=== PATIENT | female | born 1955 | race Caucasian/White ===

== ENCOUNTER 2024-01-05 10:19 | Outpatient (AMB) | payer OTHER, SELFPAY ==
--- NOTE | 2024-01-05 10:21 | AM.OFFWIN_ITS ---
Intake Vital Signs 01/05/24 10:23 Height 5 ft 2 in Weight 192 lb BMI 35.1 BP 124/82 Blood Pressure Location Lt brachial Position Sitting Pulse 74 Pulse Source Pulse Oximeter Temp 98.4 F Temp Source Oral Pulse Oximetry (%) 98 Oxygen Delivery Method Room Air Intake Visit Reasons: WOOL [employer] LT ankle injury Intake Note: pt here c/o LT ankle injury. Slipped and fell in [employer] yesterday Patient Tobacco Use Status: Never used Tobacco Allergies No Known Allergies [No Known Allergies*] Allergy (Verified 01/05/24 10:21) Do you need a note to return to daycare/school/sports/work: No HPI HPI Comments History of Present Illness Details Patient is a 68-year-old female presents complaining of left ankle pain. She states she slipped on some water in her kitchen last night and fell but was able to immediately get up and walk on the foot with no problem. She states about an hour later it started becoming painful and more swollen. She does state that at her baseline she has bilateral lymphedema. She states this morning it is increasingly more painful and difficult to walk on and she is worried that it is fractured. She fractured her right ankle last year when she slipped on some ice. [facility] Social History Patient Tobacco Use Status: Never used Tobacco Review of Systems Const All systems reviewed & are unremarkable except as noted in HPI and below Physical Exam Vital Signs: Last Vital Signs Temp 98.4 F 01/05/24 10:23 Pulse 74 01/05/24 10:23 BP 124/82 01/05/24 10:23 Pulse Ox 98 01/05/24 10:23 Oxygen Delivery Method Room Air 01/05/24 10:23 BMI result Body Mass Index 35.1 Const General: cooperative, healthy appearing, comfortable and no acute distress Orientation/consciousness: patient oriented x3 Limitations: ambulation with cane HEENT Head: Yes normal to inspection Resp Effort & Inspection: normal respiratory effort and able to speak in complete sentences Neuro General: patient oriented x3 Extrem Left lower extremity: ankle Details: tenderness Location: of the anterior talo fibular ligament, swelling Details: laterally and anteriorly and abnormal ROM Details: pain with active ROM Details: with plantar flexion and pain with passive ROM Details: with plantar flexion; no warmth, no abrasions, no lacerations and no ecchymosis Assessment & Plan Assessment & Plan (1) Left ankle swelling: Code(s): M25.472 - Effusion, left ankle Plan: see below (2) Left ankle pain: Code(s): M25.572 - Pain in left ankle and joints of left foot Qualifiers: Chronicity: acute Qualified Code(s): M25.572 - Pain in left ankle and joints of left foot Plan: see below (3) Moderate left ankle sprain: Code(s): S93.402A - Sprain of unspecified ligament of left ankle, initial encounter Qualifiers: Encounter type: initial encounter Qualified Code(s): S93.402A - Sprain of unspecified ligament of left ankle, initial encounter Plan: see below Plan X-ray appears negative for fracture, wrapped with VALENTIN wrap, recommended she use ice rest and keep it wrapped as much as possible, she was walking well with her cane and the Valentin wrap. Recommended she follow up with her PCP if no improvement in symptoms in the next week or 2 did tell her it could take 3-4 weeks+ to be back at baseline. Orders: Orders XR ankle LT min 3V Today M25.472 - Effusion, left ankle, M25.572 - Pain in left ankle and joints of left foot, S93.402A - Sprain of unspecified ligament of left ankle, initial encounter Coding Level of Care Code New Pt Level 4 (12731) Diagnoses Left ankle swelling M25.472 Acute left ankle pain M25.572 Chronicity: acute Moderate left ankle sprain, initial encounter S93.402A Encounter type: initial encounter
--- OUTSIDE RECORDS SUMMARY | 2024-01-05 10:21 | XMS_ITS | Continuity of Care Document ---
Author Organization [facility] Address [address] [place] [address]- Care Team Providers Care Cardiovascular Surgeon Name Role Phone Solis Roman MD Primary Care Physician [phone] [facility]counter [facility] Date(s): 12/22/21 - 01/21/22 [facility] [address], [place] [address] Allergies, Adverse Reactions, Alerts No Known Allergies Immunizations Given and Recorded Vaccine Date Status Refusal Reason zoster vaccine, inactivated 11/18/21 Recorded zoster vaccine, inactivated 06/23/20 Recorded influenza virus vaccine, inactivated 04/19/21 Josué rded influenza virus vaccine, inactivated 1 05/03/19 Gi serafin influenza virus vaccine, inactivated 2 03/09/18 Gi serafin influenza virus vaccine, inactivated 03/10/16 Josué rded SARS-CoV-2 (COVID-19) mRNA BNT-162b2 vac 04/19/21 Recorded SARS-CoV-2 (COVID-19) mRNA-1273 vaccine 09/19/20 G iven SARS-CoV-2 (COVID-19) mRNA-1273 vaccine 08/22/20 G iven pneumococcal 23-valent vaccine 3 04/25/20 Given Influenza Virus Vaccine (oldterm) 03/20/20 Recorde d pneumococcal 13-valent vaccine 03/09/18 Given tetanus/diphtheria/pertussis, acel(Tdap) 4 12/23/16 Given 1Result Comment: [id number] 2Result Comment: [03/09/2018] [id number] 3Result Comment: [id number] 4Result Comment: [12/23/2016] given without incident.....vs Medications acetaminophen 325 mg oral tablet 650 mg, By Mouth, Every 6 hours, May take OTC follow directions on bottle not to exceed 4000 mg/day, Refills 0, Maintenance, 05/08/20 7:54:00 EST, Partial fill upon patient request Start Date: 05/08/20 Status: Ordered cevimeline 30 mg oral capsule 1 capsule = 30 mg, By Mouth, 3 times a day, PRN Other, dry mouth, 0 Refills, Maintenance, 08/09/14 15:13:58 EST Start Date: 08/09/14 Status: Ordered Compression Stockings See Instructions, # 2 each, Refills 3, Tot. Refills 3, Maintenance, Medication: _ Support stockings-Thigh High Custom CC2 Compression factor 30-40 Diagnose lymphoedema, 04/17/21 22:13:00 EDT, Supply,160, cm, 05/09/20 16:02:00 EST, Height, 86.5, kg, 1... Start Date: 04/17/21 Status: Ordered Controlled substance agreement Controlled substance agreement, See Instructions, # 1 each, Refills 0, Tot. Refills 0, Maintenance,controlled substance agreement signed 08/30/14; preferred pharm:[facility]. dx: failed back sydrome, 08/30/14 10:48:33, Compound Start Date: 08/30/14 Status: Ordered doxepin 150 mg oral capsule 1 capsule, By Mouth, Daily at bedtime, # 90 capsule, 3 Refills, [id number], 160, cm, 06/22/21 15:54:00 EST, Height, 86.5, kg, 05/07/20 6:28:00 EST, Dry Weight Start Date: 07/21/21 Status: Ordered duloxetine 60 mg oral enteric coated capsule 1 capsule, By Mouth, Daily, # 90 capsule, 3 Refills, [id number], 160, cm, 08/31/21 15:19:00 EDT, Height, 86.5, kg, 05/07/20 6:28:00 EST, Dry Weight Start Date: 10/30/21 Status: Ordered gabapentin 800 mg oral tablet 1 tablet = 800 mg, By Mouth, 3 times a day, # 90 tablet, 11 Refills, Maintenance, 10/05/21 12:46:00EDT, Tablet, [facility]/pharmacy #[id number], Partial fill upon patient request if the prescription is for a schedule II opioid drug., 160, cm, 08/31/21 15:19:00 ED... Start Date: 10/05/21 Status: Ordered hydrALAZINE 25 mg oral tablet 25 mg, 1, tablet, By Mouth, 2 times a day, # 60 tablet, Refills 11, Tot. Refills 11, Maintenance, 08/03/21 14:23:00 EST, Route to Pharmacy Electronically, [facility]/pharmacy #[id number], Partial fill upon patient request if the prescription is for a schedule II o... Start Date: 08/03/21 Status: Ordered hydrochlorothiazide-triamterene 25 mg-37.5 mg oral capsule 1 capsule, By Mouth, Daily, # 30 capsule, 11 Refills, Maintenance, 06/22/21 16:39:00 EST, Capsule, [facility]/pharmacy #[id number], d/c hydrochlorothiazide, 1 capsule By Mouth Daily, 160, cm, 06/22/21 15:54:00 EST, Height, 86.5, kg, 05/07/20 6:28:00 EST, Dry Weight Start Date: 06/22/21 Status: Ordered Lymphedema clinic referral Lymphedema clinic referral, See Instructions, # 1 each, Refills 0, Tot. Refills 0, Maintenance, Please eval and treat for bilateral lower extremity edema, 01/25/14 16:02:15, Compound Start Date: 01/25/14 Status: Ordered Metoprolol Succinate ER 50 mg oral tablet, extended release 1 tablet, By Mouth, Daily, # 90 tablet, 3 Refills, Maintenance, 06/18/21 14:42:00 EST, [facility]/pharmacy#[id number], 160, cm, 06/18/21 14:17:00 EST, Height, 86.5, kg, 05/07/20 6:28:00 EST, Dry Weight Start Date: 06/18/21 Status: Ordered tiZANidine 2 mg oral tablet 4 mg, 2, tablet, By Mouth, Daily at bedtime, # 180 tablet, Refills 3, Tot. Refills 3, Maintenance, 01/19/22 11:02:00 EDT, Route to Pharmacy Electronically, [facility]/pharmacy #[id number], 160, cm, 08/31/21 15:19:00 EDT, Height, 86.5, kg, 05/07/20 6:28:00 EST, Dry... Start Date: 01/19/22 Stop Date: 01/14/23 Status: Ordered traZODone 50 mg oral tablet See Instructions, TAKE 1 TABLET BY MOUTH EVERYDAY AT BEDTIME, # 90 tablet, Refills 3, Tot. Refills 3, Maintenance, 08/03/21 14:24:00 EST, Instructions Replace Required Details, Route to Pharmacy Electronically, [facility]/pharmacy #[id number], 160, cm, 08/03/21 14... Start Date: 08/03/21 Status: Ordered valsartan 320 mg oral tablet 1 tablet = 320 mg, By Mouth, Daily, # 90 tablet, 3 Refills, Maintenance, 06/18/21 14:40:00 EST, Tablet, [facility]/pharmacy #[id number], this is a n inrease in dosage, 160, cm, 06/18/21 14:17:00 EST, Height, 86.5, kg, 05/07/20 6:28:00 EST, Dry Weight Start Date: 06/18/21 Status: Ordered Problem List Condition Effective Dates Status Health Status Inform ant Abdominal pain(Confirmed) Active Acute radial nerve palsy of right upper extremity also has moderate CTS(Confirmed) 01/05/17 Active Age-related macular degeneration(Confirmed) Active Anxiety(Confirmed) Active Knee pain(Confirmed) Active Atrial flutter s/p ablation 09/16/17(Confirmed) 09/17/17 Active Sleep-related hypoventilation(Confirmed) Active Chronic rhinitis allergic rh initis and hyperactive airways(Confirmed) 05/18/20 Active Constipation(Confirmed) Active DVT, lower extremity peerone al marysol provoked(Confirmed) 09/01/18 Active Macular degeneration of both eyes(Confirmed) Active Depression(Confirmed) Active Somnolence(Confirmed) 1 Active Drug therapy(Confirmed) Active Edema(Confirmed) Active Ex-cigarette smoker(Confirmed) Active Myofascial pain, diffuse(Confirmed) Active Limitation due to disability(Confirmed) 2 Active Drug or alcohol risk assessm ent or counseling(Confirmed) 3 Active S/p ablation of atrial flutter(Confirmed) 09/07/17 Active History of total knee replac ement, left(Confirmed) 4 05/31/13 Active History of macular degeneration(Confirmed) Active S/P tonsillectomy and adenoidectomy(Confirmed) Active Headache, chronic daily(Confirmed) Active History of lumbar spine surg filomena s/p lumbar decompression(Confirmed) 09/13/19 Active Status post shoulder surgery(Confirmed) 5 09/24/08 Active Hypertension(Confirmed) Active Hypogammaglobulinemia gets m onthly infusions(Confirmed) Active Lack of adequate sleep(Confirmed) Active Neck pain(Confirmed) Active Obese class I(Confirmed) Active Obesity(Confirmed) Active Obstructive sleep apnea(Confirmed) 6 Active Buttock pain, left(Confirmed) Active Atrial flutter, paroxysmal(Confirmed) Active Pes planus(Confirmed) Active Failed back syndrome(Confirmed) 7 Active Failed back surgical syndrome(Confirmed) 8 Active Urinary retention(Confirmed) Active Moderate somatic symptom dis order with predominant pain(Confirmed) Active Lumbar spinal stenosis L2-3(Confirmed) 10/07/17 Active Status post arthroscopy of shoulder(Confirmed) Active Vaginal pain(Confirmed) Active Venous (Peripheral) Insuffic iency, Unspecified(Confirmed) Active 1initial [place]: 17 on 08/09/14 2initial Oswestry Disability Index: 57% ( severe disability ) on 08/09/14; initial Neck Disability Index: 40% on 08/16/14 3SOAPP-R: 19 ON 08/09/14 4On 05/31/2013 underwent left total knee arthroplasty with computer navigation for osteoarthritis, left knee by Luis Higgins M.D. at [facility]. 5On 09/24/2008 underwent 1. Open decompression right shoulder (acromioplasty, release of coracoacromial ligament). 2. Distal clavicle excision. 3. Repair of massive markedly retracted posterosuperior cuff tear. 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 at [facility]. 6Polysomnogram performed on 08/17/2014 at [facility] revealed 1. Obstructive sleep apnea, moderate 2. Hypoventilation with sleep 7Surgical History Procedure/Surgical Profile 3 level Posterior fusion (84595) in 2013 at 58 Years. Spinal decompression (23459) in 2008 at 53 Years. Laminectomy with exploration and/or decompression of spinal cord and/or cauda equina, without facetectomy, foraminotomy or discectomy (eg, spinal stenosis), 1 or 2 vertebral segments; lumbar, except for spondylolisthesis (18604) in 1996 at 41 Years. SCS trial at [facility] complicated by early lead migration. Never had adequate trial. 8Surgical History Procedure/Surgical Profile 3 level Posterior fusion (21359) in 2013 at 58 Years. Spinal decompression (77876) in 2008 at 53 Years. Laminectomy with exploration and/or decompression of spinal cord and/or cauda equina, without facetectomy, foraminotomy or discectomy (eg, spinal stenosis), 1 or 2 vertebral segments; lumbar, except for spondylolisthesis (73405) in 1996 at 41 Years. SCS trial at [facility] complicated by early lead migration. Never had adequate trial. Social History Social History Type Response Smoking Status Former smoker, quit more than 30 days ago entered on: 12/01/18 Sex
--- OUTSIDE RECORDS SUMMARY | 2024-01-05 10:21 | XMS_ITS | Continuity of Care Document ---
Author Organization [facility] Address [address] [place] [address]- Care Team Providers Care Art Editor Name Role Phone Solis Roman MD Primary Care Physician [facility]): 03/21[facility]23 - 04/20/23 [facility] [address] [place], [place] [address] Allergies, Adverse Reactions, Alerts No Known Allergies Immunizations Given and Recorded Vaccine Date Status Refusal Reason influenza virus vaccine, inactivated 1 03/16/23 Re corded influenza virus vaccine, inactivated 04/08/22 Josué rded influenza virus vaccine, inactivated 04/19/21 Josué rded influenza virus vaccine, inactivated 2 05/03/19 Gi serafin influenza virus vaccine, inactivated 3 03/09/18 Gi serafin influenza virus vaccine, inactivated 03/10/16 Josué rded SARS-CoV-2 mRNA ([id number]) vax 04/08/22 Recorded zoster vaccine, inactivated 11/18/21 Recorded zoster vaccine, inactivated 06/23/20 Recorded SARS-CoV-2 (COVID-19) mRNA BNT-162b2 vac 04/19/21 Recorded SARS-CoV-2 (COVID-19) mRNA-1273 vaccine 09/19/20 G iven SARS-CoV-2 (COVID-19) mRNA-1273 vaccine 08/22/20 G iven pneumococcal 23-valent vaccine 4 04/25/20 Given Influenza Virus Vaccine (oldterm) 03/20/20 Recorde d pneumococcal 13-valent vaccine 03/09/18 Given tetanus/diphtheria/pertussis, acel(Tdap) 5 12/23/16 Given 1Result Comment: [facility] 2Result Comment: [id number] 3Result Comment: [03/09/2018] [id number] 4Result Comment: [id number] 5Result Comment: [12/23/2016] given without incident.....vs Medications acetaminophen [...] Custom CC2 Compression factor 30-40 Diagnose lymphoedema, 03/11/23 15:00:00 EDT, Supply Start Date: 03/11/23 Status: Ordered Controlled substance agreement Controlled substance agreement, See Instructions, # 1 each, Refills 0, Tot. Refills 0, Maintenance,controlled substance agreement signed 08/30/14; preferred pharm:[facility]. dx: failed back sydrome, 08/30/14 10:48:33, Compound Start Date: 08/30/14 Status: Ordered doxepin 150 mg oral capsule 1 capsule, By Mouth, Daily at bedtime, # 90 capsule, 3 Refills, 08/23/22 11:39:00 EST, [facility]/pharmacy#[id number], 160, cm, 08/31/21 15:19:00 EDT, Height Start Date: 08/23/22 Status: Ordered duloxetine 60 mg oral enteric coated capsule 1 capsule, By Mouth, Daily, REFILLS GOOD THRU 07/2023, # 90 capsule, 3 Refills, 07/27/22 15:27:00 EST, [facility]/pharmacy #[id number], 160, cm, 08/31/21 15:19:00 EDT, Height Start Date: 07/27/22 Status: Ordered gabapentin 800 mg oral tablet 1 tablet = 800 mg, By Mouth, 3 times a day, # 90 tablet, 11 Refills, Maintenance, 11/05/22 13:00:00EDT, Tablet, [facility]/pharmacy #[id number], Partial fill upon patient request if the prescription is for a schedule II opioid drug., 160, cm, 08/31/21 15:19:00 ED... Start Date: 11/05/22 Status: Ordered hydrALAZINE 25 mg oral tablet 25 mg, 1, tablet, By Mouth, 2 times a day, # 60 tablet, Refills 11, Tot. Refills 11, Maintenance, 08/13/22 9:21:00 EST, Route to Pharmacy Electronically, [facility]/pharmacy #[id number], Partial fill upon patientrequest if the prescription is for a schedule II op... Start Date: 08/13/22 Status: Ordered hydrochlorothiazide-triamterene 25 mg-37.5 mg oral capsule 1 capsule, By Mouth, Daily, # 90 capsule, 1 Refills, Maintenance, 02/02/23 9:30:00 EDT, [facility]/pharmacy #[id number], 90, 1 capsule By Mouth Daily, 160, cm, 08/31/21 15:19:00 EDT, Height Start Date: 02/02/23 Status: Ordered Lymphedema clinic referral Lymphedema clinic referral, See Instructions, # 1 each, Refills 0, Tot. Refills 0, Maintenance, Please eval and treat for bilateral lower extremity edema, 01/25/14 16:02:15, Compound Start Date: 01/25/14 Status: Ordered Metoprolol Succinate ER 50 mg oral tablet, extended release 1 tablet, By Mouth, Daily, # 90 tablet, 3 Refills, Maintenance, 09/21/22 13:56:00 EDT, [facility]/pharmacy#[id number], 160, cm, 08/31/21 15:19:00 EDT, Height Start Date: 09/21/22 Status: Ordered tiZANidine 2 mg oral tablet 4 mg, 2, tablet, By Mouth, Daily at bedtime, # 180 tablet, Refills 3, Tot. Refills 3, Maintenance, 03/15/23 12:53:00 EDT, Route to Pharmacy Electronically, [facility]/pharmacy #[id number], 160, cm, 08/31/21 15:19:00 EDT, Height Start Date: 03/15/23 Stop Date: 03/09/24 Status: Ordered traZODone 50 mg oral tablet See Instructions, TAKE 1 TABLET BY MOUTH EVERYDAY AT BEDTIME, # 90 tablet, Refills 0, Tot. Refills 0, Maintenance, 02/07/23 10:55:00 EDT, Instructions Replace Required Details, Route to Pharmacy Electronically, [facility]/pharmacy #[id number], 160, cm, 08/31/21 15... Start Date: 02/07/23 Status: Ordered valsartan 320 mg oral tablet 1 tablet, By Mouth, Daily, # 90 tablet, 1 Refills, Maintenance, 01/03/23 11:13:00 EDT, [facility]/pharmacy#[id number], 160, cm, 08/31/21 15:19:00 EDT, Height Start Date: 01/03/23 Status: Ordered Problem List Condition Confirmation Course Effective Dates Status Health Status Informant Abdominal pain Confirmed Active Acute radial nerve palsy of right upper extremity also has moderate CTS Confirmed 01/05/17 Active Age-related macular degeneration Confirmed Active Anxiety Confirmed Active Knee pain Confirmed Active Atrial flutter s/p ablation 09/16/17 Confirmed 09/17/17 Active Sleep-related hypoventilation Confirmed Active Chronic rhinitis allergic rhinitis and hyperactive airways Confirmed 05/18/20 Active Constipation Confirmed Active DVT, lower extremity peeroneal marysol provoked Confirmed 09/01/18 Active Macular degeneration of both eyes Confirmed Active Depression Confirmed Active Somnolence 1 Confirmed Active Drug therapy Confirmed Active Edema Confirmed Active Ex-cigarette smoker Confirmed Active Myofascial pain, diffuse Confirmed Active Limitation due to disability 2 Confirmed Active Drug or alcohol risk assessment or counseling 3 Confirmed Active S/p ablation of atrial flutter Confirmed 09/07/17 Active History of total knee replacement, left 4 Confirmed 05/31/13 Active History of macular degeneration Confirmed Active S/P tonsillectomy and adenoidectomy Confirmed Active Headache, chronic daily Confirmed Active History of lumbar spine surgery s/p lumbar decompression Confirmed 09/13/19 Active Status post shoulder surgery 5 Confirmed 09/24/08 Active Hypertension Confirmed Active Hypogammaglobulinemia gets monthly infusions Confirmed Active Lack of adequate sleep Confirmed Active Neck pain Confirmed Active Obese class I Confirmed Active Obesity Confirmed Active Obstructive sleep apnea 6 Confirmed Active Buttock pain, left Confirmed Active Atrial flutter, paroxysmal Confirmed Active Pes planus Confirmed Active Failed back syndrome 7 Confirmed Active Failed back surgical syndrome 8 Confirmed Active Urinary retention Confirmed Active Moderate somatic symptom disorder with predominant pain Confirmed Active Lumbar spinal stenosis L2-3 Confirmed 10/07/17 Active Status post arthroscopy of shoulder Confirmed Active Vaginal pain Confirmed Active Venous (Peripheral) Insufficiency, Unspecified Confirmed Active 1initial [place]: 17 on 08/09/14 2initial Oswestry Disability Index: 57% ( severe disability ) on 08/09/14; initial Neck Disability Index: 40% on 08/16/14 3SOAPP-R: 19 ON 08/09/14 4On 05/31/2013 underwent left total knee arthroplasty with computer navigation for osteoarthritis, left knee by Luis Higgins M.D. at [facility]. 5On 09/24/2008 underwent 1. Open decompression right shoulder (acromioplasty, release of coracoacromial ligament). 2. Distal clavicle excision. 3. Repair of massive markedly retracted posterosuperior cuff tear. 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 at [facility]. 6Polysomnogram performed on 08/17/2014 at [facility] revealed 1. Obstructive sleep apnea, moderate 2. Hypoventilation with sleep 7Surgical History Procedure/Surgical Profile 3 level Posterior fusion (80736) in 2013 at 58 Years. Spinal decompression (08252) in 2008 at 53 Years. Laminectomy with exploration and/or decompression of spinal cord and/or cauda equina, without facetectomy, foraminotomy or discectomy (eg, spinal stenosis), 1 or 2 vertebral segments; lumbar, except for spondylolisthesis (29124) in 1996 at 41 Years. SCS trial at [facility] complicated by early lead migration. Never had adequate trial. 8Surgical History Procedure/Surgical Profile 3 level Posterior fusion (06448) in 2013 at 58 Years. Spinal decompression (46722) in 2008 at 53 Years. Laminectomy with exploration and/or decompression of spinal cord and/or cauda equina, without facetectomy, foraminotomy or discectomy (eg, spinal stenosis), 1 or 2 vertebral segments; lumbar, except for spondylolisthesis (32353) in 1996 at 41 Years. SCS trial at [facility] complicated by early lead migration. Never had adequate trial. Social History Social History Type Response Smoking Status Former smoker, quit more than 30 days ago entered on: 12/01/18 Sex Patient Care team information Care Team Personnel Name: Luis Combs RN Position: [facility] RN Member Role: Primary Care Nurse Name: Solis Roman MD Position: [facility] Physician - Primary Care Member Role: PCP Address: Address: [address] [place] [address] Adult [place] [address]- Name: Aziza ZNEDEJAS, Loni Martinez Position: [facility] RN Member Role: Primary Care Nurse Name: Tk Mendoza RN Position: [facility] RN Member Role: Primary Care Nurse Care Team Related Persons Name: RANDY CAPUTO Address: [place] [address] Name: ERIN CHATTERJEE Address: [address] [place] [address] Name: CRISTA WEST Address: home [address] [place] [id number]
--- OUTSIDE RECORDS SUMMARY | 2024-01-05 10:21 | XMS_ITS | Continuity of Care Document ---
Author Organization [facility] Address [address] [place] [address]- Care Team Providers Care Human Services Manager Name Role Phone Solis Roman MD Primary Care Physician Encounter [facility] [place] Date(s): 10/06/23 - 10/13/23 [facility] [address] [place], [place] [address] Attending Physician: Solis Roman MD Allergies, Adverse Reactions, Alerts No Known Allergies Immunizations Given and Recorded Vaccine Date Status Refusal Reason SARS-CoV-2(COVID-19)mRNA-LNP vac([id number]) 04/11/23 Recorded influenza virus vaccine, inactivated 1 03/16/23 Re corded influenza virus vaccine, inactivated 04/08/22 Josué rded influenza virus vaccine, inactivated 04/19/21 Josué rded influenza virus vaccine, inactivated 2 05/03/19 Gi serafin influenza virus vaccine, inactivated 3 03/09/18 Gi serafin influenza virus vaccine, inactivated 03/10/16 Josué rded SARS-CoV-2 mRNA ([id number]) vax 04/08/22 Recorded zoster vaccine, inactivated 11/18/21 Recorded zoster vaccine, inactivated 06/23/20 Recorded SARS-CoV-2 (COVID-19) mRNA BNT-162b2 vac 04/19/21 Recorded SARS-CoV-2 (COVID-19) mRNA-1273 vaccine 09/19/20 G iven SARS-CoV-2 (COVID-19) mRNA-1273 vaccine 08/22/20 G iven pneumococcal 23-valent vaccine 4 04/25/20 Given Influenza Virus Vaccine (oldterm) 03/20/20 Recorde d pneumococcal 13-valent vaccine 03/09/18 Given tetanus/diphtheria/pertussis, acel(Tdap) 5 12/23/16 Given 1Result Comment: AMELIA 2Result Comment: [id number] 3Result Comment: [03/09/2018] [id number] 4Result Comment: [id number] 5Result Comment: [12/23/2016] given without incident.....vs Medications acetaminophen 325 mg oral tablet 650 mg, By Mouth, Every 6 hours, May take OTC follow directions on bottle not to exceed 3000 mg/day, Refills 0, Maintenance, 05/08/20 7:54:00 EST, Partial fill upon patient request Start Date: 05/08/20 Status: Ordered cevimeline 30 mg oral capsule 1 capsule = 30 mg, By Mouth, 3 times a day, PRN Other, dry mouth, 0 Refills, Maintenance, 08/09/14 15:13:58 EST Start Date: 08/09/14 Status: Ordered doxepin 100 mg oral capsule 1 capsule = 100 mg, By Mouth, Daily at bedtime, # 30 capsule, 2 Refills, Maintenance, 10/06/23 8:33:00 EDT, [facility]/pharmacy #[id number], Partial fill upon patient request if the prescription is for a scheduleII opioid drug., 157, cm, 10/06/23 8:12:00 EDT, Hei... Start Date: 10/06/23 Status: Ordered duloxetine 60 mg oral enteric coated capsule 1 capsule, By Mouth, Daily, REFILLS GOOD THRU 07/2023, # 90 capsule, 3 Refills, 07/26/23 10:44:00 EST, [facility]/pharmacy #[id number], 157, cm, 07/26/23 10:22:00 EST, Height, 86, kg, 05/10/23 11:11:00 EST, Dry Weight Start Date: 07/26/23 Status: Ordered fluticasone 50 mcg/inh nasal spray 2 sprays = 100 mcg, Nares, Both, Daily in AM, # 16 Gm, 0 Refills, Maintenance, 08/26/23 8:53:00 EST, [place], Partial fill upon patient request if the prescription is for a schedule II opioid drug. Start Date: 08/26/23 Status: Ordered gabapentin 800 mg oral tablet 1 tablet = 800 mg, By Mouth, 3 times a day, # 90 tablet, 0 Refills, Maintenance, 05/05/23 13:19:00 EST, Tablet, Partial fill upon patient request if the prescription is for a schedule II opioid drug. Start Date: 05/05/23 Status: Ordered Gamunex = 300 mg/kg, IV Infusion, every 4 weeks, 0 Refills, Maintenance, 05/05/23 13:20:00 EST, Partial fill upon patient request if the prescription is for a schedule II opioid drug. Start Date: 05/05/23 Status: Ordered hydrALAZINE 50 mg oral tablet 1 tablet = 50 mg, By Mouth, 2 times a day, # 180 tablet, 3 Refills, Maintenance, 07/26/23 10:42:00 EST, Tablet, [facility]/pharmacy #[id number], Partial fill upon patient request if the prescription is for a schedule II opioid drug., 157, cm, 07/26/23 10:22:00 EST... Start Date: 07/26/23 Stop Date: 07/20/24 Status: Ordered hydrochlorothiazide-triamterene 25 mg-37.5 mg oral capsule 1 capsule, By Mouth, Daily, # 90 capsule, 3 Refills, Maintenance, 07/26/23 10:42:00 EST, [id number], 90, 1 capsule By Mouth Daily, 157, cm, 07/26/23 10:22:00 EST, Height, 86, kg, 05/10/23 11:11:00 EST, Dry Weight Start Date: 07/26/23 Status: Ordered Metoprolol Succinate ER 25 mg oral tablet, extended release 1 tablet = 25 mg, By Mouth, Daily, take with the 50 mgs tablet of metoprolol to = 75 mgs, # 90 tablet, 3 Refills, Maintenance, 08/26/23 8:52:00 EST, ER Tablet, [id number], Partial fill upon patient request if the prescription is for a... Start Date: 08/26/23 Status: Ordered Metoprolol Succinate ER 50 mg oral tablet, extended release 1 tablet, By Mouth, Daily, # 90 tablet, 3 Refills, Maintenance, 07/26/23 10:44:00 EST, [id number], 157, cm, 07/26/23 10:22:00 EST, Height, 86, kg, 05/10/23 11:11:00 EST, Dry Weight Start Date: 07/26/23 Status: Ordered tiZANidine 2 mg oral tablet 4 mg, 2, tablet, By Mouth, Daily at bedtime, # 180 tablet, Refills 3, Tot. Refills 3, Maintenance, 10/06/23 8:32:00 EDT, Do Not Route Start Date: 10/06/23 Stop Date: 09/30/24 Status: Ordered traZODone 50 mg oral tablet 1, tablet, By Mouth, Daily at bedtime, # 90 tablet, Refills 3, Maintenance, 05/02/23 21:24:00 EST, Route to Pharmacy Electronically, [id number], 160, cm, 04/22/23 9:05:00 EDT, Height Start Date: 05/02/23 Status: Ordered valsartan 320 mg oral tablet See Instructions, TAKE 1 TABLET BY MOUTH EVERY DAY, # 90 tablet, 3 Refills, Maintenance, 09/26/23 23:22:00 EDT, [facility]/pharmacy #[id number], 157, cm, 08/26/23 8:33:00 EST, Height, 86, kg, 05/10/23 11:11:00 EST, Dry Weight Start Date: 09/26/23 Status: Ordered Problem List Condition Confirmation Course [...] sleep Confirmed Active Neck pain Confirmed Active Obesity Confirmed Active Obstructive sleep apnea 6 Confirmed Active Osteoarthritis of hip, left LEFT THR APRIL 2023 Confirmed 05/12/23 Active Buttock pain, left Confirmed Active Atrial flutter, paroxysmal Confirmed Active Pes planus Confirmed Active Failed back syndrome 7 Confirmed Active Failed back surgical syndrome 8 Confirmed Active Urinary retention Confirmed Active Severe obesity (BMI 35.0-39.9) with comorbidity Confirmed Active Moderate somatic symptom disorder with predominant pain Confirmed Active Lumbar spinal stenosis L2-3 Confirmed 10/07/17 Active Status post arthroscopy of shoulder Confirmed Active Vaginal pain Confirmed Active Venous (Peripheral) Insufficiency, Unspecified Confirmed Active 1initial [place]: 17 on 08/09/14 2initial Oswestry Disability Index: 57% ( severe disability ) on 08/09/14; initial Neck Disability Index: 40% on 08/16/14 3SOAPP-R: 19 ON 08/09/14 4On 05/31/2013 underwent left total knee arthroplasty with computer navigation for osteoarthritis, left knee by Luis Higgins M.D. at [facility]. 5On 09/24/2008 underwent 1. Open decompression right shoulder (acromioplasty, release of coracoacromial ligament). 2. Distal clavicle excision. 3. Repair of massive markedly retracted posterosuperior cuff tear. 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 at [facility]. 6Polysomnogram performed on 08/17/2014 at [facility] revealed 1. Obstructive sleep apnea, moderate 2. Hypoventilation with sleep 7Surgical History Procedure/Surgical Profile 3 level Posterior fusion (91402) in 2013 at 58 Years. Spinal decompression (45294) in 2008 at 53 Years. Laminectomy with exploration and/or decompression of spinal cord and/or cauda equina, without facetectomy, foraminotomy or discectomy (eg, spinal stenosis), 1 or 2 vertebral segments; lumbar, except for spondylolisthesis (26809) in 1996 at 41 Years. SCS trial at [facility] complicated by early lead migration. Never had adequate trial. 8Surgical History Procedure/Surgical Profile 3 level Posterior fusion (61692) in 2014 at 58 Years. Spinal decompression (74346) in 2008 at 53 Years. Laminectomy with exploration and/or decompression of spinal cord and/or cauda equina, without facetectomy, foraminotomy or discectomy (eg, spinal stenosis), 1 or 2 vertebral segments; lumbar, except for spondylolisthesis (84039) in 1996 at 41 Years. SCS trial at [facility] complicated by early lead migration. Never had adequate trial. Vital Signs Most recent to oldest [Reference Range]: 1 Height 157 cm (10/06/23 8:12 AM) Weight 87.5 kg (10/06/23 8:12 AM) Oxygen Saturation [94-100 %] 97 % (10/06/23 8:12 AM) Pulse Rate [55-90 bpm] 70 bpm (10/06/23 8:12 AM) Body Mass Index [18.5-24.99 kg/m2] 35.5 kg/m2 *>HHI* (10/06/23 8:12 AM) Blood Pressure [90-138/55-84 mm Hg] 124/ 70mm Hg (10/06/23 8:12 AM) Mode of Delivery (Oxygen) Room air (10/06/23 8:12 AM) Blood pressure sites Arm, left (10/06/23 8:12 AM) Weight Obtained Via Standing scale (10/06/23 8:12 AM) Social History Social History Type Response Smoking Status Former smoker, quit more than 30 days ago entered on: 12/01/18 Sex Patient Care team information Care Team Personnel Name: Luis Combs RN Position: [facility] RN Member Role: Primary Care Nurse Name: Solis Roman MD Position: [facility] Physician - Primary Care Member Role: PCP Address: Address: [address] [place] [address] Adult [facility] Pediatric Medicine [address] Name: Iris Al RN Position: S RN Member Role: Primary Care Nurse Name: Stacie Guardado RN Position: S RN Member Role: Primary Care Nurse Name: Tk Mendoza RN Position: S RN Member Role: Primary Care Nurse Care Team Related Persons Name: RANDY CAPUTO Address: [place] [address] Name: ERIN CHATTERJEE Address: home [address] [place] [address] Name: CRISTA WEST Address: home [address] [place] [address]
--- OUTSIDE RECORDS SUMMARY | 2024-01-05 10:21 | XMS_ITS | Continuity of Care Document ---
Author Organization [facility] Address [address] [place] [address]- Care Team Providers Care Dye Feeder Name Role Phone Solis Roman MD Primary Care Physician Encounter [facility] Date(s): 03/11/23 - 04/10/23 [facility] [address] [place], [place] [address] Allergies, Adverse Reactions, Alerts No Known Allergies Immunizations Given and Recorded Vaccine Date Status Refusal Reason influenza virus vaccine, inactivated 1 03/16/23 Re corded influenza virus vaccine, inactivated 04/08/22 Josué rded influenza virus vaccine, inactivated 04/19/21 Josué rded influenza virus vaccine, inactivated 2 05/03/19 Gi serafin influenza virus vaccine, inactivated 3 03/09/18 Gi serafin influenza virus vaccine, inactivated 03/10/16 Josué rded SARS-CoV-2 mRNA ([id number]) vax 04/08/22 Recorded zoster vaccine, inactivated 11/18/21 Recorded zoster vaccine, inactivated 06/23/20 Recorded SARS-CoV-2 (COVID-19) mRNA BNT-162b2 vac 04/19/21 Recorded SARS-CoV-2 (COVID-19) mRNA-1273 vaccine 09/19/20 G iven SARS-CoV-2 (COVID-19) mRNA-1273 vaccine 08/22/20 G iven pneumococcal 23-valent vaccine 4 04/25/20 Given Influenza Virus Vaccine (oldterm) 03/20/20 Recorde d pneumococcal 13-valent vaccine 03/09/18 Given tetanus/diphtheria/pertussis, acel(Tdap) 5 12/23/16 Given 1Result Comment: [facility] 2Result Comment: [id number] 3Result Comment: [03/09/2018] [id number] 4Result Comment: [id number] 5Result Comment: [12/23/2016] given without incident.....vs Medications [...] 0, Maintenance,controlled substance agreement signed 08/30/14; preferred pharm:[facility]. dx: failed back sydrome, 08/30/14 10:48:33, Compound Start Date: 08/30/14 Status: Ordered doxepin 150 mg oral capsule 1 capsule, By Mouth, Daily at bedtime, # 90 capsule, 3 Refills, 08/23/22 11:39:00 EST, [facility]/pharmacy#[id number], 160, cm, 08/31/21 15:19:00 EDT, Height Start Date: 08/23/22 Status: Ordered duloxetine 60 mg oral enteric coated capsule 1 capsule, By Mouth, Daily, REFILLS GOOD THRU 07/2023, # 90 capsule, 3 Refills, 07/27/22 15:27:00 EST, [facility]/pharmacy #[id number], 160, cm, 08/31/21 15:19:00 EDT, Height Start Date: 07/27/22 Status: Ordered gabapentin 800 mg oral tablet 1 tablet = 800 mg, By Mouth, 3 times a day, # 90 tablet, 11 Refills, Maintenance, 11/05/22 13:00:00EDT, Tablet, [id number], Partial fill upon patient request if the prescription is for a schedule II opioid drug., 160, cm, 08/31/21 15:19:00 ED... Start Date: 11/05/22 Status: Ordered hydrALAZINE 25 mg oral tablet 25 mg, 1, tablet, By Mouth, 2 times a day, # 60 tablet, Refills 11, Tot. Refills 11, Maintenance, 08/13/22 9:21:00 EST, Route to Pharmacy Electronically, [facility]/pharmacy #[id number], Partial fill upon patientrequest if the prescription is for a schedule II op... Start Date: 08/13/22 Status: Ordered hydrochlorothiazide-triamterene 25 mg-37.5 mg oral capsule 1 capsule, By Mouth, Daily, # 90 capsule, 1 Refills, Maintenance, 02/02/23 9:30:00 EDT, [facility]/pharmacy #[id number], 90, 1 capsule By Mouth Daily, [...] tablet, 3 Refills, Maintenance, 09/21/22 13:56:00 EDT, [facility]/pharmacy#2339, 160, cm, 08/31/21 15:19:00 EDT, Height Start Date: 09/21/22 Status: Ordered tiZANidine 2 mg oral tablet 4 mg, 2, tablet, By Mouth, Daily at bedtime, # 180 tablet, Refills 3, Tot. Refills 3, Maintenance, 03/15/23 12:53:00 EDT, Route to Pharmacy Electronically, [facility]/pharmacy #[id number], 160, cm, 08/31/21 15:19:00 EDT, Height Start Date: 03/15/23 Stop Date: 03/09/24 Status: Ordered traZODone 50 mg oral tablet See Instructions, TAKE 1 TABLET BY MOUTH EVERYDAY AT BEDTIME, # 90 tablet, Refills 0, Tot. Refills 0, Maintenance, 02/07/23 10:55:00 EDT, Instructions Replace Required Details, Route to Pharmacy Electronically, [facility]/pharmacy #[id number], 160, cm, 08/31/21 15... Start Date: 02/07/23 Status: Ordered valsartan 320 mg oral tablet 1 tablet, By Mouth, Daily, # 90 tablet, 1 Refills, Maintenance, 01/03/23 11:13:00 EDT, [facility]/pharmacy#[id number], 160, cm, 08/31/21 15:19:00 EDT, Height Start [...] Venous (Peripheral) Insufficiency, Unspecified Confirmed Active 1initial [place]: 17 on 08/09/14 2initial Oswestry Disability Index: 57% ( severe disability ) on 08/09/14; initial Neck Disability Index: 40% on 08/16/14 3SOAPP-R: 19 ON 08/09/14 4On 05/31/2013 underwent left total knee arthroplasty with computer navigation for osteoarthritis, left knee by Luis Higgins M.D. at [facility]. 5On 09/24/2008 underwent 1. Open decompression right shoulder (acromioplasty, release of coracoacromial ligament). 2. Distal clavicle excision. 3. Repair of massive markedly retracted posterosuperior cuff tear. 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 at [facility]. 6Polysomnogram performed on 08/17/2014 at [facility] revealed 1. Obstructive sleep apnea, moderate 2. Hypoventilation with sleep 7Surgical History Procedure/Surgical Profile 3 level Posterior fusion (29164) in 2013 at 58 Years. Spinal decompression (19880) in 2008 at 53 Years. Laminectomy with exploration and/or decompression of spinal cord and/or cauda equina, without facetectomy, foraminotomy or discectomy (eg, spinal stenosis), 1 or 2 vertebral segments; lumbar, except for spondylolisthesis (31179) in 1996 at 41 Years. SCS trial at [facility] complicated by early lead migration. Never had adequate trial. 8Surgical History Procedure/Surgical Profile 3 level Posterior fusion (70831) in 2013 at 58 Years. Spinal decompression (62678) in 2008 at 53 Years. Laminectomy with exploration and/or decompression of spinal cord and/or cauda equina, without facetectomy, foraminotomy or discectomy (eg, spinal stenosis), 1 or 2 vertebral segments; lumbar, except for spondylolisthesis (49374) in 1996 at 41 Years. SCS trial at [facility] complicated by early lead migration. Never had adequate trial. Social History Social History Type Response Smoking Status Former smoker, quit more than 30 days ago entered on: 6/14/19 Sex Patient Care team information Care Team Personnel Name: Garret ZENDEJAS, Luis Mckee Position: [facility] RN Member Role: Primary Care Nurse Name: Solis Roman MD Position: [facility] Physician - Primary Care Member Role: PCP Address: Address: [address] [place] [address] Adult [place] [address]- Name: Loni Ervin RN Position: [facility] RN Member Role: Primary Care Nurse Name: Tk Mendoza RN Position: [facility] RN Member Role: Primary Care Nurse Care Team Related Persons Name: PATITORANDY LEMA Address: [place] [address] Name: ERIN CHATTERJEE Address: home [address] [place] [address] Name: CRISTA WEST Address: home [address] [place] [id number]
--- OUTSIDE RECORDS SUMMARY | 2024-01-05 10:21 | XMS_ITS | Continuity of Care Document ---
Author Organization [facility] Address [address] [place] [address]- Care Team Providers Care Mobile Marketing Specialist Name Role Phone Abel OTERO, Solis Li Primary Care Physician Encounter [facility] Date(s): 08/24/21 - 09/23/21 [facility] [address] [place] [address]- Referring Physician: Malissa Bustos Allergies, Adverse Reactions, Alerts No Known Allergies Immunizations Given and Recorded Vaccine Date Status Refusal Reason influenza virus vaccine, inactivated 04/19/21 Josué rded influenza virus vaccine, inactivated 1 05/03/19 Gi serafin influenza virus vaccine, inactivated 2 03/09/18 Gi serafin influenza virus vaccine, inactivated 03/10/16 Josué rded SARS-CoV-2 (COVID-19) mRNA BNT-162b2 vac 04/19/21 Recorded SARS-CoV-2 (COVID-19) mRNA-1273 vaccine 09/19/20 G iven SARS-CoV-2 (COVID-19) mRNA-1273 vaccine 08/22/20 G iven zoster vaccine, inactivated 06/23/20 Recorded pneumococcal 23-valent vaccine 3 04/25/20 Given Influenza Virus Vaccine (oldterm) 03/20/20 Recorde d pneumococcal 13-valent vaccine 03/09/18 Given tetanus/diphtheria/pertussis, acel(Tdap) 4 12/23/16 Given 1Result Comment: [id number] 2Result Comment: [03/09/2018] [id number] 3Result Comment: [id number] 4Result Comment: [12/23/2016] given without incident.....vs Medications [...] 0, Maintenance,controlled substance agreement signed 08/30/14; preferred pharm:[facility] [place]. dx: failed back sydrome, 08/30/14 10:48:33, Compound Start Date: 08/30/14 Status: Ordered doxepin 150 mg oral capsule 1 capsule, By Mouth, Daily at bedtime, # 90 capsule, 3 Refills, [id number], 160, cm, 06/22/21 15:54:00 EST, Height, 86.5, kg, 05/07/20 6:28:00 EST, Dry Weight Start Date: 07/21/21 Status: Ordered duloxetine 60 mg oral enteric coated capsule 1 capsule = 60 mg, By Mouth, Daily, # 30 capsule, 11 Refills, Maintenance, 11/10/20 14:38:00 EDT, Capsule, [facility]/pharmacy #[id number], 160, cm, 05/09/20 16:02:00 EST, Height, 86.5, kg, 05/07/20 6:28:00 EST, Dry Weight Start Date: 11/10/20 Status: Ordered gabapentin 800 mg oral tablet 1 tablet = 800 mg, By Mouth, 3 times a day, # 90 tablet, 11 Refills, Maintenance, 06/06/20 10:19:00EST, Tablet, [facility]/pharmacy #[id number], Partial fill upon patient request if the prescription is for a schedule II opioid drug., 160, cm, 05/09/20 16:02:00 ES... Start Date: 06/06/20 Status: Ordered hydrALAZINE 25 mg oral tablet 25 mg, 1, tablet, By Mouth, 2 times a day, # 60 tablet, Refills 11, Tot. Refills 11, Maintenance, 08/03/21 14:23:00 EST, Route to Pharmacy Electronically, [facility]/pharmacy #[id number], Partial fill upon patient request if the prescription is for a schedule II o... Start Date: 08/03/21 Status: Ordered hydrochlorothiazide-triamterene 25 mg-37.5 mg oral capsule 1 capsule, By Mouth, Daily, # 30 capsule, 11 Refills, Maintenance, 06/22/21 16:39:00 EST, Capsule, [facility]/pharmacy #[id number], d/c hydrochlorothiazide, 1 capsule By Mouth [...] tablet, 3 Refills, Maintenance, 06/18/21 14:42:00 EST, [facility]/pharmacy#2339, 160, cm, 06/18/21 14:17:00 EST, Height, 86.5, kg, 05/07/20 6:28:00 EST, Dry Weight Start Date: 06/18/21 Status: Ordered pantoprazole 40 mg oral delayed release tablet 0 Refills, Maintenance, 06/06/20 10:27:00 EST Start Date: 06/06/20 Status: Ordered tiZANidine 2 mg oral tablet 1, tablet, By Mouth, 2 times a day, # 180 tablet, Refills 3, Tot. Refills 0, Maintenance, 09/11/20 10:05:00 EDT, Route to Pharmacy Electronically, [id number], 160, cm, 05/09/20 16:02:00 EST, Height, 86.5, kg, 05/07/20 6:28:00 EST, Dry Weight Start Date: 09/11/20 Status: Ordered traZODone 50 mg oral tablet See Instructions, TAKE 1 TABLET BY MOUTH EVERYDAY AT BEDTIME, # 90 tablet, Refills 3, Tot. Refills 3, Maintenance, 08/03/21 14:24:00 EST, Instructions Replace Required Details, Route to Pharmacy Electronically, [facility]/pharmacy #[id number], 160, cm, 08/03/21 14... Start Date: 08/03/21 Status: Ordered valsartan 320 mg oral tablet 1 tablet = 320 mg, By Mouth, Daily, # 90 tablet, 3 Refills, Maintenance, 06/18/21 14:40:00 EST, Tablet, [facility]/pharmacy #[id number], this is a n inrease in [...] Venous (Peripheral) Insuffic iency, Unspecified(Confirmed) Active 1initial [place]: 17 on 08/09/14 2initial Oswestry Disability Index: 57% ( severe disability ) on 08/09/14; initial Neck Disability Index: 40% on 08/16/14 3SOAPP-R: 19 ON 08/09/14 4On 05/31/2013 underwent left total knee arthroplasty with computer navigation for osteoarthritis, left knee by Luis Higgins M.D. at [facility]. 5On 09/24/2008 underwent 1. Open decompression right shoulder (acromioplasty, release of coracoacromial ligament). 2. Distal clavicle excision. 3. Repair of massive markedly retracted posterosuperior cuff tear. 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 at [facility]. 6Polysomnogram performed on 08/17/2014 at [facility] revealed 1. Obstructive sleep apnea, moderate 2. Hypoventilation with sleep 7Surgical History Procedure/Surgical Profile 3 level Posterior fusion (33394) in 2013 at 58 Years. Spinal decompression (65464) in 2008 at 53 Years. Laminectomy with exploration and/or decompression of spinal cord and/or cauda equina, without facetectomy, foraminotomy or discectomy (eg, spinal stenosis), 1 or 2 vertebral segments; lumbar, except for spondylolisthesis (68503) in 1996 at 41 Years. SCS trial at [facility] complicated by early lead migration. Never had adequate trial. 8Surgical History Procedure/Surgical Profile 3 level Posterior fusion (76709) in 2013 at 58 Years. Spinal decompression (27403) in 2008 at 53 Years. Laminectomy with exploration and/or decompression of spinal cord and/or cauda equina, without facetectomy, foraminotomy or discectomy (eg, spinal stenosis), 1 or 2 vertebral segments; lumbar, except for spondylolisthesis (63774) in 1996 at 41 Years. SCS trial at [facility] complicated by early lead migration. Never had adequate trial. Social History Social History Type Response Smoking Status Former smoker, quit more than 30 days ago entered on: 12/01/18 Sex
--- OUTSIDE RECORDS SUMMARY | 2024-01-05 10:21 | XMS_ITS | Continuity of Care Document ---
Author Organization [facility] Address [address] [place] [address]- Care Team Providers Care Logistics Operations Director Name Role Phone Abel OTREO, Solis Li Primary Care Physician Encounter [facility] Date(s): 06/18/21 - 07/18/21 [facility] [address] [place], [place] [address] Allergies, Adverse Reactions, Alerts No Known Allergies [...] tetanus/diphtheria/pertussis, acel(Tdap) 4 12/23/16 Given 1Result Comment: [id number] 2Result Comment: [03/09/2018] [id number] 3Result Comment: [id number] 4Result Comment: [12/23/2016] given without incident.....vs Medications [...] 0, Maintenance,controlled substance agreement signed 08/30/14; preferred pharm:[facility]. dx: failed back sydrome, 08/30/14 10:48:33, Compound Start Date: 08/30/14 Status: Ordered doxepin 150 mg oral capsule 1 capsule = 150 mg, By Mouth, Daily at bedtime, # 90 capsule, 3 Refills, Maintenance, 06/06/20 10:17:00 EST, Capsule, [facility]/pharmacy #[id number], do not fill until pt calls, 160, cm, 05/09/20 16:02:00 EST, Height, 86.5, kg, 05/07/20 6:28:00 EST, Dry Weight Start Date: 06/06/20 Status: Ordered duloxetine 60 mg oral enteric coated capsule 1 capsule = 60 mg, By Mouth, Daily, # 30 capsule, 11 Refills, Maintenance, 11/10/20 14:38:00 EDT, Capsule, [facility]/pharmacy #[id number], 160, cm, 05/09/20 16:02:00 EST, Height, 86.5, kg, 05/07/20 6:28:00 EST, Dry Weight Start Date: 11/10/20 Status: Ordered gabapentin 800 mg oral tablet 1 tablet = 800 mg, By Mouth, 3 times a day, # 90 tablet, 11 Refills, Maintenance, 06/06/20 10:19:00EST, Tablet, [facility]/pharmacy #[id number], Partial fill upon patient request if the prescription is for a schedule II opioid drug., 160, cm, 05/09/20 16:02:00 ES... Start Date: 06/06/20 Status: Ordered hydrochlorothiazide-triamterene 25 mg-37.5 mg oral capsule 1 capsule, By Mouth, Daily, # 30 capsule, 11 Refills, Maintenance, 06/22/21 16:39:00 EST, Capsule, [facility]/pharmacy #[id number], d/c hydrochlorothiazide, 1 capsule By [...] tablet, 3 Refills, Maintenance, 06/18/21 14:42:00 EST, [facility]/pharmacy#[id number], 160, cm, 06/18/21 14:17:00 EST, Height, [...] 09/11/20 10:05:00 EDT, Route to Pharmacy Electronically, [id number], 160, cm, 05/09/20 16:02:00 EST, Height, 86.5, kg, 05/07/20 6:28:00 EST, Dry Weight Start Date: 09/11/20 Status: Ordered traZODone 50 mg oral tablet See Instructions, TAKE 1 TABLET BY MOUTH EVERYDAY AT BEDTIME, # 90 tablet, Refills 3, Tot. Refills 3, Maintenance, Instructions Replace Required Details, Route to Pharmacy Electronically, [id number], 160, cm, 05/09/20 16:02:00 EST, Height, 86.5,... Start Date: 08/13/20 Status: Ordered valsartan 320 mg oral tablet 1 tablet = 320 mg, By Mouth, Daily, # 90 tablet, 3 Refills, Maintenance, 06/18/21 14:40:00 EST, Tablet, [facility]/pharmacy #[id number], this is a n inrease [...] Venous (Peripheral) Insuffic iency, Unspecified(Confirmed) Active 1initial [place]: 17 on 08/09/14 2initial Oswestry Disability Index: 57% ( severe disability ) on 08/09/14; initial Neck Disability Index: 40% on 08/16/14 3SOAPP-R: 19 ON 08/09/14 4On 05/31/2013 underwent left total knee arthroplasty with computer navigation for osteoarthritis, left knee by Luis Higigns M.D. at [facility]. 5On 09/24/2008 underwent 1. Open decompression right shoulder (acromioplasty, release of coracoacromial ligament). 2. Distal clavicle excision. 3. Repair of massive markedly retracted posterosuperior cuff tear. 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 at [facility]. 6Polysomnogram performed on 08/17/2014 at [facility] revealed 1. Obstructive sleep apnea, moderate 2. Hypoventilation with sleep 7Surgical History Procedure/Surgical Profile 3 level Posterior fusion (88036) in 2013 at 58 Years. Spinal decompression (52309) in 2008 at 53 Years. Laminectomy with exploration and/or decompression of spinal cord and/or cauda equina, without facetectomy, foraminotomy or discectomy (eg, spinal stenosis), 1 or 2 vertebral segments; lumbar, except for spondylolisthesis (85956) in 1996 at 41 Years. SCS trial at [facility] complicated by early lead migration. Never had adequate trial. 8Surgical History Procedure/Surgical Profile 3 level Posterior fusion (95774) in 2013 at 58 Years. Spinal decompression (48404) in 2008 at 53 Years. Laminectomy with exploration and/or decompression of spinal cord and/or cauda equina, without facetectomy, foraminotomy or discectomy (eg, spinal stenosis), 1 or 2 vertebral segments; lumbar, except for spondylolisthesis (33336) in 1996 at 41 Years. SCS trial at [facility] complicated by early lead migration. Never had adequate trial. Social History Social History Type Response Smoking Status Former smoker, quit more than 30 days ago entered on: 12/01/18 Sex
--- OUTSIDE RECORDS SUMMARY | 2024-01-05 10:21 | XMS_ITS | Continuity of Care Document ---
Author Organization [facility] Address [address] [place] [address]- Care Team Providers Care Auto Body Technician Name Role Phone Solis Roman MD Primary Care Physician Encounter [facility] Date(s): 08/26/23 - 09/02/23 [facility] [address] [place], [place] [address] Attending Physician: Solis Roman MD Allergies, Adverse [...] vaccine, inactivated 03/10/16 Josué rded SARS-CoV-2 mRNA ([id number]) vax 04/08/22 Recorded zoster vaccine, inactivated 11/18/21 Recorded zoster vaccine, inactivated 06/23/20 Recorded SARS-CoV-2 (COVID-19) mRNA BNT-162b2 vac 04/19/21 Recorded SARS-CoV-2 (COVID-19) mRNA-1273 vaccine 09/19/20 G iven SARS-CoV-2 (COVID-19) mRNA-1273 vaccine 08/22/20 G iven pneumococcal 23-valent vaccine 4 04/25/20 Given Influenza Virus Vaccine (oldterm) 03/20/20 Recorde d pneumococcal 13-valent vaccine 03/09/18 Given tetanus/diphtheria/pertussis, acel(Tdap) 5 12/23/16 Given 1Result Comment: [facility] 2Result Comment: [id number] 3Result Comment: [03/09/2018] [id number] 4Result Comment: [id number] 5Result Comment: [12/23/2016] given without incident.....vs Medications [...] EST Start Date: 08/09/14 Status: Ordered doxepin 150 mg oral capsule 1 capsule, By Mouth, Daily at bedtime, # 90 capsule, 3 Refills, 07/26/23 10:44:00 EST, [facility]/pharmacy#[id number], 157, cm, 07/26/23 10:22:00 EST, Height, 86, kg, 05/10/23 11:11:00 EST, Dry Weight Start Date: 07/26/23 Status: Ordered duloxetine 60 mg oral enteric coated capsule 1 capsule, By Mouth, Daily, [employer] 07/2023, # 90 capsule, 3 Refills, 07/26/23 10:44:00 EST, [facility]/pharmacy #[id number], 157, cm, 07/26/23 10:22:00 EST, Height, 86, kg, 05/10/23 11:11:00 EST, Dry Weight Start Date: 07/26/23 Status: Ordered fluticasone 50 mcg/inh nasal spray 2 sprays = 100 mcg, Nares, Both, Daily in AM, # 16 Gm, 0 Refills, Maintenance, 08/26/23 8:53:00 EST, [place], Partial fill upon patient request if the [...] 3 Refills, Maintenance, 07/26/23 10:42:00 EST, Tablet, [facility]/pharmacy #[id number], Partial fill upon patient request if [...] Dry Weight Start Date: 07/26/23 Status: Ordered traZODone 50 mg oral tablet 1, tablet, By Mouth, Daily at bedtime, # 90 tablet, Refills 3, Maintenance, 05/02/23 21:24:00 EST, Route to Pharmacy Electronically, [id number], 160, cm, 04/22/23 9:05:00 EDT, Height Start Date: 05/02/23 Status: Ordered valsartan 320 mg oral tablet See Instructions, TAKE 1 TABLET BY MOUTH EVERY DAY, # 90 tablet, 3 Refills, Maintenance, 07/26/23 10:45:00 EST, [id number], 157, cm, 07/26/23 10:22:00 EST, Height, 86, kg, 05/10/23 11:11:00 EST,Dry Weight Start Date: 07/26/23 Status: Ordered Problem List Condition Confirmation Course [...] Venous (Peripheral) Insufficiency, Unspecified Confirmed Active 1initial [place]: 17 on 08/09/14 2initial Oswestry Disability Index: 57% ( severe disability ) on 08/09/14; initial Neck Disability Index: 40% on 08/16/14 3SOAPP-R: 19 ON 08/09/14 4On 05/31/2013 underwent left total knee arthroplasty with computer navigation for osteoarthritis, left knee by Luis Higgins M.D. at [facility]. 5On 09/24/2008 underwent 1. Open decompression right shoulder (acromioplasty, release of coracoacromial ligament). 2. Distal clavicle excision. 3. Repair of massive markedly retracted posterosuperior cuff tear. 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 at [facility]. 6Polysomnogram performed on 08/17/2014 at [facility] revealed 1. Obstructive sleep apnea, moderate 2. Hypoventilation with sleep 7Surgical History Procedure/Surgical Profile 3 level Posterior fusion (02807) in 2013 at 58 Years. Spinal decompression (53404) in 2008 at 53 Years. Laminectomy with exploration and/or decompression of spinal cord and/or cauda equina, without facetectomy, foraminotomy or discectomy (eg, spinal stenosis), 1 or 2 vertebral segments; lumbar, except for spondylolisthesis (67029) in 1996 at 41 Years. SCS trial at [facility] complicated by early lead migration. Never had adequate trial. 8Surgical History Procedure/Surgical Profile 3 level Posterior fusion (80910) in 2013 at 58 Years. Spinal decompression (57252) in 2008 at 53 Years. Laminectomy with exploration and/or decompression of spinal cord and/or cauda equina, without facetectomy, foraminotomy or discectomy (eg, spinal stenosis), 1 or 2 vertebral segments; lumbar, except for spondylolisthesis (42381) in 1996 at 41 Years. SCS trial at [facility] complicated by early lead migration. Never had adequate trial. Vital Signs Most recent to oldest [Reference Range]: 1 Height 157 cm (08/26/23 8:33 AM) Weight 88.5 kg (08/26/23 8:33 AM) Oxygen Saturation [94-100 %] 95 % (08/26/23 8:33 AM) Pulse Rate [55-90 bpm] 64 bpm (08/26/23 8:33 AM) Body Mass Index [18.5-24.99 kg/m2] 35.9 kg/m2 *>HHI* (08/26/23 8:33 AM) Blood Pressure [90-138/55-84 mm Hg] 156/ 84mm Hg *H* (08/26/23 8:33 AM) Mode of Delivery (Oxygen) Room air (08/26/23 8:33 AM) Blood pressure sites Arm, left (08/26/23 8:33 AM) Social History Social History Type Response Smoking Status Former smoker, quit more than 30 days ago entered on: 12/01/18 Sex Patient Care team information Care Team Personnel Name: Luis Combs RN Position: [facility] RN Member Role: Primary Care Nurse Name: Solis Roman MD Position: [facility] Physician - Primary Care Member Role: PCP Address: Address: [address] [place] [address] Adult & Pediatric [place], [place] [address] Name: Iris Al RN Position: S RN Member Role: Primary Care Nurse Name: Stacie Guardado RN Position: [facility] RN Member Role: Primary Care Nurse Name: Tk Mendoza RN Position: S RN Member Role: Primary Care Nurse Care Team Related Persons Name: PATITO RANDY Address: [place] [address] Name: ERIN CHATTERJEE Address: home [address] [place] [address] Name: CRISTA WEST Address: home [address] [place] [address]
--- OUTSIDE RECORDS SUMMARY | 2024-01-05 10:21 | XMS_ITS | Continuity of Care Document ---
Author Organization [facility] Address [address] [place] [address]- Care Team Providers Care Experimental Rocket Sled Mechanic Name Role Phone Solis Roman MD Primary Care Physician Encounter [facility] Date(s): 08/30/19 - 11/25/19 [facility] [address] [place] [address]- [facility] Attending Physician: Slois Roman MD Allergies, Adverse Reactions, Alerts No Known Medication Allergies Substance Reaction Severity Status NKA Active Immunizations Given and Recorded Vaccine Date Status Refusal Reason influenza virus vaccine, inactivated 1 05/03/19 Gi serafin influenza virus vaccine, inactivated 2 03/09/18 Gi serafin influenza virus vaccine, inactivated 03/10/16 Josué rded pneumococcal 13-valent vaccine 03/09/18 Given tetanus/diphtheria/pertussis, acel(Tdap) 3 12/23/16 Given 1Result Comment: [id number] 2Result Comment: [03/09/2018] [id number] 3Result Comment: [12/23/2016] given without incident.....vs Medications aspirin 81 mg oral tablet 1 tablet = 81 mg, By Mouth, Daily, # 30 tablet, 0 Refills, Maintenance, 12/25/18 8:29:15 EDT Start Date: 12/25/18 Status: Ordered cevimeline 30 mg oral capsule 1 capsule = 30 mg, By Mouth, 3 times a day, PRN Other, dry mouth, 0 Refills, Maintenance, 08/09/14 15:13:58 EST Start Date: 08/09/14 Status: Ordered Compression Stockings See Instructions, # 2 pair, Refills 3, Tot. Refills 3, Maintenance, surgical, thigh high length 30-40 mm Hg Dx: bilateral lower extremity edema, 09/26/18 12:45:14 EDT, Compound Start Date: 09/26/18 Status: Ordered Compression Stockings See Instructions, # 3 pair, Refills 2, Tot. Refills 2, Maintenance, surgical, thigh high length 30-40 mm Hg Dx: lymphedema, lipedema, 10/06/18 15:36:35 EDT, Compound Start Date: 10/06/18 Status: Ordered Controlled substance agreement Controlled substance agreement, See Instructions, # 1 each, Refills 0, Tot. Refills 0, Maintenance,controlled substance agreement signed 08/30/14; preferred pharm:[facility]. dx: failed back sydrome, 08/30/14 10:48:33, Compound Start Date: 08/30/14 Status: Ordered doxepin 25 mg oral capsule 3 capsule = 75 mg, By Mouth, Daily at bedtime, for 30 days, # 90 capsule, 11 Refills, Hard Stop 12/07/19 14:23:00 EDT, 12/12/18 14:23:00 EDT, Capsule, this is an increase Start Date: 12/12/18 Stop Date: 12/07/19 Status: Ordered duloxetine 60 mg oral enteric coated capsule 1 capsule = 60 mg, By Mouth, Daily, # 30 capsule, 11 Refills, Maintenance, 10/15/19 9:12:00 EDT, Capsule, [facility]/pharmacy #[id number], 159, cm, 08/20/19 13:42:00 EST, Height, 93.1, kg, 11/21/18 12:27:00 EDT, Dry Weight Start Date: 10/15/19 Status: Ordered hydrochlorothiazide-triamterene 25 mg-37.5 mg oral capsule 1 capsule, By Mouth, Daily, # 90 capsule, 3 Refills, Maintenance, 11/09/18 12:18:51 EDT, Capsule, 1capsule By Mouth Daily,x90 days Start Date: 11/09/18 Stop Date: 11/04/19 Status: Ordered Juxta-Fit compression stockings Juxta-Fit compression stockings, See Instructions, # 1 each, Refills 0, Tot. Refills 0, Maintenance, Wear as instructed daily, 01/13/17 15:48:20, Compound Start Date: 01/13/17 Status: Ordered Juxta-Fit Compression Wraps (thigh-high). 2 piece with Hybrid Socks Juxta-Fit Compression Wraps (thigh-high). 2 piece with Hybrid Socks, See Instructions, # 1 pair, Refills 1, Tot. Refills 1, Maintenance, Use daily, 10/13/17 10:42:49 EDT, Compound Start Date: 10/13/17 Status: Ordered Lymphedema clinic referral Lymphedema clinic referral, See Instructions, # 1 each, Refills 0, Tot. Refills 0, Maintenance, Please eval and treat for bilateral lower extremity edema, 01/25/14 16:02:15, Compound Start Date: 01/25/14 Status: Ordered metoprolol 50 mg oral tablet, extended release 50 mg, 1, tablet, By Mouth, Daily, # 90 tablet, Refills 3, Tot. Refills 3, Maintenance, 06/25/19 13:39:00 EST, Route to Pharmacy Electronically, [facility]/pharmacy #[id number], this is an increase, 159, cm, 06/25/19 13:38:00 EST, Height, 93.1, kg, 11/21/18 12:2... Start Date: 06/25/19 Status: Ordered PreserVision By Mouth, Daily, 0 Refills, Maintenance, 02/18/16 15:11:36 Start Date: 02/18/16 Status: Ordered tiZANidine 2 mg oral tablet 2 mg, 1, tablet, By Mouth, 2 times a day, # 60 tablet, Refills 11, Tot. Refills 11, Maintenance, 10/15/19 9:13:00 EDT, Route to Pharmacy Electronically, [facility]/pharmacy #[id number], 159, cm, 08/20/19 13:42:00EST, Height, 93.1, kg, 11/21/18 12:27:00 EDT, Dry W... 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/05/17 Active Age-related macular degeneration(Confirmed) Active Anxiety(Confirmed) Active Knee pain(Confirmed) Active Atrial flutter s/p ablation 09/16/17(Confirmed) 09/17/17 Active Sleep-related hypoventilation(Confirmed) Active Constipation(Confirmed) Active DVT, lower extremity peerone al marysol provoked(Confirmed) 09/01/18 Active Depression(Confirmed) Active Somnolence(Confirmed) 1 Active Drug [...] of adequate sleep(Confirmed) Active Neck pain(Confirmed) Active Obesity(Confirmed) Active Obstructive sleep apnea(Confirmed) 6 [...] Venous (Peripheral) Insuffic iency, Unspecified(Confirmed) Active 1initial [place]: 17 on 08/09/14 2initial Oswestry Disability Index: 57% ( severe disability ) on 08/09/14; initial Neck Disability Index: 40% on 08/16/14 3SOAPP-R: 19 ON 08/09/14 4On 05/31/2013 underwent left total knee arthroplasty with computer navigation for osteoarthritis, left knee by Luis Higgins M.D. at [facility]. 5On 09/24/2008 underwent 1. Open decompression right shoulder (acromioplasty, release of coracoacromial ligament). 2. Distal clavicle excision. 3. Repair of massive markedly retracted posterosuperior cuff tear. 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 at [facility]. 6Polysomnogram performed on 08/17/2014 at [facility] revealed 1. Obstructive sleep apnea, moderate 2. Hypoventilation with sleep 7Surgical History Procedure/Surgical Profile 3 level Posterior fusion (82964) in 2013 at 58 Years. Spinal decompression (26663) in 2008 at 53 Years. Laminectomy with exploration and/or decompression of spinal cord and/or cauda equina, without facetectomy, foraminotomy or discectomy (eg, spinal stenosis), 1 or 2 vertebral segments; lumbar, except for spondylolisthesis (72409) in 1996 at 41 Years. SCS trial at [facility] complicated by early lead migration. Never had adequate trial. 8Surgical History Procedure/Surgical Profile 3 level Posterior fusion (85451) in 2013 at 58 Years. Spinal decompression (69006) in 2008 at 53 Years. Laminectomy with exploration and/or decompression of spinal cord and/or cauda equina, without facetectomy, foraminotomy or discectomy (eg, spinal stenosis), 1 or 2 vertebral segments; lumbar, except for spondylolisthesis (39172) in 1996 at 41 Years. SCS trial at [facility] complicated by early lead migration. Never had adequate trial. Social History Social History Type Response Smoking Status Former smoker, quit more than 30 days ago entered on: 12/01/18 Sex
--- OUTSIDE RECORDS SUMMARY | 2024-01-05 10:21 | XMS_ITS | Continuity of Care Document ---
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 Name Role Phone Solis Roman MD Primary Care Physician [facility]counter [facility] Date(s): 08/23/22 - 09/22/22 [facility] [address] [place], [place] [address] Allergies, Adverse Reactions, Alerts No Known Allergies Immunizations Given and Recorded Vaccine Date Status Refusal Reason SARS-CoV-2 mRNA (tqomaej-kxmw-bnpvw) vax 04/08/22 Recorded influenza virus vaccine, inactivated 04/08/22 Josué rded influenza virus vaccine, inactivated 04/19/21 Josué rded influenza virus vaccine, inactivated 1 05/03/19 Gi serafin influenza virus vaccine, inactivated 2 03/09/18 Gi serafin influenza virus vaccine, inactivated 03/10/16 Josué rded zoster vaccine, inactivated 11/18/21 Recorded zoster vaccine, inactivated 06/23/20 Recorded SARS-CoV-2 (COVID-19) mRNA BNT-162b2 vac 04/19/21 Recorded SARS-CoV-2 (COVID-19) mRNA-1273 vaccine 09/19/20 G iven SARS-CoV-2 (COVID-19) mRNA-1273 vaccine 08/22/20 G iven pneumococcal 23-valent vaccine 3 04/25/20 Given Influenza Virus Vaccine (oldterm) 03/20/20 Recorde d pneumococcal 13-valent vaccine 03/09/18 Given tetanus/diphtheria/pertussis, acel(Tdap) 4 12/23/16 Given 1Result Comment: [id number] 2Result Comment: [03/09/2018] [id number] 3Result Comment: [id number] 4Result Comment: [12/23/2016] given without incident.....vs Medications [...] 0, Maintenance,controlled substance agreement signed 08/30/14; preferred pharm:[facility]. dx: failed back sydrome, 08/30/14 10:48:33, Compound Start Date: 08/30/14 Status: Ordered doxepin 150 mg oral capsule 1 capsule, By Mouth, Daily at bedtime, # 90 capsule, 3 Refills, 08/23/22 11:39:00 EST, [facility]/pharmacy#[id number], 160, cm, 08/31/21 15:19:00 EDT, Height Start Date: 08/23/22 Status: Ordered duloxetine 60 mg oral enteric coated capsule 1 capsule, By Mouth, Daily, [employer] 07/2023, # 90 capsule, 3 Refills, 07/27/22 15:27:00 EST, [facility]/pharmacy #[id number], 160, cm, 08/31/21 15:19:00 EDT, Height Start Date: 07/27/22 Status: Ordered gabapentin 800 mg oral tablet 1 tablet = 800 mg, By Mouth, 3 times a day, # 90 tablet, 11 Refills, Maintenance, 10/05/21 12:46:00EDT, Tablet, [facility]/pharmacy #[id number], Partial fill upon patient request if the prescription is for a schedule II opioid drug., 160, cm, 08/31/21 15:19:00 ED... Start Date: 10/05/21 Status: Ordered hydrALAZINE 25 mg oral tablet 25 mg, 1, tablet, By Mouth, 2 times a day, # 60 tablet, Refills 11, Tot. Refills 11, Maintenance, 08/13/22 9:21:00 EST, Route to Pharmacy Electronically, [facility]/pharmacy #[id number], Partial fill upon patientrequest if the prescription is for a schedule II op... Start Date: 08/13/22 Status: Ordered hydrochlorothiazide-triamterene 25 mg-37.5 mg oral capsule 1 capsule, By Mouth, Daily, # 90 capsule, 1 Refills, Maintenance, 05/27/22 11:51:00 EST, [facility]ORE [id number], 90, TAKE 1 CAPSULE BY MOUTH EVERY DAY, 160, cm, 08/31/21 15:19:00 EDT, Height Start Date: 05/27/22 Status: Ordered Lymphedema clinic referral Lymphedema clinic referral, See Instructions, # 1 each, Refills 0, Tot. Refills 0, Maintenance, Please eval and treat for bilateral lower extremity edema, 01/25/14 16:02:15, Compound Start Date: 01/25/14 Status: Ordered Metoprolol Succinate ER 50 mg oral tablet, extended release 1 tablet, By Mouth, Daily, # 90 tablet, 3 Refills, Maintenance, 09/21/22 13:56:00 EDT, [facility]/pharmacy#[id number], 160, cm, 08/31/21 15:19:00 EDT, Height Start Date: 09/21/22 Status: Ordered tiZANidine 2 mg oral tablet 4 mg, 2, tablet, By Mouth, Daily at bedtime, # 180 tablet, Refills 3, Tot. Refills 3, Maintenance, 01/19/22 11:02:00 EDT, Route to Pharmacy Electronically, [facility]/pharmacy #[id number], 160, cm, 08/31/21 15:19:00 EDT, Height, 86.5, kg, 05/07/20 6:28:00 EST, Dry... Start Date: 01/19/22 Stop Date: 01/14/23 Status: Ordered traZODone 50 mg oral tablet See Instructions, TAKE 1 TABLET BY MOUTH EVERYDAY AT BEDTIME, # 90 tablet, Refills 1, Tot. Refills 1, Maintenance, 07/27/22 12:16:00 EST, Instructions Replace Required Details, Route to Pharmacy Electronically, [facility]/pharmacy #[id number], 160, cm, 08/31/21 15... Start Date: 07/27/22 Status: Ordered valsartan 320 mg oral tablet 1 tablet, By Mouth, Daily, # 90 tablet, 1 Refills, Maintenance, 05/27/22 11:53:00 EST, [id number], 160, cm, 08/31/21 15:19:00 EDT, Height Start Date: 05/27/22 Status: Ordered Problem List Condition Confirmation Course [...] Venous (Peripheral) Insufficiency, Unspecified Confirmed Active 1initial [place]: 17 on 08/09/14 2initial Oswestry Disability Index: 57% ( severe disability ) on 08/09/14; initial Neck Disability Index: 40% on 08/16/14 3SOAPP-R: 19 ON 08/09/14 4On 05/31/2013 underwent left total knee arthroplasty with computer navigation for osteoarthritis, left knee by Luis Higgins M.D. at [facility]. 5On 09/24/2008 underwent 1. Open decompression right shoulder (acromioplasty, release of coracoacromial ligament). 2. Distal clavicle excision. 3. Repair of massive markedly retracted posterosuperior cuff tear. 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 at [facility]. 6Polysomnogram performed on 08/17/2014 at [facility] revealed 1. Obstructive sleep apnea, moderate 2. Hypoventilation with sleep 7Surgical History Procedure/Surgical Profile 3 level Posterior fusion (53721) in 2013 at 58 Years. Spinal decompression (47197) in 2008 at 53 Years. Laminectomy with exploration and/or decompression of spinal cord and/or cauda equina, without facetectomy, foraminotomy or discectomy (eg, spinal stenosis), 1 or 2 vertebral segments; lumbar, except for spondylolisthesis (06640) in 1996 at 41 Years. SCS trial at [facility] complicated by early lead migration. Never had adequate trial. 8Surgical History Procedure/Surgical Profile 3 level Posterior fusion (03811) in 2013 at 58 Years. Spinal decompression (02817) in 2008 at 53 Years. Laminectomy with exploration and/or decompression of spinal cord and/or cauda equina, without facetectomy, foraminotomy or discectomy (eg, spinal stenosis), 1 or 2 vertebral segments; lumbar, except for spondylolisthesis (13398) in 1996 at 41 Years. SCS trial at [facility] complicated by early lead migration. Never had adequate trial. Social History Social History Type Response Smoking Status Former smoker, quit more than 30 days ago entered on: 12/01/18 Sex Patient Care team information Care Team Personnel Name: Luis Combs RN Position: S RN Member Role: Primary Care Nurse Name: Solis Roman MD Position: [facility] Primary Care Physician Member Role: PCP Address: Address: [address] [place] [address] Adult [place] [address]- Name: Loni Ervin RN Position: [facility] RN Member Role: Primary Care Nurse Name: Tk Mendoza RN Position: [facility] RN Member Role: Primary Care Nurse Care Team Related Persons Name: RANDY CAPUTO Address: [place] [address] Name: ERIN CHATTERJEE Address: home [address] [place] [address] Name: CRISTA WEST Address: [address] [place] [address]
--- OUTSIDE RECORDS SUMMARY | 2024-01-05 10:21 | XMS_ITS | Continuity of Care Document ---
Author Organization [facility] Address [address] [place] [address]- Care Team Providers Care Senior International Tax Manager Name Role Phone Solis Roman MD Primary Care Physician Encounter [facility] Date(s): 08/20/19 - 11/24/19 [facility] [address] [place] [address]- [facility] Attending Physician: Solis Roman MD Allergies, Adverse Reactions, Alerts No Known Medication Allergies Substance Reaction Severity Status NKA Active Immunizations Given and Recorded Vaccine Date Status Refusal Reason influenza virus vaccine, inactivated 1 05/03/19 Gi serafin influenza virus vaccine, inactivated 2 03/09/18 Gi serafin influenza virus vaccine, inactivated 03/10/16 Josué rded pneumococcal 13-valent vaccine 03/09/18 Given tetanus/diphtheria/pertussis, acel(Tdap) 3 12/23/16 Given 1Result Comment: [id number] 2Result Comment: [03/09/2018] [id number] 3Result Comment: [12/23/2016] given without incident.....vs Medications [...] Maintenance,controlled substance agreement signed 08/30/14; preferred pharm:[facility]. dx: failed back sydrome, [...] 11 Refills, Maintenance, 10/15/19 9:12:00 EDT, Capsule, [facility]/pharmacy #[id number], 159, cm, 08/20/19 13:42:00 EST, [...] 06/25/19 13:39:00 EST, Route to Pharmacy Electronically, [facility]/pharmacy #[id number], this is an increase, 159, [...] 10/15/19 9:13:00 EDT, Route to Pharmacy Electronically, [facility]/pharmacy #[id number], 159, cm, 08/20/19 13:42:00EST, Height, [...] Venous (Peripheral) Insuffic iency, Unspecified(Confirmed) Active 1initial [place]: 17 on 08/09/14 2initial Oswestry Disability Index: 57% ( severe disability ) on 08/09/14; initial Neck Disability Index: 40% on 08/16/14 3SOAPP-R: 19 ON 08/09/14 4On 05/31/2013 underwent left total knee arthroplasty with computer navigation for osteoarthritis, left knee by Luis Higgins M.D. at [facility]. 5On 09/24/2008 underwent 1. Open decompression right shoulder (acromioplasty, release of coracoacromial ligament). 2. Distal clavicle excision. 3. Repair of massive markedly retracted posterosuperior cuff tear. 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 at [facility]. 6Polysomnogram performed on 08/17/2014 at [facility] revealed 1. Obstructive sleep apnea, moderate 2. Hypoventilation with sleep 7Surgical History Procedure/Surgical Profile 3 level Posterior fusion (76059) in 2013 at 58 Years. Spinal decompression (13403) in 2008 at 53 Years. Laminectomy with exploration and/or decompression of spinal cord and/or cauda equina, without facetectomy, foraminotomy or discectomy (eg, spinal stenosis), 1 or 2 vertebral segments; lumbar, except for spondylolisthesis (40955) in 1996 at 41 Years. SCS trial at [facility] complicated by early lead migration. Never had adequate trial. 8Surgical History Procedure/Surgical Profile 3 level Posterior fusion (53508) in 2013 at 58 Years. Spinal decompression (33600) in 2008 at 53 Years. Laminectomy with exploration and/or decompression of spinal cord and/or cauda equina, without facetectomy, foraminotomy or discectomy (eg, spinal stenosis), 1 or 2 vertebral segments; lumbar, except for spondylolisthesis (27781) in 1996 at 41 Years. SCS trial at [facility] complicated by early lead migration. Never had adequate trial. Social History Social History Type Response Smoking Status Former smoker, quit more than 30 days ago entered on: 12/01/18 Sex
--- OUTSIDE RECORDS SUMMARY | 2024-01-05 10:21 | XMS_ITS | Continuity of Care Document ---
Author Organization [facility] Address [address] [place] [address]- Care Team Providers Care Brake Repairer Hydraulic Name Role Phone Abel OTERO, Solis Li Primary Care Physician Encounter [facility] Date(s): 06/22/21 - 07/22/21 [facility] [address] [place], [place] [address] Allergies, Adverse Reactions, Alerts No Known [...] tetanus/diphtheria/pertussis, acel(Tdap) 4 12/23/16 Given 1Result Comment: [id number] 2Result Comment: [03/09/2018] [id number] 3Result Comment: [id number] 4Result Comment: [12/23/2016] given without incident.....vs Medications [...] 0, Maintenance,controlled substance agreement signed 08/30/14; preferred pharm:[facility]. dx: failed back sydrome, 08/30/14 10:48:33, Compound Start Date: 08/30/14 Status: Ordered doxepin 150 mg oral capsule 1 capsule, By Mouth, Daily at bedtime, # 90 capsule, 3 Refills, [id number], 160, cm, 06/22/21 15:54:00 EST, Height, 86.5, kg, 05/07/20 6:28:00 EST, Dry Weight Start Date: 07/21/21 Status: Ordered duloxetine 60 mg oral enteric coated capsule 1 capsule = 60 mg, By Mouth, Daily, # 30 capsule, 11 Refills, Maintenance, 11/10/20 14:38:00 EDT, Capsule, [facility]/pharmacy #[id number], 160, cm, 05/09/20 16:02:00 EST, Height, 86.5, kg, 05/07/20 6:28:00 EST, Dry Weight Start Date: 11/10/20 Status: Ordered gabapentin 800 mg oral tablet 1 tablet = 800 mg, By Mouth, 3 times a day, # 90 tablet, 11 Refills, Maintenance, 06/06/20 10:19:00EST, Tablet, [facility]/pharmacy #[id number], Partial fill upon patient request if the prescription is for a schedule II opioid drug., 160, cm, 05/09/20 16:02:00 ES... Start Date: 06/06/20 Status: Ordered hydrochlorothiazide-triamterene 25 mg-37.5 mg oral capsule 1 capsule, By Mouth, Daily, # 30 capsule, 11 Refills, Maintenance, 06/22/21 16:39:00 EST, Capsule, [facility]/pharmacy #[id number], d/c hydrochlorothiazide, 1 capsule By Mouth [...] tablet, 3 Refills, Maintenance, 06/18/21 14:42:00 EST, [facility]/pharmacy#2339, 160, cm, 06/18/21 14:17:00 EST, Height, 86.5, [...] 09/11/20 10:05:00 EDT, Route to Pharmacy Electronically, [facility] ST[facility] [id number], 160, cm, 05/09/20 16:02:00 EST, Height, 86.5, kg, 05/07/20 6:28:00 EST, Dry Weight Start Date: 09/11/20 Status: Ordered traZODone 50 mg oral tablet See Instructions, TAKE 1 TABLET BY MOUTH EVERYDAY AT BEDTIME, # 90 tablet, Refills 3, Tot. Refills 3, Maintenance, Instructions Replace Required Details, Route to Pharmacy Electronically, [facility] [id number], 160, cm, 05/09/20 16:02:00 EST, Height, 86.5,... Start Date: 08/13/20 Status: Ordered valsartan 320 mg oral tablet 1 tablet = 320 mg, By Mouth, Daily, # 90 tablet, 3 Refills, Maintenance, 06/18/21 14:40:00 EST, Tablet, [facility]/pharmacy #[id number], this is a n inrease in [...] Venous (Peripheral) Insuffic iency, Unspecified(Confirmed) Active 1initial [place]: 17 on 08/09/14 2initial Oswestry Disability Index: 57% ( severe disability ) on 08/09/14; initial Neck Disability Index: 40% on 08/16/14 3SOAPP-R: 19 ON 08/09/14 4On 05/31/2013 underwent left total knee arthroplasty with computer navigation for osteoarthritis, left knee by Luis Higgins M.D. at [facility]. 5On 09/24/2008 underwent 1. Open decompression right shoulder (acromioplasty, release of coracoacromial ligament). 2. Distal clavicle excision. 3. Repair of massive markedly retracted posterosuperior cuff tear. 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 at [facility]. 6Polysomnogram performed on 08/17/2014 at [facility] revealed 1. Obstructive sleep apnea, moderate 2. Hypoventilation with sleep 7Surgical History Procedure/Surgical Profile 3 level Posterior fusion (71638) in 2013 at 58 Years. Spinal decompression (41099) in 2008 at 53 Years. Laminectomy with exploration and/or decompression of spinal cord and/or cauda equina, without facetectomy, foraminotomy or discectomy (eg, spinal stenosis), 1 or 2 vertebral segments; lumbar, except for spondylolisthesis (66664) in 1996 at 41 Years. SCS trial at [facility] complicated by early lead migration. Never had adequate trial. 8Surgical History Procedure/Surgical Profile 3 level Posterior fusion (62842) in 2013 at 58 Years. Spinal decompression (07526) in 2008 at 53 Years. Laminectomy with exploration and/or decompression of spinal cord and/or cauda equina, without facetectomy, foraminotomy or discectomy (eg, spinal stenosis), 1 or 2 vertebral segments; lumbar, except for spondylolisthesis (26870) in 1996 at 41 Years. SCS trial at [facility] complicated by early lead migration. Never had adequate trial. Social History Social History Type Response Smoking Status Former smoker, quit more than 30 days ago entered on: 12/01/18 Sex
--- OUTSIDE RECORDS SUMMARY | 2024-01-05 10:21 | XMS_ITS | Continuity of Care Document ---
Author Organization [facility] Address [address] [place] [address]- Care Team Providers Care Turnaround Planner Name Role Phone Abel OTERO, Solis Li Primary Care Physician Encounter [facility] Date(s): 02/18/20 - 03/19/20 [facility] [address] [place] [address] Allergies, Adverse Reactions, Alerts No Known Medication Allergies Substance Reaction Severity Status NKA Active Immunizations Given and Recorded Vaccine Date Status Refusal Reason influenza virus vaccine, inactivated 1 05/03/19 Gi serafin influenza virus vaccine, inactivated 2 03/09/18 Gi serafin influenza virus vaccine, inactivated 03/10/16 Josué rded pneumococcal 13-valent vaccine 03/09/18 Given tetanus/diphtheria/pertussis, acel(Tdap) 3 12/23/16 Given 1Result Comment: [id number] 2Result Comment: [03/09/2018] [id number] 3Result Comment: [12/23/2016] given without incident.....vs Medications [...] Ordered Compression Stockings See Instructions, # 3 each, Refills 3, Tot. Refills 3, Maintenance, custum stockings surgical, thigh high length 30-40 mm Hg Dx: lymphedema, lipedema, 03/04/20 10:37:00 EDT, Compound Start Date: 03/04/20 Status: Ordered Controlled substance agreement Controlled substance agreement, See Instructions, # 1 each, Refills 0, Tot. Refills 0, Maintenance,controlled substance agreement signed 08/30/14; preferred pharm:[facility]. dx: failed back sydrome, 08/30/14 10:48:33, Compound Start Date: 08/30/14 Status: Ordered doxepin 25 mg oral capsule 3 capsule = 75 mg, By Mouth, Daily at bedtime, for 30 days, # 90 capsule, 11 Refills, Hard Stop 02/26/21 13:13:00 EDT, 03/03/20 13:13:00 EDT, Capsule, [facility]/pharmacy #[id number], this is an increase, 159, cm, 08/20/19 13:42:00 EST, Height, 93.1, kg, ... Start Date: 03/03/20 Stop Date: 02/26/21 Status: Ordered duloxetine 60 mg oral enteric coated capsule 1 capsule = 60 mg, By Mouth, Daily, # 30 capsule, 11 Refills, Maintenance, 10/15/19 9:12:00 EDT, Capsule, [facility]/pharmacy #[id number], 159, cm, 08/20/19 13:42:00 EST, Height, 93.1, kg, 11/21/18 12:27:00 EDT, Dry Weight Start Date: 10/15/19 Status: Ordered gabapentin 800 mg oral tablet TAKE 1 TABLET BY MOUTH THREE TIMES A DAY Start Date: 01/14/20 Status: Ordered hydrochlorothiazide-triamterene 25 mg-37.5 mg oral capsule 1 capsule, By Mouth, Daily, # 90 capsule, 1 Refills, Maintenance, 02/27/20 9:26:00 EDT, Capsule, [facility]/pharmacy #[id number], 1 capsule By Mouth Daily,x90 days, 159, cm, 08/20/19 13:42:00 EST, Height, 93.1, kg, 11/21/18 12:27:00 EDT, Dry Weight Start Date: 02/27/20 Stop Date: 08/25/20 Status: Ordered Juxta-Fit compression stockings Juxta-Fit compression [...] 06/25/19 13:39:00 EST, Route to Pharmacy Electronically, [facility]/pharmacy #[id number], this is an increase, 159, [...] 10/15/19 9:13:00 EDT, Route to Pharmacy Electronically, [facility]/pharmacy #2330, 159, cm, 08/20/19 13:42:00EST, Height, 93.1, kg, 11/21/18 12:27:00 EDT, Dry W... Start Date: 10/15/19 Stop Date: 10/09/20 Status: Ordered Tylenol 8 Hour 650 mg oral tablet, extended release 2 tablet = 1,300 mg, By Mouth, Every 8 hours, PRN as needed for fever, # 100 tablet, 1 Refills, Maintenance, 11/09/18 12:22:58 EDT, ER Tablet Start Date: 11/09/18 Status: Ordered valsartan 160 mg oral tablet 160 mg, 1, tablet, By Mouth, Daily, # 30 tablet, Refills 11, Tot. Refills 11, Maintenance, 01/13/2018:58:00 EDT, Route to Pharmacy Electronically, [facility]/pharmacy #[id number], 159, cm, 08/20/19 13:42:00 EST,Height, 93.1, kg, 11/21/18 12:27:00 EDT, Dry Weight Start Date: 01/14/20 Status: Ordered Problem List Condition Effective Dates [...] Venous (Peripheral) Insuffic iency, Unspecified(Confirmed) Active 1initial [place]: 17 on 08/09/14 2initial Oswestry Disability Index: 57% ( severe disability ) on 08/09/14; initial Neck Disability Index: 40% on 08/16/14 3SOAPP-R: 19 ON 08/09/14 4On 05/31/2013 underwent left total knee arthroplasty with computer navigation for osteoarthritis, left knee by Luis Higgins M.D. at [facility]. 5On 09/24/2008 underwent 1. Open decompression right shoulder (acromioplasty, release of coracoacromial ligament). 2. Distal clavicle excision. 3. Repair of massive markedly retracted posterosuperior cuff tear. 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 at [facility]. 6Polysomnogram performed on 08/17/2014 at [facility] revealed 1. Obstructive sleep apnea, moderate 2. Hypoventilation with sleep 7Surgical History Procedure/Surgical Profile 3 level Posterior fusion (99614) in 2013 at 58 Years. Spinal decompression (53640) in 2008 at 53 Years. Laminectomy with exploration and/or decompression of spinal cord and/or cauda equina, without facetectomy, foraminotomy or discectomy (eg, spinal stenosis), 1 or 2 vertebral segments; lumbar, except for spondylolisthesis (85435) in 1996 at 41 Years. SCS trial at [facility] complicated by early lead migration. Never had adequate trial. 8Surgical History Procedure/Surgical Profile 3 level Posterior fusion (15061) in 2013 at 58 Years. Spinal decompression (82858) in 2008 at 53 Years. Laminectomy with exploration and/or decompression of spinal cord and/or cauda equina, without facetectomy, foraminotomy or discectomy (eg, spinal stenosis), 1 or 2 vertebral segments; lumbar, except for spondylolisthesis (95018) in 1996 at 41 Years. SCS trial at [facility] complicated by early lead migration. Never had adequate trial. Social History Social History Type Response Smoking Status Former smoker, quit more than 30 days ago entered on: 12/01/18 Sex
--- OUTSIDE RECORDS SUMMARY | 2024-01-05 10:21 | XMS_ITS | Continuity of Care Document ---
Author Organization [facility] Address [address] [place] [address]- Care Team Providers Care Motor Room Controller Name Role Phone Abel OTERO, Solis Li Primary Care Physician Encounter [facility] Date(s): 10/26/19 - 11/25/19 [facility] [address] [place] [address]- [facility] Attending Physician: Mary Cantu Admitting Physician: Mary Cantu Referring Physician: AdmtrMary Allergies, Adverse Reactions, Alerts No Known Medication Allergies Substance Reaction Severity Status NKA Active Immunizations Given and Recorded Vaccine Date Status Refusal Reason influenza virus vaccine, inactivated 1 05/03/19 Gi serafin influenza virus vaccine, inactivated 2 03/09/18 Gi esrafin influenza virus vaccine, inactivated 03/10/16 Josué rded pneumococcal 13-valent vaccine 03/09/18 Given tetanus/diphtheria/pertussis, acel(Tdap) 3 12/23/16 Given 1Result Comment: [id number] 2Result Comment: [03/09/2018] [id number] 3Result Comment: [12/23/2016] given without incident.....vs Medications [...] 0, Maintenance,controlled substance agreement signed 08/30/14; preferred pharm:[facility] Alanna Wilson. dx: failed back sydrome, 08/30/14 10:48:33, Compound [...] 11 Refills, Maintenance, 10/15/19 9:12:00 EDT, Capsule, [facility]/pharmacy #[id number], 159, cm, 08/20/19 13:42:00 EST, Height, [...] 06/25/19 13:39:00 EST, Route to Pharmacy Electronically, [facility]/pharmacy #[id number], this is an increase, 159, cm, [...] 10/15/19 9:13:00 EDT, Route to Pharmacy Electronically, [facility]/pharmacy #[id number], 159, cm, 08/20/19 13:42:00EST, Height, 93.1, kg, 11/21/18 12:27:00 EDT, Dry W... Start Date: 10/15/19 Stop Date: 10/09/20 Status: Ordered Tylenol 8 Hour 650 mg oral tablet, extended release 2 tablet = 1,300 mg, By Mouth, Every 8 hours, PRN as needed for fever, # 100 tablet, 1 Refills, Maintenance, 05/23/19 12:22:58 EDT, ER Tablet Start Date: 11/09/18 [...] Venous (Peripheral) Insuffic iency, Unspecified(Confirmed) Active 1initial [place]: 17 on 08/09/14 2initial Oswestry Disability Index: 57% ( severe disability ) on 08/09/14; initial Neck Disability Index: 40% on 08/16/14 3SOAPP-R: 19 ON 08/09/14 4On 05/31/2013 underwent left total knee arthroplasty with computer navigation for osteoarthritis, left knee by Luis Higgins M.D. at [facility]. 5On 09/24/2008 underwent 1. Open decompression right shoulder (acromioplasty, release of coracoacromial ligament). 2. Distal clavicle excision. 3. Repair of massive markedly retracted posterosuperior cuff tear. 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 at [facility]. 6Polysomnogram performed on 08/17/2014 at [facility] revealed 1. Obstructive sleep apnea, moderate 2. Hypoventilation with sleep 7Surgical History Procedure/Surgical Profile 3 level Posterior fusion (90100) in 2013 at 58 Years. Spinal decompression (54656) in 2008 at 53 Years. Laminectomy with exploration and/or decompression of spinal cord and/or cauda equina, without facetectomy, foraminotomy or discectomy (eg, spinal stenosis), 1 or 2 vertebral segments; lumbar, except for spondylolisthesis (70472) in 1996 at 41 Years. SCS trial at [facility] complicated by early lead migration. Never had adequate trial. 8Surgical History Procedure/Surgical Profile 3 level Posterior fusion (98653) in 2013 at 58 Years. Spinal decompression (50473) in 2008 at 53 Years. Laminectomy with exploration and/or decompression of spinal cord and/or cauda equina, without facetectomy, foraminotomy or discectomy (eg, spinal stenosis), 1 or 2 vertebral segments; lumbar, except for spondylolisthesis (21686) in 1996 at 41 Years. SCS trial at [facility] complicated by early lead migration. Never had adequate trial. Social History Social History Type Response Smoking Status Former smoker, quit more than 30 days ago entered on: 12/01/18 Sex
--- OUTSIDE RECORDS SUMMARY | 2024-01-05 10:21 | XMS_ITS | Continuity of Care Document ---
Author Organization [facility] Address [address] [place] [address]- Care Team Providers Care Tool Dispatcher Name Role Phone Solis Roman MD Primary Care Physician Encounter [facility] Date(s): 09/26/23 - 10/26/23 [facility] [address] [place], [place] [address] Allergies, Adverse Reactions, Alerts No Known Allergies Immunizations Given and Recorded Vaccine Date Status Refusal Reason SARS-CoV-2(COVID-19)mRNA-LNP vac(fuv320) 04/11/23 Recorded influenza virus vaccine, inactivated 1 03/16/23 Re corded influenza virus vaccine, inactivated 04/08/22 Josué rded influenza virus vaccine, inactivated 04/19/21 Josué rded influenza virus vaccine, inactivated 2 05/03/19 Gi serafin influenza virus vaccine, inactivated 3 03/09/18 Gi serafin influenza virus vaccine, inactivated 03/10/16 Josué rded SARS-CoV-2 mRNA ([id number]-[id number]) vax 04/08/22 Recorded zoster vaccine, inactivated 11/18/21 Recorded zoster vaccine, inactivated 06/23/20 Recorded SARS-CoV-2 (COVID-19) mRNA BNT-162b2 vac 04/19/21 Recorded SARS-CoV-2 (COVID-19) mRNA-1273 vaccine 09/19/20 G iven SARS-CoV-2 (COVID-19) mRNA-1273 vaccine 08/22/20 G iven pneumococcal 23-valent vaccine 4 04/25/20 Given Influenza Virus Vaccine (oldterm) 03/20/20 Recorde d pneumococcal 13-valent vaccine 03/09/18 Given tetanus/diphtheria/pertussis, acel(Tdap) 5 12/23/16 Given 1Result [facility] 2Result Comment: [id number] 3Result Comment: [03/09/2018] [id number] 4Result Comment: [id number] 5Result Comment: [12/23/2016] given without incident.....vs Medications [...] capsule, 2 Refills, Maintenance, 10/06/23 8:33:00 EDT, [facility]/pharmacy #[id number], Partial fill upon patient request if the prescription is for a scheduleII opioid drug., 157, cm, 10/06/23 8:12:00 EDT, Hei... Start Date: 10/06/23 Status: Ordered duloxetine 60 mg oral enteric coated capsule 1 capsule, By Mouth, Daily, REFILL[employer] [facility] [employer]RU 07/2023, # 90 capsule, 3 Refills, 07/26/23 10:44:00 EST, [facility]/pharmacy #[id number], 157, cm, 07/26/23 10:22:00 EST, Height, 86, kg, 05/10/23 11:11:00 EST, Dry Weight Start Date: 07/26/23 Status: Ordered fluticasone 50 mcg/inh nasal spray 2 sprays = 100 mcg, Nares, Both, Daily in AM, # 16 Gm, 0 Refills, Maintenance, 08/26/23 8:53:00 EST, Colon, Partial fill upon patient request if the [...] 3 Refills, Maintenance, 07/26/23 10:42:00 EST, Tablet, [facility]/pharmacy #[id number], Partial fill upon patient request if the prescription is for a schedule II opioid drug., 157, cm, 07/26/23 10:22:00 EST... Start Date: 07/26/23 Stop Date: 07/20/24 Status: Ordered hydrochlorothiazide-triamterene 25 mg-37.5 mg oral capsule 1 capsule, By Mouth, Daily, # 90 capsule, 3 Refills, Maintenance, 07/26/23 10:42:00 EST, [facility]/pharmacy #[id number], 90, 1 capsule By Mouth Daily, [...] 05/02/23 21:24:00 EST, Route to Pharmacy Electronically, [facility] STORE [id number], 160, cm, 04/22/23 9:05:00 EDT, Height Start Date: 05/02/23 Status: Ordered valsartan 320 mg oral tablet See Instructions, TAKE 1 TABLET BY MOUTH EVERY DAY, # 90 tablet, 3 Refills, Maintenance, 09/26/23 23:22:00 EDT, [facility]/pharmacy #[id number], 157, cm, 08/26/23 8:33:00 EST, Height, [...] Venous (Peripheral) Insufficiency, Unspecified Confirmed Active 1initial [place]: 17 on 08/09/14 2initial Oswestry Disability Index: 57% ( severe disability ) on 08/09/14; initial Neck Disability Index: 40% on 08/16/14 3SOAPP-R: 19 ON 08/09/14 4On 05/31/2013 underwent left total knee arthroplasty with computer navigation for osteoarthritis, left knee by Luis Higgins M.D. at [facility]. 5On 09/24/2008 underwent 1. Open decompression right shoulder (acromioplasty, release of coracoacromial ligament). 2. Distal clavicle excision. 3. Repair of massive markedly retracted posterosuperior cuff tear. 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 at [facility]. 6Polysomnogram performed on 08/17/2014 at [facility] revealed 1. Obstructive sleep apnea, moderate 2. Hypoventilation with sleep 7Surgical History Procedure/Surgical Profile 3 level Posterior fusion (92250) in 2013 at 58 Years. Spinal decompression (43635) in 2008 at 53 Years. Laminectomy with exploration and/or decompression of spinal cord and/or cauda equina, without facetectomy, foraminotomy or discectomy (eg, spinal stenosis), 1 or 2 vertebral segments; lumbar, except for spondylolisthesis (41183) in 1996 at 41 Years. SCS trial at [facility] complicated by early lead migration. Never had adequate trial. 8Surgical History Procedure/Surgical Profile 3 level Posterior fusion (91217) in 2014 at 58 Years. Spinal decompression (18719) in 2008 at 53 Years. Laminectomy with exploration and/or decompression of spinal cord and/or cauda equina, without facetectomy, foraminotomy or discectomy (eg, spinal stenosis), 1 or 2 vertebral segments; lumbar, except for spondylolisthesis (27045) in 1996 at 41 Years. SCS trial at [facility] complicated by early lead migration. Never had adequate trial. Social History Social History Type Response Smoking Status Former smoker, quit more than 30 days ago entered on: 12/01/18 Sex Patient Care team information Care Team Personnel Name: Luis Combs RN Position: [facility] RN Member Role: Primary Care Nurse Name: Solis Roman MD Position: [facility] Physician - Primary Care Member Role: PCP Address: Address: [address] [place] [address] Adult & Pediatric Medicine [place], [place] [address] Name: Iris Al RN Position: S RN Member Role: Primary Care Nurse Name: Stacie Guardado RN Position: [facility] SN RN Member Role: Primary Care Nurse Name: Tk Mendoza RN Position: S RN Member Role: Primary Care Nurse Care Team Related Persons Name: RANDY CAPUTO Address: [place] [address] Name: ERIN CHATTERJEE Address: home [address] [place] [address] Name: CRISTA WEST Address: home [address] [place] [address]
--- OUTSIDE RECORDS SUMMARY | 2024-01-05 10:21 | XMS_ITS | Continuity of Care Document ---
Author Organization [facility] Address [address] [place] [address]- Care Team Providers Care Geothermal Electrical Engineer Name Role Phone Solis Roman MD Primary Care Physician Encounter [facility] Date(s[place] 07/21/22 - 08/20/22 [facility] [address] [place], [place] [address] Attending Physician: Mary Cantu Admitting Physician: AdmtrMary Referring Physician: Admtr, ArMeaghan Allergies, Adverse Reactions, Alerts No Known Allergies Immunizations Given and Recorded Vaccine Date Status Refusal Reason SARS-CoV-2 mRNA ([id number]-oxflp) vax 04/08/22 Recorded influenza virus vaccine, inactivated [...] tetanus/diphtheria/pertussis, acel(Tdap) 4 12/23/16 Given 1Result Comment: [id number] 2Result Comment: [03/09/2018] [id number] 3Result Comment: [id number] 4Result Comment: [12/23/2016] given without incident.....vs Medications [...] 0, Maintenance,controlled substance agreement signed 08/30/14; preferred pharm:[facility]. dx: failed back sydrome, 08/30/14 10:48:33, Compound Start Date: 08/30/14 Status: Ordered doxepin 150 mg oral capsule 1 capsule, By Mouth, Daily at bedtime, # 90 capsule, 3 Refills, [facility] STORE [id number], 160, cm, 06/22/21 15:54:00 EST, Height, 86.5, kg, 05/07/20 6:28:00 EST, Dry Weight Start Date: 07/21/21 Status: Ordered duloxetine 60 mg oral enteric coated capsule 1 capsule, By Mouth, Daily, REFILL[employer] [facility] [employer]RU 07/2023, # 90 capsule, 3 Refills, 07/27/22 15:27:00 EST, [facility]/pharmacy #[id number], 160, cm, 08/31/21 15:19:00 EDT, Height Start Date: 07/27/22 Status: Ordered gabapentin 800 mg oral tablet 1 tablet = 800 mg, By Mouth, 3 times a day, # 90 tablet, 11 Refills, Maintenance, 10/05/21 12:46:00EDT, Tablet, [facility]/pharmacy #[id number], Partial fill upon patient request if the prescription is for a schedule II opioid drug., 160, cm, 08/31/21 15:19:00 ED... Start Date: 10/05/21 Status: Ordered hydrALAZINE 25 mg oral tablet 25 mg, 1, tablet, By Mouth, 2 times a day, # 60 tablet, Refills 11, Tot. Refills 11, Maintenance, 08/13/22 9:21:00 EST, Route to Pharmacy Electronically, [facility]/pharmacy #[id number], Partial fill upon patientrequest if the prescription is for a schedule II op... Start Date: 08/13/22 Status: Ordered hydrochlorothiazide-triamterene 25 mg-37.5 mg oral capsule 1 capsule, By Mouth, Daily, # 90 capsule, 1 Refills, Maintenance, 05/27/22 11:51:00 EST, [facility] STORE [id number], 90, TAKE 1 CAPSULE BY MOUTH EVERY [...] tablet, 3 Refills, Maintenance, 06/18/21 14:42:00 EST, [facility]/pharmacy#[id number], 160, cm, 06/18/21 14:17:00 EST, Height, 86.5, kg, 05/07/20 6:28:00 EST, Dry Weight Start Date: 06/18/21 Status: Ordered tiZANidine 2 mg oral tablet 4 mg, 2, tablet, By Mouth, Daily at bedtime, # 180 tablet, Refills 3, Tot. Refills 3, Maintenance, 01/19/22 11:02:00 EDT, [facility] to [facility]ically, [id number], 160, cm, 08/31/21 15:19:00 EDT, Height, 86.5, kg, 05/07/20 6:28:00 EST, Dry... Start Date: 01/19/22 Stop Date: 01/14/23 Status: Ordered traZODone 50 mg oral tablet See Instructions, TAKE 1 TABLET BY MOUTH EVERYDAY AT BEDTIME, # 90 tablet, Refills 1, Tot. Refills 1, Maintenance, 07/27/22 12:16:00 EST, Instructions Replace Required Details, Route to Pharmacy Electronically, [facility]/pharmacy #[id number], 160, cm, 08/31/21 15... Start Date: 07/27/22 Status: Ordered valsartan 320 mg oral tablet 1 tablet, By Mouth, Daily, # 90 tablet, 1 Refills, Maintenance, 05/27/22 11:53:00 EST, [facility] STORE [id number], 160, cm, 08/31/21 15:19:00 EDT, Height Start [...] Venous (Peripheral) Insufficiency, Unspecified Confirmed Active 1initial [place]: 17 on 08/09/14 2initial Oswestry Disability Index: 57% ( severe disability ) on 08/09/14; initial Neck Disability Index: 40% on 08/16/14 3SOAPP-R: 19 ON 08/09/14 4On 05/31/2013 underwent left total knee arthroplasty with computer navigation for osteoarthritis, left knee by Luis Higgins M.D. at [facility]. 5On 09/24/2008 underwent 1. Open decompression right shoulder (acromioplasty, release of coracoacromial ligament). 2. Distal clavicle excision. 3. Repair of massive markedly retracted posterosuperior cuff tear. 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 at [facility]. 6Polysomnogram performed on 08/17/2014 at [facility] revealed 1. Obstructive sleep apnea, moderate 2. Hypoventilation with sleep 7Surgical History Procedure/Surgical Profile 3 level Posterior fusion (61932) in 2013 at 58 Years. Spinal decompression (63236) in 2008 at 53 Years. Laminectomy with exploration and/or decompression of spinal cord and/or cauda equina, without facetectomy, foraminotomy or discectomy (eg, spinal stenosis), 1 or 2 vertebral segments; lumbar, except for spondylolisthesis (44964) in 1996 at 41 Years. SCS trial at [facility] complicated by early lead migration. Never had adequate trial. 8Surgical History Procedure/Surgical Profile 3 level Posterior fusion (99414) in 2013 at 58 Years. Spinal decompression (36488) in 2008 at 53 Years. Laminectomy with exploration and/or decompression of spinal cord and/or cauda equina, without facetectomy, foraminotomy or discectomy (eg, spinal stenosis), 1 or 2 vertebral segments; lumbar, except for spondylolisthesis (44975) in 1996 at 41 Years. SCS trial at [facility] complicated by early lead migration. Never had adequate trial. Social History Social History Type Response Smoking Status Former smoker, quit more than 30 days ago entered on: 12/01/18 Sex Note * Event Display: IR Special Procedures, Non- Authored Date: * Event Display: MRI Spine, Non- BH Authored Date: * Event Display: Non Lab Results Authored Date: Patient Care team information Care Team Personnel Name: Luis Combs RN Position: [facility] RN Member Role: Primary Care Nurse Name: Solis Roman MD Position: [facility] Primary Care Physician Member Role: PCP Address: Address: [address] [place] [address] Adult & [place] [address]- Name: Loni Ervin RN Position: S RN Member Role: Primary Care Nurse Name: Tk Mendoza RN Position: S RN Member Role: Primary Care Nurse Care Team Related Persons Name: RANDY CAPUTO Address: [place] [address] Name: ERIN CHATTERJEE Address: home [address] [place] [address] Name: CRISTA WEST Address: home [address] [place] [address]
--- OUTSIDE RECORDS SUMMARY | 2024-01-05 10:22 | XMS_ITS | Continuity of Care Document ---
Author Organization [facility] Address [address] [place] [address]- Care Team Providers Care Slide Forming Machine Tender Name Role Phone Solis Roman MD Primary Care Physician Encounter [facility] Date(s): 05/29/23 - 06/28/23 [facility] [address] [place], [place] [address] Allergies, Adverse Reactions, Alerts No Known [...] vaccine, inactivated 03/10/16 Josué rded SARS-CoV-2 mRNA (moflvmh-nzrs-cibnt) vax 04/08/22 Recorded zoster vaccine, inactivated 11/18/21 Recorded zoster vaccine, inactivated 06/23/20 Recorded SARS-CoV-2 (COVID-19) mRNA BNT-162b2 vac 04/19/21 Recorded SARS-CoV-2 (COVID-19) mRNA-1273 vaccine 09/19/20 G iven SARS-CoV-2 (COVID-19) mRNA-1273 vaccine 08/22/20 G iven pneumococcal 23-valent vaccine 4 04/25/20 Given Influenza Virus Vaccine (oldterm) 03/20/20 Recorde d pneumococcal 13-valent vaccine 03/09/18 Given tetanus/diphtheria/pertussis, acel(Tdap) 5 12/23/16 Given 1Result [facility] 2Result Comment: [id number] 3Result Comment: [03/09/2018] [id number] 4Result Comment: [id number] 5Result Comment: [12/23/2016] given without incident.....vs Medications [...] 90 capsule, 3 Refills, 08/23/22 11:39:00 EST, [facility]/pharmacy#2339, 160, cm, 08/31/21 15:19:00 EDT, Height Start Date: 08/23/22 Status: Ordered duloxetine 60 mg oral enteric coated capsule 1 capsule, By Mouth, Daily, REFILLS [facility] THRU 07/2023, # 90 capsule, 3 Refills, 07/27/22 15:27:00 EST, [facility]/pharmacy #[id number], 160, cm, 08/31/21 15:19:00 [...] drug. Start Date: 05/05/23 Status: Ordered hydrALAZINE 25 mg oral tablet 25 mg, 1, tablet, By Mouth, 2 times a day, # 60 tablet, Refills 11, Tot. Refills 11, Maintenance, 08/13/22 9:21:00 EST, Route to [facility], [id number], Partial fill upon patientrequest if the prescription is for a schedule II op... Start Date: 08/13/22 Status: Ordered hydrochlorothiazide-triamterene 25 mg-37.5 mg oral capsule 1 capsule, By Mouth, Daily, # 90 capsule, 0 Refills, Maintenance, 05/29/23 22:06:00 EST, [facility]/pharmacy #[id number], 90, 1 capsule By Mouth Daily, 157, cm, 05/12/23 11:57:00 EST, Height, 86, kg, 05/10/23 11:11:00 EST, Dry Weight Start Date: 05/29/23 Status: Ordered Metoprolol Succinate ER 50 mg oral tablet, extended release 1 tablet, By Mouth, Daily, # 90 tablet, 3 Refills, Maintenance, 09/21/22 13:56:00 EDT, [facility]/pharmacy#2339, 160, cm, 08/31/21 15:19:00 EDT, Height Start Date: 09/21/22 Status: Ordered tiZANidine 2 mg oral tablet 4 mg, 2, tablet, By Mouth, Daily at bedtime, # 180 tablet, Refills 3, Tot. Refills 3, Maintenance, 06/01/23 13:04:00 EST, Route to Pharmacy Electronically, [facility]/pharmacy #[id number], 157, cm, 05/12/23 11:57:00 EST, Height, 86, kg, 05/10/23 11:11:00 EST, Dry... Start Date: 06/01/23 Stop Date: 05/26/24 Status: Ordered traZODone 50 mg oral tablet 1, tablet, By Mouth, Daily at bedtime, # 90 tablet, Refills 3, Maintenance, 05/02/23 21:24:00 EST, Route to Pharmacy Electronically, [facility] STORE [id number], 160, cm, 04/22/23 9:05:00 EDT, Height Start Date: 05/02/23 Status: Ordered valsartan 320 mg oral tablet 1 tablet, By Mouth, Daily, # 90 tablet, 1 Refills, Maintenance, 06/28/23 11:30:00 EST, [facility]/pharmacy#2339, 157, cm, 06/21/23 15:00:00 EST, Height, 86, kg, 05/10/23 11:11:00 EST, Dry Weight Start Date: 06/28/23 Status: Ordered Problem List Condition Confirmation Course [...] Venous (Peripheral) Insufficiency, Unspecified Confirmed Active 1initial [place]: 17 on 08/09/14 2initial Oswestry Disability Index: [...] History Procedure/Surgical Profile 3 level Posterior fusion (73006) in 2013 at 58 Years. Spinal decompression (13592) in 2008 at 53 Years. Laminectomy with exploration and/or decompression of spinal cord and/or cauda equina, without facetectomy, foraminotomy or discectomy (eg, spinal stenosis), 1 or 2 vertebral segments; lumbar, except for spondylolisthesis (99782) in 1996 at 41 Years. SCS trial at [facility] complicated by early lead migration. Never had adequate trial. 8Surgical History Procedure/Surgical Profile 3 level Posterior fusion (99122) in 2013 at 58 Years. Spinal decompression (16269) in 2008 at 53 Years. Laminectomy with exploration and/or decompression of spinal cord and/or cauda equina, without facetectomy, foraminotomy or discectomy (eg, spinal stenosis), 1 or 2 vertebral segments; lumbar, except for spondylolisthesis (68038) in 1996 at 41 Years. SCS trial at [facility] complicated by early lead migration. Never had adequate trial. Social History Social History Type Response Smoking Status Former smoker, quit more than 30 days ago entered on: 12/01/18 Sex Patient Care team information Care Team Personnel Name: Luis Combs RN Position: [facility] RN Member Role: Primary Care Nurse Name: Solis Roman MD Position: [facility] Physician - Primary Care Member Role: PCP Address: Address: [address] [place] [address] Adult & Pediatric Medicine [place], [place] [address] Name: Iris Al RN Position: S RN Member Role: Primary Care Nurse Name: Stacie Guardado RN Position: [facility] RN Member Role: Primary Care Nurse Name: Tk Mendoza RN Position: S RN Member Role: Primary Care Nurse Care Team Related Persons Name: RANDY CAPUTO Address: [place] [address] Name: ERIN CHATTERJEE Address: [address] [place] [address] Name: CRISTA WEST Address: home [address] [place] [id number]
--- OUTSIDE RECORDS SUMMARY | 2024-01-05 10:22 | XMS_ITS | Continuity of Care Document ---
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 Phone Abel OTERO, Solis Li Primary [facility] Phys[facility]20 - 02/07/20 [facility] [address] [place] [address]- [facility] Allergies, Adverse Reactions, Alerts No Known Medication Allergies Substance Reaction Severity Status NKA Active Immunizations Given and Recorded Vaccine Date Status Refusal Reason influenza virus vaccine, inactivated 1 05/03/19 Gi serafin influenza virus vaccine, inactivated 2 03/09/18 Gi serafin influenza virus vaccine, inactivated 03/10/16 Josué rded pneumococcal 13-valent vaccine 03/09/18 Given tetanus/diphtheria/pertussis, acel(Tdap) 3 12/23/16 Given 1Result Comment: [id number] 2Result Comment: [03/09/2018] [id number] 3Result Comment: [12/23/2016] given without incident.....vs Medications [...] Stockings See Instructions, # 3 each, Refills 2, Tot. Refills 2, Maintenance, surgical, thigh high length 30-40 mm Hg Dx: lymphedema, lipedema, 01/08/20 17:05:00 EDT, Compound Start Date: 01/08/20 Status: Ordered Controlled substance agreement Controlled substance agreement, See Instructions, # 1 each, Refills 0, Tot. Refills 0, Maintenance,controlled substance agreement signed 08/30/14; preferred pharm:[facility]. dx: failed back sydrome, 08/30/14 10:48:33, Compound Start Date: 08/30/14 Status: Ordered duloxetine 60 mg oral enteric coated capsule 1 capsule = 60 mg, By Mouth, Daily, # 30 capsule, 11 Refills, Maintenance, 10/15/19 9:12:00 EDT, Capsule, [facility]/pharmacy #[id number], 159, cm, 08/20/19 13:42:00 EST, Height, 93.1, kg, 11/21/18 12:27:00 EDT, Dry Weight Start Date: 10/15/19 Status: Ordered gabapentin 800 mg oral tablet TAKE 1 TABLET BY MOUTH THREE TIMES A DAY Start Date: 01/14/20 Status: Ordered hydrochlorothiazide-triamterene 25 mg-37.5 mg oral capsule 1 capsule, By Mouth, Daily, # 90 capsule, 0 Refills, Maintenance, 11/29/19 9:26:00 EDT, Capsule, [facility]/pharmacy #[id number], 1 capsule By Mouth Daily,x90 days, 159, cm, 08/20/19 13:42:00 EST, Height, 93.1, kg, 11/21/18 12:27:00 EDT, Dry Weight Start Date: 11/29/19 Stop Date: 02/27/20 Status: Ordered Juxta-Fit compression stockings Juxta-Fit compression [...] 06/25/19 13:39:00 EST, Route to Pharmacy Electronically, [facility]/pharmacy #[id number], this is an increase, 159, cm, [...] 10/15/19 9:13:00 EDT, Route to Pharmacy Electronically, [facility]/pharmacy #[id number], 159, cm, 08/20/19 13:42:00EST, Height, 93.1, [...] Maintenance, 01/13/2018:58:00 EDT, Route to Pharmacy Electronically, [facility]/pharmacy #[id number], 159, cm, 08/20/19 13:42:00 EST,Height, 93.1, [...] Venous (Peripheral) Insuffic iency, Unspecified(Confirmed) Active 1initial [place]: 17 on 08/09/14 2initial Oswestry Disability Index: 57% ( severe disability ) on 08/09/14; initial Neck Disability Index: 40% on 08/16/14 3SOAPP-R: 19 ON 08/09/14 4On 05/31/2013 underwent left total knee arthroplasty with computer navigation for osteoarthritis, left knee by Luis Higgins M.D. at [facility]. 5On 09/24/2008 underwent 1. Open decompression right shoulder (acromioplasty, release of coracoacromial ligament). 2. Distal clavicle excision. 3. Repair of massive markedly retracted posterosuperior cuff tear. 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 at [facility]. 6Polysomnogram performed on 08/17/2014 at [facility] revealed 1. Obstructive sleep apnea, moderate 2. Hypoventilation with sleep 7Surgical History Procedure/Surgical Profile 3 level Posterior fusion (79715) in 2013 at 58 Years. Spinal decompression (61701) in 2008 at 53 Years. Laminectomy with exploration and/or decompression of spinal cord and/or cauda equina, without facetectomy, foraminotomy or discectomy (eg, spinal stenosis), 1 or 2 vertebral segments; lumbar, except for spondylolisthesis (14320) in 1996 at 41 Years. SCS trial at [facility] complicated by early lead migration. Never had adequate trial. 8Surgical History Procedure/Surgical Profile 3 level Posterior fusion (74386) in 2013 at 58 Years. Spinal decompression (77872) in 2008 at 53 Years. Laminectomy with exploration and/or decompression of spinal cord and/or cauda equina, without facetectomy, foraminotomy or discectomy (eg, spinal stenosis), 1 or 2 vertebral segments; lumbar, except for spondylolisthesis (39260) in 1996 at 41 Years. SCS trial at [facility] complicated by early lead migration. Never had adequate trial. Social History Social History Type Response Smoking Status Former smoker, quit more than 30 days ago entered on: 12/01/18 Sex
--- OUTSIDE RECORDS SUMMARY | 2024-01-05 10:22 | XMS_ITS | Continuity of Care Document ---
Author Organization [facility] Address [address] [place] [address]- Care Team Providers Care Glove Presser Name Role Phone Solis Roman MD Primary Care Physician [facility]): 06[facility]23 - 07/01/23 [facility] [address] [place], [place] [address] [place] Allergies, Adverse Reactions, Alerts No Known Allergies Immunizations Given and Recorded Vaccine Date Status Refusal Reason influenza virus vaccine, inactivated 1 03/16/23 Re corded influenza virus vaccine, inactivated 04/08/22 Josué rded influenza virus vaccine, inactivated 04/19/21 Josué rded influenza virus vaccine, inactivated 2 05/03/19 Gi serafin influenza virus vaccine, inactivated 3 03/09/18 Gi serafin influenza virus vaccine, inactivated 03/10/16 Josué rded SARS-CoV-2 mRNA ([id number]) vax 04/08/22 Recorded zoster vaccine, inactivated 11/18/21 Recorded zoster vaccine, inactivated 06/23/20 Recorded SARS-CoV-2 (COVID-19) mRNA BNT-162b2 vac 04/19/21 Recorded SARS-CoV-2 (COVID-19) mRNA-1273 vaccine 09/19/20 G iven SARS-CoV-2 (COVID-19) mRNA-1273 vaccine 08/22/20 G iven pneumococcal 23-valent vaccine 4 04/25/20 Given Influenza Virus Vaccine (oldterm) 03/20/20 Recorde d pneumococcal 13-valent vaccine 03/09/18 Given tetanus/diphtheria/pertussis, acel(Tdap) 5 12/23/16 Given 1Result Comment: [facility] 2Result Comment: [id number] 3Result Comment: [03/09/2018] [id number] 4Result Comment: [id number] 5Result Comment: [12/23/2016] given without incident.....vs Medications [...] 90 capsule, 3 Refills, 08/23/22 11:39:00 EST, [facility]/pharmacy#[id number], 160, cm, 08/31/21 15:19:00 EDT, Height Start Date: 08/23/22 Status: Ordered duloxetine 60 mg oral enteric coated capsule 1 capsule, By Mouth, Daily, REFILLS [employer]RU 07/2023, # 90 capsule, 3 Refills, 07/27/22 15:27:00 EST, [facility]/pharmacy #[id number], 160, cm, 08/31/21 15:19:00 EDT, Height [...] 08/13/22 9:21:00 EST, Route to Pharmacy Electronically, [facility]/pharmacy #[id number], Partial fill upon patientrequest if the prescription is for a schedule II op... Start Date: 08/13/22 Status: Ordered hydrochlorothiazide-triamterene 25 mg-37.5 mg oral capsule 1 capsule, By Mouth, Daily, # 90 capsule, 0 Refills, Maintenance, 05/29/23 22:06:00 EST, [facility]/pharmacy #[id number], 90, 1 capsule By Mouth Daily, 157, cm, 05/12/23 11:57:00 EST, Height, 86, kg, 05/10/23 11:11:00 EST, Dry Weight Start Date: 05/29/23 Status: Ordered Metoprolol Succinate ER 50 mg oral tablet, extended release 1 tablet, By Mouth, Daily, # 90 tablet, 3 Refills, Maintenance, 09/21/22 13:56:00 EDT, [facility]/pharmacy#[id number], 160, cm, 08/31/21 15:19:00 EDT, Height Start Date: 09/21/22 Status: Ordered tiZANidine 2 mg oral tablet 4 mg, 2, tablet, By Mouth, Daily at bedtime, # 180 tablet, Refills 3, Tot. Refills 3, Maintenance, 06/01/23 13:04:00 EST, Route to Pharmacy Electronically, [facility]/pharmacy #[id number], 157, cm, 05/12/23 11:57:00 EST, Height, 86, kg, 05/10/23 11:11:00 EST, Dry... Start Date: 06/01/23 Stop Date: 05/26/24 Status: Ordered traZODone 50 mg oral tablet 1, tablet, By Mouth, Daily at bedtime, # 90 tablet, Refills 3, Maintenance, 05/02/23 21:24:00 EST, Route to Pharmacy Electronically, [facility] STORE [id number], 160, cm, 04/22/23 9:05:00 EDT, Height Start Date: 05/02/23 Status: Ordered valsartan 320 mg oral tablet 1 tablet, By Mouth, Daily, # 90 tablet, 1 Refills, Maintenance, 06/28/23 11:30:00 EST, [facility]/pharmacy#[id number], 157, cm, 06/21/23 15:00:00 EST, Height, 86, [...] Venous (Peripheral) Insufficiency, Unspecified Confirmed Active 1initial [place]: 17 on 08/09/14 2initial Oswestry Disability Index: 57% ( severe disability ) on 08/09/14; initial Neck Disability Index: 40% on 08/16/14 3SOAPP-R: 19 ON 08/09/14 4On 05/31/2013 underwent left total knee arthroplasty with computer navigation for osteoarthritis, left knee by Luis Higgins M.D. at [facility]. 5On 09/24/2008 underwent 1. Open decompression right shoulder (acromioplasty, release of coracoacromial ligament). 2. Distal clavicle excision. 3. Repair of massive markedly retracted posterosuperior cuff tear. 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 at [facility]. 6Polysomnogram performed on 08/17/2014 at [facility] revealed 1. Obstructive sleep apnea, moderate 2. Hypoventilation with sleep 7Surgical History Procedure/Surgical Profile 3 level Posterior fusion (13850) in 2013 at 58 Years. Spinal decompression (39304) in 2008 at 53 Years. Laminectomy with exploration and/or decompression of spinal cord and/or cauda equina, without facetectomy, foraminotomy or discectomy (eg, spinal stenosis), 1 or 2 vertebral segments; lumbar, except for spondylolisthesis (27336) in 1996 at 41 Years. SCS trial at [facility] complicated by early lead migration. Never had adequate trial. 8Surgical History Procedure/Surgical Profile 3 level Posterior fusion (13496) in 2013 at 58 Years. Spinal decompression (89005) in 2008 at 53 Years. Laminectomy with exploration and/or decompression of spinal cord and/or cauda equina, without facetectomy, foraminotomy or discectomy (eg, spinal stenosis), 1 or 2 vertebral segments; lumbar, except for spondylolisthesis (76882) in 1996 at 41 Years. SCS trial at [facility] complicated by early lead migration. Never had adequate trial. Social History Social History Type Response Smoking Status Former smoker, quit more than 30 days ago entered on: 12/01/18 Sex Patient Care team information Care Team Personnel Name: Luis Combs RN Position: [facility] RN Member Role: Primary Care Nurse Name: Solis Roman MD Position: [facility] Physician - Primary Care Member Role: PCP Address: Address: [address] [place] [address] Adult & Pediatric Medicine [place], [place] [address] [place] Name: Iris Al RN Position: S RN Member Role: Primary Care Nurse Name: Stacie Guardado RN Position: [facility] RN Member Role: Primary Care Nurse Name: Tk Mendoza RN Position: [facility] RN Member Role: Primary Care Nurse Care Team Related Persons Name: RANDY CAPUTO Address: [place] [address] Name: ERIN CHATTERJEE Address: home [address] [place] [id number] Name: CRISTA WEST Address: [address] [address]
--- OUTSIDE RECORDS SUMMARY | 2024-01-05 10:22 | XMS_ITS | Continuity of Care Document ---
Author Organization [facility] Address [address] [place] [address]- Care Team Providers Care Lead Java Programmer Name Role Phone Solis Roman MD Primary Care Physician [facility]): 08/13/22 - 09/12/22 [facility] [address] [place], [place] [address] Allergies, Adverse Reactions, Alerts No Known Allergies Immunizations Given and Recorded Vaccine Date Status Refusal Reason SARS-CoV-2 mRNA (nizprqm-pbbr-bozmr) vax 04/08/22 Recorded influenza virus vaccine, inactivated [...] tetanus/diphtheria/pertussis, acel(Tdap) 4 12/23/16 Given 1Result Comment: [id number] 2Result Comment: [03/09/2018] [id number] 3Result Comment: [id number] 4Result Comment: [12/23/2016] given without incident.....vs Medications [...] 0, Maintenance,controlled substance agreement signed 08/30/14; preferred pharm:[facility]. dx: failed back sydrome, 08/30/14 10:48:33, Compound Start Date: 08/30/14 Status: Ordered doxepin 150 mg oral capsule 1 capsule, By Mouth, Daily at bedtime, # 90 capsule, 3 Refills, 08/23/22 11:39:00 EST, [facility]/pharmacy#[id number], 160, cm, 08/31/21 15:19:00 EDT, Height Start Date: 08/23/22 Status: Ordered duloxetine 60 mg oral enteric coated capsule 1 capsule, By Mouth, Daily, REFILLS GOOD THRU 07/2023, # 90 capsule, 3 Refills, 07/27/22 15:27:00 EST, [facility]/pharmacy #[id number], 160, cm, 08/31/21 15:19:00 EDT, Height Start Date: 07/27/22 Status: Ordered gabapentin 800 mg oral tablet 1 tablet = 800 mg, By Mouth, 3 times a day, # 90 tablet, 11 Refills, Maintenance, 10/05/21 12:46:00EDT, Tablet, [facility]/pharmacy #[id number], Partial fill upon patient request if the prescription is for a schedule II opioid drug., 160, cm, 08/31/21 15:19:00 ED... Start Date: 10/05/21 Status: Ordered hydrALAZINE 25 mg oral tablet 25 mg, 1, tablet, By Mouth, 2 times a day, # 60 tablet, Refills 11, Tot. Refills 11, Maintenance, 08/13/22 9:21:00 EST, Route to Pharmacy Electronically, [facility]/pharmacy #[id number], Partial fill upon patientrequest if the prescription is for a schedule II op... Start Date: 08/13/22 Status: Ordered hydrochlorothiazide-triamterene 25 mg-37.5 mg oral capsule 1 capsule, By Mouth, Daily, # 90 capsule, 1 Refills, Maintenance, 05/27/22 11:51:00 EST, [facility] STORE [id number], 90, TAKE 1 CAPSULE BY MOUTH EVERY [...] tablet, 3 Refills, Maintenance, 06/18/21 14:42:00 EST, [facility]/pharmacy#[id number], 160, cm, 06/18/21 14:17:00 EST, Height, 86.5, kg, 05/07/20 6:28:00 EST, Dry Weight Start Date: 06/18/21 Status: Ordered tiZANidine 2 mg oral tablet 4 mg, 2, tablet, By Mouth, Daily at bedtime, # 180 tablet, Refills 3, Tot. Refills 3, Maintenance, 01/19/22 11:02:00 EDT, Route to Pharmacy Electronically, [facility]/pharmacy #[id number], 160, cm, 08/31/21 15:19:00 EDT, Height, 86.5, kg, 05/07/20 6:28:00 EST, Dry... Start Date: 01/19/22 Stop Date: 01/14/23 Status: Ordered traZODone 50 mg oral tablet See Instructions, TAKE 1 TABLET BY MOUTH EVERYDAY AT BEDTIME, # 90 tablet, Refills 1, Tot. Refills 1, Maintenance, 07/27/22 12:16:00 EST, Instructions Replace Required Details, Route to Pharmacy Electronically, [facility]/pharmacy #[id number], 160, cm, 08/31/21 15... Start Date: 07/27/22 Status: Ordered valsartan 320 mg oral tablet 1 tablet, By Mouth, Daily, # 90 tablet, 1 Refills, Maintenance, 05/27/22 11:53:00 EST, [id number], 160, cm, 08/31/21 15:19:00 EDT, Height Start [...] Venous (Peripheral) Insufficiency, Unspecified Confirmed Active 1initial [place]: 17 on 08/09/14 2initial Oswestry Disability Index: 57% ( severe disability ) on 08/09/14; initial Neck Disability Index: 40% on 08/16/14 3SOAPP-R: 19 ON 08/09/14 4On 05/31/2013 underwent left total knee arthroplasty with computer navigation for osteoarthritis, left knee by Luis Higgins M.D. at [facility]. 5On 09/24/2008 underwent 1. Open decompression right shoulder (acromioplasty, release of coracoacromial ligament). 2. Distal clavicle excision. 3. Repair of massive markedly retracted posterosuperior cuff tear. 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 at [facility]. 6Polysomnogram performed on 08/17/2014 at [facility] revealed 1. Obstructive sleep apnea, moderate 2. Hypoventilation with sleep 7Surgical History Procedure/Surgical Profile 3 level Posterior fusion (69752) in 2013 at 58 Years. Spinal decompression (52705) in 2008 at 53 Years. Laminectomy with exploration and/or decompression of spinal cord and/or cauda equina, without facetectomy, foraminotomy or discectomy (eg, spinal stenosis), 1 or 2 vertebral segments; lumbar, except for spondylolisthesis (62998) in 1996 at 41 Years. SCS trial at [facility] complicated by early lead migration. Never had adequate trial. 8Surgical History Procedure/Surgical Profile 3 level Posterior fusion (09389) in 2013 at 58 Years. Spinal decompression (30658) in 2008 at 53 Years. Laminectomy with exploration and/or decompression of spinal cord and/or cauda equina, without facetectomy, foraminotomy or discectomy (eg, spinal stenosis), 1 or 2 vertebral segments; lumbar, except for spondylolisthesis (29148) in 1996 at 41 Years. SCS trial at [facility] complicated by early lead migration. Never had adequate trial. Social History Social History Type Response Smoking Status Former smoker, quit more than 30 days ago entered on: 12/01/18 Sex Patient Care team information Care Team Personnel Name: Luis Combs RN Position: S RN Member Role: Primary Care Nurse Name: Solis Roman MD Position: [facility] Primary Care Physician Member Role: PCP Address: Address: [address] [place] [address] Adult & Pediatric Medicine [place], [place] [address] Name: Loni Ervin RN Position: S RN Member Role: Primary Care Nurse Name: Tk Mendoza RN Position: S RN Member Role: Primary Care Nurse Care Team Related Persons Name: RANDY CAPUTO Address: [place] [address] Name: ERIN CHATTERJEE Address: home [address] [place] [address] Name: CRISTA WEST Address: home [address] [place] [id number]
--- OUTSIDE RECORDS SUMMARY | 2024-01-05 10:22 | XMS_ITS | Continuity of Care Document ---
Author Organization [facility] Address [address] [place] [address]- Care Team Providers Care Assistant Production Editor Name Role Phone Solis Roman MD Primary Care Physician [phone] [facility]counter [facility] Date(s): 05/04/23 - 06/03/23 [facility] [address] [place] [address]- Allergies, Adverse Reactions, Alerts No Known Allergies Immunizations Given and Recorded Vaccine Date Status Refusal Reason influenza virus vaccine, inactivated 1 03/16/23 Re corded influenza virus vaccine, inactivated 04/08/22 Josué rded influenza virus vaccine, inactivated 04/19/21 Josué rded influenza virus vaccine, inactivated 2 05/03/19 Gi serafin influenza virus vaccine, inactivated 3 03/09/18 Gi serafin influenza virus vaccine, inactivated 03/10/16 Josué rded SARS-CoV-2 mRNA ([id number]) vax 04/08/22 Recorded zoster vaccine, inactivated 11/18/21 Recorded zoster vaccine, inactivated 06/23/20 Recorded SARS-CoV-2 (COVID-19) mRNA BNT-162b2 vac 04/19/21 Recorded SARS-CoV-2 (COVID-19) mRNA-1273 vaccine 09/19/20 G iven SARS-CoV-2 (COVID-19) mRNA-1273 vaccine 08/22/20 G iven pneumococcal 23-valent vaccine 4 04/25/20 Given Influenza Virus Vaccine (oldterm) 03/20/20 Recorde d pneumococcal 13-valent vaccine 03/09/18 Given tetanus/diphtheria/pertussis, acel(Tdap) 5 12/23/16 Given 1Result Comment: [facility] 2Result Comment: [id number] 3Result Comment: [03/09/2018] [id number] 4Result Comment: [id number] 5Result Comment: [12/23/2016] given without incident.....vs Medications acetaminophen 325 mg oral tablet 650 mg, By Mouth, Every 6 hours, May take OTC follow directions on bottle not to exceed 3000 mg/day, Refills 0, Maintenance, 05/08/20 7:54:00 EST, Partial fill upon patient request Start Date: 05/08/20 Status: Ordered apixaban 2.5 mg oral tablet = 2.5 mg, By Mouth, 2 times a day, # 60 tablet, 0 Refills, Maintenance, 05/11/23 8:29:00 EST, Tablet, Partial fill upon patient request if the prescription is for a schedule II opioid drug., 157, cm,05/11/23 7:10:00 EST, Height, 86, kg, 05/10/23 11:1... Start Date: 05/11/23 Stop Date: 06/10/23 Status: Ordered celecoxib 200 mg oral capsule = 200 mg, By Mouth, Daily, 0 Refills, Maintenance, 05/11/23 8:32:00 EST, Capsule, Partial fill uponpatient request if the prescription is for a schedule II opioid drug. Start Date: 05/11/23 Status: Ordered cevimeline 30 mg oral capsule 1 capsule = 30 mg, By Mouth, 3 times a day, PRN Other, dry mouth, 0 Refills, Maintenance, 08/09/14 15:13:58 EST Start Date: 08/09/14 Status: Ordered Colace Capsule 100 mg, 1, capsule, By Mouth, 2 times a day, PRN, Refills 0, Maintenance, as needed for constipation, 05/11/23 8:32:00 EST, Partial fill upon patient request if the prescription is for a schedule II opioid drug. Start Date: 05/11/23 Status: Ordered doxepin 150 mg oral capsule 1 capsule, By Mouth, Daily at bedtime, # 90 capsule, 3 Refills, 08/23/22 11:39:00 EST, [facility]/pharmacy#[id number], 160, cm, 08/31/21 15:19:00 EDT, Height Start Date: 08/23/22 Status: Ordered duloxetine 60 mg oral enteric coated capsule 1 capsule, By Mouth, Daily, [employer] 07/2023, # 90 capsule, 3 Refills, 07/27/22 15:27:00 EST, [facility]/pharmacy #[id number], 160, cm, 08/31/21 15:19:00 EDT, Height Start Date: 07/27/22 Status: Ordered gabapentin 800 mg oral tablet 1 tablet = 800 mg, By Mouth, 2 times a day, # 90 tablet, 0 [...] 08/13/22 9:21:00 EST, Route to Pharmacy Electronically, [facility]/pharmacy #[id number], Partial fill upon patientrequest if the prescription is for a schedule II op... Start Date: 08/13/22 Status: Ordered hydrochlorothiazide-triamterene 25 mg-37.5 mg oral capsule 1 capsule, By Mouth, Daily, # 90 capsule, 0 Refills, Maintenance, 05/29/23 22:06:00 EST, [facility]/pharmacy #[id number], 90, 1 capsule By Mouth Daily, 157, cm, 05/12/23 11:57:00 EST, Height, 86, kg, 05/10/23 11:11:00 EST, Dry Weight Start Date: 05/29/23 Status: Ordered Metoprolol Succinate ER 50 mg oral tablet, extended release 1 tablet, By Mouth, Daily, # 90 tablet, 3 Refills, Maintenance, 09/21/22 13:56:00 EDT, [id number], 160, cm, 08/31/21 15:19:00 EDT, Height Start Date: 09/21/22 Status: Ordered pantoprazole 40 mg oral delayed release tablet = 40 mg, By Mouth, Daily, 0 Refills, Maintenance, 05/11/23 8:32:00 EST, [facility] Tablet Start Date: 05/11/23 Status: Ordered tiZANidine 2 mg oral tablet 4 mg, 2, tablet, By Mouth, Daily at bedtime, # 180 tablet, Refills 3, Tot. Refills 3, Maintenance, 06/01/23 13:04:00 EST, Route to Pharmacy Electronically, [facility]/pharmacy #[id number], 157, cm, 05/12/23 11:57:00 EST, Height, 86, kg, 05/10/23 11:11:00 EST, Dry... Start Date: 06/01/23 Stop Date: 05/26/24 Status: Ordered traZODone 50 mg oral tablet 1, tablet, By Mouth, Daily at bedtime, # 90 tablet, Refills 3, Maintenance, 05/02/23 21:24:00 EST, Route to Pharmacy Electronically, [facility] STORE [id number], 160, cm, 04/22/23 9:05:00 EDT, Height Start Date: 05/02/23 Status: Ordered valsartan 320 mg oral tablet 1 tablet, By Mouth, Daily, # 90 tablet, 1 Refills, Maintenance, 01/03/23 11:13:00 EDT, [facility]/pharmacy#[id number], 160, cm, 08/31/21 15:19:00 EDT, Height [...] Venous (Peripheral) Insufficiency, Unspecified Confirmed Active 1initial [place]: 17 on 08/09/14 2initial Oswestry Disability Index: 57% ( severe disability ) on 08/09/14; initial Neck Disability Index: 40% on 08/16/14 3SOAPP-R: 19 ON 08/09/14 4On 05/31/2013 underwent left total knee arthroplasty with computer navigation for osteoarthritis, left knee by Luis Higgins M.D. at [facility]. 5On 09/24/2008 underwent 1. Open decompression right shoulder (acromioplasty, release of coracoacromial ligament). 2. Distal clavicle excision. 3. Repair of massive markedly retracted posterosuperior cuff tear. 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 at [facility]. 6Polysomnogram performed on 08/17/2014 at [facility] revealed 1. Obstructive sleep apnea, moderate 2. Hypoventilation with sleep 7Surgical History Procedure/Surgical Profile 3 level Posterior fusion (05115) in 2013 at 58 Years. Spinal decompression (68531) in 2008 at 53 Years. Laminectomy with exploration and/or decompression of spinal cord and/or cauda equina, without facetectomy, foraminotomy or discectomy (eg, spinal stenosis), 1 or 2 vertebral segments; lumbar, except for spondylolisthesis (43550) in 1996 at 41 Years. SCS trial at [facility] complicated by early lead migration. Never had adequate trial. 8Surgical History Procedure/Surgical Profile 3 level Posterior fusion (15913) in 2013 at 58 Years. Spinal decompression (97631) in 2008 at 53 Years. Laminectomy with exploration and/or decompression of spinal cord and/or cauda equina, without facetectomy, foraminotomy or discectomy (eg, spinal stenosis), 1 or 2 vertebral segments; lumbar, except for spondylolisthesis (92438) in 1996 at 41 Years. SCS trial at [facility] complicated by early lead migration. Never had adequate trial. Social History Social History Type Response Smoking Status Former smoker, quit more than 30 days ago entered on: 12/01/18 Sex Patient Care team information Care Team Personnel Name: Luis Combs RN Position: S RN Member Role: Primary Care Nurse Name: Solis Roman MD Position: [facility] Physician - Primary Care Member Role: PCP Address: Address: [address] [place] [address] Adult & Pediatric Medicine [place], [place] [address] Name: Iris Al RN Position: S RN Member Role: Primary Care Nurse Name: Stacie Guardado RN Position: [facility] SN RN Member Role: Primary Care Nurse Name: Loni Ervin RN Position: S RN Member Role: Primary Care Nurse Name: Tk Mendoza RN Position: S RN Member Role: Primary Care Nurse Care Team Related Persons Name: RANDY CAPUTO Address: [place] [address] Name: ERIN CHATTERJEE Address: home [address] [place] [address] Name: CRITSA WEST Address: [address] [place] [address]
--- OUTSIDE RECORDS SUMMARY | 2024-01-05 10:22 | XMS_ITS | Continuity of Care Document ---
Author Organization [facility] Address [address] [place] [address]- Care Team Providers Care Electrical Discharge Machine Operator Name Role Phone Abel OTERO, Solis Li Primary Care Physician [facility] Date[facility]): 01[facility]21 - 02/11/21 [facility] [address] [place], [place] [address] Allergies, Adverse Reactions, Alerts No Known Medication Allergies Substance Reaction Severity Status NKA Active Immunizations Given and Recorded Vaccine Date Status Refusal Reason SARS-CoV-2 (COVID-19) mRNA-1273 vaccine 09/19/20 G iven SARS-CoV-2 (COVID-19) mRNA-1273 vaccine 08/22/20 G iven pneumococcal 23-valent vaccine 1 04/25/20 Given Influenza Virus Vaccine (oldterm) 03/20/20 Recorde d influenza virus vaccine, inactivated 2 05/03/19 Gi serafin influenza virus vaccine, inactivated 3 03/09/18 Gi serafin influenza virus vaccine, inactivated 03/10/16 Josué rded pneumococcal 13-valent vaccine 03/09/18 Given tetanus/diphtheria/pertussis, acel(Tdap) 4 12/23/16 Given 1Result Comment: [id number] 2Result Comment: [id number] 3Result Comment: [03/09/2018] [id number] 4Result Comment: [12/23/2016] given without incident.....vs Medications [...] Compression Stockings See Instructions, # 2 each, Maintenance, surgical, thigh high length 20-30 mm Hg dx lymphedema dipense 2 pair, 01/19/21 18:42:00 EDT, Supply, 160, cm, 05/09/20 16:02:00 EST, Height, 86.5, kg, 05/07/20 6:28:00 EST, Dry Weight Start Date: 01/19/21 Status: Ordered Compression Stockings See Instructions, # 2 each, Maintenance, surgical, thigh high length 20-30 mm Hg 2 pair dx lymphedema, 01/19/21 18:44:00 EDT, Supply Start Date: 01/19/21 Status: Ordered Controlled substance agreement Controlled substance agreement, See Instructions, # 1 each, Refills 0, Tot. Refills 0, Maintenance,controlled substance agreement signed 08/30/14; preferred pharm:[facility]. dx: failed back sydrome, 08/30/14 10:48:33, Compound Start Date: 08/30/14 Status: Ordered doxepin 150 mg oral capsule 1 capsule = 150 mg, By Mouth, Daily at bedtime, # 90 capsule, 3 Refills, Maintenance, 06/06/20 10:17:00 EST, Capsule, [facility]/pharmacy #[id number], do not fill until pt calls, 160, cm, 05/09/20 16:02:00 EST, Height, 86.5, kg, 05/07/20 6:28:00 EST, Dry Weight Start Date: 06/06/20 Status: Ordered duloxetine 60 mg oral enteric coated capsule 1 capsule = 60 mg, By Mouth, Daily, # 30 capsule, 11 Refills, Maintenance, 11/10/20 14:38:00 EDT, Capsule, [facility]/pharmacy #[id number], 160, cm, 05/09/20 16:02:00 EST, Height, 86.5, kg, 05/07/20 6:28:00 EST, Dry Weight Start Date: 11/10/20 Status: Ordered gabapentin 800 mg oral tablet 1 tablet = 800 mg, By Mouth, 3 times a day, # 90 tablet, 11 Refills, Maintenance, 06/06/20 10:19:00EST, Tablet, [facility]/pharmacy #[id number], Partial fill upon patient request if the prescription is for a schedule II opioid drug., 160, cm, 05/09/20 16:02:00 ES... Start Date: 06/06/20 Status: Ordered hydrochlorothiazide 12.5 mg oral tablet 1 tablet = 12.5 mg, By Mouth, Daily, D/C HCTZ/ Triamterene, # 30 tablet, 11 Refills, Maintenance, 04/27/20 11:12:00 EST, Tablet, [facility]/pharmacy #[id number], d/c DYAZIDE, 159, cm, 04/25/20 11:27:00 EST, Height, 93.1, kg, 11/21/18 12:27:00 EDT, Dry Weight Start Date: 04/27/20 Status: Ordered Juxta-Fit compression stockings Juxta-Fit compression stockings, See Instructions, # 1 each, Refills 0, Tot. Refills 0, Maintenance, Wear as instructed daily, 01/13/17 15:48:20, Compound Start Date: 01/13/17 Status: Ordered Lymphedema clinic referral Lymphedema clinic referral, See Instructions, # 1 each, Refills 0, Tot. Refills 0, Maintenance, Please eval and treat for bilateral lower extremity edema, 01/25/14 16:02:15, Compound Start Date: 01/25/14 Status: Ordered Metoprolol Succinate ER 50 mg oral tablet, extended release 1 tablet, By Mouth, Daily, # 90 tablet, 1 Refills, Maintenance, 01/13/21 8:57:00 EDT, [id number], 160, cm, 05/09/20 16:02:00 EST, Height, 86.5, kg, 05/07/20 6:28:00 EST, Dry Weight Start Date: 01/13/21 Status: Ordered pantoprazole 40 mg oral delayed release tablet 0 Refills, Maintenance, 06/06/20 10:27:00 EST Start Date: 06/06/20 Status: Ordered tiZANidine 2 mg oral tablet 1, tablet, By Mouth, 2 times a day, # 180 tablet, Refills 3, Tot. Refills 0, Maintenance, 09/11/20 10:05:00 EDT, Route to Pharmacy Electronically, [id number], 160, cm, 05/09/20 16:02:00 EST, Height, 86.5, kg, 05/07/20 6:28:00 EST, Dry Weight Start Date: 09/11/20 Status: Ordered traZODone 50 mg oral tablet See Instructions, TAKE 1 TABLET BY MOUTH EVERYDAY AT BEDTIME, # 90 tablet, Refills 3, Tot. Refills 3, Maintenance, Instructions Replace Required Details, Route to Pharmacy Electronically, [facility] [id number], 160, cm, 05/09/20 16:02:00 EST, Height, 86.5,... Start Date: 08/13/20 Status: Ordered valsartan 160 mg oral tablet 160 mg, 1, tablet, By Mouth, Daily, Duplicate from 06/06/20 remaining refills sent, # 90 tablet, Refills 1, Tot. Refills 1, Maintenance, 01/12/21 8:43:00 EDT, Route to Pharmacy Electronically, [facility]/pharmacy #[id number], Partial fill upon patient request if t... Start Date: 01/12/21 Status: Ordered warfarin 1 mg oral tablet See Instructions, Take 1-10 tablets By Mouth Daily as directed, # 150 tablet, 0 Refills, Maintenance, 06/08/20 9:07:00 EST, Tablet, Partial fill upon patient request Start Date: 06/08/20 Status: Ordered warfarin 1 mg oral tablet See Instructions, Take 1-10 tablets By Mouth Daily as directed by [facility], # 150 tablet, 0 Refills, Maintenance, 05/08/20 7:59:00 EST, Tablet, Partial fill upon patient request Start Date: 05/08/20 Status: Ordered Problem List Condition Effective Dates [...] Venous (Peripheral) Insuffic iency, Unspecified(Confirmed) Active 1initial [place]: 17 on 08/09/14 2initial Oswestry Disability Index: 57% ( severe disability ) on 08/09/14; initial Neck Disability Index: 40% on 08/16/14 3SOAPP-R: 19 ON 08/09/14 4On 05/31/2013 underwent left total knee arthroplasty with computer navigation for osteoarthritis, left knee by Luis Higgins M.D. at [facility]. 5On 09/24/2008 underwent 1. Open decompression right shoulder (acromioplasty, release of coracoacromial ligament). 2. Distal clavicle excision. 3. Repair of massive markedly retracted posterosuperior cuff tear. 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 at [facility]. 6Polysomnogram performed on 08/17/2014 at [facility] revealed 1. Obstructive sleep apnea, moderate 2. Hypoventilation with sleep 7Surgical History Procedure/Surgical Profile 3 level Posterior fusion (32084) in 2013 at 58 Years. Spinal decompression (09266) in 2008 at 53 Years. Laminectomy with exploration and/or decompression of spinal cord and/or cauda equina, without facetectomy, foraminotomy or discectomy (eg, spinal stenosis), 1 or 2 vertebral segments; lumbar, except for spondylolisthesis (72900) in 1996 at 41 Years. SCS trial at [facility] complicated by early lead migration. Never had adequate trial. 8Surgical History Procedure/Surgical Profile 3 level Posterior fusion (66307) in 2013 at 58 Years. Spinal decompression (29368) in 2008 at 53 Years. Laminectomy with exploration and/or decompression of spinal cord and/or cauda equina, without facetectomy, foraminotomy or discectomy (eg, spinal stenosis), 1 or 2 vertebral segments; lumbar, except for spondylolisthesis (31201) in 1996 at 41 Years. SCS trial at [facility] complicated by early lead migration. Never had adequate trial. Social History Social History Type Response Smoking Status Former smoker, quit more than 30 days ago entered on: 12/01/18 Sex
--- OUTSIDE RECORDS SUMMARY | 2024-01-05 10:22 | XMS_ITS | Continuity of Care Document ---
Author Organization [facility] Address [address] [place] [address]- Care Team Providers Care Bridge Carpenter Name Role Phone Solis Roman MD Primary Care Physician [facility] Date[facility]): 03[facility]20 - 04/02/20 [facility] [address] [place] [address]- [facility] Allergies, Adverse Reactions, Alerts No Known Medication Allergies Substance Reaction Severity Status NKA Active Immunizations Given and Recorded Vaccine Date Status Refusal Reason influenza virus vaccine, inactivated 1 05/03/19 Gi serafin influenza virus vaccine, inactivated 2 03/09/18 Gi serafin influenza virus vaccine, inactivated 03/10/16 Josué rded pneumococcal 13-valent vaccine 03/09/18 Given tetanus/diphtheria/pertussis, acel(Tdap) 3 12/23/16 Given 1Result Comment: [id number] 2Result Comment: [03/09/2018] [id number] 3Result Comment: [12/23/2016] given without incident.....vs Medications [...] 0, Maintenance,controlled substance agreement signed 08/30/14; preferred pharm:[facility]. dx: failed back sydrome, 08/30/14 10:48:33, Compound Start Date: 08/30/14 Status: Ordered doxepin 25 mg oral capsule 3 capsule = 75 mg, By Mouth, Daily at bedtime, for 30 days, # 90 capsule, 11 Refills, Hard Stop 02/26/21 13:13:00 EDT, 03/03/20 13:13:00 EDT, Capsule, [facility]/pharmacy #[id number], this is an increase, 159, cm, 08/20/19 13:42:00 EST, Height, 93.1, kg, ... Start Date: 03/03/20 Stop Date: 02/26/21 Status: Ordered duloxetine 60 mg oral enteric coated capsule 1 capsule = 60 mg, By Mouth, Daily, # 30 capsule, 11 Refills, Maintenance, 10/15/19 9:12:00 EDT, Capsule, [facility]/pharmacy #2339, 159, cm, 08/20/19 13:42:00 EST, Height, 93.1, kg, 11/21/18 12:27:00 EDT, Dry Weight Start Date: 10/15/19 Status: Ordered gabapentin 800 mg oral tablet TAKE 1 TABLET BY MOUTH THREE TIMES A DAY Start Date: 01/14/20 Status: Ordered hydrochlorothiazide-triamterene 25 mg-37.5 mg oral capsule 1 capsule, By Mouth, Daily, # 90 capsule, 1 Refills, Maintenance, 02/27/20 9:26:00 EDT, Capsule, [facility]/pharmacy #[id number], 1 capsule By Mouth Daily,x90 [...] 06/25/19 13:39:00 EST, Route to Pharmacy Electronically, [facility]/pharmacy #[id number], this is an increase, 159, [...] 10/15/19 9:13:00 EDT, Route to Pharmacy Electronically, [facility]/pharmacy #[id number], 159, cm, 08/20/19 13:42:00EST, Height, [...] Maintenance, 01/13/2018:58:00 EDT, Route to Pharmacy Electronically, [facility]/pharmacy #[id number], 159, cm, 08/20/19 13:42:00 EST,Height, [...] Venous (Peripheral) Insuffic iency, Unspecified(Confirmed) Active 1initial [place]: 17 on 08/09/14 2initial Oswestry Disability Index: 57% ( severe disability ) on 08/09/14; initial Neck Disability Index: 40% on 08/16/14 3SOAPP-R: 19 ON 08/09/14 4On 05/31/2013 underwent left total knee arthroplasty with computer navigation for osteoarthritis, left knee by Luis Higgins M.D. at [facility]. 5On 09/24/2008 underwent 1. Open decompression right shoulder (acromioplasty, release of coracoacromial ligament). 2. Distal clavicle excision. 3. Repair of massive markedly retracted posterosuperior cuff tear. 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 at [facility]. 6Polysomnogram performed on 08/17/2014 at [facility] revealed 1. Obstructive sleep apnea, moderate 2. Hypoventilation with sleep 7Surgical History Procedure/Surgical Profile 3 level Posterior fusion (36022) in 2013 at 58 Years. Spinal decompression (56562) in 2008 at 53 Years. Laminectomy with exploration and/or decompression of spinal cord and/or cauda equina, without facetectomy, foraminotomy or discectomy (eg, spinal stenosis), 1 or 2 vertebral segments; lumbar, except for spondylolisthesis (22965) in 1996 at 41 Years. SCS trial at [facility] complicated by early lead migration. Never had adequate trial. 8Surgical History Procedure/Surgical Profile 3 level Posterior fusion (28419) in 2013 at 58 Years. Spinal decompression (61017) in 2008 at 53 Years. Laminectomy with exploration and/or decompression of spinal cord and/or cauda equina, without facetectomy, foraminotomy or discectomy (eg, spinal stenosis), 1 or 2 vertebral segments; lumbar, except for spondylolisthesis (86168) in 1996 at 41 Years. SCS trial at [facility] complicated by early lead migration. Never had adequate trial. Social History Social History Type Response Smoking Status Former smoker, quit more than 30 days ago entered on: 12/01/18 Sex
--- OUTSIDE RECORDS SUMMARY | 2024-01-05 10:22 | XMS_ITS | Continuity of Care Document ---
Author Organization [facility] Address [address] [place] [address]- Care Team Providers Care Incident Manager Name Role Phone Solis Roman MD Primary Care Physician Encounter [facility] Date(s): 03/21/20 - 04/20/20 [facility] [address] [place] [address]- [facility] Attending Physician: AdmMike [id number] Admitting Physician: Admtr, Ar8 Referring Physician: Admtr, Ar8 Allergies, Adverse Reactions, Alerts No Known Medication Allergies Substance Reaction Severity Status NKA Active Immunizations Given and Recorded Vaccine Date Status Refusal Reason influenza virus vaccine, inactivated 1 05/03/19 Gi serafin influenza virus vaccine, inactivated 2 03/09/18 Gi serafin influenza virus vaccine, inactivated 03/10/16 Josué rded pneumococcal 13-valent vaccine 03/09/18 Given tetanus/diphtheria/pertussis, acel(Tdap) 3 12/23/16 Given 1Result Comment: [id number] 2Result Comment: [03/09/2018] [id number] 3Result Comment: [12/23/2016] given without incident.....vs Medications [...] substance agreement signed 08/30/14; preferred pharm:[facility]. dx: failed back sydrome, 08/30/14 10:48:33, Compound Start Date: 08/30/14 Status: Ordered doxepin 25 mg oral capsule 3 capsule = 75 mg, By Mouth, Daily at bedtime, for 30 days, # 90 capsule, 11 Refills, Hard Stop 02/26/21 13:13:00 EDT, 03/03/20 13:13:00 EDT, Capsule, [facility]/pharmacy #[id number], this is an increase, 159, cm, 08/20/19 13:42:00 EST, Height, 93.1, kg, ... Start Date: 03/03/20 Stop Date: 02/26/21 Status: Ordered duloxetine 60 mg oral enteric coated capsule 1 capsule = 60 mg, By Mouth, Daily, # 30 capsule, 11 Refills, Maintenance, 10/15/19 9:12:00 EDT, Capsule, [facility]/pharmacy #[id number], 159, cm, 08/20/19 13:42:00 EST, Height, 93.1, kg, 11/21/18 12:27:00 EDT, Dry Weight Start Date: 10/15/19 Status: Ordered gabapentin 800 mg oral tablet 1 tablet = 800 mg, By Mouth, 3 times a day, TAKE 1 TABLET BY MOUTH THREE TIMES A DAY, # 90 tablet, 3 Refills, Maintenance, 04/07/20 17:20:00 EDT, Tablet, [facility]/pharmacy #[id number], 159, cm, 03/21/20 11:08:00 EDT, Height, 93.1, kg, 11/21/18 12:27:00 EDT, Dry... Start Date: 04/07/20 Stop Date: 08/05/20 Status: Ordered hydrochlorothiazide-triamterene 25 mg-37.5 mg oral capsule 1 capsule, By Mouth, Daily, # 90 capsule, 1 Refills, Maintenance, 02/27/20 9:26:00 EDT, Capsule, [facility]/pharmacy #[id number], 1 capsule By Mouth Daily,x90 [...] 06/25/19 13:39:00 EST, Route to Pharmacy Electronically, [facility]/pharmacy #[id number], this is an increase, 159, [...] 10/15/19 9:13:00 EDT, Route to Pharmacy Electronically, [facility]/pharmacy #[id number], 159, cm, 08/20/19 13:42:00EST, Height, [...] Maintenance, 01/13/2018:58:00 EDT, Route to Pharmacy Electronically, [facility]/pharmacy #[id number], 159, cm, 08/20/19 13:42:00 EST,Height, [...] Venous (Peripheral) Insuffic iency, Unspecified(Confirmed) Active 1initial [place]: 17 on 08/09/14 2initial Oswestry Disability Index: 57% ( severe disability ) on 08/09/14; initial Neck Disability Index: 40% on 08/16/14 3SOAPP-R: 19 ON 08/09/14 4On 05/31/2013 underwent left total knee arthroplasty with computer navigation for osteoarthritis, left knee by Luis Higgins M.D. at [facility]. 5On 09/24/2008 underwent 1. Open decompression right shoulder (acromioplasty, release of coracoacromial ligament). 2. Distal clavicle excision. 3. Repair of massive markedly retracted posterosuperior cuff tear. 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 at [facility]. 6Polysomnogram performed on 08/17/2014 at [facility] revealed 1. Obstructive sleep apnea, moderate 2. Hypoventilation with sleep 7Surgical History Procedure/Surgical Profile 3 level Posterior fusion (35125) in 2013 at 58 Years. Spinal decompression (14737) in 2008 at 53 Years. Laminectomy with exploration and/or decompression of spinal cord and/or cauda equina, without facetectomy, foraminotomy or discectomy (eg, spinal stenosis), 1 or 2 vertebral segments; lumbar, except for spondylolisthesis (67416) in 1996 at 41 Years. SCS trial at [facility] complicated by early lead migration. Never had adequate trial. 8Surgical History Procedure/Surgical Profile 3 level Posterior fusion (50048) in 2013 at 58 Years. Spinal decompression (08705) in 2008 at 53 Years. Laminectomy with exploration and/or decompression of spinal cord and/or cauda equina, without facetectomy, foraminotomy or discectomy (eg, spinal stenosis), 1 or 2 vertebral segments; lumbar, except for spondylolisthesis (41396) in 1996 at 41 Years. SCS trial at [facility] complicated by early lead migration. Never had adequate trial. Social History Social History Type Response Smoking Status Former smoker, quit more than 30 days ago entered on: 12/01/18 Sex
--- OUTSIDE RECORDS SUMMARY | 2024-01-05 10:22 | XMS_ITS | Continuity of Care Document ---
Author Organization [facility] Address [address] [place] [address]- Care Team Providers Care Manager Winter Name Role Phone Solis Roman MD Primary Care Physician [phone] Encounter [facility] Date(s): 06/18/21 - 08/16/21 [facility] [address] [place] [address]- Attending Physician: Solis Roman MD Allergies, Adverse [...] tetanus/diphtheria/pertussis, acel(Tdap) 4 12/23/16 Given 1Result Comment: [id number] 2Result Comment: [03/09/2018] [id number] 3Result Comment: [id number] 4Result Comment: [12/23/2016] given without incident.....vs Medications [...] substance agreement signed 08/30/14; preferred pharm:[facility]. dx: failed back sydrome, 08/30/14 10:48:33, Compound Start Date: 08/30/14 Status: Ordered doxepin 150 mg oral capsule 1 capsule, By Mouth, Daily at bedtime, # 90 capsule, 3 Refills, [facility] STORE [id number], 160, cm, 06/22/21 15:54:00 EST, Height, 86.5, kg, 05/07/20 6:28:00 EST, Dry Weight Start Date: 07/21/21 Status: Ordered duloxetine 60 mg oral enteric coated capsule 1 capsule = 60 mg, By Mouth, Daily, # 30 capsule, 11 Refills, Maintenance, 11/10/20 14:38:00 EDT, Capsule, [facility]/pharmacy #[id number], 160, cm, 05/09/20 16:02:00 EST, Height, 86.5, kg, 05/07/20 6:28:00 EST, Dry Weight Start Date: 11/10/20 Status: Ordered gabapentin 800 mg oral tablet 1 tablet = 800 mg, By Mouth, 3 times a day, # 90 tablet, 11 Refills, Maintenance, 06/06/20 10:19:00EST, Tablet, [facility] 08/03/21 14:23:00 EST, Route to Pharmacy Electronically, [facility]/pharmacy #[id number], Partial fill upon patient request if the prescription is for a schedule II o... Start Date: 08/03/21 Status: Ordered hydrochlorothiazide-triamterene 25 mg-37.5 mg oral capsule 1 capsule, By Mouth, Daily, # 30 capsule, 11 Refills, Maintenance, 06/22/21 16:39:00 EST, Capsule, [facility]/pharmacy #[id number], d/c hydrochlorothiazide, 1 capsule [...] 09/11/20 10:05:00 EDT, Route to Pharmacy Electronically, [facility] STORE [id number], 160, cm, 05/09/20 16:02:00 EST, Height, 86.5, [...] [facility]/pharmacy #[id number], 160, cm, 08/03/21 14... Start Date: 08/03/21 Status: Ordered valsartan 320 mg oral tablet 1 tablet = 320 mg, By Mouth, Daily, # 90 tablet, 3 Refills, Maintenance, 06/18/21 14:40:00 EST, Tablet, [facility]/pharmacy #[id number], this is a n [...] Venous (Peripheral) Insuffic iency, Unspecified(Confirmed) Active 1initial [place]: 17 on 08/09/14 2initial Oswestry Disability Index: 57% ( severe disability ) on 08/09/14; initial Neck Disability Index: 40% on 08/16/14 3SOAPP-R: 19 ON 08/09/14 4On 05/31/2013 underwent left total knee arthroplasty with computer navigation for osteoarthritis, left knee by Luis Higgins M.D. at [facility]. 5On 09/24/2008 underwent 1. Open decompression right shoulder (acromioplasty, release of coracoacromial ligament). 2. Distal clavicle excision. 3. Repair of massive markedly retracted posterosuperior cuff tear. 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 at [facility]. 6Polysomnogram performed on 08/17/2014 at [facility] revealed 1. Obstructive sleep apnea, moderate 2. Hypoventilation with sleep 7Surgical History Procedure/Surgical Profile 3 level Posterior fusion (62086) in 2013 at 58 Years. Spinal decompression (78899) in 2008 at 53 Years. Laminectomy with exploration and/or decompression of spinal cord and/or cauda equina, without facetectomy, foraminotomy or discectomy (eg, spinal stenosis), 1 or 2 vertebral segments; lumbar, except for spondylolisthesis (08760) in 1996 at 41 Years. SCS trial at [facility] complicated by early lead migration. Never had adequate trial. 8Surgical History Procedure/Surgical Profile 3 level Posterior fusion (68971) in 2013 at 58 Years. Spinal decompression (82310) in 2008 at 53 Years. Laminectomy with exploration and/or decompression of spinal cord and/or cauda equina, without facetectomy, foraminotomy or discectomy (eg, spinal stenosis), 1 or 2 vertebral segments; lumbar, except for spondylolisthesis (75043) in 1996 at 41 Years. SCS trial at [facility] complicated by early lead migration. Never had adequate trial. Social History Social History Type Response Smoking Status Former smoker, quit more than 30 days ago entered on: 12/01/18 Sex
--- OUTSIDE RECORDS SUMMARY | 2024-01-05 10:22 | XMS_ITS | Continuity of Care Document ---
Author Organization [facility] Address [address] [place] [address]- Care Team Providers Care Door Cutter Name Role Phone Solis Roman MD Primary Care Physician [phone] Encounter [facility] Date(s): 03/14/23 - 04/13/23 [facility] [address] [place], [place] [address] Allergies, Adverse Reactions, Alerts No Known [...] vaccine, inactivated 03/10/16 Josué rded SARS-CoV-2 mRNA (vjaeacc-vlid-gfazy) vax 04/08/22 Recorded zoster vaccine, inactivated 11/18/21 Recorded zoster vaccine, inactivated 06/23/20 Recorded SARS-CoV-2 (COVID-19) mRNA BNT-162b2 vac 04/19/21 Recorded SARS-CoV-2 (COVID-19) mRNA-1273 vaccine 09/19/20 G iven SARS-CoV-2 (COVID-19) mRNA-1273 vaccine 08/22/20 G iven pneumococcal 23-valent vaccine 4 04/25/20 Given Influenza Virus Vaccine (oldterm) 03/20/20 Recorde d pneumococcal 13-valent vaccine 03/09/18 Given tetanus/diphtheria/pertussis, acel(Tdap) 5 12/23/16 Given 1Result Comment: [facility] 2Result Comment: [id number] 3Result Comment: [03/09/2018] [id number] 4Result Comment: [id number] 5Result Comment: [12/23/2016] given without incident.....vs Medications [...] 0, Maintenance,controlled substance agreement signed 08/30/14; preferred pharm:[facility]. dx: failed back sydrome, 08/30/14 10:48:33, Compound Start Date: 08/30/14 Status: Ordered doxepin 150 mg oral capsule 1 capsule, By Mouth, Daily at bedtime, # 90 capsule, 3 Refills, 08/23/22 11:39:00 EST, [facility]/pharmacy#[id number], 160, cm, 08/31/21 15:19:00 EDT, Height Start Date: 08/23/22 Status: Ordered duloxetine 60 mg oral enteric coated capsule 1 capsule, By Mouth, Daily, [facility] [facility] [employer] 07/2023, # 90 capsule, 3 Refills, 07/27/22 15:27:00 EST, [facility]/pharmacy #[id number], 160, cm, 08/31/21 15:19:00 [...] 08/13/22 9:21:00 EST, Route to Pharmacy Electronically, [facility]/pharmacy #[id number], Partial fill upon patientrequest if the prescription is for a schedule II op... Start Date: 08/13/22 Status: Ordered hydrochlorothiazide-triamterene 25 mg-37.5 mg oral capsule 1 capsule, By Mouth, Daily, # 90 capsule, 1 Refills, Maintenance, 02/02/23 9:30:00 EDT, [facility]/pharmacy #[id number], 90, 1 capsule By [...] tablet, 3 Refills, Maintenance, 09/21/22 13:56:00 EDT, [facility]/pharmacy#[id number], 160, cm, 08/31/21 15:19:00 EDT, Height Start Date: 09/21/22 Status: Ordered tiZANidine 2 mg oral tablet 4 mg, 2, tablet, By Mouth, Daily at bedtime, # 180 tablet, Refills 3, Tot. Refills 3, Maintenance, 03/15/23 12:53:00 EDT, Route to Pharmacy Electronically, [facility]/pharmacy #[id number], 160, cm, 08/31/21 15:19:00 EDT, Height Start Date: 03/15/23 Stop Date: 03/09/24 Status: Ordered traZODone 50 mg oral tablet See Instructions, TAKE 1 TABLET BY MOUTH EVERYDAY AT BEDTIME, # 90 tablet, Refills 0, Tot. Refills 0, Maintenance, 02/07/23 10:55:00 EDT, Instructions Replace Required Details, Route to Pharmacy Electronically, [facility]/pharmacy #[id number], 160, cm, 08/31/21 15... Start Date: 02/07/23 Status: Ordered valsartan 320 mg oral tablet 1 tablet, By Mouth, Daily, # 90 tablet, 1 Refills, Maintenance, 01/03/23 11:13:00 EDT, [facility]/pharmacy#[id number], 160, cm, 08/31/21 15:19:00 EDT, [...] Venous (Peripheral) Insufficiency, Unspecified Confirmed Active 1initial [place]: 17 on 08/09/14 2initial Oswestry Disability Index: 57% ( severe disability ) on 08/09/14; initial Neck Disability Index: 40% on 08/16/14 3SOAPP-R: 19 ON 08/09/14 4On 05/31/2013 underwent left total knee arthroplasty with computer navigation for osteoarthritis, left knee by Luis Higgins M.D. at [facility]. 5On 09/24/2008 underwent 1. Open decompression right shoulder (acromioplasty, release of coracoacromial ligament). 2. Distal clavicle excision. 3. Repair of massive markedly retracted posterosuperior cuff tear. 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 at [facility]. 6Polysomnogram performed on 08/17/2014 at [facility] revealed 1. Obstructive sleep apnea, moderate 2. Hypoventilation with sleep 7Surgical History Procedure/Surgical Profile 3 level Posterior fusion (46046) in 2013 at 58 Years. Spinal decompression (22977) in 2008 at 53 Years. Laminectomy with exploration and/or decompression of spinal cord and/or cauda equina, without facetectomy, foraminotomy or discectomy (eg, spinal stenosis), 1 or 2 vertebral segments; lumbar, except for spondylolisthesis (67124) in 1996 at 41 Years. SCS trial at [facility] complicated by early lead migration. Never had adequate trial. 8Surgical History Procedure/Surgical Profile 3 level Posterior fusion (01827) in 2013 at 58 Years. Spinal decompression (78232) in 2008 at 53 Years. Laminectomy with exploration and/or decompression of spinal cord and/or cauda equina, without facetectomy, foraminotomy or discectomy (eg, spinal stenosis), 1 or 2 vertebral segments; lumbar, except for spondylolisthesis (19764) in 1996 at 41 Years. SCS trial at [facility] complicated by early lead migration. Never had adequate trial. Social History Social History Type Response Smoking Status Former smoker, quit more than 30 days ago entered on: 6/14/19 Sex Patient Care team information Care Team Personnel Name: Garret ZENDEJAS, Luis Mckee Position: [facility] RN Member Role: Primary Care Nurse Name: Solis Roman MD Position: [facility] Physician - Primary Care Member Role: PCP Address: Address: [address] [place] [address] Adult & [place] [address]- Name: Loni Ervin RN Position: [facility] RN Member Role: Primary Care Nurse Name: Tk Mendoza RN Position: [facility] RN Member Role: Primary Care Nurse Care Team Related Persons Name: PATITORANDY LEMA Address: [place] [address] Name: ERIN CHATTERJEE Address: [address] [place] [address] Name: CRISTA WEST Address: home [address] [place] [address]
--- OUTSIDE RECORDS SUMMARY | 2024-01-05 10:22 | XMS_ITS | Continuity of Care Document ---
Author Organization [facility] Address [address] [place] [address]- Care Team Providers Care Cosmetician Name Role Phone Solis Roman MD Primary Care Physician Encounter [facility] Date(s): 08/20/19 - 08/27/19 [facility] [address] [place] [address]- [facility] Attending Physician: Solis Roman MD Allergies, [...] tetanus/diphtheria/pertussis, acel(Tdap) 3 12/23/16 Given 1Result Comment: [id number] 2Result Comment: [03/09/2018] [id number] 3Result Comment: [12/23/2016] given without incident.....vs Medications [...] 0, Maintenance,controlled substance agreement signed 08/30/14; preferred pharm:[facility]. dx: failed back sydrome, 08/30/14 10:48:33, Compound [...] capsule = 60 mg, By Mouth, Daily, 0 Refills, Maintenance, 08/20/19 13:57:00 EST Start Date: 08/20/19 Status: Ordered hydrochlorothiazide-triamterene 25 mg-37.5 mg oral [...] 06/25/19 13:39:00 EST, Route to Pharmacy Electronically, [facility]/pharmacy #[id number], this is an increase, 159, cm, 06/25/19 13:38:00 EST, Height, 93.1, kg, 11/21/18 12:2... Start Date: 06/25/19 Status: Ordered PreserVision By Mouth, Daily, 0 Refills, Maintenance, 02/18/16 15:11:36 Start Date: 02/18/16 Status: Ordered tiZANidine 2 mg oral tablet 6 mg, 3, tablet, By Mouth, Daily at bedtime, # 90 tablet, Refills 6, Tot. Refills 6, Maintenance, 11/09/18 12:13:46 EDT, Do Not Route Start Date: 11/09/18 Stop Date: 06/07/19 Status: Ordered Tylenol 8 Hour 650 mg [...] chronic daily(Confirmed) Active History of lumbar spine surgery(Confirmed) Active Status post shoulder surgery(Confirmed) 5 09/24/08 [...] Venous (Peripheral) Insuffic iency, Unspecified(Confirmed) Active 1initial [place]: 17 on 08/09/14 2initial Oswestry Disability Index: 57% ( severe disability ) on 08/09/14; initial Neck Disability Index: 40% on 08/16/14 3SOAPP-R: 19 ON 08/09/14 4On 05/31/2013 underwent left total knee arthroplasty with computer navigation for osteoarthritis, left knee by Luis Higgins M.D. at [facility]. 5On 09/24/2008 underwent 1. Open decompression right shoulder (acromioplasty, release of coracoacromial ligament). 2. Distal clavicle excision. 3. Repair of massive markedly retracted posterosuperior cuff tear. 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 at [facility]. 6Polysomnogram performed on 08/17/2014 at [facility] revealed 1. Obstructive sleep apnea, moderate 2. Hypoventilation with sleep 7Surgical History Procedure/Surgical Profile 3 level Posterior fusion (84400) in 2013 at 58 Years. Spinal decompression (33208) in 2008 at 53 Years. Laminectomy with exploration and/or decompression of spinal cord and/or cauda equina, without facetectomy, foraminotomy or discectomy (eg, spinal stenosis), 1 or 2 vertebral segments; lumbar, except for spondylolisthesis (80685) in 1996 at 41 Years. SCS trial at [facility] complicated by early lead migration. Never had adequate trial. 8Surgical History Procedure/Surgical Profile 3 level Posterior fusion (63534) in 2013 at 58 Years. Spinal decompression (63480) in 2008 at 53 Years. Laminectomy with exploration and/or decompression of spinal cord and/or cauda equina, without facetectomy, foraminotomy or discectomy (eg, spinal stenosis), 1 or 2 vertebral segments; lumbar, except for spondylolisthesis (87590) in 1996 at 41 Years. SCS trial at [facility] complicated by early lead migration. Never had adequate trial. Vital Signs Most recent to oldest [Reference Range]: 1 Height 159 cm (08/20/19 1:42 PM) Weight 93.3 kg (08/20/19 1:42 PM) Oxygen Saturation [94-100 %] 97 % (08/20/19 1:42 PM) Pulse Rate [55-90 bpm] 79 bpm (08/20/19 1:42 PM) Body Mass Index [18.5-24.99] 36.91 *>HHI* (08/20/19 1:42 PM) Blood Pressure [90-138/55-84 mm Hg] 126/ 76mm Hg (08/20/19 1:42 PM) Mode of Delivery (Oxygen) Room air (08/20/19 1:42 PM) Blood pressure sites Arm, left (08/20/19 1:42 PM) Weight Obtained Via Standing scale (08/20/19 1:42 PM) Social History Social History Type Response Smoking Status Former smoker, quit more than 30 days ago entered on: 12/01/18 Sex
--- OUTSIDE RECORDS SUMMARY | 2024-01-05 10:22 | XMS_ITS | Continuity of Care Document ---
Author Organization [facility] Address [address] [place] [address]- Care Team Providers Care Sheriff Sergeant Name Role Phone Abel OTERO, Solis Li Primary Care Physician [facility]counter [facility] Date(s): 01/19/21 - 02/18/21 [facility] [address] [place], [place] [address] Allergies, Adverse Reactions, Alerts No [...] tetanus/diphtheria/pertussis, acel(Tdap) 4 12/23/16 Given 1Result Comment: [id number] 2Result Comment: [id number] 3Result Comment: [03/09/2018] [id number] 4Result Comment: [12/23/2016] given without incident.....vs Medications [...] signed 08/30/14; preferred pharm:[facility]. dx: failed back sydrome, 08/30/14 10:48:33, Compound Start Date: 08/30/14 Status: Ordered doxepin 150 mg oral capsule 1 capsule = 150 mg, By Mouth, Daily at bedtime, # 90 capsule, 3 Refills, Maintenance, 06/06/20 10:17:00 EST, Capsule, [facility]/pharmacy #[id number], do not fill until pt calls, 160, cm, 05/09/20 16:02:00 EST, Height, 86.5, kg, 05/07/20 6:28:00 EST, Dry Weight Start Date: 06/06/20 Status: Ordered duloxetine 60 mg oral enteric coated capsule 1 capsule = 60 mg, By Mouth, Daily, # 30 capsule, 11 Refills, Maintenance, 11/10/20 14:38:00 EDT, Capsule, [facility]/pharmacy #[id number], 160, cm, 05/09/20 16:02:00 EST, Height, 86.5, kg, 05/07/20 6:28:00 EST, Dry Weight Start Date: 11/10/20 Status: Ordered gabapentin 800 mg oral tablet 1 tablet = 800 mg, By Mouth, 3 times a day, # 90 tablet, 11 Refills, Maintenance, 06/06/20 10:19:00EST, Tablet, [facility]/pharmacy #[id number], Partial fill upon patient request if the prescription is for a schedule II opioid drug., 160, cm, 05/09/20 16:02:00 ES... Start Date: 06/06/20 Status: Ordered hydrochlorothiazide 12.5 mg oral tablet 1 tablet = 12.5 mg, By Mouth, Daily, D/C HCTZ/ Triamterene, # 30 tablet, 11 Refills, Maintenance, 04/27/20 11:12:00 EST, Tablet, [facility]/pharmacy #[id number], d/c DYAZIDE, 159, cm, 04/25/20 11:27:00 [...] Refills, Maintenance, 01/13/21 8:57:00 EDT, [id number], 160, cm, 05/09/20 16:02:00 EST, Height, 86.5, [...] EDT, Route to Pharmacy Electronically, [id number], 160, cm, 05/09/20 16:02:00 EST, Height, 86.5, kg, 05/07/20 6:28:00 EST, Dry Weight Start Date: 09/11/20 Status: Ordered traZODone 50 mg oral tablet See Instructions, TAKE 1 TABLET BY MOUTH EVERYDAY AT BEDTIME, # 90 tablet, Refills 3, Tot. Refills 3, Maintenance, Instructions Replace Required Details, Route to Pharmacy Electronically, [id number], 160, cm, 05/09/20 16:02:00 EST, Height, 86.5,... Start Date: 08/13/20 Status: Ordered valsartan 160 mg oral tablet 160 mg, 1, tablet, By Mouth, Daily, Duplicate from 06/06/20 remaining refills sent, # 90 tablet, Refills 1, Tot. Refills 1, Maintenance, 01/12/21 8:43:00 EDT, Route to Pharmacy Electronically, [facility]/pharmacy #[id number], Partial fill upon patient request if t... [...] Venous (Peripheral) Insuffic iency, Unspecified(Confirmed) Active 1initial [place]: 17 on 08/09/14 2initial Oswestry Disability Index: 57% ( severe disability ) on 08/09/14; initial Neck Disability Index: 40% on 08/16/14 3SOAPP-R: 19 ON 08/09/14 4On 05/31/2013 underwent left total knee arthroplasty with computer navigation for osteoarthritis, left knee by Luis Higgins M.D. at [facility]. 5On 09/24/2008 underwent 1. Open decompression right shoulder (acromioplasty, release of coracoacromial ligament). 2. Distal clavicle excision. 3. Repair of massive markedly retracted posterosuperior cuff tear. 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 at [facility]. 6Polysomnogram performed on 08/17/2014 at [facility] revealed 1. Obstructive sleep apnea, moderate 2. Hypoventilation with sleep 7Surgical History Procedure/Surgical Profile 3 level Posterior fusion (50078) in 2013 at 58 Years. Spinal decompression (66338) in 2008 at 53 Years. Laminectomy with exploration and/or decompression of spinal cord and/or cauda equina, without facetectomy, foraminotomy or discectomy (eg, spinal stenosis), 1 or 2 vertebral segments; lumbar, except for spondylolisthesis (57637) in 1996 at 41 Years. SCS trial at [facility] complicated by early lead migration. Never had adequate trial. 8Surgical History Procedure/Surgical Profile 3 level Posterior fusion (72891) in 2013 at 58 Years. Spinal decompression (83614) in 2008 at 53 Years. Laminectomy with exploration and/or decompression of spinal cord and/or cauda equina, without facetectomy, foraminotomy or discectomy (eg, spinal stenosis), 1 or 2 vertebral segments; lumbar, except for spondylolisthesis (74824) in 1996 at 41 Years. SCS trial at [facility] complicated by early lead migration. Never had adequate trial. Social History Social History Type Response Smoking Status Former smoker, quit more than 30 days ago entered on: 12/01/18 Sex
--- OUTSIDE RECORDS SUMMARY | 2024-01-05 10:22 | XMS_ITS | Continuity of Care Document ---
Author Organization [facility] Address [address] [place] [address]- Care Team Providers Care Unindentured Apprentice Name Role Phone Solis Roman MD Primary Care Physician [phone] Encounter [facility] Date(s): 06/06/20 - 07/06/20 [facility] [address] [place], [place] [address] Attending Physician: Mary Cantu Admitting Physician: AdmMary luciano Referring Physician: AdmtrMary Allergies, Adverse Reactions, Alerts No Known Medication Allergies Substance Reaction Severity Status NKA Active Immunizations Given and Recorded Vaccine Date Status Refusal Reason pneumococcal 23-valent vaccine 1 04/25/20 Given Influenza Virus Vaccine (oldterm) 03/20/20 Recorde d influenza virus vaccine, inactivated 2 05/03/19 Gi serafin influenza virus vaccine, inactivated 3 03/09/18 Gi serafin influenza virus vaccine, inactivated 03/10/16 Josué rded pneumococcal 13-valent vaccine 03/09/18 Given tetanus/diphtheria/pertussis, acel(Tdap) 4 12/23/16 Given 1Result Comment: [id number] 2Result Comment: [id number] 3Result Comment: [03/09/2018] [id number] 4Result Comment: [12/23/2016] given without incident.....vs Medications acetaminophen 325 mg oral tablet 650 mg, By Mouth, Every 6 hours, May take OTC follow directions on bottle not to exceed 4000 mg/day, Refills 0, Maintenance, 05/08/20 7:54:00 EST, Partial fill upon patient request Start Date: 05/08/20 Status: Ordered celecoxib 200 mg oral capsule 1 capsule = 200 mg, By Mouth, Daily, 0 Refills, Maintenance, 05/08/20 7:54:00 EST, Capsule, Partialfill upon patient request Start Date: 05/08/20 Status: [...] EDT, Compound Start Date: 09/26/18 Status: Ordered Controlled substance agreement Controlled substance agreement, See Instructions, # 1 each, Refills 0, Tot. Refills 0, Maintenance,controlled substance agreement signed 08/30/14; preferred pharm:[facility]. dx: failed back sydrome, 08/30/14 10:48:33, Compound Start Date: 08/30/14 Status: Ordered doxepin 150 mg oral capsule 1 capsule = 150 mg, By Mouth, Daily at bedtime, # 90 capsule, 3 Refills, Maintenance, 06/06/20 10:17:00 EST, Capsule, [facility]/pharmacy #[id number], do not fill until pt calls, 160, cm, 05/09/20 16:02:00 EST, Height, 86.5, kg, 05/07/20 6:28:00 EST, Dry Weight Start Date: 06/06/20 Status: Ordered duloxetine 60 mg oral enteric coated capsule 1 capsule = 60 mg, By Mouth, Daily, # 30 capsule, 11 Refills, Maintenance, 10/15/19 9:12:00 EDT, Capsule, [facility]/pharmacy #[id number], 159, cm, 08/20/19 13:42:00 EST, Height, 93.1, kg, 11/21/18 12:27:00 EDT, Dry Weight Start Date: 10/15/19 Status: Ordered gabapentin 800 mg oral tablet 1 tablet = 800 mg, By Mouth, 3 times a day, # 90 tablet, 11 Refills, Maintenance, 06/06/20 10:19:00EST, Tablet, [facility]/pharmacy #[id number], Partial fill upon patient request if the prescription is for a schedule II opioid drug., 160, cm, 11/20/20 16:02:00 ES... Start Date: 06/06/20 Status: Ordered hydrochlorothiazide 12.5 mg oral tablet 1 tablet = 12.5 mg, By Mouth, Daily, D/C HCTZ/ Triamterene, # 30 tablet, 11 Refills, Maintenance, 04/27/20 11:12:00 EST, Tablet, [facility]/pharmacy #2339, d/c DYAZIDE, 159, cm, 04/25/20 11:27:00 [...] EST, Route to Pharmacy Electronically, [facility]/pharmacy #2330, this is an increase, 159, cm, 06/25/19 13:38:00 EST, Height, 93.1, kg, 11/21/18 12:2... Start Date: 06/25/19 Status: Ordered MiraLax Powder 1 pack/packet = 17 Gm, By Mouth, Daily, may take OTC, follow directions on the bottle dissolve in water or juice, 0 Refills, Maintenance, 05/08/20 7:58:00 EST, Powder, Partial fill upon patient request Start Date: 05/08/20 Status: Ordered pantoprazole 40 mg oral delayed release tablet 0 Refills, Maintenance, 06/06/20 10:27:00 EST Start Date: 06/06/20 Status: Ordered senna 187 mg oral tablet 1 tablet = 8.6 mg, By Mouth, Daily at bedtime, may take OTC follow directions on the bottle with plenty of water, 0 Refills, Maintenance, 05/08/20 7:59:00 EST, Tablet, Partial fill upon patient request Start Date: 05/08/20 Status: Ordered tiZANidine 2 mg oral tablet 2 mg, 1, tablet, By Mouth, 2 times a day, # 60 tablet, Refills 11, Tot. Refills 11, Maintenance, 10/15/19 9:13:00 EDT, Route to Pharmacy Electronically, [facility]/pharmacy #[id number], 159, cm, 08/20/19 13:42:00EST, Height, 93.1, kg, 11/21/18 12:27:00 EDT, Dry W... Start Date: 10/15/19 Stop Date: 10/09/20 Status: Ordered valsartan 160 mg oral tablet 160 mg, 1, tablet, By Mouth, Daily, # 90 tablet, Refills 3, Tot. Refills 3, Maintenance, 06/06/20 10:24:00 EST, Do Not Route, Partial fill upon patient request if the prescription is for a schedule II opioid drug. Start Date: 06/06/20 Status: Ordered warfarin 1 mg oral tablet [...] Venous (Peripheral) Insuffic iency, Unspecified(Confirmed) Active 1initial [place]: 17 on 08/09/14 2initial Oswestry Disability Index: 57% ( severe disability ) on 08/09/14; initial Neck Disability Index: 40% on 08/16/14 3SOAPP-R: 19 ON 08/09/14 4On 05/31/2013 underwent left total knee arthroplasty with computer navigation for osteoarthritis, left knee by Luis Higgins M.D. at [facility]. 5On 09/24/2008 underwent 1. Open decompression right shoulder (acromioplasty, release of coracoacromial ligament). 2. Distal clavicle excision. 3. Repair of massive markedly retracted posterosuperior cuff tear. 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 at [facility]. 6Polysomnogram performed on 08/17/2014 at [facility] revealed 1. Obstructive sleep apnea, moderate 2. Hypoventilation with sleep 7Surgical History Procedure/Surgical Profile 3 level Posterior fusion (78644) in 2013 at 58 Years. Spinal decompression (74223) in 2008 at 53 Years. Laminectomy with exploration and/or decompression of spinal cord and/or cauda equina, without facetectomy, foraminotomy or discectomy (eg, spinal stenosis), 1 or 2 vertebral segments; lumbar, except for spondylolisthesis (30966) in 1996 at 41 Years. SCS trial at [facility] complicated by early lead migration. Never had adequate trial. 8Surgical History Procedure/Surgical Profile 3 level Posterior fusion (21189) in 2013 at 58 Years. Spinal decompression (81209) in 2008 at 53 Years. Laminectomy with exploration and/or decompression of spinal cord and/or cauda equina, without facetectomy, foraminotomy or discectomy (eg, spinal stenosis), 1 or 2 vertebral segments; lumbar, except for spondylolisthesis (84472) in 1996 at 41 Years. SCS trial at [facility] complicated by early lead migration. Never had adequate trial. Social History Social History Type Response Smoking Status Former smoker, quit more than 30 days ago entered on: 12/01/18 Sex
--- OUTSIDE RECORDS SUMMARY | 2024-01-05 10:22 | XMS_ITS | Continuity of Care Document ---
Author Organization [facility] Address [address] [place] [address]- Care Team Providers Care Personal Computer Network Engineer Name Role Phone Solis Roman MD Primary Care Physician [phone] Encounter [facility] Date(s): 05/23/20 - 06/22/20 [facility] [address] [place], [place] [address] Allergies, Adverse Reactions, Alerts [...] tetanus/diphtheria/pertussis, acel(Tdap) 4 12/23/16 Given 1Result Comment: [id number] 2Result Comment: [id number] 3Result Comment: [03/09/2018] [id number] 4Result Comment: [12/23/2016] given without incident.....vs Medications [...] 0, Maintenance,controlled substance agreement signed 08/30/14; preferred pharm:[facility] Alanna Wilson. dx: failed back sydrome, 08/30/14 10:48:33, Compound Start Date: 08/30/14 Status: Ordered doxepin 150 mg oral capsule 1 capsule = 150 mg, By Mouth, Daily at bedtime, # 90 capsule, 3 Refills, Maintenance, 06/06/20 10:17:00 EST, Capsule, [facility]/pharmacy #[id number], do not fill until pt calls, 160, cm, 05/09/20 16:02:00 EST, Height, 86.5, kg, 05/07/20 6:28:00 EST, Dry Weight Start Date: 06/06/20 Status: Ordered duloxetine 60 mg oral enteric coated capsule 1 capsule = 60 mg, By Mouth, Daily, # 30 capsule, 11 Refills, Maintenance, 10/15/19 9:12:00 EDT, Capsule, [facility]/pharmacy #2339, 159, cm, 08/20/19 13:42:00 EST, Height, 93.1, kg, 11/21/18 12:27:00 EDT, Dry Weight Start Date: 10/15/19 Status: Ordered gabapentin 800 mg oral tablet 1 tablet = 800 mg, By Mouth, 3 times a day, # 90 tablet, 11 Refills, Maintenance, 06/06/20 10:19:00EST, Tablet, [facility]/pharmacy #[id number], Partial fill upon patient request if the prescription is for a schedule II opioid drug., 160, cm, 05/09/20 16:02:00 ES... Start Date: 06/06/20 Status: Ordered hydrochlorothiazide 12.5 mg oral tablet 1 tablet = 12.5 mg, By Mouth, Daily, D/C HCTZ/ Triamterene, # 30 tablet, 11 Refills, Maintenance, 04/27/20 11:12:00 EST, Tablet, [facility]/pharmacy #2330, d/c DYAZIDE, 159, cm, 04/25/20 11:27:00 EST, [...] 06/25/19 13:39:00 EST, Route to Pharmacy Electronically, [facility]/pharmacy #2337, this is an increase, 159, cm, 06/25/19 [...] 10/15/19 9:13:00 EDT, Route to Pharmacy Electronically, [facility]/pharmacy #[id number], 159, cm, 08/20/19 13:42:00EST, Height, 93.1, [...] Venous (Peripheral) Insuffic iency, Unspecified(Confirmed) Active 1initial [place]: 17 on 08/09/14 2initial Oswestry Disability Index: 57% ( severe disability ) on 08/09/14; initial Neck Disability Index: 40% on 08/16/14 3SOAPP-R: 19 ON 08/09/14 4On 05/31/2013 underwent left total knee arthroplasty with computer navigation for osteoarthritis, left knee by Luis Higgins M.D. at [facility]. 5On 09/24/2008 underwent 1. Open decompression right shoulder (acromioplasty, release of coracoacromial ligament). 2. Distal clavicle excision. 3. Repair of massive markedly retracted posterosuperior cuff tear. for massive markedly retracted subacute posterosuperior cuff tear, right shoulder with degenerative acromioclavicular arthropathy by Sduhakar Hay M.D. at [facility]. 6Polysomnogram performed on 08/17/2014 at [facility] revealed 1. Obstructive sleep apnea, moderate 2. Hypoventilation with sleep 7Surgical History Procedure/Surgical Profile 3 level Posterior fusion (61810) in 2013 at 58 Years. Spinal decompression (22363) in 2008 at 53 Years. Laminectomy with exploration and/or decompression of spinal cord and/or cauda equina, without facetectomy, foraminotomy or discectomy (eg, spinal stenosis), 1 or 2 vertebral segments; lumbar, except for spondylolisthesis (71013) in 1996 at 41 Years. SCS trial at [facility] complicated by early lead migration. Never had adequate trial. 8Surgical History Procedure/Surgical Profile 3 level Posterior fusion (02163) in 2013 at 58 Years. Spinal decompression (02607) in 2008 at 53 Years. Laminectomy with exploration and/or decompression of spinal cord and/or cauda equina, without facetectomy, foraminotomy or discectomy (eg, spinal stenosis), 1 or 2 vertebral segments; lumbar, except for spondylolisthesis (74215) in 1996 at 41 Years. SCS trial at [facility] complicated by early lead migration. Never had adequate trial. Social History Social History Type Response Smoking Status Former smoker, quit more than 30 days ago entered on: 12/01/18 Sex
--- OUTSIDE RECORDS SUMMARY | 2024-01-05 10:22 | XMS_ITS | Continuity of Care Document ---
Author Organization [facility] Address [address] [place] [address]- Care Team Providers Care Supersonic Engineer Name Role Phone Solis Roman MD Primary Care Physician Encounter [facility] [id number] Date(s): 02/05/20 - 03/06/20 [facility] [address] [place] [address] [place] [address] [facility] Attending Physician: Mary Cantu Admitting Physician: AdmtrMary Referring Physician: Admtr, Ar8 Allergies, Adverse Reactions, Alerts No Known Medication Allergies Substance Reaction Severity Status NKA Active Immunizations Given and Recorded Vaccine Date Status Refusal Reason influenza virus vaccine, inactivated 1 05/03/19 Gi serafin influenza virus vaccine, inactivated 2 03/09/18 Gi serafin influenza virus vaccine, inactivated 03/10/16 Josué rded pneumococcal 13-valent vaccine 03/09/18 Given tetanus/diphtheria/pertussis, acel(Tdap) 3 12/23/16 Given 1Result Comment: [id number] 2Result Comment: [03/09/2018] [id number] 3Result Comment: [12/23/2016] given without incident.....vs Medications [...] 0, Maintenance,controlled substance agreement signed 08/30/14; preferred pharm:[facility]. dx: failed back sydrome, 08/30/14 10:48:33, Compound Start Date: 08/30/14 Status: Ordered doxepin 25 mg oral capsule 3 capsule = 75 mg, By Mouth, Daily at bedtime, for 30 days, # 90 capsule, 11 Refills, Hard Stop 02/26/21 13:13:00 EDT, 03/03/20 13:13:00 EDT, Capsule, [facility]/pharmacy #[id number], this is an increase, 159, cm, 08/20/19 13:42:00 EST, Height, 93.1, kg, ... Start Date: 03/03/20 Stop Date: 02/26/21 Status: Ordered duloxetine 60 mg oral enteric coated capsule 1 capsule = 60 mg, By Mouth, Daily, # 30 capsule, 11 Refills, Maintenance, 10/15/19 9:12:00 EDT, Capsule, [facility]/pharmacy #2339, 159, cm, 08/20/19 13:42:00 EST, Height, 93.1, kg, 11/21/18 12:27:00 EDT, Dry Weight Start Date: 10/15/19 Status: Ordered gabapentin 800 mg oral tablet TAKE 1 TABLET BY MOUTH THREE TIMES A DAY Start Date: 01/14/20 Status: Ordered hydrochlorothiazide-triamterene 25 mg-37.5 mg oral capsule 1 capsule, By Mouth, Daily, # 90 capsule, 1 Refills, Maintenance, 02/27/20 9:26:00 EDT, Capsule, [facility]/pharmacy #2339, 1 capsule By Mouth Daily,x90 days, [...] 06/25/19 13:39:00 EST, Route to Pharmacy Electronically, [facility]/pharmacy #[id number], this is an increase, 159, cm, [...] 10/15/19 9:13:00 EDT, Route to Pharmacy Electronically, [facility]/pharmacy #2339, 159, cm, 08/20/19 13:42:00EST, Height, 93.1, [...] Maintenance, 01/13/2018:58:00 EDT, Route to Pharmacy Electronically, [facility]/pharmacy #[id number], 159, cm, 08/20/19 13:42:00 EST,Height, 93.1, [...] Venous (Peripheral) Insuffic iency, Unspecified(Confirmed) Active 1initial [place]: 17 on 08/09/14 2initial Oswestry Disability Index: 57% ( severe disability ) on 08/09/14; initial Neck Disability Index: 40% on 08/16/14 3SOAPP-R: 19 ON 08/09/14 4On 05/31/2013 underwent left total knee arthroplasty with computer navigation for osteoarthritis, left knee by Luis Higgins M.D. at [facility]. 5On 09/24/2008 underwent 1. Open decompression right shoulder (acromioplasty, release of coracoacromial ligament). 2. Distal clavicle excision. 3. Repair of massive markedly retracted posterosuperior cuff tear. 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 at [facility]. 6Polysomnogram performed on 08/17/2014 at [facility] revealed 1. Obstructive sleep apnea, moderate 2. Hypoventilation with sleep 7Surgical History Procedure/Surgical Profile 3 level Posterior fusion (92946) in 2013 at 58 Years. Spinal decompression (47336) in 2008 at 53 Years. Laminectomy with exploration and/or decompression of spinal cord and/or cauda equina, without facetectomy, foraminotomy or discectomy (eg, spinal stenosis), 1 or 2 vertebral segments; lumbar, except for spondylolisthesis (48335) in 1996 at 41 Years. SCS trial at [facility] complicated by early lead migration. Never had adequate trial. 8Surgical History Procedure/Surgical Profile 3 level Posterior fusion (14534) in 2013 at 58 Years. Spinal decompression (65169) in 2008 at 53 Years. Laminectomy with exploration and/or decompression of spinal cord and/or cauda equina, without facetectomy, foraminotomy or discectomy (eg, spinal stenosis), 1 or 2 vertebral segments; lumbar, except for spondylolisthesis (62788) in 1996 at 41 Years. SCS trial at [facility] complicated by early lead migration. Never had adequate trial. Social History Social History Type Response Smoking Status Former smoker, quit more than 30 days ago entered on: 12/01/18 Sex
--- OUTSIDE RECORDS SUMMARY | 2024-01-05 10:22 | XMS_ITS | Continuity of Care Document ---
Author Organization [facility] ter Address [address] [place] [id number]- Care Team Providers Care Wood Treating Inspector Name Role Phone Abel OTERO, Solis Li Primary Care Physician [phone] Encounter [facility] Date(s): 08/26/19 - 10/05/[address] [address]- [facility] Attending Physician: Luis Higgins MD Admitting Physician: Luis Higgins MD Referring Physician: Luis Higgins MD Allergies, Adverse Reactions, Alerts No Known Medication Allergies Substance Reaction Severity Status NKA Active Immunizations Given and Recorded Vaccine Date Status Refusal Reason influenza virus vaccine, inactivated 1 05/03/19 Gi serafin influenza virus vaccine, inactivated 2 03/09/18 Gi serafin influenza virus vaccine, inactivated 03/10/16 Josué rded pneumococcal 13-valent vaccine 03/09/18 Given tetanus/diphtheria/pertussis, acel(Tdap) 3 12/23/16 Given 1Result Comment: [id number] 2Result Comment: [03/09/2018] [id number] 3Result Comment: [12/23/2016] given without incident.....vs Medications [...] Maintenance,controlled substance agreement signed 08/30/14; preferred pharm:[facility]. dx: failed back sydrome, [...] to Pharmacy Electronically, [facility]/pharmacy #[id number], this is an increase, 159, cm, 06/25/19 [...] Venous (Peripheral) Insuffic iency, Unspecified(Confirmed) Active 1initial [place]: 17 on 08/09/14 2initial Oswestry Disability Index: 57% ( severe disability ) on 08/09/14; initial Neck Disability Index: 40% on 08/16/14 3SOAPP-R: 19 ON 08/09/14 4On 05/31/2013 underwent left total knee arthroplasty with computer navigation for osteoarthritis, left knee by Luis Higgins M.D. at [facility]. 5On 09/24/2008 underwent 1. Open decompression right shoulder (acromioplasty, release of coracoacromial ligament). 2. Distal clavicle excision. 3. Repair of massive markedly retracted posterosuperior cuff tear. 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 at [facility]. 6Polysomnogram performed on 08/17/2014 at [facility] revealed 1. Obstructive sleep apnea, moderate 2. Hypoventilation with sleep 7Surgical History Procedure/Surgical Profile 3 level Posterior fusion (39435) in 2013 at 58 Years. Spinal decompression (31944) in 2008 at 53 Years. Laminectomy with exploration and/or decompression of spinal cord and/or cauda equina, without facetectomy, foraminotomy or discectomy (eg, spinal stenosis), 1 or 2 vertebral segments; lumbar, except for spondylolisthesis (28782) in 1996 at 41 Years. SCS trial at [facility] complicated by early lead migration. Never had adequate trial. 8Surgical History Procedure/Surgical Profile 3 level Posterior fusion (77321) in 2013 at 58 Years. Spinal decompression (91677) in 2008 at 53 Years. Laminectomy with exploration and/or decompression of spinal cord and/or cauda equina, without facetectomy, foraminotomy or discectomy (eg, spinal stenosis), 1 or 2 vertebral segments; lumbar, except for spondylolisthesis (35934) in 1996 at 41 Years. SCS trial at [facility] complicated by early lead migration. Never had adequate trial. Social History Social History Type Response Smoking Status Former smoker, quit more than 30 days ago entered on: 12/01/18 Sex
--- OUTSIDE RECORDS SUMMARY | 2024-01-05 10:22 | XMS_ITS | Continuity of Care Document ---
Author Organization [facility] Address [address] [place] [address]- Care Team Providers Care Manager Patient Name Role Phone Solis Roman MD Primary Care Physician Encounter [facility] Date(s): 12/06/23 - 12/13/23 [facility] [address] [place], [place] [address] Attending Physician: Solis Roman MD Allergies, Adverse Reactions, Alerts No Known Allergies Immunizations Given and Recorded Vaccine Date Status Refusal Reason SARS-CoV-2(COVID-19)mRNA-LNP vac([id number]) 04/11/23 Recorded influenza virus vaccine, inactivated 1 03/16/23 Re corded influenza virus vaccine, inactivated 04/08/22 Josué rded influenza virus vaccine, inactivated 04/19/21 Josué rded influenza virus vaccine, inactivated 2 05/03/19 Gi serafin influenza virus vaccine, inactivated 3 03/09/18 Gi serafin influenza virus vaccine, inactivated 03/10/16 Josué rded SARS-CoV-2 mRNA ([id number]) vax 04/08/22 Recorded zoster vaccine, inactivated 11/18/21 Recorded zoster vaccine, inactivated 06/23/20 Recorded SARS-CoV-2 (COVID-19) mRNA BNT-162b2 vac 04/19/21 Recorded SARS-CoV-2 (COVID-19) mRNA-1273 vaccine 09/19/20 G iven SARS-CoV-2 (COVID-19) mRNA-1273 vaccine 08/22/20 G iven pneumococcal 23-valent vaccine 4 04/25/20 Given Influenza Virus Vaccine (oldterm) 03/20/20 Recorde d pneumococcal 13-valent vaccine 03/09/18 Given tetanus/diphtheria/pertussis, acel(Tdap) 5 12/23/16 Given 1Result Comment: AMELIA 2Result Comment: [id number] 3Result Comment: [03/09/2018] [id number] 4Result Comment: [id number] 5Result Comment: [12/23/2016] given without incident.....vs Medications [...] capsule, 2 Refills, Maintenance, 10/06/23 8:33:00 EDT, [facility]/pharmacy #[id number], Partial fill upon patient request if the prescription is for a scheduleII opioid drug., 157, cm, 10/06/23 8:12:00 EDT, Hei... Start Date: 10/06/23 Status: Ordered duloxetine 60 mg oral enteric coated capsule 1 capsule, By Mouth, Daily, REFILLS GOOD THRU 07/2023, # 90 capsule, 3 Refills, 07/26/23 10:44:00 EST, [facility]/pharmacy #[id number], 157, cm, 07/26/23 10:22:00 EST, Height, 86, kg, 05/10/23 11:11:00 EST, Dry Weight Start Date: 07/26/23 Status: Ordered fluticasone 50 mcg/inh nasal spray 2 sprays = 100 mcg, Nares, Both, Daily in AM, # 16 Gm, 0 Refills, Maintenance, 08/26/23 8:53:00 EST, [facility], Partial fill upon patient request if the prescription is for a schedule II opioid drug. Start Date: 08/26/23 Status: Ordered gabapentin 800 mg oral tablet 1 tablet = 800 mg, By Mouth, 2 times a day, # 60 tablet, 11 Refills, Maintenance, 12/06/23 12:13:00EDT, Tablet, [facility]/pharmacy #[id number], Partial fill upon patient request if the prescription is for a schedule II opioid drug., 157, cm, 12/06/23 12:09:00 ED... Start Date: 12/06/23 Status: Ordered Gamunex = 300 mg/kg, IV Infusion, every 4 weeks, 0 Refills, Maintenance, 05/05/23 13:20:00 EST, Partial fill upon patient request if the prescription is for a schedule II opioid drug. Start Date: 05/05/23 Status: Ordered hydrALAZINE 50 mg oral tablet 1 tablet = 50 mg, By Mouth, 2 times a day, # 180 tablet, 3 Refills, Maintenance, 07/26/23 10:42:00 EST, Tablet, [facility]/pharmacy #[id number], Partial fill upon patient request [...] Status: Ordered traZODone 50 mg oral tablet 75 mg, 1.5, tablet, By Mouth, Daily at bedtime, # 135 tablet, Refills 3, Tot. Refills 3, Maintenance, 12/06/23 12:12:00 EDT, Route to Pharmacy Electronically, [facility]/pharmacy #[id number], this is an increase.D/C Tizanidine, 157, cm, 12/06/23 12:09:00 EDT,... Start Date: 12/06/23 Stop Date: 11/30/24 Status: Ordered valsartan 320 mg oral tablet See Instructions, TAKE 1 TABLET BY MOUTH EVERY DAY, # 90 tablet, 3 Refills, Maintenance, 09/26/23 23:22:00 EDT, [facility]/pharmacy #[id number], 157, cm, 08/26/23 8:33:00 EST, Height, [...] Venous (Peripheral) Insufficiency, Unspecified Confirmed Active 1initial [place]: 17 on 08/09/14 2initial Oswestry Disability Index: [...] History Procedure/Surgical Profile 3 level Posterior fusion (89169) in 2013 at 58 Years. Spinal decompression (95349) in 2008 at 53 Years. Laminectomy with exploration and/or decompression of spinal cord and/or cauda equina, without facetectomy, foraminotomy or discectomy (eg, spinal stenosis), 1 or 2 vertebral segments; lumbar, except for spondylolisthesis (88706) in 1996 at 41 Years. SCS trial at [facility] complicated by early lead migration. Never had adequate trial. 8Surgical History Procedure/Surgical Profile 3 level Posterior fusion (32653) in 2013 at 58 Years. Spinal decompression (07736) in 2008 at 53 Years. Laminectomy with exploration and/or decompression of spinal cord and/or cauda equina, without facetectomy, foraminotomy or discectomy (eg, spinal stenosis), 1 or 2 vertebral segments; lumbar, except for spondylolisthesis (50795) in 1996 at 41 Years. SCS trial at [facility] complicated by early lead migration. Never had adequate trial. Vital Signs Most recent to oldest [Reference Range]: 1 2 Height 157 cm (12/06/23 12:09 PM) 157 cm (12/06/23 11:54 AM) Weight 86.5 kg (12/06/23 11:54 AM) Oxygen Saturation [94-100 %] 98 % (12/06/23 11:54 AM) Pulse Rate [55-90 bpm] 68 bpm (12/06/23 11:54 AM) Body Mass Index [18.5-24.99 kg/m2] 35.09 kg/m2 *>HHI* (12/06/23 11:54 AM) Blood Pressure [90-138/55-84 mm Hg] 128/ 68mm Hg (12/06/23 12:09 PM) 160/80mm Hg *H* (12/06/23 11:54 AM) Mode of Delivery (Oxygen) Room air (12/06/23 11:54 AM) Blood pressure sites Arm, left (12/06/23 11:54 AM) Dry Weight 86.5 kg (12/06/23 11:54 AM) Weight Obtained Via Standing scale (12/06/23 11:54 AM) Social History Social History Type Response Smoking Status Former smoker, quit more than 30 days ago entered on: 12/01/18 Sex Note * Martha Askew: PERFORM Event Display: Patient Education/Instruction Authored Date: Ambulatory Adult Visit Summary [facility] [address] [place] [address] Name: MICHAEL GUTIERREZ : 1955?? Visit: 12/06/2023 11:36?? Ambulatory Visit Instructions ?? Your Care Team Primary Care Provider Solis Roman MD? This Visit Provider Solis Roman MD Your Diagnosis Hypertension Lack of adequate sleep Vitals Signs Pulse Rate: 68 bpm Height: 157 cm Systolic Blood Pressure: 128 mm Hg Weight: 86.5 kg Diastolic Blood Pressure: 68 mm Hg Body Mass Index:??35.09 kg/m2??Critical Oxygen Saturation: 98 % Body surface area: 1.94 What to do next Scheduled Follow-Up Appointments Tuesday 10:20 AM EDT ?? With: Solis Roman MD Where: [facility] [address] [place] [address]- Status: Pending Follow-Up Appointments Follow Up with??Solis Roman MD When:??02/06/2024 10:20 AM EDT Why: RET Where: [address] [place] [address] Adult [place] [address]- Future Orders BUN - Routine, Once, 12/06/23 12:15:00 EDT, Single or Recurring Future Order, [facility], Blood?? Creatinine - Routine, Once, 12/06/23 12:15:00 EDT, Single or Recurring Future Order, [facility], Blood?? Electrolytes (Lytes) - Routine, Once, 12/06/23 12:15:00 EDT, Single or Recurring Future Order, [facility], Blood?? Medications The list below reflects the information in our records and provided by you today along with any changes made during this visit. Please continue your medications until treatment is completed or stopped by your provider. If this is different from the information you have or there are other questions,please contact the prescribing provider. What How Much When Instructions Changed Gabapentin (gabapentin 800 mg oral tablet) 1 tab(s) Oral Twice a day Pickup at [facility]/pharmacy #2335 Changed Trazodone (traZODone 50 mg oral tablet) 1.5 tab(s) Oral Daily at Bedtime Duration: 90 Days Pickup at [facility]/pharmacy #[id number] Unchanged Acetaminophen (acetaminophen 325 mg oral tablet) 650 Milligram Oral Every 6 hours May take OTC follow directions on bottle not to exceed 3000 mg/ day ?? Unchanged Cevimeline (cevimeline 30 mg oral capsule) 1 capsule Oral 3 times a day as needed for Other dry mouth ?? Unchanged Doxepin (doxepin 100 mg oral capsule) 1 capsule Oral Daily at Bedtime Unchanged Duloxetine (duloxetine 60 mg oral enteric coated capsule) 1 capsule Oral Daily REFILLS GOOD THRU 2023 ?? Unchanged Fluticasone Nasal (fluticasone 50 mcg/ inh nasal spray) 2 spray(s) Nares, Both Daily in the morning Unchanged hydrALAZINE (hydrALAZINE 50 mg oral tablet) 1 tab(s) Oral Twice a day Duration: 90 Days Unchanged Hydrochlorothiazide/ Triamterene (hydrochlorothiazide-triamterene 25 mg-37.5 mg oral capsule) 1 capsule Oral Daily Unchanged Immune Globulin Intravenous (Gamunex) 300 Milligrams/Kilogram Intravenous Infusion every 4 weeks ?? Unchanged Metoprolol (Metoprolol Succinate ER 25 mg oral tablet, extended release) 1 tab(s) Oral Daily take ??with ??the 50 ??mgs ??tablet ??of ??metoprolol ??to = 75 ??mgs ?? Unchanged Metoprolol (Metoprolol Succinate ER 50 mg oral tablet, extended release) 1 tab(s) Oral Daily Unchanged Valsartan (valsartan 320 mg oral tablet) See instructions TAKE 1 TABLET BY MOUTH EVERY DAY ?? Pharmacy Information [facility]/pharmacy #[id number]: [address] [place] [phone] ?? What How Much When Comments Stop Taking Tizanidine (tiZANidine 2 mg oral tablet) 2 tab(s) Oral Daily at Bedtime Duration: 90 Days Test Performed Below is a partial list of the tests performed during your Visit. You may have had other tests and procedures not included in this list. Please discuss all test results with your provider. BUN?-- Results Pending -- Creatinine?-- Results Pending -- Lytes?-- Results Pending -- You will be contacted within 72 hours with your results. Medications and Immunizations Administered Medications Given During Visit No medications given during this visit.?? Allergies (NKA means No Known Allergies) NKA Common Emergency Awareness Tips IS IT A STROKE? Act FAST and Check for these signs: FACE Does the face look uneven? ARM Does one arm drift down? SPEECH Does their speech sound strange? TIME Call at any sign of stroke ?? Heart Attack Signs Chest discomfort: Most heart attacks involve discomfort in the center of the chest and lasts more than a few minutes, or goes away and comes back. It can feel like uncomfortable pressure, squeezing, fullness or pain. Discomfort in upper body: Symptoms can include pain or discomfort in one or both arms, back, neck, jaw or stomach. Shortness of breath: With or without discomfort. Other signs: Breaking out in a cold sweat, nausea, or lightheaded. Remember, MINUTES DO MATTER. If you experience any of these heart attack warning signs, call to get immediate medical attention! ?? Smoking can increase your chances of developing chronic health problems and can cause harmful effects to other family members in your house. If you smoke, you are strongly encouraged to quit. Please call [facility] Link at [phone] or [phone] ([phone]) or log in to [email or web address] for referrals to smoking cessation programs. ?? The National Suicide Prevention Hotline is available 10/01 if you or someone you know needs to find a reason to keep living. By calling 4-068-022-ATOMOO (1207) you'll be connected to a skilled, trained counselor at a crisis center in your area. [facility] Portal You can view and manage your care through the patient portal or by using a health care kirsten of your choosing. [employer] is a website that allows you to securely view your medical information including your hospital discharge summary, office visit summaries, medications and follow-up visits. You can also request appointments, renew medications, and request access to your medical information using a health care kirsten of your choosing, or just ask a question. You can enroll at [email or web address] or register during your next office visit. [facility], in keeping with [facility] guidance, no longer requires face masks for staff, patientsor visitors in most situations. Similiar to time spent indoors at other locations, there is the chance that you were exposed to repiratory viruses during your time with us (such as flu or COVID-19). If you develop symptoms concerning for a viral respiratory infection, please seek testing (and treatment if indicated) from your medical provider or home test kit. ?? Disclaimer: The information provided is of a general nature and is intended to be used in conjunction with the recommendations and advice of your health care practitioner. Every effort has been made to ensure that the information provided is accurate and complete at the time it is provided to you however, as your needs change, or, as new information becomes available, different or additional instructions may be required. ?? If you have questions, please consult with your primary care provider or pharmacist, as appropriate. This information is not intended to serve as substitution for assessment and evaluation by a qualified health care provider. If you do not have a primary care provider, you may find a [facility] provider by calling [facility] at [phone]. * Martha Askew: PERFORM Event Display: Patient Education/Instruction Authored Date: [id number] Ambulatory Adult Visit Summary [facility] [address] [place] [address] Name: MICHAEL GUTIERREZ : 1955?? Visit: 12/06/2023 11:36?? Ambulatory Visit Instructions ?? Your Care Team Primary Care Provider Solis Roman MD? This Visit Provider Solis Roman MD Your Diagnosis Hypertension Lack of adequate sleep Vitals Signs Pulse Rate: 68 bpm Height: 157 cm Systolic Blood Pressure: 128 mm Hg Weight: 86.5 kg Diastolic Blood Pressure: 68 mm Hg Body Mass Index:??35.09 kg/m2??Critical Oxygen Saturation: 98 % Body surface area: 1.94 What to do next Scheduled Follow-Up Appointments Tuesday 10:20 AM EDT ?? With: Solis Roman MD Where: [facility] [address] [place] [address]- Status: Pending Follow-Up Appointments Follow Up with??Solis Roman MD When:??02/06/2024 10:20 AM EDT Why: RET Where: [address] [place] [address] Adult [place] [address]- Future Orders BUN - Routine, Once, 12/06/23 12:15:00 EDT, Single or Recurring Future Order, [facility], Blood?? Creatinine - Routine, Once, 12/06/23 12:15:00 EDT, Single or Recurring Future Order, [facility], Blood?? Electrolytes (Lytes) - Routine, Once, 12/06/23 12:15:00 EDT, Single or Recurring Future Order, [facility], Blood?? Medications The list below reflects the information in our records and provided by you today along with any changes made during this visit. Please continue your medications until treatment is completed or stopped by your provider. If this is different from the information you have or there are other questions,please contact the prescribing provider. What How Much When Instructions Changed Gabapentin (gabapentin 800 mg oral tablet) 1 tab(s) Oral Twice a day Pickup at [facility]/pharmacy #2339 Changed Trazodone (traZODone 50 mg oral tablet) 1.5 tab(s) Oral Daily at Bedtime Duration: 90 Days Pickup at [facility]/pharmacy #2339 Unchanged Acetaminophen (acetaminophen 325 mg oral tablet) 650 Milligram Oral Every 6 hours May take OTC follow directions on bottle not to exceed 3000 mg/ day ?? Unchanged Cevimeline (cevimeline 30 mg oral capsule) 1 capsule Oral 3 times a day as needed for Other dry mouth ?? Unchanged Doxepin (doxepin 100 mg oral capsule) 1 capsule Oral Daily at Bedtime Unchanged Duloxetine (duloxetine 60 mg oral enteric coated capsule) 1 capsule Oral Daily REFILLS GOOD THRU 2023 ?? Unchanged Fluticasone Nasal (fluticasone 50 mcg/ inh nasal spray) 2 spray(s) Nares, Both Daily in the morning Unchanged hydrALAZINE (hydrALAZINE 50 mg oral tablet) 1 tab(s) Oral Twice a day Duration: 90 Days Unchanged Hydrochlorothiazide/ Triamterene (hydrochlorothiazide-triamterene 25 mg-37.5 mg oral capsule) 1 capsule Oral Daily Unchanged Immune Globulin Intravenous (Gamunex) 300 Milligrams/Kilogram Intravenous Infusion every 4 weeks ?? Unchanged Metoprolol (Metoprolol Succinate ER 25 mg oral tablet, extended release) 1 tab(s) Oral Daily take ??with ??the 50 ??mgs ??tablet ??of ??metoprolol ??to = 75 ??mgs ?? Unchanged Metoprolol (Metoprolol Succinate ER 50 mg oral tablet, extended release) 1 tab(s) Oral Daily Unchanged Valsartan (valsartan 320 mg oral tablet) See instructions TAKE 1 TABLET BY MOUTH EVERY DAY ?? Pharmacy Information [facility]/pharmacy #[id number]: [address] [place] [phone] ?? What How Much When Comments Stop Taking Tizanidine (tiZANidine 2 mg oral tablet) 2 tab(s) Oral Daily at Bedtime Duration: 90 Days Test Performed Below is a partial list of the tests performed during your Visit. You may have had other tests and procedures not included in this list. Please discuss all test results with your provider. BUN?-- Results Pending -- Creatinine?-- Results Pending -- Lytes?-- Results Pending -- You will be contacted within 72 hours with your results. Medications and Immunizations Administered Medications Given During Visit No medications given during this visit.?? Allergies (NKA means No Known Allergies) NKA Common Emergency Awareness Tips IS IT A STROKE? Act FAST and Check for these signs: FACE Does the face look uneven? ARM Does one arm drift down? SPEECH Does their speech sound strange? TIME Call at any sign of stroke ?? Heart Attack Signs Chest discomfort: Most heart attacks involve discomfort in the center of the chest and lasts more than a few minutes, or goes away and comes back. It can feel like uncomfortable pressure, squeezing, fullness or pain. Discomfort in upper body: Symptoms can include pain or discomfort in one or both arms, back, neck, jaw or stomach. Shortness of breath: With or without discomfort. Other signs: Breaking out in a cold sweat, nausea, or lightheaded. Remember, MINUTES DO MATTER. If you experience any of these heart attack warning signs, call to get immediate medical attention! ?? Smoking can increase your chances of developing chronic health problems and can cause harmful effects to other family members in your house. If you smoke, you are strongly encouraged to quit. Please call [facility] [facility] at [phone] or [phone]) or log in to [email or web address] for referrals to smoking cessation programs. ?? The National Suicide Prevention Hotline is available 10/01 if you or someone you know needs to find a reason to keep living. By calling 8-437-103-gnfq (9613) you'll be connected to a skilled, trained counselor at a crisis center in your area. [facility] Portal You can view and manage your care through the patient portal or by using a health care kirsten of your choosing. [employer] is a website that allows you to securely view your medical information including your hospital discharge summary, office visit summaries, medications and follow-up visits. You can also request appointments, renew medications, and request access to your medical information using a health care kirsten of your choosing, or just ask a question. You can enroll at [email or web address] or register during your next office visit. [facility], in keeping with [facility] guidance, no longer requires face masks for staff, patientsor visitors in most situations. Similiar to time spent indoors at other locations, there is the chance that you were exposed to repiratory viruses during your time with us (such as flu or COVID-19). If you develop symptoms concerning for a viral respiratory infection, please seek testing (and treatment if indicated) from your medical provider or home test kit. ?? Disclaimer: The information provided is of a general nature and is intended to be used in conjunction with the recommendations and advice of your health care practitioner. Every effort has been made to ensure that the information provided is accurate and complete at the time it is provided to you however, as your needs change, or, as new information becomes available, different or additional instructions may be required. ?? If you have questions, please consult with your primary care provider or pharmacist, as appropriate. This information is not intended to serve as substitution for assessment and evaluation by a qualified health care provider. If you do not have a primary care provider, you may find a [facility] provider by calling [facility] Link at [phone]. Patient Care team information Care Team Personnel Name: Luis Combs RN Position: [facility] RN Member Role: Primary Care Nurse Name: Solis Roman MD Position: S Physician - Primary Care Member Role: PCP Address: Address: [address] [place] [address] Adult & Pediatric Medicine [place], [place] [address] Name: Iris Al RN Position: S RN Member Role: Primary Care Nurse Name: Stacie Guardado RN Position: [facility] RN Member Role: Primary Care Nurse Name: Tk Mendoza RN Position: S RN Member Role: Primary Care Nurse Care Team Related Persons Name: RANDY CAPUTO Address: [place] [address] Name: ERIN CHATTERJEE Address: home [address] [place] [address] Name: CRISTA WEST Address: home [address] [place] [address]
--- OUTSIDE RECORDS SUMMARY | 2024-01-05 10:22 | XMS_ITS | Continuity of Care Document ---
Author Organization [facility] ter Address [address] [place] [address]- Care Team Providers Care Basketball Referee Name Role Phone Solis Roman MD Primary Care Physician [phone] Encounter [facility] [place] Date(s): 05/07/20 - 06/06/[address] [address]- Attending Physician: Not on Staff, Attending MD Admitting Physician: Not on Staff, Admitting MD Referring Physician: Not on Staff, Referring MD Allergies, Adverse Reactions, Alerts No Known [...] tetanus/diphtheria/pertussis, acel(Tdap) 4 12/23/16 Given 1Result Comment: [id number] 2Result Comment: [id number] 3Result Comment: [03/09/2018] [id number] 4Result Comment: [12/23/2016] given without incident.....vs Medications [...] 0, Maintenance,controlled substance agreement signed 08/30/14; preferred pharm:[facility]. dx: failed back sydrome, 08/30/14 10:48:33, Compound Start Date: 08/30/14 Status: Ordered doxepin 150 mg oral capsule 1 capsule = 150 mg, By Mouth, Daily at bedtime, # 90 capsule, 3 Refills, Maintenance, 06/06/20 10:17:00 EST, Capsule, [facility]/pharmacy #[id number], do not fill until pt calls, 160, cm, 05/09/20 16:02:00 EST, Height, 86.5, kg, 05/07/20 6:28:00 EST, Dry Weight Start Date: 06/06/20 Status: Ordered duloxetine 60 mg oral enteric coated capsule 1 capsule = 60 mg, By Mouth, Daily, # 30 capsule, 11 Refills, Maintenance, 10/15/19 9:12:00 EDT, Capsule, [facility]/pharmacy #[id number], 159, cm, 08/20/19 13:42:00 EST, Height, 93.1, kg, 11/21/18 12:27:00 EDT, Dry Weight Start Date: 10/15/19 Status: Ordered gabapentin 800 mg oral tablet 1 tablet = 800 mg, By Mouth, 3 times a day, # 90 tablet, 11 Refills, Maintenance, 06/06/20 10:19:00EST, Tablet, [facility]/pharmacy #[id number], Partial fill upon patient request if the prescription is for a schedule II opioid drug., 160, cm, 05/09/20 16:02:00 ES... Start Date: 06/06/20 Status: Ordered hydrochlorothiazide 12.5 mg oral tablet 1 tablet = 12.5 mg, By Mouth, Daily, D/C HCTZ/ Triamterene, # 30 tablet, 11 Refills, Maintenance, 04/27/20 11:12:00 EST, Tablet, [facility]/pharmacy #2339, d/c DYAZIDE, 159, cm, 04/25/20 [...] 06/25/19 13:39:00 EST, Route to Pharmacy Electronically, [facility]/pharmacy #2339, this is an increase, 159, [...] 10/15/19 9:13:00 EDT, Route to Pharmacy Electronically, [facility]/pharmacy #[id number], 159, cm, 08/20/19 13:42:00EST, Height, [...] Venous (Peripheral) Insuffic iency, Unspecified(Confirmed) Active 1initial [place]: 17 on 08/09/14 2initial Oswestry Disability Index: [...] History Procedure/Surgical Profile 3 level Posterior fusion (80399) in 2013 at 58 Years. Spinal decompression (48270) in 2008 at 53 Years. Laminectomy with exploration and/or decompression of spinal cord and/or cauda equina, without facetectomy, foraminotomy or discectomy (eg, spinal stenosis), 1 or 2 vertebral segments; lumbar, except for spondylolisthesis (57160) in 1996 at 41 Years. SCS trial at [facility] complicated by early lead migration. Never had adequate trial. 8Surgical History Procedure/Surgical Profile 3 level Posterior fusion (82298) in 2013 at 58 Years. Spinal decompression (45743) in 2008 at 53 Years. Laminectomy with exploration and/or decompression of spinal cord and/or cauda equina, without facetectomy, foraminotomy or discectomy (eg, spinal stenosis), 1 or 2 vertebral segments; lumbar, except for spondylolisthesis (74348) in 1996 at 41 Years. SCS trial at [facility] complicated by early lead migration. Never had adequate trial. Social History Social History Type Response Smoking Status Former smoker, quit more than 30 days ago entered on: 12/01/18 Sex
[2024-01-05 10:23] VITALS: BP 124/82; PULSE 74; TEMP 36.9; O2SAT 98; BMI 35.1
--- OUTSIDE RECORDS SUMMARY | 2024-01-05 10:23 | XMS_ITS | Continuity of Care Document ---
Author Organization [facility] Address [address] [place] [address]- Care Team Providers Care Information Systems Auditor Name Role Phone Solis Roman MD Primary Care Physician Encounter [facility] Date(s): 01/19/22 - 01/26/22 [facility] [address] [place], [place] [address] Attending Physician: Solis Roman MD Allergies, Adverse [...] tetanus/diphtheria/pertussis, acel(Tdap) 4 12/23/16 Given 1Result Comment: [id number] 2Result Comment: [03/09/2018] [id number] 3Result Comment: [id number] 4Result Comment: [12/23/2016] given without incident.....vs Medications [...] 0, Maintenance,controlled substance agreement signed 08/30/14; preferred pharm:[facility]. dx: failed back sydrome, 08/30/14 10:48:33, Compound Start Date: 08/30/14 Status: Ordered doxepin 150 mg oral capsule 1 capsule, By Mouth, Daily at bedtime, # 90 capsule, 3 Refills, [id number], 160, cm, 06/22/21 15:54:00 EST, Height, 86.5, kg, 05/07/20 6:28:00 EST, Dry Weight Start Date: 07/21/21 Status: Ordered duloxetine 60 mg oral enteric coated capsule 1 capsule, By Mouth, Daily, # 90 capsule, 3 Refills, [id number], 160, cm, 08/31/21 15:19:00 EDT, Height, 86.5, kg, 05/07/20 6:28:00 EST, Dry Weight Start Date: 10/30/21 Status: Ordered gabapentin 800 mg oral tablet 1 tablet = 800 mg, By Mouth, 3 times a day, # 90 tablet, 11 Refills, Maintenance, 10/05/21 12:46:00EDT, Tablet, [facility]/pharmacy #[id number], Partial fill upon patient request if the prescription is for a schedule II opioid drug., 160, cm, 08/31/21 15:19:00 ED... Start Date: 10/05/21 Status: Ordered hydrALAZINE 25 mg oral tablet 25 mg, 1, tablet, By Mouth, 2 times a day, # 60 tablet, Refills 11, Tot. Refills 11, Maintenance, 08/03/21 14:23:00 EST, Route to Pharmacy Electronically, [facility]/pharmacy #[id number], Partial fill upon patient request if the prescription is for a schedule II o... Start Date: 08/03/21 Status: Ordered hydrochlorothiazide-triamterene 25 mg-37.5 mg oral capsule 1 capsule, By Mouth, Daily, # 30 capsule, 11 Refills, Maintenance, 06/22/21 16:39:00 EST, Capsule, [facility]/pharmacy #[id number], d/c hydrochlorothiazide, 1 capsule By [...] tablet, 3 Refills, Maintenance, 06/18/21 14:42:00 EST, [facility]/pharmacy#2339, 160, cm, 06/18/21 14:17:00 EST, Height, 86.5, kg, 05/07/20 6:28:00 EST, Dry Weight Start Date: 06/18/21 Status: Ordered tiZANidine 2 mg oral tablet 4 mg, 2, tablet, By Mouth, Daily at bedtime, # 180 tablet, Refills 3, Tot. Refills 3, Maintenance, 01/19/22 11:02:00 EDT, Route to Pharmacy Electronically, [facility]/pharmacy #[id number], 160, cm, 08/31/21 15:19:00 EDT, Height, 86.5, kg, 05/07/20 6:28:00 EST, Dry... Start Date: 01/19/22 Stop Date: 01/14/23 Status: Ordered traZODone 50 mg oral tablet See Instructions, TAKE 1 TABLET BY MOUTH EVERYDAY AT BEDTIME, # 90 tablet, Refills 3, Tot. Refills 3, Maintenance, 08/03/21 14:24:00 EST, Instructions Replace Required Details, Route to Pharmacy Electronically, [facility]/pharmacy #[id number], 160, cm, 08/03/21 14... Start Date: 08/03/21 Status: Ordered valsartan 320 mg oral tablet 1 tablet = 320 mg, By Mouth, Daily, # 90 tablet, 3 Refills, Maintenance, 06/18/21 14:40:00 EST, Tablet, [facility]/pharmacy #2339, this is a n inrease [...] Venous (Peripheral) Insuffic iency, Unspecified(Confirmed) Active 1initial [place]: 17 on 08/09/14 2initial Oswestry Disability Index: 57% ( severe disability ) on 08/09/14; initial Neck Disability Index: 40% on 08/16/14 3SOAPP-R: 19 ON 08/09/14 4On 05/31/2013 underwent left total knee arthroplasty with computer navigation for osteoarthritis, left knee by Luis Higgins M.D. at [facility]. 5On 09/24/2008 underwent 1. Open decompression right shoulder (acromioplasty, release of coracoacromial ligament). 2. Distal clavicle excision. 3. Repair of massive markedly retracted posterosuperior cuff tear. 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 at [facility]. 6Polysomnogram performed on 08/17/2014 at [facility] revealed 1. Obstructive sleep apnea, moderate 2. Hypoventilation with sleep 7Surgical History Procedure/Surgical Profile 3 level Posterior fusion (24286) in 2013 at 58 Years. Spinal decompression (73850) in 2008 at 53 Years. Laminectomy with exploration and/or decompression of spinal cord and/or cauda equina, without facetectomy, foraminotomy or discectomy (eg, spinal stenosis), 1 or 2 vertebral segments; lumbar, except for spondylolisthesis (77110) in 1996 at 41 Years. SCS trial at [facility] complicated by early lead migration. Never had adequate trial. 8Surgical History Procedure/Surgical Profile 3 level Posterior fusion (33138) in 2013 at 58 Years. Spinal decompression (26373) in 2008 at 53 Years. Laminectomy with exploration and/or decompression of spinal cord and/or cauda equina, without facetectomy, foraminotomy or discectomy (eg, spinal stenosis), 1 or 2 vertebral segments; lumbar, except for spondylolisthesis (79389) in 1996 at 41 Years. SCS trial at [facility] complicated by early lead migration. Never had adequate trial. Vital Signs Most recent to oldest [Reference Range]: 1 2 Blood Pressure [90-138/55-84 mm Hg] 98/6 8mm Hg (01/19/22 11:08 AM) 140/69mm Hg *H* (01/19/22 10:44 AM) Blood pressure sites Arm, left (01/19/22 10:44 AM) Social History Social History Type Response Smoking Status Former smoker, quit more than 30 days ago entered on: 12/01/18 Sex
--- OUTSIDE RECORDS SUMMARY | 2024-01-05 10:23 | XMS_ITS | Continuity of Care Document ---
Author Organization [facility] Address [address] [place] [address]- Care Team Providers Care Project Director Name Role Phone Solis Roman MD Primary Care Physician [place] [facility] [place]22[place]23 [place] 05/22/23 [facility] [address] [place] [address]- Attending Physician: Admtr, Mary Admitting Physician: Admtr, Ar8 Referring Physician: Admtr, Ar8 Allergies, Adverse Reactions, Alerts No Known Allergies Immunizations Given and Recorded Vaccine Date Status Refusal Reason influenza virus vaccine, inactivated 1 03/16/23 Re corded influenza virus vaccine, inactivated 04/08/22 Josué rded influenza virus vaccine, inactivated 04/19/21 Josué rded influenza virus vaccine, inactivated 2 05/03/19 Gi serafin influenza virus vaccine, inactivated 3 03/09/18 Gi serafin influenza virus vaccine, inactivated 03/10/16 Josué rded SARS-CoV-2 mRNA ([id number]) vax 04/08/22 Recorded zoster vaccine, inactivated 11/18/21 Recorded zoster vaccine, inactivated 06/23/20 Recorded SARS-CoV-2 (COVID-19) mRNA BNT-162b2 vac 04/19/21 Recorded SARS-CoV-2 (COVID-19) mRNA-1273 vaccine 09/19/20 G iven SARS-CoV-2 (COVID-19) mRNA-1273 vaccine 08/22/20 G iven pneumococcal 23-valent vaccine 4 04/25/20 Given Influenza Virus Vaccine (oldterm) 03/20/20 Recorde d pneumococcal 13-valent vaccine 03/09/18 Given tetanus/diphtheria/pertussis, acel(Tdap) 5 7/6/17 Given 1Result Comment: [facility] 2Result Comment: [id number] 3Result Comment: [03/09/2018] [id number] 4Result Comment: [id number] 5Result Comment: [12/23/2016] given without incident.....vs Medications [...] 90 capsule, 3 Refills, 08/23/22 11:39:00 EST, [facility], 160, cm, 08/31/21 15:19:00 EDT, Height Start Date: 08/23/22 Status: Ordered duloxetine 60 mg oral enteric coated capsule 1 capsule, By Mouth, Daily, [facility] 07/2023, # 90 capsule, 3 Refills, 07/27/22 15:27:00 EST, [facility]/pharmacy #[id number], 160, cm, 08/31/21 15:19:00 EDT, Height [...] 08/13/22 9:21:00 EST, Route to Pharmacy Electronically, [facility]/pharmacy #[id number], Partial fill upon patientrequest if the prescription is for a schedule II op... Start Date: 08/13/22 Status: Ordered hydrochlorothiazide-triamterene 25 mg-37.5 mg oral capsule 1 capsule, By Mouth, Daily, # 90 capsule, 1 Refills, Maintenance, 02/02/23 9:30:00 EDT, [facility], 90, 1 capsule By Mouth Daily, 160, cm, 08/31/21 15:19:00 EDT, Height Start Date: 02/02/23 Status: Ordered Metoprolol Succinate ER 50 mg oral tablet, extended release 1 tablet, By Mouth, Daily, # 90 tablet, 3 Refills, Maintenance, 09/21/22 13:56:00 EDT, [facility], 160, cm, 08/31/21 15:19:00 EDT, Height Start Date: 09/21/22 Status: Ordered pantoprazole 40 mg oral delayed release tablet = 40 mg, By Mouth, Daily, 0 Refills, Maintenance, 11/22/23 8:32:00 EST, EC Tablet Start Date: 05/11/23 Status: Ordered tiZANidine 2 mg oral tablet 4 mg, 2, tablet, By Mouth, Daily at bedtime, # 180 tablet, Refills 3, Tot. Refills 3, Maintenance, 03/15/23 12:53:00 EDT, Route to Pharmacy Electronically, [facility]/pharmacy #[id number], 160, cm, 08/31/21 15:19:00 EDT, Height Start Date: 03/15/23 Stop Date: 03/09/24 Status: Ordered traZODone 50 mg oral tablet 1, tablet, By Mouth, Daily at bedtime, # 90 tablet, Refills 3, Maintenance, 05/02/23 21:24:00 EST, Route to Pharmacy Electronically, [id number], 160, cm, 04/22/23 9:05:00 EDT, Height Start Date: 05/02/23 Status: Ordered valsartan 320 mg oral tablet 1 tablet, By Mouth, Daily, # 90 tablet, 1 Refills, Maintenance, 01/03/23 11:13:00 EDT, [facility]/pharmacy#[id number], 160, cm, 08/31/21 15:19:00 EDT, Height Start [...] Venous (Peripheral) Insufficiency, Unspecified Confirmed Active 1initial [place]: 17 on 08/09/14 2initial Oswestry Disability Index: [...] History Procedure/Surgical Profile 3 level Posterior fusion (57363) in 2013 at 58 Years. Spinal decompression (07662) in 2008 at 53 Years. Laminectomy with exploration and/or decompression of spinal cord and/or cauda equina, without facetectomy, foraminotomy or discectomy (eg, spinal stenosis), 1 or 2 vertebral segments; lumbar, except for spondylolisthesis (96159) in 1996 at 41 Years. SCS trial at [facility] complicated by early lead migration. Never had adequate trial. 8Surgical History Procedure/Surgical Profile 3 level Posterior fusion (60355) in 2014 at 58 Years. Spinal decompression (18830) in 2008 at 53 Years. Laminectomy with exploration and/or decompression of spinal cord and/or cauda equina, without facetectomy, foraminotomy or discectomy (eg, spinal stenosis), 1 or 2 vertebral segments; lumbar, except for spondylolisthesis (18295) in 1996 at 41 Years. SCS trial [...] Care Nurse Name: Solis Roman MD Position: [facility] Physician - Primary Care Member Role: PCP Address: Address: [address] [place] [address] Adult [facility] Pediatric [facility] [place], [place] [address] Name: Iris Al RN Position: S RN Member Role: Primary Care Nurse Name: Stacie Guardado RN Position: S RN Member Role: Primary Care Nurse Name: Loni Ervin RN Position: S RN Member Role: Primary Care Nurse Name: Tk Mendoza RN Position: S RN Member Role: Primary Care Nurse Care Team Related Persons Name: PATITORANDY Address: [place] [address] Name: ERIN CHATTERJEE Address: home [address] [place] [address] Name: CRISTA WEST Address: home [address] [place] [id number]
--- OUTSIDE RECORDS SUMMARY | 2024-01-05 10:23 | XMS_ITS | Continuity of Care Document ---
Author Organization [facility] Address [address] [place] [address]- Care Team Providers Care Well Cleaner Name Role Phone Solis Roman MD Primary Care Physician Encounter [facility] Date(s): 09/21/22 - 10/21/22 [facility] [address] [place], [place] [address] Allergies, Adverse Reactions, Alerts No Known Allergies Immunizations Given and Recorded Vaccine Date Status Refusal Reason SARS-CoV-2 mRNA (vllomzi-vaxo-okuep) vax 04/08/22 Recorded influenza virus vaccine, inactivated [...] tetanus/diphtheria/pertussis, acel(Tdap) 4 12/23/16 Given 1Result Comment: [id number] 2Result Comment: [03/09/2018] [id number] 3Result Comment: [id number] 4Result Comment: [12/23/2016] given without incident.....vs Medications [...] Maintenance,controlled substance agreement signed 08/30/14; preferred pharm:[facility]. dx: failed back sydrome, 08/30/14 10:48:33, Compound Start Date: 08/30/14 Status: Ordered doxepin 150 mg oral capsule 1 capsule, By Mouth, Daily at bedtime, # 90 capsule, 3 Refills, 08/23/22 11:39:00 EST, [facility]/pharmacy#2339, 160, cm, 08/31/21 15:19:00 EDT, Height Start Date: 08/23/22 Status: Ordered duloxetine 60 mg oral enteric coated capsule 1 capsule, By Mouth, Daily, [facility] 07/2023, # 90 capsule, 3 Refills, 07/27/22 15:27:00 EST, [facility]/pharmacy #2339, 160, cm, 08/31/21 15:19:00 EDT, Height Start Date: 07/27/22 Status: Ordered gabapentin 800 mg oral tablet 1 tablet = 800 mg, By Mouth, 3 times a day, # 90 tablet, 11 Refills, Maintenance, 10/05/21 12:46:00EDT, Tablet, [facility]/pharmacy #[id number], Partial fill upon patient request if the prescription is for a schedule II opioid drug., 160, cm, 08/31/21 15:19:00 ED... Start Date: 10/05/21 Status: Ordered hydrALAZINE 25 mg oral tablet 25 mg, 1, tablet, By Mouth, 2 times a day, # 60 tablet, Refills 11, Tot. Refills 11, Maintenance, 08/13/22 9:21:00 EST, Route to Pharmacy Electronically, [facility]/pharmacy #[id number], Partial fill upon patientrequest if the prescription is for a schedule II op... Start Date: 08/13/22 Status: Ordered hydrochlorothiazide-triamterene 25 mg-37.5 mg oral capsule 1 capsule, By Mouth, Daily, # 90 capsule, 1 Refills, Maintenance, 05/27/22 11:51:00 EST, [facility], 90, TAKE 1 CAPSULE BY MOUTH EVERY [...] tablet, 3 Refills, Maintenance, 09/21/22 13:56:00 EDT, [facility]/pharmacy#2339, 160, cm, 08/31/21 15:19:00 EDT, Height Start Date: 09/21/22 Status: Ordered tiZANidine 2 mg oral tablet 4 mg, 2, tablet, By Mouth, Daily at bedtime, # 180 tablet, Refills 3, Tot. Refills 3, Maintenance, 01/19/22 11:02:00 EDT, Route to Pharmacy Electronically, [facility]/pharmacy #[id number], 160, cm, 08/31/21 15:19:00 EDT, Height, 86.5, kg, 05/07/20 6:28:00 EST, Dry... Start Date: 01/19/22 Stop Date: 01/14/23 Status: Ordered traZODone 50 mg oral tablet See Instructions, TAKE 1 TABLET BY MOUTH EVERYDAY AT BEDTIME, # 90 tablet, Refills 1, Tot. Refills 1, Maintenance, 07/27/22 12:16:00 EST, Instructions Replace Required Details, Route to Pharmacy Electronically, [facility]/pharmacy #[id number], 160, cm, 08/31/21 15... Start Date: 07/27/22 Status: Ordered valsartan 320 mg oral tablet 1 tablet, By Mouth, Daily, # 90 tablet, 1 Refills, Maintenance, 05/27/22 11:53:00 EST, [facility], 160, cm, 08/31/21 15:19:00 EDT, Height Start [...] Venous (Peripheral) Insufficiency, Unspecified Confirmed Active 1initial [place]: 17 on 08/09/14 2initial Oswestry Disability Index: 57% ( severe disability ) on 08/09/14; initial Neck Disability Index: 40% on 08/16/14 3SOAPP-R: 19 ON 08/09/14 4On 05/31/2013 underwent left total knee arthroplasty with computer navigation for osteoarthritis, left knee by Luis Higgins M.D. at [facility]. 5On 09/24/2008 underwent 1. Open decompression right shoulder (acromioplasty, release of coracoacromial ligament). 2. Distal clavicle excision. 3. Repair of massive markedly retracted posterosuperior cuff tear. 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 at [facility]. 6Polysomnogram performed on 08/17/2014 at [facility] revealed 1. Obstructive sleep apnea, moderate 2. Hypoventilation with sleep 7Surgical History Procedure/Surgical Profile 3 level Posterior fusion (47955) in 2013 at 58 Years. Spinal decompression (76320) in 2008 at 53 Years. Laminectomy with exploration and/or decompression of spinal cord and/or cauda equina, without facetectomy, foraminotomy or discectomy (eg, spinal stenosis), 1 or 2 vertebral segments; lumbar, except for spondylolisthesis (81010) in 1996 at 41 Years. SCS trial at [facility] complicated by early lead migration. Never had adequate trial. 8Surgical History Procedure/Surgical Profile 3 level Posterior fusion (16978) in 2013 at 58 Years. Spinal decompression (42819) in 2008 at 53 Years. Laminectomy with exploration and/or decompression of spinal cord and/or cauda equina, without facetectomy, foraminotomy or discectomy (eg, spinal stenosis), 1 or 2 vertebral segments; lumbar, except for spondylolisthesis (96391) in 1996 at 41 Years. SCS trial at [facility] complicated by early lead migration. Never had adequate trial. Social History Social History Type Response Smoking Status Former smoker, quit more than 30 days ago entered on: 12/01/18 Sex Patient Care team information Care Team Personnel Name: Luis Combs RN Position: S RN Member Role: Primary Care Nurse Name: Solis Roman MD Position: [facility] Primary Care Physician Member Role: PCP Address: Address: [address] [place] [address] [place] [address]- Name: Loni Ervin RN Position: [facility] RN Member Role: Primary Care Nurse Name: Tk Mendoza RN Position: [facility] RN Member Role: Primary Care Nurse Care Team Related Persons Name: RANDY CAPUTO Address: [place] [address] Name: ERIN CHATTERJEE Address: home [address] [place] [address] Name: CRISTA WEST Address: home [address] [place] [address]
--- OUTSIDE RECORDS SUMMARY | 2024-01-05 10:23 | XMS_ITS | Continuity of Care Document ---
Author Organization [facility] Address [address] [place] [address]- Care Team Providers Care Cassandra Developer Name Role Phone Solis Roman MD Primary Care Physician Encounter [facility] Date(s): 01/19/21 - 03/20/21 [facility] [address] [place], [place] [address] Attending Physician: Solis Roman MD Allergies, Adverse [...] tetanus/diphtheria/pertussis, acel(Tdap) 4 12/23/16 Given 1Result Comment: [id number] 2Result Comment: [id number] 3Result Comment: [03/09/2018] [id number] 4Result Comment: [12/23/2016] given without incident.....vs Medications [...] Stockings See Instructions, # 2 each, Maintenance, Medication: _ Support stockings-Thigh High Custom CC2 Compression factor 30-40 Diagnose lymphoedema, 03/10/21 21:33:00 EDT, Supply Start Date: 03/10/21 Status: Ordered Controlled substance agreement Controlled substance agreement, See Instructions, # 1 each, Refills 0, Tot. Refills 0, Maintenance,controlled substance agreement signed 08/30/14; preferred pharm:[facility]. dx: failed back sydrome, 08/30/14 10:48:33, Compound Start Date: 08/30/14 Status: Ordered doxepin 150 mg oral capsule 1 capsule = 150 mg, By Mouth, Daily at bedtime, # 90 capsule, 3 Refills, Maintenance, 06/06/20 10:17:00 EST, Capsule, [facility]/pharmacy #[id number], do not fill until pt calls, 160, cm, 05/09/20 16:02:00 EST, Height, 86.5, kg, 05/07/20 6:28:00 EST, Dry Weight Start Date: 06/06/20 Status: Ordered duloxetine 60 mg oral enteric coated capsule 1 capsule = 60 mg, By Mouth, Daily, # 30 capsule, 11 Refills, Maintenance, 11/10/20 14:38:00 EDT, Capsule, [facility]/pharmacy #2339, 160, cm, 05/09/20 16:02:00 EST, Height, 86.5, kg, 05/07/20 6:28:00 EST, Dry Weight Start Date: 11/10/20 Status: Ordered gabapentin 800 mg oral tablet 1 tablet = 800 mg, By Mouth, 3 times a day, # 90 tablet, 11 Refills, Maintenance, 06/06/20 10:19:00EST, Tablet, [facility]/pharmacy #[id number], Partial fill upon patient request if the prescription is for a schedule II opioid drug., 160, cm, 05/09/20 16:02:00 ES... Start Date: 06/06/20 Status: Ordered hydrochlorothiazide 12.5 mg oral tablet 1 tablet = 12.5 mg, By Mouth, Daily, D/C HCTZ/ Triamterene, # 30 tablet, 11 Refills, Maintenance, 04/27/20 11:12:00 EST, Tablet, [facility]/pharmacy #[id number], d/c DYAZIDE, 159, cm, 04/25/20 11:27:00 EST, Height, 93.1, kg, 11/21/18 12:27:00 EDT, Dry Weight Start Date: 04/27/20 Status: Ordered Lymphedema clinic referral Lymphedema clinic referral, See Instructions, # 1 each, Refills 0, Tot. Refills 0, Maintenance, Please eval and treat for bilateral lower extremity edema, 01/25/14 16:02:15, Compound Start Date: 01/25/14 Status: Ordered Metoprolol Succinate ER 50 mg oral tablet, extended release 1 tablet, By Mouth, Daily, # 90 tablet, 1 Refills, Maintenance, 01/13/21 8:57:00 EDT, [id number], 160, cm, 05/09/20 16:02:00 EST, Height, 86.5, [...] 09/11/20 10:05:00 EDT, Route to Pharmacy Electronically, [id number], 160, cm, 05/09/20 16:02:00 EST, Height, 86.5, kg, 05/07/20 6:28:00 EST, Dry Weight Start Date: 09/11/20 Status: Ordered traZODone 50 mg oral tablet See Instructions, TAKE 1 TABLET BY MOUTH EVERYDAY AT BEDTIME, # 90 tablet, Refills 3, Tot. Refills 3, Maintenance, Instructions Replace Required Details, Route to Pharmacy Electronically, [id number], 160, cm, 05/09/20 16:02:00 EST, Height, 86.5,... Start Date: 08/13/20 Status: Ordered valsartan 160 mg oral tablet 160 mg, 1, tablet, By Mouth, Daily, Duplicate from 06/06/20 remaining refills sent, # 90 tablet, Refills 1, Tot. Refills 1, Maintenance, 01/12/21 8:43:00 EDT, Route to Pharmacy Electronically, [facility]/pharmacy #[id number], Partial fill upon patient request if t... Start Date: 01/12/21 Status: Ordered warfarin 1 mg oral tablet See Instructions, Take 1-10 tablets By Mouth Daily as directed, # 150 tablet, 0 Refills, Maintenance, 06/08/20 9:07:00 EST, Tablet, Partial fill upon patient request Start Date: 06/08/20 Status: Ordered warfarin 1 mg oral tablet See Instructions, Take 1-10 tablets By Mouth Daily as directed by [facility], # 150 tablet, 0 Refills, Maintenance, 05/08/20 [...] of total knee replac ement, left(Confirmed) 4 12/12/13 Active History of macular degeneration(Confirmed) Active S/P [...] Venous (Peripheral) Insuffic iency, Unspecified(Confirmed) Active 1initial [place]: 17 on 08/09/14 2initial Oswestry Disability Index: 57% ( severe disability ) on 08/09/14; initial Neck Disability Index: 40% on 08/16/14 3SOAPP-R: 19 ON 08/09/14 4On 05/31/2013 underwent left total knee arthroplasty with computer navigation for osteoarthritis, left knee by Luis Higgins M.D. at [facility]. 5On 09/24/2008 underwent 1. Open decompression right shoulder (acromioplasty, release of coracoacromial ligament). 2. Distal clavicle excision. 3. Repair of massive markedly retracted posterosuperior cuff tear. 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 at [facility]. 6Polysomnogram performed on 08/17/2014 at [facility] revealed 1. Obstructive sleep apnea, moderate 2. Hypoventilation with sleep 7Surgical History Procedure/Surgical Profile 3 level Posterior fusion (99255) in 2013 at 58 Years. Spinal decompression (42741) in 2008 at 53 Years. Laminectomy with exploration and/or decompression of spinal cord and/or cauda equina, without facetectomy, foraminotomy or discectomy (eg, spinal stenosis), 1 or 2 vertebral segments; lumbar, except for spondylolisthesis (64613) in 1996 at 41 Years. SCS trial at [facility] complicated by early lead migration. Never had adequate trial. 8Surgical History Procedure/Surgical Profile 3 level Posterior fusion (99507) in 2013 at 58 Years. Spinal decompression (17947) in 2008 at 53 Years. Laminectomy with exploration and/or decompression of spinal cord and/or cauda equina, without facetectomy, foraminotomy or discectomy (eg, spinal stenosis), 1 or 2 vertebral segments; lumbar, except for spondylolisthesis (35109) in 1996 at 41 Years. SCS trial at [facility] complicated by early lead migration. Never had adequate trial. Social History Social History Type Response Smoking Status Former smoker, quit more than 30 days ago entered on: 12/01/18 Sex
--- OUTSIDE RECORDS SUMMARY | 2024-01-05 10:23 | XMS_ITS | Continuity of Care Document ---
Author Organization [facility] Address [address] [place] [address]- Care Team Providers Care Behavioral Health Consultant Name Role Phone Solis Roman MD Primary Care Physician Encounter [facility] Date(s): 02/18/20 - 03/19/20 [facility] [address] [place] [address]- [facility] Allergies, Adverse Reactions, Alerts No Known Medication Allergies Substance Reaction Severity Status NKA Active Immunizations Given and Recorded Vaccine Date Status Refusal Reason influenza virus vaccine, inactivated 1 05/03/19 Gi serafin influenza virus vaccine, inactivated 2 03/09/18 Gi serafin influenza virus vaccine, inactivated 03/10/16 Josué rded pneumococcal 13-valent vaccine 03/09/18 Given tetanus/diphtheria/pertussis, acel(Tdap) 3 12/23/16 Given 1Result Comment: [id number] 2Result Comment: [03/09/2018] [id number] 3Result Comment: [12/23/2016] given without incident.....vs Medications [...] [facility]/pharmacy #[id number], 159, cm, 08/20/19 13:42:00EST, Height, [...] Venous (Peripheral) Insuffic iency, Unspecified(Confirmed) Active 1initial [place]: 17 on 08/09/14 2initial Oswestry Disability Index: 57% ( severe disability ) on 08/09/14; initial Neck Disability Index: 40% on 08/16/14 3SOAPP-R: 19 ON 08/09/14 4On 05/31/2013 underwent left total knee arthroplasty with computer navigation for osteoarthritis, left knee by Luis Higgins M.D. at [facility]. 5On 09/24/2008 underwent 1. Open decompression right shoulder (acromioplasty, release of coracoacromial ligament). 2. Distal clavicle excision. 3. Repair of massive markedly retracted posterosuperior cuff tear. 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 at [facility]. 6Polysomnogram performed on 08/17/2014 at [facility] revealed 1. Obstructive sleep apnea, moderate 2. Hypoventilation with sleep 7Surgical History Procedure/Surgical Profile 3 level Posterior fusion (87136) in 2013 at 58 Years. Spinal decompression (77651) in 2008 at 53 Years. Laminectomy with exploration and/or decompression of spinal cord and/or cauda equina, without facetectomy, foraminotomy or discectomy (eg, spinal stenosis), 1 or 2 vertebral segments; lumbar, except for spondylolisthesis (96195) in 1996 at 41 Years. SCS trial at [facility] complicated by early lead migration. Never had adequate trial. 8Surgical History Procedure/Surgical Profile 3 level Posterior fusion (31440) in 2013 at 58 Years. Spinal decompression (19125) in 2008 at 53 Years. Laminectomy with exploration and/or decompression of spinal cord and/or cauda equina, without facetectomy, foraminotomy or discectomy (eg, spinal stenosis), 1 or 2 vertebral segments; lumbar, except for spondylolisthesis (13281) in 1996 at 41 Years. SCS trial at [facility] complicated by early lead migration. Never had adequate trial. Social History Social History Type Response Smoking Status Former smoker, quit more than 30 days ago entered on: 12/01/18 Sex
--- OUTSIDE RECORDS SUMMARY | 2024-01-05 10:23 | XMS_ITS | Continuity of Care Document ---
Author Organization [facility] Address [address] [place] [address]- Care Team Providers Care Perpetual Inventory Clerk Name Role Phone Solis Roman MD Primary Care Physician Encounter [facility] Date(s): 05/26/20 - 06/25/20 [facility] [address] [place], [place] [address] Allergies, Adverse Reactions, Alerts [...] tetanus/diphtheria/pertussis, acel(Tdap) 4 12/23/16 Given 1Result Comment: [id number] 2Result Comment: [id number] 3Result Comment: [03/09/2018] [id number] 4Result Comment: [12/23/2016] given without incident.....vs Medications [...] 0, Maintenance,controlled substance agreement signed 08/30/14; preferred pharm:[facility] Alanna Wilson. dx: failed back sydrome, 08/30/14 10:48:33, Compound Start Date: 08/30/14 Status: Ordered doxepin 150 mg oral capsule 1 capsule = 150 mg, By Mouth, Daily at bedtime, # 90 capsule, 3 Refills, Maintenance, 06/06/20 10:17:00 EST, Capsule, [facility]/pharmacy #[id number], do not fill until pt calls, 160, cm, 05/09/20 16:02:00 EST, Height, 86.5, kg, 05/07/20 6:28:00 EST, Dry Weight Start Date: 06/06/20 Status: Ordered duloxetine 60 mg oral enteric coated capsule 1 capsule = 60 mg, By Mouth, Daily, # 30 capsule, 11 Refills, Maintenance, 10/15/19 9:12:00 EDT, Capsule, [facility]/pharmacy #[id number], 159, cm, 08/20/19 13:42:00 EST, Height, 93.1, kg, 11/21/18 12:27:00 EDT, Dry Weight Start Date: 10/15/19 Status: Ordered gabapentin 800 mg oral tablet 1 tablet = 800 mg, By Mouth, 3 times a day, # 90 tablet, 11 Refills, Maintenance, 06/06/20 10:19:00EST, Tablet, [facility]/pharmacy #2339, Partial fill upon patient request if the prescription is for a schedule II opioid drug., 160, cm, 05/09/20 16:02:00 ES... Start Date: 06/06/20 Status: Ordered hydrochlorothiazide 12.5 mg oral tablet 1 tablet = 12.5 mg, By Mouth, Daily, D/C HCTZ/ Triamterene, # 30 tablet, 11 Refills, Maintenance, 04/27/20 11:12:00 EST, Tablet, [facility]/pharmacy #2330, d/c DYAZIDE, 159, cm, 04/25/20 11:27:00 [...] 06/25/19 13:39:00 EST, Route to Pharmacy Electronically, [facility]/pharmacy #[id number], this is an increase, 159, cm, 06/25/19 [...] 10/15/19 9:13:00 EDT, Route to Pharmacy Electronically, [facility]/pharmacy #[id number], 159, cm, 08/20/19 13:42:00EST, Height, 93.1, [...] Venous (Peripheral) Insuffic iency, Unspecified(Confirmed) Active 1initial [place]: 17 on 08/09/14 2initial Oswestry Disability Index: 57% ( severe disability ) on 08/09/14; initial Neck Disability Index: 40% on 08/16/14 3SOAPP-R: 19 ON 08/09/14 4On 05/31/2013 underwent left total knee arthroplasty with computer navigation for osteoarthritis, left knee by Luis Higgins M.D. at [facility]. 5On 09/24/2008 underwent 1. Open decompression right shoulder (acromioplasty, release of coracoacromial ligament). 2. Distal clavicle excision. 3. Repair of massive markedly retracted posterosuperior cuff tear. 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 at [facility]. 6Polysomnogram performed on 08/17/2014 at [facility] revealed 1. Obstructive sleep apnea, moderate 2. Hypoventilation with sleep 7Surgical History Procedure/Surgical Profile 3 level Posterior fusion (43351) in 2013 at 58 Years. Spinal decompression (17447) in 2008 at 53 Years. Laminectomy with exploration and/or decompression of spinal cord and/or cauda equina, without facetectomy, foraminotomy or discectomy (eg, spinal stenosis), 1 or 2 vertebral segments; lumbar, except for spondylolisthesis (36742) in 1996 at 41 Years. SCS trial at [facility] complicated by early lead migration. Never had adequate trial. 8Surgical History Procedure/Surgical Profile 3 level Posterior fusion (96727) in 2013 at 58 Years. Spinal decompression (62220) in 2008 at 53 Years. Laminectomy with exploration and/or decompression of spinal cord and/or cauda equina, without facetectomy, foraminotomy or discectomy (eg, spinal stenosis), 1 or 2 vertebral segments; lumbar, except for spondylolisthesis (62297) in 1996 at 41 Years. SCS trial at [facility] complicated by early lead migration. Never had adequate trial. Social History Social History Type Response Smoking Status Former smoker, quit more than 30 days ago entered on: 12/01/18 Sex
--- OUTSIDE RECORDS SUMMARY | 2024-01-05 10:23 | XMS_ITS | Continuity of Care Document ---
Author Organization [facility] Address [address] [place] [address]- Care Team Providers Care Barber Or Beauty Shop Manager Name Role Phone Abel OTERO, Solis Li Primary Care Physician [phone] Encounter [facility] Date(s): 04/08/21 - 05/08/21 [facility] [address] [place] [address]- Allergies, Adverse Reactions, Alerts No Known Medication [...] tetanus/diphtheria/pertussis, acel(Tdap) 4 12/23/16 Given 1Result Comment: [id number] 2Result Comment: [id number] 3Result Comment: [03/09/2018] [id number] 4Result Comment: [12/23/2016] given without incident.....vs Medications [...] 0, Maintenance,controlled substance agreement signed 08/30/14; preferred pharm:[facility]. dx: failed back sydrome, 08/30/14 10:48:33, Compound Start Date: 08/30/14 Status: Ordered doxepin 150 mg oral capsule 1 capsule = 150 mg, By Mouth, Daily at bedtime, # 90 capsule, 3 Refills, Maintenance, 06/06/20 10:17:00 EST, Capsule, [facility]/pharmacy #[id number], do not fill until pt calls, 160, cm, 05/09/20 16:02:00 EST, Height, 86.5, kg, 05/07/20 6:28:00 EST, Dry Weight Start Date: 06/06/20 Status: Ordered duloxetine 60 mg oral enteric coated capsule 1 capsule = 60 mg, By Mouth, Daily, # 30 capsule, 11 Refills, Maintenance, 11/10/20 14:38:00 EDT, Capsule, [facility]/pharmacy #2339, 160, cm, 05/09/20 16:02:00 EST, Height, 86.5, kg, 05/07/20 6:28:00 EST, Dry Weight Start Date: 11/10/20 Status: Ordered gabapentin 800 mg oral tablet 1 tablet = 800 mg, By Mouth, 3 times a day, # 90 tablet, 11 Refills, Maintenance, 06/06/20 10:19:00EST, Tablet, [facility]/pharmacy #[id number], Partial fill upon patient request if the prescription is for a schedule II opioid drug., 160, cm, 05/09/20 16:02:00 ES... Start Date: 06/06/20 Status: Ordered hydrochlorothiazide 12.5 mg oral tablet 1 tablet = 12.5 mg, By Mouth, Daily, D/C HCTZ/ Triamterene, # 30 tablet, 5 Refills, Maintenance, 04/13/21 11:29:00 EDT, Tablet, [facility]/pharmacy #2339, d/c DYAZIDE, 160, cm, 05/09/20 16:02:00 EST, Height, 86.5, kg, 05/07/20 6:28:00 EST, Dry Weight Start Date: 04/13/21 Status: Ordered Lymphedema clinic referral Lymphedema clinic referral, See Instructions, # 1 each, Refills 0, Tot. Refills 0, Maintenance, Please eval and treat for bilateral lower extremity edema, 01/25/14 16:02:15, Compound Start Date: 01/25/14 Status: Ordered Metoprolol Succinate ER 50 mg oral tablet, extended release 1 tablet, By Mouth, Daily, # 90 tablet, 1 Refills, Maintenance, 01/13/21 8:57:00 EDT, [facility], 160, cm, 05/09/20 16:02:00 EST, Height, 86.5, [...] 09/11/20 10:05:00 EDT, Route to Pharmacy Electronically, [id number], 160, cm, 05/09/20 16:02:00 EST, Height, 86.5, kg, 05/07/20 6:28:00 EST, Dry Weight Start Date: 09/11/20 Status: Ordered traZODone 50 mg oral tablet See Instructions, TAKE 1 TABLET BY MOUTH EVERYDAY AT BEDTIME, # 90 tablet, Refills 3, Tot. Refills 3, Maintenance, Instructions Replace Required Details, Route to Pharmacy Electronically, [id number], 160, cm, 05/09/20 16:02:00 EST, Height, 86.5,... Start Date: 08/13/20 Status: Ordered valsartan 160 mg oral tablet 160 mg, 1, tablet, By Mouth, Daily, Duplicate from 06/06/20 remaining refills sent, # 90 tablet, Refills 1, Tot. Refills 1, Maintenance, 01/12/21 8:43:00 EDT, Route to Pharmacy Electronically, [facility]/pharmacy #[id number], Partial fill upon patient request if t... [...] Venous (Peripheral) Insuffic iency, Unspecified(Confirmed) Active 1initial [place]: 17 on 08/09/14 2initial Oswestry Disability Index: 57% ( severe disability ) on 08/09/14; initial Neck Disability Index: 40% on 08/16/14 3SOAPP-R: 19 ON 08/09/14 4On 05/31/2013 underwent left total knee arthroplasty with computer navigation for osteoarthritis, left knee by Luis Higgins M.D. at [facility]. 5On 09/24/2008 underwent 1. Open decompression right shoulder (acromioplasty, release of coracoacromial ligament). 2. Distal clavicle excision. 3. Repair of massive markedly retracted posterosuperior cuff tear. 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 at [facility]. 6Polysomnogram performed on 08/17/2014 at [facility] revealed 1. Obstructive sleep apnea, moderate 2. Hypoventilation with sleep 7Surgical History Procedure/Surgical Profile 3 level Posterior fusion (80691) in 2013 at 58 Years. Spinal decompression (85268) in 2008 at 53 Years. Laminectomy with exploration and/or decompression of spinal cord and/or cauda equina, without facetectomy, foraminotomy or discectomy (eg, spinal stenosis), 1 or 2 vertebral segments; lumbar, except for spondylolisthesis (79014) in 1996 at 41 Years. SCS trial at [facility] complicated by early lead migration. Never had adequate trial. 8Surgical History Procedure/Surgical Profile 3 level Posterior fusion (72338) in 2013 at 58 Years. Spinal decompression (76394) in 2008 at 53 Years. Laminectomy with exploration and/or decompression of spinal cord and/or cauda equina, without facetectomy, foraminotomy or discectomy (eg, spinal stenosis), 1 or 2 vertebral segments; lumbar, except for spondylolisthesis (23489) in 1996 at 41 Years. SCS trial at [facility] complicated by early lead migration. Never had adequate trial. Social History Social History Type Response Smoking Status Former smoker, quit more than 30 days ago entered on: 12/01/18 Sex
--- OUTSIDE RECORDS SUMMARY | 2024-01-05 10:23 | XMS_ITS | Continuity of Care Document ---
Author Organization [facility] Address [address] [place] [address]- Care Team Providers Care Certification Engineer Name Role Phone Solis Roman MD Primary Care Physician [phone] [facility]counter [facility] Date(s): 07/27/22 - 08/26/22 [facility] [address] [place], [place] [address] Allergies, Adverse Reactions, Alerts No Known Allergies Immunizations Given and Recorded Vaccine Date Status Refusal Reason SARS-CoV-2 mRNA ([id number]) vax 04/08/22 Recorded influenza virus vaccine, inactivated [...] tetanus/diphtheria/pertussis, acel(Tdap) 4 12/23/16 Given 1Result Comment: [id number] 2Result Comment: [03/09/2018] [id number] 3Result Comment: [id number] 4Result Comment: [12/23/2016] given without incident.....vs Medications [...] Maintenance,controlled substance agreement signed 08/30/14; preferred pharm:[facility]. dx: failed back sydrome, 08/30/14 10:48:33, Compound Start Date: 08/30/14 Status: Ordered doxepin 150 mg oral capsule 1 capsule, By Mouth, Daily at bedtime, # 90 capsule, 3 Refills, 08/23/22 11:39:00 EST, [facility]/pharmacy#[id number], 160, cm, 08/31/21 15:19:00 EDT, Height Start Date: 08/23/22 Status: Ordered duloxetine 60 mg oral enteric coated capsule 1 capsule, By Mouth, Daily, [employer] 07/2023, # 90 capsule, 3 Refills, 07/27/22 15:27:00 EST, [facility]/pharmacy #[id number], 160, cm, 08/31/21 15:19:00 EDT, Height Start Date: 07/27/22 Status: Ordered gabapentin 800 mg oral tablet 1 tablet = 800 mg, By Mouth, 3 times a day, # 90 tablet, 11 Refills, Maintenance, 10/05/21 12:46:00EDT, Tablet, [facility]/pharmacy #[id number], Partial fill upon patient request if the prescription is for a schedule II opioid drug., 160, cm, 08/31/21 15:19:00 ED... Start Date: 10/05/21 Status: Ordered hydrALAZINE 25 mg oral tablet 25 mg, 1, tablet, By Mouth, 2 times a day, # 60 tablet, Refills 11, Tot. Refills 11, Maintenance, 08/13/22 9:21:00 EST, Route to Pharmacy Electronically, [facility]/pharmacy #[id number], Partial fill upon patientrequest if the prescription is for a schedule II op... Start Date: 08/13/22 Status: Ordered hydrochlorothiazide-triamterene 25 mg-37.5 mg oral capsule 1 capsule, By Mouth, Daily, # 90 capsule, 1 Refills, Maintenance, 05/27/22 11:51:00 EST, [facility] STORE [id number], 90, TAKE 1 CAPSULE BY MOUTH EVERY [...] tablet, 3 Refills, Maintenance, 06/18/21 14:42:00 EST, [facility]/pharmacy#[id number], 160, cm, 06/18/21 14:17:00 EST, Height, 86.5, kg, 05/07/20 6:28:00 EST, Dry Weight Start Date: 06/18/21 Status: Ordered tiZANidine 2 mg oral tablet 4 mg, 2, tablet, By Mouth, Daily at bedtime, # 180 tablet, Refills 3, Tot. Refills 3, Maintenance, 01/19/22 11:02:00 EDT, Route to Pharmacy Electronically, [facility]/pharmacy #[id number], 160, cm, 08/31/21 15:19:00 EDT, Height, 86.5, kg, 05/07/20 6:28:00 EST, Dry... Start Date: 01/19/22 Stop Date: 01/14/23 Status: Ordered traZODone 50 mg oral tablet See Instructions, TAKE 1 TABLET BY MOUTH EVERYDAY AT BEDTIME, # 90 tablet, Refills 1, Tot. Refills 1, Maintenance, 07/27/22 12:16:00 EST, Instructions Replace Required Details, Route to Pharmacy Electronically, [facility]/pharmacy #[id number], 160, cm, 08/31/21 15... Start Date: 07/27/22 Status: Ordered valsartan 320 mg oral tablet 1 tablet, By Mouth, Daily, # 90 tablet, 1 Refills, Maintenance, 05/27/22 11:53:00 EST, [id number], 160, cm, 08/31/21 15:19:00 EDT, Height Start [...] Venous (Peripheral) Insufficiency, Unspecified Confirmed Active 1initial [place]: 17 on 08/09/14 2initial Oswestry Disability Index: 57% ( severe disability ) on 08/09/14; initial Neck Disability Index: 40% on 08/16/14 3SOAPP-R: 19 ON 08/09/14 4On 05/31/2013 underwent left total knee arthroplasty with computer navigation for osteoarthritis, left knee by Luis Higgins M.D. at [facility]. 5On 09/24/2008 underwent 1. Open decompression right shoulder (acromioplasty, release of coracoacromial ligament). 2. Distal clavicle excision. 3. Repair of massive markedly retracted posterosuperior cuff tear. 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 at [facility]. 6Polysomnogram performed on 08/17/2014 at [facility] revealed 1. Obstructive sleep apnea, moderate 2. Hypoventilation with sleep 7Surgical History Procedure/Surgical Profile 3 level Posterior fusion (79213) in 2013 at 58 Years. Spinal decompression (18887) in 2008 at 53 Years. Laminectomy with exploration and/or decompression of spinal cord and/or cauda equina, without facetectomy, foraminotomy or discectomy (eg, spinal stenosis), 1 or 2 vertebral segments; lumbar, except for spondylolisthesis (42866) in 1996 at 41 Years. SCS trial at [facility] complicated by early lead migration. Never had adequate trial. 8Surgical History Procedure/Surgical Profile 3 level Posterior fusion (66014) in 2013 at 58 Years. Spinal decompression (21502) in 2008 at 53 Years. Laminectomy with exploration and/or decompression of spinal cord and/or cauda equina, without facetectomy, foraminotomy or discectomy (eg, spinal stenosis), 1 or 2 vertebral segments; lumbar, except for spondylolisthesis (88000) in 1997 at 41 Years. SCS trial at [facility] complicated by early lead migration. Never had adequate trial. Social History Social History Type Response Smoking Status Former smoker, quit more than 30 days ago entered on: 12/01/18 Sex Patient Care team information Care Team Personnel Name: Luis Combs RN Position: S RN Member Role: Primary Care Nurse Name: Solis Roman MD Position: [facility] Primary Care Physician Member Role: PCP Address: Address: [address] [place] [address] Adult & Pediatric [place], [place] [address] Name: Loni Ervin RN Position: [facility] RN Member Role: Primary Care Nurse Name: Tk Mendoza RN Position: [facility] RN Member Role: Primary Care Nurse Care Team Related Persons Name: RANDY CAPUTO Address: [place] [address] Name: ERIN CHATTERJEE Address: home [address] [place] [address] Name: CRISTA WEST Address: home [address] [place] [id number]
--- OUTSIDE RECORDS SUMMARY | 2024-01-05 10:23 | XMS_ITS | Continuity of Care Document ---
Author Organization [facility] ter Address [address] [place] [address]- Care Team Providers Care Purchasing Intern Name Role Phone Abel OTERO, Solis Li Primary Care Physician [place] [facility] [place] - 10/05/[address] [address]- [facility] Attending Physician: Luis Higgins MD Admitting [...] tetanus/diphtheria/pertussis, acel(Tdap) 3 12/23/16 Given 1Result Comment: [id number] 2Result Comment: [03/09/2018] [id number] 3Result Comment: [12/23/2016] given without incident.....vs Medications [...] substance agreement signed 08/30/14; preferred pharm:[facility]. dx: failed back sydrome, [...] 06/25/19 13:39:00 EST, Route to Pharmacy Electronically, [facility]/pharmacy #[id number], this is an increase, 159, cm, 06/25/19 [...] Venous (Peripheral) Insuffic iency, Unspecified(Confirmed) Active 1initial [place]: 17 on 08/09/14 2initial Oswestry Disability Index: 57% ( severe disability ) on 08/09/14; initial Neck Disability Index: 40% on 08/16/14 3SOAPP-R: 19 ON 08/09/14 4On 05/31/2013 underwent left total knee arthroplasty with computer navigation for osteoarthritis, left knee by Luis Higgins M.D. at [facility]. 5On 09/24/2008 underwent 1. Open decompression right shoulder (acromioplasty, release of coracoacromial ligament). 2. Distal clavicle excision. 3. Repair of massive markedly retracted posterosuperior cuff tear. 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 at [facility]. 6Polysomnogram performed on 08/17/2014 at [facility] revealed 1. Obstructive sleep apnea, moderate 2. Hypoventilation with sleep 7Surgical History Procedure/Surgical Profile 3 level Posterior fusion (75027) in 2013 at 58 Years. Spinal decompression (99810) in 2008 at 53 Years. Laminectomy with exploration and/or decompression of spinal cord and/or cauda equina, without facetectomy, foraminotomy or discectomy (eg, spinal stenosis), 1 or 2 vertebral segments; lumbar, except for spondylolisthesis (44543) in 1996 at 41 Years. SCS trial at [facility] complicated by early lead migration. Never had adequate trial. 8Surgical History Procedure/Surgical Profile 3 level Posterior fusion (18528) in 2013 at 58 Years. Spinal decompression (36527) in 2008 at 53 Years. Laminectomy with exploration and/or decompression of spinal cord and/or cauda equina, without facetectomy, foraminotomy or discectomy (eg, spinal stenosis), 1 or 2 vertebral segments; lumbar, except for spondylolisthesis (08300) in 1996 at 41 Years. SCS trial at [facility] complicated by early lead migration. Never had adequate trial. Social History Social History Type Response Smoking Status Former smoker, quit more than 30 days ago entered on: 12/01/18 Sex
--- OUTSIDE RECORDS SUMMARY | 2024-01-05 10:23 | XMS_ITS | Continuity of Care Document ---
Author Organization [facility] ter Address [address] [place] [address]- Care Team Providers Care Sales Agent Name Role Phone Abel OTERO, Solis Li Primary Care Physician Encounter [facility] [place] Date(s): 06/27/19 - 08/20/[address] [address]- [facility] Attending Physician: Maria Victoria Huggins NP Admitting Physician: Maria Victoria Huggins NP Referring Physician: Maria Victoria Huggins NP Allergies, Adverse Reactions, Alerts No Known Medication Allergies Substance Reaction Severity Status NKA Active Immunizations Given and Recorded Vaccine Date Status Refusal Reason influenza virus vaccine, inactivated 1 05/03/19 Gi serafin influenza virus vaccine, inactivated 2 03/09/18 Gi serafin influenza virus vaccine, inactivated 03/10/16 Josué rded pneumococcal 13-valent vaccine 03/09/18 Given tetanus/diphtheria/pertussis, acel(Tdap) 3 12/23/16 Given 1Result Comment: [id number] 2Result Comment: [03/09/2018] [id number] 3Result Comment: [12/23/2016] given without incident.....vs Medications [...] 0, Maintenance,controlled substance agreement signed 08/30/14; preferred pharm:[facility]. dx: failed back sydrome, 08/30/14 10:48:33, Compound [...] 06/25/19 13:39:00 EST, Route to Pharmacy Electronically, [facility]/pharmacy #[id number], this is an increase, 159, cm, 06/25/19 [...] Venous (Peripheral) Insuffic iency, Unspecified(Confirmed) Active 1initial [place]: 17 on 08/09/14 2initial Oswestry Disability Index: 57% ( severe disability ) on 08/09/14; initial Neck Disability Index: 40% on 08/16/14 3SOAPP-R: 19 ON 08/09/14 4On 05/31/2013 underwent left total knee arthroplasty with computer navigation for osteoarthritis, left knee by Luis Higgins M.D. at [facility]. 5On 09/24/2008 underwent 1. Open decompression right shoulder (acromioplasty, release of coracoacromial ligament). 2. Distal clavicle excision. 3. Repair of massive markedly retracted posterosuperior cuff tear. 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 at [facility]. 6Polysomnogram performed on 08/17/2014 at [facility] revealed 1. Obstructive sleep apnea, moderate 2. Hypoventilation with sleep 7Surgical History Procedure/Surgical Profile 3 level Posterior fusion (09013) in 2013 at 58 Years. Spinal decompression (26948) in 2008 at 53 Years. Laminectomy with exploration and/or decompression of spinal cord and/or cauda equina, without facetectomy, foraminotomy or discectomy (eg, spinal stenosis), 1 or 2 vertebral segments; lumbar, except for spondylolisthesis (22633) in 1996 at 41 Years. SCS trial at [facility] complicated by early lead migration. Never had adequate trial. 8Surgical History Procedure/Surgical Profile 3 level Posterior fusion (23726) in 2013 at 58 Years. Spinal decompression (63156) in 2008 at 53 Years. Laminectomy with exploration and/or decompression of spinal cord and/or cauda equina, without facetectomy, foraminotomy or discectomy (eg, spinal stenosis), 1 or 2 vertebral segments; lumbar, except for spondylolisthesis (19117) in 1996 at 41 Years. SCS trial at [facility] complicated by early lead migration. Never had adequate trial. Social History Social History Type Response Smoking Status Former smoker, quit more than 30 days ago entered on: 12/01/18 Sex
--- OUTSIDE RECORDS SUMMARY | 2024-01-05 10:23 | XMS_ITS | Continuity of Care Document ---
Author Organization [facility] Address [address] [place] [address]- Care Team Providers Care Post Tensioning Ironworker Helper Name Role Phone Solis Roman MD Primary Care Physician [facility] Date(s): 03/04/20 - 04/03/20 [facility] [address] [place] [address]- [facility] Allergies, Adverse Reactions, Alerts No Known Medication Allergies Substance Reaction Severity Status NKA Active Immunizations Given and Recorded Vaccine Date Status Refusal Reason influenza virus vaccine, inactivated 1 05/03/19 Gi serafin influenza virus vaccine, inactivated 2 03/09/18 Gi serafin influenza virus vaccine, inactivated 03/10/16 Josué rded pneumococcal 13-valent vaccine 03/09/18 Given tetanus/diphtheria/pertussis, acel(Tdap) 3 12/23/16 Given 1Result Comment: [id number] 2Result Comment: [03/09/2018] [id number] 3Result Comment: [12/23/2016] given without incident.....vs Medications [...] 0, Maintenance,controlled substance agreement signed 08/30/14; preferred pharm:[facility]. dx: failed back sydrome, 08/30/14 10:48:33, Compound Start Date: 08/30/14 Status: Ordered doxepin 25 mg oral capsule 3 capsule = 75 mg, By Mouth, Daily at bedtime, for 30 days, # 90 capsule, 11 Refills, Hard Stop 02/26/21 13:13:00 EDT, 03/03/20 13:13:00 EDT, Capsule, [facility]/pharmacy #[id number], this is an increase, 159, cm, 08/20/19 13:42:00 EST, Height, 93.1, kg, ... Start Date: 03/03/20 Stop Date: 02/26/21 Status: Ordered duloxetine 60 mg oral enteric coated capsule 1 capsule = 60 mg, By Mouth, Daily, # 30 capsule, 11 Refills, Maintenance, 10/15/19 9:12:00 EDT, Capsule, [facility]/pharmacy #[id number], 159, cm, 08/20/19 13:42:00 EST, Height, 93.1, kg, 11/21/18 12:27:00 EDT, Dry Weight Start Date: 10/15/19 Status: Ordered gabapentin 800 mg oral tablet TAKE 1 TABLET BY MOUTH THREE TIMES A DAY Start Date: 01/14/20 Status: Ordered hydrochlorothiazide-triamterene 25 mg-37.5 mg oral capsule 1 capsule, By Mouth, Daily, # 90 capsule, 1 Refills, Maintenance, 02/27/20 9:26:00 EDT, Capsule, [facility]/pharmacy #[id number], 1 capsule By Mouth Daily,x90 days, [...] 06/25/19 13:39:00 EST, Route to Pharmacy Electronically, [facility]/pharmacy #[id number], this is an increase, 159, cm, [...] 10/15/19 9:13:00 EDT, Route to Pharmacy Electronically, [facility]/pharmacy #[id number], 159, cm, 08/20/19 13:42:00EST, Height, 93.1, [...] Maintenance, 01/13/2018:58:00 EDT, Route to Pharmacy Electronically, [facility]/pharmacy #[id number], 159, cm, 08/20/19 13:42:00 EST,Height, 93.1, [...] Venous (Peripheral) Insuffic iency, Unspecified(Confirmed) Active 1initial [place]: 17 on 08/09/14 2initial Oswestry Disability Index: [...] History Procedure/Surgical Profile 3 level Posterior fusion (53028) in 2013 at 58 Years. Spinal decompression (11961) in 2008 at 53 Years. Laminectomy with exploration and/or decompression of spinal cord and/or cauda equina, without facetectomy, foraminotomy or discectomy (eg, spinal stenosis), 1 or 2 vertebral segments; lumbar, except for spondylolisthesis (01975) in 1996 at 41 Years. SCS trial at [facility] complicated by early lead migration. Never had adequate trial. 8Surgical History Procedure/Surgical Profile 3 level Posterior fusion (40795) in 2013 at 58 Years. Spinal decompression (15848) in 2008 at 53 Years. Laminectomy with exploration and/or decompression of spinal cord and/or cauda equina, without facetectomy, foraminotomy or discectomy (eg, spinal stenosis), 1 or 2 vertebral segments; lumbar, except for spondylolisthesis (36609) in 1996 at 41 Years. SCS trial at [facility] complicated by early lead migration. Never had adequate trial. Social History Social History Type Response Smoking Status Former smoker, quit more than 30 days ago entered on: 12/01/18 Sex
--- OUTSIDE RECORDS SUMMARY | 2024-01-05 10:23 | XMS_ITS | Continuity of Care Document ---
Author Organization [facility] Address [address] [place] [address]- Care Team Providers Care Pinking Machine Operator Name Role Phone Solis Roman MD Primary Care Physician [phone] [facility]counter [facility] Date[facility]s): 03/21/23 - 04/20/23 [facility] [address] [place], [place] [address] Allergies, Adverse Reactions, Alerts No [...] vaccine, inactivated 03/10/16 Josué rded SARS-CoV-2 mRNA ([id number]) vax 04/08/22 Recorded zoster vaccine, inactivated 11/18/21 Recorded zoster vaccine, inactivated 06/23/20 Recorded SARS-CoV-2 (COVID-19) mRNA BNT-162b2 vac 04/19/21 Recorded SARS-CoV-2 (COVID-19) mRNA-1273 vaccine 09/19/20 G iven SARS-CoV-2 (COVID-19) mRNA-1273 vaccine 08/22/20 G iven pneumococcal 23-valent vaccine 4 04/25/20 Given Influenza Virus Vaccine (oldterm) 03/20/20 Recorde d pneumococcal 13-valent vaccine 03/09/18 Given tetanus/diphtheria/pertussis, acel(Tdap) 5 12/23/16 Given 1Result Comment[facility] 2Result Comment: [id number] 3Result Comment: [03/09/2018] [id number] 4Result Comment: [id number] 5Result Comment: [12/23/2016] given without incident.....vs Medications [...] 0, Maintenance,controlled substance agreement signed 08/30/14; preferred pharm:[facility]. dx: failed back sydrome, 08/30/14 10:48:33, [...] tablet, 11 Refills, Maintenance, 11/05/22 13:00:00EDT, Tablet, [facility]/pharmacy #[id number], Partial fill upon patient request if the prescription is for a schedule II opioid drug., 160, cm, 08/31/21 15:19:00 ED... Start Date: 11/05/22 Status: Ordered hydrALAZINE 25 mg oral tablet 25 mg, 1, tablet, By Mouth, 2 times a day, # 60 tablet, Refills 11, Tot. Refills 11, Maintenance, 08/13/22 9:21:00 EST, Route to Pharmacy Electronically, [facility]/pharmacy #[id number], Partial fill upon patientrequest if the prescription is for a schedule II op... Start Date: 08/13/22 Status: Ordered hydrochlorothiazide-triamterene 25 mg-37.5 mg oral capsule 1 capsule, By Mouth, Daily, # 90 capsule, 1 Refills, Maintenance, 02/02/23 9:30:00 EDT, [facility]/pharmacy #[id number], 90, 1 capsule [...] 03/15/23 12:53:00 EDT, Route to Pharmacy Electronically, [facility]/pharmacy #[id number], 160, cm, 08/31/21 15:19:00 EDT, Height Start Date: 03/15/23 Stop Date: 03/09/24 Status: Ordered traZODone 50 mg oral tablet See Instructions, TAKE 1 TABLET BY MOUTH EVERYDAY AT BEDTIME, # 90 tablet, Refills 0, Tot. Refills 0, Maintenance, 02/07/23 10:55:00 EDT, Instructions Replace Required Details, Route to Pharmacy Electronically, [facility]/pharmacy #[id number], 160, cm, 08/31/21 15... Start Date: 02/07/23 Status: Ordered valsartan 320 mg oral tablet 1 tablet, By Mouth, Daily, # 90 tablet, 1 Refills, Maintenance, 01/03/23 11:13:00 EDT, [facility]/pharmacy#[id number], 160, cm, 08/31/21 [...] Confirmed Active Lumbar spinal stenosis L2-3 Confirmed 4/20/18 Active Status post arthroscopy of shoulder Confirmed Active Vaginal pain Confirmed Active Venous (Peripheral) Insufficiency, Unspecified Confirmed Active 1initial [place]: 17 on 08/09/14 2initial Oswestry Disability Index: 57% ( severe disability ) on 08/09/14; initial Neck Disability Index: 40% on 08/16/14 3SOAPP-R: 19 ON 08/09/14 4On 05/31/2013 underwent left total knee arthroplasty with computer navigation for osteoarthritis, left knee by Luis Higgins M.D. at [facility]. 5On 09/24/2008 underwent 1. Open decompression right shoulder (acromioplasty, release of coracoacromial ligament). 2. Distal clavicle excision. 3. Repair of massive markedly retracted posterosuperior cuff tear. 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 at [facility]. 6Polysomnogram performed on 08/17/2014 at [facility] revealed 1. Obstructive sleep apnea, moderate 2. Hypoventilation with sleep 7Surgical History Procedure/Surgical Profile 3 level Posterior fusion (26856) in 2013 at 58 Years. Spinal decompression (36492) in 2008 at 53 Years. Laminectomy with exploration and/or decompression of spinal cord and/or cauda equina, without facetectomy, foraminotomy or discectomy (eg, spinal stenosis), 1 or 2 vertebral segments; lumbar, except for spondylolisthesis (89245) in 1996 at 41 Years. SCS trial at [facility] complicated by early lead migration. Never had adequate trial. 8Surgical History Procedure/Surgical Profile 3 level Posterior fusion (69943) in 2013 at 58 Years. Spinal decompression (17889) in 2008 at 53 Years. Laminectomy with exploration and/or decompression of spinal cord and/or cauda equina, without facetectomy, foraminotomy or discectomy (eg, spinal stenosis), 1 or 2 vertebral segments; lumbar, except for spondylolisthesis (42179) in 1996 at 41 Years. SCS trial at [facility] complicated by early lead migration. Never had adequate trial. Social History Social History Type Response Smoking Status Former smoker, quit more than 30 days ago entered on: 12/01/18 Sex Patient Care team information Care Team Personnel Name: Luis Combs RN Position: [facility] RN Member Role: Primary Care Nurse Name: Solis Roman MD Position: [facility] Physician - Primary Care Member Role: PCP Address: Address: [address] [place] [address] Adult [place] [address]- Name: Aziza ZENDEJAS, Loni Martinez Position: [facility] RN Member Role: Primary Care Nurse Name: Tk Mendoza RN Position: [facility] RN Member Role: Primary Care Nurse Care Team Related Persons Name: RANDY CAPUTO Address: [place] [address] Name: ERIN CHATTERJEE Address: home [address] [place] [address] Name: CRISTA WEST Address: home [address] [place] [id number]
--- OUTSIDE RECORDS SUMMARY | 2024-01-05 10:23 | XMS_ITS | Continuity of Care Document ---
Author Organization [facility] Address [address] [place] [address]- Care Team Providers Care Artist Model Name Role Phone Abel OTERO, Solis Li Primary Care Physician Encounter [facility] Date(s): 03/10/21 - 04/09/21 [facility] [address] [place] [address]- Allergies, Adverse Reactions, Alerts No Known Medication [...] tetanus/diphtheria/pertussis, acel(Tdap) 4 12/23/16 Given 1Result Comment: [id number] 2Result Comment: [id number] 3Result Comment: [03/09/2018] [id number] 4Result Comment: [12/23/2016] given without incident.....vs Medications [...] 0, Maintenance,controlled substance agreement signed 08/30/14; preferred pharm:[facility] Alanna Wilson. dx: failed back sydrome, 08/30/14 10:48:33, Compound Start Date: 08/30/14 Status: Ordered doxepin 150 mg oral capsule 1 capsule = 150 mg, By Mouth, Daily at bedtime, # 90 capsule, 3 Refills, Maintenance, 06/06/20 10:17:00 EST, Capsule, [facility]/pharmacy #[id number], do not fill until pt calls, 160, cm, 05/09/20 16:02:00 EST, Height, 86.5, kg, 05/07/20 6:28:00 EST, Dry Weight Start Date: 06/06/20 Status: Ordered duloxetine 60 mg oral enteric coated capsule 1 capsule = 60 mg, By Mouth, Daily, # 30 capsule, 11 Refills, Maintenance, 11/10/20 14:38:00 EDT, Capsule, [facility]/pharmacy #[id number], 160, cm, 05/09/20 16:02:00 EST, Height, 86.5, kg, 05/07/20 6:28:00 EST, Dry Weight Start Date: 11/10/20 Status: Ordered gabapentin 800 mg oral tablet 1 tablet = 800 mg, By Mouth, 3 times a day, # 90 tablet, 11 Refills, Maintenance, 06/06/20 10:19:00EST, Tablet, [facility]/pharmacy #[id number], Partial fill upon patient request if the prescription is for a schedule II opioid drug., 160, cm, 05/09/20 16:02:00 ES... Start Date: 06/06/20 Status: Ordered hydrochlorothiazide 12.5 mg oral tablet 1 tablet = 12.5 mg, By Mouth, Daily, D/C HCTZ/ Triamterene, # 30 tablet, 11 Refills, Maintenance, 04/27/20 11:12:00 EST, Tablet, [facility]/pharmacy #[id number], d/c DYAZIDE, 159, cm, 04/25/20 11:27:00 [...] tablet, 1 Refills, Maintenance, 01/13/21 8:57:00 EDT, [id number], 160, cm, 05/09/20 16:02:00 EST, Height, 86.5, [...] 09/11/20 10:05:00 EDT, Route to Pharmacy Electronically, [id number], 160, cm, 05/09/20 16:02:00 EST, Height, 86.5, kg, 05/07/20 6:28:00 EST, Dry Weight Start Date: 09/11/20 Status: Ordered traZODone 50 mg oral tablet See Instructions, TAKE 1 TABLET BY MOUTH EVERYDAY AT BEDTIME, # 90 tablet, Refills 3, Tot. Refills 3, Maintenance, Instructions Replace Required Details, Route to Pharmacy Electronically, [id number], 160, cm, 05/09/20 16:02:00 EST, Height, 86.5,... Start Date: 08/13/20 Status: Ordered valsartan 160 mg oral tablet 160 mg, 1, tablet, By Mouth, Daily, Duplicate from 06/06/20 remaining refills sent, # 90 tablet, Refills 1, Tot. Refills 1, Maintenance, 01/12/21 8:43:00 EDT, Route to Pharmacy Electronically, [facility]/pharmacy #[id number], Partial fill upon patient request if [...] Venous (Peripheral) Insuffic iency, Unspecified(Confirmed) Active 1initial [place]: 17 on 08/09/14 2initial Oswestry Disability Index: 57% ( severe disability ) on 08/09/14; initial Neck Disability Index: 40% on 08/16/14 3SOAPP-R: 19 ON 08/09/14 4On 05/31/2013 underwent left total knee arthroplasty with computer navigation for osteoarthritis, left knee by Luis Higgins M.D. at [facility]. 5On 09/24/2008 underwent 1. Open decompression right shoulder (acromioplasty, release of coracoacromial ligament). 2. Distal clavicle excision. 3. Repair of massive markedly retracted posterosuperior cuff tear. 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 at [facility]. 6Polysomnogram performed on 08/17/2014 at [facility] revealed 1. Obstructive sleep apnea, moderate 2. Hypoventilation with sleep 7Surgical History Procedure/Surgical Profile 3 level Posterior fusion (77014) in 2013 at 58 Years. Spinal decompression (62496) in 2008 at 53 Years. Laminectomy with exploration and/or decompression of spinal cord and/or cauda equina, without facetectomy, foraminotomy or discectomy (eg, spinal stenosis), 1 or 2 vertebral segments; lumbar, except for spondylolisthesis (38703) in 1996 at 41 Years. SCS trial at [facility] complicated by early lead migration. Never had adequate trial. 8Surgical History Procedure/Surgical Profile 3 level Posterior fusion (83807) in 2013 at 58 Years. Spinal decompression (94262) in 2008 at 53 Years. Laminectomy with exploration and/or decompression of spinal cord and/or cauda equina, without facetectomy, foraminotomy or discectomy (eg, spinal stenosis), 1 or 2 vertebral segments; lumbar, except for spondylolisthesis (35234) in 1996 at 41 Years. SCS trial at [facility] complicated by early lead migration. Never had adequate trial. Social History Social History Type Response Smoking Status Former smoker, quit more than 30 days ago entered on: 12/01/18 Sex
--- OUTSIDE RECORDS SUMMARY | 2024-01-05 10:23 | XMS_ITS | Continuity of Care Document ---
Author Organization [facility] Address [address] [place] [address]- Care Team Providers Care Micro Photographer Name Role Phone Solis Roman MD Primary Care Physician [phone] Encounter [facility] Date(s): 08/26/23 - 10/28/23 [facility] [address] [place], [place] [address] Attending Physician: Solis Roman MD Allergies, Adverse Reactions, Alerts No Known Allergies Immunizations Given and Recorded Vaccine Date Status Refusal Reason SARS-CoV-2(COVID-19)mRNA-LNP vac([id number]) 04/11/23 Recorded influenza virus vaccine, inactivated 1 03/16/23 Re corded influenza virus vaccine, inactivated 04/08/22 Josué rded influenza virus vaccine, inactivated 04/19/21 Josué rded influenza virus vaccine, inactivated 2 05/03/19 Gi serafin influenza virus vaccine, inactivated 3 03/09/18 Gi serafin influenza virus vaccine, inactivated 03/10/16 Josué rded SARS-CoV-2 mRNA ([id number]) vax 04/08/22 Recorded zoster vaccine, inactivated 11/18/21 Recorded zoster vaccine, inactivated 06/23/20 Recorded SARS-CoV-2 (COVID-19) mRNA BNT-162b2 vac 04/19/21 Recorded SARS-CoV-2 (COVID-19) mRNA-1273 vaccine 09/19/20 G iven SARS-CoV-2 (COVID-19) mRNA-1273 vaccine 08/22/20 G iven pneumococcal 23-valent vaccine 4 04/25/20 Given Influenza Virus Vaccine (oldterm) 03/20/20 Recorde d pneumococcal 13-valent vaccine 03/09/18 Given tetanus/diphtheria/pertussis, acel(Tdap) 5 12/23/16 Given 1Result Comment: AMELIA 2Result Comment: [id number] 3Result Comment: [03/09/2018] [id number] 4Result Comment: [id number] 5Result Comment: [12/23/2016] given without incident.....vs Medications [...] capsule, 2 Refills, Maintenance, 10/06/23 8:33:00 EDT, [facility]/pharmacy #[id number], Partial fill upon patient request if the prescription is for a scheduleII opioid drug., 157, cm, 10/06/23 8:12:00 EDT, Hei... Start Date: 10/06/23 Status: Ordered duloxetine 60 mg oral enteric coated capsule 1 capsule, By Mouth, Daily, [employer] 07/2023, # 90 capsule, 3 Refills, 07/26/23 10:44:00 EST, [facility]/pharmacy #2339, 157, cm, 07/26/23 10:22:00 EST, Height, 86, kg, 05/10/23 11:11:00 EST, Dry Weight Start Date: 07/26/23 Status: Ordered fluticasone 50 mcg/inh nasal spray 2 sprays = 100 mcg, Nares, Both, Daily in AM, # 16 Gm, 0 Refills, Maintenance, 08/26/23 8:53:00 EST, Boss, Partial fill upon patient request if the [...] 3 Refills, Maintenance, 07/26/23 10:42:00 EST, Tablet, [facility]/pharmacy #2339, Partial fill upon [...] 05/02/23 21:24:00 EST, Route to Pharmacy Electronically, [facility], 160, cm, 04/22/23 9:05:00 EDT, Height Start Date: 05/02/23 Status: Ordered valsartan 320 mg oral tablet See Instructions, TAKE 1 TABLET BY MOUTH EVERY DAY, # 90 tablet, 3 Refills, Maintenance, 09/26/23 23:22:00 EDT, [facility]/pharmacy #2339, 157, cm, 08/26/23 8:33:00 EST, [...] Venous (Peripheral) Insufficiency, Unspecified Confirmed Active 1initial [place]: 17 on 08/09/14 2initial Oswestry Disability Index: 57% ( severe disability ) on 08/09/14; initial Neck Disability Index: 40% on 08/16/14 3SOAPP-R: 19 ON 08/09/14 4On 05/31/2013 underwent left total knee arthroplasty with computer navigation for osteoarthritis, left knee by Luis Higgins M.D. at [facility]. 5On 09/24/2008 underwent 1. Open decompression right shoulder (acromioplasty, release of coracoacromial ligament). 2. Distal clavicle excision. 3. Repair of massive markedly retracted posterosuperior cuff tear. 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 at [facility]. 6Polysomnogram performed on 08/17/2014 at [facility] revealed 1. Obstructive sleep apnea, moderate 2. Hypoventilation with sleep 7Surgical History Procedure/Surgical Profile 3 level Posterior fusion (54822) in 2013 at 58 Years. Spinal decompression (74962) in 2008 at 53 Years. Laminectomy with exploration and/or decompression of spinal cord and/or cauda equina, without facetectomy, foraminotomy or discectomy (eg, spinal stenosis), 1 or 2 vertebral segments; lumbar, except for spondylolisthesis (60677) in 1996 at 41 Years. SCS trial at [facility] complicated by early lead migration. Never had adequate trial. 8Surgical History Procedure/Surgical Profile 3 level Posterior fusion (60880) in 2014 at 58 Years. Spinal decompression (26848) in 2008 at 53 Years. Laminectomy with exploration and/or decompression of spinal cord and/or cauda equina, without facetectomy, foraminotomy or discectomy (eg, spinal stenosis), 1 or 2 vertebral segments; lumbar, except for spondylolisthesis (74767) in 1996 at 41 Years. SCS trial at [facility] complicated by early lead migration. Never had adequate trial. Social History Social History Type Response Smoking Status Former smoker, quit more than 30 days ago entered on: 12/01/18 Sex Patient Care team information Care Team Personnel Name: Luis Combs RN Position: [facility] RN Member Role: Primary Care Nurse Name: Solis Roman MD Position: [facility] Physician - Primary Care Member Role: PCP Address: Address: [address] [place] [address] Adult & Pediatric [place], [place] [address] Name: Iris Al RN Position: [facility] RN Member Role: Primary Care Nurse Name: Stacie Guardado RN Position: [facility] RN Member Role: Primary Care Nurse Name: Tk Mendoza RN Position: [facility] RN Member Role: Primary Care Nurse Care Team Related Persons Name: RANDY CAPUTO Address: [place] [address] Name: ERIN CHATTERJEE Address: [address] [place] [address] Name: CRISTA WEST Address: home [address] [place] [id number]
--- OUTSIDE RECORDS SUMMARY | 2024-01-05 10:23 | XMS_ITS | Continuity of Care Document ---
Author Organization [facility] Address [address] [place] [address]- Care Team Providers Care Practice Specialist Name Role Phone Abel OTERO, Solis Li Primary Care Physician Encounter [facility] Date(s): 08/30/19 - 10/31/19 [facility] [address] [place] [address]- [facility] Attending Physician: Tawanna CADENA, Laura Lowe Admitting Physician: Tawanna CADENA, Laura Lowe Referring Physician: Gisela OTERO, Luis Goodwin Allergies, Adverse Reactions, Alerts No Known Medication Allergies Substance Reaction Severity Status NKA Active Immunizations Given and Recorded Vaccine Date Status Refusal Reason influenza virus vaccine, inactivated 1 05/03/19 Gi serafin influenza virus vaccine, inactivated 2 03/09/18 Gi serafin influenza virus vaccine, inactivated 03/10/16 Josué rded pneumococcal 13-valent vaccine 03/09/18 Given tetanus/diphtheria/pertussis, acel(Tdap) 3 12/23/16 Given 1Result Comment: [id number] 2Result Comment: [03/09/2018] [id number] 3Result Comment: [12/23/2016] given without incident.....vs Medications [...] 0, Maintenance,controlled substance agreement signed 08/30/14; preferred pharm:[facility] Alanna Wilson. dx: failed back sydrome, [...] 11 Refills, Maintenance, 10/15/19 9:12:00 EDT, Capsule, [facility]/pharmacy #[id number], 159, cm, 08/20/19 13:42:00 EST, [...] 06/25/19 13:39:00 EST, Route to Pharmacy Electronically, [facility]/pharmacy #[id number], this is an increase, 159, [...] 10/15/19 9:13:00 EDT, Route to Pharmacy Electronically, [facility]/pharmacy #[id number], 159, cm, 08/20/19 13:42:00EST, Height, [...] Venous (Peripheral) Insuffic iency, Unspecified(Confirmed) Active 1initial [place]: 17 on 08/09/14 2initial Oswestry Disability Index: 57% ( severe disability ) on 08/09/14; initial Neck Disability Index: 40% on 08/16/14 3SOAPP-R: 19 ON 08/09/14 4On 05/31/2013 underwent left total knee arthroplasty with computer navigation for osteoarthritis, left knee by Luis Higgins M.D. at [facility]. 5On 09/24/2008 underwent 1. Open decompression right shoulder (acromioplasty, release of coracoacromial ligament). 2. Distal clavicle excision. 3. Repair of massive markedly retracted posterosuperior cuff tear. 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 at [facility]. 6Polysomnogram performed on 08/17/2014 at [facility] revealed 1. Obstructive sleep apnea, moderate 2. Hypoventilation with sleep 7Surgical History Procedure/Surgical Profile 3 level Posterior fusion (28458) in 2013 at 58 Years. Spinal decompression (68552) in 2008 at 53 Years. Laminectomy with exploration and/or decompression of spinal cord and/or cauda equina, without facetectomy, foraminotomy or discectomy (eg, spinal stenosis), 1 or 2 vertebral segments; lumbar, except for spondylolisthesis (01765) in 1996 at 41 Years. SCS trial at [facility] complicated by early lead migration. Never had adequate trial. 8Surgical History Procedure/Surgical Profile 3 level Posterior fusion (43588) in 2013 at 58 Years. Spinal decompression (76841) in 2008 at 53 Years. Laminectomy with exploration and/or decompression of spinal cord and/or cauda equina, without facetectomy, foraminotomy or discectomy (eg, spinal stenosis), 1 or 2 vertebral segments; lumbar, except for spondylolisthesis (41651) in 1996 at 41 Years. SCS trial at [facility] complicated by early lead migration. Never had adequate trial. Social History Social History Type Response Smoking Status Former smoker, quit more than 30 days ago entered on: 12/01/18 Sex
--- OUTSIDE RECORDS SUMMARY | 2024-01-05 10:23 | XMS_ITS | Continuity of Care Document ---
Author Organization [facility] ter Address [address] [place] [address]- Care Team Providers Care Cnc Router Operator Name Role Phone Abel OTERO, Solis Li Primary Care Physician [phone] Encounter [facility] Date(s): 10/17/19 - 11/22/[address] [address]- [facility] Attending Physician: Luis Higgins MD [...] tetanus/diphtheria/pertussis, acel(Tdap) 3 12/23/16 Given 1Result Comment: [id number] 2Result Comment: [03/09/2018] [id number] 3Result Comment: [12/23/2016] given without incident.....vs Medications [...] 0, Maintenance,controlled substance agreement signed 08/30/14; preferred pharm:[facility] Alanna Wilson. dx: failed back sydrome, 08/30/14 [...] 11 Refills, Maintenance, 10/15/19 9:12:00 EDT, Capsule, [facility]/pharmacy #[id number], 159, cm, 08/20/19 13:42:00 EST, [...] 06/25/19 13:39:00 EST, Route to Pharmacy Electronically, [facility]/pharmacy #[id number], this is an increase, 159, [...] 10/15/19 9:13:00 EDT, Route to Pharmacy Electronically, [facility]/pharmacy #[id number], 159, cm, 08/20/19 13:42:00EST, Height, [...] Venous (Peripheral) Insuffic iency, Unspecified(Confirmed) Active 1initial [place]: 17 on 08/09/14 2initial Oswestry Disability Index: 57% ( severe disability ) on 08/09/14; initial Neck Disability Index: 40% on 08/16/14 3SOAPP-R: 19 ON 08/09/14 4On 05/31/2013 underwent left total knee arthroplasty with computer navigation for osteoarthritis, left knee by Luis Higgins M.D. at [facility]. 5On 09/24/2008 underwent 1. Open decompression right shoulder (acromioplasty, release of coracoacromial ligament). 2. Distal clavicle excision. 3. Repair of massive markedly retracted posterosuperior cuff tear. 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 at [facility]. 6Polysomnogram performed on 08/17/2014 at [facility] revealed 1. Obstructive sleep apnea, moderate 2. Hypoventilation with sleep 7Surgical History Procedure/Surgical Profile 3 level Posterior fusion (10632) in 2013 at 58 Years. Spinal decompression (78263) in 2008 at 53 Years. Laminectomy with exploration and/or decompression of spinal cord and/or cauda equina, without facetectomy, foraminotomy or discectomy (eg, spinal stenosis), 1 or 2 vertebral segments; lumbar, except for spondylolisthesis (01434) in 1996 at 41 Years. SCS trial at [facility] complicated by early lead migration. Never had adequate trial. 8Surgical History Procedure/Surgical Profile 3 level Posterior fusion (31482) in 2013 at 58 Years. Spinal decompression (65597) in 2008 at 53 Years. Laminectomy with exploration and/or decompression of spinal cord and/or cauda equina, without facetectomy, foraminotomy or discectomy (eg, spinal stenosis), 1 or 2 vertebral segments; lumbar, except for spondylolisthesis (55322) in 1996 at 41 Years. SCS trial at [facility] complicated by early lead migration. Never had adequate trial. Social History Social History Type Response Smoking Status Former smoker, quit more than 30 days ago entered on: 12/01/18 Sex
--- OUTSIDE RECORDS SUMMARY | 2024-01-05 10:23 | XMS_ITS | Continuity of Care Document ---
Author Organization [facility] Address [address] [place] [address]- Care Team Providers Care Senior Net Software Developer Name Role Phone Solis Roman MD Primary Care Physician Encounter [facility] Date(s): 02/02/20 - 03/03/20 [facility] [address] [place] [address]- [facility] Allergies, Adverse Reactions, Alerts No Known Medication Allergies Substance Reaction Severity Status NKA Active Immunizations Given and Recorded Vaccine Date Status Refusal Reason influenza virus vaccine, inactivated 1 05/03/19 Gi serafin influenza virus vaccine, inactivated 2 03/09/18 Gi serafin influenza virus vaccine, inactivated 03/10/16 Josué rded pneumococcal 13-valent vaccine 03/09/18 Given tetanus/diphtheria/pertussis, acel(Tdap) 3 12/23/16 Given 1Result Comment: [id number] 2Result Comment: [03/09/2018] [id number] 3Result Comment: [12/23/2016] given without incident.....vs Medications [...] 02/26/21 13:13:00 EDT, 03/03/20 13:13:00 EDT, Capsule, [facility]/pharmacy #2339, this is an increase, 159, cm, 08/20/19 13:42:00 EST, Height, 93.1, kg, ... Start Date: 03/03/20 Stop Date: 02/26/21 Status: Ordered duloxetine 60 mg oral enteric coated capsule 1 capsule = 60 mg, By Mouth, Daily, # 30 capsule, 11 Refills, Maintenance, 10/15/19 9:12:00 EDT, Capsule, [facility]/pharmacy #[id number], 159, cm, 08/20/19 13:42:00 EST, Height, 93.1, kg, 11/21/18 12:27:00 EDT, Dry Weight Start Date: 10/15/19 Status: Ordered gabapentin 800 mg oral tablet TAKE 1 TABLET BY MOUTH THREE TIMES A DAY Start Date: 01/14/20 Status: Ordered hydrochlorothiazide-triamterene 25 mg-37.5 mg oral capsule 1 capsule, By Mouth, Daily, # 90 capsule, 1 Refills, Maintenance, 02/27/20 9:26:00 EDT, Capsule, [facility]/pharmacy #2339, 1 capsule By Mouth [...] 06/25/19 13:39:00 EST, Route to Pharmacy Electronically, [facility]/pharmacy #[id number], this is an increase, [...] 10/15/19 9:13:00 EDT, Route to Pharmacy Electronically, [facility]/pharmacy #[id number], 159, cm, 08/20/19 13:42:00EST, [...] Maintenance, 01/13/2018:58:00 EDT, Route to Pharmacy Electronically, [facility]/pharmacy #[id number], 159, cm, 08/20/19 13:42:00 [...] Venous (Peripheral) Insuffic iency, Unspecified(Confirmed) Active 1initial [place]: 17 on 08/09/14 2initial Oswestry Disability Index: [...] History Procedure/Surgical Profile 3 level Posterior fusion (48947) in 2013 at 58 Years. Spinal decompression (54071) in 2008 at 53 Years. Laminectomy with exploration and/or decompression of spinal cord and/or cauda equina, without facetectomy, foraminotomy or discectomy (eg, spinal stenosis), 1 or 2 vertebral segments; lumbar, except for spondylolisthesis (06365) in 1996 at 41 Years. SCS trial at [facility] complicated by early lead migration. Never had adequate trial. 8Surgical History Procedure/Surgical Profile 3 level Posterior fusion (25234) in 2013 at 58 Years. Spinal decompression (82967) in 2008 at 53 Years. Laminectomy with exploration and/or decompression of spinal cord and/or cauda equina, without facetectomy, foraminotomy or discectomy (eg, spinal stenosis), 1 or 2 vertebral segments; lumbar, except for spondylolisthesis (12341) in 1996 at 41 Years. SCS trial at [facility] complicated by early lead migration. Never had adequate trial. Social History Social History Type Response Smoking Status Former smoker, quit more than 30 days ago entered on: 12/01/18 Sex
--- OUTSIDE RECORDS SUMMARY | 2024-01-05 10:23 | XMS_ITS | Continuity of Care Document ---
Author Organization [facility] ter Address [address] [place] [address]- Care Team Providers Care Ferryboat Pilot Name Role Phone Solis Roman MD Primary Care Physician [phone] [place] [facility] [place] 06/21/19 - 07/28/[address] [address]- [facility] Attending Physician: Luis Higgins MD Admitting Physician: [...] tetanus/diphtheria/pertussis, acel(Tdap) 3 12/23/16 Given 1Result Comment: [id number] 2Result Comment: [03/09/2018] [id number] 3Result Comment: [12/23/2016] given without incident.....vs Medications [...] 15:13:58 EST Start Date: 08/09/14 Status: Ordered chantix 1mg tablet 1 tablet = 1 mg, By Mouth, 2 times a day, # 56 tablet, 1 Refills, Maintenance, 05/03/19 18:30:05 EST, Tablet Start Date: 05/03/19 Status: Ordered Chantix Starter Pack 0.5 mg-1 mg oral tablet 1 tablet, By Mouth, 2 times a day, as directed on package labeling, # 53 tablet, 0 Refills, Maintenance, 05/03/19 18:30:06 EST, Tablet, 1 tablet By Mouth 2 times a day,Instr:as directed on package labeling Start Date: 05/03/19 Status: Ordered Compression Stockings See Instructions, # [...] 0, Maintenance,controlled substance agreement signed 08/30/14; preferred pharm:[facility]. dx: failed back sydrome, 08/30/14 10:48:33, Compound Start Date: 08/30/14 Status: Ordered doxepin 25 mg oral capsule 3 capsule = 75 mg, By Mouth, Daily at bedtime, for 30 days, # 90 capsule, 11 Refills, Hard Stop 12/07/19 14:23:00 EDT, 12/12/18 14:23:00 EDT, Capsule, this is an increase Start Date: 12/12/18 Stop Date: 12/07/19 Status: Ordered hydrochlorothiazide-triamterene 25 mg-37.5 mg oral [...] 06/25/19 13:39:00 EST, Route to Pharmacy Electronically, [facility]/pharmacy #[id number], this is an increase, 159, cm, 06/25/19 [...] Venous (Peripheral) Insuffic iency, Unspecified(Confirmed) Active 1initial [place]: 17 on 08/09/14 2initial Oswestry Disability Index: [...] History Procedure/Surgical Profile 3 level Posterior fusion (75536) in 2013 at 58 Years. Spinal decompression (29525) in 2008 at 53 Years. Laminectomy with exploration and/or decompression of spinal cord and/or cauda equina, without facetectomy, foraminotomy or discectomy (eg, spinal stenosis), 1 or 2 vertebral segments; lumbar, except for spondylolisthesis (53739) in 1996 at 41 Years. SCS trial at [facility] complicated by early lead migration. Never had adequate trial. 8Surgical History Procedure/Surgical Profile 3 level Posterior fusion (15465) in 2013 at 58 Years. Spinal decompression (74160) in 2008 at 53 Years. Laminectomy with exploration and/or decompression of spinal cord and/or cauda equina, without facetectomy, foraminotomy or discectomy (eg, spinal stenosis), 1 or 2 vertebral segments; lumbar, except for spondylolisthesis (71863) in 1996 at 41 Years. SCS trial at [facility] complicated by early lead migration. Never had adequate trial. Social History Social History Type Response Smoking Status Former smoker, quit more than 30 days ago entered on: 12/01/18 Sex
--- OUTSIDE RECORDS SUMMARY | 2024-01-05 10:24 | XMS_ITS | Continuity of Care Document ---
Author Organization [facility] Address [address] [place] [address]- Care Team Providers Care School Bus Attendant Name Role Phone Abel OTERO, Solis Li Primary Care Physician [place] [facility] [place] 10/01/19 - 10/11/19 [facility] [address] [place] [address]- [facility] Attending Physician: Admtr, Ar8 Admitting Physician: Admtr, Ar8 Referring Physician: Admtr, [...] tetanus/diphtheria/pertussis, acel(Tdap) 3 12/23/16 Given 1Result Comment: [id number] 2Result Comment: [03/09/2018] [id number] 3Result Comment: [12/23/2016] given without incident.....vs Medications [...] 0, Maintenance,controlled substance agreement signed 08/30/14; preferred pharm:[facility]. dx: failed back sydrome, [...] 13:39:00 EST, Route to Pharmacy Electronically, [facility]/pharmacy #[id number], this is an increase, 159, cm, 06/25/19 [...] Venous (Peripheral) Insuffic iency, Unspecified(Confirmed) Active 1initial [place]: 17 on 08/09/14 2initial Oswestry Disability Index: [...] History Procedure/Surgical Profile 3 level Posterior fusion (96545) in 2013 at 58 Years. Spinal decompression (28784) in 2008 at 53 Years. Laminectomy with exploration and/or decompression of spinal cord and/or cauda equina, without facetectomy, foraminotomy or discectomy (eg, spinal stenosis), 1 or 2 vertebral segments; lumbar, except for spondylolisthesis (89574) in 1996 at 41 Years. SCS trial at [facility] complicated by early lead migration. Never had adequate trial. 8Surgical History Procedure/Surgical Profile 3 level Posterior fusion (75745) in 2013 at 58 Years. Spinal decompression (47229) in 2008 at 53 Years. Laminectomy with exploration and/or decompression of spinal cord and/or cauda equina, without facetectomy, foraminotomy or discectomy (eg, spinal stenosis), 1 or 2 vertebral segments; lumbar, except for spondylolisthesis (96086) in 1996 at 41 Years. SCS trial at [facility] complicated by early lead migration. Never had adequate trial. Social History Social History Type Response Smoking Status Former smoker, quit more than 30 days ago entered on: 12/01/18 Sex
--- OUTSIDE RECORDS SUMMARY | 2024-01-05 10:24 | XMS_ITS | Continuity of Care Document ---
Author Organization [facility] ter Address [address] [place] [address]- Care Team Providers Care Analytical Lab Technician Name Role Phone Abel OTERO, Solis Li Primary Care Physician [facility] [place] Date(s): 10/23/19 - 11/22/[address] [address]- [facility] Attending Physician: Mary Cantu Admitting Physician: AdmMary [...] tetanus/diphtheria/pertussis, acel(Tdap) 3 12/23/16 Given 1Result Comment: [id number] 2Result Comment: [03/09/2018] [id number] 3Result Comment: [12/23/2016] given without incident.....vs Medications [...] 0, Maintenance,controlled substance agreement signed 08/30/14; preferred pharm:[facility]. dx: failed back [...] Refills, Maintenance, 10/15/19 9:12:00 EDT, Capsule, [facility]/pharmacy #[id number], 159, cm, 08/20/19 13:42:00 EST, Height, [...] 13:39:00 EST, Route to Pharmacy Electronically, [facility]/pharmacy #[id number], this is an increase, 159, cm, [...] 9:13:00 EDT, Route to Pharmacy Electronically, [facility]/pharmacy #[id number], 159, cm, 08/20/19 13:42:00EST, Height, 93.1, [...] Venous (Peripheral) Insuffic iency, Unspecified(Confirmed) Active 1initial [place]: 17 on 08/09/14 2initial Oswestry Disability Index: 57% ( severe disability ) on 08/09/14; initial Neck Disability Index: 40% on 08/16/14 3SOAPP-R: 19 ON 08/09/14 4On 05/31/2013 underwent left total knee arthroplasty with computer navigation for osteoarthritis, left knee by Luis Higgins M.D. at [facility]. 5On 09/24/2008 underwent 1. Open decompression right shoulder (acromioplasty, release of coracoacromial ligament). 2. Distal clavicle excision. 3. Repair of massive markedly retracted posterosuperior cuff tear. 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 at [facility]. 6Polysomnogram performed on 08/17/2014 at [facility] revealed 1. Obstructive sleep apnea, moderate 2. Hypoventilation with sleep 7Surgical History Procedure/Surgical Profile 3 level Posterior fusion (06791) in 2013 at 58 Years. Spinal decompression (27754) in 2008 at 53 Years. Laminectomy with exploration and/or decompression of spinal cord and/or cauda equina, without facetectomy, foraminotomy or discectomy (eg, spinal stenosis), 1 or 2 vertebral segments; lumbar, except for spondylolisthesis (88625) in 1996 at 41 Years. SCS trial at [facility] complicated by early lead migration. Never had adequate trial. 8Surgical History Procedure/Surgical Profile 3 level Posterior fusion (19325) in 2013 at 58 Years. Spinal decompression (76957) in 2008 at 53 Years. Laminectomy with exploration and/or decompression of spinal cord and/or cauda equina, without facetectomy, foraminotomy or discectomy (eg, spinal stenosis), 1 or 2 vertebral segments; lumbar, except for spondylolisthesis (38372) in 1996 at 41 Years. SCS trial at [facility] complicated by early lead migration. Never had adequate trial. Social History Social History Type Response Smoking Status Former smoker, quit more than 30 days ago entered on: 12/01/18 Sex
--- OUTSIDE RECORDS SUMMARY | 2024-01-05 10:24 | XMS_ITS | Continuity of Care Document ---
Author Organization [facility] Address [address] [place] [address]- Care Team Providers Care Store Associate Name Role Phone Abel OTERO, Solis Li Primary Care Physician [phone] [place] [facility] [place]21 [facility] [address] [place], [place] [address] Attending Physician: Mary Cantu Admitting Physician: AdmMary luciano Referring Physician: AdmMary luciano Allergies, Adverse Reactions, Alerts No Known Medication [...] tetanus/diphtheria/pertussis, acel(Tdap) 4 12/23/16 Given 1Result Comment: [id number] 2Result Comment: [id number] 3Result Comment: [03/09/2018] [id number] 4Result Comment: [12/23/2016] given without incident.....vs Medications [...] substance agreement signed 08/30/14; preferred pharm:[facility]. dx: failed back sydrome, 08/30/14 10:48:33, Compound Start Date: 08/30/14 Status: Ordered doxepin 150 mg oral capsule 1 capsule = 150 mg, By Mouth, Daily at bedtime, # 90 capsule, 3 Refills, Maintenance, 06/06/20 10:17:00 EST, Capsule, [facility]/pharmacy #[id number], do not fill until pt calls, 160, cm, 05/09/20 16:02:00 EST, Height, 86.5, kg, 05/07/20 6:28:00 EST, Dry Weight Start Date: 06/06/20 Status: Ordered duloxetine 60 mg oral enteric coated capsule 1 capsule = 60 mg, By Mouth, Daily, # 30 capsule, 11 Refills, Maintenance, 11/10/20 14:38:00 EDT, Capsule, [facility]/pharmacy #[id number], 160, cm, 05/09/20 16:02:00 EST, Height, 86.5, kg, 05/07/20 6:28:00 EST, Dry Weight Start Date: 11/10/20 Status: Ordered gabapentin 800 mg oral tablet 1 tablet = 800 mg, By Mouth, 3 times a day, # 90 tablet, 11 Refills, Maintenance, 06/06/20 10:19:00EST, Tablet, [facility]/pharmacy #[id number], Partial fill upon patient request if the prescription is for a schedule II opioid drug., 160, cm, 05/09/20 16:02:00 ES... Start Date: 06/06/20 Status: Ordered hydrochlorothiazide 12.5 mg oral tablet 1 tablet = 12.5 mg, By Mouth, Daily, D/C HCTZ/ Triamterene, # 30 tablet, 11 Refills, Maintenance, 04/27/20 11:12:00 EST, Tablet, [facility]/pharmacy #[id number], d/c DYAZIDE, 159, cm, 04/25/20 11:27:00 [...] tablet, 1 Refills, Maintenance, 01/13/21 8:57:00 EDT, [id number], 160, cm, 05/09/20 16:02:00 EST, Height, 86.5, [...] 09/11/20 10:05:00 EDT, Route to Pharmacy Electronically, [id number], 160, cm, 05/09/20 16:02:00 EST, Height, 86.5, kg, 05/07/20 6:28:00 EST, Dry Weight Start Date: 09/11/20 Status: Ordered traZODone 50 mg oral tablet See Instructions, TAKE 1 TABLET BY MOUTH EVERYDAY AT BEDTIME, # 90 tablet, Refills 3, Tot. Refills 3, Maintenance, Instructions Replace Required Details, Route to Pharmacy Electronically, [id number], 160, cm, 05/09/20 16:02:00 EST, Height, 86.5,... Start Date: 08/13/20 Status: Ordered valsartan 160 mg oral tablet 160 mg, 1, tablet, By Mouth, Daily, Duplicate from 06/06/20 remaining refills sent, # 90 tablet, Refills 1, Tot. Refills 1, Maintenance, 01/12/21 8:43:00 EDT, Route to Pharmacy Electronically, [facility]/pharmacy #[id number], Partial fill upon patient request [...] 3 Active S/p ablation of atrial flutter(Confirmed) 3/21/18 Active History of total knee replac ement, [...] Venous (Peripheral) Insuffic iency, Unspecified(Confirmed) Active 1initial [place]: 17 on 08/09/14 2initial Oswestry Disability Index: 57% ( severe disability ) on 08/09/14; initial Neck Disability Index: 40% on 08/16/14 3SOAPP-R: 19 ON 08/09/14 4On 05/31/2013 underwent left total knee arthroplasty with computer navigation for osteoarthritis, left knee by Luis Higgins M.D. at [facility]. 5On 09/24/2008 underwent 1. Open decompression right shoulder (acromioplasty, release of coracoacromial ligament). 2. Distal clavicle excision. 3. Repair of massive markedly retracted posterosuperior cuff tear. 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 at [facility]. 6Polysomnogram performed on 08/17/2014 at [facility] revealed 1. Obstructive sleep apnea, moderate 2. Hypoventilation with sleep 7Surgical History Procedure/Surgical Profile 3 level Posterior fusion (02654) in 2013 at 58 Years. Spinal decompression (58135) in 2008 at 53 Years. Laminectomy with exploration and/or decompression of spinal cord and/or cauda equina, without facetectomy, foraminotomy or discectomy (eg, spinal stenosis), 1 or 2 vertebral segments; lumbar, except for spondylolisthesis (61048) in 1996 at 41 Years. SCS trial at [facility] complicated by early lead migration. Never had adequate trial. 8Surgical History Procedure/Surgical Profile 3 level Posterior fusion (14685) in 2013 at 58 Years. Spinal decompression (74958) in 2008 at 53 Years. Laminectomy with exploration and/or decompression of spinal cord and/or cauda equina, without facetectomy, foraminotomy or discectomy (eg, spinal stenosis), 1 or 2 vertebral segments; lumbar, except for spondylolisthesis (64815) in 1996 at 41 Years. SCS trial at [facility] complicated by early lead migration. Never had adequate trial. Social History Social History Type Response Smoking Status Former smoker, quit more than 30 days ago entered on: 12/01/18 Sex
--- OUTSIDE RECORDS SUMMARY | 2024-01-05 10:24 | XMS_ITS | Continuity of Care Document ---
Author Organization [facility] Address [address] [place] [address]- Care Team Providers Care Digital Photographic Printer Name Role Phone Abel OTERO, Solis Li Primary Care Physician Encounter [facility] Date(s): 01/14/20 - 02/13/20 [facility] [address] [place] [address]- [facility] Allergies, Adverse Reactions, Alerts No Known Medication Allergies Substance Reaction Severity Status NKA Active Immunizations Given and Recorded Vaccine Date Status Refusal Reason influenza virus vaccine, inactivated 1 05/03/19 Gi serafin influenza virus vaccine, inactivated 2 03/09/18 Gi serafin influenza virus vaccine, inactivated 03/10/16 Josué rded pneumococcal 13-valent vaccine 03/09/18 Given tetanus/diphtheria/pertussis, acel(Tdap) 3 12/23/16 Given 1Result Comment: [id number] 2Result Comment: [03/09/2018] [id number] 3Result Comment: [12/23/2016] given without incident.....vs Medications [...] 0, Maintenance,controlled substance agreement signed 08/30/14; preferred pharm:[facility]. dx: failed back sydrome, 08/30/14 10:48:33, Compound Start Date: 08/30/14 Status: Ordered duloxetine 60 mg oral enteric coated capsule 1 capsule = 60 mg, By Mouth, Daily, # 30 capsule, 11 Refills, Maintenance, 10/15/19 9:12:00 EDT, Capsule, [facility]/pharmacy #[id number], 159, cm, 08/20/19 13:42:00 EST, Height, 93.1, kg, 11/21/18 12:27:00 EDT, Dry Weight Start Date: 10/15/19 Status: Ordered gabapentin 800 mg oral tablet TAKE 1 TABLET BY MOUTH THREE TIMES A DAY Start Date: 01/14/20 Status: Ordered hydrochlorothiazide-triamterene 25 mg-37.5 mg oral capsule 1 capsule, By Mouth, Daily, # 90 capsule, 0 Refills, Maintenance, 11/29/19 9:26:00 EDT, Capsule, [facility]/pharmacy #[id number], 1 capsule By Mouth Daily,x90 days, [...] 13:39:00 EST, Route to Pharmacy Electronically, [facility]/pharmacy #[id number], this is an increase, 159, cm, [...] 9:13:00 EDT, Route to Pharmacy Electronically, [facility]/pharmacy #[id number], 159, cm, 08/20/19 13:42:00EST, Height, 93.1, [...] Maintenance, 01/13/2018:58:00 EDT, Route to Pharmacy Electronically, [facility]/pharmacy #[id number], 159, cm, 08/20/19 13:42:00 EST,Height, 93.1, [...] Venous (Peripheral) Insuffic iency, Unspecified(Confirmed) Active 1initial [place]: 17 on 08/09/14 2initial Oswestry Disability Index: 57% ( severe disability ) on 08/09/14; initial Neck Disability Index: 40% on 08/16/14 3SOAPP-R: 19 ON 08/09/14 4On 05/31/2013 underwent left total knee arthroplasty with computer navigation for osteoarthritis, left knee by Luis Higgins M.D. at [facility]. 5On 09/24/2008 underwent 1. Open decompression right shoulder (acromioplasty, release of coracoacromial ligament). 2. Distal clavicle excision. 3. Repair of massive markedly retracted posterosuperior cuff tear. 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 at [facility]. 6Polysomnogram performed on 08/17/2014 at [facility] revealed 1. Obstructive sleep apnea, moderate 2. Hypoventilation with sleep 7Surgical History Procedure/Surgical Profile 3 level Posterior fusion (31045) in 2013 at 58 Years. Spinal decompression (42629) in 2008 at 53 Years. Laminectomy with exploration and/or decompression of spinal cord and/or cauda equina, without facetectomy, foraminotomy or discectomy (eg, spinal stenosis), 1 or 2 vertebral segments; lumbar, except for spondylolisthesis (86681) in 1996 at 41 Years. SCS trial at [facility] complicated by early lead migration. Never had adequate trial. 8Surgical History Procedure/Surgical Profile 3 level Posterior fusion (49093) in 2013 at 58 Years. Spinal decompression (84947) in 2008 at 53 Years. Laminectomy with exploration and/or decompression of spinal cord and/or cauda equina, without facetectomy, foraminotomy or discectomy (eg, spinal stenosis), 1 or 2 vertebral segments; lumbar, except for spondylolisthesis (60546) in 1996 at 41 Years. SCS trial at [facility] complicated by early lead migration. Never had adequate trial. Social History Social History Type Response Smoking Status Former smoker, quit more than 30 days ago entered on: 12/01/18 Sex
--- OUTSIDE RECORDS SUMMARY | 2024-01-05 10:24 | XMS_ITS | Continuity of Care Document ---
Author Organization [facility] Address [address] [place] [address]- Care Team Providers Care American Board Certified Orthotist Name Role Phone Abel OTERO, Solis Li Primary Care Physician Encounter [facility] Date(s): 04/22/23 - 04/29/23 [facility] [address], [place] [address] Attending Physician: Valentina OTERO, Oral Doyle Referring Physician: Luis Higgins MD Allergies, Adverse [...] vaccine, inactivated 03/10/16 Josué rded SARS-CoV-2 mRNA (tneodes-xsej-lkrkr) vax 04/08/22 Recorded zoster vaccine, inactivated 11/18/21 Recorded zoster vaccine, inactivated 06/23/20 Recorded SARS-CoV-2 (COVID-19) mRNA BNT-162b2 vac 04/19/21 Recorded SARS-CoV-2 (COVID-19) mRNA-1273 vaccine 09/19/20 G iven SARS-CoV-2 (COVID-19) mRNA-1273 vaccine 08/22/20 G iven pneumococcal 23-valent vaccine 4 04/25/20 Given Influenza Virus Vaccine (oldterm) 03/20/20 Recorde d pneumococcal 13-valent vaccine 03/09/18 Given tetanus/diphtheria/pertussis, acel(Tdap) 5 12/23/16 Given 1Result Comment: [facility] 2Result Comment: [id number] 3Result Comment: [03/09/2018] [id number] 4Result Comment: [id number] 5Result Comment: [12/23/2016] given without incident.....vs Medications [...] 08/30/14; preferred pharm:[facility]. dx: failed back sydrome, 08/30/14 10:48:33, Compound Start Date: 08/30/14 Status: Ordered doxepin 150 mg oral capsule 1 capsule, By Mouth, Daily at bedtime, # 90 capsule, 3 Refills, 08/23/22 11:39:00 EST, [facility]/pharmacy#2339, 160, cm, 08/31/21 15:19:00 EDT, Height Start Date: 08/23/22 Status: Ordered duloxetine 60 mg oral enteric coated capsule 1 capsule, By Mouth, Daily, [facility] 07/2023, # 90 capsule, 3 Refills, 07/27/22 15:27:00 EST, [facility]/pharmacy #2339, 160, cm, 08/31/21 15:19:00 EDT, Height Start Date: 07/27/22 Status: Ordered gabapentin 800 mg oral tablet 1 tablet = 800 mg, By Mouth, 3 times a day, # 90 tablet, 11 Refills, Maintenance, 11/05/22 13:00:00EDT, Tablet, [facility]/pharmacy #[id number], Partial fill upon patient request if the prescription is for a schedule II opioid drug., 160, cm, 08/31/21 15:19:00 ED... Start Date: 11/05/22 Status: Ordered hydrALAZINE 25 mg oral tablet 25 mg, 1, tablet, By Mouth, 2 times a day, # 60 tablet, Refills 11, Tot. Refills 11, Maintenance, 08/13/22 9:21:00 EST, Route to Pharmacy Electronically, [facility]/pharmacy #[id number], Partial fill upon patientrequest if the prescription is for a schedule II op... Start Date: 08/13/22 Status: Ordered hydrochlorothiazide-triamterene 25 mg-37.5 mg oral capsule 1 capsule, By Mouth, Daily, # 90 capsule, 1 Refills, Maintenance, 02/02/23 9:30:00 EDT, [facility]/pharmacy #2339, 90, 1 capsule By Mouth [...] tablet, 3 Refills, Maintenance, 09/21/22 13:56:00 EDT, [facility]/pharmacy#2339, 160, cm, 08/31/21 15:19:00 EDT, Height Start Date: 09/21/22 Status: Ordered tiZANidine 2 mg oral tablet 4 mg, 2, tablet, By Mouth, Daily at bedtime, # 180 tablet, Refills 3, Tot. Refills 3, Maintenance, 03/15/23 12:53:00 EDT, Route to Pharmacy Electronically, [facility]/pharmacy #[id number], 160, cm, 08/31/21 15:19:00 EDT, Height Start Date: 03/15/23 Stop Date: 9/20/24 Status: Ordered traZODone 50 mg oral tablet See Instructions, TAKE 1 TABLET BY MOUTH EVERYDAY AT BEDTIME, # 90 tablet, Refills 0, Tot. Refills 0, Maintenance, 02/07/23 10:55:00 EDT, Instructions Replace Required Details, Route to Pharmacy Electronically, [facility]/pharmacy #2339, 160, cm, 08/31/21 15... Start Date: 02/07/23 Status: Ordered valsartan 320 mg oral tablet 1 tablet, By Mouth, Daily, # 90 tablet, 1 Refills, Maintenance, 01/03/23 11:13:00 EDT, [facility]/pharmacy#2339, 160, cm, 08/31/21 15:19:00 EDT, Height [...] Venous (Peripheral) Insufficiency, Unspecified Confirmed Active 1initial [place]: 17 on 08/09/14 2initial Oswestry Disability Index: [...] History Procedure/Surgical Profile 3 level Posterior fusion (90933) in 2013 at 58 Years. Spinal decompression (38094) in 2008 at 53 Years. Laminectomy with exploration and/or decompression of spinal cord and/or cauda equina, without facetectomy, foraminotomy or discectomy (eg, spinal stenosis), 1 or 2 vertebral segments; lumbar, except for spondylolisthesis (37191) in 1996 at 41 Years. SCS trial at [facility] complicated by early lead migration. Never had adequate trial. 8Surgical History Procedure/Surgical Profile 3 level Posterior fusion (53007) in 2013 at 58 Years. Spinal decompression (84886) in 2008 at 53 Years. Laminectomy with exploration and/or decompression of spinal cord and/or cauda equina, without facetectomy, foraminotomy or discectomy (eg, spinal stenosis), 1 or 2 vertebral segments; lumbar, except for spondylolisthesis (47705) in 1996 at 41 Years. SCS trial at [facility] complicated by early lead migration. Never had adequate trial. Vital Signs Most recent to oldest [Reference Range]: 1 Height 160 cm (04/22/23 9:05 AM) Weight 86.7 kg (04/22/23 9:05 AM) Oxygen Saturation [94-100 %] 97 % (04/22/23 9:05 AM) Pulse Rate [55-90 bpm] 68 bpm (04/22/23 9:05 AM) Body Mass Index [18.5-24.99 kg/m2] 33.87 kg/m2 *>HHI* (04/22/23 9:05 AM) Blood Pressure [90-138/55-84 mm Hg] 145/ 84mm Hg *H* (04/22/23 9:05 AM) Respiratory Rate [16-30 br/min] 18 br/mi n (04/22/23 9:05 AM) Mode of Delivery (Oxygen) Room air (04/22/23 9:05 AM) Blood pressure sites Arm, left (04/22/23 9:05 AM) Weight Obtained Via Standing scale (04/22/23 9:05 AM) Social History Social History Type Response Smoking Status Former smoker, quit more than 30 days ago entered on: 12/01/18 Sex EKG study * Event Display: ECG 12-Lead Authored Date: Please click on pdf link to open report * Event Display: ECG 12-Lead Authored Date: Ventricular Rate: 57 BPM Atrial Rate: 57 BPM P-R Interval: 164 ms QRS Duration: 92 ms Q-T Interval: 424 ms QTC Calculation(Bazett): 412 ms R Hammond: 15 degrees T Hammond: 34 degrees Sinus bradycardia with sinus arrhythmia Otherwise normal ECG When compared with ECG of 21-MAR-2020 10:55, No significant change was found Confirmed by CLARISSA TRUJILLO ([id number]) on 04/22/2023 9:17:32 PM [place]: CLARISSA TRUJILLO Note * Carolina Navarro DO: PERFORM, SIGN, VERIFY Event Display: Patient Education/Instruction Authored Date: [id number] [facility] *[facility]MA Preop Clinical Summary Name MICHAEL GUTIERREZ Age 67 Years 1955 PCP Abel OTERO, Solis Li PCP [facility] [id number] Visit Date 04/22/2023 09:00:00 Patient Instructions Thank you for??coming to your visit today with the preoperative??medical evaluation clinic.?? We wish you a fast recovery??from your surgery.? Your medication instructions are summarized below.?? If??you??are prescribed any new??medications, develop any any new medical problems, or??are hospitalized for any reason prior to your surgery; please??contact us at [phone] and your surgeon's office immediately.? If you have sleep apnea, please bring in a copy of your machine settings for hospital use if you are being admitted overnight.? Please stop all flbv-jid-wwyembd medications including ibuprofen (Advil, Motrin), naproxen (Aleve),??fish oil, multivitamins, vitamin E, turmeric and all herbal??supplements 10 days prior to your procedure as these could increase your risk of bleeding complications.? If you require something for pain or a headache within 10 days of the surgery, it is safe to use acetaminophen (Tylenol) or any opiates prescribed to you. ??Examples of opiates include oxycodone, hydrocodone, and tramadol.? If you are having a joint replacement surgery and you have been prescribed??celecoxib (Celebrex), you??may continue taking this uninterrupted.? Please ONLY take the following prescription??medications the morning of surgery: Metoprolol succinate Hydralazine HCTZ-triamterene Duloxetine Gabapentin Additional Instructions: Scheduled Appointments?? Future Appointments ?Med??Stay??So??7 ?Phone:??--?Fax:??-- ?Appt. Date:??05/04/2023?9:15 AM ?Scheduled Provider:??[facility]Inpt??OR ?Phone:??--?Fax:??-- ?Appt. Date:??05/10/2023?7:30 AM ?Scheduled Provider:??Gisela OTERO, Luis Goodwin ?*[facility] ?[address]??[place],??[place],??[address] ?Phone:??--?Fax:??-- ?Appt. Date:??06/21/2023?3:00 PM ?Scheduled Provider:??Abel OTERO, Solis Li Follow-Up Instructions ?? Allergy Info:?? No Known Medication Allergies; NKA Medications Given This Visit Vital Signs Height 160 cm Weight 86.7 kg BMI 33.87 kg/m2 Blood Pressure 145 mm Hg/84 mm Hg Temperature Pulse Rate 68 bpm Respiratory Rate 18 br/min 02 Sat Mode of Delivery 97 %/Room air You can now view a summary of your hospital visit from the comfort of your home through a free online portal called [employer]. [employer] is a website that allows you to securely view your medical information including discharge summary, medications and follow-up visits. ??You can alsosend a secure electronic message to your doctor???s office to request appointments, renew medications or just ask a question. You can enroll at [email or web address] or register during your next office visit. Disclaimer:?? The information provided is of a general nature and is intended to be used in conjunction with the recommendations and advice of your health care practitioner. ??Every effort has been made to ensure that the information provided is accurate and complete at the time it is provided to you however, as your needs change, or, as new ??information becomes available, different or additional instructions may be required. If you have questions, please consult with your primary care provider or pharmacist, as appropriate. ??This information is not intended to serve as substitution for assessment and evaluation by a qualified health care provider. If you do not have a primary care provider, you may find a [facility] provider by calling [facility] [employer] Link at [phone]. [facility], in keeping with [facility] guidance, no longer requires face masks for staff, patientsor visitors in most situations. Similar to time spent indoors at other locations, there is the chance that you were exposed to respiratory viruses during your time with us (such as flu or COVID-19).? If you develop symptoms concerning for a viral respiratory infection, please seek testing (and treatment if indicated) from your medical provider or home test kit. For information about the plan of care including goals and instructions for your diagnosis, please see the patient education orders section of this document. Patient Education Materials?? The content of this educational material or handout may have been modified, supplemented, or adapted from its original content and format to support your individualized medical care. * Carolina Navarro DO: PERFORM Event Display: Patient Education/Instruction Authored Date: called pt regarding pt instructions, told NOT to take HCTZ-triameterne morning of surgery. Pt expressed understanding. Patient Care team information Care Team Personnel Name: Luis Combs RN Position: [facility] RN Member Role: Primary Care Nurse Name: Solis Roman MD Position: S Physician - Primary Care Member Role: PCP Address: Address: [address] [place] [address] Adult & Pediatric [place], [place] [address] Name: Loni Ervin RN Position: S RN Member Role: Primary Care Nurse Name: Tk Mendoza RN Position: S RN Member Role: Primary Care Nurse Care Team Related Persons Name: RANDY CAPUTO Address: [place] [address] Name: ERIN CHATTERJEE Address: home [address] [place] [address] Name: CRISTA WEST Address: home [address] [place] [address]
--- OUTSIDE RECORDS SUMMARY | 2024-01-05 10:24 | XMS_ITS | Continuity of Care Document ---
Author Organization [facility] Address [address] [place] [address]- Care Team Providers Care Side Stapler Name Role Phone Abel OTERO, Solis Li Primary Care Physician Encounter [facility] Date(s): 04/17/21 - 05/17/21 [facility] [address] [place] [address]- Allergies, Adverse Reactions, Alerts No Known Medication [...] tetanus/diphtheria/pertussis, acel(Tdap) 4 12/23/16 Given 1Result Comment: [id number] 2Result Comment: [id number] 3Result Comment: [03/09/2018] [id number] 4Result Comment: [12/23/2016] given without incident.....vs Medications [...] 3 Refills, Maintenance, 06/06/20 10:17:00 EST, Capsule, [facility]/pharmacy #[id number], do not fill until pt calls, 160, cm, 05/09/20 16:02:00 EST, Height, 86.5, kg, 05/07/20 6:28:00 EST, Dry Weight Start Date: 06/06/20 Status: Ordered duloxetine 60 mg oral enteric coated capsule 1 capsule = 60 mg, By Mouth, Daily, # 30 capsule, 11 Refills, Maintenance, 11/10/20 14:38:00 EDT, Capsule, [facility]/pharmacy #2339, 160, cm, 05/09/20 16:02:00 EST, Height, 86.5, kg, 05/07/20 6:28:00 EST, Dry Weight Start Date: 11/10/20 Status: Ordered gabapentin 800 mg oral tablet 1 tablet = 800 mg, By Mouth, 3 times a day, # 90 tablet, 11 Refills, Maintenance, 06/06/20 10:19:00EST, Tablet, [facility]/pharmacy #2339, Partial fill upon patient request if the prescription is for a schedule II opioid drug., 160, cm, 05/09/20 16:02:00 ES... Start Date: 06/06/20 Status: Ordered hydrochlorothiazide 12.5 mg oral tablet 1 tablet = 12.5 mg, By Mouth, Daily, D/C HCTZ/ Triamterene, # 30 tablet, 5 Refills, Maintenance, 04/13/21 11:29:00 EDT, Tablet, [facility]/pharmacy #2339, d/c DYAZIDE, 160, cm, 05/09/20 16:02:00 [...] tablet, 1 Refills, Maintenance, 01/13/21 8:57:00 EDT, [facility], 160, cm, 05/09/20 16:02:00 EST, Height, 86.5, [...] 09/11/20 10:05:00 EDT, Route to Pharmacy Electronically, [facility], 160, cm, 05/09/20 16:02:00 EST, Height, 86.5, kg, 05/07/20 6:28:00 EST, Dry Weight Start Date: 09/11/20 Status: Ordered traZODone 50 mg oral tablet See Instructions, TAKE 1 TABLET BY MOUTH EVERYDAY AT BEDTIME, # 90 tablet, Refills 3, Tot. Refills 3, Maintenance, Instructions Replace Required Details, Route to Pharmacy Electronically, [id number], 160, cm, 05/09/20 16:02:00 EST, Height, 86.5,... Start Date: 08/13/20 Status: Ordered valsartan 160 mg oral tablet 160 mg, 1, tablet, By Mouth, Daily, Duplicate from 06/06/20 remaining refills sent, # 90 tablet, Refills 1, Tot. Refills 1, Maintenance, 01/12/21 8:43:00 EDT, Route to Pharmacy Electronically, [facility]/pharmacy #[id number], Partial fill upon patient request if [...] Venous (Peripheral) Insuffic iency, Unspecified(Confirmed) Active 1initial [place]: 17 on 08/09/14 2initial Oswestry Disability Index: 57% ( severe disability ) on 08/09/14; initial Neck Disability Index: 40% on 08/16/14 3SOAPP-R: 19 ON 08/09/14 4On 05/31/2013 underwent left total knee arthroplasty with computer navigation for osteoarthritis, left knee by Luis Higgins M.D. at [facility]. 5On 09/24/2008 underwent 1. Open decompression right shoulder (acromioplasty, release of coracoacromial ligament). 2. Distal clavicle excision. 3. Repair of massive markedly retracted posterosuperior cuff tear. 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 at [facility]. 6Polysomnogram performed on 08/17/2014 at [facility] revealed 1. Obstructive sleep apnea, moderate 2. Hypoventilation with sleep 7Surgical History Procedure/Surgical Profile 3 level Posterior fusion (73623) in 2013 at 58 Years. Spinal decompression (77215) in 2008 at 53 Years. Laminectomy with exploration and/or decompression of spinal cord and/or cauda equina, without facetectomy, foraminotomy or discectomy (eg, spinal stenosis), 1 or 2 vertebral segments; lumbar, except for spondylolisthesis (02118) in 1996 at 41 Years. SCS trial at [facility] complicated by early lead migration. Never had adequate trial. 8Surgical History Procedure/Surgical Profile 3 level Posterior fusion (53143) in 2013 at 58 Years. Spinal decompression (52518) in 2008 at 53 Years. Laminectomy with exploration and/or decompression of spinal cord and/or cauda equina, without facetectomy, foraminotomy or discectomy (eg, spinal stenosis), 1 or 2 vertebral segments; lumbar, except for spondylolisthesis (99551) in 1996 at 41 Years. SCS trial at [facility] complicated by early lead migration. Never had adequate trial. Social History Social History Type Response Smoking Status Former smoker, quit more than 30 days ago entered on: 12/01/18 Sex
--- OUTSIDE RECORDS SUMMARY | 2024-01-05 10:24 | XMS_ITS | Continuity of Care Document ---
Author Organization [facility] Address [address] [address]- Care Team Providers Care Registered Nurse Hh Case Manager Name Role Phone Abel OTERO, Solis Li Primary Care Physician Encounter [facility] Date(s): 01/29/21 - 02/28/21 [facility] [address] [place] [id number] Attending Physician: Mary Cantu Admitting Physician: Mary [...] tetanus/diphtheria/pertussis, acel(Tdap) 4 12/23/16 Given 1Result Comment: [id number] 2Result Comment: [id number] 3Result Comment: [03/09/2018] [id number] 4Result Comment: [12/23/2016] given without incident.....vs Medications [...] substance agreement signed 08/30/14; preferred pharm:[facility]. dx: failed back sydrome, 08/30/14 10:48:33, Compound Start Date: 08/30/14 Status: Ordered doxepin 150 mg oral capsule 1 capsule = 150 mg, By Mouth, Daily at bedtime, # 90 capsule, 3 Refills, Maintenance, 06/06/20 10:17:00 EST, Capsule, [facility]/pharmacy #9044, do not fill until pt calls, 160, cm, 05/09/20 16:02:00 EST, Height, 86.5, kg, 05/07/20 6:28:00 EST, Dry Weight Start Date: 06/06/20 Status: Ordered duloxetine 60 mg oral enteric coated capsule 1 capsule = 60 mg, By Mouth, Daily, # 30 capsule, 11 Refills, Maintenance, 11/10/20 14:38:00 EDT, Capsule, [facility]/pharmacy #2339, 160, cm, 05/09/20 16:02:00 EST, Height, 86.5, kg, 05/07/20 6:28:00 EST, Dry Weight Start Date: 11/10/20 Status: Ordered gabapentin 800 mg oral tablet 1 tablet = 800 mg, By Mouth, 3 times a day, # 90 tablet, 11 Refills, Maintenance, 06/06/20 10:19:00EST, Tablet, [facility]/pharmacy #2339, Partial fill upon patient request if the prescription is for a schedule II opioid drug., 160, cm, 05/09/20 16:02:00 ES... Start Date: 06/06/20 Status: Ordered hydrochlorothiazide 12.5 mg oral tablet 1 tablet = 12.5 mg, By Mouth, Daily, D/C HCTZ/ Triamterene, # 30 tablet, 11 Refills, Maintenance, 04/27/20 11:12:00 EST, Tablet, [facility]/pharmacy #2339, d/c DYAZIDE, 159, cm, 04/25/20 [...] tablet, 1 Refills, Maintenance, 01/13/21 8:57:00 EDT, [facility]1863, 160, cm, 05/09/20 16:02:00 EST, Height, 86.5, [...] 09/11/20 10:05:00 EDT, Route to Pharmacy Electronically, [facility], 160, cm, 05/09/20 16:02:00 EST, Height, 86.5, kg, 05/07/20 6:28:00 EST, Dry Weight Start Date: 09/11/20 Status: Ordered traZODone 50 mg oral tablet See Instructions, TAKE 1 TABLET BY MOUTH EVERYDAY AT BEDTIME, # 90 tablet, Refills 3, Tot. Refills 3, Maintenance, Instructions Replace Required Details, Route to Pharmacy Electronically, [facility], 160, cm, 05/09/20 16:02:00 EST, Height, 86.5,... Start Date: 08/13/20 Status: Ordered valsartan 160 mg oral tablet 160 mg, 1, tablet, By Mouth, Daily, Duplicate from 06/06/20 remaining refills sent, # 90 tablet, Refills 1, Tot. Refills 1, Maintenance, 01/12/21 8:43:00 EDT, Route to Pharmacy Electronically, [facility]/pharmacy #5430, Partial fill upon patient request if t... [...] Venous (Peripheral) Insuffic iency, Unspecified(Confirmed) Active 1initial [place]: 17 on 08/09/14 2initial Oswestry Disability Index: 57% ( severe disability ) on 08/09/14; initial Neck Disability Index: 40% on 08/16/14 3SOAPP-R: 19 ON 08/09/14 4On 05/31/2013 underwent left total knee arthroplasty with computer navigation for osteoarthritis, left knee by Luis Higgins M.D. at [facility]. 5On 09/24/2008 underwent 1. Open decompression right shoulder (acromioplasty, release of coracoacromial ligament). 2. Distal clavicle excision. 3. Repair of massive markedly retracted posterosuperior cuff tear. 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 at [facility]. 6Polysomnogram performed on 08/17/2014 at [facility] revealed 1. Obstructive sleep apnea, moderate 2. Hypoventilation with sleep 7Surgical History Procedure/Surgical Profile 3 level Posterior fusion (27352) in 2013 at 58 Years. Spinal decompression (39727) in 2008 at 53 Years. Laminectomy with exploration and/or decompression of spinal cord and/or cauda equina, without facetectomy, foraminotomy or discectomy (eg, spinal stenosis), 1 or 2 vertebral segments; lumbar, except for spondylolisthesis (68313) in 1996 at 41 Years. SCS trial at [facility] complicated by early lead migration. Never had adequate trial. 8Surgical History Procedure/Surgical Profile 3 level Posterior fusion (50027) in 2013 at 58 Years. Spinal decompression (45971) in 2008 at 53 Years. Laminectomy with exploration and/or decompression of spinal cord and/or cauda equina, without facetectomy, foraminotomy or discectomy (eg, spinal stenosis), 1 or 2 vertebral segments; lumbar, except for spondylolisthesis (28199) in 1996 at 41 Years. SCS trial at [facility] complicated by early lead migration. Never had adequate trial. Social History Social History Type Response Smoking Status Former smoker, quit more than 30 days ago entered on: 12/01/18 Sex
--- OUTSIDE RECORDS SUMMARY | 2024-01-05 10:24 | XMS_ITS | Continuity of Care Document ---
Author Organization [facility] ter Address [address] [place] [address]- Care Team Providers Care Kiln Repairer Name Role Phone Solis Roman MD Primary Care Physician [phone] Encounter [facility] [place] Date(s): 05/04/23 - 06/03/[address] [address]- Attending Physician: Admtr, Ar8 Admitting Physician: Admtr, [...] vaccine, inactivated 03/10/16 Josué rded SARS-CoV-2 mRNA (bnwizhf-bgto-qvibp) vax 04/08/22 Recorded zoster vaccine, inactivated 11/18/21 Recorded zoster vaccine, inactivated 06/23/20 Recorded SARS-CoV-2 (COVID-19) mRNA BNT-162b2 vac 04/19/21 Recorded SARS-CoV-2 (COVID-19) mRNA-1273 vaccine 09/19/20 G iven SARS-CoV-2 (COVID-19) mRNA-1273 vaccine 08/22/20 G iven pneumococcal 23-valent vaccine 4 04/25/20 Given Influenza Virus Vaccine (oldterm) 03/20/20 Recorde d pneumococcal 13-valent vaccine 03/09/18 Given tetanus/diphtheria/pertussis, acel(Tdap) 5 12/23/16 Given 1Result [facility] 2Result Comment: [id number] 3Result Comment: [03/09/2018] [id number] 4Result Comment: [id number] 5Result Comment: [12/23/2016] given without incident.....vs Medications [...] 90 capsule, 3 Refills, 07/27/22 15:27:00 EST, [id number], 160, cm, 08/31/21 15:19:00 EDT, Height [...] 08/13/22 9:21:00 EST, Route to Pharmacy Electronically, [facility]/pharmacy #[id number], Partial fill upon patientrequest if the prescription is for a schedule II op... Start Date: 08/13/22 Status: Ordered hydrochlorothiazide-triamterene 25 mg-37.5 mg oral capsule 1 capsule, By Mouth, Daily, # 90 capsule, 0 Refills, Maintenance, 05/29/23 22:06:00 EST, [id number], 90, 1 capsule By [...] 06/01/23 13:04:00 EST, Route to Pharmacy Electronically, [facility]/pharmacy #[id number], 157, cm, 05/12/23 11:57:00 EST, Height, 86, kg, 05/10/23 11:11:00 EST, Dry... Start Date: 06/01/23 Stop Date: 05/26/24 Status: Ordered traZODone 50 mg oral tablet 1, tablet, By Mouth, Daily at bedtime, # 90 tablet, Refills 3, Maintenance, 05/02/23 21:24:00 EST, Route to Pharmacy Electronically, [facility] STORE [id number], 160, cm, 04/22/23 9:05:00 EDT, Height Start Date: 05/02/23 Status: Ordered valsartan 320 mg oral tablet 1 tablet, By Mouth, Daily, # 90 tablet, 1 Refills, Maintenance, 01/03/23 11:13:00 EDT, [facility]/pharmacy#[id number], 160, cm, 08/31/21 15:19:00 [...] Venous (Peripheral) Insufficiency, Unspecified Confirmed Active 1initial [place]: 17 on 08/09/14 2initial Oswestry Disability Index: 57% ( severe disability ) on 08/09/14; initial Neck Disability Index: 40% on 08/16/14 3SOAPP-R: 19 ON 08/09/14 4On 05/31/2013 underwent left total knee arthroplasty with computer navigation for osteoarthritis, left knee by Luis Higgins M.D. at [facility]. 5On 09/24/2008 underwent 1. Open decompression right shoulder (acromioplasty, release of coracoacromial ligament). 2. Distal clavicle excision. 3. Repair of massive markedly retracted posterosuperior cuff tear. 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 at [facility]. 6Polysomnogram performed on 08/17/2014 at [facility] revealed 1. Obstructive sleep apnea, moderate 2. Hypoventilation with sleep 7Surgical History Procedure/Surgical Profile 3 level Posterior fusion (15270) in 2013 at 58 Years. Spinal decompression (89024) in 2008 at 53 Years. Laminectomy with exploration and/or decompression of spinal cord and/or cauda equina, without facetectomy, foraminotomy or discectomy (eg, spinal stenosis), 1 or 2 vertebral segments; lumbar, except for spondylolisthesis (05896) in 1996 at 41 Years. SCS trial at [facility] complicated by early lead migration. Never had adequate trial. 8Surgical History Procedure/Surgical Profile 3 level Posterior fusion (04703) in 2013 at 58 Years. Spinal decompression (91703) in 2008 at 53 Years. Laminectomy with exploration and/or decompression of spinal cord and/or cauda equina, without facetectomy, foraminotomy or discectomy (eg, spinal stenosis), 1 or 2 vertebral segments; lumbar, except for spondylolisthesis (15038) in 1996 at 41 Years. SCS trial at [facility] complicated by early lead migration. Never had adequate trial. Social History Social History Type Response Smoking Status Former smoker, quit more than 30 days ago entered on: 12/01/18 Sex Patient Care team information Care Team Personnel Name: Luis Combs RN Position: [facility] RN Member Role: Primary Care Nurse Name: Solis Roman MD Position: [facility] Physician - Primary Care Member Role: PCP Address: Address: [address] [place] [address] Adult & Pediatric Medicine [place], [place] [address] Name: Iris Al RN Position: S RN Member Role: Primary Care Nurse Name: Stacie Guardado RN Position: [facility] RN Member Role: Primary Care Nurse Name: Loni Ervin RN Position: S RN Member Role: Primary Care Nurse Name: Tk Mendoza RN Position: S RN Member Role: Primary Care Nurse Care Team Related Persons Name: RANDY CAPUTO Address: [place] [address] Name: ERIN CHATTERJEE Address: home [address] [place] [address] Name: CRISTA WEST Address: home [address] [place] [address]
--- OUTSIDE RECORDS SUMMARY | 2024-01-05 10:24 | XMS_ITS | Continuity of Care Document ---
Author Organization [facility] Address [address] [place] [address]- Care Team Providers Care Matrix Worker Name Role Phone Solis Roman MD Primary Care Physician [place] [facility] [place](s): 04/22/22 - 08/20/22 [facility] [address] [place], [place] [address] Attending Physician: Solis Roman MD Allergies, Adverse Reactions, Alerts No Known Allergies Immunizations Given and Recorded Vaccine Date Status Refusal Reason SARS-CoV-2 mRNA (wnefodl-mlta-zvkke) vax 04/08/22 Recorded influenza virus vaccine, inactivated [...] tetanus/diphtheria/pertussis, acel(Tdap) 4 12/23/16 Given 1Result Comment: [id number] 2Result Comment: [03/09/2018] [id number] 3Result Comment: [id number] 4Result Comment: [12/23/2016] given without incident.....vs Medications [...] 0, Maintenance,controlled substance agreement signed 08/30/14; preferred pharm:[facility] Alanna Wilson. dx: failed back sydrome, 08/30/14 10:48:33, Compound Start Date: 08/30/14 Status: Ordered doxepin 150 mg oral capsule 1 capsule, By Mouth, Daily at bedtime, # 90 capsule, 3 Refills, [facility] STORE [id number], 160, cm, 06/22/21 15:54:00 EST, Height, 86.5, kg, 05/07/20 6:28:00 EST, Dry Weight Start Date: 07/21/21 Status: Ordered duloxetine 60 mg oral enteric coated capsule 1 capsule, By Mouth, Daily, [facility] 07/2023, # 90 capsule, 3 Refills, 07/27/22 15:27:00 EST, [facility]/pharmacy #[id number], 160, cm, 08/31/21 15:19:00 EDT, Height Start Date: 07/27/22 Status: Ordered gabapentin 800 mg oral tablet 1 tablet = 800 mg, By Mouth, 3 times a day, # 90 tablet, 11 Refills, Maintenance, 10/05/21 12:46:00EDT, Tablet, [facility]/pharmacy #[id number], Partial fill upon patient request if the prescription is for a schedule II opioid drug., 160, cm, 08/31/21 15:19:00 ED... Start Date: 10/05/21 Status: Ordered hydrALAZINE 25 mg oral tablet 25 mg, 1, tablet, By Mouth, 2 times a day, # 60 tablet, Refills 11, Tot. Refills 11, Maintenance, 08/13/22 9:21:00 EST, Route to Pharmacy Electronically, [facility]/pharmacy #[id number], Partial fill upon patientrequest if the prescription is for a schedule II op... Start Date: 08/13/22 Status: Ordered hydrochlorothiazide-triamterene 25 mg-37.5 mg oral capsule 1 capsule, By Mouth, Daily, # 90 capsule, 1 Refills, Maintenance, 05/27/22 11:51:00 EST, [facility] STORE [id number], 90, TAKE 1 CAPSULE BY MOUTH EVERY [...] tablet, 3 Refills, Maintenance, 06/18/21 14:42:00 EST, [facility]/pharmacy#[id number], 160, cm, 06/18/21 14:17:00 EST, Height, 86.5, kg, 05/07/20 6:28:00 EST, Dry Weight Start Date: 06/18/21 Status: Ordered tiZANidine 2 mg oral tablet 4 mg, 2, tablet, By Mouth, Daily at bedtime, # 180 tablet, Refills 3, Tot. Refills 3, Maintenance, 01/19/22 11:02:00 EDT, Route to Pharmacy Electronically, [facility]/pharmacy #[id number], 160, cm, 08/31/21 15:19:00 EDT, Height, 86.5, kg, 05/07/20 6:28:00 EST, Dry... Start Date: 01/19/22 Stop Date: 01/14/23 Status: Ordered traZODone 50 mg oral tablet See Instructions, TAKE 1 TABLET BY MOUTH EVERYDAY AT BEDTIME, # 90 tablet, Refills 1, Tot. Refills 1, Maintenance, 07/27/22 12:16:00 EST, Instructions Replace Required Details, Route to Pharmacy Electronically, [facility]/pharmacy #[id number], 160, cm, 08/31/21 15... Start Date: 07/27/22 Status: Ordered valsartan 320 mg oral tablet 1 tablet, By Mouth, Daily, # 90 tablet, 1 Refills, Maintenance, 05/27/22 11:53:00 EST, [id number], 160, cm, 08/31/21 15:19:00 EDT, Height Start [...] Venous (Peripheral) Insufficiency, Unspecified Confirmed Active 1initial [place]: 17 on 08/09/14 2initial Oswestry Disability Index: 57% ( severe disability ) on 08/09/14; initial Neck Disability Index: 40% on 08/16/14 3SOAPP-R: 19 ON 08/09/14 4On 05/31/2013 underwent left total knee arthroplasty with computer navigation for osteoarthritis, left knee by Luis Higgins M.D. at [facility]. 5On 09/24/2008 underwent 1. Open decompression right shoulder (acromioplasty, release of coracoacromial ligament). 2. Distal clavicle excision. 3. Repair of massive markedly retracted posterosuperior cuff tear. 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 at [facility]. 6Polysomnogram performed on 08/17/2014 at [facility] revealed 1. Obstructive sleep apnea, moderate 2. Hypoventilation with sleep 7Surgical History Procedure/Surgical Profile 3 level Posterior fusion (32468) in 2013 at 58 Years. Spinal decompression (29321) in 2008 at 53 Years. Laminectomy with exploration and/or decompression of spinal cord and/or cauda equina, without facetectomy, foraminotomy or discectomy (eg, spinal stenosis), 1 or 2 vertebral segments; lumbar, except for spondylolisthesis (24935) in 1996 at 41 Years. SCS trial at [facility] complicated by early lead migration. Never had adequate trial. 8Surgical History Procedure/Surgical Profile 3 level Posterior fusion (79550) in 2013 at 58 Years. Spinal decompression (91187) in 2008 at 53 Years. Laminectomy with exploration and/or decompression of spinal cord and/or cauda equina, without facetectomy, foraminotomy or discectomy (eg, spinal stenosis), 1 or 2 vertebral segments; lumbar, except for spondylolisthesis (82210) in 1996 at 41 Years. SCS trial at [facility] complicated by early lead migration. Never had adequate trial. Social History Social History Type Response Smoking Status Former smoker, quit more than 30 days ago entered on: 12/01/18 Sex Patient Care team information Care Team Personnel Name: Garret ZENDEJAS, Luis Mckee Position: [facility] RN Member Role: Primary Care Nurse Name: Solis Roman MD Position: [facility] Primary Care Physician Member Role: PCP Address: Address: [address] [place] [address] Adult & Pediatric Medicine [place], [place] [address] Name: Aziza ZENDEJAS, Loni Martinez Position: [facility] RN Member Role: Primary Care Nurse Name: Tk Mendoza RN Position: [facility] RN Member Role: Primary Care Nurse Care Team Related Persons Name: PATITORANDY Address: [place] [address] Name: ERIN CHATTERJEE Address: home [address] [place] [address] Name: CRISTA WEST Address: home [address] [place] [address]
--- OUTSIDE RECORDS SUMMARY | 2024-01-05 10:24 | XMS_ITS | Continuity of Care Document ---
Author Organization [facility] Address [address] [place] [address]- Care Team Providers Care Insurance Commissioner Name Role Phone Solis Roman MD Primary Care Physician [place] [facility] [place] 07[place]19 [facility] [address] [place] [address]- [facility] Attending Physician: Solis Roman MD Allergies, Adverse Reactions, Alerts No Known Medication Allergies Substance Reaction Severity Status NKA Active Immunizations Given and Recorded Vaccine Date Status Refusal Reason influenza virus vaccine, inactivated 1 05/03/19 Gi serafin influenza virus vaccine, inactivated 2 03/09/18 Gi serafin influenza virus vaccine, inactivated 03/10/16 Josué rded pneumococcal 13-valent vaccine 03/09/18 Given tetanus/diphtheria/pertussis, acel(Tdap) 3 12/23/16 Given 1Result Comment: [id number] 2Result Comment: [03/09/2018] [id number] 3Result Comment: [12/23/2016] given without incident.....vs Medications [...] 0, Maintenance,controlled substance agreement signed 08/30/14; preferred pharm:[facility]. dx: failed back sydrome, 08/30/14 10:48:33, [...] 06/25/19 13:39:00 EST, Route to Pharmacy Electronically, [facility]/pharmacy #[id number], this is an increase, 159, cm, 06/25/19 [...] right upper extremity also has moderate CTS(Confirmed) 7/19/17 Active Age-related macular degeneration(Confirmed) Active Anxiety(Confirmed) Active [...] Venous (Peripheral) Insuffic iency, Unspecified(Confirmed) Active 1initial [place]: 17 on 08/09/14 2initial Oswestry Disability Index: 57% ( severe disability ) on 08/09/14; initial Neck Disability Index: 40% on 08/16/14 3SOAPP-R: 19 ON 08/09/14 4On 05/31/2013 underwent left total knee arthroplasty with computer navigation for osteoarthritis, left knee by Luis Higgins M.D. at [facility]. 5On 09/24/2008 underwent 1. Open decompression right shoulder (acromioplasty, release of coracoacromial ligament). 2. Distal clavicle excision. 3. Repair of massive markedly retracted posterosuperior cuff tear. 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 at [facility]. 6Polysomnogram performed on 08/17/2014 at [facility] revealed 1. Obstructive sleep apnea, moderate 2. Hypoventilation with sleep 7Surgical History Procedure/Surgical Profile 3 level Posterior fusion (97989) in 2013 at 58 Years. Spinal decompression (10400) in 2008 at 53 Years. Laminectomy with exploration and/or decompression of spinal cord and/or cauda equina, without facetectomy, foraminotomy or discectomy (eg, spinal stenosis), 1 or 2 vertebral segments; lumbar, except for spondylolisthesis (55902) in 1996 at 41 Years. SCS trial at [facility] complicated by early lead migration. Never had adequate trial. 8Surgical History Procedure/Surgical Profile 3 level Posterior fusion (47718) in 2013 at 58 Years. Spinal decompression (97343) in 2008 at 53 Years. Laminectomy with exploration and/or decompression of spinal cord and/or cauda equina, without facetectomy, foraminotomy or discectomy (eg, spinal stenosis), 1 or 2 vertebral segments; lumbar, except for spondylolisthesis (03305) in 1996 at 41 Years. SCS trial at [facility] complicated by early lead migration. Never had adequate trial. Vital Signs Most recent to oldest [Reference Range]: 1 2 Height 159 cm (06/25/19 1:38 PM) 159 cm (06/25/19 1:04 PM) Weight 93.2 kg (06/25/19 1:04 PM) Oxygen Saturation [94-100 %] 93 % *L* (06/25/19 1:04 PM) Pulse Rate [55-90 bpm] 79 bpm (06/25/19 1:04 PM) Body Mass Index [18.5-24.99] 36.87 *>HHI* (06/25/19 1:04 PM) Blood Pressure [90-138/55-84 mm Hg] 124/ 74mm Hg (06/25/19 1:38 PM) 160/84mm Hg *H* (06/25/19 1:04 PM) Blood pressure sites Arm, left (06/25/19 1:04 PM) Social History Social History Type Response Smoking Status Former smoker, quit more than 30 days ago entered on: 12/01/18 Sex
--- OUTSIDE RECORDS SUMMARY | 2024-01-05 10:24 | XMS_ITS | Continuity of Care Document ---
Author Organization [facility] Address [address] [place] [address]- Care Team Providers Care Wall Attendant Name Role Phone Solis Roman MD Primary Care Physician Encounter [facility] Date(s): 06/28/23 - 07/28/23 [facility] [address] [place], [place] [address] Allergies, Adverse Reactions, Alerts [...] vaccine, inactivated 03/10/16 Josué rded SARS-CoV-2 mRNA (kfceugt-ugyu-lsgfh) vax 04/08/22 Recorded zoster vaccine, inactivated 11/18/21 Recorded zoster vaccine, inactivated 06/23/20 Recorded SARS-CoV-2 (COVID-19) mRNA BNT-162b2 vac 04/19/21 Recorded SARS-CoV-2 (COVID-19) mRNA-1273 vaccine 09/19/20 G iven SARS-CoV-2 (COVID-19) mRNA-1273 vaccine 08/22/20 G iven pneumococcal 23-valent vaccine 4 04/25/20 Given Influenza Virus Vaccine (oldterm) 03/20/20 Recorde d pneumococcal 13-valent vaccine 03/09/18 Given tetanus/diphtheria/pertussis, acel(Tdap) 5 12/23/16 Given [facility] 2Result Comment: [id number] 3Result Comment: [03/09/2018] [id number] 4Result Comment: [id number] 5Result Comment: [12/23/2016] given without incident.....vs Medications [...] 90 capsule, 3 Refills, 07/26/23 10:44:00 EST, [facility]/pharmacy#2339, 157, cm, 07/26/23 10:22:00 EST, Height, 86, kg, 05/10/23 11:11:00 EST, Dry Weight Start Date: 07/26/23 Status: Ordered duloxetine 60 mg oral enteric coated capsule 1 capsule, By Mouth, Daily, [facility] 07/2023, # 90 capsule, 3 Refills, 07/26/23 10:44:00 EST, [facility]/pharmacy #[id number], 157, cm, 07/26/23 10:22:00 EST, Height, 86, kg, 05/10/23 11:11:00 EST, Dry Weight Start Date: 07/26/23 Status: Ordered gabapentin 800 mg oral tablet [...] 3 Refills, Maintenance, 07/26/23 10:42:00 EST, Tablet, [facility]/pharmacy #[id number], Partial fill upon patient request if the prescription is for a schedule II opioid drug., 157, cm, 07/26/23 10:22:00 EST... Start Date: 07/26/23 Stop Date: 07/20/24 Status: Ordered hydrochlorothiazide-triamterene 25 mg-37.5 mg oral capsule 1 capsule, By Mouth, Daily, # 90 capsule, 3 Refills, Maintenance, 07/26/23 10:42:00 EST, [facility]/pharmacy #2339, 90, 1 capsule By Mouth Daily, 157, cm, 07/26/23 10:22:00 EST, Height, 86, kg, 05/10/23 11:11:00 EST, Dry Weight Start Date: 07/26/23 Status: Ordered Metoprolol Succinate ER 50 mg oral tablet, extended release 1 tablet, By Mouth, Daily, # 90 tablet, 3 Refills, Maintenance, 07/26/23 10:44:00 EST, [facility]/pharmacy#2339, 157, cm, 07/26/23 10:22:00 EST, Height, 86, kg, 05/10/23 11:11:00 EST, Dry Weight Start Date: 07/26/23 Status: Ordered tiZANidine 2 mg oral tablet 4 mg, 2, tablet, By Mouth, Daily at bedtime, # 180 tablet, Refills 3, Tot. Refills 3, Maintenance, 06/01/23 13:04:00 EST, Route to Pharmacy Electronically, [facility]/pharmacy #[id number], 157, cm, 05/12/23 11:57:00 EST, Height, 86, kg, 05/10/23 11:11:00 EST, Dry... Start Date: 06/01/23 Stop Date: 05/26/24 Status: Ordered traZODone 50 mg oral tablet 1, tablet, By Mouth, Daily at bedtime, # 90 tablet, Refills 3, Maintenance, 05/02/23 21:24:00 EST, Route to Pharmacy Electronically, [facility] STORE [id number], 160, cm, 04/22/23 9:05:00 EDT, Height Start Date: 05/02/23 Status: Ordered valsartan 320 mg oral tablet See Instructions, TAKE 1 TABLET BY MOUTH EVERY DAY, # 90 tablet, 3 Refills, Maintenance, 07/26/23 10:45:00 EST, [facility], 157, cm, 07/26/23 10:22:00 EST, Height, 86, [...] Venous (Peripheral) Insufficiency, Unspecified Confirmed Active 1initial [place]: 17 on 08/09/14 2initial Oswestry Disability Index: 57% ( severe disability ) on 08/09/14; initial Neck Disability Index: 40% on 08/16/14 3SOAPP-R: 19 ON 08/09/14 4On 05/31/2013 underwent left total knee arthroplasty with computer navigation for osteoarthritis, left knee by Luis Higgins M.D. at [facility]. 5On 09/24/2008 underwent 1. Open decompression right shoulder (acromioplasty, release of coracoacromial ligament). 2. Distal clavicle excision. 3. Repair of massive markedly retracted posterosuperior cuff tear. 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 at [facility]. 6Polysomnogram performed on 08/17/2014 at [facility] revealed 1. Obstructive sleep apnea, moderate 2. Hypoventilation with sleep 7Surgical History Procedure/Surgical Profile 3 level Posterior fusion (92227) in 2013 at 58 Years. Spinal decompression (30694) in 2008 at 53 Years. Laminectomy with exploration and/or decompression of spinal cord and/or cauda equina, without facetectomy, foraminotomy or discectomy (eg, spinal stenosis), 1 or 2 vertebral segments; lumbar, except for spondylolisthesis (74319) in 1996 at 41 Years. SCS trial at [facility] complicated by early lead migration. Never had adequate trial. 8Surgical History Procedure/Surgical Profile 3 level Posterior fusion (85181) in 2013 at 58 Years. Spinal decompression (83122) in 2008 at 53 Years. Laminectomy with exploration and/or decompression of spinal cord and/or cauda equina, without facetectomy, foraminotomy or discectomy (eg, spinal stenosis), 1 or 2 vertebral segments; lumbar, except for spondylolisthesis (13167) in 1996 at 41 Years. SCS trial at [facility] complicated by early lead migration. Never had adequate trial. Social History Social History Type Response Smoking Status Former smoker, quit more than 30 days ago entered on: 12/01/18 Sex Patient Care team information Care Team Personnel Name: Luis Combs RN Position: [facility] RN Member Role: Primary Care Nurse Name: Solis Roman MD Position: [facility] Physician - Primary Care Member Role: PCP Address: Address: [address] [place] [address] Adult [place] [address]- [place] Name: Iris Al RN Position: S RN Member Role: Primary Care Nurse Name: Stacie Guardado RN Position: [facility] RN Member Role: Primary Care Nurse Name: Tk Mendoza RN Position: S RN Member Role: Primary Care Nurse Care Team Related Persons Name: PATITO RANDY Address: [place] [address] Name: ERIN CHATTERJEE Address: home [address] [place] [address] Name: CRISTA WEST Address: home [address] [place] [address]
--- OUTSIDE RECORDS SUMMARY | 2024-01-05 10:24 | XMS_ITS | Continuity of Care Document ---
Author Organization [facility] Address [address] [place] [id number]- Care Team Providers Care Stogie Packer Name Role Phone Solis Roman MD Primary Care Physician [phone] Encounter [facility] Date(s): 06/18/19 - 06/28/19 [facility] [address] [place] [address]- [facility] Attending Physician: Admmustapha, Mary Admitting Physician: Admtr, Ar8 Referring Physician: [...] tetanus/diphtheria/pertussis, acel(Tdap) 3 12/23/16 Given 1Result Comment: [id number] 2Result Comment: [03/09/2018] [id number] 3Result Comment: [12/23/2016] given without incident.....vs Medications [...] 0, Maintenance,controlled substance agreement signed 08/30/14; preferred pharm:[facility] [place]. dx: failed back sydrome, 08/30/14 10:48:33, Compound [...] 06/25/19 13:39:00 EST, Route to Pharmacy Electronically, [facility]/pharmacy #[id number], this is an increase, 159, cm, 06/25/19 [...] Venous (Peripheral) Insuffic iency, Unspecified(Confirmed) Active 1initial [place]: 17 on 08/09/14 2initial Oswestry Disability Index: 57% ( severe disability ) on 08/09/14; initial Neck Disability Index: 40% on 08/16/14 3SOAPP-R: 19 ON 08/09/14 4On 05/31/2013 underwent left total knee arthroplasty with computer navigation for osteoarthritis, left knee by Luis Higgins M.D. at [facility]. 5On 09/24/2008 underwent 1. Open decompression right shoulder (acromioplasty, release of coracoacromial ligament). 2. Distal clavicle excision. 3. Repair of massive markedly retracted posterosuperior cuff tear. 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 at [facility]. 6Polysomnogram performed on 08/17/2014 at [facility] revealed 1. Obstructive sleep apnea, moderate 2. Hypoventilation with sleep 7Surgical History Procedure/Surgical Profile 3 level Posterior fusion (31574) in 2013 at 58 Years. Spinal decompression (94681) in 2008 at 53 Years. Laminectomy with exploration and/or decompression of spinal cord and/or cauda equina, without facetectomy, foraminotomy or discectomy (eg, spinal stenosis), 1 or 2 vertebral segments; lumbar, except for spondylolisthesis (51814) in 1996 at 41 Years. SCS trial at [facility] complicated by early lead migration. Never had adequate trial. 8Surgical History Procedure/Surgical Profile 3 level Posterior fusion (11563) in 2013 at 58 Years. Spinal decompression (40338) in 2008 at 53 Years. Laminectomy with exploration and/or decompression of spinal cord and/or cauda equina, without facetectomy, foraminotomy or discectomy (eg, spinal stenosis), 1 or 2 vertebral segments; lumbar, except for spondylolisthesis (96090) in 1996 at 41 Years. SCS trial at [facility] complicated by early lead migration. Never had adequate trial. Social History Social History Type Response Smoking Status Former smoker, quit more than 30 days ago entered on: 12/01/18 Sex
--- OUTSIDE RECORDS SUMMARY | 2024-01-05 10:24 | XMS_ITS | Continuity of Care Document ---
Author Organization [facility] Address [address] [place] [address]- Care Team Providers Care Wafer Fab Operator Name Role Phone Solis Roman MD Primary Care Physician Encounter [facility] [place] Date(s): 06/21/23 - 06/28/23 [facility] [address] [place], [place] [address] Attending Physician: Solis Roman MD [...] vaccine, inactivated 03/10/16 Josué rded SARS-CoV-2 mRNA ([id number]) vax 04/08/22 Recorded zoster vaccine, inactivated 11/18/21 Recorded zoster vaccine, inactivated 06/23/20 Recorded SARS-CoV-2 (COVID-19) mRNA BNT-162b2 vac 04/19/21 Recorded SARS-CoV-2 (COVID-19) mRNA-1273 vaccine 09/19/20 G iven SARS-CoV-2 (COVID-19) mRNA-1273 vaccine 08/22/20 G iven pneumococcal 23-valent vaccine 4 04/25/20 Given Influenza Virus Vaccine (oldterm) 03/20/20 Recorde d pneumococcal 13-valent vaccine 03/09/18 Given tetanus/diphtheria/pertussis, acel(Tdap) 5 12/23/16 Given 1Result Comment: [facility] 2Result Comment: [id number] 3Result Comment: [03/09/2018] [id number] 4Result Comment: [id number] 5Result Comment: [12/23/2016] given without incident.....vs Medications [...] 90 capsule, 3 Refills, 08/23/22 11:39:00 EST, [facility]/pharmacy#[id number], 160, cm, 08/31/21 15:19:00 EDT, Height Start Date: 08/23/22 Status: Ordered duloxetine 60 mg oral enteric coated capsule 1 capsule, By Mouth, Daily, REFILLS GOOD THRU 07/2023, # 90 capsule, 3 Refills, 07/27/22 15:27:00 EST, [facility]/pharmacy #[id number], 160, cm, 08/31/21 15:19:00 EDT, Height [...] 08/13/22 9:21:00 EST, Route to Pharmacy Electronically, [facility]/pharmacy #[id number], Partial fill upon patientrequest if the prescription is for a schedule II op... Start Date: 08/13/22 Status: Ordered hydrochlorothiazide-triamterene 25 mg-37.5 mg oral capsule 1 capsule, By Mouth, Daily, # 90 capsule, 0 Refills, Maintenance, 05/29/23 22:06:00 EST, [facility]/pharmacy #2339, 90, 1 capsule By Mouth Daily, 157, cm, 05/12/23 11:57:00 EST, Height, 86, kg, 05/10/23 11:11:00 EST, Dry Weight Start Date: 05/29/23 Status: Ordered Metoprolol Succinate ER 50 mg oral tablet, extended release 1 tablet, By Mouth, Daily, # 90 tablet, 3 Refills, Maintenance, 09/21/22 13:56:00 EDT, [facility]/pharmacy#[id number], 160, cm, 08/31/21 15:19:00 EDT, Height Start Date: 09/21/22 Status: Ordered tiZANidine 2 mg oral tablet 4 mg, 2, tablet, By Mouth, Daily at bedtime, # 180 tablet, Refills 3, Tot. Refills 3, Maintenance, 06/01/23 13:04:00 EST, Route to Pharmacy Electronically, [facility]/pharmacy #[id number], 157, cm, 05/12/23 11:57:00 EST, Height, 86, kg, 05/10/23 11:11:00 EST, Dry... Start Date: 06/01/23 Stop Date: 05/26/24 Status: Ordered traZODone 50 mg oral tablet 1, tablet, By Mouth, Daily at bedtime, # 90 tablet, Refills 3, Maintenance, 05/02/23 21:24:00 EST, Route to Pharmacy Electronically, [facility] STORE [id number], 160, cm, 04/22/23 9:05:00 EDT, Height Start Date: 05/02/23 Status: Ordered valsartan 320 mg oral tablet 1 tablet, By Mouth, Daily, # 90 tablet, 1 Refills, Maintenance, 06/28/23 11:30:00 EST, [facility]/pharmacy#[id number], 157, cm, 06/21/23 15:00:00 EST, Height, 86, [...] Venous (Peripheral) Insufficiency, Unspecified Confirmed Active 1initial [place]: 17 on 08/09/14 2initial Oswestry Disability Index: 57% ( severe disability ) on 08/09/14; initial Neck Disability Index: 40% on 08/16/14 3SOAPP-R: 19 ON 08/09/14 4On 05/31/2013 underwent left total knee arthroplasty with computer navigation for osteoarthritis, left knee by Luis Higgins M.D. at [facility]. 5On 09/24/2008 underwent 1. Open decompression right shoulder (acromioplasty, release of coracoacromial ligament). 2. Distal clavicle excision. 3. Repair of massive markedly retracted posterosuperior cuff tear. 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 at [facility]. 6Polysomnogram performed on 08/17/2014 at [facility] revealed 1. Obstructive sleep apnea, moderate 2. Hypoventilation with sleep 7Surgical History Procedure/Surgical Profile 3 level Posterior fusion (83782) in 2013 at 58 Years. Spinal decompression (59098) in 2008 at 53 Years. Laminectomy with exploration and/or decompression of spinal cord and/or cauda equina, without facetectomy, foraminotomy or discectomy (eg, spinal stenosis), 1 or 2 vertebral segments; lumbar, except for spondylolisthesis (22036) in 1996 at 41 Years. SCS trial at [facility] complicated by early lead migration. Never had adequate trial. 8Surgical History Procedure/Surgical Profile 3 level Posterior fusion (89272) in 2013 at 58 Years. Spinal decompression (47663) in 2008 at 53 Years. Laminectomy with exploration and/or decompression of spinal cord and/or cauda equina, without facetectomy, foraminotomy or discectomy (eg, spinal stenosis), 1 or 2 vertebral segments; lumbar, except for spondylolisthesis (63373) in 1996 at 41 Years. SCS trial at [facility] complicated by early lead migration. Never had adequate trial. Vital Signs Most recent to oldest [Reference Range]: 1 Height 157 cm (06/21/23 3:00 PM) Weight 89.5 kg (06/21/23 3:00 PM) Oxygen Saturation [94-100 %] 98 % (06/21/23 3:00 PM) Pulse Rate [55-90 bpm] 73 bpm (06/21/23 3:00 PM) Body Mass Index [18.5-24.99 kg/m2] 36.31 kg/m2 *>HHI* (06/21/23 3:00 PM) Blood Pressure [90-138/55-84 mm Hg] 130/ 70mm Hg (06/21/23 3:00 PM) Mode of Delivery (Oxygen) Room air (06/21/23 3:00 PM) Blood pressure sites Arm, left (06/21/23 3:00 PM) Weight Obtained Via Standing scale (06/21/23 3:00 PM) Social History Social History Type Response Smoking Status Former smoker, quit more than 30 days ago entered on: 12/01/18 Sex Note * Ynes Xiao: VERIFY, PERFORM, SIGN Event Display: Patient Education/Instruction Authored Date: [id number] [facility] *[facility] Clinical Summary Name MICHAEL GUTIERREZ Age 67 Years 1955 PCP Solis Roman MD PCP Visit Date 06/21/2023 14:40:00 Additional Instructions: Scheduled Appointments?? Future Appointments ?*No[facility] ?[address]??[place],??[place],??[address] ?Phone:??--?Fax:??-- ?Appt. Date:??07/26/2023?10:20 AM ?Scheduled Provider:??Solis Roman MD Follow-Up Instructions ?? Diagnosis Postlaminectomy syndrome, not elsewhere classified Medications: Please continue your medications until treatment is completed or stopped by your provider. Discuss any questions related to medications with your provider. Medications to Continue Taking That Have Changed These medications were not printed or sent to your pharmacy - Gabapentin (gabapentin 800 mg oral tablet) 1 tab(s) Oral 3 times a day. Next Dose: Medications to Continue with No Changes These medications were not printed or sent to your pharmacy Acetaminophen (acetaminophen 325 mg oral tablet) 650 Milligram Oral every 6 hours. May take OTC follow directions on bottle not to exceed 3000 mg/day. Next Dose: Cevimeline (cevimeline 30 mg oral capsule) 1 capsule Oral 3 times a day as needed Other. dry mouth. Next Dose: Doxepin (doxepin 150 mg oral capsule) 1 capsule Oral Daily at Bedtime. Refills: 3. Next Dose: Duloxetine (duloxetine 60 mg oral enteric coated capsule) 1 capsule Oral Daily. REFILLS GOOD THRU 07/2023. Refills: 3. Next Dose: hydrALAZINE (hydrALAZINE 25 mg oral tablet) 1 tab(s) Oral twice a day. Refills: 11. Next Dose: Hydrochlorothiazide/Triamterene (hydrochlorothiazide-triamterene 25 mg-37.5 mg oral capsule) 1 capsule Oral Daily. Refills: 0. Next Dose: Immune Globulin Intravenous (Gamunex) 300 Milligrams/Kilogram Intravenous Infusion. every 4 weeks. Next Dose: Metoprolol (Metoprolol Succinate ER 50 mg oral tablet, extended release) 1 tab(s) Oral Daily. Refills: 3. Next Dose: Tizanidine (tiZANidine 2 mg oral tablet) 2 tab(s) Oral Daily at Bedtime for 90 Days. Refills: 3. Next Dose: Trazodone (traZODone 50 mg oral tablet) 1 tab(s) Oral Daily at Bedtime. Refills: 3. Next Dose: Valsartan (valsartan 320 mg oral tablet) 1 tab(s) Oral Daily. Refills: 1. Next Dose: No Longer Take the Following Medications apixaban (apixaban 2.5 mg oral tablet) 2.5 Milligram Oral twice a day for 30 Days. Refills: 0. Celecoxib (celecoxib 200 mg oral capsule) 200 Milligram Oral Daily. Docusate (Colace Capsule) 100 Milligram Oral twice a day as needed as needed for constipation. Pantoprazole (pantoprazole 40 mg oral delayed release tablet) 40 Milligram Oral Daily. Allergy Info:?? No Known Medication Allergies; NKA Medications Given This Visit Future Orders ?No future orders Vital Signs Height 157 cm Weight 89.5 kg BMI 36.31 kg/m2 Blood Pressure 130 mm Hg/70 mm Hg Temperature Pulse Rate 73 bpm Respiratory Rate 02 Sat Mode of Delivery 98 %/Room air You can now view a summary of your hospital visit from the comfort of your home through a free online portal called [employer]. [employer] [facility] is a website that allows you to securely view your medical information including discharge summary, medications and follow-up visits. ??You can alsosend a secure electronic message to your doctor???s office to request appointments, renew medications or just ask a question. You can enroll at [email or web address] or register during your next office visit. [...] primary care provider, you may find a [facility] provider by calling [facility] Link at [phone]. [facility], in keeping with [facility] guidance, no longer requires face masks [...] format to support your individualized medical care. Additional Provider Instructions: Arthritis Acetaminophen 2 every 8 hours ALEVE 1 every 8 hours ( with some food ) Gabapentin 800 mgs every 8 hours Patient Care team information Care Team Personnel Name: Luis Combs RN Position: [facility] RN Member Role: Primary Care Nurse Name: Solis Roman MD Position: [facility] Physician - Primary Care Member Role: PCP Address: Address: [address] [place] [address] Adult & Pediatric [place], [place] [address] Name: Iris Al RN Position: [facility] RN Member Role: Primary Care Nurse Name: Stacie Guardado RN Position: [facility] RN Member Role: Primary Care Nurse Name: Tk Mendoza RN Position: [facility] RN Member Role: Primary Care Nurse Care Team Related Persons Name: RANDY CAPUTO Address: [place] [address] Name: ERIN CHATTERJEE Address: home [address] [place] [address] Name: CRISTA WEST Address: home [address] [place] [address]
--- OUTSIDE RECORDS SUMMARY | 2024-01-05 10:24 | XMS_ITS | Continuity of Care Document ---
Author Organization [facility] Address [address] [place] [address]- Care Team Providers Care Set Up Technician Name Role Phone Solis Roman MD Primary Care Physician Encounter [facility] Date(s): 06/22/21 - 06/29/21 [facility] [address] [place] [address]- Attending Physician: Solis Roman MD Allergies, Adverse [...] tetanus/diphtheria/pertussis, acel(Tdap) 4 12/23/16 Given 1Result Comment: [id number] 2Result Comment: [03/09/2018] [id number] 3Result Comment: [id number] 4Result Comment: [12/23/2016] given without incident.....vs Medications [...] 0, Maintenance,controlled substance agreement signed 08/30/14; preferred pharm:[facility]. dx: failed back sydrome, 08/30/14 10:48:33, Compound Start Date: 08/30/14 Status: Ordered doxepin 150 mg oral capsule 1 capsule = 150 mg, By Mouth, Daily at bedtime, # 90 capsule, 3 Refills, Maintenance, 06/06/20 10:17:00 EST, Capsule, [facility]/pharmacy #[id number], do not fill until pt calls, 160, cm, 05/09/20 16:02:00 EST, Height, 86.5, kg, 05/07/20 6:28:00 EST, Dry Weight Start Date: 06/06/20 Status: Ordered duloxetine 60 mg oral enteric coated capsule 1 capsule = 60 mg, By Mouth, Daily, # 30 capsule, 11 Refills, Maintenance, 11/10/20 14:38:00 EDT, Capsule, [facility]/pharmacy #2339, 160, cm, 05/09/20 16:02:00 EST, Height, 86.5, kg, 05/07/20 6:28:00 EST, Dry Weight Start Date: 11/10/20 Status: Ordered gabapentin 800 mg oral tablet 1 tablet = 800 mg, By Mouth, 3 times a day, # 90 tablet, 11 Refills, Maintenance, 06/06/20 10:19:00EST, Tablet, [facility]/pharmacy #[id number], Partial fill upon patient request if the prescription is for a schedule II opioid drug., 160, cm, 05/09/20 16:02:00 ES... Start Date: 06/06/20 Status: Ordered hydrochlorothiazide-triamterene 25 mg-37.5 mg oral capsule 1 capsule, By Mouth, Daily, # 30 capsule, 11 Refills, Maintenance, 06/22/21 16:39:00 EST, Capsule, [facility]/pharmacy #[id number], d/c hydrochlorothiazide, 1 capsule By [...] tablet, 3 Refills, Maintenance, 06/18/21 14:42:00 EST, [facility]/pharmacy#2339, 160, cm, 06/18/21 14:17:00 EST, Height, [...] 09/11/20 10:05:00 EDT, Route to Pharmacy Electronically, [facility] STORE [id number], 160, cm, 05/09/20 16:02:00 EST, Height, 86.5, kg, 05/07/20 6:28:00 EST, Dry Weight Start Date: 09/11/20 Status: Ordered traZODone 50 mg oral tablet See Instructions, TAKE 1 TABLET BY MOUTH EVERYDAY AT BEDTIME, # 90 tablet, Refills 3, Tot. Refills 3, Maintenance, Instructions Replace Required Details, Route to Pharmacy Electronically, [facility] STORE 75058, 160, cm, 05/09/20 16:02:00 EST, Height, 86.5,... Start Date: 08/13/20 Status: Ordered valsartan 320 mg oral tablet 1 tablet = 320 mg, By Mouth, Daily, # 90 tablet, 3 Refills, Maintenance, 06/18/21 14:40:00 EST, Tablet, [id number], this is a n inrease in [...] Venous (Peripheral) Insuffic iency, Unspecified(Confirmed) Active 1initial [place]: 17 on 08/09/14 2initial Oswestry Disability Index: 57% ( severe disability ) on 08/09/14; initial Neck Disability Index: 40% on 08/16/14 3SOAPP-R: 19 ON 08/09/14 4On 05/31/2013 underwent left total knee arthroplasty with computer navigation for osteoarthritis, left knee by Luis Higgins M.D. at [facility]. 5On 09/24/2008 underwent 1. Open decompression right shoulder (acromioplasty, release of coracoacromial ligament). 2. Distal clavicle excision. 3. Repair of massive markedly retracted posterosuperior cuff tear. 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 at [facility]. 6Polysomnogram performed on 08/17/2014 at [facility] revealed 1. Obstructive sleep apnea, moderate 2. Hypoventilation with sleep 7Surgical History Procedure/Surgical Profile 3 level Posterior fusion (42998) in 2013 at 58 Years. Spinal decompression (47831) in 2008 at 53 Years. Laminectomy with exploration and/or decompression of spinal cord and/or cauda equina, without facetectomy, foraminotomy or discectomy (eg, spinal stenosis), 1 or 2 vertebral segments; lumbar, except for spondylolisthesis (45636) in 1996 at 41 Years. SCS trial at [facility] complicated by early lead migration. Never had adequate trial. 8Surgical History Procedure/Surgical Profile 3 level Posterior fusion (50983) in 2013 at 58 Years. Spinal decompression (81482) in 2008 at 53 Years. Laminectomy with exploration and/or decompression of spinal cord and/or cauda equina, without facetectomy, foraminotomy or discectomy (eg, spinal stenosis), 1 or 2 vertebral segments; lumbar, except for spondylolisthesis (56606) in 1996 at 41 Years. SCS trial at [facility] complicated by early lead migration. Never had adequate trial. Vital Signs Most recent to oldest [Reference Range]: 1 Height 160 cm (06/22/21 3:54 PM) Weight 85.7 kg (06/22/21 3:54 PM) Oxygen Saturation [94-100 %] 95 % (06/22/21 3:54 PM) Pulse Rate [55-90 bpm] 66 bpm (06/22/21 3:54 PM) Body Mass Index [18.5-24.99] 33.48 *>HHI* (06/22/21 3:54 PM) Blood Pressure [90-138/55-84 mm Hg] 144/ 90mm Hg *H* (06/22/21 3:54 PM) Temperature [96.8-100.4 DegF] 96.7 DegF *L* (06/22/21 3:54 PM) Blood pressure sites Arm, left (06/22/21 3:54 PM) Social History Social History Type Response Smoking Status Former smoker, quit more than 30 days ago entered on: 12/01/18 Sex
--- OUTSIDE RECORDS SUMMARY | 2024-01-05 10:24 | XMS_ITS | Continuity of Care Document ---
Author Organization [facility] Address [address] [place] [address]- Care Team Providers Care Kinesiotherapist Name Role Phone Solis Roman MD Primary Care Physician [facility] 08[facility]21 - 09/07/21 [facility] [address] [place] [address]- Attending Physician: Solis Roman MD Allergies, Adverse [...] tetanus/diphtheria/pertussis, acel(Tdap) 4 12/23/16 Given 1Result Comment: [id number] 2Result Comment: [03/09/2018] [id number] 3Result Comment: [id number] 4Result Comment: [12/23/2016] given without incident.....vs Medications [...] 0, Maintenance,controlled substance agreement signed 08/30/14; preferred pharm:[facility]. dx: failed back sydrome, 08/30/14 10:48:33, Compound Start Date: 08/30/14 Status: Ordered doxepin 150 mg oral capsule 1 capsule, By Mouth, Daily at bedtime, # 90 capsule, 3 Refills, [id number], 160, cm, 06/22/21 15:54:00 EST, Height, 86.5, kg, 05/07/20 6:28:00 EST, Dry Weight Start Date: 07/21/21 Status: Ordered duloxetine 60 mg oral enteric coated capsule 1 capsule = 60 mg, By Mouth, Daily, # 30 capsule, 11 Refills, Maintenance, 11/10/20 14:38:00 EDT, Capsule, [facility]/pharmacy #[id number], 160, cm, 05/09/20 16:02:00 EST, Height, 86.5, kg, 05/07/20 6:28:00 EST, Dry Weight Start Date: 11/10/20 Status: Ordered gabapentin 800 mg oral tablet 1 tablet = 800 mg, By Mouth, 3 times a day, # 90 tablet, 11 Refills, Maintenance, 06/06/20 10:19:00EST, Tablet, [facility]/pharmacy #[id number], Partial fill upon patient request if the prescription is for a schedule II opioid drug., 160, cm, 05/09/20 16:02:00 ES... Start Date: 06/06/20 Status: Ordered hydrALAZINE 25 mg oral tablet 25 mg, 1, tablet, By Mouth, 2 times a day, # 60 tablet, Refills 11, Tot. Refills 11, Maintenance, 08/03/21 14:23:00 EST, Route to Pharmacy Electronically, [facility]/pharmacy #[id number], Partial fill upon patient request if the prescription is for a schedule II o... Start Date: 08/03/21 Status: Ordered hydrochlorothiazide-triamterene 25 mg-37.5 mg oral capsule 1 capsule, By Mouth, Daily, # 30 capsule, 11 Refills, Maintenance, 06/22/21 16:39:00 EST, Capsule, [facility]/pharmacy #[id number], d/c hydrochlorothiazide, 1 capsule By Mouth [...] Maintenance, 06/18/21 14:42:00 EST, [facility]/pharmacy#[id number], 160, cm, 06/18/21 14:17:00 EST, Height, 86.5, [...] 09/11/20 10:05:00 EDT, Route to Pharmacy Electronically, [id number], 160, cm, 05/09/20 16:02:00 EST, Height, 86.5, kg, 05/07/20 6:28:00 EST, Dry Weight Start Date: 09/11/20 Status: Ordered traZODone 50 mg oral tablet See Instructions, TAKE 1 TABLET BY MOUTH EVERYDAY AT BEDTIME, # 90 tablet, Refills 3, Tot. Refills 3, Maintenance, 08/03/21 14:24:00 EST, Instructions Replace Required Details, Route to Pharmacy Electronically, [facility]/pharmacy #[id number], 160, cm, 08/03/21 14... Start Date: 08/03/21 Status: Ordered valsartan 320 mg oral tablet 1 tablet = 320 mg, By Mouth, Daily, # 90 tablet, 3 Refills, Maintenance, 06/18/21 14:40:00 EST, Tablet, [facility]/pharmacy #[id number], this is a n inrease in [...] Venous (Peripheral) Insuffic iency, Unspecified(Confirmed) Active 1initial [place]: 17 on 08/09/14 2initial Oswestry Disability Index: 57% ( severe disability ) on 08/09/14; initial Neck Disability Index: 40% on 08/16/14 3SOAPP-R: 19 ON 08/09/14 4On 05/31/2013 underwent left total knee arthroplasty with computer navigation for osteoarthritis, left knee by Luis Higgins M.D. at [facility]. 5On 09/24/2008 underwent 1. Open decompression right shoulder (acromioplasty, release of coracoacromial ligament). 2. Distal clavicle excision. 3. Repair of massive markedly retracted posterosuperior cuff tear. 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 at [facility]. 6Polysomnogram performed on 08/17/2014 at [facility] revealed 1. Obstructive sleep apnea, moderate 2. Hypoventilation with sleep 7Surgical History Procedure/Surgical Profile 3 level Posterior fusion (31152) in 2013 at 58 Years. Spinal decompression (10450) in 2008 at 53 Years. Laminectomy with exploration and/or decompression of spinal cord and/or cauda equina, without facetectomy, foraminotomy or discectomy (eg, spinal stenosis), 1 or 2 vertebral segments; lumbar, except for spondylolisthesis (98646) in 1996 at 41 Years. SCS trial at [facility] complicated by early lead migration. Never had adequate trial. 8Surgical History Procedure/Surgical Profile 3 level Posterior fusion (86299) in 2013 at 58 Years. Spinal decompression (34765) in 2008 at 53 Years. Laminectomy with exploration and/or decompression of spinal cord and/or cauda equina, without facetectomy, foraminotomy or discectomy (eg, spinal stenosis), 1 or 2 vertebral segments; lumbar, except for spondylolisthesis (85993) in 1996 at 41 Years. SCS trial at [facility] complicated by early lead migration. Never had adequate trial. Vital Signs Most recent to oldest [Reference Range]: 1 2 Height 160 cm (08/31/21 3:19 PM) 160 cm (08/31/21 2:50 PM) Weight 86.8 kg (08/31/21 2:50 PM) Oxygen Saturation [94-100 %] 97 % (08/31/21 2:50 PM) Pulse Rate [55-90 bpm] 78 bpm (08/31/21 2:50 PM) Body Mass Index [18.5-24.99] 33.91 *>HHI* (08/31/21 2:50 PM) Blood Pressure [90-138/55-84 mm Hg] 118/ 66mm Hg (08/31/21 3:19 PM) 130/66mm Hg (08/31/21 2:50 PM) Blood pressure sites Arm, left (08/31/21 2:50 PM) Social History Social History Type Response Smoking Status Former smoker, quit more than 30 days ago entered on: 12/01/18 Sex
--- OUTSIDE RECORDS SUMMARY | 2024-01-05 10:24 | XMS_ITS | Continuity of Care Document ---
Author Organization [facility] Address [address] [place] [address]- Care Team Providers Care Rn Cardiac Rehab Name Role Phone Solis Roman MD Primary Care Physician [facility]): 01/19/22 - 02/18/22 [facility] [address] [place], [place] [address] Allergies, Adverse Reactions, Alerts No Known Allergies [...] tetanus/diphtheria/pertussis, acel(Tdap) 4 12/23/16 Given 1Result Comment: [id number] 2Result Comment: [03/09/2018] [id number] 3Result Comment: [id number] 4Result Comment: [12/23/2016] given without incident.....vs Medications [...] signed 08/30/14; preferred pharm:[facility] [place]. dx: failed back sydrome, 08/30/14 10:48:33, Compound Start Date: 08/30/14 Status: Ordered doxepin 150 mg oral capsule 1 capsule, By Mouth, Daily at bedtime, # 90 capsule, 3 Refills, [id number], 160, cm, 06/22/21 15:54:00 EST, Height, 86.5, kg, 05/07/20 6:28:00 EST, Dry Weight Start Date: 07/21/21 Status: Ordered duloxetine 60 mg oral enteric coated capsule 1 capsule, By Mouth, Daily, # 90 capsule, 3 Refills, [id number], 160, cm, 08/31/21 15:19:00 EDT, Height, 86.5, kg, 05/07/20 6:28:00 EST, Dry Weight Start Date: 10/30/21 Status: Ordered gabapentin 800 mg oral tablet 1 tablet = 800 mg, By Mouth, 3 times a day, # 90 tablet, 11 Refills, Maintenance, 10/05/21 12:46:00EDT, Tablet, [facility]/pharmacy #[id number], Partial fill upon patient request if the prescription is for a schedule II opioid drug., 160, cm, 08/31/21 15:19:00 ED... Start Date: 10/05/21 Status: Ordered hydrALAZINE 25 mg oral tablet 25 mg, 1, tablet, By Mouth, 2 times a day, # 60 tablet, Refills 11, Tot. Refills 11, Maintenance, 08/03/21 14:23:00 EST, Route to Pharmacy Electronically, [facility]/pharmacy #[id number], Partial fill upon patient request if the prescription is for a schedule II o... Start Date: 08/03/21 Status: Ordered hydrochlorothiazide-triamterene 25 mg-37.5 mg oral capsule 1 capsule, By Mouth, Daily, # 30 capsule, 11 Refills, Maintenance, 06/22/21 16:39:00 EST, Capsule, [facility]/pharmacy #[id number], d/c hydrochlorothiazide, 1 capsule By [...] tablet, 3 Refills, Maintenance, 06/18/21 14:42:00 EST, [facility]/pharmacy#2339, 160, cm, 06/18/21 14:17:00 EST, Height, 86.5, kg, 05/07/20 6:28:00 EST, Dry Weight Start Date: 06/18/21 Status: Ordered tiZANidine 2 mg oral tablet 4 mg, 2, tablet, By Mouth, Daily at bedtime, # 180 tablet, Refills 3, Tot. Refills 3, Maintenance, 01/19/22 11:02:00 EDT, Route to Pharmacy Electronically, [facility]/pharmacy #[id number], 160, cm, 08/31/21 15:19:00 EDT, Height, 86.5, kg, 05/07/20 6:28:00 EST, Dry... Start Date: 01/19/22 Stop Date: 01/14/23 Status: Ordered traZODone 50 mg oral tablet See Instructions, TAKE 1 TABLET BY MOUTH EVERYDAY AT BEDTIME, # 90 tablet, Refills 3, Tot. Refills 3, Maintenance, 08/03/21 14:24:00 EST, Instructions Replace Required Details, Route to Pharmacy Electronically, [facility]/pharmacy #[id number], 160, cm, 08/03/21 14... Start Date: 08/03/21 Status: Ordered valsartan 320 mg oral tablet 1 tablet = 320 mg, By Mouth, Daily, # 90 tablet, 3 Refills, Maintenance, 06/18/21 14:40:00 EST, Tablet, [facility]/pharmacy #[id number], this is a n inrease [...] Venous (Peripheral) Insuffic iency, Unspecified(Confirmed) Active 1initial [place]: 17 on 08/09/14 2initial Oswestry Disability Index: 57% ( severe disability ) on 08/09/14; initial Neck Disability Index: 40% on 08/16/14 3SOAPP-R: 19 ON 08/09/14 4On 05/31/2013 underwent left total knee arthroplasty with computer navigation for osteoarthritis, left knee by Luis Higgins M.D. at [facility]. 5On 09/24/2008 underwent 1. Open decompression right shoulder (acromioplasty, release of coracoacromial ligament). 2. Distal clavicle excision. 3. Repair of massive markedly retracted posterosuperior cuff tear. 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 at [facility]. 6Polysomnogram performed on 08/17/2014 at [facility] revealed 1. Obstructive sleep apnea, moderate 2. Hypoventilation with sleep 7Surgical History Procedure/Surgical Profile 3 level Posterior fusion (33792) in 2013 at 58 Years. Spinal decompression (32912) in 2008 at 53 Years. Laminectomy with exploration and/or decompression of spinal cord and/or cauda equina, without facetectomy, foraminotomy or discectomy (eg, spinal stenosis), 1 or 2 vertebral segments; lumbar, except for spondylolisthesis (97265) in 1996 at 41 Years. SCS trial at [facility] complicated by early lead migration. Never had adequate trial. 8Surgical History Procedure/Surgical Profile 3 level Posterior fusion (09703) in 2013 at 58 Years. Spinal decompression (51692) in 2008 at 53 Years. Laminectomy with exploration and/or decompression of spinal cord and/or cauda equina, without facetectomy, foraminotomy or discectomy (eg, spinal stenosis), 1 or 2 vertebral segments; lumbar, except for spondylolisthesis (19212) in 1996 at 41 Years. SCS trial at [facility] complicated by early lead migration. Never had adequate trial. Social History Social History Type Response Smoking Status Former smoker, quit more than 30 days ago entered on: 12/01/18 Sex Care Team Personnel Name: Solis Roman MD Address: [address] [place] [address] Adult [facility] Pediatric Medicine [address]
--- OUTSIDE RECORDS SUMMARY | 2024-01-05 10:24 | XMS_ITS | Continuity of Care Document ---
Author Organization [facility] Address [address] [place] [address]- Care Team Providers Care Single Stayer Operator Name Role Phone Solis Roman MD Primary Care Physician [facility](s): 05/01/23 - 05/31/23 [facility] [address] [place] [address]- Allergies, Adverse Reactions, Alerts No Known Allergies Immunizations Given and Recorded Vaccine Date Status Refusal Reason influenza virus vaccine, inactivated 1 03/16/23 Re corded influenza virus vaccine, inactivated 04/08/22 Josué rded influenza virus vaccine, inactivated 04/19/21 Josué rded influenza virus vaccine, inactivated 2 05/03/19 Gi serafin influenza virus vaccine, inactivated 3 03/09/18 Gi serafin influenza virus vaccine, inactivated 03/10/16 Josué rded SARS-CoV-2 mRNA ([id number]) vax 04/08/22 Recorded zoster vaccine, inactivated 11/18/21 Recorded zoster vaccine, inactivated 06/23/20 Recorded SARS-CoV-2 (COVID-19) mRNA BNT-162b2 vac 04/19/21 Recorded SARS-CoV-2 (COVID-19) mRNA-1273 vaccine 09/19/20 G iven SARS-CoV-2 (COVID-19) mRNA-1273 vaccine 08/22/20 G iven pneumococcal 23-valent vaccine 4 04/25/20 Given Influenza Virus Vaccine (oldterm) 03/20/20 Recorde d pneumococcal 13-valent vaccine 03/09/18 Given tetanus/diphtheria/pertussis, acel(Tdap) 5 12/23/16 Given 1Result Comment: [facility] 2Result Comment: [id number] 3Result Comment: [03/09/2018] [id number] 4Result Comment: [id number] 5Result Comment: [12/23/2016] given without incident.....vs Medications [...] 90 capsule, 3 Refills, 08/23/22 11:39:00 EST, [facility]/pharmacy#[id number], 160, cm, 08/31/21 15:19:00 EDT, Height Start Date: 08/23/22 Status: Ordered duloxetine 60 mg oral enteric coated capsule 1 capsule, By Mouth, Daily, [facility] 07/2023, # 90 capsule, 3 Refills, 07/27/22 15:27:00 EST, [facility]/pharmacy #[id number], 160, cm, 08/31/21 15:19:00 EDT, [...] 08/13/22 9:21:00 EST, Route to Pharmacy Electronically, [facility]/pharmacy #[id number], Partial fill upon patientrequest if the prescription is for a schedule II op... Start Date: 08/13/22 Status: Ordered hydrochlorothiazide-triamterene 25 mg-37.5 mg oral capsule 1 capsule, By Mouth, Daily, # 90 capsule, 0 Refills, Maintenance, 05/29/23 22:06:00 EST, [facility]/pharmacy #2339, 90, 1 capsule By Mouth [...] 03/15/23 12:53:00 EDT, Route to Pharmacy Electronically, [facility]/pharmacy #[id number], 160, cm, 08/31/21 15:19:00 EDT, Height Start Date: 03/15/23 Stop Date: 03/09/24 Status: Ordered traZODone 50 mg oral tablet 1, tablet, By Mouth, Daily at bedtime, # 90 tablet, Refills 3, Maintenance, 05/02/23 21:24:00 EST, Route to Pharmacy Electronically, [id number], 160, cm, 04/22/23 9:05:00 EDT, Height Start Date: 05/02/23 Status: Ordered valsartan 320 mg oral tablet 1 tablet, By Mouth, Daily, # 90 tablet, 1 Refills, Maintenance, 01/03/23 11:13:00 EDT, [facility]/pharmacy#[id number], 160, cm, 08/31/21 15:19:00 EDT, Height [...] Venous (Peripheral) Insufficiency, Unspecified Confirmed Active 1initial [place]: 17 on 08/09/14 2initial Oswestry Disability Index: 57% ( severe disability ) on 08/09/14; initial Neck Disability Index: 40% on 08/16/14 3SOAPP-R: 19 ON 08/09/14 4On 05/31/2013 underwent left total knee arthroplasty with computer navigation for osteoarthritis, left knee by Luis Higgins M.D. at [facility]. 5On 09/24/2008 underwent 1. Open decompression right shoulder (acromioplasty, release of coracoacromial ligament). 2. Distal clavicle excision. 3. Repair of massive markedly retracted posterosuperior cuff tear. 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 at [facility]. 6Polysomnogram performed on 08/17/2014 at [facility] revealed 1. Obstructive sleep apnea, moderate 2. Hypoventilation with sleep 7Surgical History Procedure/Surgical Profile 3 level Posterior fusion (47194) in 2013 at 58 Years. Spinal decompression (47160) in 2008 at 53 Years. Laminectomy with exploration and/or decompression of spinal cord and/or cauda equina, without facetectomy, foraminotomy or discectomy (eg, spinal stenosis), 1 or 2 vertebral segments; lumbar, except for spondylolisthesis (78375) in 1996 at 41 Years. SCS trial at [facility] complicated by early lead migration. Never had adequate trial. 8Surgical History Procedure/Surgical Profile 3 level Posterior fusion (92329) in 2014 at 58 Years. Spinal decompression (81557) in 2008 at 53 Years. Laminectomy with exploration and/or decompression of spinal cord and/or cauda equina, without facetectomy, foraminotomy or discectomy (eg, spinal stenosis), 1 or 2 vertebral segments; lumbar, except for spondylolisthesis (64349) in 1996 at 41 Years. SCS trial at [facility] complicated by early lead migration. Never had adequate trial. Social History Social History Type Response Smoking Status Former smoker, quit more than 30 days ago entered on: 12/01/18 Sex Patient Care team information Care Team Personnel Name: Luis Combs RN Position: [facility] RN Member Role: Primary Care Nurse Name: Solis Roman MD Position: [facility] Physician - Primary Care Member Role: PCP Address: Address: [address] [place] [address] Adult & Pediatric Medicine [place], [place] [address] Name: Iris Al RN Position: [facility] RN Member Role: Primary Care Nurse Name: Stacie Guardado RN Position: [facility] SN RN Member Role: Primary Care Nurse Name: Loni Ervin RN Position: S RN Member Role: Primary Care Nurse Name: Tk Mendoza RN Position: [facility] RN Member Role: Primary Care Nurse Care Team Related Persons Name: RANDY CAPUTO Address: [place] [address] Name: ERIN CHATTERJEE Address: [address] [place] [address] Name: CRISTA WEST Address: home [address] [place] [id number]
--- OUTSIDE RECORDS SUMMARY | 2024-01-05 10:24 | XMS_ITS | Continuity of Care Document ---
Author Organization [facility] Address [address] [place] [address]- Care Team Providers Care Newspaper Distributor Supervisor Name Role Phone Solis Roman MD Primary Care Physician [phone] [facility]counter [facility] 06[facility]11[facility]19 - 06/18/19 [facility] [address] [place] [address]- [facility] Attending Physician: Solis Roman MD Allergies, Adverse Reactions, Alerts No Known Medication Allergies Substance Reaction Severity Status NKA Active Immunizations Given and Recorded Vaccine Date Status Refusal Reason influenza virus vaccine, inactivated 1 05/03/19 Gi serafin influenza virus vaccine, inactivated 2 03/09/18 Gi serafin influenza virus vaccine, inactivated 03/10/16 Josué rded pneumococcal 13-valent vaccine 03/09/18 Given tetanus/diphtheria/pertussis, acel(Tdap) 3 12/23/16 Given 1Result Comment: [id number] 2Result Comment: [03/09/2018] [id number] 3Result Comment: [12/23/2016] given without incident.....vs Medications [...] 0, Maintenance,controlled substance agreement signed 08/30/14; preferred pharm:[facility] [place]. dx: failed back sydrome, 08/30/14 10:48:33, Compound [...] Compound Start Date: 01/25/14 Status: Ordered metoprolol 25 mg oral tablet, extended release 50 mg, 2, tablet, By Mouth, Daily, # 60 tablet, Refills 3, Tot. Refills 3, Maintenance, 11/09/18 12:21:08 EDT, Route to Pharmacy Electronically, [facility]/pharmacy #[id number] Start Date: 11/09/18 Stop Date: 09/09/19 Status: Ordered PreserVision By Mouth, Daily, 0 [...] Venous (Peripheral) Insuffic iency, Unspecified(Confirmed) Active 1initial [place]: 17 on 08/09/14 2initial Oswestry Disability Index: 57% ( severe disability ) on 08/09/14; initial Neck Disability Index: 40% on 08/16/14 3SOAPP-R: 19 ON 08/09/14 4On 05/31/2013 underwent left total knee arthroplasty with computer navigation for osteoarthritis, left knee by Luis Higgins M.D. at [facility]. 5On 09/24/2008 underwent 1. Open decompression right shoulder (acromioplasty, release of coracoacromial ligament). 2. Distal clavicle excision. 3. Repair of massive markedly retracted posterosuperior cuff tear. 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 at [facility]. 6Polysomnogram performed on 08/17/2014 at [facility] revealed 1. Obstructive sleep apnea, moderate 2. Hypoventilation with sleep 7Surgical History Procedure/Surgical Profile 3 level Posterior fusion (01473) in 2013 at 58 Years. Spinal decompression (82209) in 2008 at 53 Years. Laminectomy with exploration and/or decompression of spinal cord and/or cauda equina, without facetectomy, foraminotomy or discectomy (eg, spinal stenosis), 1 or 2 vertebral segments; lumbar, except for spondylolisthesis (00992) in 1996 at 41 Years. SCS trial at [facility] complicated by early lead migration. Never had adequate trial. 8Surgical History Procedure/Surgical Profile 3 level Posterior fusion (50634) in 2013 at 58 Years. Spinal decompression (19537) in 2008 at 53 Years. Laminectomy with exploration and/or decompression of spinal cord and/or cauda equina, without facetectomy, foraminotomy or discectomy (eg, spinal stenosis), 1 or 2 vertebral segments; lumbar, except for spondylolisthesis (11007) in 1996 at 41 Years. SCS trial at [facility] complicated by early lead migration. Never had adequate trial. Vital Signs Most recent to oldest [Reference Range]: 1 Height 159 cm (06/11/19 12:53 PM) Weight 91.35 kg (06/11/19 12:53 PM) Oxygen Saturation [94-100 %] 95 % (06/11/19 12:53 PM) Pulse Rate [55-90 bpm] 77 bpm (06/11/19 12:53 PM) Body Mass Index [18.5-24.99] 36.13 *>HHI* (06/11/19 12:53 PM) Blood Pressure [90-138/55-84 mm Hg] 142/ 88mm Hg *H* (06/11/19 12:53 PM) Mode of Delivery (Oxygen) Room air (06/11/19 12:53 PM) Blood pressure sites Arm, left (06/11/19 12:53 PM) Weight Obtained Via Standing scale (06/11/19 12:53 PM) Social History Social History Type Response Smoking Status Former smoker, quit more than 30 days ago entered on: 12/01/18 Sex
--- OUTSIDE RECORDS SUMMARY | 2024-01-05 10:25 | XMS_ITS | Continuity of Care Document ---
Author Organization [facility] ter Address [address] [place] [id number]- Care Team Providers Care Loft Worker Pile Driving Name Role Phone Solis Roman MD Primary Care Physician [phone] Encounter [facility] Date(s): 04/09/20 - 05/29/[address] [address]- Attending Physician: Luis Higgins MD Admitting Physician: [...] tetanus/diphtheria/pertussis, acel(Tdap) 4 12/23/16 Given 1Result Comment: [id number] 2Result Comment: [id number] 3Result Comment: [03/09/2018] [id number] 4Result Comment: [12/23/2016] given without incident.....vs Medications [...] capsule, By Mouth, 2 times a day, hold for loose stool, Refills 0, Maintenance, 207:54:00 EST, Partial fill upon patient request Start Date: 05/08/20 Status: Ordered Compression Stockings See Instructions, # 2 pair, Refills 3, Tot. Refills 3, Maintenance, surgical, thigh high length 30-40 mm Hg Dx: bilateral lower extremity edema, 09/26/18 12:45:14 EDT, Compound Start Date: 09/26/18 Status: Ordered Controlled substance agreement Controlled substance agreement, See Instructions, # 1 each, Refills 0, Tot. Refills 0, Maintenance,controlled substance agreement signed 08/30/14; preferred pharm:[facility]. dx: failed back sydrome, 08/30/14 10:48:33, Compound Start Date: 08/30/14 Status: Ordered doxepin 25 mg oral capsule 3 capsule = 75 mg, By Mouth, Daily at bedtime, for 30 days, # 90 capsule, 11 Refills, Hard Stop 02/26/21 13:13:00 EDT, 03/03/20 13:13:00 EDT, Capsule, [facility]/pharmacy #[id number], this is an increase, 159, cm, 08/20/19 13:42:00 EST, Height, 93.1, kg, ... Start Date: 03/03/20 Stop Date: 02/26/21 Status: Ordered duloxetine 60 mg oral enteric coated capsule 1 capsule = 60 mg, By Mouth, Daily, # 30 capsule, 11 Refills, Maintenance, 10/15/19 9:12:00 EDT, Capsule, [facility]/pharmacy #[id number], 159, cm, 08/20/19 13:42:00 EST, Height, 93.1, kg, 11/21/18 12:27:00 EDT, Dry Weight Start Date: 10/15/19 Status: Ordered gabapentin 400 mg oral capsule 800 mg, 2, capsule, By Mouth, 3 times a day, Refills 0, Maintenance, 05/08/20 7:57:00 EST, Partial fill upon patient request Start Date: 05/08/20 Status: Ordered hydrochlorothiazide 12.5 mg oral tablet 1 tablet = 12.5 mg, By Mouth, Daily, D/C HCTZ/ Triamterene, # 30 tablet, 11 Refills, Maintenance, 04/27/20 11:12:00 EST, Tablet, [facility]/pharmacy #[id number], d/c DYAZIDE, 159, cm, 04/25/20 [...] 16:02:15, Compound Start Date: 01/25/14 Status: Ordered Maalox Plus Liquid 30 mL, By Mouth, Every 4 hours, PRN Other, Heartburn, 0 Refills, Maintenance, 05/08/20 7:54:00 EST,Suspension, Partial fill upon patient request Start Date: 05/08/20 Status: Ordered metoprolol 50 mg oral tablet, extended release 50 mg, 1, tablet, By Mouth, Daily, # 90 tablet, Refills 3, Tot. Refills 3, Maintenance, 06/25/19 13:39:00 EST, Route to Pharmacy Electronically, [facility]/pharmacy #[id number], this is an increase, 159, cm, 06/25/19 13:38:00 EST, Height, 93.1, kg, 11/21/18 12:2... Start Date: 06/25/19 Status: Ordered Milk of Magnesia Liquid 30 mL, By Mouth, Daily, PRN Constipation, 0 Refills, Maintenance, 05/08/20 7:58:00 EST, Suspension,Partial fill upon patient request Start Date: 05/08/20 Status: Ordered MiraLax Powder 1 pack/packet = 17 Gm, By Mouth, Daily, may take OTC, follow directions on the bottle dissolve in water or juice, 0 Refills, Maintenance, 05/08/20 7:58:00 EST, Powder, Partial fill upon patient request Start Date: 05/08/20 Status: Ordered senna 187 mg oral tablet [...] 10/15/19 9:13:00 EDT, Route to Pharmacy Electronically, [facility]/pharmacy #[id number], 159, cm, 08/20/19 13:42:00EST, Height, 93.1, kg, 11/21/18 12:27:00 EDT, Dry W... Start Date: 10/15/19 Stop Date: 10/09/20 Status: Ordered valsartan 320 mg oral tablet 1 tablet = 320 mg, By Mouth, Daily, # 30 tablet, 11 Refills, Maintenance, 04/25/20 12:20:00 EST, Tablet, [facility]/pharmacy #[id number], this is an increase, 159, cm, 04/25/20 11:27:00 EST, Height, 93.1, kg, 11/21/18 12:27:00 EDT, Dry Weight Start Date: 04/25/20 Status: Ordered warfarin 1 mg oral tablet [...] Venous (Peripheral) Insuffic iency, Unspecified(Confirmed) Active 1initial [place]: 17 on 08/09/14 2initial Oswestry Disability Index: 57% ( severe disability ) on 08/09/14; initial Neck Disability Index: 40% on 08/16/14 3SOAPP-R: 19 ON 08/09/14 4On 05/31/2013 underwent left total knee arthroplasty with computer navigation for osteoarthritis, left knee by Luis Higgins M.D. at [facility]. 5On 09/24/2008 underwent 1. Open decompression right shoulder (acromioplasty, release of coracoacromial ligament). 2. Distal clavicle excision. 3. Repair of massive markedly retracted posterosuperior cuff tear. 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 at [facility]. 6Polysomnogram performed on 08/17/2014 at [facility] revealed 1. Obstructive sleep apnea, moderate 2. Hypoventilation with sleep 7Surgical History Procedure/Surgical Profile 3 level Posterior fusion (64000) in 2013 at 58 Years. Spinal decompression (26456) in 2008 at 53 Years. Laminectomy with exploration and/or decompression of spinal cord and/or cauda equina, without facetectomy, foraminotomy or discectomy (eg, spinal stenosis), 1 or 2 vertebral segments; lumbar, except for spondylolisthesis (14780) in 1996 at 41 Years. SCS trial at [facility] complicated by early lead migration. Never had adequate trial. 8Surgical History Procedure/Surgical Profile 3 level Posterior fusion (29100) in 2013 at 58 Years. Spinal decompression (44071) in 2008 at 53 Years. Laminectomy with exploration and/or decompression of spinal cord and/or cauda equina, without facetectomy, foraminotomy or discectomy (eg, spinal stenosis), 1 or 2 vertebral segments; lumbar, except for spondylolisthesis (85496) in 1996 at 41 Years. SCS trial at [facility] complicated by early lead migration. Never had adequate trial. Social History Social History Type Response Smoking Status Former smoker, quit more than 30 days ago entered on: 12/01/18 Sex
--- OUTSIDE RECORDS SUMMARY | 2024-01-05 10:25 | XMS_ITS | Continuity of Care Document ---
Author Organization [facility] Address [address] [place] [address]- Care Team Providers Care Product Safety Engineer Name Role Phone Solis Roman MD Primary Care Physician [facility]counter [facility] Date(s): 01/20/22 - 02/19/22 [facility] [address] [place], [place] [address] Allergies, Adverse Reactions, Alerts No [...] tetanus/diphtheria/pertussis, acel(Tdap) 4 12/23/16 Given 1Result Comment: [id number] 2Result Comment: [03/09/2018] [id number] 3Result Comment: [id number] 4Result Comment: [12/23/2016] given without incident.....vs Medications [...] 0, Maintenance,controlled substance agreement signed 08/30/14; preferred pharm:[facility]. dx: failed back sydrome, 08/30/14 10:48:33, Compound Start Date: 08/30/14 Status: Ordered doxepin 150 mg oral capsule 1 capsule, By Mouth, Daily at bedtime, # 90 capsule, 3 Refills, [id number], 160, cm, 06/22/21 15:54:00 EST, Height, 86.5, kg, 05/07/20 6:28:00 EST, Dry Weight Start Date: 07/21/21 Status: Ordered duloxetine 60 mg oral enteric coated capsule 1 capsule, By Mouth, Daily, # 90 capsule, 3 Refills, [id number], 160, cm, 08/31/21 15:19:00 EDT, Height, 86.5, kg, 05/07/20 6:28:00 EST, Dry Weight Start Date: 10/30/21 Status: Ordered gabapentin 800 mg oral tablet 1 tablet = 800 mg, By Mouth, 3 times a day, # 90 tablet, 11 Refills, Maintenance, 10/05/21 12:46:00EDT, Tablet, [facility]/pharmacy #[id number], Partial fill upon patient request if the prescription is for a schedule II opioid drug., 160, cm, 08/31/21 15:19:00 ED... Start Date: 10/05/21 Status: Ordered hydrALAZINE 25 mg oral tablet 25 mg, 1, tablet, By Mouth, 2 times a day, # 60 tablet, Refills 11, Tot. Refills 11, Maintenance, 08/03/21 14:23:00 EST, Route to Pharmacy Electronically, [facility]/pharmacy #[id number], Partial fill upon patient request if the prescription is for a schedule II o... Start Date: 08/03/21 Status: Ordered hydrochlorothiazide-triamterene 25 mg-37.5 mg oral capsule 1 capsule, By Mouth, Daily, # 30 capsule, 11 Refills, Maintenance, 06/22/21 16:39:00 EST, Capsule, [facility]/pharmacy #[id number], d/c hydrochlorothiazide, 1 capsule By Mouth [...] 3 Refills, Maintenance, 06/18/21 14:42:00 EST, [facility]/pharmacy#2339, 160, cm, 06/18/21 14:17:00 EST, Height, 86.5, kg, 05/07/20 6:28:00 EST, Dry Weight Start Date: 06/18/21 Status: Ordered tiZANidine 2 mg oral tablet 4 mg, 2, tablet, By Mouth, Daily at bedtime, # 180 tablet, Refills 3, Tot. Refills 3, Maintenance, 01/19/22 11:02:00 EDT, Route to Pharmacy Electronically, [facility]/pharmacy #[id number], 160, cm, 08/31/21 15:19:00 EDT, Height, 86.5, kg, 05/07/20 6:28:00 EST, Dry... Start Date: 01/19/22 Stop Date: 01/14/23 Status: Ordered traZODone 50 mg oral tablet See Instructions, TAKE 1 TABLET BY MOUTH EVERYDAY AT BEDTIME, # 90 tablet, Refills 3, Tot. Refills 3, Maintenance, 08/03/21 14:24:00 EST, Instructions Replace Required Details, Route to Pharmacy Electronically, [facility]/pharmacy #[id number], 160, cm, 08/03/21 14... Start Date: 08/03/21 Status: Ordered valsartan 320 mg oral tablet 1 tablet = 320 mg, By Mouth, Daily, # 90 tablet, 3 Refills, Maintenance, 06/18/21 14:40:00 EST, Tablet, [facility]/pharmacy #[id number], this is a n inrease in [...] Venous (Peripheral) Insuffic iency, Unspecified(Confirmed) Active 1initial [place]: 17 on 08/09/14 2initial Oswestry Disability Index: [...] History Procedure/Surgical Profile 3 level Posterior fusion (80557) in 2013 at 58 Years. Spinal decompression (06941) in 2008 at 53 Years. Laminectomy with exploration and/or decompression of spinal cord and/or cauda equina, without facetectomy, foraminotomy or discectomy (eg, spinal stenosis), 1 or 2 vertebral segments; lumbar, except for spondylolisthesis (28419) in 1996 at 41 Years. SCS trial at [facility] complicated by early lead migration. Never had adequate trial. 8Surgical History Procedure/Surgical Profile 3 level Posterior fusion (00446) in 2013 at 58 Years. Spinal decompression (44052) in 2008 at 53 Years. Laminectomy with exploration and/or decompression of spinal cord and/or cauda equina, without facetectomy, foraminotomy or discectomy (eg, spinal stenosis), 1 or 2 vertebral segments; lumbar, except for spondylolisthesis (48300) in 1996 at 41 Years. SCS trial at [facility] complicated by early lead migration. Never had adequate trial. Social History Social History Type Response Smoking Status Former smoker, quit more than 30 days ago entered on: 12/01/18 Sex Care Team Personnel Name: Solis Roman MD Address: [address] [place] [address] [facility] [address]
--- OUTSIDE RECORDS SUMMARY | 2024-01-05 10:25 | XMS_ITS | Continuity of Care Document ---
Author Organization [facility] Address [address] [place] [address]- Care Team Providers Care Electroplating Technician Name Role Phone Solis Roman MD Primary Care Physician [phone] [facility]counter [facility] Date(s): 06/18/21 - 06/25/21 [facility] [address] [place] [address]- Attending Physician: Solis Roman MD Allergies, Adverse [...] tetanus/diphtheria/pertussis, acel(Tdap) 4 12/23/16 Given 1Result Comment: [id number] 2Result Comment: [03/09/2018] [id number] 3Result Comment: [id number] 4Result Comment: [12/23/2016] given without incident.....vs Medications [...] 0, Maintenance,controlled substance agreement signed 08/30/14; preferred pharm:[facility]. dx: failed back sydrome, 08/30/14 10:48:33, Compound Start Date: 08/30/14 Status: Ordered doxepin 150 mg oral capsule 1 capsule = 150 mg, By Mouth, Daily at bedtime, # 90 capsule, 3 Refills, Maintenance, 06/06/20 10:17:00 EST, Capsule, [facility]/pharmacy #[id number], do not fill until pt calls, 160, cm, 05/09/20 16:02:00 EST, Height, 86.5, kg, 05/07/20 6:28:00 EST, Dry Weight Start Date: 06/06/20 Status: Ordered duloxetine 60 mg oral enteric coated capsule 1 capsule = 60 mg, By Mouth, Daily, # 30 capsule, 11 Refills, Maintenance, 11/10/20 14:38:00 EDT, Capsule, [facility]/pharmacy #[id number], 160, cm, 05/09/20 16:02:00 EST, Height, 86.5, kg, 05/07/20 6:28:00 EST, Dry Weight Start Date: 11/10/20 Status: Ordered gabapentin 800 mg oral tablet 1 tablet = 800 mg, By Mouth, 3 times a day, # 90 tablet, 11 Refills, Maintenance, 06/06/20 10:19:00EST, Tablet, [facility]/pharmacy #[id number], Partial fill upon patient request if the prescription is for a schedule II opioid drug., 160, cm, 05/09/20 16:02:00 ES... Start Date: 06/06/20 Status: Ordered hydrochlorothiazide-triamterene 25 mg-37.5 mg oral capsule 1 capsule, By Mouth, Daily, # 30 capsule, 11 Refills, Maintenance, 06/22/21 16:39:00 EST, Capsule, [facility]/pharmacy #[id number], d/c hydrochlorothiazide, 1 capsule By [...] 3 Refills, Maintenance, 06/18/21 14:42:00 EST, [facility]/pharmacy#2339, 160, cm, 06/18/21 14:17:00 EST, Height, [...] 10:05:00 EDT, Route to Pharmacy Electronically, [id number], 160, cm, 05/09/20 16:02:00 EST, Height, 86.5, kg, 05/07/20 6:28:00 EST, Dry Weight Start Date: 09/11/20 Status: Ordered traZODone 50 mg oral tablet See Instructions, TAKE 1 TABLET BY MOUTH EVERYDAY AT BEDTIME, # 90 tablet, Refills 3, Tot. Refills 3, Maintenance, Instructions Replace Required Details, Route to Pharmacy Electronically, [id number], 160, cm, 05/09/20 16:02:00 EST, Height, 86.5,... [...] Venous (Peripheral) Insuffic iency, Unspecified(Confirmed) Active 1initial [place]: 17 on 08/09/14 2initial Oswestry Disability Index: 57% ( severe disability ) on 08/09/14; initial Neck Disability Index: 40% on 08/16/14 3SOAPP-R: 19 ON 08/09/14 4On 05/31/2013 underwent left total knee arthroplasty with computer navigation for osteoarthritis, left knee by Luis Higgins M.D. at [facility]. 5On 09/24/2008 underwent 1. Open decompression right shoulder (acromioplasty, release of coracoacromial ligament). 2. Distal clavicle excision. 3. Repair of massive markedly retracted posterosuperior cuff tear. 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 at [facility]. 6Polysomnogram performed on 08/17/2014 at [facility] revealed 1. Obstructive sleep apnea, moderate 2. Hypoventilation with sleep 7Surgical History Procedure/Surgical Profile 3 level Posterior fusion (88580) in 2013 at 58 Years. Spinal decompression (38478) in 2008 at 53 Years. Laminectomy with exploration and/or decompression of spinal cord and/or cauda equina, without facetectomy, foraminotomy or discectomy (eg, spinal stenosis), 1 or 2 vertebral segments; lumbar, except for spondylolisthesis (41392) in 1996 at 41 Years. SCS trial at [facility] complicated by early lead migration. Never had adequate trial. 8Surgical History Procedure/Surgical Profile 3 level Posterior fusion (67221) in 2013 at 58 Years. Spinal decompression (84153) in 2008 at 53 Years. Laminectomy with exploration and/or decompression of spinal cord and/or cauda equina, without facetectomy, foraminotomy or discectomy (eg, spinal stenosis), 1 or 2 vertebral segments; lumbar, except for spondylolisthesis (18756) in 1996 at 41 Years. SCS trial at [facility] complicated by early lead migration. Never had adequate trial. Vital Signs Most recent to oldest [Reference Range]: 1 Height 160 cm (06/18/21 2:17 PM) Weight 87.4 kg (06/18/21 2:17 PM) Oxygen Saturation [94-100 %] 99 % (06/18/21 2:17 PM) Pulse Rate [55-90 bpm] 75 bpm (06/18/21 2:17 PM) Body Mass Index [18.5-24.99] 34.14 *>HHI* (06/18/21 2:17 PM) Blood Pressure [90-138/55-84 mm Hg] 180/ 110mm Hg *H* (06/18/21 2:17 PM) Temperature [96.8-100.4 DegF] 97.4 DegF (06/18/21 2:17 PM) Blood pressure sites Arm, left (06/18/21 2:17 PM) Social History Social History Type Response Smoking Status Former smoker, quit more than 30 days ago entered on: 12/01/18 Sex
--- OUTSIDE RECORDS SUMMARY | 2024-01-05 10:25 | XMS_ITS | Continuity of Care Document ---
Author Organization [facility] ter Address [address] [place] [address]- Care Team Providers Care Bar Waiter/Waitress Name Role Phone Solis Roman MD Primary Care Physician [phone] Encounter [facility] Date(s): 05/10/23 - 05/12/[address] [address]- Discharge Disposition: A-Transfer VNA/Home Health Attending Physician: Luis Higgins MD Admitting Physician: [...] vaccine, inactivated 03/10/16 Josué rded SARS-CoV-2 mRNA ([id number]) vax 04/08/22 Recorded zoster vaccine, inactivated 11/18/21 Recorded zoster vaccine, inactivated 06/23/20 Recorded SARS-CoV-2 (COVID-19) mRNA BNT-162b2 vac 04/19/21 Recorded SARS-CoV-2 (COVID-19) mRNA-1273 vaccine 09/19/20 G iven SARS-CoV-2 (COVID-19) mRNA-1273 vaccine 08/22/20 G iven pneumococcal 23-valent vaccine 4 04/25/20 Given Influenza Virus Vaccine (oldterm) 03/20/20 Recorde d pneumococcal 13-valent vaccine 03/09/18 Given tetanus/diphtheria/pertussis, acel(Tdap) 5 12/23/16 Given 1Result Comment[facility] 2Result Comment: [id number] 3Result Comment: [03/09/2018] [id number] 4Result Comment: [id number] 5Result Comment: [12/23/2016] given without incident.....vs Medications acetaminophen 325 mg oral tablet 650 mg, By Mouth, Every 6 hours, May take OTC follow directions on bottle not to exceed 3000 mg/day, Refills 0, Maintenance, 05/08/20 7:54:00 EST, Partial fill upon patient request Start Date: 05/08/20 Status: Ordered Acetaminophen Tablet 650 mg, Tablet, By Mouth, 05/12/23 8:00:00 EST Start Date: 05/12/23 Stop Date: 05/12/23 Status: Completed apixaban 2.5 mg oral tablet = 2.5 [...] 90 capsule, 3 Refills, 08/23/22 11:39:00 EST, [facility]/pharmacy#[id number], 160, cm, 08/31/21 15:19:00 EDT, [...] hydrALAZINE 25 mg oral tablet 25 mg, Tablet, By Mouth, 05/12/23 9:00:00 EST Start Date: 05/12/23 Stop Date: 05/12/23 Status: Completed hydrALAZINE 25 mg oral tablet 25 mg, 1, tablet, By Mouth, 2 times a day, # 60 tablet, Refills 11, Tot. Refills 11, Maintenance, 08/13/22 9:21:00 EST, Route to Pharmacy Electronically, [facility]/pharmacy #[id number], Partial fill upon patientrequest if the prescription is for a schedule II op... Start Date: 08/13/22 Status: Ordered hydrochlorothiazide-triamterene 25 mg-37.5 mg oral capsule 1 capsule, By Mouth, Daily, # 90 capsule, 1 Refills, Maintenance, 02/02/23 9:30:00 EDT, [id number], 90, 1 capsule By Mouth Daily, 160, cm, 08/31/21 15:19:00 EDT, Height Start Date: 02/02/23 Status: Ordered metoprolol 50 mg oral tablet, extended release 50 mg, XL Tablet, By Mouth, 05/12/23 9:00:00 EST Start Date: 05/12/23 Stop Date: 05/12/23 Status: Completed Metoprolol Succinate ER 50 mg oral tablet, extended release 1 tablet, By Mouth, Daily, # 90 tablet, 3 Refills, Maintenance, 09/21/22 13:56:00 EDT, [facility]/pharmacy#[id number], 160, cm, 08/31/21 15:19:00 EDT, Height Start Date: 09/21/22 Status: Ordered oxyCODONE 5 mg oral tablet See Instructions, PRN, 1-2 tablets By Mouth Every 4 hours, # 84 tablet, Refills 0, Tot. Refills 0, Acute 05/18/23 8:00:00 EST, Pain , Severe, 05/11/23 8:30:00 EST, Instructions Replace Required Details, Print Requisition, Partial fill upon patient req... Start Date: 05/11/23 Stop Date: 05/18/23 Status: Ordered oxyCODONE 5 mg oral tablet 10 mg, Tablet, By Mouth, Every 4 hours for 7 days, PRN for Pain , Severe, Routine, 05/10/23 8:01:00EST, Stop date 05/17/23 8:00:00 EST Start Date: 05/10/23 Stop Date: 05/13/23 Status: Discontinued pantoprazole 40 mg oral delayed release tablet = 40 mg, By Mouth, Daily, 0 Refills, Maintenance, 05/11/23 8:32:00 EST, EC Tablet Start Date: 05/11/23 Status: Ordered tiZANidine 2 mg oral tablet 4 mg, 2, tablet, By Mouth, Daily at bedtime, # 180 tablet, Refills 3, Tot. Refills 3, Maintenance, 03/15/23 12:53:00 EDT, Route to Pharmacy Electronically, [facility]/pharmacy #[id number], 160, cm, 08/31/21 15:19:00 EDT, Height Start Date: 03/15/23 Stop Date: 03/09/24 Status: Ordered traMADol 50 mg oral tablet See Instructions, PRN Pain , Mild, 1-2 tablets By Mouth Every 6 hours not to exceed 400 mg/day, # 56 tablet, 0 Refills, Acute 05/18/23 8:00:00 EST, 05/11/23 8:30:00 EST, Tablet, [facility], Partial fill upon patient request if the presc... Start Date: 05/11/23 Stop Date: 05/18/23 Status: Ordered traZODone 50 mg oral tablet 1, tablet, By Mouth, Daily at bedtime, # 90 tablet, Refills 3, Maintenance, 05/02/23 21:24:00 EST, Route to [id number], 160, cm, 04/22/23 9:05:00 EDT, Height Start Date: 05/02/23 Status: Ordered valsartan 160 mg oral tablet 320 mg, Tablet, By Mouth, Hold for: SBP less than 130, 05/12/23 9:00:00 EST Start Date: 05/12/23 Stop Date: 05/12/23 Status: Completed valsartan 320 mg oral tablet 1 tablet, By Mouth, Daily, # 90 tablet, 1 Refills, Maintenance, 01/03/23 11:13:00 EDT, [facility]/pharmacy#[id number], 160, cm, 08/31/21 15:19:00 EDT, [...] Venous (Peripheral) Insufficiency, Unspecified Confirmed Active 1initial [place]: 17 on 08/09/14 2initial Oswestry Disability Index: 57% ( severe disability ) on 08/09/14; initial Neck Disability Index: 40% on 08/16/14 3SOAPP-R: 19 ON 08/09/14 4On 05/31/2013 underwent left total knee arthroplasty with computer navigation for osteoarthritis, left knee by Luis Higgins M.D. at [facility]. 5On 09/24/2008 underwent 1. Open decompression right shoulder (acromioplasty, release of coracoacromial ligament). 2. Distal clavicle excision. 3. Repair of massive markedly retracted posterosuperior cuff tear. 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 at [facility]. 6Polysomnogram performed on 08/17/2014 at [facility] revealed 1. Obstructive sleep apnea, moderate 2. Hypoventilation with sleep 7Surgical History Procedure/Surgical Profile 3 level Posterior fusion (92104) in 2013 at 58 Years. Spinal decompression (01045) in 2008 at 53 Years. Laminectomy with exploration and/or decompression of spinal cord and/or cauda equina, without facetectomy, foraminotomy or discectomy (eg, spinal stenosis), 1 or 2 vertebral segments; lumbar, except for spondylolisthesis (51802) in 1996 at 41 Years. SCS trial at [facility] complicated by early lead migration. Never had adequate trial. 8Surgical History Procedure/Surgical Profile 3 level Posterior fusion (63597) in 2013 at 58 Years. Spinal decompression (27589) in 2008 at 53 Years. Laminectomy with exploration and/or decompression of spinal cord and/or cauda equina, without facetectomy, foraminotomy or discectomy (eg, spinal stenosis), 1 or 2 vertebral segments; lumbar, except for spondylolisthesis (11042) in 1996 at 41 Years. SCS trial at [facility] complicated by early lead migration. Never had adequate trial. Results Radiology Reports * Exam Date Time Procedure Performing Provider Status 05/10/23 10:15 AM Pelvis 1 or 2 Views Alfredo Wilkins; [place] (Verified) Notes: (Pelvis 1 or 2 Views) Reason For Exam: Postop Prosthesis RESULT: Pelvis 1 or 2 Views Pelvis 1 or 2 Views INDICATION: Reason: Postop Prosthesis; Clinical Question(s): Status of Hip Prosthesis; Special Instructions: LEFT Hip - To be done in PACU TECHNIQUE: Single AP image. COMPARISON: 05/11/2017. FINDINGS: Satisfactory positioning of the components of the left hip replacement. There is no fracture. IMPRESSION: 1. Satisfactory initial postoperative appearance left hip replacement. 2. No fracture seen. WSN: [id number] Ordering Physician: Ambrose Theodore V Dictated By: Jaskaran Jhaveri MD Dictated Date/Time: 05/10/23 11:36 a Reviewed By: Jaskaran Jhaveir MD Signed By: Jaskaran Jhaveri MD Signed Date/Time: 05/10/23 11:36 am Transcribed By: GRANT Transcribed Date/Time: 05/10/23 11:36 am Vital Signs Most recent to oldest [Reference Range]: 1 2 3 4 Height 157 cm (05/12/23 11:57 AM) 157 cm (05/12/23 6:21 AM) 157 cm (05/12/23 3:52 AM) Weight 86 kg (05/10/23 11:11 AM) 86.0 kg (05/10/23 5:31 AM) Oxygen Saturation [94-100 %] 94 % (05/12/23 11:57 AM) 93 % *L* (05/12/23 6:21 AM) 94 % (05/12/23 3:52 AM) Pulse Rate [55-90 bpm] 88 bpm (05/12/23 11:57 AM) 70 bpm (05/12/23 7:08 AM) 70 bpm (05/12/23 6:21 AM) Body Mass Index [18.5-24.99 kg/m2] 34.89 kg/m2 *>HHI* (05/10/23 11:11 AM) Blood Pressure [90-138/55-84 mm Hg] 107/51mm Hg (05/12/23 11:57 AM) 134/69mm Hg (05/12/23 7:08 AM) 134/69mm Hg (05/12/23 7:08 AM) 134/69mm Hg (05/12/23 7:08 AM) Respiratory Rate [16-30 br/min] 18 br/min (05/12/23 12:30 PM) 18 br/min (05/12/23 12:30 PM) 15 br/min *L* (05/12/23 11:57 AM) Temperature [96.8-100.4 DegF] 98.4 DegF (05/12/23 11:57 AM) 98.1 DegF (05/12/23 6:21 AM) 98.4 DegF (05/12/23 3:52 AM) Liters per Minute 2 L/min (05/10/23 10:15 AM) 2 L/min (05/10/23 10:00 AM) 6 L/min (05/10/23 9:30 AM) Mode of Delivery (Oxygen) Room air (05/12/23 11:57 AM) Room air (05/12/23 6:21 AM) Room air (05/12/23 3:52 AM) Blood pressure sites Arm, left (05/12/23 11:57 AM) Arm, left (05/12/23 6:21 AM) Arm, left (05/12/23 3:52 AM) Temperature Route Oral (05/12/23 11:57 AM) Oral (05/12/23 6:21 AM) Oral (05/12/23 3:52 AM) Dry Weight 86 kg (05/10/23 11:11 AM) 86.0 kg (05/10/23 5:31 AM) Weight Obtained Via Standing scale (05/10/23 11:11 AM) Standing scale (05/10/23 5:31 AM) Dry Weight Obtained Via Standing scale (05/10/23 11:11 AM) Standing scale (05/10/23 5:31 AM) Social History Social History Type Response Smoking Status Former smoker, quit more than 30 days ago entered on: 12/01/18 Sex History and physical note * Event Display: History and Physical Hospital Authored Date: [id number] * Yasmeen CADENA, Judith: MODIFY Event Display: History and Physical Hospital Authored Date: [id number] SURGICAL HISTORY AND PHYSICAL DATE: 05/10/2023 PRIMARY DIAGNOSIS: Osteoarthritis of the left hip. REASON FOR ADMISSION: The patient is being admitted for left total hip arthroplasty with Dr. Villagomez 05/10/2023. HISTORY OF PRESENT ILLNESS: The patient is a 67-year-old female presenting today with left sided hip pain. Her pain has been going on for over a year and has been getting progressively worse. She hastried Tylenol and ibuprofen in order to manage her symptoms unfortunately with minimal effect. She reports significant activity limitations, which include difficulty walking any prolonged distances, pivoting and stairs. She has difficulty getting in and out of the car and chair and transitioning from sit to stand. 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 She had a previous right total knee arthroplasty done with Dr. Higgins in 2019 and a left total knee arthroplasty done with Dr. Higgins in 2012 bothof which are doing well. Patient states that she is now ready for left total hip arthroplasty with Dr. Higgins on 05/10/2023. PAST MEDICAL HISTORY: 1. Osteoarthritis of the left hip. 2. Obesity with BMI of 36.2. 3. Carpal tunnel. 4. History of provoked DVT after right ankle fracture. 5. History of atrial flutter. 6. Venous insufficiency. 7. Anxiety. 8. Depression. 9. Macular degeneration. 10. Tobacco abuse, where the patient smokes 5 cigarettes daily. 11. Obstructive sleep apnea, not on CPAP. 12. Chronic constipation. 13. Failed back syndrome. 14. Hypertension. 15. Chronic lower extremity lymphedema. 16. Hypogammaglobulinemia, status post infusions, which she receives every 4 weeks. 17. History of cellulitis. 18. Chronic allergic rhinitis and hyperactive airways. 19. Myofacial pain. 20. Urinary retention. 21. Peripheral insufficiency. 22. Dry mouth. 23. Chronic daily headaches. PAST SURGICAL HISTORY: 1. Left total knee arthroplasty with Dr. Higgins in 05/2013. 2. Right total knee arthroplasty with Dr. Higgins in 04/2020. 3. Back surgeries x4 in 1995, 2011 and 2013. 4. Shoulder arthroscopy in 2010. 5. Knee arthroscopy in 2012. 6. Atrial flutter ablation in 2018. 7. Tonsillectomy and adenoidectomy. CURRENT MEDICATION LIST: 1. Valsartan 320 mg daily in the morning. 2. Metoprolol extended release 50 mg daily in the morning. 3. Duloxetine 60 mg daily in the morning. 4. Triamterene/hydrochlorothiazide 37.5/25 mg daily in the morning. 5. Aspirin 81 mg daily in the morning. 6. Hydralazine 25 mg b.i.d. 7. Gabapentin 800 mg b.i.d. 8. Doxepin 150 mg daily at bedtime. 9. Trazodone 50 mg daily at bedtime. 10. Tizanidine 2 mg at bedtime. 11. Cevimeline 30 mg as needed for dry mouth, which the patient usually takes twice a day and was instructed to bring it with her to the hospital. 12. Gamunex infusion every 4 weeks. ALLERGIES: The patient has no known drug allergies. SOCIAL HISTORY: The patient is single. She lives at home alone. 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 She will have support of her neighbor postoperatively. She smokes 5 cigarettes daily. She denies any use of tobacco products or illicit drug use. PHYSICIANS: Her primary care provider is Dr. Roman. REVIEW OF SYSTEMS: Negative with exception of HPI. PHYSICAL EXAMINATION: VITAL SIGNS: Height 61.25 inches tall, weight 190 pounds, temperature 96.3, blood pressure 147/86, pulse 62. GENERAL: The patient is alert and oriented. Normal insight, affect, and grooming. HEENT: Normocephalic. Conjunctivae pink. Sclerae are anicteric. SKIN: Intact without rash or lesions. Nails without clubbing or cyanosis. Chronic bilateral lower extremity edema noted for which the patient utilizes Teodoro stockings. NECK: Supple. Trachea midline. No lymphadenopathy. CHEST: Lungs are clear to auscultation bilaterally. Breathing is unlabored. CARDIOVASCULAR: Heart has a regular rate and rhythm with normal S1, S2. No murmurs, rubs or gallopsappreciated. No JVD. Carotid pulses without bruits. ABDOMEN: Soft, nontender with normal bowel sounds. No hepatosplenomegaly or masses noted. No bruitsappreciated. EXTREMITIES: The patient has negative straight leg raise test bilaterally. Bilateral knees with full range of motion, well-healed incision, no pain. Right hip has full range of motion without pain. No trochanteric tenderness. Left hip has limited and painful range of motion with pain referred to the groin and buttock. No trochanteric tenderness. Motor sensation screening is intact. Calves supple and nontender. Ankle motion is satisfactory. Pedal pulse palpable bilaterally. Skin on her feet is intact. PREOPERATIVE DIAGNOSTIC DATA: EKG reads sinus bradycardia with sinus arrhythmia at 57 beats per minute. Orthopedic x-rays demonstrate end-stage osteoarthritis of the left hip. There is [id number] articulation, subchondral sclerosis and osteophyte formation. LABORATORY DATA: CBC and coagulation studies within normal limits. Chemistry panel demonstrates bicarbonate level of 31. A1c 5.7. ASSESSMENT AND PLAN: The patient has advanced osteoarthritis of the left hip and is now scheduled for left total hip arthroplasty with Dr. Higgins on 05/10/2023. The patient was seen by the medical consultative preoperative clinic, who stated that the patient is at low risk for perioperative cardiovascular and pulmonary complications. The patient will receive intraarticular tranexamic acid. She will be on Eliquis 2.5 mg p.o. b.i.d. x30 days for DVT prophylaxis due to the previous history of DVT.The patient will be monitored on telemetry throughout the hospital stay. We will monitor end-tidal CO2 and O2 levels and utilize CPAP postoperatively if needed. The patient wishes to receive nicotinepatch postoperatively. Discharge plans will be to home versus rehabilitation. The patient has been counseled regarding the risks and benefits of proposed surgery. All questions have been answered andshe acknowledges understanding. The patient wished to proceed with surgery and signed consents. Prescriptions for Celebrex, pantoprazole and Colace were given to her at this office visit. The patient will require prescriptions for Eliquis and pain medications upon discharge. She will receive 1 week of in-home physical therapy postoperatively. CONTACTS: Her friend, Arlette with a cell phone number [phone]. Dictated by: Judith Arana N.P. Signing Clinician: Luis Higgins M.D. Dictated: 04/25/2023 01:27:14 Transcribed: 08:17:10 AM Transcribed by: VALERIA DocID: [id number] PRELIMINARY REPORT UNLESS MANUALLY/ELECTRONICALLY SIGNED Note * Colt Mullen RN: PERFORM Event Display: Discharge/Transfer Note Hospital Authored Date: [id number] Nursing Discharge Note Entered On: 05/12/2023 15:27 EST Performed On: 05/12/2023 15:27 EST by Colt Mullen RN Nursing Discharge Note 2 Discharge Time : 05/12/2023 15:25 EST Discharge Level of Care at Discharge : Homehealth/VNA Discharge VNA/Hospice/Home Care(v001) : [facility] [phone] Patient Left Unit Via : Wheelchair Patient Accompanied Off Unit with : Other: transporter DC Instructions Provided & Signed by Pt : Yes Patient Understands D/C Instructions : Yes Patient Instructions Discharge Signed : Yes Did Pt have Specialty Bed or Wound Vac : No Colt Mullen RN - 05/12/2023 15:27 EST * Iris Al RN: PERFORM Event Display: Patient Education/Instruction Authored Date: [id number] Inpatient Adult Discharge Instructions [address] [address] Name: MICHAEL GUTIERREZ : 1955 Visit: 05/10/2023 06:00:00 Current Date: 05/12/2023 10:39 Account: [id number] Inpatient Adult Discharge Instructions We would like to thank you for allowing us to assist you with your healthcare needs. The following includes patient education materials and information regarding your injury/illness. Our entire staffstrives to provide an excellent experience for our patients and their families. PLEASE ENSURE YOU FOLLOW-UP PER THE INSTRUCTIONS BELOW! ?? YOUR OPINION IS IMPORTANT TO US! Please complete the survey you may receive by mail or email. Your feedback will be used to make improvements to the healthcare experiences of our patients and their families. Surveys are administered by [employer] ?? If further treatment with your primary care physician or another doctor is recommended, it is important for you to keep the appointment. Call your primary care physician or return to the Emergency Department immediately if your condition worsens, fails to improve, or new symptoms develop. If you need to find a doctor, you can call [facility] Link for a referral at [phone] or toll free at [phone]) or log in to [email or web address].. ?? [facility], in keeping with [facility] guidance, no longer requires face [...] medical provider or home test kit. ?? You can view and manage your care through the patient portal or by using a health care kirsten of your choosing. [employer] is a website that allows you to securely view your medical information including your hospital discharge summary, office visit summaries, medications and follow-up visits. You can also request appointments, renew medications, and request access to your medical information using a health care kirsten of your choosing, or just ask a question. You can enroll at [email or web address] or register during your next office visit. You have been discharged from [facility], Patient Care Unit: SW7. If you have any questions regarding these instructions after you leave, please call us and we will be happy to assist you. [facility] Your Care Team Attending Physician Luis Higgins MD Consulting Providers You CADENA, Ashlie Brock; Luis Higgins MD Discharging Providers Sharon Crump MD Reason for Admission OA LEFT HIP 23 HR Your Diagnosis Osteoarthritis of hip, left Tests Performed Below is a partial list of the tests performed during your hospitalization. You may have had other tests and procedures not included in this list. Please discuss all test results with your provider. [id number] BUN CBC Creatinine Electrolytes Na Level XR Pelvis 1 or 2 Views Primary Care Provider Solis Roman MD Advance Directive Health Care Proxy on File Yes - Health Care Proxy Discharge Vitals Temperature: 98.1 DegF Height: 157 cm Pulse Rate: 70 bpm Weight: 86 kg Respiratory Rate: 16 br/min Body Mass Index:??34.89 kg/m2??Critical Systolic Blood Pressure: 134 mm Hg Body surface area: 1.94 Systolic Blood Pressure: 134 mm Hg ?? Systolic Blood Pressure: 134 mm Hg ?? Diastolic Blood Pressure: 69 mm Hg ?? Diastolic Blood Pressure: 69 mm Hg ?? Diastolic Blood Pressure: 69 mm Hg ?? Oxygen Saturation:??93 %??Low ?? Studies Pending All tests and labs ordered during this hospital stay have been completed unless listed below. Please discuss all pending results with your provider listed above in these instructions. ?? BUN CBC Creatinine Electrolytes Sodium Level (Na Level) What to do next Instructions From Your Doctor Discharge Orders Scheduled Follow-Up Appointments Tuesday 3:00 PM EST ?? With: Abel OTERO, Solis Li Where: [facility] [address] [place] [address]- Status: Pending You Need to Schedule the Following Appointments Follow Up with??[facility] When:??Within 1 to 2 weeks Discharge Medications MICHAEL GUTIERREZ :1955 Visit Date:05/10/2023 Medications: Please continue your medications until treatment is completed or stopped by your provider. Medications not listed below should be discontinued. Discuss any questions related to medications with your provider. What How Much When Instructions Next Dose New apixaban (apixaban 2.5 mg oral tablet) 2.5 Milligram Oral Twice a day Duration: 30 Days Printed Prescription Tonight before bed 05/12 New Celecoxib (celecoxib 200 mg oral capsule) 200 Milligram Oral Daily Tomorrow morning 05/13 New Docusate (Colace Capsule) 100 Milligram Oral Twice a day as needed for as needed for constipation as needed New Oxycodone (oxyCODONE 5 mg oral tablet) See instructions 1-2 tablets By Mouth Every 4 hours, As needed for Pain , Severe ?? Printed Prescription 10mg -??2 pills - 3pm New Pantoprazole (pantoprazole 40 mg oral delayed release tablet) 40 Milligram Oral Daily Tomorrow morning 05/13 New Tramadol (traMADol 50 mg oral tablet) See instructions 1-2 tablets By Mouth Every 6 hours not to exceed 400 mg/ day, As needed for Pain , Mild ?? Pickup at [facility] As needed - DO NOT TAKE AT SAME TIME OXYCODONE Changed Acetaminophen (acetaminophen 325 mg oral tablet) 650 Milligram Oral Every 6 hours May take OTC follow directions on bottle not to exceed 3000 mg/ day ?? 05/12 5pm Unchanged Cevimeline (cevimeline 30 mg oral capsule) 1 capsule Oral 3 times a day as needed for Other dry mouth ?? NEEDED Unchanged Doxepin (doxepin 150 mg oral capsule) 1 capsule Oral Daily at Bedtime Tonight before bed 05/12 Unchanged Duloxetine (duloxetine 60 mg oral enteric coated capsule) 1 capsule Oral Daily REFILLS GOOD THRU 2023 ?? Tomorrow morning 05/13 Unchanged Gabapentin (gabapentin 800 mg oral tablet) 1 tab(s) Oral Twice a day Tonight before bed 05/12 Unchanged hydrALAZINE (hydrALAZINE 25 mg oral tablet) 1 tab(s) Oral Twice a day Tonight before bed 05/12 Unchanged Hydrochlorothiazide/ Triamterene (hydrochlorothiazide-triamterene 25 mg-37.5 mg oral capsule) 1 capsule Oral Daily Tomorrow morning 05/13 Unchanged Immune Globulin Intravenous (Gamunex) 300 Milligrams/Kilogram Intravenous Infusion every 4 weeks ?? Unchanged Metoprolol (Metoprolol Succinate ER 50 mg oral tablet, extended release) 1 tab(s) Oral Daily Tomorrow morning 05/13 Unchanged Tizanidine (tiZANidine 2 mg oral tablet) 2 tab(s) Oral Daily at Bedtime Duration: 90 Days Tonight before bed 05/12 Unchanged Trazodone (traZODone 50 mg oral tablet) 1 tab(s) Oral Daily at Bedtime Tonight before bed 05/12 Unchanged Valsartan (valsartan 320 mg oral tablet) 1 tab(s) Oral Daily Tomorrow morning 05/13 Pharmacy Information [facility]: [address], [place] [id number] [phone] ?? What How Much When Comments Stop Taking Aspirin (aspirin 81 mg oral capsule) 1 capsule Oral Daily Stop Taking Durable Medical Equipment (Compression Stockings) See instructions Medication: _ Support stockings-Thigh High Custom CC2 Compression factor 30-40 Diagnose lymphoedema?? Stop Taking Miscellaneous Rx (Controlled substance agreement) See instructions controlled substance agreement signed ; preferred pharm:[facility]. dx: failedback sydrome ?? Stop Taking Miscellaneous Rx (Lymphedema clinic referral) See instructions Please eval and treat for bilateral lower extremity edema ?? Test Results Below is a partial list of the most recent Laboratory test results done prior to this discharge. You may have had other tests and procedures not included in this list. Please discuss all test resultswith your provider. Est Creatinine Clearance - 61.98 mL/min (05/12/2023) [id number] (05/10/2023) ? ?Surgical Pathology - Patient Name: MICHAEL GUTIERREZ
Lab
Patient : 1955 (Age: 67)
Collection Date: 05/10/2023
Accession Date: 05/10/2023
Sign Out Date: 05/11/2023

<b r/>Tissue Source:
1:LEFT FEMORAL HEAD

Final Diagnosis:& lt;br/>Femoral head, left, excision:
- Femoral head with degenerative changes of articular cartilaginous surface and eburnation consistent with severe osteoarthritis (gross examination).

Primary Pathologist:Fidel De La Cruz M.D.
electronically signed out by: Fidel De La Cruz M.D. / RUDDY

Gross Description:
Specimen labeled Left femoral head. Received in formalin and consists of a 4.4 x 4.3 x 3.5 cm femoral head with an attached portion of femoral neck that is 1.8 cm in length by 3.2 cm in diameter. The articular surface displays severe pitting, eburnation, and osteophyte formation. Sectioning reveals roberts-white to red, predominantly firm, focally cystic and gelatinous cut surfaces. The articular cartilage ranges from <0.1-0.3 cm thick. No obvious areas of gross necrosis are identified. Additionally received within the specimen container is a 6.3 x 6.3 x 4.7 cm aggregate of roberts-white to yellow, shaggy bone, cartilage, and soft tissue fragments. The specimen is for gross examination only. No microscopic sections are submitted. (LG)*

Phone #: [phone], On-Call Pathologist: &rhiannonp;[id number] BUN (05/12/2023) ???BUN - 11 mg/dL CBC (05/12/2023) ???WBC - 9.9 k/mm3???RBC - 3.80 m/mm3???Hgb - 11.0 Gm/dL???Hct - 33.0 %???MCV - 86.8 femtoliters???MCH - 28.9 pg???MCHC - 33.3 g/dL???Platelet Count - 214 k/mm3???RDW-SD - 43.4 femtoliters???MPV - 10.3 femtoliters???Nucleated RBC (Automated) - 0.0 #/100 WBC'S???Abs. NRBC - 0.0 k/mm3 Creatinine (05/12/2023) ???Creatinine-Blood - 0.7 mg/dL???Estimated GFR Creatinine - 96 ML/MIN/1.73 M2 Electrolytes (05/12/2023) ???Sodium - 132 mmol/L???Potassium - 3.9 mmol/L???Chloride - 95 mmol/L???Bicarbonate Level - 28 mmol/L???Anion Gap - 9 Na Level (05/11/2023) ???Sodium - 129 mmol/L Allergies (NKA means No Known Allergies) NKA Problems Active Problems??(46) Abdominal pain?? Acute radial nerve palsy of right upper extremity ??also ??has moderate ??CTS?? Age-related macular degeneration?? Anxiety?? Atrial flutter ??s/p ablation 09/16/17?? Atrial flutter, paroxysmal?? Buttock pain, left?? Chronic rhinitis allergic rhinitis and ??hyperactive ??airways?? Constipation?? Depression?? Drug or alcohol risk assessment or counseling?? Drug therapy?? DVT, lower extremity peeroneal marysol ?provoked?? Edema?? Ex-cigarette smoker?? Failed back surgical syndrome?? Failed back syndrome?? Headache, chronic daily?? History of lumbar spine surgery s/p lumbar decompression?? History of macular degeneration?? History of total knee replacement, left?? Hypertension?? Hypogammaglobulinemia ??gets monthly infusions?? Knee pain?? Lack of adequate sleep?? Limitation due to disability?? Lumbar spinal stenosis ??L2-3?? Lymphedema?? Macular degeneration of both eyes?? Moderate somatic symptom disorder with predominant pain?? Myofascial pain, diffuse?? Neck pain?? Obese class I?? Obesity?? Obstructive sleep apnea?? Pes planus?? Radicular pain of left lower extremity?? S/p ablation of atrial flutter?? S/P tonsillectomy and adenoidectomy?? Sleep-related hypoventilation?? Somnolence?? Status post arthroscopy of shoulder?? Status post shoulder surgery?? Urinary retention?? Vaginal pain?? Venous (Peripheral) Insufficiency, Unspecified?? Education Materials Below is the list of Educational Leaflet Providered with your Discharge Instructions. Valuables and Belongings I fully understand and agree that [facility] accepts no responsibility for all my personal property including clothing, toilet articles, radios, jewelry, dentures, hearing aids, rings, money, or any other property that is in my possession or is brought to me after admission. I understand certain valuables may be placed in a hospital safe for a short period of time. I understand that the hospital is not liable for loss or damage due to accident, fire, or other natural occurrence while said property is in the safe. I accept full responsibility for any personal property that I keep with me, and will not hold the hospital responsible in case of loss or disappearance. I acknowledge that i have been encouraged to send valuables and belongings home. ?? Review of Valuable and Belonging List: With patient Disposition of Belongings: Other: pacu closet Date for Pt to Sign Valuables/Belongings: 05/10/23 11:19:00 ?? Other Discharge Information ? Case Management Discharge Plan?? Discharge Plan?? Discharge Agency Information?? Discharge Level of Care at Discharge: Homehealth/VNA Service Categories #1: Occupational Therapy, Physical Therapy Discharge VNA/Hospice/Home Care: [facility] [phone] Service Comments #1: [facility] will contact you to set up a visit time after discharge. Please call [phone] if you don't hear from them. ?? Pulmonary Rehab Status?? Pulmonary Rehab Discharge Status?? Respiratory Rate: 16 br/min ? Common Emergency Awareness Tips IS IT A [...] are strongly encouraged to quit. Please call [facility] [employer] [facility] at [phone] or [phone] ([phone]) or log in to [email or web address] for referrals to smoking cessation programs. ?? 907 Suicide & Crisis Lifeline is available 10/01 if you or someone you know needs to find a reason to keep living. By calling 432 you'll be connected to a skilled, trained counselor at a crisis center in your area. INPATIENT DISCHARGE INSTRUCTIONS SIGNATURE PAGE MICHAEL GUTIERREZ Location:[facility] Registration Date and Time:05/10/2023 06:00 EST Primary Care Physician: Abel OTERO, Solis Li, Attending Physician: Gisela OTERO, Luis Goodwin, I MICHAEL GUTIERREZ, have received the above patient education materials/instructions and have verbalized understanding. If ambulance or transport services are being used I further acknowledge being given a choice of service. ?? If you need to contact me, please call me at this number: . Patient/Hand Scudder Name: Patient/Hand Scudder Signature: Relationship to Patient: Witness Name/Signature: Date: * Event Display: Lab Data & Pts Medical History Authored Date: * Event Display: Adult Preadmission Health Questionnaire Authored Date: * Sharon Crump MD: SIGN Theron OTERO, Sharon: SIGN, MODIFY Sharon Crump MD: MODIFY, SIGN, VERIFY Event Display: Discharge/Transfer Note Hospital Authored Date: Patient: MICHAEL GUTIERREZ Age: 67 years Sex: Female : 1955 Associated Diagnoses: None Author: You CADENA, Ashlie Brock Discharge Summary Admission Date: 05/10/2023 Discharge Date: 05/11/2023 Admitting Diagnosis: Left hip osteoarthritis Discharge Diagnosis: Left hip osteoarthritis Final Diagnosis : Left hip osteoarthritis Procedure: Left total hip arthroplasty Surgeon: Dr. Luis Higgins Past Medical History: 1. Osteoarthritis of the left hip. 2. Obesity with BMI of 36.2. 3. Carpal tunnel. 4. History of provoked DVT after right ankle fracture. 5. History of atrial flutter. 6. Venous insufficiency. 7. Anxiety. 8. Depression. 9. Macular degeneration. 10. Tobacco abuse, where the patient smokes 5 cigarettes daily. 11. Obstructive sleep apnea, not on CPAP. 12. Chronic constipation. 13. Failed back syndrome. 14. Hypertension. 15. Chronic lower extremity lymphedema. 16. Hypogammaglobulinemia, status post infusions, which she receives every 4 weeks. 17. History of cellulitis. 18. Chronic allergic rhinitis and hyperactive airways. 19. Myofacial pain. 20. Urinary retention. 21. Peripheral insufficiency. 22. Dry mouth. 23. Chronic daily headaches. Orthopedics: The patient is status post left total hip arthroplasty. It is anticipated that they will be discharged home today pending PT, OT clearance. The patient is doing well from a surgical standpoint. The incision is healing well. Neurovascular status is intact. Calves are supple and nontender. Making good progress with Physical Therapy and Occupational therapy. Supervision with ambulation walking 25 feet , ambulating with a walker. Pain is well controlled on their current regimen, Acetaminophen 650 mg every 6 hours, Celebrex 200mg PO QD, tramadol 50-100mg PO q 6 hrs as needed and Oxycodone 5-10 mg every 4 hours as needed. Patient is tolerating this well. They will be sent home with a prescription for this medication. Prescription: Tramadol 50 mg tablet. Take 1-2 tablets every 6 hours as needed for pain x 7 days. # 56 tablet. Oxycodone IR 5mg tablet. Take 1-2 tablets every 4 hours as needed for pain x 7 days. # 84 tablet. Hospital course: Relatively uneventful medically. The patient denies any nausea/vomiting. AM NA level 127. Patient had been started on IVF overnight for concern of low urine output. Patient now voiding spontaneously with purewick. IVF fluids stopped and patient had been taking in large amounts PO fluids due to dry mouth. Patient instructed to limit PO fluid intake this AM and will recheck NA level. Pain is controlled now. Patient is voiding spontaneously. + bowel sounds. No other issues. No calf tenderness. Current Medication List: Acetaminophen (acetaminophen 325 mg oral tablet) 650 Milligram By Mouth Every 6 hours May take OTC follow directions on bottle not to exceed 3000 mg/day apixaban (apixaban 2.5 mg oral tablet) 2.5 Milligram By Mouth 2 times a day for 30 Days Celecoxib (celecoxib 200 mg oral capsule) 200 Milligram By Mouth Daily Cevimeline (cevimeline 30 mg oral capsule) 1 capsule 30 Milligram By Mouth 3 times a day as needed Other dry mouth Docusate (Colace Capsule) 100 Milligram 1 capsule By Mouth 2 times a day as needed as needed for constipation Doxepin (doxepin 150 mg oral capsule) 1 capsule By Mouth Daily at bedtime Duloxetine (duloxetine 60 mg oral enteric coated capsule) 1 capsule By Mouth Daily REFILLS GOOD THRU 07/2023 Gabapentin (gabapentin 800 mg oral tablet) 1 tab(s) 800 Milligram By Mouth 2 times a day hydrALAZINE (hydrALAZINE 25 mg oral tablet) 25 Milligram 1 tablet By Mouth 2 times a day Hydrochlorothiazide/Triamterene (hydrochlorothiazide-triamterene 25 mg-37.5 mg oral capsule) 1 capsule By Mouth Daily Immune Globulin Intravenous (Gamunex) 300 Milligrams/Kilogram IV Infusion every 4 weeks Metoprolol (Metoprolol Succinate ER 50 mg oral tablet, extended release) 1 tab(s) By Mouth Daily Oxycodone (oxyCODONE 5 mg oral tablet) See Instructions as needed 1-2 tablets By Mouth Every 4 hours Pain , Severe Pantoprazole (pantoprazole 40 mg oral delayed release tablet) 40 Milligram By Mouth Daily Tizanidine (tiZANidine 2 mg oral tablet) 4 Milligram 2 tablet By Mouth Daily at bedtime for 90 Days Tramadol (traMADol 50 mg oral tablet) See Instructions as needed Pain , Mild 1-2 tablets By Mouth Every 6 hours not to exceed 400 mg/day Trazodone (traZODone 50 mg oral tablet) 1 tablet By Mouth Daily at bedtime Valsartan (valsartan 320 mg oral tablet) 1 tab(s) By Mouth Daily Allergies: Allergies (Active and Proposed Allergies Only) NKA (Severity: Unknown severity, Onset: Unknown) Current Labs: Last 24 Hours Basic Metabolic Panel: Hematology: Sodium: 127 mmol/L (05/11/23) Hgb: 11.3 Gm/dL (05/11/23) Potassium (POC): 4.0 mmol/L (05/11/23) Hemoglobin A1C (Monitoring): ------ Phosphorus: ------ WBC: 13.3 k/mm3 (05/11/23) Magnesium: ------ Platelets: 213 k/mm3 (05/11/23) BUN (POC) POC Cartridge: 16 mg/dL (05/11/23) INR Level: ------ Creatinine-Blood: 0.8 mg/dL (05/11/23) Creatinine Clearance: ------ Additional - Last 24 Hours Abs. NRBC: 0.0 k/mm3 (05/11/23) Anion Gap: 7 (05/11/23) Bicarbonate Level: 29 mmol/L (05/11/23) BUN: BUN (05/11/23) Chloride: 91 mmol/L (05/11/23) Creatinine, Blood: Creatinine, Blood (05/11/23) Est Creatinine Clearance: 54.24 (05/11/23) Estimated GFR Creatinine: 77 ML/MIN/1.73 M2 (05/11/23) Hct: 34.3 % (05/11/23) MCH: 28.8 pg (05/11/23) MCHC: 32.9 g/dL (05/11/23) MCV: 87.5 femtoliters (05/11/23) MPV: 10.2 femtoliters (05/11/23) Nucleated RBC (Automated): 0.0 #/100 WBC'S (05/11/23) RBC: 3.92 m/mm3 (05/11/23) RDW-SD: 43.8 femtoliters (05/11/23) DVT prophylaxis Eliquis 2.5 mg p o bid x 30 days Disposition: Anticipates being discharged today to home with [facility]. Follow up at [facility] in 2 weeks , patient is aware of this. The patient has an aquacel dressing in place. They may shower with it and the dressing can be discontinued on POD 14. Discharge Information Admission Date: 05/10/2023 Principal Discharge Diagnosis Discharge Plan Discharge Disposition Discharge: home with VNA. Home Health Face to Face I certify that this patient is under my care and that I or an allowed non- physician practitioner working with me, had a [id number] encounter with the patient on this date: 05/11/2023. The encounter with the patient was in whole, or in part, for the following medical condition, whichis the primary reason for home health care: Osteoarthritis of hip, left. Physical Therapy: Functional mobility training, Home exercise program to strengthen, increase ROM, Falls prevention training. Occupational Therapy: ADL Management, Fall prevention training, Energy conservation. Homebound due to: Inability to leave home without assistance/supervision, Inability to ambulate without assistance, Pain, decreased strength, and endurance. Physician Signature: Gisela OTERO, Luis Cortes * Sharon Crump MD: PERFORM Event Display: Discharge/Transfer Note Hospital Authored Date: Patient will be discharged to home on 05/12/23 if cleared by PT/OT. Cardiology * Event Display: Cardiac Rhythm Strips Authored Date: * Event Display: Cardiac Rhythm Strips Authored Date: * Event Display: Cardiac Rhythm Strips Authored Date: Hospital Progress note * Iris Al RN: VERIFY, PERFORM, SIGN Event Display: Progress Note Hospital Authored Date: Patient: MICHAEL GUTIERREZ Age: 67 years Sex: Female : 1955 Associated Diagnoses: None Author: Mikaela ZENDEJAS, Iris Findings Problem Related to Alteration in Comfort 05/12/2023 8:00 EST Alteration in Comfort Related to Surgery, Other: Left total hip Dr. Higgins POD#2 05/10 Goals & Outcomes: Comfort Pt will report acceptable level of comfort & pain control, Pt will state importance of adhering to pain strategy regime, Pt will demonstrate necessary skills to manage pain, Non-verbal indicators will indicate comfort/pain control Interventions Implemented: Comfort Assess pain using appropriate pain scale/tools, Assess aggravating factors & prevent them accordingly, Assess alleviating factors & promote them accordingly Goals/Interventions, Comfort Yes Comfort, Problem Start 05/11/2023 21:00 Reviewed plan with, Comfort Patient Patient Progression, Comfort Pt progressing according to plan Comfort, Problem Ongoing Yes . Alteration in Musculoskeletal : Alteration in Musculoskeletal Func/new 05/12/2023 8:00 EST Alteration in Musculoskeletal Related to Mobility, Orthopedic Procedure, Total joint replacement, Other: L THR by Dr. Higgins on 05/10/23 Goals & Outcomes, Musculoskeletal Affected extremity will maintain color/motion/sensation, Pt able to perform ADL's to best of ability, Pt demonstrates precautions/exercise/ transfers per protocol, Pt will ambulate safely with assistive device, Pt will be free from complications of immobility, Pt will demonstrate ability to participate in ADL's, Pt will report acceptable level of comfort/painrelief Interventions, Musculoskeletal Monitor patients ambulation status, monitor Color/Motion/Sensation, Assist with repositioning, Obtain assistive devices as needed, Teach & Encourage use of Incentive spirometer, Teach Pt/caregiver on ADL's & adaptive equipment, Teach Pt/caregiver on exercises,Teach pt/caregiver on use of pain scale, Teach Pt/caregiver complications of immobility, Teach Pt/caregiver techniques to increase mobility Goals/Interventions, Musculoskeletal Yes Musculoskeletal, Problem Start 05/10/2023 11:00 Reviewed Plan with, Musculoskeletal Patient Patient Progression, Musculoskeletal Pt progressing according to plan . Nursing Data Vital Signs : VITAL SIGNS SECTION 05/12/2023 6:21 EST Temperature 98.1 DegF Temperature Route Oral Pulse Rate 70 bpm Respiratory Rate 16 br/min Systolic Blood Pressure 134 mm Hg Diastolic Blood Pressure 69 mm Hg Blood pressure sites Arm, left Mean Arterial Pressure 91 mm Hg Pulse Pressure 65 mm Hg Oxygen Saturation 93 % L Mode of Delivery (Oxygen) Room air . Narrative/Incidental A+Ox4. Pleasant and cooperative with care. POD #[address] Higgins. Aqaucel C/D/I. A block in place when sitting. Instructed on the importance of hip precautions. pt is 1a OOB with walker. pt is stating 5/10 pain. Oxy 10mg and gabapentin given for pain management. monitoring coordinator - NSR 60's-70's. eliquis for DVT prophylaxsis. NA this morning 132. Fluid restriction in place 1,500mL/day. pt is on reg diet, +BS, passing flatus, BM 05/09, miralax and docusate given. LS clear. Pt denies SOB, chest pain, N/V. Pt passed PT/OT this morning. Plan is to D/C today. pt is resting in chair with call [place] and tray table within reach. No further issues at this time. . Discharge Information Case Management Discharge Plan : Case Management Discharge Plan Data 05/10/2023 15:17 EST Discharge Level of Care at Discharge Homehealth/VNA Discharge VNA/Hospice/Home Care [facility] [phone] Service Categories #1 Occupational Therapy, Physical Therapy Service Comments #1 [facility] will contact you to set up a visit time after discharge. Please call [phone] if you don't hear from them. Rehabilitation Discharge : Rehab Discharge Index 05/11/2023 14:09 EST Walker: distance >50 05/11/2023 12:21 EST Transfer tub/shower OT Plan Supervision 05/11/2023 8:22 EST Walker: distance >50 05/11/2023 8:03 EST Transfer tub/shower OT Plan Supervision 05/10/2023 16:05 EST Comments on treatment indicated OT to address ADL's, transfers, safety, AE edu, precautions Full chart review completed Yes Hospital course PROCEDURE: Pt s/p left total hip arthroplasty with Dr. Higgins on 05/10/2023. Transfer tub/shower OT Plan Supervision 05/10/2023 14:15 EST Comments on treatment indicated 67 yo F s/p L CHARU with Dr. Tolbert on 05/10/23. LLE WBAT with posterior THPs. Skilled PT for transfers, gait with RW, stairs, therex. Rec home with services. Walker: distance 20-50 Distance pt will ambulate 100 ft with RW Full chart review completed Yes Hospital course Hospital course Other findings see comment Plan of care PT Gait training, Transfer training, Therapeutic exercise, Functional Activities, Balance training, Neuromuscular education * Sharon Crump MD: PERFORM Event Display: Progress Note Hospital Authored Date: [id number] POD # 2 s/p left CHARU S- pt seen at bedside, no c/o n/v/cp/sob, patient reports no pain but is having some difficulty with physical therapy. Also reports some minor right calf pain which she believes might be positional. O- afeb 98.1, pulse 70, respiratory rate 16, BP 134/69 gen-NAD Left LE- dsg c/d/i, +EHL, FHL, TA. toes wwp, nl sens plant/dors/1dws, no calf tenderness, labs- wbc 9.9, Hb/Hct 11/33, Na 132 K 3.9 A/ POD # 2 s/p left CHARU doing well P/ pain control WBAT, posterior hip precautions PT/OT dvt ppx-Eliquis d/c plan-Home today if clears PT Mild right calf pain concerns discussed with nursing. Will reassess and may require ultrasound to rule out blood clot if calf pain persists or other signs of clot present. * Angie Romero RN: SIGN, VERIFY, PERFORM Event Display: Progress Note Hospital Authored Date: [id number] Patient: MICHAEL GUTIERREZ Age: 67 years Sex: Female : 1955 Associated Diagnoses: None Author: Angie Romero RN Findings Problem Related to Alteration in Comfort 05/11/2023 21:00 EST Alteration in Comfort Related to Surgery, Other: Left total hip Dr. Higgins POD#0 05/10 Goals & Outcomes: Comfort Pt will report acceptable level of comfort & pain control, Pt will state importance of adhering to pain strategy regime, Pt will demonstrate necessary skills to manage pain, Non-verbal indicators will indicate comfort/pain control Interventions Implemented: Comfort Assess pain using appropriate pain scale/tools, Assess aggravating factors & prevent them accordingly, Assess alleviating factors & promote them accordingly BH Goals/Interventions, Comfort Yes Comfort, Problem Start 05/11/2023 21:00 Reviewed plan with, Comfort Patient Patient Progression, Comfort Pt progressing according to plan Comfort, Problem Ongoing Yes . Alteration in Musculoskeletal : Alteration in Musculoskeletal Func/new 05/11/2023 21:00 EST Alteration in Musculoskeletal Related to Mobility, Orthopedic Procedure, Totaljoint replacement, Other: L THR by Dr. Higgins on 05/10/23 Goals & Outcomes, Musculoskeletal Affected extremity will maintain color/motion/sensation, Pt able to perform ADL's to best of ability, Pt demonstrates precautions/exercise/ transfers per protocol, Pt will ambulate safely with assistive device, Pt will be free from complications of immobility, Pt will demonstrate ability to participate in ADL's, Pt will report acceptable level of comfort/painrelief Interventions, Musculoskeletal Monitor patients ambulation status, monitor Color/Motion/Sensation, Assist with repositioning, Encourage deep breathing & coughing exercises, Teach & Encourage use of Incentive spirometer, Teach Pt/caregiver on exercises, Teach pt/caregiver on use of pain scale, Teach Pt/caregiver complications of immobility, Teach Pt/caregiver techniques to increase mobility, Teach Pt/caregiver on safety precautions, Incision care as ordered BH Goals/Interventions, Musculoskeletal Yes Musculoskeletal, Problem Start 05/10/2023 11:00 Reviewed Plan with, Musculoskeletal Patient Patient Progression, Musculoskeletal Pt progressing according to plan . Nursing Data Cardiac Data. : Cardiac Data. 05/11/2023 20:29 EST Cardiac Rhythm Normal sinus rhythm monitoring analyst Yes Cardiovascular WNL except . Gastrointestinal Data. : Gastrointestinal Data. 05/11/2023 20:29 EST Last Bowel Movement 05/09/2023 GI WNL . Genitourinary Data. : Genitourinary Data. 05/11/2023 20:29 EST WNL . HEENT Data. : HEENT Assessment 05/11/2023 20:29 EST HEENT, Adult WNL . Integumentary Data. : Integumentary Data. 05/11/2023 21:00 EST Hip Left Lateral Skin Abnormality Type: Surgical incision Wound Assessment Activity: Reassessment Surgical Incision Detailed Assessment: Yes Incision Surgical Detail: Unable to visualize Wound Dressing: Hydrocolloid dressing Wound Dressing Assessment: Clean, Dry, Intact Wound Dressing Activity: Intact . Musculoskeletal Data. : Musculoskeletal Data. 05/11/2023 20:29 EST Musculoskeletal Symptoms Joint stiffness Special Orthopedic Devices Other: A block Musculoskeletal WNL except . Neurological Data. : Neurological Data. 05/11/2023 20:29 EST Stimulation None needed Stimulation None needed Pain Location Hip, left Pain Intensity 4 Pain Intensity 4 Pain Intensity 4 1 - 10 Pain Scale Score 4 Quality Aching Pain Interventions Pharmacological, PRN medication, Ice pack Pain relief acceptable Yes Pain relief acceptable Yes Pain relief acceptable Yes Neuro WNL . Patient Care Data. : Patient Care Data. 05/11/2023 20:29 EST Patient's Stated Goal none stated, maintain comfort and safety Turn and Reposition With partial assist Sequential Compression Device Sequentials on bilaterally TEDS Not indicated/Not ordered ID band on Yes Allergy band in place/verified N/A Blood Pressure/Venipuncture Do not use left leg Call [place] in Reach-Ensure Ability to Use Yes Patient Instructed on Use of Call [place] Yes Standard Safety Bed in low position, Night light, Non-slip footwear, Upper/Half- length side-rails up, Wheels locked Pain system assessment Detailed pain assessment Pain Effects on Appetite Moderate Pain Effects on Concentration Moderate Pain Effects on Daily Life Moderate Pain Effects on Emotions Moderate Pain Effects on Sleep Moderate Pain Aggravating Factors Movement Pain Alleviating Factors Cold therapy, Medication Quality Aching Behavioral indicators Facial expression Fall Elimination No impairment Fall Agitation/Anxiety/Depression No impairment Fall Related Sign/Symptom/Condition None Fall Cognitive Limitations No impairment Fall Sensory and Physical Function Requires Staff Assistance with Transfer, Requires the Use of an Assistive Device Plan: Fall Sensory and Physical Function Encourage safe activities to maintain strength & mobility, Perform strengthening exercises with the patient, Monitor patient's progress with physical activities, Educate patient how to use mobility aids safely Fall High Risk for Injury None of the above Total Falls Risk Score 6 Fall Risk Level High Risk Falls Prevention Plan for High Risk Fall risk decal outside of patient's room, Activate yellow iDome light, Apply yellow high fall risk wrist band to wrist, Ensure patient has yellow non-skid slippers, Supervise patient in the bathroom & shower, Evaluate footwear & ensure patient has non-skid slippers, Bed in lowest locked position, Provide patient/family falls prevention education, Place personal care items & call [place] within reach, Instruct patient/family to request assistance with ambulatio, Instruct patient/family not to get up without assistance, Supervise the patient when ambulating or making transfers, Check that needs are met to minimize attempts to get up, Hourly rounds, Ensure safe & uncluttered environment, Communicate falls risk to all providers . Respiratory/Pulmonary Data. 05/11/2023 20:29 EST Respiratory Treatment(s) Cough and deep breathe, Incentive spirometry Respiratory WNL . Vital Signs : VITAL SIGNS SECTION 05/11/2023 18:35 EST Temperature 98.1 DegF Temperature Route Oral Pulse Rate 66 bpm Respiratory Rate 18 br/min Systolic Blood Pressure 129 mm Hg Diastolic Blood Pressure 66 mm Hg Blood pressure sites Arm, left Mean Arterial Pressure 87 mm Hg Pulse Pressure 63 mm Hg Oxygen Saturation 95 % Mode of Delivery (Oxygen) Room air . Pain Data : PAIN SECTION 05/11/2023 20:29 EST Pain Location Hip, left Pain Intensity 4 Pain Intensity 4 Pain Intensity 4 1 - 10 Pain Scale Score 4 Pain relief acceptable Yes Pain relief acceptable Yes Pain relief acceptable Yes . Evaluation Left THR 05/[address]gins,patient is alert and oriented x4,on tele-NSR,HR 60's,LS clear,no SOB,encouraged use of IS,patient refused CPAP,doesn't use at home,abdomen SNT,(+) BS,denies nausea,onfluid restrictions 1500cc/day,voiding yellow urine,last BM 05/09,left hip aquacel dressing clean,dry and intact,pain 4/10,on scheduled tylenol and PRN oxy IR with (+) effect,ice pack in place,both legs (+) CMS,(+) D/P flexion,C boots and A block on,OOB with assist,turn and reposition,call [place] within reach,plan is to discharge home once medically cleared.. Patient Care team information Care Team Personnel Name: Luis Combs RN Position: [facility] RN Member Role: Primary Care Nurse Name: Solis Roman MD Position: [facility] Physician - Primary Care Member Role: PCP Address: Address: [address] [place] [address] Adult [place] [address]- Name: Iris Al RN Position: S RN Member Role: Primary Care Nurse Name: Stacie Guardado RN Position: S RN Member Role: Primary Care Nurse Name: Loni Ervin RN Position: S RN Member Role: Primary Care Nurse Name: Tk Mendoza RN Position: S RN Member Role: Primary Care Nurse Care Team Related Persons Name: PATITORANDY Address: [place] [address] Name: ERIN CHATTERJEE Address: home [address] [place] [address] Name: CRISTA WEST Address: home [address] [place] [address]
--- OUTSIDE RECORDS SUMMARY | 2024-01-05 10:25 | XMS_ITS | Continuity of Care Document ---
Author Organization [facility] Address [address] [place] [address]- Care Team Providers Care Pro Shop Attendant Name Role Phone Solis Roman MD Primary Care Physician [facility]21 - 08/10/21 [facility] [address] [place] [address]- Attending Physician: Solis Roman MD Allergies, Adverse [...] tetanus/diphtheria/pertussis, acel(Tdap) 4 12/23/16 Given 1Result Comment: [id number] 2Result Comment: [03/09/2018] [id number] 3Result Comment: [id number] 4Result Comment: [12/23/2016] given without incident.....vs Medications [...] 08/30/14; preferred pharm:[facility]. dx: failed back sydrome, 08/30/14 10:48:33, Compound Start Date: 08/30/14 Status: Ordered doxepin 150 mg oral capsule 1 capsule, By Mouth, Daily at bedtime, # 90 capsule, 3 Refills, [id number], 160, cm, 06/22/21 15:54:00 EST, Height, 86.5, kg, 05/07/20 6:28:00 EST, Dry Weight Start Date: 07/21/21 Status: Ordered duloxetine 60 mg oral enteric coated capsule 1 capsule = 60 mg, By Mouth, Daily, # 30 capsule, 11 Refills, Maintenance, 11/10/20 14:38:00 EDT, Capsule, [facility]/pharmacy #[id number], 160, cm, 05/09/20 16:02:00 EST, Height, 86.5, kg, 05/07/20 6:28:00 EST, Dry Weight Start Date: 11/10/20 Status: Ordered gabapentin 800 mg oral tablet 1 tablet = 800 mg, By Mouth, 3 times a day, # 90 tablet, 11 Refills, Maintenance, 06/06/20 10:19:00EST, Tablet, [facility]/pharmacy #[id number], Partial fill upon patient request if the prescription is for a schedule II opioid drug., 160, cm, 05/09/20 16:02:00 ES... Start Date: 06/06/20 Status: Ordered hydrALAZINE 25 mg oral tablet 25 mg, 1, tablet, By Mouth, 2 times a day, # 60 tablet, Refills 11, Tot. Refills 11, Maintenance, 08/03/21 14:23:00 EST, Route to Pharmacy Electronically, [facility]/pharmacy #[id number], Partial fill upon patient request if the prescription is for a schedule II o... Start Date: 08/03/21 Status: Ordered hydrochlorothiazide-triamterene 25 mg-37.5 mg oral capsule 1 capsule, By Mouth, Daily, # 30 capsule, 11 Refills, Maintenance, 06/22/21 16:39:00 EST, Capsule, [facility]/pharmacy #[id number], d/c hydrochlorothiazide, 1 capsule By [...] tablet, 3 Refills, Maintenance, 06/18/21 14:42:00 EST, [facility]/pharmacy#[id number], 160, cm, 06/18/21 14:17:00 EST, [...] 09/11/20 10:05:00 EDT, Route to Pharmacy Electronically, [id number], 160, cm, 05/09/20 16:02:00 EST, Height, 86.5, kg, 05/07/20 6:28:00 EST, Dry Weight Start Date: 09/11/20 Status: Ordered traZODone 50 mg oral tablet See Instructions, TAKE 1 TABLET BY MOUTH EVERYDAY AT BEDTIME, # 90 tablet, Refills 3, Tot. Refills 3, Maintenance, 08/03/21 14:24:00 EST, Instructions Replace Required Details, Route to Pharmacy Electronically, [facility]/pharmacy #[id number], 160, cm, 08/03/21 14... Start Date: 08/03/21 Status: Ordered valsartan 320 mg oral tablet 1 tablet = 320 mg, By Mouth, Daily, # 90 tablet, 3 Refills, Maintenance, 06/18/21 14:40:00 EST, Tablet, [facility]/pharmacy #[id number], this is a n inrease [...] Venous (Peripheral) Insuffic iency, Unspecified(Confirmed) Active 1initial [place]: 17 on 08/09/14 2initial Oswestry Disability Index: 57% ( severe disability ) on 08/09/14; initial Neck Disability Index: 40% on 08/16/14 3SOAPP-R: 19 ON 08/09/14 4On 05/31/2013 underwent left total knee arthroplasty with computer navigation for osteoarthritis, left knee by Luis Higgins M.D. at [facility]. 5On 09/24/2008 underwent 1. Open decompression right shoulder (acromioplasty, release of coracoacromial ligament). 2. Distal clavicle excision. 3. Repair of massive markedly retracted posterosuperior cuff tear. 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 at [facility]. 6Polysomnogram performed on 08/17/2014 at [facility] revealed 1. Obstructive sleep apnea, moderate 2. Hypoventilation with sleep 7Surgical History Procedure/Surgical Profile 3 level Posterior fusion (53480) in 2013 at 58 Years. Spinal decompression (89396) in 2008 at 53 Years. Laminectomy with exploration and/or decompression of spinal cord and/or cauda equina, without facetectomy, foraminotomy or discectomy (eg, spinal stenosis), 1 or 2 vertebral segments; lumbar, except for spondylolisthesis (45182) in 1996 at 41 Years. SCS trial at [facility] complicated by early lead migration. Never had adequate trial. 8Surgical History Procedure/Surgical Profile 3 level Posterior fusion (90141) in 2013 at 58 Years. Spinal decompression (22805) in 2008 at 53 Years. Laminectomy with exploration and/or decompression of spinal cord and/or cauda equina, without facetectomy, foraminotomy or discectomy (eg, spinal stenosis), 1 or 2 vertebral segments; lumbar, except for spondylolisthesis (44889) in 1996 at 41 Years. SCS trial at [facility] complicated by early lead migration. Never had adequate trial. Vital Signs Most recent to oldest [Reference Range]: 1 2 3 Height 160 cm (08/03/21 2:20 PM) 160 cm (08/03/21 1:56 PM) 160 cm (08/03/21 1:48 PM) Weight 86.4 kg (08/03/21 1:48 PM) Oxygen Saturation [94-100 %] 95 % (08/03/21 1:48 PM) Pulse Rate [55-90 bpm] 65 bpm (08/03/21 1:48 PM) Body Mass Index [18.5-24.99] 33.75 *>HHI* (08/03/21 1:48 PM) Blood Pressure [90-138/55-84 mm Hg] 168/82mm Hg *H* (08/03/21 2:20 PM) 183/97mm Hg *H* (08/03/21 1:56 PM) 190/96mm Hg *H* (08/03/21 1:48 PM) Temperature [96.8-100.4 DegF] 97.2 DegF (08/03/21 1:48 PM) Mode of Delivery (Oxygen) Room air (08/03/21 1:48 PM) Blood pressure sites Arm, left (08/03/21 1:56 PM) Arm, left (08/03/21 1:48 PM) Temperature Route Core (08/03/21 1:48 PM) Weight Obtained Via Standing scale (08/03/21 1:48 PM) Social History Social History Type Response Smoking Status Former smoker, quit more than 30 days ago entered on: 12/01/18 Sex
--- OUTSIDE RECORDS SUMMARY | 2024-01-05 10:25 | XMS_ITS | Continuity of Care Document ---
Author Organization [facility] Address [address] [place] [address]- Care Team Providers Care Reed Press Feeder Name Role Phone Solis Roman MD Primary Care Physician [facility]): 02[facility]23 - 03/03/23 [facility] [address] [place], [place] [address] Allergies, Adverse Reactions, Alerts No Known Allergies Immunizations Given and Recorded Vaccine Date Status Refusal Reason SARS-CoV-2 mRNA ([id number]) vax 04/08/22 Recorded influenza virus vaccine, inactivated [...] tetanus/diphtheria/pertussis, acel(Tdap) 4 12/23/16 Given 1Result Comment: [id number] 2Result Comment: [03/09/2018] [id number] 3Result Comment: [id number] 4Result Comment: [12/23/2016] given without incident.....vs Medications [...] substance agreement signed 08/30/14; preferred pharm:[facility]. dx: failed back sydrome, 08/30/14 10:48:33, Compound Start Date: 08/30/14 Status: Ordered doxepin 150 mg oral capsule 1 capsule, By Mouth, Daily at bedtime, # 90 capsule, 3 Refills, 08/23/22 11:39:00 EST, [facility]/pharmacy#[id number], 160, cm, 08/31/21 15:19:00 EDT, Height Start Date: 08/23/22 Status: Ordered duloxetine 60 mg oral enteric coated capsule 1 capsule, By Mouth, Daily, [facility] 07/2023, # 90 capsule, 3 Refills, 07/27/22 15:27:00 EST, [facility]/pharmacy #[id number], 160, cm, 08/31/21 15:19:00 EDT, Height Start Date: 07/27/22 Status: Ordered gabapentin 800 mg oral tablet 1 tablet = 800 mg, By Mouth, 3 times a day, # 90 tablet, 11 Refills, Maintenance, 11/05/22 13:00:00EDT, Tablet, [facility]/pharmacy #[id number], Partial fill upon patient request if the prescription is for a schedule II opioid drug., 160, cm, 08/31/21 15:19:00 ED... Start Date: 11/05/22 Status: Ordered hydrALAZINE 25 mg oral tablet 25 mg, 1, tablet, By Mouth, 2 times a day, # 60 tablet, Refills 11, Tot. Refills 11, Maintenance, 08/13/22 9:21:00 EST, Route to Pharmacy Electronically, [facility]/pharmacy #[id number], Partial fill upon patientrequest if the prescription is for a schedule II op... Start Date: 08/13/22 Status: Ordered hydrochlorothiazide-triamterene 25 mg-37.5 mg oral capsule 1 capsule, By Mouth, Daily, # 90 capsule, 1 Refills, Maintenance, 02/02/23 9:30:00 EDT, [facility]/pharmacy #[id number], 90, 1 capsule By Mouth [...] tablet, 3 Refills, Maintenance, 09/21/22 13:56:00 EDT, [facility]/pharmacy#2339, 160, cm, 08/31/21 15:19:00 EDT, Height Start Date: 09/21/22 Status: Ordered tiZANidine 2 mg oral tablet 4 mg, 2, tablet, By Mouth, Daily at bedtime, # 180 tablet, Refills 3, Tot. Refills 3, Maintenance, 01/19/22 11:02:00 EDT, Route to Pharmacy Electronically, [facility]/pharmacy #[id number], 160, cm, 08/31/21 15:19:00 EDT, Height, 86.5, kg, 05/07/20 6:28:00 EST, Dry... Start Date: 01/19/22 Stop Date: 01/14/23 Status: Ordered traZODone 50 mg oral tablet See Instructions, TAKE 1 TABLET BY MOUTH EVERYDAY AT BEDTIME, # 90 tablet, Refills 0, Tot. Refills 0, Maintenance, 02/07/23 10:55:00 EDT, Instructions Replace Required Details, Route to Pharmacy Electronically, [facility]/pharmacy #[id number], 160, cm, 08/31/21 15... Start Date: 02/07/23 Status: Ordered valsartan 320 mg oral tablet 1 tablet, By Mouth, Daily, # 90 tablet, 1 Refills, Maintenance, 01/03/23 11:13:00 EDT, [facility]/pharmacy#[id number], 160, cm, 08/31/21 15:19:00 EDT, Height [...] Venous (Peripheral) Insufficiency, Unspecified Confirmed Active 1initial [place]: 17 on 08/09/14 2initial Oswestry Disability Index: [...] History Procedure/Surgical Profile 3 level Posterior fusion (74271) in 2013 at 58 Years. Spinal decompression (98758) in 2008 at 53 Years. Laminectomy with exploration and/or decompression of spinal cord and/or cauda equina, without facetectomy, foraminotomy or discectomy (eg, spinal stenosis), 1 or 2 vertebral segments; lumbar, except for spondylolisthesis (71013) in 1996 at 41 Years. SCS trial at [facility] complicated by early lead migration. Never had adequate trial. 8Surgical History Procedure/Surgical Profile 3 level Posterior fusion (15716) in 2013 at 58 Years. Spinal decompression (91280) in 2008 at 53 Years. Laminectomy with exploration and/or decompression of spinal cord and/or cauda equina, without facetectomy, foraminotomy or discectomy (eg, spinal stenosis), 1 or 2 vertebral segments; lumbar, except for spondylolisthesis (55369) in 1996 at 41 Years. SCS trial at [facility] complicated by early lead migration. Never had adequate trial. Social History Social History Type Response Smoking Status Former smoker, quit more than 30 days ago entered on: 12/01/18 Sex Patient Care team information Care Team Personnel Name: Luis Combs RN Position: S RN Member Role: Primary Care Nurse Name: Solis Roman MD Position: [facility] Physician - Primary Care Member Role: PCP Address: Address: [address] [place] [address] Adult & Pediatric Medicine [place], [place] [address] Name: Loni Ervin RN Position: [facility] RN Member Role: Primary Care Nurse Name: Tk Mendoza RN Position: [facility] RN Member Role: Primary Care Nurse Care Team Related Persons Name: RANDY CAPUTO Address: [place] [address] Name: ERIN CHATTERJEE Address: home [address] [place] [address] Name: CRISTA WEST Address: home [address] [place] [address]
--- OUTSIDE RECORDS SUMMARY | 2024-01-05 10:25 | XMS_ITS | Continuity of Care Document ---
Author Organization [facility] Address [address] [facility] [address] [place] [address]- Care Team Providers Care Employment Law Specialist Name Role Phone Solis Roman MD Primary Care Physician [phone] [facility]counter [facility]s): 03/22[facility]23 - 04/21/23 [facility] [address] [place] [address] [address] [place], [place] [address] Allergies, Adverse Reactions, Alerts No [...] vaccine, inactivated 03/10/16 Josué rded SARS-CoV-2 mRNA ([id number]) vax 04/08/22 Recorded zoster vaccine, inactivated 11/18/21 Recorded zoster vaccine, inactivated 06/23/20 Recorded SARS-CoV-2 (COVID-19) mRNA BNT-162b2 vac 04/19/21 Recorded SARS-CoV-2 (COVID-19) mRNA-1273 vaccine 09/19/20 G iven SARS-CoV-2 (COVID-19) mRNA-1273 vaccine 08/22/20 G iven pneumococcal 23-valent vaccine 4 04/25/20 Given Influenza Virus Vaccine (oldterm) 03/20/20 Recorde d pneumococcal 13-valent vaccine 03/09/18 Given tetanus/diphtheria/pertussis, acel(Tdap) 5 12/23/16 Given 1Result Comment: [facility] 2Result Comment: [id number] 3Result Comment: [03/09/2018] [id number] 4Result Comment: [id number] 5Result Comment: [12/23/2016] given without incident.....vs Medications [...] 0, Maintenance,controlled substance agreement signed 08/30/14; preferred pharm:[facility]. dx: failed back sydrome, 08/30/14 10:48:33, [...] 03/15/23 12:53:00 EDT, [facility] Venous (Peripheral) Insufficiency, Unspecified Confirmed Active 1initial [place]: 17 on 08/09/14 2initial Oswestry Disability Index: 57% ( severe disability ) on 08/09/14; initial Neck Disability Index: 40% on 08/16/14 3SOAPP-R: 19 ON 08/09/14 4On 05/31/2013 underwent left total knee arthroplasty with computer navigation for osteoarthritis, left knee by Luis Higgins M.D. at [facility]. 5On 09/24/2008 underwent 1. Open decompression right shoulder (acromioplasty, release of coracoacromial ligament). 2. Distal clavicle excision. 3. Repair of massive markedly retracted posterosuperior cuff tear. 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 at [facility]. 6Polysomnogram performed on 08/17/2014 at [facility] revealed 1. Obstructive sleep apnea, moderate 2. Hypoventilation with sleep 7Surgical History Procedure/Surgical Profile 3 level Posterior fusion (43034) in 2013 at 58 Years. Spinal decompression (13289) in 2008 at 53 Years. Laminectomy with exploration and/or decompression of spinal cord and/or cauda equina, without facetectomy, foraminotomy or discectomy (eg, spinal stenosis), 1 or 2 vertebral segments; lumbar, except for spondylolisthesis (06792) in 1996 at 41 Years. SCS trial at [facility] complicated by early lead migration. Never had adequate trial. 8Surgical History Procedure/Surgical Profile 3 level Posterior fusion (06540) in 2013 at 58 Years. Spinal decompression (49533) in 2008 at 53 Years. Laminectomy with exploration and/or decompression of spinal cord and/or cauda equina, without facetectomy, foraminotomy or discectomy (eg, spinal stenosis), 1 or 2 vertebral segments; lumbar, except for spondylolisthesis (36165) in 1996 at 41 Years. SCS trial at [facility] complicated by early lead migration. Never had adequate trial. Social History Social History Type Response Smoking Status Former smoker, quit more than 30 days ago entered on: 12/01/18 Sex Patient Care team information Care Team Personnel Name: Luis Combs RN Position: [facility] RN Member Role: Primary Care Nurse Name: Solis Roman MD Position: [facility] Physician - Primary Care Member Role: PCP Address: Address: [address] [place] [address] Adult [place] [address]- Name: Aziza ZENDEJAS, Loni Martinez Position: [facility] RN Member Role: Primary Care Nurse Name: Tk Mendoza RN Position: [facility] RN Member Role: Primary Care Nurse Care Team Related Persons Name: RANDY CAPUTO Address: [place] [address] Name: ERIN CHATTERJEE Address: home [address] [place] [address] Name: CRISTA WEST Address: home [address] [place] [id number]
--- OUTSIDE RECORDS SUMMARY | 2024-01-05 10:25 | XMS_ITS | Continuity of Care Document ---
Author Organization [facility] Address [address] [place] [address]- Care Team Providers Care Industrial Gas Fitter Helper Name Role Phone Solis Roman MD Primary Care Physician Encounter [facility] Date(s): 05/02/23 - 06/01/23 [facility] [address] [place] [address]- Allergies, Adverse Reactions, Alerts No Known Allergies Immunizations Given and Recorded Vaccine Date Status Refusal Reason influenza virus vaccine, inactivated 1 03/16/23 Re corded influenza virus vaccine, inactivated 04/08/22 Josué rded influenza virus vaccine, inactivated 04/19/21 Josué rded influenza virus vaccine, inactivated 2 05/03/19 Gi serafin influenza virus vaccine, inactivated 3 03/09/18 Gi serafin influenza virus vaccine, inactivated 03/10/16 Josué rded SARS-CoV-2 mRNA ([id number]) vax 04/08/22 Recorded zoster vaccine, inactivated 11/18/21 Recorded zoster vaccine, inactivated 06/23/20 Recorded SARS-CoV-2 (COVID-19) mRNA BNT-162b2 vac 04/19/21 Recorded SARS-CoV-2 (COVID-19) mRNA-1273 vaccine 09/19/20 G iven SARS-CoV-2 (COVID-19) mRNA-1273 vaccine 08/22/20 G iven pneumococcal 23-valent vaccine 4 04/25/20 Given Influenza Virus Vaccine (oldterm) 03/20/20 Recorde d pneumococcal 13-valent vaccine 03/09/18 Given tetanus/diphtheria/pertussis, acel(Tdap) 5 12/23/16 Given [facility]Result [facility] 2Result Comment: [id number] 3Result Comment: [03/09/2018] [id number] 4Result Comment: [id number] 5Result Comment: [12/23/2016] given without incident.....vs Medications [...] 90 capsule, 3 Refills, 08/23/22 11:39:00 EST, [facility]/pharmacy#[id number], 160, cm, 08/31/21 15:19:00 EDT, Height Start Date: 08/23/22 Status: Ordered duloxetine 60 mg oral enteric coated capsule 1 capsule, By Mouth, Daily, [facility] 07/2023, # 90 capsule, 3 Refills, 07/27/22 15:27:00 EST, [facility]/pharmacy #[id number], 160, cm, 08/31/21 15:19:00 EDT, Height [...] 08/13/22 9:21:00 EST, Route to Pharmacy Electronically, [facility]/pharmacy #[id number], Partial fill upon patientrequest if the prescription is for a schedule II op... Start Date: 08/13/22 Status: Ordered hydrochlorothiazide-triamterene 25 mg-37.5 mg oral capsule 1 capsule, By Mouth, Daily, # 90 capsule, 0 Refills, Maintenance, 05/29/23 22:06:00 EST, [facility]/pharmacy #[id number], 90, 1 capsule By Mouth Daily, [...] 06/01/23 13:04:00 EST, Route to Pharmacy Electronically, [facility]/pharmacy #[id number], 157, cm, 05/12/23 11:57:00 EST, Height, 86, kg, 05/10/23 11:11:00 EST, Dry... Start Date: 06/01/23 Stop Date: 05/26/24 Status: Ordered traZODone 50 mg oral tablet 1, tablet, By Mouth, Daily at bedtime, # 90 tablet, Refills 3, Maintenance, 05/02/23 21:24:00 EST, Route to Pharmacy Electronically, [facility]ORE [id number], 160, cm, 04/22/23 9:05:00 EDT, Height Start Date: 05/02/23 Status: Ordered valsartan 320 mg oral tablet 1 tablet, By Mouth, Daily, # 90 tablet, 1 Refills, Maintenance, 01/03/23 11:13:00 EDT, [facility]/pharmacy#[id number], 160, cm, 08/31/21 15:19:00 EDT, Height Start [...] Venous (Peripheral) Insufficiency, Unspecified Confirmed Active 1initial [place]: 17 on 08/09/14 2initial Oswestry Disability Index: 57% ( severe disability ) on 08/09/14; initial Neck Disability Index: 40% on 08/16/14 3SOAPP-R: 19 ON 08/09/14 4On 05/31/2013 underwent left total knee arthroplasty with computer navigation for osteoarthritis, left knee by Luis Higgins M.D. at [facility]. 5On 09/24/2008 underwent 1. Open decompression right shoulder (acromioplasty, release of coracoacromial ligament). 2. Distal clavicle excision. 3. Repair of massive markedly retracted posterosuperior cuff tear. 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 at [facility]. 6Polysomnogram performed on 08/17/2014 at [facility] revealed 1. Obstructive sleep apnea, moderate 2. Hypoventilation with sleep 7Surgical History Procedure/Surgical Profile 3 level Posterior fusion (87479) in 2013 at 58 Years. Spinal decompression (78207) in 2008 at 53 Years. Laminectomy with exploration and/or decompression of spinal cord and/or cauda equina, without facetectomy, foraminotomy or discectomy (eg, spinal stenosis), 1 or 2 vertebral segments; lumbar, except for spondylolisthesis (62122) in 1996 at 41 Years. SCS trial at [facility] complicated by early lead migration. Never had adequate trial. 8Surgical History Procedure/Surgical Profile 3 level Posterior fusion (82557) in 2013 at 58 Years. Spinal decompression (77609) in 2008 at 53 Years. Laminectomy with exploration and/or decompression of spinal cord and/or cauda equina, without facetectomy, foraminotomy or discectomy (eg, spinal stenosis), 1 or 2 vertebral segments; lumbar, except for spondylolisthesis (80264) in 1996 at 41 Years. SCS trial at [facility] complicated by early lead migration. [...] Primary Care Member Role: PCP Address: Address: [address] [place] [address] Adult & Pediatric Medicine [place], [place] [address] Name: Iris Al RN Position: S RN Member Role: Primary Care Nurse Name: Stacie Guardado RN Position: [facility] SN RN Member Role: Primary Care Nurse Name: Loni Ervin RN Position: S RN Member Role: Primary Care Nurse Name: Tk Mendoza RN Position: S RN Member Role: Primary Care Nurse Care Team Related Persons Name: RANDY CAPUTO Address: [place] [address] Name: ERIN CHATTERJEE Address: home [address] [place] [address] Name: CRISTA WEST Address: home [address] [place] [address]
--- OUTSIDE RECORDS SUMMARY | 2024-01-05 10:25 | XMS_ITS | Continuity of Care Document ---
Author Organization [facility] Address [address] [place] [address]- Care Team Providers Care Grocery Store Courtesy Clerk Name Role Phone Solis Roman MD Primary Care Physician Encounter [facility] Date(s): 06/21/19 - 08/12/[address] [address]- [facility] Attending Physician: Luis Higgins MD Admitting [...] tetanus/diphtheria/pertussis, acel(Tdap) 3 12/23/16 Given 1Result Comment: [id number] 2Result Comment: [03/09/2018] [id number] 3Result Comment: [12/23/2016] given without incident.....vs Medications [...] 0, Maintenance,controlled substance agreement signed 08/30/14; preferred pharm:[facility]. dx: failed back [...] Route to Pharmacy Electronically, [facility]/pharmacy #[id number], this is an increase, 159, cm, 06/25/19 [...] Venous (Peripheral) Insuffic iency, Unspecified(Confirmed) Active 1initial [place]: 17 on 08/09/14 2initial Oswestry Disability Index: [...] History Procedure/Surgical Profile 3 level Posterior fusion (90663) in 2013 at 58 Years. Spinal decompression (57871) in 2008 at 53 Years. Laminectomy with exploration and/or decompression of spinal cord and/or cauda equina, without facetectomy, foraminotomy or discectomy (eg, spinal stenosis), 1 or 2 vertebral segments; lumbar, except for spondylolisthesis (37045) in 1996 at 41 Years. SCS trial at [facility] complicated by early lead migration. Never had adequate trial. 8Surgical History Procedure/Surgical Profile 3 level Posterior fusion (97045) in 2013 at 58 Years. Spinal decompression (61870) in 2008 at 53 Years. Laminectomy with exploration and/or decompression of spinal cord and/or cauda equina, without facetectomy, foraminotomy or discectomy (eg, spinal stenosis), 1 or 2 vertebral segments; lumbar, except for spondylolisthesis (16029) in 1996 at 41 Years. SCS trial at [facility] complicated by early lead migration. Never had adequate trial. Social History Social History Type Response Smoking Status Former smoker, quit more than 30 days ago entered on: 12/01/18 Sex
--- OUTSIDE RECORDS SUMMARY | 2024-01-05 10:25 | XMS_ITS | Continuity of Care Document ---
Author Organization [facility] Address [address] [place] [address]- Care Team Providers Care Dehydrogenation Converter Operator Name Role Phone Abel OTERO, Solis Li Primary Care Physician Encounter [facility] Date(s): 11/15/19 - 12/15/19 [facility] [address] [place] [address]- [facility] Attending Physician: Admtr, Ar8 Admitting Physician: Admtr, [...] tetanus/diphtheria/pertussis, acel(Tdap) 3 12/23/16 Given 1Result Comment: [id number] 2Result Comment: [03/09/2018] [id number] 3Result Comment: [12/23/2016] given without incident.....vs Medications [...] substance agreement signed 08/30/14; preferred pharm:[facility]. dx: failed back sydrome, 08/30/14 10:48:33, Compound Start Date: 08/30/14 Status: Ordered duloxetine 60 mg oral enteric coated capsule 1 capsule = 60 mg, By Mouth, Daily, # 30 capsule, 11 Refills, Maintenance, 10/15/19 9:12:00 EDT, Capsule, [facility]/pharmacy #[id number], 159, cm, 08/20/19 13:42:00 EST, Height, 93.1, kg, 11/21/18 12:27:00 EDT, Dry Weight Start Date: 10/15/19 Status: Ordered hydrochlorothiazide-triamterene 25 mg-37.5 mg oral capsule 1 capsule, By Mouth, Daily, # 90 capsule, 0 Refills, Maintenance, 11/29/19 9:26:00 EDT, Capsule, [facility]/pharmacy #2339, 1 capsule By Mouth Daily,x90 [...] 06/25/19 13:39:00 EST, Route to Pharmacy Electronically, [facility]/pharmacy #[id number], this is an increase, 159, [...] 10/15/19 9:13:00 EDT, Route to Pharmacy Electronically, [facility]/pharmacy #[id number], 159, cm, 08/20/19 13:42:00EST, Height, [...] Venous (Peripheral) Insuffic iency, Unspecified(Confirmed) Active 1initial [place]: 17 on 08/09/14 2initial Oswestry Disability Index: 57% ( severe disability ) on 08/09/14; initial Neck Disability Index: 40% on 08/16/14 3SOAPP-R: 19 ON 08/09/14 4On 05/31/2013 underwent left total knee arthroplasty with computer navigation for osteoarthritis, left knee by Luis Higgins M.D. at [facility]. 5On 09/24/2008 underwent 1. Open decompression right shoulder (acromioplasty, release of coracoacromial ligament). 2. Distal clavicle excision. 3. Repair of massive markedly retracted posterosuperior cuff tear. 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 at [facility]. 6Polysomnogram performed on 08/17/2014 at [facility] revealed 1. Obstructive sleep apnea, moderate 2. Hypoventilation with sleep 7Surgical History Procedure/Surgical Profile 3 level Posterior fusion (82142) in 2013 at 58 Years. Spinal decompression (46619) in 2008 at 53 Years. Laminectomy with exploration and/or decompression of spinal cord and/or cauda equina, without facetectomy, foraminotomy or discectomy (eg, spinal stenosis), 1 or 2 vertebral segments; lumbar, except for spondylolisthesis (16558) in 1996 at 41 Years. SCS trial at [facility] complicated by early lead migration. Never had adequate trial. 8Surgical History Procedure/Surgical Profile 3 level Posterior fusion (26438) in 2013 at 58 Years. Spinal decompression (80320) in 2008 at 53 Years. Laminectomy with exploration and/or decompression of spinal cord and/or cauda equina, without facetectomy, foraminotomy or discectomy (eg, spinal stenosis), 1 or 2 vertebral segments; lumbar, except for spondylolisthesis (30236) in 1996 at 41 Years. SCS trial at [facility] complicated by early lead migration. Never had adequate trial. Social History Social History Type Response Smoking Status Former smoker, quit more than 30 days ago entered on: 12/01/18 Sex
--- OUTSIDE RECORDS SUMMARY | 2024-01-05 10:25 | XMS_ITS | Continuity of Care Document ---
Author Organization [facility] Address [address] [place] [address]- Care Team Providers Care Chairperson Anesthesiology Name Role Phone Solis Roman MD Primary Care Physician Encounter 05/13/23 - 05/20/23 [facility] [address] [place] [address]- Discharge Disposition: [facility] Allergies, Adverse Reactions, Alerts No Known Allergies Immunizations Given and Recorded Vaccine Date Status Refusal Reason influenza virus vaccine, inactivated 1 03/16/23 Re corded influenza virus vaccine, inactivated 04/08/22 Josué rded influenza virus vaccine, inactivated 04/19/21 Josué rded influenza virus vaccine, inactivated 2 05/03/19 Gi serafin influenza virus vaccine, inactivated 3 03/09/18 Gi serafin influenza virus vaccine, inactivated 03/10/16 Josué rded SARS-CoV-2 mRNA ([id number]) vax 04/08/22 Recorded zoster vaccine, inactivated 11/18/21 Recorded zoster vaccine, inactivated 06/23/20 Recorded SARS-CoV-2 (COVID-19) mRNA BNT-162b2 vac 04/19/21 Recorded SARS-CoV-2 (COVID-19) mRNA-1273 vaccine 09/19/20 G iven SARS-CoV-2 (COVID-19) mRNA-1273 vaccine 08/22/20 G iven pneumococcal 23-valent vaccine 4 04/25/20 Given Influenza Virus Vaccine (oldterm) 03/20/20 Recorde d pneumococcal 13-valent vaccine 03/09/18 Given tetanus/diphtheria/pertussis, acel(Tdap) 5 12/23/16 Given 1[facility] 2Result Comment: [id number] 3Result Comment: [03/09/2018] [id number] 4Result Comment: [id number] 5Result Comment: [12/23/2016] given without incident.....vs Medications [...] 90 capsule, 3 Refills, 08/23/22 11:39:00 EST, [facility]/pharmacy#[id number], 160, cm, 08/31/21 15:19:00 EDT, Height Start Date: 08/23/22 Status: Ordered duloxetine 60 mg oral enteric coated capsule 1 capsule, By Mouth, Daily, [facility] 07/2023, # 90 capsule, 3 Refills, 07/27/22 15:27:00 EST, [facility]/pharmacy #[id number], 160, cm, 08/31/21 15:19:00 [...] 08/13/22 9:21:00 EST, Route to Pharmacy Electronically, [facility]/pharmacy #[id number], Partial fill upon patientrequest if the prescription is for a schedule II op... Start Date: 08/13/22 Status: Ordered hydrochlorothiazide-triamterene 25 mg-37.5 mg oral capsule 1 capsule, By Mouth, Daily, # 90 capsule, 1 Refills, Maintenance, 02/02/23 9:30:00 EDT, [facility]/pharmacy #2339, 90, 1 capsule By Mouth Daily, 160, cm, 08/31/21 15:19:00 EDT, Height Start Date: 02/02/23 Status: Ordered Metoprolol Succinate ER 50 mg oral tablet, extended release 1 tablet, By Mouth, Daily, # 90 tablet, 3 Refills, Maintenance, 09/21/22 13:56:00 EDT, [facility]/pharmacy#2339, 160, cm, 08/31/21 15:19:00 EDT, [...] 03/15/23 12:53:00 EDT, Route to Pharmacy Electronically, [facility]/pharmacy #[id number], 160, cm, 08/31/21 15:19:00 EDT, Height Start Date: 03/15/23 Stop Date: 03/09/24 Status: Ordered traZODone 50 mg oral tablet 1, tablet, By Mouth, Daily at bedtime, # 90 tablet, Refills 3, Maintenance, 05/02/23 21:24:00 EST, Route to Pharmacy Electronically, [facility] STORE [id number], 160, cm, 04/22/23 9:05:00 EDT, Height Start Date: 05/02/23 Status: Ordered valsartan 320 mg oral tablet 1 tablet, By Mouth, Daily, # 90 tablet, 1 Refills, Maintenance, 01/03/23 11:13:00 EDT, [facility]/pharmacy#2339, 160, cm, 08/31/21 15:19:00 EDT, [...] Venous (Peripheral) Insufficiency, Unspecified Confirmed Active 1initial [place]: 17 on 08/09/14 2initial Oswestry Disability Index: [...] History Procedure/Surgical Profile 3 level Posterior fusion (40798) in 2013 at 58 Years. Spinal decompression (82373) in 2008 at 53 Years. Laminectomy with exploration and/or decompression of spinal cord and/or cauda equina, without facetectomy, foraminotomy or discectomy (eg, spinal stenosis), 1 or 2 vertebral segments; lumbar, except for spondylolisthesis (09561) in 1996 at 41 Years. SCS trial at [facility] complicated by early lead migration. Never had adequate trial. 8Surgical History Procedure/Surgical Profile 3 level Posterior fusion (69831) in 2014 at 58 Years. Spinal decompression (32737) in 2008 at 53 Years. Laminectomy with exploration and/or decompression of spinal cord and/or cauda equina, without facetectomy, foraminotomy or discectomy (eg, spinal stenosis), 1 or 2 vertebral segments; lumbar, except for spondylolisthesis (73177) in 1996 at 41 Years. SCS trial at [facility] complicated by early lead migration. Never had adequate trial. Social History Social History Type Response Smoking Status Former smoker, quit more than 30 days ago entered on: 12/01/18 Sex Patient Care team information Care Team Personnel Name: Luis Combs RN Position: [facility] RN Member Role: Primary Care Nurse Name: Solis Roman MD Position: [facility] Physician - Primary Care Member Role: PCP Address: Address: [address] [place] [address] Adult [place] [address]- Name: Irsi Al RN Position: S RN Member Role: Primary Care Nurse Name: Stacie Guardado RN Position: S RN Member Role: Primary Care Nurse Name: Loni Ervin RN Position: S RN Member Role: Primary Care Nurse Name: Tk Mendoza RN Position: S RN Member Role: Primary Care Nurse Care Team Related Persons Name: PATITO RANDY Address: [place] [address] Name: ERIN CHATTERJEE Address: home [address] [place] [id number] Name: CRISTA WEST Address: home [address] [place] [address]
--- OUTSIDE RECORDS SUMMARY | 2024-01-05 10:25 | XMS_ITS | Continuity of Care Document ---
Author Organization [facility] Address [address] [address]- Care Team Providers Care Typing Section Chief Name Role Phone Solis Roman MD Primary Care Physician Encounter [facility] Date(s): 03/11/22 - 04/10/22 [facility] [address] [facility] [address] [place] [address] Attending Physician: AdmMary luciano Admitting Physician: AdmtrMary Referring Physician: Admtr, Ar8 [...] tetanus/diphtheria/pertussis, acel(Tdap) 4 12/23/16 Given 1Result Comment: [id number] 2Result Comment: [03/09/2018] [id number] 3Result Comment: [id number] 4Result Comment: [12/23/2016] given without incident.....vs Medications [...] 0, Maintenance,controlled substance agreement signed 08/30/14; preferred pharm:[facility]. dx: failed back sydrome, 08/30/14 10:48:33, Compound Start Date: 08/30/14 Status: Ordered doxepin 150 mg oral capsule 1 capsule, By Mouth, Daily at bedtime, # 90 capsule, 3 Refills, [facility] 587[facility], 160, cm, 06/22/21 15:54:00 EST, Height, 86.5, kg, 05/07/20 6:28:00 EST, Dry Weight Start Date: 07/21/21 Status: Ordered duloxetine 60 mg oral enteric coated capsule 1 capsule, By Mouth, Daily, # 90 capsule, 3 Refills, [facility], 160, cm, 08/31/21 15:19:00 EDT, Height, 86.5, kg, 05/07/20 6:28:00 EST, Dry Weight Start Date: 10/30/21 Status: Ordered gabapentin 800 mg oral tablet 1 tablet = 800 mg, By Mouth, 3 times a day, # 90 tablet, 11 Refills, Maintenance, 10/05/21 12:46:00EDT, Tablet, [facility]/pharmacy #2339, Partial fill upon patient request if the prescription is for a schedule II opioid drug., 160, cm, 08/31/21 15:19:00 ED... Start Date: 10/05/21 Status: Ordered hydrALAZINE 25 mg oral tablet 25 mg, 1, tablet, By Mouth, 2 times a day, # 60 tablet, Refills 11, Tot. Refills 11, Maintenance, 08/03/21 14:23:00 EST, Route to Pharmacy Electronically, [facility]/pharmacy #2339, Partial fill upon patient request if the prescription is for a schedule II o... Start Date: 08/03/21 Status: Ordered hydrochlorothiazide-triamterene 25 mg-37.5 mg oral capsule 1 capsule, By Mouth, Daily, # 30 capsule, 11 Refills, Maintenance, 06/22/21 16:39:00 EST, Capsule, [facility]/pharmacy #2339, d/c hydrochlorothiazide, 1 capsule By Mouth [...] tablet, 3 Refills, Maintenance, 06/18/21 14:42:00 EST, [facility]/pharmacy#2339, 160, cm, 06/18/21 14:17:00 EST, Height, 86.5, kg, 05/07/20 6:28:00 EST, Dry Weight Start Date: 06/18/21 Status: Ordered tiZANidine 2 mg oral tablet 4 mg, 2, tablet, By Mouth, Daily at bedtime, # 180 tablet, Refills 3, Tot. Refills 3, Maintenance, 01/19/22 11:02:00 EDT, Route to Pharmacy Electronically, [facility]/pharmacy #2339, 160, cm, 08/31/21 15:19:00 EDT, Height, 86.5, kg, 05/07/20 6:28:00 EST, Dry... Start Date: 01/19/22 Stop Date: 01/14/23 Status: Ordered traZODone 50 mg oral tablet See Instructions, TAKE 1 TABLET BY MOUTH EVERYDAY AT BEDTIME, # 90 tablet, Refills 3, Tot. Refills 3, Maintenance, 08/03/21 14:24:00 EST, Instructions Replace Required Details, Route to Pharmacy Electronically, [facility]/pharmacy #2339, 160, cm, 08/03/21 14... Start Date: 08/03/21 Status: Ordered valsartan 320 mg oral tablet 1 tablet = 320 mg, By Mouth, Daily, # 90 tablet, 3 Refills, Maintenance, 06/18/21 14:40:00 EST, Tablet, [facility]/pharmacy #2339, this is a n inrease in dosage, 160, cm, 06/18/21 14:17:00 EST, Height, 86.5, kg, 05/07/20 6:28:00 EST, Dry Weight Start Date: 06/18/21 Status: Ordered Problem List Condition Confirmation Course [...] Venous (Peripheral) Insufficiency, Unspecified Confirmed Active 1initial [place]: 17 on 08/09/14 2initial Oswestry Disability Index: 57% ( severe disability ) on 08/09/14; initial Neck Disability Index: 40% on 08/16/14 3SOAPP-R: 19 ON 08/09/14 4On 05/31/2013 underwent left total knee arthroplasty with computer navigation for osteoarthritis, left knee by Luis Higgins M.D. at [facility]. 5On 09/24/2008 underwent 1. Open decompression right shoulder (acromioplasty, release of coracoacromial ligament). 2. Distal clavicle excision. 3. Repair of massive markedly retracted posterosuperior cuff tear. 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 at [facility]. 6Polysomnogram performed on 08/17/2014 at [facility] revealed 1. Obstructive sleep apnea, moderate 2. Hypoventilation with sleep 7Surgical History Procedure/Surgical Profile 3 level Posterior fusion (91288) in 2013 at 58 Years. Spinal decompression (70509) in 2008 at 53 Years. Laminectomy with exploration and/or decompression of spinal cord and/or cauda equina, without facetectomy, foraminotomy or discectomy (eg, spinal stenosis), 1 or 2 vertebral segments; lumbar, except for spondylolisthesis (21024) in 1996 at 41 Years. SCS trial at [facility] complicated by early lead migration. Never had adequate trial. 8Surgical History Procedure/Surgical Profile 3 level Posterior fusion (57275) in 2013 at 58 Years. Spinal decompression (49285) in 2008 at 53 Years. Laminectomy with exploration and/or decompression of spinal cord and/or cauda equina, without facetectomy, foraminotomy or discectomy (eg, spinal stenosis), 1 or 2 vertebral segments; lumbar, except for spondylolisthesis (33726) in 1996 at 41 Years. SCS trial at [facility] complicated by early lead migration. Never had adequate trial. Social History Social History Type Response Smoking Status Former smoker, quit more than 30 days ago entered on: 12/01/18 Sex Patient Care team information Personnel Name: Abel OTERO, Solis Li Address: Address: [address] [place] [address] Adult & Pediatric Medicine [address]
--- OUTSIDE RECORDS SUMMARY | 2024-01-05 10:25 | XMS_ITS | Continuity of Care Document ---
Author Organization [facility] ter Address [address] [place] [address]- Care Team Providers Care Personnel Placement Specialist Name Role Phone Abel OTERO, Solis Li Primary Care Physician [phone] Encounter [facility] Date(s): 07/11/19 - 08/16/[address] [address]- [facility] Attending Physician: Luis Higgins MD Admitting [...] tetanus/diphtheria/pertussis, acel(Tdap) 3 12/23/16 Given 1Result Comment: [id number] 2Result Comment: [03/09/2018] [id number] 3Result Comment: [12/23/2016] given without incident.....vs Medications [...] agreement signed 08/30/14; preferred pharm:[facility]. dx: failed back [...] 06/25/19 13:39:00 EST, Route to Pharmacy Electronically, [facility]/pharmacy #[id number], this is an increase, 159, cm, 06/25/19 [...] Venous (Peripheral) Insuffic iency, Unspecified(Confirmed) Active 1initial [place]: 17 on 08/09/14 2initial Oswestry Disability Index: 57% ( severe disability ) on 08/09/14; initial Neck Disability Index: 40% on 08/16/14 3SOAPP-R: 19 ON 08/09/14 4On 05/31/2013 underwent left total knee arthroplasty with computer navigation for osteoarthritis, left knee by Luis Higgins M.D. at [facility]. 5On 09/24/2008 underwent 1. Open decompression right shoulder (acromioplasty, release of coracoacromial ligament). 2. Distal clavicle excision. 3. Repair of massive markedly retracted posterosuperior cuff tear. 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 at [facility]. 6Polysomnogram performed on 08/17/2014 at [facility] revealed 1. Obstructive sleep apnea, moderate 2. Hypoventilation with sleep 7Surgical History Procedure/Surgical Profile 3 level Posterior fusion (45600) in 2013 at 58 Years. Spinal decompression (43717) in 2008 at 53 Years. Laminectomy with exploration and/or decompression of spinal cord and/or cauda equina, without facetectomy, foraminotomy or discectomy (eg, spinal stenosis), 1 or 2 vertebral segments; lumbar, except for spondylolisthesis (98770) in 1996 at 41 Years. SCS trial at [facility] complicated by early lead migration. Never had adequate trial. 8Surgical History Procedure/Surgical Profile 3 level Posterior fusion (24002) in 2013 at 58 Years. Spinal decompression (34654) in 2008 at 53 Years. Laminectomy with exploration and/or decompression of spinal cord and/or cauda equina, without facetectomy, foraminotomy or discectomy (eg, spinal stenosis), 1 or 2 vertebral segments; lumbar, except for spondylolisthesis (15612) in 1996 at 41 Years. SCS trial at [facility] complicated by early lead migration. Never had adequate trial. Social History Social History Type Response Smoking Status Former smoker, quit more than 30 days ago entered on: 12/01/18 Sex
--- OUTSIDE RECORDS SUMMARY | 2024-01-05 10:25 | XMS_ITS | Continuity of Care Document ---
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 Name Role Phone Solis Roman MD Primary Care Physician Encounter [facility] Date(s): 04/06/23 - 05/06/23 [facility] [address] [place], [place] [address] Allergies, Adverse Reactions, Alerts No [...] vaccine, inactivated 03/10/16 Josué rded SARS-CoV-2 mRNA ([id number]) vax 04/08/22 Recorded zoster vaccine, inactivated 11/18/21 Recorded zoster vaccine, inactivated 06/23/20 Recorded SARS-CoV-2 (COVID-19) mRNA BNT-162b2 vac 04/19/21 Recorded SARS-CoV-2 (COVID-19) mRNA-1273 vaccine 09/19/20 G iven SARS-CoV-2 (COVID-19) mRNA-1273 vaccine 08/22/20 G iven pneumococcal 23-valent vaccine 4 04/25/20 Given Influenza Virus Vaccine (oldterm) 03/20/20 Recorde d pneumococcal 13-valent vaccine 03/09/18 Given tetanus/diphtheria/pertussis, acel(Tdap) 5 12/23/16 Given [facility]Result [facility] 2Result Comment: [id number] 3Result Comment: [03/09/2018] [id number] 4Result Comment: [id number] 5Result Comment: [12/23/2016] given without incident.....vs Medications acetaminophen 325 mg oral tablet 650 mg, By Mouth, Every 6 hours, May take OTC follow directions on bottle not to exceed 4000 mg/day, Refills 0, Maintenance, 05/08/20 7:54:00 EST, Partial fill upon patient request Start Date: 05/08/20 Status: Ordered aspirin 81 mg oral capsule 1 capsule = 81 mg, By Mouth, Daily, 0 Refills, Maintenance, 05/05/23 13:17:00 EST, Partial fill upon patient request if the prescription is for a schedule II opioid drug. Start Date: 05/05/23 Status: Ordered cevimeline 30 mg oral capsule [...] substance agreement signed 08/30/14; preferred pharm:[facility]. dx: failed back sydrome, 08/30/14 10:48:33, Compound Start Date: 08/30/14 Status: Ordered doxepin 150 mg oral capsule 1 capsule, By Mouth, Daily at bedtime, # 90 capsule, 3 Refills, 08/23/22 11:39:00 EST, [facility]/pharmacy#[id number], 160, cm, 08/31/21 15:19:00 EDT, Height Start Date: 08/23/22 Status: Ordered duloxetine 60 mg oral enteric coated capsule 1 capsule, By Mouth, Daily, [facility] 07/2023, # 90 capsule, 3 Refills, 07/27/22 15:27:00 EST, [facility]/pharmacy #[id number], 160, cm, 08/31/21 15:19:00 EDT, Height [...] 08/13/22 9:21:00 EST, Route to Pharmacy Electronically, [facility]/pharmacy #[id number], Partial fill upon patientrequest if the prescription is for a schedule II op... Start Date: 08/13/22 Status: Ordered hydrochlorothiazide-triamterene 25 mg-37.5 mg oral capsule 1 capsule, By Mouth, Daily, # 90 capsule, 1 Refills, Maintenance, 02/02/23 9:30:00 EDT, [facility]/pharmacy #[id number], 90, 1 capsule By Mouth Daily, [...] tablet, 3 Refills, Maintenance, 09/21/22 13:56:00 EDT, [facility]/pharmacy#[id number], 160, cm, 08/31/21 15:19:00 EDT, Height Start Date: 09/21/22 Status: Ordered tiZANidine 2 mg oral tablet 4 mg, 2, tablet, By Mouth, Daily at bedtime, # 180 tablet, Refills 3, Tot. Refills 3, Maintenance, 03/15/23 12:53:00 EDT, Route to Pharmacy Electronically, [facility]/pharmacy #[id number], 160, cm, 08/31/21 15:19:00 EDT, Height Start Date: 03/15/23 Stop Date: 03/09/24 Status: Ordered traZODone 50 mg oral tablet 1, tablet, By Mouth, Daily at bedtime, # 90 tablet, Refills 3, Maintenance, 05/02/23 21:24:00 EST, Route to Pharmacy Electronically, [facility] STORE [id number], 160, cm, 04/22/23 9:05:00 EDT, Height Start Date: 05/02/23 Status: Ordered valsartan 320 mg oral tablet 1 tablet, By Mouth, Daily, # 90 tablet, 1 Refills, Maintenance, 01/03/23 11:13:00 EDT, [facility]/pharmacy#[id number], 160, cm, 08/31/21 15:19:00 EDT, Height Start [...] Venous (Peripheral) Insufficiency, Unspecified Confirmed Active 1initial [place]: 17 on 08/09/14 2initial Oswestry Disability Index: 57% ( severe disability ) on 08/09/14; initial Neck Disability Index: 40% on 08/16/14 3SOAPP-R: 19 ON 08/09/14 4On 05/31/2013 underwent left total knee arthroplasty with computer navigation for osteoarthritis, left knee by Lius Higgins M.D. at [facility]. 5On 09/24/2008 underwent 1. Open decompression right shoulder (acromioplasty, release of coracoacromial ligament). 2. Distal clavicle excision. 3. Repair of massive markedly retracted posterosuperior cuff tear. 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 at [facility]. 6Polysomnogram performed on 08/17/2014 at [facility] revealed 1. Obstructive sleep apnea, moderate 2. Hypoventilation with sleep 7Surgical History Procedure/Surgical Profile 3 level Posterior fusion (17106) in 2013 at 58 Years. Spinal decompression (47338) in 2008 at 53 Years. Laminectomy with exploration and/or decompression of spinal cord and/or cauda equina, without facetectomy, foraminotomy or discectomy (eg, spinal stenosis), 1 or 2 vertebral segments; lumbar, except for spondylolisthesis (86032) in 1996 at 41 Years. SCS trial at [facility] complicated by early lead migration. Never had adequate trial. 8Surgical History Procedure/Surgical Profile 3 level Posterior fusion (84040) in 2013 at 58 Years. Spinal decompression (26235) in 2008 at 53 Years. Laminectomy with exploration and/or decompression of spinal cord and/or cauda equina, without facetectomy, foraminotomy or discectomy (eg, spinal stenosis), 1 or 2 vertebral segments; lumbar, except for spondylolisthesis (20989) in 1996 at 41 Years. SCS trial at [facility] complicated by early lead migration. Never had adequate trial. Social History Social History Type Response Smoking Status Former smoker, quit more than 30 days ago entered on: 12/01/18 Sex Patient Care team information Care Team Personnel Name: Garret ZENDEJAS, Luis Mckee Position: [facility] RN Member Role: Primary Care Nurse Name: Solis Roman MD Position: [facility] Physician - Primary Care Member Role: PCP Address: Address: [address] [place] [address] Adult [facility] [place] [address]- Name: Loni Ervin RN Position: [facility] RN Member Role: Primary Care Nurse Name: Tk Mendoza RN Position: [facility] RN Member Role: Primary Care Nurse Care Team Related Persons Name: RANDY CAPUTO Address: [place] [address] Name: ERIN CHATTERJEE Address: home [address] [place] [address] Name: CRISTA WEST Address: home [address] [place] [address]
--- OUTSIDE RECORDS SUMMARY | 2024-01-05 10:25 | XMS_ITS | Continuity of Care Document ---
Author Organization [facility] Address [address] [place] [address]- Care Team Providers Care [employer] Principal Name Role Phone Solis Roman MD Primary Care Physician Encounter [facility] Date(s): 07/26/23 - 08/02/23 [facility] [address] [place], [place] [address] Attending Physician: Solis Roman MD Allergies, Adverse [...] vaccine, inactivated 03/10/16 Josué rded SARS-CoV-2 mRNA ([id number]) vax 04/08/22 Recorded zoster vaccine, inactivated 11/18/21 Recorded zoster vaccine, inactivated 06/23/20 Recorded SARS-CoV-2 (COVID-19) mRNA BNT-162b2 vac 04/19/21 Recorded SARS-CoV-2 (COVID-19) mRNA-1273 vaccine 09/19/20 G iven SARS-CoV-2 (COVID-19) mRNA-1273 vaccine 08/22/20 G iven pneumococcal 23-valent vaccine 4 04/25/20 Given Influenza Virus Vaccine (oldterm) 03/20/20 Recorde d pneumococcal 13-valent vaccine 03/09/18 Given tetanus/diphtheria/pertussis, acel(Tdap) 5 12/23/16 Given [facility]: [id number] 3Result Comment: [03/09/2018] [id number] 4Result Comment: [id number] 5Result Comment: [12/23/2016] given without incident.....vs Medications [...] 90 capsule, 3 Refills, 07/26/23 10:44:00 EST, [facility]/pharmacy#[id number], 157, cm, 07/26/23 10:22:00 EST, Height, 86, kg, 05/10/23 11:11:00 EST, Dry Weight Start Date: 07/26/23 Status: Ordered duloxetine 60 mg oral enteric coated capsule 1 capsule, By Mouth, Daily, [facility] 07/2023, # 90 capsule, 3 Refills, 07/26/23 10:44:00 EST, [facility]/pharmacy #[id number], 157, cm, 07/26/23 10:22:00 EST, Height, [...] 3 Refills, Maintenance, 07/26/23 10:42:00 EST, Tablet, [facility]/pharmacy #[id number], Partial fill upon patient request if the prescription is for a schedule II opioid drug., 157, cm, 07/26/23 10:22:00 EST... Start Date: 07/26/23 Stop Date: 07/20/24 Status: Ordered hydrochlorothiazide-triamterene 25 mg-37.5 mg oral capsule 1 capsule, By Mouth, Daily, # 90 capsule, 3 Refills, Maintenance, 07/26/23 10:42:00 EST, [facility]/pharmacy #[id number], 90, 1 capsule By Mouth Daily, 157, cm, 07/26/23 10:22:00 EST, Height, 86, kg, 05/10/23 11:11:00 EST, Dry Weight Start Date: 07/26/23 Status: Ordered Metoprolol Succinate ER 50 mg oral tablet, extended release 1 tablet, By Mouth, Daily, # 90 tablet, 3 Refills, Maintenance, 07/26/23 10:44:00 EST, [facility]/pharmacy#2339, 157, cm, 07/26/23 10:22:00 EST, Height, 86, kg, 05/10/23 11:11:00 EST, Dry Weight Start Date: 07/26/23 Status: Ordered tiZANidine 2 mg oral tablet 4 mg, 2, tablet, By Mouth, Daily at bedtime, # 180 tablet, Refills 3, Tot. Refills 3, Maintenance, 06/01/23 13:04:00 EST, Route to Pharmacy Electronically, [facility]/pharmacy #[id number], 157, cm, 05/12/23 11:57:00 EST, Height, 86, kg, 05/10/23 11:11:00 EST, Dry... Start Date: 06/01/23 Stop Date: 05/26/24 Status: Ordered traZODone 50 mg oral tablet 1, tablet, By Mouth, Daily at bedtime, # 90 tablet, Refills 3, Maintenance, 05/02/23 21:24:00 EST, Route to Pharmacy Electronically, [id number], 160, cm, 04/22/23 9:05:00 EDT, Height Start Date: 05/02/23 Status: Ordered valsartan 320 mg oral tablet See Instructions, TAKE 1 TABLET BY MOUTH EVERY DAY, # 90 tablet, 3 Refills, Maintenance, 07/26/23 10:45:00 EST, [id number], 157, cm, 07/26/23 10:22:00 EST, Height, 86, [...] Venous (Peripheral) Insufficiency, Unspecified Confirmed Active 1initial [place]: 17 on 08/09/14 2initial Oswestry Disability Index: [...] History Procedure/Surgical Profile 3 level Posterior fusion (42952) in 2013 at 58 Years. Spinal decompression (78026) in 2008 at 53 Years. Laminectomy with exploration and/or decompression of spinal cord and/or cauda equina, without facetectomy, foraminotomy or discectomy (eg, spinal stenosis), 1 or 2 vertebral segments; lumbar, except for spondylolisthesis (22790) in 1996 at 41 Years. SCS trial at [facility] complicated by early lead migration. Never had adequate trial. 8Surgical History Procedure/Surgical Profile 3 level Posterior fusion (14915) in 2013 at 58 Years. Spinal decompression (47487) in 2008 at 53 Years. Laminectomy with exploration and/or decompression of spinal cord and/or cauda equina, without facetectomy, foraminotomy or discectomy (eg, spinal stenosis), 1 or 2 vertebral segments; lumbar, except for spondylolisthesis (97501) in 1996 at 41 Years. SCS trial at [facility] complicated by early lead migration. Never had adequate trial. Vital Signs Most recent to oldest [Reference Range]: 1 2 Height 157 cm (07/26/23 10:22 AM) 157 cm (07/26/23 10:09 AM) Weight 86.2 kg (07/26/23 10:09 AM) Oxygen Saturation [94-100 %] 97 % (07/26/23 10:09 AM) Pulse Rate [55-90 bpm] 60 bpm (07/26/23 10:09 AM) Body Mass Index [18.5-24.99 kg/m2] 34.97 kg/m2 *>HHI* (07/26/23 10:09 AM) Blood Pressure [90-138/55-84 mm Hg] 155/ 95mm Hg *H* (07/26/23 10:22 AM) 156/100mm Hg *H* (07/26/23 10:09 AM) Mode of Delivery (Oxygen) Room air (07/26/23 10:09 AM) Blood pressure sites Arm, left (07/26/23 10:22 AM) Social History Social History Type Response Smoking Status Former smoker, quit more than 30 days ago entered on: 12/01/18 Sex Note * Cardinal , Johanna: PERFORM, SIGN, VERIFY Event Display: Patient Education/Instruction Authored Date: [id number] [facility] *No [facility] Clinical Summary Name MICHAEL GUTIERREZ Age 67 Years 1955 PCP Solis Roman MD PCP Visit Date 07/26/2023 09:49:00 Additional Instructions: Scheduled Appointments?? Future Appointments ?*No??[facility] ?[address]??[place],??[place],??[address] ?Phone:??--?Fax:??-- ?Appt. Date:??08/24/2023?10:40 AM ?Scheduled Provider:??Solis Roman MD Follow-Up Instructions ?? Diagnosis Postprocedural hypertension Medications: Please continue your medications until treatment is completed or stopped by your provider. Discuss any questions related to medications with your provider. Medications to Continue Taking That Have Changed [id number], [address] [place] [id number], [phone] - hydrALAZINE (hydrALAZINE 50 mg oral tablet) 1 tab(s) Oral twice a day for 90 Days. Refills: 3. Next Dose: Medications to Continue with No Changes [id number], [address] [place] [id number], [phone] Doxepin (doxepin 150 mg oral capsule) 1 capsule Oral Daily at Bedtime. Refills: 3. Next Dose: Duloxetine (duloxetine 60 mg oral enteric coated capsule) 1 capsule Oral Daily. [facility] 07/2023. Refills: 3. Next Dose: Hydrochlorothiazide/Triamterene (hydrochlorothiazide-triamterene 25 mg-37.5 mg oral capsule) 1 capsule Oral Daily. Refills: 3. Next Dose: Metoprolol (Metoprolol Succinate ER 50 mg oral tablet, extended release) 1 tab(s) Oral Daily. Refills: 3. Next Dose: These medications were not printed or sent to your pharmacy Acetaminophen (acetaminophen 325 mg oral tablet) 650 Milligram Oral every 6 hours. May take OTC follow directions on bottle not to exceed 3000 mg/day. Next Dose: Cevimeline (cevimeline 30 mg oral capsule) 1 capsule Oral 3 times a day as needed Other. dry mouth. Next Dose: Gabapentin (gabapentin 800 mg oral tablet) 1 tab(s) Oral 3 times a day. Next Dose: Immune Globulin Intravenous (Gamunex) 300 Milligrams/Kilogram Intravenous Infusion. every 4 weeks. Next Dose: Tizanidine (tiZANidine 2 mg oral tablet) 2 tab(s) Oral Daily at Bedtime for 90 Days. Refills: 3. Next Dose: Trazodone (traZODone 50 mg oral tablet) 1 tab(s) Oral Daily at Bedtime. Refills: 3. Next Dose: Valsartan (valsartan 320 mg oral tablet) TAKE 1 TABLET BY MOUTH EVERY DAY. Refills: 3. Next Dose: Allergy Info:?? No Known Medication Allergies; NKA Medications Given This Visit Future Orders ?No future orders Vital Signs Height 157 cm Weight 86.2 kg BMI 34.97 kg/m2 Blood Pressure 155 mm Hg/95 mm Hg Temperature Pulse Rate 60 bpm Respiratory Rate 02 Sat Mode of Delivery 97 %/Room air You can now view a summary of your hospital visit from the comfort of your home through a free online portal called [employer]. [employer] is a website that allows you to securely view your medical information including discharge summary, medications and follow-up visits. ??You can alsosend a secure electronic message to your doctor???s office to request appointments, renew medications or just ask a question. You can enroll at [email or web address] or register during your next [...] primary care provider, you may find a [facility] provider by calling [facility] at [phone]. [facility], in keeping with [facility] guidance, no longer requires face masks for [...] your individualized medical care. Additional Provider Instructions: stop the ALEVE increase HYDRALAZINE to 50 mgs twice daily continue the triamterene- hydrochlorothiazide one per day try stopping the tizanidine to see if the dry mouth will improve Patient Care team information Care Team Personnel Name: Luis Combs RN Position: [facility] RN Member Role: Primary Care Nurse Name: Solis Roman MD Position: [facility] Physician - Primary Care Member Role: PCP Address: Address: [address] [place] [address] Adult [place] [address]- Name: Iris Al RN Position: S RN Member Role: Primary Care Nurse Name: Stacie Guardado RN Position: [facility] RN Member Role: Primary Care Nurse Name: Tk Mendoza RN Position: S RN Member Role: Primary Care Nurse Care Team Related Persons Name: PATITO, RANDY Address: [place] [address] Name: ERIN CHATTERJEE Address: home [address] [place] [address] Name: CRISTA WEST Address: home [address] [place] [address]
--- OUTSIDE RECORDS SUMMARY | 2024-01-05 10:25 | XMS_ITS | Continuity of Care Document ---
Author Organization [facility] Address [address] [place] [address]- Care Team Providers Care Forepart Rounder Name Role Phone Solis Roman MD Primary Care Physician [phone] Encounter [facility] Date(s): 07/22/21 - 07/29/21 [facility] [address] [place] [address]- Attending Physician: Solis Roman MD Allergies, Adverse [...] tetanus/diphtheria/pertussis, acel(Tdap) 4 12/23/16 Given 1Result Comment: [id number] 2Result Comment: [03/09/2018] [id number] 3Result Comment: [id number] 4Result Comment: [12/23/2016] given without incident.....vs Medications [...] agreement signed 08/30/14; preferred pharm:[facility]. dx: failed back sydrome, 08/30/14 10:48:33, Compound Start Date: 08/30/14 Status: Ordered doxepin 150 mg oral capsule 1 capsule, By Mouth, Daily at bedtime, # 90 capsule, 3 Refills, [facility] [id number], 160, cm, 06/22/21 15:54:00 EST, Height, 86.5, kg, 05/07/20 6:28:00 EST, Dry Weight Start Date: 07/21/21 Status: Ordered duloxetine 60 mg oral enteric coated capsule 1 capsule = 60 mg, By Mouth, Daily, # 30 capsule, 11 Refills, Maintenance, 11/10/20 14:38:00 EDT, Capsule, [facility]/pharmacy #[id number], 160, cm, 05/09/20 16:02:00 EST, Height, 86.5, kg, 05/07/20 6:28:00 EST, Dry Weight Start Date: 11/10/20 Status: Ordered gabapentin 800 mg oral tablet 1 tablet = 800 mg, By Mouth, 3 times a day, # 90 tablet, 11 Refills, Maintenance, 06/06/20 10:19:00EST, Tablet, [facility]/pharmacy #[id number], Partial fill upon patient request if the prescription is for a schedule II opioid drug., 160, cm, 05/09/20 16:02:00 ES... Start Date: 06/06/20 Status: Ordered hydrochlorothiazide-triamterene 25 mg-37.5 mg oral capsule 1 capsule, By Mouth, Daily, # 30 capsule, 11 Refills, Maintenance, 06/22/21 16:39:00 EST, Capsule, [facility]/pharmacy #[id number], d/c hydrochlorothiazide, 1 capsule [...] tablet, 3 Refills, Maintenance, 06/18/21 14:42:00 EST, [facility]/pharmacy#2339, 160, cm, 06/18/21 14:17:00 [...] 09/11/20 10:05:00 EDT, Route to Pharmacy Electronically, [facility] STORE [id number], 160, cm, 05/09/20 16:02:00 EST, Height, 86.5, kg, 05/07/20 6:28:00 EST, Dry Weight Start Date: 09/11/20 Status: Ordered traZODone 50 mg oral tablet See Instructions, TAKE 1 TABLET BY MOUTH EVERYDAY AT BEDTIME, # 90 tablet, Refills 3, Tot. Refills 3, Maintenance, Instructions Replace Required Details, Route to Pharmacy Electronically, [id number], 160, cm, 05/09/20 16:02:00 EST, Height, 86.5,... Start Date: 08/13/20 Status: Ordered valsartan 320 mg oral tablet 1 tablet = 320 mg, By Mouth, Daily, # 90 tablet, 3 Refills, Maintenance, 06/18/21 14:40:00 EST, Tablet, [facility]/pharmacy #2339, this is a n [...] 09/13/19 Active Status post shoulder surgery(Confirmed) 5 4/7/09 Active Hypertension(Confirmed) Active Hypogammaglobulinemia gets m onthly [...] Venous (Peripheral) Insuffic iency, Unspecified(Confirmed) Active 1initial [place]: 17 on 08/09/14 2initial Oswestry Disability Index: 57% ( severe disability ) on 08/09/14; initial Neck Disability Index: 40% on 08/16/14 3SOAPP-R: 19 ON 08/09/14 4On 05/31/2013 underwent left total knee arthroplasty with computer navigation for osteoarthritis, left knee by Luis Higgins M.D. at [facility]. 5On 09/24/2008 underwent 1. Open decompression right shoulder (acromioplasty, release of coracoacromial ligament). 2. Distal clavicle excision. 3. Repair of massive markedly retracted posterosuperior cuff tear. 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 at [facility]. 6Polysomnogram performed on 08/17/2014 at [facility] revealed 1. Obstructive sleep apnea, moderate 2. Hypoventilation with sleep 7Surgical History Procedure/Surgical Profile 3 level Posterior fusion (53241) in 2013 at 58 Years. Spinal decompression (61887) in 2008 at 53 Years. Laminectomy with exploration and/or decompression of spinal cord and/or cauda equina, without facetectomy, foraminotomy or discectomy (eg, spinal stenosis), 1 or 2 vertebral segments; lumbar, except for spondylolisthesis (40021) in 1996 at 41 Years. SCS trial at [facility] complicated by early lead migration. Never had adequate trial. 8Surgical History Procedure/Surgical Profile 3 level Posterior fusion (78408) in 2013 at 58 Years. Spinal decompression (79622) in 2008 at 53 Years. Laminectomy with exploration and/or decompression of spinal cord and/or cauda equina, without facetectomy, foraminotomy or discectomy (eg, spinal stenosis), 1 or 2 vertebral segments; lumbar, except for spondylolisthesis (12199) in 1996 at 41 Years. SCS trial at [facility] complicated by early lead migration. Never had adequate trial. Vital Signs Most recent to oldest [Reference Range]: 1 Height 160 cm (07/22/21 11:15 AM) Weight 86.3 kg (07/22/21 11:15 AM) Oxygen Saturation [94-100 %] 98 % (07/22/21 11:15 AM) Pulse Rate [55-90 bpm] 61 bpm (07/22/21 11:15 AM) Body Mass Index [18.5-24.99] 33.71 *>HHI* (07/22/21 11:15 AM) Blood Pressure [90-138/55-84 mm Hg] 128/ 80mm Hg (07/22/21 11:15 AM) Temperature [96.8-100.4 DegF] 97.6 DegF (07/22/21 11:15 AM) Mode of Delivery (Oxygen) Room air (07/22/21 11:15 AM) Blood pressure sites Arm, left (07/22/21 11:15 AM) Temperature Route Core (07/22/21 11:15 AM) Social History Social History Type Response Smoking Status Former smoker, quit more than 30 days ago entered on: 12/01/18 Sex
--- OUTSIDE RECORDS SUMMARY | 2024-01-05 10:25 | XMS_ITS | Continuity of Care Document ---
Author Organization [facility] Address [address] [place] [address]- Care Team Providers Care Manufacturing Coordinator Name Role Phone Solis Roman MD Primary Care Physician [phone] Encounter [facility] Date(s): 03/18/23 - 04/17/23 [facility] [address] [place], [place] [address] Allergies, Adverse Reactions, Alerts No [...] vaccine, inactivated 03/10/16 Josué rded SARS-CoV-2 mRNA ([id number]) vax 04/08/22 Recorded zoster vaccine, inactivated 11/18/21 Recorded zoster vaccine, inactivated 06/23/20 Recorded SARS-CoV-2 (COVID-19) mRNA BNT-162b2 vac 04/19/21 Recorded SARS-CoV-2 (COVID-19) mRNA-1273 vaccine 09/19/20 G iven SARS-CoV-2 (COVID-19) mRNA-1273 vaccine 08/22/20 G iven pneumococcal 23-valent vaccine 4 04/25/20 Given Influenza Virus Vaccine (oldterm) 03/20/20 Recorde d pneumococcal 13-valent vaccine 03/09/18 Given tetanus/diphtheria/pertussis, acel(Tdap) 5 12/23/16 Given 1Result Comment: [facility] 2Result Comment: [id number] 3Result Comment: [03/09/2018] [id number] 4Result Comment: [id number] 5Result Comment: [12/23/2016] given without incident.....vs Medications [...] 0, Maintenance,controlled substance agreement signed 08/30/14; preferred pharm:[facility]. dx: failed back sydrome, 08/30/14 10:48:33, Compound Start Date: 08/30/14 Status: Ordered doxepin 150 mg oral capsule 1 capsule, By Mouth, Daily at bedtime, # 90 capsule, 3 Refills, 08/23/22 11:39:00 EST, [facility]/pharmacy#[id number], 160, cm, 08/31/21 15:19:00 EDT, Height Start Date: 08/23/22 Status: Ordered duloxetine 60 mg oral enteric coated capsule 1 capsule, By Mouth, Daily, [employer] 07/2023, # 90 capsule, 3 Refills, 07/27/22 15:27:00 EST, [facility]/pharmacy #2339, 160, cm, 08/31/21 15:19:00 EDT, Height Start Date: 07/27/22 Status: Ordered gabapentin 800 mg oral tablet 1 tablet = 800 mg, By Mouth, 3 times a day, # 90 tablet, 11 Refills, Maintenance, 11/05/22 13:00:00EDT, Tablet, [facility]/pharmacy #[id number], Partial fill upon patient request if the prescription is for a schedule II opioid drug., 160, cm, 08/31/21 15:19:00 ED... Start Date: 11/05/22 Status: Ordered hydrALAZINE 25 mg oral tablet 25 mg, 1, tablet, By Mouth, 2 times a day, # 60 tablet, Refills 11, Tot. Refills 11, Maintenance, 08/13/22 9:21:00 EST, Route to Pharmacy Electronically, [facility]/pharmacy #[id number], Partial fill upon patientrequest if the prescription is for a schedule II op... Start Date: 08/13/22 Status: Ordered hydrochlorothiazide-triamterene 25 mg-37.5 mg oral capsule 1 capsule, By Mouth, Daily, # 90 capsule, 1 Refills, Maintenance, 02/02/23 9:30:00 EDT, [facility]/pharmacy #2339, 90, 1 [...] tablet, 3 Refills, Maintenance, 09/21/22 13:56:00 EDT, [facility]/pharmacy#2339, 160, cm, 08/31/21 15:19:00 EDT, Height Start Date: 09/21/22 Status: Ordered tiZANidine 2 mg oral tablet 4 mg, 2, tablet, By Mouth, Daily at bedtime, # 180 tablet, Refills 3, Tot. Refills 3, Maintenance, 03/15/23 12:53:00 EDT, Route to Pharmacy Electronically, [facility]/pharmacy #[id number], 160, cm, 08/31/21 15:19:00 EDT, Height Start Date: 03/15/23 Stop Date: 03/09/24 Status: Ordered traZODone 50 mg oral tablet See Instructions, TAKE 1 TABLET BY MOUTH EVERYDAY AT BEDTIME, # 90 tablet, Refills 0, Tot. Refills 0, Maintenance, 02/07/23 10:55:00 EDT, Instructions Replace Required Details, Route to Pharmacy Electronically, [facility]/pharmacy #[id number], 160, cm, 08/31/21 15... Start Date: 02/07/23 Status: Ordered valsartan 320 mg oral tablet 1 tablet, By Mouth, Daily, # 90 tablet, 1 Refills, Maintenance, 01/03/23 11:13:00 EDT, [facility]/pharmacy#2339, 160, cm, 08/31/21 15:19:00 EDT, Height [...] Venous (Peripheral) Insufficiency, Unspecified Confirmed Active 1initial [place]: 17 on 08/09/14 2initial Oswestry Disability Index: 57% ( severe disability ) on 08/09/14; initial Neck Disability Index: 40% on 08/16/14 3SOAPP-R: 19 ON 08/09/14 4On 05/31/2013 underwent left total knee arthroplasty with computer navigation for osteoarthritis, left knee by Luis Higgins M.D. at [facility]. 5On 09/24/2008 underwent 1. Open decompression right shoulder (acromioplasty, release of coracoacromial ligament). 2. Distal clavicle excision. 3. Repair of massive markedly retracted posterosuperior cuff tear. 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 at [facility]. 6Polysomnogram performed on 08/17/2014 at [facility] revealed 1. Obstructive sleep apnea, moderate 2. Hypoventilation with sleep 7Surgical History Procedure/Surgical Profile 3 level Posterior fusion (02471) in 2013 at 58 Years. Spinal decompression (14884) in 2008 at 53 Years. Laminectomy with exploration and/or decompression of spinal cord and/or cauda equina, without facetectomy, foraminotomy or discectomy (eg, spinal stenosis), 1 or 2 vertebral segments; lumbar, except for spondylolisthesis (78520) in 1996 at 41 Years. SCS trial at [facility] complicated by early lead migration. Never had adequate trial. 8Surgical History Procedure/Surgical Profile 3 level Posterior fusion (30979) in 2013 at 58 Years. Spinal decompression (84568) in 2008 at 53 Years. Laminectomy with exploration and/or decompression of spinal cord and/or cauda equina, without facetectomy, foraminotomy or discectomy (eg, spinal stenosis), 1 or 2 vertebral segments; lumbar, except for spondylolisthesis (03185) in 1996 at 41 Years. SCS trial at [facility] complicated by early lead migration. Never had adequate trial. Social History Social History Type Response Smoking Status Former smoker, quit more than 30 days ago entered on: 12/01/18 Sex Patient Care team information Care Team Personnel Name: Luis Combs RN Position: [facility] RN Member Role: Primary Care Nurse Name: Solis Roman MD Position: [facility] Physician - Primary Care Member Role: PCP Address: Address: [address] [place] [address] Adult & [place] [address]- Name: Aziza ZENDEJAS, Loni Martinez Position: [facility] RN Member Role: Primary Care Nurse Name: Tk Mendoza RN Position: [facility] RN Member Role: Primary Care Nurse Care Team Related Persons Name: RANDY CAPUTO Address: [place] [address] Name: ERIN CHATTERJEE Address: [address] [place] [address] Name: CRISTA WEST Address: home [address] [place] [id number]
--- OUTSIDE RECORDS SUMMARY | 2024-01-05 10:26 | XMS_ITS | Continuity of Care Document ---
Author Organization [facility] Address [address] [place] [address]- Care Team Providers Care Property Specialist Name Role Phone Solis Roman MD Primary Care Physician Encounter [facility] Date(s): 06/06/20 - 06/13/20 [facility] [address] [place], [place] [address] Attending Physician: Solis Roman MD Allergies, Adverse Reactions, Alerts No Known Medication Allergies Substance Reaction Severity Status NKA Active Immunizations Given and Recorded Vaccine Date Status Refusal Reason pneumococcal 23-valent vaccine 1 04/25/20 Given Influenza Virus Vaccine (oldterm) 03/20/20 Recorde d influenza virus vaccine, inactivated 2 05/03/19 Gi serafin influenza virus vaccine, inactivated 3 03/09/18 Gi serafin influenza virus vaccine, inactivated 03/10/16 Ojsué rded pneumococcal 13-valent vaccine 03/09/18 Given tetanus/diphtheria/pertussis, acel(Tdap) 4 12/23/16 Given 1Result Comment: [id number] 2Result Comment: [id number] 3Result Comment: [03/09/2018] [id number] 4Result Comment: [12/23/2016] given without incident.....vs Medications [...] 3 Refills, Maintenance, 06/06/20 10:17:00 EST, Capsule, [facility]/pharmacy #[id number], do not fill until pt calls, 160, cm, 05/09/20 16:02:00 EST, Height, 86.5, kg, 05/07/20 6:28:00 EST, Dry Weight Start Date: 06/06/20 Status: Ordered duloxetine 60 mg oral enteric coated capsule 1 capsule = 60 mg, By Mouth, Daily, # 30 capsule, 11 Refills, Maintenance, 10/15/19 9:12:00 EDT, Capsule, [facility]/pharmacy #2339, 159, cm, 08/20/19 13:42:00 EST, Height, 93.1, kg, 11/21/18 12:27:00 EDT, Dry Weight Start Date: 10/15/19 Status: Ordered gabapentin 800 mg oral tablet 1 tablet = 800 mg, By Mouth, 3 times a day, # 90 tablet, 11 Refills, Maintenance, 06/06/20 10:19:00EST, Tablet, [facility]/pharmacy #[id number], Partial fill upon patient request if the prescription is for a schedule II opioid drug., 160, cm, 05/09/20 16:02:00 ES... Start Date: 06/06/20 Status: Ordered hydrochlorothiazide 12.5 mg oral tablet 1 tablet = 12.5 mg, By Mouth, Daily, D/C HCTZ/ Triamterene, # 30 tablet, 11 Refills, Maintenance, 04/27/20 11:12:00 EST, Tablet, [facility]/pharmacy #2339, d/c DYAZIDE, 159, cm, 04/25/20 [...] 06/25/19 13:39:00 EST, Route to Pharmacy Electronically, [facility]/pharmacy #[id number], this is an increase, 159, cm, 06/25/19 [...] 10/15/19 9:13:00 EDT, Route to Pharmacy Electronically, [facility]/pharmacy #[id number], 159, cm, 08/20/19 13:42:00EST, Height, [...] Venous (Peripheral) Insuffic iency, Unspecified(Confirmed) Active 1initial [place]: 17 on 08/09/14 2initial Oswestry Disability Index: 57% ( severe disability ) on 08/09/14; initial Neck Disability Index: 40% on 08/16/14 3SOAPP-R: 19 ON 08/09/14 4On 05/31/2013 underwent left total knee arthroplasty with computer navigation for osteoarthritis, left knee by Luis Higgins M.D. at [facility]. 5On 09/24/2008 underwent 1. Open decompression right shoulder (acromioplasty, release of coracoacromial ligament). 2. Distal clavicle excision. 3. Repair of massive markedly retracted posterosuperior cuff tear. 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 at [facility]. 6Polysomnogram performed on 08/17/2014 at [facility] revealed 1. Obstructive sleep apnea, moderate 2. Hypoventilation with sleep 7Surgical History Procedure/Surgical Profile 3 level Posterior fusion (25556) in 2013 at 58 Years. Spinal decompression (17941) in 2008 at 53 Years. Laminectomy with exploration and/or decompression of spinal cord and/or cauda equina, without facetectomy, foraminotomy or discectomy (eg, spinal stenosis), 1 or 2 vertebral segments; lumbar, except for spondylolisthesis (11409) in 1996 at 41 Years. SCS trial at [facility] complicated by early lead migration. Never had adequate trial. 8Surgical History Procedure/Surgical Profile 3 level Posterior fusion (85041) in 2013 at 58 Years. Spinal decompression (02909) in 2008 at 53 Years. Laminectomy with exploration and/or decompression of spinal cord and/or cauda equina, without facetectomy, foraminotomy or discectomy (eg, spinal stenosis), 1 or 2 vertebral segments; lumbar, except for spondylolisthesis (69436) in 1996 at 41 Years. SCS trial at [facility] complicated by early lead migration. Never had adequate trial. Social History Social History Type Response Smoking Status Former smoker, quit more than 30 days ago entered on: 12/01/18 Sex
--- OUTSIDE RECORDS SUMMARY | 2024-01-05 10:26 | XMS_ITS | Continuity of Care Document ---
Author Organization [facility] Address [address] [place] [address]- Care Team Providers Care Parts Sales Associate Name Role Phone Abel OTERO, Solis Li Primary Care Physician [phone] Encounter [facility] Date(s): 08/31/21 - 09/30/21 [facility] [address] [place] [address]- Attending Physician: Mary Cantu Admitting Physician: Mary Cantu Referring Physician: AdmtrMary Allergies, Adverse Reactions, Alerts No Known Allergies [...] tetanus/diphtheria/pertussis, acel(Tdap) 4 12/23/16 Given 1Result Comment: [id number] 2Result Comment: [03/09/2018] [id number] 3Result Comment: [id number] 4Result Comment: [12/23/2016] given without incident.....vs Medications [...] bedtime, # 90 capsule, 3 Refills, [facility], 160, cm, 06/22/21 15:54:00 EST, Height, 86.5, kg, 05/07/20 6:28:00 EST, Dry Weight Start Date: 07/21/21 Status: Ordered duloxetine 60 mg oral enteric coated capsule 1 capsule = 60 mg, By Mouth, Daily, # 30 capsule, 11 Refills, Maintenance, 11/10/20 14:38:00 EDT, Capsule, [facility]/pharmacy #2339, 160, cm, 05/09/20 16:02:00 EST, Height, 86.5, kg, 05/07/20 6:28:00 EST, Dry Weight Start Date: 11/10/20 Status: Ordered gabapentin 800 mg oral tablet 1 tablet = 800 mg, By Mouth, 3 times a day, # 90 tablet, 11 Refills, Maintenance, 06/06/20 10:19:00EST, Tablet, [facility]/pharmacy #2339, Partial fill upon patient request if the prescription is for a schedule II opioid drug., 160, cm, 05/09/20 16:02:00 ES... Start Date: 06/06/20 Status: Ordered hydrALAZINE 25 mg oral tablet 25 mg, 1, tablet, By Mouth, 2 times a day, # 60 tablet, Refills 11, Tot. Refills 11, Maintenance, 08/03/21 14:23:00 EST, Route to Pharmacy Electronically, [facility]/pharmacy #2339, Partial fill upon patient request if the prescription is for a schedule II o... Start Date: 08/03/21 Status: Ordered hydrochlorothiazide-triamterene 25 mg-37.5 mg oral capsule 1 capsule, By Mouth, Daily, # 30 capsule, 11 Refills, Maintenance, 06/22/21 16:39:00 EST, Capsule, [facility]/pharmacy #2339, d/c hydrochlorothiazide, 1 capsule [...] 3 Refills, Maintenance, 06/18/21 14:42:00 EST, [facility]/pharmacy#2339, 160, cm, 06/18/21 14:17:00 EST, [...] 09/11/20 10:05:00 EDT, Route to Pharmacy Electronically, [facility] [id number], 160, cm, 05/09/20 16:02:00 EST, Height, 86.5, kg, 05/07/20 6:28:00 EST, Dry Weight Start Date: 09/11/20 Status: Ordered traZODone 50 mg oral tablet See Instructions, TAKE 1 TABLET BY MOUTH EVERYDAY AT BEDTIME, # 90 tablet, Refills 3, Tot. Refills 3, Maintenance, 08/03/21 14:24:00 EST, Instructions Replace Required Details, Route to Pharmacy Electronically, [facility]/pharmacy #2339, 160, cm, 08/03/21 14... Start Date: 08/03/21 Status: Ordered valsartan 320 mg oral tablet 1 tablet = 320 mg, By Mouth, Daily, # 90 tablet, 3 Refills, Maintenance, 06/18/21 14:40:00 EST, Tablet, [facility]/pharmacy #2339, this is a n [...] Venous (Peripheral) Insuffic iency, Unspecified(Confirmed) Active 1initial [place]: 17 on 08/09/14 2initial Oswestry Disability Index: 57% ( severe disability ) on 08/09/14; initial Neck Disability Index: 40% on 08/16/14 3SOAPP-R: 19 ON 08/09/14 4On 05/31/2013 underwent left total knee arthroplasty with computer navigation for osteoarthritis, left knee by Luis Higgins M.D. at [facility]. 5On 09/24/2008 underwent 1. Open decompression right shoulder (acromioplasty, release of coracoacromial ligament). 2. Distal clavicle excision. 3. Repair of massive markedly retracted posterosuperior cuff tear. 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 at [facility]. 6Polysomnogram performed on 08/17/2014 at [facility] revealed 1. Obstructive sleep apnea, moderate 2. Hypoventilation with sleep 7Surgical History Procedure/Surgical Profile 3 level Posterior fusion (10913) in 2013 at 58 Years. Spinal decompression (64337) in 2008 at 53 Years. Laminectomy with exploration and/or decompression of spinal cord and/or cauda equina, without facetectomy, foraminotomy or discectomy (eg, spinal stenosis), 1 or 2 vertebral segments; lumbar, except for spondylolisthesis (39533) in 1996 at 41 Years. SCS trial at [facility] complicated by early lead migration. Never had adequate trial. 8Surgical History Procedure/Surgical Profile 3 level Posterior fusion (53005) in 2013 at 58 Years. Spinal decompression (18534) in 2008 at 53 Years. Laminectomy with exploration and/or decompression of spinal cord and/or cauda equina, without facetectomy, foraminotomy or discectomy (eg, spinal stenosis), 1 or 2 vertebral segments; lumbar, except for spondylolisthesis (85739) in 1996 at 41 Years. SCS trial at [facility] complicated by early lead migration. Never had adequate trial. Social History Social History Type Response Smoking Status Former smoker, quit more than 30 days ago entered on: 12/01/18 Sex
== END 2024-01-05 12:02 | disposition home or self-care (01) ==
PROVIDERS: PCP Internal Medicine; Visit Provider Physician Assistant
DX: M25.472 Effusion, left ankle (principal); M25.572 Pain in left ankle and joints of left foot; S93.402A Sprain of unspecified ligament of left ankle, initial encounter
CPT/HCPCS: 99204

== ENCOUNTER 2024-01-05 10:45 | Outpatient (REF) | payer OTHER, SELFPAY ==
--- NOTE | ~2024-01-05 | XR_ITS ---
EXAMINATION: XR ANKLE, LEFT CLINICAL INFORMATION: Left ankle effusion COMPARISON: None available. TECHNIQUE: AP, lateral, and mortise views of the left ankle. FINDINGS: There is significant soft tissue swelling seen laterally, less prominent medially. Ankle mortise is preserved and there is no fracture seen. There is plantar calcaneal spurring. XR/XR ankle LT min 3V IMPRESSION: Soft tissue swelling and plantar calcaneal spurring
== END 2024-01-05 10:46 | disposition home or self-care (01) ==
LOC: HO.HMGCX 10:45
PROVIDERS: PCP Internal Medicine; Visit Provider Physician Assistant
DX: M25.472 Effusion, left ankle (principal); S93.402D Sprain of unspecified ligament of left ankle, subsequent encounter
CPT/HCPCS: 73610

== ENCOUNTER 2024-07-24 06:08 | Emergency (ER) | payer OTHER, SELFPAY ==
[2024-07-24] VITALS (10 sets, daily range): BP systolic 60–88; BP diastolic 30–57; PULSE 82–97; RESP 18; TEMP 36.4–37.4; O2SAT 96–98; BMI 35.7
--- NOTE | ~2024-07-24 | XR_ITS ---
EXAMINATION: XR CHEST 1 VIEW HISTORY: cough, hypotension COMPARISON: There are no prior studies for comparison. FINDINGS: A single AP portable view of the chest performed at 8:04 AM is submitted. There is linear subsegmental atelectasis versus scarring at both lung bases. There is no pleural effusion, pneumothorax, or pulmonary vascular congestion. The heart is normal in size. There is degenerative disc disease of the spine. The patient is status post spinal fusion with pedicle screws and stabilization rods. XR/XR chest 1V IMPRESSION: Bibasilar subsegmental atelectasis versus scarring. Electronically signed by: Biju Michael MD 07/24/2024 08:22 AM [facility]
--- NOTE | 2024-07-24 06:20 | ECG_ITS ---
Test Reason : hypotension Blood Pressure : */* mmHG Vent. Rate : 86 BPM Atrial Rate : 86 BPM P-R Int : 194 ms QRS Dur : 88 ms QT Int : 368 ms P-R-T Axes : 95 91 34 degrees QTcB Int : 440 ms Suspect limb lead reversal, interpretation assumes no reversal Normal sinus rhythm with sinus arrhythmia Rightward axis Pulmonary disease pattern Abnormal ECG No previous ECGs available Referred By: Luara Zhong Electronically Signed By: Emigdio Roman
--- NOTE | 2024-07-24 06:24 | ED.GENADULT ---
HPI - General Adult General Chief complaint: Weakness Stated complaint: weakness Time Seen by Provider: 07/24/24 06:14 Source: patient and EMS Mode of arrival: EMS Limitations: other History of Present Illness ED Provider: Carlos Holguin HPI narrative: Patient comes to the emergency room complaining weakness. Patient coming by ambulance from a alf facility. Patient reports that she has been having significant weakness since yesterday. Patient denies any pain anywhere. He also seemed to develop an oxygen requirement this morning at the longterm. The patient says that she was recently at [facility] rehab for some time but was transferred to [facility] for the last few days. The patient says that she feels somewhat confused. She denied headache, chest pain, abdominal pain, nausea, vomiting. Related Data Home Medications ?Medication ?Instructions ?Recorded ?Confirmed doxepin 100 mg capsule 100 mg PO BEDTIME 01/05/24 07/24/24 duloxetine 60 mg capsule,delayed 60 mg PO DAILY 01/05/24 07/24/24 release trazodone 50 mg tablet 75 mg PO BEDTIME 01/05/24 07/24/24 alprazolam 0.5 mg tablet 0.5 mg PO BEDTIME PRN Anxiety 07/24/24 07/24/24 baclofen 5 mg tablet 2.5 mg PO TID 07/24/24 07/24/24 bisacodyl 10 mg rectal suppository 10 mg [place] DAILY@1800 07/24/24 07/24/24 cholecalciferol (vitamin D3) 50 50 mcg PO DAILY 07/24/24 07/24/24 mcg (2,000 unit) tablet enoxaparin 40 mg/0.4 mL 40 mg subcut DAILY 07/24/24 07/24/24 subcutaneous syringe ferrous sulfate 325 mg (65 mg 325 mg PO BID 07/24/24 07/24/24 iron) tablet gabapentin 100 mg capsule 200 mg PO BID 07/24/24 07/24/24 nicotine 7 mg/24 hr daily 1 patch transdermal Q24H 07/24/24 07/24/24 transdermal patch oxycodone 5 mg tablet 5 mg PO BID PRN Pain (Scale Score 07/24/24 07/24/24 7-10) pantoprazole 40 mg tablet,delayed 40 mg PO DAILY 07/24/24 07/24/24 release valsartan 40 mg tablet 40 mg PO DAILY 07/24/24 07/24/24 Allergies Allergy/AdvReac Type Severity Reaction Status Date / Time No Known Allergies Allergy Verified 07/24/24 06:18 [No Known Allergies*] Review of Systems Review of Systems: Yes all other systems are reviewed and are negative [facility] Social History Social History Patient Tobacco Use Status: Never used Tobacco Advance Directives: No Physical Exam ED Vital Signs: Vital Signs - 24 hr 07/24/24 06:17 07/24/24 06:20 07/24/24 07:24 Temperature 97.6 F 99.3 F Pulse Rate 91 91 83 Respiratory Rate 18 Blood Pressure 76/50 L 76/50 L 85/53 L Pulse Oximetry 96 96 98 Oxygen Delivery Method Nasal Cannula Nasal Cannula Nasal Cannula Oxygen Flow Rate 4 4 07/24/24 07:28 07/24/24 07:41 07/24/24 07:56 Temperature Pulse Rate 84 97 Respiratory Rate Blood Pressure 74/44 L 73/35 L 78/57 L Pulse Oximetry Oxygen Delivery Method Oxygen Flow Rate 07/24/24 08:16 07/24/24 08:19 07/24/24 08:22 Temperature Pulse Rate 82 92 92 Respiratory Rate Blood Pressure 70/42 L 77/37 L 88/50 L Pulse Oximetry Oxygen Delivery Method Oxygen Flow Rate BMI result Body Mass Index 35.7 Const Other: The patient was awake. She is a chronically ill-appearing 68-year-old. She does not seem in respiratory distress. She looked quite weak and frail. She tried to answer all of my questions but said that she was feeling confused and she found my questions difficult. HENMT Other: No obvious facial asymmetry. No obvious mucous membrane dryness. Eyes General: appearance normal, both eyes and all related structures Conjunctivae: conjunctivae normal Sclerae: sclerae normal Pupils: Equal, round and reactive pupils present EOM: EOMs intact bilaterally Neck Neck: Yes full ROM, Yes no lymphadenopathy and Yes no JVD Resp Other: No obvious increased work of breathing. Lungs seemed fairly clear. No definite adventitious sounds GI Other: The abdomen was soft and nontender Skin Other: Skin was pale and dry. Neuro Other: The patient was awake and alert but kept complaining of feeling confused. There was no obvious facial asymmetry. Eye movements were intact. Speech was coherent and without aphasia or dysarthria. She moves her arms symmetrically. Her legs seem chronically weak Cranial nerves: Yes Equal, round and reactive pupils present Extrem Other: The patient has chronic edema to both lower extremities. Both lower extremities were padded with balloon type pressure reduction boots. Medications Administered Generic Name Dose Route Start Last Admin Trade Name Freq PRN Reason Stop Dose Admin Norepinephrine Bitartrate 8 mg in 250 mls @ 0 mls/hr 07/24/24 07:45 07/24/24 08:22 Levophed IVCONT 0.13 mcg/kg/min .Q0M EDEN 22.25 mls/hr Titration Protocol Per Protocol Discontinued Medications Generic Name Dose Route Start Last Admin Trade Name Freq PRN Reason Stop Dose Admin Sodium Chloride 2,000 mls @ 999 mls/hr 07/24/24 06:22 07/24/24 06:40 Ns IVCONT 07/24/24 08:22 999 mls/hr .Q2H1M ONE Administration Piperacillin Sod/Tazobactam 50 mls @ 100 mls/hr 07/24/24 06:22 07/24/24 07:31 Sod 3.375 gm/ Sodium Chloride IV 07/24/24 06:51 Infused ONCE ONE Infusion Sodium Chloride 1,000 mls @ 999 mls/hr 07/24/24 07:30 07/24/24 07:50 Ns IV 07/24/24 08:30 Not Given .Q1H1M EDEN Lactated Ringer's 1,000 mls @ 999 mls/hr 07/24/24 07:45 07/24/24 09:29 Lr IV 07/24/24 08:45 Not Given .Q1H1M EDEN Vancomycin HCl 2,000 mg in 500 mls @ 250 mls/hr 07/24/24 07:42 07/24/24 09:29 Vancomycin/Ns IV 07/24/24 09:41 Not Given ONCE ONE Medical Decision Making Medical Decision Making MDM Narrative: -patient being given fluids based on ideal weight of 50 kg, patient is obese. Patient receiving IV fluids, Zosyn The patient arrived hypotensive. At 1st it seemed as if she might be septic. Her white count was 15. She has a high CRP. She was given empiric antibiotics and empiric IV fluids. She remained hypotensive and was started on a norepinephrine drip. Obvious source of fever was apparent however. Her chest x-ray was clear. Her urinalysis did not suggest a UTI. Her abdomen was benign. I did not see any significant skin manifestation of infection. The patient is troponin came back elevated as did her BNP. Her chest x-ray did not show failure however. The patient's MOLST form indicated that she was to be a DNR/DNI. In order to resuscitate the patient we planned on placing a femoral line. As the femoral line procedure was being completed by my colleague the patient became increasingly unresponsive, more hypotensive, and bradycardic. She was given 1 dose of IV epinephrine without response. We honored the patient's MOLST form and did not start CPR. The patient became increasingly bradycardic down to pulselessness and asystole and the patient was declared at 08:30. I contacted the patient's sister Isabel Thornton and she and her came to view the body. Lab Data 07/24/24 07:04 07/24/24 07:04 Labs: Lab Results 07/24/24 07/24/24 07/24/24 Range/Units 07:04 07:14 07:36 WBC 16.4 H (4.8-10.8) X10*3/uL RBC 4.03 L (4.20-5.50) X10*6/uL Hgb 12.0 (12.0-16.0) g/dl Hct 35.8 L (37.0-47.0) % MCV 88.8 (80.0-98.0) fL MCH 29.8 (27.0-33.0) pg MCHC 33.5 (31.0-35.0) g/dl RDW 15.9 (11.0-16.0) % Plt Count 327 (160-400) X10*3/uL MPV 10.8 (9.4-12.3) fL Immature Gran % (Auto) 4.6 H (0.0-0.4) % Neut % (Auto) 80.7 H (45-73) % Lymph % (Auto) 6.5 L (20-40) % [place] % (Auto) 7.6 (2-11) % Eos % (Auto) 0.1 (0-4) % Baso % (Auto) 0.5 (0-2) % Lymph # (Auto) 1.1 L (1.2-4.9) X10*3/uL [place] # (Auto) 1.2 (0.1-1.2) X10*3/uL Eos # (Auto) 0.0 (0.0-0.4) X10*3/uL Baso # (Auto) 0.1 (0.0-0.2) X10*3/uL Abs Immat Gran (auto) 0.76 H (0.00-0.03) X10*3/uL Absolute Neuts (auto) 13.2 H (2.0-8.3) x10*3/uL Absolute Nucleated RBC 0.060 H (0.0-0.012) X10*3/uL Nucleated RBC % (auto) 0.4 H (0.0-0.2) /100WBC PT 17.2 H (10.9-12.4) SEC INR 1.5 H (0.9-1.1) VBG pH 7.34 (7.32-7.43) VBG pCO2 50 mmHg VBG pO2 35 mmHg VBG HCO3 27 H (22-26) mmol/L VBG O2 Saturation 42.0 % VBG Base Excess 1.2 mmol/L Sodium 132 L (135-145) mmol/L Potassium 5.0 (3.3-5.1) mmol/L Chloride 96 (96-108) mmol/L Carbon Dioxide 23 (22-29) mmol/L Anion Gap 18 (12-20) BUN 57 H (9-16) mg/dL Creatinine 1.70 H (0.5-1.4) mg/dL Estim Creat Clear Calc 34.4 Estimated GFR 30 POC Glucose (60-115) mg/dL Random Glucose 106 (60-115) mg/dL Lactic Acid 2.3 H* (0.5-2.0) mmol/L Calcium 9.4 (8.4-10.2) mg/dL Magnesium 2.2 (1.6-2.6) mg/dL Total Bilirubin 0.7 (0.0-1.0) mg/dL Direct Bilirubin 0.4 (0.0-0.5) mg/dL AST 1423 H (5-31) U/L ALT 1051 H (0-31) U/L Alkaline Phosphatase 188 H (39-117) U/L Troponin I High Sens 102.4 H* (<3.5-17.0) ng/L C-Reactive Protein 19.43 H (< or = 0.50) mg/dL B-Natriuretic Peptide 802 H (<100) pg/mL Total Protein 5.5 L (6.5-8.0) g/dL Albumin 2.8 L (3.5-5.0) g/dL TSH 1.75 (0.32-4.0) uIU/mL Urine Color Dark Yellow Urine Appearance Cloudy Urine pH 5.0 (5.0-9.0) Ur Specific [place] 1.020 (1.005-1.025) Urine Protein 300 (3+) H (Neg-Trace) mg/dL Urine Glucose (UA) Negative (Negative) mg/dL Urine Ketones Negative (Negative) mg/dL Urine Blood Negative (Negative) Urine Nitrite Negative (Negative) Ur Leukocyte Esterase Trace H (Negative) Urine RBC 3-5 H (0-2) /HPF Urine WBC 0-5 (0-5) /HPF Ur Squamous Epith Cells 0-2 (0-2) /HPF Urine Bacteria 2+ (None Seen) Hyaline Casts 11-20 (0-2) /LPF Urine Opiates Screen POSITIVE H (Not Detect) Ur Buprenorphine Scrn Not Detected (Not Detect) ng/mL Ur Oxycodone Screen Positive H (Not Detect) ng/mL Urine Methadone Screen Not Detected (Not Detect) ng/mL Urine Fentanyl Screen Not Detected (Not Detect) Ur Barbiturates Screen Not Detected (Not Detect) Ur Phencyclidine Scrn Not Detected (Not Detect) Ur Amphetamines Screen Not Detected (Not Detect) U Benzodiazepines Scrn POSITIVE H (Not Detect) Urine Cocaine Screen Not Detected (Not Detect) U Marijuana (THC) Screen Not Detected (Not Detect) Influenza Type A (PCR) NEGATIVE (Negative) Influenza Type B (PCR) NEGATIVE (Negative) RSV RNA Qual (PCR) NEGATIVE (Negative) SARS-CoV-2 RNA (RT-PCR) NEGATIVE (Negative) 07/24/24 Range/Units 08:13 WBC (4.8-10.8) X10*3/uL RBC (4.20-5.50) X10*6/uL Hgb (12.0-16.0) g/dl Hct (37.0-47.0) % MCV (80.0-98.0) fL MCH (27.0-33.0) pg MCHC (31.0-35.0) g/dl RDW (11.0-16.0) % Plt Count (160-400) X10*3/uL MPV (9.4-12.3) fL Immature Gran % (Auto) (0.0-0.4) % Neut % (Auto) (45-73) % Lymph % (Auto) (20-40) % [place] % (Auto) (2-11) % Eos % (Auto) (0-4) % Baso % (Auto) (0-2) % Lymph # (Auto) (1.2-4.9) X10*3/uL [place] # (Auto) (0.1-1.2) X10*3/uL Eos # (Auto) (0.0-0.4) X10*3/uL Baso # (Auto) (0.0-0.2) X10*3/uL Abs Immat Gran (auto) (0.00-0.03) X10*3/uL Absolute Neuts (auto) (2.0-8.3) x10*3/uL Absolute Nucleated RBC (0.0-0.012) X10*3/uL Nucleated RBC % (auto) (0.0-0.2) /100WBC PT (10.9-12.4) SEC INR (0.9-1.1) VBG pH (7.32-7.43) VBG pCO2 mmHg VBG pO2 mmHg VBG HCO3 (22-26) mmol/L VBG O2 Saturation % VBG Base Excess mmol/L Sodium (135-145) mmol/L Potassium (3.3-5.1) mmol/L Chloride (96-108) mmol/L Carbon Dioxide (22-29) mmol/L Anion Gap (12-20) BUN (9-16) mg/dL Creatinine (0.5-1.4) mg/dL Estim Creat Clear Calc Estimated GFR POC Glucose 97 (60-115) mg/dL Random Glucose (60-115) mg/dL Lactic Acid (0.5-2.0) mmol/L Calcium (8.4-10.2) mg/dL Magnesium (1.6-2.6) mg/dL Total Bilirubin (0.0-1.0) mg/dL Direct Bilirubin (0.0-0.5) mg/dL AST (5-31) U/L ALT (0-31) U/L Alkaline Phosphatase (39-117) U/L Troponin I High Sens (<3.5-17.0) ng/L C-Reactive Protein (< or = 0.50) mg/dL B-Natriuretic Peptide (<100) pg/mL Total Protein (6.5-8.0) g/dL Albumin (3.5-5.0) g/dL TSH (0.32-4.0) uIU/mL Urine Color Urine Appearance Urine pH (5.0-9.0) Ur Specific [place] (1.005-1.025) Urine Protein (Neg-Trace) mg/dL Urine Glucose (UA) (Negative) mg/dL Urine Ketones (Negative) mg/dL Urine Blood (Negative) Urine Nitrite (Negative) Ur Leukocyte Esterase (Negative) Urine RBC (0-2) /HPF Urine WBC (0-5) /HPF Ur Squamous Epith Cells (0-2) /HPF Urine Bacteria (None Seen) Hyaline Casts (0-2) /LPF Urine Opiates Screen (Not Detect) Ur Buprenorphine Scrn (Not Detect) ng/mL Ur Oxycodone Screen (Not Detect) ng/mL Urine Methadone Screen (Not Detect) ng/mL Urine Fentanyl Screen (Not Detect) Ur Barbiturates Screen (Not Detect) Ur Phencyclidine Scrn (Not Detect) Ur Amphetamines Screen (Not Detect) U Benzodiazepines Scrn (Not Detect) Urine Cocaine Screen (Not Detect) U Marijuana (THC) Screen (Not Detect) Influenza Type A (PCR) (Negative) Influenza Type B (PCR) (Negative) RSV RNA Qual (PCR) (Negative) SARS-CoV-2 RNA (RT-PCR) (Negative) Discharge Plan Discharge Clinical Impression: Cardiac arrest Patient Disposition: Prescriptions: No Action alprazolam 0.5 mg Tablet 0.5 mg PO BEDTIME PRN (Reason: Anxiety) bisacodyl 10 mg Suppository 10 mg [place] DAILY@1800 pantoprazole 40 mg Tablet,Delayed Release (Dr/Ec) 40 mg PO DAILY ferrous sulfate 325 mg (65 mg iron) Tablet 325 mg PO BID gabapentin 100 mg Capsule 200 mg PO BID nicotine 7 mg/24 hr Patch 24 Hour 1 patch TRANSDERMAL Q24H oxycodone 5 mg Tablet 5 mg PO BID PRN (Reason: Pain (Scale Score 7-10)) enoxaparin 40 mg/0.4 mL syringe 40 mg subcut DAILY valsartan 40 mg Tablet 40 mg PO DAILY cholecalciferol (vitamin D3) 50 mcg (2,000 unit) Tablet 50 mcg PO DAILY baclofen 5 mg Tablet 2.5 mg PO TID duloxetine 60 mg capsule,delayed release(DR/EC) 60 mg PO DAILY trazodone 50 mg tablet 75 mg PO BEDTIME doxepin 100 mg capsule 100 mg PO BEDTIME Print Language: Greek
[2024-07-24] MEDS: 0.9 % Sodium Chloride 2,000 ML 999 ML IVCONT (06:40)
[2024-07-24] MEDS: Piperacillin Sodium/Tazobactam 3.375 GM in 0.9 % Sodium Chloride 50 ML IV (07:05)
[2024-07-24 07:20] LABS: MANUAL DIFF FLAG NO
[2024-07-24 07:21] LABS: VBG Base Excess 1.2 mmol/L; VBG HCO3 27 mmol/L (22-26); VBG pCO2 50 mmHg; VBG pH 7.34 (7.32-7.43); VBG pO2 35 mmHg
[2024-07-24 07:21] LABS: Venous Blood Gas Refer to POC result
[2024-07-24 07:22] LABS: Basophils Absolute Auto 0.1 X10*3/uL (0.0-0.2); Basophils Percent Auto 0.5 % (0-2); Eosinophils Percent Auto 0.1 % (0-4); Hematocrit 35.8 % (37.0-47.0); Imm Gran Abs Auto 0.76 X10*3/uL (0.00-0.03); Imm Gran Pct Auto 4.6 % (0.0-0.4); Lymphocytes Absolute Auto 1.1 X10*3/uL (1.2-4.9); Lymphocytes Percent Auto 6.5 % (20-40); Mean Corpuscular HGB Conc 33.5 g/dl (31.0-35.0); Mean Corpuscular Hemoglobin 29.8 pg (27.0-33.0); Mean Corpuscular Volume 88.8 fL (80.0-98.0); Mean Platelet Volume 10.8 fL (9.4-12.3); Monocytes Absolute Auto 1.2 X10*3/uL (0.1-1.2); Monocytes Percent Auto 7.6 % (2-11); NRBC Pct Auto 0.4 /100WBC (0.0-0.2); Neutrophils Absolute Auto 13.2 x10*3/uL (2.0-8.3); Neutrophils Percent Auto 80.7 % (45-73); Platelet Count 327 X10*3/uL (160-400); Red Blood Count 4.03 X10*6/uL (4.20-5.50); Red Cell Distribution Width 15.9 % (11.0-16.0); White Blood Count 16.4 X10*3/uL (4.8-10.8)
[2024-07-24 07:33] LABS: Anion Gap 18 (12-20)
[2024-07-24 07:34] LABS: INTERNATIONAL NORM RATIO 1.5 (0.9-1.1); Prothrombin Time 17.2 SEC (10.9-12.4)
[2024-07-24 07:38] LABS: Alanine Aminotransferase 1051 U/L (0-31); Albumin Level 2.8 g/dL (3.5-5.0); Aspartate Amino Transferase 1423 U/L (5-31); Bilirubin Direct 0.4 mg/dL (0.0-0.5); Bilirubin Total 0.7 mg/dL (0.0-1.0); Blood Urea Nitrogen 57 mg/dL (9-16); C Reactive Protein 19.43 mg/dL (< or = 0.50); Calcium 9.4 mg/dL (8.4-10.2); Carbon Dioxide 23 mmol/L (22-29); Chloride 96 mmol/L (96-108); Creatinine Clr Calc Pharmacy 34.4; Estimated Glomerular Filt Rate 30; Glucose Random 106 mg/dL (60-115); Magnesium 2.2 mg/dL (1.6-2.6); Sodium 132 mmol/L (135-145); Total Protein 5.5 g/dL (6.5-8.0)
[2024-07-24 07:40] LABS: Lactic Acid 2.3 mmol/L (0.5-2.0)
--- OUTSIDE RECORDS SUMMARY | 2024-07-24 07:40 | XMS_ITS ---
Author Name [facility] Organization Unknown Results Test Name/Text Value Interpretation Date Range Source Glucose Bld-mCnc 108mg/dL Normal [id number] 70 - 199 [facility] MCV RBC Auto 89.4FL Normal [id number] 78 - 100 [facility] Lymphocytes # Bld Auto 0.5K/mcL Below low normal [id number] 1 - 3.2 [facility] WBC # Bld Auto 14.9K/mcL Above high normal [id number] 4 - 10.5 [facility] Monocytes/leuk NFr Bld Auto 10.2% Normal [id number] 2 - 12 [facility] Platelet # Bld Auto 255K/mcL Normal [id number] 150 - 450 [facility] PMV Bld Auto 7.3FL Below low normal [id number] 7.4 - [address] [facility] RBC Qn Auto 30.8pcg Normal [id number] 25 - 33 [facility] Eosinophil # Bld Auto 0K/mcL Normal [id number] 0 - 0.5 [facility] Neutrophils/leuk NFr Bld Auto 85.9% Above high normal [id number] 44 - 74 [facility] RBC # Bld Auto 4.04M/mcL Below low normal [id number] 4.2 - 5.4 [facility] Monocytes # Bld Auto 1.5K/mcL Above high normal [id number] 0 - 0.8 [facility] RDW RBC Auto-Rto 15.2% Normal [id number] 12.1 - 16.2 [facility] Lymphocytes/leuk NFr Bld Auto 3.4% Below low normal [id number] 20 - 48 [facility] Eosinophil/leuk NFr Bld Auto 0.2% Normal [id number] 0 - 6 [facility] Basophils # Bld Auto 0K/mcL Normal [id number] 0 - 0.2 [facility] Neutrophils # Bld Auto 12.8K/mcL Above high normal [id number] 1.8 - 7.8 [facility] Hct VFr Bld Auto 36.1% Below low normal [id number] 37 - 47 [facility] Hgb Bld-mCnc 12.4g/dL Below low normal [id number] 12.5 - 16 [facility] MCHC RBC Auto-mCnc 34.4g/dL Normal [id number] 32 - 36 [facility] Basophils/leuk NFr Bld Auto 0.3% Normal [id number] 0 - 2 [facility] Glucose Bld-mCnc 159mg/dL Normal [id number] 70 - 199 [facility] Glucose Bld-mCnc 111mg/dL Normal [id number] 70 - 199 [facility] Glucose Bld-mCnc 102mg/dL Normal [id number] 70 - 199 [facility] Glucose Bld-mCnc 116mg/dL Normal [id number] 70 - 199 [facility] MCV RBC Auto 88.6FL Normal [id number] 78 - 100 [facility] RBC # Bld Auto 3.95M/mcL Below low normal [id number] 4.2 - 5.4 [facility] WBC # Bld Auto 15.7K/mcL Above high normal [id number] 4 - 10.5 [facility] RDW RBC Auto-Rto 15.7% Normal [id number] 12.1 - 16.2 [facility] Hct VFr Bld Auto 35% Below low normal [id number] 37 - 47 [facility] Platelet # Bld Auto 251K/mcL Normal [id number] 150 - 450 [facility] PMV Bld Auto 7.2FL Below low normal [id number] 7.4 - 1 1.4 [facility] Hgb Bld-mCnc 12.1g/dL Below low normal [id number] 12.5 - 16 [facility] RBC Qn Auto 30.6pcg Normal [id number] 25 - 33 [facility] MCHC RBC Auto-mCnc 34.6g/dL Normal [id number] 32 - 36 [facility] Glucose Bld-mCnc 122mg/dL Normal [id number] 70 - 199 [facility] Glucose Bld-mCnc 117mg/dL Normal [id number] 70 - 199 [facility] MCV RBC Auto 89.3FL Normal [id number] 78 - 100 [facility] Lymphocytes # Bld Auto 0.4K/mcL Below low normal [id number] 1 - 3.2 [facility] WBC # Bld Auto 16.3K/mcL Above high normal [id number] 4 - 10.5 [facility] Monocytes/leuk NFr Bld Auto 5.5% Normal [id number] 2 - 12 [facility] Platelet # Bld Auto 294K/mcL Normal [id number] 150 - 450 [facility] PMV Bld Auto 7.3FL Below low normal [id number] 7.4 - 1 1.4 [facility] RBC Qn Auto 30.2pcg Normal [id number] 25 - 33 [facility] Eosinophil # Bld Auto 0K/mcL Normal [id number] 0 - 0.5 [facility] Neutrophils/leuk NFr Bld Auto 92.2% Above high normal [id number] 44 - 74 [facility] RBC # Bld Auto 4.07M/mcL Below low normal [id number] 4.2 - 5.4 [facility] Monocytes # Bld Auto 0.9K/mcL Above high normal [id number] 0 - 0.8 [facility] RDW RBC Auto-Rto 15.1% Normal [id number] 12.1 - 16.2 [facility] Lymphocytes/leuk NFr Bld Auto 2.2% Below low normal [id number] 20 - 48 [facility] Eosinophil/leuk NFr Bld Auto 0% Normal [id number] 0 - 6 [facility] Basophils # Bld Auto 0K/mcL Normal 0 - 0.2 [facility] Neutrophils # Bld Auto 15K/mcL Above high normal [id number] 1.8 - 7.8 [facility] Hct VFr Bld Auto 36.3% Below low normal [id number] 37 - 47 [facility] Hgb Bld-mCnc 12.3g/dL Below low normal [id number] 12.5 - 16 [facility] MCHC RBC Auto-mCnc 33.8g/dL Normal [id number] 32 - 36 [facility] Basophils/leuk NFr Bld Auto 0.1% Normal [id number] 0 - 2 [facility] Glucose Bld-mCnc 124mg/dL Normal [id number] 70 - 199 [facility] Glucose Bld-mCnc 121mg/dL Normal [id number] 70 - 199 [facility] Glucose Bld-mCnc 137mg/dL Normal [id number] 70 - 199 [facility] Glucose Bld-mCnc 119mg/dL Normal [id number] 70 - 199 [facility] Glucose Bld-mCnc 148mg/dL Normal [id number] 70 - 199 [facility] Glucose Bld-mCnc 126mg/dL Normal [id number] 70 - 199 [facility] Glucose Bld-mCnc 121mg/dL Normal [id number] 70 - 199 [facility] Glucose Bld-mCnc 115mg/dL Normal [id number] 70 - 199 [facility] Citation Ref Lab Test The technical components [place] [address] CLIA # [id number] Normal [id number] [facility] Glucose Bld-mCnc 99mg/dL Normal [id number] 70 - 199 [facility] MCV RBC Auto 89.6FL Normal [id number] 78 - 100 [facility] RBC # Bld Auto 4.12M/mcL Below low normal [id number] 4.2 - 5.4 [facility] WBC # Bld Auto 13.9K/mcL Above high normal [id number] 4 - 10.5 [facility] RDW RBC Auto-Rto 15.3% Normal [id number] 12.1 - 16.2 [facility] Hct VFr Bld Auto 36.9% Below low normal [id number] 37 - 47 [facility] Platelet # Bld Auto 359K/mcL Normal [id number] 150 - 450 [facility] PMV Bld Auto 7.5FL Normal [id number] 7.4 - 11.4 [facility] Hgb Bld-mCnc 12.4g/dL Below low normal [id number] 12.5 - 16 [facility]CH RBC Qn Auto 30.2pcg Normal [id number] 25 - 33 [facility] MCHC RBC Auto-mCnc 33.7g/dL Normal [id number] 32 - 36 [facility] Glucose Bld-mCnc 93mg/dL Normal [id number] 70 - 199 [facility] Glucose Bld-mCnc 120mg/dL Normal [id number] 70 - 199 [facility] Glucose Bld-mCnc 123mg/dL Normal [id number] 70 - 199 [facility] Glucose Bld-mCnc 159mg/dL Normal [id number] 70 - 199 [facility] Glucose Bld-mCnc 101mg/dL Normal [id number] 70 - 199 [facility] Glucose Bld-mCnc 135mg/dL Normal [id number] 70 - 199 [facility] Glucose Bld-mCnc 140mg/dL Normal [id number] 70 - 199 [facility] Glucose Bld-mCnc 119mg/dL Normal [id number] 70 - 199 [facility] Glucose Bld-mCnc 110mg/dL Normal [id number] 70 - 199 [facility] Glucose Bld-mCnc 134mg/dL Normal [id number] 70 - 199 [facility] Glucose Bld-mCnc 122mg/dL Normal [id number] 70 - 199 [facility] Glucose Bld-mCnc 116mg/dL Normal [id number] 70 - 199 [facility] MCV RBC Auto 88.6FL Normal [id number] 78 - 100 [facility] RBC # Bld Auto 4.01M/mcL Below low normal [id number] 4.2 - 5.4 [facility] WBC # Bld Auto 12.5K/mcL Above high normal [id number] 4 - 10.5 [facility] RDW RBC Auto-Rto 15% Normal [id number] 12.1 - 16.2 [facility] Hct VFr Bld Auto 35.5% Below low normal [id number] 37 - 47 [facility] Platelet # Bld Auto 341K/mcL Normal [id number] 150 - 450 [facility] PMV Bld Auto 7.5FL Normal [id number] 7.4 - 11.4 [facility] Hgb Bld-mCnc 12.1g/dL Below low normal [id number] 12.5 - 16 [facility] MCH RBC Qn Auto 30.3pcg Normal [id number] 25 - 33 [facility] MCHC RBC Auto-mCnc 34.2g/dL Normal [id number] 32 - 36 [facility] Glucose Bld-mCnc 140mg/dL Normal [id number] 70 - 199 [facility] Glucose Bld-mCnc 137mg/dL Normal [id number] 70 - 199 [facility] Glucose Bld-mCnc 132mg/dL Normal [id number] 70 - 199 [facility] Glucose Bld-mCnc 92mg/dL Normal [id number] 70 - 199 [facility] Glucose Bld-mCnc 96mg/dL Normal [id number] 70 - 199 [facility] Glucose Bld-mCnc 128mg/dL Normal [id number] 70 - 199 [facility] Glucose Bld-mCnc 119mg/dL Normal [id number] 70 - 199 [facility] Glucose Bld-mCnc 93mg/dL Normal [id number] 70 - 199 [facility] Glucose Bld-mCnc 91mg/dL Normal [id number] 70 - 199 [facility] Glucose Bld-mCnc 125mg/dL Normal [id number] - 199 [facility] Glucose Bld-mCnc 123mg/dL Normal [id number] - 199 [facility] Glucose Bld-mCnc 127mg/dL Normal [id number] - 199 [facility] Glucose Bld-mCnc 93mg/dL Normal [id number] - 199 [facility] Magnesium SerPl-mCnc 1.7mg/dL Normal 1.7 - 2.8 [facility] Phosphate SerPl-mCnc 2.7mg/dL Normal 2.5 - 4.5 [facility] Glucose SerPl-mCnc 103mg/dL Normal - [facility] eGFRcr SerPlBld CKD-EPI 2020 99mL/min/1.73m2 Normal - [facility] Creat SerPl-mCnc 0.6mg/dL Normal 0.5 - 1 [facility] Calcium SerPl-mCnc 8.3mg/dL Below low normal 8.4 - 10.2 [facility] CO2 SerPl-sCnc 30mmol/L Normal 24 - 32 [facility] Sodium SerPl-sCnc 134mmol/L Below low normal [id number] 13 5 - 145 [facility] BUN SerPl-mCnc 16mg/dL Normal 7 - 17 [facility] BUN/Creat SerPl 26.7 Above high normal [id number] 12 - 20 [facility] Anion Gap SerPl-sCnc 5 Normal [id number] 5 - 14 [facility] Chloride SerPl-sCnc 99mmol/L Normal 98 - 107 [facility] Potassium SerPl-sCnc 4.2mmol/L Normal 3.5 - 5.1 [facility] MCV RBC Auto 88.3FL Normal [id number] 78 - 100 [facility] RBC # Bld Auto 3.56M/mcL Below low normal [id number] 4.2 - 5.4 [facility] WBC # Bld Auto 10K/mcL Normal 4 - 10.5 [facility] RDW RBC Auto-Rto 15% Normal [id number] 12.1 - 16.2 [facility] Hct VFr Bld Auto 31.4% Below low normal 37 - 47 [facility] Platelet # Bld Auto 224K/mcL Normal 150 - 450 [facility] PMV Bld Auto 8.2FL Normal [id number] 7.4 - 11.4 [facility] Hgb Bld-mCnc 10.7g/dL Below low normal [id number] 12.5 - 16 [facility] MCH RBC Qn Auto 30.1pcg Normal 25 - 33 [facility] MCHC RBC Auto-mCnc 34.1g/dL Normal 32 - 36 [facility] Glucose Bld-mCnc 133mg/dL Normal [id number] 70 - 199 [facility] Magnesium SerPl-mCnc 1.9mg/dL Normal 1.7 - 2.8 [facility] Phosphate SerPl-mCnc 2.5mg/dL Normal 2.5 - 4.5 [facility] Glucose SerPl-mCnc 124mg/dL Above high normal [id number] 70 - 99 [facility] eGFRcr SerPlBld CKD-EPI 2020 103mL/min/1.73m2 Normal - [facility] Creat SerPl-mCnc 0.5mg/dL Normal 0.5 - 1 [facility] Calcium SerPl-mCnc 8.1mg/dL Below low normal [id number] 8.4 - 10.2 [facility] CO2 SerPl-sCnc 31mmol/L Normal 24 - 32 [facility] Sodium SerPl-sCnc 133mmol/L Below low normal [id number] 13 5 - 145 [facility] BUN SerPl-mCnc 18mg/dL Above high normal [id number] 7 - 17 [facility] BUN/Creat SerPl 36 Above high normal [id number] 12 - 20 [facility] Anion Gap SerPl-sCnc 2 Below low normal [id number] 5 - 14 [facility] Chloride SerPl-sCnc 100mmol/L Normal [id number] 98 - 107 [facility] Potassium SerPl-sCnc 4.4mmol/L Normal [id number] 3.5 - 5.1 [facility] MCV RBC Auto 88.3FL Normal [id number] 78 - 100 [facility] RBC # Bld Auto 3.24M/mcL Below low normal [id number] 4.2 - 5.4 [facility] WBC # Bld Auto 9.4K/mcL Normal [id number] 4 - 10.5 [facility] RDW RBC Auto-Rto 14.8% Normal [id number] 12.1 - 16.2 [facility] Hct VFr Bld Auto 28.6% Below low normal [id number] 37 - 47 [facility] Platelet # Bld Auto 197K/mcL Normal [id number] 150 - 450 [facility] PMV Bld Auto 8.2FL Normal [id number] 7.4 - 11.4 [facility] Hgb Bld-mCnc 9.7g/dL Below low normal [id number] 12.5 - 16 [facility] MCH RBC Qn Auto 30pcg Normal [id number] 25 - 33 [facility] MCHC RBC Auto-mCnc 34g/dL Normal [id number] 32 - 36 [facility] Glucose Bld-mCnc 167mg/dL Normal [id number] 70 - 199 [facility] Glucose Bld-mCnc 142mg/dL Normal [id number] 70 - 199 [facility] Glucose Bld-mCnc 102mg/dL Normal [id number] 70 - 199 [facility] Glucose Bld-mCnc 102mg/dL Normal [id number] 70 - 199 [facility] Glucose SerPl-mCnc 136mg/dL Normal [id number] 70 - 199 [facility] eGFRcr SerPlBld CKD-EPI 2020 103mL/min/1.73m2 Normal [id number] - [facility] Creat SerPl-mCnc 0.5mg/dL Normal [id number] 0.5 - 1 [facility] Calcium SerPl-mCnc 8.2mg/dL Below low normal [id number] 8.4 - 10.2 [facility] CO2 SerPl-sCnc 25mmol/L Normal [id number] 24 - 32 [facility] Sodium SerPl-sCnc 133mmol/L Below low normal [id number] 13 5 - 145 [facility] BUN SerPl-mCnc 15mg/dL Normal [id number] 7 - 17 [facility] BUN/Creat SerPl 30 Above high normal [id number] 12 - 20 [facility] Anion Gap SerPl-sCnc 5 Normal [id number] 5 - 14 [facility] Chloride SerPl-sCnc 103mmol/L Normal [id number] 98 - 107 [facility] Potassium SerPl-sCnc 4.2mmol/L Normal [id number] 3.5 - 5.1 [facility] Magnesium SerPl-mCnc 1.7mg/dL Normal [id number] 1.7 - 2.8 [facility] Phosphate SerPl-mCnc 2mg/dL Below low normal [id number] 2.5 - 4.5 [facility] MCV RBC Auto 88.2FL Normal [id number] 78 - 100 [facility] Lymphocytes # Bld Auto 0.6K/mcL Below low normal [id number] 1 - 3.2 [facility] WBC # Bld Auto 12.9K/mcL Above high normal [id number] 4 - 10.5 [facility] Monocytes/leuk NFr Bld Auto 7% Normal 2 - 12 [facility] Platelet # Bld Auto 181K/mcL Normal 150 - 450 [facility] PMV Bld Auto 8.1FL Normal 7.4 - 11.4 [facility] RBC Qn Auto 30.2pcg Normal 25 - 33 [facility] Eosinophil # Bld Auto 0K/mcL Normal 0 - 0.5 [facility] Neutrophils/leuk NFr Bld Auto 88.1% Above high normal 44 - 74 [facility] RBC # Bld Auto 3.22M/mcL Below low normal 4.2 - 5.4 [facility] Monocytes # Bld Auto 0.9K/mcL Above high normal 0 - 0.8 [facility] RDW RBC Auto-Rto 14.8% Normal 12.1 - 16.2 [facility] Lymphocytes/leuk NFr Bld Auto 4.7% Below low normal 20 - 48 [facility] Eosinophil/leuk NFr Bld Auto 0% Normal 0 - 6 [facility] Basophils # Bld Auto 0K/mcL Normal 0 - 0.2 [facility] Neutrophils # Bld Auto 11.6K/mcL Above high normal 1.8 - 7.8 [facility] Hct VFr Bld Auto 28.4% Below low normal 37 - 47 [facility] Hgb Bld-mCnc 9.7g/dL Below low normal 12.5 - 16 [facility] MCHC RBC Auto-mCnc 34.3g/dL Normal 32 - 36 [facility] Basophils/leuk NFr Bld Auto 0.2% Normal 0 - 2 [facility] Glucose Bld-mCnc 119mg/dL Normal [id number] 70 - 199 [facility] Glucose Bld-mCnc 142mg/dL Normal [id number] 70 - 199 [facility] Glucose Bld-mCnc 113mg/dL Normal [id number] 70 - 199 [facility] Glucose Bld-mCnc 117mg/dL Normal [id number] 70 - 199 [facility] Glucose SerPl-mCnc 138mg/dL Above high normal [id number] - 99 [facility] eGFRcr SerPlBld CKD-EPI 2020 99mL/min/1.73m2 Normal [id number] - [facility] Creat SerPl-mCnc 0.6mg/dL Normal [id number] 0.5 - 1 [facility] Calcium SerPl-mCnc 8.5mg/dL Normal [id number] 8.4 - 10.2 [facility] CO2 SerPl-sCnc 23mmol/L Below low normal [id number] 24 - 32 [facility] Sodium SerPl-sCnc 131mmol/L Below low normal [id number] 13 5 - 145 [facility] BUN SerPl-mCnc 13mg/dL Normal [id number] 7 - 17 [facility] BUN/Creat SerPl 21.7 Above high normal [id number] 12 - 20 [facility] Anion Gap SerPl-sCnc 5 Normal [id number] 5 - 14 [facility] Chloride SerPl-sCnc 103mmol/L Normal [id number] 98 - 107 [facility] Potassium SerPl-sCnc 3.9mmol/L Normal [id number] 3.5 - 5.1 [facility] Phosphate SerPl-mCnc 3.1mg/dL Normal [id number] 2.5 - 4.5 [facility] Magnesium SerPl-mCnc 1.5mg/dL Below low normal [id number] 1.7 - 2.8 [facility] MCV RBC Auto 90.4FL Normal [id number] 78 - 100 [facility] Lymphocytes # Bld Auto 0.5K/mcL Below low normal [id number] 1 - 3.2 [facility] WBC # Bld Auto 16.3K/mcL Above high normal [id number] 4 - 10.5 [facility] Monocytes/leuk NFr Bld Auto 2.8% Normal [id number] 2 - 12 [facility] Platelet # Bld Auto 266K/mcL Normal [id number] 150 - 450 [facility] PMV Bld Auto 8.3FL Normal [id number] 7.4 - 11.4 [facility] MCH RBC Qn Auto 29.9pcg Normal [id number] 25 - 33 [facility] Eosinophil # Bld Auto 0K/mcL Normal [id number] 0 - 0.5 [facility] Neutrophils/leuk NFr Bld Auto 93.9% Above high normal [id number] 44 - 74 [facility] RBC # Bld Auto 4.26M/mcL Normal [id number] 4.2 - 5.4 [facility] Monocytes # Bld Auto 0.5K/mcL Normal [id number] 0 - 0.8 [facility] RDW RBC Auto-Rto 15.5% Normal [id number] 12.1 - 16.2 [facility] Lymphocytes/leuk NFr Bld Auto 3.2% Below low normal [id number] 20 - 48 [facility] Eosinophil/leuk NFr Bld Auto 0% Normal [id number] 0 - 6 [facility] Basophils # Bld Auto 0K/mcL Normal [id number] 0 - 0.2 [facility] Neutrophils # Bld Auto 15.3K/mcL Above high normal [id number] 1.8 - 7.8 [facility] Hct VFr Bld Auto 38.6% Normal [id number] 37 - 47 [facility] Hgb Bld-mCnc 12.7g/dL Normal [id number] 12.5 - 16 [facility] MCHC RBC Auto-mCnc 33.1g/dL Normal [id number] 32 - 36 [facility] Basophils/leuk NFr Bld Auto 0.1% Normal 0 - 2 [facility] Ca-I Bld-mCnc 1.1mg/dL Below low normal [id number] 1.1 9 - 1.35 [facility] Magnesium SerPl-mCnc 1.4mg/dL Below low normal [id number] 1.7 - 2.8 [facility] Glucose SerPl-mCnc 166mg/dL Normal 70 - 199 [facility] eGFRcr SerPlBld CKD-EPI 2020 99mL/min/1.73m2 Normal - [facility] Creat SerPl-mCnc 0.6mg/dL Normal 0.5 - 1 [facility] Calcium SerPl-mCnc 8.5mg/dL Normal 8.4 - 10.2 [facility] CO2 SerPl-sCnc 27mmol/L Normal [id number] 24 - 32 [facility] Sodium SerPl-sCnc 135mmol/L Normal [id number] 135 - 145 [facility] BUN SerPl-mCnc 14mg/dL Normal 7 - 17 [facility] BUN/Creat SerPl 23.3 Above high normal [id number] 12 - 20 [facility] Anion Gap SerPl-sCnc 7 Normal [id number] 5 - 14 [facility] Chloride SerPl-sCnc 101mmol/L Normal [id number] 98 - 107 [facility] Potassium SerPl-sCnc 4.6mmol/L Normal [id number] 3.5 - 5.1 [facility] Phosphate SerPl-mCnc 2.4mg/dL Below low normal [id number] 2.5 - 4.5 [facility] MCV RBC Auto 89.7FL Normal [id number] 78 - 100 [facility] RBC # Bld Auto 3.81M/mcL Below low normal [id number] 4.2 - 5.4 [facility] WBC # Bld Auto 13.6K/mcL Above high normal [id number] 4 - 10.5 [facility] RDW RBC Auto-Rto 14.7% Normal [id number] 12.1 - 16.2 [facility] Hct VFr Bld Auto 34.2% Below low normal 37 - 47 [facility] Platelet # Bld Auto 234K/mcL Normal 150 - 450 [facility] PMV Bld Auto 7.6FL Normal 7.4 - 11.4 [facility] Hgb Bld-mCnc 11.5g/dL Below low normal [id number] 12.5 - 16 [facility] MCH RBC Qn Auto 30.2pcg Normal 25 - 33 [facility] MCHC RBC Auto-mCnc 33.7g/dL Normal 32 - 36 [facility] Ca-I Bld-mCnc 1.21mg/dL Normal 1.19 - 1.35 [facility] LACTIC ACID 3.2mmol/L Above high normal 0.5 - 2 .2 [facility] Glucose Bld-mCnc 139mg/dL Normal [id number] 70 - 199 [facility] Hgb BldV-mCnc 12.6g/dL Normal 12.5 - 16 [facility] Potassium BldV-sCnc 4mmol/L Normal 3.5 - 5.1 [facility] Sodium BldV-sCnc 131mmol/L Below low normal 135 - 145 [facility] Hct VFr BldV 37% Normal 37 - 47 [facility] Clarity Ur Clear Normal - [facility] Prot Ur Strip-mCnc Negative Normal - [facility] Glucose Ur Ql Negative Normal - [facility] Bacteria #/area UrnS HPF Present Abnormal - [facility] Color Ur Yellow Normal - [facility] Hgb Ur Ql Trace Normal - [facility] Mucous Threads #/area UrnS HPF Present Abnormal - [facility] pH Ur 8pH Abnormal 5 - 8 [facility] Leukocyte esterase Ur Ql Strip Moderate Abnormal - [facility] Nitrite Ur Ql Positive Abnormal - [facility] Ketones Ur-mCnc Negative Normal - C [facility] WBC #/area UrnS HPF 170/HPF Above high normal 0 - 5 [facility] RBC #/area UrnS HPF 8/HPF Above high normal 0 - 3 [facility] Squamous Epithelial, Urine 0/HPF Normal 0 - 5 [facility] Sp Gr Ur 1.015 Normal 1.005 - 1.03 [facility]
[2024-07-24] MEDS: Norepinephrine Bitartrate/D5W 8 MG/250 ML PLAST..BAG 8.56 MG IVCONT (07:41)
--- OUTSIDE RECORDS SUMMARY | 2024-07-24 07:41 | XMS_ITS | Encounter Summary ---
Author Organization [facility] Address [address] [place] [address] Care Team Providers Care Optical Element Coater Name Role Phone Solis Rmoan MD Primary Care Provider [phone] Reason for Visit * Auth/Cert (Routine) Specialty Diagnoses / Procedures Referred By Contkimberlee t Referred To Contact Diagnoses Lower extremity weakness thoracic spinal stenosis Procedures INPATIENT REHAB FACILITY PROSPECTIVE PAYMENT SYSTEM ([facility]) Darline Laar DO [address] [place] [address] [facility] Inpatient Rehab [address] [place] [address] Referral ID Status Reason Start Date Expiration Date Visits Re quested Visits Authorized [id number] 1 1 Encounter Details Date Type Department Care Team (Latest Contact Info) Description 06/25/2024 4:55 PM EST - 07/17/2024 3:52 PM [facility] Hospital Encounter [facility] Inpatient Rehab [address] [place] [address] Darline Lara DO [address] [place] [address] Lower extremity weakness (Primary Dx); Thoracic myelopathy Discharge Disposition: Shelter Facility Social History Tobacco Use Types Packs/Day Years Used Date Smoking Tobacco: Former Cigarettes Q uit: 05/2024 Passive Smoke Exposure: Never Smokeless Tobacco: Never Tobacco Cessation:Counseling Given: No Alcohol Use Standard Drinks/Week Comments Not Currently 0 (1 standard drink = 0.6 oz pur e alcohol) occasionally Health Literacy Answer Date Recorded How often do you need to hav e someone help you when you read instructions, pamphlets, or other written material from your doctor or pharmacy? Always 07/16/2024 Caregiver: How often do you need to have someone help you when you read instructions, pamphlets, or other written material from your doctor or pharmacy? Not on file 07/16/2024 Transportation Answer Date Recorded Has the lack of transportati on kept you from meetings, work, or from getting things needed for daily living? No Has the lack of transportati on kept you from medical appointments or from getting medications? No 06/26/2024 Social Isolation Answer Date Recorded How often do you feel lonely or isolated from th ose around you? Rarely 07/17/2024 Interpersonal Safety Answer Date Record ed Physical Abuse 06/25/2024 Verbal Abuse 06/25/2024 Sex and Gender Information Value Date Recorded Sex Assigned at Female 05/24/2024 10:26 AM EST Gender Identity Female 05/24/2024 10:26 AM EST Sexual Orientation Straight 05/24/2024 10 :26 AM EST Job Start Date Occupation Industry Not on file Not on file Not on file documented as of this encounter Last Filed Vital Signs Vital Sign Reading Time Taken Comments Blood Pressure 138/99 07/17/2024 3:28 PM EST Pulse 99 07/17/2024 3:28 PM EST Temperature 37 ??C (98.6 ??F) 07/17/2024 3:28 PM EST Respiratory Rate 16 07/17/2024 3:28 PM EST Oxygen Saturation 94% 07/17/2024 3:28 PM EST Inhaled Oxygen Concentration - - Weight 84.9 kg (187 lb 3.2 oz) 07/15/2024 11:00 AM EST Height - - Body Mass Index 33.59 06/25/2024 10:31 AM EST documented in this encounter Discharge Summaries * Darline Lara, DO - 07/17/2024 7:45 AM EST Images from the original note were not included. 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 Surgery done by Dr. Ramirez Hall 06/12/[address] 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 She had a short stay in the ICU there and was then transferred to the floor and then to us for PT/OT and nursing care. This morning she feels ok, tells me she is tired She felt light headed this morning but that subsided after fluid hydration. She is eating and drinking well. Denies CP, SOB, N/V/D, abd pain, headache, vision changes, dizziness. HOSPITAL COURSE: Patient continued to progress with physical therapy and Occupational Therapy during admission. She failed a voiding trial and therefore Varma catheter was continued. She was continued on suppository daily for neurogenic bowel without incontinence episodes between her bowel program daily. The remainder of patient's medical conditions were managed during admission as outlined below. Patient will bedischarged to SNF on 07/17/2024 for continued rehabilitation needs. 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 Questionable focal areas of hyperintense STIR signals are seen within the cord suggesting cord edema. 1 x 1.4 x 1.6 cm lobulated extra-axial mass with heterogeneously hypointense signals in the right anterior lateral aspect of the spinal canal at the level of T6 jacinto ggesting a calcified mass. -s/p T6-7 decompression on 05/[address] Markham (pathology showed no evidence of neoplasia) -admitted to IRF on 05/30 for rehabilitation needs -MRI thoracic spine 05/31 showed Extra-axial lesion seen in the anterior spinal canal at the level of T6-7 measuring a 1.2 x 1.2 x 2.0 cm and dorsal fluid collection within laminectomy defect -s/p re-exploration and decompression T6-7 on 06/[address] Markham -due to progressive lower extremity weakness post-op Dr Markham discussed case with Dr Hall and patient was transferred from [facility] to [facility] on 06/10 for further surgical intervention -s/p T5-T8 fusion and T5-7 decompression T6-7 facetectomy and removal of mass (non malignant) by [facility] -readmitted to IRF on 06/25/24 from [facility] -Leave surgical incision open to air and monitor daily -5 day course of Methylprednisolone 4 mg daily completed on 06/30/24 -continue therapies -f/u NSG after discharge #Pain management -Tylenol 975mg Q8H -Gabapentin 800 mg BID --> changed to 400mg Q8H on 06/27 due to hypotension --> decreased to 200mg BID on 07/04 due to fatigue -Oxycodone 5mg Q6H PRN #Spasticity management -Tizanidine 2 mg daily 06/26 held due to hypotension --> discontinued on 06/27 due to hypotension -Baclofen 5 mg TID started 07/10 --> decreased to 2.5mg TID on 07/11 due to worsening trunk stability #COVID-19 -patient with significant fatigue, asymptomatic and afebrile otherwise -tested positive on 07/04 -isolation precautions x10 days completed #Hypotension, Resolved -s/p IVF on 06/27 -medications adjusted as outlined below -likely will continue to have soft BP secondary to spinal cord injury -monitor #History of Hypertension -Hydralazine 75 mg BID discontinued 06/27 due to hypotension -Dyazide 37.5-25 mg daily discontinued 06/26 due to hypotension -Valsartan 320 mg daily discontinued 06/26 due to hypotension -Metoprolol succinate 25 mg daily discontinued on 07/04 due to soft BP and fatigue #Anxiety -Doxepin 100 mg nightly -Duloxetine 60 mg daily -Trazodone 75 mg nightly -Xanax 0.5mg QHS PRN #GERD -Famotidine 20 mg daily #Hyponatremia, Resolved issue -sodium 124 on 06/26 --> 129 on 06/27 --> 131 on 06/28 --> 136 on 07/02 --> 138 on 07/04 -->134 on 07/06 --> 136 on 07/16 -resolved #Anemia -Ferrous sulfate 325mg BID #UTI -UA 07/03 positive for UTI -Urine culture 07/03 showed >100K E Coli -Cefuroxime 250mg BID x10 days completed on 07/16 #Neurogenic bladder -Varma catheter removed on 07/02 as per Medicine team recs --> continued to retain --> Varma replaced on 07/04 #Neurogenic bowel -suppository daily at 1800 and transfer to [facility] DVT ppx: Heparin 5000 units SQ TID changed to Lovenox 40mg daily starting on 07/17 to prevent multiple injections per day PHYSICAL EXAMINATION: Vitals: 07/16/24 0536 07/16/24 0932 07/16/24 1526 07/17/24 0540 BP: 130/86 (!) 141/93 (!) 141/87 (!) 139/94 BP Location: Right arm Right arm Left arm Left arm Patient Position: Lying Lying Lying Lying Pulse: 87 81 93 82 Resp: 18 18 16 16 Temp: 36.5 ??C (97.7 ??F) 36.6 ??C (97.9 ??F) 36.8 ??C (98.2 ??F) 36.4 ??C (97.5 ??F) TempSrc: Oral Oral Oral Oral SpO2: 97% 93% 94% 94% Weight: General: Alert, in no acute cardiopulmonary distress. Mental Status: Oriented to person, place and time. Normal affect. Head: Normocephalic. Eyes: Extraocular muscles grossly intact. Ear, Nose and Throat: Oropharynx clear, mucous membranes moist. Ears and nose without masses, lesions or deformities. Neck: Supple, Trachea midline. Respiratory: Clear to auscultation and percussion. No wheezing, rales or rhonchi. Cardiovascular: Heart sounds normal. No thrills. Regular rate and rhythm, no murmurs, rubs or gallops. Gastrointestinal: Abdomen soft, non-tender, non-distended. Normal bowel sounds. Genitourinary: +Varma catheter in place with clear yellow urine in bag Neurologic: +paraparesis +numbness of entire right lower extremity and decreased sensation throughout left lower extremity Skin: No rashes or lesions. No petechiae or purpura. No edema. Musculoskeletal: Strength 5/5 bilateral upper extremities. Strength 0/5 throughout right lower extremity. Strength 0/5 left hip flexion and knee extension. Strength 1/5 left dorsiflexion and plantarflexion. LABS: Lab Results Component Value Date WBC 8.0 07/16/2024 RBC 3.60 (L) 07/16/2024 HGB 10.5 (L) 07/16/2024 HCT 33.3 (L) 07/16/2024 MCV 93.8 07/16/2024 MCHC 31.5 (L) 07/16/2024 RDW 15.7 (H) 07/16/2024 PLT 400 07/16/2024 MPV 9.9 07/16/2024 NRBC 0.0 07/16/2024 DIFF Lab Results Component Value Date LYMPHOPCT 13.4 07/04/2024 NEUTROABS 6.38 07/04/2024 LYMPHSABS 1.13 07/04/2024 MONOABS 0.60 07/04/2024 EOSABS 0.24 07/04/2024 BASOSABS 0.02 07/04/2024 IMMGRANABS 0.07 (H) 07/04/2024 RETIC No results found for: RETIC , RETICCTPCT Lab Results Component Value Date NA 136 07/16/2024 K 4.9 07/16/2024 CL 101 07/16/2024 CO2 32 07/16/2024 GLUCOSE 105 (H) 07/16/2024 BUN 11 07/16/2024 CREATININE 0.55 07/16/2024 CALCIUM 10.2 07/16/2024 PROT 4.9 (L) 07/16/2024 ALBUMIN 2.5 (L) 07/16/2024 BILITOT 0.4 07/16/2024 AST 13 07/16/2024 ALT 26 07/16/2024 PHOS 2.7 06/15/2024 MG 1.5 (L) 07/16/2024 ALKPHOS 112 07/16/2024 EGFR 101 07/16/2024 IMAGING: None DISCHARGE MEDICATIONS: Your medication list START taking these medications Instructions Last Dose Given Next Dose Due baclofen 5 mg tablet Commonly known as: LIORESAL Take 0.5 tablets (2.5 mg total) by mouth 3 (three) times a day. bisacodyL 10 mg suppository Commonly known as: DULCOLAX Insert 1 suppository (10 mg total) into the rectum 1 (one) time each day at the same time. DAILY [id number] cholecalciferol 50 mcg (2,000 unit) tablet Commonly known as: VITAMIN D-3 Take 1 tablet (2,000 Units total) by mouth 1 (one) time each day. enoxaparin 40 mg/0.4 mL syringe Commonly known as: LOVENOX Inject 0.4 mL (40 mg total) under the skin 1 (one) time each day. ferrous sulfate 325 mg (65 mg elemental iron) tablet Take 1 tablet (325 mg total) by mouth 2 (two) times a day. gabapentin 100 mg capsule Commonly known as: NEURONTIN Replaces: gabapentin 800 mg tablet Take 2 capsules (200 mg total) by mouth every 12 (twelve) hours. nicotine 7 mg/24 hr Commonly known as: NICODERM CQ Place 1 patch on the skin 1 (one) time each day. pantoprazole 40 mg EC tablet Commonly known as: PROTONIX Take 1 tablet (40 mg total) by mouth 1 (one) time each day before dinner. Do not crush, chew, or split. polyvinyl alcohol-povidone (PF) 1.4-0.6 % ophthalmic solution Commonly known as: ARTIFICIAL TEARS Administer 2 drops into both eyes if needed for dry eyes. CHANGE how you take these medications Instructions Last Dose Given Next Dose Due acetaminophen 325 mg tablet Commonly known as: TYLENOL What changed: how much to take when to take this reasons to take this Take 3 tablets (975 mg total) by mouth every 8 (eight) hours. oxyCODONE 5 mg immediate release tablet Commonly known as: ROXICODONE What changed: when to take this reasons to take this Take 1 tablet (5 mg total) by mouth 2 (two) times a day if needed for moderate pain or severe pain for up to 6 days. Max Daily Amount: 10 mg valsartan 40 mg tablet Commonly known as: DIOVAN What changed: medication strength how much to take Take 1 tablet (40 mg total) by mouth 1 (one) time each day. CONTINUE taking these medications Instructions Last Dose Given Next Dose Due ALPRAZolam 0.5 mg tablet Commonly known as: XANAX Take 1 tablet (0.5 mg total) by mouth at bedtime as needed for anxiety. Max Daily Amount: 0.5 mg doxepin 100 mg capsule Commonly known as: SINEquan Take 1 capsule (100 mg total) by mouth at bedtime. at bedtime DULoxetine [address] capsule Commonly known as: CYMBALTA Take 1 capsule (60 mg total) by mouth 1 (one) time each day. traZODone 50 mg tablet Commonly known as: DESYREL Take 1.5 tablets (75 mg total) by mouth at bedtime. STOP taking these medications famotidine 20 mg tablet Commonly known as: PEPCID gabapentin 800 mg tablet Commonly known as: NEURONTIN Replaced by: gabapentin 100 mg capsule heparin (UFH) 5,000 unit/mL injection hydrALAZINE 50 mg tablet Commonly known as: APRESOLINE methylPREDNISolone 4 mg tablet Commonly known as: MEDROL DOSPAK metoprolol tartrate 25 mg tablet Commonly known as: LOPRESSOR senna-docusate 8.6-50 mg per tablet Commonly known as: PERICOLACE tiZANidine 2 mg tablet Commonly known as: ZANAFLEX triamterene-hydroCHLOROthiazide 37.5-25 mg per capsule Commonly known as: DYAZIDE Where to Get Your Medications These medications were sent to [facility]/pharmacy #[facility] [address] AT [place] [address] bisacodyL 10 mg suppository enoxaparin 40 mg/0.4 mL syringe You can get these medications from any pharmacy Bring a paper prescription for each of these medications oxyCODONE 5 mg immediate release tablet Information about where to get these medications is not yet available Ask your nurse or doctor about these medications acetaminophen 325 mg tablet baclofen 5 mg tablet cholecalciferol 50 mcg (2,000 unit) tablet ferrous sulfate 325 mg (65 mg elemental iron) tablet gabapentin 100 mg capsule nicotine 7 mg/24 hr pantoprazole 40 mg EC tablet polyvinyl alcohol-povidone (PF) 1.4-0.6 % ophthalmic solution valsartan 40 mg tablet DISCHARGE RECOMMENDATIONS: Code Status: No CPR/Do Not Intubate Diet: Regular diet with thin liquids Weight Bearing Precautions: spinal precautions Wound Care Instructions: leave thoracic surgical incision open to air and monitor daily Patient/PCP Follow Up Instructions: Patient will need to follow up with Neurosurgery. Continue Varma catheter for neurogenic bladder and follow up with PCP for referral to Urology after discharge. Continue suppository daily at 1800 with transfer to [facility] for routine bowel regimen and management of neurogenic bowel. DISCHARGE FOLLOW UP APPOINTMENTS: AUG 06 Post-op with Loan Hall MD Tuesday 1:00 PM (Arrive by 12:45 PM) Please bring your insurance card and/or Information, photo ID, a copy of your current medication list and a copayment if required by your insurance company [facility] - [address] [facility] [id number] documented in this encounter Discharge Instructions * Discharge Instructions* Darline Lara DO - 07/17/2024 7:53 AM EST Code Status: No CPR/Do Not Intubate Diet: Regular diet with thin liquids Weight Bearing Precautions: spinal precautions Wound Care Instructions: leave thoracic surgical incision open to air and monitor daily Patient/PCP Follow Up Instructions: Patient will need to follow up with Neurosurgery. Continue Varma catheter for neurogenic bladder and follow up with PCP for referral to Urology after discharge. Continue suppository daily at 1800 with transfer to [facility] for routine bowel regimen and management of neurogenic bowel. * Attachments The following attachments cannot be sent through Care Everywhere. * Docusate Oral Capsule (DOCUSATE - ORAL) (Tristanian) * Constipation (Tristanian) documented in this encounter Medications at Time of Discharge Medication Sig Dispensed Refills Start Date End Date acetaminophen (TYLENOL) 325 mg tablet Take 3 tablets (975 mg total) by mouth every 8 (eight) hours. 07/17/2024 08/16/2024 baclofen (LIORESAL) 5 mg tablet Take 0.5 tablets (2.5 mg total) by mouth 3 (three) times a day. 07/17/2024 08/16/2024 bisacodyL (DULCOLAX) 10 mg suppository Insert 1 suppository (10 mg total) into the rectum 1 (one) time each day at the same time. DAILY AT 1800 30 each 07/17/2024 08/16/2024 cholecalciferol (VITAMIN D-3) 50 mcg (2,000 unit) tablet Take 1 tablet (2,000 Units total) by mouth 1 (one) time each day. 07/17/2024 08/16/2024 doxepin (SINEquan) 100 mg capsule Take 1 capsule (100 mg total) by mouth at bedtime. at bedtime 05/03/2024 DULoxetine (CYMBALTA) [address] capsule Take 1 capsule (60 mg total) by mouth 1 (one) time each day. 02/11/2024 enoxaparin (LOVENOX) 40 mg/0.4 mL syringeIndications:DVT ppx Inject 0.4 mL (40 mg total) under the skin 1 (one) time each day. 30 each 07/17/2024 08/16/2024 ferrous sulfate 325 mg (65 mg elemental iron) tablet Take 1 tablet (325 mg total) by mouth 2 (two) times a day. 07/17/2024 08/16/2024 gabapentin (NEURONTIN) 100 mg capsule Take 2 capsules (200 mg total) by mouth every 12 (twelve) hours. 07/17/2024 08/16/2024 nicotine (NICODERM CQ) 7 mg/[address] 1 patch on the skin 1 (one) time each day. 07/17/2024 08/16/2024 pantoprazole (PROTONIX) 40 mg EC tablet Take 1 tablet (40 mg total) by mouth 1 (one) time each day before dinner. Do not crush, chew, or split. 07/17/2024 08/16/2024 polyvinyl alcohol-povidone, PF, (ARTIFICIAL TEARS) 1.4-0.6 % ophthalmic solution Administer 2 drops into both eyes if needed for dry eyes. 07/17/2024 08/16/2024 traZODone (DESYREL) 50 mg tablet Take 1.5 tablets (75 mg total) by mouth at bedtime. 04/26/2024 valsartan (DIOVAN) 40 mg tablet Take 1 tablet (40 mg total) by mouth 1 (one) time each day. 07/17/2024 08/16/2024 ALPRAZolam (XANAX) 0.5 mg tablet Take 1 tablet (0.5 mg total) by mouth at bedtime as needed for anxiety. Max Daily Amount: 0.5 mg 06/21/2024 07/21/2024 oxyCODONE (ROXICODONE) 5 mg immediate release tabletIndications:Thor acic myelopathy Take 1 tablet (5 mg total) by mouth 2 (two) times a day if needed for moderate pain or severe pain for up to 6 days. Max Daily Amount: 10 mg 15 tablet 07/17/2024 07/23/2024 documented as of this encounter Ordered Prescriptions Prescription Sig Dispensed Refills Start Date End Da te polyvinyl alcohol-povidone, PF, (ARTIFICIAL TEARS) 1.4-0.6 % ophthalmic solution Administer 2 drops into both eyes if needed for dry eyes. 07/17/2024 08/16/2024 pantoprazole (PROTONIX) 40 mg EC tablet Take 1 tablet (40 mg total) by mouth 1 (one) time each day before dinner. Do not crush, chew, or split. 07/17/2024 08/16/2024 nicotine (NICODERM CQ) 7 mg/[address] 1 patch on the skin 1 (one) time each day. 07/17/2024 08/16/2024 ferrous sulfate 325 mg (65 mg elemental iron) tablet Take 1 tablet (325 mg total) by mouth 2 (two) times a day. 07/17/2024 08/16/2024 enoxaparin (LOVENOX) 40 mg/0.4 mL syringeIndications:DVT ppx Inject 0.4 mL (40 mg total) under the skin 1 (one) time each day. 30 each 07/17/2024 08/16/2024 cholecalciferol (VITAMIN D-3) 50 mcg (2,000 unit) tablet Take 1 tablet (2,000 Units total) by mouth 1 (one) time each day. 07/17/2024 08/16/2024 bisacodyL (DULCOLAX) 10 mg suppository Insert 1 suppository (10 mg total) into the rectum 1 (one) time each day at the same time. DAILY AT 1800 30 each 07/17/2024 08/16/2024 baclofen (LIORESAL) 5 mg tablet Take 0.5 tablets (2.5 mg total) by mouth 3 (three) times a day. 07/17/2024 08/16/2024 valsartan (DIOVAN) 40 mg tablet Take 1 tablet (40 mg total) by mouth 1 (one) time each day. 07/17/2024 08/16/2024 gabapentin (NEURONTIN) 100 mg capsule Take 2 capsules (200 mg total) by mouth every 12 (twelve) hours. 07/17/2024 08/16/2024 acetaminophen (TYLENOL) 325 mg tablet Take 3 tablets (975 mg total) by mouth every 8 (eight) hours. 07/17/2024 08/16/2024 oxyCODONE (ROXICODONE) 5 mg immediate release tabletIndications:Thor acic myelopathy Take 1 tablet (5 mg total) by mouth 2 (two) times a day if needed for moderate pain or severe pain for up to 6 days. Max Daily Amount: 10 mg 15 tablet 07/17/2024 07/23/2024 documented in this encounter Discharge Disposition Disposition Code Departure Means Destination Comment s Shelter Facility documented in this encounter Progress Notes * Shari Rivas RN - 07/17/2024 2:16 PM EST Discharge note: CM Met with patient with patient at bedside to discuss discharge plan.Patient to be discharged today 07/17/24 to [facility] ambulance arranged for 3:30pm med nec completed.Patient aware and in agreement with transition plan had no further questions or concerns. * Joleen Hollingsworth - 07/17/2024 9:00 AM EST Social Work Note Integrated Hematology Nurse Educator: DX: HX of anxiety and some depressive symptoms: Met with the patient this morning at bedside to wish her well as she is discharging today. She was in a good space and expressed hopefulness that someday she will walk again. She expressed her gratitude for all the help and support she received. She is looking forward to the next steps in her journey. She is all set on my end. Joleen Hollingsworth MS Clinician * Ben Miller OT - 07/16/2024 12:30 PM EST [facility] Occupational Therapy Discharge Note 07/16/24 Patient: Yuly Montoya : 1955 Age: 68 y.o. Gender: female Diagnosis: Lower extremity weakness Primary Rehab (Etiologic) Diagnosis: Patient Active Problem List Diagnosis Lumbar spondylosis Onychomycosis Pain in toe Sacroiliitis (CMS/HCC) Spondylolisthesis Cervical spondylosis Spinal stenosis of thoracic region Thoracic spinal stenosis Age-related macular degeneration Anxiety Atrial flutter (CMS/HCC) Obstructive sleep apnea syndrome Deep vein thrombosis (DVT) of lower extremity (CMS/HCC) History of artificial joint Hypertension Osteoarthritis of hip Peripheral venous insufficiency S/P tonsillectomy and adenoidectomy Bradycardia Thoracic myelopathy Lower extremity weakness PMH: Past Medical History: Diagnosis Date Adverse effect of anesthesia several hrs after sx pt had Panic attack Anxiety Arthritis Hypertension Irregular heart beat Joint pain Lymphedema Macular degeneration PSH: Past Surgical History: Procedure Laterality Date ABLATION OF DYSRHYTHMIC FOCUS BACK SURGERY N/A s/p L2-3 decompression 09/13/[address] Markham, s/p lumbar discectomy Dr. Bales, L3-4, L4-[address] Yarbrough February 2012, subsequent L4-S1 fusion in [place] with Dr. Cagle. CARPAL TUNNEL RELEASE Right TONSILLECTOMY ADENOIDECTOMY, BILATERAL MYRINGOTOMY AND TUBES TOTAL HIP ARTHROPLASTY Left 2022 TOTAL KNEE ARTHROPLASTY Bilateral Allergies: has No Known Allergies. Precautions: Precautions Medical Precautions: Fall Risk Safety Interventions: Call doss within reach, Bed alarm RUE Weight Bearing Status: Full LUE Weight Bearing Status: Full RLE Weight Bearing Status: Full LLE Weight Bearing Status: Full Orthopedic Precautions: Back Precautions Pain: Pain Assessment: No/denies pain Patient Subjective: I would love to shower Session Summary from 07/16/24 D/c completed, please refer to containers below CAMS Discharge Is there evidence of an acute change in mental status from the patient's baseline?: No (07/16/24 1230 : Ben Miller, LYSSA) Inattention: Behavior not present (07/16/24 1230 : Ben Miller, LYSSA) Disorganized thinking: Behavior not present (07/16/24 1230 : Ben Miller, OT) Altered level of consciousness: Behavior not present (07/16/24 1230 : Ben Miller, OT) BIMS Discharge 15 (07/16/24 1230 : Ben Miller, OT) Hearing, Speech, and Vision- Discharge Hearing, Speech, and Vision Ability to Hear: Adequate Ability to See in Adequate Light: Impaired Expression of Ideas and Wants: Without difficulty Understanding Verbal and Non-Verbal Content: Understands FUNCTIONAL STATUS ADL ASSIST Eating Assistance Needed: Independent Oral Hygiene Oral Hygiene Assistance Needed: Independent CARE Score - Oral Hygiene: 6 Toileting Toileting Hygiene Assistance Needed: Physical assistance Physical Assistance Level: 76% or more Comment: commode CARE Score - Toileting Hygiene: 2 Bathing Shower/Bathe Self Assistance Needed: Physical assistance Physical Assistance Level: 26%-50% Comment: LH sponge CARE Score - Shower/Bathe Self: 3 UE Dressing Upper Body Dressing Assistance Needed: Set-up / clean-up Physical Assistance Level: No physical assistance Comment: Seated in w/c with back support. CARE Score - Upper Body Dressin LE Dressing Lower Body Dressing Assistance Needed: Physical assistance Physical Assistance Level: 51%-75% Comment: bed level CARE Score - Lower Body Dressin Footwear Putting On/Taking Off Footwear Assistance Needed: Physical assistance Physical Assistance Level: Total assistance Comment: bed level CARE Score - Putting On/Taking Off Footwear: 1 Toilet Transfer Assistance Needed: Physical assistance Tub/Shower Transfer Dep rolling commode in walk in shower stall. Equipment Provided: TBD at next level of care Vision: Vision - Complex Assessment Ocular Range of Motion: Within Functional Limits Head Position: Upright, centered, looking straight ahead, not leaning any direction Vision Comments: pt has macular degeneration Perception: Perception Inattention/Neglect: Appears intact Initiation: Appears intact Motor Planning: Appears intact Proprioception: Proprioception Proprioception: Severe deficits in the RLE, Severe deficits in the LLE (per PT) Proprioception Comments: (no UE deficits) Skin: Sensation: Sensation Light Touch: (no deficits in B UEs) Sensation Comments: no bladder or bowel sensation Hand Function: Hand Function Gross Grasp: Functional Coordination: Coordination Coordination: Functional Balance: Static sitting balance Static Sitting Balance Static Sitting-Level of Assistance: Supervision or touching assistance Dynamic sitting balance Dynamic Sitting Balance Dynamic Sitting-Level of Assistance: Partial/moderate assistance Static standing balance Static Standing Balance Static Standing-Level of Assistance: Not attempted, medical/safety concerns Dynamic standing balance Dynamic Standing Balance Dynamic Standing-Level of Assistance: Not attempted, medical/safety concerns UPPER EXTREMITY ASSESSMENTS RUE Assessment RUE Assessment: Within Functional Limits RUE Assessment Comments: No Formal MMT due to spinal precautions LUE Assessment LUE Assessment: Within Functional Limits LUE Assessment Comments: No Formal MMT due to spinal precautions. Procedures/Interventions: ADLs/IADLs Self Care/Home Management (ADLs) Time Entry: 85 Pt seated in w/c upon arrival, finishing brushing teeth from w/c level mod I. Pt requesting shower.Pt positioned self at bed in prep for SB txfer with S. Assist to swing back arm rest and to place SB. Pt able to self direct and verbalize steps of txfer. SB from w/c>bed with overall partial A with B Les blocked. Sit>Jacinto[ine partial A for B Les. Pt rolling R><L partial A for Les, while pt hiked LB clothing below hips. Verbal cues for hand placement in order to maximize Ind with clothing management. Assist to remove from remainder of B Les. Dep to doff socks and isiah wraps. Pt assumedlong sit from elevated supine, with B Ues on bed rail, assist to hike shirt up posteriorly, pt doffed remainder of way. Pt hoyered from bed>commode. Seated on rolling commode pt dep transported toshower. Pt bathed entirely seated with use of hand held shower and lH sponge, with overall partial A for bathing B feet and buttocks. Pt noted to have unstable sitting balance with RUE release from commode this date, able to stabilize balance while maintaining unilateral UE support. Post shower pt w heeled back to room. Pt combed hair at sink with LUE after JACINTO. Pt hoyered from bed>commode. Oncein bed pt assumed long siting with BUE on bed rail for removal of clarisa pad. RN present to change/apply dressings. Pt donned shirt in elevated supine with assist to hike down posteriorly, due to pt requiring B UE support to maintain long sit. Pt donned pants/brief with overall max A due to fit of pa nts, rolling with use of bed rails. Dep to apply isiah wraps, second person present to support LE while this therapist isiah wrapped. End of session bed alarm on, call doss in reach, B PUPP boots donned,and all needs mets. Re-eval: 15 D/c evaluation please refer to containers above. OT Plan OT Discharge Recommendations: snf facility placement Equipment Recommended: (TBD at next level of care) OT - OK to Discharge: Yes OT Discharge Recommendations: snf facility placement Equipment Recommended: (TBD at next level of care) Barriers to Discharge: environemntal concerns, functional status, pt lives alone. OT - OK to Discharge: Yes Goals: Encounter Problems Encounter Problems (Active) Template: Occupational Therapy Problem: OT Assisted Goals Dates: Start: 06/26/24 Goal: pt will improve dynamic sitting balance to S, for up to 15 minutes, while performing UB ADL. Dates: Start: 06/26/24 Expected End: 07/17/24 Outcomes Date/Time User Outcome 07/16/24 1348 Ben Miller OT Progressing Goal: pt will be able to independently direct care, in order to perform toileting safely, while allowing greatest level of INDEPENDENCE (including DME use, txfer techniques, and strategies) Dates: Start: 06/26/24 Expected End: 07/17/24 Outcomes Date/Time User Outcome 07/16/24 1348 Ben Miller OT Progressing Goal: Pt will tolerate 3/3 meals OOB Dates: Start: 06/26/24 Expected End: 07/17/24 Outcomes Date/Time User Outcome 07/16/24 1348 Ben Miller OT Progressing Goal: Pt will perform LB dressing with partial A, use of LH ADAPTIVE EQUIPTMENT prn Dates: Start: 06/26/24 Expected End: 07/17/24 Outcomes Date/Time User Outcome 07/16/24 1348 Ben Miller OT Progressing Goal: pt will perform toileting with overall max A. Dates: Start: 06/26/24 Expected End: 07/17/24 Outcomes Date/Time User Outcome 07/16/24 1348 Ben Miller OT Progressing Goal: pt will don shirt with S, sitting unsupported. Dates: Start: 06/26/24 Expected End: 07/17/24 Description: Outcomes Date/Time User Outcome 07/16/24 1348 Ben Miller OT Progressing Problem: OT Short Term Goals Dates: Start: 06/26/24 Goal: Pt will perform rolling R><L with use of log roll technique, partial A, for pressure relief. Dates: Start: 06/26/24 Expected End: 07/03/24 Outcomes Date/Time User Outcome 07/16/24 134Meaghan Miller OT Progressing Goal: Pt will tolerate sitting OOB for 1/3 meals Dates: Start: 06/26/24 Expected End: 07/03/24 Outcomes Date/Time User Outcome 07/16/24 134Meaghan Miller OT Progressing Goal: Pt will sit at EOB for 10 minutes, with no more than partial A for balance to increase Potter with EOB ADL Dates: Start: 06/26/24 Expected End: 07/03/24 Outcomes Date/Time User Outcome 07/16/24 134Meaghan Miller OT Progressing Goal: Pt will verbalize 3 pressure relief techniques in order to reduce sophia of pressure injury Dates: Start: 06/26/24 Expected End: 07/03/24 Outcomes Date/Time User Outcome 07/16/24 Ebony Miller OT Progressing Goal: Pt will perform oral hygiene w/c level, with JACINTO. Dates: Start: 06/26/24 Expected End: 07/03/24 Outcomes Date/Time User Outcome 07/16/24 134Meaghan Miller OT Progressing Encounter Problems (Resolved) There are no resolved problems. OT Assessment OT Assessment OT Assessment Results: Decreased ADL status, Decreased endurance, Decreased sensation, Decreased functional mobility, Decreased trunk control for functional activities, Impaired tone Prognosis: Good Evaluation/Treatment Tolerance: Patient tolerated treatment well Comments: Pt demoing decreased sitting balance in shower with R UE release from commode frame, S for sitting balance, question if due to postioning on commode? pt would benefit from skilled OT at next level of care in order to maximize IND with self care and mobility, and reduce health care assistant burden. Medical Staff Made Aware: Yes Comments: Need to change dressing post shower. Education Documentation Self Advocacy/Consumer Competency, taught by Ben Miller OT at 07/16/2024 2:38 PM. Learner: Patient Readiness: Acceptance Method: Explanation, Demonstration Response: Demonstrated Understanding, Verbalizes Understanding Skin Care/Pressure Ulcer Prevention, taught by Ben Miller OT at 07/16/2024 2:38 PM. Learner: Patient Readiness: Acceptance Method: Explanation, Demonstration Response: Demonstrated Understanding, Verbalizes Understanding ADL Training, taught by Ben Miller OT at 07/16/2024 2:38 PM. Learner: Patient Readiness: Acceptance Method: Explanation, Demonstration Response: Demonstrated Understanding, Verbalizes Understanding Precautions, taught by Ben Miller OT at 07/16/2024 2:38 PM. Learner: Patient Readiness: Acceptance Method: Explanation, Demonstration Response: Demonstrated Understanding, Verbalizes Understanding Body Mechanics, taught by Ben Miller OT at 07/16/2024 2:38 PM. Learner: Patient Readiness: Acceptance Method: Explanation, Demonstration Response: Demonstrated Understanding, Verbalizes Understanding Teach positioning to prevent injury, taught by Ben Miller OT at 07/16/2024 2:38 PM. Learner: Patient Readiness: Acceptance Method: Explanation, Demonstration Response: Demonstrated Understanding, Verbalizes Understanding Education Comments No comments found. Start/Stop Time OT Time Calculation OT Start Time: 1230 OT Stop Time: 1410 OT Time Calculation (min): 100 min Therapy Minutes: Occupational Therapy OT Individual: 100 * Umm Wood NP - 07/16/2024 10:28 AM EST Images from the original note were not included. [facility] PROGRESS NOTE Date: 07/16/2024 Author: Umm Wood NP Patient ID: Yuly Montoya is a 68 y.o. female : 1955 MR#: [id number] SUBJECTIVE Subjective Pt states she feels tired today heart burn improved last pm no reflux sxs She is eating and drinking well States spasms in her legs are much improved No improved ROM of the lower extremities Denies any increased weakness Denies neck pain ROS Constitutional :no fever chills , appetite fair, sleeping well, see above HEENT: denies headaches Respiratory: denies shortness of breath, coughing or wheezing Cardiac: denies chest pain, palpitations, : No abd pain, no , c/o reflux sxs at night Genitourinary: denies any dysuria frequency urgency Musculoskeletal: No joint pain ,back pain Allergies Patient has no known allergies. Current Medications: acetaminophen, 975 mg, oral, q8h EDEN baclofen, 2.5 mg, oral, TID bisacodyL, 10 mg, rectal, q24h cholecalciferol, 2,000 Units, oral, Daily doxepin, 100 mg, oral, Nightly DULoxetine, 60 mg, oral, Daily ferrous sulfate, 325 mg, oral, BID gabapentin, 200 mg, oral, q12h EDEN heparin (UFH), 5,000 Units, subcutaneous, q8h EDEN Lactobacillus acidoph-L.bulgar, 2 tablet, oral, TID with meals nicotine, 1 patch, transdermal, Daily pantoprazole, 40 mg, oral, Daily before dinner artificial tears, 2 drop, Both Eyes, TID traZODone, 75 mg, oral, Nightly valsartan, 40 mg, oral, Daily PRN medications: ALPRAZolam, aluminum-magnesium hydroxide-simethicone, bisacodyL, docusate sodium, magnesium hydroxide, oxyCODONE OBJECTIVE Vitals: 07/15/24 1325 07/15/24 2032 07/16/24 0536 07/16/24 0932 BP: 121/76 (!) 128/100 130/86 (!) 141/93 BP Location: Right arm Right arm Patient Position: Lying Lying Pulse: 96 92 87 81 Resp: 17 18 18 Temp: 36.6 ??C (97.9 ??F) 36.5 ??C (97.7 ??F) 36.6 ??C (97.9 ??F) TempSrc: Oral Oral SpO2: 96% 95% 97% 93% Weight: PHYSICAL EXAM General-NAD, cognitively- intact , AAO- ??3 , appears stated age, appears comfortable Short thick neck girth has a tendency to sit with hunched kyphotic posture Heart-RRR, normal S1, S2, no murmurs rubs Lungs-CTA B no adventitious breath sounds. Abdomen-S NT BS ??4, obese no distention Extremities- no CCE, cap refill brisk, DPP Neuromuscular-focally unchanged lower extremity weakness paraparesis noted mild increased right digital range of motion of the foot integumentary- turgor good, skin warm dry intact, no rashes. LABS HEMATOLOGY Lab Results Component Value Date WBC 5.3 07/11/2024 HGB 9.9 (L) 07/11/2024 HCT 30.4 (L) 07/11/2024 MCV 91.8 07/11/2024 PLT 403 (H) 07/11/2024 CHEMISTRY Lab Results Component Value Date GLUCOSE 105 (H) 07/16/2024 NA 136 07/16/2024 K 4.9 07/16/2024 CO2 32 07/16/2024 CL 101 07/16/2024 BUN 11 07/16/2024 CREATININE 0.55 07/16/2024 EGFR 101 07/16/2024 CALCIUM 10.2 07/16/2024 MG 1.5 (L) 07/16/2024 PHOS 2.7 06/15/2024 ANIONGAP 3 07/16/2024 Imaging: ASSESSMENT & PLAN Thoracic spinal stenosis, Hx spinal mass, s/p 2 thoracic decompression surgeries - 06/11 she was transferred to [facility] - S/p T5-T8 fusion and T5-7 decompression T6-7 facetectomy and removal of mass. By Dr. Hall at [facility] in [place] Biopsy- Fragments of benign bone and cartilage with focus of necrotic bone. No malignancy identified. Status post Medrol Dosepak Pt w/ left foot plantarflexion and dorsiflexion as well as improved sensation on the left lower extremity No Sensation on the right lower extremity -minimal toe movement neurogenic BB gabapentin 200 mg twice daily 07/10- reports spasms to lower extremity since being off baclofen started baclofen 5 mg 3 times daily 07/11 baclofen dose reduced to 2.5 due to truncal weakness Now improved Treatment per PMR neurogenic bowel and bladder Varma cath recently DC'd due to sediment in the urine Urine 07/02 + E. coli pansensitive Currently on cefuroxime twice daily recommend treatment for 10 days due to complexity-hospitalization/Varma On bowel regimen/program UTI see above Cefuroxime total 10 days General malaise/fatigue +COVID on 07/[address] 10 days -now patient off isolation asymptomatic Treated with conservative treatment -vitamin C D and zinc Continue incentive spirometry. Mucinex may be DC'd History of cervical spondylolisthesis with central canal stenosis Soft cervical collar when up therapy Atrial flutter s/p ablation Recent bradycardia now on lower dose of BB Toprol XL 25 mg discontinue as blood pressure has been low Rate controlled in the 50-60s monitor Hypertension Recent soft BP's /Hypotension S/p -Toprol Triamterene hydrochlorothiazide hydralazine and Diovan DC'd 07/12- > BP has been running on the higher side. Resume Diovan 40mg BP currently stable 120s Lymphedema acute on chronic Isiah wraps bilaterally. No pain to the extremities. Recent steroids IVF resolved Anxiety Mood stable Maintain on doxepin 100 mg nightly Duloxetine 60 mg Trazodone 75 mg nightly Anemia 10 and 31 on 06/27 Brief downward trend to 8.8 and 27 down 9.9 and 30 Presumed to have an element of hemoconcentration followed by dilution No signs of bleeding currently on PPI continue Feosol check guaiacs-negative thus far GERD NO CP SOB- worse at night Patient states has been having reflux symptoms at night with some burning in her throat Patient is getting PPI at 6:30 in the morning Better on 430 ppi ReCommend DC any not necessary meds Patient is also on ferrous sulfate which can contribute DC vitamin C and vitamin D DC ferrous sulfate once hemoglobin greater than 10 DC guaifenesin DC zinc DVT prophylaxis with heparin DAILY CARE CHECKLIST * Darline Lara, - 07/16/2024 10:24 AM EST Images from the original note were not included. [facility] Daily Progress Note Patient name: Yuly Montoya : 1955 SUBJECTIVE: Patient seen and examined at bedside today. No acute events overnight. Denies headaches, dizziness,shortness of breath, chest pain, nausea, constipation. Reports BM last evening after suppository. Denies incontinent episodes of stool. Varma catheter remains in place. She reports that pain is controlled. No new concerns today. Participating in therapies: Pt tolerating tilt table x32 min total, progressing to tilt table at 45degrees, BP stable throughout. OBJECTIVE: Vitals: 07/15/24 1325 07/15/24 2032 07/16/24 0536 07/16/24 0932 BP: 121/76 (!) 128/100 130/86 (!) 141/93 BP Location: Right arm Right arm Patient Position: Lying Lying Pulse: 96 92 87 81 Resp: 17 18 18 Temp: 36.6 ??C (97.9 ??F) 36.5 ??C (97.7 ??F) 36.6 ??C (97.9 ??F) TempSrc: Oral Oral SpO2: 96% 95% 97% 93% Weight: Physical Examination: General: Alert, in no acute cardiopulmonary distress. Mental Status: Oriented to person, place and time. Normal affect. Head: Normocephalic. Eyes: Pupils are equal, round and reactive to light. Extraocular muscles intact. Ear, Nose and Throat: Oropharynx clear, mucous membranes moist. Ears and nose without masses, lesions or deformities. Neck: Supple, Trachea midline. Respiratory: Clear to auscultation and percussion. No wheezing, rales or rhonchi. Cardiovascular: Heart sounds normal. No thrills. Regular rate and rhythm, no murmurs, rubs or gallops. Gastrointestinal: Abdomen soft, non-tender, non-distended. Normal bowel sounds. Genitourinary: +Varma catheter in place with clear yellow urine in bag Neurologic: b/l LE weakness. Decreased ssensation to b/l LE R>l and decreased sensation to abd Skin: No rashes or lesions. No petechiae or purpura. No edema. Musculoskeletal: RLE 0/5 strength. LLE 0/5 hip flexion and knee extension. LLE 1/5 left dorsiflexion and plantarflexion. CURRENT INPATIENT MEDICATIONS: Current Facility-Administered Medications: acetaminophen (TYLENOL) tablet 975 mg, 975 mg, oral, q8h Darline HARMON DO, 975 mg at 07/16/24 0553 ALPRAZolam (XANAX) tablet 0.5 mg, 0.5 mg, oral, Nightly PRN, THEODORA Lawson, 0.5 mg at 07/15/24 2205 aluminum-magnesium hydroxide-simethicone (MAALOX) 200-200-20 mg/5 mL suspension 30 mL, 30 mL, oral,q4h PRN, THEODORA Lawson, 30 mL at 07/14/24 1114 baclofen (LIORESAL) tablet 2.5 mg, 2.5 mg, oral, TID, Darline Lara, DO, 2.5 mg at 07/16/24 0935 bisacodyL (DULCOLAX) suppository 10 mg, 10 mg, rectal, Daily PRN, THEODORA Lawson bisacodyL (DULCOLAX) suppository 10 mg, 10 mg, rectal, q24h, Darline Lara, DO, 10 mg at 07/15/24 191 cholecalciferol (VITAMIN D-3) tablet 2,000 Units, 2,000 Units, oral, Daily, THEODORA Pope, 2,000 Units at 07/16/24 0935 docusate sodium (COLACE) capsule 100 mg, 100 mg, oral, BID PRN, Darline Lara DO, 100 mg at 07/11/24 1157 doxepin (SINEquan) capsule 100 mg, 100 mg, oral, Nightly, THEODORA Lawson, 100 mg at 07/15/24 2204 DULoxetine (CYMBALTA) DR capsule 60 mg, 60 mg, oral, Daily, THEODORA Lawson, 60 mg at 07/16/24 0935 ferrous sulfate tablet 325 mg, 325 mg, oral, BID, Umm Wood NP, 325 mg at 07/16/24 0934 gabapentin (NEURONTIN) capsule 200 mg, 200 mg, oral, q12h EDEN, Darline A Jane, DO, 200 mg at 07/16/24 0935 heparin (UFH) injection 5,000 Units, 5,000 Units, subcutaneous, q8h EDEN, Darline A Jane, DO, 5,000 Units at 07/16/24 0554 Lactobacillus acidoph-L.bulgar (FLORANEX) tablet 2 tablet, 2 tablet, oral, TID with meals, Umm Wood NP, 2 tablet at 07/16/24 0935 magnesium hydroxide (MILK OF MAGNESIA) 400 mg/5 mL suspension 30 mL, 30 mL, oral, Daily PRN, THEODORA Lawson nicotine (NICODERM CQ) 7 mg/24 hr 1 patch, 1 patch, transdermal, Daily, THEODORA Pope, 1 patch at 07/15/24 0948 oxyCODONE (ROXICODONE) immediate release tablet 5 mg, 5 mg, oral, q6h PRN, Darline Lara DO,5 mg at 07/15/242204 pantoprazole (PROTONIX) EC tablet 40 mg, 40 mg, oral, Daily before dinner, Umm Wood, TAMMI, 40 mg at 07/15/24 1639 polyvinyl alcohol-povidone (PF) (ARTIFICIAL TEARS) 1.4-0.6 % ophthalmic solution 2 drop, 2 drop, Both Eyes, TID, Darline Lara DO, 2 drop at 07/15/242205 traZODone (DESYREL) tablet 75 mg, 75 mg, oral, Nightly, THEODORA Lawson, 75 mg at 07/15/24 220 valsartan (DIOVAN) tablet 40 mg, 40 mg, oral, Daily, THEODORA Pope, 40 mg at 07/16/24 0934 LABS: Lab Results Component Value Date WBC 5.3 07/11/2024 RBC 3.30 (L) 07/11/2024 HGB 9.9 (L) 07/11/2024 HCT 30.4 (L) 07/11/2024 MCV 91.8 07/11/2024 MCHC 32.6 07/11/2024 RDW 15.9 (H) 07/11/2024 PLT 403 (H) 07/11/2024 MPV 9.3 07/11/2024 NRBC 0.0 07/11/2024 DIFF Lab Results Component Value Date LYMPHOPCT 13.4 07/04/2024 NEUTROABS 6.38 07/04/2024 LYMPHSABS 1.13 07/04/2024 MONOABS 0.60 07/04/2024 EOSABS 0.24 07/04/2024 BASOSABS 0.02 07/04/2024 IMMGRANABS 0.07 (H) 07/04/2024 RETIC No results found for: RETIC , RETICCTPCT Lab Results Component Value Date NA 136 07/16/2024 K 4.9 07/16/2024 CL 101 07/16/2024 CO2 32 07/16/2024 GLUCOSE 105 (H) 07/16/2024 BUN 11 07/16/2024 CREATININE 0.55 07/16/2024 CALCIUM 10.2 07/16/2024 PROT 4.9 (L) 07/16/2024 ALBUMIN 2.5 (L) 07/16/2024 BILITOT 0.4 07/16/2024 AST 13 07/16/2024 ALT 26 07/16/2024 PHOS 2.7 06/15/2024 MG 1.5 (L) 07/16/2024 ALKPHOS 112 07/16/2024 EGFR 101 07/16/2024 IMPRESSION & PLAN: #Impaired mobility and self care -Secondary to thoracic myelopathy -Continue with PT, OT, and nursing care #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 -s/p T5-T8 fusion and T5-7 decompression T6-7 facetectomy and removal of mass (non malignant) by [facility] at [place] -Leave surgical incision open to air and monitor daily -5 day course of Methylprednisolone 4 mg daily completed on 06/30/24 -continue therapies -f/u NSG after discharge #Pain management -Tylenol 975mg Q8H -Gabapentin 800 mg BID --> changed to 400mg Q8H on 06/27 due to hypotension --> decreased to 200mg BID on 07/04 due to fatigue -Oxycodone 5mg Q6H PRN #Spasticity management -Tizanidine 2 mg daily 06/26 held due to hypotension --> discontinued on 06/27 due to hypotension -Baclofen 5 mg TID started 07/10 --> decreased to 2.5mg TID on 07/11 due to worsening trunk stability #COVID-19 -patient with significant fatigue, asymptomatic and afebrile otherwise -tested positive on 07/04 -isolation precautions x10 days completed #Hypotension, Resolved -s/p IVF on 06/27 -medications adjusted as outlined below -likely will continue to have soft BP secondary to spinal cord injury -monitor #History of Hypertension -Hydralazine 75 mg BID discontinued 06/27 due to hypotension -Dyazide 37.5-25 mg daily discontinued 06/26 due to hypotension -Valsartan 320 mg daily discontinued 06/26 due to hypotension -Metoprolol succinate 25 mg daily discontinued on 07/04 due to soft BP and fatigue #Anxiety -Doxepin 100 mg nightly -Duloxetine 60 mg daily -Trazodone 75 mg nightly -Xanax 0.5mg QHS PRN #GERD -Famotidine 20 mg daily #Hyponatremia, Resolved issue -sodium 124 on 06/26 --> 129 on 06/27 --> 131 on 06/28 --> 136 on 07/02 --> 138 on 07/04 -->134 on 07/06 --> 136 on 07/16 -resolved #Anemia -Ferrous sulfate 325mg BID #UTI -UA 07/03 positive for UTI -Urine culture 07/03 showed >100K E Coli -Cefuroxime 250mg BID x10 days completed on 07/16 #Neurogenic bladder -Varma catheter removed on 07/02 as per Medicine team recs --> continued to retain --> Varma replaced on 07/04 #Neurogenic bowel -suppository daily at 1800 and transfer to [facility] DVT ppx: Heparin 5000 units SQ TID changed to Lovenox 40mg daily starting on 07/17 to prevent multiple injections per day * Shari Rivas RN - 07/16/2024 10:02 AM EST Patient accepting bed offer at [facility] spoke with Katarzyna [phone] will initiate authorization process. * Jocelyn Carballo PT - 07/16/2024 9:30 AM EST [facility] Physical Therapy Discharge Evaluation Note 07/16/24 Patient: Yuly Montoya : 1955 Age: 68 y.o. Gender: female Primary Language: Tristanian Diagnosis: Lower extremity weakness HPI: see EMR Past Medical History: Diagnosis Date Adverse effect of anesthesia several hrs after sx pt had Panic attack Anxiety Arthritis Hypertension Irregular heart beat Joint pain Lymphedema Macular degeneration Past Surgical History: Procedure Laterality Date ABLATION OF DYSRHYTHMIC FOCUS BACK SURGERY N/A s/p L2-3 decompression 09/13/[address] Markham, s/p lumbar discectomy Dr. Bales, L3-4, L4-[address] Yarbrough February 2012, subsequent L4-S1 fusion in [place] with Dr. Cagle. CARPAL TUNNEL RELEASE Right TONSILLECTOMY ADENOIDECTOMY, BILATERAL MYRINGOTOMY AND TUBES TOTAL HIP ARTHROPLASTY Left 2022 TOTAL KNEE ARTHROPLASTY Bilateral Allergies: has No Known Allergies. Precautions: Medical Precautions: Fall Risk Safety Interventions: Call doss within reach, Bed alarm RUE Weight Bearing Status: Full LUE Weight Bearing Status: Full RLE Weight Bearing Status: Full LLE Weight Bearing Status: Full Orthopedic Precautions: Back Precautions SUBJECTIVE I hope I can continue my therapy at the next place to be able to walk again one day Pain: Pain Assessment: No/denies pain OBJECTIVE General Observation: Pt supine in bed, eager to participate in therapy Cognition/Communication: Orientation Level: Oriented X4 Vitals: BP: 121/76 Heart Rate: 96 SpO2: 96 % Skin: Defer to nursing documentation for skin assessment, skin intact on heels Sensation: Light Touch: Severe deficits in the RLE, Partial deficits in the LLE (Absent sensation RLE up to grossly T5 dermatome. Grossly intact light touch LLE, diminished sensation in foot compared to proximal) Proprioception: Proprioception: Severe deficits in the RLE, Severe deficits in the LLE (absent on RLE due to no sensation. LLE pt inaccurate at 1st MTP, talocrural, and knee joints) Perception: Inattention/Neglect: Appears intact Initiation: Appears intact Motor Planning: Appears intact Coordination: Coordination: Fine and gross motor impaired Postural Control: Trunk Control: (impaired trunk control due to weakness, reliant on UEs to maintain balance) Balance: Static Sitting Balance Static Sitting-Level of Assistance: Supervision or touching assistance Dynamic Sitting Balance Dynamic Sitting-Level of Assistance: Partial/moderate assistance Static Standing Balance Static Standing-Level of Assistance: Not attempted, medical/safety concerns Dynamic Standing Balance Dynamic Standing-Level of Assistance: Not attempted, medical/safety concerns Strength: Strength RLE RLE Overall Strength: (0/5) R Hip Flexion: 0/5 R Hip Extension: 0/5 R Knee Flexion: 0/5 R Knee Extension: 0/5 R Ankle Dorsiflexion: 0/5 R Ankle Plantar Flexion: 0/5 Strength LLE L Hip Flexion: 0/5 L Hip Extension: 0/5 L Knee Flexion: 2-/5 L Knee Extension: 1/5 L Ankle Dorsiflexion: 2+/5 L Ankle Plantar Flexion: 2+/5 Range of Motion: PROM WFL Edema: Moderate edema lower extremities (pt with lymphedema), managing with isiah wraps as pt is unable to fit into custom compression sleeves at home Tone: WFL, intermittent ms spasms in lower extremities to stimulation on feet QUALITY INDICATORS SCORING: Bed Mobility Roll Left and Right Assistance Needed: Supervision Physical Assistance Level: No physical assistance Comment: bedrails CARE Score - Roll Left and Right: 4 Sit to Lying Assistance Needed: Physical assistance Physical Assistance Level: 26%-50% CARE Score - Sit to Lyin Lying to Sitting on Side of Bed Assistance Needed: Physical assistance Physical Assistance Level: 26%-50% CARE Score - Lying to Sitting on Side of Bed: 3 Transfers Sit to Stand Reason if not Attempted: Medical concerns CARE Score - Sit to Stand: 88 Chair/Uyf-nq-Wdyph Transfer Assistance Needed: Physical assistance Physical Assistance Level: 76% or more Comment: suzanne CARE Score - Chair/Dho-wc-Apkor Transfer: 2 Toilet Transfer Assistance Needed: Physical assistance Physical Assistance Level: Total assistance Comment: clarisa CARE Score - Toilet Transfer: 1 Car Transfer Reason if not Attempted: Safety concerns CARE Score - Car Transfer: 88 Ambulation Walk 10 Feet Reason if not Attempted: Medical concerns CARE Score - Walk 10 Feet: 88 Walk 50 Feet with Two Turns Reason if not Attempted: Medical concerns CARE Score - Walk 50 Feet with Two Turns: 88 Walk 150 Feet Reason if not Attempted: Medical concerns CARE Score - Walk 150 Feet: 88 Walking 10 Feet on Uneven Surfaces Reason if not Attempted: Medical concerns CARE Score - Walking 10 Feet on Uneven Surfaces: 88 Stairs 1 Step (Curb) Reason if not Attempted: Medical concerns CARE Score - 1 Step (Curb): 88 4 Steps Reason if not Attempted: Medical concerns CARE Score - 4 Steps: 88 12 Steps Reason if not Attempted: Medical concerns CARE Score - 12 Steps: 88 Senior Embedded Software Engineer Object Picking Up Object Reason if not Attempted: Medical concerns CARE Score - Picking Up Object: 88 Wheelchair Uses a Wheelchair/Scooter? Uses a Wheelchair/Scooter?: Yes Wheel 50 Feet with Two Turns Assistance Needed: Independent Physical Assistance Level: No physical assistance CARE Score - Wheel 50 Feet with Two Turns: 6 Type of Wheelchair/Scooter: Manual Wheel 150 Feet Assistance Needed: Independent Physical Assistance Level: No physical assistance CARE Score - Wheel 150 Feet: 6 Type of Wheelchair/Scooter: Manual PT TREATMENT PROVIDED TODAY: Neuromuscular Reeducation Balance/Neuromuscular Re-Education Neuromuscular Re-Education Time Entry: 75 Pt received in bed. This writer editor placing isiah wraps on BLEs in figure 8 pattern for edema management.Supine > sit partial A, pt directing care, assist provided for lower extremities and pt able to manage trunk. Max Ax1 slideboard transfer bed > wheelchair, airbed on autofirm for stability, pt able to direct steps of transfer. Assist for placing/removing board, assist for uplift for scooting, assist for positioning lower extremities throughout and blocking knees. Pt with good awareness of maintaining forward trunk lean while sitting on slideboard Partial A to scoot posteriorly in wheelchair once positioned on chair. Mod I wheelchair mobility to the gym. Pt needing assist to lift legs off leg rest, then pt able to remove leg rest. Reviewed spinal precautions, pt able to correctly identify all 3. Assist to lift lower extremities off leg rest, then pt able to remove leg rests with verbal cues. Pt able to position wheelchair appropriately for transfer to mat. Completed transfer wheelchair <> mat max Ax1, cues to maintain forward lean, difficulty transitioning R hand. Mod I whee lchair mobility back to room. At end of session, pt left in wheelchair with alarm set, call doss within reach and all needs met. PT ASSESSMENT: Pt has progressed to partial A for bed mobility sit <> supine, needing assist for lower extremities with pt able to support trunk. Pt completing slideboard transfers max Ax1, working on independence directing care for transfers. Pt is independent for wheelchair propulsion, needing assist for managing leg rests. Recommending continued intensive PT to improve pt independence. PT PLAN: Patient discharged from this level of care, therapist recommending subacute rehab once discharged from this level of care. Goals: Encounter Problems Encounter Problems (Active) There are no active problems. Encounter Problems (Resolved) Template: Physical Therapy Problem: PT Mh Teacher Goals Dates: Start: 06/26/24 Resolved: 07/16/24 Goal: Mod I rolling (Resolved) Dates: Start: 06/26/24 Expected End: 07/17/24 Resolved: 07/16/24 Outcomes Date/Time User Outcome 07/16/24 1225 Jocelyn Carballo, PT Adequate for Discharge Goal: Partial A transfers LRAD with pt directing care (Resolved) Dates: Start: 06/26/24 Expected End: 07/17/24 Resolved: 07/16/24 Outcomes Date/Time User Outcome 07/16/24 1225 Jocelyn Carballo, PT Adequate for Discharge Goal: Sit <> supine partial A, pt directing care adhering to spinal precautions (Resolved) Dates: Start: 06/26/24 Expected End: 07/17/24 Resolved: 07/16/24 Outcomes Date/Time User Outcome 07/16/24 1225 Jocelyn Carballo, PT Completed Goal: Mod I wheelchair mobility x150' (Resolved) Dates: Start: 06/26/24 Expected End: 07/17/24 Resolved: 07/16/24 Outcomes Date/Time User Outcome 07/16/24 1225 Jocelyn Carballo, PT Completed Goal: Pt will sit independently x15 min (Resolved) Dates: Start: 06/26/24 Expected End: 07/17/24 Resolved: 07/16/24 Outcomes Date/Time User Outcome 07/16/24 1225 Jocelyn Carballo, PT Adequate for Discharge Problem: PT Short Term Goals Dates: Start: 06/26/24 Resolved: 07/16/24 Goal: Supervision rolling (Resolved) Dates: Start: 06/26/24 Expected End: 07/03/24 Resolved: 07/16/24 Outcomes Date/Time User Outcome 07/16/24 1225 Jocelyn Carballo, PT Completed Goal: Sit <> supine max Ax1 (Resolved) Dates: Start: 06/26/24 Expected End: 07/03/24 Resolved: 07/16/24 Outcomes Date/Time User Outcome 07/16/24 1225 Jocelyn Carballo, PT Completed Goal: Max A + partial A slideboard transfers (Resolved) Dates: Start: 06/26/24 Expected End: 07/03/24 Resolved: 07/16/24 Outcomes Date/Time User Outcome 07/16/24 1225 Jocelyn Carballo PT Completed Goal: Supervision wheelchair mobility x100' (Resolved) Dates: Start: 06/26/24 Expected End: 07/03/24 Resolved: 07/10/24 Outcomes Date/Time User Outcome 07/10/24 1544 Jocelyn Carballo PT Completed Goal: Pt will sit with UE support x5 min supervision/steadying A (Resolved) Dates: Start: 06/26/24 Expected End: 07/03/24 Resolved: 07/16/24 Outcomes Date/Time User Outcome 07/16/24 1225 Jocelyn Carballo PT Completed Education Documentation Precautions, taught by Jocelyn Carballo PT at 07/16/2024 12:26 PM. Learner: Patient Readiness: Eager Method: Explanation, Demonstration Response: Verbalizes Understanding, Demonstrated Understanding Comment: spinal precautions, bed mobility, slideboard transfers, sitting balance, wc mobility Mobility Training, taught by Jocelyn Carballo PT at 07/16/2024 12:26 PM. Learner: Patient Readiness: Eager Method: Explanation, Demonstration Response: Verbalizes Understanding, Demonstrated Understanding Comment: spinal precautions, bed mobility, slideboard transfers, sitting balance, wc mobility Education Comments No comments found. Session Start/Stop Time: 929 1100 Therapy Minutes Physical Therapy PT Individual: 90 * Joleen Hollingsworth - 07/16/2024 9:00 AM EST Social Work Note Integrated Hematology Nurse Educator: DX: HX of anxiety and some depressive symptoms: Met with the patient this morning at bedside to see how she has been doing. The patient shared thatshe is doing well, she was able to come out of her room yesterday since precautions was done on Tuesday. She will be discharging hopefully by tomorrow. She is more accepting to the changes that are happening. She appeared more hopeful today. Will keep monitoring and following. Joleen Hollingsworth MS Clinician * She Vigil RN - 07/16/2024 3:37 AM EST Problem: Cognitive: Boyer Devin Fall Risk Goal: Last Known Fall Outcome: Progressing Goal: Mobility requiring assistance of person or device Outcome: Progressing Goal: Dizziness Outcome: Progressing Goal: Medications Outcome: Progressing Goal: Mental Status/LOC/Awareness Outcome: Progressing Goal: Toileting Needs Outcome: Progressing Goal: Volume and Electrolyte Status Outcome: Progressing Goal: Communication/Sensory Outcome: Progressing Goal: Behavior Outcome: Progressing Problem: Skin Integrity: Pressure Injury Actual or Risk of Goal: Will not develop new pressure injury Outcome: Progressing Goal: Skin integrity will improve Outcome: Progressing Goal: Risk for impaired skin integrity will decrease Outcome: Progressing Problem: Activity:Pressure Injury Actual or Risk of Goal: Mobility will improve Outcome: Progressing Problem: Nutritional:Pressure Injury Actual or Risk of Goal: Nutritional status will improve Outcome: Progressing Problem: Patient Specific Problem: Pressure Injury Actual or Risk of Goal: Patient Specific Outcome Outcome: Progressing Goals: Identify possible barriers to meeting goals/advancing plan of care: Pt continues to work on rehab goals Stability of the patient: Moderately Unstable - Medium risk of patient condition declining or worsening End of Shift Summary: Varma cath patent, draining clear yellow urine. Cath secure in place. SCD boots on. Bed alarm on. Call doss within reach. * Jocelyn Cruzne, PT - 07/15/2024 12:30 PM EST [facility] Physical Therapy Treatment Note 07/15/2024 Patient: Yuly Montoya : 1955 Age: 68 y.o. Gender: female Primary Language: Tristanian Diagnosis: Lower extremity weakness Past Medical History: Diagnosis Date Adverse effect of anesthesia several hrs after sx pt had Panic attack Anxiety Arthritis Hypertension Irregular heart beat Joint pain Lymphedema Macular degeneration Past Surgical History: Procedure Laterality Date ABLATION OF DYSRHYTHMIC FOCUS BACK SURGERY N/A s/p L2-3 decompression 09/13/[address] Markham, s/p lumbar discectomy Dr. Bales, L3-4, L4-[address] Yarbrough February 2012, subsequent L4-S1 fusion in [place] with Dr. aCgle. CARPAL TUNNEL RELEASE Right TONSILLECTOMY ADENOIDECTOMY, BILATERAL MYRINGOTOMY AND TUBES TOTAL HIP ARTHROPLASTY Left 2022 TOTAL KNEE ARTHROPLASTY Bilateral Allergies: has No Known Allergies. Precautions: Medical Precautions: Fall Risk Safety Interventions: Call doss within reach, Bed alarm RUE Weight Bearing Status: Full LUE Weight Bearing Status: Full RLE Weight Bearing Status: Full LLE Weight Bearing Status: Full Orthopedic Precautions: Back Precautions NURSING RECOMMENDATIONS Bed Mobility: min A rolling, bed rails up, spinal precautions Transfers: clarisa Ambulation: none SUBJECTIVE Pt report: Thank you so much for making time to work with me Pain: Pain Assessment: 0-10 Pain Score: 6 Pain Location: Neck OBJECTIVE General Observation: Pt sitting in wheelchair, eager for PT. Vitals: Tilt table flat: 118/79 Tilt table 30 degrees: 112/85 Tilt table 40 degrees: 121/76 Procedure/Treatment: Neuromuscular Reeducation: Balance/Neuromuscular Re-Education Neuromuscular Re-Education Time Entry: 90 Pt received in wheelchair. Completed wheelchair mobility to the gym mod I, UE propulsion. Clarisa to tilt table. Pt tolerating tilt table x32 min total, progressing to tilt table at 45 degrees, BP stable throughout. In supine, pt demonstrating L quad contraction, inconsistent ability to complete on commands. In WB position on tilt table, attempted to engage pt in L quad sets with verbal/visual/tactile cues, pt unsuccessful in this position. Completed game of cornhole on tilt table to engage pt inUE task while WB. Patient educated on impaired sensation, impaired strength, autonomic dysreflexia , skin checks, pressure relief in wheelchair, and turning and positioning. Clarisa back to wheelchair.Mod I wheelchair mobility back to room. Clarisa to bed. Assist to come to long sitting to remove clarisa pad. Pt rolling supervision, RN assessing incision on back. This writer editor assisting RN with fixing isiah wraps on lower extremities, education provided to pt on starting isiah wraps at toes instead of ankles to assist with edema and completing in figure 8 pattern. Bed placed in Trendelenburg, pt able toreach arms overhead to assist with boosting up in bed. At end of session, pt left in bed with alarmset, call doss within reach and all needs met. Education: Education Documentation Mobility Training, taught by Jocelyn Carballo, PT at 07/15/2024 4:06 PM. Learner: Patient Readiness: Eager Method: Explanation, Demonstration Response: Verbalizes Understanding, Demonstrated Understanding Comment: wc mobility, tilt table, WB through LEs Education Comments No comments found. ASSESSMENT PT Assessment PT Assessment Results: Decreased strength, Decreased endurance, Impaired balance, Impaired gait, Decreased mobility, Decreased coordination, Impaired sensation, Decreased skin integrity, Orthopedic restrictions, Pain Prognosis: Fair Evaluation/Treatment Tolerance: Patient tolerated treatment well Comments: Pt tolerating tilt table x32 min, BP stable throughout. Equipment: Wheelchair Plan of Care Plan Treatment/Interventions: Functional transfer training, LE strengthening/ROM, Patient/family training, Bed mobility, Balance training, Gait training PT Plan: Skilled PT PT Frequency: 5 days per week PT Duration of Sessions: 90 min per day PT Treatments per day: 1 time per day PT Discharge Recommendations: (TBD) Equipment Recommended: TBD Problems/Goals Goals: Encounter Problems Encounter Problems (Active) Template: Physical Therapy Problem: PT Assisted Goals Dates: Start: 06/26/24 Goal: Mod I rolling Dates: Start: 06/26/24 Expected End: 07/17/24 Outcomes Date/Time User Outcome 07/10/24 Vaishali Carballo PT Progressing Goal: Partial A transfers LRAD with pt directing care Dates: Start: 06/26/24 Expected End: 07/17/24 Outcomes Date/Time User Outcome 07/10/24 Vaishali Carballo PT Progressing Goal: Sit <> supine partial A, pt directing care adhering to spinal precautions Dates: Start: 06/26/24 Expected End: 07/17/24 Outcomes Date/Time User Outcome 07/10/24 Vaishali Carballo, PT Progressing Goal: Mod I wheelchair mobility x150' Dates: Start: 06/26/24 Expected End: 07/17/24 Outcomes Date/Time User Outcome 07/10/24 Vaishali Carballo PT Progressing Goal: Pt will sit independently x15 min Dates: Start: 06/26/24 Expected End: 07/17/24 Outcomes Date/Time User Outcome 07/10/24 Vaishali Carballo, PT Progressing Problem: PT Short Term Goals Dates: Start: 06/26/24 Goal: Supervision rolling Dates: Start: 06/26/24 Expected End: 07/03/24 Outcomes Date/Time User Outcome 07/10/24 1544 Jocelyn Carballo PT Progressing Goal: Sit <> supine max Ax1 Dates: Start: 06/26/24 Expected End: 07/03/24 Outcomes Date/Time User Outcome 07/10/24 1544 Jocelyn Carballo PT Progressing Goal: Max A + partial A slideboard transfers Dates: Start: 06/26/24 Expected End: 07/03/24 Outcomes Date/Time User Outcome 07/10/24 1544 Jocelyn Carballo PT Progressing Goal: Supervision wheelchair mobility x100' (Resolved) Dates: Start: 06/26/24 Expected End: 07/03/24 Resolved: 07/10/24 Outcomes Date/Time User Outcome 07/10/24 1544 Jocelyn Carballo PT Completed Goal: Pt will sit with UE support x5 min supervision/steadying A Dates: Start: 06/26/24 Expected End: 07/03/24 Outcomes Date/Time User Outcome 07/10/24 1544 Jocelyn Carballo PT Progressing Encounter Problems (Resolved) There are no resolved problems. Session Start/Stop Time: 1230 1400 Therapy Minutes Physical Therapy PT Individual: 90 * Umm Wood NP - 07/15/2024 9:38 AM EST Images from the original note were not included. [facility] PROGRESS NOTE Date: 07/15/2024 Author: Umm Wood NP Patient ID: Yuly Montoya is a 68 y.o. female : 1955 MR#: [id number] SUBJECTIVE Subjective Pt states she feels great today other than heart burn, reflux sxs She is eating and drinking well She states her spasms in her legs are much improved No improved ROM of the lower extremities Denies any increased weakness Denies neck pain ROS Constitutional :no fever chills , appetite fair, sleeping well, see above HEENT: denies headaches Respiratory: denies shortness of breath, coughing or wheezing Cardiac: denies chest pain, palpitations, : No abd pain, no , c/o reflux sxs at night Genitourinary: denies any dysuria frequency urgency Musculoskeletal: No joint pain ,back pain Allergies Patient has no known allergies. Current Medications: acetaminophen, 975 mg, oral, q8h EDEN ascorbic acid, 1,000 mg, oral, Daily baclofen, 2.5 mg, oral, TID bisacodyL, 10 mg, rectal, q24h cefuroxime, 250 mg, oral, BID cholecalciferol, 2,000 Units, oral, Daily clotrimazole, , Topical, BID doxepin, 100 mg, oral, Nightly DULoxetine, 60 mg, oral, Daily ferrous sulfate, 325 mg, oral, BID gabapentin, 200 mg, oral, q12h EDEN guaiFENesin, 600 mg, oral, q12h EDEN heparin (UFH), 5,000 Units, subcutaneous, q8h EDEN Lactobacillus acidoph-L.bulgar, 2 tablet, oral, TID with meals nicotine, 1 patch, transdermal, Daily pantoprazole, 40 mg, oral, q AM AC artificial tears, 2 drop, Both Eyes, TID traZODone, 75 mg, oral, Nightly valsartan, 40 mg, oral, Daily zinc sulfate, 220 mg, oral, Daily PRN medications: ALPRAZolam, aluminum-magnesium hydroxide-simethicone, bisacodyL, docusate sodium, magnesium hydroxide, oxyCODONE OBJECTIVE Vitals: 07/14/24 1050 07/14/24 1100 07/14/24 1929 07/15/24 0245 BP: 123/82 123/82 131/83 94/69 BP Location: Left arm;Upper Left arm Patient Position: Sitting Lying Pulse: 80 91 83 Resp: 16 18 18 Temp: 36.2 ??C (97.1 ??F) 36.5 ??C (97.7 ??F) 36.7 ??C (98.1 ??F) TempSrc: Temporal Oral SpO2: 100% 95% 93% Weight: PHYSICAL EXAM General-NAD, cognitively- intact , AAO- ??3 , appears stated age, appears comfortable Short thick neck girth has a tendency to sit with hunched kyphotic posture Heart-RRR, normal S1, S2, no murmurs rubs Lungs-CTA B no adventitious breath sounds. Abdomen-S NT BS ??4, obese no distention Extremities- no CCE, cap refill brisk, DPP Neuromuscular-focally unchanged lower extremity weakness noted mild increased right digital range of motion of the foot integumentary- turgor good, skin warm dry intact, no rashes. LABS HEMATOLOGY Lab Results Component Value Date WBC 5.3 07/11/2024 HGB 9.9 (L) 07/11/2024 HCT 30.4 (L) 07/11/2024 MCV 91.8 07/11/2024 PLT 403 (H) 07/11/2024 CHEMISTRY Lab Results Component Value Date GLUCOSE 91 07/11/2024 NA 136 07/11/2024 K 4.6 07/11/2024 CO2 33 (H) 07/11/2024 CL 99 07/11/2024 BUN 9 07/11/2024 CREATININE 0.51 07/11/2024 EGFR 102 07/11/2024 CALCIUM 9.5 07/11/2024 MG 1.9 06/27/2024 PHOS 2.7 06/15/2024 ANIONGAP 4 07/11/2024 Imaging: ASSESSMENT & PLAN Thoracic spinal stenosis, Hx spinal mass, s/p 2 thoracic decompression surgeries - 06/11 she was transferred to [facility] - S/p T5-T8 fusion and T5-7 decompression T6-7 facetectomy and removal of mass. By Dr. Hall at [facility] in [place] Biopsy- Fragments of benign bone and cartilage with focus of necrotic bone. No malignancy identified. Status post Medrol Dosepak Pt w/ left foot plantarflexion and dorsiflexion as well as improved sensation on the left lower extremity No Sensation on the right lower extremity -minimal toe movement neurogenic BB gabapentin 400 3 times daily-reduced to 200 mg twice daily Treatment per PMR 07/10- reports spasms to lower extremity since being off baclofen started baclofen 5 mg 3 times daily 07/11 baclofen dose reduced to 2.5 due to truncal weakness Now improved neurogenic bowel and bladder Varma cath recently DC'd due to sediment in the urine Urine 07/02 + E. coli pansensitive Currently on cefuroxime twice daily recommend treatment for 10 days due to complexity-hospitalization/Varma On bowel regimen/program UTI see above Cefuroxime total 10 days General malaise/fatigue +COVID on 07/[address] 10 days -now patient off isolation asymptomatic Treated with conservative treatment -vitamin C D and zinc Continue incentive spirometry. Mucinex may be DC'd History of cervical spondylolisthesis with central canal stenosis Soft cervical collar when up therapy Atrial flutter s/p ablation Recent bradycardia now on lower dose of BB Toprol XL 25 mg discontinue as blood pressure has been low Rate controlled in the 50-60s monitor Hypertension Recent soft BP's /Hypotension S/p -Toprol Triamterene hydrochlorothiazide hydralazine and Diovan DC'd 07/12- > BP has been running on the higher side. Resume Diovan 40mg BP currently stable 120s hyponatremia context of diarrhea Resolved 136-134 Lymphedema acute on chronic Isiah wraps bilaterally. No pain to the extremities. Recent steroids IVF resolved Anxiety Mood stable Maintain on doxepin 100 mg nightly Duloxetine 60 mg Trazodone 75 mg nightly Anemia 10 and 31 on 06/27 Brief downward trend to 8.8 and 27 down 9.9 and 30 Presumed to have an element of hemoconcentration followed by dilution No signs of bleeding currently on PPI continue Feosol check guaiacs-negative thus far GERD NO CP SOB- worse at night Patient states has been having reflux symptoms at night with some burning in her throat Patient is getting PPI at 6:30 in the morning consider changing to 4:30 PM Commend DC any not necessary meds Patient is also on ferrous sulfate which can contribute DC vitamin C and vitamin D DC ferrous sulfate once hemoglobin greater than 10 DC guaifenesin DC zinc DVT prophylaxis with heparin DAILY CARE CHECKLIST * She Vigil RN - 07/15/2024 3:05 AM EST Varma cath patent, draining clear, yellow urine. Cath secure in place. 4 side rails per pt request.SCD and PUPP boots on. Call doss within reach, bed alarm on. * Umm Wood NP - 07/14/2024 11:32 AM EST Images from the original note were not included. [facility] PROGRESS NOTE Date: 07/14/2024 Author: Umm Wood NP Patient ID: Yuly Montoya is a 68 y.o. female : 1955 MR#: [id number] SUBJECTIVE Subjective Patient denies any URI symptoms signs of COVID She is eating and drinking well She states her spasms in her legs are much improved Denies any increased weakness Denies neck pain ROS Constitutional :no fever chills , appetite fair, sleeping well, see above HEENT: denies headaches Respiratory: denies shortness of breath, coughing or wheezing Cardiac: denies chest pain, palpitations, : No abd pain, no N/V. Genitourinary: denies any dysuria frequency urgency Musculoskeletal: No joint pain ,back pain Allergies Patient has no known allergies. Current Medications: acetaminophen, 975 mg, oral, q8h EDEN ascorbic acid, 1,000 mg, oral, Daily baclofen, 2.5 mg, oral, TID bisacodyL, 10 mg, rectal, q24h cefuroxime, 250 mg, oral, BID cholecalciferol, 2,000 Units, oral, Daily clotrimazole, , Topical, BID doxepin, 100 mg, oral, Nightly DULoxetine, 60 mg, oral, Daily ferrous sulfate, 325 mg, oral, BID gabapentin, 200 mg, oral, q12h EDEN guaiFENesin, 600 mg, oral, q12h EDEN heparin (UFH), 5,000 Units, subcutaneous, q8h EDEN Lactobacillus acidoph-L.bulgar, 2 tablet, oral, TID with meals nicotine, 1 patch, transdermal, Daily pantoprazole, 40 mg, oral, q AM AC artificial tears, 2 drop, Both Eyes, TID traZODone, 75 mg, oral, Nightly valsartan, 40 mg, oral, Daily zinc sulfate, 220 mg, oral, Daily PRN medications: ALPRAZolam, aluminum-magnesium hydroxide-simethicone, bisacodyL, docusate sodium, magnesium hydroxide, oxyCODONE OBJECTIVE Vitals: 07/14/24 0531 07/14/24 1030 07/14/24 1050 07/14/24 1100 BP: (!) 128/93 123/82 123/82 BP Location: Left arm Left arm;Upper Patient Position: Lying Sitting Pulse: 78 80 Resp: 18 16 Temp: 35.9 ??C (96.7 ??F) 36.2 ??C (97.1 ??F) TempSrc: Oral Temporal SpO2: 94% 100% Weight: 84.9 kg (187 lb 3.2 oz) PHYSICAL EXAM General-NAD, cognitively- intact , AAO- ??3 , appears stated age, appears comfortable Short thick neck girth has a tendency to sit with hunched kyphotic posture Heart-RRR, normal S1, S2, no murmurs rubs Lungs-CTA B no adventitious breath sounds. Abdomen-S NT BS ??4, obese no distention Extremities- no CCE, cap refill brisk, DPP Neuromuscular-focally unchanged lower extremity weakness noted mild increased right digital range of motion of the foot inconsistent integumentary- turgor good, skin warm dry intact, no rashes. LABS HEMATOLOGY Lab Results Component Value Date WBC 5.3 07/11/2024 HGB 9.9 (L) 07/11/2024 HCT 30.4 (L) 07/11/2024 MCV 91.8 07/11/2024 PLT 403 (H) 07/11/2024 CHEMISTRY Lab Results Component Value Date GLUCOSE 91 07/11/2024 NA 136 07/11/2024 K 4.6 07/11/2024 CO2 33 (H) 07/11/2024 CL 99 07/11/2024 BUN 9 07/11/2024 CREATININE 0.51 07/11/2024 EGFR 102 07/11/2024 CALCIUM 9.5 07/11/2024 MG 1.9 06/27/2024 PHOS 2.7 06/15/2024 ANIONGAP 4 07/11/2024 Imaging: ASSESSMENT & PLAN Thoracic spinal stenosis, Hx spinal mass, s/p 2 thoracic decompression surgeries - 06/11 she was transferred to [facility] - S/p T5-T8 fusion and T5-7 decompression T6-7 facetectomy and removal of mass. By Dr. Hall at [facility] in [place] Biopsy- Fragments of benign bone and cartilage with focus of necrotic bone. No malignancy identified. Status post Medrol Dosepak patient has left foot plantarflexion and dorsiflexion as well as improved sensation on the left lower extremity No Sensation on the right lower extremity -minimal toe movement neurogenic BB gabapentin 400 3 times daily Treatment per PMR 07/10- reports spasms to lower extremity since being off baclofen started baclofen 5 mg 3 times daily 07/11 baclofen dose reduced to 2.5 due to truncal weakness Now improved neurogenic bowel and bladder Varma cath recently DC'd due to sediment in the urine Urine 07/02 + E. coli pansensitive Currently on cefuroxime twice daily recommend treatment for 10 days due to complexity-hospitalization/Varma On bowel regimen/program UTI see above Cefuroxime total 10 dayss General malaise/fatigue +COVID on 07/[address] 10 days due to today Dems resolved patient treated conservatively with vitamin C D and zinc Continue incentive spirometry. Mucinex may be DC'd afebrile. No evidence hypoxia. resolved History of cervical spondylolisthesis with central canal stenosis Soft cervical collar when up therapy Atrial flutter s/p ablation Recent bradycardia now on lower dose of BB Toprol XL 25 mg discontinue as blood pressure has been low Rate controlled in the 50-60s monitor Hypertension Recent soft BP's /Hypotension S/p -Toprol Triamterene hydrochlorothiazide hydralazine and Diovan DC'd 07/12- > BP has been running on the higher side. Resume Diovan 40mg BP currently stable 120s hyponatremia context of diarrhea Resolved 136-134 Lymphedema acute on chronic Isiah wraps bilaterally. No pain to the extremities. Recent steroids IVF resolved Anxiety Mood stable Maintain on doxepin 100 mg nightly Duloxetine 60 mg Trazodone 75 mg nightly Anemia 10 and 31 on 06/27 Brief downward trend to 8.8 and 27 down 9.9 and 30 Presumed to have an element of hemoconcentration followed by dilution No signs of bleeding currently on PPI continue Feosol check guaiacs-negative thus far DVT prophylaxis with heparin DAILY CARE CHECKLIST * Ben Miller OT - 07/13/2024 12:30 PM EST [facility] Occupational Therapy Treatment Note 07/13/24 Patient: Yuly Montoya : 1955 Age: 68 y.o. Gender: female Diagnosis: Lower extremity weakness Primary Rehab (Etiologic) Diagnosis: Patient Active Problem List Diagnosis Lumbar spondylosis Onychomycosis Pain in toe Sacroiliitis ([facility]/HCC) Spondylolisthesis Cervical spondylosis Spinal stenosis of thoracic region Thoracic spinal stenosis Age-related macular degeneration Anxiety Atrial flutter (CMS/HCC) Obstructive sleep apnea syndrome Deep vein thrombosis (DVT) of lower extremity (CMS/HCC) History of artificial joint Hypertension Osteoarthritis of hip Peripheral venous insufficiency S/P tonsillectomy and adenoidectomy Bradycardia Thoracic myelopathy Lower extremity weakness PMH: Past Medical History: Diagnosis Date Adverse effect of anesthesia several hrs after sx pt had Panic attack Anxiety Arthritis Hypertension Irregular heart beat Joint pain Lymphedema Macular degeneration PSH: Past Surgical History: Procedure Laterality Date ABLATION OF DYSRHYTHMIC FOCUS BACK SURGERY N/A s/p L2-3 decompression 09/13/[address] Markham, s/p lumbar discectomy Dr. Bales, L3-4, L4-[address] Yarbrough February 2012, subsequent L4-S1 fusion in [place] with Dr. Cagle. CARPAL TUNNEL RELEASE Right TONSILLECTOMY ADENOIDECTOMY, BILATERAL MYRINGOTOMY AND TUBES TOTAL HIP ARTHROPLASTY Left 2022 TOTAL KNEE ARTHROPLASTY Bilateral Allergies: has No Known Allergies. Precautions: Precautions Medical Precautions: Fall Risk Safety Interventions: Call doss within reach, Bed alarm RUE Weight Bearing Status: Full LUE Weight Bearing Status: Full RLE Weight Bearing Status: Full LLE Weight Bearing Status: Full Orthopedic Precautions: Back Precautions Pain: pt reporting back pain, with alleviation when in supine. Subjective: I don't feel like doing a SB right now would be the safest.. Procedures/Interventions: ADLs/IADLs Self Care/Home Management (ADLs) Time Entry: 90 Pt seated in w/c upon arrival, agreeable to participation in planned shower. Dicussed with pt trialing SB back to bed to doff pants prior to shower, pt requesting to use clarisa, reporting fatigue and pain are barriers to completing safe SB at this time. Pt doffed shirt while sitting in w/c with S, without Ue support. Pt hoyered from w/c>bed. In bed pt rolled R><L touching A with bed rails, to hike pants down from around hips. Assist to remove from remainder of LEs. Pt hoyered from bed>rolling commode. Pt dep wheeled into shower. Small BM noted. Pt bathed entirely seated with use ofhand held shower and LH sponge. Overall partial A for bathing buttocks and distal LEs including bottoms of feet. Pt able to smoothly transition UE support from commode arm rest>grab bars with short periods of B UE release. No overt LOBs, spasms of sliding on commode. Once back in room pt performed oral hygiene at sink, from commode with JACINTO for positioning commode at sink. Pt hoyered from commode>bed. Once in bed HOB raised, and pt able to assume long sit with UE on B bed rails. Pt able toremove unilateral UE to hike shirt down posteriorly, replacing on bed rail to correct LOBs. Shirt donned with overall S. RN present to apply mepilex to back incision, barrier cream applied to bottom,Allevyn replaced, and brief donned. Pt demo'ing ability to volitionally flex L knee, with very minimal movement noted. Assist to thread B Les and varma, Pt attempting to hike over B hips, while rolling R><L with cues for UE placement to maximize independence. Assist required posteriorly to hike due to fit of pants. B socks donned, PUPP boots donned, bed alarm on, call doss in reach, and allneeds met. OT Assessment OT Assessment OT Assessment Results: Decreased ADL status, Decreased endurance, Decreased sensation, Visual deficit, Decreased trunk control for functional activities, Impaired tone Prognosis: Good Evaluation/Treatment Tolerance: Patient tolerated treatment well Comments: Pt demoing consistency with donning shirt S level, with increased smooth transitions withalternating UE release from external support. Fatigue and pain barrier to perform SB txfer this session. OT Plan Plan Treatment Interventions: ADL retraining, Functional transfer training, UE strengthening/ROM, Endurance training, Equipment evaluation/education, Compensatory technique education, Continued evaluation OT Plan: Skilled OT OT Frequency : 5-7 days per week OT Duration of Sessions: 90 min per day OT Treatments per day: 1 time per day OT - Evaluation Status: Complete Equipment Recommended: (TBD) Barriers to Discharge: environemntal concerns, functional status, pt lives alone. 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 Dates: Start: 06/26/24 Expected End: 07/17/24 Outcomes Date/Time User Outcome 07/09/24 Precious Wilson, OT Progressing Goal: pt will be able to independently direct care, in order to perform toileting safely, while allowing greatest level of INDEPENDENCE (including DME use, txfer techniques, and strategies) Dates: Start: 06/26/24 Expected End: 07/17/24 Outcomes Date/Time User Outcome 07/09/24 115Mayte Wilson, OT Progressing Goal: Pt will tolerate 3/3 meals OOB Dates: Start: 06/26/24 Expected End: 07/17/24 Outcomes Date/Time User Outcome 07/09/24 Precious Wilson, OT Progressing Goal: Pt will perform LB dressing with partial A, use of LH ADAPTIVE EQUIPTMENT prn Dates: Start: 06/26/24 Expected End: 07/17/24 Outcomes Date/Time User Outcome 07/09/24 115Mayte Wilson, OT Progressing Goal: pt will perform toileting with overall max A. Dates: Start: 06/26/24 Expected End: 07/17/24 Outcomes Date/Time User Outcome 07/09/24 Precious Wilson, OT Progressing Goal: pt will don shirt with S, sitting unsupported. Dates: Start: 06/26/24 Expected End: 07/17/24 Description: Outcomes Date/Time User Outcome 07/09/24 Precious Wilson OT Progressing Problem: OT Short Term Goals Dates: Start: 06/26/24 Goal: Pt will perform rolling R><L with use of log roll technique, partial A, for pressure relief. Dates: Start: 06/26/24 Expected End: 07/03/24 Outcomes Date/Time User Outcome 07/12/24 1420 Ben Miller OT Progressing Goal: Pt will tolerate sitting OOB for 1/3 meals Dates: Start: 06/26/24 Expected End: 07/03/24 Outcomes Date/Time User Outcome 07/12/24 1420 Ben Miller OT Progressing Goal: Pt will sit at EOB for 10 minutes, with no more than partial A for balance to increase Potter with EOB ADL Dates: Start: 06/26/24 Expected End: 07/03/24 Outcomes Date/Time User Outcome 07/09/24 115Mayte Wilson, OT Progressing Goal: Pt will verbalize 3 pressure relief techniques in order to reduce sophia of pressure injury Dates: Start: 06/26/24 Expected End: 07/03/24 Outcomes Date/Time User Outcome 07/09/24 115Mayte Wilson, OT Progressing Goal: Pt will perform oral hygiene w/c level, with JACINTO. Dates: Start: 06/26/24 Expected End: 07/03/24 Outcomes Date/Time User Outcome 07/09/24 1159 Vero Wilosn, OT Adequate for Discharge Encounter Problems (Resolved) There are no resolved problems. Education Documentation Skin Care/Pressure Ulcer Prevention, taught by Ben Miller OT at 07/13/2024 2:15 PM. Learner: Patient Readiness: Acceptance Method: Explanation, Demonstration Response: Verbalizes Understanding, Demonstrated Understanding, Needs Reinforcement ADL Training, taught by Ben Miller OT at 07/13/2024 2:15 PM. Learner: Patient Readiness: Acceptance Method: Explanation, Demonstration Response: Verbalizes Understanding, Demonstrated Understanding, Needs Reinforcement Precautions, taught by Ben Miller OT at 07/13/2024 2:15 PM. Learner: Patient Readiness: Acceptance Method: Explanation, Demonstration Response: Verbalizes Understanding, Demonstrated Understanding, Needs Reinforcement Body Mechanics, taught by Ben Miller OT at 07/13/2024 2:15 PM. Learner: Patient Readiness: Acceptance Method: Explanation, Demonstration Response: Verbalizes Understanding, Demonstrated Understanding, Needs Reinforcement Fall Precautions, taught by Ben Miller OT at 07/13/2024 2:15 PM. Learner: Patient Readiness: Acceptance Method: Explanation, Demonstration Response: Verbalizes Understanding, Demonstrated Understanding, Needs Reinforcement Teach precautions to protect skin integrity, taught by Ben Miller OT at 07/13/2024 2:15 PM. Learner: Patient Readiness: Acceptance Method: Explanation, Demonstration Response: Verbalizes Understanding, Demonstrated Understanding, Needs Reinforcement Education Comments No comments found. Start/Stop Time OT Time Calculation OT Start Time: 1230 OT Stop Time: 1400 OT Time Calculation (min): 90 min Therapy Minutes: Occupational Therapy OT Individual: 90 * THEODORA Pope - 07/13/2024 11:45 AM EST Images from the original note were not included. [place] PROGRESS NOTE Date: 07/13/2024 Author: THEODORA Pope Patient ID: Yuly Montoya is a 68 y.o. female : 1955 MR#: [id number] SUBJECTIVE Subjective Patient seen. She reports that her spasms are better. Her truncal stability has also improved. ROS Constitutional :no fever chills , appetite fair, sleeping well, see above HEENT: denies headaches Respiratory: denies shortness of breath, coughing or wheezing Cardiac: denies chest pain, palpitations, : No abd pain, no N/V. Genitourinary: denies any dysuria frequency urgency Musculoskeletal: No joint pain ,back pain Allergies Patient has no known allergies. Current Medications: acetaminophen, 975 mg, oral, q8h EDEN ascorbic acid, 1,000 mg, oral, Daily baclofen, 2.5 mg, oral, TID bisacodyL, 10 mg, rectal, q24h cefuroxime, 250 mg, oral, BID cholecalciferol, 2,000 Units, oral, Daily clotrimazole, , Topical, BID doxepin, 100 mg, oral, Nightly DULoxetine, 60 mg, oral, Daily ferrous sulfate, 325 mg, oral, BID gabapentin, 200 mg, oral, q12h EDEN guaiFENesin, 600 mg, oral, q12h EDEN heparin (UFH), 5,000 Units, subcutaneous, q8h EDEN Lactobacillus acidoph-L.bulgar, 2 tablet, oral, TID with meals nicotine, 1 patch, transdermal, Daily pantoprazole, 40 mg, oral, q AM AC artificial tears, 2 drop, Both Eyes, TID traZODone, 75 mg, oral, Nightly valsartan, 40 mg, oral, Daily zinc sulfate, 220 mg, oral, Daily PRN medications: ALPRAZolam, aluminum-magnesium hydroxide-simethicone, bisacodyL, docusate sodium, magnesium hydroxide, oxyCODONE OBJECTIVE Vitals: 07/12/24 0953 07/12/24 1542 07/13/24 0546 07/13/24 1000 BP: 134/82 (!) 175/94 (!) 144/83 (!) 147/92 BP Location: Left arm Left arm Left arm Left arm Patient Position: Sitting Lying Lying Lying Pulse: 78 82 74 79 Resp: 18 16 16 Temp: 36.6 ??C (97.9 ??F) 36.6 ??C (97.9 ??F) 36.6 ??C (97.9 ??F) TempSrc: Oral Oral Oral SpO2: 92% 96% 95% Weight: PHYSICAL EXAM General: conscious alert no acute distress HEENT: pupils are equal round and reactive. extraocular movements are grossly intact lungs clear to auscultation, no wheezing or crackles noted heart regular rate and rhythm, no murmur or rubs abdomen soft nontender nondistended positive bowel sounds Musculoskeletal: No gross deformity to joints extremities without edema, erythema or calf tenderness neuro: Neurologically unchanged perhaps more movement to the right toes/foot, visible spasm noted so that that was the skin: no rashes or lesions. psych: mood stable appearing, good eye contact. LABS HEMATOLOGY Lab Results Component Value Date WBC 5.3 07/11/2024 HGB 9.9 (L) 07/11/2024 HCT 30.4 (L) 07/11/2024 MCV 91.8 07/11/2024 PLT 403 (H) 07/11/2024 CHEMISTRY Lab Results Component Value Date GLUCOSE 91 07/11/2024 NA 136 07/11/2024 K 4.6 07/11/2024 CO2 33 (H) 07/11/2024 CL 99 07/11/2024 BUN 9 07/11/2024 CREATININE 0.51 07/11/2024 EGFR 102 07/11/2024 CALCIUM 9.5 07/11/2024 MG 1.9 06/27/2024 PHOS 2.7 06/15/2024 ANIONGAP 4 07/11/2024 Imaging: ASSESSMENT & PLAN Thoracic spinal stenosis, Hx spinal mass, s/p 2 thoracic decompression surgeries 06/11 she was transferred to [facility] S/p T5-T8 fusion and T5-7 decompression T6-7 facetectomy and removal of mass. By Dr. Hall at [facility] in [place] Biopsy- Fragments of benign bone and cartilage with focus of necrotic bone. No malignancy identified. F/u with neurosurgery after discharge That is post Medrol Dosepak Patient has left foot plantarflexion and dorsiflexion as well as improved sensation on the left lower extremity Sensation on the right lower extremity -minimal toe movement neurogenic BB gabapentin 400 3 times daily Treatment per PMR 07/10- reports spasms to lower extremity since being off baclofen started baclofen 5 mg 3 times daily 07/11 baclofen dose reduced to 2.5 due to truncal weakness Now improved neurogenic bowel and bladder Varma cath recently DC'd due to sediment in the urine Urine/113 obtained positive for greater than 100,000 and E. coli pansensitive Currently on cefuroxime twice daily recommend treatment for 10 days due to complexity-hospitalization/Varma On bowel regimen/program UTI see above Cefuroxime total 10 dayss General malaise/fatigue +COVID on 07/[address] She reports she is feeling better Isolation precautions x 10 days Encourage deep breathing. Incentive spirometry. Mucinex afebrile. No evidence hypoxia. Improved/resolved History of cervical spondylolisthesis with central canal stenosis Soft cervical collar when up therapy Atrial flutter s/p ablation Recent bradycardia now on lower dose of BB Toprol XL 25 mg discontinue as blood pressure has been low Rate controlled in the 50-60s monitor Hypertension Recent soft BP's /Hypotension Multiple meds DC'd patient's blood pressure S/p Discontinue Toprol Triamterene hydrochlorothiazide hydralazine and Diovan DC'd 07/12- > BP has been running on the higher side. Resume Diovan 40mg hyponatremia context of diarrhea Resolved 136-134 Lymphedema acute on chronic Isiah wraps bilaterally. No pain to the extremities. Recent steroids IVF resolved Anxiety Mood stable Maintain on doxepin 100 mg nightly Duloxetine 60 mg Trazodone 75 mg nightly Anemia 10 and 31 on 06/27 now 8.8 and 27 from 9 and 28 Stable light downward trend Patient is better hydrated currently No signs of bleeding add PPI Feosol check guaiacs-negative thus far DVT prophylaxis with heparin DAILY CARE CHECKLIST * Darline Lara, DO - 07/13/2024 11:06 AM EST Images from the original note were not included. [facility] Daily Progress Note Patient name: Yuly Montoya : 1955 SUBJECTIVE: Patient seen and examined at bedside today. No acute events overnight. Denies headaches, dizziness,shortness of breath, chest pain, nausea, constipation, and pain. Reports that trunk control slightly improved on lower dose of Baclofen. Participating in therapies: Supervision sitting balance on airbed, on max inflate for increased stability. OBJECTIVE: Vitals: 07/12/24 0953 07/12/24 1542 07/13/24 0546 07/13/24 1000 BP: 134/82 (!) 175/94 (!) 144/83 (!) 147/92 BP Location: Left arm Left arm Left arm Left arm Patient Position: Sitting Lying Lying Lying Pulse: 78 82 74 79 Resp: 18 16 16 Temp: 36.6 ??C (97.9 ??F) 36.6 ??C (97.9 ??F) 36.6 ??C (97.9 ??F) TempSrc: Oral Oral Oral SpO2: 92% 96% 95% Weight: Physical Examination: General: Alert, in no acute cardiopulmonary distress. Mental Status: Oriented to person, place and time. Normal affect. Head: Normocephalic. Eyes: Pupils are equal, round and reactive to light. Extraocular muscles intact. Ear, Nose and Throat: Oropharynx clear, mucous membranes moist. Ears and nose without masses, lesions or deformities. Neck: Supple, Trachea midline. Respiratory: Clear to auscultation and percussion. No wheezing, rales or rhonchi. Cardiovascular: Heart sounds normal. No thrills. Regular rate and rhythm, no murmurs, rubs or gallops. Gastrointestinal: Abdomen soft, non-tender, non-distended. Normal bowel sounds. Genitourinary: +Varma catheter in place with clear yellow urine in bag Neurologic: b/l LE weakness. Decreased ssensation to b/l LE R>l and decreased sensation to abd Skin: No rashes or lesions. No petechiae or purpura. No edema. Musculoskeletal: RLE 0/5 strength. LLE 0/5 hip flexion and knee extension. LLE 1/5 left dorsiflexion and plantarflexion. CURRENT INPATIENT MEDICATIONS: Current Facility-Administered Medications: acetaminophen (TYLENOL) tablet 975 mg, 975 mg, oral, q8h EDEN, Darline Lara DO, 975 mg at 07/13/24 0556 ALPRAZolam (XANAX) tablet 0.5 mg, 0.5 mg, oral, Nightly PRN, THEODORA Lawson, 0.5 mg at 07/12/24 2136 aluminum-magnesium hydroxide-simethicone (MAALOX) 200-200-20 mg/5 mL suspension 30 mL, 30 mL, oral,q4h PRN, THEODORA Lawson ascorbic acid (VITAMIN C) tablet 1,000 mg, 1,000 mg, oral, Daily, THEODORA Pope, 1,000 mg at07/13/24 0907 baclofen (LIORESAL) tablet 2.5 mg, 2.5 mg, oral, TID, THEODORA Pope, 2.5 mg at 07/13/24 0906 bisacodyL (DULCOLAX) suppository 10 mg, 10 mg, rectal, Daily PRN, THEODORA Lawson bisacodyL (DULCOLAX) suppository 10 mg, 10 mg, rectal, q24h, Darline Lara DO, 10 mg at 07/12/24 1944 cefuroxime (CEFTIN) tablet 250 mg, 250 mg, oral, BID, Umm Wood NP, 250 mg at 07/13/24 0906 cholecalciferol (VITAMIN D-3) tablet 2,000 Units, 2,000 Units, oral, Daily, THEODORA Pope, 2,000 Units at 07/13/24 0907 clotrimazole (LOTRIMIN) 1 % cream, , Topical, BID, Umm Wood NP, 1 Application at 07/13/24 0916 docusate sodium (COLACE) capsule 100 mg, 100 mg, oral, BID PRN, Darline Lara DO, 100 mg at 07/11/24 1157 doxepin (SINEquan) capsule 100 mg, 100 mg, oral, Nightly, THEODORA Lawson, 100 mg at 07/12/242134 DULoxetine (CYMBALTA) DR capsule 60 mg, 60 mg, oral, Daily, THEODORA Lawson, 60 mg at 07/13/24 0907 ferrous sulfate tablet 325 mg, 325 mg, oral, BID, Umm Wood NP, 325 mg at 07/13/24 0906 gabapentin (NEURONTIN) capsule 200 mg, 200 mg, oral, q12h EDEN, Darline Lara, , 200 mg at 07/13/24 0907 guaiFENesin (MUCINEX) 12 hr tablet 600 mg, 600 mg, oral, q12h EDEN, THEODORA Pope, 600 mg at 07/13/24 0905 heparin (UFH) injection 5,000 Units, 5,000 Units, subcutaneous, q8h EDEN, Darline Lara DO, 5,000 Units at 07/13/24 0556 Lactobacillus acidoph-L.bulgar (FLORANEX) tablet 2 tablet, 2 tablet, oral, TID with meals, Umm Wood NP, 2 tablet at 07/13/24 0905 magnesium hydroxide (MILK OF MAGNESIA) 400 mg/5 mL suspension 30 mL, 30 mL, oral, Daily PRN, THEODORA Lawson nicotine (NICODERM CQ) 7 mg/24 hr 1 patch, 1 patch, transdermal, Daily, THEODORA Pope, 1 patch at 07/13/24 0906 oxyCODONE (ROXICODONE) immediate release tablet 5 mg, 5 mg, oral, q6h PRN, Darline Lara DO,5 mg at 07/12/24 213 pantoprazole (PROTONIX) EC tablet 40 mg, 40 mg, oral, q AM AC, Umm Kovacs NP, 40 mg at 07/13/24 0557 polyvinyl alcohol-povidone (PF) (ARTIFICIAL TEARS) 1.4-0.6 % ophthalmic solution 2 drop, 2 drop, Both Eyes, TID, Darline Lara DO, 2 drop at 07/13/24 0905 traZODone (DESYREL) tablet 75 mg, 75 mg, oral, Nightly, THEODORA Lawson, 75 mg at 07/12/242135 valsartan (DIOVAN) tablet 40 mg, 40 mg, oral, Daily, THEODORA Pope, 40 mg at 07/13/24 09 zinc sulfate (ZINCATE) capsule 220 mg, 220 mg, oral, Daily, THEODORA Pope, 220 mg at 07/13/24 0905 LABS: Lab Results Component Value Date WBC 5.3 07/11/2024 RBC 3.30 (L) 07/11/2024 HGB 9.9 (L) 07/11/2024 HCT 30.4 (L) 07/11/2024 MCV 91.8 07/11/2024 MCHC 32.6 07/11/2024 RDW 15.9 (H) 07/11/2024 PLT 403 (H) 07/11/2024 MPV 9.3 07/11/2024 NRBC 0.0 07/11/2024 DIFF Lab Results Component Value Date LYMPHOPCT 13.4 07/04/2024 NEUTROABS 6.38 07/04/2024 LYMPHSABS 1.13 07/04/2024 MONOABS 0.60 07/04/2024 EOSABS 0.24 07/04/2024 BASOSABS 0.02 07/04/2024 IMMGRANABS 0.07 (H) 07/04/2024 RETIC No results found for: RETIC , RETICCTPCT Lab Results Component Value Date NA 136 07/11/2024 K 4.6 07/11/2024 CL 99 07/11/2024 CO2 33 (H) 07/11/2024 GLUCOSE 91 07/11/2024 BUN 9 07/11/2024 CREATININE 0.51 07/11/2024 CALCIUM 9.5 07/11/2024 PROT 4.4 (L) 07/06/2024 ALBUMIN 2.2 (L) 07/06/2024 BILITOT 0.3 07/06/2024 AST 14 07/06/2024 ALT 35 07/06/2024 PHOS 2.7 06/15/2024 MG 1.9 06/27/2024 ALKPHOS 101 07/06/2024 EGFR 102 07/11/2024 IMPRESSION & PLAN: #Impaired mobility and self care -Secondary to thoracic myelopathy -Continue with PT, OT, and nursing care #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 -s/p T5-T8 fusion and T5-7 decompression T6-7 facetectomy and removal of mass (non malignant) by [facility] [place] -Betadine to surgical incision daily and leave open to air -continue therapies -5 day course of Methylprednisolone 4 mg daily completed on 06/30/24 -Tizanidine 2 mg daily 06/26 held due to hypotension --> discontinued on 06/27 due to hypotension -f/u NSG after discharge #Pain management -Tylenol 975mg Q8H -Gabapentin 800 mg BID --> changed to 400mg Q8H on 06/27 due to hypotension --> decreased to 200mg BID on 07/04 due to fatigue -Oxycodone 5mg Q6H PRN -Baclofen 5 mg TID started 07/10 --> decreased to 2.5mg TID on 07/11 due to worsening trunk stability #COVID-19 -patient with significant fatigue, asymptomatic and afebrile otherwise -tested positive on 07/04 -isolation precautions x10 days -Acyclovir ointment TID x5 days completed on 07/10 #Hypotension, Resolved -s/p IVF on 06/27 -medications adjusted as outlined below -likely will continue to have soft BP secondary to spinal cord injury -monitor #History of Hypertension -Hydralazine 75 mg BID discontinued 06/27 due to hypotension -Dyazide 37.5-25 mg daily discontinued 06/26 due to hypotension -Valsartan 320 mg daily discontinued 06/26 due to hypotension -Metoprolol succinate 25 mg daily discontinued on 07/04 due to soft BP and fatigue #Anxiety -Doxepin 100 mg nightly -Duloxetine 60 mg daily -Trazodone 75 mg nightly -Xanax 0.5mg QHS PRN #GERD -Famotidine 20 mg daily #Hyponatremia -sodium 124 on 06/26 --> 129 on 06/27 --> 131 on 06/28 --> 136 on 07/02 --> 138 on 07/04 -->134 on 07/06 -monitor with routine labs #Anemia -Ferrous sulfate 325mg BID #UTI -UA 07/03 positive for UTI -Urine culture 07/03 showed >100K E Coli -Cefuroxime 250mg BID x10 days (07/04/24-07/13/24) #Neurogenic bladder -Varma catheter removed on 07/02 as per Medicine team recs --> continued to retain --> Varma replaced on 07/04 #Neurogenic bowel -suppository daily at 1800 and transfer to [facility] DVT ppx: Heparin 5000 units SQ TID * Jocelyn Carballo, PT - 07/13/2024 10:00 AM EST [facility] Physical Therapy Treatment Note 07/13/2024 Patient: Yuly Montoya : 1955 Age: 68 y.o. Gender: female Primary Language: Tristanian Diagnosis: Lower extremity weakness Past Medical History: Diagnosis Date Adverse effect of anesthesia several hrs after sx pt had Panic attack Anxiety Arthritis Hypertension Irregular heart beat Joint pain Lymphedema Macular degeneration Past Surgical History: Procedure Laterality Date ABLATION OF DYSRHYTHMIC FOCUS BACK SURGERY N/A s/p L2-3 decompression 09/13/[address] Markham, s/p lumbar discectomy Dr. Bales, L3-4, L4-[address] Yarbrough February 2012, subsequent L4-S1 fusion in [place] with Dr. Cagle. CARPAL TUNNEL RELEASE Right TONSILLECTOMY ADENOIDECTOMY, BILATERAL MYRINGOTOMY AND TUBES TOTAL HIP ARTHROPLASTY Left 2022 TOTAL KNEE ARTHROPLASTY Bilateral Allergies: has No Known Allergies. Precautions: Medical Precautions: Fall Risk Safety Interventions: Call doss within reach, Bed alarm RUE Weight Bearing Status: Full LUE Weight Bearing Status: Full RLE Weight Bearing Status: Full LLE Weight Bearing Status: Full Orthopedic Precautions: Back Precautions NURSING RECOMMENDATIONS Bed Mobility: min A rolling, bed rails up, spinal precautions Transfers: clarisa Ambulation: none SUBJECTIVE Pt report: I'm getting more comfortable with the transfers Pain: Pain Assessment: 0-10 Pain Score: 4 Pain Location: Back OBJECTIVE General Observation: Pt in bed, eager for PT. Vitals: BP: (!) 147/92 Heart Rate: 79 SpO2: 94 % Procedure/Treatment: Neuromuscular Reeducation: Balance/Neuromuscular Re-Education Neuromuscular Re-Education Time Entry: 90 Pt received in bed, agreeable to PT. Supine >sit partial A, pt directing care. Rolling to sidelying supervision, assist to lower legs off bed, pt using upper extremities to push to sitting, overall partial A. Supervision sitting balance on air bed, max inflate for stability. Dynamic sitting balance, reaching one hand at a time lateral and back to midline to simulate transitioning hands during slideboard transfers, steadying A for balance. Pt directing care for slideboard transfers, partial Ax1 and SBAx1 from air bed > wheelchair. Assist to place/remove board, partial A provided for uplift with lateral scooting. Pt with improved trunk control noted. Pt directing care for posterior scoot back in wheelchair, partial A provided. Pt lining up wheelchair next to recliner for next slideboard transfer, min cues for appropriate positioning. Assist to place board, partial A initially for scooting, max A for final scoots due to pt starting to slide forward on the board and needing more assist for posterior positioning. Overall max Ax1 slideboard transfers wheelchair <> recliner. Atend of session, pt remaining up in wheelchair with chair alarm set, call doss within reach and all needs met. Education: Education Documentation Precautions, taught by Jocelyn Carballo, PT at 07/13/2024 12:21 PM. Learner: Patient Readiness: Eager Method: Explanation, Demonstration, Teach-back Response: Verbalizes Understanding, Demonstrated Understanding, Needs Reinforcement Comment: bed mobility, sitting balance, slideboard transfers, wc management Mobility Training, taught by Jocelyn Carballo, PT at 07/13/2024 12:21 PM. Learner: Patient Readiness: Eager Method: Explanation, Demonstration, Teach-back Response: Verbalizes Understanding, Demonstrated Understanding, Needs Reinforcement Comment: bed mobility, sitting balance, slideboard transfers, wc management Education Comments No comments found. ASSESSMENT PT Assessment PT Assessment Results: Decreased strength, Decreased endurance, Impaired balance, Impaired gait, Decreased mobility, Decreased coordination, Impaired sensation, Decreased skin integrity, Orthopedic restrictions, Pain Prognosis: Fair Evaluation/Treatment Tolerance: Patient tolerated treatment well Comments: Pt fluctuating with transfers, partial to max A. Improvement in directing care for transfers. Equipment: Wheelchair, slideboard Plan of Care Plan Treatment/Interventions: Functional transfer training, LE strengthening/ROM, Patient/family training, Bed mobility, Balance training, Gait training PT Plan: Skilled PT PT Frequency: 5 days per week PT Duration of Sessions: 90 min per day PT Treatments per day: 1 time per day PT Discharge Recommendations: (TBD) Equipment Recommended: TBD Problems/Goals Goals: Encounter Problems Encounter Problems (Active) Template: Physical Therapy Problem: PT Mh Teacher Goals Dates: Start: 06/26/24 Goal: Mod I rolling Dates: Start: 06/26/24 Expected End: 07/17/24 Outcomes Date/Time User Outcome 07/10/24 Vaishali Carballo PT Progressing Goal: Partial A transfers LRAD with pt directing care Dates: Start: 06/26/24 Expected End: 07/17/24 Outcomes Date/Time User Outcome 07/10/24 154Jax Carballo PT Progressing Goal: Sit <> supine partial A, pt directing care adhering to spinal precautions Dates: Start: 06/26/24 Expected End: 07/17/24 Outcomes Date/Time User Outcome 07/10/24 154Jax Carballo, PT Progressing Goal: Mod I wheelchair mobility x150' Dates: Start: 06/26/24 Expected End: 07/17/24 Outcomes Date/Time User Outcome 07/10/24 154Jax Carballo, PT Progressing Goal: Pt will sit independently x15 min Dates: Start: 06/26/24 Expected End: 07/17/24 Outcomes Date/Time User Outcome 07/10/24 154Jax Carballo PT Progressing Problem: PT Short Term Goals Dates: Start: 06/26/24 Goal: Supervision rolling Dates: Start: 06/26/24 Expected End: 07/03/24 Outcomes Date/Time User Outcome 07/10/24 154Jax Carballo, PT Progressing Goal: Sit <> supine max Ax1 Dates: Start: 06/26/24 Expected End: 07/03/24 Outcomes Date/Time User Outcome 07/10/24 1544 Jocelyn Carballo, PT Progressing Goal: Max A + partial A slideboard transfers Dates: Start: 06/26/24 Expected End: 07/03/24 Outcomes Date/Time User Outcome 07/10/24 1544 Jocelyn Carballo PT Progressing Goal: Supervision wheelchair mobility x100' (Resolved) Dates: Start: 06/26/24 Expected End: 07/03/24 Resolved: 07/10/24 Outcomes Date/Time User Outcome 07/10/24 1544 Jocelyn Carballo PT Completed Goal: Pt will sit with UE support x5 min supervision/steadying A Dates: Start: 06/26/24 Expected End: 07/03/24 Outcomes Date/Time User Outcome 07/10/24 1544 Jocelyn Carballo PT Progressing Encounter Problems (Resolved) There are no resolved problems. Session Start/Stop Time: 1000 1130 Therapy Minutes Physical Therapy PT Individual: 90 * Ben Miller OT - 07/12/2024 2:52 PM EST Yuly Montoya was unable to complete her planned Occupational Therapy session with Ben Miller OT on 07/12/2024 due to pt being seen by wound care . 70/90 min session completed. Next treatment attempt will be Tomorrow. * Jocelyn Carballo PT - 07/12/2024 1:30 PM EST [facility] Physical Therapy Treatment Note 07/12/2024 Patient: Yuly Montoya : 1955 Age: 68 y.o. Gender: female Primary Language: Tristanian Diagnosis: Lower extremity weakness Past Medical History: Diagnosis Date Adverse effect of anesthesia several hrs after sx pt had Panic attack Anxiety Arthritis Hypertension Irregular heart beat Joint pain Lymphedema Macular degeneration Past Surgical History: Procedure Laterality Date ABLATION OF DYSRHYTHMIC FOCUS BACK SURGERY N/A s/p L2-3 decompression 09/13/[address] Markham, s/p lumbar discectomy Dr. Bales, L3-4, L4-[address] Yarbrough February 2012, subsequent L4-S1 fusion in [place] with Dr. Cagle. CARPAL TUNNEL RELEASE Right TONSILLECTOMY ADENOIDECTOMY, BILATERAL MYRINGOTOMY AND TUBES TOTAL HIP ARTHROPLASTY Left 2022 TOTAL KNEE ARTHROPLASTY Bilateral Allergies: has No Known Allergies. Precautions: Medical Precautions: Fall Risk Safety Interventions: Call doss within reach, Bed alarm RUE Weight Bearing Status: Full LUE Weight Bearing Status: Full RLE Weight Bearing Status: Full LLE Weight Bearing Status: Full Orthopedic Precautions: Back Precautions NURSING RECOMMENDATIONS Bed Mobility: min A rolling, bed rails up, spinal precautions Transfers: clarisa Ambulation: none SUBJECTIVE Pt report: I'm struggling trying to reposition in bed because my legs are so heavy. Pain: Pain Assessment: No/denies pain OBJECTIVE General Observation: Pt supine in bed, agreeable to PT. Procedure/Treatment: Therapeutic Activities: Therapeutic Activity Time Entry: 65 Pt received in bed. Supine > sit completed with HOB slightly elevated, partial A. Pt rolling to sidelying supervision, this writer editor assisting pt to get lower extremities over EOB, pt able to use upper extremities to push up to sitting. Supervision sitting balance on airbed, on max inflate for increased stability. Completed sit > supine partial A, pt coming to sidelying position holding onto b edrails, this writer editor assisting lifting legs, pt then rolling to supine. Completed a second time partial A both directions, this time pt directing this writer editor on how to assist to improve pt independence with directing care. Once supine, all bedrails raised. Pt rolling both directions with use of bedrail supervision. Pt having difficulty maintaining sidelying position. Progressed to releasing one UE from bedrail to reach for back of pants to improve balance in sidelying for clothing management and repositioning in bed, steadying A required to maintain sidelying. Bed placed in Trendelenburg, pt able to reach arms overhead to assist with boosting to reposition higher in bed. At end of session, pt left in bed with alarm set, call doss within reach and all needs met. Education: Education Documentation Mobility Training, taught by Jocelyn Carballo PT at 07/12/2024 4:17 PM. Learner: Patient Readiness: Eager Method: Explanation, Demonstration Response: Verbalizes Understanding, Needs Reinforcement, Demonstrated Understanding Comment: bed mobility, sitting balance Mobility Training, taught by Jocelyn Carballo PT at 07/12/2024 12:01 PM. Learner: Patient Readiness: Acceptance Method: Explanation, Demonstration Response: Verbalizes Understanding, Demonstrated Understanding, Needs Reinforcement Comment: slideboard transfers, sitting balance Education Comments No comments found. ASSESSMENT PT Assessment PT Assessment Results: Decreased strength, Decreased endurance, Impaired balance, Impaired gait, Decreased mobility, Decreased coordination, Impaired sensation, Decreased skin integrity, Orthopedic restrictions, Pain Prognosis: Fair Evaluation/Treatment Tolerance: Patient tolerated treatment well Comments: Improving performance with bed mobiltiy. 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 Goals Dates: Start: 06/26/24 Goal: Mod I rolling Dates: Start: 06/26/24 Expected End: 07/17/24 Outcomes Date/Time User Outcome 07/10/24 Vaishali Carballo PT Progressing Goal: Partial A transfers LRAD with pt directing care Dates: Start: 06/26/24 Expected End: 07/17/24 Outcomes Date/Time User Outcome 07/10/24 154Jax Carballo PT Progressing Goal: Sit <> supine partial A, pt directing care adhering to spinal precautions Dates: Start: 06/26/24 Expected End: 07/17/24 Outcomes Date/Time User Outcome 07/10/24 Vaishali Carballo, PT Progressing Goal: Mod I wheelchair mobility x150' Dates: Start: 06/26/24 Expected End: 07/17/24 Outcomes Date/Time User Outcome 07/10/24 154Jax Carballo, PT Progressing Goal: Pt will sit independently x15 min Dates: Start: 06/26/24 Expected End: 07/17/24 Outcomes Date/Time User Outcome 07/10/24 Vaishali Carballo, PT Progressing Problem: PT Short Term Goals Dates: Start: 06/26/24 Goal: Supervision rolling Dates: Start: 06/26/24 Expected End: 07/03/24 Outcomes Date/Time User Outcome 07/10/24 1544 Jocelyn Carballo, PT Progressing Goal: Sit <> supine max Ax1 Dates: Start: 06/26/24 Expected End: 07/03/24 Outcomes Date/Time User Outcome 07/10/24 1544 Jocelyn Carballo PT Progressing Goal: Max A + partial A slideboard transfers Dates: Start: 06/26/24 Expected End: 07/03/24 Outcomes Date/Time User Outcome 07/10/24 1544 Jocelyn Carballo PT Progressing Goal: Supervision wheelchair mobility x100' (Resolved) Dates: Start: 06/26/24 Expected End: 07/03/24 Resolved: 07/10/24 Outcomes Date/Time User Outcome 07/10/24 1544 Jocelyn Carballo PT Completed Goal: Pt will sit with UE support x5 min supervision/steadying A Dates: Start: 06/26/24 Expected End: 07/03/24 Outcomes Date/Time User Outcome 07/10/24 1544 Jocelyn Carballo PT Progressing Encounter Problems (Resolved) There are no resolved problems. Session Start/Stop Time: 1330 1435 Therapy Minutes Physical Therapy PT Individual: 65 * THEODORA Pope - 07/12/2024 12:30 PM EST Images from the original note were not included. [facility] PROGRESS NOTE Date: 07/12/2024 Author: THEODORA Pope Patient ID: Yuly Montoya is a 68 y.o. female : 1955 MR#: [id number] SUBJECTIVE Subjective Patient seen. She reports that her spasms are better. Her truncal stability has also improved. She noted that on 5 mg 3 times daily she had worsening truncal weakness. She was doing better. Otherwisefrom respiratory standpoint she has no symptoms. ROS Constitutional :no fever chills , appetite fair, sleeping well, see above HEENT: denies headaches Respiratory: denies shortness of breath, coughing or wheezing Cardiac: denies chest pain, palpitations, : No abd pain, no N/V. Genitourinary: denies any dysuria frequency urgency Musculoskeletal: No joint pain ,back pain Allergies Patient has no known allergies. Current Medications: acetaminophen, 975 mg, oral, q8h EDEN ascorbic acid, 1,000 mg, oral, Daily baclofen, 2.5 mg, oral, TID bisacodyL, 10 mg, rectal, q24h cefuroxime, 250 mg, oral, BID cholecalciferol, 2,000 Units, oral, Daily clotrimazole, , Topical, BID doxepin, 100 mg, oral, Nightly DULoxetine, 60 mg, oral, Daily ferrous sulfate, 325 mg, oral, BID gabapentin, 200 mg, oral, q12h EDEN guaiFENesin, 600 mg, oral, q12h EDEN heparin (UFH), 5,000 Units, subcutaneous, q8h EDEN Lactobacillus acidoph-L.bulgar, 2 tablet, oral, TID with meals nicotine, 1 patch, transdermal, Daily pantoprazole, 40 mg, oral, q AM AC artificial tears, 2 drop, Both Eyes, TID traZODone, 75 mg, oral, Nightly zinc sulfate, 220 mg, oral, Daily PRN medications: ALPRAZolam, aluminum-magnesium hydroxide-simethicone, bisacodyL, docusate sodium, magnesium hydroxide, oxyCODONE OBJECTIVE Vitals: 07/11/24 1500 07/11/24 1646 07/12/24 0655 07/12/24 0953 BP: (!) 160/96 (!) 150/83 (!) 153/85 134/82 BP Location: Right arm;Upper Left arm Left arm Patient Position: Sitting Lying Sitting Pulse: 66 77 70 78 Resp: 16 18 18 18 Temp: 36.6 ??C (97.9 ??F) 36.6 ??C (97.9 ??F) 36.6 ??C (97.9 ??F) TempSrc: Oral Oral SpO2: 97% 95% 95% 92% Weight: PHYSICAL EXAM General: conscious alert no acute distress HEENT: pupils are equal round and reactive. extraocular movements are grossly intact lungs clear to auscultation, no wheezing or crackles noted heart regular rate and rhythm, no murmur or rubs abdomen soft nontender nondistended positive bowel sounds Musculoskeletal: No gross deformity to joints extremities without edema, erythema or calf tenderness neuro: Neurologically unchanged perhaps more movement to the right toes/foot, visible spasm noted so that that was the skin: no rashes or lesions. psych: mood stable appearing, good eye contact. LABS HEMATOLOGY Lab Results Component Value Date WBC 5.3 07/11/2024 HGB 9.9 (L) 07/11/2024 HCT 30.4 (L) 07/11/2024 MCV 91.8 07/11/2024 PLT 403 (H) 07/11/2024 CHEMISTRY Lab Results Component Value Date GLUCOSE 91 07/11/2024 NA 136 07/11/2024 K 4.6 07/11/2024 CO2 33 (H) 07/11/2024 CL 99 07/11/2024 BUN 9 07/11/2024 CREATININE 0.51 07/11/2024 EGFR 102 07/11/2024 CALCIUM 9.5 07/11/2024 MG 1.9 06/27/2024 PHOS 2.7 06/15/2024 ANIONGAP 4 07/11/2024 Imaging: ASSESSMENT & PLAN Thoracic spinal stenosis, Hx spinal mass, s/p 2 thoracic decompression surgeries 06/11 she was transferred to [facility] S/p T5-T8 fusion and T5-7 decompression T6-7 facetectomy and removal of mass. By Dr. Hall at [facility] in [place] Biopsy- Fragments of benign bone and cartilage with focus of necrotic bone. No malignancy identified. F/u with neurosurgery after discharge That is post Medrol Dosepak Patient has left foot plantarflexion and dorsiflexion as well as improved sensation on the left lower extremity Sensation on the right lower extremity -minimal toe movement neurogenic BB gabapentin 400 3 times daily Treatment per PMR 07/10- reports spasms to lower extremity since being off baclofen started baclofen 5 mg 3 times daily 07/11 baclofen dose reduced to 2.5 due to truncal weakness Now improved neurogenic bowel and bladder Varma cath recently DC'd due to sediment in the urine Urine/113 obtained positive for greater than 100,000 and E. coli pansensitive Currently on cefuroxime twice daily recommend treatment for 10 days due to complexity-hospitalization/Varma On bowel regimen/program UTI see above Complete treatment for complicated UTI General malaise/fatigue +COVID on 07/[address] She reports she is feeling better Isolation precautions x 10 days Encourage deep breathing. Incentive spirometry. Mucinex afebrile. No evidence hypoxia. Improved/resolved History of cervical spondylolisthesis with central canal stenosis Soft cervical collar when up therapy Atrial flutter s/p ablation Recent bradycardia now on lower dose of BB Toprol XL 25 mg discontinue as blood pressure has been low Rate controlled in the 50-60s monitor Hypertension Recent soft BP's /Hypotension Multiple meds DC'd patient's blood pressure S/p Discontinue Toprol Triamterene hydrochlorothiazide hydralazine and Diovan DC'd 07/12- BP has been running on the higher side. Resume Diovan 40mg hyponatremia context of diarrhea Resolved 136-134 Lymphedema acute on chronic Isiah wraps bilaterally. No pain to the extremities. Recent steroids IVF resolved Anxiety Mood stable Maintain on doxepin 100 mg nightly Duloxetine 60 mg Trazodone 75 mg nightly Anemia 10 and 31 on 06/27 now 8.8 and 27 from 9 and 28 Stable light downward trend Patient is better hydrated currently No signs of bleeding add PPI Feosol check guaiacs-negative thus far DVT prophylaxis with heparin DAILY CARE CHECKLIST * Gaby Carr RN - 07/12/2024 11:25 AM EST Images from the original note were not included. Wound Care Initial Consult Visit Date: 07/12/2024 Patient Name: Yuly Montoya Date of : 1955 Reason for Consult: Wound RN Consult received to assess coccygeal area and recommend topical treatment. Wound History: Patient with recent hx of back surgery and paraplegia. Nutritional Status: Pertinent Labs: Albumin Date Value Ref Range Status 07/06/2024 2.2 (L) 3.2 - 5.0 g/dL Final WBC Date Value Ref Range Status 07/11/2024 5.3 4.8 - 10.8 K/mcL Final WBC, Urine Date Value Ref Range Status 07/02/2024 79.0 (H) 0 - 4 /HPF Final Glucose POCT Date Value Ref Range Status 06/25/2024 108 70 - 199 mg/dL Final Comment: Fasting Reference Range: 70-99 mg/dL Non-Fasting Reference Range: 70-199 mg/dL Wound Assessment: Wound Incision Back Medial;Upper (Active) Wound Image 07/12/24 0845 Wound Bed Tissue Assessment Yellow;Red 07/12/24 0845 Corrina-Wound Assessment Clean;Dry;Intact 07/11/24 0855 Shape Linear 07/11/24 0855 Wound Length (cm) 23 cm 07/10/24 1820 Closure Glue 07/10/24 1820 Drainage Description Unable to assess 06/24/24 2300 Drainage Amount None 07/10/24 1820 Treatments Cleansed 07/10/24 0850 Dressing Foam 07/12/24 0845 Dressing Changed Maintained 07/12/24 0100 Dressing Status Intact;Dry;Clean 07/11/24 0855 Edges Well-defined edges 07/11/24 0855 Wound Moisture Associated Dermatitis 07/11/24 Gluteal Cleft Medial;Lower (Active) Wound Image 07/12/24 0842 Wound Bed Tissue Assessment [place] 07/12/24 0842 Corrina-Wound Assessment [place];Clean;Dry 07/11/24 1052 Shape Linear 07/12/24 0842 Wound Length (cm) 1 cm 07/12/24 0842 Wound Width (cm) 0.1 cm 07/12/24 0842 Wound Surface Area (cm^2) 0.1 cm^2 07/12/24 0842 Wound Depth (cm) 0 cm 07/11/24 1052 Wound Volume (cm^3) 0 cm^3 07/11/24 1052 Closure Other (Comment) 07/11/24 1052 Treatments Cleansed 07/12/24 0842 Dressing Other (Comment);Foam 07/12/24 0842 Dressing Changed Maintained 07/12/24 0100 Dressing Status Clean;Dry;Intact 07/11/24 1052 Edges Undefined edges 07/11/24 1052 Non-staged Wound Description Partial thickness 07/11/24 1052 Support Surface: Patient is 15 on Felipe scale score. She is already on Snow bed (low air loss) andher heels are offloaded with waffle boots. Continue to assistwith turning and repositioning q 2hr and prn. Wound Summary Assessment: Intergluteal cleft with linear excoriation and r/t skin to skin contact and MASD. [place] and superficial, linear. Wound Plan: Continue to apply moisture barrier and allevyn QOD. 07/12/2024 11:26 AM EST * THEODORA Lawson - 07/12/2024 10:27 AM EST Images from the original note were not included. [facility] Daily Progress Note Patient name: Yuly Montoya : 1955 SUBJECTIVE: Patient seen and examined at bedside today. No acute events overnight. Denies headaches, dizziness,shortness of breath, chest pain, nausea, constipation. Baclofen at a lower dose seems to be helping more. OBJECTIVE: Vitals: 07/11/24 1500 07/11/24 1646 07/12/24 0655 07/12/24 0953 BP: (!) 160/96 (!) 150/83 (!) 153/85 134/82 BP Location: Right arm;Upper Left arm Left arm Patient Position: Sitting Lying Sitting Pulse: 66 77 70 78 Resp: 16 18 18 18 Temp: 36.6 ??C (97.9 ??F) 36.6 ??C (97.9 ??F) 36.6 ??C (97.9 ??F) TempSrc: Oral Oral SpO2: 97% 95% 95% 92% Weight: Physical Examination: General: Alert, in no acute cardiopulmonary distress. Mental Status: Oriented to person, place and time. Normal affect. Head: Normocephalic. Eyes: Pupils are equal, round and reactive to light. Extraocular muscles intact. Ear, Nose and Throat: Oropharynx clear, mucous membranes moist. Ears and nose without masses, lesions or deformities. Neck: Supple, Trachea midline. Respiratory: Clear to auscultation and percussion. No wheezing, rales or rhonchi. Cardiovascular: Heart sounds normal. No thrills. Regular rate and rhythm, no murmurs, rubs or gallops. Gastrointestinal: Abdomen soft, non-tender, non-distended. Normal bowel sounds. Genitourinary: +Varma catheter in place with clear yellow urine in bag Neurologic: b/l LE weakness. Decreased ssensation to b/l LE R>l and decreased sensation to abd Skin: No rashes or lesions. No petechiae or purpura. No edema. Musculoskeletal: RLE 0/5 strength. LLE 0/5 hip flexion and knee extension. LLE 1/5 left dorsiflexion and plantarflexion. CURRENT INPATIENT MEDICATIONS: Current Facility-Administered Medications: acetaminophen (TYLENOL) tablet 975 mg, 975 mg, oral, q8h EDEN, Darline Lara DO, 975 mg at 07/12/24 0658 ALPRAZolam (XANAX) tablet 0.5 mg, 0.5 mg, oral, Nightly PRN, THEODORA Lawson, 0.5 mg at 07/11/24 2115 aluminum-magnesium hydroxide-simethicone (MAALOX) 200-200-20 mg/5 mL suspension 30 mL, 30 mL, oral,q4h PRN, THEODORA Lawson ascorbic acid (VITAMIN C) tablet 1,000 mg, 1,000 mg, oral, Daily, THEODORA Pope, 1,000 mg at07/12/24 0955 baclofen (LIORESAL) tablet 2.5 mg, 2.5 mg, oral, TID, THEODORA Pope, 2.5 mg at 07/12/24 0956 bisacodyL (DULCOLAX) suppository 10 mg, 10 mg, rectal, Daily PRN, THEODORA Lawson bisacodyL (DULCOLAX) suppository 10 mg, 10 mg, rectal, q24h, Darline Lara DO, 10 mg at 07/11/24 1841 cefuroxime (CEFTIN) tablet 250 mg, 250 mg, oral, BID, Umm Wood NP, 250 mg at 07/12/24 0955 cholecalciferol (VITAMIN D-3) tablet 2,000 Units, 2,000 Units, oral, Daily, THEODORA Pope, 2,000 Units at 07/12/24 0955 clotrimazole (LOTRIMIN) 1 % cream, , Topical, BID, Umm Wood NP, Given at 07/12/24 0956 docusate sodium (COLACE) capsule 100 mg, 100 mg, oral, BID PRN, Darline Lara DO, 100 mg at 07/11/24 1157 doxepin (SINEquan) capsule 100 mg, 100 mg, oral, Nightly, THEODORA Lawson, 100 mg at 07/11/242111 DULoxetine (CYMBALTA) DR capsule 60 mg, 60 mg, oral, Daily, THEODORA Lawson, 60 mg at 07/12/24 09 ferrous sulfate tablet 325 mg, 325 mg, oral, BID, Umm Wood NP, 325 mg at 07/12/24 09 gabapentin (NEURONTIN) capsule 200 mg, 200 mg, oral, q12h EDEN, Darline Lara, DO, 200 mg at 07/12/24 0955 guaiFENesin (MUCINEX) 12 hr tablet 600 mg, 600 mg, oral, q12h EDEN, THEODORA Pope, 600 mg at 07/12/24 0955 heparin (UFH) injection 5,000 Units, 5,000 Units, subcutaneous, q8h EDEN, Darline Lara DO, 5,000 Units at 07/12/24 0658 Lactobacillus acidoph-L.bulgar (FLORANEX) tablet 2 tablet, 2 tablet, oral, TID with meals, Umm Wood, [employer], 2 tablet at 07/12/24 0955 magnesium hydroxide (MILK OF MAGNESIA) 400 mg/5 mL suspension 30 mL, 30 mL, oral, Daily PRN, THEODORA Lawson nicotine (NICODERM CQ) 7 mg/24 hr 1 patch, 1 patch, transdermal, Daily, THEODORA Pope, 1 patch at 07/12/24954 oxyCODONE (ROXICODONE) immediate release tablet 5 mg, 5 mg, oral, q6h PRN, Darlnie Lara DO,5 mg at 07/11/242113 pantoprazole (PROTONIX) EC tablet 40 mg, 40 mg, oral, q AM AC, Umm Kovacs NP, 40 mg at 07/12/24 0658 polyvinyl alcohol-povidone (PF) (ARTIFICIAL TEARS) 1.4-0.6 % ophthalmic solution 2 drop, 2 drop, Both Eyes, TID, Darline Lara DO, 2 drop at 07/12/24 0956 traZODone (DESYREL) tablet 75 mg, 75 mg, oral, Nightly, THEODORA Lawson, 75 mg at 07/11/242112 zinc sulfate (ZINCATE) capsule 220 mg, 220 mg, oral, Daily, THEODORA Pope, 220 mg at 07/12/24 0955 LABS: Lab Results Component Value Date WBC 5.3 07/11/2024 RBC 3.30 (L) 07/11/2024 HGB 9.9 (L) 07/11/2024 HCT 30.4 (L) 07/11/2024 MCV 91.8 07/11/2024 MCHC 32.6 07/11/2024 RDW 15.9 (H) 07/11/2024 PLT 403 (H) 07/11/2024 MPV 9.3 07/11/2024 NRBC 0.0 07/11/2024 DIFF Lab Results Component Value Date LYMPHOPCT 13.4 07/04/2024 NEUTROABS 6.38 07/04/2024 LYMPHSABS 1.13 07/04/2024 MONOABS 0.60 07/04/2024 EOSABS 0.24 07/04/2024 BASOSABS 0.02 07/04/2024 IMMGRANABS 0.07 (H) 07/04/2024 RETIC No results found for: RETIC , RETICCTPCT Lab Results Component Value Date NA 136 07/11/2024 K 4.6 07/11/2024 CL 99 07/11/2024 CO2 33 (H) 07/11/2024 GLUCOSE 91 07/11/2024 BUN 9 07/11/2024 CREATININE 0.51 07/11/2024 CALCIUM 9.5 07/11/2024 PROT 4.4 (L) 07/06/2024 ALBUMIN 2.2 (L) 07/06/2024 BILITOT 0.3 07/06/2024 AST 14 07/06/2024 ALT 35 07/06/2024 PHOS 2.7 06/15/2024 MG 1.9 06/27/2024 ALKPHOS 101 07/06/2024 EGFR 102 07/11/2024 IMPRESSION & PLAN: #Impaired mobility and self care -Secondary to thoracic myelopathy -Continue with PT, OT, and nursing care #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 -s/p T5-T8 fusion and T5-7 decompression T6-7 facetectomy and removal of mass (non malignant) by [facility] at [place] -Betadine to surgical incision daily and leave open to air -continue therapies -5 day course of Methylprednisolone 4 mg daily completed on 06/30/24 -Tizanidine 2 mg daily 06/26 held due to hypotension --> discontinued on 06/27 due to hypotension -f/u NSG after discharge #Pain management -Tylenol 975mg Q8H -Gabapentin 800 mg BID --> changed to 400mg Q8H on 06/27 due to hypotension --> decreased to 200mg BID on 07/04 due to fatigue -Oxycodone 5mg Q6H PRN -Baclofen 5 mg TID started 07/10 --> decreased to 2.5mg TID on 07/11 due to worsening trunk stability #COVID-19 -patient with significant fatigue, asymptomatic and afebrile otherwise -tested positive on 07/04 -isolation precautions x10 days -Caridad following, appreciate recommendations -Acyclovir ointment TID x5 days 07/10 acyclovir d/c today #Hypotension, Resolved -s/p IVF on 06/27 -medications adjusted as outlined below -likely will continue to have soft BP secondary to spinal cord injury -monitor #History of Hypertension -Hydralazine 75 mg BID discontinued 06/27 due to hypotension -Dyazide 37.5-25 mg daily discontinued 06/26 due to hypotension -Valsartan 320 mg daily discontinued 06/26 due to hypotension -Metoprolol succinate 25 mg daily discontinued on 07/04 due to soft BP and fatigue #Anxiety -Doxepin 100 mg nightly -Duloxetine 60 mg daily -Trazodone 75 mg nightly -Xanax 0.5mg QHS PRN #GERD -Famotidine 20 mg daily #Hyponatremia -sodium 124 on 06/26 --> 129 on 06/27 --> 131 on 06/28 --> 136 on 07/02 --> 138 on 07/04 -->134 on 07/06 -monitor with routine labs #Anemia -Ferrous sulfate 325mg BID #UTI -UA 07/03 positive for UTI -Urine culture 07/03 showed >100K E Coli -Cefuroxime 250mg BID x10 days (07/04/24-07/13/24) #Neurogenic bladder -Varma catheter removed on 07/02 as per Medicine team recs --> continued to retain --> Varma replaced on 07/04 #Neurogenic bowel -suppository daily at 1800 and transfer to [facility] DVT ppx: Heparin 5000 units SQ TID Associated attestation - Darline Lara DO - 07/13/2024 8:26 AM EST Agree with progress note, assessment, and plan as documented by PA today. * Jocelyn Carballo, PT - 07/12/2024 10:00 AM EST [facility] Physical Therapy Treatment Note 07/12/2024 Patient: Yuly Montoya : 1955 Age: 68 y.o. Gender: female Primary Language: Tristanian Diagnosis: Lower extremity weakness Past Medical History: Diagnosis Date Adverse effect of anesthesia several hrs after sx pt had Panic attack Anxiety Arthritis Hypertension Irregular heart beat Joint pain Lymphedema Macular degeneration Past Surgical History: Procedure Laterality Date ABLATION OF DYSRHYTHMIC FOCUS BACK SURGERY N/A s/p L2-3 decompression 09/13/[address] Markham, s/p lumbar discectomy Dr. Bales, L3-4, L4-[address] Yarbrough February 2012, subsequent L4-S1 fusion in [place] with Dr. Cagle. CARPAL TUNNEL RELEASE Right TONSILLECTOMY ADENOIDECTOMY, BILATERAL MYRINGOTOMY AND TUBES TOTAL HIP ARTHROPLASTY Left 2022 TOTAL KNEE ARTHROPLASTY Bilateral Allergies: has No Known Allergies. Precautions: Medical Precautions: Fall Risk Safety Interventions: Call doss within reach, Bed alarm RUE Weight Bearing Status: Full LUE Weight Bearing Status: Full RLE Weight Bearing Status: Full LLE Weight Bearing Status: Full Orthopedic Precautions: Back Precautions NURSING RECOMMENDATIONS Bed Mobility: min A rolling, bed rails up, spinal precautions Transfers: clarisa Ambulation: none SUBJECTIVE Pt report: I have a hard time scooting backwards Pain: Pain Assessment: No/denies pain OBJECTIVE General Observation: Pt sitting in wheelchair, ready for PT. Procedure/Treatment: Neuromuscular Reeducation: Balance/Neuromuscular Re-Education Neuromuscular Re-Education Time Entry: 45 Pt received in wheelchair, ready for PT. Attempted various methods of lifting leg off leg rest, including using both hands under thigh, pulling on socks/pants to lift, and use of leg sap functional analyst, however pt unsuccessful at this time. Assist provided to get leg off leg rest, pt then able to remove leg rest from wheelchair. Completed x4 slideboard transfers, wheelchair <> recliner. First two transfers partial A, assist to place/remove board, partial A for lateral scooting. Pt with improved trunkcontrol noted, able to direct this writer editor through steps of transfer. Poor uplift noted, however pt able to advance along the board. Final two transfers max A due to fatigue, worsening trunk control no sharonda, pt starting to scoot forward to the edge of the slideboard vs lateral scooting due to relying on pulling on armrest. Pt unsuccessful at posterior scooting at this time. At end of session, pt left in wheelchair with alarm set, call doss within reach and all needs met. Education: Education Documentation Mobility Training, taught by Jocelyn Carballo PT at 07/12/2024 12:01 PM. Learner: Patient Readiness: Acceptance Method: Explanation, Demonstration Response: Verbalizes Understanding, Demonstrated Understanding, Needs Reinforcement Comment: slideboard transfers, sitting balance Education Comments No comments found. ASSESSMENT PT Assessment PT Assessment Results: Decreased strength, Decreased endurance, Impaired balance, Impaired gait, Decreased mobility, Decreased coordination, Impaired sensation, Decreased skin integrity, Orthopedic restrictions, Pain Prognosis: Fair Evaluation/Treatment Tolerance: Patient tolerated treatment well Comments: Pt fluctuating with slideboard transfers, partial A initially, but requiring max A with fatigue and decreasing trunk control noted. 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 Goals Dates: Start: 06/26/24 Goal: Mod I rolling Dates: Start: 06/26/24 Expected End: 07/17/24 Outcomes Date/Time User Outcome 07/10/24 Vaishali Carballo PT Progressing Goal: Partial A transfers LRAD with pt directing care Dates: Start: 06/26/24 Expected End: 07/17/24 Outcomes Date/Time User Outcome 07/10/24 [id number] Carballo PT Progressing Goal: Sit <> supine partial A, pt directing care adhering to spinal precautions Dates: Start: 06/26/24 Expected End: 07/17/24 Outcomes Date/Time User Outcome 07/10/24 154Jax Carballo PT Progressing Goal: Mod I wheelchair mobility x150' Dates: Start: 06/26/24 Expected End: 07/17/24 Outcomes Date/Time User Outcome 07/10/24 154Jax Carballo PT Progressing Goal: Pt will sit independently x15 min Dates: Start: 06/26/24 Expected End: 07/17/24 Outcomes Date/Time User Outcome 07/10/24 154Jax Carballo PT Progressing Problem: PT Short Term Goals Dates: Start: 06/26/24 Goal: Supervision rolling Dates: Start: 06/26/24 Expected End: 07/03/24 Outcomes Date/Time User Outcome 07/10/24 Vaishali Carballo, PT Progressing Goal: Sit <> supine max Ax1 Dates: Start: 06/26/24 Expected End: 07/03/24 Outcomes Date/Time User Outcome 07/10/24 Vaishali Carballo PT Progressing Goal: Max A + partial A slideboard transfers Dates: Start: 06/26/24 Expected End: 07/03/24 Outcomes Date/Time User Outcome 07/10/24 154Jax Carballo PT Progressing Goal: Supervision wheelchair mobility x100' (Resolved) Dates: Start: 06/26/24 Expected End: 07/03/24 Resolved: 07/10/24 Outcomes Date/Time User Outcome 07/10/24 Vaishali Carballo, PT Completed Goal: Pt will sit with UE support x5 min supervision/steadying A Dates: Start: 06/26/24 Expected End: 07/03/24 Outcomes Date/Time User Outcome 07/10/24 1544 Jocelyn Carballo PT Progressing Encounter Problems (Resolved) There are no resolved problems. Session Start/Stop Time: 1000 1045 Therapy Minutes Physical Therapy PT Individual: 45 * Ben Miller, OT - 07/12/2024 8:50 AM EST [facility] Occupational Therapy Treatment Note 07/12/24 Patient: Yuly Montoya : 1955 Age: 68 y.o. Gender: female Diagnosis: Lower extremity weakness Primary Rehab (Etiologic) Diagnosis: Patient Active Problem List Diagnosis Lumbar spondylosis Onychomycosis Pain in toe Sacroiliitis (CMS/HCC) Spondylolisthesis Cervical spondylosis Spinal stenosis of thoracic region Thoracic spinal stenosis Age-related macular degeneration Anxiety Atrial flutter (CMS/HCC) Obstructive sleep apnea syndrome Deep vein thrombosis (DVT) of lower extremity (CMS/HCC) History of artificial joint Hypertension Osteoarthritis of hip Peripheral venous insufficiency S/P tonsillectomy and adenoidectomy Bradycardia Thoracic myelopathy Lower extremity weakness PMH: Past Medical History: Diagnosis Date Adverse effect of anesthesia several hrs after sx pt had Panic attack Anxiety Arthritis Hypertension Irregular heart beat Joint pain Lymphedema Macular degeneration PSH: Past Surgical History: Procedure Laterality Date ABLATION OF DYSRHYTHMIC FOCUS BACK SURGERY N/A s/p L2-3 decompression 09/13/[address] Markham, s/p lumbar discectomy Dr. Bales, L3-4, L4-[address] Yarbrough February 2012, subsequent L4-S1 fusion in [place] with Dr. Cagle. CARPAL TUNNEL RELEASE Right TONSILLECTOMY ADENOIDECTOMY, BILATERAL MYRINGOTOMY AND TUBES TOTAL HIP ARTHROPLASTY Left 2022 TOTAL KNEE ARTHROPLASTY Bilateral Allergies: has No Known Allergies. Precautions: Precautions Medical Precautions: Fall Risk Safety Interventions: Call doss within reach, Bed alarm RUE Weight Bearing Status: Full LUE Weight Bearing Status: Full RLE Weight Bearing Status: Full LLE Weight Bearing Status: Full Orthopedic Precautions: Back Precautions Vitals: BP: 132/72 Heart Rate: 78 Pain: Pain Assessment Pain Assessment: No/denies pain Subjective: I did sleep well last night, so I am tried today. Procedures/Interventions: ADLs/IADLs Self Care/Home Management (ADLs) Time Entry: 60 Pt in elevated supine upon arrival, agreeable to participation. Pt rolled to R with partial A for LLE positioning and use of bed rail, dep for posterior hygiene due to small amount of bowel. Pt attempting rolling without assist however unable, due to increased time. Dep to apply brief. Pt requesting to wash face only. Assist to thread varma and B Les through pants, while pt attempted to hike pants remainder of way with use of LH neighborhood planner and Ues. Pt rolling R><L with use of bed rial with partial A this date, for positioning LE to facilitate rolling. Pt attempting to hike pants over hipswith eduction provided on UE postioning to maximize INDEPENDENCE while maintaining side lying, pt with difficulty performing due to fatigue. Overall, total A for LB dressing this date. During rolling, clarisa pad placed. Pt hoyered from bed>w/c. Once seated in w/c pt performed oral hygiene at sinkwith distant S for safety. Pt able to alternate UE support, and maintain B UE unsupported at times. Pt donned shirt at sink with S, assuming unilateral UE support on sink, to assume trunk flexion to hike down posteriorly. Dep to Isiah wrap B Les and don socks. Therapeutic Activity Therapeutic Activity Time Entry: 10 Pt engaged in txfer training with SB from w/c><recliner. Pt educated on technique for positioning w/c, with cues for accurate set up. Pt performed SB txfer w/c>recliner with partial A of 1 and steadying A of 1 with B knees blocked throughout and assist for for re-adjusting feet intermittently. Txfer from recliner>w/c with partial A of 1 and SBA of 1 for safety, with B knees blocked throughout. Pt able to maintain anterior weight shift and control of trunk throughout txfers. End of session pt seated in w/c with chair alarm on and call doss in reach, with RN present. OT Assessment OT Assessment OT Assessment Results: Decreased ADL status, Decreased endurance, Decreased sensation, Visual deficit, Decreased trunk control for functional activities, Impaired tone Prognosis: Good Evaluation/Treatment Tolerance: Patient tolerated treatment well Comments: Pt demo'ing increased trunk support with 0/1 UE support during oral hygiene and UB dressing this date. Pt demo'ing increased independence with SB txfers this date, however 2 people still present for txfer for safety. OT Plan Plan Treatment Interventions: ADL retraining, Functional transfer training, UE strengthening/ROM, Endurance training, Equipment evaluation/education, Compensatory technique education, Continued evaluation OT Plan: Skilled OT OT Frequency : 5-7 days per week OT Duration of Sessions: 90 min per day OT Treatments per day: 1 time per day OT - Evaluation Status: Complete Equipment Recommended: (TBD) Barriers to Discharge: environemntal concerns, functional status, pt lives alone. 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 Dates: Start: 06/26/24 Expected End: 07/17/24 Outcomes Date/Time User Outcome 07/09/24 Precious Wilson, OT Progressing Goal: pt will be able to independently direct care, in order to perform toileting safely, while allowing greatest level of INDEPENDENCE (including DME use, txfer techniques, and strategies) Dates: Start: 06/26/24 Expected End: 07/17/24 Outcomes Date/Time User Outcome 07/09/24 Precious Wilson, OT Progressing Goal: Pt will tolerate 3/3 meals OOB Dates: Start: 06/26/24 Expected End: 07/17/24 Outcomes Date/Time User Outcome 07/09/24 Precious Veroshaheed Wilson, OT Progressing Goal: Pt will perform LB dressing with partial A, use of LH ADAPTIVE EQUIPTMENT prn Dates: Start: 06/26/24 Expected End: 07/17/24 Outcomes Date/Time User Outcome 07/09/24 Precious Veroshaheed Wilson, OT Progressing Goal: pt will perform toileting with overall max A. Dates: Start: 06/26/24 Expected End: 07/17/24 Outcomes Date/Time User Outcome 07/09/24 Precious Wilson, OT Progressing Goal: pt will don shirt with S, sitting unsupported. Dates: Start: 06/26/24 Expected End: 07/17/24 Description: Outcomes Date/Time User Outcome 07/09/24 Precious Wilson OT Progressing Problem: OT Short Term Goals Dates: Start: 06/26/24 Goal: Pt will perform rolling R><L with use of log roll technique, partial A, for pressure relief. Dates: Start: 06/26/24 Expected End: 07/03/24 Outcomes Date/Time User Outcome 07/12/24 1420 Ben Miller OT Progressing Goal: Pt will tolerate sitting OOB for 1/3 meals Dates: Start: 06/26/24 Expected End: 07/03/24 Outcomes Date/Time User Outcome 07/12/24 1420 Ben Miller OT Progressing Goal: Pt will sit at EOB for 10 minutes, with no more than partial A for balance to increase Potter with EOB ADL Dates: Start: 06/26/24 Expected End: 07/03/24 Outcomes Date/Time User Outcome 07/09/24 1159 Vero Wilson, OT Progressing Goal: Pt will verbalize 3 pressure relief techniques in order to reduce sophia of pressure injury Dates: Start: 06/26/24 Expected End: 07/03/24 Outcomes Date/Time User Outcome 07/09/24 1159 Vero Wilson, OT Progressing Goal: Pt will perform oral hygiene w/c level, with JACINTO. Dates: Start: 06/26/24 Expected End: 07/03/24 Outcomes Date/Time User Outcome 07/09/24 1159 Vero Wilson, OT Adequate for Discharge Encounter Problems (Resolved) There are no resolved problems. Education Documentation Self Advocacy/Consumer Competency, taught by Ben Miller OT at 07/12/2024 2:26 PM. Learner: Patient Readiness: Acceptance Method: Explanation, Demonstration Response: Verbalizes Understanding, Demonstrated Understanding, Needs Reinforcement ADL Training, taught by Ben Miller OT at 07/12/2024 2:26 PM. Learner: Patient Readiness: Acceptance Method: Explanation, Demonstration Response: Verbalizes Understanding, Demonstrated Understanding, Needs Reinforcement Precautions, taught by Ben Miller OT at 07/12/2024 2:26 PM. Learner: Patient Readiness: Acceptance Method: Explanation, Demonstration Response: Verbalizes Understanding, Demonstrated Understanding, Needs Reinforcement Body Mechanics, taught by Ben Miller OT at 07/12/2024 2:26 PM. Learner: Patient Readiness: Acceptance Method: Explanation, Demonstration Response: Verbalizes Understanding, Demonstrated Understanding, Needs Reinforcement Skin Care/Pressure Ulcer Prevention, taught by Ben Miller OT at 07/12/2024 2:26 PM. Learner: Patient Readiness: Acceptance Method: Explanation, Demonstration Response: Verbalizes Understanding, Demonstrated Understanding, Needs Reinforcement Fall Precautions, taught by Ben Miller OT at 07/12/2024 2:26 PM. Learner: Patient Readiness: Acceptance Method: Explanation, Demonstration Response: Verbalizes Understanding, Demonstrated Understanding, Needs Reinforcement Education Comments No comments found. Start/Stop Time OT Time Calculation OT Start Time: 0850 OT Stop Time: 1000 OT Time Calculation (min): 70 min Therapy Minutes: Occupational Therapy OT Individual: 70 * She Vigil RN - 07/12/2024 3:06 AM EST Droplet precautions maintained, Covid +. Denies pain. SCD, PUP, and air mattress on. Bed alarm on. Bed locked/low. Call doss within reach. * Darline Lara DO - 07/11/2024 11:17 PM EST Images from the original note were not included. [facility] Daily Progress Note Patient name: Yuly Montoya : 1955 SUBJECTIVE: Patient seen and examined at bedside today. No acute events overnight. Denies headaches, dizziness,shortness of breath, chest pain, nausea, constipation. Reports that she feels as though trunk control has slightly worsened since recent start of Baclofen. Dose therefore decreased after discussion with Medicine team. TEAM CONFERENCE: I was present and participated in team meeting today. I agree with team conferenceplan as documented in alternate note today. Please refer to team conference note for further details. OBJECTIVE: Vitals: 07/11/24 0511 07/11/24 0855 07/11/24 1500 07/11/24 1646 BP: 129/74 120/63 (!) 160/96 (!) 150/83 BP Location: Left arm Left arm;Upper Right arm;Upper Patient Position: Lying Lying Sitting Pulse: 66 76 66 77 Resp: 17 18 16 18 Temp: 36.6 ??C (97.9 ??F) 36.9 ??C (98.4 ??F) 36.6 ??C (97.9 ??F) TempSrc: Oral Temporal SpO2: 96% 98% 97% 95% Weight: Physical Examination: General: Alert, in no acute cardiopulmonary distress. Mental Status: Oriented to person, place and time. Normal affect. Head: Normocephalic. Eyes: Pupils are equal, round and reactive to light. Extraocular muscles intact. Ear, Nose and Throat: Oropharynx clear, mucous membranes moist. Ears and nose without masses, lesions or deformities. Neck: Supple, Trachea midline. Respiratory: Clear to auscultation and percussion. No wheezing, rales or rhonchi. Cardiovascular: Heart sounds normal. No thrills. Regular rate and rhythm, no murmurs, rubs or gallops. Gastrointestinal: Abdomen soft, non-tender, non-distended. Normal bowel sounds. Genitourinary: +Varma catheter in place with clear yellow urine in bag Neurologic: b/l LE weakness. Decreased ssensation to b/l LE R>l and decreased sensation to abd Skin: No rashes or lesions. No petechiae or purpura. No edema. Musculoskeletal: RLE 0/5 strength. LLE 0/5 hip flexion and knee extension. LLE 1/5 left dorsiflexion and plantarflexion. CURRENT INPATIENT MEDICATIONS: Current Facility-Administered Medications: acetaminophen (TYLENOL) tablet 975 mg, 975 mg, oral, q8h [facility], Darline Lara DO, 975 mg at 07/11/242114 ALPRAZolam (XANAX) tablet 0.5 mg, 0.5 mg, oral, Nightly PRN, THEODORA Lawson, 0.5 mg at 07/11/242114 aluminum-magnesium hydroxide-simethicone (MAALOX) 200-200-20 mg/5 mL suspension 30 mL, 30 mL, oral,q4h PRN, THEODORA Lawson ascorbic acid (VITAMIN C) tablet 1,000 mg, 1,000 mg, oral, Daily, THEODORA Pope, 1,000 mg at07/11/24 0846 baclofen (LIORESAL) tablet 2.5 mg, 2.5 mg, oral, TID, THEODORA Pope, 2.5 mg at 07/11/242113 bisacodyL (DULCOLAX) suppository 10 mg, 10 mg, rectal, Daily PRN, THEODORA Lawson bisacodyL (DULCOLAX) suppository 10 mg, 10 mg, rectal, q24h, Darline Lara DO, 10 mg at 07/11/24 184 cefuroxime (CEFTIN) tablet 250 mg, 250 mg, oral, BID, Umm Wood NP, 250 mg at 07/11/242112 cholecalciferol (VITAMIN D-3) tablet 2,000 Units, 2,000 Units, oral, Daily, THEODORA Pope, 2,000 Units at 07/11/24 0847 clotrimazole (LOTRIMIN) 1 % cream, , Topical, BID, Umm Wood NP, Given at 07/11/242114 docusate sodium (COLACE) capsule 100 mg, 100 mg, oral, BID PRN, Darline Lara DO, 100 mg at 07/11/24 115 doxepin (SINEquan) capsule 100 mg, 100 mg, oral, Nightly, THEODORA Lawson, 100 mg at 07/11/242111 DULoxetine (CYMBALTA) DR capsule 60 mg, 60 mg, oral, Daily, THEODORA Lawson, 60 mg at 07/11/24 0846 ferrous sulfate tablet 325 mg, 325 mg, oral, BID, Umm Wood NP, 325 mg at 07/11/242112 gabapentin (NEURONTIN) capsule 200 mg, 200 mg, oral, q12h EDEN, Darline Lara DO, 200 mg at 07/11/242111 guaiFENesin (MUCINEX) 12 hr tablet 600 mg, 600 mg, oral, q12h EDEN, THEODORA Pope, 600 mg at 07/11/242113 Lactobacillus acidoph-L.bulgar (FLORANEX) tablet 2 tablet, 2 tablet, oral, TID with meals, Umm Wood NP, 2 tablet at 07/11/24 174 magnesium hydroxide (MILK OF MAGNESIA) 400 mg/5 mL suspension 30 mL, 30 mL, oral, Daily PRN, THEODORA Lawson nicotine (NICODERM CQ) 7 mg/24 hr 1 patch, 1 patch, transdermal, Daily, THEODORA Pope, 1 patch at 07/11/24 0846 oxyCODONE (ROXICODONE) immediate release tablet 5 mg, 5 mg, oral, q6h PRN, Darline Lara DO,5 mg at 07/11/242113 pantoprazole (PROTONIX) EC tablet 40 mg, 40 mg, oral, q AM AC, Umm Kovacs NP, 40 mg at 07/11/24 0605 polyvinyl alcohol-povidone (PF) (ARTIFICIAL TEARS) 1.4-0.6 % ophthalmic solution 2 drop, 2 drop, Both Eyes, TID, Darline Lara DO, 2 drop at 07/11/242112 traZODone (DESYREL) tablet 75 mg, 75 mg, oral, Nightly, THEODORA Lawson, 75 mg at 07/11/242112 zinc sulfate (ZINCATE) capsule 220 mg, 220 mg, oral, Daily, THEODORA Pope, 220 mg at 07/11/24 0846 LABS: Lab Results Component Value Date WBC 5.3 07/11/2024 RBC 3.30 (L) 07/11/2024 HGB 9.9 (L) 07/11/2024 HCT 30.4 (L) 07/11/2024 MCV 91.8 07/11/2024 MCHC 32.6 07/11/2024 RDW 15.9 (H) 07/11/2024 PLT 403 (H) 07/11/2024 MPV 9.3 07/11/2024 NRBC 0.0 07/11/2024 DIFF Lab Results Component Value Date LYMPHOPCT 13.4 07/04/2024 NEUTROABS 6.38 07/04/2024 LYMPHSABS 1.13 07/04/2024 MONOABS 0.60 07/04/2024 EOSABS 0.24 07/04/2024 BASOSABS 0.02 07/04/2024 IMMGRANABS 0.07 (H) 07/04/2024 RETIC No results found for: RETIC , RETICCTPCT Lab Results Component Value Date NA 136 07/11/2024 K 4.6 07/11/2024 CL 99 07/11/2024 CO2 33 (H) 07/11/2024 GLUCOSE 91 07/11/2024 BUN 9 07/11/2024 CREATININE 0.51 07/11/2024 CALCIUM 9.5 07/11/2024 PROT 4.4 (L) 07/06/2024 ALBUMIN 2.2 (L) 07/06/2024 BILITOT 0.3 07/06/2024 AST 14 07/06/2024 ALT 35 07/06/2024 PHOS 2.7 06/15/2024 MG 1.9 06/27/2024 ALKPHOS 101 07/06/2024 EGFR 102 07/11/2024 IMPRESSION & PLAN: #Impaired mobility and self care -Secondary to thoracic myelopathy -Continue with PT, OT, and nursing care #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 -s/p T5-T8 fusion and T5-7 decompression T6-7 facetectomy and removal of mass (non malignant) by [facility] at [place] -Betadine to surgical incision daily and leave open to air -continue therapies -5 day course of Methylprednisolone 4 mg daily completed on 06/30/24 -Tizanidine 2 mg daily 06/26 held due to hypotension --> discontinued on 06/27 due to hypotension -f/u NSG after discharge #Pain management -Tylenol 975mg Q8H -Gabapentin 800 mg BID --> changed to 400mg Q8H on 06/27 due to hypotension --> decreased to 200mg BID on 07/04 due to fatigue -Oxycodone 5mg Q6H PRN -Baclofen 5 mg TID started 07/10 --> decreased to 2.5mg TID on 07/11 due to worsening trunk stability #COVID-19 -patient with significant fatigue, asymptomatic and afebrile otherwise -tested positive on 07/04 -isolation precautions x10 days -Caridad following, appreciate recommendations -Acyclovir ointment TID x5 days 07/10 acyclovir d/c today #Hypotension, Resolved -s/p IVF on 06/27 -medications adjusted as outlined below -likely will continue to have soft BP secondary to spinal cord injury -monitor #History of Hypertension -Hydralazine 75 mg BID discontinued 06/27 due to hypotension -Dyazide 37.5-25 mg daily discontinued 06/26 due to hypotension -Valsartan 320 mg daily discontinued 06/26 due to hypotension -Metoprolol succinate 25 mg daily discontinued on 07/04 due to soft BP and fatigue #Anxiety -Doxepin 100 mg nightly -Duloxetine 60 mg daily -Trazodone 75 mg nightly -Xanax 0.5mg QHS PRN #GERD -Famotidine 20 mg daily #Hyponatremia -sodium 124 on 06/26 --> 129 on 06/27 --> 131 on 06/28 --> 136 on 07/02 --> 138 on 07/04 -->134 on 07/06 -monitor with routine labs #Anemia -Ferrous sulfate 325mg BID #UTI -UA 07/03 positive for UTI -Urine culture 07/03 showed >100K E Coli -Cefuroxime 250mg BID x10 days (07/04/24-07/13/24) #Neurogenic bladder -Varma catheter removed on 07/02 as per Medicine team recs --> continued to retain --> Varma replaced on 07/04 #Neurogenic bowel -suppository daily at 1800 and transfer to commode DVT ppx: Heparin 5000 units SQ TID * Jocelyn Carballo, PT - 07/11/2024 1:15 PM EST [facility] Physical Therapy Treatment Note 07/11/2024 Patient: Yuly Montoya : 1955 Age: 68 y.o. Gender: female Primary Language: Tristanian Diagnosis: Lower extremity weakness Past Medical History: Diagnosis Date Adverse effect of anesthesia several hrs after sx pt had Panic attack Anxiety Arthritis Hypertension Irregular heart beat Joint pain Lymphedema Macular degeneration Past Surgical History: Procedure Laterality Date ABLATION OF DYSRHYTHMIC FOCUS BACK SURGERY N/A s/p L2-3 decompression 09/13/[address] Markham, s/p lumbar discectomy Dr. Bales, L3-4, L4-[address] Yarbrough February 2012, subsequent L4-S1 fusion in [place] with Dr. Cagle. CARPAL TUNNEL RELEASE Right TONSILLECTOMY ADENOIDECTOMY, BILATERAL MYRINGOTOMY AND TUBES TOTAL HIP ARTHROPLASTY Left 2022 TOTAL KNEE ARTHROPLASTY Bilateral Allergies: has No Known Allergies. Precautions: Medical Precautions: Fall Risk Safety Interventions: Call doss within reach, Bed alarm RUE Weight Bearing Status: Full LUE Weight Bearing Status: Full RLE Weight Bearing Status: Full LLE Weight Bearing Status: Full Orthopedic Precautions: Back Precautions NURSING RECOMMENDATIONS Bed Mobility: min A rolling, bed rails up, spinal precautions Transfers: clarisa Ambulation: none SUBJECTIVE Pt report: I feel like I was able to help more in this transfer Pain: Pain Assessment: 0-10 Pain Score: 5 - Moderate pain Pain Location: Back OBJECTIVE General Observation: Pt in wheelchair, ready for PT. Procedure/Treatment: Therapeutic Activities: Therapeutic Activity Time Entry: 90 Pt received in wheelchair. Completed passive gastroc stretching, full ankle mobility noted bilateral. Instructed pt in how to use leg sap functional analyst to assist in self stretching, pt having difficulty positioning around foot. Once in position, pt able to complete stretching into DF, and on L foot use for isometric PF resistance. Removed armrests, pt able to sit with hands in lap supervision. Progressed tounilateral shoulder taps, difficulty with RLE > LLE, no more than steadying A/min A. Completed x4 slideboard transfers wheelchair <> recliner, max Ax1 and steadying Ax1 for safety. Assist toplace/remove board. Pt provided with extended time to complete, making small scoots 1-2 inches at atime, assist to clear wheel and scoot posteriorly. Pt cued to lean forward throughout. Pt with improved ability to assist with transfers today. At end of session, pt left in wheelchair with alarm set, call doss within reach and all needs met. Education: Education Documentation Mobility Training, taught by Jocelyn Carballo PT at 07/11/2024 4:06 PM. Learner: Patient Readiness: Eager Method: Explanation, Demonstration Response: Verbalizes Understanding, Demonstrated Understanding, Needs Reinforcement Comment: sitting balance, slideboard transfers Education Comments No comments found. ASSESSMENT PT Assessment PT Assessment Results: Decreased strength, Decreased endurance, Impaired balance, Impaired gait, Decreased mobility, Decreased coordination, Impaired sensation, Decreased skin integrity, Orthopedic restrictions, Pain Prognosis: Fair Evaluation/Treatment Tolerance: Patient tolerated treatment well Comments: Progressing slideboard transfers given extra time to complete. Equipment: TBD Plan of Care Plan Treatment/Interventions: Functional transfer training, LE strengthening/ROM, Patient/family training, Bed mobility, Balance training, Gait training PT Plan: Skilled PT PT Frequency: 5 days per week PT Duration of Sessions: 90 min per day PT Treatments per day: 1 time per day PT Discharge Recommendations: (TBD) Equipment Recommended: TBD Problems/Goals Goals: Encounter Problems Encounter Problems (Active) Template: Physical Therapy Problem: PT Assisted Goals Dates: Start: 06/26/24 Goal: Mod I rolling Dates: Start: 06/26/24 Expected End: 07/17/24 Outcomes Date/Time User Outcome 07/10/24 154Jax Carballo PT Progressing Goal: Partial A transfers LRAD with pt directing care Dates: Start: 06/26/24 Expected End: 07/17/24 Outcomes Date/Time User Outcome 07/10/24 Vaishali Carballo PT Progressing Goal: Sit <> supine partial A, pt directing care adhering to spinal precautions Dates: Start: 06/26/24 Expected End: 07/17/24 Outcomes Date/Time User Outcome 07/10/24 154Jax Carballo PT Progressing Goal: Mod I wheelchair mobility x150' Dates: Start: 06/26/24 Expected End: 07/17/24 Outcomes Date/Time User Outcome 07/10/24 154Jax Carballo PT Progressing Goal: Pt will sit independently x15 min Dates: Start: 06/26/24 Expected End: 07/17/24 Outcomes Date/Time User Outcome 07/10/24 154Jax Carballo PT Progressing Problem: PT Short Term Goals Dates: Start: 06/26/24 Goal: Supervision rolling Dates: Start: 06/26/24 Expected End: 07/03/24 Outcomes Date/Time User Outcome 07/10/24 154Jax Carballo PT Progressing Goal: Sit <> supine max Ax1 Dates: Start: 06/26/24 Expected End: 07/03/24 Outcomes Date/Time User Outcome 07/10/24 1544 Jocelyn Carballo PT Progressing Goal: Max A + partial A slideboard transfers Dates: Start: 06/26/24 Expected End: 07/03/24 Outcomes Date/Time User Outcome 07/10/24 1544 Jocelyn Carballo PT Progressing Goal: Supervision wheelchair mobility x100' (Resolved) Dates: Start: 06/26/24 Expected End: 07/03/24 Resolved: 07/10/24 Outcomes Date/Time User Outcome 07/10/24 1544 Jocelyn Carballo PT Completed Goal: Pt will sit with UE support x5 min supervision/steadying A Dates: Start: 06/26/24 Expected End: 07/03/24 Outcomes Date/Time User Outcome 07/10/24 1544 Jocelyn Carballo PT Progressing Encounter Problems (Resolved) There are no resolved problems. Session Start/Stop Time: 1315 1445 Therapy Minutes Physical Therapy PT Individual: 90 * Shari Rivas RN - 07/11/2024 12:35 PM EST Team meeting: CM Met with patient with patient at bedside to discuss recommendations from team meeting.Patient iswaiting for a SNF bed currently on isolation due to Covid + on 07/04 will be off isolation on 07/15.Wide SNF referral made.Patient is participating in OT PT CHILD ADOLESCENT CARE she requires partial assist for UB dressing max assist for LB Clarisa transfers to commode max to total assist with sup- sit.Discharge plan to SNF when bed is available.Patient is in agreement with recommendations and discharge plan had no further questions or concerns. * THEODORA Pope - 07/11/2024 12:15 PM EST Images from the original note were not included. CARID[facility] PROGRESS NOTE Date: 07/11/2024 Author: THEODORA Pope Patient ID: Yuly Montoya is a 68 y.o. female : 1955 MR#: [id number] SUBJECTIVE Subjective Patient seen. She states that she is feeling better. No chest pain shortness of breath cough. She reports that her spasms have improved on baclofen she is currently on 5 mg 3 times daily. But she hasnoticed that she is weaker when it comes to her core. Otherwise from a respiratory standpoint she is doing better. No fever no chills no chest pain no shortness of breath. ROS Constitutional :no fever chills , appetite fair, sleeping well, see above HEENT: denies headaches Respiratory: denies shortness of breath, coughing or wheezing Cardiac: denies chest pain, palpitations, : No abd pain, no N/V. Genitourinary: denies any dysuria frequency urgency Musculoskeletal: No joint pain ,back pain Allergies Patient has no known allergies. Current Medications: acetaminophen, 975 mg, oral, q8h EDEN ascorbic acid, 1,000 mg, oral, Daily baclofen, 2.5 mg, oral, TID bisacodyL, 10 mg, rectal, q24h cefuroxime, 250 mg, oral, BID cholecalciferol, 2,000 Units, oral, Daily clotrimazole, , Topical, BID doxepin, 100 mg, oral, Nightly DULoxetine, 60 mg, oral, Daily ferrous sulfate, 325 mg, oral, BID gabapentin, 200 mg, oral, q12h EDEN guaiFENesin, 600 mg, oral, q12h EDEN heparin (UFH), 5,000 Units, subcutaneous, q8h [facility] Lactobacillus acidoph-L.bulgar, 2 tablet, oral, TID with meals nicotine, 1 patch, transdermal, Daily pantoprazole, 40 mg, oral, q AM AC artificial tears, 2 drop, Both Eyes, TID traZODone, 75 mg, oral, Nightly zinc sulfate, 220 mg, oral, Daily PRN medications: ALPRAZolam, aluminum-magnesium hydroxide-simethicone, bisacodyL, docusate sodium, magnesium hydroxide, oxyCODONE OBJECTIVE Vitals: 07/10/24 0947 07/10/24 1721 07/11/24 0511 07/11/24 0855 BP: 129/81 (!) 150/80 129/74 120/63 BP Location: Left arm Left arm;Upper Patient Position: Lying Lying Pulse: 65 68 66 76 Resp: 18 Temp: 36.6 ??C (97.9 ??F) 36.6 ??C (97.9 ??F) 36.9 ??C (98.4 ??F) TempSrc: Oral Temporal SpO2: 94% 98% 96% 98% Weight: PHYSICAL EXAM General: conscious alert no acute distress HEENT: pupils are equal round and reactive. extraocular movements are grossly intact lungs clear to auscultation, no wheezing or crackles noted heart regular rate and rhythm, no murmur or rubs abdomen soft nontender nondistended positive bowel sounds Musculoskeletal: No gross deformity to joints extremities without edema, erythema or calf tenderness neuro: Neurologically unchanged perhaps more movement to the right toes/foot, visible spasm noted so that that was the skin: no rashes or lesions. psych: mood stable appearing, good eye contact. LABS HEMATOLOGY Lab Results Component Value Date WBC 5.3 07/11/2024 HGB 9.9 (L) 07/11/2024 HCT 30.4 (L) 07/11/2024 MCV 91.8 07/11/2024 PLT 403 (H) 07/11/2024 CHEMISTRY Lab Results Component Value Date GLUCOSE 91 07/11/2024 NA 136 07/11/2024 K 4.6 07/11/2024 CO2 33 (H) 07/11/2024 CL 99 07/11/2024 BUN 9 07/11/2024 CREATININE 0.51 07/11/2024 EGFR 102 07/11/2024 CALCIUM 9.5 07/11/2024 MG 1.9 06/27/2024 PHOS 2.7 06/15/2024 ANIONGAP 4 07/11/2024 Imaging: ASSESSMENT & PLAN Thoracic spinal stenosis, Hx spinal mass, s/p 2 thoracic decompression surgeries 06/11 she was transferred to [facility] S/p T5-T8 fusion and T5-7 decompression T6-7 facetectomy and removal of mass. By Dr. Hall at [facility] in [place] Biopsy- Fragments of benign bone and cartilage with focus of necrotic bone. No malignancy identified. F/u with neurosurgery after discharge That is post Medrol Dosepak Patient has left foot plantarflexion and dorsiflexion as well as improved sensation on the left lower extremity Sensation on the right lower extremity -minimal toe movement neurogenic BB gabapentin 400 3 times daily Treatment per PMR 07/10- reports spasms to lower extremity since being off baclofen (was discontinued as concern for extreme fatigue but was found to have COVID) restarted on baclofen 5 mg 3 times daily Reports increased core weakness would like to reduce baclofen. Will trial on a lower dose and see if she has any improvements. neurogenic bowel and bladder Varma cath recently DC'd due to sediment in the urine Urine/113 obtained positive for greater than 100,000 and E. coli pansensitive Currently on cefuroxime twice daily recommend treatment for 10 days due to complexity-hospitalization/Varma On bowel regimen/program UTI see above Complete treatment for complicated UTI General malaise/fatigue +COVID on 07/[address] She reports she is feeling better Isolation precautions x 10 days Encourage deep breathing. Incentive spirometry. Mucinex afebrile. No evidence hypoxia. Improved/resolved History of cervical spondylolisthesis with central canal stenosis Soft cervical collar when up therapy Atrial flutter s/p ablation Recent bradycardia now on lower dose of BB Toprol XL 25 mg discontinue as blood pressure has been low Rate controlled in the 50-60s monitor Hypertension Recent soft BP's /Hypotension Multiple meds DC'd patient's blood pressure occ elevated, may need to restart meds S/p Discontinue Toprol Triamterene hydrochlorothiazide hydralazine and Diovan DC'd hyponatremia context of diarrhea Resolved 136-134 Lymphedema acute on chronic Isiah wraps bilaterally. No pain to the extremities. Recent steroids IVF resolved Anxiety Mood stable Maintain on doxepin 100 mg nightly Duloxetine 60 mg Trazodone 75 mg nightly Anemia 10 and 31 on 06/27 now 8.8 and 27 from 9 and 28 Stable light downward trend Patient is better hydrated currently No signs of bleeding add PPI Feosol check guaiacs-negative thus far DVT prophylaxis with heparin DAILY CARE CHECKLIST * Joleen Hollingsworth - 07/11/2024 8:35 AM EST Social Work Note Integrated Hematology Nurse Educator: DX: HX of anxiety and some depressive symptoms: Met with the patient this morning at bedside to see how she has been doing. The patient shared someconcerns that she had this morning. She reports that she is worried about the next level of care due that she hopes that she will have a choice of where she goes and that scares her. Pain is a bit more manageable but her pain the neck sometimes can be uncomfortable. Will keep monitoring and following. Joleen Hollingsworth MS Clinician * Ben Miller, OT - 07/11/2024 8:30 AM EST [facility] Occupational Therapy Treatment Note 07/11/24 Patient: Yuly Montoya : 1955 Age: 68 y.o. Gender: female Diagnosis: Lower extremity weakness Primary Rehab (Etiologic) Diagnosis: Patient Active Problem List Diagnosis Lumbar spondylosis Onychomycosis Pain in toe Sacroiliitis (CMS/HCC) Spondylolisthesis Cervical spondylosis Spinal stenosis of thoracic region Thoracic spinal stenosis Age-related macular degeneration Anxiety Atrial flutter (CMS/HCC) Obstructive sleep apnea syndrome Deep vein thrombosis (DVT) of lower extremity (CMS/HCC) History of artificial joint Hypertension Osteoarthritis of hip Peripheral venous insufficiency S/P tonsillectomy and adenoidectomy Bradycardia Thoracic myelopathy Lower extremity weakness PMH: Past Medical History: Diagnosis Date Adverse effect of anesthesia several hrs after sx pt had Panic attack Anxiety Arthritis Hypertension Irregular heart beat Joint pain Lymphedema Macular degeneration PSH: Past Surgical History: Procedure Laterality Date ABLATION OF DYSRHYTHMIC FOCUS BACK SURGERY N/A s/p L2-3 decompression 09/13/[address] Markham, s/p lumbar discectomy Dr. Bales, L3-4, L4-[address] Yarbrough February 2012, subsequent L4-S1 fusion in [place] with Dr. Cagle. CARPAL TUNNEL RELEASE Right TONSILLECTOMY ADENOIDECTOMY, BILATERAL MYRINGOTOMY AND TUBES TOTAL HIP ARTHROPLASTY Left 2022 TOTAL KNEE ARTHROPLASTY Bilateral Allergies: has No Known Allergies. Precautions: Precautions Medical Precautions: Fall Risk Safety Interventions: Call doss within reach, Bed alarm RUE Weight Bearing Status: Full LUE Weight Bearing Status: Full RLE Weight Bearing Status: Full LLE Weight Bearing Status: Full Orthopedic Precautions: Back Precautions Subjective: I have never put my shirt on at the sink. Procedures/Interventions: ADLs/IADLs Self Care/Home Management (ADLs) Time Entry: 75 Pt in elevated supine upon arrival, agreeable to participation. Rn present, performed CHG bathe, and pt bathed face. Pt declining to wash remainder of body as pt had shower yesterday. For posterior hygiene, pt rolled R><L, managing bed controls, with touching A-partial A for rolling to reducemomentum. Dep for posterior hygiene, RN noting small open area on bottom, barrier cream and Allevynapplied. Dep to don brief. Assist required to theraband B legs and varma through pants, pt utilizing neighborhood planner to hike pants up to be able to reach with UE. Pt attempting to hike over hips in side lying. Pt required assist to hike over B hips and posteriorly due to fit of pants. Supine>Sit EOB with overall partial A for B Les, pt able to perform trunk uplift with B Ues on bed rail. Assist to reposition Les once at EOB, touching A from second person for balance. R LE lifted to place SB. Once SBplaced, pt began to slide forward on bed. Dep X2 to scoot pt back into bed. Max rest break taken with cues for UE remaining on bed, as pt with LOB while adjusting Ues. SB re-attempted, cues for maintaining trunk flexion and B UE support. SB completed with max A X2. Once in chair B leg rests donned.Pt positioned self at sink for oral hygiene, verbal cues for attending to B feet to ensure not positioned up against wall, pt reporting difficulty due to visual impairment. Pt performed oral hygiene,alternating UE support with distant S, no overt LOB. Pt donned shirt at sink to allow alternating UE support for sitting balance, pt donned shirt with overall S. Dep to B isiah wraps and socks. Therapeutic Exercise Therapeutic Exercise Time Entry: 15 With use of green level theraband pt performed 10 reps X3 of shoulder horizontal abduction and elbow extension with verbal cues for assuming target position. End of session all needs met, call doss in reach, and chair alarm on. OT Assessment OT Assessment OT Assessment Results: Decreased ADL status, Decreased endurance, Decreased sensation, Visual deficit, Decreased trunk control for functional activities, Impaired tone Prognosis: Good Evaluation/Treatment Tolerance: Previous OT updated this OT that pt was using neighborhood planner for LB dressing and performing UB dressing at sink to maximized independence. Pt reporting today that she doesn'trecall ever using a neighborhood planner for LB dressing or performing UB dressing at sink. Question memory difficulty. OT Plan Plan Treatment Interventions: ADL retraining, Functional transfer training, UE strengthening/ROM, Endurance training, Equipment evaluation/education, Compensatory technique education, Continued evaluation OT Plan: Skilled OT OT Frequency : 5-7 days per week OT Duration of Sessions: 90 min per day OT Treatments per day: 1 time per day OT - Evaluation Status: Complete Equipment Recommended: (TBD) Barriers to Discharge: environemntal concerns, functional status, pt lives alone. Goals: Encounter Problems Encounter Problems (Active) Template: Occupational Therapy Problem: OT Assisted Goals Dates: Start: 06/26/24 Goal: pt will improve dynamic sitting balance to S, for up to 15 minutes, while performing UB ADL. Dates: Start: 06/26/24 Expected End: 07/17/24 Outcomes Date/Time User Outcome 07/09/24 1159 Veroshaheed Wilson, OT Progressing Goal: pt will be able to independently direct care, in order to perform toileting safely, while allowing greatest level of INDEPENDENCE (including DME use, txfer techniques, and strategies) Dates: Start: 06/26/24 Expected End: 07/17/24 Outcomes Date/Time User Outcome 07/09/24 115Mayte Veroshaheed Wilson, OT Progressing Goal: Pt will tolerate 3/3 meals OOB Dates: Start: 06/26/24 Expected End: 07/17/24 Outcomes Date/Time User Outcome 07/09/24 Precious Vero Steve, OT Progressing Goal: Pt will perform LB dressing with partial A, use of LH ADAPTIVE EQUIPTMENT prn Dates: Start: 06/26/24 Expected End: 07/17/24 Outcomes Date/Time User Outcome 07/09/24 [email or web address] Veroshaheed Wilson, OT Progressing Goal: pt will perform toileting with overall max A. Dates: Start: 06/26/24 Expected End: 07/17/24 Outcomes Date/Time User Outcome 07/09/24 Precious Veroshaheed Wilson, OT Progressing Goal: pt will don shirt with S, sitting unsupported. Dates: Start: 06/26/24 Expected End: 07/17/24 Description: Outcomes Date/Time User Outcome 07/09/24 [email or web address] Vero Wilson, OT Progressing Problem: OT Short Term Goals Dates: Start: 06/26/24 Goal: Pt will perform rolling R><L with use of log roll technique, partial A, for pressure relief. Dates: Start: 06/26/24 Expected End: 07/03/24 Outcomes Date/Time User Outcome 07/09/24 Precious Wilson, OT Adequate for Discharge Goal: Pt will tolerate sitting OOB for 1/3 meals Dates: Start: 06/26/24 Expected End: 07/03/24 Outcomes Date/Time User Outcome 07/09/24 115Mayte Veroshaheed Wilson, OT Adequate for Discharge Goal: Pt will sit at EOB for 10 minutes, with no more than partial A for balance to increase Potter with EOB ADL Dates: Start: 06/26/24 Expected End: 07/03/24 Outcomes Date/Time User Outcome 07/09/24 Precious Wilson, OT Progressing Goal: Pt will verbalize 3 pressure relief techniques in order to reduce sophia of pressure injury Dates: Start: 06/26/24 Expected End: 07/03/24 Outcomes Date/Time User Outcome 07/09/24 [email or web address] Veroshaheed Wilson, OT Progressing Goal: Pt will perform oral hygiene w/c level, with JACINTO. Dates: Start: 06/26/24 Expected End: 07/03/24 Outcomes Date/Time User Outcome 07/09/24 GabrielaMayte Wilson, OT Adequate for Discharge Encounter Problems (Resolved) There are no resolved problems. Education Documentation Self Advocacy/Consumer Competency, taught by Ben Millre OT at 07/11/2024 3:14 PM. Learner: Patient Readiness: Acceptance Method: Explanation, Demonstration Response: Demonstrated Understanding, Verbalizes Understanding, Needs Reinforcement Skin Care/Pressure Ulcer Prevention, taught by Ben Miller OT at 07/11/2024 3:14 PM. Learner: Patient Readiness: Acceptance Method: Explanation, Demonstration Response: Demonstrated Understanding, Verbalizes Understanding, Needs Reinforcement ADL Training, taught by Ben Miller OT at 07/11/2024 3:14 PM. Learner: Patient Readiness: Acceptance Method: Explanation, Demonstration Response: Demonstrated Understanding, Verbalizes Understanding, Needs Reinforcement Home Exercise Program, taught by Ben Miller OT at 07/11/2024 3:14 PM. Learner: Patient Readiness: Acceptance Method: Explanation, Demonstration Response: Demonstrated Understanding, Verbalizes Understanding, Needs Reinforcement Precautions, taught by Ben Miller OT at 07/11/2024 3:14 PM. Learner: Patient Readiness: Acceptance Method: Explanation, Demonstration Response: Demonstrated Understanding, Verbalizes Understanding, Needs Reinforcement Body Mechanics, taught by Ben Miller OT at 07/11/2024 3:14 PM. Learner: Patient Readiness: Acceptance Method: Explanation, Demonstration Response: Demonstrated Understanding, Verbalizes Understanding, Needs Reinforcement Skin Care/Pressure Ulcer Prevention, taught by Ben Miller OT at 07/11/2024 3:14 PM. Learner: Patient Readiness: Acceptance Method: Explanation, Demonstration Response: Demonstrated Understanding, Verbalizes Understanding, Needs Reinforcement Fall Precautions, taught by Ben Miller OT at 07/11/2024 3:14 PM. Learner: Patient Readiness: Acceptance Method: Explanation, Demonstration Response: Demonstrated Understanding, Verbalizes Understanding, Needs Reinforcement Education Comments No comments found. Start/Stop Time OT Time Calculation OT Start Time: 0830 OT Stop Time: 1000 OT Time Calculation (min): 90 min Therapy Minutes: Occupational Therapy OT Individual: 90 * She Vigil RN - 07/11/2024 6:27 AM EST Problem: Cognitive: Rosalind Beltran Fall Risk Goal: Last Known Fall Outcome: Progressing Goal: Mobility requiring assistance of person or device Outcome: Progressing Goal: Dizziness Outcome: Progressing Goal: Medications Outcome: Progressing Goal: Mental Status/LOC/Awareness Outcome: Progressing Goal: Toileting Needs Outcome: Progressing Goal: Volume and Electrolyte Status Outcome: Progressing Goal: Communication/Sensory Outcome: Progressing Goal: Behavior Outcome: Progressing Problem: Skin Integrity: Pressure Injury Actual or Risk of Goal: Will not develop new pressure injury Outcome: Progressing Goal: Skin integrity will improve Outcome: Progressing Goal: Risk for impaired skin integrity will decrease Outcome: Progressing Problem: Activity:Pressure Injury Actual or Risk of Goal: Mobility will improve Outcome: Progressing Problem: Nutritional:Pressure Injury Actual or Risk of Goal: Nutritional status will improve Outcome: Progressing Goals: Identify possible barriers to meeting goals/advancing plan of care: Pt continues to work towards rehab goals. Stability of the patient: Moderately Unstable - Medium risk of patient condition declining or worsening End of Shift Summary: Covid +, droplet precautions maintained. Denies pain. SCD boots and PUPP on. Air mattress on. Call doss within reach. Bed alarm on. * Zenaida Munson RN - 07/10/2024 4:10 PM EST 08:50 Patient sitting up in bed, pt denied back discomfort. Medical Provider at bedside THEODORA Calabrese,Caridad requested nurse to apply Betadine solution to lower portion of back incision and to coverwith Mepilex foam dressing. Skin intact to lower incision,dark red skin along most of incision, no edema, no pruritus. Pt denied shortness of breath or chest discomfort. Reviewed Incentive Spirometrywith pt, resp inhalation to assist in alveoli to open up-to prevent atelectasis. No cough noted. I.S. device with pt on table. * Vero Wilson OT - 07/10/2024 2:13 PM EST [facility] Occupational Therapy Treatment Note 07/10/24 Patient: Yuly Montoya : 1955 Age: 68 y.o. Gender: female Diagnosis: Lower extremity weakness Primary Rehab (Etiologic) Diagnosis: Patient Active Problem List Diagnosis Lumbar spondylosis Onychomycosis Pain in toe Sacroiliitis (CMS/HCC) Spondylolisthesis Cervical spondylosis Spinal stenosis of thoracic region Thoracic spinal stenosis Age-related macular degeneration Anxiety Atrial flutter (CMS/HCC) Obstructive sleep apnea syndrome Deep vein thrombosis (DVT) of lower extremity (CMS/HCC) History of artificial joint Hypertension Osteoarthritis of hip Peripheral venous insufficiency S/P tonsillectomy and adenoidectomy Bradycardia Thoracic myelopathy Lower extremity weakness PMH: Past Medical History: Diagnosis Date Adverse effect of anesthesia several hrs after sx pt had Panic attack Anxiety Arthritis Hypertension Irregular heart beat Joint pain Lymphedema Macular degeneration PSH: Past Surgical History: Procedure Laterality Date ABLATION OF DYSRHYTHMIC FOCUS BACK SURGERY N/A s/p L2-3 decompression 09/13/[address] Markham, s/p lumbar discectomy Dr. Bales, L3-4, L4-[address] Yarbrough February 2012, subsequent L4-S1 fusion in [place] with Dr. Cagle. CARPAL TUNNEL RELEASE Right TONSILLECTOMY ADENOIDECTOMY, BILATERAL MYRINGOTOMY AND TUBES TOTAL HIP ARTHROPLASTY Left 2022 TOTAL KNEE ARTHROPLASTY Bilateral Allergies: has No Known Allergies. Precautions: Precautions Medical Precautions: Fall Risk Safety Interventions: Call doss within reach, Bed alarm RUE Weight Bearing Status: Full LUE Weight Bearing Status: Full RLE Weight Bearing Status: Full LLE Weight Bearing Status: Full Orthopedic Precautions: Back Precautions Vitals: Pain: Pain Assessment Pain Assessment: 0-10 Pain Score: 3 Subjective: I don't know why I am extra wobbly today Procedures/Interventions: ADLs/IADLs Self Care/Home Management (ADLs) Time Entry: 90 Upon arrival, pt supine in bed. Pt agreeable to participate in shower on this date. Pt able to doffshirt with HoB elevated steadying assist. Pt with slight incontinence in pants. Education provided on importance of bowel program and body taking time to get on schedule. Pt in agreement for briefs to contain BM and skin integrity purposes. Clarisa to bariatric rolling commode. Pt dep transport to shower room. Seated entirety of shower, pt completed total body bathing mod A, requiring assistance with buttocks and B LE. Pt demo decreased sitting balance with 1 UE support on grab bar on this date. Pt unable to complete smooth transition of switching shower head in hands however able to self correct. Pt with R lateral lean with elbow supported on shower chair to complete most of shower. Pt demo no spasms or posterior sliding on this date. Pt with incontinent episode while clarisa back to bed. Ptrepositioned back on commode to attempt having BM. Pt able to feel pressure when this therapist perf ormed posterior care. Pt clarisa back to bed to complete dressing. Pt completed LE dressing mod A, increased assistance on this date for rolling due to decreased momentum and leg positioning. With HOB elevated, pt donned shirt steadying assist. With use of B bed rails, pt able to pull self to unsupported sit with 1 UE support to perform grooming. B LE isiah wrapped. Offered for pt to get back into chair with pt declining. Pillow placed to offload heels with pt verbalizing getting un in the chair for dinner. Call doss within reach, bed alarm armed for pt's safety. OT Assessment OT Assessment OT Assessment Results: Decreased ADL status, Decreased endurance, Decreased sensation, Visual deficit, Decreased trunk control for functional activities, Impaired tone Prognosis: Good Evaluation/Treatment Tolerance: Patient tolerated treatment well Comments: Pt demo decreased unsupported sitting balance on this date with 1 UE support in shower with increased R lateral lean. Pt reporting increased fatigue. Pt able to sit in unsupported long with1 UE support while completing grooming tasks in bed on this date. Medical Staff Made Aware: Yes Comments: Vitals OT Plan Plan Treatment Interventions: ADL retraining, Functional transfer training, UE strengthening/ROM, Endurance training, Equipment evaluation/education, Compensatory technique education, Continued evaluation OT Plan: Skilled OT OT Frequency : 5-7 days per week OT Duration of Sessions: 90 min per day OT Treatments per day: 1 time per day OT - Evaluation Status: Complete Equipment Recommended: (TBD) Barriers to Discharge: environemntal concerns, functional status, pt lives alone. Goals: Encounter Problems Encounter Problems (Active) Template: Occupational Therapy Problem: OT Assisted Goals Dates: Start: 06/26/24 Goal: pt will improve dynamic sitting balance to S, for up to 15 minutes, while performing UB ADL. Dates: Start: 06/26/24 Expected End: 07/17/24 Outcomes Date/Time User Outcome 07/09/24 115Mayte Wilson, OT Progressing Goal: pt will be able to independently direct care, in order to perform toileting safely, while allowing greatest level of INDEPENDENCE (including DME use, txfer techniques, and strategies) Dates: Start: 06/26/24 Expected End: 07/17/24 Outcomes Date/Time User Outcome 07/09/24 Precious Wilson, OT Progressing Goal: Pt will tolerate 3/3 meals OOB Dates: Start: 06/26/24 Expected End: 07/17/24 Outcomes Date/Time User Outcome 07/09/24 115Mayte Wilson, OT Progressing Goal: Pt will perform LB dressing with partial A, use of LH ADAPTIVE EQUIPTMENT prn Dates: Start: 06/26/24 Expected End: 07/17/24 Outcomes Date/Time User Outcome 07/09/24 Precious Wilson OT Progressing Goal: pt will perform toileting with overall max A. Dates: Start: 06/26/24 Expected End: 07/17/24 Outcomes Date/Time User Outcome 07/09/24 Precious Wilson OT Progressing Goal: pt will don shirt with S, sitting unsupported. Dates: Start: 06/26/24 Expected End: 07/17/24 Description: Outcomes Date/Time User Outcome 07/09/24 Precious Wilson OT Progressing Problem: OT Short Term Goals Dates: Start: 06/26/24 Goal: Pt will perform rolling R><L with use of log roll technique, partial A, for pressure relief. Dates: Start: 06/26/24 Expected End: 07/03/24 Outcomes Date/Time User Outcome 07/09/24 Precious Wilson OT Adequate for Discharge Goal: Pt will tolerate sitting OOB for 1/3 meals Dates: Start: 06/26/24 Expected End: 07/03/24 Outcomes Date/Time User Outcome 07/09/24 Precious Wilson OT Adequate for Discharge Goal: Pt will sit at EOB for 10 minutes, with no more than partial A for balance to increase Potter with EOB ADL Dates: Start: 06/26/24 Expected End: 07/03/24 Outcomes Date/Time User Outcome 07/09/24 Precious Wilson OT Progressing Goal: Pt will verbalize 3 pressure relief techniques in order to reduce sophia of pressure injury Dates: Start: 06/26/24 Expected End: 07/03/24 Outcomes Date/Time User Outcome 07/09/24 Precious Wilson OT Progressing Goal: Pt will perform oral hygiene w/c level, with JACINTO. Dates: Start: 06/26/24 Expected End: 07/03/24 Outcomes Date/Time User Outcome 07/09/24 Precious Wilson OT Adequate for Discharge Encounter Problems (Resolved) There are no resolved problems. Education Documentation Skin Care/Pressure Ulcer Prevention, taught by Vero Wilson OT at 07/10/2024 2:12 PM. Learner: Patient Readiness: Acceptance Method: Explanation Response: Verbalizes Understanding ADL Training, taught by Vero Wilson OT at 07/10/2024 2:12 PM. Learner: Patient Readiness: Acceptance Method: Explanation Response: Verbalizes Understanding Home Exercise Program, taught by Vero Wilson OT at 07/10/2024 2:12 PM. Learner: Patient Readiness: Acceptance Method: Explanation Response: Verbalizes Understanding Precautions, taught by Vero Wilson OT at 07/10/2024 2:12 PM. Learner: Patient Readiness: Acceptance Method: Explanation Response: Verbalizes Understanding Body Mechanics, taught by Vero Wilson OT at 07/10/2024 2:12 PM. Learner: Patient Readiness: Acceptance Method: Explanation Response: Verbalizes Understanding Education Comments No comments found. Start/Stop Time OT Time Calculation OT Start Time: 1230 OT Stop Time: 1400 OT Time Calculation (min): 90 min Therapy Minutes: Occupational Therapy OT Individual: 90 * THEODORA Lawson - 07/10/2024 10:27 AM EST Images from the original note were not included. [facility] Daily Progress Note Patient name: Yuly Montoya : 1955 SUBJECTIVE: Patient seen and examined at bedside today. No acute events overnight. Denies headaches, dizziness,shortness of breath, chest pain, nausea, constipation. OBJECTIVE: Vitals: 07/09/24 1536 07/09/24 2042 07/10/24 0835 07/10/24 0947 BP: (!) 169/86 133/61 119/62 129/81 BP Location: Right arm Left arm Left arm;Upper Patient Position: Lying Pulse: 69 64 65 65 Resp: 18 16 Temp: 36.9 ??C (98.4 ??F) TempSrc: Temporal SpO2: 100% 100% 96% 94% Weight: Physical Examination: General: Alert, in no acute cardiopulmonary distress. Mental Status: Oriented to person, place and time. Normal affect. Head: Normocephalic. Eyes: Pupils are equal, round and reactive to light. Extraocular muscles intact. Ear, Nose and Throat: Oropharynx clear, mucous membranes moist. Ears and nose without masses, lesions or deformities. Neck: Supple, Trachea midline. Respiratory: Clear to auscultation and percussion. No wheezing, rales or rhonchi. Cardiovascular: Heart sounds normal. No thrills. Regular rate and rhythm, no murmurs, rubs or gallops. Gastrointestinal: Abdomen soft, non-tender, non-distended. Normal bowel sounds. Genitourinary: +Varma catheter in place with clear yellow urine in bag Neurologic: b/l LE weakness. Decreased ssensation to b/l LE R>l and decreased sensation to abd Skin: No rashes or lesions. No petechiae or purpura. No edema. Musculoskeletal: RLE 0/5 strength. LLE 0/5 hip flexion and knee extension. LLE 1/5 left dorsiflexion and plantarflexion. CURRENT INPATIENT MEDICATIONS: Current Facility-Administered Medications: acetaminophen (TYLENOL) tablet 975 mg, 975 mg, oral, q8h [facility], Darline Lara DO, 975 mg at 07/10/24 0556 ALPRAZolam (XANAX) tablet 0.5 mg, 0.5 mg, oral, Nightly PRN, THEODORA Lawson, 0.5 mg at 07/09/24 2213 aluminum-magnesium hydroxide-simethicone (MAALOX) 200-200-20 mg/5 mL suspension 30 mL, 30 mL, oral,q4h PRN, THEODORA Lawson ascorbic acid (VITAMIN C) tablet 1,000 mg, 1,000 mg, oral, Daily, THEODORA Pope, 1,000 mg at07/10/24 0846 baclofen (LIORESAL) tablet 5 mg, 5 mg, oral, TID, THEODORA Pope bisacodyL (DULCOLAX) suppository 10 mg, 10 mg, rectal, Daily PRN, THEODORA Lawson bisacodyL (DULCOLAX) suppository 10 mg, 10 mg, rectal, q24h, Darline Lara DO, 10 mg at 07/09/24 2200 cefuroxime (CEFTIN) tablet 250 mg, 250 mg, oral, BID, Umm Wood NP, 250 mg at 07/10/24 0846 cholecalciferol (VITAMIN D-3) tablet 2,000 Units, 2,000 Units, oral, Daily, THEODORA Pope, 2,000 Units at 07/10/24 0845 clotrimazole (LOTRIMIN) 1 % cream, , Topical, BID, Umm Wood NP, Given at 07/10/24 0850 docusate sodium (COLACE) capsule 100 mg, 100 mg, oral, BID PRN, Darline Lara DO, 100 mg at 07/06/24 1408 doxepin (SINEquan) capsule 100 mg, 100 mg, oral, Nightly, THEODORA Lawson, 100 mg at 07/09/24 2208 DULoxetine (CYMBALTA) DR capsule 60 mg, 60 mg, oral, Daily, THEODORA Lawson, 60 mg at 07/10/24 0843 ferrous sulfate tablet 325 mg, 325 mg, oral, BID, Umm Wood NP, 325 mg at 07/10/24 0844 gabapentin (NEURONTIN) capsule 200 mg, 200 mg, oral, q12h EDEN, Darline aLra DO, 200 mg at 07/10/24 0843 guaiFENesin (MUCINEX) 12 hr tablet 600 mg, 600 mg, oral, q12h EDEN, THEODORA Pope, 600 mg at 07/10/24 0843 heparin (UFH) injection 5,000 Units, 5,000 Units, subcutaneous, q8h EDEN, THEODORA Lawson, 5,000Units at 07/10/24 0557 Lactobacillus acidoph-L.bulgar (FLORANEX) tablet 2 tablet, 2 tablet, oral, TID with meals, Umm Wood NP, 2 tablet at 07/10/24 0845 magnesium hydroxide (MILK OF MAGNESIA) 400 mg/5 mL suspension 30 mL, 30 mL, oral, Daily PRN, THEODORA Lawson nicotine (NICODERM CQ) 7 mg/24 hr 1 patch, 1 patch, transdermal, Daily, THEODORA Pope, 1 patch at 07/10/24 0847 oxyCODONE (ROXICODONE) immediate release tablet 5 mg, 5 mg, oral, q6h PRN, Darline Lara DO,5 mg at 07/10/24 0842 pantoprazole (PROTONIX) EC tablet 40 mg, 40 mg, oral, q AM AC, Umm Kovacs, [employer], 40 mg at 07/10/24 0557 polyvinyl alcohol-povidone (PF) (ARTIFICIAL TEARS) 1.4-0.6 % ophthalmic solution 2 drop, 2 drop, Both Eyes, TID, Darline Lara DO, 2 drop at 07/10/24 0847 traZODone (DESYREL) tablet 75 mg, 75 mg, oral, Nightly, THEODORA Lawson, 75 mg at 07/09/24 2211 zinc sulfate (ZINCATE) capsule 220 mg, 220 mg, oral, Daily, THEODORA Pope, 220 mg at 07/10/24 0845 LABS: Lab Results Component Value Date WBC 4.9 07/06/2024 RBC 3.00 (L) 07/06/2024 HGB 8.8 (L) 07/06/2024 HCT 27.2 (L) 07/06/2024 MCV 91.3 07/06/2024 MCHC 32.4 07/06/2024 RDW 15.4 (H) 07/06/2024 PLT 147 07/06/2024 MPV 9.1 07/06/2024 NRBC 0.0 07/06/2024 DIFF Lab Results Component Value Date LYMPHOPCT 13.4 07/04/2024 NEUTROABS 6.38 07/04/2024 LYMPHSABS 1.13 07/04/2024 MONOABS 0.60 07/04/2024 EOSABS 0.24 07/04/2024 BASOSABS 0.02 07/04/2024 IMMGRANABS 0.07 (H) 07/04/2024 RETIC No results found for: RETIC , RETICCTPCT Lab Results Component Value Date NA 134 07/06/2024 K 4.1 07/06/2024 CL 98 07/06/2024 CO2 32 07/06/2024 GLUCOSE 102 (H) 07/06/2024 BUN 11 07/06/2024 CREATININE 0.49 (L) 07/06/2024 CALCIUM 9.2 07/06/2024 PROT 4.4 (L) 07/06/2024 ALBUMIN 2.2 (L) 07/06/2024 BILITOT 0.3 07/06/2024 AST 14 07/06/2024 ALT 35 07/06/2024 PHOS 2.7 06/15/2024 MG 1.9 06/27/2024 ALKPHOS 101 07/06/2024 EGFR 103 07/06/2024 IMPRESSION & PLAN: #Impaired mobility and self care -Secondary to thoracic myelopathy -Continue with PT, OT, and nursing care #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 -s/p T5-T8 fusion and T5-7 decompression T6-7 facetectomy and removal of mass (non malignant) by [facility] [place] -Betadine to surgical incision daily and leave open to air -continue therapies -5 day course of Methylprednisolone 4 mg daily completed on 06/30/24 -Tizanidine 2 mg daily 06/26 held due to hypotension --> discontinued on 06/27 due to hypotension -f/u NSG after discharge #Pain management -Tylenol 975mg Q8H -Gabapentin 800 mg BID --> changed to 400mg Q8H on 06/27 due to hypotension --> decreased to 200mg BID on 07/04 due to fatigue -Oxycodone 5mg Q6H PRN - Baclofen 5 mg TID started 07/10 #COVID-19 -patient with significant fatigue, asymptomatic and afebrile otherwise -tested positive on 07/04 -isolation precautions x10 days -Caridad following, appreciate recommendations -Acyclovir ointment TID x5 days 07/10 acyclovir d/c today #Hypotension, Resolved -s/p IVF on 06/27 -medications adjusted as outlined below -likely will continue to have soft BP secondary to spinal cord injury -monitor #History of Hypertension -Hydralazine 75 mg BID discontinued 06/27 due to hypotension -Dyazide 37.5-25 mg daily discontinued 06/26 due to hypotension -Valsartan 320 mg daily discontinued 06/26 due to hypotension -Metoprolol succinate 25 mg daily discontinued on 07/04 due to soft BP and fatigue #Anxiety -Doxepin 100 mg nightly -Duloxetine 60 mg daily -Trazodone 75 mg nightly -Xanax 0.5mg QHS PRN #GERD -Famotidine 20 mg daily #Hyponatremia -sodium 124 on 06/26 --> 129 on 06/27 --> 131 on 06/28 --> 136 on 07/02 --> 138 on 07/04 -->134 on 07/06 -monitor with routine labs #Anemia -Ferrous sulfate 325mg BID #UTI -UA 07/03 positive for UTI -Urine culture 07/03 showed >100K E Coli -Cefuroxime 250mg BID x10 days (07/04/24-07/13/24) #Neurogenic bladder -Varma catheter removed on 07/02 as per Medicine team recs --> continued to retain --> Varma replaced on 07/04 #Neurogenic bowel -suppository daily at 1800 and transfer to commode -patient denies incontinence in psat 24 hours DVT ppx: Heparin 5000 units SQ TID Associated attestation - Darline Lara DO - 07/11/2024 10:35 AM EST Agree with progress note, assessment, and plan as documented by PA today. * THEODORA Pope - 07/10/2024 9:01 AM EST Images from the original note were not included. [facility] PROGRESS NOTE Date: 07/10/2024 Author: THEODORA Pope Patient ID: Yuly Montoya is a 68 y.o. female : 1955 MR#: [id number] SUBJECTIVE Subjective Patient seen. She states that she is feeling better. No chest pain shortness of breath cough. She tested positive last week for COVID. She reports that she noticed her spasm are worse since being off the baclofen. ROS Constitutional :no fever chills , appetite fair, sleeping well, see above HEENT: denies headaches Respiratory: denies shortness of breath, coughing or wheezing Cardiac: denies chest pain, palpitations, : No abd pain, no N/V. Genitourinary: denies any dysuria frequency urgency Musculoskeletal: No joint pain ,back pain Allergies Patient has no known allergies. Current Medications: acetaminophen, 975 mg, oral, q8h EDEN ascorbic acid, 1,000 mg, oral, Daily bisacodyL, 10 mg, rectal, q24h cefuroxime, 250 mg, oral, BID cholecalciferol, 2,000 Units, oral, Daily clotrimazole, , Topical, BID doxepin, 100 mg, oral, Nightly DULoxetine, 60 mg, oral, Daily ferrous sulfate, 325 mg, oral, BID gabapentin, 200 mg, oral, q12h EDEN guaiFENesin, 600 mg, oral, q12h EDEN heparin (UFH), 5,000 Units, subcutaneous, q8h EDEN Lactobacillus acidoph-L.bulgar, 2 tablet, oral, TID with meals nicotine, 1 patch, transdermal, Daily pantoprazole, 40 mg, oral, q AM AC artificial tears, 2 drop, Both Eyes, TID traZODone, 75 mg, oral, Nightly zinc sulfate, 220 mg, oral, Daily PRN medications: ALPRAZolam, aluminum-magnesium hydroxide-simethicone, bisacodyL, docusate sodium, magnesium hydroxide, oxyCODONE OBJECTIVE Vitals: 07/09/24 1532 07/09/24 1536 07/09/24 2042 07/10/24 0835 BP: (!) 178/100 (!) 169/86 133/61 119/62 BP Location: Left arm Right arm Left arm Left arm;Upper Patient Position: Lying Pulse: 67 69 64 65 Resp: 18 18 16 Temp: 36.4 ??C (97.5 ??F) 36.9 ??C (98.4 ??F) TempSrc: Temporal SpO2: 99% 100% 100% 96% Weight: PHYSICAL EXAM General: conscious alert no acute distress HEENT: pupils are equal round and reactive. extraocular movements are grossly intact lungs clear to auscultation, no wheezing or crackles noted heart regular rate and rhythm, no murmur or rubs abdomen soft nontender nondistended positive bowel sounds Musculoskeletal: No gross deformity to joints extremities without edema, erythema or calf tenderness neuro: Neurologically unchanged perhaps more movement to the right toes/foot, visible spasm noted so that that was the skin: no rashes or lesions. psych: mood stable appearing, good eye contact. LABS HEMATOLOGY Lab Results Component Value Date WBC 4.9 07/06/2024 HGB 8.8 (L) 07/06/2024 HCT 27.2 (L) 07/06/2024 MCV 91.3 07/06/2024 PLT 147 07/06/2024 CHEMISTRY Lab Results Component Value Date GLUCOSE 102 (H) 07/06/2024 NA 134 07/06/2024 K 4.1 07/06/2024 CO2 32 07/06/2024 CL 98 07/06/2024 BUN 11 07/06/2024 CREATININE 0.49 (L) 07/06/2024 EGFR 103 07/06/2024 CALCIUM 9.2 07/06/2024 MG 1.9 06/27/2024 PHOS 2.7 06/15/2024 ANIONGAP 4 07/06/2024 Imaging: ASSESSMENT & PLAN Thoracic spinal stenosis, Hx spinal mass, s/p 2 thoracic decompression surgeries 06/11 she was transferred to [facility] S/p T5-T8 fusion and T5-7 decompression T6-7 facetectomy and removal of mass. By Dr. Hall at [facility] in [place] Biopsy- Fragments of benign bone and cartilage with focus of necrotic bone. No malignancy identified. F/u with neurosurgery after discharge That is post Medrol Dosepak Patient has left foot plantarflexion and dorsiflexion as well as improved sensation on the left lower extremity Sensation on the right lower extremity -minimal toe movement neurogenic BB gabapentin 400 3 times daily Treatment per PMR 07/10- reports spasms to lower extremity since being off baclofen (was discontinued as concern for extreme fatigue but was found to have COVID) Will reach out to Dr. Lara would likely benefit from 5 mg 3 times daily neurogenic bowel and bladder Varma cath recently DC'd due to sediment in the urine Urine/113 obtained positive for greater than 100,000 and E. coli pansensitive Currently on cefuroxime twice daily recommend treatment for 10 days due to complexity-hospitalization/Varma On bowel regimen/program UTI see above Complete treatment for complicated UTI General malaise/fatigue +COVID on 07/[address] She reports she is feeling better Isolation precautions x 10 days Encourage deep breathing. Incentive spirometry. Mucinex afebrile. No evidence hypoxia. Improved/resolved History of cervical spondylolisthesis with central canal stenosis Soft cervical collar when up therapy Atrial flutter s/p ablation Recent bradycardia now on lower dose of BB Toprol XL 25 mg discontinue as blood pressure has been low Rate controlled in the 50-60s monitor Hypertension Recent soft BP's /Hypotension Multiple meds DC'd patient's blood pressure occ elevated, may need to restart meds S/p Discontinue Toprol Triamterene hydrochlorothiazide hydralazine and Diovan DC'd hyponatremia context of diarrhea Resolved 136-134 Lymphedema acute on chronic Isiah wraps bilaterally. No pain to the extremities. Recent steroids IVF resolved Anxiety Mood stable Maintain on doxepin 100 mg nightly Duloxetine 60 mg Trazodone 75 mg nightly Anemia 10 and 31 on 06/27 now 8.8 and 27 from 9 and 28 Stable light downward trend Patient is better hydrated currently No signs of bleeding add PPI Add Feosol check guaiacs-negative thus far DVT prophylaxis with heparin DAILY CARE CHECKLIST * Jocelyn Carballo, PT - 07/10/2024 8:30 AM EST [facility] Physical Therapy Treatment Note 07/10/2024 Patient: Yuly Montoya : 1955 Age: 68 y.o. Gender: female Primary Language: Tristanian Diagnosis: Lower extremity weakness Past Medical History: Diagnosis Date Adverse effect of anesthesia several hrs after sx pt had Panic attack Anxiety Arthritis Hypertension Irregular heart beat Joint pain Lymphedema Macular degeneration Past Surgical History: Procedure Laterality Date ABLATION OF DYSRHYTHMIC FOCUS BACK SURGERY N/A s/p L2-3 decompression 09/13/[address] Markham, s/p lumbar discectomy Dr. Bales, L3-4, L4-[address] Yarbrough February 2012, subsequent L4-S1 fusion in [place] with Dr. Cagle. CARPAL TUNNEL RELEASE Right TONSILLECTOMY ADENOIDECTOMY, BILATERAL MYRINGOTOMY AND TUBES TOTAL HIP ARTHROPLASTY Left 2022 TOTAL KNEE ARTHROPLASTY Bilateral Allergies: has No Known Allergies. Precautions: Medical Precautions: Fall Risk Safety Interventions: Call doss within reach, Bed alarm RUE Weight Bearing Status: Full LUE Weight Bearing Status: Full RLE Weight Bearing Status: Full LLE Weight Bearing Status: Full Orthopedic Precautions: Back Precautions NURSING RECOMMENDATIONS Bed Mobility: min A rolling, bed rails up, spinal precautions Transfers: clarisa Ambulation: none SUBJECTIVE Pt report: I don't like sitting in the wheelchair. My neck gets so tired Pain: Pain Assessment: 0-10 Pain Score: 6 Pain Location: Neck OBJECTIVE General Observation: Pt in bed, agreeable to PT. Vitals: BP: 129/81 Heart Rate: 65 SpO2: 94 % Procedure/Treatment: Neuromuscular Reeducation: Balance/Neuromuscular Re-Education Neuromuscular Re-Education Time Entry: 90 Pt received in bed, agreeable to PT. Partial A rolling with bedrails, assist to bend knee prior to rolling. Max A to don pants. Supine > sit max Ax1. Partial A for sitting balance initially, progressing to supervision. Max Ax2 slideboard transfer bed > wheelchair, pt's LLE spasming into extension mid transfer, assist for repositioning legs and trunk control throughout, poor uplift noted for slideboard transfer. Pt set up at sink, completing oral hygiene. Completed slideboard transfer wheelchair > recliner, max A + partial A. Pt directing steps for transfer, able to remove leg rests prior to transfer, attempted to place/remove board but unsuccessful and needing assist. Dependent to boost back in recliner. Legs elevated on recliner. Pt completing reaching activity, using one UE on armrest to maintain forward position, reaching within JONATHON. At end of session, pt left in recliner with alarm set, call doss within reach and all needs met. Pt and PCT aware of recommendations for staying up in wheelchair for 1 hour and then getting back to bed for offloading and skin protection. Education: Education Documentation Mobility Training, taught by Jocelyn Carballo PT at 07/10/2024 3:50 PM. Learner: Patient Readiness: Acceptance Method: Explanation, Demonstration Response: Verbalizes Understanding, Demonstrated Understanding, Needs Reinforcement Comment: bed mobility, sitting balance, slideboard transfers Education Comments No comments found. ASSESSMENT PT Assessment PT Assessment Results: Decreased strength, Decreased endurance, Impaired balance, Impaired gait, Decreased mobility, Decreased coordination, Impaired sensation, Decreased skin integrity, Orthopedic restrictions, Pain Prognosis: Fair Evaluation/Treatment Tolerance: Patient tolerated treatment well Comments: Pt having difficulty completing slideboard transfers from airbed due to unstable surface,doing better from wc <> recliner. Pt tolerating sitting up in recliner at end of session. Equipment: TBD Plan of Care Plan Treatment/Interventions: Functional transfer training, LE strengthening/ROM, Patient/family training, Bed mobility, Balance training, Gait training PT Plan: Skilled PT PT Frequency: 5 days per week PT Duration of Sessions: 90 min per day PT Treatments per day: 1 time per day PT Discharge Recommendations: (TBD) Equipment Recommended: TBD Problems/Goals Goals: Encounter Problems Encounter Problems (Active) Template: Physical Therapy Problem: PT Assisted Goals Dates: Start: 06/26/24 Goal: Mod I rolling Dates: Start: 06/26/24 Expected End: 07/17/24 Outcomes Date/Time User Outcome 07/10/24 1544 Jocelyn Carballo PT Progressing Goal: Partial A transfers LRAD with pt directing care Dates: Start: 06/26/24 Expected End: 07/17/24 Outcomes Date/Time User Outcome 07/10/24 1544 Jocelyn Carballo, PT Progressing Goal: Sit <> supine partial A, pt directing care adhering to spinal precautions Dates: Start: 06/26/24 Expected End: 07/17/24 Outcomes Date/Time User Outcome 07/10/24 1544 Jocelyn Carballo, PT Progressing Goal: Mod I wheelchair mobility x150' Dates: Start: 06/26/24 Expected End: 07/17/24 Outcomes Date/Time User Outcome 07/10/24 [id number] Carballo, PT Progressing Goal: Pt will sit independently x15 min Dates: Start: 06/26/24 Expected End: 07/17/24 Outcomes Date/Time User Outcome 07/10/24 1544 Jocelyn Carballo PT Progressing Problem: PT Short Term Goals Dates: Start: 06/26/24 Goal: Supervision rolling Dates: Start: 06/26/24 Expected End: 07/03/24 Outcomes Date/Time User Outcome 07/10/24 1544 Jocelyn Carballo, PT Progressing Goal: Sit <> supine max Ax1 Dates: Start: 06/26/24 Expected End: 07/03/24 Outcomes Date/Time User Outcome 07/10/24 1544 Jocelyn Carballo PT Progressing Goal: Max A + partial A slideboard transfers Dates: Start: 06/26/24 Expected End: 07/03/24 Outcomes Date/Time User Outcome 07/10/24 1544 Jocelyn Carballo PT Progressing Goal: Supervision wheelchair mobility x100' (Resolved) Dates: Start: 06/26/24 Expected End: 07/03/24 Resolved: 07/10/24 Outcomes Date/Time User Outcome 07/10/24 1544 Jocelyn Carballo PT Completed Goal: Pt will sit with UE support x5 min supervision/steadying A Dates: Start: 06/26/24 Expected End: 07/03/24 Outcomes Date/Time User Outcome 07/10/24 1544 Jocelyn Carballo PT Progressing Encounter Problems (Resolved) There are no resolved problems. Session Start/Stop Time: 0830 1000 Therapy Minutes Physical Therapy PT Individual: 90 * She Vigil RN - 07/10/2024 6:15 AM EST Goals: Identify possible barriers to meeting goals/advancing plan of care: Pt working toward rehab goal Stability of the patient: Moderately Unstable - Medium risk of patient condition declining or worsening End of Shift Summary: Spinal precautions maintained. SCD boots and PUPP on. Varma cath patent draining clear yellow urine cath secure in place. 4 bed rails up per pt request. Denies pain. Bed alarm on. Call doss within reach. * Nannette Boo RD - 07/09/2024 12:55 PM EST 07/09/2024 @ 12:55 PM EST Nutrition Follow Up Note Reason for RD Intervention: Assessment Type: Follow-up Anthropometrics: Weight: 86.5 kg (190 lb 12.8 oz) Weight Method: Actual BMI (Calculated): 34.2 BMI Class: Obesity Class I IBW (lbs): 115 Current Diet and Supplements: Dietary Orders (From admission, onward) Start Ordered 06/25/24 1753 Adult diet [facility]; General; Regular Diet effective now Question Answer Comment Location [facility] Diet Type (req) General General Diet Regular 06/25/241754 History of presenting illness: Patient is a 68 y.o. female with a history of Past Medical History: Diagnosis Date Adverse effect of anesthesia several hrs after sx pt had Panic attack Anxiety Arthritis Hypertension Irregular heart beat Joint pain Lymphedema Macular degeneration Past Surgical History: Procedure Laterality Date ABLATION OF DYSRHYTHMIC FOCUS BACK SURGERY N/A s/p L2-3 decompression 09/13/[address] Markham, s/p lumbar discectomy Dr. Bales, L3-4, L4-[address] Yarbrough February 2012, subsequent L4-S1 fusion in [place] with Dr. Cagle. CARPAL TUNNEL RELEASE Right TONSILLECTOMY ADENOIDECTOMY, BILATERAL MYRINGOTOMY AND TUBES TOTAL HIP ARTHROPLASTY Left 2022 TOTAL KNEE ARTHROPLASTY Bilateral admitted 06/25/2024 with Lower extremity weakness. Food/Nutrition History: Previous Diet / Nutrition Education / Counseling: Pt reports good appetite and PO intake at home. Usually eats 2 meals per day. Recently has been trying to follow a calorie controlled diet at home (8093-0233 kcal/day). States weight has been stable at ~190 lb. No reported food allergies. 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 Reports good appetite and intake. 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 States she is content with meal offerings, though requested that daily meals range from 8465-2423, however is willing to be slightly above calories on days that browniesand cookies are served. Updated in [place]. Last BM 07/08. Skin intact with exception of back incision. Pt tested positive for COVID 07/04- on isolation precautions Nutrition-Related Lab Values: Results from last 7 days Lab Units 07/06/24 0614 SODIUM mmol/L 134 POTASSIUM mmol/L 4.1 CHLORIDE mmol/L 98 CO2 mmol/L 32 BUN mg/dL 11 CREATININE mg/dL 0.49* EGFR mL/min/1.73m2 103 CALCIUM mg/dL 9.2 BILIRUBIN TOTAL mg/dL 0.3 ALK PHOS unit/L 101 ALT unit/L 35 AST unit/L 14 GLUCOSE mg/dL 102* WBC AUTO K/mcL 4.9 No results found for: LIPASE Medications: acetaminophen, 975 mg, oral, q8h EDEN acyclovir, , Topical, TID ascorbic acid, 1,000 mg, oral, Daily bisacodyL, 10 mg, rectal, q24h cefuroxime, 250 mg, oral, BID cholecalciferol, 2,000 Units, oral, Daily clotrimazole, , Topical, BID doxepin, 100 mg, oral, Nightly DULoxetine, 60 mg, oral, Daily ferrous sulfate, 325 mg, oral, BID gabapentin, 200 mg, oral, q12h EDEN guaiFENesin, 600 mg, oral, q12h EDEN heparin (UFH), 5,000 Units, subcutaneous, q8h EDEN Lactobacillus acidoph-L.bulgar, 2 tablet, oral, TID with meals nicotine, 1 patch, transdermal, Daily pantoprazole, 40 mg, oral, q AM AC artificial tears, 2 drop, Both Eyes, TID traZODone, 75 mg, oral, Nightly zinc sulfate, 220 mg, oral, Daily CONTINUOUS: PRN medications: ALPRAZolam, aluminum-magnesium hydroxide-simethicone, bisacodyL, docusate sodium, magnesium hydroxide, oxyCODONE Food/Nutrition-Current Status: Intake Type: P.O. Appetite: Good Intake Amount (%): 50-75% Intake Assessment: Adequate Main IVF: NS Main IVF Rate (mL/hr): 75 Nutrition Focused Physical Findings: Overall Appearance: No visual findings of muscle or fat depletion Nerves and Cognition: Alert, Oriented Skin: Upper Back incision Nutrition Diagnosis: Code Type: None Identified Status: New Diagnosis: No Acute Nutrition Dx Nutrition Interventions: -Continue with regular diet. Updated preferences in [place] -Monitor adequacy of PO intake; consider offering snacks/supplements if pt consuming <65% of meals on follow up. -Follow weights, labs, I/O. Goals: Patient will consume greater than or equal to 75% meals., Maintain weight., Stooling appropriately., and Maintain skin integrity. Monitoring/Evaluation: Fluid/Beverage Intake, Food Intake, Weight, Diet Order, Gastrointestinal Profile Follow Up: Nutrition Priority Level: Low Please consult nutrition if needed sooner. RD remains available and will continue to follow. Signature: Nannette Boo RD * Belen Mcnulty, PT - 07/09/2024 12:30 PM EST [facility] Physical Therapy Treatment Note 07/09/2024 Patient: Yuly Montoya : 1955 Age: 68 y.o. Gender: female Primary Language: Tristanian Diagnosis: Lower extremity weakness Past Medical History: Diagnosis Date Adverse effect of anesthesia several hrs after sx pt had Panic attack Anxiety Arthritis Hypertension Irregular heart beat Joint pain Lymphedema Macular degeneration Past Surgical History: Procedure Laterality Date ABLATION OF DYSRHYTHMIC FOCUS BACK SURGERY N/A s/p L2-3 decompression 09/13/[address] Markham, s/p lumbar discectomy Dr. Bales, L3-4, L4-[address] Yarbrough February 2012, subsequent L4-S1 fusion in [place] with Dr. Cagle. CARPAL TUNNEL RELEASE Right TONSILLECTOMY ADENOIDECTOMY, BILATERAL MYRINGOTOMY AND TUBES TOTAL HIP ARTHROPLASTY Left 2022 TOTAL KNEE ARTHROPLASTY Bilateral Allergies: has No Known Allergies. Precautions: Medical Precautions: Fall Risk Safety Interventions: Call doss within reach, Chair alarm RUE Weight Bearing Status: Full LUE Weight Bearing Status: Full RLE Weight Bearing Status: Full LLE Weight Bearing Status: Full Orthopedic Precautions: Back Precautions NURSING RECOMMENDATIONS Bed Mobility: min A rolling, bed rails up, spinal precautions Transfers: clarisa Ambulation: none SUBJECTIVE Pt report: I think I can move my right foot a little bit Pain: Pain Assessment: 0-10 Pain Score: 6 Pain Location: Back Pain Orientation: Mid, Upper OBJECTIVE General Observation: Pt supine in bed upon arrival to session, agreeable to PT session. Procedure/Treatment: Neuromuscular Reeducation: Balance/Neuromuscular Re-Education Neuromuscular Re-Education Time Entry: 90 Pt supine in bed upon arrival to session, agreeable to PT session. PT completing passive ROM and stretching to BLEs into hip flexion, knee flexion, hip internal and external rotation, and ankle dorsiflexion and plantarflexion. All completed within pts spinal precautions. Pt noted to have trace ankle dorsiflexion on R foot, though pt with increased muscle spasms in RLE and LLE, difficulty distinguishing spasm vs volitional movement. Due to frequency of muscle spasms, clarisa used from supine in bed to wheelchair. Sitting in wheelchair completion dynamic balance exercises focusing on trunk and core stability in unsupported positions. Completion cone stacking exercise using alternating RUE and LLE to stack and unstack cones while other UE resting quietly in lab. Sitting forward away from back of wheelchair and arm rests removed. Steadying assist with intermittent partial A for posterior losses of balance throughout. No lateral losses of balance. Increased challenge finding postural stability when using LUE for exercise. Completion balance challenge exercise folding and unfolding x2 trials pillow case. Pt challenged with using BUEs to manipulate pillow case without use of arm for postural support. Taking x3 minutes per trial to fold pillow case. Needing x3 breaks per trial. Steadying assist throughout with pt reaching for lap when feeling off balance. Pt with no muscle spasms thus far, therefore setting up for slide board transfer. Pt practicing steps of removal of leg rests and arms rests as well as placement of slide board for transfer. Pt verbalizing all steps and stating when and how she needs assistance for increased independence in self directing care. Pt able to unlock leg rests. Needing assistance with removal of feet from leg rests. Pt able to remove R arm rest. Pt able to weight shift towards R side, needing assistance with lifting LLE and slide board placement. OT coming in for second assist with slide board transfer. First two slides pt steadying assist x2, moving ~1inch per trial. Pt beginning to slide forwards on board with difficulty maintaining anteriorlean position. maxAx1 and partialAx1 to finish slide board transfer safely. Max cues for forward position. maxAx1 for sit to supine. Assist x2 boosting up in bed. Donning B SCDs and PUPP boots. Bed alarm on, call doss given, all needs met. Education: Education Documentation Skin Care/Pressure Ulcer Prevention, taught by Belen Mcnulty, PT at 07/09/2024 4:05 PM. Learner: Patient Readiness: Acceptance Method: Explanation, Demonstration Response: Verbalizes Understanding, Demonstrated Understanding Fall Precautions, taught by Belen Mcnulty PT at 07/09/2024 4:05 PM. Learner: Patient Readiness: Acceptance Method: Explanation, Demonstration Response: Verbalizes Understanding, Demonstrated Understanding Precautions, taught by Belen Mcnulty, PT at 07/09/2024 4:05 PM. Learner: Patient Readiness: Acceptance Method: Explanation, Demonstration Response: Verbalizes Understanding, Demonstrated Understanding Body Mechanics, taught by Belen Mcnulty, PT at 07/09/2024 4:05 PM. Learner: Patient Readiness: Acceptance Method: Explanation, Demonstration Response: Verbalizes Understanding, Demonstrated Understanding Mobility Training, taught by Belen Mcnulty, PT at 07/09/2024 4:05 PM. Learner: Patient Readiness: Acceptance Method: Explanation, Demonstration Response: Verbalizes Understanding, Demonstrated Understanding Education Comments No comments found. ASSESSMENT PT Assessment PT Assessment Results: Decreased strength, Decreased endurance, Impaired balance, Decreased mobility, Decreased coordination, Impaired sensation, Decreased skin integrity, Orthopedic restrictions Prognosis: Fair Evaluation/Treatment Tolerance: Patient limited by pain Comments: Patient with fair tolerance to treatment session. limited by back discomfort during unsupported sitting. pt with good carryover of steps to complete slide board transfer working on ability to self guide care / assistance. Will continue to benefit from skilled physical therapy. 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 Goals Dates: Start: 06/26/24 Goal: Mod I rolling Dates: Start: 06/26/24 Expected End: 07/17/24 Goal: Partial A transfers LRAD with pt directing care Dates: Start: 06/26/24 Expected End: 07/17/24 Goal: Sit <> supine partial A, pt directing care adhering to spinal precautions Dates: Start: 06/26/24 Expected End: 07/17/24 Goal: Mod I wheelchair mobility x150' Dates: Start: 06/26/24 Expected End: 07/17/24 Goal: Pt will sit independently x15 min Dates: Start: 06/26/24 Expected End: 07/17/24 Problem: PT Short Term Goals Dates: Start: 06/26/24 Goal: Supervision rolling Dates: Start: 06/26/24 Expected End: 07/03/24 Goal: Sit <> supine max Ax1 Dates: Start: 06/26/24 Expected End: 07/03/24 Goal: Max A + partial A slideboard transfers Dates: Start: 06/26/24 Expected End: 07/03/24 Goal: Supervision wheelchair mobility x100' Dates: Start: 06/26/24 Expected End: 07/03/24 Goal: Pt will sit with UE support x5 min supervision/steadying A Dates: Start: 06/26/24 Expected End: 07/03/24 Encounter Problems (Resolved) There are no resolved problems. Session Start/Stop Time: 1230 1400 Therapy Minutes Physical Therapy PT Individual: 90 * Darline Lara, DO - 07/09/2024 12:11 PM EST Images from the original note were not included. [facility] Daily Progress Note Patient name: Yuly Montoya : 1955 SUBJECTIVE: Patient seen and examined at bedside today. No acute events overnight. Denies headaches, dizziness,shortness of breath, chest pain, nausea, constipation. Reports that she had BM after use of suppository yesterday. Varma remains in place. States that she feels fatigued today yet out of bed in wheelchair. Requested soft cervical collar for neck pain which was ordered for patient. Participating in therapies: Pt completed UB dressing with mod A for back. OBJECTIVE: Vitals: 07/08/24 0909 07/08/24 1541 07/09/24 0547 07/09/24 1030 BP: (!) 143/79 (!) 145/86 138/83 114/71 BP Location: Left arm Left arm Left arm;Upper Patient Position: Lying Sitting Sitting Pulse: 66 73 70 71 Resp: 18 16 16 16 Temp: 36.7 ??C (98.1 ??F) 36.7 ??C (98.1 ??F) 36.4 ??C (97.5 ??F) 36.3 ??C (97.4 ??F) TempSrc: Oral Oral Temporal SpO2: 94% 95% 95% 97% Weight: Physical Examination: General: Alert, in no acute cardiopulmonary distress. Mental Status: Oriented to person, place and time. Normal affect. Head: Normocephalic. Eyes: Pupils are equal, round and reactive to light. Extraocular muscles intact. Ear, Nose and Throat: Oropharynx clear, mucous membranes moist. Ears and nose without masses, lesions or deformities. Neck: Supple, Trachea midline. Respiratory: Clear to auscultation and percussion. No wheezing, rales or rhonchi. Cardiovascular: Heart sounds normal. No thrills. Regular rate and rhythm, no murmurs, rubs or gallops. Gastrointestinal: Abdomen soft, non-tender, non-distended. Normal bowel sounds. Genitourinary: +Varma catheter in place with clear yellow urine in bag Neurologic: b/l LE weakness. Decreased ssensation to b/l LE R>l and decreased sensation to abd Skin: No rashes or lesions. No petechiae or purpura. No edema. Musculoskeletal: RLE 0/5 strength. LLE 0/5 hip flexion and knee extension. LLE 1/5 left dorsiflexion and plantarflexion. CURRENT INPATIENT MEDICATIONS: Current Facility-Administered Medications: acetaminophen (TYLENOL) tablet 975 mg, 975 mg, oral, q8h [facility], Darline Lara DO, 975 mg at 07/09/24 0536 acyclovir (ZOVIRAX) 5 % ointment, , Topical, TID, Darline Lara DO, Given at 07/09/24 1041 ALPRAZolam (XANAX) tablet 0.5 mg, 0.5 mg, oral, Nightly PRN, THEODORA Lawson, 0.5 mg at 07/08/24 2132 aluminum-magnesium hydroxide-simethicone (MAALOX) 200-200-20 mg/5 mL suspension 30 mL, 30 mL, oral,q4h PRN, THEODORA Lawson ascorbic acid (VITAMIN C) tablet 1,000 mg, 1,000 mg, oral, Daily, THEODORA Pope, 1,000 mg at07/09/24 1035 bisacodyL (DULCOLAX) suppository 10 mg, 10 mg, rectal, Daily PRN, THEODORA Lawson bisacodyL (DULCOLAX) suppository 10 mg, 10 mg, rectal, q24h, Darline Lara DO, 10 mg at 07/08/24 1943 cefuroxime (CEFTIN) tablet 250 mg, 250 mg, oral, BID, Umm Wood NP, 250 mg at 07/09/24 1035 cholecalciferol (VITAMIN D-3) tablet 2,000 Units, 2,000 Units, oral, Daily, THEDOORA Pope, 2,000 Units at 07/09/24 1034 clotrimazole (LOTRIMIN) 1 % cream, , Topical, BID, Umm Wood NP, Given at 07/09/24 1041 docusate sodium (COLACE) capsule 100 mg, 100 mg, oral, BID PRN, Darline Lara DO, 100 mg at 07/06/24 1408 doxepin (SINEquan) capsule 100 mg, 100 mg, oral, Nightly, THEODORA Lawson, 100 mg at 07/08/24 2132 DULoxetine (CYMBALTA) DR capsule 60 mg, 60 mg, oral, Daily, THEODORA Lawson, 60 mg at 07/09/24 1035 ferrous sulfate tablet 325 mg, 325 mg, oral, BID, Umm Wood NP, 325 mg at 07/09/24 1035 gabapentin (NEURONTIN) capsule 200 mg, 200 mg, oral, q12h EDEN, Darline Lara DO, 200 mg at 07/09/24 1034 guaiFENesin (MUCINEX) 12 hr tablet 600 mg, 600 mg, oral, q12h EDEN, THEODORA Pope, 600 mg at 07/09/24 1036 heparin (UFH) injection 5,000 Units, 5,000 Units, subcutaneous, q8h EDEN, THEODORA Lawson, 5,000Units at 07/09/24 0537 Lactobacillus acidoph-L.ricgar (FLORANEX) tablet 2 tablet, 2 tablet, oral, TID with meals, Umm Wood, [employer], 2 tablet at 07/09/24 1036 magnesium hydroxide (MILK OF MAGNESIA) 400 mg/5 mL suspension 30 mL, 30 mL, oral, Daily PRN, THEODORA Lawson nicotine (NICODERM CQ) 7 mg/24 hr 1 patch, 1 patch, transdermal, Daily, THEODORA Pope, 1 patch at 07/09/24 1034 oxyCODONE (ROXICODONE) immediate release tablet 5 mg, 5 mg, oral, q6h PRN, Darline Lara DO,5 mg at 07/09/24 0744 pantoprazole (PROTONIX) EC tablet 40 mg, 40 mg, oral, q AM AC, Umm Kovacs NP, 40 mg at 07/09/24 0536 polyvinyl alcohol-povidone (PF) (ARTIFICIAL TEARS) 1.4-0.6 % ophthalmic solution 2 drop, 2 drop, Both Eyes, TID, Darline Lara DO, 2 drop at 07/09/24 1036 senna (SENOKOT) tablet 17.2 mg, 2 tablet, oral, Nightly, Umm Kovacs NP, 17.2 mg at 07/07/245 traZODone (DESYREL) tablet 75 mg, 75 mg, oral, Nightly, THEODORA Lawson, 75 mg at 07/08/24 2134 zinc sulfate (ZINCATE) capsule 220 mg, 220 mg, oral, Daily, THEODORA Pope, 220 mg at 07/09/24 1035 LABS: Lab Results Component Value Date WBC 4.9 07/06/2024 RBC 3.00 (L) 07/06/2024 HGB 8.8 (L) 07/06/2024 HCT 27.2 (L) 07/06/2024 MCV 91.3 07/06/2024 MCHC 32.4 07/06/2024 RDW 15.4 (H) 07/06/2024 PLT 147 07/06/2024 MPV 9.1 07/06/2024 NRBC 0.0 07/06/2024 DIFF Lab Results Component Value Date LYMPHOPCT 13.4 07/04/2024 NEUTROABS 6.38 07/04/2024 LYMPHSABS 1.13 07/04/2024 MONOABS 0.60 07/04/2024 EOSABS 0.24 07/04/2024 BASOSABS 0.02 07/04/2024 IMMGRANABS 0.07 (H) 07/04/2024 RETIC No results found for: RETIC , RETICCTPCT Lab Results Component Value Date NA 134 07/06/2024 K 4.1 07/06/2024 CL 98 07/06/2024 CO2 32 07/06/2024 GLUCOSE 102 (H) 07/06/2024 BUN 11 07/06/2024 CREATININE 0.49 (L) 07/06/2024 CALCIUM 9.2 07/06/2024 PROT 4.4 (L) 07/06/2024 ALBUMIN 2.2 (L) 07/06/2024 BILITOT 0.3 07/06/2024 AST 14 07/06/2024 ALT 35 07/06/2024 PHOS 2.7 06/15/2024 MG 1.9 06/27/2024 ALKPHOS 101 07/06/2024 EGFR 103 07/06/2024 IMPRESSION & PLAN: #Impaired mobility and self care -Secondary to thoracic myelopathy -Continue with PT, OT, and nursing care #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 -s/p T5-T8 fusion and T5-7 decompression T6-7 facetectomy and removal of mass (non malignant) by [facility] at [place] -Betadine to surgical incision daily and leave open to air -continue therapies -5 day course of Methylprednisolone 4 mg daily completed on 06/30/24 -Tizanidine 2 mg daily 06/26 held due to hypotension --> discontinued on 06/27 due to hypotension -f/u NSG after discharge #Pain management -Tylenol 975mg Q8H -Gabapentin 800 mg BID --> changed to 400mg Q8H on 06/27 due to hypotension --> decreased to 200mg BID on 07/04 due to fatigue -Oxycodone 5mg Q6H PRN #COVID-19 -patient with significant fatigue, asymptomatic and afebrile otherwise -tested positive on 07/04 -isolation precautions x10 days -Caridad following, appreciate recommendations -Acyclovir ointment TID x5 days (end date: 07/09) #Hypotension, Resolved -s/p IVF on 06/27 -medications adjusted as outlined below -likely will continue to have soft BP secondary to spinal cord injury -monitor #History of Hypertension -Hydralazine 75 mg BID discontinued 06/27 due to hypotension -Dyazide 37.5-25 mg daily discontinued 06/26 due to hypotension -Valsartan 320 mg daily discontinued 06/26 due to hypotension -Metoprolol succinate 25 mg daily discontinued on 07/04 due to soft BP and fatigue #Anxiety -Doxepin 100 mg nightly -Duloxetine 60 mg daily -Trazodone 75 mg nightly -Xanax 0.5mg QHS PRN #GERD -Famotidine 20 mg daily #Hyponatremia -sodium 124 on 06/26 --> 129 on 06/27 --> 131 on 06/28 --> 136 on 07/02 --> 138 on 07/04 -->134 on 07/06 -monitor with routine labs #Anemia -Ferrous sulfate 325mg BID #UTI -UA 07/03 positive for UTI -Urine culture 07/03 showed >100K E Coli -Cefuroxime 250mg BID x10 days (07/04/24-07/13/24) #Neurogenic bladder -Varma catheter removed on 07/02 as per Medicine team recs --> continued to retain --> Varma replaced on 07/04 #Neurogenic bowel -suppository daily at 1800 and transfer to [facility] -patient denies incontinence in psat 24 hours DVT ppx: Heparin 5000 units SQ TID * Vero Wilson OT - 07/09/2024 12:01 PM EST [facility] Occupational Therapy Treatment Note 07/09/24 Patient: Yuly Montoya : 1955 Age: 68 y.o. Gender: female Diagnosis: Lower extremity weakness Primary Rehab (Etiologic) Diagnosis: Patient Active Problem List Diagnosis Lumbar spondylosis Onychomycosis Pain in toe Sacroiliitis (CMS/HCC) Spondylolisthesis Cervical spondylosis Spinal stenosis of thoracic region Thoracic spinal stenosis Age-related macular degeneration Anxiety Atrial flutter (CMS/HCC) Obstructive sleep apnea syndrome Deep vein thrombosis (DVT) of lower extremity (CMS/HCC) History of artificial joint Hypertension Osteoarthritis of hip Peripheral venous insufficiency S/P tonsillectomy and adenoidectomy Bradycardia Thoracic myelopathy Lower extremity weakness PMH: Past Medical History: Diagnosis Date Adverse effect of anesthesia several hrs after sx pt had Panic attack Anxiety Arthritis Hypertension Irregular heart beat Joint pain Lymphedema Macular degeneration PSH: Past Surgical History: Procedure Laterality Date ABLATION OF DYSRHYTHMIC FOCUS BACK SURGERY N/A s/p L2-3 decompression 09/13/[address] Markham, s/p lumbar discectomy Dr. Bales, L3-4, L4-[address] Yarbrough February 2012, subsequent L4-S1 fusion in [place] with Dr. Cagle. CARPAL TUNNEL RELEASE Right TONSILLECTOMY ADENOIDECTOMY, BILATERAL MYRINGOTOMY AND TUBES TOTAL HIP ARTHROPLASTY Left 2022 TOTAL KNEE ARTHROPLASTY Bilateral Allergies: has No Known Allergies. Precautions: Precautions Medical Precautions: Fall Risk Safety Interventions: Call doss within reach, Chair alarm RUE Weight Bearing Status: Full LUE Weight Bearing Status: Full RLE Weight Bearing Status: Full LLE Weight Bearing Status: Full Orthopedic Precautions: Back Precautions Vitals: Pain: Pain Assessment Pain Assessment: No/denies pain Subjective: I want to try a bra Procedures/Interventions: ADLs/IADLs Self Care/Home Management (ADLs) Time Entry: 90 Upon arrival, pt supine in bed. Pt agreeable to participate in skilled OT session. Pt reporting nursing performed antifungal cream. Pt completed rolling side to side with 4 bedrails up due to momentum steadying assist. LE dressing completed mod A, pt required assistance feeding B LE through pants and underwear. This therapist fed cathter through pant leg. With HOB elevated and neighborhood planner, pt able tohike pants up from right below knees. Pt required cues to return to supine. Pt then completed rolling multiple attempts to hike pants up over buttocks. Pt required verbal and tactile cues for positioning. Clarisa to wc to complete rest of dressing and bathing tasks. Pt completed wc propulsion within room to closet to retrieve clothing. Pt required verbal cues to lock wc brakes prior to reaching outside JONATHON to retrieve clothing. Pt completed supervision with ability to retrieve items at chest level only. Pt completed wc propulsion with increased time to sink requiring multiple attempts for optimal position. Pt completed UE bathing steadying assist. Pt requesting to keith bra. Pt completed overhead mod A for thoroughness of pulling bra down back. Pt able to keith shirt steadying assist with increased time and mod/max cues for upright position to safely complete in chair. Pt used sink with 1 UE support at all times when donning shirt. Pt completed grooming and oral hygiene seated in wc. Pt reports increased fatigue after ADL reporting completing more on own today. Pt demo increased independence with UE and LE dressing. Education on safety when locking wc brakes. Pt verbalizing understanding. Pt left sitting upright in wc, chair alarm armed for pt's safety, call doss within reach. OT Assessment OT Assessment OT Assessment Results: Decreased ADL status, Decreased endurance, Decreased sensation, Visual deficit, Decreased trunk control for functional activities, Impaired tone Prognosis: Good Evaluation/Treatment Tolerance: Patient tolerated treatment well Comments: Pt demonstrated improvements with UE and LE dressing on this date. Pt required max verbalcues for technique however demonstrate increased independence. Medical Staff Made Aware: Yes Comments: Vitals OT Plan Plan Treatment Interventions: ADL retraining, Functional transfer training, UE strengthening/ROM, Endurance training, Equipment evaluation/education, Compensatory technique education, Continued evaluation OT Plan: Skilled OT OT Frequency : 5-7 days per week OT Duration of Sessions: 90 min per day OT Treatments per day: 1 time per day OT - Evaluation Status: Complete Equipment Recommended: (TBD) Barriers to Discharge: environemntal concerns, functional status, pt lives alone. 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 Dates: Start: 06/26/24 Expected End: 07/17/24 Outcomes Date/Time User Outcome 07/09/24 1159 Vero Dance, OT Progressing Goal: pt will be able to independently direct care, in order to perform toileting safely, while allowing greatest level of INDEPENDENCE (including DME use, txfer techniques, and strategies) Dates: Start: 06/26/24 Expected End: 07/17/24 Outcomes Date/Time User Outcome 07/09/24 Precious Vero Wilson, OT Progressing Goal: Pt will tolerate 3/3 meals OOB Dates: Start: 06/26/24 Expected End: 07/17/24 Outcomes Date/Time User Outcome 07/09/24 GabrielaMayte Wilson, OT Progressing Goal: Pt will perform LB dressing with partial A, use of LH ADAPTIVE EQUIPTMENT prn Dates: Start: 06/26/24 Expected End: 07/17/24 Outcomes Date/Time User Outcome 07/09/24 GabrielaMayte Wilson, OT Progressing Goal: pt will perform toileting with overall max A. Dates: Start: 06/26/24 Expected End: 07/17/24 Outcomes Date/Time User Outcome 07/09/24 Precious Wilson, OT Progressing Goal: pt will don shirt with S, sitting unsupported. Dates: Start: 06/26/24 Expected End: 07/17/24 Description: Outcomes Date/Time User Outcome 07/09/24 GabrielaMayte Wilson OT Progressing Problem: OT Short Term Goals Dates: Start: 06/26/24 Goal: Pt will perform rolling R><L with use of log roll technique, partial A, for pressure relief. Dates: Start: 06/26/24 Expected End: 07/03/24 Outcomes Date/Time User Outcome 07/09/24 GabrielaMayte Wilson, OT Adequate for Discharge Goal: Pt will tolerate sitting OOB for 1/3 meals Dates: Start: 06/26/24 Expected End: 07/03/24 Outcomes Date/Time User Outcome 07/09/24 GabrielaMayte Wilson, OT Adequate for Discharge Goal: Pt will sit at EOB for 10 minutes, with no more than partial A for balance to increase Potter with EOB ADL Dates: Start: 06/26/24 Expected End: 07/03/24 Outcomes Date/Time User Outcome 07/09/24 GabrielaMayte Wilson, OT Progressing Goal: Pt will verbalize 3 pressure relief techniques in order to reduce sophia of pressure injury Dates: Start: 06/26/24 Expected End: 07/03/24 Outcomes Date/Time User Outcome 07/09/24 1159 Vero Wilson OT Progressing Goal: Pt will perform oral hygiene w/c level, with JACINTO. Dates: Start: 06/26/24 Expected End: 07/03/24 Outcomes Date/Time User Outcome 07/09/24 1159 Vero Wilson OT Adequate for Discharge Encounter Problems (Resolved) There are no resolved problems. Education Documentation Skin Care/Pressure Ulcer Prevention, taught by Vero Wilson OT at 07/09/2024 12:00 PM. Learner: Patient Readiness: Acceptance Method: Explanation Response: Verbalizes Understanding ADL Training, taught by Vero Wilson OT at 07/09/2024 12:00 PM. Learner: Patient Readiness: Acceptance Method: Explanation Response: Verbalizes Understanding Home Exercise Program, taught by Vero Wilson OT at 07/09/2024 12:00 PM. Learner: Patient Readiness: Acceptance Method: Explanation Response: Verbalizes Understanding Precautions, taught by Vero Wilson OT at 07/09/2024 12:00 PM. Learner: Patient Readiness: Acceptance Method: Explanation Response: Verbalizes Understanding Body Mechanics, taught by Vero Wilson OT at 07/09/2024 12:00 PM. Learner: Patient Readiness: Acceptance Method: Explanation Response: Verbalizes Understanding Education Comments No comments found. Start/Stop Time OT Time Calculation OT Start Time: 0830 OT Stop Time: 1000 OT Time Calculation (min): 90 min Therapy Minutes: Occupational Therapy OT Individual: 90 * Joleen Hollingsworth - 07/09/2024 8:40 AM EST Social Work Note Integrated Hematology Nurse Educator: DX: HX of anxiety and some depressive symptoms: Met with the patient this morning at bedside to see how she has been doing. The patient was a bit emotional doing our talk this morning, but she was able to process some of her thoughts and explore them. She continues to think about her life moving forward and will she need to sell her property where she has lived for the last 20 yrs. She feels like this situation has taken so much from her and how does she prevent it from taking more. Was able to provide comforting and supportive dialogue to normalize things for her. Will keep monitoring and following. Joleen Hollingsworth MS Clinician * Umm Wood NP - 07/08/2024 11:56 AM EST Images from the original note were not included. [place] PROGRESS NOTE Date: 07/08/2024 Author: Umm Wood NP Patient ID: Yuly Montoya is a 68 y.o. female : 1955 MR#: [id number] SUBJECTIVE Subjective Feeling very well despite her COVID diagnosis Denies fever chills shortness of breath or cough Malaise and fatigue have improved She has a Varma cath she is moving her bowels use of aids She states she is eating and drinking well ROS Constitutional :no fever chills , appetite fair, sleeping well, see above HEENT: denies headaches Respiratory: denies shortness of breath, coughing or wheezing Cardiac: denies chest pain, palpitations, : No abd pain, no N/V. Genitourinary: denies any dysuria frequency urgency Musculoskeletal: No joint pain ,back pain Allergies Patient has no known allergies. Current Medications: acetaminophen, 975 mg, oral, q8h EDEN acyclovir, , Topical, TID ascorbic acid, 1,000 mg, oral, Daily bisacodyL, 10 mg, rectal, q24h cefuroxime, 250 mg, oral, BID cholecalciferol, 2,000 Units, oral, Daily clotrimazole, , Topical, BID doxepin, 100 mg, oral, Nightly DULoxetine, 60 mg, oral, Daily ferrous sulfate, 325 mg, oral, BID gabapentin, 200 mg, oral, q12h EDEN guaiFENesin, 600 mg, oral, q12h EDEN heparin (UFH), 5,000 Units, subcutaneous, q8h EDEN Lactobacillus acidoph-L.bulgar, 2 tablet, oral, TID with meals nicotine, 1 patch, transdermal, Daily pantoprazole, 40 mg, oral, q AM AC artificial tears, 2 drop, Both Eyes, TID senna, 2 tablet, oral, Nightly traZODone, 75 mg, oral, Nightly zinc sulfate, 220 mg, oral, Daily PRN medications: ALPRAZolam, aluminum-magnesium hydroxide-simethicone, bisacodyL, docusate sodium, magnesium hydroxide, oxyCODONE OBJECTIVE Vitals: 07/07/24 1000 07/07/24 1545 07/08/24 0422 07/08/24 0909 BP: (!) 147/94 121/63 (!) 143/79 BP Location: Right leg Left arm Patient Position: Sitting Sitting Lying Pulse: 70 76 66 Resp: Temp: 36.8 ??C (98.2 ??F) 36.7 ??C (98.1 ??F) 36.7 ??C (98.1 ??F) TempSrc: Oral Oral Oral SpO2: 93% 93% 94% Weight: 86.5 kg (190 lb 12.8 oz) PHYSICAL EXAM General-NAD, cognitively- intact , AAO- ??3 in no acute distress. Nontoxic-appearing Heart-RRR, Lungs-CTA Abdomen-obese S NT BS ??4, Extremities-leg edema, no calf tenderness. Neuromuscular-right lower extremity with minimal movement of her digits no sensation up to her waist Antigravity left foot activity movement Back incision clean and dry Integumentary- turgor good, skin warm dry intact, no rashes LABS HEMATOLOGY Lab Results Component Value Date WBC 4.9 07/06/2024 HGB 8.8 (L) 07/06/2024 HCT 27.2 (L) 07/06/2024 MCV 91.3 07/06/2024 PLT 147 07/06/2024 CHEMISTRY Lab Results Component Value Date GLUCOSE 102 (H) 07/06/2024 NA 134 07/06/2024 K 4.1 07/06/2024 CO2 32 07/06/2024 CL 98 07/06/2024 BUN 11 07/06/2024 CREATININE 0.49 (L) 07/06/2024 EGFR 103 07/06/2024 CALCIUM 9.2 07/06/2024 MG 1.9 06/27/2024 PHOS 2.7 06/15/2024 ANIONGAP 4 07/06/2024 Imaging: ASSESSMENT & PLAN Thoracic spinal stenosis, Hx spinal mass, s/p 2 thoracic decompression surgeries 06/11 she was transferred to [facility] S/p T5-T8 fusion and T5-7 decompression T6-7 facetectomy and removal of mass. By Dr. Hall at [facility] in [place] Biopsy- Fragments of benign bone and cartilage with focus of necrotic bone. No malignancy identified. F/u with neurosurgery after discharge That is post Medrol Dosepak Patient has left foot plantarflexion and dorsiflexion as well as improved sensation on the left lower extremity Sensation on the right lower extremity -minimal toe movement neurogenic BB gabapentin 400 3 times daily Treatment per PMR neurogenic bowel and bladder Varma cath recently DC'd due to sediment in the urine Urine/113 obtained positive for greater than 100,000 and E. coli pansensitive Currently on cefuroxime twice daily recommend treatment for 10 days due to complexity-hospitalization/Varma On bowel regimen/program UTI see above Complete treatment for complicated UTI General malaise/fatigue +COVID 07/[address] [facility] currently on zinc vitamin D NC She reports she is feeling better today. Isolation precautions x 10 days Encourage deep breathing. Incentive spirometry. Start Mucinex as she has some rhonchi that clear with deep coughing- She continues to be afebrile. No evidence hypoxia. History of cervical spondylolisthesis with central canal stenosis Soft cervical collar when up therapy Atrial flutter s/p ablation Recent bradycardia now on lower dose of BB Toprol XL 25 mg discontinue as blood pressure has been low Rate controlled in the 50-60s monitor Hypertension Recent soft BP's /Hypotension Multiple meds DC'd patient's blood pressure is now in the 120s to 140s may need to restart Therapy S/p Discontinue Toprol Triamterene hydrochlorothiazide hydralazine and Diovan DC'd Off Tizanidine hyponatremia context of diarrhea Resolved 136-134 Lymphedema acute on chronic Isiah wraps bilaterally. No pain to the extremities. Recent steroids IVF resolved Anxiety Mood stable Maintain on doxepin 100 mg nightly Duloxetine 60 mg Trazodone 75 mg nightly Anemia 10 and 31 on 06/27 now 8.8 and 27 from 9 and 28 Stable light downward trend Patient is better hydrated currently No signs of bleeding add PPI Add Feosol check guaiacs-negative thus far DVT prophylaxis with heparin DAILY CARE CHECKLIST * Lito Gamez, TRANSPLANT IMMUNOLOGIST - 07/07/2024 3:50 PM EST [facility] Physical Therapy Treatment Note 07/07/2024 Patient: Yuly Montoya : 1955 Age: 68 y.o. Gender: female Primary Language: Tristanian Diagnosis: Lower extremity weakness Past Medical History: Diagnosis Date Adverse effect of anesthesia several hrs after sx pt had Panic attack Anxiety Arthritis Hypertension Irregular heart beat Joint pain Lymphedema Macular degeneration Past Surgical History: Procedure Laterality Date ABLATION OF DYSRHYTHMIC FOCUS BACK SURGERY N/A s/p L2-3 decompression 09/13/[address] Markham, s/p lumbar discectomy Dr. Bales, L3-4, L4-[address] Yarbrough February 2012, subsequent L4-S1 fusion in [place] with Dr. Cagle. CARPAL TUNNEL RELEASE Right TONSILLECTOMY ADENOIDECTOMY, BILATERAL MYRINGOTOMY AND TUBES TOTAL HIP ARTHROPLASTY Left 2022 TOTAL KNEE ARTHROPLASTY Bilateral Allergies: has No Known Allergies. Precautions: Medical Precautions: Droplet, Contact, Fall Risk Safety Interventions: Call doss within reach RUE Weight Bearing Status: Full LUE Weight Bearing Status: Full RLE Weight Bearing Status: Full LLE Weight Bearing Status: Full Orthopedic Precautions: Back Precautions NURSING RECOMMENDATIONS Bed Mobility: min A rolling, bed rails up, spinal precautions Transfers: clarisa Ambulation: none SUBJECTIVE Pt report: I like to get up in the WC so I have some freedom to move around. OBJECTIVE General Observation: Patient in bed ready to participate. General/Functional Assessments: Procedure/Treatment: Therapeutic Activities: Therapeutic Activity Time Entry: 90 Patient in bed when approached, ready to participate. Patient demonstrating some R foot movement but inconsistent. Performed L ankle pumps. Instructed in small range crunches from semi-elevated HOB. Performed multiple sets with coaching for breathing. Elbow push ups against mattress. Rolling both directions with assist for Les. Mckenna to WC. Performed WC push ups using desk arm of WC for support - performed multiple sets to fatigue with coaching for breathing. Patient set up with call doss, alarm and phone in reach in addition to ipad for upcoming family Facetime. ASSESSMENT May have emerging R toe/ankle movement but inconsistent. Equipment: TBD Plan of Care Plan Treatment/Interventions: Functional transfer training, LE strengthening/ROM, Patient/family training, Bed mobility, Balance training, Gait training PT Plan: Skilled PT PT Frequency: 5 days per week PT Duration of Sessions: 90 min per day PT Treatments per day: 1 time per day PT Discharge Recommendations: (TBD) Equipment Recommended: TBD Problems/Goals Goals: Encounter Problems Encounter Problems (Active) Template: Physical Therapy Problem: PT Assisted Goals Dates: Start: 06/26/24 Goal: Mod I rolling Dates: Start: 06/26/24 Expected End: 07/17/24 Goal: Partial A transfers LRAD with pt directing care Dates: Start: 06/26/24 Expected End: 07/17/24 Goal: Sit <> supine partial A, pt directing care adhering to spinal precautions Dates: Start: 06/26/24 Expected End: 07/17/24 Goal: Mod I wheelchair mobility x150' Dates: Start: 06/26/24 Expected End: 07/17/24 Goal: Pt will sit independently x15 min Dates: Start: 06/26/24 Expected End: 07/17/24 Problem: PT Short Term Goals Dates: Start: 06/26/24 Goal: Supervision rolling Dates: Start: 06/26/24 Expected End: 07/03/24 Goal: Sit <> supine max Ax1 Dates: Start: 06/26/24 Expected End: 07/03/24 Goal: Max A + partial A slideboard transfers Dates: Start: 06/26/24 Expected End: 07/03/24 Goal: Supervision wheelchair mobility x100' Dates: Start: 06/26/24 Expected End: 07/03/24 Goal: Pt will sit with UE support x5 min supervision/steadying A Dates: Start: 06/26/24 Expected End: 07/03/24 Encounter Problems (Resolved) There are no resolved problems. Session Start/Stop Time: 1400 1530 Therapy Minutes Physical Therapy PT Individual: 90 * JOCELYN Banks - 07/07/2024 2:36 PM EST [facility] Occupational Therapy Treatment Note 07/07/24 Patient: Yuly Montoya : 1955 Age: 68 y.o. Gender: female Diagnosis: Lower extremity weakness Primary Rehab (Etiologic) Diagnosis: Patient Active Problem List Diagnosis Lumbar spondylosis Onychomycosis Pain in toe Sacroiliitis (CMS/HCC) Spondylolisthesis Cervical spondylosis Spinal stenosis of thoracic region Thoracic spinal stenosis Age-related macular degeneration Anxiety Atrial flutter (CMS/HCC) Obstructive sleep apnea syndrome Deep vein thrombosis (DVT) of lower extremity (CMS/HCC) History of artificial joint Hypertension Osteoarthritis of hip Peripheral venous insufficiency S/P tonsillectomy and adenoidectomy Bradycardia Thoracic myelopathy Lower extremity weakness PMH: Past Medical History: Diagnosis Date Adverse effect of anesthesia several hrs after sx pt had Panic attack Anxiety Arthritis Hypertension Irregular heart beat Joint pain Lymphedema Macular degeneration PSH: Past Surgical History: Procedure Laterality Date ABLATION OF DYSRHYTHMIC FOCUS BACK SURGERY N/A s/p L2-3 decompression 09/13/[address] Markham, s/p lumbar discectomy Dr. Bales, L3-4, L4-[address] Yarbrough February 2012, subsequent L4-S1 fusion in [place] with Dr. Cagle. CARPAL TUNNEL RELEASE Right TONSILLECTOMY ADENOIDECTOMY, BILATERAL MYRINGOTOMY AND TUBES TOTAL HIP ARTHROPLASTY Left 2022 TOTAL KNEE ARTHROPLASTY Bilateral Allergies: has No Known Allergies. Precautions: Precautions Medical Precautions: Droplet, Contact, Fall Risk Safety Interventions: Call doss within reach RUE Weight Bearing Status: Full LUE Weight Bearing Status: Full RLE Weight Bearing Status: Full LLE Weight Bearing Status: Full Orthopedic Precautions: Back Precautions Vitals: Pain: Pain Assessment Pain Assessment: No/denies pain Subjective: I am so excited about this shower. Procedures/Interventions: Pt semi supine at start of session, amenable to therapy. Vitals taken prior to session with nursing, see flowsheet. Pt on droplet and contact precuations, BANKS donned appropriate PPE. Pt hoyered to commode, some BM noted during transfer, pt completed small BM on commode. Pt wheeled to shower stall in commode, pt completed UB bathing with supervision, LB bathing with use of LH sponge with touch A,mod A for corrina area. Pt hoyered back to bed. Nicotine patch applied to R UE per nursing request. Ptcompleted UB dressing with mod A for back, LB dressed with sub A with log rolling technique. Antifungal ointment applied to groin and inner thigh during LB dressing per nursing request, redness stillnoted at this time. Pt dependent for donning socks at this time. Pt completed grooming tasks in bedwith set-up. Extra time provided for toileting on commode prior to shower. No spasms or sliding noted during shower, patient placed close to wall to block knees. Call doss and bed alarm in place at end of session. ADLs/IADLs Self Care/Home Management (ADLs) Time Entry: 90 ADL/ IADL Performed: Bathing, Oral Hygiene, Grooming, Dressing, Toileting, Shower Transfers, ToiletTransfers OT Assessment OT Assessment OT Assessment Results: Decreased ADL status, Decreased endurance, Decreased sensation, Visual deficit, Decreased trunk control for functional activities, Impaired tone Prognosis: Good Evaluation/Treatment Tolerance: Patient tolerated treatment well Comments: Pt very motivated to participate. Pt tearful throughout and reassurance given. Medical Staff Made Aware: Yes Comments: Vitals OT Plan Plan Treatment Interventions: ADL retraining, Functional transfer training, UE strengthening/ROM, Endurance training, Equipment evaluation/education, Compensatory technique education, Continued evaluation OT Plan: Skilled OT OT Frequency : 5-7 days per week OT Duration of Sessions: 90 min per day OT Treatments per day: 1 time per day OT - Evaluation Status: Complete Equipment Recommended: (TBD) Barriers to Discharge: environemntal concerns, functional status, pt lives alone. Goals: Encounter Problems Encounter Problems (Active) Template: Occupational Therapy Problem: OT Assisted Goals Dates: Start: 06/26/24 Goal: pt will improve dynamic sitting balance to S, for up to 15 minutes, while performing UB ADL. Dates: Start: 06/26/24 Expected End: 07/17/24 Goal: pt will be able to independently direct care, in order to perform toileting safely, while allowing greatest level of INDEPENDENCE (including DME use, txfer techniques, and strategies) Dates: Start: 06/26/24 Expected End: 07/17/24 Goal: Pt will tolerate 3/3 meals OOB Dates: Start: 06/26/24 Expected End: 07/17/24 Goal: Pt will perform LB dressing with partial A, use of LH ADAPTIVE EQUIPTMENT prn Dates: Start: 06/26/24 Expected End: 07/17/24 Goal: pt will perform toileting with overall max A. Dates: Start: 06/26/24 Expected End: 07/17/24 Goal: pt will don shirt with S, sitting unsupported. Dates: Start: 06/26/24 Expected End: 07/17/24 Description: Problem: OT Short Term Goals Dates: Start: 06/26/24 Goal: Pt will perform rolling R><L with use of log roll technique, partial A, for pressure relief. Dates: Start: 06/26/24 Expected End: 07/03/24 Goal: Pt will tolerate sitting OOB for 1/3 meals Dates: Start: 06/26/24 Expected End: 07/03/24 Goal: Pt will sit at EOB for 10 minutes, with no more than partial A for balance to increase Potter with EOB ADL Dates: Start: 06/26/24 Expected End: 07/03/24 Goal: Pt will verbalize 3 pressure relief techniques in order to reduce sophia of pressure injury Dates: Start: 06/26/24 Expected End: 07/03/24 Goal: Pt will perform oral hygiene w/c level, with JACINTO. Dates: Start: 06/26/24 Expected End: 07/03/24 Encounter Problems (Resolved) There are no resolved problems. Education Documentation Skin Care/Pressure Ulcer Prevention, taught by JOCELYN Banks at 07/07/2024 2:27 PM. Learner: Patient Readiness: Acceptance Method: Explanation, Demonstration Response: Verbalizes Understanding, Demonstrated Understanding ADL Training, taught by JOCELYN Banks at 07/07/2024 2:27 PM. Learner: Patient Readiness: Acceptance Method: Explanation, Demonstration Response: Verbalizes Understanding, Demonstrated Understanding Home Exercise Program, taught by JOCELYN Banks at 07/07/2024 2:27 PM. Learner: Patient Readiness: Acceptance Method: Explanation, Demonstration Response: Verbalizes Understanding, Demonstrated Understanding Precautions, taught by JOCELYN Banks at 07/07/2024 2:27 PM. Learner: Patient Readiness: Acceptance Method: Explanation, Demonstration Response: Verbalizes Understanding, Demonstrated Understanding Body Mechanics, taught by JOCELYN Banks at 07/07/2024 2:27 PM. Learner: Patient Readiness: Acceptance Method: Explanation, Demonstration Response: Verbalizes Understanding, Demonstrated Understanding Education Comments No comments found. Start/Stop Time OT Time Calculation OT Start Time: 0930 OT Stop Time: 1100 OT Time Calculation (min): 90 min Therapy Minutes: Occupational Therapy OT Individual: 90 * Umm Wood NP - 07/07/2024 11:50 AM EST Images from the original note were not included. [facility] PROGRESS NOTE Date: 07/07/2024 Author: Umm Wood NP Patient ID: Yuly Montoya is a 68 y.o. female : 1955 MR#: [id number] SUBJECTIVE Subjective Newly diagnosed with COVID she states she is feeling well today She denies any fever chills cough shortness of breath Symptoms began with malaise which she states is also improving She states she is eating and drinking well Slept well no bodyaches ROS Constitutional :no fever chills , appetite fair, sleeping well, see above HEENT: denies headaches Respiratory: denies shortness of breath, coughing or wheezing Cardiac: denies chest pain, palpitations, : No abd pain, no N/V. Genitourinary: denies any dysuria frequency urgency Musculoskeletal: No joint pain ,back pain Allergies Patient has no known allergies. Current Medications: acetaminophen, 975 mg, oral, q8h EDEN acyclovir, , Topical, TID ascorbic acid, 1,000 mg, oral, Daily bisacodyL, 10 mg, rectal, q24h cefuroxime, 250 mg, oral, BID cholecalciferol, 2,000 Units, oral, Daily clotrimazole, , Topical, BID doxepin, 100 mg, oral, Nightly DULoxetine, 60 mg, oral, Daily famotidine, 20 mg, oral, Daily ferrous sulfate, 325 mg, oral, BID gabapentin, 200 mg, oral, q12h EDEN guaiFENesin, 600 mg, oral, q12h EDEN heparin (UFH), 5,000 Units, subcutaneous, q8h EDEN nicotine, 1 patch, transdermal, Daily artificial tears, 2 drop, Both Eyes, TID traZODone, 75 mg, oral, Nightly zinc sulfate, 220 mg, oral, Daily PRN medications: ALPRAZolam, aluminum-magnesium hydroxide-simethicone, bisacodyL, docusate sodium, magnesium hydroxide, oxyCODONE OBJECTIVE Vitals: 07/06/24 1924 07/07/24 0500 07/07/24 0931 07/07/24 1000 BP: 135/74 (!) 155/82 131/71 BP Location: Left arm Left arm Patient Position: Lying Lying Pulse: 63 62 70 Resp: Temp: 36.4 ??C (97.5 ??F) 36.7 ??C (98.1 ??F) TempSrc: Oral Oral SpO2: 97% 98% 97% Weight: 86.5 kg (190 lb 12.8 oz) PHYSICAL EXAM General-NAD, cognitively- intact , AAO- ??3 in no acute distress. Nontoxic-appearing Heart-RRR, Lungs-CTA Abdomen-obese S NT BS ??4, Extremities-leg edema, no calf tenderness. Neuromuscular-right lower extremity with minimal movement of her digits no sensation up to her waist Antigravity left foot activity movement Back incision clean and dry Integumentary- turgor good, skin warm dry intact, no rashes LABS HEMATOLOGY Lab Results Component Value Date WBC 4.9 07/06/2024 HGB 8.8 (L) 07/06/2024 HCT 27.2 (L) 07/06/2024 MCV 91.3 07/06/2024 PLT 147 07/06/2024 CHEMISTRY Lab Results Component Value Date GLUCOSE 102 (H) 07/06/2024 NA 134 07/06/2024 K 4.1 07/06/2024 CO2 32 07/06/2024 CL 98 07/06/2024 BUN 11 07/06/2024 CREATININE 0.49 (L) 07/06/2024 EGFR 103 07/06/2024 CALCIUM 9.2 07/06/2024 MG 1.9 06/27/2024 PHOS 2.7 06/15/2024 ANIONGAP 4 07/06/2024 Imaging: ASSESSMENT & PLAN Thoracic spinal stenosis, Hx spinal mass, s/p 2 thoracic decompression surgeries 06/11 she was transferred to [facility] S/p T5-T8 fusion and T5-7 decompression T6-7 facetectomy and removal of mass. By Dr. Hall at [facility] in [place] Biopsy- Fragments of benign bone and cartilage with focus of necrotic bone. No malignancy identified. F/u with neurosurgery after discharge Patient has left foot plantarflexion and dorsiflexion as well as improved sensation on the left lower extremity Sensation on the right lower extremity -minimal toe movement neurogenic bowel and bladder gabapentin 800 twice daily reduced to 400 3 times daily Medrol Dosepak completed Treatment per PMR reCommend Betadine to wound open to air offload dry DSD when needed no Mepilex sutures recently removed neurogenic bowel and bladder Varma cath recently DC'd due to sediment in the urine Urine/113 obtained positive for greater than 100,000 and E. coli pansensitive Currently on cefuroxime twice daily recommend treatment for 10 days due to complexity-hospitalization/Varma On bowel regimen/program UTI see above Complete treatment for complicated UTI General malaise/fatigue +COVID 07/[address] Discussed Paxlovid patient climbed currently on zinc vitamin D NC She reports she is feeling better today. Isolation precautions x 10 days Encourage deep breathing. Incentive spirometry. Start Mucinex as she has some rhonchi that clear with deep coughing- She continues to be afebrile. No evidence hypoxia. History of cervical spondylolisthesis with central canal stenosis Soft cervical collar when up therapy Atrial flutter s/p ablation Recent bradycardia now on lower dose of BB Toprol XL 25 mg discontinue as blood pressure has been low Rate controlled in the 50-60s monitor Hypertension Recent soft BP's /Hypotension Discontinue Toprol Triamterene hydrochlorothiazide hydralazine and Diovan DC'd Off Tizanidine hyponatremia Recent diarrhea Clinically dry. Diarrhea resolved Na improved was 124 Resolved 136-134 Lymphedema acute on chronic special stockings at home. Using Isiah wraps bilaterally. No pain to the extremities. Also on prednsione with recent IVF Resolved Anxiety Mood stable Maintain on doxepin 100 mg nightly Duloxetine 60 mg Trazodone 75 mg nightly Anemia 10 and 31 on 06/27 now 8.8 and 27 from 9 and 28 Stable light downward trend Patient is better hydrated currently No signs of bleeding add PPI Add Feosol check guaiacs DVT prophylaxis with heparin DAILY CARE CHECKLIST * Raphael Hamm RN - 07/07/2024 10:05 AM EST Pt requested a supp. While she was on the commode, feeling like she had to have a BM. Provider ordered supp. For now and to hold evening dose if patient had am BM. When this nurse came to the room the patient had a small BM and felt the feeling passed and that she wanted the supp. In the evening still. This nurse cancelled the one time dose and misc. Nursing order per verbal order of Umm Shirley NP. * She Vigil RN - 07/07/2024 6:20 AM EST Problem: Cognitive: Boyer Devin Fall Risk Goal: Last Known Fall Outcome: Progressing Goal: Mobility requiring assistance of person or device Outcome: Progressing Goal: Dizziness Outcome: Progressing Goal: Medications Outcome: Progressing Goal: Mental Status/LOC/Awareness Outcome: Progressing Goal: Toileting Needs Outcome: Progressing Goal: Volume and Electrolyte Status Outcome: Progressing Goal: Behavior Outcome: Progressing Problem: Skin Integrity: Pressure Injury Actual or Risk of Goal: Will not develop new pressure injury Outcome: Progressing Goal: Skin integrity will improve Outcome: Progressing Goal: Risk for impaired skin integrity will decrease Outcome: Progressing Problem: Patient Specific Problem: Pressure Injury Actual or Risk of Goal: Patient Specific Outcome Outcome: Progressing Goals: Identify possible barriers to meeting goals/advancing plan of care: Pt working toward rehab goals Stability of the patient: Moderately Unstable - Medium risk of patient condition declining or worsening End of Shift Summary: Droplet precautions for Covid + maintained. Denies pain. Varma cath patent draining clear yellow urine to Bed side drainage bag. Cath secure in place. Air mattress. Call doss within reach. Bed alarm on. FO * Darline Lara DO - 07/06/2024 4:36 PM EST Images from the original note were not included. [facility] Daily Progress Note Patient name: Yuly Montoya : 1955 SUBJECTIVE: Patient seen and examined at bedside today. No acute events overnight. Denies headaches, dizziness,shortness of breath, chest pain, nausea, constipation. Reports that pain is controlled. States thatfatigue is improved today. OBJECTIVE: Vitals: 07/05/24 2339 07/06/24 0143 07/06/24 0800 07/06/24 1100 BP: (!) 144/77 (!) 154/86 (!) 173/92 (!) 140/71 BP Location: Left arm Left arm Left arm;Upper Patient Position: Lying Lying Sitting Pulse: 68 64 63 60 Resp: 18 16 Temp: 36.6 ??C (97.9 ??F) 36.3 ??C (97.3 ??F) TempSrc: Oral Temporal SpO2: 99% 97% 96% Weight: Physical Examination: General: Alert, in no acute cardiopulmonary distress. Mental Status: Oriented to person, place and time. Normal affect. Head: Normocephalic. Eyes: Pupils are equal, round and reactive to light. Extraocular muscles intact. Ear, Nose and Throat: Oropharynx clear, mucous membranes moist. Ears and nose without masses, lesions or deformities. Neck: Supple, Trachea midline. Respiratory: Clear to auscultation and percussion. No wheezing, rales or rhonchi. Cardiovascular: Heart sounds normal. No thrills. Regular rate and rhythm, no murmurs, rubs or gallops. Gastrointestinal: Abdomen soft, non-tender, non-distended. Normal bowel sounds. Genitourinary: +Varma catheter in place with clear yellow urine in bag Neurologic: b/l LE weakness. Decreased ssensation to b/l LE R>l and decreased sensation to abd Skin: No rashes or lesions. No petechiae or purpura. No edema. Musculoskeletal: RLE 0/5 strength. LLE 0/5 hip flexion and knee extension. LLE 1/5 left dorsiflexion and plantarflexion. CURRENT INPATIENT MEDICATIONS: Current Facility-Administered Medications: acetaminophen (TYLENOL) tablet 975 mg, 975 mg, oral, q8h Darline HARMON DO, 975 mg at 07/06/24 1408 acyclovir (ZOVIRAX) 5 % ointment, , Topical, TID, Darline Lara DO, Given at 07/06/24 1059 ALPRAZolam (XANAX) tablet 0.5 mg, 0.5 mg, oral, Nightly PRN, THEODORA Lawson, 0.5 mg at 07/05/24 213 aluminum-magnesium hydroxide-simethicone (MAALOX) 200-200-20 mg/5 mL suspension 30 mL, 30 mL, oral,q4h PRN, THEODORA Lawson ascorbic acid (VITAMIN C) tablet 1,000 mg, 1,000 mg, oral, Daily, THEODORA Pope, 1,000 mg at07/06/24 1048 bisacodyL (DULCOLAX) suppository 10 mg, 10 mg, rectal, Daily PRN, THEODORA Lawson bisacodyL (DULCOLAX) suppository 10 mg, 10 mg, rectal, q24h, Darline Lara DO, 10 mg at 07/05/24 1913 cefuroxime (CEFTIN) tablet 250 mg, 250 mg, oral, BID, Darline Lara DO, 250 mg at 07/06/24 1048 cholecalciferol (VITAMIN D-3) tablet 2,000 Units, 2,000 Units, oral, Daily, THEODORA Pope, 2,000 Units at 07/06/24 1049 clotrimazole (LOTRIMIN) 1 % cream, , Topical, BID, Umm Wood NP, Given at 07/06/24 1105 docusate sodium (COLACE) capsule 100 mg, 100 mg, oral, BID PRN, Darline Lara DO, 100 mg at 07/06/24 1408 doxepin (SINEquan) capsule 100 mg, 100 mg, oral, Nightly, THEODORA Lawson, 100 mg at 07/05/24 2132 DULoxetine (CYMBALTA) DR capsule 60 mg, 60 mg, oral, Daily, THEODORA Lawson, 60 mg at 07/06/24 1052 famotidine (PEPCID) tablet 20 mg, 20 mg, oral, Daily, THEODORA Lawson, 20 mg at 07/06/24 1048 ferrous sulfate tablet 325 mg, 325 mg, oral, BID, Umm Wood NP, 325 mg at 07/06/24 1048 gabapentin (NEURONTIN) capsule 200 mg, 200 mg, oral, q12h EDEN, Darline Lara DO, 200 mg at 07/06/24 1052 guaiFENesin (MUCINEX) 12 hr tablet 600 mg, 600 mg, oral, q12h EDEN, THEODORA Pope, 600 mg at 07/06/24 1053 heparin (UFH) injection 5,000 Units, 5,000 Units, subcutaneous, q8h EDEN, THEODORA Lawson, 5,000Units at 07/06/24 1408 magnesium hydroxide (MILK OF MAGNESIA) 400 mg/5 mL suspension 30 mL, 30 mL, oral, Daily PRN, THEODORA Lawson nicotine (NICODERM CQ) 7 mg/24 hr 1 patch, 1 patch, transdermal, Daily, THEODORA Pope, 1 patch at 07/06/24 1053 oxyCODONE (ROXICODONE) immediate release tablet 5 mg, 5 mg, oral, q6h PRN, Darline Lara DO,5 mg at 07/06/24 0143 polyvinyl alcohol-povidone (PF) (ARTIFICIAL TEARS) 1.4-0.6 % ophthalmic solution 2 drop, 2 drop, Both Eyes, q2h PRN, Darline Lara DO traZODone (DESYREL) tablet 75 mg, 75 mg, oral, Nightly, THEODORA Lawson, 75 mg at 07/05/24 2131 zinc sulfate (ZINCATE) capsule 220 mg, 220 mg, oral, Daily, THEODORA Pope, 220 mg at 07/06/24 1051 LABS: Lab Results Component Value Date WBC 4.9 07/06/2024 RBC 3.00 (L) 07/06/2024 HGB 8.8 (L) 07/06/2024 HCT 27.2 (L) 07/06/2024 MCV 91.3 07/06/2024 MCHC 32.4 07/06/2024 RDW 15.4 (H) 07/06/2024 PLT 147 07/06/2024 MPV 9.1 07/06/2024 NRBC 0.0 07/06/2024 DIFF Lab Results Component Value Date LYMPHOPCT 13.4 07/04/2024 NEUTROABS 6.38 07/04/2024 LYMPHSABS 1.13 07/04/2024 MONOABS 0.60 07/04/2024 EOSABS 0.24 07/04/2024 BASOSABS 0.02 07/04/2024 IMMGRANABS 0.07 (H) 07/04/2024 RETIC No results found for: RETIC , RETICCTPCT Lab Results Component Value Date NA 134 07/06/2024 K 4.1 07/06/2024 CL 98 07/06/2024 CO2 32 07/06/2024 GLUCOSE 102 (H) 07/06/2024 BUN 11 07/06/2024 CREATININE 0.49 (L) 07/06/2024 CALCIUM 9.2 07/06/2024 PROT 4.4 (L) 07/06/2024 ALBUMIN 2.2 (L) 07/06/2024 BILITOT 0.3 07/06/2024 AST 14 07/06/2024 ALT 35 07/06/2024 PHOS 2.7 06/15/2024 MG 1.9 06/27/2024 ALKPHOS 101 07/06/2024 EGFR 103 07/06/2024 IMPRESSION & PLAN: #Impaired mobility and self care -Secondary to thoracic myelopathy -Continue with PT, OT, and nursing care #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 -s/p T5-T8 fusion and T5-7 decompression T6-7 facetectomy and removal of mass (non malignant) by [facility] at [place] -Betadine to surgical incision daily and leave open to air -continue therapies -5 day course of Methylprednisolone 4 mg daily completed on 06/30/24 -Tizanidine 2 mg daily 06/26 held due to hypotension --> discontinued on 06/27 due to hypotension -f/u NSG after discharge #Pain management -Tylenol 975mg Q8H -Gabapentin 800 mg BID --> changed to 400mg Q8H on 06/27 due to hypotension --> decreased to 200mg BID on 07/04 due to fatigue -Oxycodone 5mg Q6H PRN #COVID-19 -patient with significant fatigue, asymptomatic and afebrile otherwise -tested positive on 07/04 -isolation precautions x10 days -Caridad following, appreciate recommendations -Acyclovir ointment TID x5 days started 07/05 #Hypotension, Resolved -s/p IVF on 06/27 -medications adjusted as outlined below -likely will continue to have soft BP secondary to spinal cord injury -monitor #History of Hypertension -Hydralazine 75 mg BID discontinued 06/27 due to hypotension -Dyazide 37.5-25 mg daily discontinued 06/26 due to hypotension -Valsartan 320 mg daily discontinued 06/26 due to hypotension -Metoprolol succinate 25 mg daily discontinued on 07/04 due to soft BP and fatigue #Anxiety -Doxepin 100 mg nightly -Duloxetine 60 mg daily -Trazodone 75 mg nightly -Xanax 0.5mg QHS PRN #GERD -Famotidine 20 mg daily #Hyponatremia -sodium 124 on 06/26 --> 129 on 06/27 --> 131 on 06/28 --> 136 on 07/02 --> 138 on 07/04 -monitor with routine labs #Anemia -Ferrous sulfate 325mg BID #UTI -UA 07/03 positive for UTI -Urine culture 07/03 showed >100K E Coli -Cefuroxime 250mg BID x7 days #Neurogenic bladder -Varma catheter removed on 07/02 as per Medicine team recs --> continued to retain --> Varma replaced on 07/04 #Neurogenic bowel -suppository daily at 1800 and transfer to [facility] --> current loose incontinent stools likely secondary to COVID and will monitor -patient denies incontinence DVT ppx: Heparin 5000 units SQ TID * JOCELYN Banks - 07/06/2024 12:12 PM EST [facility] Occupational Therapy Treatment Note 07/06/24 Patient: Yuly Montoya : 1955 Age: 68 y.o. Gender: female Diagnosis: Lower extremity weakness Primary Rehab (Etiologic) Diagnosis: Patient Active Problem List Diagnosis Lumbar spondylosis Onychomycosis Pain in toe Sacroiliitis (CMS/HCC) Spondylolisthesis Cervical spondylosis Spinal stenosis of thoracic region Thoracic spinal stenosis Age-related macular degeneration Anxiety Atrial flutter (CMS/HCC) Obstructive sleep apnea syndrome Deep vein thrombosis (DVT) of lower extremity (CMS/HCC) History of artificial joint Hypertension Osteoarthritis of hip Peripheral venous insufficiency S/P tonsillectomy and adenoidectomy Bradycardia Thoracic myelopathy Lower extremity weakness PMH: Past Medical History: Diagnosis Date Adverse effect of anesthesia several hrs after sx pt had Panic attack Anxiety Arthritis Hypertension Irregular heart beat Joint pain Lymphedema Macular degeneration PSH: Past Surgical History: Procedure Laterality Date ABLATION OF DYSRHYTHMIC FOCUS BACK SURGERY N/A s/p L2-3 decompression 09/13/[address] Markham, s/p lumbar discectomy Dr. Bales, L3-4, L4-[address] Yarbrough February 2012, subsequent L4-S1 fusion in [place] with Dr. Cagle. CARPAL TUNNEL RELEASE Right TONSILLECTOMY ADENOIDECTOMY, BILATERAL MYRINGOTOMY AND TUBES TOTAL HIP ARTHROPLASTY Left 2022 TOTAL KNEE ARTHROPLASTY Bilateral Allergies: has No Known Allergies. Precautions: Precautions Medical Precautions: Droplet, Contact, Fall Risk Safety Interventions: Call doss within reach RUE Weight Bearing Status: Full LUE Weight Bearing Status: Full RLE Weight Bearing Status: Full LLE Weight Bearing Status: Full Orthopedic Precautions: Back Precautions Vitals: BP: (!) 173/92 (Nursing aware) Heart Rate: 63 Pain: Pain Assessment Pain Score: 0 - No pain Subjective: I would love a shower tomorrow. Procedures/Interventions: Pt supine in bed at start of session, amenable to therapy. Pt on droplet contact precautions due topositive COVID result, BANKS donned appropriate PPE. Vitals taken, see above, nursing notified. Pt completed UB sponge bathing at bed level with supervision, LB bathing sub A for LE, pt able to bath some corrina area. Pt dressed UB with mod A for back, LB dressing with sub A to thread B LE and pull up pants bedside. Pt completed log rolling during LB dressing, barrier cream applied to bottom and periarea, no redness noted at this time. Pt able assist in pulling up pants when on side. Pt dependent on doffing and donning footwear. Pt completed oral hygiene and grooming at bed level with set-up. Ptparticipated in there-ex at bed level, see below. Call doss and bed alarm in place at end of session. ADLs/IADLs Self Care/Home Management (ADLs) Time Entry: 60 ADL/ IADL Performed: Bathing, Oral Hygiene, Grooming, Dressing Therapeutic Exercise Therapeutic Exercise Time Entry: 30 Therapeutic Exercise Activity 1: Pt participated in B UE ther-ex with green resistance theraband. Pt completed 10 reps, 3 sets of shoulder abduction, shoulder, flexion, and diagonals, and 1 set, 10 reps of B tricep extension, modified in bed with BANKS holding on end of theraband. Pt reported clicking sensation in R shoudler, exercises modified to prevent an injury. Pt reports having surgery on R shoulder in [facility]. OT Assessment OT Assessment OT Assessment Results: Decreased ADL status, Decreased endurance, Decreased sensation, Visual deficit, Decreased trunk control for functional activities, Impaired tone Prognosis: Good Evaluation/Treatment Tolerance: Patient tolerated treatment well Comments: Pt very motivated to participate. Pt tearful throughout and reassurance given. Medical Staff Made Aware: Yes Comments: Vitals OT Plan Plan Treatment Interventions: ADL retraining, Functional transfer training, UE strengthening/ROM, Endurance training, Equipment evaluation/education, Compensatory technique education, Continued evaluation OT Plan: Skilled OT OT Frequency : 5-7 days per week OT Duration of Sessions: 90 min per day OT Treatments per day: 1 time per day OT - Evaluation Status: Complete Equipment Recommended: (TBD) Barriers to Discharge: environemntal concerns, functional status, pt lives alone. 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 Dates: Start: 06/26/24 Expected End: 07/17/24 Goal: pt will be able to independently direct care, in order to perform toileting safely, while allowing greatest level of INDEPENDENCE (including DME use, txfer techniques, and strategies) Dates: Start: 06/26/24 Expected End: 07/17/24 Goal: Pt will tolerate 3/3 meals OOB Dates: Start: 06/26/24 Expected End: 07/17/24 Goal: Pt will perform LB dressing with partial A, use of LH ADAPTIVE EQUIPTMENT prn Dates: Start: 06/26/24 Expected End: 07/17/24 Goal: pt will perform toileting with overall max A. Dates: Start: 06/26/24 Expected End: 07/17/24 Goal: pt will don shirt with S, sitting unsupported. Dates: Start: 06/26/24 Expected End: 07/17/24 Description: Problem: OT Short Term Goals Dates: Start: 06/26/24 Goal: Pt will perform rolling R><L with use of log roll technique, partial A, for pressure relief. Dates: Start: 06/26/24 Expected End: 07/03/24 Goal: Pt will tolerate sitting OOB for 1/3 meals Dates: Start: 06/26/24 Expected End: 07/03/24 Goal: Pt will sit at EOB for 10 minutes, with no more than partial A for balance to increase Potter with EOB ADL Dates: Start: 06/26/24 Expected End: 07/03/24 Goal: Pt will verbalize 3 pressure relief techniques in order to reduce sophia of pressure injury Dates: Start: 06/26/24 Expected End: 07/03/24 Goal: Pt will perform oral hygiene w/c level, with JACINTO. Dates: Start: 06/26/24 Expected End: 07/03/24 Encounter Problems (Resolved) There are no resolved problems. Education Documentation Skin Care/Pressure Ulcer Prevention, taught by JOCELYN Banks at 07/06/2024 12:12 PM. Learner: Patient Readiness: Acceptance Method: Explanation, Demonstration Response: Verbalizes Understanding, Demonstrated Understanding ADL Training, taught by JOCELYN Banks at 07/06/2024 12:12 PM. Learner: Patient Readiness: Acceptance Method: Explanation, Demonstration Response: Verbalizes Understanding, Demonstrated Understanding Home Exercise Program, taught by JOCELYN Banks at 07/06/2024 12:12 PM. Learner: Patient Readiness: Acceptance Method: Explanation, Demonstration Response: Verbalizes Understanding, Demonstrated Understanding Precautions, taught by JOCELYN Banks at 07/06/2024 12:12 PM. Learner: Patient Readiness: Acceptance Method: Explanation, Demonstration Response: Verbalizes Understanding, Demonstrated Understanding Body Mechanics, taught by JOCELYN Banks at 07/06/2024 12:12 PM. Learner: Patient Readiness: Acceptance Method: Explanation, Demonstration Response: Verbalizes Understanding, Demonstrated Understanding Education Comments No comments found. Start/Stop Time OT Time Calculation OT Start Time: 0800 OT Stop Time: 0930 OT Time Calculation (min): 90 min Therapy Minutes: Occupational Therapy OT Individual: 90 * THEODORA Pope - 07/06/2024 11:45 AM EST Images from the original note were not included. [place] PROGRESS NOTE Date: 07/06/2024 Author: THEODORA Poep Patient ID: Yuly Montoya is a 68 y.o. female : 1955 MR#: [id number] SUBJECTIVE Subjective Patient seen. She reports she improved. She was found to have COVID. She has no chest pain or shortness of breath. No evidence of fever or chills or hypoxia. Her fatigue is also improving. ROS Constitutional :no fever chills , appetite fair, sleeping well, see above HEENT: denies headaches Respiratory: denies shortness of breath, coughing or wheezing Cardiac: denies chest pain, palpitations, : No abd pain, no N/V. Genitourinary: denies any dysuria frequency urgency Musculoskeletal: No joint pain ,back pain Allergies Patient has no known allergies. Current Medications: acetaminophen, 975 mg, oral, q8h EDEN acyclovir, , Topical, TID ascorbic acid, 1,000 mg, oral, Daily bisacodyL, 10 mg, rectal, q24h cefuroxime, 250 mg, oral, BID cholecalciferol, 2,000 Units, oral, Daily clotrimazole, , Topical, BID doxepin, 100 mg, oral, Nightly DULoxetine, 60 mg, oral, Daily famotidine, 20 mg, oral, Daily ferrous sulfate, 325 mg, oral, BID gabapentin, 200 mg, oral, q12h EDEN guaiFENesin, 600 mg, oral, q12h EDEN heparin (UFH), 5,000 Units, subcutaneous, q8h EDEN nicotine, 1 patch, transdermal, Daily traZODone, 75 mg, oral, Nightly zinc sulfate, 220 mg, oral, Daily PRN medications: ALPRAZolam, aluminum-magnesium hydroxide-simethicone, bisacodyL, docusate sodium, magnesium hydroxide, oxyCODONE, artificial tears OBJECTIVE Vitals: 07/05/24 1656 07/05/24 2339 07/06/24 0143 07/06/24 1100 BP: (!) 149/81 (!) 144/77 (!) 154/86 (!) 140/71 BP Location: Left arm Left arm;Upper Patient Position: Lying Sitting Pulse: 63 68 64 60 Resp: Temp: 36.6 ??C (97.9 ??F) 36.6 ??C (97.9 ??F) 36.3 ??C (97.3 ??F) TempSrc: Oral Temporal SpO2: 96% 99% 97% 96% Weight: PHYSICAL EXAM General-NAD, cognitively- intact , AAO- ??3 in no acute distress. Speaking full sentences. Overall looks better today compared to yesterday. Less fatigued appearing. Heart-RRR, Lungs-CTA Abdomen-S NT BS ??4, Extremities-leg edema, no calf tenderness. Neuromuscular-right lower extremity with minimal movement of her digits no sensation up to her waist Antogravitity left foot Back incision clean sand dry today Integumentary- turgor good, skin warm dry intact, no rashes LABS HEMATOLOGY Lab Results Component Value Date WBC 4.9 07/06/2024 HGB 8.8 (L) 07/06/2024 HCT 27.2 (L) 07/06/2024 MCV 91.3 07/06/2024 PLT 147 07/06/2024 CHEMISTRY Lab Results Component Value Date GLUCOSE 102 (H) 07/06/2024 NA 134 07/06/2024 K 4.1 07/06/2024 CO2 32 07/06/2024 CL 98 07/06/2024 BUN 11 07/06/2024 CREATININE 0.49 (L) 07/06/2024 EGFR 103 07/06/2024 CALCIUM 9.2 07/06/2024 MG 1.9 06/27/2024 PHOS 2.7 06/15/2024 ANIONGAP 4 07/06/2024 Imaging: ASSESSMENT & PLAN Thoracic spinal stenosis, Hx spinal mass, s/p 2 thoracic decompression surgeries 06/11 she was transferred to [facility] S/p T5-T8 fusion and T5-7 decompression T6-7 facetectomy and removal of mass. By Dr. Hall at [facility] in [place] Biopsy- Fragments of benign bone and cartilage with focus of necrotic bone. No malignancy identified. F/u with neurosurgery after discharge Patient has left foot plantarflexion and dorsiflexion as well as improved sensation on the left lower extremity Sensation on the right lower extremity -minimal toe movement neurogenic bowel and bladder gabapentin 800 twice daily reduced to 400 3 times daily Medrol Dosepak completed off tizanidine due to hypotension Treatment per PMR reCommend Betadine to wound open to air offload dry DSD when needed no Mepilex Neurogenic bowel and bladder Varma catheter. Last exchanged 06/11 + pyuria and was treated with Macrobid On bowel regimen/program UTI Repeat urine 07/02, + UTI now on cefuroxmine. General malaise/fatigue Workup positive for COVID 07/[address] Discussed Paxlovid patient would rather wait on starting medication reevaluate in the morning she may consider starting medication in the morning. She reports she is feeling better today. Discussed possible drug interactions with Paxlovid - she wants to wait on Paxlovid. She reports feeling better today. Start vitamins, zinc see vitamin D Isolation precautions x 10 days Encourage deep breathing. Incentive spirometry. Start Mucinex as she has some rhonchi that clear with deep coughing- She continues to be afebrile. No evidence hypoxia. History of cervical spondylolisthesis with central canal stenosis Atrial flutter s/p ablation Recent bradycardia now on lower dose of BB Toprol XL 25 mg discontinue as blood pressure has been low Rate controlled in the 50-60s monitor Hypertension Recent soft BP's /Hypotension Discontinue Toprol Triamterene hydrochlorothiazide hydralazine and Diovan DC'd Off Tizanidine hyponatremia Recent diarrhea Clinically dry. Diarrhea resolved Na improved was 124--> now 129 -> 131 S/p gentle ivf Resolved 136 Lymphedema acute on chronic special stockings at home. Using Isiah wraps bilaterally. No pain to the extremities. Also on prednsione with recent IVF Resolved Anxiety Mood stable Maintain on doxepin 100 mg nightly Duloxetine 60 mg Trazodone 75 mg nightly Anemia 10 and 31 on 06/27 now 9.5 and 29.5 Stable trend DVT prophylaxis with heparin DAILY CARE CHECKLIST * Belen Mcnulty, PT - 07/06/2024 9:30 AM EST [facility] Physical Therapy Treatment Note 07/06/2024 Patient: Yuly Montoya : 1955 Age: 68 y.o. Gender: female Primary Language: Tristanian Diagnosis: Lower extremity weakness Past Medical History: Diagnosis Date Adverse effect of anesthesia several hrs after sx pt had Panic attack Anxiety Arthritis Hypertension Irregular heart beat Joint pain Lymphedema Macular degeneration Past Surgical History: Procedure Laterality Date ABLATION OF DYSRHYTHMIC FOCUS BACK SURGERY N/A s/p L2-3 decompression 09/13/[address] Markham, s/p lumbar discectomy Dr. Bales, L3-4, L4-[address] Yarbrough February 2012, subsequent L4-S1 fusion in [place] with Dr. Cagle. CARPAL TUNNEL RELEASE Right TONSILLECTOMY ADENOIDECTOMY, BILATERAL MYRINGOTOMY AND TUBES TOTAL HIP ARTHROPLASTY Left 2022 TOTAL KNEE ARTHROPLASTY Bilateral Allergies: has No Known Allergies. Precautions: Medical Precautions: Fall Risk Safety Interventions: Call doss within reach, Bed alarm RUE Weight Bearing Status: Full LUE Weight Bearing Status: Full RLE Weight Bearing Status: Full LLE Weight Bearing Status: Full Orthopedic Precautions: Back Precautions NURSING RECOMMENDATIONS Bed Mobility: min A rolling, bed rails up, spinal precautions Transfers: clarisa Ambulation: none SUBJECTIVE Pt report: I did not feel steady when we tried that slide board Pain: Pain Assessment: 0-10 Pain Score: 5 - Moderate pain Pain Location: Back Pain Orientation: Upper, Mid OBJECTIVE General Observation: Pt supine in bed upon arrival to session, agreeable to PT session. Procedure/Treatment: Neuromuscular Reeducation: Balance/Neuromuscular Re-Education Neuromuscular Re-Education Time Entry: 90 Pt supine in bed upon arrival to session, agreeable to PT session. Donning bilateral LE isiah wrap. Completion supine to sitting edge of bed with maxAx1 with HOB in elevated position. Adjusting feet position in ground. Pt finding sitting balance with hands on lap. Steadying assist. Completion 2x10 reps each UE reaching exercise for sitting balance. One UE resting in lap and other UE reaching to taptargets placed within base of support in front left and right side of patient. Pt needing steadying- partial A for balance throughout. Frequent losses of balance with pt reaching with UEs to self correct. Needing to reset between all trials with both hands resting in lap. Completion 1x10 reps withhands in clasped position reaching bilaterally to target in front, left, and right. Larger challenge for patient completing dynamic balance challenge without UE support on air mattress. Needing multiple trials to hit target during each rep. Steadying - maxA for balance control. Sit to supine with maxA for trunk and LEs for supine rest break due to back fatigue. Attempting x3 trials to complete supine to sit post break with pt continuously sliding forward on air bed, maxA back to supine each trial. Airbed at max firmness level. Unable to use slide board due to inability to get sitting balance without anterior sliding. Using clarisa from bed to wheelchair. Pt practicing removal of leg rests andarm rests in chair. Needing assist with lifting LEs off of wheelchair leg rests, but otherwise ableto manage with steadying assist. Completion x10 modified crunches starting with back on wheelchair back and then pulling up to midline. Cues to use arms and head for momentum, steadying assist. Requesting to stay in chair at end of session. Chair alarm on, call doss given, all needs met. Education: Education Documentation Skin Care/Pressure Ulcer Prevention, taught by Belen Mcnulty PT at 07/06/2024 11:58 AM. Learner: Patient Readiness: Acceptance Method: Explanation, Demonstration Response: Verbalizes Understanding, Demonstrated Understanding Fall Precautions, taught by Belen Mcnulty PT at 07/06/2024 11:58 AM. Learner: Patient Readiness: Acceptance Method: Explanation, Demonstration Response: Verbalizes Understanding, Demonstrated Understanding Precautions, taught by Belen Mcnulty PT at 07/06/2024 11:58 AM. Learner: Patient Readiness: Acceptance Method: Explanation, Demonstration Response: Verbalizes Understanding, Demonstrated Understanding Body Mechanics, taught by Belen Mcnulty, PT at 07/06/2024 11:58 AM. Learner: Patient Readiness: Acceptance Method: Explanation, Demonstration Response: Verbalizes Understanding, Demonstrated Understanding Mobility Training, taught by Belen Mcnulty, PT at 07/06/2024 11:58 AM. Learner: Patient Readiness: Acceptance Method: Explanation, Demonstration Response: Verbalizes Understanding, Demonstrated Understanding Education Comments No comments found. ASSESSMENT PT Assessment PT Assessment Results: Decreased strength, Decreased endurance, Impaired balance, Decreased mobility, Decreased coordination, Impaired sensation, Decreased skin integrity, Orthopedic restrictions Prognosis: Fair Evaluation/Treatment Tolerance: Patient limited by fatigue Comments: Pt with fair tolerance to treatment session. completion sitting balance edge of bed x60 minutes with x1 supported sitting break. continuing to be challenged with static and dynamic unsupported sitting. will continue to benefit from skilled physical therapy. 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 Goals Dates: Start: 06/26/24 Goal: Mod I rolling Dates: Start: 06/26/24 Expected End: 07/17/24 Goal: Partial A transfers LRAD with pt directing care Dates: Start: 06/26/24 Expected End: 07/17/24 Goal: Sit <> supine partial A, pt directing care adhering to spinal precautions Dates: Start: 06/26/24 Expected End: 07/17/24 Goal: Mod I wheelchair mobility x150' Dates: Start: 06/26/24 Expected End: 07/17/24 Goal: Pt will sit independently x15 min Dates: Start: 06/26/24 Expected End: 07/17/24 Problem: PT Short Term Goals Dates: Start: 06/26/24 Goal: Supervision rolling Dates: Start: 06/26/24 Expected End: 07/03/24 Goal: Sit <> supine max Ax1 Dates: Start: 06/26/24 Expected End: 07/03/24 Goal: Max A + partial A slideboard transfers Dates: Start: 06/26/24 Expected End: 07/03/24 Goal: Supervision wheelchair mobility x100' Dates: Start: 06/26/24 Expected End: 07/03/24 Goal: Pt will sit with UE support x5 min supervision/steadying A Dates: Start: 06/26/24 Expected End: 07/03/24 Encounter Problems (Resolved) There are no resolved problems. Session Start/Stop Time: 929 1100 Therapy Minutes Physical Therapy PT Individual: 90 PT Co-Treatment: 30 * She Vigil RN - 07/06/2024 4:15 AM EST Problem: Cognitive: Boyer Devin Fall Risk Goal: Last Known Fall Outcome: Progressing Goal: Mobility requiring assistance of person or device Outcome: Progressing Goal: Dizziness Outcome: Progressing Goal: Medications Outcome: Progressing Goal: Mental Status/LOC/Awareness Outcome: Progressing Goal: Toileting Needs Outcome: Progressing Goal: Volume and Electrolyte Status Outcome: Progressing Goal: Communication/Sensory Outcome: Progressing Goal: Behavior Outcome: Progressing Problem: Skin Integrity: Pressure Injury Actual or Risk of Goal: Will not develop new pressure injury Outcome: Progressing Goal: Skin integrity will improve Outcome: Progressing Goal: Risk for impaired skin integrity will decrease Outcome: Progressing Problem: Activity:Pressure Injury Actual or Risk of Goal: Mobility will improve Outcome: Progressing Problem: Nutritional:Pressure Injury Actual or Risk of Goal: Nutritional status will improve Outcome: Progressing Problem: Patient Specific Problem: Pressure Injury Actual or Risk of Goal: Patient Specific Outcome Outcome: Progressing Goals: Identify possible barriers to meeting goals/advancing plan of care: Pt working toward rehab goals. Stability of the patient: Moderately Unstable - Medium risk of patient condition declining or worsening End of Shift Summary: Droplet precautions Covid + maintained. Pt c/o 6/10 back pain at 0143, med with PRN oxycodone mg, resting quietly in bed with eyes closed within 1 hour. 4 rails up per pt request. Bed alarm on. Bed locked/low. Call doss within reach. SCD and PUPP boots on. * THEODORA Pope - 07/05/2024 2:39 PM EST Images from the original note were not included. [place] PROGRESS NOTE Date: 07/05/2024 Author: THEODORA Pope Patient ID: Yuly Montoya is a 68 y.o. female : 1955 MR#: [id number] SUBJECTIVE Subjective Patient seen. She was found to have COVID she was complaining of fatigue general malaise. She feelsbetter today. She reports that she slept well. She is able to eat and drink fluids. She is moving her bowels she did have some loose stools. She has a Varma catheter in place. She was able to participate with therapy. She has no chest pain shortness of breath or cough. No fever or chills. No evidence of hypoxia. ROS Constitutional :no fever chills , appetite fair, sleeping well, see above HEENT: denies headaches Respiratory: denies shortness of breath, coughing or wheezing Cardiac: denies chest pain, palpitations, : No abd pain, no N/V. Genitourinary: denies any dysuria frequency urgency Musculoskeletal: No joint pain ,back pain Allergies Patient has no known allergies. Current Medications: acetaminophen, 975 mg, oral, q8h EDEN acyclovir, , Topical, TID ascorbic acid, 1,000 mg, oral, Daily bisacodyL, 10 mg, rectal, q24h cefuroxime, 250 mg, oral, BID cholecalciferol, 2,000 Units, oral, Daily clotrimazole, , Topical, BID doxepin, 100 mg, oral, Nightly DULoxetine, 60 mg, oral, Daily famotidine, 20 mg, oral, Daily ferrous sulfate, 325 mg, oral, BID gabapentin, 200 mg, oral, q12h EDEN heparin (UFH), 5,000 Units, subcutaneous, q8h EDEN nicotine, 1 patch, transdermal, Daily traZODone, 75 mg, oral, Nightly zinc sulfate, 220 mg, oral, Daily PRN medications: ALPRAZolam, aluminum-magnesium hydroxide-simethicone, bisacodyL, docusate sodium, magnesium hydroxide, oxyCODONE, artificial tears OBJECTIVE Vitals: 07/04/24 1717 07/05/24 0624 07/05/24 0940 07/05/24 1354 BP: (!) 157/84 136/85 113/67 137/75 BP Location: Left arm Left arm Left arm;Upper Patient Position: Lying Pulse: 64 64 67 63 Resp: 18 18 17 16 Temp: 36.6 ??C (97.8 ??F) 36.4 ??C (97.5 ??F) 36.8 ??C (98.2 ??F) TempSrc: Temporal Temporal SpO2: 100% 97% 98% Weight: PHYSICAL EXAM General-NAD, cognitively- intact , AAO- ??3 in no acute distress. Speaking full sentences. Overall looks better today compared to yesterday. Less fatigued appearing. He Heart-RRR, Lungs-CTA few rhonchi in the bases that clear with deep coughing Abdomen-S NT BS ??4, Extremities-leg edema, no calf tenderness. Neuromuscular-right lower extremity with minimal movement of her digits no sensation up to her waist Antogravitity left foot Back incision clean sand dry today Integumentary- turgor good, skin warm dry intact, no rashes LABS HEMATOLOGY Lab Results Component Value Date WBC 8.4 07/04/2024 HGB 9.1 (L) 07/04/2024 HCT 28.3 (L) 07/04/2024 MCV 92.5 07/04/2024 PLT 141 07/04/2024 CHEMISTRY Lab Results Component Value Date GLUCOSE 118 (H) 07/04/2024 NA 138 07/04/2024 K 4.3 07/04/2024 CO2 35 (H) 07/04/2024 CL 100 07/04/2024 BUN 14 07/04/2024 CREATININE 0.53 07/04/2024 EGFR 102 07/04/2024 CALCIUM 8.9 07/04/2024 MG 1.9 06/27/2024 PHOS 2.7 06/15/2024 ANIONGAP 3 07/04/2024 Imaging: ASSESSMENT & PLAN Thoracic spinal stenosis, Hx spinal mass, s/p 2 thoracic decompression surgeries 06/11 she was transferred to [facility] S/p T5-T8 fusion and T5-7 decompression T6-7 facetectomy and removal of mass. By Dr. Hall at [facility] in [place] Biopsy- Fragments of benign bone and cartilage with focus of necrotic bone. No malignancy identified. F/u with neurosurgery after discharge Patient has left foot plantarflexion and dorsiflexion as well as improved sensation on the left lower extremity Sensation on the right lower extremity -minimal toe movement neurogenic bowel and bladder Pain management with gabapentin 800 twice daily reduced to 400 3 times daily Medrol Dosepak completed off tizanidine due to hypotension Treatment per PMR reCommend Betadine to wound open to air offload dry DSD when needed no Mepilex Neurogenic bowel and bladder Varma catheter. Last exchanged 06/11 + pyuria and was treated with Macrobid On bowel regimen/program Repeat urine 07/02, + UTI now on cefuroxmine. General malaise/fatigue Workup positive for COVID 07/[address] Discussed Paxlovid patient would rather wait on starting medication reevaluate in the morning she may consider starting medication in the morning. She reports she is feeling better today. Discussed possible drug interactions with Paxlovid - she wants to wait on Paxlovid. She reports feeling better today. Start vitamins, zinc see vitamin D Isolation precautions x 10 days Encourage deep breathing. Incentive spirometry. Start Mucinex as she has some rhonchi that clear with deep coughing She continues to be afebrile. No evidence hypoxia. History of cervical spondylolisthesis with central canal stenosis Atrial flutter s/p ablation Recent bradycardia now on lower dose of BB Toprol XL 25 mg discontinue as blood pressure has been low Rate controlled in the 50-60s monitor Hypertension Recent soft BP's /Hypotension Discontinue Toprol Triamterene hydrochlorothiazide hydralazine and Diovan DC'd Off Tizanidine hyponatremia Recent diarrhea Clinically dry. Diarrhea resolved Na improved was 124--> now 129 -> 131 S/p gentle ivf Resolved 136 Lymphedema acute on chronic special stockings at home. Using Isiah wraps bilaterally. No pain to the extremities. Also on prednsione with recent IVF Resolved Anxiety Mood stable Maintain on doxepin 100 mg nightly Duloxetine 60 mg Trazodone 75 mg nightly Anemia 10 and 31 on 06/27 now 9.5 and 29.5 Stable trend DAILY CARE CHECKLIST * Ben Miller, LYSSA - 07/05/2024 12:30 PM EST [facility] Occupational Therapy Treatment Note 07/05/24 Patient: Yuly Montoya : 1955 Age: 68 y.o. Gender: female Diagnosis: Lower extremity weakness Primary Rehab (Etiologic) Diagnosis: Patient Active Problem List Diagnosis Lumbar spondylosis Onychomycosis Pain in toe Sacroiliitis (CMS/HCC) Spondylolisthesis Cervical spondylosis Spinal stenosis of thoracic region Thoracic spinal stenosis Age-related macular degeneration Anxiety Atrial flutter (CMS/HCC) Obstructive sleep apnea syndrome Deep vein thrombosis (DVT) of lower extremity (CMS/HCC) History of artificial joint Hypertension Osteoarthritis of hip Peripheral venous insufficiency S/P tonsillectomy and adenoidectomy Bradycardia Thoracic myelopathy Lower extremity weakness PMH: Past Medical History: Diagnosis Date Adverse effect of anesthesia several hrs after sx pt had Panic attack Anxiety Arthritis Hypertension Irregular heart beat Joint pain Lymphedema Macular degeneration PSH: Past Surgical History: Procedure Laterality Date ABLATION OF DYSRHYTHMIC FOCUS BACK SURGERY N/A s/p L2-3 decompression 09/13/[address] Markham, s/p lumbar discectomy Dr. Bales, L3-4, L4-[address] Yarbrough February 2012, subsequent L4-S1 fusion in [place] with Dr. Cagle. CARPAL TUNNEL RELEASE Right TONSILLECTOMY ADENOIDECTOMY, BILATERAL MYRINGOTOMY AND TUBES TOTAL HIP ARTHROPLASTY Left 2022 TOTAL KNEE ARTHROPLASTY Bilateral Allergies: has No Known Allergies. Precautions: Precautions Medical Precautions: Fall Risk Safety Interventions: Call doss within reach, Bed alarm RUE Weight Bearing Status: Full LUE Weight Bearing Status: Full RLE Weight Bearing Status: Full LLE Weight Bearing Status: Full Orthopedic Precautions: Back Precautions Subjective: hold on, I need to get my balance. Procedures/Interventions: Balance/Neuromuscular Re-Education Neuromuscular Re-Education Time Entry: 30 30 min co-treat with PT: Pt in supine upon arrival agreeable to participation. Air bed max inflated. Supine>sit EOB with max A of 1 and SBA of 1. Seated EOB pt engaged in eating lunch, while this therapist facilitated safe postioning and utilized functional tasks to target Bilateral/unilateral UE release from bed, to target trunk control and dynamic sitting balance to increased independence with self care task sitting EOB. Pt tasked with releasing B Ues from bed to place towel in shirt priorto meal, pt able to perform with increased time and multiple attempts, assuming unilateral/bilateral UE support on bed to correct LOB. Pt tasked with B UE release from bed in order to open items on tray with increased time. Pt able to cut chicken with fork and feed self several bites with assist for balance. Pt reporting decreased appetite. Pt able to tolerate sitting EOB while she ate lunch and drank coffee. Seated EOB pt then tasked with folding pillow cases to target B release from bed to challenge dynamic sitting balance. Pt progressing from sitting EOB with B UE supported> unilateral UE support>B UEs in lap>B UE release during dynamic task, assuming UE support on bed prn to correct balance. Increased time for pt to fold pillow cases. Cues for pacing and for hand placement to assist with r egaining balance. Pt able to initiate self corrections for balance loss. Pt then tasked with placing pillow cases back onto pillows, to up-grade task. Pt placed pillow cases on pillows with verbal cues for body mechanics and safe LOB corrections. Physical assistance provided from PT throughout session during LOB due to postural weakness, please refer to PT note for level of assistance provided. At end of co treatment pt remained with PT. OT Assessment OT Assessment OT Assessment Results: Decreased ADL status, Decreased endurance, Decreased sensation, Visual deficit, Decreased trunk control for functional activities, Impaired tone Prognosis: Good Evaluation/Treatment Tolerance: Patient tolerated treatment well Comments: Co treatment performed to maximize pt participation, and engage pt in occupations while sitting EOB to address trunk control and core strengthening in order to increase ind with seated ADLs, as sitting balance poses as a large barrier at this time. Pt requires two skilled therapists in order to facilitate safe engagement in occupations, while providing the just right challenge. Pt tolerated 30 min co-treat very well and remained seated entire time. Pt motivated throughout. OT Plan Plan Treatment Interventions: ADL retraining, Functional transfer training, UE strengthening/ROM, Endurance training, Equipment evaluation/education, Compensatory technique education, Continued evaluation OT Plan: Skilled OT OT Frequency : 5-7 days per week OT Duration of Sessions: 90 min per day OT Treatments per day: 1 time per day OT - Evaluation Status: Complete Equipment Recommended: (TBD) Barriers to Discharge: environemntal concerns, functional status, pt lives alone. 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 Dates: Start: 06/26/24 Expected End: 07/17/24 Goal: pt will be able to independently direct care, in order to perform toileting safely, while allowing greatest level of INDEPENDENCE (including DME use, txfer techniques, and strategies) Dates: Start: 06/26/24 Expected End: 07/17/24 Goal: Pt will tolerate 3/3 meals OOB Dates: Start: 06/26/24 Expected End: 07/17/24 Goal: Pt will perform LB dressing with partial A, use of LH ADAPTIVE EQUIPTMENT prn Dates: Start: 06/26/24 Expected End: 07/17/24 Goal: pt will perform toileting with overall max A. Dates: Start: 06/26/24 Expected End: 07/17/24 Goal: pt will don shirt with S, sitting unsupported. Dates: Start: 06/26/24 Expected End: 07/17/24 Description: Problem: OT Short Term Goals Dates: Start: 06/26/24 Goal: Pt will perform rolling R><L with use of log roll technique, partial A, for pressure relief. Dates: Start: 06/26/24 Expected End: 07/03/24 Goal: Pt will tolerate sitting OOB for 1/3 meals Dates: Start: 06/26/24 Expected End: 07/03/24 Goal: Pt will sit at EOB for 10 minutes, with no more than partial A for balance to increase Potter with EOB ADL Dates: Start: 06/26/24 Expected End: 07/03/24 Goal: Pt will verbalize 3 pressure relief techniques in order to reduce sophia of pressure injury Dates: Start: 06/26/24 Expected End: 07/03/24 Goal: Pt will perform oral hygiene w/c level, with JACINTO. Dates: Start: 06/26/24 Expected End: 07/03/24 Encounter Problems (Resolved) There are no resolved problems. Education Documentation ADL Training, taught by Ben Miller, OT at 07/05/2024 2:02 PM. Learner: Patient Readiness: Acceptance Method: Explanation, Demonstration Response: Demonstrated Understanding, Verbalizes Understanding, Needs Reinforcement Precautions, taught by Ben Miller, OT at 07/05/2024 2:02 PM. Learner: Patient Readiness: Acceptance Method: Explanation, Demonstration Response: Demonstrated Understanding, Verbalizes Understanding, Needs Reinforcement Body Mechanics, taught by Ben Miller OT at 07/05/2024 2:02 PM. Learner: Patient Readiness: Acceptance Method: Explanation, Demonstration Response: Demonstrated Understanding, Verbalizes Understanding, Needs Reinforcement Education Comments No comments found. Start/Stop Time OT Time Calculation OT Start Time: 1230 OT Stop Time: 1300 OT Time Calculation (min): 30 min Therapy Minutes: Occupational Therapy OT Co-Treatment: 30 * Belen Mcnulty, PT - 07/05/2024 12:30 PM EST [facility] Physical Therapy Treatment Note 07/05/2024 Patient: Yuly Montoya : 1955 Age: 68 y.o. Gender: female Primary Language: Tristanian Diagnosis: Lower extremity weakness Past Medical History: Diagnosis Date Adverse effect of anesthesia several hrs after sx pt had Panic attack Anxiety Arthritis Hypertension Irregular heart beat Joint pain Lymphedema Macular degeneration Past Surgical History: Procedure Laterality Date ABLATION OF DYSRHYTHMIC FOCUS BACK SURGERY N/A s/p L2-3 decompression 09/13/[address] Markham, s/p lumbar discectomy Dr. Bales, L3-4, L4-[address] Yarbrough February 2012, subsequent L4-S1 fusion in [place] with Dr. Cagle. CARPAL TUNNEL RELEASE Right TONSILLECTOMY ADENOIDECTOMY, BILATERAL MYRINGOTOMY AND TUBES TOTAL HIP ARTHROPLASTY Left 2022 TOTAL KNEE ARTHROPLASTY Bilateral Allergies: has No Known Allergies. Precautions: Medical Precautions: Fall Risk Safety Interventions: Call doss within reach, Bed alarm RUE Weight Bearing Status: Full LUE Weight Bearing Status: Full RLE Weight Bearing Status: Full LLE Weight Bearing Status: Full Orthopedic Precautions: Back Precautions NURSING RECOMMENDATIONS Bed Mobility: min A rolling, bed rails up, spinal precautions Transfers: clarisa Ambulation: none SUBJECTIVE Pt report: I am still finding my center Pain: Pain Assessment: No/denies pain OBJECTIVE General Observation: Pt in propped sidelying in bed upon arrival to session, agreeable to PT session. Procedure/Treatment: Neuromuscular Reeducation: Balance/Neuromuscular Re-Education Neuromuscular Re-Education Time Entry: 90 Pt in propped sidelying in bed upon arrival to session, agreeable to PT session. 30 minute co-treat with OT: Air bed max inflated. Completion supine to sitting edge of bed maxAx1 and SBAx1. Pt seated edge of bed eating lunch with unilateral UE support and no back support. This therapist provided postural support through guarding and assistance with losses of balance when completing dynamic movements of UE during eating targeting trunk control and dynamic sitting balance for increases in independence. Providing cues to patient for postural alignment and positioning to optimize performance. Intermittent periods of unilateral UE support on bed rail and no UE support on bedrail. Pt demonstrating reaching reactions during losses of balance, requiring partial A from this therapist to correct for. Losses of balance to left side, right side, and posteriorly. Pt completing task folding pillow cases with B hands in lap, no UE support from bed rail. This therapist providing postural and trunk guarding and assist during losses of balance. Providing cues for postural correction and for techniques to regain midline positioning upon loss of balance. Needing increased time withseveral breaks with B hand support during exercise. Pt continuing to show reaching reactions to correct for losses of balance, needing up to partial A from this therapist to correct for. 60 minutes of remaining session. OT remaining with PT to provide assistance. Completion modified crunches exercise with pt leaning posteriorly into PTs hands and then engaging head and arms in forward momentum to achieve midline sitting position. Pt tasked with achieving midline without use of UEs grabbing onto bed or bedrail, difficult for patient. X1 instance needing partial A with anterior over correction. Completion x8 reps.Increasing challenge with increasing posterior lean. Steadying to partial A throughout. Completion anterior trunk leans with patient tasked to return posteriorly to midline. Initially unable to achieve. Cue provided to use head for momentum, increased ability with cue. Continuing to need up to maxAto achieve. Pt with hands on lap. Cues to use hands for postural control without pushing through legs. Pt needing to engage triceps to push to midline during exercise. Completion x2 slide board transfers edge of bed <> wheelchair with maxAx1 and steadying assit x1. Pt leaning with partial A for trunk control and PT assisting with leg management for slide board placement. Needing max verbal cues for positioning on board to maintain anterior position. Minimal uplift from pt throughout. Assist x2 boosting back into wheelchair. Same technique and cues as previously described for wheelchair > bed. MaxAx1 and SBAx1 for sit to supine. Assist in boosting in bed. SCDs donned, PUPP boots keith ed, bed alarm on, call doss given, all needs met. Education: Education Documentation Skin Care/Pressure Ulcer Prevention, taught by Belen Mcnulty, PT at 07/05/2024 4:44 PM. Learner: Patient Readiness: Acceptance Method: Demonstration, Explanation Response: Verbalizes Understanding, Demonstrated Understanding Precautions, taught by Belen Mcnulty, PT at 07/05/2024 4:44 PM. Learner: Patient Readiness: Acceptance Method: Demonstration, Explanation Response: Verbalizes Understanding, Demonstrated Understanding Body Mechanics, taught by Belen Mcnulty, PT at 07/05/2024 4:44 PM. Learner: Patient Readiness: Acceptance Method: Demonstration, Explanation Response: Verbalizes Understanding, Demonstrated Understanding Mobility Training, taught by Belen Mcnulty, PT at 07/05/2024 4:44 PM. Learner: Patient Readiness: Acceptance Method: Demonstration, Explanation Response: Verbalizes Understanding, Demonstrated Understanding Education Comments No comments found. ASSESSMENT PT Assessment PT Assessment Results: Decreased strength, Decreased endurance, Impaired balance, Decreased mobility, Decreased coordination, Impaired sensation, Decreased skin integrity, Orthopedic restrictions Prognosis: Fair Evaluation/Treatment Tolerance: Patient limited by fatigue Comments: Pt with fair response to treatment session. Co treatment performed x30 minutes to maximize pt participation, and engage pt in occupations while sitting EOB to address trunk control and corestrengthening in order to increase indepence in sitting, as sitting balance poses as a large barrier at this time. Pt requires two skilled therapists in order to facilitate safe engagement in occupations, while providing the just right challenge. Pt needing supervision to partial A for dynamic balance exercises during session. Continuing to need mod - max cues during slide board transfers. Will continue to benefit from skilled physical therapy. 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 Goals Dates: Start: 06/26/24 Goal: Mod I rolling Dates: Start: 06/26/24 Expected End: 07/17/24 Goal: Partial A transfers LRAD with pt directing care Dates: Start: 06/26/24 Expected End: 07/17/24 Goal: Sit <> supine partial A, pt directing care adhering to spinal precautions Dates: Start: 06/26/24 Expected End: 07/17/24 Goal: Mod I wheelchair mobility x150' Dates: Start: 06/26/24 Expected End: 07/17/24 Goal: Pt will sit independently x15 min Dates: Start: 06/26/24 Expected End: 07/17/24 Problem: PT Short Term Goals Dates: Start: 06/26/24 Goal: Supervision rolling Dates: Start: 06/26/24 Expected End: 07/03/24 Goal: Sit <> supine max Ax1 Dates: Start: 06/26/24 Expected End: 07/03/24 Goal: Max A + partial A slideboard transfers Dates: Start: 06/26/24 Expected End: 07/03/24 Goal: Supervision wheelchair mobility x100' Dates: Start: 06/26/24 Expected End: 07/03/24 Goal: Pt will sit with UE support x5 min supervision/steadying A Dates: Start: 06/26/24 Expected End: 07/03/24 Encounter Problems (Resolved) There are no resolved problems. Session Start/Stop Time: 1230 1400 Therapy Minutes Physical Therapy PT Individual: 60 PT Co-Treatment: 30 * Vero Wilson OT - 07/05/2024 11:41 AM EST [facility] Occupational Therapy Treatment Note 07/05/24 Patient: Yuly Montoya : 1955 Age: 68 y.o. Gender: female Diagnosis: Lower extremity weakness Primary Rehab (Etiologic) Diagnosis: Patient Active Problem List Diagnosis Lumbar spondylosis Onychomycosis Pain in toe Sacroiliitis ([facility]/HCC) Spondylolisthesis Cervical spondylosis Spinal stenosis of thoracic region Thoracic spinal stenosis Age-related macular degeneration Anxiety Atrial flutter ([facility]/HCC) Obstructive sleep apnea syndrome Deep vein thrombosis (DVT) of lower extremity ([facility]) History of artificial joint Hypertension Osteoarthritis of hip Peripheral venous insufficiency S/P tonsillectomy and adenoidectomy Bradycardia Thoracic myelopathy Lower extremity weakness PMH: Past Medical History: Diagnosis Date Adverse effect of anesthesia several hrs after sx pt had Panic attack Anxiety Arthritis Hypertension Irregular heart beat Joint pain Lymphedema Macular degeneration PSH: Past Surgical History: Procedure Laterality Date ABLATION OF DYSRHYTHMIC FOCUS BACK SURGERY N/A s/p L2-3 decompression 09/13/[address] Markham, s/p lumbar discectomy Dr. Bales, L3-4, L4-[address] Yarbrough February 2012, subsequent L4-S1 fusion in [place] with Dr. Cagle. CARPAL TUNNEL RELEASE Right TONSILLECTOMY ADENOIDECTOMY, BILATERAL MYRINGOTOMY AND TUBES TOTAL HIP ARTHROPLASTY Left 2022 TOTAL KNEE ARTHROPLASTY Bilateral Allergies: has No Known Allergies. Precautions: Precautions Medical Precautions: Fall Risk Safety Interventions: Call doss within reach, Bed alarm RUE Weight Bearing Status: Full LUE Weight Bearing Status: Full RLE Weight Bearing Status: Full LLE Weight Bearing Status: Full Orthopedic Precautions: Back Precautions Vitals: Pain: Pain Assessment Pain Assessment: No/denies pain Subjective: I am trying my very hardest Procedures/Interventions: ADLs/IADLs Self Care/Home Management (ADLs) Time Entry: 90 Upon arrival, pt supine in bed. Pt tearful re: progress, discharge, level of assistance, insurance process. Extensive education given on current level of function, goals, plan for discharge, assistance required. Pt reassured after education. Pt completed rolling side to side mod A for leg positioning. Pt completed total body bathing mod A, requiring assistance with B LE and buttocks. Pt attempting to keith shirt sitting in bed with B UE support on bedrail however unable to pull down shirt with 1UE support however LOB sitting with inability to self correct. Pt completed LE dressing with HOB flat encouraging pt to complete on own. Pt required assistance with legs when hiking pants up. Pt attem pting however unable requiring assistance. B LE isiah wrapped. Socks donned dep. Pt with red buttocksreporting was not repositioned throughout night. Education with pt requesting to stay on side. Pillows applied for positioning. Pt left sidelying in bed, call doss within reach, bed alarm armed for pt's safety. OT Assessment OT Assessment OT Assessment Results: Decreased ADL status, Decreased endurance, Decreased sensation, Visual deficit, Decreased trunk control for functional activities, Impaired tone Prognosis: Good Evaluation/Treatment Tolerance: Patient tolerated treatment well Comments: Pt very motivated to participate. Pt tearful throughout and reassurance given. Medical Staff Made Aware: Yes Comments: vitals, redness on buttocks OT Plan Plan Treatment Interventions: ADL retraining, Functional transfer training, UE strengthening/ROM, Endurance training, Equipment evaluation/education, Compensatory technique education, Continued evaluation OT Plan: Skilled OT OT Frequency : 5-7 days per week OT Duration of Sessions: 90 min per day OT Treatments per day: 1 time per day OT - Evaluation Status: Complete Equipment Recommended: (TBD) Barriers to Discharge: environemntal concerns, functional status, pt lives alone. 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 Dates: Start: 06/26/24 Expected End: 07/17/24 Goal: pt will be able to independently direct care, in order to perform toileting safely, while allowing greatest level of INDEPENDENCE (including DME use, txfer techniques, and strategies) Dates: Start: 06/26/24 Expected End: 07/17/24 Goal: Pt will tolerate 3/3 meals OOB Dates: Start: 06/26/24 Expected End: 07/17/24 Goal: Pt will perform LB dressing with partial A, use of LH ADAPTIVE EQUIPTMENT prn Dates: Start: 06/26/24 Expected End: 07/17/24 Goal: pt will perform toileting with overall max A. Dates: Start: 06/26/24 Expected End: 07/17/24 Goal: pt will don shirt with S, sitting unsupported. Dates: Start: 06/26/24 Expected End: 07/17/24 Description: Problem: OT Short Term Goals Dates: Start: 06/26/24 Goal: Pt will perform rolling R><L with use of log roll technique, partial A, for pressure relief. Dates: Start: 06/26/24 Expected End: 07/03/24 Goal: Pt will tolerate sitting OOB for 1/3 meals Dates: Start: 06/26/24 Expected End: 07/03/24 Goal: Pt will sit at EOB for 10 minutes, with no more than partial A for balance to increase Potter with EOB ADL Dates: Start: 06/26/24 Expected End: 07/03/24 Goal: Pt will verbalize 3 pressure relief techniques in order to reduce sophia of pressure injury Dates: Start: 06/26/24 Expected End: 07/03/24 Goal: Pt will perform oral hygiene w/c level, with JACINTO. Dates: Start: 06/26/24 Expected End: 07/03/24 Encounter Problems (Resolved) There are no resolved problems. Education Documentation Skin Care/Pressure Ulcer Prevention, taught by Vero Wilson OT at 07/05/2024 11:40 AM. Learner: Patient Readiness: Acceptance Method: Explanation Response: Verbalizes Understanding ADL Training, taught by Vero Wilson OT at 07/05/2024 11:40 AM. Learner: Patient Readiness: Acceptance Method: Explanation Response: Verbalizes Understanding Home Exercise Program, taught by Vero Wilson OT at 07/05/2024 11:40 AM. Learner: Patient Readiness: Acceptance Method: Explanation Response: Verbalizes Understanding Precautions, taught by Vero Wilson OT at 07/05/2024 11:40 AM. Learner: Patient Readiness: Acceptance Method: Explanation Response: Verbalizes Understanding Body Mechanics, taught by Vero Wilson OT at 07/05/2024 11:40 AM. Learner: Patient Readiness: Acceptance Method: Explanation Response: Verbalizes Understanding Teach positioning to prevent injury, taught by Vero Wilson OT at 07/05/2024 11:40 AM. Learner: Patient Readiness: Acceptance Method: Explanation Response: Verbalizes Understanding Education Comments No comments found. Start/Stop Time OT Time Calculation OT Start Time: 844 OT Stop Time: 101 OT Time Calculation (min): 90 min Therapy Minutes: Occupational Therapy OT Individual: 90 * Darline Lara DO - 07/05/2024 8:20 AM EST Images from the original note were not included. [facility] Daily Progress Note Patient name: Yuly Montoya : 1955 SUBJECTIVE: Patient seen and examined at bedside today. No acute events overnight. Denies headaches, dizziness,shortness of breath, chest pain, nausea, constipation, and pain. Reports continued fatigue. Denies runny nose, sore throat, cough, nausea. Patient reports cold sores and asks for Abreva cream. Continues to have loose incontinent stools likely secondary to COVID. Varma in place. OBJECTIVE: Vitals: 07/04/24 0502 07/04/24 0856 07/04/24 1717 07/05/24 0624 BP: 123/75 107/64 (!) 157/84 136/85 BP Location: Left arm Left arm Left arm Left arm Patient Position: Lying Sitting Pulse: 65 64 64 64 Resp: 16 17 18 18 Temp: 36.5 ??C (97.7 ??F) 36.6 ??C (97.9 ??F) 36.6 ??C (97.8 ??F) 36.4 ??C (97.5 ??F) TempSrc: Oral Oral Temporal SpO2: 100% 100% 97% Weight: Physical Examination: General: Alert, in no acute cardiopulmonary distress. Mental Status: Oriented to person, place and time. Normal affect. Head: Normocephalic. Eyes: Pupils are equal, round and reactive to light. Extraocular muscles intact. Ear, Nose and Throat: Oropharynx clear, mucous membranes moist. Ears and nose without masses, lesions or deformities. Neck: Supple, Trachea midline. Respiratory: Clear to auscultation and percussion. No wheezing, rales or rhonchi. Cardiovascular: Heart sounds normal. No thrills. Regular rate and rhythm, no murmurs, rubs or gallops. Gastrointestinal: Abdomen soft, non-tender, non-distended. Normal bowel sounds. Genitourinary: +Varma catheter in place with clear yellow urine in bag Neurologic: b/l LE weakness. Decreased ssensation to b/l LE R>l and decreased sensation to abd Skin: No rashes or lesions. No petechiae or purpura. No edema. Musculoskeletal: RLE 0/5 strength. LLE 0/5 hip flexion and knee extension. LLE 1/5 left dorsiflexion and plantarflexion. CURRENT INPATIENT MEDICATIONS: Current Facility-Administered Medications: acetaminophen (TYLENOL) tablet 975 mg, 975 mg, oral, q8h EDEN, Darline Lara DO, 975 mg at 07/05/24 0624 ALPRAZolam (XANAX) tablet 0.5 mg, 0.5 mg, oral, Nightly PRN, THEODORA Lawson, 0.5 mg at 07/04/242032 aluminum-magnesium hydroxide-simethicone (MAALOX) 200-200-20 mg/5 mL suspension 30 mL, 30 mL, oral,q4h PRN, THEODORA Lawson ascorbic acid (VITAMIN C) tablet 1,000 mg, 1,000 mg, oral, Daily, THEODORA Pope, 1,000 mg at07/04/24 140 bisacodyL (DULCOLAX) suppository 10 mg, 10 mg, rectal, Daily PRN, THEODORA Lawson bisacodyL (DULCOLAX) suppository 10 mg, 10 mg, rectal, q24h, Darline Lara DO, 10 mg at 07/02/24 172 cefuroxime (CEFTIN) tablet 250 mg, 250 mg, oral, BID, Darline Lara DO, 250 mg at 07/04/242031 cholecalciferol (VITAMIN D-3) tablet 2,000 Units, 2,000 Units, oral, Daily, THEODORA Pope, 2,000 Units at 07/04/24 140 clotrimazole (LOTRIMIN) 1 % cream, , Topical, BID, Umm Wood NP, 1 Application at 07/04/242112 docusate sodium (COLACE) capsule 100 mg, 100 mg, oral, BID PRN, Darline Lara DO doxepin (SINEquan) capsule 100 mg, 100 mg, oral, Nightly, THEODORA Lawson, 100 mg at 07/04/242031 DULoxetine (CYMBALTA) DR capsule 60 mg, 60 mg, oral, Daily, THEODORA Lawson, 60 mg at 07/04/24 0856 famotidine (PEPCID) tablet 20 mg, 20 mg, oral, Daily, THEODORA Lawson, 20 mg at 07/04/24 0856 ferrous sulfate tablet 325 mg, 325 mg, oral, BID, Umm Wood, TAMMI, 325 mg at 07/04/242031 gabapentin (NEURONTIN) capsule 200 mg, 200 mg, oral, q12h EDEN, Darline Lara DO, 200 mg at 07/04/242031 heparin (UFH) injection 5,000 Units, 5,000 Units, subcutaneous, q8h EDEN, THEODORA Lawson, 5,000Units at 07/05/24 0625 magnesium hydroxide (MILK OF MAGNESIA) 400 mg/5 mL suspension 30 mL, 30 mL, oral, Daily PRN, THEODORA Lawson nicotine (NICODERM CQ) 7 mg/24 hr 1 patch, 1 patch, transdermal, Daily, THEODORA Pope oxyCODONE (ROXICODONE) immediate release tablet 5 mg, 5 mg, oral, q6h PRN, Darline Lara DO,5 mg at 07/04/242033 polyvinyl alcohol-povidone (PF) (ARTIFICIAL TEARS) 1.4-0.6 % ophthalmic solution 2 drop, 2 drop, Both Eyes, q2h PRN, Darline Lara DO traZODone (DESYREL) tablet 75 mg, 75 mg, oral, Nightly, THEODORA Lawson, 75 mg at 07/04/242032 zinc sulfate (ZINCATE) capsule 220 mg, 220 mg, oral, Daily, THEODORA Pope, 220 mg at 07/04/24 1409 LABS: Lab Results Component Value Date WBC 8.4 07/04/2024 RBC 3.10 (L) 07/04/2024 HGB 9.1 (L) 07/04/2024 HCT 28.3 (L) 07/04/2024 MCV 92.5 07/04/2024 MCHC 32.2 07/04/2024 RDW 16.1 (H) 07/04/2024 PLT 141 07/04/2024 MPV 9.3 07/04/2024 NRBC 0.0 07/04/2024 DIFF Lab Results Component Value Date LYMPHOPCT 13.4 07/04/2024 NEUTROABS 6.38 07/04/2024 LYMPHSABS 1.13 07/04/2024 MONOABS 0.60 07/04/2024 EOSABS 0.24 07/04/2024 BASOSABS 0.02 07/04/2024 IMMGRANABS 0.07 (H) 07/04/2024 RETIC No results found for: RETIC , RETICCTPCT Lab Results Component Value Date NA 138 07/04/2024 K 4.3 07/04/2024 CL 100 07/04/2024 CO2 35 (H) 07/04/2024 GLUCOSE 118 (H) 07/04/2024 BUN 14 07/04/2024 CREATININE 0.53 07/04/2024 CALCIUM 8.9 07/04/2024 PROT 4.6 (L) 07/04/2024 ALBUMIN 2.3 (L) 07/04/2024 BILITOT 0.5 07/04/2024 AST 18 07/04/2024 ALT 44 07/04/2024 PHOS 2.7 06/15/2024 MG 1.9 06/27/2024 ALKPHOS 98 07/04/2024 EGFR 102 07/04/2024 IMPRESSION & PLAN: #Impaired mobility and self care -Secondary to thoracic myelopathy -Continue with PT, OT, and nursing care #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 -s/p T5-T8 fusion and T5-7 decompression T6-7 facetectomy and removal of mass (non malignant) by [facility] at [place] -Betadine to surgical incision daily and leave open to air -continue therapies -5 day course of Methylprednisolone 4 mg daily completed on 06/30/24 -Tizanidine 2 mg daily 06/26 held due to hypotension --> discontinued on 06/27 due to hypotension -f/u NSG after discharge #Pain management -Tylenol 975mg Q8H -Gabapentin 800 mg BID --> changed to 400mg Q8H on 06/27 due to hypotension --> decreased to 200mg BID on 07/04 due to fatigue -Oxycodone 5mg Q6H PRN #COVID-19 -patient with significant fatigue, asymptomatic and afebrile otherwise -tested positive on 07/04 -isolation precautions x10 days -Caridad following, appreciate recommendations -Acyclovir ointment TID x5 days started 07/05 #Hypotension, Resolved -s/p IVF on 06/27 -medications adjusted as outlined below -likely will continue to have soft BP secondary to spinal cord injury -monitor #History of Hypertension -Hydralazine 75 mg BID discontinued 06/27 due to hypotension -Dyazide 37.5-25 mg daily discontinued 06/26 due to hypotension -Valsartan 320 mg daily discontinued 06/26 due to hypotension -Metoprolol succinate 25 mg daily discontinued on 07/04 due to soft BP and fatigue #Anxiety -Doxepin 100 mg nightly -Duloxetine 60 mg daily -Trazodone 75 mg nightly -Xanax 0.5mg QHS PRN #GERD -Famotidine 20 mg daily #Hyponatremia -sodium 124 on 06/26 --> 129 on 06/27 --> 131 on 06/28 --> 136 on 07/02 --> 138 on 07/04 -monitor with routine labs #Anemia -Ferrous sulfate 325mg BID #UTI -UA 07/03 positive for UTI -Urine culture 07/03 showed >100K E Coli -Cefuroxime 250mg BID x7 days #Neurogenic bladder -Varma catheter removed on 07/02 as per Medicine team recs --> continued to retain --> Varma replaced on 07/04 #Neurogenic bowel -suppository daily at 1800 and transfer to [facility] --> current loose incontinent stools likely secondary to COVID and will monitor -patient denies incontinence DVT ppx: Heparin 5000 units SQ TID * She Vigil RN - 07/05/2024 6:52 AM EST Problem: Cognitive: Rosalind Beltran Fall Risk Goal: Last Known Fall Outcome: Progressing Goal: Mobility requiring assistance of person or device Outcome: Progressing Goal: Dizziness Outcome: Progressing Goal: Medications Outcome: Progressing Goal: Mental Status/LOC/Awareness Outcome: Progressing Goal: Toileting Needs Outcome: Progressing Goal: Volume and Electrolyte Status Outcome: Progressing Goal: Communication/Sensory Outcome: Progressing Goal: Behavior Outcome: Progressing Problem: Skin Integrity: Pressure Injury Actual or Risk of Goal: Will not develop new pressure injury Outcome: Progressing Goal: Skin integrity will improve Outcome: Progressing Goal: Risk for impaired skin integrity will decrease Outcome: Progressing Problem: Activity:Pressure Injury Actual or Risk of Goal: Mobility will improve Outcome: Progressing Problem: Nutritional:Pressure Injury Actual or Risk of Goal: Nutritional status will improve Outcome: Progressing Problem: Patient Specific Problem: Pressure Injury Actual or Risk of Goal: Patient Specific Outcome Outcome: Progressing Goals: Identify possible barriers to meeting goals/advancing plan of care: Pt continues to work toward rehab goals Stability of the patient: Moderately Unstable - Medium risk of patient condition declining or worsening End of Shift Summary: Droplet precautions for Covid. Varma cath patent draining clear yellow urine.Bed alarm on. Bed locked/low. Call doss within reach. SCD and pupp boots on. * Shari Rivas RN - 07/04/2024 2:30 PM EST Team meeting: CM Met with patient at bedside to discuss recommendations from team meeting.Plan was for discharge on 07/17 home with VNA vs SNF.Patient is currently max assist with all ADLs at bed level and mobilityworking on slide board transfers is a clarisa lift with staff.Varma cath was dc patient retaining hadto place varma again.CM discussed next level of care patient understands is agreeable to wide SNF referral.Patient was very emotional and weepy stating I'm trying so hard .While speaking with patient Covid test resulted positive.Patient is in agreement with team recommendations and discharge plan had no further questions or concerns. * Vero Wilson OT - 07/04/2024 2:02 PM EST [facility] Occupational Therapy Treatment Note 07/04/24 Patient: Yuly Montoya : 1955 Age: 68 y.o. Gender: female Diagnosis: Lower extremity weakness Primary Rehab (Etiologic) Diagnosis: Patient Active Problem List Diagnosis Lumbar spondylosis Onychomycosis Pain in toe Sacroiliitis (CMS/HCC) Spondylolisthesis Cervical spondylosis Spinal stenosis of thoracic region Thoracic spinal stenosis Age-related macular degeneration Anxiety Atrial flutter (CMS/HCC) Obstructive sleep apnea syndrome Deep vein thrombosis (DVT) of lower extremity (CMS/HCC) History of artificial joint Hypertension Osteoarthritis of hip Peripheral venous insufficiency S/P tonsillectomy and adenoidectomy Bradycardia Thoracic myelopathy Lower extremity weakness PMH: Past Medical History: Diagnosis Date Adverse effect of anesthesia several hrs after sx pt had Panic attack Anxiety Arthritis Hypertension Irregular heart beat Joint pain Lymphedema Macular degeneration PSH: Past Surgical History: Procedure Laterality Date ABLATION OF DYSRHYTHMIC FOCUS BACK SURGERY N/A s/p L2-3 decompression 09/13/[address] Markham, s/p lumbar discectomy Dr. Bales, L3-4, L4-[address] Yarbrough February 2012, subsequent L4-S1 fusion in [place] with Dr. Cagle. CARPAL TUNNEL RELEASE Right TONSILLECTOMY ADENOIDECTOMY, BILATERAL MYRINGOTOMY AND TUBES TOTAL HIP ARTHROPLASTY Left 2022 TOTAL KNEE ARTHROPLASTY Bilateral Allergies: has No Known Allergies. Precautions: Precautions Medical Precautions: Fall Risk, Droplet Safety Interventions: Call doss within reach, Bed alarm RUE Weight Bearing Status: Full LUE Weight Bearing Status: Full RLE Weight Bearing Status: Full LLE Weight Bearing Status: Full Orthopedic Precautions: Back Precautions Vitals: Pain: Pain Assessment Pain Assessment: No/denies pain Subjective: I am just so tired today Procedures/Interventions: Upon arrival, pt tearful. Education and reassurance given to pt re: discharge, level of assistance,new diagnosis of COVID. Pt reporting increased fatigue and requesting to stay in bed. Pt completed oral hygiene supervision, verbal cues for lateral lean to L side. Offered to reposition with pt declining at this time. Encouragement to ring call doss despite new diagnosis of covid. Pt verbalizing understanding. Call doss within reach, bed alarm armed for pt's safety, all bed rails up per pt request. ADLs/IADLs Self Care/Home Management (ADLs) Time Entry: 20 OT Assessment OT Assessment OT Assessment Results: Decreased ADL status, Decreased endurance, Decreased sensation, Visual deficit, Decreased trunk control for functional activities, Impaired tone Prognosis: Good Evaluation/Treatment Tolerance: Patient limited by fatigue Comments: Pt with new diagnosis of covid with increased fatigue Medical Staff Made Aware: Yes Comments: covid OT Plan Plan Treatment Interventions: ADL retraining, Functional transfer training, UE strengthening/ROM, Endurance training, Equipment evaluation/education, Compensatory technique education, Continued evaluation OT Plan: Skilled OT OT Frequency : 5-7 days per week OT Duration of Sessions: 90 min per day OT Treatments per day: 1 time per day OT - Evaluation Status: Complete Equipment Recommended: (TBD) Barriers to Discharge: environemntal concerns, functional status, pt lives alone. Goals: Encounter Problems Encounter Problems (Active) Template: Occupational Therapy Problem: OT Assisted Goals Dates: Start: 06/26/24 Goal: pt will improve dynamic sitting balance to S, for up to 15 minutes, while performing UB ADL. Dates: Start: 06/26/24 Expected End: 07/17/24 Goal: pt will be able to independently direct care, in order to perform toileting safely, while allowing greatest level of INDEPENDENCE (including DME use, txfer techniques, and strategies) Dates: Start: 06/26/24 Expected End: 07/17/24 Goal: Pt will tolerate 3/3 meals OOB Dates: Start: 06/26/24 Expected End: 07/17/24 Goal: Pt will perform LB dressing with partial A, use of LH ADAPTIVE EQUIPTMENT prn Dates: Start: 06/26/24 Expected End: 07/17/24 Goal: pt will perform toileting with overall max A. Dates: Start: 06/26/24 Expected End: 07/17/24 Goal: pt will don shirt with S, sitting unsupported. Dates: Start: 06/26/24 Expected End: 07/17/24 Description: Problem: OT Short Term Goals Dates: Start: 06/26/24 Goal: Pt will perform rolling R><L with use of log roll technique, partial A, for pressure relief. Dates: Start: 06/26/24 Expected End: 07/03/24 Goal: Pt will tolerate sitting OOB for 1/3 meals Dates: Start: 06/26/24 Expected End: 07/03/24 Goal: Pt will sit at EOB for 10 minutes, with no more than partial A for balance to increase Potter with EOB ADL Dates: Start: 06/26/24 Expected End: 07/03/24 Goal: Pt will verbalize 3 pressure relief techniques in order to reduce sophia of pressure injury Dates: Start: 06/26/24 Expected End: 07/03/24 Goal: Pt will perform oral hygiene w/c level, with JACINTO. Dates: Start: 06/26/24 Expected End: 07/03/24 Encounter Problems (Resolved) There are no resolved problems. Education Documentation Skin Care/Pressure Ulcer Prevention, taught by Vero Wilson OT at 07/04/2024 2:35 PM. Learner: Patient Readiness: Acceptance Method: Explanation Response: Verbalizes Understanding ADL Training, taught by Vero Wilson OT at 07/04/2024 2:35 PM. Learner: Patient Readiness: Acceptance Method: Explanation Response: Verbalizes Understanding Precautions, taught by Vero Wilson OT at 07/04/2024 2:35 PM. Learner: Patient Readiness: Acceptance Method: Explanation Response: Verbalizes Understanding Education Comments No comments found. Start/Stop Time OT Time Calculation OT Start Time: 1230 OT Stop Time: 1250 OT Time Calculation (min): 20 min Therapy Minutes: Occupational Therapy OT Individual: 20 * Vero Wilson OT - 07/04/2024 2:01 PM EST Yuly Montoya was unable to complete her planned Occupational Therapy session with Vero Wilson OT on 07/04/2024 due to illness. Next treatment attempt will be Tomorrow. * THEODORA Pope - 07/04/2024 1:45 PM EST Images from the original note were not included. [facility] PROGRESS NOTE Date: 07/04/2024 Author: THEODORA Pope Patient ID: Yuly Montoya is a 68 y.o. female : 1955 MR#: [id number] SUBJECTIVE Subjective Patient seen. She reports that she feels extremely fatigued today. She does not feel well. Otherwise she has no headaches no visual disturbances. She denies any chest pain shortness of breath or URI symptoms. She reports that she slept well last night. She was recently found to have a urinary tractinfection and currently is on antibiotics. Otherwise afebrile. She has no respiratory symptoms. Shefeels rundown. She is a hard time completing her physical therapy as a result. No recent new medications. ROS Constitutional :no fever chills , appetite fair, sleeping well, see above HEENT: denies headaches Respiratory: denies shortness of breath, coughing or wheezing Cardiac: denies chest pain, palpitations, : No abd pain, no N/V. Genitourinary: denies any dysuria frequency urgency Musculoskeletal: No joint pain ,back pain Allergies Patient has no known allergies. Current Medications: acetaminophen, 975 mg, oral, q8h EDEN ascorbic acid, 1,000 mg, oral, Daily bisacodyL, 10 mg, rectal, q24h cefuroxime, 250 mg, oral, BID cholecalciferol, 2,000 Units, oral, Daily clotrimazole, , Topical, BID doxepin, 100 mg, oral, Nightly DULoxetine, 60 mg, oral, Daily famotidine, 20 mg, oral, Daily ferrous sulfate, 325 mg, oral, BID gabapentin, 200 mg, oral, q12h EDEN heparin (UFH), 5,000 Units, subcutaneous, q8h EDEN [START ON 07/05/2024] nicotine, 1 patch, transdermal, Daily traZODone, 75 mg, oral, Nightly zinc sulfate, 220 mg, oral, Daily PRN medications: ALPRAZolam, aluminum-magnesium hydroxide-simethicone, bisacodyL, docusate sodium, magnesium hydroxide, oxyCODONE, artificial tears OBJECTIVE Vitals: 07/03/24 0730 07/03/24 1544 07/04/24 0502 07/04/24 0856 BP: (!) 153/84 139/84 123/75 107/64 BP Location: Left arm Left arm Patient Position: Lying Lying Pulse: 73 75 65 64 Resp: 18 16 16 Temp: 37.8 ??C (100 ??F) 37.6 ??C (99.7 ??F) 36.5 ??C (97.7 ??F) TempSrc: Oral Oral Oral SpO2: 98% 99% Weight: PHYSICAL EXAM General-NAD, cognitively- intact , AAO- ??3 , appears stated age, appears comfortable Heart-RRR, Lungs-CTA B no adventitious breath sounds. Abdomen-S NT BS ??4, Extremities-leg edema, no calf tenderness. Neuromuscular-right lower extremity with minimal movement of her digits no sensation up to her waist Antogravitity left foot Back incision clean sand dry today,no serous dischargeopen to air Integumentary- turgor good, skin warm dry intact, no rashes LABS HEMATOLOGY Lab Results Component Value Date WBC 8.4 07/04/2024 HGB 9.1 (L) 07/04/2024 HCT 28.3 (L) 07/04/2024 MCV 92.5 07/04/2024 PLT 141 07/04/2024 CHEMISTRY Lab Results Component Value Date GLUCOSE 118 (H) 07/04/2024 NA 138 07/04/2024 K 4.3 07/04/2024 CO2 35 (H) 07/04/2024 CL 100 07/04/2024 BUN 14 07/04/2024 CREATININE 0.53 07/04/2024 EGFR 102 07/04/2024 CALCIUM 8.9 07/04/2024 MG 1.9 06/27/2024 PHOS 2.7 06/15/2024 ANIONGAP 3 07/04/2024 Imaging: ASSESSMENT & PLAN Thoracic spinal stenosis, Hx spinal mass, s/p 2 thoracic decompression surgeries 06/11 she was transferred to [facility] S/p T5-T8 fusion and T5-7 decompression T6-7 facetectomy and removal of mass. By Dr. Hall at [facility] in [place] Biopsy- Fragments of benign bone and cartilage with focus of necrotic bone. No malignancy identified. F/u with neurosurgery after discharge Patient has left foot plantarflexion and dorsiflexion as well as improved sensation on the left lower extremity Sensation on the right lower extremity -minimal toe movement neurogenic bowel and bladder Pain management with gabapentin 800 twice daily reduced to 400 3 times daily Medrol Dosepak completed off tizanidine due to hypotension Treatment per PMR reCommend Betadine to wound open to air offload dry DSD when needed no Mepilex Neurogenic bowel and bladder Varma catheter. Last exchanged 06/11 + pyuria and was treated with Macrobid On bowel regimen/program Repeat urine 07/02, + UTI now on cefuroxmine. General malaise/fatigue Workup positive for COVID Isolation precaution in place Discussed Paxlovid patient would rather wait on starting medication reevaluate in the morning she may consider starting medication in the morning. Discussed possible drug interactions with Paxlovid Start vitamins, zinc see vitamin D Isolation precautions Monitor history of cervical spondylolisthesis with central canal stenosis Atrial flutter s/p ablation Recent bradycardia now on lower dose of BB Toprol XL 25 mg discontinue as blood pressure has been low Rate controlled in the 50-60s monitor Hypertension Recent soft BP's /Hypotension Discontinue Toprol Triamterene hydrochlorothiazide hydralazine and Diovan DC'd Off Tizanidine hyponatremia Recent diarrhea Clinically dry. Diarrhea resolved Na improved was 124--> now 129 -> 131 S/p gentle ivf Resolved 136 Lymphedema acute on chronic special stockings at home. Using Isiah wraps bilaterally. No pain to the extremities. Also on prednsione with recent IVF Resolved Anxiety Mood stable Maintain on doxepin 100 mg nightly Duloxetine 60 mg Trazodone 75 mg nightly Anemia 10 and 31 on 06/27 now 9.5 and 29.5 Stable trend DAILY CARE CHECKLIST * Darline Lara, DO - 07/04/2024 11:15 AM EST Images from the original note were not included. [facility] Daily Progress Note Patient name: Yuly Montoya : 1955 SUBJECTIVE: Patient seen and examined at bedside today. No acute events overnight. Reports sleeping well last evening. Denies headaches, shortness of breath, chest pain, nausea, constipation, and pain today. Continued to retain urine. Had large incontinent BM last evening and again this morning. Patient reports feeling foggy, lightheaded, and fatigued today. Denies fevers, chills, and abdominal pain. Denies runny nose, sore throat, or cough. Treating UTI currently. TEAM CONFERENCE: I was present and participated in team meeting today. I agree with team conferenceplan as documented in alternate note today. Please refer to team conference note for further details. OBJECTIVE: Vitals: 07/03/24 0730 07/03/24 1544 07/04/24 0502 07/04/24 0856 BP: (!) 153/84 139/84 123/75 107/64 BP Location: Left arm Left arm Patient Position: Lying Lying Pulse: 73 75 65 64 Resp: 18 16 16 Temp: 37.8 ??C (100 ??F) 37.6 ??C (99.7 ??F) 36.5 ??C (97.7 ??F) TempSrc: Oral Oral Oral SpO2: 98% 99% Weight: Physical Examination: General: Alert, in no acute cardiopulmonary distress. Mental Status: Oriented to person, place and time. Normal affect. Head: Normocephalic. Eyes: Pupils are equal, round and reactive to light. Extraocular muscles intact. Ear, Nose and Throat: Oropharynx clear, mucous membranes moist. Ears and nose without masses, lesions or deformities. Neck: Supple, Trachea midline. Respiratory: Clear to auscultation and percussion. No wheezing, rales or rhonchi. Cardiovascular: Heart sounds normal. No thrills. Regular rate and rhythm, no murmurs, rubs or gallops. Gastrointestinal: Abdomen soft, non-tender, non-distended. Normal bowel sounds. Genitourinary: +Varma catheter in place with clear yellow urine in bag. Neurologic: b/l LE weakness. Decreased ssensation to b/l LE R>l and decreased sensation to abd Skin: No rashes or lesions. No petechiae or purpura. No edema. Musculoskeletal: RLE 0/5 strength. LLE 0/5 hip flexion and knee extension. LLE 1/5 left dorsiflexion and plantarflexion. CURRENT INPATIENT MEDICATIONS: Current Facility-Administered Medications: acetaminophen (TYLENOL) tablet 975 mg, 975 mg, oral, q8h Darline HARMON DO, 975 mg at 07/04/24 0504 ALPRAZolam (XANAX) tablet 0.5 mg, 0.5 mg, oral, Nightly PRN, THEODORA Lawson, 0.5 mg at 07/03/242112 aluminum-magnesium hydroxide-simethicone (MAALOX) 200-200-20 mg/5 mL suspension 30 mL, 30 mL, oral,q4h PRN, THEODORA Lawson bisacodyL (DULCOLAX) suppository 10 mg, 10 mg, rectal, Daily PRN, THEODORA Lawson bisacodyL (DULCOLAX) suppository 10 mg, 10 mg, rectal, q24h, Darline Lara DO, 10 mg at 07/02/24 1727 cefuroxime (CEFTIN) tablet 250 mg, 250 mg, oral, BID, Darline Lara DO clotrimazole (LOTRIMIN) 1 % cream, , Topical, BID, Umm Wood NP, Given at 07/03/242115 docusate sodium (COLACE) capsule 100 mg, 100 mg, oral, BID PRN, Darline Lara DO doxepin (SINEquan) capsule 100 mg, 100 mg, oral, Nightly, THEODORA Lawson, 100 mg at 07/03/242115 DULoxetine (CYMBALTA) DR capsule 60 mg, 60 mg, oral, Daily, THEODORA Lawson, 60 mg at 07/04/24 0856 famotidine (PEPCID) tablet 20 mg, 20 mg, oral, Daily, THEODORA Lawson, 20 mg at 07/04/24 0856 ferrous sulfate tablet 325 mg, 325 mg, oral, BID, Umm Wood NP, 325 mg at 07/04/24 0856 gabapentin (NEURONTIN) capsule 200 mg, 200 mg, oral, q12h EDEN, Darline Lara DO heparin (UFH) injection 5,000 Units, 5,000 Units, subcutaneous, q8h EDEN, THEODORA Lawson, 5,000Units at 07/04/24 0504 magnesium hydroxide (MILK OF MAGNESIA) 400 mg/5 mL suspension 30 mL, 30 mL, oral, Daily PRN, THEODORA Lawson oxyCODONE (ROXICODONE) immediate release tablet 5 mg, 5 mg, oral, q6h PRN, Darline Lara DO,5 mg at 07/03/242114 polyvinyl alcohol-povidone (PF) (ARTIFICIAL TEARS) 1.4-0.6 % ophthalmic solution 2 drop, 2 drop, Both Eyes, q2h PRN, Darline Lara DO traZODone (DESYREL) tablet 75 mg, 75 mg, oral, Nightly, THEODORA Lawson, 75 mg at 07/03/242113 LABS: Lab Results Component Value Date WBC 8.4 07/04/2024 RBC 3.10 (L) 07/04/2024 HGB 9.1 (L) 07/04/2024 HCT 28.3 (L) 07/04/2024 MCV 92.5 07/04/2024 MCHC 32.2 07/04/2024 RDW 16.1 (H) 07/04/2024 PLT 141 07/04/2024 MPV 9.3 07/04/2024 NRBC 0.0 07/04/2024 DIFF Lab Results Component Value Date LYMPHOPCT 13.4 07/04/2024 NEUTROABS 6.38 07/04/2024 LYMPHSABS 1.13 07/04/2024 MONOABS 0.60 07/04/2024 EOSABS 0.24 07/04/2024 BASOSABS 0.02 07/04/2024 IMMGRANABS 0.07 (H) 07/04/2024 RETIC No results found for: RETIC , RETICCTPCT Lab Results Component Value Date NA 138 07/04/2024 K 4.3 07/04/2024 CL 100 07/04/2024 CO2 35 (H) 07/04/2024 GLUCOSE 118 (H) 07/04/2024 BUN 14 07/04/2024 CREATININE 0.53 07/04/2024 CALCIUM 8.9 07/04/2024 PROT 4.6 (L) 07/04/2024 ALBUMIN 2.3 (L) 07/04/2024 BILITOT 0.5 07/04/2024 AST 18 07/04/2024 ALT 44 07/04/2024 PHOS 2.7 06/15/2024 MG 1.9 06/27/2024 ALKPHOS 98 07/04/2024 EGFR 102 07/04/2024 IMPRESSION & PLAN: #Impaired mobility and self care -Secondary to thoracic myelopathy -Continue with PT, OT, and nursing care #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 -s/p T5-T8 fusion and T5-7 decompression T6-7 facetectomy and removal of mass (non malignant) by [facility] [place] -Betadine to surgical incision daily and leave open to air -continue therapies -5 day course of Methylprednisolone 4 mg daily completed on 06/30/24 -Tizanidine 2 mg daily 06/26 held due to hypotension --> discontinued on 06/27 due to hypotension -f/u NSG after discharge #Pain management -Tylenol 975mg Q8H -Gabapentin 800 mg BID --> changed to 400mg Q8H on 06/27 due to hypotension --> decreased to 200mg BID on 07/04 due to fatigue -Oxycodone 5mg Q6H PRN #Hypotension, Resolved -s/p IVF on 06/27 -medications adjusted as outlined below -likely will continue to have soft BP secondary to spinal cord injury -monitor #History of Hypertension -Hydralazine 75 mg BID discontinued 06/27 due to hypotension -Dyazide 37.5-25 mg daily discontinued 06/26 due to hypotension -Valsartan 320 mg daily discontinued 06/26 due to hypotension -Metoprolol succinate 25 mg daily discontinued on 07/04 due to soft BP and fatigue #Anxiety -Doxepin 100 mg nightly -Duloxetine 60 mg daily -Trazodone 75 mg nightly -Xanax 0.5mg QHS PRN #GERD -Famotidine 20 mg daily #Hyponatremia -sodium 124 on 06/26 --> 129 on 06/27 --> 131 on 06/28 --> 136 on 07/02 --> 138 on 07/04 -monitor with routine labs #Anemia -Ferrous sulfate 325mg BID #UTI -UA 07/03 positive for UTI -Urine culture 07/03 showed >100K E Coli -Cefuroxime 250mg BID continued #Neurogenic bladder -Varma catheter removed on 07/02 as per Medicine team recs --> continued to retain --> Varma replaced on 07/04 #Neurogenic bowel -suppository daily at 1800 and transfer to commode -patient denies incontinence DVT ppx: Heparin 5000 units SQ TID * Belen Mcnulty, PT - 07/04/2024 8:15 AM EST [facility] Physical Therapy Treatment Note 07/04/2024 Patient: Yuly Montoya : 1955 Age: 68 y.o. Gender: female Primary Language: Tristanian Diagnosis: Lower extremity weakness Past Medical History: Diagnosis Date Adverse effect of anesthesia several hrs after sx pt had Panic attack Anxiety Arthritis Hypertension Irregular heart beat Joint pain Lymphedema Macular degeneration Past Surgical History: Procedure Laterality Date ABLATION OF DYSRHYTHMIC FOCUS BACK SURGERY N/A s/p L2-3 decompression 09/13/[address] Markham, s/p lumbar discectomy Dr. Bales, L3-4, L4-[address] Yarbrough February 2012, subsequent L4-S1 fusion in [place] with Dr. Cagle. CARPAL TUNNEL RELEASE Right TONSILLECTOMY ADENOIDECTOMY, BILATERAL MYRINGOTOMY AND TUBES TOTAL HIP ARTHROPLASTY Left 2022 TOTAL KNEE ARTHROPLASTY Bilateral Allergies: has No Known Allergies. Precautions: Medical Precautions: Fall Risk Safety Interventions: Call doss within reach, Chair alarm RUE Weight Bearing Status: Full LUE Weight Bearing Status: Full RLE Weight Bearing Status: Full LLE Weight Bearing Status: Full Orthopedic Precautions: Back Precautions NURSING RECOMMENDATIONS Bed Mobility: min A rolling, bed rails up, spinal precautions Transfers: clarisa Ambulation: none SUBJECTIVE Pt report: I just feel lost Pain: Pain Assessment: No/denies pain OBJECTIVE General Observation: Pt supine in bed upon arrival to session, agreeable to PT session. Vitals: Sitting in wheelchair beginning of session: BP: 107/64 HR: 68 O2: 98 Sitting in wheelchair feeling woozy : BP: 108/62 HR: 67 O2: 100 Procedure/Treatment: Neuromuscular Reeducation: Balance/Neuromuscular Re-Education Neuromuscular Re-Education Time Entry: 90 Pt supine in bed upon arrival to session, agreeable to PT session. [place] SCDs and PUPP boots. Assist in donning shirt in supine with HOB elevated. In supine completing rolling to L and R sides within precautions to don pants. Donning BLE isiah wraps. maxA for supine to sitting edge of bed. Needing partial A for sitting balance with BUE support on air mattress. Assist with lateral lean and position ing of slide board. maxAx1 and partial Ax1. Needing max cues for anterior trunk lean during slide board transfer. Supervision wheelchair mobility down to therapy gym. Pt able to remove arm rest and able to unlock leg rests. Assisting with leg movement off of leg rests. Completion slide board transfer maxAx2 onto mat table, pt beginning to slide forward on board, second pt assisting from behind. Great difficulty staying forward. Completion sitting balance exercise with hands in lap, partial A. Pt stating she was starting to feel woozy and lost . maxAx2 slide board transfer from mat table towheelchair, taking vital, defer to above. Dependent wheelchair mobility back to room. Clarisa back tobed. SCDs donned, PUPP boots on, RN and provider aware of pts vitals and woozy feeling. Bed alarm on, call doss given, all needs meet, requesting 4th bed rail up. Education: Education Documentation Skin Care/Pressure Ulcer Prevention, taught by Belen Mcnulty PT at 07/04/2024 12:02 PM. Learner: Patient Readiness: Acceptance Method: Explanation, Demonstration Response: Verbalizes Understanding, Demonstrated Understanding Fall Precautions, taught by Belen Mcnulty, PT at 07/04/2024 12:02 PM. Learner: Patient Readiness: Acceptance Method: Explanation, Demonstration Response: Verbalizes Understanding, Demonstrated Understanding Precautions, taught by Belen Mcnulty PT at 07/04/2024 12:02 PM. Learner: Patient Readiness: Acceptance Method: Explanation, Demonstration Response: Verbalizes Understanding, Demonstrated Understanding Body Mechanics, taught by Belen Mcnulty PT at 07/04/2024 12:02 PM. Learner: Patient Readiness: Acceptance Method: Explanation, Demonstration Response: Verbalizes Understanding, Demonstrated Understanding Mobility Training, taught by Belen Mcnulty PT at 07/04/2024 12:02 PM. Learner: Patient Readiness: Acceptance Method: Explanation, Demonstration Response: Verbalizes Understanding, Demonstrated Understanding Education Comments No comments found. ASSESSMENT PT Assessment PT Assessment Results: Decreased strength, Decreased endurance, Impaired balance, Decreased mobility, Decreased coordination, Impaired sensation, Decreased skin integrity, Orthopedic restrictions Prognosis: Fair Evaluation/Treatment Tolerance: Patient limited by fatigue Comments: Pt with increased fatigue and instability in sitting position during session today. Needing increased assist during slide board transfers. Will continue to benefit from skilled physical therapy. Equipment: TBD Plan of Care Plan Treatment/Interventions: Functional transfer training, LE strengthening/ROM, Patient/family training, Bed mobility, Balance training, Gait training PT Plan: Skilled PT PT Frequency: 5 days per week PT Duration of Sessions: 90 min per day PT Treatments per day: 1 time per day PT Discharge Recommendations: (TBD) Equipment Recommended: TBD Problems/Goals Goals: Encounter Problems Encounter Problems (Active) Template: Physical Therapy Problem: PT Assisted Goals Dates: Start: 06/26/24 Goal: Mod I rolling Dates: Start: 06/26/24 Expected End: 07/17/24 Goal: Partial A transfers LRAD with pt directing care Dates: Start: 06/26/24 Expected End: 07/17/24 Goal: Sit <> supine partial A, pt directing care adhering to spinal precautions Dates: Start: 06/26/24 Expected End: 07/17/24 Goal: Mod I wheelchair mobility x150' Dates: Start: 06/26/24 Expected End: 07/17/24 Goal: Pt will sit independently x15 min Dates: Start: 06/26/24 Expected End: 07/17/24 Problem: PT Short Term Goals Dates: Start: 06/26/24 Goal: Supervision rolling Dates: Start: 06/26/24 Expected End: 07/03/24 Goal: Sit <> supine max Ax1 Dates: Start: 06/26/24 Expected End: 07/03/24 Goal: Max A + partial A slideboard transfers Dates: Start: 06/26/24 Expected End: 07/03/24 Goal: Supervision wheelchair mobility x100' Dates: Start: 06/26/24 Expected End: 07/03/24 Goal: Pt will sit with UE support x5 min supervision/steadying A Dates: Start: 06/26/24 Expected End: 07/03/24 Encounter Problems (Resolved) There are no resolved problems. Session Start/Stop Time: 815 0245 Therapy Minutes Physical Therapy PT Individual: 90 * Vero Wilson, OT - 07/03/2024 1:23 PM EST [facility] Occupational Therapy Treatment Note 07/03/24 Patient: Yuly Montoya : 1955 Age: 68 y.o. Gender: female Diagnosis: Lower extremity weakness Primary Rehab (Etiologic) Diagnosis: Patient Active Problem List Diagnosis Lumbar spondylosis Onychomycosis Pain in toe Sacroiliitis (CMS/HCC) Spondylolisthesis Cervical spondylosis Spinal stenosis of thoracic region Thoracic spinal stenosis Age-related macular degeneration Anxiety Atrial flutter (CMS/HCC) Obstructive sleep apnea syndrome Deep vein thrombosis (DVT) of lower extremity (CMS/HCC) History of artificial joint Hypertension Osteoarthritis of hip Peripheral venous insufficiency S/P tonsillectomy and adenoidectomy Bradycardia Thoracic myelopathy Lower extremity weakness PMH: Past Medical History: Diagnosis Date Adverse effect of anesthesia several hrs after sx pt had Panic attack Anxiety Arthritis Hypertension Irregular heart beat Joint pain Lymphedema Macular degeneration PSH: Past Surgical History: Procedure Laterality Date ABLATION OF DYSRHYTHMIC FOCUS BACK SURGERY N/A s/p L2-3 decompression 09/13/[address] Markham, s/p lumbar discectomy Dr. Bales, L3-4, L4-[address] Yarbrough February 2012, subsequent L4-S1 fusion in [place] with Dr. Cagle. CARPAL TUNNEL RELEASE Right TONSILLECTOMY ADENOIDECTOMY, BILATERAL MYRINGOTOMY AND TUBES TOTAL HIP ARTHROPLASTY Left 2022 TOTAL KNEE ARTHROPLASTY Bilateral Allergies: has No Known Allergies. Precautions: Precautions Medical Precautions: Fall Risk Safety Interventions: Call doss within reach, Chair alarm RUE Weight Bearing Status: Full LUE Weight Bearing Status: Full RLE Weight Bearing Status: Full LLE Weight Bearing Status: Full Orthopedic Precautions: Back Precautions Vitals: Pain: Pain Assessment Pain Assessment: 0-10 Pain Score: 5 - Moderate pain Subjective: I am having a rough day Procedures/Interventions: ADLs/IADLs Self Care/Home Management (ADLs) Time Entry: 90 Upon arrival, pt supine in bed tearful. Pt verbalizing fear of the unknown, discharge disposition, plan and progress. Education and reassurance given with positive effect. Pt reporting having to be straight catheterized at 1 AM and wondering if she requires it again. RN verbalizing bladder scan andstraight catheterization. Pt completed UE bathing with HOB elevated steadying assist with LOB to L with ability to self correct. Pt returned to supine for LE dressing and bathing. Pt completed rolling side to mod A for repositioning of legs. LE dressing completed max A, able to assist in hiking pants up when rolling. Supine>sit with HOB slightly elevated max A for B legs and sitting upright. Pt sat mod A with increased assistance required on this date date. Pt reports not sleeping well and upset. Pt completed bed>wc transfer max A x1, mod A x1. Pt required repositioning of B LE, encouragement for forward lean, assistance with hand placement. Sitting in chair, pt completed oral hygienesupervision, demo LOB sitting in chair with ability to self correct. UE strengthening completed with green theraband, Introduced 2 more exercises, seated row and bicep curl. Pt completed x10 reps. Pt left sitting upright in wc, chair alarm armed for pt's safety, call doss within reach. OT Assessment OT Assessment OT Assessment Results: Decreased ADL status, Decreased endurance, Decreased sensation, Visual deficit, Decreased trunk control for functional activities, Impaired tone Prognosis: Good Evaluation/Treatment Tolerance: Patient tolerated treatment well Comments: Pt required increased assistance with slideboard xfers and decreased independence with sitting balance on this date. Pt tearful about the unknown, reassurance given with positive effect. Medical Staff Made Aware: Yes Comments: skin integrity, some redness noted indented from bed pad, dressing removal. OT Plan Plan Treatment Interventions: ADL retraining, Functional transfer training, UE strengthening/ROM, Endurance training, Equipment evaluation/education, Compensatory technique education, Continued evaluation OT Plan: Skilled OT OT Frequency : 5-7 days per week OT Duration of Sessions: 90 min per day OT Treatments per day: 1 time per day OT - Evaluation Status: Complete Equipment Recommended: (TBD) Barriers to Discharge: environemntal concerns, functional status, pt lives alone. Goals: Encounter Problems Encounter Problems (Active) Template: Occupational Therapy Problem: OT Assisted Goals Dates: Start: 06/26/24 Goal: pt will improve dynamic sitting balance to S, for up to 15 minutes, while performing UB ADL. Dates: Start: 06/26/24 Expected End: 07/17/24 Goal: pt will be able to independently direct care, in order to perform toileting safely, while allowing greatest level of INDEPENDENCE (including DME use, txfer techniques, and strategies) Dates: Start: 06/26/24 Expected End: 07/17/24 Goal: Pt will tolerate 3/3 meals OOB Dates: Start: 06/26/24 Expected End: 07/17/24 Goal: Pt will perform LB dressing with partial A, use of LH ADAPTIVE EQUIPTMENT prn Dates: Start: 06/26/24 Expected End: 07/17/24 Goal: pt will perform toileting with overall max A. Dates: Start: 06/26/24 Expected End: 07/17/24 Goal: pt will don shirt with S, sitting unsupported. Dates: Start: 06/26/24 Expected End: 07/17/24 Description: Problem: OT Short Term Goals Dates: Start: 06/26/24 Goal: Pt will perform rolling R><L with use of log roll technique, partial A, for pressure relief. Dates: Start: 06/26/24 Expected End: 07/03/24 Goal: Pt will tolerate sitting OOB for 1/3 meals Dates: Start: 06/26/24 Expected End: 07/03/24 Goal: Pt will sit at EOB for 10 minutes, with no more than partial A for balance to increase Potter with EOB ADL Dates: Start: 06/26/24 Expected End: 07/03/24 Goal: Pt will verbalize 3 pressure relief techniques in order to reduce sophia of pressure injury Dates: Start: 06/26/24 Expected End: 07/03/24 Goal: Pt will perform oral hygiene w/c level, with JACINTO. Dates: Start: 06/26/24 Expected End: 07/03/24 Encounter Problems (Resolved) There are no resolved problems. Education Documentation Skin Care/Pressure Ulcer Prevention, taught by Vero Wilson OT at 07/03/2024 1:22 PM. Learner: Patient Readiness: Acceptance Method: Explanation Response: Verbalizes Understanding ADL Training, taught by Vero Wilson OT at 07/03/2024 1:22 PM. Learner: Patient Readiness: Acceptance Method: Explanation Response: Verbalizes Understanding Home Exercise Program, taught by Vero Wilson OT at 07/03/2024 1:22 PM. Learner: Patient Readiness: Acceptance Method: Explanation Response: Verbalizes Understanding Precautions, taught by Vero Wilson OT at 07/03/2024 1:22 PM. Learner: Patient Readiness: Acceptance Method: Explanation Response: Verbalizes Understanding Body Mechanics, taught by Vero Wilson OT at 07/03/2024 1:22 PM. Learner: Patient Readiness: Acceptance Method: Explanation Response: Verbalizes Understanding Skin Care/Pressure Ulcer Prevention, taught by Vero Wilson OT at 07/03/2024 1:22 PM. Learner: Patient Readiness: Acceptance Method: Explanation Response: Verbalizes Understanding Fall Precautions, taught by Vero Wilson OT at 07/03/2024 1:22 PM. Learner: Patient Readiness: Acceptance Method: Explanation Response: Verbalizes Understanding Education Comments No comments found. Start/Stop Time OT Time Calculation OT Start Time: 0900 OT Stop Time: 1030 OT Time Calculation (min): 90 min Therapy Minutes: Occupational Therapy OT Individual: 90 * Belen Mcnulty, PT - 07/03/2024 12:30 PM EST [facility] Physical Therapy Treatment Note 07/03/2024 Patient: Yuly Montoya : 1955 Age: 68 y.o. Gender: female Primary Language: Tristanian Diagnosis: Lower extremity weakness Past Medical History: Diagnosis Date Adverse effect of anesthesia several hrs after sx pt had Panic attack Anxiety Arthritis Hypertension Irregular heart beat Joint pain Lymphedema Macular degeneration Past Surgical History: Procedure Laterality Date ABLATION OF DYSRHYTHMIC FOCUS BACK SURGERY N/A s/p L2-3 decompression 09/13/[address] Markham, s/p lumbar discectomy Dr. Bales, L3-4, L4-[address] Yarbrough February 2012, subsequent L4-S1 fusion in [place] with Dr. Cagle. CARPAL TUNNEL RELEASE Right TONSILLECTOMY ADENOIDECTOMY, BILATERAL MYRINGOTOMY AND TUBES TOTAL HIP ARTHROPLASTY Left 2022 TOTAL KNEE ARTHROPLASTY Bilateral Allergies: has No Known Allergies. Precautions: Medical Precautions: Fall Risk Safety Interventions: Call doss within reach, Chair alarm RUE Weight Bearing Status: Full LUE Weight Bearing Status: Full RLE Weight Bearing Status: Full LLE Weight Bearing Status: Full Orthopedic Precautions: Back Precautions NURSING RECOMMENDATIONS Bed Mobility: min A rolling, bed rails up, spinal precautions Transfers: clarisa Ambulation: none SUBJECTIVE Pt report: I just am feeling sad today Pain: Pain Assessment: No/denies pain OBJECTIVE General Observation: Pt sitting in wheelchair upon arrival to session, agreeable to PT session. Procedure/Treatment: Neuromuscular Reeducation: Balance/Neuromuscular Re-Education Neuromuscular Re-Education Time Entry: 90 Pt sitting in wheelchair upon arrival to session, agreeable to PT session. Supervision wheelchair mobility from room down to therapy gym. Education to pt on management of leg rests to remove for slide board transfers. Assisting in the use of leg sap functional analyst with removal of leg rests. Pt able to swing away arm rest. Completion x5 slide board transfers maxAx1, partial Ax1. Pt leaning laterally and needing assist for slide board placement. Max cues for forward lean while on board. Needing partial - maxA for trunk control and support during transfers. Minimal uplift. Completion seated dynamic balance exercises on mat table with unilateral UE support and reaching of unsupported UE. Needing up to maxAto correct for posterior losses of balance. Unable to sit without UE support on mat today with difficulty finding midline position. Completion perturbation exercise working on righting reactions withanterior, posterior, and lateral perturbations, partial A throughout. Completion slide board transfer back to wheelchair maxAx1 and partial Ax1, same technique as described above. Supervision wheelchair mobility back to room. Pt expressing fatigue stating decreased energy for slide board transfer back to bed. Clarisa back to bed. Pt incontinent of bowel. Completion rolling to L and R sides to doff pants and for hygiene. Patient left with PCT to finish clean up. Bed alarm on, call doss given, all needs met. Education: Education Documentation Skin Care/Pressure Ulcer Prevention, taught by Belen Mcnulty, PT at 07/03/2024 4:02 PM. Learner: Patient Readiness: Acceptance Method: Explanation, Demonstration Response: Verbalizes Understanding, Demonstrated Understanding Fall Precautions, taught by Belen Mcnulty PT at 07/03/2024 4:02 PM. Learner: Patient Readiness: Acceptance Method: Explanation, Demonstration Response: Verbalizes Understanding, Demonstrated Understanding Precautions, taught by Belen Mcnulty PT at 07/03/2024 4:02 PM. Learner: Patient Readiness: Acceptance Method: Explanation, Demonstration Response: Verbalizes Understanding, Demonstrated Understanding Mobility Training, taught by Belen Mcnulty PT at 07/03/2024 4:02 PM. Learner: Patient Readiness: Acceptance Method: Explanation, Demonstration Response: Verbalizes Understanding, Demonstrated Understanding Education Comments No comments found. ASSESSMENT PT Assessment PT Assessment Results: Decreased strength, Decreased endurance, Impaired balance, Decreased mobility, Decreased coordination, Impaired sensation, Decreased skin integrity, Orthopedic restrictions Prognosis: Fair Evaluation/Treatment Tolerance: Patient limited by fatigue Comments: Pt with fair tolerance to treatment session. Increased fatigue and decreased unsupported sitting balance during session. Will continue to benefit from skilled physical therapy. Equipment: TBD Plan of Care Plan Treatment/Interventions: Functional transfer training, LE strengthening/ROM, Patient/family training, Bed mobility, Balance training, Gait training PT Plan: Skilled PT PT Frequency: 5 days per week PT Duration of Sessions: 90 min per day PT Treatments per day: 1 time per day PT Discharge Recommendations: (TBD) Equipment Recommended: TBD Problems/Goals Goals: Encounter Problems Encounter Problems (Active) Template: Physical Therapy Problem: PT Assisted Goals Dates: Start: 06/26/24 Goal: Mod I rolling Dates: Start: 06/26/24 Expected End: 07/17/24 Goal: Partial A transfers LRAD with pt directing care Dates: Start: 06/26/24 Expected End: 07/17/24 Goal: Sit <> supine partial A, pt directing care adhering to spinal precautions Dates: Start: 06/26/24 Expected End: 07/17/24 Goal: Mod I wheelchair mobility x150' Dates: Start: 06/26/24 Expected End: 07/17/24 Goal: Pt will sit independently x15 min Dates: Start: 06/26/24 Expected End: 07/17/24 Problem: PT Short Term Goals Dates: Start: 06/26/24 Goal: Supervision rolling Dates: Start: 06/26/24 Expected End: 07/03/24 Goal: Sit <> supine max Ax1 Dates: Start: 06/26/24 Expected End: 07/03/24 Goal: Max A + partial A slideboard transfers Dates: Start: 06/26/24 Expected End: 07/03/24 Goal: Supervision wheelchair mobility x100' Dates: Start: 06/26/24 Expected End: 07/03/24 Goal: Pt will sit with UE support x5 min supervision/steadying A Dates: Start: 06/26/24 Expected End: 07/03/24 Encounter Problems (Resolved) There are no resolved problems. Session Start/Stop Time: 1230 1400 Therapy Minutes Physical Therapy PT Individual: 90 * Amber Ritchie, PA - 07/03/2024 10:59 AM EST Images from the original note were not included. [facility] Daily Progress Note Patient name: Yuly Montoya : 1955 SUBJECTIVE: Patient seen and examined at bedside today. No acute events overnight. Denies headaches, dizziness,shortness of breath, chest pain, nausea, constipation, and pain. Fould smelling urine continues, also darker than usual. UA + for bacteria and culture ecoli + will order atbx at this time. OBJECTIVE: Vitals: 07/02/24 0800 07/02/24 1519 07/03/24 0039 07/03/24 0730 BP: 111/74 (!) 154/88 139/76 (!) 153/84 BP Location: Left arm Patient Position: Lying Pulse: 64 64 73 Resp: 18 16 16 18 Temp: 36.5 ??C (97.7 ??F) 37.1 ??C (98.8 ??F) 36.7 ??C (98 ??F) 37.8 ??C (100 ??F) TempSrc: Oral Oral Oral SpO2: 95% 100% 98% Weight: Physical Examination: General: Alert, in no acute cardiopulmonary distress. Mental Status: Oriented to person, place and time. Normal affect. Head: Normocephalic. Eyes: Pupils are equal, round and reactive to light. Extraocular muscles intact. Ear, Nose and Throat: Oropharynx clear, mucous membranes moist. Ears and nose without masses, lesions or deformities. Neck: Supple, Trachea midline. Respiratory: Clear to auscultation and percussion. No wheezing, rales or rhonchi. Cardiovascular: Heart sounds normal. No thrills. Regular rate and rhythm, no murmurs, rubs or gallops. Gastrointestinal: Abdomen soft, non-tender, non-distended. Normal bowel sounds. Genitourinary: +Varma catheter in place with clear yellow urine in bag. Neurologic: b/l LE weakness. Decreased ssensation to b/l LE R>l and decreased sensation to abd Skin: No rashes or lesions. No petechiae or purpura. No edema. Musculoskeletal: RLE 0/5 strength. LLE 0/5 hip flexion and knee extension. LLE 1/5 left dorsiflexion and plantarflexion. CURRENT INPATIENT MEDICATIONS: Current Facility-Administered Medications: acetaminophen (TYLENOL) tablet 975 mg, 975 mg, oral, q8h EDEN, Darline Lara DO, 975 mg at 07/03/24 06 ALPRAZolam (XANAX) tablet 0.5 mg, 0.5 mg, oral, Nightly PRN, THEODORA Lawson, 0.5 mg at 07/02/242100 aluminum-magnesium hydroxide-simethicone (MAALOX) 200-200-20 mg/5 mL suspension 30 mL, 30 mL, oral,q4h PRN, THEODORA Lawson bisacodyL (DULCOLAX) suppository 10 mg, 10 mg, rectal, Daily PRN, THEODORA Lawson bisacodyL (DULCOLAX) suppository 10 mg, 10 mg, rectal, q24h, Darline Lara DO, 10 mg at 07/02/24 1727 clotrimazole (LOTRIMIN) 1 % cream, , Topical, BID, Umm Wood, TAMMI, 1 Application at 07/03/24 0841 docusate sodium (COLACE) capsule 100 mg, 100 mg, oral, BID PRN, Darline Lara DO doxepin (SINEquan) capsule 100 mg, 100 mg, oral, Nightly, THEODORA Lawson, 100 mg at 07/02/24 210 DULoxetine (CYMBALTA) DR capsule 60 mg, 60 mg, oral, Daily, THEODORA Lawson, 60 mg at 07/03/24 0841 famotidine (PEPCID) tablet 20 mg, 20 mg, oral, Daily, THEODORA Lawson, 20 mg at 07/03/24 0841 ferrous sulfate tablet 325 mg, 325 mg, oral, BID, Umm Wood NP, 325 mg at 07/03/24 0841 gabapentin (NEURONTIN) capsule 400 mg, 400 mg, oral, q8h EDEN, Darline Lara DO, 400 mg at 07/03/24 0625 heparin (UFH) injection 5,000 Units, 5,000 Units, subcutaneous, q8h EDEN, THEODORA Lawson, 5,000Units at 07/03/24 0624 magnesium hydroxide (MILK OF MAGNESIA) 400 mg/5 mL suspension 30 mL, 30 mL, oral, Daily PRN, THEODORA Lawson metoprolol succinate (TOPROL-XL) 24 Hour tablet 25 mg, 25 mg, oral, Daily, THEODORA Pope, 25mg at 07/03/24 0840 oxyCODONE (ROXICODONE) immediate release tablet 5 mg, 5 mg, oral, q6h PRN, Darline Lara DO,5 mg at 07/02/24 2100 polyvinyl alcohol-povidone (PF) (ARTIFICIAL TEARS) 1.4-0.6 % ophthalmic solution 2 drop, 2 drop, Both Eyes, q2h PRN, Darline Lara DO traZODone (DESYREL) tablet 75 mg, 75 mg, oral, Nightly, THEODORA Lawson, 75 mg at 07/02/242101 LABS: Lab Results Component Value Date WBC 9.1 07/03/2024 RBC 3.30 (L) 07/03/2024 HGB 10.0 (L) 07/03/2024 HCT 30.6 (L) 07/03/2024 MCV 91.6 07/03/2024 MCHC 32.7 07/03/2024 RDW 16.0 (H) 07/03/2024 PLT 153 07/03/2024 MPV 9.5 07/03/2024 NRBC 0.0 07/03/2024 DIFF Lab Results Component Value Date LYMPHOPCT 11.7 07/03/2024 NEUTROABS 7.11 (H) 07/03/2024 LYMPHSABS 1.06 07/03/2024 MONOABS 0.68 07/03/2024 EOSABS 0.12 07/03/2024 BASOSABS 0.03 07/03/2024 IMMGRANABS 0.09 (H) 07/03/2024 RETIC No results found for: RETIC , RETICCTPCT Lab Results Component Value Date NA 131 (L) 07/03/2024 K 4.2 07/03/2024 CL 95 (L) 07/03/2024 CO2 32 07/03/2024 GLUCOSE 95 07/03/2024 BUN 13 07/03/2024 CREATININE 0.53 07/03/2024 CALCIUM 8.8 07/03/2024 PROT 5.0 (L) 06/27/2024 ALBUMIN 2.9 (L) 06/27/2024 BILITOT 0.7 06/27/2024 AST 19 06/27/2024 ALT 22 06/27/2024 PHOS 2.7 06/15/2024 MG 1.9 06/27/2024 ALKPHOS 82 06/27/2024 EGFR 102 07/03/2024 IMPRESSION & PLAN: #Impaired mobility and self care -Secondary to thoracic myelopathy -Continue with PT, OT, and nursing care #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 -s/p T5-T8 fusion and T5-7 decompression T6-7 facetectomy and removal of mass (non malignant) by [facility] at [facility] -Betadine to surgical incision daily and leave open to air -continue therapies -5 day course of Methylprednisolone 4 mg daily completed on 06/30/24 -Tizanidine 2 mg daily 06/26 held due to hypotension --> discontinued on 06/27 due to hypotension -f/u NSG after discharge #Pain management -Tylenol 975mg Q8H -Gabapentin 800 mg BID --> changed to 400mg Q8H on 06/27 due to hypotension -Oxycodone 5mg Q6H PRN #Hypotension -will give additional IVF on 06/27 -medications adjusted as outlined below -monitor #Hypertension -Hydralazine 75 mg BID discontinued 06/27 due to hypotension -Dyazide 37.5-25 mg daily discontinued 06/26 due to hypotension -Valsartan 320 mg daily discontinued 06/26 due to hypotension -Metoprolol succinate 25 mg daily continued with holding parameters #Anxiety -Doxepin 100 mg nightly -Duloxetine 60 mg daily -Trazodone 75 mg nightly -Xanax 0.5mg QHS PRN #GERD -Famotidine 20 mg daily #Hyponatremia -sodium 124 on 06/26 --> 129 on 06/27 --> 131 on 06/28 --> 136 on 07/02 -monitor with routine labs #Anemia -Ferrous sulfate 325mg BID #Neurogenic bladder -Varma catheter removed on 07/02 as per Medicine team recs -UA 07/02 obtained --> will await urine culture due to lack of fever and leukocytosis #Neurogenic bowel -suppository daily at 1800 and transfer to [facility] -patient denies incontinence #UTI - Urine w/ bacteria on 07/02, culture reviewed 07/03 ecoli + - Ceftin 250 mg po bid start 07/03/24 end 07/10/2024. DVT ppx: Heparin 5000 units SQ TID Associated attestation - Darline Lara DO - 07/03/2024 9:16 PM EST Agree with progress note, assessment, and plan as documented by PA today. * Darline Lara DO - 07/02/2024 5:06 PM EST Images from the original note were not included. [facility] Daily Progress Note Patient name: Yuly Montoya : 1955 SUBJECTIVE: Patient seen and examined at bedside today. No acute events overnight. Denies headaches, dizziness,shortness of breath, chest pain, nausea, constipation, and pain. States that BLE spasms are controlled. Medicine team ordered discontinuation of varma catheter this morning and monitoring for UTI due to foul smell of urine and urine sediment noted. Participating in therapies: Completion slide board transfer maxAx1 SBAx1 wheelchair to mat table, level surface. Needing assist with armrest management and leg rest management. OBJECTIVE: Vitals: 07/02/24 0510 07/02/24 0700 07/02/24 0800 07/02/24 1519 BP: 127/82 132/80 111/74 (!) 154/88 BP Location: Left arm Left arm Patient Position: Lying Lying Pulse: 59 57 64 Resp: 17 18 16 Temp: 36.8 ??C (98.2 ??F) 36.5 ??C (97.7 ??F) 37.1 ??C (98.8 ??F) TempSrc: Oral Oral Oral SpO2: 99% 98% 95% Weight: Physical Examination: General: Alert, in no acute cardiopulmonary distress. Mental Status: Oriented to person, place and time. Normal affect. Head: Normocephalic. Eyes: Pupils are equal, round and reactive to light. Extraocular muscles intact. Ear, Nose and Throat: Oropharynx clear, mucous membranes moist. Ears and nose without masses, lesions or deformities. Neck: Supple, Trachea midline. Respiratory: Clear to auscultation and percussion. No wheezing, rales or rhonchi. Cardiovascular: Heart sounds normal. No thrills. Regular rate and rhythm, no murmurs, rubs or gallops. Gastrointestinal: Abdomen soft, non-tender, non-distended. Normal bowel sounds. Genitourinary: +Varma catheter in place with clear yellow urine in bag. Neurologic: b/l LE weakness. Decreased ssensation to b/l LE R>l and decreased sensation to abd Skin: No rashes or lesions. No petechiae or purpura. No edema. Musculoskeletal: RLE 0/5 strength. LLE 0/5 hip flexion and knee extension. LLE 1/5 left dorsiflexion and plantarflexion. CURRENT INPATIENT MEDICATIONS: Current Facility-Administered Medications: acetaminophen (TYLENOL) tablet 975 mg, 975 mg, oral, q8h Darline HARMON DO, 975 mg at 07/02/24 1426 ALPRAZolam (XANAX) tablet 0.5 mg, 0.5 mg, oral, Nightly PRN, THEODORA Lawson, 0.5 mg at 07/01/24 2144 aluminum-magnesium hydroxide-simethicone (MAALOX) 200-200-20 mg/5 mL suspension 30 mL, 30 mL, oral,q4h PRN, THEODORA Lawson bisacodyL (DULCOLAX) suppository 10 mg, 10 mg, rectal, Daily PRN, THEODORA Lawson bisacodyL (DULCOLAX) suppository 10 mg, 10 mg, rectal, q24h, Darline Lara DO, 10 mg at 07/01/24 1807 clotrimazole (LOTRIMIN) 1 % cream, , Topical, BID, Umm Wood NP, 1 Application at 07/02/24 1426 docusate sodium (COLACE) capsule 100 mg, 100 mg, oral, BID PRN, Darline Lara DO doxepin (SINEquan) capsule 100 mg, 100 mg, oral, Nightly, THEODORA Lawson, 100 mg at 07/01/24 214 DULoxetine (CYMBALTA) DR capsule 60 mg, 60 mg, oral, Daily, THEODORA Lawson, 60 mg at 07/02/24 0824 famotidine (PEPCID) tablet 20 mg, 20 mg, oral, Daily, THEODORA Lawson, 20 mg at 07/02/24 0824 ferrous sulfate tablet 325 mg, 325 mg, oral, BID, Umm Wood NP, 325 mg at 07/02/24 1427 gabapentin (NEURONTIN) capsule 400 mg, 400 mg, oral, q8h [facility], Darline Lara DO, 400 mg at 07/02/24 1427 heparin (UFH) injection 5,000 Units, 5,000 Units, subcutaneous, q8h EDEN, THEODORA Lawson, 5,000Units at 07/02/24 1426 magnesium hydroxide (MILK OF MAGNESIA) 400 mg/5 mL suspension 30 mL, 30 mL, oral, Daily PRN, THEODORA aLwson metoprolol succinate (TOPROL-XL) 24 Hour tablet 25 mg, 25 mg, oral, Daily, THEODORA Pope, 25mg at 07/02/24 0824 oxyCODONE (ROXICODONE) immediate release tablet 5 mg, 5 mg, oral, q6h PRN, Darline Lara DO,5 mg at 07/01/242143 polyvinyl alcohol-povidone (PF) (ARTIFICIAL TEARS) 1.4-0.6 % ophthalmic solution 2 drop, 2 drop, Both Eyes, q2h PRN, Darline Lara DO traZODone (DESYREL) tablet 75 mg, 75 mg, oral, Nightly, THEODORA Lawson, 75 mg at 07/01/242142 LABS: Lab Results Component Value Date WBC 6.7 07/02/2024 RBC 3.10 (L) 07/02/2024 HGB 9.5 (L) 07/02/2024 HCT 29.5 (L) 07/02/2024 MCV 94.9 07/02/2024 MCHC 32.2 07/02/2024 RDW 16.0 (H) 07/02/2024 PLT 148 07/02/2024 MPV 9.7 07/02/2024 NRBC 0.0 07/02/2024 DIFF Lab Results Component Value Date LYMPHOPCT 11.0 06/26/2024 NEUTROABS 8.99 (H) 06/26/2024 LYMPHSABS 1.40 06/26/2024 MONOABS 1.86 (H) 06/26/2024 EOSABS 0.10 06/26/2024 BASOSABS 0.03 06/26/2024 IMMGRANABS 0.35 (H) 06/26/2024 RETIC No results found for: RETIC , RETICCTPCT Lab Results Component Value Date NA 136 07/02/2024 K 4.5 07/02/2024 CL 98 07/02/2024 CO2 35 (H) 07/02/2024 GLUCOSE 96 07/02/2024 BUN 12 07/02/2024 CREATININE 0.52 07/02/2024 CALCIUM 8.9 07/02/2024 PROT 5.0 (L) 06/27/2024 ALBUMIN 2.9 (L) 06/27/2024 BILITOT 0.7 06/27/2024 AST 19 06/27/2024 ALT 22 06/27/2024 PHOS 2.7 06/15/2024 MG 1.9 06/27/2024 ALKPHOS 82 06/27/2024 EGFR 102 07/02/2024 IMPRESSION & PLAN: #Impaired mobility and self care -Secondary to thoracic myelopathy -Continue with PT, OT, and nursing care #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 -s/p T5-T8 fusion and T5-7 decompression T6-7 facetectomy and removal of mass (non malignant) by [facility] at [facility] -Betadine to surgical incision daily and leave open to air -continue therapies -5 day course of Methylprednisolone 4 mg daily completed on 06/30/24 -Tizanidine 2 mg daily 06/26 held due to hypotension --> discontinued on 06/27 due to hypotension -f/u NSG after discharge #Pain management -Tylenol 975mg Q8H -Gabapentin 800 mg BID --> changed to 400mg Q8H on 06/27 due to hypotension -Oxycodone 5mg Q6H PRN #Hypotension -will give additional IVF on 06/27 -medications adjusted as outlined below -monitor #Hypertension -Hydralazine 75 mg BID discontinued 06/27 due to hypotension -Dyazide 37.5-25 mg daily discontinued 06/26 due to hypotension -Valsartan 320 mg daily discontinued 06/26 due to hypotension -Metoprolol succinate 25 mg daily continued with holding parameters #Anxiety -Doxepin 100 mg nightly -Duloxetine 60 mg daily -Trazodone 75 mg nightly -Xanax 0.5mg QHS PRN #GERD -Famotidine 20 mg daily #Hyponatremia -sodium 124 on 06/26 --> 129 on 06/27 --> 131 on 06/28 --> 136 on 07/02 -monitor with routine labs #Anemia -Ferrous sulfate 325mg BID #Neurogenic bladder -Varma catheter removed on 07/02 as per Medicine team recs -UA 07/02 obtained --> will await urine culture due to lack of fever and leukocytosis #Neurogenic bowel -suppository daily at 1800 and transfer to [facility] -patient denies incontinence DVT ppx: Heparin 5000 units SQ TID * Mishel Dominguez RN - 07/02/2024 3:47 PM EST Pt f/c was d/c this am. Pt did not void, bladder scan resulted 881cc. Pt was s/c for 850cc yellow urine. Urine sent to lab per order. Dr. Markham in and removed her ronald. Inc d&I. * THEODORA Imnan - 07/02/2024 2:08 PM EST NEUROSURGERY PROGRESS NOTE: S: Patient states she is happy to be back at [facility] inpatient rehab, she is doing physical therapy/Occupational Therapy, they have been trying to help her improve with sitting in a chair independently. She does note neck pain/heaviness during physical therapy, states she feels like she keeps her head and neck hunched forward. She has been having neurogenic bowel bladder, they are trying a voiding trial, Varma DC'd this morning. Eating well. O: Patient is awake and alert, motor exam: Random right toe movements, patient cannot control, overall right LE 0/5. Left LE shows slight toe wiggle, dorsiflexion plantarflexion to gravity, possibly faint quad/IP contraction. Patient notes sensation to light touch in the left leg, none in the rightleg. Thoracic incision healing well, no sign of infection, ronald removed without complication. Respirations unlabored. BP: 111/74 (07/02 799) Heart Rate: 57 (07/02 699) Heart Rate Source: Monitor (07/02 799) Temp: 36.5 ??C (97.7 ??F) (07/02 799) Temp Source: Oral (07/02 799) SpO2: 98 % (07/02 699) Current Facility-Administered Medications: acetaminophen (TYLENOL) tablet 975 mg, 975 mg, oral, q8h Darline HARMON DO, 975 mg at 07/02/24 0523 ALPRAZolam (XANAX) tablet 0.5 mg, 0.5 mg, oral, Nightly PRN, THEODORA Lawson, 0.5 mg at 07/01/242143 aluminum-magnesium hydroxide-simethicone (MAALOX) 200-200-20 mg/5 mL suspension 30 mL, 30 mL, oral,q4h PRN, THEODORA Lawson bisacodyL (DULCOLAX) suppository 10 mg, 10 mg, rectal, Daily PRN, THEODORA Lawson bisacodyL (DULCOLAX) suppository 10 mg, 10 mg, rectal, q24h, Darline Lara DO, 10 mg at 07/01/24 180 clotrimazole (LOTRIMIN) 1 % cream, , Topical, BID, Umm Wood NP docusate sodium (COLACE) capsule 100 mg, 100 mg, oral, BID PRN, Darline Lara DO doxepin (SINEquan) capsule 100 mg, 100 mg, oral, Nightly, THEODORA Lawson, 100 mg at 07/01/242142 DULoxetine (CYMBALTA) DR capsule 60 mg, 60 mg, oral, Daily, THEDOORA Lawson, 60 mg at 07/02/24 0824 famotidine (PEPCID) tablet 20 mg, 20 mg, oral, Daily, THEODORA Lawson, 20 mg at 07/02/24 0824 ferrous sulfate tablet 325 mg, 325 mg, oral, BID, Umm Wood NP gabapentin (NEURONTIN) capsule 400 mg, 400 mg, oral, q8h EDEN, Darline Lara DO, 400 mg at 07/02/24 0523 heparin (UFH) injection 5,000 Units, 5,000 Units, subcutaneous, q8h EDEN, THEODORA Lawson, 5,000Units at 07/02/24 0523 magnesium hydroxide (MILK OF MAGNESIA) 400 mg/5 mL suspension 30 mL, 30 mL, oral, Daily PRN, THEODORA Lawson metoprolol succinate (TOPROL-XL) 24 Hour tablet 25 mg, 25 mg, oral, Daily, THEODORA Pope, 25mg at 07/02/24 0824 oxyCODONE (ROXICODONE) immediate release tablet 5 mg, 5 mg, oral, q6h PRN, Darline Lara DO,5 mg at 07/01/242143 polyvinyl alcohol-povidone (PF) (ARTIFICIAL TEARS) 1.4-0.6 % ophthalmic solution 2 drop, 2 drop, Both Eyes, q2h PRN, Darline Lara DO traZODone (DESYREL) tablet 75 mg, 75 mg, oral, Nightly, THEODORA Lawson, 75 mg at 07/01/242142 A/P: Pt is POD# 21 s/p T5-T8 fusion and T5-7 decompression T6-7 facetectomy and removal of mass by Dr. Hall (surgery 06/11/2024 at [facility]). She is 1 month s/p reexploration and thoracic decompression on 06-01-[address] Markham saw and examined patient today. She agreed patient can try soft cervical collar during her physical therapy sessions, however she should not wear the soft collar throughout the day because it can weaken her neck muscles over time. Artemas removed without complication, you can apply antibiotic ointment to the incision for drynessor itchiness. All questions answered. We asked patient to call the office with any concerns or questions. Apoorva Genao PA-C * Umm Wood NP - 07/02/2024 11:30 AM EST Images from the original note were not included. [facility] PROGRESS NOTE Date: 07/02/2024 Author: Umm Wood NP Patient ID: Yuly Montoya is a 68 y.o. female : 1955 MR#: [id number] SUBJECTIVE Subjective BP more acceptable She is moving her bowels and is with a Varma Still with neurogenic bowel and bladder Varma cath DC'd this morning with straight cath protocol as she is having some sediment Improved left weakness c/o very little activity rt toes Eating well Has a friend with a son who would like to attend this week ROS Constitutional :no fever chills , appetite fair, sleeping well HEENT: denies headaches Respiratory: denies shortness of breath, coughing or wheezing Cardiac: denies chest pain, palpitations, : No abd pain, no N/V. Genitourinary: denies any dysuria frequency urgency Musculoskeletal: No joint pain ,back pain Allergies Patient has no known allergies. Current Medications: acetaminophen, 975 mg, oral, q8h EDEN bisacodyL, 10 mg, rectal, q24h clotrimazole, , Topical, BID doxepin, 100 mg, oral, Nightly DULoxetine, 60 mg, oral, Daily famotidine, 20 mg, oral, Daily gabapentin, 400 mg, oral, q8h EDEN heparin (UFH), 5,000 Units, subcutaneous, q8h EDEN metoprolol succinate, 25 mg, oral, Daily traZODone, 75 mg, oral, Nightly PRN medications: ALPRAZolam, aluminum-magnesium hydroxide-simethicone, bisacodyL, docusate sodium, magnesium hydroxide, oxyCODONE OBJECTIVE Vitals: 07/01/24 0903 07/01/24 1529 07/02/24 0510 07/02/24 0700 BP: 118/67 116/62 127/82 132/80 BP Location: Left arm Left arm Patient Position: Lying Lying Pulse: 62 68 59 57 Resp: 16 17 17 Temp: 36.4 ??C (97.5 ??F) 36.8 ??C (98.2 ??F) 36.8 ??C (98.2 ??F) TempSrc: Oral Oral SpO2: 98% 97% 99% 98% Weight: PHYSICAL EXAM General-NAD, cognitively- intact , AAO- ??3 , appears stated age, appears comfortable Heart-RRR, normal S1, S2, no clicks, heaves, murmurs, splits, gallops, rubs Lungs-CTA B no adventitious breath sounds. Abdomen-S NT BS ??4, no distention, organomegaly, no palpable masses. Extremities-M AE, no CCE, cap refill brisk, DPP Neuromuscular-right lower extremity with minimal movement of her digits no sensation up to her waist Antogravitity left foot Back incision clean sand dry today,no serous dischargeopen to air Integumentary- turgor good, skin warm dry intact, no rashes LABS HEMATOLOGY Lab Results Component Value Date WBC 6.7 07/02/2024 HGB 9.5 (L) 07/02/2024 HCT 29.5 (L) 07/02/2024 MCV 94.9 07/02/2024 PLT 148 07/02/2024 CHEMISTRY Lab Results Component Value Date GLUCOSE 96 07/02/2024 NA 136 07/02/2024 K 4.5 07/02/2024 CO2 35 (H) 07/02/2024 CL 98 07/02/2024 BUN 12 07/02/2024 CREATININE 0.52 07/02/2024 EGFR 102 07/02/2024 CALCIUM 8.9 07/02/2024 MG 1.9 06/27/2024 PHOS 2.7 06/15/2024 ANIONGAP 3 07/02/2024 Imaging: ASSESSMENT & PLAN Thoracic spinal stenosis, Hx spinal mass, s/p 2 thoracic decompression surgeries 06/11 she was transferred to [facility] S/p T5-T8 fusion and T5-7 decompression T6-7 facetectomy and removal of mass. Dr. Hall Biopsy- Fragments of benign bone and cartilage with focus of necrotic bone. No malignancy identified. F/u with neurosurgery after discharge Patient has left foot plantarflexion and dorsiflexion as well as improved sensation on the left lower extremity Sensation on the right lower extremity -minimal toe movement neurogenic bowel and bladder Pain management with gabapentin 800 twice daily reduced to 400 3 times daily methylprednisone 4 mg Medrol Dosepak taper off tizanidine due to hypotension Treatment per PMR reCommend Betadine to wound open to air offload dry DSD when needed no Mepilex Neurogenic bowel and bladder Varma catheter. Last exchanged 06/11 + pyuria and was treated with Macrobid On bowel regimen/program Patient reports recent diarrhea loose stools have improved Varma catheter DC'd patient is on straight cath protocol patient has had sediment in her urine Patient has had a foul urine odor Monitor for UTI no fever no chills no white count no suprapubic tenderness history of cervical spondylolisthesis with central canal stenosis Leukocytosis Mild 12,000--> RESOLVED Atrial flutter s/p ablation Recent bradycardia now on lower dose of BB Toprol XL 25 mg Rate controlled in the 60s monitor Hypertension Recent soft BP's /Hypotension Toprol XL 25 mg hold parameters Triamterene hydrochlorothiazide hydralazine and Diovan DC'd rec IVF. offTizanidine Pressure is elevated occasionally since multiple med changes will follow for now hyponatremia Recent diarrhea Clinically dry. Diarrhea resolved Na improved was 124--> now 129 -> 131 S/p gentle ivf Resolved 136 Lymphedema acute on chronic special stockings at home. Using Isiah wraps bilaterally. No pain to the extremities. 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 Gender: female Primary Language: Tristanian Diagnosis: Lower extremity weakness Past Medical History: Diagnosis Date Adverse effect of anesthesia several hrs after sx pt had Panic attack Anxiety Arthritis Hypertension Irregular heart beat Joint pain Lymphedema Macular degeneration Past Surgical History: Procedure Laterality Date ABLATION OF DYSRHYTHMIC FOCUS BACK SURGERY N/A s/p L2-3 decompression 09/13/[address] Markham, s/p lumbar discectomy Dr. Bales, L3-4, L4-[address] Yarbrough February 2012, subsequent L4-S1 fusion in [place] with Dr. Cagle. CARPAL TUNNEL RELEASE Right TONSILLECTOMY ADENOIDECTOMY, BILATERAL MYRINGOTOMY AND TUBES TOTAL HIP ARTHROPLASTY Left 2022 TOTAL KNEE ARTHROPLASTY Bilateral Allergies: has No Known Allergies. Precautions: Medical Precautions: Fall Risk Safety Interventions: Call doss within reach RUE Weight Bearing Status: Full LUE Weight Bearing Status: Full RLE Weight Bearing Status: Full LLE Weight Bearing Status: Full Orthopedic Precautions: Back Precautions NURSING RECOMMENDATIONS Bed Mobility: min A rolling, bed rails up, spinal precautions Transfers: clarisa Ambulation: none SUBJECTIVE Pt report: Sometimes I feel good and sometimes it is just so hard Pain: Pain Assessment: 0-10 Pain Score: 5 - Moderate pain Pain Location: Neck OBJECTIVE General Observation: Pt sitting in wheelchair upon arrival to session, agreeable to PT session. Procedure/Treatment: Neuromuscular Reeducation: Balance/Neuromuscular Re-Education Neuromuscular Re-Education Time Entry: 90 Pt sitting in wheelchair upon arrival to session, agreeable to PT session. Supervision for wheelchair mobility from room down to therapy gym. Completion slide board transfer maxAx1 SBAx1 wheelchair to mat table, level surface. Needing assist with armrest management and leg rest management. Pt completing lateral lean and PT assisting with slide board placement. BLEs blocked and LEs repositioned throughout. Completing in x3 trials. Cues to remain forward. Completion dynamic reaching exercise completing arm motions with rings in semi circular pattern across path without UE support. Patient with frequent lateral losses of balance. Pt reaching to self correct on all trials. Needing partial A to correct for. Completion dynamic balance sitting exercise with murcia bags completing arm press with murcia bag and then passing to other hand to complete, steadying - partial A throughout. Needing frequent postural rest breaks with back support. Completion slide board transfer mat table <> wheelchair, maxAx1 and SBAx1. Same method as described above. Improvements in postural stability during transfer, minimal uplift during transfers. Completion wheelchair push ups x10, minimal uplift. Supervision wheelchair mobility from therapy gym to room. Requesting to stay in chair. Chair alarm on, call doss given, all needs met. Education: Education Documentation Skin Care/Pressure Ulcer Prevention, taught by Belen Mcnulty, PT at 07/02/2024 12:05 PM. Learner: Patient Readiness: Acceptance Method: Explanation, Demonstration Response: Verbalizes Understanding, Demonstrated Understanding Fall Precautions, taught by Belen Mcnulty PT at 07/02/2024 12:05 PM. Learner: Patient Readiness: Acceptance Method: Explanation, Demonstration Response: Verbalizes Understanding, Demonstrated Understanding Teach positioning to prevent injury, taught by Belen Mcnulty PT at 07/02/2024 12:05 PM. Learner: Patient Readiness: Acceptance Method: Explanation, Demonstration Response: Verbalizes Understanding, Demonstrated Understanding Precautions, taught by Belen Mcnulty, PT at 07/02/2024 12:05 PM. Learner: Patient Readiness: Acceptance Method: Explanation, Demonstration Response: Verbalizes Understanding, Demonstrated Understanding Mobility Training, taught by Belen Mcnulty, PT at 07/02/2024 12:05 PM. Learner: Patient Readiness: Acceptance Method: Explanation, Demonstration Response: Verbalizes Understanding, Demonstrated Understanding Education Comments No comments found. ASSESSMENT PT Assessment PT Assessment Results: Decreased strength, Decreased endurance, Impaired balance, Decreased mobility, Decreased coordination, Impaired sensation, Decreased skin integrity, Orthopedic restrictions Prognosis: Fair Evaluation/Treatment Tolerance: Patient tolerated treatment well Comments: Pt with good tolerance to treatment session. maxAx1 and SBAx1 for transfers during session. Improvements in core stability during transfer, minimal uplift on board. Will continue to benefitfrom skilled physical therapy. Equipment: TBD Plan of Care Plan Treatment/Interventions: Functional transfer training, LE strengthening/ROM, Patient/family training, Bed mobility, Balance training, Gait training PT Plan: Skilled PT PT Frequency: 5 days per week PT Duration of Sessions: 90 min per day PT Treatments per day: 1 time per day PT Discharge Recommendations: (TBD) Equipment Recommended: TBD Problems/Goals Goals: Encounter Problems Encounter Problems (Active) Template: Physical Therapy Problem: PT Assisted Goals Dates: Start: 06/26/24 Goal: Mod I rolling Dates: Start: 06/26/24 Expected End: 07/17/24 Goal: Partial A transfers LRAD with pt directing care Dates: Start: 06/26/24 Expected End: 07/17/24 Goal: Sit <> supine partial A, pt directing care adhering to spinal precautions Dates: Start: 06/26/24 Expected End: 07/17/24 Goal: Mod I wheelchair mobility x150' Dates: Start: 06/26/24 Expected End: 07/17/24 Goal: Pt will sit independently x15 min Dates: Start: 06/26/24 Expected End: 07/17/24 Problem: PT Short Term Goals Dates: Start: 06/26/24 Goal: Supervision rolling Dates: Start: 06/26/24 Expected End: 07/03/24 Goal: Sit <> supine max Ax1 Dates: Start: 06/26/24 Expected End: 07/03/24 Goal: Max A + partial A slideboard transfers Dates: Start: 06/26/24 Expected End: 07/03/24 Goal: Supervision wheelchair mobility x100' Dates: Start: 06/26/24 Expected End: 07/03/24 Goal: Pt will sit with UE support x5 min supervision/steadying A Dates: Start: 06/26/24 Expected End: 07/03/24 Encounter Problems (Resolved) There are no resolved problems. Session Start/Stop Time: 929 1100 Therapy Minutes Physical Therapy PT Individual: 90 * Ben Miller, OT - 07/02/2024 7:00 AM EST [facility] Occupational Therapy Treatment Note 07/02/24 Patient: Yuly Montoya : 1955 Age: 68 y.o. Gender: female Diagnosis: Lower extremity weakness Primary Rehab (Etiologic) Diagnosis: Patient Active Problem List Diagnosis Lumbar spondylosis Onychomycosis Pain in toe Sacroiliitis (CMS/HCC) Spondylolisthesis Cervical spondylosis Spinal stenosis of thoracic region Thoracic spinal stenosis Age-related macular degeneration Anxiety Atrial flutter (CMS/HCC) Obstructive sleep apnea syndrome Deep vein thrombosis (DVT) of lower extremity (CMS/HCC) History of artificial joint Hypertension Osteoarthritis of hip Peripheral venous insufficiency S/P tonsillectomy and adenoidectomy Bradycardia Thoracic myelopathy Lower extremity weakness PMH: Past Medical History: Diagnosis Date Adverse effect of anesthesia several hrs after sx pt had Panic attack Anxiety Arthritis Hypertension Irregular heart beat Joint pain Lymphedema Macular degeneration PSH: Past Surgical History: Procedure Laterality Date ABLATION OF DYSRHYTHMIC FOCUS BACK SURGERY N/A s/p L2-3 decompression 09/13/[address] Markham, s/p lumbar discectomy Dr. Bales, L3-4, L4-[address] Yarbrough February 2012, subsequent L4-S1 fusion in [place] with Dr. Cagle. CARPAL TUNNEL RELEASE Right TONSILLECTOMY ADENOIDECTOMY, BILATERAL MYRINGOTOMY AND TUBES TOTAL HIP ARTHROPLASTY Left 2022 TOTAL KNEE ARTHROPLASTY Bilateral Allergies: has No Known Allergies. Precautions: Precautions Medical Precautions: Fall Risk Safety Interventions: Call doss within reach RUE Weight Bearing Status: Full LUE Weight Bearing Status: Full RLE Weight Bearing Status: Full LLE Weight Bearing Status: Full Orthopedic Precautions: Back Precautions Vitals: BP: 132/80 Heart Rate: 57 SpO2: 98 % Pain: Pain Assessment Pain Assessment: 0-10 Pain Score: 3 Pain Location: Back Subjective: Can I wear regular underwear today? Procedures/Interventions: ADLs/IADLs Self Care/Home Management (ADLs) Time Entry: 90 Pt in elevated supine upon arrival agreeable ADL. Vitals assessed see above. Pt without PUPP boots/heels elevated, pt reporting that they forgot to last night, educated on advocating for proper positioning to reduce risk of pressure injury. Pt bathed UB with S. Pt donned shirt with partial A for hiking down posteriorly while pt assumed semi long sit with B UE support on bed rail. Pt bathed LB with overall max A. Pt attempting to bathe corrina area, however requesting assist due to difficulty with thoroughness . Pt rolled toward R with partial A for flexing L knee to maintain log roll. Dep posterior hygiene, red areas noted on B inner thighs. RN notified and in to assess, instructed to apply barrier cream. Barrier cream applied. Pt questioning if she can wear regular underwear, educated that s josh varma was pulled, and pt with no bladder sensation, best to wear brief. Educated on more frequent brief checks to avoid skin break down, due to varma being pulled. Overall max A for LB dressing,assist to thread B Les, and pt able to hike over hips anteriorly, assist posteriorly. Pt rolled R><L partial A, for clarisa pad placement. Pt hoyered from bed>w/c. Once in chair B LEs isiah wrapp ed and positioned on leg rests. Pt ate breakfast with JACINTO for opening milk container. Pt able to verbalize strategies for reducing sophia of pressure injury including slide lying, and weight shifting inchair to redistribute pressure. Education provided on additional strategies for offloading heels. End of session pt's BP 111/74, HR 63. Pt reporting losing exercise therbanad, pt provided with new green theraband for carrying out HEP in downtime from therapy to continue to increase UB strength. Endof session pt seated in w/c with chair alarm on, and call doss in reach. OT Assessment OT Assessment OT Assessment Results: Decreased ADL status, Decreased endurance, Decreased sensation, Visual deficit, Decreased trunk control for functional activities, Impaired tone Prognosis: Good Evaluation/Treatment Tolerance: Patient tolerated treatment well Comments: Pt with 1 spasm when going from sit>supine in bed only. Pt with pain controlled throughout. Medical Staff Made Aware: Yes Comments: skin integrity, some red areas noted on B inner thighs (posterior), RN notified. OT Plan Plan Treatment Interventions: ADL retraining, Functional transfer training, UE strengthening/ROM, Endurance training, Equipment evaluation/education, Compensatory technique education, Continued evaluation OT Plan: Skilled OT OT Frequency : 5-7 days per week OT Duration of Sessions: 90 min per day OT Treatments per day: 1 time per day OT - Evaluation Status: Complete Equipment Recommended: (TBD) Barriers to Discharge: environemntal concerns, functional status, pt lives alone. 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 Dates: Start: 06/26/24 Expected End: 07/17/24 Goal: pt will be able to independently direct care, in order to perform toileting safely, while allowing greatest level of INDEPENDENCE (including DME use, txfer techniques, and strategies) Dates: Start: 06/26/24 Expected End: 07/17/24 Goal: Pt will tolerate 3/3 meals OOB Dates: Start: 06/26/24 Expected End: 07/17/24 Goal: Pt will perform LB dressing with partial A, use of LH ADAPTIVE EQUIPTMENT prn Dates: Start: 06/26/24 Expected End: 07/17/24 Goal: pt will perform toileting with overall max A. Dates: Start: 06/26/24 Expected End: 07/17/24 Goal: pt will don shirt with S, sitting unsupported. Dates: Start: 06/26/24 Expected End: 07/17/24 Description: Problem: OT Short Term Goals Dates: Start: 06/26/24 Goal: Pt will perform rolling R><L with use of log roll technique, partial A, for pressure relief. Dates: Start: 06/26/24 Expected End: 07/03/24 Goal: Pt will tolerate sitting OOB for 1/3 meals Dates: Start: 06/26/24 Expected End: 07/03/24 Goal: Pt will sit at EOB for 10 minutes, with no more than partial A for balance to increase Potter with EOB ADL Dates: Start: 06/26/24 Expected End: 07/03/24 Goal: Pt will verbalize 3 pressure relief techniques in order to reduce sophia of pressure injury Dates: Start: 06/26/24 Expected End: 07/03/24 Goal: Pt will perform oral hygiene w/c level, with JACINTO. Dates: Start: 06/26/24 Expected End: 07/03/24 Encounter Problems (Resolved) There are no resolved problems. Education Documentation Self Advocacy/Consumer Competency, taught by Ben Miller OT at 07/02/2024 11:59 AM. Learner: Patient Readiness: Acceptance Method: Explanation, Demonstration Response: Verbalizes Understanding, Demonstrated Understanding, Needs Reinforcement Skin Care/Pressure Ulcer Prevention, taught by Ben Miller OT at 07/02/2024 11:59 AM. Learner: Patient Readiness: Acceptance Method: Explanation, Demonstration Response: Verbalizes Understanding, Demonstrated Understanding, Needs Reinforcement ADL Training, taught by Ben Miller OT at 07/02/2024 11:59 AM. Learner: Patient Readiness: Acceptance Method: Explanation, Demonstration Response: Verbalizes Understanding, Demonstrated Understanding, Needs Reinforcement Precautions, taught by Ben Miller OT at 07/02/2024 11:59 AM. Learner: Patient Readiness: Acceptance Method: Explanation, Demonstration Response: Verbalizes Understanding, Demonstrated Understanding, Needs Reinforcement Body Mechanics, taught by Ben Miller OT at 07/02/2024 11:59 AM. Learner: Patient Readiness: Acceptance Method: Explanation, Demonstration Response: Verbalizes Understanding, Demonstrated Understanding, Needs Reinforcement Activity/Positioning, taught by Ben Miller OT at 07/02/2024 11:59 AM. Learner: Patient Readiness: Acceptance Method: Explanation, Demonstration Response: Verbalizes Understanding, Demonstrated Understanding, Needs Reinforcement Skin Care/Pressure Ulcer Prevention, taught by Ben Miller OT at 07/02/2024 11:59 AM. Learner: Patient Readiness: Acceptance Method: Explanation, Demonstration Response: Verbalizes Understanding, Demonstrated Understanding, Needs Reinforcement Teach precautions to protect skin integrity, taught by Ben Miller OT at 07/02/2024 11:59 AM. Learner: Patient Readiness: Acceptance Method: Explanation, Demonstration Response: Verbalizes Understanding, Demonstrated Understanding, Needs Reinforcement Teach perineal skin care, taught by Ben Miller OT at 07/02/2024 11:59 AM. Learner: Patient Readiness: Acceptance Method: Explanation, Demonstration Response: Verbalizes Understanding, Demonstrated Understanding, Needs Reinforcement Teach positioning to prevent injury, taught by Ben Miller OT at 07/02/2024 11:59 AM. Learner: Patient Readiness: Acceptance Method: Explanation, Demonstration Response: Verbalizes Understanding, Demonstrated Understanding, Needs Reinforcement Precautions, taught by Ben Miller OT at 07/02/2024 11:59 AM. Learner: Patient Readiness: Acceptance Method: Explanation, Demonstration Response: Verbalizes Understanding, Demonstrated Understanding, Needs Reinforcement Education Comments No comments found. Start/Stop Time OT Time Calculation OT Start Time: 0700 OT Stop Time: 0830 OT Time Calculation (min): 90 min Therapy Minutes: Occupational Therapy OT Individual: 90 * She Vigil RN - 07/02/2024 5:57 AM EST Goals: Identify possible barriers to meeting goals/advancing plan of care: Pt working toward rehab goals Stability of the patient: Moderately Unstable - Medium risk of patient condition declining or worsening End of Shift Summary: Denies pain. Varma cath d/c at 0530 per order. 500ml cloudy yellow foul smelling urine emptied from drainage bag. Bed alarm on. Bed locked/low. Call doss within reach. * Umm Wood NP - 07/01/2024 10:39 AM EST Images from the original note were not included. [facility] PROGRESS NOTE Date: 07/01/2024 Author: Umm Wood NP Patient ID: Yuly Montoya is a 68 y.o. female : 1955 MR#: [id number] SUBJECTIVE Subjective BP is 1 teens to 120s Denies headaches dizziness visual impairments She is moving her bowels and is with a Varma Improved left weakness c/o very little activity rt toes No bowel or bladder sensation Eating well Has a friend with a son who would like to attend this week ROS Constitutional :no fever chills , appetite fair, sleeping well HEENT: denies headaches Respiratory: denies shortness of breath, coughing or wheezing Cardiac: denies chest pain, palpitations, : No abd pain, no N/V. Genitourinary: denies any dysuria frequency urgency Musculoskeletal: No joint pain ,back pain Allergies Patient has no known allergies. Current Medications: acetaminophen, 975 mg, oral, q8h EDEN bisacodyL, 10 mg, rectal, q24h doxepin, 100 mg, oral, Nightly DULoxetine, 60 mg, oral, Daily famotidine, 20 mg, oral, Daily gabapentin, 400 mg, oral, q8h EDEN heparin (UFH), 5,000 Units, subcutaneous, q8h EDEN metoprolol succinate, 25 mg, oral, Daily traZODone, 75 mg, oral, Nightly PRN medications: acetaminophen, ALPRAZolam, aluminum-magnesium hydroxide- simethicone, bisacodyL, docusate sodium, magnesium hydroxide, oxyCODONE OBJECTIVE Vitals: 06/30/24 1539 07/01/24 0408 07/01/24 0545 07/01/24 0903 BP: 120/65 129/63 124/73 118/67 BP Location: Left arm Left arm Patient Position: Lying Lying Pulse: 59 58 64 62 Resp: 17 17 16 Temp: 36.8 ??C (98.2 ??F) 36.9 ??C (98.4 ??F) 36.4 ??C (97.5 ??F) TempSrc: Oral Oral SpO2: 100% 99% 99% 98% Weight: PHYSICAL EXAM General-NAD, cognitively- intact , AAO- ??3 , appears stated age, appears comfortable Heart-RRR, normal S1, S2, no clicks, heaves, murmurs, splits, gallops, rubs Lungs-CTA B no adventitious breath sounds. Abdomen-S NT BS ??4, no distention, organomegaly, no palpable masses. Extremities-M AE, no CCE, cap refill brisk, DPP Neuromuscular-right lower extremity with minimal movement of her digits no sensation up to her waist Antogravitity left foot Back incision clean sand dry today,no serous dischargeopen to air Integumentary- turgor good, skin warm dry intact, no rashes LABS HEMATOLOGY Lab Results Component Value Date WBC 9.8 06/27/2024 HGB 10.4 (L) 06/27/2024 HCT 31.5 (L) 06/27/2024 MCV 91.0 06/27/2024 PLT 177 06/27/2024 CHEMISTRY Lab Results Component Value Date GLUCOSE 98 06/28/2024 NA 131 (L) 06/28/2024 K 4.2 06/28/2024 CO2 31 06/28/2024 CL 98 06/28/2024 BUN 18 06/28/2024 CREATININE 0.46 (L) 06/28/2024 EGFR 105 06/28/2024 CALCIUM 8.5 06/28/2024 MG 1.9 06/27/2024 PHOS 2.7 06/15/2024 ANIONGAP 2 (L) 06/28/2024 Imaging: ASSESSMENT & PLAN Thoracic spinal stenosis, Hx spinal mass, s/p 2 thoracic decompression surgeries 06/11 she was transferred to [facility] S/p T5-T8 fusion and T5-7 decompression T6-7 facetectomy and removal of mass. Dr. Hall Biopsy- Fragments of benign bone and cartilage with focus of necrotic bone. No malignancy identified. F/u with neurosurgery after discharge Patient has left foot plantarflexion and dorsiflexion as well as improved sensation on the left lower extremity Sensation on the right lower extremity -minimal toe movement neurogenic bowel and bladder Pain management with gabapentin 800 twice daily reduced to 400 3 times daily methylprednisone 4 mg Medrol Dosepak taper off tizanidine due to hypotension Treatment per PMR reCommend Betadine to wound open to air offload dry DSD when needed no Mepilex Neurogenic bowel and bladder Varma catheter. Fully exchanged at [facility] on or about 06/11 + pyuria and was treated with Macrobid On bowel regimen/program Patient reports recent diarrhea loose stools which she attributes to aggressive bowel management prior to that normal bowel movements History of cervical spondylolisthesis with central canal stenosis Leukocytosis Mild 12,000--> RESOLVED Atrial flutter s/p ablation Recent bradycardia now on lower dose of BB Toprol XL 25 mg Rate controlled in the 60s monitor Hypertension Recent soft BP's /Hypotension Toprol XL 25 mg hold parameters Triamterene hydrochlorothiazide hydralazine and Diovan DC'd rec IVF. offTizanidine Pressure is elevated occasionally since multiple med changes will follow for now hyponatremia Recent diarrhea Clinically dry. Diarrhea resolved Na improved was 124--> now 129 -> 131 S/p gentle ivf Lymphedema acute on chronic special stockings at home. Using Isiah wraps bilaterally. No pain to the extremities. Also on prednsione with recent IVF Anxiety Mood stable Maintain on doxepin 100 mg nightly Duloxetine 60 mg Trazodone 75 mg nightly HALLE - no hypoxia DAILY CARE CHECKLIST * Gardenia Car RN - 07/01/2024 7:15 AM EST This nurse, Gardenia Car found a black vape pen in the patient???s room. Patient denied that itis not her own vape; but admitted that this vape pen is her friend, Clare. The patient admitted thather friend, Clare, shared her vaped with patient a few times since she was admitted. This nurse taught the patient the important of do not smoking to prevent short of breath, heavy cough, and/or lung disease and complicated outcomes. This nurse, follow the policy in the unit of do not smoke, took the vape pen and leave in the medication room with patient's name. * JOCELYN Banks - 06/30/2024 1:01 PM EST [facility] Occupational Therapy Treatment Note 06/30/24 Patient: Yuly Montoya : 1955 Age: 68 y.o. Gender: female Diagnosis: Lower extremity weakness Primary Rehab (Etiologic) Diagnosis: Patient Active Problem List Diagnosis Lumbar spondylosis Onychomycosis Pain in toe Sacroiliitis (CMS/HCC) Spondylolisthesis Cervical spondylosis Spinal stenosis of thoracic region Thoracic spinal stenosis Age-related macular degeneration Anxiety Atrial flutter (CMS/HCC) Obstructive sleep apnea syndrome Deep vein thrombosis (DVT) of lower extremity (CMS/HCC) History of artificial joint Hypertension Osteoarthritis of hip Peripheral venous insufficiency S/P tonsillectomy and adenoidectomy Bradycardia Thoracic myelopathy Lower extremity weakness PMH: Past Medical History: Diagnosis Date Adverse effect of anesthesia several hrs after sx pt had Panic attack Anxiety Arthritis Hypertension Irregular heart beat Joint pain Lymphedema Macular degeneration PSH: Past Surgical History: Procedure Laterality Date ABLATION OF DYSRHYTHMIC FOCUS BACK SURGERY N/A s/p L2-3 decompression 09/13/[address] Markham, s/p lumbar discectomy Dr. Bales, L3-4, L4-[address] Yarbrough February 2012, subsequent L4-S1 fusion in [place] with Dr. Cagle. CARPAL TUNNEL RELEASE Right TONSILLECTOMY ADENOIDECTOMY, BILATERAL MYRINGOTOMY AND TUBES TOTAL HIP ARTHROPLASTY Left 2022 TOTAL KNEE ARTHROPLASTY Bilateral Allergies: has No Known Allergies. Precautions: Precautions Medical Precautions: Fall Risk Safety Interventions: Call doss within reach RUE Weight Bearing Status: Full LUE Weight Bearing Status: Full RLE Weight Bearing Status: Full LLE Weight Bearing Status: Full Orthopedic Precautions: Back Precautions Vitals: BP: 129/80 Heart Rate: 56 Pain: Pain Assessment Pain Assessment: No/denies pain Subjective: There is a concern about how I'm going to go home to the [facility] that doesn't have an elevator. Procedures/Interventions: Pt semi-supine with nursing at start of session, amenable to therapy. Pt undressed UB with partial A for back. Pt completed UB bathing with supervision at bed-level. Pt completed LB bathing with sub A at bed level, pt able to completed some bathing of corrian area. Pt dressed UB with min A for back. Pt completed B log rolling with min A for LE, nursing and BANKS noticed some red indentation from bed pad, no other issues with skin integrity at this time. Nursing removed dressing and applied betadine, no new dressing placed per PA recommendation. Brief and barrier cream applied at this time, pt completed B log rolling with min A. Pt dressed LB with S sub A for threading catheter and legs, patientable to assist with some pulling up of pants and able to log roll with min A. Pt dependent for doffing and donning socks at this time. Pt transferred via clarisa to w/c, weight taken by PCT at this time. Pt completed oral hygiene and grooming sitting in w/c at sink independently at this time, pt ableto maneuver w/c around room with no A. Pt participated in there-ex see below for details. Pt returned to room, requesting soup from home be heated up. Pt ate independently at end of session, call doss and chair alarm in place at end of session. ADLs/IADLs Self Care/Home Management (ADLs) Time Entry: 60 ADL/ IADL Performed: Grooming, Oral Hygiene, Bathing, Dressing Therapeutic Exercise Therapeutic Exercise Time Entry: 30 Therapeutic Exercise Activity 1: Pt completed w/c mobility with supervision from room to gym, v cues provided for L UE protection regarding navigating obstacles. Pt participated in 10 min of tabletopUE bike without rest break in order to increase UE endurance during fxl transfers. Pt completed w/cmobility back to room with supervision, no challenges navigating obstacles. Pt reports some UE fatigue at end of session. OT Assessment OT Assessment OT Assessment Results: Decreased ADL status, Decreased endurance, Decreased sensation, Visual deficit, Decreased trunk control for functional activities, Impaired tone Prognosis: Good Evaluation/Treatment Tolerance: Patient tolerated treatment well Comments: Pt with 1 spasm when going from sit>supine in bed only. Pt demo increased sitting tolerance and repositioning today. Medical Staff Made Aware: Yes Comments: skin integrity, some redness noted indented from bed pad, dressing removal. OT Plan Plan Treatment Interventions: ADL retraining, Functional transfer training, UE strengthening/ROM, Endurance training, Equipment evaluation/education, Compensatory technique education, Continued evaluation OT Plan: Skilled OT OT Frequency : 5-7 days per week OT Duration of Sessions: 90 min per day OT Treatments per day: 1 time per day OT - Evaluation Status: Complete Equipment Recommended: (TBD) Barriers to Discharge: environemntal concerns, functional status, pt lives alone. Goals: Encounter Problems Encounter Problems (Active) Template: Occupational Therapy Problem: OT Assisted Goals Dates: Start: 06/26/24 Goal: pt will improve dynamic sitting balance to S, for up to 15 minutes, while performing UB ADL. Dates: Start: 06/26/24 Expected End: 07/17/24 Goal: pt will be able to independently direct care, in order to perform toileting safely, while allowing greatest level of INDEPENDENCE (including DME use, txfer techniques, and strategies) Dates: Start: 06/26/24 Expected End: 07/17/24 Goal: Pt will tolerate 3/3 meals OOB Dates: Start: 06/26/24 Expected End: 07/17/24 Goal: Pt will perform LB dressing with partial A, use of LH ADAPTIVE EQUIPTMENT prn Dates: Start: 06/26/24 Expected End: 07/17/24 Goal: pt will perform toileting with overall max A. Dates: Start: 06/26/24 Expected End: 07/17/24 Goal: pt will don shirt with S, sitting unsupported. Dates: Start: 06/26/24 Expected End: 07/17/24 Description: Problem: OT Short Term Goals Dates: Start: 06/26/24 Goal: Pt will perform rolling R><L with use of log roll technique, partial A, for pressure relief. Dates: Start: 06/26/24 Expected End: 07/03/24 Goal: Pt will tolerate sitting OOB for 1/3 meals Dates: Start: 06/26/24 Expected End: 07/03/24 Goal: Pt will sit at EOB for 10 minutes, with no more than partial A for balance to increase Potter with EOB ADL Dates: Start: 06/26/24 Expected End: 07/03/24 Goal: Pt will verbalize 3 pressure relief techniques in order to reduce sophia of pressure injury Dates: Start: 06/26/24 Expected End: 07/03/24 Goal: Pt will perform oral hygiene w/c level, with JACINTO. Dates: Start: 06/26/24 Expected End: 07/03/24 Encounter Problems (Resolved) There are no resolved problems. Education Documentation Skin Care/Pressure Ulcer Prevention, taught by JOCELYN Banks at 06/30/2024 1:01 PM. Learner: Patient Readiness: Acceptance Method: Explanation, Demonstration Response: Verbalizes Understanding, Demonstrated Understanding ADL Training, taught by JOCELYN Banks at 06/30/2024 1:01 PM. Learner: Patient Readiness: Acceptance Method: Explanation, Demonstration Response: Verbalizes Understanding, Demonstrated Understanding Home Exercise Program, taught by JOCELYN Banks at 06/30/2024 1:01 PM. Learner: Patient Readiness: Acceptance Method: Explanation, Demonstration Response: Verbalizes Understanding, Demonstrated Understanding Precautions, taught by JOCELYN Banks at 06/30/2024 1:01 PM. Learner: Patient Readiness: Acceptance Method: Explanation, Demonstration Response: Verbalizes Understanding, Demonstrated Understanding Body Mechanics, taught by JOCELYN Banks at 06/30/2024 1:01 PM. Learner: Patient Readiness: Acceptance Method: Explanation, Demonstration Response: Verbalizes Understanding, Demonstrated Understanding Education Comments No comments found. Start/Stop Time OT Time Calculation OT Start Time: 0930 OT Stop Time: 1100 OT Time Calculation (min): 90 min Therapy Minutes: Occupational Therapy OT Individual: 90 * Belen Mcnulty, PT - 06/30/2024 1:00 PM EST [facility] Physical Therapy Treatment Note 06/30/2024 Patient: Yuly Montoya : 1955 Age: 68 y.o. Gender: female Primary Language: Tristanian Diagnosis: Lower extremity weakness Past Medical History: Diagnosis Date Adverse effect of anesthesia several hrs after sx pt had Panic attack Anxiety Arthritis Hypertension Irregular heart beat Joint pain Lymphedema Macular degeneration Past Surgical History: Procedure Laterality Date ABLATION OF DYSRHYTHMIC FOCUS BACK SURGERY N/A s/p L2-3 decompression 09/13/[address] Markham, s/p lumbar discectomy Dr. Bales, L3-4, L4-[address] Yarbrough February 2012, subsequent L4-S1 fusion in [place] with Dr. Cagle. CARPAL TUNNEL RELEASE Right TONSILLECTOMY ADENOIDECTOMY, BILATERAL MYRINGOTOMY AND TUBES TOTAL HIP ARTHROPLASTY Left 2022 TOTAL KNEE ARTHROPLASTY Bilateral Allergies: has No Known Allergies. Precautions: Medical Precautions: Fall Risk Safety Interventions: Call doss within reach RUE Weight Bearing Status: Full LUE Weight Bearing Status: Full RLE Weight Bearing Status: Full LLE Weight Bearing Status: Full Orthopedic Precautions: Back Precautions NURSING RECOMMENDATIONS Bed Mobility: min A rolling, bed rails up, spinal precautions Transfers: clarisa Ambulation: none SUBJECTIVE Pt report: I feel like my balance is better than it was yesterday. Pain: Pain Assessment: No/denies pain OBJECTIVE General Observation: Pt sitting in wheelchair upon arrival to session, agreeable to PT session. Procedure/Treatment: Neuromuscular Reeducation: Balance/Neuromuscular Re-Education Neuromuscular Re-Education Time Entry: 90 Pt sitting in wheelchair upon arrival to session, agreeable to PT session. Supervision for wheelchair mobility from room down to therapy gym. maxAx1 and supervision x1 slide board transfer from wheelchair to mat table, level surface. Pt needing assist with arm rest management. Pt leaning to side during slide board placement, needing assist for LE uplift for slideboard placement. Cues to lean forward into PT and use arms for uplift during transfer. BLEs blocked and repositioned throughout. Completed in x3 scoots. Completing static sitting balance exercise with no UE support 3x30 seconds, steadying assist. Dynamic reaching exercise reaching with unilateral UE to right side and left side placin g cones. no twisting, completing within spinal precautions. Completing with other UE resting in lap, steadying to partial A, pt reaching to grab onto mat table when feeling loss of balance. Increaseddifficulty with RUE. Completion righting reactions exercise providing anterior, posterior, and lateral perturbations with pt tasked to reach to stabilize to reposition to midline. Improving speed of reactions, though needing up to partial A to correct for LOB at times. Completion slide board transfer from mat table to wheelchair with maxAx1. Same technique as described above. Completion 1x10 wheelchair push ups, minimal clearance. Cues to breathe as pt noted to be holding breath. Supervision wheelchair mobility back to room. Slide board from wheelchair to edge of bed with maxAx1 and partial Ax1. maxAx1 for sit to supine. Pt assisting through using UEs to boost up in bed with assist x2. Pt wanting to stay on back, stating she will turn to side when visitors leave. Education on importance of pressure relief for skin health. Pupp boots donned for skin protection. Bed alarm on, call doss given, all needs met. Education: Education Documentation Activity/Positioning, taught by Belen Mcnulty, PT at 06/30/2024 2:49 PM. Learner: Patient Readiness: Acceptance Method: Explanation, Demonstration Response: Verbalizes Understanding, Demonstrated Understanding Skin Care/Pressure Ulcer Prevention, taught by Belen Mcnulty, PT at 06/30/2024 2:49 PM. Learner: Patient Readiness: Acceptance Method: Explanation, Demonstration Response: Verbalizes Understanding, Demonstrated Understanding Fall Precautions, taught by Belen Mcnulty PT at 06/30/2024 2:49 PM. Learner: Patient Readiness: Acceptance Method: Explanation, Demonstration Response: Verbalizes Understanding, Demonstrated Understanding Precautions, taught by Belen Mcnulty, PT at 06/30/2024 2:49 PM. Learner: Patient Readiness: Acceptance Method: Explanation, Demonstration Response: Verbalizes Understanding, Demonstrated Understanding Mobility Training, taught by Belen Mcnulty, PT at 06/30/2024 2:49 PM. Learner: Patient Readiness: Acceptance Method: Explanation, Demonstration Response: Verbalizes Understanding, Demonstrated Understanding Education Comments No comments found. ASSESSMENT PT Assessment PT Assessment Results: Decreased strength, Decreased endurance, Impaired balance, Decreased mobility, Decreased coordination, Impaired sensation, Decreased skin integrity, Orthopedic restrictions Prognosis: Fair Evaluation/Treatment Tolerance: Patient tolerated treatment well Comments: Pt with good tolerance to treatment session. Slide board transfers with maxAx1 and supervision x1 in therapy gym, needing increased assistance from wheelchair to bed. Will continue to benefit from skilled physical therapy. Equipment: TBD Plan of Care Plan Treatment/Interventions: Functional transfer training, LE strengthening/ROM, Patient/family training, Bed mobility, Balance training, Gait training PT Plan: Skilled PT PT Frequency: 5 days per week PT Duration of Sessions: 90 min per day PT Treatments per day: 1 time per day PT Discharge Recommendations: (TBD) Equipment Recommended: TBD Problems/Goals Goals: Encounter Problems Encounter Problems (Active) Template: Physical Therapy Problem: PT Assisted Goals Dates: Start: 06/26/24 Goal: Mod I rolling Dates: Start: 06/26/24 Expected End: 07/17/24 Goal: Partial A transfers LRAD with pt directing care Dates: Start: 06/26/24 Expected End: 07/17/24 Goal: Sit <> supine partial A, pt directing care adhering to spinal precautions Dates: Start: 06/26/24 Expected End: 07/17/24 Goal: Mod I wheelchair mobility x150' Dates: Start: 06/26/24 Expected End: 07/17/24 Goal: Pt will sit independently x15 min Dates: Start: 06/26/24 Expected End: 07/17/24 Problem: PT Short Term Goals Dates: Start: 06/26/24 Goal: Supervision rolling Dates: Start: 06/26/24 Expected End: 07/03/24 Goal: Sit <> supine max Ax1 Dates: Start: 06/26/24 Expected End: 07/03/24 Goal: Max A + partial A slideboard transfers Dates: Start: 06/26/24 Expected End: 07/03/24 Goal: Supervision wheelchair mobility x100' Dates: Start: 06/26/24 Expected End: 07/03/24 Goal: Pt will sit with UE support x5 min supervision/steadying A Dates: Start: 06/26/24 Expected End: 07/03/24 Encounter Problems (Resolved) There are no resolved problems. Session Start/Stop Time: 1300 1430 Therapy Minutes Physical Therapy PT Individual: 90 * Umm Wood NP - 06/30/2024 11:04 AM EST Images from the original note were not included. [facility] PROGRESS NOTE Date: 06/30/2024 Author: Umm Wood NP Patient ID: Yuly Montoya is a 68 y.o. female : 1955 MR#: [id number] SUBJECTIVE Subjective Nurse notes patient's BP is in the 119-160 range she was 152 overnight patient had recent BP medication reductions Denies headaches dizziness visual impairments She is moving her bowels and is with a Varma She states her lower extremity on the left is starting to move fairly well she does have increased sensation as well right lower extremity she is having difficulty with any range of motion she is starting to note some movement of her digits on the right foot no antigravity movement otherwise ROS Constitutional :no fever chills , appetite fair, sleeping well HEENT: denies headaches Respiratory: denies shortness of breath, coughing or wheezing Cardiac: denies chest pain, palpitations, : No abd pain, no N/V. Genitourinary: denies any dysuria frequency urgency Musculoskeletal: No joint pain ,back pain Allergies Patient has no known allergies. Current Medications: acetaminophen, 975 mg, oral, q8h EDEN bisacodyL, 10 mg, rectal, q24h doxepin, 100 mg, oral, Nightly DULoxetine, 60 mg, oral, Daily famotidine, 20 mg, oral, Daily gabapentin, 400 mg, oral, q8h EDEN heparin (UFH), 5,000 Units, subcutaneous, q8h EDEN metoprolol succinate, 25 mg, oral, Daily sodium chloride, 3 mL, intravenous, q8h EDEN traZODone, 75 mg, oral, Nightly sodium chloride, 75 mL/hr, Last Rate: 75 mL/hr (06/27/24 1653) PRN medications: acetaminophen, ALPRAZolam, aluminum-magnesium hydroxide- simethicone, bisacodyL, docusate sodium, magnesium hydroxide, oxyCODONE OBJECTIVE Vitals: 06/29/24 0811 06/29/24 1604 06/29/24 2300 06/30/24 0923 BP: 119/52 (!) 162/85 128/50 111/65 BP Location: Left arm Patient Position: Lying Pulse: 80 62 78 63 Resp: 18 17 16 Temp: 36.5 ??C (97.7 ??F) 36.8 ??C (98.2 ??F) 36.2 ??C (97.2 ??F) 36.5 ??C (97.7 ??F) TempSrc: Oral SpO2: 100% 100% 100% 98% Weight: PHYSICAL EXAM General-NAD, cognitively- intact , AAO- ??3 , appears stated age, appears comfortable Heart-RRR, normal S1, S2, no clicks, heaves, murmurs, splits, gallops, rubs Lungs-CTA B no adventitious breath sounds. Abdomen-S NT BS ??4, no distention, organomegaly, no palpable masses. Extremities-M AE, no CCE, cap refill brisk, DPP Neuromuscular-right lower extremity with minimal movement of her digits no sensation up to her waist on the right left lower extremity with increase sensation to the light touch temperature patient has antigravity dorsi and plantarflexion is wiggling the toes some engagement of her quads also notedback incision is minimally erythematous along the staple margin the distal pole approximately 3 inches up has some serous discharge and appears to be exhibiting increased moisture due to current dressing Integumentary- turgor good, skin warm dry intact, no rashes LABS HEMATOLOGY Lab Results Component Value Date WBC 9.8 06/27/2024 HGB 10.4 (L) 06/27/2024 HCT 31.5 (L) 06/27/2024 MCV 91.0 06/27/2024 PLT 177 06/27/2024 CHEMISTRY Lab Results Component Value Date GLUCOSE 98 06/28/2024 NA 131 (L) 06/28/2024 K 4.2 06/28/2024 CO2 31 06/28/2024 CL 98 06/28/2024 BUN 18 06/28/2024 CREATININE 0.46 (L) 06/28/2024 EGFR 105 06/28/2024 CALCIUM 8.5 06/28/2024 MG 1.9 06/27/2024 PHOS 2.7 06/15/2024 ANIONGAP 2 (L) 06/28/2024 Imaging: ASSESSMENT & PLAN Thoracic spinal stenosis, Hx spinal mass, s/p 2 thoracic decompression surgeries 06/11 she was transferred to [facility] S/p T5-T8 fusion and T5-7 decompression T6-7 facetectomy and removal of mass. Dr. Hall Biopsy- Fragments of benign bone and cartilage with focus of necrotic bone. No malignancy identified. F/u with neurosurgery after discharge Patient has left foot plantarflexion and dorsiflexion as well as improved sensation on the left lower extremity Sensation on the right lower extremity -minimal toe movement neurogenic bowel and bladder Pain management with gabapentin 800 twice daily reduced to 400 3 times daily methylprednisone 4 mg Medrol Dosepak taper off tizanidine due to hypotension Treatment per PMR reCommend Betadine to wound open to air offload dry DSD when needed no Mepilex Neurogenic bowel and bladder Varma catheter. Fully exchanged at [facility] on or about 06/11 + pyuria and was treated with Macrobid On bowel regimen/program Patient reports recent diarrhea loose stools which she attributes to aggressive bowel management prior to that normal bowel movements History of cervical spondylolisthesis with central canal stenosis Leukocytosis Mild 12,000--> RESOLVED Likely reactive to steroids afebrile Is not appear to be infected acutely Atrial flutter s/p ablation Recent history of bradycardia now on lower dose of BB Toprol XL 25 mg Rate controlled in the 60s monitor Hypertension Recent soft BP's /Hypotension Toprol XL 25 mg hold parameters Triamterene hydrochlorothiazide hydralazine and Diovan DC'd rec IVF. Agree with d/c Tizanidine Pressure is elevated occasionally since multiple med changes will follow for now hyponatremia Likely hypovolemia hyponatremia due to diarrhea and BP meds. Clinically dry. Diarrhea resolved Na improved was 124--> now 129 -> 131 S/p gentle ivf Lymphedema acute on chronic special stockings at home. In the meantime Isiah wraps bilaterally. No pain to the extremities. Also on prednsione with recent IVF Anxiety Mood stable Maintain on doxepin 100 mg nightly Duloxetine 60 mg Trazodone 75 mg nightly DAILY CARE CHECKLIST * Darline Lara, DO - 06/29/2024 2:44 PM EST Images from the original note were not included. [facility] Daily Progress Note Patient name: Yuly Montoya : 1955 SUBJECTIVE: Patient seen and examined at bedside today. No acute events overnight. Denies headaches, dizziness,shortness of breath, chest pain, nausea, constipation. Reports having BM with use of suppository daily. States that bloating has improved. Varma in place. Reports that pain is controlled. Participating in therapies: Max A + steadying A slideboard transfer, assist for placing/removing board and supporting trunk due to poor trunk control. OBJECTIVE: Vitals: 06/28/24 1242 06/28/24 1540 06/29/24 0530 06/29/24 0811 BP: 113/57 (!) 152/75 121/54 119/52 BP Location: Left arm Left arm Patient Position: Lying Lying Pulse: 69 59 62 80 Resp: 16 16 18 Temp: 36.8 ??C (98.2 ??F) 36.7 ??C (98 ??F) 36.5 ??C (97.7 ??F) TempSrc: Oral Oral SpO2: 100% 100% 100% 100% Weight: Physical Examination: General: Alert, in no acute cardiopulmonary distress. Mental Status: Oriented to person, place and time. Normal affect. Head: Normocephalic. Eyes: Pupils are equal, round and reactive to light. Extraocular muscles intact. Ear, Nose and Throat: Oropharynx clear, mucous membranes moist. Ears and nose without masses, lesions or deformities. Neck: Supple, Trachea midline. Respiratory: Clear to auscultation and percussion. No wheezing, rales or rhonchi. Cardiovascular: Heart sounds normal. No thrills. Regular rate and rhythm, no murmurs, rubs or gallops. Gastrointestinal: Abdomen soft, non-tender, non-distended. Normal bowel sounds. Genitourinary: +Varma catheter in place with clear yellow urine in bag. Neurologic: b/l LE weakness. Decreased ssensation to b/l LE R>l and decreased sensation to abd Skin: No rashes or lesions. No petechiae or purpura. No edema. Musculoskeletal: RLE 0/5 strength. LLE 0/5 hip flexion and knee extension. LLE 1/5 left dorsiflexion and plantarflexion. CURRENT INPATIENT MEDICATIONS: Current Facility-Administered Medications: acetaminophen (TYLENOL) tablet 650 mg, 650 mg, oral, q6h PRN, THEODORA Lawson, 650 mg at 06/26/24 1508 acetaminophen (TYLENOL) tablet 975 mg, 975 mg, oral, q8h EDEN, Darline Lara DO, 975 mg at 06/29/24 1435 ALPRAZolam (XANAX) tablet 0.5 mg, 0.5 mg, oral, Nightly PRN, THEODORA Lawson, 0.5 mg at 06/28/24 2119 aluminum-magnesium hydroxide-simethicone (MAALOX) 200-200-20 mg/5 mL suspension 30 mL, 30 mL, oral,q4h PRN, THEODORA Lawson bisacodyL (DULCOLAX) suppository 10 mg, 10 mg, rectal, Daily PRN, THEODORA Lawson bisacodyL (DULCOLAX) suppository 10 mg, 10 mg, rectal, q24h, Darline Lara, DO, 10 mg at 06/28/24 194 docusate sodium (COLACE) capsule 100 mg, 100 mg, oral, BID PRN, Darline Lara DO doxepin (SINEquan) capsule 100 mg, 100 mg, oral, Nightly, THEODORA Lawson, 100 mg at 06/28/24 211 DULoxetine (CYMBALTA) DR capsule 60 mg, 60 mg, oral, Daily, THEODORA Lawson, 60 mg at 06/29/24 0858 famotidine (PEPCID) tablet 20 mg, 20 mg, oral, Daily, THEODORA Lawson, 20 mg at 06/29/24 0857 gabapentin (NEURONTIN) capsule 400 mg, 400 mg, oral, q8h EDEN, Darline Lara DO, 400 mg at 06/29/24 1435 heparin (UFH) injection 5,000 Units, 5,000 Units, subcutaneous, q8h EDEN, THEODORA Lawson, 5,000Units at 06/29/24 1436 magnesium hydroxide (MILK OF MAGNESIA) 400 mg/5 mL suspension 30 mL, 30 mL, oral, Daily PRN, THEODORA Lawson methylPREDNISolone (MEDROL) tablet 4 mg, 4 mg, oral, Daily, THEODORA Lawson, 4 mg at 06/29/24 0857 metoprolol succinate (TOPROL-XL) 24 Hour tablet 25 mg, 25 mg, oral, Daily, THEODORA Pope, 25mg at 06/29/24 0857 oxyCODONE (ROXICODONE) immediate release tablet 5 mg, 5 mg, oral, q6h PRN, Darline Lara DO,5 mg at 06/29/24 1436 sodium chloride 0.9 % flush 3 mL, 3 mL, intravenous, q8h EDEN, Darline Lara DO, 3 mL at 06/29/24 1436 sodium chloride 0.9 % infusion, 75 mL/hr, intravenous, Continuous, THEODORA Pope, Last Rate:75 mL/hr at 06/27/24 1653, 75 mL/hr at 06/27/24 1653 traZODone (DESYREL) tablet 75 mg, 75 mg, oral, Nightly, THEODORA Lawson, 75 mg at 01/09/25 2121 LABS: Lab Results Component Value Date WBC 9.8 06/27/2024 RBC 3.50 (L) 06/27/2024 HGB 10.4 (L) 06/27/2024 HCT 31.5 (L) 06/27/2024 MCV 91.0 06/27/2024 MCHC 33.0 06/27/2024 RDW 15.3 (H) 06/27/2024 PLT 177 06/27/2024 MPV 9.9 06/27/2024 NRBC 0.0 06/27/2024 DIFF Lab Results Component Value Date LYMPHOPCT 11.0 06/26/2024 NEUTROABS 8.99 (H) 06/26/2024 LYMPHSABS 1.40 06/26/2024 MONOABS 1.86 (H) 06/26/2024 EOSABS 0.10 06/26/2024 BASOSABS 0.03 06/26/2024 IMMGRANABS 0.35 (H) 06/26/2024 RETIC No results found for: RETIC , RETICCTPCT Lab Results Component Value Date NA 131 (L) 06/28/2024 K 4.2 06/28/2024 CL 98 06/28/2024 CO2 31 06/28/2024 GLUCOSE 98 06/28/2024 BUN 18 06/28/2024 CREATININE 0.46 (L) 06/28/2024 CALCIUM 8.5 06/28/2024 PROT 5.0 (L) 06/27/2024 ALBUMIN 2.9 (L) 06/27/2024 BILITOT 0.7 06/27/2024 AST 19 06/27/2024 ALT 22 06/27/2024 PHOS 2.7 06/15/2024 MG 1.9 06/27/2024 ALKPHOS 82 06/27/2024 EGFR 105 06/28/2024 IMPRESSION & PLAN: #Impaired mobility and self care -Secondary to thoracic myelopathy -Continue with PT, OT, and nursing care #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 -s/p T5-T8 fusion and T5-7 decompression T6-7 facetectomy and removal of mass (non malignant) by [facility] at [facility] -Betadine to surgical incision daily and leave open to air -continue therapies -Methylprednisolone 4 mg daily until 07/01/2024 -Tizanidine 2 mg daily 06/26 held due to hypotension --> discontinued on 06/27 due to hypotension -f/u NSG after discharge #Pain management -Tylenol 975mg Q8H -Gabapentin 800 mg BID --> changed to 400mg Q8H on 06/27 due to hypotension -Oxycodone 5mg Q6H PRN #Hypotension -will give additional IVF on 06/27 -medications adjusted as outlined below -monitor #Hypertension -Hydralazine 75 mg BID discontinued 06/27 due to hypotension -Dyazide 37.5-25 mg daily discontinued 06/26 due to hypotension -Valsartan 320 mg daily discontinued 06/26 due to hypotension -Metoprolol succinate 25 mg daily with holding parameters #Anxiety -Doxepin 100 mg nightly -Duloxetine 60 mg daily -Trazodone 75 mg nightly -Xanax 0.5mg QHS PRN #GERD -Famotidine 20 mg daily #Hyponatremia -sodium 124 on 06/26 --> 129 on 06/27 --> 131 on 06/28 -continue IVF -monitor with routine labs #Neurogenic bladder -Varma catheter in place #Neurogenic bowel -suppository daily at 1800 and transfer to [facility] -last BM 06/28 -patient denies incontinence DVT ppx: Heparin 5000 units SQ TID * Vero Wilson OT - 06/29/2024 2:21 PM EST [facility] Occupational Therapy Treatment Note 06/29/24 Patient: Yuly Montoya : 1955 Age: 68 y.o. Gender: female Diagnosis: Lower extremity weakness Primary Rehab (Etiologic) Diagnosis: Patient Active Problem List Diagnosis Lumbar spondylosis Onychomycosis Pain in toe Sacroiliitis (CMS/HCC) Spondylolisthesis Cervical spondylosis Spinal stenosis of thoracic region Thoracic spinal stenosis Age-related macular degeneration Anxiety Atrial flutter (CMS/HCC) Obstructive sleep apnea syndrome Deep vein thrombosis (DVT) of lower extremity (CMS/HCC) History of artificial joint Hypertension Osteoarthritis of hip Peripheral venous insufficiency S/P tonsillectomy and adenoidectomy Bradycardia Thoracic myelopathy Lower extremity weakness PMH: Past Medical History: Diagnosis Date Adverse effect of anesthesia several hrs after sx pt had Panic attack Anxiety Arthritis Hypertension Irregular heart beat Joint pain Lymphedema Macular degeneration PSH: Past Surgical History: Procedure Laterality Date ABLATION OF DYSRHYTHMIC FOCUS BACK SURGERY N/A s/p L2-3 decompression 09/13/[address] Markham, s/p lumbar discectomy Dr. Bales, L3-4, L4-[address] Yarbrough February 2012, subsequent L4-S1 fusion in [place] with Dr. Cagle. CARPAL TUNNEL RELEASE Right TONSILLECTOMY ADENOIDECTOMY, BILATERAL MYRINGOTOMY AND TUBES TOTAL HIP ARTHROPLASTY Left 2022 TOTAL KNEE ARTHROPLASTY Bilateral Allergies: has No Known Allergies. Precautions: Precautions Medical Precautions: Fall Risk Safety Interventions: Call doss within reach, Chair alarm RUE Weight Bearing Status: Full LUE Weight Bearing Status: Full RLE Weight Bearing Status: Full LLE Weight Bearing Status: Full Orthopedic Precautions: Back Precautions Vitals: Pain: Pain Assessment Pain Assessment: 0-10 Pain Score: 4 Subjective: Hold on, I am having 1 spasm Procedures/Interventions: ADLs/IADLs Self Care/Home Management (ADLs) Time Entry: 90 Upon arrival, pt sitting with HOB elevated in bed sleeping. Pt awoke when name called, agreeable toparticipate in skilled OT session. Pt returned to supine with 1 spasm noted. Pt incontinent of bowel. Rolling steadying to mod A for LE positioning. Total A for hygiene. This therapist noted cathetercord on R LE leaving indent. No open sores and post shower, redness disappeared. Education providedon body positioning and directing care to others taking care of pt. Pt verbalizing understanding. Clarisa to bariatric drop arm commode. Dep transport to shower room. With B knees supported on wall to decrease risk of spasm. Pt completed total body bathing seated entirety of the shower mod A, requiring assistance with B LE and buttocks. Pt with R lateral lean throughout entirety of shower requiringmax cues for upright position with pt able to self correct with use of grab bars. When performing hair hygiene, R UE supported on arm rest of commode. When pt sitting unsupported, pt with LOB laterally requiring 2 UE support to self correct. Pt with 1 instance of mod A while sitting. Transport backto room and clarisa back to bed for dressing to maximize independence. B LE isiah wrapped due to increased swelling. Pt completed LE dressing max A, able to assist in hiking pants up and trialling when rolling side to side. UE dressing mod A for pulling shirt down back. Pt demo increased independence and awareness of body throughout. Clarisa to wc. Oral hygiene completed in chair distance supervision, increased sitting balance with 1 UE support noted. Pt left sitting upright in wc, chair alarm armed for pt's safety, PCT notified, B leg rests donned. OT Assessment OT Assessment OT Assessment Results: Decreased ADL status, Decreased endurance, Decreased sensation, Visual deficit, Decreased functional mobility, Decreased IADLs, Decreased trunk control for functional activities, Impaired tone Prognosis: Good Evaluation/Treatment Tolerance: Patient tolerated treatment well Comments: Pt with 1 spasm when going from sit>supine in bed only. Pt demo increased sitting tolerance and repositioning today. Medical Staff Made Aware: Yes Comments: skin integrity, dressing change OT Plan Plan Treatment Interventions: ADL retraining, Functional transfer training, UE strengthening/ROM, Endurance training, Equipment evaluation/education, Compensatory technique education, Continued evaluation OT Plan: Skilled OT OT Frequency : 5-7 days per week OT Duration of Sessions: 90 min per day OT Treatments per day: 1 time per day OT - Evaluation Status: Complete Equipment Recommended: (TBD) Barriers to Discharge: environemntal concerns, functional status, pt lives alone. Goals: Encounter Problems Encounter Problems (Active) Template: Occupational Therapy Problem: OT Assisted Goals Dates: Start: 06/26/24 Goal: pt will improve dynamic sitting balance to S, for up to 15 minutes, while performing UB ADL. Dates: Start: 06/26/24 Expected End: 07/17/24 Goal: pt will be able to independently direct care, in order to perform toileting safely, while allowing greatest level of INDEPENDENCE (including DME use, txfer techniques, and strategies) Dates: Start: 06/26/24 Expected End: 07/17/24 Goal: Pt will tolerate 3/3 meals OOB Dates: Start: 06/26/24 Expected End: 07/17/24 Goal: Pt will perform LB dressing with partial A, use of LH ADAPTIVE EQUIPTMENT prn Dates: Start: 06/26/24 Expected End: 07/17/24 Goal: pt will perform toileting with overall max A. Dates: Start: 06/26/24 Expected End: 07/17/24 Goal: pt will don shirt with S, sitting unsupported. Dates: Start: 06/26/24 Expected End: 07/17/24 Description: Problem: OT Short Term Goals Dates: Start: 06/26/24 Goal: Pt will perform rolling R><L with use of log roll technique, partial A, for pressure relief. Dates: Start: 06/26/24 Expected End: 07/03/24 Goal: Pt will tolerate sitting OOB for 1/3 meals Dates: Start: 06/26/24 Expected End: 07/03/24 Goal: Pt will sit at EOB for 10 minutes, with no more than partial A for balance to increase Potter with EOB ADL Dates: Start: 06/26/24 Expected End: 07/03/24 Goal: Pt will verbalize 3 pressure relief techniques in order to reduce sophia of pressure injury Dates: Start: 06/26/24 Expected End: 07/03/24 Goal: Pt will perform oral hygiene w/c level, with JACINTO. Dates: Start: 06/26/24 Expected End: 07/03/24 Encounter Problems (Resolved) There are no resolved problems. Education Documentation Skin Care/Pressure Ulcer Prevention, taught by Vero Wilson OT at 06/29/2024 2:21 PM. Learner: Patient Readiness: Acceptance Method: Explanation Response: Verbalizes Understanding ADL Training, taught by Vero Wilson OT at 06/29/2024 2:21 PM. Learner: Patient Readiness: Acceptance Method: Explanation Response: Verbalizes Understanding Home Exercise Program, taught by Vero Wilson OT at 06/29/2024 2:21 PM. Learner: Patient Readiness: Acceptance Method: Explanation Response: Verbalizes Understanding Precautions, taught by Vero Wilson OT at 06/29/2024 2:21 PM. Learner: Patient Readiness: Acceptance Method: Explanation Response: Verbalizes Understanding Body Mechanics, taught by Vero Wilson OT at 06/29/2024 2:21 PM. Learner: Patient Readiness: Acceptance Method: Explanation Response: Verbalizes Understanding Education Comments No comments found. Start/Stop Time OT Time Calculation OT Start Time: 0930 OT Stop Time: 1100 OT Time Calculation (min): 90 min Therapy Minutes: Occupational Therapy OT Individual: 90 * Jocelyn Carballo, PT - 06/29/2024 12:30 PM EST [facility] Physical Therapy Treatment Note 06/29/2024 Patient: Yuly Montoya : 1955 Age: 68 y.o. Gender: female Primary Language: Tristanian Diagnosis: Lower extremity weakness Past Medical History: Diagnosis Date Adverse effect of anesthesia several hrs after sx pt had Panic attack Anxiety Arthritis Hypertension Irregular heart beat Joint pain Lymphedema Macular degeneration Past Surgical History: Procedure Laterality Date ABLATION OF DYSRHYTHMIC FOCUS BACK SURGERY N/A s/p L2-3 decompression 09/13/[address] Markham, s/p lumbar discectomy Dr. Bales, L3-4, L4-[address] Yarbrough February 2012, subsequent L4-S1 fusion in [place] with Dr. Cagle. CARPAL TUNNEL RELEASE Right TONSILLECTOMY ADENOIDECTOMY, BILATERAL MYRINGOTOMY AND TUBES TOTAL HIP ARTHROPLASTY Left 2022 TOTAL KNEE ARTHROPLASTY Bilateral Allergies: has No Known Allergies. Precautions: Medical Precautions: Fall Risk Safety Interventions: Call doss within reach, Chair alarm RUE Weight Bearing Status: Full LUE Weight Bearing Status: Full RLE Weight Bearing Status: Full LLE Weight Bearing Status: Full Orthopedic Precautions: Back Precautions NURSING RECOMMENDATIONS Bed Mobility: min A rolling, bed rails up, spinal precautions Transfers: clarisa Ambulation: none SUBJECTIVE Pt report: I feel like I have no control on the slideboard and am worried about falling forward Pain: Pain Assessment: 0-10 Pain Score: 4 Pain Location: Back Pain Orientation: Mid OBJECTIVE General Observation: Pt sitting in wheelchair, eager for PT. Vitals: BP: 113/57 Heart Rate: 69 SpO2: 100 % Procedure/Treatment: Neuromuscular Reeducation: Balance/Neuromuscular Re-Education Neuromuscular Re-Education Time Entry: 90 Pt received in wheelchair. Supervision wheelchair mobility to the gym. Max A + SBA slideboard transfer wheelchair > mat table. Assist to place/remove board. Pt cued to lean forward into therapist to support trunk, in order to allow pt to use upper extremities to assist with uplift. Blocking bothlower extremities throughout. Completed in 3 scoots, assist to adjust lower extremities throughout.Supervision sitting EOM with BUE support. Dynamic sitting balance, releasing one UE to stack cones.Cued for contralateral weight shift prior to releasing hand. Pt able to reach with LUE steadying-partial A, requiring partial-max for reaching with RUE. Completed x3 slideboard transfers mat <> wheelchair, max Ax1, pt doing better when using armrest to assist with pulling into wheelchair. Pt transported back to room. Progressed to slideboard transfer to airbed, max Ax1 and steadying Ax1 [facility]. Sit > supine assist x2, one therapist assisting trunk and second assist for lower extremities. PUPP boots placed on feet for skin protection. Pt wanting to stay on her back, verbalizing she will ring call doss to get on her side in 2 hours. At end of session, pt left in bed with alarm set, call doss within reach and all needs met. Education: Education Documentation Mobility Training, taught by Jocelyn Carballo PT at 06/29/2024 3:21 PM. Learner: Patient Readiness: Acceptance Method: Explanation, Demonstration Response: Verbalizes Understanding, Demonstrated Understanding, Needs Reinforcement Comment: bed mobility, slideboard transfers, wc mobility, sitting balance Education Comments No comments found. ASSESSMENT PT Assessment PT Assessment Results: Decreased strength, Decreased endurance, Impaired balance, Impaired gait, Decreased mobility, Decreased coordination, Impaired sensation, Decreased skin integrity, Orthopedic restrictions, Pain Prognosis: Fair Evaluation/Treatment Tolerance: Patient tolerated treatment well Comments: Progressed to slideboard transfers to bed. Pt completing all transfers max Ax1, with SBA/steadying A of second person. Equipment: TBD Plan of Care Plan Treatment/Interventions: Functional transfer training, LE strengthening/ROM, Patient/family training, Bed mobility, Balance training, Gait training PT Plan: Skilled PT PT Frequency: 5 days per week PT Duration of Sessions: 90 min per day PT Treatments per day: 1 time per day PT Discharge Recommendations: (TBD) Equipment Recommended: TBD Problems/Goals Goals: Encounter Problems Encounter Problems (Active) Template: Physical Therapy Problem: PT Assisted Goals Dates: Start: 06/26/24 Goal: Mod I rolling Dates: Start: 06/26/24 Expected End: 07/17/24 Goal: Partial A transfers LRAD with pt directing care Dates: Start: 06/26/24 Expected End: 07/17/24 Goal: Sit <> supine partial A, pt directing care adhering to spinal precautions Dates: Start: 06/26/24 Expected End: 07/17/24 Goal: Mod I wheelchair mobility x150' Dates: Start: 06/26/24 Expected End: 07/17/24 Goal: Pt will sit independently x15 min Dates: Start: 06/26/24 Expected End: 07/17/24 Problem: PT Short Term Goals Dates: Start: 06/26/24 Goal: Supervision rolling Dates: Start: 06/26/24 Expected End: 07/03/24 Goal: Sit <> supine max Ax1 Dates: Start: 06/26/24 Expected End: 07/03/24 Goal: Max A + partial A slideboard transfers Dates: Start: 06/26/24 Expected End: 07/03/24 Goal: Supervision wheelchair mobility x100' Dates: Start: 06/26/24 Expected End: 07/03/24 Goal: Pt will sit with UE support x5 min supervision/steadying A Dates: Start: 06/26/24 Expected End: 07/03/24 Encounter Problems (Resolved) There are no resolved problems. Session Start/Stop Time: 1230 1400 Therapy Minutes Physical Therapy PT Individual: 90 * THEODORA Pope - 06/29/2024 11:53 AM EST Images from the original note were not included. [facility] PROGRESS NOTE Date: 06/29/2024 Author: THEODORA Pope Patient ID: Yuly Montoya is a 68 y.o. female : 1955 MR#: [id number] SUBJECTIVE Subjective Blood pressure trend has improved today. She did receive IV fluids. Sodium has also improved. Otherwise no interval changes from yesterday in regards to her movement/sensation ROS Constitutional :no fever chills , appetite fair, sleeping well HEENT: denies headaches Respiratory: denies shortness of breath, coughing or wheezing Cardiac: denies chest pain, palpitations, : No abd pain, no N/V. Genitourinary: denies any dysuria frequency urgency Musculoskeletal: No joint pain ,back pain Allergies Patient has no known allergies. Current Medications: acetaminophen, 975 mg, oral, q8h EDEN bisacodyL, 10 mg, rectal, q24h doxepin, 100 mg, oral, Nightly DULoxetine, 60 mg, oral, Daily famotidine, 20 mg, oral, Daily gabapentin, 400 mg, oral, q8h EDEN heparin (UFH), 5,000 Units, subcutaneous, q8h EDEN methylPREDNISolone, 4 mg, oral, Daily metoprolol succinate, 25 mg, oral, Daily sodium chloride, 3 mL, intravenous, q8h EDEN traZODone, 75 mg, oral, Nightly sodium chloride, 75 mL/hr, Last Rate: 75 mL/hr (06/27/24 1653) PRN medications: acetaminophen, ALPRAZolam, aluminum-magnesium hydroxide- simethicone, bisacodyL, docusate sodium, magnesium hydroxide, oxyCODONE OBJECTIVE Vitals: 06/28/24 1242 06/28/24 1540 06/29/24 0530 06/29/24 0811 BP: 113/57 (!) 152/75 121/54 119/52 BP Location: Left arm Left arm Patient Position: Lying Lying Pulse: 69 59 62 80 Resp: 16 16 18 Temp: 36.8 ??C (98.2 ??F) 36.7 ??C (98 ??F) 36.5 ??C (97.7 ??F) TempSrc: Oral Oral SpO2: 100% 100% 100% 100% Weight: PHYSICAL EXAM General: conscious alert no acute distress HEENT: pupils are equal round and reactive. extraocular movements are grossly intact lungs clear to auscultation, no wheezing or crackles noted heart regular rate and rhythm, no murmur or rubs abdomen soft nontender nondistended positive bowel sounds Musculoskeletal: No gross deformity to joints extremities without edema, erythema or calf tenderness neuro: no change some minimal toe movement on right foot. Left foot now with plantar and dorsiflexion. Sensation unchanged Lower leg edema bilat Nontender no erythema. Previously legs were noted to be clinically dry. + skin tenting . skin: incision to spine pink but no gross infection psych: mood stable appearing, good eye contact. LABS HEMATOLOGY Lab Results Component Value Date WBC 9.8 06/27/2024 HGB 10.4 (L) 06/27/2024 HCT 31.5 (L) 06/27/2024 MCV 91.0 06/27/2024 PLT 177 06/27/2024 CHEMISTRY Lab Results Component Value Date GLUCOSE 98 06/28/2024 NA 131 (L) 06/28/2024 K 4.2 06/28/2024 CO2 31 06/28/2024 CL 98 06/28/2024 BUN 18 06/28/2024 CREATININE 0.46 (L) 06/28/2024 EGFR 105 06/28/2024 CALCIUM 8.5 06/28/2024 MG 1.9 06/27/2024 PHOS 2.7 06/15/2024 ANIONGAP 2 (L) 06/28/2024 Imaging: CT Thoracic Spine wo Contrast Narrative: PROCEDURE: CT THORACIC SPINE WO CONTRAST HISTORY: 68 years Female Spinal fusion, thoracic, follow up s/p spinal fusion COMPARISON: 06/11/2024 TECHNIQUE: CT THORACIC SPINE WO CONTRAST. Coronal and sagittal reformatted images were obtained. Three-dimensional volume rendering is generated on an independent workstation. FINDINGS: Streak artifact from orthopedic hardware limits evaluation. Facet alignment is maintained. No fracture. Vertebral body alignment is maintained. T5-T8 posterior decompression and fusion. No obvious hardware complications. No fluid collection isseen, drain is present terminating along the posterior thecal sac at T5-T6.Posterior skin ronald are noted. Osteophyte at T6-T7 causes moderate spinal canal stenosis. Severe degenerative change lower cervical spine. Multilevel spondylolisthesis in the cervical spine. Left thyroid lobe hypodense nodule measures 2 cm. Small bilateral pleural effusions. Visualized heart is enlarged. Impression: Posterior decompression and fusion with drain present. No fluid collection. If further evaluation is indicated consider MRI. Left thyroid lobe nodule can be followed up with ultrasound. Bilateral pleural effusions. Report reviewed and signed by : Dr. Chetan Barclay on 06/14/2024 6:04 PM. Workstation Name - [id number] -------- FINAL REPORT -------- Dictated By: Chetan Barclay Dictated Date: 06/14/2024 17:59 ET Assigned Physician: Chetan Barclay Reviewed and Electronically Signed By: Chetan Barclay Signed Date: 06/14/2024 18:04 ET Workstation ID: [id number] Transcribed By: Self Edit Transcribed Date: 06/14/2024 17:59 ET ASSESSMENT & PLAN #Thoracic spinal stenosis, spinal mass, s/p 2 thoracic decompression surgeries 06/11 she was transferred to [facility] S/p T5-T8 fusion and T5-7 decompression T6-7 facetectomy and removal of mass. With Dr. Hall Bone and soft tissue, thoracic spine, T5-T8 excision with decompression: Fragments of benign bone and cartilage with focus of necrotic bone. No malignancy identified. Per rehab team. F/u with neurosurgery after discharge Improvement noted to left foot able to plantar and dorsiflex foot. Able to also have minimal toe movement on the right foot Bilateral lower extremity weakness Right lower extremity 0 on 5 Left lower extremity now she is able to plantar and dorsiflex prior she was only able to wiggle hertoes Decreased sensation to the right lower extremity and abdomen Neurogenic bladder/ bowel in the setting of spinal injury Pain management currently on gabapentin 800 mg twice a day--> reduce to 400mg TID Methylprednisone 4 mg/medrol dose pack taper Tizanidine 2 now off due hypotension. And denies spasms. #Neurogenic bowel bladder Currently with Varma catheter. Patient reports that her Varma catheter was exchanged during hospital course at [facility] on or about 06/11 She was found to have pyuria and was treated with Macrobid Continue with bowel regimen/program Patient reports recent diarrhea loose stools which she attributes to aggressive bowel management prior to that normal bowel movements #History of cervical spondylolisthesis with central canal stenosis #Leukocytosis Mild 12,000--> RESOLVED Likely reactive to steroids afebrile Is not appear to be infected acutely #Atrial flutter s/p ablation Recent history of bradycardia now on lower dose of BB Toprol XL 25 mg Heart rate in the 60s Monitor #Hypertension recent with recurrent low BP's /Hypotension Toprol XL 25 mg hold parameters Hydralazine 75 mg twice a day -> d/c triamterene/hydrochlorothiazide--> d/c also hypoNa Diovan 320 mg -> d/c rec IVF. Agree with d/c Tizanidine #hyponatremia Likely hypovolemia hyponatremia due to diarrhea and BP meds. Clinically dry. Diarrhea resolved Na improved was 124--> now 129 -> 131 S/p gentle ivf # Lymphedema acute on chronic Patient reports that she has special stockings at home. She will try to obtain them. In the meantime Isiah wraps bilaterally. No pain to the extremities. Also on prednsione with recent IVF #Anxiety Mood stable Maintain on doxepin 100 mg nightly Duloxetine 60 mg Trazodone 75 mg nightly #DVT prophylaxis with heparin 5000 units SQ 3 times daily DAILY CARE CHECKLIST * Raphael Hamm RN - 06/29/2024 11:46 AM EST Pt tolerated showering well today. Bps maintained in a good range. Dressing on back removed previous to shower. Noted irritation to skin where tape was. Dressing replaced with mepilex's to prevent irritation. Pt states mepilex's feel better because of the foam cushioning. * THEODORA Lawson - 06/28/2024 1:01 PM EST Images from the original note were not included. [facility] Daily Progress Note Patient name: Yuly Montoya : 1955 SUBJECTIVE: Patient seen and examined at bedside today. No acute events overnight. Denies headaches, dizziness,shortness of breath, chest pain, nausea. Varma in place. Reports she couldn't sleep last night but is trying to take a nap now. Hypotension improved. Feeling better. OBJECTIVE: Vitals: 06/28/24 0148 06/28/24 0730 06/28/24 0742 06/28/24 1242 BP: 121/59 109/67 106/63 113/57 BP Location: Right arm Left arm Patient Position: Sitting Lying Pulse: 66 63 60 69 Resp: 18 Temp: 36.3 ??C (97.3 ??F) 36.4 ??C (97.5 ??F) TempSrc: Oral Oral SpO2: 99% 100% 100% Weight: Physical Examination: General: Alert, in no acute cardiopulmonary distress. Mental Status: Oriented to person, place and time. Normal affect. Head: Normocephalic. Eyes: Pupils are equal, round and reactive to light. Extraocular muscles intact. Ear, Nose and Throat: Oropharynx clear, mucous membranes moist. Ears and nose without masses, lesions or deformities. Neck: Supple, Trachea midline. Respiratory: Clear to auscultation and percussion. No wheezing, rales or rhonchi. Cardiovascular: Heart sounds normal. No thrills. Regular rate and rhythm, no murmurs, rubs or gallops. Gastrointestinal: Abdomen soft, non-tender, non-distended. Normal bowel sounds. Genitourinary: +Vrama catheter in place with clear yellow urine in bag. Neurologic: b/l LE weakness. Decreased ssensation to b/l LE R>l and decreased sensation to abd Skin: No rashes or lesions. No petechiae or purpura. No edema. Musculoskeletal: RLE 0/5 strength. LLE 0/5 hip flexion and knee extension. LLE 1/5 left dorsiflexion and plantarflexion. CURRENT INPATIENT MEDICATIONS: Current Facility-Administered Medications: acetaminophen (TYLENOL) tablet 650 mg, 650 mg, oral, q6h PRN, THEODORA Lawson, 650 mg at 06/26/24 1508 acetaminophen (TYLENOL) tablet 975 mg, 975 mg, oral, q8h EDEN, Darline Lara DO, 975 mg at 06/28/24 0625 ALPRAZolam (XANAX) tablet 0.5 mg, 0.5 mg, oral, Nightly PRN, THEODORA Lawson, 0.5 mg at 06/28/24 0149 aluminum-magnesium hydroxide-simethicone (MAALOX) 200-200-20 mg/5 mL suspension 30 mL, 30 mL, oral,q4h PRN, THEODORA Lawson bisacodyL (DULCOLAX) suppository 10 mg, 10 mg, rectal, Daily PRN, THEODORA Lawson bisacodyL (DULCOLAX) suppository 10 mg, 10 mg, rectal, q24h, Darline Lara DO docusate sodium (COLACE) capsule 100 mg, 100 mg, oral, BID, THEODORA Lawson, 100 mg at doxepin (SINEquan) capsule 100 mg, 100 mg, oral, Nightly, THEODORA Lawson, 100 mg at 06/27/242128 DULoxetine (CYMBALTA) DR capsule 60 mg, 60 mg, oral, Daily, THEODORA Lawson, 60 mg at 06/28/24928 famotidine (PEPCID) tablet 20 mg, 20 mg, oral, Daily, THEODORA Lawson, 20 mg at 06/28/24928 gabapentin (NEURONTIN) capsule 400 mg, 400 mg, oral, q8h EDEN, Darline Lara DO, 400 mg at 06/28/24 0632 heparin (UFH) injection 5,000 Units, 5,000 Units, subcutaneous, q8h EDEN, THEODORA Lawson, 5,000Units at 06/28/24 06 magnesium hydroxide (MILK OF MAGNESIA) 400 mg/5 mL suspension 30 mL, 30 mL, oral, Daily PRN, THEODORA Lawson methylPREDNISolone (MEDROL) tablet 4 mg, 4 mg, oral, Daily, THEODORA Lawson, 4 mg at 06/28/24928 metoprolol succinate (TOPROL-XL) 24 Hour tablet 25 mg, 25 mg, oral, Daily, THEODORA Pope oxyCODONE (ROXICODONE) immediate release tablet 5 mg, 5 mg, oral, q6h PRN, Darline Lara DO sodium chloride 0.9 % flush 3 mL, 3 mL, intravenous, TID, THEODORA Pope, 3 mL at 06/28/24929 sodium chloride 0.9 % infusion, 75 mL/hr, intravenous, Continuous, THEODORA Pope, Last Rate:75 mL/hr at 06/27/241652, 75 mL/hr at 06/27/241652 traZODone (DESYREL) tablet 75 mg, 75 mg, oral, Nightly, THEODORA Lawson, 75 mg at 06/27/242131 LABS: Lab Results Component Value Date WBC 9.8 06/27/2024 RBC 3.50 (L) 06/27/2024 HGB 10.4 (L) 06/27/2024 HCT 31.5 (L) 06/27/2024 MCV 91.0 06/27/2024 MCHC 33.0 06/27/2024 RDW 15.3 (H) 06/27/2024 PLT 177 06/27/2024 MPV 9.9 06/27/2024 NRBC 0.0 06/27/2024 DIFF Lab Results Component Value Date LYMPHOPCT 11.0 06/26/2024 NEUTROABS 8.99 (H) 06/26/2024 LYMPHSABS 1.40 06/26/2024 MONOABS 1.86 (H) 06/26/2024 EOSABS 0.10 06/26/2024 BASOSABS 0.03 06/26/2024 IMMGRANABS 0.35 (H) 06/26/2024 RETIC No results found for: RETIC , RETICCTPCT Lab Results Component Value Date NA 131 (L) 06/28/2024 K 4.2 06/28/2024 CL 98 06/28/2024 CO2 31 06/28/2024 GLUCOSE 98 06/28/2024 BUN 18 06/28/2024 CREATININE 0.46 (L) 06/28/2024 CALCIUM 8.5 06/28/2024 PROT 5.0 (L) 06/27/2024 ALBUMIN 2.9 (L) 06/27/2024 BILITOT 0.7 06/27/2024 AST 19 06/27/2024 ALT 22 06/27/2024 PHOS 2.7 06/15/2024 MG 1.9 06/27/2024 ALKPHOS 82 06/27/2024 EGFR 105 06/28/2024 IMPRESSION & PLAN: #Impaired mobility and self care -Secondary to thoracic myelopathy -Continue with PT, OT, and nursing care #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 -s/p T5-T8 fusion and T5-7 decompression T6-7 facetectomy and removal of mass (non malignant) by [facility] at [facility] -Betadine to surgical incision daily and leave open to air -continue therapies -Methylprednisolone 4 mg daily until 07/01/2024 -Tizanidine 2 mg daily 06/26 held due to hypotension --> discontinued on 06/27 due to hypotension -f/u NSG after discharge #Pain management -Tylenol 975mg Q8H -Gabapentin 800 mg BID --> changed to 400mg Q8H on 06/27 due to hypotension -Oxycodone 5mg Q6H PRN #Hypotension -will give additional IVF on 06/27 -medications adjusted as outlined below -monitor #Hypertension -Hydralazine 75 mg BID discontinued 06/27 due to hypotension -Dyazide 37.5-25 mg daily discontinued 06/26 due to hypotension -Valsartan 320 mg daily discontinued 06/26 due to hypotension -Metoprolol succinate 25 mg daily 06/26 held due to hypotension #Anxiety -Doxepin 100 mg nightly -Duloxetine 60 mg daily -Trazodone 75 mg nightly -Xanax 0.5mg QHS PRN #GERD -Famotidine 20 mg daily #Hyponatremia -sodium 124 on 06/26 --> 129 on 06/27 -continue IVF -monitor with routine labs #Neurogenic bladder -Varma catheter in place #Neurogenic bowel -Colace 100mg BID -start suppository daily on 06/27 (will hold suppository until BP stabilizes) DVT ppx: Heparin 5000 units SQ TID Associated attestation - Darline Lara DO - 06/29/2024 2:44 PM EST Agree with progress note, assessment, and plan as documented by THEODORA today. * THEODORA Pope - 06/28/2024 12:45 PM EST Images from the original note were not included. [facility] PROGRESS NOTE Date: 06/28/2024 Author: THEODORA Pope Patient ID: Yuly Montoya is a 68 y.o. female : 1955 MR#: [id number] SUBJECTIVE Subjective Blood pressure trend has improved today. She did receive IV fluids. Sodium has also improved. Otherwise no interval changes from yesterday in regards to her movement/sensation ROS Constitutional :no fever chills , appetite fair, sleeping well HEENT: denies headaches Respiratory: denies shortness of breath, coughing or wheezing Cardiac: denies chest pain, palpitations, : No abd pain, no N/V. Genitourinary: denies any dysuria frequency urgency Musculoskeletal: No joint pain ,back pain Allergies Patient has no known allergies. Current Medications: acetaminophen, 975 mg, oral, q8h EDEN bisacodyL, 10 mg, rectal, q24h docusate sodium, 100 mg, oral, BID doxepin, 100 mg, oral, Nightly DULoxetine, 60 mg, oral, Daily famotidine, 20 mg, oral, Daily gabapentin, 400 mg, oral, q8h EDEN heparin (UFH), 5,000 Units, subcutaneous, q8h EDEN methylPREDNISolone, 4 mg, oral, Daily metoprolol succinate, 25 mg, oral, Daily sodium chloride, 3 mL, intravenous, TID traZODone, 75 mg, oral, Nightly sodium chloride, 75 mL/hr, Last Rate: 75 mL/hr (06/27/24 1653) PRN medications: acetaminophen, ALPRAZolam, aluminum-magnesium hydroxide- simethicone, bisacodyL, magnesium hydroxide, oxyCODONE OBJECTIVE Vitals: 06/28/24 0148 06/28/24 0730 06/28/24 0742 06/28/24 1242 BP: 121/59 109/67 106/63 113/57 BP Location: Right arm Left arm Patient Position: Sitting Lying Pulse: 66 63 60 69 Resp: 18 Temp: 36.3 ??C (97.3 ??F) 36.4 ??C (97.5 ??F) TempSrc: Oral Oral SpO2: 99% 100% 100% Weight: PHYSICAL EXAM General: conscious alert no acute distress HEENT: pupils are equal round and reactive. extraocular movements are grossly intact lungs clear to auscultation, no wheezing or crackles noted heart regular rate and rhythm, no murmur or rubs abdomen soft nontender nondistended positive bowel sounds Musculoskeletal: No gross deformity to joints extremities without edema, erythema or calf tenderness neuro: no change some minimal toe movement on right foot. Left foot now with plantar and dorsiflexion. Sensation unchanged skin: incision to spine pink but no gross infection psych: mood stable appearing, good eye contact. LABS HEMATOLOGY Lab Results Component Value Date WBC 9.8 06/27/2024 HGB 10.4 (L) 06/27/2024 HCT 31.5 (L) 06/27/2024 MCV 91.0 06/27/2024 PLT 177 06/27/2024 CHEMISTRY Lab Results Component Value Date GLUCOSE 98 06/28/2024 NA 131 (L) 06/28/2024 K 4.2 06/28/2024 CO2 31 06/28/2024 CL 98 06/28/2024 BUN 18 06/28/2024 CREATININE 0.46 (L) 06/28/2024 EGFR 105 06/28/2024 CALCIUM 8.5 06/28/2024 MG 1.9 06/27/2024 PHOS 2.7 06/15/2024 ANIONGAP 2 (L) 06/28/2024 Imaging: CT Thoracic Spine wo Contrast Narrative: PROCEDURE: CT THORACIC SPINE WO CONTRAST HISTORY: 68 years Female Spinal fusion, thoracic, follow up s/p spinal fusion COMPARISON: 06/11/2024 TECHNIQUE: CT THORACIC SPINE WO CONTRAST. Coronal and sagittal reformatted images were obtained. Three-dimensional volume rendering is generated on an independent workstation. FINDINGS: Streak artifact from orthopedic hardware limits evaluation. Facet alignment is maintained. No fracture. Vertebral body alignment is maintained. T5-T8 posterior decompression and fusion. No obvious hardware complications. No fluid collection isseen, drain is present terminating along the posterior thecal sac at T5-T6.Posterior skin ronald are noted. Osteophyte at T6-T7 causes moderate spinal canal stenosis. Severe degenerative change lower cervical spine. Multilevel spondylolisthesis in the cervical spine. Left thyroid lobe hypodense nodule measures 2 cm. Small bilateral pleural effusions. Visualized heart is enlarged. Impression: Posterior decompression and fusion with drain present. No fluid collection. If further evaluation is indicated consider MRI. Left thyroid lobe nodule can be followed up with ultrasound. Bilateral pleural effusions. Report reviewed and signed by : Dr. Chetan Barclay on 06/14/2024 6:04 PM. Workstation Name - [id number] -------- FINAL REPORT -------- Dictated By: Chetan Barclay Dictated Date: 06/14/2024 17:59 ET Assigned Physician: Chetan Barclay Reviewed and Electronically Signed By: Chetan Barclay Signed Date: 06/14/2024 18:04 ET Workstation ID: [id number] Transcribed By: Self Edit Transcribed Date: 06/14/2024 17:59 ET ASSESSMENT & PLAN #Thoracic spinal stenosis, spinal mass, s/p 2 thoracic decompression surgeries 06/11 she was transferred to [facility] S/p T5-T8 fusion and T5-7 decompression T6-7 facetectomy and removal of mass. With Dr. Hall Bone and soft tissue, thoracic spine, T5-T8 excision with decompression: Fragments of benign bone and cartilage with focus of necrotic bone. No malignancy identified. Per rehab team. F/u with neurosurgery after discharge Improvement noted to left foot able to plantar and dorsiflex foot. Able to also have minimal toe movement on the right foot Bilateral lower extremity weakness Right lower extremity 0 on 5 Left lower extremity now she is able to plantar and dorsiflex prior she was only able to wiggle hertoes Decreased sensation to the right lower extremity and abdomen Neurogenic bladder/ bowel in the setting of spinal injury Pain management currently on gabapentin 800 mg twice a day--> reduce to 400mg TID Methylprednisone 4 mg/medrol dose pack taper Tizanidine 2 now off due hypotension. And denies spasms. #Neurogenic bowel bladder Currently with Varma catheter. Patient reports that her Varma catheter was exchanged during hospital course at [place] on or about 06/11 She was found to have pyuria and was treated with Macrobid Continue with bowel regimen/program Patient reports recent diarrhea loose stools which she attributes to aggressive bowel management prior to that normal bowel movements #History of cervical spondylolisthesis with central canal stenosis #Leukocytosis Mild 12,000--> RESOLVED Likely reactive to steroids afebrile Is not appear to be infected acutely #Atrial flutter s/p ablation Recent history of bradycardia now on lower dose of BB Toprol XL 25 mg Heart rate in the 60s Monitor #Hypertension Now with recurrent low BP's /Hypotension Toprol XL 25 mg hold parameters Hydralazine 75 mg twice a day -> d/c triamterene/hydrochlorothiazide--> d/c also hypoNa Diovan 320 mg -> d/c rec IVF. Agree with d/c Tizanidine #hyponatremia Likely hypovolemia hyponatremia due to diarrhea and BP meds. Clinically dry. Diarrhea resolved Na improved was 124--> now 129 -> 131 S/p gentle ivf #Anxiety Mood stable Maintain on doxepin 100 mg nightly Duloxetine 60 mg Trazodone 75 mg nightly #DVT prophylaxis with heparin 5000 units SQ 3 times daily DAILY CARE CHECKLIST * Jocelyn Carballo, PT - 06/28/2024 12:30 PM EST [facility] Physical Therapy Treatment Note 06/28/2024 Patient: Yuly Montoya : 1955 Age: 68 y.o. Gender: female Primary Language: Tristanian Diagnosis: Lower extremity weakness Past Medical History: Diagnosis Date Adverse effect of anesthesia several hrs after sx pt had Panic attack Anxiety Arthritis Hypertension Irregular heart beat Joint pain Lymphedema Macular degeneration Past Surgical History: Procedure Laterality Date ABLATION OF DYSRHYTHMIC FOCUS BACK SURGERY N/A s/p L2-3 decompression 09/13/[address] Markham, s/p lumbar discectomy Dr. Bales, L3-4, L4-[address] Yarbrough February 2012, subsequent L4-S1 fusion in [place] with Dr. Cagle. CARPAL TUNNEL RELEASE Right TONSILLECTOMY ADENOIDECTOMY, BILATERAL MYRINGOTOMY AND TUBES TOTAL HIP ARTHROPLASTY Left 2022 TOTAL KNEE ARTHROPLASTY Bilateral Allergies: has No Known Allergies. Precautions: Medical Precautions: Fall Risk Safety Interventions: Chair alarm, Call doss within reach RUE Weight Bearing Status: Full LUE Weight Bearing Status: Full RLE Weight Bearing Status: Full LLE Weight Bearing Status: Full Orthopedic Precautions: Back Precautions NURSING RECOMMENDATIONS Bed Mobility: min A rolling, bed rails up, spinal precautions Transfers: clarisa Ambulation: none SUBJECTIVE Pt report: I think I was able to help more with the slideboard transfers today Pain: Pain Assessment: 0-10 Pain Score: 5 - Moderate pain Pain Location: Back Pain Orientation: Mid OBJECTIVE General Observation: Pt received sitting up in wheelchair. Vitals: BP: 113/57 Heart Rate: 69 SpO2: 100 % General/Functional Assessments: Bed Mobility Bed Mobility Comments: min A rolling, bed rails up, spinal precautions Transfers Transfer Comments: clarisa Ambulation Comments: none Procedure/Treatment: Neuromuscular Reeducation: Balance/Neuromuscular Re-Education Neuromuscular Re-Education Time Entry: 90 Pt received in wheelchair, ready for PT. Assessed vitals, BP stable. Supervision wheelchair mobility to the gym. Max A + steadying A slideboard transfer, assist for placing/removing board and supporting trunk due to poor trunk control. Assist for uplift provided. Pt completing static sitting EOM with BUE support close supervision x3 min. Progressed to dynamic sitting balance, releasing one UE from mat to reach for cones placed lateral to pt, reaching across midline to stack, adhering to spinal precautions. More difficulty releasing RUE compared to LUE, cued to contralateral weight shift priorto releasing hand from mat. Overall partial A provided for activity. Pt sitting with BUEs on lap, provided perturbations all directions, pt requiring steadying/partial A to recover balance, with practice initiating protective balance reactions of using upper extremities on mat to stabilize. Max A +SBA slideboard transfer back to wheelchair, assist to place/remove board, assist to stabilize trunkand for uplift during transfer. Pt with improved participation in this transfer. Difficulty transitioning hands during transfer due to poor trunk control. Pt transported back to room. Clarisa back to bed. Pt positioned in right sidelying for pressure relief. At end of session, pt left in bed with alarm set, call doss within reach and all needs met. Education: Education Documentation Precautions, taught by Jocelyn Carballo PT at 06/28/2024 4:14 PM. Learner: Patient Readiness: Eager Method: Explanation, Demonstration Response: Verbalizes Understanding, Demonstrated Understanding, Needs Reinforcement Comment: slideboard transfers, sitting balance, spinal precautions Mobility Training, taught by Jocelyn Carballo PT at 06/28/2024 4:14 PM. Learner: Patient Readiness: Eager Method: Explanation, Demonstration Response: Verbalizes Understanding, Demonstrated Understanding, Needs Reinforcement Comment: slideboard transfers, sitting balance, spinal precautions Education Comments No comments found. ASSESSMENT PT Assessment PT Assessment Results: Decreased strength, Decreased endurance, Impaired balance, Impaired gait, Decreased mobility, Decreased coordination, Impaired sensation, Decreased skin integrity, Orthopedic restrictions, Pain Prognosis: Fair Evaluation/Treatment Tolerance: Patient tolerated treatment well Comments: Improving slideboard transfers. Pt to benefit from continued dynamic sitting balance activities and slideboard transfers to improve independence. Equipment: TBD Plan of Care Plan Treatment/Interventions: Functional transfer training, LE strengthening/ROM, Patient/family training, Bed mobility, Balance training, Gait training PT Plan: Skilled PT PT Frequency: 5 days per week PT Duration of Sessions: 90 min per day PT Treatments per day: 1 time per day PT Discharge Recommendations: (TBD) Equipment Recommended: TBD Problems/Goals Goals: Encounter Problems Encounter Problems (Active) Template: Physical Therapy Problem: PT Assisted Goals Dates: Start: 06/26/24 Goal: Mod I rolling Dates: Start: 06/26/24 Expected End: 07/17/24 Goal: Partial A transfers LRAD with pt directing care Dates: Start: 06/26/24 Expected End: 07/17/24 Goal: Sit <> supine partial A, pt directing care adhering to spinal precautions Dates: Start: 06/26/24 Expected End: 07/17/24 Goal: Mod I wheelchair mobility x150' Dates: Start: 06/26/24 Expected End: 07/17/24 Goal: Pt will sit independently x15 min Dates: Start: 06/26/24 Expected End: 07/17/24 Problem: PT Short Term Goals Dates: Start: 06/26/24 Goal: Supervision rolling Dates: Start: 06/26/24 Expected End: 07/03/24 Goal: Sit <> supine max Ax1 Dates: Start: 06/26/24 Expected End: 07/03/24 Goal: Max A + partial A slideboard transfers Dates: Start: 06/26/24 Expected End: 07/03/24 Goal: Supervision wheelchair mobility x100' Dates: Start: 06/26/24 Expected End: 07/03/24 Goal: Pt will sit with UE support x5 min supervision/steadying A Dates: Start: 06/26/24 Expected End: 07/03/24 Encounter Problems (Resolved) There are no resolved problems. Session Start/Stop Time: 1230 1400 Therapy Minutes Physical Therapy PT Individual: 100 * Joleen Hollingsworth - 06/28/2024 10:00 AM EST Social Work Note Integrated Hematology Nurse Educator: DX: HX of anxiety and some depressive symptoms: Met with the patient this morning she was sitting in her chair. She reports still to be struggling with some depressive moments where she can become weepy. She is struggling with acceptance and how to move on from where she is today. She is hopeful but sometimes not so much. She feels grateful but also resentful which I normalized for her. E chatted a bit and gave her some encouraging words. But just sitting with her and having someone to vent and discuss her feelings was helpful. Will keep monitoring and following. Joleen Hollingsworth MS Clinician * Vero Wilson, OT - 06/28/2024 8:40 AM EST [facility] Occupational Therapy Treatment Note 06/28/24 Patient: Yuly Montoya : 1955 Age: 68 y.o. Gender: female Diagnosis: Lower extremity weakness Primary Rehab (Etiologic) Diagnosis: Patient Active Problem List Diagnosis Lumbar spondylosis Onychomycosis Pain in toe Sacroiliitis (CMS/HCC) Spondylolisthesis Cervical spondylosis Spinal stenosis of thoracic region Thoracic spinal stenosis Age-related macular degeneration Anxiety Atrial flutter (CMS/HCC) Obstructive sleep apnea syndrome Deep vein thrombosis (DVT) of lower extremity (CMS/HCC) History of artificial joint Hypertension Osteoarthritis of hip Peripheral venous insufficiency S/P tonsillectomy and adenoidectomy Bradycardia Thoracic myelopathy Lower extremity weakness PMH: Past Medical History: Diagnosis Date Adverse effect of anesthesia several hrs after sx pt had Panic attack Anxiety Arthritis Hypertension Irregular heart beat Joint pain Lymphedema Macular degeneration PSH: Past Surgical History: Procedure Laterality Date ABLATION OF DYSRHYTHMIC FOCUS BACK SURGERY N/A s/p L2-3 decompression 09/13/[address] Markham, s/p lumbar discectomy Dr. Bales, L3-4, L4-[address] Yarbrough February 2012, subsequent L4-S1 fusion in [place] with Dr. Cagle. CARPAL TUNNEL RELEASE Right TONSILLECTOMY ADENOIDECTOMY, BILATERAL MYRINGOTOMY AND TUBES TOTAL HIP ARTHROPLASTY Left 2022 TOTAL KNEE ARTHROPLASTY Bilateral Allergies: has No Known Allergies. Precautions: Precautions Medical Precautions: Fall Risk Safety Interventions: Chair alarm, Call doss within reach RUE Weight Bearing Status: Full LUE Weight Bearing Status: Full RLE Weight Bearing Status: Full LLE Weight Bearing Status: Full Orthopedic Precautions: Back Precautions Vitals: BP: 109/67 Heart Rate: 63 Pain: Pain Assessment Pain Assessment: 0-10 Pain Score: 4 Subjective: I don't feel dizzy Procedures/Interventions: ADLs/IADLs Self Care/Home Management (ADLs) Time Entry: 75 Therapeutic Exercise Therapeutic Exercise Time Entry: 15 Supine: 109/67 HR 63 Sitting in wc: 109/71 HR 60 Upon arrival, pt supine in bed. Vitals taken, see above for details. This therapist deemed wet shower unsafe due to BP issues. Pt agreeable to spongebath. Pt completed LE bathing and dressing supine max A. Pt able to perform corrina care with max cues. Pt required assistance with rest of bathing. Pt completed LE dressing max A, able to assist in hiking pants up from knees to hips. Pt completed rolling mod A for leg management and proper positioning. Clarisa to chair. BP taken, 109/71, no dizziness reported. Pt completed wc propulsion to sink. Seated at sink level, pt completed grooming, oral hygiene, and UE bathing and dressing. Pt with LOB to R sitting in wc with ability to self correct after cues for positioning. Pt completed UE dressing mod A for pulling shirt down in back. Grooming and oral hygiene supervision seated for safety concerns and body awareness. Pt completed eating seated in wc s/u for gathering materials. Pt given green theraband to initiate HEP. Pt completed x10 chess press, abduction and tricep extension. Pt demo good control and proper positioning. Pt left sitting upright in wc, chair alarm armed for pt's safety, call doss within reach. OT Assessment OT Assessment OT Assessment Results: Decreased ADL status, Decreased endurance, Decreased sensation, Visual deficit, Decreased functional mobility, Decreased IADLs, Decreased trunk control for functional activities, Impaired tone Prognosis: Good Evaluation/Treatment Tolerance: Patient tolerated treatment well Comments: Pt with no change of BP from supine to sitting in wc. Pt motivated to participate with increased sitting balance however verbal cues for positioning. Medical Staff Made Aware: Yes Comments: skin, vitals OT Plan Plan Treatment Interventions: ADL retraining, Functional transfer training, UE strengthening/ROM, Endurance training, Equipment evaluation/education, Compensatory technique education, Continued evaluation OT Plan: Skilled OT OT Frequency : 5-7 days per week OT Duration of Sessions: 90 min per day OT Treatments per day: 1 time per day OT - Evaluation Status: Complete Equipment Recommended: (TBD) Barriers to Discharge: environemntal concerns, functional status, pt lives alone. 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 Dates: Start: 06/26/24 Expected End: 07/17/24 Goal: pt will be able to independently direct care, in order to perform toileting safely, while allowing greatest level of INDEPENDENCE (including DME use, txfer techniques, and strategies) Dates: Start: 06/26/24 Expected End: 07/17/24 Goal: Pt will tolerate 3/3 meals OOB Dates: Start: 06/26/24 Expected End: 07/17/24 Goal: Pt will perform LB dressing with partial A, use of LH ADAPTIVE EQUIPTMENT prn Dates: Start: 06/26/24 Expected End: 07/17/24 Goal: pt will perform toileting with overall max A. Dates: Start: 06/26/24 Expected End: 07/17/24 Goal: pt will don shirt with S, sitting unsupported. Dates: Start: 06/26/24 Expected End: 07/17/24 Description: Problem: OT Short Term Goals Dates: Start: 06/26/24 Goal: Pt will perform rolling R><L with use of log roll technique, partial A, for pressure relief. Dates: Start: 06/26/24 Expected End: 07/03/24 Goal: Pt will tolerate sitting OOB for 1/3 meals Dates: Start: 06/26/24 Expected End: 07/03/24 Goal: Pt will sit at EOB for 10 minutes, with no more than partial A for balance to increase Potter with EOB ADL Dates: Start: 06/26/24 Expected End: 07/03/24 Goal: Pt will verbalize 3 pressure relief techniques in order to reduce sophia of pressure injury Dates: Start: 06/26/24 Expected End: 07/03/24 Goal: Pt will perform oral hygiene w/c level, with JACINTO. Dates: Start: 06/26/24 Expected End: 07/03/24 Encounter Problems (Resolved) There are no resolved problems. Education Documentation Skin Care/Pressure Ulcer Prevention, taught by Vero Wilson OT at 06/28/2024 8:40 AM. Learner: Patient Readiness: Acceptance Method: Explanation Response: Verbalizes Understanding ADL Training, taught by Vero Wilson OT at 06/28/2024 8:40 AM. Learner: Patient Readiness: Acceptance Method: Explanation Response: Verbalizes Understanding Precautions, taught by Vero Wilson OT at 06/28/2024 8:40 AM. Learner: Patient Readiness: Acceptance Method: Explanation Response: Verbalizes Understanding Body Mechanics, taught by Vero Wilson OT at 06/28/2024 8:40 AM. Learner: Patient Readiness: Acceptance Method: Explanation Response: Verbalizes Understanding Education Comments No comments found. Start/Stop Time OT Time Calculation OT Start Time: 729 OT Stop Time: 899 OT Time Calculation (min): 90 min Therapy Minutes: Occupational Therapy OT Individual: 90 * Ayaka Baker RN - 06/28/2024 3:48 AM EST Problem: Cognitive: Rosalind Beltran Fall Risk Goal: Last Known Fall Outcome: Progressing Goal: Mobility requiring assistance of person or device Outcome: Progressing Goal: Dizziness Outcome: Progressing Goal: Medications Outcome: Progressing Goal: Mental Status/LOC/Awareness Outcome: Progressing Goal: Toileting Needs Outcome: Progressing Goal: Volume and Electrolyte Status Outcome: Progressing Goal: Communication/Sensory Outcome: Progressing Goal: Behavior Outcome: Progressing Problem: Skin Integrity: Pressure Injury Actual or Risk of Goal: Will not develop new pressure injury Outcome: Progressing Goal: Skin integrity will improve Outcome: Progressing Goal: Risk for impaired skin integrity will decrease Outcome: Progressing Problem: Activity:Pressure Injury Actual or Risk of Goal: Mobility will improve Outcome: Progressing Problem: Nutritional:Pressure Injury Actual or Risk of Goal: Nutritional status will improve Outcome: Progressing Problem: Patient Specific Problem: Pressure Injury Actual or Risk of Goal: Patient Specific Outcome Outcome: Progressing Goals: Identify possible barriers to meeting goals/advancing plan of care: Pt working towards rehab goals. Stability of the patient: Moderately Unstable - Medium risk of patient condition declining or worsening End of Shift Summary: Prn anxiety medication administered per pt request for anxiety with good affect. Pt sleeping well with no signs of distress but awakens easily to voice. No complaints of pain. Spinal precautions maintained. Hourly and prn safety checks throughout the shift. Avrma catheter patent and draining clear yellow urine. Thoracic incision well approximated, no drainage, ronald intact, [employer], slight redness noted along incision line. * Darline Lara DO - 06/27/2024 5:02 PM EST Images from the original note were not included. PHYSICAL MEDICINE AND REHABILITATION Individualized Overall Plan of Care Patient Name: Yuly Montoya Date of : 1955 Sex: Female Payor Info: Payor: [facility] / Plan: [facility] PPO / Product Type: *No Product type* / Admit Date/Time: 06/25/2024 4:55 PM Etiologic Diagnosis: Thoracic myelopathy and paraplegia Rehab Impairment Group Code: 04.110 spinal cord dysfunction, paraplegia, unspecified Expected LOS/Duration of Therapy: 3-4 weeks Expected Discharge Destination: Home with home health services Medical Prognosis: Fair Medical Issues Actively Being Managed: Thoracic myelopathy and paraplegia, pain management, hypotension, history of hypertension, anxiety,GERD, hyponatremia, Neurogenic bladder, Neurogenic bowel Rehab Plan: Minimum of 180 minutes of therapy 5 out of 7 days per week as follows: 90 minutes of PT daily for 5 days. 90 minutes of OT daily for 5 days. Anticipated Functional Outcomes/Rehab Goals: Goals are for the patient to achieve the highest level of function and independence to allow the patient to return home. The patient and the family will be provided education on the patient's condition, the patient's current barriers, and the goals to overcome or to compensate for barriers. * THEODORA Pope - 06/27/2024 4:11 PM EST Images from the original note were not included. [facility] PROGRESS NOTE Date: 06/27/2024 Author: THEODORA Pope Patient ID: Yuly Montoya is a 68 y.o. female : 1955 MR#: [id number] SUBJECTIVE Subjective Bp still low today. BP meds held today. Improvement in BP after NS bolus. Otherwise denies f/c. Sensation to abd unchanged. With varma. Sleeping well\ ROS Constitutional :no fever chills , appetite fair, sleeping well HEENT: denies headaches Respiratory: denies shortness of breath, coughing or wheezing Cardiac: denies chest pain, palpitations, : No abd pain, no N/V. Genitourinary: denies any dysuria frequency urgency Musculoskeletal: No joint pain ,back pain Allergies Patient has no known allergies. Current Medications: acetaminophen, 975 mg, oral, q8h EDEN bisacodyL, 10 mg, rectal, Daily docusate sodium, 100 mg, oral, BID doxepin, 100 mg, oral, Nightly DULoxetine, 60 mg, oral, Daily famotidine, 20 mg, oral, Daily gabapentin, 400 mg, oral, q8h EDEN heparin (UFH), 5,000 Units, subcutaneous, q8h EDEN methylPREDNISolone, 4 mg, oral, Daily metoprolol succinate, 25 mg, oral, Daily sodium chloride, 3 mL, intravenous, TID traZODone, 75 mg, oral, Nightly sodium chloride, 75 mL/hr, Last Rate: 75 mL/hr (06/27/24 1010) PRN medications: acetaminophen, ALPRAZolam, aluminum-magnesium hydroxide- simethicone, bisacodyL, magnesium hydroxide, oxyCODONE OBJECTIVE Vitals: 06/27/24 1145 06/27/24 1245 06/27/24 1257 06/27/24 1402 BP: 133/77 129/83 136/79 131/83 BP Location: Right arm Patient Position: Lying Sitting Pulse: 68 55 57 58 Resp: 17 Temp: TempSrc: SpO2: 96% 99% Weight: PHYSICAL EXAM General: conscious alert no acute distress HEENT: pupils are equal round and reactive. extraocular movements are grossly intact lungs clear to auscultation, no wheezing or crackles noted heart regular rate and rhythm, no murmur or rubs abdomen soft nontender nondistended positive bowel sounds Musculoskeletal: No gross deformity to joints extremities without edema, erythema or calf tenderness neuro: no change some minimal toe movement on right foot. Left foot now with plantar and dorsiflexion. Sensation unchanged skin: incision to spine pink but no gross infection psych: mood stable appearing, good eye contact. LABS HEMATOLOGY Lab Results Component Value Date WBC 9.8 06/27/2024 HGB 10.4 (L) 06/27/2024 HCT 31.5 (L) 06/27/2024 MCV 91.0 06/27/2024 PLT 177 06/27/2024 CHEMISTRY Lab Results Component Value Date GLUCOSE 88 06/27/2024 NA 129 (L) 06/27/2024 K 4.9 06/27/2024 CO2 31 06/27/2024 CL 93 (L) 06/27/2024 BUN 31 (H) 06/27/2024 CREATININE 0.77 06/27/2024 EGFR 85 06/27/2024 CALCIUM 8.5 06/27/2024 MG 1.9 06/27/2024 PHOS 2.7 06/15/2024 ANIONGAP 5 06/27/2024 Imaging: CT Thoracic Spine wo Contrast Narrative: PROCEDURE: CT THORACIC SPINE WO CONTRAST HISTORY: 68 years Female Spinal fusion, thoracic, follow up s/p spinal fusion COMPARISON: 06/11/2024 TECHNIQUE: CT THORACIC SPINE WO CONTRAST. Coronal and sagittal reformatted images were obtained. Three-dimensional volume rendering is generated on an independent workstation. FINDINGS: Streak artifact from orthopedic hardware limits evaluation. Facet alignment is maintained. No fracture. Vertebral body alignment is maintained. T5-T8 posterior decompression and fusion. No obvious hardware complications. No fluid collection isseen, drain is present terminating along the posterior thecal sac at T5-T6.Posterior skin ronald are noted. Osteophyte at T6-T7 causes moderate spinal canal stenosis. Severe degenerative change lower cervical spine. Multilevel spondylolisthesis in the cervical spine. Left thyroid lobe hypodense nodule measures 2 cm. Small bilateral pleural effusions. Visualized heart is enlarged. Impression: Posterior decompression and fusion with drain present. No fluid collection. If further evaluation is indicated consider MRI. Left thyroid lobe nodule can be followed up with ultrasound. Bilateral pleural effusions. Report reviewed and signed by : Dr. Chetan Barclay on 06/14/2024 6:04 PM. Workstation Name - [id number] -------- FINAL REPORT -------- Dictated By: Chetan Barclay Dictated Date: 06/14/2024 17:59 ET Assigned Physician: Chetan Barclay Reviewed and Electronically Signed By: Chetan Barclay Signed Date: 06/14/2024 18:04 ET Workstation ID: [id number] Transcribed By: Self Edit Transcribed Date: 06/14/2024 17:59 ET ASSESSMENT & PLAN #Thoracic spinal stenosis, spinal mass, s/p 2 thoracic decompression surgeries 06/11 she was transferred to [facility] S/p T5-T8 fusion and T5-7 decompression T6-7 facetectomy and removal of mass. With Dr. Hall Bone and soft tissue, thoracic spine, T5-T8 excision with decompression: Fragments of benign bone and cartilage with focus of necrotic bone. No malignancy identified. Per rehab team. F/u with neurosurgery after discharge Improvement noted to left foot able to plantar and dorsiflex foot. Able to also have minimal toe movement on the right foot Bilateral lower extremity weakness Right lower extremity 0 on 5 Left lower extremity now she is able to plantar and dorsiflex prior she was only able to wiggle hertoes Decreased sensation to the right lower extremity and abdomen Neurogenic bladder/ bowel in the setting of spinal injury Pain management currently on gabapentin 800 mg twice a day--> reduce to 400mg TID Methylprednisone 4 mg/medrol dose pack taper Tizanidine 2 now off due hypotension. And denies spasms. #Neurogenic bowel bladder Currently with Varma catheter. Patient reports that her Varma catheter was exchanged during hospital course at [place] on or about 06/11 She was found to have pyuria and was treated with Macrobid Continue with bowel regimen/program Patient reports recent diarrhea loose stools which she attributes to aggressive bowel management prior to that normal bowel movements #History of cervical spondylolisthesis with central canal stenosis #Leukocytosis Mild 12,000 Likely reactive to steroids afebrile Is not appear to be infected acutely #Atrial flutter s/p ablation Recent history of bradycardia now on lower dose of BB Toprol XL 25 mg Heart rate in the 60s Monitor #Hypertension Now with recurrent low BP's /Hypotension Toprol XL 25 mg hold parameters Hydralazine 75 mg twice a day -> d/c triamterene/hydrochlorothiazide--> d/c also hypoNa Diovan 320 mg -> d/c rec IVF. Agree with d/c Tizanidine #hyponatremia Likely hypovolemia hyponatremia due to diarrhea and BP meds. Clinically dry. Diarrhea resolved Na improved was 124--> now 129 today S/p gentle ivf Rec continue gentle fluids and recheck labs in the am. #Anxiety Mood stable Maintain on doxepin 100 mg nightly Duloxetine 60 mg Trazodone 75 mg nightly #DVT prophylaxis with heparin 5000 units SQ 3 times daily DAILY CARE CHECKLIST * Vanita Melo RN - 06/27/2024 4:09 PM EST Patient with decreases BP this morning reported to [facility] YIP and Dr. Lara. See MAR medications changed, IV NA started, 500 ml Bolus then 75 ml/hr continuous. BP came up and patient able to participate in therapy without complication. * Shari Rivas RN - 06/27/2024 2:56 PM EST CM spoke to Kinjal at office regarding post op appt.Per Kinjal Mike gave permission for to remove patient ronald and send picture of incision site.Ptient will have a 6 weekfollow up appt on 08/06 at 1pm in the [address] office.Apoorva Genao at office will come by to see patient [facility] at [facility].Dr. Lara made aware. * Vero Wilson, LYSSA - 06/27/2024 2:21 PM EST [facility] Occupational Therapy Treatment Note 06/27/24 Patient: Yuly Montoya : 1955 Age: 68 y.o. Gender: female Diagnosis: Lower extremity weakness Primary Rehab (Etiologic) Diagnosis: Patient Active Problem List Diagnosis Lumbar spondylosis Onychomycosis Pain in toe Sacroiliitis (CMS/HCC) Spondylolisthesis Cervical spondylosis Spinal stenosis of thoracic region Thoracic spinal stenosis Age-related macular degeneration Anxiety Atrial flutter (CMS/HCC) Obstructive sleep apnea syndrome Deep vein thrombosis (DVT) of lower extremity (CMS/HCC) History of artificial joint Hypertension Osteoarthritis of hip Peripheral venous insufficiency S/P tonsillectomy and adenoidectomy Bradycardia Thoracic myelopathy Lower extremity weakness PMH: Past Medical History: Diagnosis Date Adverse effect of anesthesia several hrs after sx pt had Panic attack Anxiety Arthritis Hypertension Irregular heart beat Joint pain Lymphedema Macular degeneration PSH: Past Surgical History: Procedure Laterality Date ABLATION OF DYSRHYTHMIC FOCUS BACK SURGERY N/A s/p L2-3 decompression 09/13/[address] Markham, s/p lumbar discectomy Dr. Bales, L3-4, L4-[address] Yarbrough February 2012, subsequent L4-S1 fusion in [place] with Dr. Cagle. CARPAL TUNNEL RELEASE Right TONSILLECTOMY ADENOIDECTOMY, BILATERAL MYRINGOTOMY AND TUBES TOTAL HIP ARTHROPLASTY Left 2022 TOTAL KNEE ARTHROPLASTY Bilateral Allergies: has No Known Allergies. Precautions: Precautions Medical Precautions: Fall Risk Safety Interventions: Call doss within reach RUE Weight Bearing Status: Full LUE Weight Bearing Status: Full RLE Weight Bearing Status: Full LLE Weight Bearing Status: Full Orthopedic Precautions: Back Precautions Vitals: BP: (!) 140/80 Heart Rate: 61 Pain: Pain Assessment Pain Assessment: 0-10 Pain Score: 4 Pain Location: Back Subjective: I will try but I think I still tip Procedures/Interventions: ADLs/IADLs Self Care/Home Management (ADLs) Time Entry: 90 Upon arrival, pt supine in bed with RN present. Vitals taken prior to moving post bolus of fluids. Pt agreeable to participate in skilled OT session. RN and PCT completed corrina and posterior care prior to this therapist arriving. Pt requesting brief due to incontinence. Pt educatied on bowel program, skin breakdown, repositioning and turning schedule, pressure relief with pt verbalizing understanding. Pt completed rolling side to side mod A with use of bed rails. Pt required min repositioning ofB LE when rolling. LE dressing completed max A, pt attempting to assist in hiking pants from knees to hips. Pt attempting to roll and hike requiring assistance for thoroughness. Footwear donned dep. Pt HOB elevated to completed UE dressing and bathing. Pt completed overall partial A. Pt completed shirt partial A, requiring assistance pulling shirt down back. Pt able to use B bed rails to pull self unsupported in bed. Grooming and oral hygiene completed bedlevel due to blood pressure. Pt completed supine>Sit with HOB elevated max A x1, mod A x1 to assist with trunk uplift. Pt sat at EOB with 2 UE support steadying assist. Pt attempted with 1 UE support requiring mod A. Pt demo no spasms throughout and no increase of pain. Sit>supine max A. Boost in bed for good positioning prior to eating lunch. Vitals taken at end of session, 130/77. Pt left with HOB elevated, all 4 bedrails up per patient request, call doss within reach, sister present. OT Assessment OT Assessment OT Assessment Results: Decreased ADL status, Decreased endurance, Decreased sensation, Visual deficit, Decreased functional mobility, Decreased IADLs, Decreased trunk control for functional activities, Impaired tone Prognosis: Good Evaluation/Treatment Tolerance: Patient tolerated treatment well Comments: Pt reports feeling better after IV fluids, vitals stable throughout. Pt able to participate in ADL and sitting at EOB/ Medical Staff Made Aware: Yes Comments: skin, vitals OT Plan Plan Treatment Interventions: ADL retraining, Functional transfer training, UE strengthening/ROM, Endurance training, Equipment evaluation/education, Compensatory technique education, Continued evaluation OT Plan: Skilled OT OT Frequency : 5-7 days per week OT Duration of Sessions: 90 min per day OT Treatments per day: 1 time per day OT - Evaluation Status: Complete Equipment Recommended: (TBD) Barriers to Discharge: environemntal concerns, functional status, pt lives alone. 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 Dates: Start: 06/26/24 Expected End: 07/17/24 Goal: pt will be able to independently direct care, in order to perform toileting safely, while allowing greatest level of INDEPENDENCE (including DME use, txfer techniques, and strategies) Dates: Start: 06/26/24 Expected End: 07/17/24 Goal: Pt will tolerate 3/3 meals OOB Dates: Start: 06/26/24 Expected End: 07/17/24 Goal: Pt will perform LB dressing with partial A, use of LH ADAPTIVE EQUIPTMENT prn Dates: Start: 06/26/24 Expected End: 07/17/24 Goal: pt will perform toileting with overall max A. Dates: Start: 06/26/24 Expected End: 07/17/24 Goal: pt will don shirt with S, sitting unsupported. Dates: Start: 06/26/24 Expected End: 07/17/24 Description: Problem: OT Short Term Goals Dates: Start: 06/26/24 Goal: Pt will perform rolling R><L with use of log roll technique, partial A, for pressure relief. Dates: Start: 06/26/24 Expected End: 07/03/24 Goal: Pt will tolerate sitting OOB for 1/3 meals Dates: Start: 06/26/24 Expected End: 07/03/24 Goal: Pt will sit at EOB for 10 minutes, with no more than partial A for balance to increase Potter with EOB ADL Dates: Start: 06/26/24 Expected End: 07/03/24 Goal: Pt will verbalize 3 pressure relief techniques in order to reduce sophia of pressure injury Dates: Start: 06/26/24 Expected End: 07/03/24 Goal: Pt will perform oral hygiene w/c level, with JACINTO. Dates: Start: 06/26/24 Expected End: 07/03/24 Encounter Problems (Resolved) There are no resolved problems. Education Documentation Self Advocacy/Consumer Competency, taught by Vero Wilson OT at 06/27/2024 2:21 PM. Learner: Patient Readiness: Acceptance Method: Explanation Response: Verbalizes Understanding Skin Care/Pressure Ulcer Prevention, taught by Vero Wilson OT at 06/27/2024 2:21 PM. Learner: Patient Readiness: Acceptance Method: Explanation Response: Verbalizes Understanding ADL Training, taught by Vero Wilson OT at 06/27/2024 2:21 PM. Learner: Patient Readiness: Acceptance Method: Explanation Response: Verbalizes Understanding Home Exercise Program, taught by Vero Wilson OT at 06/27/2024 2:21 PM. Learner: Patient Readiness: Acceptance Method: Explanation Response: Verbalizes Understanding Precautions, taught by Vero Wilson OT at 06/27/2024 2:21 PM. Learner: Patient Readiness: Acceptance Method: Explanation Response: Verbalizes Understanding Body Mechanics, taught by Vero Wilson OT at 06/27/2024 2:21 PM. Learner: Patient Readiness: Acceptance Method: Explanation Response: Verbalizes Understanding Wound/Incision Care, taught by Vero Wilson OT at 06/27/2024 2:21 PM. Learner: Patient Readiness: Acceptance Method: Explanation Response: Verbalizes Understanding Activity/Positioning, taught by Vero Wilson OT at 06/27/2024 2:21 PM. Learner: Patient Readiness: Acceptance Method: Explanation Response: Verbalizes Understanding Bladder Care, taught by Vero Wilson OT at 06/27/2024 2:21 PM. Learner: Patient Readiness: Acceptance Method: Explanation Response: Verbalizes Understanding Fall Precautions, taught by Vero Wilson OT at 06/27/2024 2:21 PM. Learner: Patient Readiness: Acceptance Method: Explanation Response: Verbalizes Understanding Education Comments No comments found. Start/Stop Time OT Time Calculation OT Start Time: 1015 OT Stop Time: 1145 OT Time Calculation (min): 90 min Therapy Minutes: Occupational Therapy OT Individual: 90 * Shari Rivas RN - 06/27/2024 1:35 PM EST Team Meeting: CM Met with patient at bedside to discuss recommendations from team meeting.Tentative discharge date set for 07/17 [facility] vs SNF TBD.Patient is participating with OT PT and working towards her therapy goals.Patient therapy was on hold yesterday due to low BP.Patient is currently max-total assist with her ADLs and max-total assist for transfers clarisa lift.Patient is very motivated to participate in therapy and is very happy to be back at [facility] and is hopeful she will regain use of her LE.Patient is in agreement with team recommendations and discharge date had no further questions or concerns. * Jocelyn Carballo, PT - 06/27/2024 12:30 PM EST [facility] Physical Therapy Treatment Note 06/27/2024 Patient: Yuly Montoya : 1955 Age: 68 y.o. Gender: female Primary Language: Tristanian Diagnosis: Lower extremity weakness Past Medical History: Diagnosis Date Adverse effect of anesthesia several hrs after sx pt had Panic attack Anxiety Arthritis Hypertension Irregular heart beat Joint pain Lymphedema Macular degeneration Past Surgical History: Procedure Laterality Date ABLATION OF DYSRHYTHMIC FOCUS BACK SURGERY N/A s/p L2-3 decompression 09/13/[address] Markham, s/p lumbar discectomy Dr. Bales, L3-4, L4-[address] Yarbrough February 2012, subsequent L4-S1 fusion in [place] with Dr. Cagle. CARPAL TUNNEL RELEASE Right TONSILLECTOMY ADENOIDECTOMY, BILATERAL MYRINGOTOMY AND TUBES TOTAL HIP ARTHROPLASTY Left 2022 TOTAL KNEE ARTHROPLASTY Bilateral Allergies: has No Known Allergies. Precautions: Medical Precautions: Fall Risk Safety Interventions: Call doss within reach RUE Weight Bearing Status: Full LUE Weight Bearing Status: Full RLE Weight Bearing Status: Full LLE Weight Bearing Status: Full Orthopedic Precautions: Back Precautions NURSING RECOMMENDATIONS Bed Mobility: min A rolling, bed rails up, spinal precautions Transfers: clarisa Ambulation: none SUBJECTIVE Pt report: I'm doing better sitting than I thought I would Pain: Pain Assessment: 0-10 Pain Score: 5 - Moderate pain Pain Location: Back Pain Orientation: Mid OBJECTIVE General Observation: Pt in bed, eager for PT. Vitals: BP: 131/83 Heart Rate: 58 SpO2: 99 % Procedure/Treatment: Neuromuscular Reeducation: Balance/Neuromuscular Re-Education Neuromuscular Re-Education Time Entry: 100 Pt received in bed, eager for PT. Rolling both directions partial A to place clarisa pad, pt using bedrails with assist to bend knee. Clarisa to wheelchair. Supervision wheelchair mobility to the gym, assist for managing IV line. Clarisa to therapy mat. Pt requiring partial A for sitting with BUE support. Progressed to sitting with unilateral support, completing single arm raises. Cued for contralateral weight shift first to increase JONATHON, then moving other UE, better balance noted. Progressed to reaching activity with single UE support, adhering to spinal precautions. Pt unable to sit unsupported at this time without max A. Completed slideboard transfer max Ax2, third assist to stabilize wheelchair and assist pt with hand placement. Pt having posterior LOB while on slideboard, assist for trunk flexion to regain balance. Cues for hand placement and positioning throughout transfer. Assist to place/remove board. Pt able to scoot posteriorly in chair to reposition, partial A. Pt demonstrating active DF/PF of LLE and HS with knee flexion, completed x10 reps AROM L knee flexion in sitting. Supervision wheelchair mobility back to room. Pt positioned well in wheelchair, BP stable throughout, wanting to trial sitting up in wheelchair, RN and small parts shaper operator aware. At end of session, pt left in wheelchairwith alarm set, call doss within reach and all needs met. Education: Education Documentation Precautions, taught by Jocelyn Carballo PT at 06/27/2024 4:05 PM. Learner: Patient Readiness: Eager Method: Explanation, Demonstration Response: Verbalizes Understanding, Demonstrated Understanding, Needs Reinforcement Comment: sitting balance, wc mobility, slideboard transfers Mobility Training, taught by Jocelyn Carballo PT at 06/27/2024 4:05 PM. Learner: Patient Readiness: Eager Method: Explanation, Demonstration Response: Verbalizes Understanding, Demonstrated Understanding, Needs Reinforcement Comment: sitting balance, wc mobility, slideboard transfers Education Comments No comments found. ASSESSMENT PT Assessment PT Assessment Results: Decreased strength, Decreased endurance, Impaired balance, Impaired gait, Decreased mobility, Decreased coordination, Impaired sensation, Decreased skin integrity, Orthopedic restrictions, Pain Prognosis: Fair Evaluation/Treatment Tolerance: Patient tolerated treatment well Comments: Pt's BP stable sitting entire session. Partial A for sitting balance with UE support. Difficulty with slideboard transfers, to continue to benefit from mass rep practice for slideboards. Equipment: TBD Plan of Care Plan Treatment/Interventions: Functional transfer training, LE strengthening/ROM, Patient/family training, Bed mobility, Balance training, Gait training PT Plan: Skilled PT PT Frequency: 5 days per week PT Duration of Sessions: 90 min per day PT Treatments per day: 1 time per day PT Discharge Recommendations: (TBD) Equipment Recommended: TBD Problems/Goals Goals: Encounter Problems Encounter Problems (Active) Template: Physical Therapy Problem: PT Assisted Goals Dates: Start: 06/26/24 Goal: Mod I rolling Dates: Start: 06/26/24 Expected End: 07/17/24 Goal: Partial A transfers LRAD with pt directing care Dates: Start: 06/26/24 Expected End: 07/17/24 Goal: Sit <> supine partial A, pt directing care adhering to spinal precautions Dates: Start: 06/26/24 Expected End: 07/17/24 Goal: Mod I wheelchair mobility x150' Dates: Start: 06/26/24 Expected End: 07/17/24 Goal: Pt will sit independently x15 min Dates: Start: 06/26/24 Expected End: 07/17/24 Problem: PT Short Term Goals Dates: Start: 06/26/24 Goal: Supervision rolling Dates: Start: 06/26/24 Expected End: 07/03/24 Goal: Sit <> supine max Ax1 Dates: Start: 06/26/24 Expected End: 07/03/24 Goal: Max A + partial A slideboard transfers Dates: Start: 06/26/24 Expected End: 07/03/24 Goal: Supervision wheelchair mobility x100' Dates: Start: 06/26/24 Expected End: 07/03/24 Goal: Pt will sit with UE support x5 min supervision/steadying A Dates: Start: 06/26/24 Expected End: 07/03/24 Encounter Problems (Resolved) There are no resolved problems. Session Start/Stop Time: 1230 1410 Therapy Minutes Physical Therapy PT Individual: 100 * Darline Lara DO - 06/27/2024 11:35 AM EST Images from the original note were not included. [facility] Daily Progress Note Patient name: Yuly Montoya : 1955 SUBJECTIVE: Patient seen and examined at bedside today. No acute events overnight. Denies headaches, dizziness,shortness of breath, chest pain, nausea. Varma in place. Reports feeling bloated and requested suppository today. Bowel program will be initiated. Patient reports that pain is controlled with use of Oxycodone. She reports that spasms have remained controlled. Hypotension continues. Medicine team following. Will give additional IVF today. TEAM CONFERENCE: I was present and participated in team meeting today. I agree with team conferenceplan as documented in alternate note today. Please refer to team conference note for further details. OBJECTIVE: Vitals: 06/27/24 0913 06/27/24 0915 06/27/24 1015 06/27/24 1025 BP: 84/50 84/50 (!) 140/80 108/60 BP Location: Left arm Patient Position: Lying Pulse: 68 68 61 64 Resp: 16 Temp: 36.4 ??C (97.5 ??F) 36.5 ??C (97.7 ??F) TempSrc: Oral SpO2: 95% Weight: Physical Examination: General: Alert, in no acute cardiopulmonary distress. Mental Status: Oriented to person, place and time. Normal affect. Head: Normocephalic. Eyes: Pupils are equal, round and reactive to light. Extraocular muscles intact. Ear, Nose and Throat: Oropharynx clear, mucous membranes moist. Ears and nose without masses, lesions or deformities. Neck: Supple, Trachea midline. Respiratory: Clear to auscultation and percussion. No wheezing, rales or rhonchi. Cardiovascular: Heart sounds normal. No thrills. Regular rate and rhythm, no murmurs, rubs or gallops. Gastrointestinal: Abdomen soft, non-tender, non-distended. Normal bowel sounds. Genitourinary: +Varma catheter in place with clear yellow urine in bag. Neurologic: b/l LE weakness. Decreased ssensation to b/l LE R>l and decreased sensation to abd Skin: No rashes or lesions. No petechiae or purpura. No edema. Musculoskeletal: RLE 0/5 strength. LLE 0/5 hip flexion and knee extension. LLE 1/5 left dorsiflexion and plantarflexion. CURRENT INPATIENT MEDICATIONS: Current Facility-Administered Medications: acetaminophen (TYLENOL) tablet 650 mg, 650 mg, oral, q6h PRN, THEODORA Lawson, 650 mg at 06/26/24 1508 ALPRAZolam (XANAX) tablet 0.5 mg, 0.5 mg, oral, Nightly PRN, THEODORA Lawson, 0.5 mg at 06/26/24 2122 aluminum-magnesium hydroxide-simethicone (MAALOX) 200-200-20 mg/5 mL suspension 30 mL, 30 mL, oral,q4h PRN, THEODORA Lawson bisacodyL (DULCOLAX) suppository 10 mg, 10 mg, rectal, Daily PRN, THEODORA Lawson bisacodyL (DULCOLAX) suppository 10 mg, 10 mg, rectal, Daily, Darline Lara DO docusate sodium (COLACE) capsule 100 mg, 100 mg, oral, BID, Amber Ritchie, THEODORA, 100 mg at 8 doxepin (SINEquan) capsule 100 mg, 100 mg, oral, Nightly, THEODORA Lawson, 100 mg at 06/26/242119 DULoxetine (CYMBALTA) DR capsule 60 mg, 60 mg, oral, Daily, THEODORA Lawson, 60 mg at 06/27/24 09 famotidine (PEPCID) tablet 20 mg, 20 mg, oral, Daily, THEODORA Lawson, 20 mg at 06/27/24 09 gabapentin (NEURONTIN) capsule 400 mg, 400 mg, oral, q8h EDEN, Darline Lara DO heparin (UFH) injection 5,000 Units, 5,000 Units, subcutaneous, q8h EDEN, THEODORA Lawson, 5,000Units at 06/27/24 0554 magnesium hydroxide (MILK OF MAGNESIA) 400 mg/5 mL suspension 30 mL, 30 mL, oral, Daily PRN, THEODORA Lawson methylPREDNISolone (MEDROL) tablet 4 mg, 4 mg, oral, Daily, THEODORA Lawson, 4 mg at 06/27/24 0921 metoprolol succinate (TOPROL-XL) 24 Hour tablet 25 mg, 25 mg, oral, Daily, THEODORA Pope oxyCODONE (ROXICODONE) immediate release tablet 5 mg, 5 mg, oral, q6h PRN, THEODORA Lawson, 5 mg at 06/27/24 0924 senna (SENOKOT) tablet 17.2 mg, 2 tablet, oral, BID, THEODORA Lawson sodium chloride 0.9 % flush 3 mL, 3 mL, intravenous, TID, THEODORA Pope, 3 mL at 06/27/24 1033 sodium chloride 0.9 % infusion, 75 mL/hr, intravenous, Continuous, THEODORA Pope traZODone (DESYREL) tablet 75 mg, 75 mg, oral, Nightly, THEODORA Lawson, 75 mg at 06/26/240 LABS: Lab Results Component Value Date WBC 9.8 06/27/2024 RBC 3.50 (L) 06/27/2024 HGB 10.4 (L) 06/27/2024 HCT 31.5 (L) 06/27/2024 MCV 91.0 06/27/2024 MCHC 33.0 06/27/2024 RDW 15.3 (H) 06/27/2024 PLT 177 06/27/2024 MPV 9.9 06/27/2024 NRBC 0.0 06/27/2024 DIFF Lab Results Component Value Date LYMPHOPCT 11.0 06/26/2024 NEUTROABS 8.99 (H) 06/26/2024 LYMPHSABS 1.40 06/26/2024 MONOABS 1.86 (H) 06/26/2024 EOSABS 0.10 06/26/2024 BASOSABS 0.03 06/26/2024 IMMGRANABS 0.35 (H) 06/26/2024 RETIC No results found for: RETIC , RETICCTPCT Lab Results Component Value Date NA 129 (L) 06/27/2024 K 4.9 06/27/2024 CL 93 (L) 06/27/2024 CO2 31 06/27/2024 GLUCOSE 88 06/27/2024 BUN 31 (H) 06/27/2024 CREATININE 0.77 06/27/2024 CALCIUM 8.5 06/27/2024 PROT 5.0 (L) 06/27/2024 ALBUMIN 2.9 (L) 06/27/2024 BILITOT 0.7 06/27/2024 AST 19 06/27/2024 ALT 22 06/27/2024 PHOS 2.7 06/15/2024 MG 1.9 06/27/2024 ALKPHOS 82 06/27/2024 EGFR 85 06/27/2024 IMPRESSION & PLAN: #Impaired mobility and self care -Secondary to thoracic myelopathy -Continue with PT, OT, and nursing care #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 -s/p T5-T8 fusion and T5-7 decompression T6-7 facetectomy and removal of mass (non malignant) by [facility] [place] -Betadine to surgical incision daily and leave open to air -continue therapies -Methylprednisolone 4 mg daily until 07/01/2024 -Tizanidine 2 mg daily 06/26 held due to hypotension --> discontinued on 06/27 due to hypotension -f/u NSG after discharge #Pain management -Tylenol 975mg Q8H -Gabapentin 800 mg BID --> changed to 400mg Q8H on 06/27 due to hypotension -Oxycodone 5mg Q6H PRN #Hypotension -will give additional IVF on 06/27 -medications adjusted as outlined below -monitor #Hypertension -Hydralazine 75 mg BID discontinued 06/27 due to hypotension -Dyazide 37.5-25 mg daily discontinued 06/26 due to hypotension -Valsartan 320 mg daily discontinued 06/26 due to hypotension -Metoprolol succinate 25 mg daily 06/26 held due to hypotension #Anxiety -Doxepin 100 mg nightly -Duloxetine 60 mg daily -Trazodone 75 mg nightly -Xanax 0.5mg QHS PRN #GERD -Famotidine 20 mg daily #Hyponatremia -sodium 124 on 06/26 --> 129 on 06/27 -continue IVF -monitor with routine labs #Neurogenic bladder -Varma catheter in place #Neurogenic bowel -Colace 100mg BID -start suppository daily on 06/27 (will hold suppository until BP stabilizes) DVT ppx: Heparin 5000 units SQ TID * Ayaka Baker RN - 06/27/2024 4:42 AM EST Keerthi YIP notified pt's repeat BP after Albumin 103/54, hr 55. Orders to pass on to morning ship to hold am BP meds. * Ayaka Baker RN - 06/27/2024 3:32 AM EST Problem: Cognitive: Rosalind Beltran Fall Risk Goal: Volume and Electrolyte Status Outcome: Not Progressing Problem: Cognitive: Rosalind Devin Fall Risk Goal: Last Known Fall Outcome: Progressing Goal: Mobility requiring assistance of person or device Outcome: Progressing Goal: Dizziness Outcome: Progressing Goal: Medications Outcome: Progressing Goal: Mental Status/LOC/Awareness Outcome: Progressing Goal: Toileting Needs Outcome: Progressing Goal: Communication/Sensory Outcome: Progressing Goal: Behavior Outcome: Progressing Problem: Skin Integrity: Pressure Injury Actual or Risk of Goal: Will not develop new pressure injury Outcome: Progressing Goal: Skin integrity will improve Outcome: Progressing Goal: Risk for impaired skin integrity will decrease Outcome: Progressing Problem: Activity:Pressure Injury Actual or Risk of Goal: Mobility will improve Outcome: Progressing Problem: Nutritional:Pressure Injury Actual or Risk of Goal: Nutritional status will improve Outcome: Progressing Problem: Patient Specific Problem: Pressure Injury Actual or Risk of Goal: Patient Specific Outcome Outcome: Progressing Goals: Identify possible barriers to meeting goals/advancing plan of care: Pt having issues with hypotension. Stability of the patient: Unstable - High likelihood or risk of patient condition declining or worsening End of Shift Summary: Pt's BP 76/38 after IV fluids complete, CARIDAD notified, see orders for albuminadministration. Will recheck BP after medication is finished and update provider. HOB lowered, pt tolerating well. Pt denies any dizziness or new weakness. Call doss in reach, pt encouraged to use the doss for any needs or new symptoms. * Ayaka Baker RN - 06/27/2024 3:25 AM EST Keerthi YIP, CARIDAD service notified the pt's BP is 76/38, hr 61 after IV fluids taken down. Pt not symptomatic, denies dizziness or weakness. Order for Albumin placed by PA. Med not available on the unit. Pharmacy called and stated the tech is on route to the unit with the medication. * Jocelyn Carballo, PT - 06/26/2024 2:00 PM EST [facility] Physical Therapy Evaluation Note 06/26/24 Patient: Yuly Montoya : 1955 Age: 68 y.o. Gender: female Primary Language: Tristanian Diagnosis: Lower extremity weakness HPI: see EMR Past Medical History: Diagnosis Date Adverse effect of anesthesia several hrs after sx pt had Panic attack Anxiety Arthritis Hypertension Irregular heart beat Joint pain Lymphedema Macular degeneration Past Surgical History: Procedure Laterality Date ABLATION OF DYSRHYTHMIC FOCUS BACK SURGERY N/A s/p L2-3 decompression 09/13/[address] Markham, s/p lumbar discectomy Dr. Bales, L3-4, L4-[address] Yarbrough February 2012, subsequent L4-S1 fusion in [place] with Dr. Cagle. CARPAL TUNNEL RELEASE Right TONSILLECTOMY ADENOIDECTOMY, BILATERAL MYRINGOTOMY AND TUBES TOTAL HIP ARTHROPLASTY Left 2022 TOTAL KNEE ARTHROPLASTY Bilateral Allergies: has No Known Allergies. Precautions: Medical Precautions: Fall Risk Safety Interventions: Call doss within reach, ID band on RUE Weight Bearing Status: Full LUE Weight Bearing Status: Full RLE Weight Bearing Status: Full LLE Weight Bearing Status: Full Orthopedic Precautions: Back Precautions NURSING RECOMMENDATIONS Bed Mobility: min A rolling, bed rails up, spinal precautions Transfers: clarisa Ambulation: none SUBJECTIVE Prior Level of Function: Level of Potter: Independent with mobility and functional transfers Ambulation Status: Community ambulator Indoor Mobility Assistance: Independent Stairs Assistance : Independent Prior Device Use: Cane (cane outdoors, no AD inside) Do you drive?: Yes Mode of Transportation: Car Vocational: Retired Which is your dominant hand?: Right Understanding of Current Condition: Pt understands Home Living: Type of Home: Condo Lives With: Alone Home Adaptive Equipment: Cane Home Layout: Two level Alternate Level Stairs-Rails: Rail on the right going up Alternate Level Stairs-Number of Steps: 14 Entrance Stairs-Rails: Rail on the right going up Entrance Stairs-Number of Steps: 4 Bathroom Shower/Tub: Tub/shower unit Bathroom Toilet: Handicapped height (on first floor) Bathroom Equipment: Grab bars in shower, Shower chair without back (suction cup grab bar) Pain: Pain Assessment: 0-10 Pain Score: 5 - Moderate pain Pain Type: Surgical pain Pain Location: Back Pain Orientation: Mid OBJECTIVE General Observation: Pt in bed, eager to participate in PT evaluation. Cognition/Communication: Orientation Level: Oriented X4 Vitals: BP: 103/63 Heart Rate: 66 Skin: R heel slightly pink but blanchable, L heel intact, dry skin throughout lower extremities Defer to nursing documentation for full skin assessment Sensation: Light Touch: Severe deficits in the RLE, Partial deficits in the LLE (absent sensation RLE up to grossly T5 dermatome. LLE intact light touch and localization, diminished sensation in foot compared to proximal) Proprioception: Proprioception: Severe deficits in the RLE, Partial deficits in the LLE (absent RLE; LLE impaired proprioception at 1st MTP and talocrural joint, intact at knee) Perception: Inattention/Neglect: Appears intact Initiation: Appears intact Motor Planning: Appears intact Coordination: Coordination: Fine and gross motor impaired Postural Control: To be assessed tomorrow Balance: To be assessed tomorrow Strength: Strength RLE RLE Overall Strength: (0/5) Strength LLE L Hip Flexion: 0/5 L Hip Extension: 0/5 L Knee Flexion: 0/5 L Knee Extension: 0/5 L Ankle Dorsiflexion: 2+/5 L Ankle Plantar Flexion: 2+/5 Range of Motion: PROM WFL Edema: Minimal edema Tone: Decreased tone RLE and LLE QUALITY INDICATORS SCORING: Bed Mobility Roll Left and Right Assistance Needed: Physical assistance Physical Assistance Level: 25% or less Comment: bedrails CARE Score - Roll Left and Right: 3 Sit to Lying Assistance Needed: Physical assistance Physical Assistance Level: Total assistance CARE Score - Sit to Lyin Lying to Sitting on Side of Bed Assistance Needed: Physical assistance Physical Assistance Level: Total assistance CARE Score - Lying to Sitting on Side of Bed: 1 Transfers Sit to Stand Reason if not Attempted: Safety concerns CARE Score - Sit to Stand: 88 Chair/Gfh-ol-Cohpe Transfer Assistance Needed: Physical assistance Physical Assistance Level: Total assistance Comment: clarisa CARE Score - Chair/[id number]-Rcpgj Transfer: 1 Toilet Transfer Assistance Needed: Physical assistance Physical Assistance Level: Total assistance Comment: clarisa CARE Score - Toilet Transfer: 1 Car Transfer Reason if not Attempted: Safety concerns CARE Score - Car Transfer: 88 Ambulation Walk 10 Feet Reason if not Attempted: Safety concerns CARE Score - Walk 10 Feet: 88 Walk 50 Feet with Two Turns Reason if not Attempted: Safety concerns CARE Score - Walk 50 Feet with Two Turns: 88 Walk 150 Feet Reason if not Attempted: Safety concerns CARE Score - Walk 150 Feet: 88 Walking 10 Feet on Uneven Surfaces Reason if not Attempted: Safety concerns CARE Score - Walking 10 Feet on Uneven Surfaces: 88 Stairs 1 Step (Curb) Reason if not Attempted: Safety concerns CARE Score - 1 Step (Curb): 88 4 Steps Reason if not Attempted: Safety concerns CARE Score - 4 Steps: 88 12 Steps Reason if not Attempted: Safety concerns CARE Score - 12 Steps: 88 Senior Embedded Software Engineer Object Picking Up Object Reason if not Attempted: Safety concerns CARE Score - Picking Up Object: 88 Wheelchair Uses a Wheelchair/Scooter? Uses a Wheelchair/Scooter?: Yes Narrative: Pt in bed, agreeable to PT. Completed assessment in supine, see above for objective measures. Rolling both directions partial A with use of bedrail, assist to bend knee. Dependent to don pants via rolling. Performed ROM of lower extremities, pt becoming incontinent of bowel with hip flexion motion.Partial A rolling for clothing management, pt able to maintain sidelying position, dependent for posterior hygiene, new brief and pants donned. RN in to assess buttocks and skin due to redness, barrier cream applied for protection. Education provided on importance of turning and repositioning schedule, pt wanting to stay on her back at this time but verbalizing she will ask to be repositioned in a few hours onto her side. Applied SCDs and PUPP boots to lower extremities for skin protection. Reviewed spinal precautions. At end of session, pt left in bed with alarm set, call doss within reach and all needs met. PT ASSESSMENT: PT Assessment Results: Decreased strength, Decreased endurance, Impaired balance, Impaired gait, Decreased mobility, Decreased coordination, Impaired sensation, Decreased skin integrity, Orthopedic restrictions, Pain Prognosis: Fair Evaluation/Treatment Tolerance: Patient tolerated treatment well Patient to benefit from this level of care to address above impairments to assist patient in maximizing independence and being able to direct care. Physical therapy plan of care to include gait training, neuromuscular re- education, therapeutic activities, therapeutic exercise, and wheelchair mobilit y. PT POC for 3 weeks. PT PLAN: Treatment/Interventions: Functional transfer training, LE strengthening/ROM, Patient/family training, Bed mobility, Balance training, Gait training PT Plan: Skilled PT PT Frequency: 5 days per week PT Duration of Sessions: 90 min per day PT Treatments per day: 1 time per day PT Discharge Recommendations: (TBD) Equipment Recommended: TBD Goals: Encounter Problems Encounter Problems (Active) Template: Physical Therapy Problem: PT Mh Teacher Goals Dates: Start: 06/26/24 Goal: Mod I rolling Dates: Start: 06/26/24 Expected End: 07/17/24 Goal: Partial A transfers LRAD with pt directing care Dates: Start: 06/26/24 Expected End: 07/17/24 Goal: Sit <> supine partial A, pt directing care adhering to spinal precautions Dates: Start: 06/26/24 Expected End: 07/17/24 Goal: Mod I wheelchair mobility x150' Dates: Start: 06/26/24 Expected End: 07/17/24 Goal: Pt will sit independently x15 min Dates: Start: 06/26/24 Expected End: 07/17/24 Problem: PT Short Term Goals Dates: Start: 06/26/24 Goal: Supervision rolling Dates: Start: 06/26/24 Expected End: 07/03/24 Goal: Sit <> supine max Ax1 Dates: Start: 06/26/24 Expected End: 07/03/24 Goal: Max A + partial A slideboard transfers Dates: Start: 06/26/24 Expected End: 07/03/24 Goal: Supervision wheelchair mobility x100' Dates: Start: 06/26/24 Expected End: 07/03/24 Goal: Pt will sit with UE support x5 min supervision/steadying A Dates: Start: 06/26/24 Expected End: 07/03/24 Encounter Problems (Resolved) There are no resolved problems. Education Documentation Precautions, taught by Jocelyn Carballo, PT at 06/26/2024 3:59 PM. Learner: Patient Readiness: Acceptance Method: Explanation, Demonstration Response: Verbalizes Understanding, Needs Reinforcement Comment: bed mobility, spinal precautions, POC, skin integrity, turning and repositioning schedule,toileting schedule, pressure relief Mobility Training, taught by Jocelyn Carballo, PT at 06/26/2024 3:59 PM. Learner: Patient Readiness: Acceptance Method: Explanation, Demonstration Response: Verbalizes Understanding, Needs Reinforcement Comment: bed mobility, spinal precautions, POC, skin integrity, turning and repositioning schedule,toileting schedule, pressure relief Education Comments No comments found. Session Start/Stop Time: 1400 1530 Therapy Minutes Physical Therapy PT Individual: 90 * Shari Rivas RN - 06/26/2024 12:24 PM EST Initial Assessment: CM Met with patient with patient at bedside for initial assessment.Patient is a readmission was sent from [facility] to [facility]. Introduced self explained role in plan of care and discharge planning.Discussed IRF level of care,Team meeting and Avg LOS. Verified demographics,Ins,PCP.Patient lives alone with her dog(neighbor is caring for)in a 2 level condo has 4 steps to enter with R handrail her bedroom and full bathroom are located on the 2nd floor 13 steps with R handrail.Laundry is located in the basement. Prior to her hospitalization patient was independent with her ADLS and IADLs she ambulates with no device and drives.She manages her own medications.Does all of her own cooking cleaning ,laundry,shopping and manages her own finances. 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 Patient has a hx of depression does not have a therapist managed with medication no hx of anxiety has needed anxiety medication during her hospitalization due to her current medical status.Patient was using tobacco daily smoke 1/2 pack a day ETOH rarely and uses Marijuana rarely.Will have SW see patient. Discussed discharge plan with patient.Her plan is to return home states she would need to be able to care for herself.She states that the Neurosurgeon explained to her that her recovery could take a long time.Patient is happy to be back at [facility] and is very motivated to work with therapy. She is agreeable to VNA services her friend Clare would provide transport on discharge.CM will follow for discharge planning needs. * Zenaida Munson RN - 06/26/2024 9:56 AM EST 09:00 am, bp low, apicl pulse regular, pt alert/orient x 3. No respiratory distress.ginformed THEODORA Parish,[place] of low bp. PT REPORTED SHE HAD DIARRHEA FOR 3 DAYS PREIOR TODAY, HELD AM BOEL MEDS,BP MEDS. GABAPENTIN PRESCRIBED.orders received for iv bolus 250cc NS then 75cc/hr(500cc NS) adm.Pt denied pain. PT REPOSITIONED FOR HYGIENE, LEFT BUTTOVKS RED, SKIN INTACT. MEPILEX FOAM APPLIED. COCCYX CLEAN FREE OF REDNESS, ALLEVYN FOAM APPLKIED PROPHYLACTICALLY. SPINAL INCISION DRESSING REMOVED, VIEWD BY MED PROVIDER IGNACIA, INSTRUCTED TO APPLY BETADINE TO INCISIONAL LINE. 2 SEROUS DRG ON OLD DRESSING GAUZE DRESSING APPLIED WITH METIPORE TAPE. SKIN TO LEFT INCISIONAL BARDER RED, TAPE TEARS, ZGARD APPLIED TO TEARS. * Ben Miller, LYSSA - 06/26/2024 8:30 AM EST [facility] Occupational Therapy Evaluation Note 06/26/24 Patient: Yuly Montoya : 1955 Age: 68 y.o. Gender: female Primary Language: Tristanian Diagnosis: Lower extremity weakness Primary Rehab (Etiologic) Diagnosis: Patient Active Problem List Diagnosis Lumbar spondylosis Onychomycosis Pain in toe Sacroiliitis (CMS/HCC) Spondylolisthesis Cervical spondylosis Spinal stenosis of thoracic region Thoracic spinal stenosis Age-related macular degeneration Anxiety Atrial flutter (CMS/HCC) Obstructive sleep apnea syndrome Deep vein thrombosis (DVT) of lower extremity (CMS/HCC) History of artificial joint Hypertension Osteoarthritis of hip Peripheral venous insufficiency S/P tonsillectomy and adenoidectomy Bradycardia Thoracic myelopathy Lower extremity weakness PMH: Past Medical History: Diagnosis Date Adverse effect of anesthesia several hrs after sx pt had Panic attack Anxiety Arthritis Hypertension Irregular heart beat Joint pain Lymphedema Macular degeneration PSH: Past Surgical History: Procedure Laterality Date ABLATION OF DYSRHYTHMIC FOCUS BACK SURGERY N/A s/p L2-3 decompression 09/13/[address] Markham, s/p lumbar discectomy Dr. Bales, L3-4, L4-[address] Yarbrough February 2012, subsequent L4-S1 fusion in [place] with Dr. Cagle. CARPAL TUNNEL RELEASE Right TONSILLECTOMY ADENOIDECTOMY, BILATERAL MYRINGOTOMY AND TUBES TOTAL HIP ARTHROPLASTY Left 2022 TOTAL KNEE ARTHROPLASTY Bilateral Allergies: has No Known Allergies. Precautions: Precautions Medical Precautions: Fall Risk Safety Interventions: Call doss within reach, ID band on RUE Weight Bearing Status: Full LUE Weight Bearing Status: Full RLE Weight Bearing Status: Full LLE Weight Bearing Status: Full Orthopedic Precautions: Back Precautions NURSING RECOMMENDATIONS ADL Comments: Pt in elevated supine reporting feeling woozy, vitals assessed see above, RN and PAnotified. PA requesting pt remain bed level for session. RN in to assess. Pt bathed UB with S. Pt donned shirt with partial A for hiking down posteriorly. Pt performed corrina hygiene and bathing of proximal Les in elevated supine. Pt lowering HOB, cues for no twisting. Assist to bathe distal Les including feet. Dep for footwear. Skin check to B heels. Pt rolled R><L with max A and assist to flex knee to perform log roll, with use of bed rail. RN present to assess buttocks, apply Z guard cream, place Allevyn, and change dressing. Redness noted on bottom. Dep for posterior hygiene. Dep for changing dio pad. At end of session pt agreeable to be positioned in side lying for pressure relief, education provided on benefits. Max A for positioning in side lying with pillow place between B knees and posteriorly. Call doss in reach, bed alarm on, and all needs met. B PUPP boots donned. SUBJECTIVE Patient Subjective: I am happy to be back. Home Living: Type of Home: Condo Lives With: Alone Home Adaptive Equipment: Cane Home Layout: Two level Alternate Level Stairs-Rails: Rail on the right going up Alternate Level Stairs-Number of Steps: 14 Entrance Stairs-Rails: Rail on the right going up Entrance Stairs-Number of Steps: 4 Bathroom Shower/Tub: Tub/shower unit Bathroom Toilet: Handicapped height (on first floor) Bathroom Equipment: Grab bars in shower, Shower chair without back (suction cup grab bar) Prior Level of Function: Level of Potter: Independent with mobility and functional transfers Ambulation Status: Community ambulator Indoor Mobility Assistance: Independent Stairs Assistance : Independent Prior Device Use: Cane (cane outdoors, no AD inside) Do you drive?: Yes Mode of Transportation: Car Vocational: Retired Which is your dominant hand?: Right ADL/IADL History: ADL Assistance (Self Care): Independent (pt returns to rehab post spinal surgery,continuing to require assistance with all self care and mobility.) Homemaking Assistance (Functional Cognition): Independent 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 socializing with people. Social History: Social History Tobacco Use Smoking status: Former Current packs/day: 0.00 Types: Cigarettes Quit date: 05/2024 Years since quittin.1 Passive exposure: Never Smokeless tobacco: Never Substance Use Topics Alcohol use: Not Currently Comment: occasionally Drug use: Yes Types: Marijuana/Cannabis Comment: occasionally Understanding of Current Condition: understands OBJECTIVE General Observation: pt pleasant and cooperative throughout. Cognition/Communication: Cognition Overall Cognitive Status: Within Functional Limits Arousal/Alertness: Appropriate responses to stimuli Orientation Level: Oriented X4 Following Commands: Follows all commands and directions without difficulty Safety Judgment: Good awareness of safety precautions Attention Span: Appears intact Insight: Good insight into deficits Perseveration: Not present Vitals: BP: (!) 70/44 Heart Rate: 62 Supine. Pain: Pain Assessment: 0-10 Pain Score: 5 - Moderate pain Pain Location: (unspecified) Pain Interventions: Repositioned Skin: B heels intact, provided with PUPP boots, air bed to be placed, redness on bottom, varma catheter in place. FUNCTIONAL ASSESSMENTS ADL ASSIST Eating Assistance Needed: Set-up / clean-up Oral Hygiene Oral Hygiene Assistance Needed: Set-up / clean-up CARE Score - Oral Hygiene: 5 Toileting Toileting Hygiene Assistance Needed: Physical assistance Physical Assistance Level: Total assistance Comment: bed level CARE Score - Toileting Hygiene: 1 Bathing Shower/Bathe Self Assistance Needed: Physical assistance Physical Assistance Level: 76% or more Comment: bed level CARE Score - Shower/Bathe Self: 2 UE Dressing Upper Body Dressing Assistance Needed: Physical assistance Physical Assistance Level: 26%-50% Comment: bed level CARE Score - Upper Body Dressin LE Dressing Lower Body Dressing Assistance Needed: Physical assistance Physical Assistance Level: Total assistance Comment: bed level CARE Score - Lower Body Dressin Footwear Putting On/Taking Off Footwear Assistance Needed: Physical assistance Physical Assistance Level: Total assistance Comment: bed level CARE Score - Putting On/Taking Off Footwear: 1 Toilet Transfer Tub/Shower Transfer Equipment Provided: none Vision: Vision - Complex Assessment Head Position: Upright, centered, looking straight ahead, not leaning any direction Vision Comments: pt has macular degeneration Perception: Perception Inattention/Neglect: Appears intact Initiation: Appears intact Motor Planning: Appears intact Proprioception: Proprioception Proprioception: Partial deficits in the RLE, Partial deficits in the LLE Proprioception Comments: No UE deficits Sensation: Sensation Light Touch: (no deficits in B UEs) Sensation Comments: Pt with no bladder/bowl sensation, pt has Varma. Pt would benefit from toielting schedule/bowel program once medically appropriate. Pt reports that R LE sensation is much wore than L LE. Hand Function: Hand Function Gross Grasp: Functional Coordination: Coordination Coordination: Functional (opposition intact B UEs. min deficits in Finger><nose due to visualimpairment.) Balance: Static sitting balance Static Sitting Balance Static Sitting-Level of Assistance: Not attempted, medical/safety concerns Dynamic sitting balance Dynamic Sitting Balance Dynamic Sitting-Level of Assistance: Not attempted, medical/safety concerns Static standing balance Static Standing Balance Static Standing-Level of Assistance: Not attempted, medical/safety concerns Dynamic standing balance Dynamic Standing Balance Dynamic Standing-Level of Assistance: Not attempted, medical/safety concerns Not assessed as PA requesting bed level therapy due to hypotension. UPPER EXTREMITY ASSESSMENTS RUE Assessment RUE Assessment: Within Functional Limits RUE Assessment Comments: formal MMT not performed due to Spinal precautions LUE Assessment LUE Assessment: Within Functional Limits LUE Assessment Comments: formal MMT not performed due to spinal precautions, STANDARDIZED TESTS Quality Indicators Scoring CAM Scoring Admit: Is there evidence of an acute change in mental status from the patient's baseline?: No (06/26/24829 : Ben Miller, OT) Inattention: Behavior not present (06/26/24829 : Ben Miller OT) Disorganized thinking: Behavior not present (06/26/24829 : Ben Miller OT) Altered level of consciousness: Behavior not present (06/26/24829 : Ben Miller OT) BIMS: 15 (06/26/24829 : Ben Miller OT) Hearing, Speech, and Vision: Hearing, Speech, and Vision Ability to Hear: Adequate Ability to See in Adequate Light: Impaired Expression of Ideas and Wants: Without difficulty Understanding Verbal and Non-Verbal Content: Understands Health Literacy: Health Literacy How often do you need to have someone help you when you read instructions, pamphlets, or other written material from your doctor or pharmacy?: Always OT Assessment: OT Assessment OT Assessment Results: Decreased ADL status, Decreased endurance, Decreased sensation, Visual deficit, Decreased functional mobility, Decreased IADLs, Decreased trunk control for functional activities, Impaired tone Prognosis: Good Evaluation/Treatment Tolerance: Patient tolerated treatment well (limited by hypotension.) Comments: hypotension and low labs barrier, PA providing OK for bed level only. Medical Staff Made Aware: Yes OT Plan: Plan Treatment Interventions: ADL retraining, Functional transfer training, UE strengthening/ROM, Endurance training, Equipment evaluation/education, Compensatory technique education, Continued evaluation OT Plan: Skilled OT OT Frequency : 5-7 days per week OT Duration of Sessions: 90 min per day OT Treatments per day: 1 time per day OT - Evaluation Status: Complete Equipment Recommended: (TBD) Barriers to Discharge: environemntal concerns, functional status, pt lives alone. Pt would benefit from OT at this level of care in order to maximize INDEPENDENCE with self care/mobility, receive education, reduce caregiver burden, and increase INDEPENDENCE with directing care. 3 week long term acute care registered nurse goals Goals: Encounter Problems Encounter Problems (Active) Template: Occupational Therapy Problem: OT Assisted Goals Dates: Start: 06/26/24 Goal: pt will improve dynamic sitting balance to S, for up to 15 minutes, while performing UB ADL. Dates: Start: 06/26/24 Expected End: 07/17/24 Goal: pt will be able to independently direct care, in order to perform toileting safely, while allowing greatest level of INDEPENDENCE (including DME use, txfer techniques, and strategies) Dates: Start: 06/26/24 Expected End: 07/17/24 Goal: Pt will tolerate 3/3 meals OOB Dates: Start: 06/26/24 Expected End: 07/17/24 Goal: Pt will perform LB dressing with partial A, use of LH ADAPTIVE EQUIPTMENT prn Dates: Start: 06/26/24 Expected End: 07/17/24 Goal: pt will perform toileting with overall max A. Dates: Start: 06/26/24 Expected End: 07/17/24 Goal: pt will don shirt with S, sitting unsupported. Dates: Start: 06/26/24 Expected End: 07/17/24 Description: Problem: OT Short Term Goals Dates: Start: 06/26/24 Goal: Pt will perform rolling R><L with use of log roll technique, partial A, for pressure relief. Dates: Start: 06/26/24 Expected End: 07/03/24 Goal: Pt will tolerate sitting OOB for 1/3 meals Dates: Start: 06/26/24 Expected End: 07/03/24 Goal: Pt will sit at EOB for 10 minutes, with no more than partial A for balance to increase Potter with EOB ADL Dates: Start: 06/26/24 Expected End: 07/03/24 Goal: Pt will verbalize 3 pressure relief techniques in order to reduce sophia of pressure injury Dates: Start: 06/26/24 Expected End: 07/03/24 Goal: Pt will perform oral hygiene w/c level, with JACINTO. Dates: Start: 06/26/24 Expected End: 07/03/24 Encounter Problems (Resolved) There are no resolved problems. Education Documentation Self Advocacy/Consumer Competency, taught by Ben Miller OT at 06/26/2024 3:18 PM. Learner: Patient Readiness: Eager Method: Explanation, Demonstration Response: Demonstrated Understanding, Verbalizes Understanding, Needs Reinforcement ADL Training, taught by Ben Miller OT at 06/26/2024 3:18 PM. Learner: Patient Readiness: Eager Method: Explanation, Demonstration Response: Demonstrated Understanding, Verbalizes Understanding, Needs Reinforcement Precautions, taught by Ben Miller OT at 06/26/2024 3:18 PM. Learner: Patient Readiness: Eager Method: Explanation, Demonstration Response: Demonstrated Understanding, Verbalizes Understanding, Needs Reinforcement Body Mechanics, taught by Ben Miller OT at 06/26/2024 3:18 PM. Learner: Patient Readiness: Eager Method: Explanation, Demonstration Response: Demonstrated Understanding, Verbalizes Understanding, Needs Reinforcement Activity/Positioning, taught by Ben Miller OT at 06/26/2024 3:18 PM. Learner: Patient Readiness: Eager Method: Explanation, Demonstration Response: Demonstrated Understanding, Verbalizes Understanding, Needs Reinforcement Skin Care/Pressure Ulcer Prevention, taught by Ben Miller OT at 06/26/2024 3:18 PM. Learner: Patient Readiness: Eager Method: Explanation, Demonstration Response: Demonstrated Understanding, Verbalizes Understanding, Needs Reinforcement Fall Precautions, taught by Ben Miller OT at 06/26/2024 3:18 PM. Learner: Patient Readiness: Eager Method: Explanation, Demonstration Response: Demonstrated Understanding, Verbalizes Understanding, Needs Reinforcement Teach precautions to protect skin integrity, taught by Ben Miller OT at 06/26/2024 3:18 PM. Learner: Patient Readiness: Eager Method: Explanation, Demonstration Response: Demonstrated Understanding, Verbalizes Understanding, Needs Reinforcement Teach perineal skin care, taught by Ben Miller OT at 06/26/2024 3:18 PM. Learner: Patient Readiness: Araceliser Method: Explanation, Demonstration Response: Demonstrated Understanding, Verbalizes Understanding, Needs Reinforcement Teach positioning to prevent injury, taught by Ben Miller OT at 06/26/2024 3:18 PM. Learner: Patient Readiness: Eager Method: Explanation, Demonstration Response: Demonstrated Understanding, Verbalizes Understanding, Needs Reinforcement Education Comments No comments found. Start/Stop Time: OT Time Calculation OT Start Time: 829 OT Stop Time: 1000 OT Time Calculation (min): 90 min Therapy Minutes: Occupational Therapy OT Individual: 90 * Joleen Hollingsworth - 06/26/2024 8:10 AM EST Social Work Note Integrated Hematology Nurse Educator: DX: HX of anxiety and some depressive symptoms: Met with the patient this morning at bedside. Got reacquainted with the patient as she return to the floor yesterday. She reports to be happy to be back at [place] as she did not have a good experience where she was. She reports feeling safer than she has been in awhile. She was having some depressive and anxious symptoms over at the other location but feels better today. She is hopeful that with some work that she can get some movement back in her legs. She feels some pain still but not as bad as it was before. Will keep monitoring and following. Joleen Hollingsworth MS Clinician * Malgorzata Soliman RN - 06/25/2024 7:48 PM EST Order obtained for DNR/DNI documented in this encounter H&P Notes * THEODORA Lawson - 06/26/2024 2:55 PM EST Images from the original note were not included. 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 Surgery done by Dr. Ramirez Hall 06/12/[address] 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 She had a short stay in the ICU there and was then transferred to the floor and then to us for PT/OT and nursingcare. This morning she feels ok, tells me she is tired She felt light headed this morning but that subsided after fluid hydration. She is eating and drinking well. Denies CP, SOB, N/V/D, abd pain, headache, vision changes, dizziness. PAST MEDICAL HISTORY: Past Medical History: Diagnosis Date Adverse effect of anesthesia several hrs after sx pt had Panic attack Anxiety Arthritis Hypertension Irregular heart beat Joint pain Lymphedema Macular degeneration No Known Allergies Past Surgical History: Procedure Laterality Date ABLATION OF DYSRHYTHMIC FOCUS BACK SURGERY N/A s/p L2-3 decompression 09/13/[address] Markham, s/p lumbar discectomy Dr. Bales, L3-4, L4-[address] Yarbrough February 2012, subsequent L4-S1 fusion in [place] with Dr. Cagle. CARPAL TUNNEL RELEASE Right TONSILLECTOMY ADENOIDECTOMY, BILATERAL MYRINGOTOMY AND TUBES TOTAL HIP ARTHROPLASTY Left 2022 TOTAL KNEE ARTHROPLASTY Bilateral Family History Problem Relation Name Age of Onset Other (HTN) Mother Uterine cancer Mother Prostate cancer Father Prostate cancer Brother Social History Socioeconomic History Marital status: Single Spouse name: Not on file Number of children: Not on file Years of education: Not on file Highest education level: Not on file Occupational History Not on file Tobacco Use Smoking status: Former Current packs/day: 0.00 Types: Cigarettes Quit date: 05/2024 Years since quittin.1 Passive exposure: Never Smokeless tobacco: Never Substance and Sexual Activity Alcohol use: Not Currently Comment: occasionally Drug use: Yes Types: Marijuana/Cannabis Comment: occasionally Sexual activity: Not Currently Other Topics Concern Not on file Social History Narrative Not on file REVIEW OF SYSTEMS: Constitutional: No weight loss, fever, chills, weakness or fatigue. HEENT: No visual loss, blurred vision, double vision or yellow sclera. No hearing loss, sneezing, congestion, runny nose or sore throat. Skin: No rash or itching. Cardiovascular: No chest pain, chest pressure or chest discomfort. No palpitations or pedal edema. Respiratory: No shortness of breath, cough or sputum production. Gastrointestinal: No anorexia, nausea, vomiting or diarrhea. No abdominal pain or blood in stool. Genitourinary: No burning micturition. No urinary frequency or incontinence. Neurologic: No headache, dizziness, syncope, ataxia, numbness or tingling in the extremities. No change in bowel or bladder control. Musculoskeletal: No muscle pain, back pain, joint pain or stiffness. Hematologic: No bleeding or bruising. Psychiatric: No depression or anxiety. PHYSICAL EXAMINATION: Vitals: 06/26/24 1136 06/26/24 1145 06/26/24 1300 06/26/24 1425 BP: (!) 70/38 100/71 103/63 BP Location: Left arm;Upper Patient Position: Other (Comment) Pulse: 60 66 Resp: Temp: 36.4 ??C (97.6 ??F) TempSrc: Temporal SpO2: 100% Weight: 87 kg (191 lb 12.8 oz) 87 kg (191 lb 12.8 oz) General: Alert, in no acute cardiopulmonary distress. Mental Status: Oriented to person, place and time. Normal affect. Head: Normocephalic. Eyes: Pupils are equal, round and reactive to light. Extraocular muscles intact. Ear, Nose and Throat: Oropharynx clear, mucous membranes moist. Ears and nose without masses, lesions or deformities. Neck: Supple, Trachea midline. Respiratory: Clear to auscultation and percussion. No wheezing, rales or rhonchi. Cardiovascular: Heart sounds normal. No thrills. Regular rate and rhythm, no murmurs, rubs or gallops. Gastrointestinal: Abdomen soft, non-tender, non-distended. Normal bowel sounds. Genitourinary: No costovertebral angle tenderness. Neurologic: b/l LE weakness. RLE 0/5, LLE able to plantar and dorsiflex. Decreased ssensation to b/l LE R>l and decreased sensation to abd Skin: No rashes or lesions. No petechiae or purpura. No edema. Musculoskeletal: No cyanosis or clubbing. No gross deformities. Normal range of motion. Strength 5/5 throughout all four extremities. HOME MEDICATIONS: Home Medications acetaminophen (TYLENOL) 325 mg tablet Take 2 tablets (650 mg total) by mouth every 6 (six) hours ifneeded for mild pain, moderate pain or headaches for up to 10 days. ALPRAZolam (XANAX) 0.5 mg tablet Take 1 tablet (0.5 mg total) by mouth at bedtime as needed for anxiety. Max Daily Amount: 0.5 mg doxepin (SINEquan) 100 mg capsule Take 1 capsule (100 mg total) by mouth at bedtime. at bedtime DULoxetine (CYMBALTA) [address] capsule Take 1 capsule (60 mg total) by mouth 1 (one) time each day. famotidine (PEPCID) 20 mg tablet Take 1 tablet (20 mg total) by mouth 1 (one) time each day. gabapentin (NEURONTIN) 800 mg tablet Take 1 tablet (800 mg total) by mouth 2 (two) times a day. heparin sodium,porcine (heparin, UFH,) 5,000 unit/mL injection Inject 1 mL (5,000 Units total) under the skin every 8 (eight) hours for 20 days. hydrALAZINE (APRESOLINE) 50 mg tablet Take 1.5 tablets (75 mg total) by mouth 2 (two) times a day. methylPREDNISolone (MEDROL DOSPAK) 4 mg tablet Take 1 tablet (4 mg total) by mouth See administration instructions for 6 days. Use as directed by package instructions metoprolol tartrate (LOPRESSOR) 25 mg tablet Take 1 tablet (25 mg total) by mouth 1 (one) time eachday. oxyCODONE (ROXICODONE) 5 mg immediate release tablet Take 1 tablet (5 mg total) by mouth every 6 (six) hours if needed for moderate pain. Max Daily Amount: 20 mg senna-docusate (PERICOLACE) 8.6-50 mg per tablet Take 1 tablet by mouth at bedtime. tiZANidine (ZANAFLEX) 2 mg tablet Take 1 tablet (2 mg total) by mouth 1 (one) time each day. traZODone (DESYREL) 50 mg tablet Take 1.5 tablets (75 mg total) by mouth at bedtime. triamterene-hydroCHLOROthiazide (DYAZIDE) 37.5-25 mg per capsule Take 1 capsule by mouth 1 (one) time each day. valsartan (DIOVAN) 320 mg tablet Take 1 tablet (320 mg total) by mouth 1 (one) time each day. CURRENT INPATIENT MEDICATIONS: Current Facility-Administered Medications: acetaminophen (TYLENOL) tablet 650 mg, 650 mg, oral, q6h PRN, THEODORA Lawson ALPRAZolam (XANAX) tablet 0.5 mg, 0.5 mg, oral, Nightly PRN, THEODORA Lawson, 0.5 mg at 06/25/24 2151 aluminum-magnesium hydroxide-simethicone (MAALOX) 200-200-20 mg/5 mL suspension 30 mL, 30 mL, oral,q4h PRN, THEODORA Lawson bisacodyL (DULCOLAX) suppository 10 mg, 10 mg, rectal, Daily PRN, THEODORA Lawson docusate sodium (COLACE) capsule 100 mg, 100 mg, oral, BID, THEODORA Lawson, 100 mg at 8 doxepin (SINEquan) capsule 100 mg, 100 mg, oral, Nightly, THEODORA Lawson, 100 mg at 06/25/242118 DULoxetine (CYMBALTA) DR capsule 60 mg, 60 mg, oral, Daily, THEODORA Lawson, 60 mg at 06/26/241156 famotidine (PEPCID) tablet 20 mg, 20 mg, oral, Daily, THEODORA Lawson, 20 mg at 06/26/24926 gabapentin (NEURONTIN) capsule 800 mg, 800 mg, oral, BID, THEODORA Lawson, 800 mg at 06/25/242119 heparin (UFH) injection 5,000 Units, 5,000 Units, subcutaneous, q8h EDEN, THEODORA Lawson, 5,000Units at 06/26/24 05 hydrALAZINE (APRESOLINE) tablet 50 mg, 50 mg, oral, BID, THEODORA Pope magnesium hydroxide (MILK OF MAGNESIA) 400 mg/5 mL suspension 30 mL, 30 mL, oral, Daily PRN, THEODORA Lawson methylPREDNISolone (MEDROL) tablet 4 mg, 4 mg, oral, Daily, THEODORA Lawson, 4 mg at 06/26/24927 metoprolol succinate (TOPROL-XL) 24 Hour tablet 25 mg, 25 mg, oral, Daily, THEODORA Pope oxyCODONE (ROXICODONE) immediate release tablet 5 mg, 5 mg, oral, q6h PRN, THEODORA Lawson, 5 mg at 06/25/242120 senna (SENOKOT) tablet 17.2 mg, 2 tablet, oral, BID, THEODORA Lawson sodium chloride 0.9 % infusion, 75 mL/hr, intravenous, Continuous, THEODORA Pope, Last Rate:75 mL/hr at 06/26/24 1300, 75 mL/hr at 06/26/24 1300 tiZANidine (ZANAFLEX) tablet 2 mg, 2 mg, oral, Daily, THEODORA Lawson traZODone (DESYREL) tablet 75 mg, 75 mg, oral, Nightly, THEODORA Lawson, 75 mg at 06/25/24 2120 valsartan (DIOVAN) tablet 320 mg, 320 mg, oral, Daily, THEODORA Lawson LABS: Lab Results Component Value Date WBC 12.7 (H) 06/26/2024 RBC 3.90 06/26/2024 HGB 11.5 06/26/2024 HCT 33.5 (L) 06/26/2024 MCV 86.8 06/26/2024 MCHC 34.3 06/26/2024 RDW 15.0 06/26/2024 PLT 210 06/26/2024 MPV 9.6 06/26/2024 NRBC 0.0 06/26/2024 DIFF Lab Results Component Value Date LYMPHOPCT 11.0 06/26/2024 NEUTROABS 8.99 (H) 06/26/2024 LYMPHSABS 1.40 06/26/2024 MONOABS 1.86 (H) 06/26/2024 EOSABS 0.10 06/26/2024 BASOSABS 0.03 06/26/2024 IMMGRANABS 0.35 (H) 06/26/2024 RETIC No results found for: RETIC , RETICCTPCT Lab Results Component Value Date NA 124 (L) 06/26/2024 K 4.5 06/26/2024 CL 88 (L) 06/26/2024 CO2 30 06/26/2024 GLUCOSE 89 06/26/2024 BUN 27 (H) 06/26/2024 CREATININE 0.72 06/26/2024 CALCIUM 8.4 (L) 06/26/2024 PROT 4.8 (L) 06/26/2024 ALBUMIN 2.4 (L) 06/26/2024 BILITOT 0.7 06/26/2024 AST 9 (L) 06/26/2024 ALT 21 06/26/2024 PHOS 2.7 06/15/2024 MG 1.7 06/15/2024 ALKPHOS 79 06/26/2024 EGFR 92 06/26/2024 IMPRESSION & PLAN: #Impaired mobility and self care - Secondary to thoracic myelopathy s/p op - Continue with PT,OT and nursing care #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 Rafael Dc - Medrol 4 mg daily until 07/01/2024 -Tizanidine 2 mg daily 06/26 held due to hypotension #Neurogenic bladder and bowel - In the setting of spinal injury - Varma catheter in place #Atrial Flutter - S/p ablation orders and allergies #Hypertension - Hydralazine 75 mg BID 06/26 held due to hypotension - Meoprolol succinate 25 mg daily 06/26 held due to hypotension - Dyazide 37.5-25 mg daily 06/26 held due to hypotension #Hyperlipidemia - Valsartan 320 mg daily 06/26 held due to hypotension #Anxiety - Doxepin 100 mg nightly - Duloxetine 60 mg daily - Trazodone 75 mg nightly #Hypotension - Likely in the setting of metabolic alkalosis due to GI losses / diarrhea. - 250 mL sodium chloride 0.9% bolus complete 06/26 currently recei treatmentving 500 mL sodium chloride at 75 ml/hr IV. - Monitor and hold #Hyponatremia - 124 today 06/26, gentle hydration ordered by medicine. Will follow labs repeat in AM #Diarrhea -Resolved per patient. Per patient had three days of diarrhea, last day yesterday. Will monitor #GERD - Famotidine 20 mg daily # HX of DVT - Heparin 5000 units SQ TID # Pain management - Gabapentin 800 mg BID - Acetaminophen 650 mg Q6H PRN #Bowel management -Monitor Oxygen DVTP: Heparin 5000 units SQ TID ____ Yuly Montoya is being admitted to the inpatient rehab unit in order to participate in an acute rehab program which evokes a multidisciplinary team approach in order to improve their functional mobility and activities of daily living. Physical therapy will be involved in order to provide gait andbalance training, improve strength and range of motion and utilize modalities as deemed necessary. Occupational Therapy will assess and educate with activities of daily living which include bathing dressing toileting and basic household activities. Speech therapy will evaluate speech, cognition, and swallowing and continue to follow as needed for any deficits in these areas. Patient will also be followed by internal medicine 24-hour nursing in order to monitor medical status and provide continuous education regarding medical conditions. Case management will start discharge planning and arrange for team conferences. Rehab goals: Increased functional ability, increased muscle strength and conditioning, progress to self-care andADLs. Educate the patient and the family on disease process and discharge back home into the community. Patient's progress will be discussed in weekly multidisciplinary team conferences along with any barriers which may inhibit patient from returning home safely. Rehab potential/prognosis: Patient has good rehab potential and is well motivated. Patient has family support. Disposition: Weekly multidisciplinary team conferences will be held in order to discuss the patient's progress, barriers, and goals regarding their discharge plan. Goals for the patient include returning home to their prior level of functioning with home services for continued rehab and recovery. Estimated length of stay: 2 weeks ____ Associated attestation - Darline Lara DO - 06/26/2024 8:27 PM EST Patient seen and examined by this provider at 7:50AM this morning. No acute events overnight. Agreeable to therapy program. Reports that pain and spasms are controlled on current medications. Will continue Varma catheter for now (patient reports failed voiding trial at [facility]). Patient reports receiving multiple oral medications for bowel management with subsequent diarrhea. Will hold medications for now and start daily bowel regimen with suppository once appropriate. Agree with H&P as documented by PA. documented in this encounter Consult Notes * Shabana Interiano, RD - 07/03/2024 1:36 PM EST 07/03/2024 @ 1:37 PM EST Nutrition Follow Up Note Reason for RD Intervention: Assessment Type: Follow-up Reason for Assessment: Other (Comment) (Oral nutrition supplements) Anthropometrics: Weight: 87.5 kg (192 lb 12.8 oz) Weight Method: Actual BMI (Calculated): 34.6 BMI Class: Obesity Class I IBW (lbs): 115 Current Diet and Supplements: Dietary Orders (From admission, onward) Start Ordered 06/25/241752 Adult diet [facility]; General; Regular Diet effective now Question Answer Comment Location [facility] Diet Type (req) General General Diet Regular 06/25/241754 History of presenting illness: Patient is a 68 y.o. female with a history of Past Medical History: Diagnosis Date Adverse effect of anesthesia several hrs after sx pt had Panic attack Anxiety Arthritis Hypertension Irregular heart beat Joint pain Lymphedema Macular degeneration Past Surgical History: Procedure Laterality Date ABLATION OF DYSRHYTHMIC FOCUS BACK SURGERY N/A s/p L2-3 decompression 09/13/[address] Markham, s/p lumbar discectomy Dr. Bales, L3-4, L4-[address] Yarbrough February 2012, subsequent L4-S1 fusion in [place] with Dr. Cagle. CARPAL TUNNEL RELEASE Right TONSILLECTOMY ADENOIDECTOMY, BILATERAL MYRINGOTOMY AND TUBES TOTAL HIP ARTHROPLASTY Left 2022 TOTAL KNEE ARTHROPLASTY Bilateral admitted 06/25/2024 with Lower extremity weakness. Food/Nutrition History: Previous Diet / Nutrition Education / Counseling: Pt not in room during time of attempted meeting, unable to interview. Pt had two nutrition assessments completed in June, however RD unable to meet with the patient. Based on assessments, pt with good PO intake (75-100% of meals) Appetite TRANSPLANT IMMUNOLOGIST: Other (Comment) (Unable to assess) Intake TRANSPLANT IMMUNOLOGIST: Other (Comment) (Unable to assess) Weight History: Wt Readings from Last 10 Encounters: 06/30/24 87.5 kg (192 lb 12.8 oz) 06/12/24 82 kg (180 lb 12.4 oz) 06/09/24 81.8 kg (180 lb 6.4 oz) 06/01/24 82.6 kg (182 lb) 05/26/24 82.6 kg (182 lb 1.6 oz) 05/21/24 90.3 kg (199 lb) Subjective Assessment: Pt not available at time of visit. Per RN pt eating well, recorded intakes 75- 100%. Na 131 today, weight up to 192 lbs. Following I/O. Nutrition-Related Lab Values: Results from last 7 days Lab Units 07/03/24 0613 06/28/24 0555 06/27/24 0623 SODIUM mmol/L 131* < > 129* POTASSIUM mmol/L 4.2 < > 4.9 MAGNESIUM mg/dL -- -- 1.9 CHLORIDE mmol/L 95* < > 93* CO2 mmol/L 32 < > 31 BUN mg/dL 13 < > 31* CREATININE mg/dL 0.53 < > 0.77 EGFR mL/min/1.73m2 102 < > 85 CALCIUM mg/dL 8.8 < > 8.5 BILIRUBIN TOTAL mg/dL -- -- 0.7 ALK PHOS unit/L -- -- 82 ALT unit/L -- -- 22 AST unit/L -- -- 19 GLUCOSE mg/dL 95 < > 88 WBC AUTO K/mcL 9.1 < > 9.8 < > = values in this interval not displayed. Medications: acetaminophen, 975 mg, oral, q8h EDEN bisacodyL, 10 mg, rectal, q24h cefuroxime, 250 mg, oral, BID AC clotrimazole, , Topical, BID doxepin, 100 mg, oral, Nightly DULoxetine, 60 mg, oral, Daily famotidine, 20 mg, oral, Daily ferrous sulfate, 325 mg, oral, BID gabapentin, 400 mg, oral, q8h EDEN heparin (UFH), 5,000 Units, subcutaneous, q8h EDEN metoprolol succinate, 25 mg, oral, Daily traZODone, 75 mg, oral, Nightly CONTINUOUS: PRN medications: ALPRAZolam, aluminum-magnesium hydroxide-simethicone, bisacodyL, docusate sodium, magnesium hydroxide, oxyCODONE, artificial tears Food/Nutrition-Current Status: Intake Type: P.O. Appetite: Good Intake Amount (%): 75-100% Intake Assessment: Adequate Main IVF: NS Main IVF Rate (mL/hr): 75 Nutrition Focused Physical Findings: Overall Appearance: Pt not available at time of visit Skin: Upper Back incision Nutrition Diagnosis: Code Type: None Identified Status: New Diagnosis: No Acute Nutrition Dx Nutrition Interventions: Other (Comment) (Follow PO intake, consider nutrition suppleemnts if intakes <65%) Follow Na, fluid intake Goals: Patient will consume greater than or equal to 75% meals., Electrolytes within normal range., Maintain weight., and Maintain skin integrity. Coordination of Patient Care: Verbal discussion with RN. Monitoring/Evaluation: Food Intake, Weight, Fluid/Beverage Intake Follow Up: Nutrition Priority Level: Moderate Follow up Date: Please consult nutrition if needed sooner. Nutritional Discharge Recommendations: RD remains available and will continue to follow. Signature: Shabana Interiano RD * Aron Shearer DPM - 06/29/2024 9:26 AM EST Consults History Of Present Illness (includes Chief Complaint): Yuly Montoya is a 68 y.o. female presenting with past medical history significant for hypertension, atrial flutter, thoracic nerve compression from an extradural mass, anxiety, neurogenic bladder and bowel, hyperlipidemia, GERD, and DVT who presented from initial admission to [facility] on [place]/10/2024 where she underwent thoracic laminectomies with subsequent weakness to lower extremities bilaterally. She had continued numbness as well. 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 She did have a short stay in the ICU and was then transferred to the floor once stable. Due to her impaired f unctional mobility and ADLs it was then recommended she undergo an acute in- house rehab program. She was therefore accepted and transferred to the [facility] rehab on 06/25/2024 to begin her acute in-house rehab course. Podiatry services were requested for Dr. Darline Lara and all other pertinent clinical and lab data were reviewed and noted. Patient has some painfully thickened gryphotic toenails, as well as, swelling to the right greater than left lower extremities. Close shoe gear aggravates the above conditions. Denies any previous podiatry services. Past Medical History: She has a past medical history of Adverse effect of anesthesia, Anxiety, Arthritis, Hypertension, Irregular heart beat, Joint pain, Lymphedema, and Macular degeneration. She has no past medical history of Blindness. Surgical History: She has a past surgical history that includes Total knee arthroplasty (Bilateral); Total hip arthroplasty (Left, 2022); Back surgery (N/A); Carpal tunnel release (Right); Ablation of dysrhythmic focus; and Tonsillectomy,adenoidectomy,bilateral myngotomy and tubes. Family History: family history includes HTN in her mother; Prostate cancer in her brother and father; Uterine cancer in her mother. Social History: She reports that she quit smoking about 5 weeks ago. Her smoking use included cigarettes. She has never been exposed to tobacco smoke. She has never used smokeless tobacco. She reports that she does not currently use alcohol. She reports current drug use. Drug: Marijuana/Cannabis. Allergies: Patient has no known allergies. Home Medications: Medications Prior to Admission Medication Sig Dispense Refill Last Dose acetaminophen (TYLENOL) 325 mg tablet Take 2 tablets (650 mg total) by mouth every 6 (six) hours ifneeded for mild pain, moderate pain or headaches for up to 10 days. ALPRAZolam (XANAX) 0.5 mg tablet Take 1 tablet (0.5 mg total) by mouth at bedtime as needed for anxiety. Max Daily Amount: 0.5 mg doxepin (SINEquan) 100 mg capsule Take 1 capsule (100 mg total) by mouth at bedtime. at bedtime DULoxetine (CYMBALTA) [address] capsule Take 1 capsule (60 mg total) by mouth 1 (one) time each day. famotidine (PEPCID) 20 mg tablet Take 1 tablet (20 mg total) by mouth 1 (one) time each day. 30 each 11 gabapentin (NEURONTIN) 800 mg tablet Take 1 tablet (800 mg total) by mouth 2 (two) times a day. heparin sodium,porcine (heparin, UFH,) 5,000 unit/mL injection Inject 1 mL (5,000 Units total) under the skin every 8 (eight) hours for 20 days. (Patient taking differently: Inject 1 mL (5,000 Units total) under the skin every 8 (eight) hours. Order reads at 6AM; 2PM; 10PM) hydrALAZINE (APRESOLINE) 50 mg tablet Take 1.5 tablets (75 mg total) by mouth 2 (two) times a day. methylPREDNISolone (MEDROL DOSPAK) 4 mg tablet Take 1 tablet (4 mg total) by mouth See administration instructions for 6 days. Use as directed by package instructions metoprolol tartrate (LOPRESSOR) 25 mg tablet Take 1 tablet (25 mg total) by mouth 1 (one) time eachday. oxyCODONE (ROXICODONE) 5 mg immediate release tablet Take 1 tablet (5 mg total) by mouth every 6 (six) hours if needed for moderate pain. Max Daily Amount: 20 mg senna-docusate (PERICOLACE) 8.6-50 mg per tablet Take 1 tablet by mouth at bedtime. 30 each 11 tiZANidine (ZANAFLEX) 2 mg tablet Take 1 tablet (2 mg total) by mouth 1 (one) time each day. traZODone (DESYREL) 50 mg tablet Take 1.5 tablets (75 mg total) by mouth at bedtime. triamterene-hydroCHLOROthiazide (DYAZIDE) 37.5-25 mg per capsule Take 1 capsule by mouth 1 (one) time each day. valsartan (DIOVAN) 320 mg tablet Take 1 tablet (320 mg total) by mouth 1 (one) time each day. Current Facility-Administered Medications: acetaminophen (TYLENOL) tablet 650 mg, 650 mg, oral, q6h PRN, THEODORA Lawson, 650 mg at 06/26/24 1508 acetaminophen (TYLENOL) tablet 975 mg, 975 mg, oral, q8h [facility], Darline Lara DO, 975 mg at 06/29/24 0530 ALPRAZolam (XANAX) tablet 0.5 mg, 0.5 mg, oral, Nightly PRN, THEODORA Lawson, 0.5 mg at 06/28/24 2113 aluminum-magnesium hydroxide-simethicone (MAALOX) 200-200-20 mg/5 mL suspension 30 mL, 30 mL, oral,q4h PRN, THEODORA Lawson bisacodyL (DULCOLAX) suppository 10 mg, 10 mg, rectal, Daily PRN, THEODORA Lawson bisacodyL (DULCOLAX) suppository 10 mg, 10 mg, rectal, q24h, Darline Lara DO, 10 mg at 06/28/24 194 docusate sodium (COLACE) capsule 100 mg, 100 mg, oral, BID PRN, Darline Lara DO doxepin (SINEquan) capsule 100 mg, 100 mg, oral, Nightly, THEODORA Lawson, 100 mg at 06/28/242118 DULoxetine (CYMBALTA) DR capsule 60 mg, 60 mg, oral, Daily, THEODORA Lawson, 60 mg at 06/29/24 0858 famotidine (PEPCID) tablet 20 mg, 20 mg, oral, Daily, THEODORA Lawson, 20 mg at 06/29/24 0857 gabapentin (NEURONTIN) capsule 400 mg, 400 mg, oral, q8h EDEN, Darline Lara DO, 400 mg at 06/29/24 0529 heparin (UFH) injection 5,000 Units, 5,000 Units, subcutaneous, q8h EDEN, THEODORA Lawson, 5,000Units at 06/29/24 0530 magnesium hydroxide (MILK OF MAGNESIA) 400 mg/5 mL suspension 30 mL, 30 mL, oral, Daily PRN, THEODORA Lawson methylPREDNISolone (MEDROL) tablet 4 mg, 4 mg, oral, Daily, THEODORA Lawson, 4 mg at 06/29/24 0857 metoprolol succinate (TOPROL-XL) 24 Hour tablet 25 mg, 25 mg, oral, Daily, THEODORA Pope, 25mg at 06/29/24 0857 oxyCODONE (ROXICODONE) immediate release tablet 5 mg, 5 mg, oral, q6h PRN, Darline Lara DO,5 mg at 06/28/24 212 sodium chloride 0.9 % flush 3 mL, 3 mL, intravenous, q8h EDEN, Darline Lara, sodium chloride 0.9 % infusion, 75 mL/hr, intravenous, Continuous, THEODORA Pope, Last Rate:75 mL/hr at 06/27/241652, 75 mL/hr at 06/27/24 165 traZODone (DESYREL) tablet 75 mg, 75 mg, oral, Nightly, THEODORA Lawson, 75 mg at 06/28/242120 Review of Systems: The patient denies any chest pain or shortness of breath. Denies any fatigue or generalized weakness. Denies any GI complaints: Denies any nausea, vomiting, diarrhea, or constipation. Denies any melena, or hematemesis. complaints: Denies hematuria or dysuria, but does have neurogenic bowel and bladder. Varma catheter is in place at this time. The patient is afebrile with vital signs stable. Denies any throat or hearing problems, but does have macular degeneration. Denies any headaches, dizziness or seizures. Denies any radiating pain to the feet or lower extremities, but does have some numbness in the feet. Does have weakness in the right greater than left lower extremities. Denies any rash or wounds to the feet or lower legs, but does have chronic lymphedema. Immunologic history: Denies any autoimmune diseases. Hematologic history: denies any bleeding problems or anemias. Psychiatric history denies any depression or insomnia, but does have history of anxiety. The patient is an otherwise well- developed and well-nourished female currently resting comfortably and in no acute distress. The remainder of the 14 point review of systems were otherwise reviewed and are negative or as noted from last nurses note. Last Recorded Vitals: Blood pressure 119/52, pulse 80, temperature 36.5 ??C (97.7 ??F), temperature source Oral, resp. rate 18, weight 87 kg (191 lb 12.8 oz), SpO2 100%. Physical Exam: Objective/Lower Extremity: P. E. Vascular Exam: DP pulses are palpable at 1/4 bilaterally. PT pulses are nonpalpable bilaterally. Capillary refillsless than 3 seconds to all digits bilaterally. There is no clubbing or cyanosis to the digits bilaterally. There is mild pedal and lower leg edema noted on the right greater than left lower extremities. There is some mild dependency rubor but no elevational pallor to the feet or lower legs bilaterally. There is a negative Homans' sign and negative calf tenderness to palpation bilaterally. Dermatologic Exam: There are no ulcerations or signs for infection to bilateral feet or lower legs. The skin is warm, dry and intact both feet. Toe webspaces are clear bilaterally. No hyperkeratotic lesions to the feetbilaterally. The toenails are markedly overgrown, hypertrophic, brittle, friable, elongated and painful gryphotic x 10 toes. No paronychia bilaterally. Neurologic Exam: The patient has some diminished epicritic sensorium to the right lower extremity noted for diminished pinprick, light touch, proprioception and vibratory sense. Epicritic sensorium was intact for pinprick, light touch and vibration and proprioception on the left foot. Plantar response is flexor on the left with no response on the right. Deep tendon reflexes were not elicited on the right lower extremity for patellar or Achilles, but was +1 on the left lower extremity. Muscle strength is 0/5 to the right foot and leg muscle groups and +3/5 to the left foot and leg muscle groups including; inverters, everters, plantar flexors and dorsiflexors. No ankle clonus was elicited bilaterally. Orthopedic Exam: The patient does have no active flexion or extension to the right foot or ankle with dropfoot noted. The left foot has trace dorsiflexion and plantarflexion but she is able to wiggle her toes and flexion and extension. Passively I am able to obtain 90 degrees dorsiflexion on both feet with assistance. Stance and gait is deferred at present due to restricted ambulation. Relevant Results: All pertinent clinical and lab data were reviewed and noted. Podiatry Assessment: 1. Onychogryphosis the feet x 10 toes. 2. Peripheral edema to the right greater than left lower extremities. 3. Pain in toes bilaterally. 4. Difficulty with walking. Assessment/Plan Principal Problem: Lower extremity weakness -Other diagnoses include; impaired functional mobility and ADLs, thoracic spinal stenosis with spinal mass status post 2 thoracic decompression surgeries, status post T5-T8 fusion and T5-T7 decompression with T6-T7 fasciectomy and removal of mass, also status post bone and soft tissue of the thoracic spine of T5-8 excision with decompression, bilateral lower extremity weakness right greater than left, neurogenic bowel and bladder with Varma cath in place at present, history of cervical spondylolisthesis with central canal stenosis, recent leukocytosis mild at 12,000 likely reactive to steroids now afebrile, atrial flutter status post ablation, recent history of bradycardia, hypertension, and anxiety. Plan: 1. Under sterile technique and using nail cutters I debrided, reduced and rasped smooth the painfully thickened gryphotic toenails down to viable nail plates x 10 toes and painted them with Betadine. 2. Recommend continued elevation while in bed with use of pneumatic boots, as well as, waffle bootsfor her pedal and lower leg edema. 3. Discussed proper accommodative shoe gear such as an in-depth shoe with increased width and depthin the toebox and a tie upper to accommodate her feet. 4. Reviewed proper foot hygiene and recommend follow-up podiatric care every 8 to 10 weeks due to above diagnoses. Thank you for this consultation. Please call if I may be of any further service. Aron Shearer DPM CC: Darline Lara DO * Nannette Boo RD - 06/28/2024 3:15 PM ESTAssociated Order(s): IP CONSULT TO NUTRITION SERVICES 06/28/2024 @ 3:15 PM EST Nutrition Consult Note/Nutrition Assessment Reason for RD Intervention: Assessment Type: Provider Consult Reason for Assessment: (Oral nutrition supplements) Anthropometrics: Weight: 87 kg (191 lb 12.8 oz) Weight Method: Actual BMI (Calculated): 34.4 BMI Class: Obesity Class I IBW (lbs): 115 Current Diet and Supplements: Dietary Orders (From admission, onward) Start Ordered 06/25/24 175 Adult diet [facility]; General; Regular Diet effective now Question Answer Comment Location [facility] Diet Type (req) General General Diet Regular 06/25/241754 History of presenting illness: Patient is a 68 y.o. female with a history of Past Medical History: Diagnosis Date Adverse effect of anesthesia several hrs after sx pt had Panic attack Anxiety Arthritis Hypertension Irregular heart beat Joint pain Lymphedema Macular degeneration Past Surgical History: Procedure Laterality Date ABLATION OF DYSRHYTHMIC FOCUS BACK SURGERY N/A s/p L2-3 decompression 09/13/[address] Markham, s/p lumbar discectomy Dr. Bales, L3-4, L4-[address] Yarbrough February 2012, subsequent L4-S1 fusion in [place] with Dr. Cagle. CARPAL TUNNEL RELEASE Right TONSILLECTOMY ADENOIDECTOMY, BILATERAL MYRINGOTOMY AND TUBES TOTAL HIP ARTHROPLASTY Left 2022 TOTAL KNEE ARTHROPLASTY Bilateral admitted 06/25/2024 with Lower extremity weakness. Food/Nutrition History: Previous Diet / Nutrition Education / Counseling: Pt not in room during time of attempted meeting, unable to interview. Pt had two nutrition assessments completed in June, however RD unable to meet with the patient. Based on assessments, pt with good PO intake (75-100% of meals) Appetite TRANSPLANT IMMUNOLOGIST: Other (Comment) (Unable to assess) Intake TRANSPLANT IMMUNOLOGIST: Other (Comment) (Unable to assess) Weight History: Wt Readings from Last 10 Encounters: 06/26/24 87 kg (191 lb 12.8 oz) 06/12/24 82 kg (180 lb 12.4 oz) 06/09/24 81.8 kg (180 lb 6.4 oz) 06/01/24 82.6 kg (182 lb) 05/26/24 82.6 kg (182 lb 1.6 oz) 05/21/24 90.3 kg (199 lb) Weight history indicates weight gain of 11 lb over past 2 weeks. Subjective Assessment: Consulted to see pt for oral nutrition supplements. 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 Status post T5-T8 fusion and T5-7 decompression T6-7 facetectomy and removal of mass. PO intake since admission has been good- consuming 75-100% of most meals. Noted upper medial back incision (no drainage). Last BM 06/27. Nutrition-Related Lab Values: Results from last 7 days Lab Units 06/28/24 0555 06/27/24 0623 SODIUM mmol/L 131* 129* POTASSIUM mmol/L 4.2 4.9 MAGNESIUM mg/dL -- 1.9 CHLORIDE mmol/L 98 93* CO2 mmol/L 31 31 BUN mg/dL 18 31* CREATININE mg/dL 0.46* 0.77 EGFR mL/min/1.73m2 105 85 CALCIUM mg/dL 8.5 8.5 BILIRUBIN TOTAL mg/dL -- 0.7 ALK PHOS unit/L -- 82 ALT unit/L -- 22 AST unit/L -- 19 GLUCOSE mg/dL 98 88 WBC AUTO K/mcL -- 9.8 No results found for: LIPASE Medications: acetaminophen, 975 mg, oral, q8h EDEN bisacodyL, 10 mg, rectal, q24h docusate sodium, 100 mg, oral, BID doxepin, 100 mg, oral, Nightly DULoxetine, 60 mg, oral, Daily famotidine, 20 mg, oral, Daily gabapentin, 400 mg, oral, q8h EDEN heparin (UFH), 5,000 Units, subcutaneous, q8h EDEN methylPREDNISolone, 4 mg, oral, Daily metoprolol succinate, 25 mg, oral, Daily sodium chloride, 3 mL, intravenous, TID traZODone, 75 mg, oral, Nightly CONTINUOUS: sodium chloride, 75 mL/hr, Last Rate: 75 mL/hr (06/27/24 1653) PRN medications: acetaminophen, ALPRAZolam, aluminum-magnesium hydroxide- simethicone, bisacodyL, magnesium hydroxide, oxyCODONE Food/Nutrition-Current Status: Intake Type: P.O. Appetite: Good Intake Amount (%): 75-100% Intake Assessment: Adequate Main IVF: NS Main IVF Rate (mL/hr): 75 Nutrition Focused Physical Findings: Overall Appearance: Unable to visually assess pt- not in room at time of visit. Skin: upper back incision Nutrition Diagnosis: Code Type: None Identified Status: New Diagnosis: No Acute Nutrition Dx Nutrition Interventions: Diet Order, Meals/Snacks - Continue diet as ordered. - Monitor adequacy of PO intake; consider offering snacks/supplements if pt consuming <65% of meals on follow up. - Follow weights, labs, I/O. Goals: Patient will tolerate diet progression. , Patient will consume greater than or equal to 75% meals.,Electrolytes within normal range., Maintain weight., Stooling appropriately., and Maintain skin integrity. Monitoring/Evaluation: Fluid/Beverage Intake, Food Intake, Weight, Gastrointestinal Profile, Diet Order Follow Up: Nutrition Priority Level: Moderate Please consult nutrition if needed sooner. RD remains available and will continue to follow. Signature: Nannette Boo RD * THEODORA Pope - 06/26/2024 11:05 AM EST Images from the original note were not included. [place] CONSULT NOTE Please contact author [THEODORA Pope] via [email or web address]. Patient: Yuly Montoya Admission Date/Time: 06/25/2024 4:55 PM : 1955 [68 y.o.] Patient's PCP: Solis Roman MD Attending Provider: Darline Lara DO REASON FOR CONSULT Medical Co management HISTORY OF PRESENT ILLNESS This is a 68-year-old female with a past medical history of thoracic nerve compression from extradural mass, who previously underwent to thoracic laminectomies with subsequent lower extremity weakness and numbness. She was transferred from [facility] to [facility] [place] further management given her weakness to her lower extremities. She was admitted to neurosurgery Dr. Hall service. S/p T5-T8 fusion and T5-7 decompression T6-7 facetectomy and removal of mass. During her hospital course she was also on IV steroids. Currently on Medrol Dosepak. She had no significant change in hermotor exam to her lower extremities. Patient received perioperative antibiotics for infection control and was placed on pneumatic pumps for DVT prophylaxis. Chemical anticoagulation was started postoperatively due to mobility. She continues to have urinary retention and Varma catheter was continued. It appears that she had a 5-day course of prophylactic Macrobid. She was found to have pyuria on her urinalysis on 06/11. Review of Systems Constitutional :no fever chills , appetite fair, sleeping well BP has been low reports feeling woozy HEENT: denies headaches, visual changes, no dysphagia Respiratory: denies shortness of breath, coughing or wheezing Cardiac: denies chest pain, palpitations, orthopnea PND : No abd pain, no N/V. Moving bowels-recent diarrhea Genitourinary: Urine retention currently with Varma Hematologic: Denies any easy bruising or bleeding tendency Musculoskeletal: No joint pain ,back pain NEURO: Weakness of the lower extremities, decree sensation to the abdomen and perianal area and right leg (no new findings.) SKIN: no lesions or rashes Psych: denies any recent mood changes : anxiety or depression MEDICAL HISTORY Past Medical History Past Medical History: Diagnosis Date Adverse effect of anesthesia several hrs after sx pt had Panic attack Anxiety Arthritis Hypertension Irregular heart beat Joint pain Lymphedema Macular degeneration Past Surgical History Past Surgical History: Procedure Laterality Date ABLATION OF DYSRHYTHMIC FOCUS BACK SURGERY N/A s/p L2-3 decompression 09/13/[address] Markham, s/p lumbar discectomy Dr. Bales, L3-4, L4-[address] Yarbrough February 2012, subsequent L4-S1 fusion in [place] with Dr. Cagle. CARPAL TUNNEL RELEASE Right TONSILLECTOMY ADENOIDECTOMY, BILATERAL MYRINGOTOMY AND TUBES TOTAL HIP ARTHROPLASTY Left 2022 TOTAL KNEE ARTHROPLASTY Bilateral Social History reports that she quit smoking about 5 weeks ago. Her smoking use included cigarettes. She has neverbeen exposed to tobacco smoke. She has never used smokeless tobacco. She reports that she does not currently use alcohol. She reports current drug use. Drug: Marijuana/Cannabis. Family History family history includes HTN in her mother; Prostate cancer in her brother and father; Uterine cancer in her mother. Allergies has No Known Allergies. Home Medications Current Facility-Administered Medications on File Prior to Encounter Medication Dose Route Frequency Provider Last Rate Last Admin [DISCONTINUED] acetaminophen (TYLENOL) tablet 650 mg 650 mg oral q6h PRN THEODORA Pettit 650 mg at 06/24/24 0836 [DISCONTINUED] ALPRAZolam (XANAX) tablet 0.5 mg 0.5 mg oral Nightly PRN Janay Enriquez MD 0.5 mg at 06/23/24 2249 [DISCONTINUED] bisacodyL (DULCOLAX) suppository 10 mg 10 mg rectal Daily PRN Ekta Nieto MD 10 mg at 06/15/24 1512 [DISCONTINUED] cevimeline (EVOXAC) capsule 30 mg 30 mg oral TID Laisha Robert MD 30 mg at 06/25/24 0926 [DISCONTINUED] dexAMETHasone (DECADRON) injection 4 mg 4 mg intravenous q8h THEODORA Perales 4 mg at 06/25/24 1438 [DISCONTINUED] dextrose (D50W) 50% injection 12.5 g 12.5 g intravenous q15 min PRN THEODORA Anaya [DISCONTINUED] dextrose (D50W) 50% injection 25 g 25 g intravenous q15 min PRN THEODORA Anaya [DISCONTINUED] dextrose 15 gram/60 mL oral solution 15 g 15 g oral q15 min PRN THEODORA Anaya [DISCONTINUED] dextrose 15 gram/60 mL oral solution 30 g 30 g oral q15 min PRN THEODORA Anaya [DISCONTINUED] docusate sodium (COLACE) capsule 100 mg 100 mg oral BID THEODORA Jimenez 100 mg at 06/25/24 0920 [DISCONTINUED] doxepin (SINEquan) capsule 100 mg 100 mg oral Nightly THEODORA Massey 100 mg at 06/24/24 2300 [DISCONTINUED] DULoxetine (CYMBALTA) DR capsule 60 mg 60 mg oral Daily Laisha Robert MD 60 mg at06/25/24 0918 [DISCONTINUED] famotidine (PEPCID) tablet 20 mg 20 mg oral Daily Laisha Robert MD 20 mg at 06/25/24 0920 [DISCONTINUED] gabapentin (NEURONTIN) capsule 500 mg 500 mg oral q8h Edgar Valencia DO 500mg at 06/25/24 0920 [DISCONTINUED] Glucagon HCl (rDNA) injection 1 mg 1 mg intramuscular Once PRN THEODORA Anaya [DISCONTINUED] heparin (UFH) injection 5,000 Units 5,000 Units subcutaneous q8h THEODORA Perales 5,000 Units at 06/25/24 0921 [DISCONTINUED] hydrALAZINE (APRESOLINE) injection 10 mg 10 mg intravenous q4h PRN THEODORA Ortiz10 mg at 06/17/24 0624 [DISCONTINUED] hydrALAZINE (APRESOLINE) tablet 75 mg 75 mg oral BID THEODORA Pettit 75 mg at 06/25/24 0919 [DISCONTINUED] insulin lispro injection 1-6 Units 1-6 Units subcutaneous TID THEODORA Voss [DISCONTINUED] oxyCODONE (ROXICODONE) immediate release tablet 10 mg 10 mg oral q6h PRN THEODORA Jimenez 10 mg at 06/25/24 1452 [DISCONTINUED] oxyCODONE (ROXICODONE) immediate release tablet 5 mg 5 mg oral q6h PRN THEODORA Jimenez 5 mg at 06/24/24 1413 [DISCONTINUED] polyethylene glycol (MIRALAX) packet 17 g 17 g oral Daily Laisha Robert MD 17 g at 06/14/24 0839 [DISCONTINUED] senna (SENOKOT) tablet 17.2 mg 2 tablet oral BID THEODORA Jimenez 17.2 mg at 06/25/24 0919 [DISCONTINUED] sodium chloride 0.9 % flush 10 mL 10 mL intravenous BID Bridgett Renner MD 10 mL at 06/25/24 0925 [DISCONTINUED] sodium chloride 0.9 % flush 10 mL 10 mL intravenous PRN Bridgett Renner MD [DISCONTINUED] tiZANidine (ZANAFLEX) tablet 2 mg 2 mg oral Daily Laisha Robert MD 2 mg at 06/25/24 0900 [DISCONTINUED] traZODone (DESYREL) tablet 100 mg 100 mg oral Nightly THEODORA Massey 100 mg at 06/24/24 2301 [DISCONTINUED] triamterene-hydroCHLOROthiazide (DYAZIDE) 37.5-25 mg per capsule 1 capsule 1 capsuleoral Daily THEODORA Ortiz 1 capsule at 06/25/24 0920 [DISCONTINUED] valsartan (DIOVAN) tablet 320 mg 320 mg oral Daily THEODORA Fung 320 mg at 06/25/24 0918 Current Outpatient Medications on File Prior to Encounter Medication Sig Dispense Refill acetaminophen (TYLENOL) 325 mg tablet Take 2 tablets (650 mg total) by mouth every 6 (six) hours ifneeded for mild pain, moderate pain or headaches for up to 10 days. ALPRAZolam (XANAX) 0.5 mg tablet Take 1 tablet (0.5 mg total) by mouth at bedtime as needed for anxiety. Max Daily Amount: 0.5 mg doxepin (SINEquan) 100 mg capsule Take 1 capsule (100 mg total) by mouth at bedtime. at bedtime DULoxetine (CYMBALTA) [address] capsule Take 1 capsule (60 mg total) by mouth 1 (one) time each day. famotidine (PEPCID) 20 mg tablet Take 1 tablet (20 mg total) by mouth 1 (one) time each day. 30 each 11 gabapentin (NEURONTIN) 800 mg tablet Take 1 tablet (800 mg total) by mouth 2 (two) times a day. heparin sodium,porcine (heparin, UFH,) 5,000 unit/mL injection Inject 1 mL (5,000 Units total) under the skin every 8 (eight) hours for 20 days. (Patient taking differently: Inject 1 mL (5,000 Units total) under the skin every 8 (eight) hours. Order reads at 6AM; 2PM; 10PM) hydrALAZINE (APRESOLINE) 50 mg tablet Take 1.5 tablets (75 mg total) by mouth 2 (two) times a day. methylPREDNISolone (MEDROL DOSPAK) 4 mg tablet Take 1 tablet (4 mg total) by mouth See administration instructions for 6 days. Use as directed by package instructions metoprolol tartrate (LOPRESSOR) 25 mg tablet Take 1 tablet (25 mg total) by mouth 1 (one) time eachday. oxyCODONE (ROXICODONE) 5 mg immediate release tablet Take 1 tablet (5 mg total) by mouth every 6 (six) hours if needed for moderate pain. Max Daily Amount: 20 mg senna-docusate (PERICOLACE) 8.6-50 mg per tablet Take 1 tablet by mouth at bedtime. 30 each 11 tiZANidine (ZANAFLEX) 2 mg tablet Take 1 tablet (2 mg total) by mouth 1 (one) time each day. traZODone (DESYREL) 50 mg tablet Take 1.5 tablets (75 mg total) by mouth at bedtime. triamterene-hydroCHLOROthiazide (DYAZIDE) 37.5-25 mg per capsule Take 1 capsule by mouth 1 (one) time each day. valsartan (DIOVAN) 320 mg tablet Take 1 tablet (320 mg total) by mouth 1 (one) time each day. [DISCONTINUED] acetaminophen (TYLENOL) 500 mg tablet Take 2 tablets (1,000 mg total) by mouth every6 (six) hours for 10 days. 30 tablet 0 [DISCONTINUED] cevimeline (EVOXAC) 30 mg capsule Take 1 capsule (30 mg total) by mouth 3 (three) times a day. 60 capsule 0 [DISCONTINUED] hydrALAZINE (APRESOLINE) 50 mg tablet Take 1 tablet (50 mg total) by mouth 2 (two) times a day. [DISCONTINUED] methylPREDNISolone (MEDROL) 4 mg tablet Take 1 tablet (4 mg total) by mouth 5 (five)times a day for 1 day, THEN 1 tablet (4 mg total) 4 (four) times a day (with meals and nightly) for1 day, THEN 1 tablet (4 mg total) 3 (three) times a day with meals for 1 day, THEN 1 tablet (4 mg total) 2 (two) times a day with meals for 1 day, THEN 1 tablet (4 mg total) 1 (one) time each day with breakfast for 1 day. 15 each 0 [DISCONTINUED] nitrofurantoin, macrocrystal-monohydrate, (MACROBID) 100 mg capsule Take 1 capsule (100 mg total) by mouth 1 (one) time each day for 5 days. Macrobid daily until varma discontinued forvoiding trial Objective Vitals Visit Vitals BP (!) 70/44 (BP Location: Left arm, Patient Position: Lying) Pulse 62 Temp 36.5 ??C (97.7 ??F) (Oral) Resp 17 Temp (24hrs), Av.6 ??C (97.8 ??F), Min:36.5 ??C (97.7 ??F), Max:36.6 ??C (97.9 ??F) Physical Examination General: conscious alert no acute distress HEENT: pupils are equal round and reactive. extraocular movements are grossly intact lungs clear to auscultation, no wheezing or crackles noted heart regular rate and rhythm, no murmur or rubs abdomen soft nontender nondistended positive bowel sounds Musculoskeletal: No gross deformity to joints [ no back pain to palpation] extremities without edema, erythema or calf tenderness neuro: Right lower extremity muscle strength has been 0/5 left lower extremity improved muscle strength testing noted she is now able to elicit plantar and dorsiflexion whereas before she can only wiggle her toes. Sensation is intact to the left extremity. She continues to have decreased sensation to the right leg. skin: no rashes or lesions. psych: mood stable appearing, good eye contact. LAB RESULTS (most recent) HEMATOLOGY Lab Results Component Value Date WBC 12.7 (H) 06/26/2024 HGB 11.5 06/26/2024 HCT 33.5 (L) 06/26/2024 MCV 86.8 06/26/2024 PLT 210 06/26/2024 CHEMISTRY Lab Results Component Value Date GLUCOSE 89 06/26/2024 NA 124 (L) 06/26/2024 K 4.5 06/26/2024 CO2 30 06/26/2024 CL 88 (L) 06/26/2024 BUN 27 (H) 06/26/2024 CREATININE 0.72 06/26/2024 EGFR 92 06/26/2024 CALCIUM 8.4 (L) 06/26/2024 MG 1.7 06/15/2024 PHOS 2.7 06/15/2024 ANIONGAP 6 06/26/2024 Radiology No orders to display ASSESSMENT & PLAN #Thoracic spinal stenosis, spinal mass, s/p 2 thoracic decompression surgeries 06/11 she was transferred to [facility] S/p T5-T8 fusion and T5-7 decompression T6-7 facetectomy and removal of mass. With Dr. Hall Bone and soft tissue, thoracic spine, T5-T8 excision with decompression: Fragments of benign bone and cartilage with focus of necrotic bone. No malignancy identified. Bilateral lower extremity weakness Right lower extremity 0 on 5 Left lower extremity now she is able to plantar and dorsiflex prior she was only able to wiggle hertoes Decreased sensation to the right lower extremity and abdomen Neurogenic bladder/ bowel in the setting of spinal injury Pain management currently on gabapentin 800 mg twice a day Methylprednisone 4 mg/medrol dose pack taper Tizanidine 2 mg hold if hypotension Hypotension due to recent volume loss/diarrhea Hyponatremia sodium of 124 Hold antihypertensive medications Discontinue diuretics Gentle IV fluids Check labs in the morning Hold parameters on beta-katty monitor has a history of bradycardia #Neurogenic bowel bladder Currently with Varma catheter. Patient reports that her Varma catheter was exchanged during hospital course at [place] on or about 06/11 She was found to have pyuria and was treated with Macrobid Continue with bowel regimen/program Patient reports recent diarrhea loose stools which she attributes to aggressive bowel management prior to that normal bowel movements #History of cervical spondylolisthesis with central canal stenosis #Leukocytosis Mild 12,000 Likely reactive to steroids afebrile Is not appear to be infected acutely #Atrial flutter s/p ablation Recent history of bradycardia Toprol XL 25 mg Heart rate in the 60s Monitor #Hypertension Polypharmacy with hypotension Toprol XL 25 mg hold parameters Hydralazine 75 mg twice a day reduce dose to 50 mg twice a day given hypotension Discontinue triamterene/hydrochlorothiazide Diovan 320 mg with hold parameters #Anxiety Mood stable Maintain on doxepin 100 mg nightly Duloxetine 60 mg Trazodone 75 mg nightly #DVT prophylaxis with heparin 5000 units SQ 3 times daily documented in this encounter Plan of Treatment Upcoming Encounters Date Type Department Care Team (Late st Contact Info) Description 08/06/2024 1:00 PM EST Office Visit Neurosurgery - [place] [address] [facility] [address] [place] [address] Ramirez Hall MD [address] [place] [address] documented as of this encounter Procedures Procedure Name Priority Date/Time Associated Diagnosis Comments COMPLETE BLOOD COUNT Routine 07/16/2024 5:43 AM EST MAGNESIUM Routine 07/16/2024 5:43 AM EST COMPREHENSIVE METABOLIC PANEL Routine 07/16/2024 5:43 AM EST COMPLETE BLOOD COUNT Routine 07/11/2024 5:58 AM EST BASIC METABOLIC PANEL Routine 07/11/2024 5:58 AM EST COMPLETE BLOOD COUNT Routine 07/06/2024 6:14 AM EST COMPREHENSIVE METABOLIC PANEL Routine 07/06/2024 6:14 AM EST RESPIRATORY VIRUS PANEL MOLECULAR STUDY Routine 07/04/2024 11:05 AM EST CBC WITH AUTO DIFFERENTIAL STAT 07/04/2024 8:51 AM EST CBC AND DIFFERENTIAL STAT 07/04/2024 8:51 AM EST COMPREHENSIVE METABOLIC PANEL STAT 07/04/2024 8:51 AM EST OCCULT BLOOD STOOL, GUAIAC Routine 07/03/2024 2:49 PM EST CBC WITH AUTO DIFFERENTIAL Routine 07/03/2024 6:13 AM EST CBC AND DIFFERENTIAL Routine 07/03/2024 6:13 AM EST BASIC METABOLIC PANEL Routine 07/03/2024 6:13 AM EST URINALYSIS WITH REFLEX MICROSCOPIC AND CULTURE Routine 07/02/2024 3:30 PM EST FLORES URINE CULTURE TUBE Routine 07/02/2024 3:30 PM EST URINALYSIS WITH REFLEX MICROSCOPIC AND CULTURE Routine 07/02/2024 3:30 PM EST CULTURE URINE Routine 07/02/2024 3:30 PM EST COMPLETE BLOOD COUNT Routine 07/02/2024 5:56 AM EST BASIC METABOLIC PANEL Routine 07/02/2024 5:56 AM EST BASIC METABOLIC PANEL Routine 06/28/2024 5:55 AM EST EXTRA TUBES Routine 06/28/2024 5:53 AM EST LAVENDER - EDTA Routine 06/28/2024 5:53 AM EST COMPLETE BLOOD COUNT Routine 06/27/2024 6:23 AM EST MAGNESIUM Routine 06/27/2024 6:23 AM EST COMPREHENSIVE METABOLIC PANEL Routine 06/27/2024 6:23 AM EST RBC MORPHOLOGY REVIEW Routine 06/26/2024 5:55 AM EST CBC WITH AUTO DIFFERENTIAL Routine 06/26/2024 5:55 AM EST PROTHROMBIN TIME WITH INR Routine 06/26/2024 5:55 AM EST CBC AND DIFFERENTIAL Routine 06/26/2024 5:55 AM EST COMPREHENSIVE METABOLIC PANEL Routine 06/26/2024 5:55 AM EST documented in this encounter Results * (ABNORMAL) Magnesium (07/16/2024 5:43 AM EST) [facility] Magnesium 1.5(L) 1.9 - 2.6 mg/dL LAB CHEMISTRY METHOD 07/16/2024 6:39 AM EST [facility] Blood Venous blood specimen / Unknown Venipuncture / Unknown 07/16/2024 5:43 AM EST 07/16/2024 6:09 AM EST Umm Wood NP LAB BLOOD OR DERABLES [facility] [address] [place] [address], * (ABNORMAL) Complete blood count (07/16/2024 5:43 AM EST) [facility] WBC 8.0 4.8 - 10.8 K/mcL LAB HEMETOLOGY METHOD 07/16/2024 11:23 AM EST [facility] RBC 3.60(L) 3.80 - 4.80 M/mcL LAB HEMETOLOGY METHOD 07/16/2024 11:23 AM EST [facility] Hemoglobin 10.5(L) 11.5 - 16.0 g/dL LAB HEMETOLOGY METHOD 07/16/2024 11:23 AM EST [facility] Hematocrit 33.3(L) 35.0 - 47.0 % LAB HEMETOLOGY METHOD 07/16/2024 11:23 AM EST [facility] MCV 93.8 79.0 - 98.0 FL LAB HEMETOLOGY METHOD 07/16/2024 11:23 AM EST [facility] MCH 29.6 27.0 - 32.0 pcg LAB HEMETOLOGY METHOD 07/16/2024 11:23 AM EST [facility] MCHC 31.5(L) 32.0 - 37.0 g/dL LAB HEMETOLOGY METHOD 07/16/2024 11:23 AM EST [facility] RDW 15.7(H) 11.0 - 15.0 % LAB HEMETOLOGY METHOD 07/16/2024 11:23 AM EST [facility] Platelets 400 130 - 400 K/mcL LAB HEMETOLOGY METHOD 07/16/2024 11:23 AM EST [facility] MPV 9.9 7.0 - 11.0 FL LAB HEMETOLOGY METHOD 07/16/2024 11:23 AM EST [facility] NRBC 0.0 <1.0 % LAB HEMETOLOGY METHOD 07/16/2024 11:23 AM [facility] NRBC Absolute 0.00 <0.10 K/mcL LAB HEMETOLOGY METHOD 07/16/2024 11:23 AM [facility] Blood Venous blood specimen / Unknown Venipuncture / Unknown 07/16/2024 5:43 AM EST 07/16/2024 6:09 AM EST Umm Wood NP LAB BLOOD OR DERABLES [facility] [address] [place] [address], * (ABNORMAL) Comprehensive metabolic panel (07/16/2024 5:43 AM EST) Sodium 136 133 - 145 mmol/L LAB CHEMISTRY METHOD 07/16/2024 6:39 AM EST [facility] Potassium 4.9 3.5 - 5.5 mmol/L LAB CHEMISTRY METHOD 07/16/2024 6:39 AM [facility] Chloride 101 96 - 110 mmol/L LAB CHEMISTRY METHOD 07/16/2024 6:39 AM [facility] CO2 32 21 - 32 mmol/L LAB CHEMISTRY METHOD 07/16/2024 6:39 AM [facility] Anion Gap 3 3 - 11 LAB CHEMISTRY METHOD 07/16/2024 6:39 AM [facility] Glucose 105(H) 70 - 100 mg/dL LAB CHEMISTRY METHOD 07/16/2024 6:39 AM [facility] BUN 11 5 - 25 mg/dL LAB CHEMISTRY METHOD 07/16/2024 6:39 AM [facility] Creatinine 0.55 0.50 - 1.10 mg/dL LAB CHEMISTRY METHOD 07/16/2024 6:39 AM [facility] eGFR 101 >=60 mL/min/1. 73m2 LAB CHEMISTRY METHOD 07/16/2024 6:39 AM [facility] Comment:Calculation based on the??Chronic Kidney Disease Epidemiology Collaboration (CKD-EPI) equation refit??without adjustment for race. BUN/Creatinine Ratio 20.0 LAB CHEMISTRY METHOD 07/16/2024 6:39 AM [facility] Calcium 10.2 8.5 - 10.5 mg/dL LAB CHEMISTRY METHOD 07/16/2024 6:39 AM [facility] AST (SGOT) 13 10 - 42 unit/L LAB CHEMISTRY METHOD 07/16/2024 6:39 AM [facility] ALT (SGPT) 26 10 - 60 unit/L LAB CHEMISTRY METHOD 07/16/2024 6:39 AM [facility] Alkaline Phosphatase 112 42 - 121 unit/L LAB CHEMISTRY METHOD 07/16/2024 6:39 AM [facility] Total Protein 4.9(L) 6.0 - 8.0 g/dL LAB CHEMISTRY METHOD 07/16/2024 6:39 AM EST [facility] Albumin 2.5(L) 3.2 - 5.0 g/dL LAB CHEMISTRY METHOD 07/16/2024 6:39 AM [facility] Total Bilirubin 0.4 0.0 - 1.4 mg/dL LAB CHEMISTRY METHOD 07/16/2024 6:39 AM [facility] Blood Venous blood specimen / Unknown Venipuncture / Unknown 07/16/2024 5:43 AM EST 07/16/2024 6:09 AM EST Umm Wood NP LAB BLOOD OR DERABLES [facility] [address] [place] [address], * (ABNORMAL) Basic metabolic panel (07/11/2024 5:58 AM EST) Sodium 136 133 - 145 mmol/L LAB CHEMISTRY METHOD 07/11/2024 7:41 AM [facility] Potassium 4.6 3.5 - 5.5 mmol/L LAB CHEMISTRY METHOD 07/11/2024 7:41 AM [facility] Chloride 99 96 - 110 mmol/L LAB CHEMISTRY METHOD 07/11/2024 7:41 AM [facility] CO2 33(H) 21 - 32 mmol/L LAB CHEMISTRY METHOD 07/11/2024 7:41 AM [facility] Anion Gap 4 3 - 11 LAB CHEMISTRY METHOD 07/11/2024 7:41 AM [facility] Glucose 91 70 - 100 mg/dL LAB CHEMISTRY METHOD 07/11/2024 7:41 AM [facility] BUN 9 5 - 25 mg/dL LAB CHEMISTRY METHOD 07/11/2024 7:41 AM [facility] Creatinine 0.51 0.50 - 1.10 mg/dL LAB CHEMISTRY METHOD 07/11/2024 7:41 AM EST [facility] eGFR 102 >=60 mL/min/1. 73m2 LAB CHEMISTRY METHOD 07/11/2024 7:41 AM [facility] Comment:Calculation based on the??Chronic Kidney Disease Epidemiology Collaboration (CKD-EPI) equation refit??without adjustment for race. BUN/Creatinine Ratio 17.6 LAB CHEMISTRY METHOD 07/11/2024 7:41 AM EST [facility] Calcium 9.5 8.5 - 10.5 mg/dL LAB CHEMISTRY METHOD 07/11/2024 7:41 AM [facility] Blood Venous blood specimen / Unknown Venipuncture / Unknown 07/11/2024 5:58 AM EST 07/11/2024 6:13 AM EST Darline Lara DO LAB BLOOD ORDERAB LES [facility] [address] [place] [address], * (ABNORMAL) Complete blood count (07/11/2024 5:58 AM EST) WBC 5.3 4.8 - 10.8 K/mcL LAB HEMETOLOGY METHOD 07/11/2024 7:03 AM [facility] RBC 3.30(L) 3.80 - 4.80 M/mcL LAB HEMETOLOGY METHOD 07/11/2024 7:03 AM [facility] Hemoglobin 9.9(L) 11.5 - 16.0 g/dL LAB HEMETOLOGY METHOD 07/11/2024 7:03 AM [facility] Hematocrit 30.4(L) 35.0 - 47.0 % LAB HEMETOLOGY METHOD 07/11/2024 7:03 AM [facility] MCV 91.8 79.0 - 98.0 FL LAB HEMETOLOGY METHOD 07/11/2024 7:03 AM EST [facility] MCH 29.9 27.0 - 32.0 pcg LAB HEMETOLOGY METHOD 07/11/2024 7:03 AM EST [facility] MCHC 32.6 32.0 - 37.0 g/dL LAB HEMETOLOGY METHOD 07/11/2024 7:03 AM [facility] RDW 15.9(H) 11.0 - 15.0 % LAB HEMETOLOGY METHOD 07/11/2024 7:03 AM [facility] Platelets 403(H) 130 - 400 K/mcL LAB HEMETOLOGY METHOD 07/11/2024 7:03 AM [facility] MPV 9.3 7.0 - 11.0 FL LAB HEMETOLOGY METHOD 07/11/2024 7:03 AM [facility] NRBC 0.0 <1.0 % LAB HEMETOLOGY METHOD 07/11/2024 7:03 AM [facility] NRBC Absolute 0.00 <0.10 K/mcL LAB HEMETOLOGY METHOD 07/11/2024 7:03 AM [facility] Blood Venous blood specimen / Unknown Venipuncture / Unknown 07/11/2024 5:58 AM EST 07/11/2024 6:13 AM EST Darline Lara DO LAB BLOOD ORDERAB LES [facility] [address] [place] [address], * (ABNORMAL) Complete blood count (07/06/2024 6:14 AM EST) WBC 4.9 4.8 - 10.8 K/mcL LAB HEMETOLOGY METHOD 07/06/2024 6:44 AM EST [facility] RBC 3.00(L) 3.80 - 4.80 M/mcL LAB HEMETOLOGY METHOD 07/06/2024 6:44 AM [facility] Hemoglobin 8.8(L) 11.5 - 16.0 g/dL LAB HEMETOLOGY METHOD 07/06/2024 6:44 AM [facility] Hematocrit 27.2(L) 35.0 - 47.0 % LAB HEMETOLOGY METHOD 07/06/2024 6:44 AM [facility] MCV 91.3 79.0 - 98.0 FL LAB HEMETOLOGY METHOD 07/06/2024 6:44 AM [facility] MCH 29.5 27.0 - 32.0 pcg LAB HEMETOLOGY METHOD 07/06/2024 6:44 AM [facility] MCHC 32.4 32.0 - 37.0 g/dL LAB HEMETOLOGY METHOD 07/06/2024 6:44 AM [facility] RDW 15.4(H) 11.0 - 15.0 % LAB HEMETOLOGY METHOD 07/06/2024 6:44 AM [facility] Platelets 147 130 - 400 K/mcL LAB HEMETOLOGY METHOD 07/06/2024 6:44 AM [facility] MPV 9.1 7.0 - 11.0 FL LAB HEMETOLOGY METHOD 07/06/2024 6:44 AM [facility] NRBC 0.0 <1.0 % LAB HEMETOLOGY METHOD 07/06/2024 6:44 AM [facility] NRBC Absolute 0.00 <0.10 K/mcL LAB HEMETOLOGY METHOD 07/06/2024 6:44 AM [facility] Blood Venous blood specimen / Unknown Venipuncture / Unknown 07/06/2024 6:14 AM EST 07/06/2024 6:26 AM EST Ignacia YIP LAB BLOOD ORDERABLES [facility] [address] [place] [address], * (ABNORMAL) Comprehensive metabolic panel (07/06/2024 6:14 AM EST) Sodium 134 133 - 145 mmol/L LAB CHEMISTRY METHOD 07/06/2024 7:27 AM EST [facility] Potassium 4.1 3.5 - 5.5 mmol/L LAB CHEMISTRY METHOD 07/06/2024 7:27 AM [facility] Chloride 98 96 - 110 mmol/L LAB CHEMISTRY METHOD 07/06/2024 7:27 AM [facility] CO2 32 21 - 32 mmol/L LAB CHEMISTRY METHOD 07/06/2024 7:27 AM [facility] Anion Gap 4 3 - 11 LAB CHEMISTRY METHOD 07/06/2024 7:27 AM [facility] Glucose 102(H) 70 - 100 mg/dL LAB CHEMISTRY METHOD 07/06/2024 7:27 AM [facility] BUN 11 5 - 25 mg/dL LAB CHEMISTRY METHOD 07/06/2024 7:27 AM [facility] Creatinine 0.49(L) 0.50 - 1.10 mg/dL LAB CHEMISTRY METHOD 07/06/2024 7:27 AM [facility] eGFR 103 >=60 mL/min/1. 73m2 LAB CHEMISTRY METHOD 07/06/2024 7:27 AM [facility] Comment:Calculation based on the??Chronic Kidney Disease Epidemiology Collaboration (CKD-EPI) equation refit??without adjustment for race. BUN/Creatinine Ratio 22.4 LAB CHEMISTRY METHOD 07/06/2024 7:27 AM [facility] Calcium 9.2 8.5 - 10.5 mg/dL LAB CHEMISTRY METHOD 07/06/2024 7:27 AM [facility] AST (SGOT) 14 10 - 42 unit/L LAB CHEMISTRY METHOD 07/06/2024 7:27 AM [facility] ALT (SGPT) 35 10 - 60 unit/L LAB CHEMISTRY METHOD 07/06/2024 7:27 AM [facility] Alkaline Phosphatase 101 42 - 121 unit/L LAB CHEMISTRY METHOD 07/06/2024 7:27 AM [facility] Total Protein 4.4(L) 6.0 - 8.0 g/dL LAB CHEMISTRY METHOD 07/06/2024 7:27 AM [facility] Albumin 2.2(L) 3.2 - 5.0 g/dL LAB CHEMISTRY METHOD 07/06/2024 7:27 AM [facility] Total Bilirubin 0.3 0.0 - 1.4 mg/dL LAB CHEMISTRY METHOD 07/06/2024 7:27 AM [facility] Blood Venous blood specimen / Unknown Venipuncture / Unknown 07/06/2024 6:14 AM EST 07/06/2024 6:26 AM EST Ignacia YIP LAB BLOOD ORDERABLES [facility] [address] [place] [address], * (ABNORMAL) Respiratory virus panel molecular study (07/04/2024 11:05 AM EST) Adenovirus Detection by PCR Not Detected Not Detected LAB MICROBIOLOGY METHOD 07/04/2024 12:28 PM [facility] Influenza A PCR Not Detected Not Detected LAB MICROBIOLOGY METHOD 07/04/2024 12:28 PM [facility] Influenza B PCR Not Detected Not Detected LAB MICROBIOLOGY METHOD 07/04/2024 12:28 PM [facility] Coronavirus 229E Not Detected Not Detected LAB MICROBIOLOGY METHOD 07/04/2024 12:28 PM [facility] Coronavirus HKU1 Not Detected Not Detected LAB MICROBIOLOGY METHOD 07/04/2024 12:28 PM [facility] Coronavirus OC43 Not Detected Not Detected LAB MICROBIOLOGY METHOD 07/04/2024 12:28 PM [facility] Coronavirus NL63 Not Detected Not Detected LAB MICROBIOLOGY METHOD 07/04/2024 12:28 PM [facility] Parainfluenza Virus 1 Not Detected Not Detected LAB MICROBIOLOGY METHOD 07/04/2024 12:28 PM [facility] Parainfluenza Virus 2 Not Detected Not Detected LAB MICROBIOLOGY METHOD 07/04/2024 12:28 PM [facility] Parainfluenza Virus 3 Not Detected Not Detected LAB MICROBIOLOGY METHOD 07/04/2024 12:28 PM [facility] Parainfluenza Virus 4 Not Detected Not Detected LAB MICROBIOLOGY METHOD 07/04/2024 12:28 PM [facility] RSV PCR Not Detected Not Detected LAB MICROBIOLOGY METHOD 07/04/2024 12:28 PM [facility] Human Metapneumovirus A and B Not Detected Not Detected LAB MICROBIOLOGY METHOD 07/04/2024 12:28 PM [facility] Rhinovirus/Entero virus Not Detected Not Detected LAB MICROBIOLOGY METHOD 07/04/2024 12:28 PM [facility] Bordetella pertussis Not Detected Not Detected LAB MICROBIOLOGY METHOD 07/04/2024 12:28 PM [facility] Bordetella parapertussis Not Detected Not Detected LAB MICROBIOLOGY METHOD 07/04/2024 12:28 PM [facility] Mycoplasma pneumo by PCR Not Detected Not Detected LAB MICROBIOLOGY METHOD 07/04/2024 12:28 PM [facility] Chlamydia pneumoniae Not Detected Not Detected LAB MICROBIOLOGY METHOD 07/04/2024 12:28 PM [facility] SARS COV-2 Detected(A ) Not Detected LAB MICROBIOLOGY METHOD 07/04/2024 12:28 PM [facility] Swab Both anterior nares / Unknown Non-blood Collection / Unknown 07/04/2024 11:05 AM EST 07/04/2024 11:13 AM EST [facility] - 07/04/2024 12:28 PM EST Testing was performed using the [employer] Respiratory Pathogen PCR Assay. All results must be correlated with the clinical findings. Results should not be used as the sole basis for diagnosis. False Negative results may occur from the presence of sequence variants in the region targeted by the assay or the presence of inhibitors. Results may be affected by concurrent antiviral/antimicrobial therapy or levels of organisms that are below the limit of detection. [facility] MICROBIOLOGY - G ENERAL ORDERABLES [facility] [address] [place] [address], * (ABNORMAL) CBC auto differential (07/04/2024 8:51 AM EST) WBC 8.4 4.8 - 10.8 K/mcL LAB HEMETOLOGY METHOD 07/04/2024 9:08 AM [facility] RBC 3.10(L) 3.80 - 4.80 M/mcL LAB HEMETOLOGY METHOD 07/04/2024 9:08 AM [facility] Hemoglobin 9.1(L) 11.5 - 16.0 g/dL LAB HEMETOLOGY METHOD 07/04/2024 9:08 AM [facility] Hematocrit 28.3(L) 35.0 - 47.0 % LAB HEMETOLOGY METHOD 07/04/2024 9:08 AM [facility] MCV 92.5 79.0 - 98.0 FL LAB HEMETOLOGY METHOD 07/04/2024 9:08 AM [facility] MCH 29.7 27.0 - 32.0 pcg LAB HEMETOLOGY METHOD 07/04/2024 9:08 AM [facility] MCHC 32.2 32.0 - 37.0 g/dL LAB HEMETOLOGY METHOD 07/04/2024 9:08 AM [facility] RDW 16.1(H) 11.0 - 15.0 % LAB HEMETOLOGY METHOD 07/04/2024 9:08 AM [facility] Platelets 141 130 - 400 K/mcL LAB HEMETOLOGY METHOD 07/04/2024 9:08 AM [facility] MPV 9.3 7.0 - 11.0 FL LAB HEMETOLOGY METHOD 07/04/2024 9:08 AM [facility] NRBC 0.0 <1.0 % LAB HEMETOLOGY METHOD 07/04/2024 9:08 AM [facility] NRBC Absolute 0.00 <0.10 K/mcL LAB HEMETOLOGY METHOD 07/04/2024 9:08 AM [facility] Neutrophils Relative 75.7 % LAB HEMETOLOGY METHOD 07/04/2024 9:08 AM [facility] Lymphocytes Relative 13.4 % LAB HEMETOLOGY METHOD 07/04/2024 9:08 AM [facility] Monocytes Relative 7.1 % LAB HEMETOLOGY METHOD 07/04/2024 9:08 AM [facility] Eosinophils Relative 2.8 % LAB HEMETOLOGY METHOD 07/04/2024 9:08 AM [facility] Basophils Relative 0.2 % LAB HEMETOLOGY METHOD 07/04/2024 9:08 AM [facility] Immature Granulocytes Relative 0.8 % LAB HEMETOLOGY METHOD 07/04/2024 9:08 AM [facility] Neutrophils Absolute 6.38 1.50 - 7.00 K/mcL LAB HEMETOLOGY METHOD 07/04/2024 9:08 AM EST [facility] Lymphocytes Absolute 1.13 1.00 - 5.00 K/[facility] LAB HEMETOLOGY METHOD 07/04/2024 9:08 AM EST [facility] Monocytes Absolute 0.60 0.20 - 1.00 K/[facility] LAB HEMETOLOGY METHOD 07/04/2024 9:08 AM EST [facility] Eosinophils Absolute 0.24 0.00 - 0.50 K/[facility] LAB HEMETOLOGY METHOD 07/04/2024 9:08 AM EST [facility] Basophils Absolute 0.02 0.00 - 0.20 K/[facility] LAB HEMETOLOGY METHOD 07/04/2024 9:08 AM [facility] Immature Granulocytes Absolute 0.07(H) 0.00 - 0.03 K/[facility] LAB HEMETOLOGY METHOD 07/04/2024 9:08 AM [facility] Blood Venous blood specimen / Unknown Venipuncture / Unknown 07/04/2024 8:51 AM EST 07/04/2024 8:57 AM EST Darline Lara DO LAB BLOOD ORDERAB LES [facility] [address] [place] [address], * (ABNORMAL) Comprehensive metabolic panel (07/04/2024 8:51 AM EST) Sodium 138 133 - 145 mmol/L LAB CHEMISTRY METHOD 07/04/2024 9:40 AM EST [facility] Potassium 4.3 3.5 - 5.5 mmol/L LAB CHEMISTRY METHOD 07/04/2024 9:40 AM EST [facility] Chloride 100 96 - 110 mmol/L LAB CHEMISTRY METHOD 07/04/2024 9:40 AM EST [facility] CO2 35(H) 21 - 32 mmol/L LAB CHEMISTRY METHOD 07/04/2024 9:40 AM [facility] Anion Gap 3 3 - 11 LAB CHEMISTRY METHOD 07/04/2024 9:40 AM [facility] Glucose 118(H) 70 - 100 mg/dL LAB CHEMISTRY METHOD 07/04/2024 9:40 AM [facility] BUN 14 5 - 25 mg/dL LAB CHEMISTRY METHOD 07/04/2024 9:40 AM [facility] Creatinine 0.53 0.50 - 1.10 mg/dL LAB CHEMISTRY METHOD 07/04/2024 9:40 AM [facility] eGFR 102 >=60 mL/min/1. 73m2 LAB CHEMISTRY METHOD 07/04/2024 9:40 AM [facility] Comment:Calculation based on the??Chronic Kidney Disease Epidemiology Collaboration (CKD-EPI) equation refit??without adjustment for race. BUN/Creatinine Ratio 26.4 LAB CHEMISTRY METHOD 07/04/2024 9:40 AM [facility] Calcium 8.9 8.5 - 10.5 mg/dL LAB CHEMISTRY METHOD 07/04/2024 9:40 AM [facility] AST (SGOT) 18 10 - 42 unit/L LAB CHEMISTRY METHOD 07/04/2024 9:40 AM [facility] ALT (SGPT) 44 10 - 60 unit/L LAB CHEMISTRY METHOD 07/04/2024 9:40 AM [facility] Alkaline Phosphatase 98 42 - 121 unit/L LAB CHEMISTRY METHOD 07/04/2024 9:40 AM [facility] Total Protein 4.6(L) 6.0 - 8.0 g/dL LAB CHEMISTRY METHOD 07/04/2024 9:40 AM [facility] Albumin 2.3(L) 3.2 - 5.0 g/dL LAB CHEMISTRY METHOD 07/04/2024 9:40 AM [facility] Total Bilirubin 0.5 0.0 - 1.4 mg/dL LAB CHEMISTRY METHOD 07/04/2024 9:40 AM EST [facility] Blood Venous blood specimen / Unknown Venipuncture / Unknown 07/04/2024 8:51 AM EST 07/04/2024 8:57 AM EST Darline Lara DO LAB BLOOD ORDERAB LES Performing Organization Address City/[facility]/ZIP Co de Phone Number [facility] [address] [place] [address], [place] [phone] * Occult blood stool, guaiac (07/03/2024 2:49 PM EST) [facility] Occult Blood, Stool #1 Negative Negative 07/03/2024 3:29 PM [facility] Stool Non-blood Collection / Unknown 07/03/2024 2:49 PM EST 07/03/2024 2:49 PM EST Umm Wood NP LAB BODY FLU IDS AND STOOLS ORDERABLES Performing Organization Address [facility]/ZIP Co de Phone Number [facility] [address] [place] [address], [place] [phone] * (ABNORMAL) CBC auto differential (07/03/2024 6:13 AM EST) [facility] WBC 9.1 4.8 - 10.8 K/[facility] HEMETOLOGY METHOD 07/03/2024 6:41 AM EST [facility] RBC 3.30(L) 3.80 - 4.80 M/[facility] HEMETOLOGY METHOD 07/03/2024 6:41 AM [facility] Hemoglobin 10.0(L) 11.5 - 16.0 g/dL LAB HEMETOLOGY METHOD 07/03/2024 6:41 AM [facility] Hematocrit 30.6(L) 35.0 - 47.0 % LAB HEMETOLOGY METHOD 07/03/2024 6:41 AM [facility] MCV 91.6 79.0 - 98.0 FL LAB HEMETOLOGY METHOD 07/03/2024 6:41 AM [facility] MCH 29.9 27.0 - 32.0 pcg LAB HEMETOLOGY METHOD 07/03/2024 6:41 AM [facility] MCHC 32.7 32.0 - 37.0 g/dL LAB HEMETOLOGY METHOD 07/03/2024 6:41 AM [facility] RDW 16.0(H) 11.0 - 15.0 % LAB HEMETOLOGY METHOD 07/03/2024 6:41 AM [facility] Platelets 153 130 - 400 K/mcL LAB HEMETOLOGY METHOD 07/03/2024 6:41 AM [facility] MPV 9.5 7.0 - 11.0 FL LAB HEMETOLOGY METHOD 07/03/2024 6:41 AM [facility] NRBC 0.0 <1.0 % LAB HEMETOLOGY METHOD 07/03/2024 6:41 AM [facility] NRBC Absolute 0.00 <0.10 K/mcL LAB HEMETOLOGY METHOD 07/03/2024 6:41 AM [facility] Neutrophils Relative 78.2 % LAB HEMETOLOGY METHOD 07/03/2024 6:41 AM [facility] Lymphocytes Relative 11.7 % LAB HEMETOLOGY METHOD 07/03/2024 6:41 AM [facility] Monocytes Relative 7.5 % LAB HEMETOLOGY METHOD 07/03/2024 6:41 AM [facility] Eosinophils Relative 1.3 % LAB HEMETOLOGY METHOD 07/03/2024 6:41 AM [facility] Basophils Relative 0.3 % LAB HEMETOLOGY METHOD 07/03/2024 6:41 AM EST [facility] Immature Granulocytes Relative 1.0 % LAB HEMETOLOGY METHOD 07/03/2024 6:41 AM EST [facility] Neutrophils Absolute 7.11(H) 1.50 - 7.00 K/mcL LAB HEMETOLOGY METHOD 07/03/2024 6:41 AM [facility] Lymphocytes Absolute 1.06 1.00 - 5.00 K/mcL LAB HEMETOLOGY METHOD 07/03/2024 6:41 AM EST [facility] Monocytes Absolute 0.68 0.20 - 1.00 K/mcL LAB HEMETOLOGY METHOD 07/03/2024 6:41 AM [facility] Eosinophils Absolute 0.12 0.00 - 0.50 K/mcL LAB HEMETOLOGY METHOD 07/03/2024 6:41 AM [facility] Basophils Absolute 0.03 0.00 - 0.20 K/mcL LAB HEMETOLOGY METHOD 07/03/2024 6:41 AM [facility] Immature Granulocytes Absolute 0.09(H) 0.00 - 0.03 K/mcL LAB HEMETOLOGY METHOD 07/03/2024 6:41 AM [facility] Blood Venous blood specimen / Unknown Venipuncture / Unknown 07/03/2024 6:13 AM EST 07/03/2024 6:21 AM EST Darline Lara DO LAB BLOOD ORDERAB LES [facility] [address] [place] [address], * (ABNORMAL) Basic metabolic panel (07/03/2024 6:13 AM EST) Sodium 131(L) 133 - 145 mmol/L LAB CHEMISTRY METHOD 07/03/2024 6:51 AM EST [facility] Potassium 4.2 3.5 - 5.5 mmol/L LAB CHEMISTRY METHOD 07/03/2024 6:51 AM [facility] Chloride 95(L) 96 - 110 mmol/L LAB CHEMISTRY METHOD 07/03/2024 6:51 AM [facility] CO2 32 21 - 32 mmol/L LAB CHEMISTRY METHOD 07/03/2024 6:51 AM [facility] Anion Gap 4 3 - 11 LAB CHEMISTRY METHOD 07/03/2024 6:51 AM [facility] Glucose 95 70 - 100 mg/dL LAB CHEMISTRY METHOD 07/03/2024 6:51 AM [facility] BUN 13 5 - 25 mg/dL LAB CHEMISTRY METHOD 07/03/2024 6:51 AM [facility] Creatinine 0.53 0.50 - 1.10 mg/dL LAB CHEMISTRY METHOD 07/03/2024 6:51 AM [facility] eGFR 102 >=60 mL/min/1. 73m2 LAB CHEMISTRY METHOD 07/03/2024 6:51 AM [facility] Comment:Calculation based on the??Chronic Kidney Disease Epidemiology Collaboration (CKD-EPI) equation refit??without adjustment for race. BUN/Creatinine Ratio 24.5 LAB CHEMISTRY METHOD 07/03/2024 6:51 AM [facility] Calcium 8.8 8.5 - 10.5 mg/dL LAB CHEMISTRY METHOD 07/03/2024 6:51 AM [facility] Blood Venous blood specimen / Unknown Venipuncture / Unknown 07/03/2024 6:13 AM EST 07/03/2024 6:21 AM EST Darline Lara DO LAB BLOOD ORDERAB LES [facility] [address] [place] [address], * (ABNORMAL) Culture urine (07/02/2024 3:30 PM EST) Culture, Urine >100,000 CFU/mL Escherichia coli(A) ANAY 07/04/2024 8:56 AM EST [facility] Urine Urinary bladder structure / Unknown Non-blood Collection / Unknown 07/02/2024 3:30 PM EST 07/02/2024 4:08 PM EST Narrative Organism Antibiotic Method Susceptibility Escherichia coli Amoxicillin/Clavulanate ANAY <=2 ug/ml: Susceptible Escherichia coli Ampicillin/Sulbactam ANAY <=2 ug/ml: Susceptible Escherichia coli Piperacillin/Tazobactam ANAY <=4 ug/ml: Susceptible Escherichia coli Cefazolin (Urine) ANAY <=1 ug/ml: Susceptible Escherichia coli Cefoxitin ANAY <=4 ug/ml: Susceptible Escherichia coli Ceftazidime ANAY <=0.5 ug/ml: Susceptible Escherichia coli Ceftriaxone ANAY <=0.25 ug/ml: Susceptible Escherichia coli Cefepime ANAY <=0.12 ug/ml: Susceptible Escherichia coli Meropenem ANAY <=0.25 ug/ml: Susceptible Escherichia coli Amikacin ANAY 2 ug/ml: Susceptible Escherichia coli Gentamicin ANAY <=1 ug/ml: Susceptible Escherichia coli Ciprofloxacin ANAY <=0.06 ug/ml: Susceptible Escherichia coli Levofloxacin ANAY <=0.12 ug/ml: Susceptible Escherichia coli Nitrofurantoin ANAY <=16 ug/ml: Susceptible Escherichia coli Trimethoprim/Sulfamethoxazole ANAY <=20 ug/ml: Susceptible Darline Lara DO LAB MICROBIOLOGY - GENERAL ORDERABLES [facility] [address] [place] [address], * Flores urine culture tube (07/02/2024 3:30 PM EST) Pathologist [facility] Extra Tube Hold for add-ons. 07/02/2024 5:02 PM EST [facility] Comment:Auto resulted. Urine Urinary bladder structure / Unknown Non-blood Collection / Unknown 07/02/2024 3:30 PM EST 07/02/2024 3:35 PM EST Darline Lara DO LAB URINE ORDERAB LES [facility] [address] [place] [address], [place] [phone] * (ABNORMAL) Urinalysis with reflex microscopic and culture (07/02/2024 3:30 PM EST) Specific [place] Urine 1.009 1.003 - 1.030 LAB URINALYSIS - AUTOMATED METHOD 07/02/2024 4:08 PM [facility] pH, Urine 7.5 5.0 - 8.0 pH LAB URINALYSIS - AUTOMATED METHOD 07/02/2024 4:08 PM [facility] Leukocytes, Urine Moderate(A) Negative LAB URINALYSIS - AUTOMATED METHOD 07/02/2024 4:08 PM [facility] Nitrite, Urine Negative Negative LAB URINALYSIS - AUTOMATED METHOD 07/02/2024 4:08 PM [facility] Protein, Urine Negative <=Trace mg/dL LAB URINALYSIS - AUTOMATED METHOD 07/02/2024 4:08 PM [facility] Glucose, Urine Negative Negative mg/dL LAB URINALYSIS - AUTOMATED METHOD 07/02/2024 4:08 PM [facility] Ketones, Urine Negative Negative mg/dL LAB URINALYSIS - AUTOMATED METHOD 07/02/2024 4:08 PM [facility] Urobilinogen , Urine 1.0 0.2 - 1.0 mg/dL LAB URINALYSIS - AUTOMATED METHOD 07/02/2024 4:08 PM [facility] Bilirubin, Urine Negative Negative LAB URINALYSIS - AUTOMATED METHOD 07/02/2024 4:08 PM [facility] Blood, Urine Negative Negative LAB URINALYSIS - AUTOMATED METHOD 07/02/2024 4:08 PM EST [facility] RBC, Urine 3.1 0 - 4 /HPF LAB URINALYSIS - AUTOMATED METHOD 07/02/2024 4:08 PM [facility] WBC, Urine 79.0(H) 0 - 4 /HPF LAB URINALYSIS - AUTOMATED METHOD 07/02/2024 4:08 PM [facility] Squamous Epithelial, Urine 4 0 - 60 /LPF LAB URINALYSIS - AUTOMATED METHOD 07/02/2024 4:08 PM [facility] Non-Squamous Epithelial, Urine 2-5 TRANSITIONAL EPI /LPF LAB URINALYSIS - AUTOMATED METHOD 07/02/2024 4:08 PM [facility] Bacteria, Urine Moderate(A) Negative /HPF LAB URINALYSIS - AUTOMATED METHOD 07/02/2024 4:08 PM [facility] Hyaline Casts, Urine 0.0 0 - 3 /LPF LAB URINALYSIS - AUTOMATED METHOD 07/02/2024 4:08 PM [facility] Urine Urinary bladder structure / Unknown Non-blood Collection / Unknown 07/02/2024 3:30 PM EST 07/02/2024 3:35 PM EST Darline Lara DO LAB URINE ORDERAB LES [facility] [address] [place] [address], * (ABNORMAL) Complete blood count (07/02/2024 5:56 AM EST) WBC 6.7 4.8 - 10.8 K/mcL LAB HEMETOLOGY METHOD 07/02/2024 6:25 AM [facility] RBC 3.10(L) 3.80 - 4.80 M/mcL LAB HEMETOLOGY METHOD 07/02/2024 6:25 AM [facility] Hemoglobin 9.5(L) 11.5 - 16.0 g/dL LAB HEMETOLOGY METHOD 07/02/2024 6:25 AM EST [facility] Hematocrit 29.5(L) 35.0 - 47.0 % LAB HEMETOLOGY METHOD 07/02/2024 6:25 AM [facility] MCV 94.9 79.0 - 98.0 FL LAB HEMETOLOGY METHOD 07/02/2024 6:25 AM EST [facility] MCH 30.5 27.0 - 32.0 pcg LAB HEMETOLOGY METHOD 07/02/2024 6:25 AM EST [facility] MCHC 32.2 32.0 - 37.0 g/dL LAB HEMETOLOGY METHOD 07/02/2024 6:25 AM [facility] RDW 16.0(H) 11.0 - 15.0 % LAB HEMETOLOGY METHOD 07/02/2024 6:25 AM EST [facility] Platelets 148 130 - 400 K/mcL LAB HEMETOLOGY METHOD 07/02/2024 6:25 AM EST [facility] MPV 9.7 7.0 - 11.0 FL LAB HEMETOLOGY METHOD 07/02/2024 6:25 AM EST [facility] NRBC 0.0 <1.0 % LAB HEMETOLOGY METHOD 07/02/2024 6:25 AM EST [facility] NRBC Absolute 0.00 <0.10 K/mcL LAB HEMETOLOGY METHOD 07/02/2024 6:25 AM [facility] Blood Venous blood specimen / Unknown Venipuncture / Unknown 07/02/2024 5:56 AM EST 07/02/2024 6:12 AM EST Umm Wood NP LAB BLOOD OR DERABLES [facility] [address] [place] [address], * (ABNORMAL) Basic metabolic panel (07/02/2024 5:56 AM EST) Sodium 136 133 - 145 mmol/L LAB CHEMISTRY METHOD 07/02/2024 6:43 AM [facility] Potassium 4.5 3.5 - 5.5 mmol/L LAB CHEMISTRY METHOD 07/02/2024 6:43 AM [facility] Chloride 98 96 - 110 mmol/L LAB CHEMISTRY METHOD 07/02/2024 6:43 AM [facility] CO2 35(H) 21 - 32 mmol/L LAB CHEMISTRY METHOD 07/02/2024 6:43 AM [facility] Anion Gap 3 3 - 11 LAB CHEMISTRY METHOD 07/02/2024 6:43 AM [facility] Glucose 96 70 - 100 mg/dL LAB CHEMISTRY METHOD 07/02/2024 6:43 AM [facility] BUN 12 5 - 25 mg/dL LAB CHEMISTRY METHOD 07/02/2024 6:43 AM [facility] Creatinine 0.52 0.50 - 1.10 mg/dL LAB CHEMISTRY METHOD 07/02/2024 6:43 AM [facility] eGFR 102 >=60 mL/min/1. 73m2 LAB CHEMISTRY METHOD 07/02/2024 6:43 AM [facility] Comment:Calculation based on the??Chronic Kidney Disease Epidemiology Collaboration (CKD-EPI) equation refit??without adjustment for race. BUN/Creatinine Ratio 23.1 LAB CHEMISTRY METHOD 07/02/2024 6:43 AM [facility] Calcium 8.9 8.5 - 10.5 mg/dL LAB CHEMISTRY METHOD 07/02/2024 6:43 AM [facility] Blood Venous blood specimen / Unknown Venipuncture / Unknown 07/02/2024 5:56 AM EST 07/02/2024 6:12 AM EST Umm Wood NP LAB BLOOD OR DERABLES [facility] [address] [place] [address], * (ABNORMAL) Basic metabolic panel (06/28/2024 5:55 AM EST) Sodium 131(L) 133 - 145 mmol/L LAB CHEMISTRY METHOD 06/28/2024 7:02 AM [facility] Potassium 4.2 3.5 - 5.5 mmol/L LAB CHEMISTRY METHOD 06/28/2024 7:02 AM [facility] Chloride 98 96 - 110 mmol/L LAB CHEMISTRY METHOD 06/28/2024 7:02 AM [facility] CO2 31 21 - 32 mmol/L LAB CHEMISTRY METHOD 06/28/2024 7:02 AM [facility] Anion Gap 2(L) 3 - 11 LAB CHEMISTRY METHOD 06/28/2024 7:02 AM [facility] Glucose 98 70 - 100 mg/dL LAB CHEMISTRY METHOD 06/28/2024 7:02 AM [facility] BUN 18 5 - 25 mg/dL LAB CHEMISTRY METHOD 06/28/2024 7:02 AM [facility] Creatinine 0.46(L) 0.50 - 1.10 mg/dL LAB CHEMISTRY METHOD 06/28/2024 7:02 AM [facility] eGFR 105 >=60 mL/min/1. 73m2 LAB CHEMISTRY METHOD 06/28/2024 7:02 AM [facility] Comment:Calculation based on the??Chronic Kidney Disease Epidemiology Collaboration (CKD-EPI) equation refit??without adjustment for race. BUN/Creatinine Ratio 39.1 LAB CHEMISTRY METHOD 06/28/2024 7:02 AM [facility] Calcium 8.5 8.5 - 10.5 mg/dL LAB CHEMISTRY METHOD 06/28/2024 7:02 AM EST [facility] Blood Venous blood specimen / Unknown Venipuncture / Unknown 06/28/2024 5:55 AM EST 06/28/2024 6:27 AM EST Igncaia YIP LAB BLOOD ORDERABLES [facility] [address] [place] [address], [place] [phone] * Lavender tube (06/28/2024 5:53 AM EST) Extra Tube Hold for add-ons. 06/28/2024 8:01 AM EST [facility] Comment:Auto resulted. Blood Venous blood specimen / Unknown Venipuncture / Unknown 06/28/2024 5:53 AM EST 06/28/2024 6:28 AM EST Darline Lara DO LAB BLOOD ORDERAB LES Performing Organization Address City/[facility]/ZIP Co de Phone Number [facility] [address] [place] [address], [place] [phone] * Magnesium (06/27/2024 6:23 AM EST) Magnesium 1.9 1.9 - 2.6 mg/dL LAB CHEMISTRY METHOD 06/27/2024 7:45 AM EST [facility] Blood Venous blood specimen / Unknown Venipuncture / Unknown 06/27/2024 6:23 AM EST 06/27/2024 6:47 AM EST Ignacia YIP LAB BLOOD ORDERABLES [facility] [address] [place] [address], [place] [phone] * (ABNORMAL) Complete blood count (06/27/2024 6:23 AM EST) [facility] WBC 9.8 4.8 - 10.8 K/mcL LAB HEMETOLOGY METHOD 06/27/2024 7:43 AM [facility] RBC 3.50(L) 3.80 - 4.80 M/mcL LAB HEMETOLOGY METHOD 06/27/2024 7:43 AM [facility] Hemoglobin 10.4(L) 11.5 - 16.0 g/dL LAB HEMETOLOGY METHOD 06/27/2024 7:43 AM [facility] Hematocrit 31.5(L) 35.0 - 47.0 % LAB HEMETOLOGY METHOD 06/27/2024 7:43 AM [facility] MCV 91.0 79.0 - 98.0 FL LAB HEMETOLOGY METHOD 06/27/2024 7:43 AM [facility] MCH 30.1 27.0 - 32.0 pcg LAB HEMETOLOGY METHOD 06/27/2024 7:43 AM [facility] MCHC 33.0 32.0 - 37.0 g/dL LAB HEMETOLOGY METHOD 06/27/2024 7:43 AM [facility] RDW 15.3(H) 11.0 - 15.0 % LAB HEMETOLOGY METHOD 06/27/2024 7:43 AM [facility] Platelets 177 130 - 400 K/mcL LAB HEMETOLOGY METHOD 06/27/2024 7:43 AM [facility] MPV 9.9 7.0 - 11.0 FL LAB HEMETOLOGY METHOD 06/27/2024 7:43 AM [facility] NRBC 0.0 <1.0 % LAB HEMETOLOGY METHOD 06/27/2024 7:43 AM [facility] NRBC Absolute 0.00 <0.10 K/mcL LAB HEMETOLOGY METHOD 06/27/2024 7:43 AM [facility] Blood Venous blood specimen / Unknown Venipuncture / Unknown 06/27/2024 6:23 AM EST 06/27/2024 6:47 AM EST Ignacia YIP LAB BLOOD ORDERABLES [facility] [address] [place] [address], * (ABNORMAL) Comprehensive metabolic panel (06/27/2024 6:23 AM EST) Sodium 129(L) 133 - 145 mmol/L LAB CHEMISTRY METHOD 06/27/2024 7:46 AM [facility] Potassium 4.9 3.5 - 5.5 mmol/L LAB CHEMISTRY METHOD 06/27/2024 7:46 AM [facility] Chloride 93(L) 96 - 110 mmol/L LAB CHEMISTRY METHOD 06/27/2024 7:46 AM [facility] CO2 31 21 - 32 mmol/L LAB CHEMISTRY METHOD 06/27/2024 7:46 AM [facility] Anion Gap 5 3 - 11 LAB CHEMISTRY METHOD 06/27/2024 7:46 AM [facility] Glucose 88 70 - 100 mg/dL LAB CHEMISTRY METHOD 06/27/2024 7:46 AM [facility] BUN 31(H) 5 - 25 mg/dL LAB CHEMISTRY METHOD 06/27/2024 7:46 AM [facility] Creatinine 0.77 0.50 - 1.10 mg/dL LAB CHEMISTRY METHOD 06/27/2024 7:46 AM [facility] eGFR 85 >=60 mL/min/1. 73m2 LAB CHEMISTRY METHOD 06/27/2024 7:46 AM [facility] Comment:Calculation based on the??Chronic Kidney Disease Epidemiology Collaboration (CKD-EPI) equation refit??without adjustment for race. BUN/Creatinine Ratio 40.3 LAB CHEMISTRY METHOD 06/27/2024 7:46 AM [facility] Calcium 8.5 8.5 - 10.5 mg/dL LAB CHEMISTRY METHOD 06/27/2024 7:46 AM [facility] AST (SGOT) 19 10 - 42 unit/L LAB CHEMISTRY METHOD 06/27/2024 7:46 AM [facility] ALT (SGPT) 22 10 - 60 unit/L LAB CHEMISTRY METHOD 06/27/2024 7:46 AM [facility] Alkaline Phosphatase 82 42 - 121 unit/L LAB CHEMISTRY METHOD 06/27/2024 7:46 AM [facility] Total Protein 5.0(L) 6.0 - 8.0 g/dL LAB CHEMISTRY METHOD 06/27/2024 7:46 AM [facility] Albumin 2.9(L) 3.2 - 5.0 g/dL LAB CHEMISTRY METHOD 06/27/2024 7:46 AM [facility] Total Bilirubin 0.7 0.0 - 1.4 mg/dL LAB CHEMISTRY METHOD 06/27/2024 7:46 AM [facility] Blood Venous blood specimen / Unknown Venipuncture / Unknown 06/27/2024 6:23 AM EST 06/27/2024 6:47 AM EST Ignacia YIP LAB BLOOD ORDERABLES [facility] [address] [place] [address], * (ABNORMAL) RBC morphology review (06/26/2024 5:55 AM EST) Rbc Morphology Consistent with indices Consistent with indices, Normal for LAB HEMETOLOGY METHOD 06/26/2024 7:18 AM EST [facility] Platelet Morphology - WAM See Note(A) Normal LAB HEMETOLOGY METHOD 06/26/2024 7:18 AM EST [facility] Comment:PLT: Normal Blood Venous blood specimen / Unknown Venipuncture / Unknown 06/26/2024 5:55 AM EST 06/26/2024 6:16 AM EST Amber YIP LAB BLOOD ORDERABLES [facility] [address] [place] [address], * (ABNORMAL) CBC auto differential (06/26/2024 5:55 AM EST) WBC 12.7(H) 4.8 - 10.8 K/mcL LAB HEMETOLOGY METHOD 06/26/2024 7:18 AM [facility] RBC 3.90 3.80 - 4.80 M/mcL LAB HEMETOLOGY METHOD 06/26/2024 7:18 AM [facility] Hemoglobin 11.5 11.5 - 16.0 g/dL LAB HEMETOLOGY METHOD 06/26/2024 7:18 AM [facility] Hematocrit 33.5(L) 35.0 - 47.0 % LAB HEMETOLOGY METHOD 06/26/2024 7:18 AM [facility] MCV 86.8 79.0 - 98.0 FL LAB HEMETOLOGY METHOD 06/26/2024 7:18 AM [facility] MCH 29.8 27.0 - 32.0 pcg LAB HEMETOLOGY METHOD 06/26/2024 7:18 AM [facility] MCHC 34.3 32.0 - 37.0 g/dL LAB HEMETOLOGY METHOD 06/26/2024 7:18 AM [facility] RDW 15.0 11.0 - 15.0 % LAB HEMETOLOGY METHOD 06/26/2024 7:18 AM [facility] Platelets 210 130 - 400 K/mcL LAB HEMETOLOGY METHOD 06/26/2024 7:18 AM [facility] MPV 9.6 7.0 - 11.0 FL LAB HEMETOLOGY METHOD 06/26/2024 7:18 AM [facility] NRBC 0.0 <1.0 % LAB HEMETOLOGY METHOD 06/26/2024 7:18 AM [facility] NRBC Absolute 0.00 <0.10 K/mcL LAB HEMETOLOGY METHOD 06/26/2024 7:18 AM [facility] Neutrophils Relative 70.7 % LAB HEMETOLOGY METHOD 06/26/2024 7:18 AM [facility] Comment:This is an appended report. These results have been appended to a previously preliminary verified report. Lymphocytes Relative 11.0 % LAB HEMETOLOGY METHOD 06/26/2024 7:18 AM [facility] Comment:This is an appended report. These results have been appended to a previously preliminary verified report. Monocytes Relative 14.6 % LAB HEMETOLOGY METHOD 06/26/2024 7:18 AM [facility] Comment:This is an appended report. These results have been appended to a previously preliminary verified report. Eosinophils Relative 0.8 % LAB HEMETOLOGY METHOD 06/26/2024 7:18 AM [facility] Comment:This is an appended report. These results have been appended to a previously preliminary verified report. Basophils Relative 0.2 % LAB HEMETOLOGY METHOD 06/26/2024 7:18 AM [facility] Comment:This is an appended report. These results have been appended to a previously preliminary verified report. Immature Granulocytes Relative 2.7 % LAB HEMETOLOGY METHOD 06/26/2024 7:18 AM [facility] Comment:This is an appended report. These results have been appended to a previously preliminary verified report. Neutrophils Absolute 8.99(H) 1.50 - 7.00 K/mcL LAB HEMETOLOGY METHOD 06/26/2024 7:18 AM EST [facility] Comment:This is an appended report. These results have been appended to a previously preliminary verified report. Lymphocytes Absolute 1.40 1.00 - 5.00 K/[facility] LAB HEMETOLOGY METHOD 06/26/2024 7:18 AM EST [facility] Comment:This is an appended report. These results have been appended to a previously preliminary verified report. Monocytes Absolute 1.86(H) 0.20 - 1.00 K/[facility] LAB HEMETOLOGY METHOD 06/26/2024 7:18 AM EST [facility] Comment:This is an appended report. These results have been appended to a previously preliminary verified report. Eosinophils Absolute 0.10 0.00 - 0.50 K/[facility] LAB HEMETOLOGY METHOD 06/26/2024 7:18 AM EST [facility] Comment:This is an appended report. These results have been appended to a previously preliminary verified report. Basophils Absolute 0.03 0.00 - 0.20 K/[facility] LAB HEMETOLOGY METHOD 06/26/2024 7:18 AM EST [facility] Comment:This is an appended report. These results have been appended to a previously preliminary verified report. Immature Granulocytes Absolute 0.35(H) 0.00 - 0.03 K/[facility] LAB HEMETOLOGY METHOD 06/26/2024 7:18 AM EST [facility] Comment:This is an appended report. These results have been appended to a previously preliminary verified report. Blood Venous blood specimen / Unknown Venipuncture / Unknown 06/26/2024 5:55 AM EST 06/26/2024 6:16 AM EST Amber Ritchie PA LAB BLOOD ORDERABLES [facility] [address] [place] [address], * Prothrombin time with INR (06/26/2024 5:55 AM EST) [facility] Protime 10.9 10.6 - 13.9 sec LAB COAGULATION METHOD 06/26/2024 7:21 AM [facility] INR 0.9 LAB COAGULATION METHOD 06/26/2024 7:21 AM [facility] Blood Venous blood specimen / Unknown Venipuncture / Unknown 06/26/2024 5:55 AM EST 06/26/2024 6:16 AM EST Darline Lara DO LAB BLOOD ORDERAB LES [facility] [address] [place] [address], * (ABNORMAL) Comprehensive metabolic panel (06/26/2024 5:55 AM EST) [facility] Sodium 124(L) 133 - 145 mmol/L LAB CHEMISTRY METHOD 06/26/2024 7:59 AM [facility] Potassium 4.5 3.5 - 5.5 mmol/L LAB CHEMISTRY METHOD 06/26/2024 7:59 AM [facility] Chloride 88(L) 96 - 110 mmol/L LAB CHEMISTRY METHOD 06/26/2024 7:59 AM [facility] CO2 30 21 - 32 mmol/L LAB CHEMISTRY METHOD 06/26/2024 7:59 AM [facility] Anion Gap 6 3 - 11 LAB CHEMISTRY METHOD 06/26/2024 7:59 AM [facility] Glucose 89 70 - 100 mg/dL LAB CHEMISTRY METHOD 06/26/2024 7:59 AM [facility] BUN 27(H) 5 - 25 mg/dL LAB CHEMISTRY METHOD 06/26/2024 7:59 AM [facility] Comment:Results verified by repeat testing Creatinine 0.72 0.50 - 1.10 mg/dL LAB CHEMISTRY METHOD 06/26/2024 7:59 AM [facility] eGFR 92 >=60 mL/min/1. 73m2 LAB CHEMISTRY METHOD 06/26/2024 7:59 AM [facility] Comment:Calculation based on the??Chronic Kidney Disease Epidemiology Collaboration (CKD-EPI) equation refit??without adjustment for race. BUN/Creatinine Ratio 37.5 LAB CHEMISTRY METHOD 06/26/2024 7:59 AM [facility] Calcium 8.4(L) 8.5 - 10.5 mg/dL LAB CHEMISTRY METHOD 06/26/2024 7:59 AM [facility] AST (SGOT) 9(L) 10 - 42 unit/L LAB CHEMISTRY METHOD 06/26/2024 7:59 AM [facility] ALT (SGPT) 21 10 - 60 unit/L LAB CHEMISTRY METHOD 06/26/2024 7:59 AM [facility] Alkaline Phosphatase 79 42 - 121 unit/L LAB CHEMISTRY METHOD 06/26/2024 7:59 AM [facility] Total Protein 4.8(L) 6.0 - 8.0 g/dL LAB CHEMISTRY METHOD 06/26/2024 7:59 AM [facility] Albumin 2.4(L) 3.2 - 5.0 g/dL LAB CHEMISTRY METHOD 06/26/2024 7:59 AM [facility] Total Bilirubin 0.7 0.0 - 1.4 mg/dL LAB CHEMISTRY METHOD 06/26/2024 7:59 AM [facility] Blood Venous blood specimen / Unknown Venipuncture / Unknown 06/26/2024 5:55 AM EST 06/26/2024 6:16 AM EST Amber YIP LAB BLOOD ORDERABLES [facility] [address] [place] [address], documented in this encounter Visit Diagnoses Diagnosis Lower extremity weakness- Primary Lower extremity weakness Thoracic myelopathy Thoracic spinal stenosis Spinal stenosis of thoracic region Peripheral venous insufficiency Unspecified venous (peripheral) insufficiency Obstructive sleep apnea syndrome Obstructive sleep apnea (adult) (pediatric) Hypertension Unspecified essential hypertension Cervical spondylosis Cervical spondylosis without myelopathy Bradycardia Other specified cardiac dysrhythmias Anxiety Anxiety state, unspecified Atrial flutter (CMS/HCC) Atrial flutter Thoracic myelopathy documented in this encounter Admitting Diagnoses Diagnosis Lower extremity weakness documented in this encounter Administered Medications Inactive Administered Medications - up to 3 most recent administrations Medication Order MAR Action Action Date Dose Rate Site acetaminophen (TYLENOL) tablet 650 mg 650 mg, oral, Every 6 hours PRN, mild pain, headaches, Starting on Tue06/25/24 at 1939, For 142 hours Given 06/26/2024 3:08 PM EST 650 mg acetaminophen (TYLENOL) tablet 975 mg 975 mg, oral, Every 8 hours scheduled, First dose on Tue06/27/24 at 1400 Given 07/17/2024 2:04 PM EST 975 mg Given 07/17/2024 5:37 AM EST 975 mg Given 07/16/2024 8:36 PM EST 975 mg acyclovir (ZOVIRAX) 5 % ointment Topical, 3 times daily, First dose on Tue07/05/24 at 1100, For 5 days, Apply to cold sore Given 07/10/2024 8:50 AM EST Given 07/09/2024 10:16 PM EST Given 07/09/2024 10:41 AM EST albumin human 25 % infusion 25 g 25 g, intravenous, Once, On Tue06/27/24 at 0345, For 1 dose, FOR HYPOVOLEMIC SHOCK: Infuse 5% Albumin as rapidly as tolerated (500 mL over 1 - 2 hr) or (250 mL over 30 - 60 min), as blood volume approaches normal then infusion rate should not exceed 1 mL/min. Infusing too rapidly may cause vascular overload which may lead to pulmonary edema or cardiac failure. ROUTINE REPLACEMENT: (non-critical) Infuse 5% or 25% Albumin @ 100 mL/hr for routine albumin replacement in non-critical situations. Faster infusion rates are appropriate for hypovolemic shock (see above). ADMINISTRATION NOTE: A 15-micron filter is only required for Buminate; however, filters are NOT required for all other brands (Albuked, Albuminar, Albuminex, AlbuRx, Albutein, Flexbumin, Kedbumin, Plasbumin). Do not exceed 1 mL/minute in patients with normal plasma volume; 3 mL/minute in patients with hypoproteinemia., Indications: hypotension New Bag 06/27/2024 3:34 AM EST 25 g 100 mL/hr ALPRAZolam (XANAX) tablet 0.5 mg 0.5 mg, oral, Nightly PRN, anxiety, Starting on Tue06/25/24 at 1757, For 26 days Given 07/16/2024 8:32 PM EST 0.5 mg Given 07/15/2024 10:05 PM EST 0.5 mg Given 07/14/2024 10:03 PM EST 0.5 mg aluminum-magnesium hydroxide-simethicone (MAALOX) 200-200-20 mg/5 mL suspension 30 mL 30 mL, oral, Every 4 hours PRN, heartburn, Starting on Tue06/25/24 at 1752 Given 07/17/2024 12:21 PM EST 30 mL Given 07/14/2024 11:14 AM EST 30 mL Given 07/13/2024 9:38 PM EST 30 mL ascorbic acid (VITAMIN C) tablet 1,000 mg 1,000 mg, oral, Daily, First dose on Tue07/04/24 at 1330 Given 07/14/2024 10:59 AM EST 1,000 mg Given 07/13/2024 9:07 AM EST 1,000 mg Given 07/12/2024 9:55 AM EST 1,000 mg baclofen (LIORESAL) tablet 2.5 mg 2.5 mg, oral, 3 times daily, First dose (after last modification) on Tue07/11/24 at 1400, Hold for sedation or SBP less 100 Given 07/15/2024 10:01 AM EST 2.5 mg Given 07/14/2024 10:06 PM EST 2.5 mg Given 07/14/2024 2:59 PM EST 2.5 mg baclofen (LIORESAL) tablet 2.5 mg 2.5 mg, oral, 3 times daily, First dose (after last modification) on Tue07/15/24 at 1400, Hold for sedation or SBP less 100 Given 07/17/2024 2:04 PM EST 2.5 mg Given 07/17/2024 8:51 AM EST 2.5 mg Given 07/16/2024 8:33 PM EST 2.5 mg baclofen (LIORESAL) tablet 5 mg 5 mg, oral, 3 times daily, First dose on Tue07/10/24 at 1000, Hold for sedation or SBP less 100 Given 07/11/2024 8:48 AM EST 5 mg Given 07/10/2024 9:29 PM EST 5 mg Given 07/10/2024 2:31 PM EST 5 mg bisacodyL (DULCOLAX) suppository 10 mg 10 mg, rectal, Daily PRN, constipation, Starting on Tue06/25/24 at 1752, Second choice after milk of magnesia bisacodyL (DULCOLAX) suppository 10 mg 10 mg, rectal, Daily, First dose (after last modification) on Tue06/27/24 at 1800 Given 06/27/2024 5:01 PM EST 10 mg bisacodyL (DULCOLAX) suppository 10 mg 10 mg, rectal, Every 24 hours, First dose (after last modification) on [place]edad 06/28/24 at 1800 Given 07/16/2024 7:26 PM EST 10 mg Given 07/15/2024 7:19 PM EST 10 mg Given 07/14/2024 7:32 PM EST 10 mg cefuroxime (CEFTIN) tablet 250 mg 250 mg, oral, 2 times daily before meals, First dose on Tue07/03/24 at 1630, For 7 days, Indication: Urinary Tract/Genitourinary Given 07/04/2024 8:5 6 AM EST 250 mg Given 07/03/2024 4:48 PM EST 250 mg cefuroxime (CEFTIN) tablet 250 mg 250 mg, oral, 2 times daily, First dose (after last modification) on Tue07/04/24 at 2100, For 6 days, Indication: Urinary Tract/Genitourinary Given 07/07/2024 9:33 AM EST 250 mg Given 07/06/2024 9:47 PM EST 250 mg Given 07/06/2024 10:48 AM EST 250 mg cefuroxime (CEFTIN) tablet 250 mg 250 mg, oral, 2 times daily, First dose (after last modification) on Tue07/07/24 at 2100, For 9 days, Indication: Urinary Tract/Genitourinary Given 07/16/2024 9:34 AM EST 250 mg Given 07/15/2024 10:05 PM EST 250 mg Given 07/15/2024 9:55 AM EST 250 mg cholecalciferol (VITAMIN D-3) tablet 2,000 Units 2,000 Units, oral, Daily, First dose on Tue07/04/24 at 1330, 1000 units = 25 mcg of cholecalciferol (VITAMIN D3) Given 07/17/2024 8:50 AM EST 2,000 Units Given 07/16/2024 9:35 AM EST 2,000 Units Given 07/15/2024 9:55 AM EST 2,000 Units clotrimazole (LOTRIMIN) 1 % cream Topical, 2 times daily, First dose on Tue07/02/24 at 1000, For 14 days, Apply to affected area- groin and inner thigh Given 07/15/2024 10:06 PM EST 1 Application Given 07/15/2024 9:55 AM EST Given 07/14/2024 10:10 PM EST docusate sodium (COLACE) capsule 100 mg 100 mg, oral, 2 times daily, First dose on Tue06/25/24 at 2100 Given 06/27/2024 9:29 PM EST 100 mg Given 06/26/2024 9:28 AM EST 100 mg docusate sodium (COLACE) capsule 100 mg 100 mg, oral, 2 times daily PRN, constipation, Starting on Tue06/29/24 at 0900 Given 07/11/2024 11:57 AM EST 100 mg Given 07/06/2024 2:08 PM EST 100 mg doxepin (SINEquan) capsule 100 mg 100 mg, oral, Nightly, First dose on Tue06/25/24 at 2100 Given 07/16/2024 8:33 PM EST 100 mg Given 07/15/2024 10:04 PM EST 100 mg Given 07/14/2024 10:05 PM EST 100 mg DULoxetine (CYMBALTA) DR capsule 60 mg 60 mg, oral, Daily, First dose on Tue06/26/24 at 0900, Do not crush or chew. Given 07/17/2024 8:51 AM EST 60 mg Given 07/16/2024 9:35 AM EST 60 mg Given 07/15/2024 9:55 AM EST 60 mg enoxaparin (LOVENOX) injection 40 mg 40 mg, subcutaneous, Daily, First dose on Tue07/17/24 at 0900, Indication: VTE/PE Prophylaxis Given 07/17/2024 8:57 AM EST 40 mg Right Lower Abdomen famotidine (PEPCID) tablet 20 mg 20 mg, oral, Daily, First dose on Tue06/26/24 at 0900, For 340 days Given 07/07/2024 9:34 AM EST 20 mg Given 07/06/2024 10:48 AM EST 20 mg Given 07/05/2024 9:42 AM EST 20 mg ferrous sulfate tablet 325 mg 325 mg, oral, 2 times daily, First dose on Tue07/02/24 at 1200, Take on an empty stomach with a full glass of water, at least 1 hour before or 2 hours after a meal. May be taken with food if causes an upset stomach. Avoid taking antacids or antibiotics within 2 hours before or after. Ordered as ferrous sulfate. 325 mg ferrous sulfate = 65 mg elemental iron. Given 07/17/2024 8:58 AM EST 325 mg Given 07/16/2024 8:34 PM EST 325 mg Given 07/16/2024 9:34 AM EST 325 mg gabapentin (NEURONTIN) capsule 200 mg 200 mg, oral, Every 12 hours scheduled, First dose on Tue07/04/24 at 2100 Given 07/17/2024 8:51 AM EST 200 mg Given 07/16/2024 8:33 PM EST 200 mg Given 07/16/2024 9:35 AM EST 200 mg gabapentin (NEURONTIN) capsule 400 mg 400 mg, oral, Every 8 hours scheduled, First dose (after last modification) on Tue06/27/24 at 1400 Given 07/04/2024 5:04 AM EST 400 mg Given 07/03/2024 9:14 PM EST 400 mg Given 07/03/2024 1:59 PM EST 400 mg gabapentin (NEURONTIN) capsule 800 mg 800 mg, oral, 2 times daily, First dose on Tue06/25/24 at 2100 Given 06/26/2024 9:20 PM EST 800 mg Given 06/25/2024 9:20 PM EST 800 mg guaiFENesin (MUCINEX) 12 hr tablet 600 mg 600 mg, oral, Every 12 hours scheduled, First dose on Tue07/05/24 at 2100, Administer with plenty of fluids to ensure proper action. Do not crush, chew, or split. Given 07/14/2024 10:0 5 PM EST 600 mg Given 07/14/2024 11:00 AM EST 600 mg Given 07/13/2024 9:21 PM EST 600 mg heparin (UFH) injection 5,000 Units 5,000 Units, subcutaneous, Every 8 hours scheduled, First dose on Tue06/25/24 at 2200, For 16 days, Indications: Prophylaxis of Venous Thromboembolism Given 07/11/2024 2:55 PM EST 5,000 Units Left Lower Abdomen Given 07/11/2024 6:05 AM EST 5,000 Units R ight Lower Abdomen Given 07/10/2024 9:29 PM EST 5,000 Units L eft Upper Abdomen heparin (UFH) injection 5,000 Units 5,000 Units, subcutaneous, Every 8 hours scheduled, First dose (after last reorder) on Tue07/12/24 at 0600, For 30 days, Indications: Prophylaxis of Venous Thromboembolism Given 07/16/2024 5:54 AM EST 5,000 Units Right Lower Abdomen Given 07/15/2024 10:06 PM EST 5,000 Units Right Upper Abdomen Given 07/15/2024 2:07 PM EST 5,000 Units R ight Lower Abdomen heparin (UFH) injection 5,000 Units 5,000 Units, subcutaneous, Every 8 hours scheduled, First dose (after last modification) on Tue07/16/24 at 1400, For 2 doses, Indications: Prophylaxis of Venous Thromboembolism Given 07/16/2024 8:45 PM EST 5,000 Units Right Lower Abdomen Given 07/16/2024 2:03 PM EST 5,000 Units R ight Lower Abdomen hydrALAZINE (APRESOLINE) tablet 50 mg 50 mg, oral, 2 times daily, First dose (after last modification) on Tue06/26/24 at 2100, Hold if SBP less 100 Given 06/26/2024 9:20 PM EST 50 mg Lactobacillus acidoph-L.bulgar (FLORANEX) tablet 2 tablet 2 tablet, oral, 3 times daily with meals, First dose on Tue07/07/24 at 1230, Administer with water or milk during a meal. Given 07/17/2024 11:21 AM EST 2 tablets Given 07/17/2024 8:51 AM EST 2 tablets Given 07/16/2024 8:22 PM EST 2 tablets magnesium hydroxide (MILK OF MAGNESIA) 400 mg/5 mL suspension 30 mL 30 mL, oral, Daily PRN, constipation, Starting on Tue06/25/24 at 1752, First choice for constipation methylPREDNISolone (MEDROL) tablet 4 mg 4 mg, oral, Daily, First dose on Tue06/26/24 at 0900, For 5 days Given 06/30/2024 9:29 AM EST 4 mg Given 06/29/2024 8:57 AM EST 4 mg Given 06/28/2024 9:29 AM EST 4 mg metoprolol succinate (TOPROL-XL) 24 Hour tablet 25 mg 25 mg, oral, Daily, First dose on Tue06/26/24 at 0900, Hold if SBP less than 110 Do not crush or chew. Given 07/04/2024 8:56 AM EST 25 mg Given 07/03/2024 8:40 AM EST 25 mg Given 07/02/2024 8:24 AM EST 25 mg nicotine (NICODERM CQ) 7 mg/24 hr 1 patch 1 patch, transdermal, Administer over 24 Hours, Daily, First dose on Tue07/05/24 at 0900, Time to remove patch: 9:00 PM Patch Applied 07/17/2024 8:50 AM EST 1 patch Left Arm Patch Applied 07/15/2024 9:48 AM EST 1 patch Right Arm Patch Applied 07/14/2024 10:57 AM EST 1 patch Left Arm oxyCODONE (ROXICODONE) immediate release tablet 5 mg 5 mg, oral, Every 6 hours PRN, moderate pain, Starting on Tue06/25/24 at 1802 Given 06/27/2024 9:24 AM EST 5 mg Given 06/26/2024 9:19 PM EST 5 mg Given 06/26/2024 3:07 PM EST 5 mg oxyCODONE (ROXICODONE) immediate release tablet 5 mg 5 mg, oral, Every 6 hours PRN, moderate pain, severe pain, Starting on Tue06/27/24 at 1149 Given 07/16/2024 8:33 PM EST 5 mg Given 07/15/2024 10:05 PM EST 5 mg Given 07/15/2024 9:55 AM EST 5 mg pantoprazole (PROTONIX) EC tablet 40 mg 40 mg, oral, Every morning before breakfast, First dose on 07/08/24 at 0700, Do not crush, chew, or split. Given 07/15/2024 5:43 AM EST 40 mg Given 07/14/2024 5:33 AM EST 40 mg Given 07/13/2024 5:57 AM EST 40 mg pantoprazole (PROTONIX) EC tablet 40 mg 40 mg, oral, Daily before dinner, First dose (after last modification) on 07/15/24 at 1630, Do not crush, chew, or split. Given 07/16/2024 8:23 PM EST 40 mg Given 07/15/2024 4:39 PM EST 40 mg polyvinyl alcohol-povidone (PF) (ARTIFICIAL TEARS) 1.4-0.6 % ophthalmic solution 2 drop 2 drop, Both Eyes, 3 times daily, First dose (after last modification) on Tue07/06/24 at 2100 Given 07/17/2024 8:53 AM EST 2 drops Given 07/15/2024 10:06 PM EST 2 drops Given 07/14/2024 3:04 PM EST 2 drops senna (SENOKOT) tablet 17.2 mg 17.2 mg (2 tablet), oral, Nightly, First dose on Tue07/07/24 at 2100, For 20 days Given 07/07/2024 9:15 PM EST 17.2 mg sodium chloride 0.9 % bolus 500 mL 500 mL, intravenous, Once, On Tue06/26/24 at 0930, For 1 dose New Bag 06/26/2024 9:21 AM EST 500 mL sodium chloride 0.9 % bolus 500 mL 500 mL, intravenous, Once, On Tue06/27/24 at 1045, For 1 dose New Bag 06/27/2024 9:40 AM EST 500 mL 999 mL/hr sodium chloride 0.9 % flush 3 mL 3 mL, intravenous, 3 times daily, First dose on Tue06/27/24 at 0900 Given 06/28/2024 9:24 PM EST 3 mL Given 06/28/2024 2:09 PM EST 3 mL Given 06/28/2024 9:30 AM EST 3 mL sodium chloride 0.9 % flush 3 mL 3 mL, intravenous, Every 8 hours scheduled, First dose (after last modification) on Tue06/29/24 at 1400 Given 06/29/2024 9:50 PM EST 3 mL Given 06/29/2024 2:36 PM EST 3 mL sodium chloride 0.9 % infusion 75 mL/hr, intravenous, Continuous, Starting on Tue06/26/24 at 0930, For 16 hours Rate/Dose Verify 06/26/2024 10:00 PM EST 75 mL/hr 75 mL/hr Restarted 06/26/2024 9:05 PM EST 75 mL/hr 75 mL/hr Rate/Dose Verify 06/26/2024 5:00 PM EST 75 mL/hr 75 mL/h r sodium chloride 0.9 % infusion 75 mL/hr, intravenous, Continuous, Starting on Tue06/27/24 at 1200, Total 1 liter New Bag 06/27/2024 4:53 PM EST 75 mL/hr 75 mL/hr New Bag 06/27/2024 10:10 AM EST 75 mL/hr 75 mL/hr traZODone (DESYREL) tablet 75 mg 75 mg, oral, Nightly, First dose on Tue06/25/24 at 2100 Given 07/16/2024 8:34 PM EST 75 mg Given 07/15/2024 10:06 PM EST 75 mg Given 07/14/2024 10:04 PM EST 75 mg valsartan (DIOVAN) tablet 40 mg 40 mg, oral, Daily, First dose on Tue07/12/24 at 1300 Given 07/17/2024 8:50 AM EST 40 mg Given 07/16/2024 9:34 AM EST 40 mg Given 07/15/2024 9:55 AM EST 40 mg zinc sulfate (ZINCATE) capsule 220 mg 220 mg, oral, Daily, First dose on Tue07/04/24 at 1330, Ordered as zinc sulfate. 220 mg zinc sulfate = 50 mg elemental zinc. Given 07/14/2024 10:59 AM EST 220 mg Given 07/13/2024 9:05 AM EST 220 mg Given 07/12/2024 9:55 AM EST 220 mg documented in this encounter Discontinued Medications Medication Sig Discontinue Reason Start Date End Da te cevimeline (EVOXAC) 30 mg capsule Take 1 capsule (30 mg total) by mouth 3 (three) times a day. Formulary change 05/30/2024 06/25/2024 oxyCODONE (ROXICODONE) 5 mg immediate release tabletIndications:Thora cic myelopathy Take 1 tablet (5 mg total) by mouth every 6 (six) hours if needed for moderate pain. Max Daily Amount: 20 mg 06/21/2024 07/17/2024 triamterene-hydroCHLORO thiazide (DYAZIDE) 37.5-25 mg per capsule Take 1 capsule by mouth 1 (one) time each day. Stop Taking at Discharge 07/17/2024 tiZANidine (ZANAFLEX) 2 mg tablet Take 1 tablet (2 mg total) by mouth 1 (one) time each day. Stop Taking at Discharge 07/17/2024 gabapentin (NEURONTIN) 800 mg tablet Take 1 tablet (800 mg total) by mouth 2 (two) times a day. Stop Taking at Discharge 07/17/2024 valsartan (DIOVAN) 320 mg tablet Take 1 tablet (320 mg total) by mouth 1 (one) time each day. Stop Taking at Discharge 03/22/2024 07/17/2024 metoprolol tartrate (LOPRESSOR) 25 mg tablet Take 1 tablet (25 mg total) by mouth 1 (one) time each day. Stop Taking at Discharge 11/13/2013 07/17/2024 senna-docusate (PERICOLACE) 8.6-50 mg per tablet Take 1 tablet by mouth at bedtime. Stop Taking at Discharge 05/25/2024 07/17/2024 famotidine (PEPCID) 20 mg tablet Take 1 tablet (20 mg total) by mouth 1 (one) time each day. Stop Taking at Discharge 05/31/2024 07/17/2024 heparin sodium,porcine (heparin, UFH,) 5,000 unit/mL injectionIndications:Pr ophylaxis of Venous Thromboembolism Inject 1 mL (5,000 Units total) under the skin every 8 (eight) hours for 20 days. Stop Taking at Discharge 06/21/2024 07/17/2024 acetaminophen (TYLENOL) 325 mg tablet Take 2 tablets (650 mg total) by mouth every 6 (six) hours if needed for mild pain, moderate pain or headaches for up to 10 days. Stop Taking at Discharge 06/21/2024 07/17/2024 hydrALAZINE (APRESOLINE) 50 mg tablet Take 1.5 tablets (75 mg total) by mouth 2 (two) times a day. Stop Taking at Discharge 06/23/2024 07/17/2024 methylPREDNISolone (MEDROL DOSPAK) 4 mg tablet Take 1 tablet (4 mg total) by mouth See administration instructions for 6 days. Use as directed by package instructions Stop Taking at Discharge 06/23/2024 07/17/2024 documented as of this encounter Active and Recently Administered Medications Times are shown in EST. Scheduled Medication Order 07/15/2024 07/16/2024 07/17/2024 acetaminophen (TYLENOL) tablet 975 mg 975 mg, oral, Every 8 hours scheduled, First dose on Tue06/27/24 at 1400 0542 (Given - Provider: She Vigil RN)1407 (Given - Provider: Vanita Melo RN)2205 (Given - Provider: Socorro Polanco RN) 0553 (Given - Provider: She Vigil RN)1403 (Given - Provider: Raphael Hamm RN)203 (Given - Provider: Tino Brooks RN) 0537 (Given - Provider: Mishel Dominguez RN)1404 (Given - Provider: Mishel Dominguez RN) baclofen (LIORESAL) tablet 2.5 mg (CANCELED) 2.5 mg, oral, 3 times daily, First dose (after last modification) on Tue07/11/24 at 1400, Hold for sedation or SBP less 100 1001 (Given - Provider: Vanita Melo RN) baclofen (LIORESAL) tablet 2.5 mg 2.5 mg, oral, 3 times daily, First dose (after last modification) on Tue07/15/24 at 1400, Hold for sedation or SBP less 100 1407 (Given - Provider: Vanita Melo RN)220 (Given - Provider: Socorro Polanco RN) 0935 (Given - Provider: Raphael Hamm RN)1404 (Given - Provider: Raphael Hamm RN)2032 (Given - Provider: Tino Brooks RN) 0851 (Given - Provider: Mishel Dominguez RN)1404 (Given - Provider: Mishel Dominguez RN) bisacodyL (DULCOLAX) suppository 10 mg 10 mg, rectal, Every 24 hours, First dose (after last modification) on [place]ed[place] 06/28/24 at 1800 1919 (Given - Provider: Socorro Polanco RN) 1926 (Given - Provider: Tino Brooks RN) cefuroxime (CEFTIN) tablet 250 mg (COMPLETED) 250 mg, oral, 2 times daily, First dose (after last modification) on Tue07/07/24 at 2100, For 9 days, Indication: Urinary Tract/Genitourinary 0955 (Given - Provider: Vanita Melo RN)220 (Given - Provider: Socorro Polanco RN) 0934 (Given - Provider: Raphael Hamm RN) cholecalciferol (VITAMIN D-3) tablet 2,000 Units 2,000 Units, oral, Daily, First dose on Tue07/04/24 at 1330, 1000 units = 25 mcg of cholecalciferol (VITAMIN D3) 0955 (Given - Provider: Vanita Melo RN) 0935 (Given - Provider: Raphael Hamm RN) 0850 (Given - Provider: Mishel Dominguez RN) clotrimazole (LOTRIMIN) 1 % cream () Topical, 2 times daily, First dose on Tue07/02/24 at 1000, For 14 days, Apply to affected area- groin and inner thigh 0955 (Given - Provider: Vanita Melo RN)220 (Given - Provider: Socorro Polanco RN) doxepin (SINEquan) capsule 100 mg 100 mg, oral, Nightly, First dose on Tue06/25/24 at 2100 2204 (Given - Provider: Socorro Polanco RN) 2032 (Given - Provider: Tino Brooks RN) DULoxetine (CYMBALTA) DR capsule 60 mg 60 mg, oral, Daily, First dose on Tue06/26/24 at 0900, Do not crush or chew. 0955 (Given - Provider: Vanita Melo RN) 0935 (Given - Provider: Raphael Hamm RN) 0851 (Given - Provider: Mishel Dominguez RN) enoxaparin (LOVENOX) injection 40 mg 40 mg, subcutaneous, Daily, First dose on Tue07/17/24 at 0900, Indication: VTE/PE Prophylaxis 0857 (Given - Provider: Mishel Dominguez RN) ferrous sulfate tablet 325 mg 325 mg, oral, 2 times daily, First dose on Tue07/02/24 at 1200, Take on an empty stomach with a full glass of water, at least 1 hour before or 2 hours after a meal. May be taken with food if causes an upset stomach. Avoid taking antacids or antibiotics within 2 hours before or after. Ordered as ferrous sulfate. 325 mg ferrous sulfate = 65 mg elemental iron. 0955 (Given - Provider: Vanita Melo RN)220 (Given - Provider: Socorro Polanco RN) 0934 (Given - Provider: Raphael Hamm RN)2033 (Given - Provider: Tino Brooks RN) 0858 (Given - Provider: Mishel Dominguez RN) gabapentin (NEURONTIN) capsule 200 mg 200 mg, oral, Every 12 hours scheduled, First dose on Tue07/04/24 at 2100 0954 (Given - Provider: Vanita Melo RN)220 (Given - Provider: Socorro Polanco RN) 0935 (Given - Provider: Raphael Hamm RN)2032 (Given - Provider: Tino Brooks RN) 0851 (Given - Provider: Mishel Dominguez RN) heparin (UFH) injection 5,000 Units (CANCELED) 5,000 Units, subcutaneous, Every 8 hours scheduled, First dose (after last reorder) on Tue07/12/24 at 0600, For 30 days, Indications: Prophylaxis of Venous Thromboembolism 0543 (Given - Provider: She Vigil, CRISTIANA)1407 (Given - Provider: Vanita Melo RN)220 (Given - Provider: Socorro Polanco RN) 0554 (Given - Provider: She Vigil RN) heparin (UFH) injection 5,000 Units (COMPLETED) 5,000 Units, subcutaneous, Every 8 hours scheduled, First dose (after last modification) on Tue07/16/24 at 1400, For 2 doses, Indications: Prophylaxis of Venous Thromboembolism 1403 (Given - Provider: Raphael Hamm RN)2044 (Given - Provider: Tino Brooks, CRISTIANA) Lactobacillus acidoph-L.bulgar (FLORANEX) tablet 2 tablet 2 tablet, oral, 3 times daily with meals, First dose on 07/07/24 at 1230, Administer with water or milk during a meal. 0949 (Given - Provider: Vanita Melo RN)1233 (Given - Provider: Vanita Melo RN)1639 (Given - Provider: Socorro Polanco RN) 0935 (Given - Provider: Raphael Hamm RN)1208 (Given - Provider: Raphael Hamm RN)202 (Given - Provider: Nusrat Rolon RN) 0851 (Given - Provider: Mishel Dominguez RN)1121 (Given - Provider: Mishel Dominguez RN)1700 (Canceled Entry - Provider: Automatic Discharge Provider - Comment: Automatically canceled at discontinue of medication order) nicotine (NICODERM CQ) 7 mg/24 hr 1 patch 1 patch, transdermal, Administer over 24 Hours, Daily, First dose on Soledad 07/05/24 at 0900, Time to remove patch: 9:00 PM 0948 (Patch Applied - Provider: Vanita Melo RN)2207 (Patch Removed - Provider: Socorro Polanco RN) 0934 (Not Given - Provider: Raphael Hamm RN - Reason: Patient/Resident/Ag ent refused - education provided ) 0850 (Patch Applied - Provider: Mishel Dominguez RN)1552 (Due: Patch Removed - Provider: Automatic Discharge Provider - Comment: Time automatically adjusted from order being discontinued) pantoprazole (PROTONIX) EC tablet 40 mg (CANCELED) 40 mg, oral, Every morning before breakfast, First dose on 07/08/24 at 0700, Do not crush, chew, or split. 0543 (Given - Provider: She Vigil RN) pantoprazole (PROTONIX) EC tablet 40 mg 40 mg, oral, Daily before dinner, First dose (after last modification) on 07/15/24 at 1630, Do not crush, chew, or split. 1639 (Given - Provider: Socorro Polanco RN) 2022 (Given - Provider: Nusrat Rolon RN) 1630 (Canceled Entry - Provider: Automatic Discharge Provider - Comment: Automatically canceled at discontinue of medication order) polyvinyl alcohol-povidone (PF) (ARTIFICIAL TEARS) 1.4-0.6 % ophthalmic solution 2 drop 2 drop, Both Eyes, 3 times daily, First dose (after last modification) on Tue07/06/24 at 2100 1000 (Not Given - Provider: Vanita Melo RN - Reason: Patient/Resident/Ag ent refused - education provided )1434 (Not Given - Provider: Vanita Melo RN - Reason: Patient/Resident/Ag ent refused - education provided )220 (Given - Provider: Socorro Polanco RN) 0934 (Not Given - Provider: Raphael Hamm RN - Reason: Patient/Resident/Ag ent refused - education provided )1407 (Not Given - Provider: Raphael Hamm RN - Reason: Patient/Resident/Ag ent refused - education provided )2033 (Return to [facility] - Provider: Tino Brooks RN) 0853 (Given - Provider: Mishel Dominguez RN)1431 (Not Given - Provider: Mishel Dominguez RN - Reason: Patient/Resident/Agent refused - education provided ) traZODone (DESYREL) tablet 75 mg 75 mg, oral, Nightly, First dose on Tue06/25/24 at 2100 2206 (Given - Provider: Socorro Polanco RN) 2033 (Given - Provider: Tino Brooks, CRISTIANA) valsartan (DIOVAN) tablet 40 mg 40 mg, oral, Daily, First dose on Tue07/12/24 at 1300 0955 (Given - Provider: Vanita Melo RN) 0934 (Given - Provider: Raphael Hamm RN) 0850 (Given - Provider: Mishel Dominguez RN) PRN Medication Order 07/15/2024 07/16/2024 07/17/2024 ALPRAZolam (XANAX) tablet 0.5 mg 0.5 mg, oral, Nightly PRN, anxiety, Starting on Tue06/25/24 at 1757, For 26 days 2204 (Given - Provider: Socorro Polanco RN) 2031 (Given - Provider: Tino Brooks RN) aluminum-magnesium hydroxide-simethicone (MAALOX) 200-200-20 mg/5 mL suspension 30 mL 30 mL, oral, Every 4 hours PRN, heartburn, Starting on Tue06/25/24 at 1752 1221 (Given - Provider: Mishel Dominguez RN) bisacodyL (DULCOLAX) suppository 10 mg 10 mg, rectal, Daily PRN, constipation, Starting on Tue06/25/24 at 1752, Second choice after milk of magnesia docusate sodium (COLACE) capsule 100 mg 100 mg, oral, 2 times daily PRN, constipation, Starting on Tue06/29/24 at 0900 magnesium hydroxide (MILK OF MAGNESIA) 400 mg/5 mL suspension 30 mL 30 mL, oral, Daily PRN, constipation, Starting on Tue06/25/24 at 1752, First choice for constipation oxyCODONE (ROXICODONE) immediate release tablet 5 mg 5 mg, oral, Every 6 hours PRN, moderate pain, severe pain, Starting on Tue06/27/24 at 1149 0955 (Given - Provider: Vanita Melo RN)5 (Given - Provider: Socorro Polanco RN) 2032 (Given - Provider: Tino Brooks RN) documented in this encounter Orders Medications Ordered That Amor ht Not Have Been Administered Count Last Ordered Date First Ordered Date baclofen (LIORESAL) tablet 5 mg 1 bisacodyL (DULCOLAX) suppository 10 mg 3 06/25/2024 polyvinyl alcohol-povidone ( PF) (ARTIFICIAL TEARS) 1.4-0.6 % ophthalmic solution 2 drop 1 07/02/2024 sodium chloride 0.9 % infusion 1 06/27/2024 sodium chloride 0.9 % bolus 250 mL 1 2024 acetaminophen (TYLENOL) tablet 650 mg 2 11/2024 hydrALAZINE (APRESOLINE) tablet 75 mg 1 11/2024 magnesium hydroxide (MILK OF MAGNESIA) 400 mg/5 mL suspension 30 mL 1 06/25/2024 metoprolol tartrate (LOPRESS OR) tablet 25 mg 1 06/25/2024 senna (SENOKOT) tablet 17.2 mg 1 06/25/2024 senna-docusate (PERICOLACE) 8.6-50 mg per tablet 1 tablet 1 06/25/2024 tiZANidine (ZANAFLEX) tablet 2 mg 1 025 triamterene-hydroCHLOROthiaz sharifa (DYAZIDE) 37.5-25 mg per capsule 1 capsule 1 06/25/2024 valsartan (DIOVAN) tablet 320 mg 1 06/25/19 25 Consult Count Last Ordered Date First Orde red Date WOUND OSTOMY EVAL AND TREAT 1 07/11/2024 IP CONSULT TO NUTRITION SERVICES 1 06/26/19 25 Admission Count Last Ordered Date First Orde red Date ADMIT TO INPATIENT REHAB 1 06/25/2024 Discharge Count Last Ordered Date First Orde red Date DISCHARGE PATIENT 1 07/17/2024 documented in this encounter Additional Health Concerns Infection Onset Date Last Indicated Resolved Time Respiratory Rule-Out 07/04/2024 07/04/2024 025 12:28 PM EST COVID-19 07/04/2024 07/04/2024 Assessment Noted Time PHQ-9 Depression Total Score: 1 07/17/19 2:05 PM EST documented as of this encounter Care Teams Optical Element Coater Relationship Specialty Start Date End Date Solis Roman MD [facility] [place] [address] PCP - General Internal Medicine 06/27/24 documented as of this encounter
[2024-07-24 07:42] LABS: B Type Natriuretic Peptide 802 pg/mL (<100)
--- OUTSIDE RECORDS SUMMARY | 2024-07-24 07:42 | XMS_ITS | Encounter Summary ---
Author Organization [facility] Address [address] [place] [address] Care Team Providers Care Front End Assistant Name Role Phone Solis Roman MD Primary Care Provider [phone] Encounter Details Date Type Department Care Team (Late st Contact Info) Description 07/11/2024 Plan of Care Documentation [facility] [address] [place] [id number] Social History Tobacco Use Types Packs/Day Years Used Date Smoking Tobacco: Former Cigarettes Q uit: 05/2024 Passive Smoke Exposure: Never Smokeless Tobacco: Never Alcohol Use Standard Drinks/Week Comments Not Currently 0 (1 standard drink = 0.6 oz pur e alcohol) occasionally Health Literacy Answer Date Recorded How often do you need to hav e someone help you when you read instructions, pamphlets, or other written material from your doctor or pharmacy? Always 06/26/2024 Caregiver: How often do you need to have someone help you when you read instructions, pamphlets, or other written material from your doctor or pharmacy? Not on file 06/26/2024 Transportation Answer Date Recorded Has the lack of transportati on kept you from meetings, work, or from getting things needed for daily living? No Has the lack of transportati on kept you from medical appointments or from getting medications? No 06/26/2024 Social Isolation Answer Date Recorded How often do you feel lonely or isolated from th ose around you? Rarely 06/26/2024 Interpersonal Safety Answer Date Record ed Physical Abuse 06/25/2024 Verbal Abuse 06/25/2024 Sex and Gender Information Value Date Recorded Sex Assigned at Female 05/24/2024 10:26 AM EST Gender Identity Female 05/24/2024 10:26 AM EST Sexual Orientation Straight 05/24/2024 10 :26 AM EST Job Start Date Occupation Industry Not on file Not on file Not on file documented as of this encounter Progress Notes * Milagros Epstein, OT - 07/11/2024 11:27 AM EST Physical Medicine and Rehabilitation Team Conference Interdisciplinary Team Meeting Patient Name: Yuly Montoya Date of : 1955 Sex: Female Payor Info: Payor: UNICARE / Plan: [employer]ARE PPO / Product Type: *No Product type* / Admitting Diagnosis: Lower extremity weakness [R29.898] Admit Date/Time: 06/25/2024 4:55 PM Primary Rehab (Etiologic) Diagnosis: Patient Active Problem [...] adenoidectomy Bradycardia Thoracic myelopathy Lower extremity weakness Team Discussion UPDATES: Physician: 68 year old female hx of hypertension, atrial flutter, 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 Surgery done by Dr. 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 She had a short stay in the ICU there and was then transferred to the floor and then to us for PT/OT and nursing care. Bowel program starting today. Fluids, cyr. BP soft. 07/04- very tired today, chronic hypotension with SCI, UTI, decreased gabapentin. Cyr will be put back in. Bowels cont suppository. 07/11- Covid+ on 07/04 on isolation precautions RN: Interrupted sleep over night. Oxy for pain. BM post suppository. New wound on coccyx. Wound consult. Valentin wraps in AM. OT: Max cues for sitting balance. Small gains in dressing. Memory is a barrier with carryover. PT: Trialing SB transfers. Max A X 2 from air mattress. Requires UE support for balance, limited ability to participate in SB transfer. Trunk control a barrier. SW: Can be weepy in conversations. Is frustrated with progress and transitioning to next level of care. CM: Patient has limited support upon DC. Ongoing bed search but limited d/t covid+ and insurance. Will continue to work on transitioning. Jessica is following. Expected Discharge Date: 07/17/2024 Risk Adjusted Scores: OT Current: 24 OT Goal: 34 (10) +17 PT Current: 30 PT Goal: 49 (19) +13 Follow-up Services: SNF physical therapy, occupational therapy, manager social responsibility, database reporting consultant, and nursing daily Equipment Needed: other To be determined at next level of care Barriers to Achieving Rehab Goals: Limited community support, SCI, covid+ Occupational Therapy Assessment Overall Cognitive Status Overall Cognitive Status: Within Functional Limits Precautions Precautions Medical Precautions: Fall Risk Safety Interventions: Call doss within reach, Bed alarm RUE Weight Bearing Status: Full LUE Weight Bearing Status: Full RLE Weight Bearing Status: Full LLE Weight Bearing Status: Full Orthopedic Precautions: Back Precautions ADL Assessment Eating Assistance Needed: Independent CARE Score - Eatin Oral Hygiene Assistance Needed: Set-up / clean-up CARE Score - Oral Hygiene: 5 Toileting Hygiene Assistance Needed: Physical assistance Physical Assistance Level: 76% or more Comment: bed level CARE Score - Toileting Hygiene: 2 Shower/Bathe Self Assistance Needed: Physical assistance Physical Assistance Level: 26%-50% Comment: bed level CARE Score - Shower/Bathe Self: 3 Upper Body Dressing Assistance Needed: Incidental touching Physical Assistance Level: 26%-50% Comment: bed level CARE Score - Upper Body Dressin Lower Body Dressing Assistance Needed: Physical assistance Physical Assistance Level: 26%-50% Comment: bed level CARE Score - Lower Body Dressin Putting On/Taking Off Footwear Assistance Needed: Physical assistance Physical Assistance Level: Total assistance Comment: bed level CARE Score - Putting On/Taking Off Footwear: 1 Functional Transfers Toilet Transfer Assistance Needed: Physical assistance Physical Assistance Level: Total assistance Comment: [facility] CARE Score - Toilet Transfer: 1 OT Assessment Results: OT Assessment Results: Decreased ADL status, Decreased endurance, Decreased sensation, Visual deficit, Decreased trunk control for functional activities, Impaired tone Evaluation/Treatment Tolerance: Evaluation/Treatment Tolerance: Patient tolerated treatment well Comments: Comments: Pt demo decreased unsupported sitting balance on this date with 1 UE support inshower with increased R lateral lean. Pt reporting increased fatigue. Pt able to sit in unsupportedlong with 1 UE support while completing grooming tasks in bed on this date. Plan Treatment/Interventions: Treatment Interventions: ADL retraining, Functional transfer training, UE strengthening/ROM, Endurance training, Equipment evaluation/education, Compensatory technique education, Continued evaluation OT Plan: OT Plan: Skilled OT Discharge Recommendations: Equipment Recommended: Equipment Recommended: (TBD) Barriers to Discharge: Barriers to Discharge: environemntal concerns, functional status, pt lives alone. Physical Therapy Assessment Bed Mobility Roll Left and Right Assistance Needed: Physical assistance Physical Assistance Level: 25% or less Comment: bedrails CARE Score - Roll Left and Right: 3 Sit to Lying Assistance Needed: Physical assistance Physical Assistance Level: Total assistance CARE Score - Sit to Lyin Lying to Sitting on Side of Bed Assistance Needed: Physical assistance Physical Assistance Level: 76% or more CARE Score - Lying to Sitting on Side of Bed: 2 Transfers Sit to Stand Reason if not Attempted: Medical concerns CARE Score - Sit to Stand: 88 Chair/Kfd-sz-Wzjgw Transfer Assistance Needed: Physical assistance Physical Assistance Level: Total assistance Comment: slideboard CARE Score - Chair/Ivg-cx-Thftu Transfer: 1 Car Transfer Reason if not Attempted: Safety concerns CARE Score - Car Transfer: 88 Picking Up Object Reason if not Attempted: Medical concerns CARE Score - Picking Up Object: 88 Wheelchair Wheel 50 Feet with Two Turns Assistance Needed: Supervision Physical Assistance Level: No physical assistance CARE Score - Wheel 50 Feet with Two Turns: 4 Type of Wheelchair/Scooter: Manual Wheel 150 Feet Assistance Needed: Supervision Physical Assistance Level: No physical assistance CARE Score - Wheel 150 Feet: 4 Type of Wheelchair/Scooter: Manual Ambulation Walk 10 Feet Reason if not [...] Walking 10 Feet on Uneven Surfaces: 88 Stairs/Curb step 1 Step (Curb) Reason if not Attempted: Medical concerns CARE Score - 1 Step (Curb): 88 4 Steps Reason if not Attempted: Medical concerns CARE Score - 4 Steps: 88 12 Steps Reason if not Attempted: Medical concerns CARE Score - 12 Steps: 88 Precautions Precautions Medical Precautions: Fall Risk Safety Interventions: Call doss within reach, Bed alarm RUE Weight Bearing Status: Full LUE Weight Bearing Status: Full RLE Weight Bearing Status: Full LLE Weight Bearing Status: Full Orthopedic Precautions: Back Precautions PT Assessment Results: Orthopedic Precautions: Back Precautions Evaluation/Treatment Tolerance: Evaluation/Treatment Tolerance: Patient limited by pain Comments: Comments: Pt having difficulty completing slideboard transfers from airbed due to unstable surface, doing better from wc <> recliner. Pt tolerating sitting up in recliner at end of session. Plan Treatment/Interventions: Treatment/Interventions: Functional transfer training, LE strengthening/ROM, Patient/family training, Bed mobility, Balance training, Gait training PT Plan: PT Plan: Skilled PT Discharge Recommendations: PT Discharge Recommendations: (TBD) Equipment Recommended: Equipment Recommended: TBD Barriers to Discharge: Nurse's Assessment Fall Risk Assessment Last Known Fall: No falls Mobility: Use of assistive device/requires assist of two people ToiletingNeeds: Use of catheters or diversion devices Mental Status/LOC/Awareness: Awake, alert, and oriented to date, place, and person Communication/Sensory: Visual (Glasses)/hearing deficit Behavior: Appropriate behavior Medications: Cardiovascular and central nervous system meds Volume/Electrolyte Status: No problems Rosalind Beltran Fall Risk Total: 10 Skin Assessment Sensory Perceptions: Very limited Moisture: Occasionally moist Activity: Chairfast Mobility: Slightly limited Nutrition: Adequate Friction and Shear: Potential problem Felipe Scale Score: 15 Pain Assessment Pain Assessment: 0-10 Pain Score: 4 FACES Pain Scale - Revised: 6 Pain Type: Acute pain Pain Location: Back Pain Orientation: Lower Pain Descriptors: Aching Pain Frequency: Constant/continuous Pain Onset: Ongoing Clinical Progression: Gradually worsening Effect of Pain on Daily Activities: sleep Patient's Pain Goal: No pain Pain Interventions: Medication (See MAR), Repositioned Bowel Management Bowel Program/Regime: Bowel Continence Status: Continent movement Last BM Date: 07/10/24 Bladder Management Bladder Scan Protocol: Bladder Continence Status: Non-stress incontinence Toileting Equipment Operation Instructor's Assessment Adult diet [facility]; General; Regular Assessment Diet Experience Previous Diet / Nutrition Education / Counseling: Pt reports good appetite and PO intake at home. Usually eats 2 meals per day. Recently has been trying to follow a calorie controlled diet at home (5112-1242 kcal/day). States weight has been stable at ~190 lb. No reported food allergies. Appetite HCC CODERS: Good Intake HCC CODERS: Stable Nutrition Diagnosis Status: New Diagnosis: No Acute Nutrition Dx Nutrition Interventions: Diet Order Monitoring/Evaluation: Fluid/Beverage Intake, Food Intake, Weight, Diet Order, Gastrointestinal Profile Physician Attestation: IDarline, DO, have led the team conference and agree with the results, findings, and decisions made by the interdisciplinary team. documented in this encounter Plan of Treatment Upcoming Encounters Date Type Department Care Team (Late st Contact Info) Description 08/06/2024 1:00 PM EST Office Visit Neurosurgery - [address] [place] [address] [facility] [address] [place] [id number] documented as of this encounter Visit Diagnoses Not on filedocumented in this encounter Additional Health Concerns Infection Onset Date Last Indicated Resolved Time COVID-19 07/04/2024 07/04/2024 Assessment Noted Time PHQ-9 Depression Total Score: 1 06/26/19 12:14 PM EST documented as of this encounter Care Teams Front End Assistant Relationship Specialty Start Date End Date Solis Roman MD [address] [place] [address] PCP - General Internal Medicine 06/27/24 documented as of this encounter
--- OUTSIDE RECORDS SUMMARY | 2024-07-24 07:42 | XMS_ITS | Encounter Summary ---
Author Organization [facility] Address [address] [place] [address] Care Team Providers Care Jack Winder Name Role Phone Solis Roman MD Primary Care Provider [phone] Encounter Details Date Type Department Care Team (Late st Contact Info) Description 07/23/2024 Lab Requisition [facility] - Main Lab [address] [facility] [place] [address] Luis Rivas PA [address] [place] [phone] Dehydration; Anemia, unspecified Social History Tobacco Use Types Packs/Day Years [...] on file documented as of this encounter Plan of Treatment Upcoming Encounters Date Type Department Care Team (Late st Contact Info) Description 08/06/2024 1:00 PM EST Office Visit Neurosurgery - [address] [place] [phone] Ramirez Hall MD [address] [place], [place] [phone] documented as of this encounter Procedures Procedure Name Priority Date/Time Associated Diagnosis Comments COMPLETE BLOOD COUNT Routine 07/23/2024 8:12 AM EST Dehydration Anemia, unspecified ALANINE AMINOTRANSFERASE Routine 8:12 AM EST Dehydration Anemia, unspecified ASPARTATE AMINOTRANSFERASE Routine 07/23/2024 8:12 AM EST Dehydration Anemia, unspecified PROTEIN, TOTAL Routine 07/23/2024 8:12 AM EST Dehydration Anemia, unspecified ALKALINE PHOSPHATASE Routine 07/23/2024 8:12 AM EST Dehydration Anemia, unspecified BILIRUBIN, TOTAL Routine 07/23/2024 8:12 AM EST Dehydration Anemia, unspecified ALBUMIN Routine 07/23/2024 8:12 AM EST Dehydration Anemia, unspecified BASIC METABOLIC PANEL Routine 07/23/2024 8:12 AM EST Dehydration Anemia, unspecified documented in this encounter Results * (ABNORMAL) Protein, total (07/23/2024 8:12 AM EST) Total Protein 4.9(L) 6.0 - 8.0 g/dL LAB CHEMISTRY METHOD 07/23/2024 5:47 PM EST [facility] Blood Venous blood specimen / Unknown Venipuncture / Unknown 07/23/2024 8:12 AM EST 07/23/2024 9:41 AM EST Luis YIP LAB BLOOD ORDERABLES Performing Organization Address City/[facility]/ZIP Co de Phone Number [facility] [address] [place] [address], [place] [phone] * (ABNORMAL) Alanine aminotransferase (07/23/2024 8:12 AM EST) ALT (SGPT) 335(H) 10 - 60 unit/L LAB CHEMISTRY METHOD 07/23/2024 5:47 PM EST [facility] Blood Venous blood specimen / Unknown Venipuncture / Unknown 07/23/2024 8:12 AM EST 07/23/2024 9:41 AM EST Luis YIP LAB BLOOD ORDERABLES Performing Organization Address [facility] Co de Phone Number [facility] [address] [place] [address], [place] [phone] * (ABNORMAL) Aspartate aminotransferase (07/23/2024 8:12 AM EST) AST (SGOT) 133(H) 10 - 42 unit/L LAB CHEMISTRY METHOD 07/23/2024 5:47 PM EST [facility] Blood Venous blood specimen / Unknown Venipuncture / Unknown 07/23/2024 8:12 AM EST 07/23/2024 9:41 AM EST Luis YIP LAB BLOOD ORDERABLES Performing Organization Address City/[facility]/ZIP Co de Phone Number [facility] [address] [place] [address], [place] [phone] * Bilirubin, total (07/23/2024 8:12 AM EST) Total Bilirubin 0.6 0.0 - 1.4 mg/dL LAB CHEMISTRY METHOD 07/23/2024 5:47 PM EST [facility] Blood Venous blood specimen / Unknown Venipuncture / Unknown 07/23/2024 8:12 AM EST 07/23/2024 9:41 AM EST Luis YIP LAB BLOOD ORDERABLES Performing Organization Address City/[facility]/ZIP Co de Phone Number [facility] [address] [place] [address], * (ABNORMAL) Alkaline phosphatase (07/23/2024 8:12 AM EST) Alkaline Phosphatase 187(H) 42 - 121 unit/L LAB CHEMISTRY METHOD 07/23/2024 5:47 PM EST [facility] Blood Venous blood specimen / Unknown Venipuncture / Unknown 07/23/2024 8:12 AM EST 07/23/2024 9:41 AM EST Luis YIP LAB BLOOD ORDERABLES Performing Organization Address [facility] Co de Phone Number [facility] [address] [place] [address], [place] [phone] * (ABNORMAL) Albumin (07/23/2024 8:12 AM EST) Albumin 2.2(L) 3.2 - 5.0 g/dL LAB CHEMISTRY METHOD 07/23/2024 5:47 PM EST [facility] Blood Venous blood specimen / Unknown Venipuncture / Unknown 07/23/2024 8:12 AM EST 07/23/2024 9:41 AM EST Luis YIP LAB BLOOD ORDERABLES [facility] [address] [place] [address], * (ABNORMAL) Basic metabolic panel (07/23/2024 8:12 AM EST) Sodium 132(L) 133 - 145 mmol/L LAB CHEMISTRY METHOD 07/23/2024 11:23 AM [facility] Potassium 4.5 3.5 - 5.5 mmol/L LAB CHEMISTRY METHOD 07/23/2024 11:23 AM [facility] Chloride 96 96 - 110 mmol/L LAB CHEMISTRY METHOD 07/23/2024 11:23 AM [facility] CO2 25 21 - 32 mmol/L LAB CHEMISTRY METHOD 07/23/2024 11:23 AM [facility] Anion Gap 11 3 - 11 LAB CHEMISTRY METHOD 07/23/2024 11:23 AM [facility] Glucose 88 70 - 100 mg/dL LAB CHEMISTRY METHOD 07/23/2024 11:23 AM [facility] BUN 51(H) 5 - 25 mg/dL LAB CHEMISTRY METHOD 07/23/2024 11:23 AM [facility] Creatinine 1.23(H) 0.50 - 1.10 mg/dL LAB CHEMISTRY METHOD 07/23/2024 11:23 AM [facility] eGFR 48(L) >=60 mL/min/1. 73m2 LAB CHEMISTRY METHOD 07/23/2024 11:23 AM [facility] Comment:Calculation based on the??Chronic Kidney Disease Epidemiology Collaboration (CKD-EPI) equation refit??without adjustment for race. BUN/Creatinine Ratio 41.5 LAB CHEMISTRY METHOD 07/23/2024 11:23 AM [facility] Calcium 9.5 8.5 - 10.5 mg/dL LAB CHEMISTRY METHOD 07/23/2024 11:23 AM [facility] Blood Venous blood specimen / Unknown Venipuncture / Unknown 07/23/2024 8:12 AM EST 07/23/2024 9:41 AM EST Luis YIP LAB BLOOD ORDERABLES [facility] [address] [place] [address], * (ABNORMAL) Complete blood count (07/23/2024 8:12 AM EST) WBC 13.6(H) 4.8 - 10.8 K/mcL LAB HEMETOLOGY METHOD 07/23/2024 10:17 AM [facility] RBC 3.80 3.80 - 4.80 M/[facility] LAB HEMETOLOGY METHOD 07/23/2024 10:17 AM [facility] Hemoglobin 11.4(L) 11.5 - 16.0 g/dL LAB HEMETOLOGY METHOD 07/23/2024 10:17 AM [facility] Hematocrit 34.7(L) 35.0 - 47.0 % LAB HEMETOLOGY METHOD 07/23/2024 10:17 AM [facility] MCV 91.6 79.0 - 98.0 FL LAB HEMETOLOGY METHOD 07/23/2024 10:17 AM [facility] MCH 30.1 27.0 - 32.0 pcg LAB HEMETOLOGY METHOD 07/23/2024 10:17 AM [facility] MCHC 32.9 32.0 - 37.0 g/dL LAB HEMETOLOGY METHOD 07/23/2024 10:17 AM [facility] RDW 15.9(H) 11.0 - 15.0 % LAB HEMETOLOGY METHOD 07/23/2024 10:17 AM [facility] Platelets 294 130 - 400 K/mcL LAB HEMETOLOGY METHOD 07/23/2024 10:17 AM [facility] MPV 11.1(H) 7.0 - 11.0 FL LAB HEMETOLOGY METHOD 07/23/2024 10:17 AM EST [facility] NRBC 0.1 <1.0 % LAB HEMETOLOGY METHOD 07/23/2024 10:17 AM EST [facility] NRBC Absolute 0.02 <0.10 K/mcL LAB HEMETOLOGY METHOD 07/23/2024 10:17 AM EST [facility] Blood Venous blood specimen / Unknown Venipuncture / Unknown 07/23/2024 8:12 AM EST 07/23/2024 9:41 AM EST Luis YIP LAB BLOOD ORDERABLES [facility] [address] [place], [place] [address] [phone] documented in this encounter Visit Diagnoses Diagnosis Dehydration Anemia, unspecified documented in this encounter Additional Health Concerns Infection Onset Date Last Indicated Resolved Time COVID-19 07/04/2024 07/04/2024 Assessment Noted Time PHQ-9 Depression Total Score: 1 07/17/19 2:05 PM EST documented as of this encounter Care Teams Jack Winder Relationship Specialty Start Date End Date Solis Roman MD [address] [place] [address] PCP - General Internal Medicine 06/27/24 documented as of this encounter
--- OUTSIDE RECORDS SUMMARY | 2024-07-24 07:42 | XMS_ITS | Encounter Summary ---
Author Organization [facility] Address [address] [place] [address] Care Team Providers Care Seo Professional Name Role Phone Solis Roman MD Primary Care Provider [phone] Encounter Details Date Type Department Care Team (Late st Contact Info) Description 06/27/2024 Plan of Care Documentation [facility] [address] [place] [address] Social History Tobacco Use Types Packs/Day [...] Progress Notes * Milagros Epstein, OT - 06/27/2024 11:42 AM EST Physical Medicine and Rehabilitation Team [...] hyperlipidemia, GERD, DVT presenting to us from [facility] ( admitted there on 06/10/2024) where she underwent thoracic laminectomieswith subsequent weakness to lower extremities b/l and numbness. Surgery done by Dr. 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 She had a short stay in the ICU there and was then transferred to the floor and then to us for PT/OT and nursing care. Bowel program starting today. Fluids, cyr. BP soft. RN: Started fluids. Suppository after lunch. Cyr, clear, no odor. Oxy for pain. LEs discolored. Sequentials/ PUPP boots. Rash posterior legs, back. YOUNG incision on back. Air mattress. OT: Max-total bed level ADLs. Will trial sitting unsupported. 3 weeks Mod A, direct care. PT: BP low, incontinent. L ankle strength with improvements from prior admission. 3 weeks Partial A, able to direct care. SW: Saw her yesterday, happy to be back. Depression anxiety present. Will cont to follow. CM: Patient lives alone with her dog(neighbor is caring for)in a 2 level condo has 4 steps to enterwith R handrail her bedroom and full bathroom [...] time.Patient is happy to be back at [facility] and is very motivated to work with therapy. Expected Discharge Date: 07/17/24 Risk Adjusted Scores: OT Current: 18 PT Current: 17 Follow-up Services: Other TBD based on progress Equipment Needed: other TBD closer to [place] Barriers to Achieving Rehab Goals: New SCI, limited support Occupational Therapy Assessment Overall Cognitive Status Overall Cognitive Status: Within Functional Limits Precautions Precautions Medical Precautions: Fall Risk Safety Interventions: Call doss within reach RUE Weight Bearing Status: Full LUE Weight Bearing Status: Full RLE Weight Bearing Status: Full LLE Weight Bearing Status: Full Orthopedic Precautions: Back Precautions ADL Assessment Eating Assistance Needed: Set-up / clean-up CARE Score - Eatin Oral Hygiene Assistance Needed: Set-up / clean-up CARE Score - Oral Hygiene: 5 Toileting Hygiene Assistance Needed: Physical assistance Physical Assistance Level: Total assistance Comment: bed level CARE Score - Toileting Hygiene: 1 Shower/Bathe Self Assistance Needed: Physical assistance Physical Assistance Level: 76% or more Comment: bed level CARE Score - Shower/Bathe Self: 2 Upper Body Dressing Assistance Needed: Physical assistance [...] assistance Physical Assistance Level: Total assistance Comment: [facility] CARE Score - Toilet Transfer: 1 OT Assessment Results: OT Assessment Results: Decreased ADL status, Decreased endurance, Decreased sensation, Visual deficit, Decreased functional mobility, Decreased IADLs, Decreased trunk control for functional activities, Impaired tone Evaluation/Treatment Tolerance: Evaluation/Treatment Tolerance: Patient tolerated treatment well (limited by hypotension.) Comments: Comments: hypotension and low labs barrier, PA providing OK for bed level only. Plan Treatment/Interventions: Treatment Interventions: ADL retraining, Functional [...] CARE Score - Sit to Stand: 88 Chair/[id number]-Joxhw Transfer Assistance Needed: Physical assistance Physical Assistance Level: Total assistance Comment: [email or web address] CARE Score - Chair/[id number]-Nuvjm Transfer: 1 Car Transfer Reason if not Attempted: Safety concerns CARE Score - Car Transfer: 88 Picking Up Object Reason if not Attempted: Safety concerns CARE Score - Picking Up Object: 88 Wheelchair Ambulation Walk 10 Feet Reason if not [...] Back Precautions Evaluation/Treatment Tolerance: Evaluation/Treatment Tolerance: Patient tolerated treatment well Comments: Plan Treatment/Interventions: Treatment/Interventions: Functional transfer training, LE strengthening/ROM, Patient/family training, Bed mobility, Balance training, Gait training PT Plan: PT Plan: Skilled PT Discharge Recommendations: PT Discharge Recommendations: (TBD) Equipment Recommended: Equipment Recommended: TBD Barriers to Discharge: Nurse's Assessment Fall Risk Assessment Last Known Fall: No falls Mobility: Use of assistive device/requires assist of two people ToiletingNeeds: Use of catheters or diversion devices, Incontinence Mental Status/LOC/Awareness: Awake, alert, and oriented to date, place, and person Communication/Sensory: Neuropathy Behavior: Appropriate behavior Medications: Cardiovascular and central nervous system meds Volume/Electrolyte Status: No problems Rosalind Beltran Fall Risk Total: 15 Skin Assessment Sensory Perceptions: Very limited Moisture: Occasionally moist Activity: Bedfast Mobility: Slightly limited Nutrition: Probably inadequate Friction and Shear: Problem Felipe Scale Score: 12 Pain Assessment Pain Assessment: 0-10 Pain Score: 7 Pain Type: Surgical pain Pain Location: Back Pain Orientation: Mid Pain Descriptors: Aching, Throbbing Pain Frequency: Intermittent Pain Interventions: Medication (See MAR) Bowel Management Bowel Program/Regime: Bowel Continence Status: Incontinent movement Last BM Date: 06/26/24 Bladder Management Bladder Scan Protocol: Toileting Test Baker's Assessment Adult diet [facility]; General; Regular Physician Attestation: Darline Mccoy, DO, have led the team conference and agree with the results, findings, and decisions made by the interdisciplinary team. documented in this encounter Plan of Treatment Upcoming Encounters Date Type Department Care Team (Late st Contact Info) Description 08/06/2024 1:00 PM EST Office Visit Neurosurgery - [address] [place] [phone] Ramirez Hall MD [address] [facility] [address] [place] [address] documented as of this encounter Visit Diagnoses Not on filedocumented in this encounter Additional Health Concerns Assessment Noted Time PHQ-9 Depression Total Score: 1 06/26/19 12:14 PM EST documented as of this encounter Care Teams Seo Professional Relationship Specialty Start Date End Date Solis Roman MD [address] [place] [address] PCP - General Internal Medicine 06/27/24 documented as of this encounter
--- OUTSIDE RECORDS SUMMARY | 2024-07-24 07:42 | XMS_ITS | Encounter Summary ---
Author Organization [facility] Address [address] [place] [address] Care Team Providers Care Bilingual Nanny Name Role Phone Solis Roman MD Primary Care Provider [phone] Encounter Details Date Type Department Care Team (Late st Contact Info) Description 07/18/2024 Lab Requisition [facility] - Main Lab [address] [place] [address] Clare Maddox MD [address] [place] [address] Vitamin D deficiency, unspecified; Essential (primary) hypertension Social History Tobacco Use Types Packs/Day Years [...] 1:00 PM EST Office Visit Neurosurgery - [address] [place] [phone] Ramirez Hall MD [address] [place] [address] documented as of this encounter Procedures Procedure Name Priority Date/Time Associated Diagnosis Comments VITAMIN D 25 HYDROXY Routine 07/18/2024 10:01 AM EST Vitamin D deficiency, unspecified Essential (primary) hypertension COMPLETE BLOOD COUNT Routine 07/18/2024 10:01 AM EST Vitamin D deficiency, unspecified Essential (primary) hypertension VITAMIN B12 Routine 07/18/2024 10:01 AM EST Vitamin D deficiency, unspecified Essential (primary) hypertension COMPREHENSIVE METABOLIC PANEL Routine 07/18/2024 10:01 AM EST Vitamin D deficiency, unspecified Essential (primary) hypertension documented in this encounter Results * (ABNORMAL) Vitamin D 25 hydroxy (07/18/2024 10:01 AM EST) Vit D, 25-Hydroxy 20.2(L) 30.0 - 80.0 ng/mL LAB CHEMISTRY METHOD 07/18/2024 12:47 PM EST [facility] Blood Venous blood specimen / Unknown Venipuncture / Unknown 07/18/2024 10:01 AM EST 07/18/2024 10:45 AM EST Clare Maddox MD LAB BLOOD ORDERABLES Performing Organization Address City/[facility]/ZIP Co de Phone Number [facility] [address] [place] [address], * (ABNORMAL) Vitamin B12 (07/18/2024 10:01 AM EST) Pathologist [facility] Vitamin B-12 1,238(H) 250 - 900 pcg/mL LAB CHEMISTRY METHOD 07/18/2024 1:02 PM [facility] Blood Venous blood specimen / Unknown Venipuncture / Unknown 07/18/2024 10:01 AM EST 07/18/2024 10:45 AM EST Clare Maddox MD LAB BLOOD ORDERABLES Performing Organization Address [facility]/ZIP Co de Phone Number [facility] [address] [place] [address], [place] [phone] * (ABNORMAL) Comprehensive metabolic panel (07/18/2024 10:01 AM EST) [facility] Sodium 133 133 - 145 mmol/L LAB CHEMISTRY METHOD 07/18/2024 1:02 PM [facility] Potassium 5.4 3.5 - 5.5 mmol/L LAB CHEMISTRY METHOD 07/18/2024 1:02 PM [facility] Chloride 97 96 - 110 mmol/L LAB CHEMISTRY METHOD 07/18/2024 1:02 PM [facility] CO2 30 21 - 32 mmol/L LAB CHEMISTRY METHOD 07/18/2024 1:02 PM [facility] Anion Gap 6 3 - 11 LAB CHEMISTRY METHOD 07/18/2024 1:02 PM [facility] Glucose 126(H) 70 - 100 mg/dL LAB CHEMISTRY METHOD 07/18/2024 1:02 PM [facility] BUN 13 5 - 25 mg/dL LAB CHEMISTRY METHOD 07/18/2024 1:02 PM [facility] Creatinine 0.64 0.50 - 1.10 mg/dL LAB CHEMISTRY METHOD 07/18/2024 1:02 PM [facility] eGFR 97 >=60 mL/min/1. 73m2 LAB CHEMISTRY METHOD 07/18/2024 1:02 PM [facility] Comment:Calculation based on the??Chronic Kidney Disease Epidemiology Collaboration (CKD-EPI) equation refit??without adjustment for race. BUN/Creatinine Ratio 20.3 LAB CHEMISTRY METHOD 07/18/2024 1:02 PM [facility] Calcium 10.4 8.5 - 10.5 mg/dL LAB CHEMISTRY METHOD 07/18/2024 1:02 PM [facility] AST (SGOT) 19 10 - 42 unit/L LAB CHEMISTRY METHOD 07/18/2024 1:02 PM [facility] ALT (SGPT) 25 10 - 60 unit/L LAB CHEMISTRY METHOD 07/18/2024 1:02 PM [facility] Alkaline Phosphatase 175(H) 42 - 121 unit/L LAB CHEMISTRY METHOD 07/18/2024 1:02 PM [facility] Total Protein 5.5(L) 6.0 - 8.0 g/dL LAB CHEMISTRY METHOD 07/18/2024 1:02 PM [facility] Albumin 2.7(L) 3.2 - 5.0 g/dL LAB CHEMISTRY METHOD 07/18/2024 1:02 PM [facility] Total Bilirubin 0.7 0.0 - 1.4 mg/dL LAB CHEMISTRY METHOD 07/18/2024 1:02 PM [facility] Blood Venous blood specimen / Unknown Venipuncture / Unknown 07/18/2024 10:01 AM EST 07/18/2024 10:45 AM EST Clare Maddox MD LAB BLOOD ORDERABLES [facility] [address] [place] [address], * (ABNORMAL) Complete blood count (07/18/2024 10:01 AM EST) [facility] Signature WBC 12.5(H) 4.8 - 10.8 K/mcL LAB HEMETOLOGY METHOD 07/18/2024 12:23 PM EST [facility] RBC 4.00 3.80 - 4.80 M/mcL LAB HEMETOLOGY METHOD 07/18/2024 12:23 PM [facility] Hemoglobin 11.9 11.5 - 16.0 g/dL LAB HEMETOLOGY METHOD 07/18/2024 12:23 PM [facility] Hematocrit 36.8 35.0 - 47.0 % LAB HEMETOLOGY METHOD 07/18/2024 12:23 PM [facility] MCV 92.9 79.0 - 98.0 FL LAB HEMETOLOGY METHOD 07/18/2024 12:23 PM [facility] MCH 30.1 27.0 - 32.0 pcg LAB HEMETOLOGY METHOD 07/18/2024 12:23 PM [facility] MCHC 32.3 32.0 - 37.0 g/dL LAB HEMETOLOGY METHOD 07/18/2024 12:23 PM [facility] RDW 15.8(H) 11.0 - 15.0 % LAB HEMETOLOGY METHOD 07/18/2024 12:23 PM [facility] Platelets 425(H) 130 - 400 K/mcL LAB HEMETOLOGY METHOD 07/18/2024 12:23 PM [facility] MPV 10.4 7.0 - 11.0 FL LAB HEMETOLOGY METHOD 07/18/2024 12:23 PM [facility] NRBC 0.0 <1.0 % LAB HEMETOLOGY METHOD 07/18/2024 12:23 PM EST [facility] NRBC Absolute 0.00 <0.10 K/mcL LAB HEMETOLOGY METHOD 07/18/2024 12:23 PM EST [facility] Blood Venous blood specimen / Unknown Venipuncture / Unknown 07/18/2024 10:01 AM EST 07/18/2024 10:45 AM EST Clare Maddox MD LAB BLOOD ORDERABLES [facility] [address] [place] [address], documented in this encounter Visit Diagnoses Diagnosis Vitamin D deficiency, unspecified Essential (primary) hypertension Unspecified essential hypertension documented in this encounter Additional Health Concerns Infection Onset Date Last Indicated Resolved Time COVID-19 07/04/2024 07/04/2024 Assessment Noted Time PHQ-9 Depression Total Score: 1 07/17/19 2:05 PM EST documented as of this encounter Care Teams Bilingual Nanny Relationship Specialty Start Date End Date Solis Roman MD [address] [place] [address] PCP - General Internal Medicine 06/27/24 documented as of this encounter
--- OUTSIDE RECORDS SUMMARY | 2024-07-24 07:42 | XMS_ITS | Encounter Summary ---
Author Organization [facility] Address [address] [place] [address] Care Team Providers Care Optics Engineer Name Role Phone Solis Roman MD Primary Care Provider [phone] Encounter Details Date Type Department Care Team (Late st Contact Info) Description 07/05/2024 Telephone [facility] [address] [place] [address] Alma Isaac MA Social History Tobacco Use Types Packs/Day Years [...] as of this encounter Progress Notes * Alma Isaac MA - 07/05/2024 8:48 AM EST Patient is currently in rehab w/ covid. She is scheduled to be discharged and would like to know ifour office could extend her stay there. Please call. - TM documented in this encounter Plan of Treatment Upcoming Encounters Date Type Department Care Team (Late st Contact Info) Description 08/06/2024 1:00 PM EST Office Visit Neurosurgery - [address] [place] [address] Ramirez Hall MD [address] [facility] [address] [place] [address] documented as of this encounter Visit Diagnoses Not on filedocumented in this encounter Additional Health Concerns Infection Onset Date Last Indicated Resolved Time COVID-19 07/04/2024 07/04/2024 Assessment Noted Time PHQ-9 Depression Total Score: 1 06/26/19 12:14 PM EST documented as of this encounter Care Teams Optics Engineer Relationship Specialty Start Date End Date Solis Roman MD [address] [place] [address] PCP - General Internal Medicine 06/27/24 documented as of this encounter
--- OUTSIDE RECORDS SUMMARY | 2024-07-24 07:42 | XMS_ITS | Encounter Summary ---
Author Organization [facility] Address [address] [place] [address] Care Team Providers Care District Supervisor Name Role Phone Solis Roman MD Primary Care Provider Encounter Details Date Type Department Care Team (Late st Contact Info) Description 07/04/2024 Plan of Care Documentation [facility] [address] [place] [phone] Social History Tobacco Use Types Packs/Day [...] Progress Notes * Milagros Epstein, OT - 07/04/2024 11:21 AM EST Physical Medicine and Rehabilitation Team [...] hyperlipidemia, GERD, DVT presenting to us from [facility] ( admitted there on 06/10/2024) where she underwent thoracic laminectomieswith subsequent weakness to lower extremities b/l and numbness. Surgery done by Dr. 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 She had a short stay in the ICU there and was then transferred to the floor and then to us for PT/OT and nursing care. Bowel program starting today. Fluids, cyr. BP soft. 07/04- very tired today, chronic hypotension with SCI, UTI, decreased gabapentin. Cyr will be put back in. Bowels cont suppository. RN: Covid swab this AM. Tired/sleepy, feels foggy. BM 07/04. Held oxy this AM. Back incision [employer]. [place] around edges. OT: Max A ADLs bed level. Clarisa to commode. Sitting balance fluctuates. PT: Trialing SB transfers in therapy. Increased in fatigue past 2 days. Working on self-directing care. CM: Patient lives alone with her dog(neighbor is caring for)in a 2 level condo has 4 steps to enterwith R handrail her bedroom and full bathroom are located on the 2nd floor 13 steps with R handrail. Laundry is located in the basement. Prior to [...] able to assist she also has a sister. She states she would need to be independent to return home. Expected Discharge Date: 07/17/2024 Risk Adjusted Scores: OT Current: 18 OT Goal: 34 (16) PT Current: 29 PT Goal: 49 (20) Follow-up Services: SNF physical therapy, occupational therapy, and nursing daily Equipment Needed: other TBD Barriers to Achieving Rehab Goals: New SCI, limited community support. Plan to initiate transitioning to next level of care. Occupational Therapy Assessment Overall Cognitive Status Overall [...] clarisa CARE Score - Toilet Transfer: 1 OT Assessment Results: OT Assessment Results: Decreased ADL status, Decreased endurance, Decreased sensation, Visual deficit, Decreased trunk control for functional activities, Impaired tone Evaluation/Treatment Tolerance: Evaluation/Treatment Tolerance: Patient tolerated treatment well Comments: Comments: Pt required increased assistance with slideboard xfers and decreased independence with sitting balance on this date. Pt tearful about the unknown, reassurance given with positive effect. Plan Treatment/Interventions: Treatment Interventions: ADL retraining, Functional [...] CARE Score - Sit to Stand: 88 Chair/[id number] Transfer Assistance Needed: Physical assistance Physical Assistance Level: Total assistance Comment: clarisa CARE Score - Chair/Vdf-re-Wagvo Transfer: 1 Car Transfer Reason if not [...] Evaluation/Treatment Tolerance: Evaluation/Treatment Tolerance: Patient limited by fatigue Comments: Comments: Pt with fair tolerance to treatment session. Increased fatigue and decreased unsupported seating balance during session. Will continue to benefit from skilled physical therapy. Plan Treatment/Interventions: Treatment/Interventions: Functional transfer training, LE strengthening/ROM, Patient/family training, Bed mobility, Balance training, Gait training PT Plan: PT Plan: Skilled PT Discharge Recommendations: PT Discharge Recommendations: (TBD) Equipment Recommended: Equipment Recommended: TBD Barriers to Discharge: Nurse's Assessment Fall Risk Assessment Last Known Fall: No falls Mobility: Use of assistive device/requires assist of two people ToiletingNeeds: Use of assistive device (Bedside commode, bedpan, urinal) Mental Status/LOC/Awareness: Awake, alert, and oriented to date, place, and person Communication/Sensory: Visual (Glasses)/hearing deficit, Neuropathy Behavior: Appropriate behavior, Depression/anxiety Medications: Cardiovascular and central nervous system meds Volume/Electrolyte Status: No problems Rosalind Beltran Fall Risk Total: 15 Skin Assessment Sensory Perceptions: Very limited Moisture: Rarely moist Activity: Chairfast Mobility: Very limited Nutrition: Adequate Friction and Shear: Problem Felipe Scale Score: 14 Pain Assessment Pain Assessment: 0-10 Pain Score: 0 - No pain Pain Type: Acute pain Pain Location: Back Pain Orientation: Mid Pain Descriptors: Aching Pain Frequency: Intermittent Pain Onset: Ongoing Pain Interventions: Medication (See MAR) Bowel Management Bowel Program/Regime: Bowel Continence Status: Incontinent movement Last BM Date: 07/03/24 Bladder Management Bladder Scan Protocol: Bladder Continence Status: Non-stress incontinence Toileting Currently requiring straight cath Landscape Architecture Professor's Assessment Adult diet [facility]; General; Regular Assessment Diet Experience Previous Diet / Nutrition Education / Counseling: Pt not in room during time of attempted meeting, unable to interview. Pt had two nutrition assessments completed in June, however RD unable to meet with the patient. Based on assessments, pt with good PO intake (75-100% of meals) Appetite RETAIL KEY HOLDER: Other (Comment) (Unable to assess) Intake RETAIL KEY HOLDER: Other (Comment) (Unable to assess) Nutrition Diagnosis Status: New Diagnosis: No Acute Nutrition Dx Nutrition Interventions: Other (Comment) (Follow PO intake, consider nutrition suppleemnts if intakes <65%) Monitoring/Evaluation: Food Intake, Weight, Fluid/Beverage Intake Physician Attestation: IDarline, DO, have led the team conference and agree with the results, findings, and decisions made by the interdisciplinary team. documented in this encounter Plan of Treatment Upcoming Encounters Date Type Department Care Team (Late st Contact Info) Description 08/06/2024 1:00 PM EST Office Visit Neurosurgery [address] [place] [id number] Ramirez Hall MD [address] [id number] documented as of this encounter Visit Diagnoses Not on filedocumented in this encounter Additional Health Concerns Infection Onset Date Last Indicated Resolved Time Respiratory Rule-Out 07/04/2024 07/04/2024 025 12:28 PM EST COVID-19 07/04/2024 07/04/2024 Assessment Noted Time PHQ-9 Depression Total Score: 1 06/26/19 25 12:14 PM EST documented as of this encounter Care Teams District Supervisor Relationship Specialty Start Date End Date Solis Roman MD [address] [place] [phone] PCP - General Internal Medicine 06/27/24 documented as of this encounter
--- OUTSIDE RECORDS SUMMARY | 2024-07-24 07:42 | XMS_ITS | Clinical Summary ---
Author Organization [address] [facility] Address [address] [place] [address] Phone Care Team Providers Care Patient Access Specialist Name Role Phone Solis Roman MD Primary Care Provider [phone] Allergies No known active allergies Medications Medication Sig Dispensed Refills Start Date End Date Status traZODone (DESYREL) 50 mg tablet Take 1.5 tablets (75 mg total) by mouth at bedtime. 04/26/20 24 Active doxepin (SINEquan) 100 mg capsule Take 1 capsule (100 mg total) by mouth at bedtime. at bedtime 05/03/20 24 Active DULoxetine (CYMBALTA) [address] capsule Take 1 capsule (60 mg total) by mouth 1 (one) time each day. 02/11/20 24 Active acetaminophen (TYLENOL) 325 mg tablet Take 3 tablets (975 mg total) by mouth every 8 (eight) hours. 07/17/19 25 025 Active gabapentin (NEURONTIN) 100 mg capsule Take 2 capsules (200 mg total) by mouth every 12 (twelve) hours. 07/17/19 025 Active valsartan (DIOVAN) 40 mg tablet Take 1 tablet (40 mg total) by mouth 1 (one) time each day. 07/17/19 025 Active baclofen (LIORESAL) 5 mg tablet Take 0.5 tablets (2.5 mg total) by mouth 3 (three) times a day. 07/17/19 025 Active bisacodyL (DULCOLAX) 10 mg suppository Insert 1 suppository (10 mg total) into the rectum 1 (one) time each day at the same time. DAILY AT 1800 30 each 07/17/19 Active cholecalciferol (VITAMIN D-3) 50 mcg (2,000 unit) tablet Take 1 tablet (2,000 Units total) by mouth 1 (one) time each day. 07/17/19 Active enoxaparin (LOVENOX) 40 mg/0.4 mL syringeIndications :DVT ppx Inject 0.4 mL (40 mg total) under the skin 1 (one) time each day. 30 each 07/17/19 Active ferrous sulfate 325 mg (65 mg elemental iron) tablet Take 1 tablet (325 mg total) by mouth 2 (two) times a day. 07/17/19 Active nicotine (NICODERM CQ) 7 mg/[address] 1 patch on the skin 1 (one) time each day. 07/17/19 Active pantoprazole (PROTONIX) 40 mg EC tablet Take 1 tablet (40 mg total) by mouth 1 (one) time each day before dinner. Do not crush, chew, or split. 07/17/19 Active polyvinyl alcohol-povidone, PF, (ARTIFICIAL TEARS) 1.4-0.6 % ophthalmic solution Administer 2 drops into both eyes if needed for dry eyes. 07/17/19 Active triamterene-hydroC HLOROthiazide (DYAZIDE) 37.5-25 mg per capsule Take 1 capsule by mouth 1 (one) time each day. Discontinued(St op Taking at Discharge) tiZANidine (ZANAFLEX) 2 mg tablet Take 1 tablet (2 mg total) by mouth 1 (one) time each day. Discontinued(St op Taking at Discharge) gabapentin (NEURONTIN) 800 mg tablet Take 1 tablet (800 mg total) by mouth 2 (two) times a day. Discontinued(St op Taking at Discharge) valsartan (DIOVAN) 320 mg tablet Take 1 tablet (320 mg total) by mouth 1 (one) time each day. 03/22/20 025 Discontinued(St op Taking at Discharge) metoprolol tartrate (LOPRESSOR) 25 mg tablet Take 1 tablet (25 mg total) by mouth 1 (one) time each day. 11/14/19 14 025 Discontinued(St op Taking at Discharge) acetaminophen (TYLENOL) 500 mg tablet Take 2 tablets (1,000 mg total) by mouth every 6 (six) hours for 10 days. 30 tablet 05/25/20 24 025 Discontinued(St op Taking at Discharge) senna-docusate (PERICOLACE) 8.6-50 mg per tablet Take 1 tablet by mouth at bedtime. 30 each 11 05/25/20 24 025 Discontinued(St op Taking at Discharge) famotidine (PEPCID) 20 mg tablet Take 1 tablet (20 mg total) by mouth 1 (one) time each day. 30 each 05/31/20 24 025 Discontinued(St op Taking at Discharge) methylPREDNISolone (MEDROL) 4 mg tablet Take 1 tablet (4 mg total) by mouth 5 (five) times a day for 1 day, THEN 1 tablet (4 mg total) 4 (four) times a day (with meals and nightly) for 1 day, THEN 1 tablet (4 mg total) 3 (three) times a day with meals for 1 day, THEN 1 tablet (4 mg total) 2 (two) times a day with meals for 1 day, THEN 1 tablet (4 mg total) 1 (one) time each day with breakfast for 1 day. 15 each 05/31/20 24 025 Discontinued(St op Taking at Discharge) cevimeline (EVOXAC) 30 mg capsule Take 1 capsule (30 mg total) by mouth 3 (three) times a day. 60 capsule 05/30/20 24 025 Discontinued(Fo rmulary change) heparin sodium,porcine (heparin, UFH,) 5,000 unit/mL injectionIndicatio ns:Prophylaxis of Venous Thromboembolism Inject 1 mL (5,000 Units total) under the skin every 8 (eight) hours for 20 days. 06/21/19 025 Discontinued(St op Taking at Discharge) oxyCODONE (ROXICODONE) 5 mg immediate release tabletIndications: Thoracic myelopathy Take 1 tablet (5 mg total) by mouth every 6 (six) hours if needed for moderate pain. Max Daily Amount: 20 mg 06/21/19 25 025 Discontinued ALPRAZolam (XANAX) 0.5 mg tablet Take 1 tablet (0.5 mg total) by mouth at bedtime as needed for anxiety. Max Daily Amount: 0.5 mg 06/21/19 25 025 acetaminophen (TYLENOL) 325 mg tablet Take 2 tablets (650 mg total) by mouth every 6 (six) hours if needed for mild pain, moderate pain or headaches for up to 10 days. 06/21/19 25 025 Discontinued(St op Taking at Discharge) hydrALAZINE (APRESOLINE) 50 mg tablet Take 1.5 tablets (75 mg total) by mouth 2 (two) times a day. 06/23/19 025 Discontinued(St op Taking at Discharge) methylPREDNISolone (MEDROL DOSPAK) 4 mg tablet Take 1 tablet (4 mg total) by mouth See administration instructions for 6 days. Use as directed by package instructions 06/23/19 025 Discontinued(St op Taking at Discharge) oxyCODONE (ROXICODONE) 5 mg immediate release tabletIndications: Thoracic myelopathy Take 1 tablet (5 mg total) by mouth 2 (two) times a day if needed for moderate pain or severe pain for up to 6 days. Max Daily Amount: 10 mg 15 tablet 07/17/19 025 Active Problems Problem Noted Date Diagnosed Date Lower extremity weakness 06/25/2024 Thoracic myelopathy 06/01/2024 Age-related macular degeneration 05/31/2024 Anxiety 05/31/2024 Obstructive sleep apnea syndrome 05/31/2024 Overview (05/31/2024): Polysomnogram performed on 08/17/2014 at [facility] revealed 1. Obstructive sleep apnea, moderate 2. Hypoventilation with sleep Hypertension 05/31/2024 Peripheral venous insufficiency 05/31/2024 S/P tonsillectomy and adenoidectomy 05/31/2024 Bradycardia 05/31/2024 Thoracic spinal stenosis 05/30/2024 Assessment & Plan (06/02/2024 12:13 PM EST): Ms. Montoya is recovering from re-exploration surgery yesterday and was able to participate in therapy this morning. No wound drainage or signs of infection. Sensory exam is a little worse but motor exam a little better. Steroids were restarted and will continue cyr. Spinal stenosis of thoracic region 05/21/2024 Assessment & Plan (05/27/2024 11:38 AM EST): Ms. Flores is encouraged by the small improvements in her right leg strength. We will continue steroids. She is feeling much better since restarting her evening medications and her metoprolol. I have also added back the Dyazide. Per the PT note, she is a two-person assist and should be transferred with a Clarisa. She may be discharged to rehab when a bed is available. Assessment & Plan (05/21/2024 4:05 PM EST): Patient was in the office about 2 weeks ago for neck pain, difficulty holding her head up, worsening balance, C4-5 spondylolisthesis with moderate central stenosis, possible subtle signal change in the spinal cord. On the MRI there was question of thoracic cord compression, she had her thoracic MRI done yesterday, is coming in to review it. She states she does feel like her left foot is getting more numb, she has pain in the left buttock and bottom of the foot, still describes poor balance, is walking with a cane. She states she has pain in the posterior neck, intrascapular region down to the mid thoracic back. She had thoracic MRI 05/20/2024 at [place] that shows an extra-axial mass at the level of T6, radiologist states differential diagnosis includes meningioma or schwannoma. She has thoracic cord compression, the mass is primarily right central, is displacing the cord posteriorly to the left, possible mild cord edema. I reviewed the images with the patient in detail on the computer. Dr. Markham also reviewed it prior to patient coming in. Ms. Montoya was scheduled for C4-5 ACDF, however she has a more urgent finding with T6-7 stenosis, cord compression, extra-axial mass, could be contributing to her balance issues. Dr. Markham would like to first do T6-7 decompression, resect some of the mass and send to pathology. The mass is anterior to the spinal cord, she is not able to reach the entire mass posteriorly, it also could be adherent to the dura, she will see how much she is able to resect from the right side of the canal, patient is aware she may not be able to remove the entire mass. Doing a decompression will create more space for the spinal cord so there is no compression. Hopefully she will note improvement in her balance and possibly left leg pain. Once she is healed from the surgery we can then go forward with the planned C4-5 ACDF. We discussed the T6-7 decompression surgery, partial resection of mass, risks and benefits in detail, including but not limited to need for general anesthesia, risk for heart attack or stroke, damage to the spinal cord causing paralysis, spinal fluid leak, hematoma, infection, potential for no improvement in symptoms postop. I also called Dr. Roman to see if we can get recent PCP office note and results of thyroid CAT scan done last Tuesday at [facility]. Patient is not on any blood thinners, fish oil, NSAIDs. We reviewed preop instructions, she has Hibiclens body wash at home, we added to her on the schedule for this . All questions answered. Cervical spondylosis 05/12/2024 Assessment & Plan (05/12/2024 4:41 PM EST): Patient has extensive history for lumbar surgery, follows up today for neck pain, aching in her arms diffusely. She states she tends to stay all day with her shoulder shrugged up like she is trying to support her neck, by the end of the day she cannot hold her head up anymore and has to use her hands to support her head. She gets pain radiating down to the intrascapular region. Sometimes when she turns her head she hears a dull thump , then gets some relief of her neck pain for a few minutes. She has been noting some worsening balance issues, has been using a cane since her knee replacements. Occasionally will note jumpy legs at rest. She rates her neck pain 7/10, although usually minimal 1-2/10 when she first gets out of bed in the morning. No recent physical therapy. She denies any issues with swallowing. She has chronic numbness in left 1-3 digits, will drop things due to the numbness. Patient had cervical MRI 03/25/2024 at [place] that showed significant multilevel degenerative changes, including subtle C3-4 anterior listhesis, degenerative C4- 5 anterior listhesis, degenerative disc disease with loss of disc height C4-5, C5- 6, C6-7. She has degenerative changes posteriorly C2-3, C3-4 but without severe central stenosis, most significant level C4-5 with moderate central stenosis, severe bilateral foraminal stenosis, possibly some subtle signal change in the spinal cord at this level. She has reversal of cervical lordosis. Also noted on her MRI physicist light and optics image she appears to have significant stenosis T6-7, possible cord compression. She was also noted to have T2 bright lesion left lobe of the thyroid gland measuring at least 32 mm. I reviewed MRI images in detail with the patient and her friend on the computer, due to her macular degeneration her vision is poor, however she was able to make out what we were discussing on the imaging. Ms. Montoya has neck pain, difficulty holding her head up, worsening balance, C4-5 spondylolisthesis with moderate central stenosis, possible subtle signal change in the spinal cord. Incidentally noted she also has what looks like possible T6-7 cord compression, is going for T-spine MRI 05/19/2024 at 4 PM. Next week she also goes to [facility] for a CAT scan of her thyroid for the incidentally noted lesion. Dr. Markham is offering patient C4-5 ACDF to see if she can help the alignment in her C-spine, help some of her neck pain and ability to hold up her head, although let patient know she still has multilevel degenerative changes and likely would have some residual neck pain postop, and possibly improve her balance. However we do want to see what her thoracic spine MRI shows first, there is possible cord compression which also could be affecting her balance and walking. In addition we will have to see what her thyroid CT shows, if she needs treatment for that as well. We discussed surgery for C4-5 ACDF, risks and benefits in detail, including but not limited to need for general anesthesia, risk for heart attack or stroke, damage to the spinal cord causing paralysis, spinal fluid leak, hematoma, infection, potential for no improvement in symptoms postop. Hibiclens body wash and instructions given to patient. All questions answered. I will call her with the results of thoracic spine MRI once completed and we can update plan if needed. Lumbar spondylosis 05/10/2024 Onychomycosis 05/10/2024 Pain in toe 05/10/2024 Sacroiliitis 05/10/2024 Overview (05/10/2024): left Spondylolisthesis 05/10/2024 Osteoarthritis of hip 05/12/2023 Deep vein thrombosis (DVT) of lower extremity Atrial flutter 09/17/2017 History of artificial joint 05/31/2013 Overview (05/31/2024): On 05/31/2013 underwent left total knee arthroplasty with computer navigation for osteoarthritis, left knee by Luis Higgins M.D. at [facility]. Encounters Date Type Department Care Team Description 07/23/2024 Lab Requisition [facility] Lab [address] [place] [phone] Luis Rivas PA Dehydration; Anemia, unspecified 07/22/2024 Lab Requisition [facility] Lab [address] [place] [phone] Luis Rivas RN Shortness of breath; Other fatigue 07/18/2024 Lab Requisition [facility] Lab [address] [place] [phone] Clare Maddox MD Vitamin D deficiency, unspecified; Essential (primary) hypertension 07/11/2024 Plan of Care Documentation [facility] Inpatient Rehab [address] [place] [address] 07/05/2024 Telephone Neurosurgery [facility] [address] [place] [address] Alma Isaac MA 07/04/2024 Plan of Care Documentation [facility] [address] [place] [address] 06/27/2024 Telephone Neurosurgery [facility] [address] [place] [address] Geovanna Syed, RN Follow up 06/27/2024 Plan of Care Documentation [facility] [address] [place] [phone] 06/25/2024 4:55 PM EST - 07/17/2024 3:52 PM EST Hospital Encounter [facility] [address] [place] [phone] Darline Lara DO Lower extremity weakness (Primary Dx); Thoracic myelopathy Discharge Disposition: Nursing Home Facility 06/11/2024 1:41 PM EST Anesthesia Event [facility] OR [address] [place] [phone] Magnus Villa MD 06/11/2024 1:00 PM EST - 06/11/2024 6:00 PM EST Surgery [facility] OR [address] [place] [phone] Ramirez Hall MD T5-T8 fusion 06/10/2024 5:57 PM EST - 06/25/2024 4:53 PM EST Hospital Encounter [facility] General [address] [place] [phone] Bridgett Renner MD Kurashvili, Pimen, MD Ahmed, Syed Mustajab, MD Alvi, Sama, MD Barami, Kaveh, MD Thoracic myelopathy (Primary Dx); Chronic bilateral thoracic back pain; Hypotension after procedure Discharge Disposition: Nursing Home Facility 06/06/2024 Telephone Neurosurgery [facility] [address] [phone] Mishel Ayoub MA Advice Only (Friend of Pt Clare Hernandez called to pls speak with PA regarding Pt and concerns. Please call [phone] Thank You) 06/04/2024 Plan of Care Documentation [facility] [address] [place] [phone] 06/01/2024 8:38 AM EST Anesthesia Event [facility] OR [address] [place] [phone] Js Stokes MD Steele, Matthew G, CRNA 06/01/2024 8:11 AM EST - 06/01/2024 6:10 PM EST Hospital Encounter [facility] Main OR [address] [place] [phone] Anel Markham MD Thoracic spinal stenosis (Primary Dx); Thoracic myelopathy Discharge Disposition: Rehab Facility 06/01/2024 7:49 AM EST - 06/01/2024 9:59 AM EST Surgery [facility] Main OR [address] [place] [phone] Anel Markham MD REEXPLORATION AND DECOMPRESSION T6-7 05/30/2024 6:54 PM EST - 06/10/2024 5:01 PM EST Hospital Encounter [facility] [address] [place] [phone] Darline Lara DO Discharge Disposition: Nursing Home Facility 05/24/2024 12:28 PM EST Anesthesia Event [facility] OR [address] [place] [phone] Jacob Hightower DO Korobkov, Vitaliy, DO 05/24/2024 11:30 AM EST - 05/24/2024 2:00 PM EST Surgery [facility] OR [address] [place] [phone] Anel Markham MD T6-7 DECOMPRESSION for tumor [[id number] (CPT??)] 05/24/2024 10:27 AM EST - 05/30/2024 6:53 PM EST Hospital Encounter [facility] Urology Unit [address] [place] [address] Anel Markham MD Spinal stenosis of thoracic region Discharge Disposition: Rehab Facility 05/24/2024 7:30 AM EST - 05/24/2024 11:59 PM EST Hospital Encounter [facility] Xray [address] [place] [address] Pain Discharge Disposition: Home or Self Care 05/21/2024 1:00 PM EST Office Visit [address] [phone] Apoorva Genao PA Spinal stenosis of thoracic region (Primary Dx) 05/21/[address] [phone] Mishel Ayoub MA 05/11/2024 11:15 AM EST Office Visit [address] [phone] Apoorva Genao PA Cervical spondylosis (Primary Dx) 05/08/[address] [phone] Apoorva Genao PA Advice Only; Appointment from Last 3 Months Immunizations Name Administration Dates Next Due Influenza, Unspecified 03/16/2023,04/08/2022, Moderna SARS-CoV-2 COVID-19, mRNA, LNP-S, preservative free 04/08/2022,09/19/2020 Pfizer SARS-CoV-2 COVID-19, mRNA, LNP-S, preservative free 04/11/2023,04/19/2021 Zoster Live 11/18/2021,06/23/2020 Surgical History Surgery Date Site/Laterality Comments TOTAL KNEE ARTHROPLASTY Bilateral TOTAL HIP ARTHROPLASTY 06/20/2022 - 06/19/2023 Left BACK SURGERY N/A s/p L2-3 decompression 09/13/[address] Markham, s/p lumbar discectomy Dr. Bales, L3-4, L4-[address] Yarbrough February 2012, subsequent L4-S1 fusion in [place] with Dr. Cagle. CARPAL TUNNEL RELEASE Right ABLATION OF DYSRHYTHMIC FOCUS TONSILLECTOMY ADENOIDECTOMY, BILATERAL MYRINGOTOMY AND TUBES Medical History Medical History Date Comments Hypertension Arthritis Anxiety Lymphedema Macular degeneration Adverse effect of anesthesia sev eral hrs after sx pt had Panic attack Joint pain Irregular heart beat Family History Medical History Relation Name Comments Prostate cancer Brother Prostate cancer Father HTN Mother Uterine cancer Mother Relation Name Status Comments Brother Father Mother Social History Tobacco Use Types Packs/Day Years [...] file Not on file Not on file Obstetrics History Last Filed Vital Signs Vital Sign Reading Time Taken Comments Blood Pressure 138/99 07/17/2024 3:28 PM EST Pulse 99 07/17/2024 3:28 PM EST Temperature 37 ??C (98.6 ??F) 07/17/2024 3:28 PM EST Respiratory Rate 16 07/17/2024 3:28 PM EST Oxygen Saturation 94% 07/17/2024 3:28 PM EST Inhaled Oxygen Concentration - - Weight 84.9 kg (187 lb 3.2 oz) 07/15/2024 11:00 AM EST Height 159 cm (5' 2.6 ) 06/25/2024 10:31 AM EST Body Mass Index 33.59 06/25/2024 10:31 AM EST Plan of Treatment Upcoming Encounters Date Type Department Care Team (Late st Contact Info) Description 08/06/2024 1:00 PM EST Office Visit Neurosurgery - [place] [address] [place] [address] Ramirez Hall MD [address] [place], [place] [phone] Health Maintenance Due Date Last Done Comments Breast Cancer Screening 1955 Hepatitis A Vaccines (1 of 2 - Risk 2-dose series) 10/03/1975 RSV Immunization Patients 60+ Years Old (1 - Risk 60-74 years 1-dose series) 2016 Zoster Vaccines (2 of 3) 01/13/2022 11/18/2021, 09/2020 Cholesterol Screening (Lipid Panel) 05/18/2022 Hepatitis C Screening 05/18/2022 Osteoporosis Screening (Bone Density Screening) 05/18/2022 COVID-19 Vaccine ( season) 2024 04/11/2023, 04/08/2022, 04/19/2021, Additional history exists Influenza Vaccine (#1) 2024 , 03/16/2023, 04/08/2022, Additional history exists Pneumococcal Vaccine: 65+ Years (3 of 3 - PPSV23 or PCV20) 04/25/2025 04/25/2020, 03/09/2018 Colorectal Cancer Screening: Stool Based Tests (FOBT/FIT) 07/03/2025 07/03/2024 Depression Screening 07/17/2025 07/17/2024 Falls Risk Assessment 07/17/2025 07/17/2024 Social Influencers of Health Screening 07/17/2025 07/17/2024 Hypertension/CHF/CAD Annual BMP Blood Test 07/23/2025 07/23/2024, 07/22/2024, 07/18/2024, Additional history exists DTaP,Tdap,and Td Vaccines (2 - Td or Tdap) 12/23/2026 12/23/2016 HIB Vaccines Aged Out No longer eligi ble based on patient's age to complete this topic HPV Vaccines Aged Out No longer eligi ble based on patient's age to complete this topic Hepatitis B Vaccines Aged Out No long er eligible based on patient's age to complete this topic IPV Vaccines Aged Out No longer eligi ble based on patient's age to complete this topic MMR Vaccines Aged Out No longer eligi ble based on patient's age to complete this topic Meningococcal ACWY Vaccine Aged Out N o longer eligible based on patient's age to complete this topic RSV Immunization Patients Under 20 months Aged Out No longer eligible based on patient's age to complete this topic Varicella Vaccines Aged Out No longer eligible based on patient's age to complete this topic Medical Devices Implanted Type Area Production Tech Device Identifier Shelf Expiration Date Model / Serial / Lot Duraseal Exact Spine Sealant 5ml W Applicator - Sn/A - [id number] Implanted:Qt y: 1 on 06/01/2024 by Anel Markham MD at [facility] Hemostasis N/A: Spine Thoracic [employer] 05/19/2025 [id number] / N/A / [id number] Surgiflo Hemostatic Matrix - Sn/A - [id number] Implanted:Qt y: 1 on 06/11/2024 by Ramirez Hall MD at [facility] Hemostasis N/A: Spine Thoracic [employer] 03/29/2026 2991 / N/A / [id number] Description:USED PRN Sealant Fibrin Vistaseal 4ml - [id number] - [id number] Implanted:Qt y: 1 on 06/11/2024 by Ramirez Hall MD at [facility] Hemostasis N/A: Spine Thoracic [employer] 04/03/2026 [id number] / [id number] / [id number] Surgiflo Hemostatic Matrix - S000 - [id number] Implanted:Qt y: 1 on 06/11/2024 by Ramirez Hall MD at [facility] Hemostasis N/A: Spine Thoracic [employer] 11/13/2025 2991 / 000 / [id number] Surgiflo Hemostatic Matrix - Sn/A - [id number] Implanted:Qt y: 1 on 06/11/2024 by Ramirez Hall MD at [facility] Hemostasis N/A: Spine Thoracic [employer] 03/14/2026 2991 / N/A / [id number] Description:USED PRN Joints Hip Joints Hip Left: Hip Joints Knee Joints Knee Bilateral : Knee Graft Dural Duragen Plus 1x3in 2.5x7.5cm - Sn/A - [id number] Implanted:Qt y: 1 on 06/01/2024 by Anel Markham MD at [facility] Neurostim N/A: Spine Thoracic [employer] 02/17/2026 [id number]-[id number] / N/A / [id number] Chips Bio Cancellous 1-4mm Particle Range 5ml - [id number] - [id number] Implanted:Qt y: 1 on 06/11/2024 by Ramirez Hall MD at [facility] Orthobiolo gics Bone N/A: Spine Thoracic [employer] 02/05/2029 [id number] / [id number] / N/A Chips Bio Cancellous 1-4mm Particle Range 5ml - [id number] - [id number] Implanted:Qt y: 1 on 06/11/2024 by Ramirez Hall MD at [facility] Orthobiolo gics Bone N/A: Spine Thoracic [employer] 02/05/2029 [id number] / [id number] / N/A Powder Surgifoam Absorb Gel - Sna - [id number] Implanted:Qt y: 2 on 05/24/2024 by Anel Markham MD at [facility] Osteobiolo gics N/A: Spine Thoracic [employer] [id number] 12/22/2025 1978 / NA / [id number] Description:1 gram surgifoam powder mixed with 10,000 units thrombin. Duramatrix Onlay Plus 1x1 - Sn/A - [id number] Implanted:Qt y: 1 on 06/11/2024 by Ramirez Hall MD at [facility] Osteobiolo gics N/A: Spine Thoracic SHAGUFTA CRANIOMAXILLOFACIA L 09/17/2026 [id number] / N/A / [id number] Vesuvius 100 Dbm Bone Putty 10 - [id number] - [id number] Implanted:Qt y: 1 on 06/11/2024 by Ramirez Hall MD at [facility] Osteobiolo gics N/A: Spine Thoracic SHAGUFTA SPINE- K2M 02/17/2027 [id number] / [id number] / [id number] Screw Spinal [id number] [place]ado Polyaxial Pedicle Titan - Sn/A - [id number] Implanted:Qt y: 7 on 06/11/2024 by Ramirez Hall MD at [facility] Spinal Hardware N/A: Spine Thoracic SHAGUFTA SPINE- K2M [id number] / N/A / N/A Screw Set Qu[place] - Sn/A - [id number] Implanted:Qt y: 8 on 06/11/2024 by Ramirez Hall MD at [facility] Spinal Hardware N/A: Spine Thoracic SHAGUFTA SPINE- K2M [id number] / N/A / N/A Herrera Spnl Contr [id number] - Sn/A - [id number] Implanted:Qt y: 2 on 06/11/2024 by Ramirez Hall MD at [facility] Spinal Hardware N/A: Spine Thoracic SHAGUFTA SPINE- K2M [id number] / N/A / N/A Quemado 4.0 X 30mm Screw Implanted:Qt y: 1 on 06/11/2024 by Ramirez Hall MD at [facility] N/A: Spine Thoracic SHAGUFTA SPINE [id number] / N/A / N/A Procedures Procedure Name Priority Date/Time Associated Diagnosis Comments PROTEIN, TOTAL Routine 07/23/2024 8:12 AM EST Dehydration Anemia, unspecified ALANINE AMINOTRANSFERASE Routine 07/23/2024 8:12 AM EST Dehydration Anemia, unspecified ASPARTATE AMINOTRANSFERASE Routine 07/23/2024 8:12 AM EST Dehydration Anemia, unspecified BILIRUBIN, TOTAL Routine 07/23/2024 8:12 AM EST Dehydration Anemia, unspecified ALKALINE PHOSPHATASE Routine 07/23/2024 8:12 AM EST Dehydration Anemia, unspecified ALBUMIN Routine 07/23/2024 8:12 AM EST Dehydration Anemia, unspecified BASIC METABOLIC PANEL Routine 07/23/2024 8:12 AM EST Dehydration Anemia, unspecified COMPLETE BLOOD COUNT Routine 07/23/2024 8:12 AM EST Dehydration Anemia, unspecified COMPREHENSIVE METABOLIC PANEL Routine 07/22/2024 5:14 AM EST Shortness of breath Other fatigue COMPLETE BLOOD COUNT Routine 07/22/2024 5:14 AM EST Shortness of breath Other fatigue VITAMIN D 25 HYDROXY Routine 07/18/2024 10:01 AM EST Vitamin D deficiency, unspecified Essential (primary) hypertension VITAMIN B12 Routine 07/18/2024 10:01 AM EST Vitamin D deficiency, unspecified Essential (primary) hypertension COMPREHENSIVE METABOLIC PANEL Routine 07/18/2024 10:01 AM EST Vitamin D deficiency, unspecified Essential (primary) hypertension COMPLETE BLOOD COUNT Routine 07/18/2024 10:01 AM EST Vitamin D deficiency, unspecified Essential (primary) hypertension MAGNESIUM Routine 07/16/2024 5:43 AM EST COMPLETE BLOOD COUNT Routine 07/16/2024 5:43 AM EST COMPREHENSIVE METABOLIC PANEL Routine 07/16/2024 5:43 AM EST BASIC METABOLIC PANEL Routine 07/11/2024 5:58 AM EST COMPLETE BLOOD COUNT Routine 07/11/2024 5:58 AM EST COMPLETE BLOOD COUNT Routine 07/06/2024 6:14 AM EST COMPREHENSIVE METABOLIC PANEL Routine 07/06/2024 6:14 AM EST RESPIRATORY VIRUS PANEL MOLECULAR STUDY Routine 07/04/2024 11:05 AM EST CBC WITH AUTO DIFFERENTIAL STAT 07/04/2024 8:51 AM EST COMPREHENSIVE METABOLIC PANEL STAT 07/04/2024 8:51 AM EST CBC AND DIFFERENTIAL STAT 07/04/2024 8:51 AM EST OCCULT BLOOD STOOL, GUAIAC Routine 07/03/2024 2:49 PM EST CBC WITH AUTO DIFFERENTIAL Routine 07/03/2024 6:13 AM EST BASIC METABOLIC PANEL Routine 07/03/2024 6:13 AM EST CBC AND DIFFERENTIAL Routine 07/03/2024 6:13 AM EST FLORES URINE CULTURE TUBE Routine 07/02/2024 3:30 PM EST URINALYSIS WITH REFLEX MICROSCOPIC AND CULTURE Routine 07/02/2024 3:30 PM EST URINALYSIS WITH REFLEX MICROSCOPIC AND CULTURE Routine 07/02/2024 3:30 PM EST CULTURE URINE Routine 07/02/2024 3:30 PM EST COMPLETE BLOOD COUNT Routine 07/02/2024 5:56 AM EST BASIC METABOLIC PANEL Routine 07/02/2024 5:56 AM EST BASIC METABOLIC PANEL Routine 06/28/2024 5:55 AM EST LAVENDER - EDTA Routine 06/28/2024 5:53 AM EST EXTRA TUBES Routine 06/28/2024 5:53 AM EST MAGNESIUM Routine 06/27/2024 6:23 AM EST COMPLETE BLOOD COUNT Routine 06/27/2024 6:23 AM EST COMPREHENSIVE METABOLIC PANEL Routine 06/27/2024 6:23 AM EST RBC MORPHOLOGY REVIEW Routine 06/26/2024 5:55 AM EST CBC WITH AUTO DIFFERENTIAL Routine 06/26/2024 5:55 AM EST PROTHROMBIN TIME WITH INR Routine 06/26/2024 5:55 AM EST COMPREHENSIVE METABOLIC PANEL Routine 06/26/2024 5:55 AM EST CBC AND DIFFERENTIAL Routine 06/26/2024 5:55 AM EST POCT GLUCOSE BLOOD Routine 06/25/2024 12:11 PM EST CBC WITH AUTO DIFFERENTIAL STAT 06/25/2024 8:58 AM EST CBC AND DIFFERENTIAL STAT 06/25/2024 8:58 AM EST POCT GLUCOSE BLOOD Routine 06/25/2024 8: 30 AM EST POCT GLUCOSE BLOOD Routine 06/24/2024 4: 52 PM EST POCT GLUCOSE BLOOD Routine 06/24/2024 12:08 PM EST POCT GLUCOSE BLOOD Routine 06/24/2024 8: 33 AM EST COMPLETE BLOOD COUNT Timed 06/24/2024 7:12 AM EST POCT GLUCOSE BLOOD Routine 06/23/2024 8: 51 PM EST POCT GLUCOSE BLOOD Routine 06/23/2024 5: 37 PM EST CBC WITH AUTO DIFFERENTIAL STAT 06/23/2024 1:30 PM EST CBC AND DIFFERENTIAL STAT 06/23/2024 1:30 PM EST POCT GLUCOSE BLOOD Routine 06/23/2024 12:49 PM EST POCT GLUCOSE BLOOD Routine 06/23/2024 8: 58 AM EST POCT GLUCOSE BLOOD Routine 06/22/2024 9: 34 PM EST POCT GLUCOSE BLOOD Routine 06/22/2024 5: 30 PM EST POCT GLUCOSE BLOOD Routine 06/22/2024 11:55 AM EST POCT GLUCOSE BLOOD Routine 06/22/2024 8: 38 AM EST POCT GLUCOSE BLOOD Routine 06/21/2024 10:23 PM EST POCT GLUCOSE BLOOD Routine 06/21/2024 5: 24 PM EST POCT GLUCOSE BLOOD Routine 06/21/2024 12:40 PM EST COMPLETE BLOOD COUNT Timed 06/21/2024 10:13 AM EST POCT GLUCOSE BLOOD Routine 06/21/2024 8: 33 AM EST POCT GLUCOSE BLOOD Routine 06/20/2024 9: 54 PM EST POCT GLUCOSE BLOOD Routine 06/20/2024 4: 58 PM EST POCT GLUCOSE BLOOD Routine 06/20/2024 2: 22 PM EST POCT GLUCOSE BLOOD Routine 06/20/2024 8: 15 AM EST POCT GLUCOSE BLOOD Routine 06/19/2024 9: 22 PM EST POCT GLUCOSE BLOOD Routine 06/19/2024 5: 13 PM EST POCT GLUCOSE BLOOD Routine 06/19/2024 11:58 AM EST POCT GLUCOSE BLOOD Routine 06/19/2024 7: 59 AM EST POCT GLUCOSE BLOOD Routine 06/18/2024 9: 50 PM EST POCT GLUCOSE BLOOD Routine 06/18/2024 5: 18 PM EST POCT GLUCOSE BLOOD Routine 06/18/2024 12:14 PM EST COMPLETE BLOOD COUNT Timed 06/18/2024 9:23 AM EST POCT GLUCOSE BLOOD Routine 06/18/2024 8: 20 AM EST POCT GLUCOSE BLOOD Routine 06/17/2024 9: 19 PM EST POCT GLUCOSE BLOOD Routine 06/17/2024 4: 48 PM EST POCT GLUCOSE BLOOD Routine 06/17/2024 12:06 PM EST POCT GLUCOSE BLOOD Routine 06/17/2024 8: 19 AM EST POCT GLUCOSE BLOOD Routine 06/16/2024 11:37 PM EST POCT GLUCOSE BLOOD Routine 06/16/2024 4: 47 PM EST POCT GLUCOSE BLOOD Routine 06/16/2024 11:47 AM EST POCT GLUCOSE BLOOD Routine 06/16/2024 8: 05 AM EST POCT GLUCOSE BLOOD Routine 06/15/2024 10:34 PM EST POCT GLUCOSE BLOOD Routine 06/15/2024 4: 50 PM EST POCT GLUCOSE BLOOD Routine 06/15/2024 12:01 PM EST POCT GLUCOSE BLOOD Routine 06/15/2024 7: 59 AM EST MAGNESIUM Timed 06/15/2024 5:27 AM EST PHOSPHORUS Timed 06/15/2024 5:27 AM EST BASIC METABOLIC PANEL Timed 06/15/2024 5:27 AM EST COMPLETE BLOOD COUNT Timed 06/15/2024 5:27 AM EST POCT GLUCOSE BLOOD Routine 06/14/2024 11:[address] THORACIC SPINE WO CONTRAST Routine 06/14/2024 5:26 PM EST PHOSPHORUS Timed 06/14/2024 4:35 AM EST MAGNESIUM Timed 06/14/2024 4:35 AM EST BASIC METABOLIC PANEL Timed 06/14/2024 4:35 AM EST COMPLETE BLOOD COUNT Timed 06/14/2024 4:35 AM EST POCT GLUCOSE BLOOD Routine 06/13/2024 10:32 PM EST POCT GLUCOSE BLOOD Routine 06/13/2024 5: 43 PM EST POCT GLUCOSE BLOOD Routine 06/13/2024 12:26 PM EST POCT GLUCOSE BLOOD Routine 06/13/2024 8: 38 AM EST CBC WITH AUTO DIFFERENTIAL Timed 06/13/2024 5:07 AM EST BASIC METABOLIC PANEL Timed 06/13/2024 5:07 AM EST PHOSPHORUS Timed 06/13/2024 5:07 AM EST MAGNESIUM Timed 06/13/2024 5:07 AM EST CBC AND DIFFERENTIAL Timed 06/13/2024 5:07 AM EST POCT GLUCOSE BLOOD Routine 06/12/2024 10:11 PM EST POCT GLUCOSE BLOOD Routine 06/12/2024 5: 08 PM EST POCT GLUCOSE BLOOD Routine 06/12/2024 1: 23 PM EST POCT GLUCOSE BLOOD Routine 06/12/2024 9: 38 AM EST CBC WITH AUTO DIFFERENTIAL Timed 06/12/2024 3:48 AM EST PHOSPHORUS Timed 06/12/2024 3:48 AM EST MAGNESIUM Timed 06/12/2024 3:48 AM EST CBC AND DIFFERENTIAL Timed 06/12/2024 3:48 AM EST CALCIUM, IONIZED Timed 06/12/2024 3:48 AM EST BASIC METABOLIC PANEL Timed 06/12/2024 3:48 AM EST LACTATE, WITH REFLEX STAT 06/11/2024 8:52 PM EST MAGNESIUM STAT 06/11/2024 8:52 PM EST PHOSPHORUS STAT 06/11/2024 8:52 PM EST COMPLETE BLOOD COUNT STAT 06/11/2024 8:52 PM EST CALCIUM, IONIZED STAT 06/11/2024 8:52 PM EST BASIC METABOLIC PANEL STAT 06/11/2024 8:52 PM EST OH CATHETERIZATION/CANNUL ATION ARTERIAL SAMPLE/MONITORING/DEMARCO SFUSION PERC Routine 06/11/2024 8:43 PM EST Thoracic myelopathy Hypotension after procedure POCT GLUCOSE BLOOD Routine 06/11/2024 7: [address] SURG PLAN THORACIC SPINE WO CONTRAST(STATISTICS) Routine 06/11/2024 7:00 PM EST POCT VENOUS NA, K, HH Routine 06/11/2024 5:18 PM EST TISSUE EXAM Routine 06/11/2024 4:37 PM EST Chronic bilateral thoracic back pain TH AN ENDOTRACHEAL(NO CHARGE) Routine 06/11/2024 2:00 PM EST DECOMPRESSION THORACIC 1:25 PM EST Chronic bilateral thoracic back pain Case Notes NeuromonitoringMicroscopeAiro+C-arm FUSION THORACIC POSTERIOR 06/11/2024 1:25 PM EST Chronic bilateral thoracic back pain Case Notes NeuromonitoringMicroscopeAiro+C-arm URINALYSIS WITH MICROSCOPIC STAT 06/11/2024 1:21 PM EST URINALYSIS WITH MICROSCOPIC STAT 06/11/2024 1:21 PM EST COMPLETE BLOOD COUNT Timed 06/10/2024 5:35 AM EST SST - GOLD Routine 06/10/2024 5:31 AM EST EXTRA TUBES Routine 06/10/2024 5:31 AM EST COMPLETE BLOOD COUNT Routine 06/08/2024 6:08 AM EST COMPREHENSIVE METABOLIC PANEL Routine 06/08/2024 6:08 AM EST XR ABDOMEN 1 VIEW Routine 06/07/2024 2:3 4 PM EST COMPLETE BLOOD COUNT Routine 06/06/2024 5:52 AM EST COMPREHENSIVE METABOLIC PANEL Routine 06/06/2024 5:52 AM EST XR SPINE 1 VIEW Routine 06/01/2024 10:02 AM EST TISSUE EXAM Routine 06/01/2024 10:00 AM EST Thoracic myelopathy TH AN ENDOTRACHEAL(NO CHARGE) Routine 06/01/2024 9:10 AM EST DECOMPRESSION THORACIC 8:38 AM EST Thoracic myelopathy MR THORACIC SPINE WO AND W CONTRAST STAT 05/31/2024 6:34 PM EST CBC WITH AUTO DIFFERENTIAL Routine 05/31/2024 5:56 AM EST COMPREHENSIVE METABOLIC PANEL Routine 05/31/2024 5:56 AM EST CBC AND DIFFERENTIAL Routine 05/31/2024 5:56 AM EST CREATININE, SERUM Routine 05/25/2024 4:[address] THORACIC SPINE WO CONTRAST Routine 05/24/2024 8:18 PM EST XR SPINE 1 VIEW Routine 05/24/2024 4:30 PM EST Pain OXYGEN THERAPY, ADULT Routine 05/24/2024 4:24 PM EST OXYGEN THERAPY, ADULT Routine 05/24/2024 4:24 PM EST TISSUE EXAM Routine 05/24/2024 2:40 PM EST Spinal stenosis of thoracic region TH AN ENDOTRACHEAL(NO CHARGE) Routine 05/24/2024 1:30 PM EST OH K[place]KLAND FOR BIOPSY/EXCISION OF INTRASPINAL NEOPLASM EXTRADURAL THORACIC 05/24/2024 12:28 PM EST Spinal stenosis of thoracic region Case Notes 23-HR BED,MIDAS,CHEST ROLLS, MCCULOUGH Special Needs Midas, chest rolls, Cramer PROCEDURAL ECG Routine 05/24/2024 10:53 AM EST DECOMPRESSION THORACIC Case Notes MOVE TO OR 4 from Last 3 Months Results * (ABNORMAL) Complete blood count (07/23/2024 8:12 AM EST) Only the most recent of17 resultswithin the time period is included. WBC 13.6(H) 4.8 - 10.8 K/mcL LAB HEMETOLOGY METHOD 07/23/2024 10:17 AM [facility] RBC 3.80 3.80 - 4.80 M/mcL LAB HEMETOLOGY METHOD 07/23/2024 10:17 AM [facility] Hemoglobin 11.4(L) 11.5 - 16.0 g/dL LAB HEMETOLOGY METHOD 07/23/2024 10:17 AM [facility] Hematocrit 34.7(L) 35.0 - 47.0 % LAB HEMETOLOGY METHOD 07/23/2024 10:17 AM [facility] MCV 91.6 79.0 - 98.0 FL LAB HEMETOLOGY METHOD 07/23/2024 10:17 AM [facility] MCH 30.1 27.0 - 32.0 pcg LAB HEMETOLOGY METHOD 07/23/2024 10:17 AM [facility] MCHC 32.9 32.0 - 37.0 g/dL LAB HEMETOLOGY METHOD 07/23/2024 10:17 AM [facility] RDW 15.9(H) 11.0 - 15.0 % LAB HEMETOLOGY METHOD 07/23/2024 10:17 AM [facility] Platelets 294 130 - 400 K/mcL LAB HEMETOLOGY METHOD 07/23/2024 10:17 AM [facility] MPV 11.1(H) 7.0 - 11.0 FL LAB HEMETOLOGY METHOD 07/23/2024 10:17 AM EST [facility] NRBC 0.1 <1.0 % LAB HEMETOLOGY METHOD 07/23/2024 10:17 AM EST [facility] NRBC Absolute 0.02 <0.10 K/mcL LAB HEMETOLOGY METHOD 07/23/2024 10:17 AM EST [facility] Blood Venous blood specimen / Unknown Venipuncture / Unknown 07/23/2024 8:12 AM EST 07/23/2024 9:41 AM EST Luis YIP LAB BLOOD ORDERABLES [facility] [address] [place] [address], * (ABNORMAL) Alanine aminotransferase (07/23/2024 8:12 AM EST) ALT (SGPT) 335(H) 10 - 60 unit/L LAB CHEMISTRY METHOD 07/23/2024 5:47 PM EST [facility] Blood Venous blood specimen / Unknown Venipuncture / Unknown 07/23/2024 8:12 AM EST 07/23/2024 9:41 AM EST Luis YIP LAB BLOOD ORDERABLES [facility] [address] [place] [address], [place] [phone] * (ABNORMAL) Aspartate aminotransferase (07/23/2024 8:12 AM EST) AST (SGOT) 133(H) 10 - 42 unit/L LAB CHEMISTRY METHOD 07/23/2024 5:47 PM EST [facility] Blood Venous blood specimen / Unknown Venipuncture / Unknown 07/23/2024 8:12 AM EST 07/23/2024 9:41 AM EST Luis YIP LAB BLOOD ORDERABLES Performing Organization Address City/[facility]/ZIP Co de Phone Number [facility] [address] [place] [address], [place] [phone] * (ABNORMAL) Protein, total (07/23/2024 8:12 AM EST) Total Protein 4.9(L) 6.0 - 8.0 g/dL LAB CHEMISTRY METHOD 07/23/2024 5:47 PM EST [facility] Blood Venous blood specimen / Unknown Venipuncture / Unknown 07/23/2024 8:12 AM EST 07/23/2024 9:41 AM EST Luis YIP LAB BLOOD ORDERABLES Performing Organization Address [facility] Co de Phone Number [facility] [address] [place] [address], [place] [phone] * (ABNORMAL) Alkaline phosphatase (07/23/2024 8:12 AM EST) Alkaline Phosphatase 187(H) 42 - 121 unit/L LAB CHEMISTRY METHOD 07/23/2024 5:47 PM EST [facility] Blood Venous blood specimen / Unknown Venipuncture / Unknown 07/23/2024 8:12 AM EST 07/23/2024 9:41 AM EST Luis YIP LAB BLOOD ORDERABLES Performing Organization Address City/[facility]/ZIP Co de Phone Number [facility] [address] [place] [address], [place] [phone] * Bilirubin, total (07/23/2024 8:12 AM EST) Total Bilirubin 0.6 0.0 - 1.4 mg/dL LAB CHEMISTRY METHOD 07/23/2024 5:47 PM EST [facility] Blood Venous blood specimen / Unknown Venipuncture / Unknown 07/23/2024 8:12 AM EST 07/23/2024 9:41 AM EST Luis YIP LAB BLOOD ORDERABLES [facility] [address] [place] [address], [place] [phone] * (ABNORMAL) Albumin (07/23/2024 8:12 AM EST) Pathologist [facility] Albumin 2.2(L) 3.2 - 5.0 g/dL LAB CHEMISTRY METHOD 07/23/2024 5:47 PM EST [facility] Blood Venous blood specimen / Unknown Venipuncture / Unknown 07/23/2024 8:12 AM EST 07/23/2024 9:41 AM EST Luis YIP LAB BLOOD ORDERABLES Performing Organization Address City/[facility]/ZIP Co de Phone Number [facility] [address] [place] [address], [place] [phone] * (ABNORMAL) Basic metabolic panel (07/23/2024 8:12 AM EST) Only the most recent of10 resultswithin the time period is included. Pathologist [facility] Sodium 132(L) 133 - 145 mmol/L LAB CHEMISTRY METHOD 07/23/2024 11:23 AM [facility] Potassium 4.5 3.5 - 5.5 mmol/L LAB CHEMISTRY METHOD 07/23/2024 11:23 AM [facility] Chloride 96 96 - 110 mmol/L LAB CHEMISTRY METHOD 07/23/2024 11:23 AM [facility] CO2 25 21 - 32 mmol/L LAB CHEMISTRY METHOD 07/23/2024 11:23 AM [facility] Anion Gap 11 3 - 11 LAB CHEMISTRY METHOD 07/23/2024 11:23 AM [facility] Glucose 88 70 - 100 mg/dL LAB CHEMISTRY METHOD 07/23/2024 11:23 AM [facility] BUN 51(H) 5 - 25 mg/dL LAB CHEMISTRY METHOD 07/23/2024 11:23 AM [facility] Creatinine 1.23(H) 0.50 - 1.10 mg/dL LAB CHEMISTRY METHOD 07/23/2024 11:23 AM [facility] eGFR 48(L) >=60 mL/min/1. 73m2 LAB CHEMISTRY METHOD 07/23/2024 11:23 AM [facility] Comment:Calculation based on the??Chronic Kidney Disease Epidemiology Collaboration (CKD-EPI) equation refit??without adjustment for race. BUN/Creatinine Ratio 41.5 LAB CHEMISTRY METHOD 07/23/2024 11:23 AM [facility] Calcium 9.5 8.5 - 10.5 mg/dL LAB CHEMISTRY METHOD 07/23/2024 11:23 AM [facility] Blood Venous blood specimen / Unknown Venipuncture / Unknown 07/23/2024 8:12 AM EST 07/23/2024 9:41 AM EST Luis YIP LAB BLOOD ORDERABLES [facility] [address] [place] [address], * (ABNORMAL) Comprehensive metabolic panel (07/22/2024 5:14 AM EST) Only the most recent of10 resultswithin the time period is included. Sodium 130(L) 133 - 145 mmol/L LAB CHEMISTRY METHOD 07/22/2024 9:48 AM [facility] Potassium 5.3 3.5 - 5.5 mmol/L LAB CHEMISTRY METHOD 07/22/2024 9:48 AM [facility] Chloride 92(L) 96 - 110 mmol/L LAB CHEMISTRY METHOD 07/22/2024 9:48 AM [facility] CO2 28 21 - 32 mmol/L LAB CHEMISTRY METHOD 07/22/2024 9:48 AM [facility] Anion Gap 10 3 - 11 LAB CHEMISTRY METHOD 07/22/2024 9:48 AM [facility] Glucose 93 70 - 100 mg/dL LAB CHEMISTRY METHOD 07/22/2024 9:48 AM [facility] BUN 55(H) 5 - 25 mg/dL LAB CHEMISTRY METHOD 07/22/2024 9:48 AM [facility] Comment:Results verified by repeat testing Creatinine 1.45(H) 0.50 - 1.10 mg/dL LAB CHEMISTRY METHOD 07/22/2024 9:48 AM [facility] Comment:Results verified by repeat testing eGFR 40(L) >=60 mL/min/1. 73m2 LAB CHEMISTRY METHOD 07/22/2024 9:48 AM [facility] Comment:Calculation based on the??Chronic Kidney Disease Epidemiology Collaboration (CKD-EPI) equation refit??without adjustment for race. BUN/Creatinine Ratio 37.9 LAB CHEMISTRY METHOD 07/22/2024 9:48 AM [facility] Calcium 9.9 8.5 - 10.5 mg/dL LAB CHEMISTRY METHOD 07/22/2024 9:48 AM [facility] AST (SGOT) 461(H) 10 - 42 unit/L LAB CHEMISTRY METHOD 07/22/2024 9:48 AM [facility] Comment:Results verified by repeat testing ALT (SGPT) 510(H) 10 - 60 unit/L LAB CHEMISTRY METHOD 07/22/2024 9:48 AM [facility] Comment:Results verified by repeat testing Alkaline Phosphatase 217(H) 42 - 121 unit/L LAB CHEMISTRY METHOD 07/22/2024 9:48 AM [facility] Total Protein 5.3(L) 6.0 - 8.0 g/dL LAB CHEMISTRY METHOD 07/22/2024 9:48 AM EST [facility] Albumin 2.5(L) 3.2 - 5.0 g/dL LAB CHEMISTRY METHOD 07/22/2024 9:48 AM EST [facility] Total Bilirubin 0.8 0.0 - 1.4 mg/dL LAB CHEMISTRY METHOD 07/22/2024 9:48 AM EST [facility] Blood Venous blood specimen / Unknown Venipuncture / Unknown 07/22/2024 5:14 AM EST 07/22/2024 8:51 AM EST Luis Rivas RN LAB BLOOD ORDERABLES [facility] [address] [place] [address], [place] [phone] * (ABNORMAL) Vitamin D 25 hydroxy (07/18/2024 10:01 AM EST) Vit D, 25-Hydroxy 20.2(L) 30.0 - 80.0 ng/mL LAB CHEMISTRY METHOD 07/18/2024 12:47 PM EST [facility] Blood Venous blood specimen / Unknown Venipuncture / Unknown 07/18/2024 10:01 AM EST 07/18/2024 10:45 AM EST Clare Maddox MD LAB BLOOD ORDERABLES [facility] [address] [place] [address], [place] [phone] * (ABNORMAL) Vitamin B12 (07/18/2024 10:01 AM EST) Vitamin B-12 1,238(H) 250 - 900 pcg/mL LAB CHEMISTRY METHOD 07/18/2024 1:02 PM EST [facility] Blood Venous blood specimen / Unknown Venipuncture / Unknown 07/18/2024 10:01 AM EST 07/18/2024 10:45 AM EST lCare Maddox MD LAB BLOOD ORDERABLES [facility] [address] [place] [address], [place] [phone] * (ABNORMAL) Magnesium (07/16/2024 5:43 AM EST) Only the most recent of7 resultswithin the time period is included. [facility] Magnesium 1.5(L) 1.9 - 2.6 mg/dL LAB CHEMISTRY METHOD 07/16/2024 6:39 AM EST [facility] Blood Venous blood specimen / Unknown Venipuncture / Unknown 07/16/2024 5:43 AM EST 07/16/2024 6:09 AM EST Umm Wood NP LAB BLOOD OR DERABLES Performing Organization Address City/[facility]/ZIP Co de Phone Number [facility] [address] [place] [address], [place] [phone] * (ABNORMAL) Respiratory virus panel molecular study (07/04/2024 11:05 AM EST) [facility] Adenovirus Detection by PCR Not Detected Not Detected LAB MICROBIOLOGY METHOD 07/04/2024 12:28 PM [facility] Influenza A PCR Not Detected Not Detected LAB MICROBIOLOGY METHOD 07/04/2024 12:28 PM [facility] Influenza B PCR Not Detected Not Detected LAB MICROBIOLOGY METHOD 07/04/2024 12:28 PM [facility] Coronavirus 229E Not Detected Not Detected LAB MICROBIOLOGY METHOD 07/04/2024 12:28 PM [facility] Coronavirus HKU1 Not Detected Not Detected LAB MICROBIOLOGY METHOD 07/04/2024 12:28 PM [facility] Coronavirus OC43 Not Detected Not Detected LAB MICROBIOLOGY METHOD 07/04/2024 12:28 PM [facility] Coronavirus NL63 Not Detected Not Detected LAB MICROBIOLOGY METHOD 07/04/2024 12:28 PM [facility] Parainfluenza Virus 1 Not Detected Not Detected LAB MICROBIOLOGY METHOD 07/04/2024 12:28 PM [facility] Parainfluenza Virus 2 Not Detected Not Detected LAB MICROBIOLOGY METHOD 07/04/2024 12:28 PM [facility] Parainfluenza Virus 3 Not Detected Not Detected LAB MICROBIOLOGY METHOD 07/04/2024 12:28 PM [facility] Parainfluenza Virus 4 Not Detected Not Detected LAB MICROBIOLOGY METHOD 07/04/2024 12:28 PM [facility] RSV PCR Not Detected Not Detected LAB MICROBIOLOGY METHOD 07/04/2024 12:28 PM [facility] Human Metapneumovirus A and B Not Detected Not Detected LAB MICROBIOLOGY METHOD 07/04/2024 12:28 PM [facility] Rhinovirus/Entero virus Not Detected Not Detected LAB MICROBIOLOGY METHOD 07/04/2024 12:28 PM [facility] Bordetella pertussis Not Detected Not Detected LAB MICROBIOLOGY METHOD 07/04/2024 12:28 PM [facility] Bordetella parapertussis Not Detected Not Detected LAB MICROBIOLOGY METHOD 07/04/2024 12:28 PM [facility] Mycoplasma pneumo by PCR Not Detected Not Detected LAB MICROBIOLOGY METHOD 07/04/2024 12:28 PM [facility] Chlamydia pneumoniae Not Detected Not Detected LAB MICROBIOLOGY METHOD 07/04/2024 12:28 PM [facility] SARS COV-2 Detected(A ) Not Detected LAB MICROBIOLOGY METHOD 07/04/2024 12:28 PM [facility] Swab Both anterior nares / Unknown Non-blood Collection / Unknown 07/04/2024 11:05 AM EST 07/04/2024 11:13 AM EST [facility] - 07/04/2024 12:28 PM EST Testing was performed using the [employer] Respiratory Pathogen PCR Assay. All results must [...] YIP LAB MICROBIOLOGY - G ENERAL ORDERABLES [facility] [address] [place] [address], * (ABNORMAL) CBC auto differential (07/04/2024 8:51 AM EST) Only the most recent of8 resultswithin the time period is included. WBC 8.4 4.8 - 10.8 K/mcL LAB HEMETOLOGY METHOD 07/04/2024 9:08 AM [facility] RBC 3.10(L) 3.80 - 4.80 M/mcL LAB HEMETOLOGY METHOD 07/04/2024 9:08 AM [facility] Hemoglobin 9.1(L) 11.5 - 16.0 g/dL LAB HEMETOLOGY METHOD 07/04/2024 9:08 AM [facility] Hematocrit 28.3(L) 35.0 - 47.0 % LAB HEMETOLOGY METHOD 07/04/2024 9:08 AM [facility] MCV 92.5 79.0 - 98.0 FL LAB HEMETOLOGY METHOD 07/04/2024 9:08 AM [facility] MCH 29.7 27.0 - 32.0 pcg LAB HEMETOLOGY METHOD 07/04/2024 9:08 AM [facility] MCHC 32.2 32.0 - 37.0 g/dL LAB HEMETOLOGY METHOD 07/04/2024 9:08 AM [facility] RDW 16.1(H) 11.0 - 15.0 % LAB HEMETOLOGY METHOD 07/04/2024 9:08 AM [facility] Platelets 141 130 - 400 K/mcL LAB HEMETOLOGY METHOD 07/04/2024 9:08 AM [facility] MPV 9.3 7.0 - 11.0 FL LAB HEMETOLOGY METHOD 07/04/2024 9:08 AM [facility] NRBC 0.0 <1.0 % LAB HEMETOLOGY METHOD 07/04/2024 9:08 AM [facility] NRBC Absolute 0.00 <0.10 K/mcL LAB HEMETOLOGY METHOD 07/04/2024 9:08 AM [facility] Neutrophils Relative 75.7 % LAB HEMETOLOGY METHOD 07/04/2024 9:08 AM [facility] Lymphocytes Relative 13.4 % LAB HEMETOLOGY METHOD 07/04/2024 9:08 AM [facility] Monocytes Relative 7.1 % LAB HEMETOLOGY METHOD 07/04/2024 9:08 AM [facility] Eosinophils Relative 2.8 % LAB HEMETOLOGY METHOD 07/04/2024 9:08 AM [facility] Basophils Relative 0.2 % LAB HEMETOLOGY METHOD 07/04/2024 9:08 AM [facility] Immature Granulocytes Relative 0.8 % LAB HEMETOLOGY METHOD 07/04/2024 9:08 AM [facility] Neutrophils Absolute 6.38 1.50 - 7.00 K/mcL LAB HEMETOLOGY METHOD 07/04/2024 9:08 AM [facility] Lymphocytes Absolute 1.13 1.00 - 5.00 K/mcL LAB HEMETOLOGY METHOD 07/04/2024 9:08 AM EST [facility] Monocytes Absolute 0.60 0.20 - 1.00 K/mcL LAB HEMETOLOGY METHOD 07/04/2024 9:08 AM EST [facility] Eosinophils Absolute 0.24 0.00 - 0.50 K/mcL LAB HEMETOLOGY METHOD 07/04/2024 9:08 AM EST [facility] Basophils Absolute 0.02 0.00 - 0.20 K/mcL LAB HEMETOLOGY METHOD 07/04/2024 9:08 AM [facility] Immature Granulocytes Absolute 0.07(H) 0.00 - 0.03 K/mcL LAB HEMETOLOGY METHOD 07/04/2024 9:08 AM [facility] Blood Venous blood specimen / Unknown Venipuncture / Unknown 07/04/2024 8:51 AM EST 07/04/2024 8:57 AM EST Darline Lara DO LAB BLOOD ORDERAB LES Performing Organization Address City/[facility]/ZIP Co de Phone Number [facility] [address] [place] [address], [place] [phone] * Occult blood stool, guaiac (07/03/2024 2:49 PM EST) Occult Blood, Stool #1 Negative Negative 07/03/2024 3:29 PM EST [facility] Stool Non-blood Collection / Unknown 07/03/2024 2:49 PM EST 07/03/2024 2:49 PM EST Umm Wood NP LAB BODY FLU IDS AND STOOLS ORDERABLES Performing Organization Address City/[facility]/ZIP Co de Phone Number [facility] [address] [place] [address], [place] [phone] * (ABNORMAL) Urinalysis with reflex microscopic and culture (07/02/2024 3:30 PM EST) [facility] Specific [place] Urine 1.009 1.003 - 1.030 LAB URINALYSIS - AUTOMATED METHOD 07/02/2024 4:08 PM [facility] pH, Urine 7.5 5.0 - 8.0 pH LAB URINALYSIS - AUTOMATED METHOD 07/02/2024 4:08 PM [facility] Leukocytes, Urine Moderate(A) Negative LAB URINALYSIS - AUTOMATED METHOD 07/02/2024 4:08 PM [facility] Nitrite, Urine Negative Negative LAB URINALYSIS - AUTOMATED METHOD 07/02/2024 4:08 PM [facility] Protein, Urine Negative <=Trace mg/dL LAB URINALYSIS - AUTOMATED METHOD 07/02/2024 4:08 PM [facility] Glucose, Urine Negative Negative mg/dL LAB URINALYSIS - AUTOMATED METHOD 07/02/2024 4:08 PM [facility] Ketones, Urine Negative Negative mg/dL LAB URINALYSIS - AUTOMATED METHOD 07/02/2024 4:08 PM [facility] Urobilinogen , Urine 1.0 0.2 - 1.0 mg/dL LAB URINALYSIS - AUTOMATED METHOD 07/02/2024 4:08 PM [facility] Bilirubin, Urine Negative Negative LAB URINALYSIS - AUTOMATED METHOD 07/02/2024 4:08 PM [facility] Blood, Urine Negative Negative LAB URINALYSIS - AUTOMATED METHOD 07/02/2024 4:08 PM [facility] RBC, Urine 3.1 0 - 4 /HPF LAB URINALYSIS - AUTOMATED METHOD 07/02/2024 4:08 PM [facility] WBC, Urine 79.0(H) 0 - 4 /HPF LAB URINALYSIS - AUTOMATED METHOD 07/02/2024 4:08 PM [facility] Squamous Epithelial, Urine 4 0 - 60 /LPF LAB URINALYSIS - AUTOMATED METHOD 07/02/2024 4:08 PM [facility] Non-Squamous Epithelial, Urine 2-5 TRANSITIONAL EPI /LPF LAB URINALYSIS - AUTOMATED METHOD 07/02/2024 4:08 PM [facility] Bacteria, Urine Moderate(A) Negative /HPF LAB URINALYSIS - AUTOMATED METHOD 07/02/2024 4:08 PM [facility] Hyaline Casts, Urine 0.0 0 - 3 /LPF LAB URINALYSIS - AUTOMATED METHOD 07/02/2024 4:08 PM [facility] Urine Urinary bladder structure / Unknown Non-blood Collection / Unknown 07/02/2024 3:30 PM EST 07/02/2024 3:35 PM EST [facility] LAB URINE ORDERAB LES Performing Organization Address City/[facility]/ZIP Co de Phone Number [facility] [address] [place] [address], [place] [phone] * Flores urine culture tube (07/02/2024 3:30 PM EST) Extra Tube Hold for add-ons. 07/02/2024 5:02 PM [facility] Comment:Auto resulted. Urine Urinary bladder structure / Unknown Non-blood Collection / Unknown 07/02/2024 3:30 PM EST 07/02/2024 3:35 PM EST [facility] LAB URINE ORDERAB LES Performing Organization Address City/[facility]/ZIP Co de Phone Number [facility] [address] [place] [address], [place] [phone] * (ABNORMAL) Culture urine (07/02/2024 3:30 PM EST) Culture, Urine >100,000 CFU/mL Escherichia coli(A) ANAY 07/04/2024 8:56 AM [facility] Urine Urinary bladder structure [...] Lara DO LAB MICROBIOLOGY - GENERAL ORDERABLES [facility] [address] [place] [address], * Lavender tube (06/28/2024 5:53 AM EST) Extra Tube Hold for add-ons. 06/28/2024 8:01 AM EST [facility] Comment:Auto resulted. Blood Venous blood specimen / Unknown Venipuncture / Unknown 06/28/2024 5:53 AM EST 06/28/2024 6:28 AM EST Darline Lara LAB BLOOD ORDERAB LES [facility] [address] [place] [address], [place] [phone] * (ABNORMAL) RBC morphology review (06/26/2024 5:55 AM EST) [facility] Rbc Morphology Consistent with indices Consistent with indices, Normal for Kimberly LAB HEMETOLOGY METHOD 06/26/2024 7:18 AM EST [facility] Platelet Morphology - WAM See Note(A) Normal LAB HEMETOLOGY METHOD 06/26/2024 7:18 AM EST [facility] Comment:PLT: Normal Blood Venous blood specimen / Unknown Venipuncture / Unknown 06/26/2024 5:55 AM EST 06/26/2024 6:16 AM EST Amber YIP LAB BLOOD ORDERABLES [facility] [address] [place] [address], [place] [phone] * Prothrombin time with INR (06/26/2024 5:55 AM EST) [facility] Protime 10.9 10.6 - 13.9 sec LAB COAGULATION METHOD 06/26/2024 7:21 AM EST [facility] INR 0.9 LAB COAGULATION METHOD 06/26/2024 7:21 AM [facility] Blood Venous blood specimen / Unknown Venipuncture / Unknown 06/26/2024 5:55 AM EST 06/26/2024 6:16 AM EST Darline Lara DO LAB BLOOD ORDERAB LES [facility] [address] [place] [address], [place] [phone] * POCT Glucose, blood (06/25/2024 12:11 PM EST) Only the most recent of51 resultswithin the time period is included. [facility] Glucose POCT 108 70 - 199 mg/dL 06/25/2024 12:11 PM EST [facility] Comment: Fasting Reference Range: ? 70-99 mg/dL Non-Fasting Reference Range: 70-199 mg/dL Blood Capillary blood specimen / Unknown 06/25/2024 12:11 PM EST 06/25/2024 12:12 PM EST Ramirez Hall MD LAB POINT OF CARE TE ST DOCKED DEVICE UNSOLICITED RESULTS Performing Organization Address City/[facility]/ZIP Co de Phone Number [facility] [address] [place] [address], * Phosphorus (06/15/2024 5:27 AM EST) Only the most recent of5 resultswithin the time period is included. Pathologist [facility] Phosphorus 2.7 2.5 - 4.5 mg/dL LAB CHEMISTRY METHOD 06/15/2024 6:16 AM EST [facility] Blood Venous blood specimen / Unknown Venipuncture / Unknown 06/15/2024 5:27 AM EST 06/15/2024 5:42 AM EST Alice Rice NP LAB BLOOD ORDERABLES Performing Organization Address [facility]/ZIP Co de Phone Number [facility] [address] [place] [address], [place] [phone] * CT Thoracic Spine wo Contrast (06/14/2024 5:26 PM EST) Only the most recent of2 resultswithin the time period is included. Anatomical Region Laterality Modality Spine, T-spine Computed Tomogra phy 06/14/2024 5:59 PM EST Impressions 06/14/2024 6:04 PM EST Posterior decompression and fusion with drain present. ??No fluid collection. ??If further evaluation is indicated consider MRI. Left thyroid lobe nodule can be followed up with ultrasound. Bilateral pleural effusions. Report reviewed and signed by : Dr. Chetan Barclay on 06/14/2024 6:04 PM. Workstation Name - [id number] -------- FINAL REPORT -------- Dictated By: Chetan Barclay Dictated Date: 06/14/2024 17:59 ET Assigned Physician: Chetan Barclay Reviewed and Electronically Signed By: Chetan Barclay Signed Date: 06/14/2024 18:04 ET Workstation ID: [id number] Transcribed By: Self Edit Transcribed Date: 06/14/2024 17:59 ET Narrative 06/14/2024 6:04 PM EST PROCEDURE: ??CT THORACIC SPINE WO CONTRAST HISTORY: 68 years Female Spinal fusion, thoracic, follow up s/p spinal fusion COMPARISON: ??06/11/2024 TECHNIQUE: CT THORACIC SPINE WO CONTRAST. Coronal and sagittal reformatted images were obtained. Three-dimensional volume rendering is generated on an independent workstation. FINDINGS: Streak artifact from orthopedic hardware limits evaluation. Facet alignment is maintained. No fracture. Vertebral body alignment is maintained. T5-T8 posterior decompression and fusion. ??No obvious hardware complications. ??No fluid collection is seen, drain is present terminating along the posterior thecal sac at T5-T6.Posterior skin ronald are noted. Osteophyte at T6-T7 causes moderate spinal canal stenosis. ?? Severe degenerative change lower cervical spine. ??Multilevel spondylolisthesis in the cervical spine. Left thyroid lobe hypodense nodule measures 2 cm. Small bilateral pleural effusions. ??Visualized heart is enlarged. Procedure Note Chetan Barclay MD - 06/14/2024 PROCEDURE: CT THORACIC SPINE WO CONTRAST HISTORY: 68 years Female Spinal fusion, thoracic, follow up s/p spinal fusion COMPARISON: 06/11/2024 TECHNIQUE: CT THORACIC SPINE WO CONTRAST. Coronal and sagittal reformattedimages were obtained. Three-dimensional volume rendering is generated nery independent workstation. FINDINGS: Streak artifact from orthopedic hardware limits evaluation. Facet alignment is maintained. No fracture. Vertebral body alignment ismaintained. T5-T8 posterior decompression and fusion. No obvious hardwarecomplications. No fluid collection is seen, drain is present terminatingalong the posterior thecal sac at T5-T6.Posterior skin ronald are noted. Osteophyte at T6-T7 causes moderate spinal canal stenosis. Severe degenerative change lower cervical spine. Multilevelspondylolisthesis in the cervical spine. Left thyroid lobe hypodense nodule measures 2 cm. Small bilateral pleural effusions. Visualized heart is enlarged. IMPRESSION: Posterior decompression and fusion with drain present. No fluidcollection. If further evaluation is indicated consider MRI. Left thyroid lobe nodule can be followed up with ultrasound. Bilateral pleural effusions. Report reviewed and signed by : Dr. Chetan Barclay on 06/14/2024 6:04 PM.Workstation Name - [id number] -------- FINAL REPORT -------- Dictated By: Chetan Barclay Dictated Date: 06/14/2024 17:59 ET Assigned Physician: Chetan Barclay Reviewed and Electronically Signed By: Chetan Barclay Signed Date: 06/14/2024 18:04 ET Workstation ID: [id number] Transcribed By: Self Edit Transcribed Date: 06/14/2024 17:59 ET Lan YIP IMG CT PROCEDURES * (ABNORMAL) Calcium, ionized (06/12/2024 3:48 AM EST) Only the most recent of2 resultswithin the time period is included. Calcium Ionized 1.10(L) 1.19 - 1.35 mg/dL LAB BLOOD GAS METHOD 06/12/2024 4:24 AM EST [facility] Blood Venous blood specimen / Unknown Venipuncture / Unknown 06/12/2024 3:48 AM EST 06/12/2024 4:17 AM EST Emilio YIP LAB BLOOD ORDERA BLES [facility] [address] [place] [address], [place] [phone] * (ABNORMAL) Lactate, with reflex (06/11/2024 8:52 PM EST) LACTIC ACID 3.2(H) 0.5 - 2.2 mmol/L LAB BLOOD GAS METHOD 06/11/2024 9:05 PM EST [facility] Blood Venous blood specimen / Unknown Venipuncture / Unknown 06/11/2024 8:52 PM EST 06/11/2024 9:00 PM EST Emilio YIP LAB BLOOD ORDERA BLES [facility] [address] [place] [address], * [place] CATHETERIZATION/CANNULATION ARTERIAL SAMPLE/MONITORING/TRANSFUSION PERC (06/11/2024 8:43 PM EST) Narrative Emilio Lazar PA - 06/11/2024 8:43 PM EST THEODORA Mendoza ? 06/11/2024 ??8:51 PM Insert arterial line Date/Time: 06/11/2024 8:43 PM Performed by: THEODORA Mendoza Authorized by: THEODORA Mendoza ?? Consent: ??Consent obtained: ??Verbal ??Consent given by: ??Patient ??Risks discussed: ??Bleeding, repeat procedure and pain [place] protocol: ??Imaging studies available: yes (bedside US) ?Site/side marked: yes (right) ?Immediately prior to procedure, a time out was called: yes (bedside timeout perfromed with CRISTIANA Guo) ?Patient identity confirmed: ??Arm band and verbally with patient (timeout identified patient and ) Indications: ??Indications: hemodynamic monitoring ?? Pre-procedure details: ??Skin preparation: ??Chlorhexidine Sedation: ??Sedation type: ??None Anesthesia: ??Anesthesia method: ??Local infiltration ??Local anesthetic: ??Lidocaine 1% w/o epi (1cc) Procedure details: ??Location: ??R radial ??Needle gauge: ??20 G ??Placement technique: ??Seldinger and ultrasound guided ??Number of attempts: ??2 Post-procedure details: ??Procedure completion: ??Procedure terminated electively by provider Comments: ?? Patient prepped and draped in usual sterile fashion. Right radial arterial line placement attempted x2 with US guidance and Seldinger technique. Pulsatile Blood filled chamber of arrow catheter twice, minimal resistance upon advancement of arrow guidewire, and arrow catheter on first attempt. Upon flushing of line after aspiration, line infiltrated and was removed. On second attempt, access was lost upon advancing white arrow catheter. Left arterial radial line attempted twice using same steps as above with unsuccessful attempt x2 after arrow chamber filled with pulsatile blood. Direct pressure held after each failed attempt to ensure hemostasis. Signed: Emilio Lazar PA-C 06/11/24 8:50 PM EST Emilio YIP IV THERAPY ORDER JOSIE * CT Surg Plan Thoracic Spine wo Contrast(Statistics) (06/11/2024 7:00 PM EST) Narrative RIS PACS/VR - 07/11/2024 9:45 AM EST This order has been auto-finalized and does not contain a result. Ramirez Hall MD IMG CT PROCEDURES RIS PACS/VR * (ABNORMAL) POCT VENOUS NA, K, HH (06/11/2024 5:18 PM EST) Sodium Venous POCT 131(L) 135 - 145 mmol/L 06/11/2024 6:01 PM EST [facility] Potassium Venous POCT 4.0 3.5 - 5.1 mmol/L 06/11/2024 6:01 PM EST [facility] Hemoglobin Venous POCT 12.6 12.5 - 16.0 g/dL 06/11/2024 6:01 PM EST [facility] Hematocrit Venous POCT 37 37 - 47 % 06/11/2024 6:01 PM EST [facility] Blood Venous blood specimen / Unknown 06/11/2024 5:18 PM EST 06/11/2024 6:03 PM EST Ramirez Hall MD LAB POINT OF CARE TE ST DOCKED DEVICE UNSOLICITED RESULTS [facility] ([facility]) [facility] [address] [place] [address], [place] [phone] * Tissue exam (06/11/2024 4:37 PM EST) Only the most recent of3 resultswithin the time period is included. Final Diagnosis Bone and soft tissue, thoracic spine, T5-T8 excision with decompression: Fragments of benign bone and cartilage with focus of necrotic bone. No malignancy identified. Note: History of previous spine surgeries and specimens at [facility] [id number] and [id number] noted. The current specimen shows disc material and bone with calcifications and small fragment of bone with bone necrosis. These findings can be related to previous history. No malignancy is identified. This case was sent for consultation to [facility], see consultation report below. The following report is issued, as from [facility], where the specimen(s) have been received and slides reviewed. FINAL DIAGNOSIS Epidural calcification, excision: - Fragment of bone and endplate/disc material with focal osteonecrosis. See comment. Diagnosis Comment Thank you for sending in consultation this calcified epidural mass from a 68-year-old female. Per the included consultation note, the patient has had a series of back surgeries involving multiple spinal levels, including a recent T6-7 laminectomy that was complicated by paraplegia and loss of sensation in the right leg. Imaging reportedly showed a large T6-7 intracanal mass. Sections show fragments of bone with attached endplate and disc material. The disc material is focally calcified. In one small fragment, there is osteonecrosis with creeping substitution and fibrosis. There is no evidence of a neoplastic process. This tissue in the spinal canal is presumably the result of either a disc herniation or a small posterior fracture with retropulsion. A complete report, as issued by [facility] has been scanned into the ? media? tab within this patient's electronic medical record (EPIC); please see full scanned report for additional data regarding testing methodology, reference ranges, and possible clinical significance. 06/21/2024 4:22 PM EST [facility] ([facility]) [facility] Gross Description A. Spine, Thoracic, EPIDURAL CALCIFICATION: Received in formalin labelled epidural calcification is a 1.3 x 1.2 x 0.4 cm aggregate of roberts-yellow gritty calcified fragments of tissues which are filtered and entirely submitted in A1, multiple pieces following decalcification. GE 06/12/2024 06/21/2024 4:22 PM EST [facility] Disclaimer The technical components of this case were performed at [address] [address] CLIA # [id number] 06/21/2024 4:22 PM EST [facility] Tissue Thoracic spine structure / Unknown 06/11/2024 4:37 PM EST 06/12/2024 6:55 AM EST Ramriez Hall MD LAB PATHOLOGY ORDERA BRIDGETS [facility] [address] [place] [address], * TH AN ENDOTRACHEAL(NO CHARGE) (06/11/2024 2:00 PM EST) Narrative Denise Rosado CRNA - 06/11/2024 2:00 PM EST Denise Rosado CRNA ? 06/11/2024 ??2:01 PM General Information and Staff Patient location during procedure: OR Resident/POSTING MACHINE OPERATOR: Denise Rosado CRNA Performed by: Denise Rosado CRNA Authorized by: Magnus Villa MD ?? Intubation Airway not difficult Urgency: elective Final Airway Details Successful airway: ETT Cuffed: yes Successful intubation technique: direct laryngoscopy Endotracheal tube insertion site: oral Blade: Kellie Blade size: #3 ETT size (mm): 7.0 Cormack-Lehane Classification: grade I - full view of glottis Placement verified by: chest auscultation Cuff volume (mL): 10 Measured from: lips ETT to lips (cm): 21 Number of attempts at approach: 1 Ventilation between attempts: BVMFinal airway type: endotracheal airway Indications and Patient Condition Indications for airway management: anesthesia Spontaneous ventilation: present Sedation level: Yes Preoxygenated: yes Soft Tissue Damage: No Dentition Unchanged: Yes Patient position: neutral MILS not maintained throughout Mask difficulty assessment: 1 - vent by mask Magnus Villa MD ANESTHESIA ORDERA BLES * (ABNORMAL) Urinalysis with microscopic (06/11/2024 1:21 PM EST) Color, Urine Yellow Yellow, Colorless LAB URINALYSIS - AUTOMATED METHOD 06/11/2024 1:47 PM [facility] Clarity, Urine Clear Clear LAB URINALYSIS - AUTOMATED METHOD 06/11/2024 1:47 PM [facility] Specific [place] Urine 1.015 1.005 - 1.030 LAB URINALYSIS - AUTOMATED METHOD 06/11/2024 1:47 PM [facility] pH, Urine 8.0(A) 5.0 - 8.0 pH LAB URINALYSIS - AUTOMATED METHOD 06/11/2024 1:47 PM [facility] Leukocytes, Urine Moderate(A) Negative WBCs/mcL LAB URINALYSIS - AUTOMATED METHOD 06/11/2024 1:47 PM [facility] Nitrite, Urine Positive(A) Negative LAB URINALYSIS - AUTOMATED METHOD 06/11/2024 1:47 PM [facility] Protein, Urine Negative Negative, Trace mg/dL LAB URINALYSIS - AUTOMATED METHOD 06/11/2024 1:47 PM [facility] Glucose, Urine Negative Negative mg/dL LAB URINALYSIS - AUTOMATED METHOD 06/11/2024 1:47 PM [facility] Ketones, Urine Negative Negative mg/dL LAB URINALYSIS - AUTOMATED METHOD 06/11/2024 1:47 PM [facility] Blood, Urine Trace Negative, Trace mg/dL LAB URINALYSIS - AUTOMATED METHOD 06/11/2024 1:47 PM [facility] RBC, Urine 8(H) 0 - 3 /HPF LAB URINALYSIS - AUTOMATED METHOD 06/11/2024 1:47 PM [facility] WBC, Urine 170(H) 0 - 5 /HPF LAB URINALYSIS - AUTOMATED METHOD 06/11/2024 1:47 PM EST [facility] Bacteria, Urine Present(A) Not Present /HPF LAB URINALYSIS - AUTOMATED METHOD 06/11/2024 1:47 PM EST [facility] Squamous Epithelial, Urine 0 0 - 5 /HPF LAB URINALYSIS - AUTOMATED METHOD 06/11/2024 1:47 PM EST [facility] Mucus, Urine Present(A) Not Present /HPF LAB URINALYSIS - AUTOMATED METHOD 06/11/2024 1:47 PM EST [facility] Urine Urine specimen from urinary conduit / Unknown Non-blood Collection / Unknown 06/11/2024 1:21 PM EST 06/11/2024 1:27 PM EST Ramirez Hall MD LAB URINE ORDERABLES [facility] [address] [place] [address], [place] [phone] * SST tube (06/10/2024 5:31 AM EST) Extra Tube Hold for add-ons. 06/10/2024 8:01 AM EST [facility] Comment:Auto resulted. Blood Venous blood specimen / Unknown Venipuncture / Unknown 06/10/2024 5:31 AM EST 06/10/2024 6:37 AM EST Darline Lara DO LAB BLOOD ORDERAB LES [facility] [address] [place] [address], [place] [phone] * XR Abdomen 1 View (06/07/2024 2:34 PM EST) Anatomical Region Laterality Modality Body Radiographic Daisy ging 06/08/2024 7:51 AM EST Impressions 06/08/2024 7:53 AM EST Nonspecific nonobstructive bowel gas pattern. There are gas-filled nondilated loops of small bowel as well as moderate gaseous distention of the stomach. Code 79059 -------- FINAL REPORT -------- Dictated By: Ryan Schroeder Dictated Date: 06/08/2024 07:51 ET Assigned Physician: Ryan Schroeder Reviewed and Electronically Signed By: Ryan Schroeder Signed Date: 06/08/2024 07:53 ET Workstation ID: [id number] Transcribed By: Self Edit Transcribed Date: 06/08/2024 07:51 ET Narrative 06/08/2024 7:53 AM EST HISTORY: The patient is a 68-year-old female with abdominal distention. FINDINGS: Supine radiographs of the abdomen, without previous for comparison, demonstrate that the patient has undergone previous posterior spinal fusion at L4-S1. The patient is seen to have undergone previous total left hip replacement surgery. A catheter is noted in the pelvis, likely in the urinary bladder. There are degenerative changes and moderate levoscoliosis of the lumbar spine. The bowel gas pattern is nonobstructive. Multiple gas-filled nondilated loops of small bowel are present, and there is moderate gaseous distention of the stomach, a nonspecific pattern. There is a moderate amount of fecal material in the colon. No mass or radiopaque calculus is seen. Procedure Note Ryan Schroeder MD - 06/08/2024 HISTORY: The patient is a 68-year-old female with abdominal distention. FINDINGS: Supine radiographs of the abdomen, without previous forcomparison, demonstrate that the patient has undergone previous posteriorspinal fusion at L4-S1. The patient is seen to have undergone previoustotal left hip replacement surgery. A catheter is noted in the pelvis,likely in the urinary bladder. There are degenerative changes and moderatelevoscoliosis of the lumbar spine. The bowel gas pattern isnonobstructive. Multiple gas-filled nondilated loops of small bowel arepresent, and there is moderate gaseous distention of the stomach, anonspecific pattern. There is a moderate amount of fecal material in thecolon. No mass or radiopaque calculus is seen. IMPRESSION: Nonspecific nonobstructive bowel gas pattern. There are gas-fillednondilated loops of small bowel as well as moderate gaseous distention ofthe stomach. Code 07000 -------- FINAL REPORT -------- Dictated By: Ryan Schroeder Dictated Date: 06/08/2024 07:51 ET Assigned Physician: Ryan Schroeder Reviewed and Electronically Signed By: Ryan Schroeder Signed Date: 06/08/2024 07:53 ET Workstation ID: [id number] Transcribed By: Self Edit Transcribed Date: 06/08/2024 07:51 ET [facility] IMG XR PRO CEDURES * XR Spine 1 View (06/01/2024 10:02 AM EST) Only the most recent of2 resultswithin the time period is included. Anatomical Region Laterality Modality Spine Radio Fluoroscop y 06/01/2024 10:1 1 AM EST Narrative 06/01/2024 10:12 AM EST Fluoroscopic spot radiographs obtained during thoracic spine surgery are submitted. No radiologist consultation was requested or provided during this procedure and there is no radiologist professional charge. This report is generated for documentation purposes only. The dose-area product for this procedure was 0.08597 mGy*m2. PQRI CPT II G9500 -------- FINAL REPORT -------- Dictated By: Ryan Schroeder Dictated Date: 06/01/2024 10:11 ET Assigned Physician: Ryan Schroeder Reviewed and Electronically Signed By: Ryan Schroeder Signed Date: 06/01/2024 10:12 ET Workstation ID: [id number] Transcribed By: Self Edit Transcribed Date: 06/01/2024 10:11 ET Procedure Note Ryan Schroeder MD - 06/01/2024 Fluoroscopic spot radiographs obtained during thoracic spine surgery aresubmitted. No radiologist consultation was requested or provided duringthis procedure and there is no radiologist professional charge. Thisreport is generated for documentation purposes only. The dose-area product for this procedure was 0.77789 mGy*m2. PQRI CPT II G9500 -------- FINAL REPORT -------- Dictated By: Ryan Schroeder Dictated Date: 06/01/2024 10:11 ET Assigned Physician: Ryan Schroeder Reviewed and Electronically Signed By: Ryan Schroeder Signed Date: 06/01/2024 10:12 ET Workstation ID: [id number] Transcribed By: Self Edit Transcribed Date: 06/01/2024 10:11 ET Anel Markham MD IMG XR PROCEDURES * TH AN ENDOTRACHEAL(NO CHARGE) (06/01/2024 9:10 AM EST) Kenan Muse CRNA - 06/01/2024 9:10 AM EST Kenan Augustin CRNA ? 06/01/2024 ??9:11 AM General Information and Staff Patient location during procedure: OR Performed by: Kenan Augustin CRNA Authorized by: Js Stokes MD ?? Intubation Airway not difficult Urgency: elective Final Airway Details Successful airway: ETT Cuffed: yes Facilitating devices/methods: intubating stylet and anterior pressure/BURP Endotracheal tube insertion site: oral Blade: Kellie Blade size: #3 ETT size (mm): 7.5 Placement verified by: chest auscultation and capnometry Measured from: lips ETT to lips (cm): 20 Number of attempts at approach: 1 Ventilation between attempts: none Number of other approaches attempted: 0Final airway type: endotracheal airway Indications and Patient Condition Indications for airway management: anesthesia Spontaneous ventilation: present Sedation level: Yes Preoxygenated: yes Soft Tissue Damage: No Dentition Unchanged: Yes Patient position: neutral MILS maintained throughout Mask difficulty assessment: 1 - vent by mask Start Time: 06/01/2024 8:46 AMStop Time: 06/01/2024 8:46 AM Js Stokes MD ANESTHESIA ORDERABLE S * MR Thoracic Spine wo and w Contrast (05/31/2024 6:34 PM EST) Anatomical Region Laterality Modality T-spine, Spine Magnetic Resonan ce 05/31/2024 7:27 PM EST Impressions 05/31/2024 7:27 PM EST Impression: 1. Extra-axial lesion seen in the anterior spinal canal at the level of T6-7 measuring a 1.2 x 1.2 x 2.0 cm is partially calcified and demonstrates mild enhancement. Lesion could potentially represent a meningioma. Lesion abuts, flattens and displaces the spinal cord dorsally. There is severe narrowing of the thecal sac and cord with AP dimension of 3 mm. Spinal cord immediately distal to the area of severe narrowing demonstrates increased T2 signal centrally without enhancement and this may be reflective of cord edema or developing syrinx. No enhancement of the spinal cord. No intrinsic cord lesions. 2. Status post recent T6 and T7 laminectomies. Dorsal fluid collection within the laminectomy defect abuts the thecal sac ventrally and extends dorsally into the paraspinous soft tissues measuring 2.5 x 1.8 x 4.3 cm and may represent postoperative seroma, hematoma, abscess or pseudomeningocele. Additional fluid collection in the subcutaneous fat of the back in the midline measuring 1.3 x 2.4 x 6.9 cm may represent postoperative soft tissue seroma, hematoma or abscess. 3. 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 This document has been electronically signed by: Mishel Boo MD on 05/31/2024 19:27:41 Narrative 05/31/2024 7:27 PM EST Exam: MRI of the thoracic spine with and without contrast. Procedure: 15 mL of Dotarem. Comparison: Cord compression Findings: Status post recent T6 and T7 laminectomies. Dorsal fluid collection within the laminectomy defect abuts the thecal sac ventrally and extends dorsally into the paraspinous soft tissues measuring 2.5 x 1.8 x 4.3 cm. Fluid collection may represent postoperative seroma, hematoma, abscess or pseudomeningocele. Fluid collection in the subcutaneous fat of the back in the midline measuring 1.3 x 2.4 x 6.9 cm on axial image 5 and sagittal image 12 may represent postoperative seroma, hematoma or abscess. Extra-axial lesion seen in the anterior spinal canal at the level of T6-7 measuring a 1.2 x 1.2 x 2.0 cm is partially calcified and demonstrates mild enhancement. Lesion could potentially represent a meningioma. Lesion abuts, flattens and displaces the spinal cord dorsally. There is severe narrowing of the thecal sac and cord with AP dimension of 3 mm seen on series 10, image 10. Spinal cord immediately distal to the area of severe narrowing demonstrates increased T2 signal centrally without enhancement and this may be reflective of cord edema or syrinx. No enhancement of the spinal cord. No intrinsic cord lesions. Alignment of the thoracic spine is anatomic. Vertebral body height is normal. Degenerative endplate changes and osteophytosis seen at T4 through L1. Loss of intervertebral disc height and signal at T3-4 through T10-11. No acute thoracic spine fractures. Procedure Note Mishel Boo MD - 05/31/2024 Exam: MRI of the thoracic spine with and without contrast. Procedure: 15 mL of Dotarem. Comparison: Cord compression Findings: Status post recent T6 and T7 laminectomies. Dorsal fluid collection within the laminectomy defect abuts the thecalsac ventrally and extends dorsally into the paraspinous soft tissuesmeasuring 2.5 x 1.8 x 4.3 cm. Fluid collection may represent postoperative seroma, hematoma, abscess or pseudomeningocele. Fluid collection in the subcutaneous fat of the back in the midline measuring 1.3 x 2.4 x 6.9 cm on axial image 5 and sagittal image 12 may represent postoperative seroma, hematoma or abscess. Extra-axial lesion seen in the anterior spinal canal at the level ofT6-7 measuring a 1.2 x 1.2 x 2.0 cm is partially calcified and demonstrates mild enhancement. Lesion could potentially represent a meningioma.Lesion abuts, flattens and displaces the spinal cord dorsally. There is severe narrowing of the thecal sac and cord with AP dimension of 3 mm seen on series 10, image 10. Spinal cord immediately distal to the area of severe narrowing demonstrates increased T2 signal centrally without enhancement and this may be reflective of cord edema or syrinx. No enhancement of the spinal cord. No intrinsic cord lesions. Alignment of the thoracic spine is anatomic. Vertebral body height is normal. Degenerative endplate changes and osteophytosis seen at T4 through L1. Loss of intervertebral disc height and signal at T3-4 through T10-11. No acute thoracic spine fractures. IMPRESSION: Impression: 1. Extra-axial lesion seen in the anterior spinal canal at the level of T6-7 measuring a 1.2 x 1.2 x 2.0 cm is partially calcified and demonstrates mild enhancement. Lesion could potentially represent a meningioma. Lesion abuts, flattens and displaces the spinal corddorsally. There is severe narrowing of the thecal sac and cord with AP dimensionof 3 mm. Spinal cord immediately distal to the area of severe narrowing demonstrates increased T2 signal centrally without enhancement and this may be reflective of cord edema or developing syrinx. No enhancement of the spinal cord. No intrinsic cord lesions. 2. Status post recent T6 and T7 laminectomies. Dorsal fluid collection within the laminectomy defect abuts the thecal sac ventrally and extends dorsally into the paraspinous soft tissues measuring 2.5 x 1.8 x 4.3 cm and may represent postoperative seroma, hematoma, abscess or pseudomeningocele. Additional fluid collection in the subcutaneous fatof the back in the midline measuring 1.3 x 2.4 x 6.9 cm may represent postoperative soft tissue seroma, hematoma or abscess. 3. 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 This document has been electronically signed by: Mishel Boo MD on 05/31/2024 19:27:41 [facility] IMG MRI PROCEDURES * Creatinine serum (05/25/2024 4:13 PM EST) Creatinine 0.70 0.50 - 1.10 mg/dL LAB CHEMISTRY METHOD 05/25/2024 5:14 PM EST [facility] eGFR 95 >=60 mL/min/1. 73m2 LAB CHEMISTRY METHOD 05/25/2024 5:14 PM EST [facility] Comment:Calculation based on the??Chronic Kidney Disease Epidemiology Collaboration (CKD-EPI) equation refit??without adjustment for race. Blood Venous blood specimen / Unknown Venipuncture / Unknown 05/25/2024 4:13 PM EST 05/25/2024 4:50 PM EST Cal YIP LAB BLOOD ORDERABLES [facility] [address] [place] [address], * TH AN ENDOTRACHEAL(NO CHARGE) (05/24/2024 1:30 PM EST) Narrative Timoteo Dexter CRNA - 05/24/2024 1:30 PM EST Timoteo Dexter CRNA ? 05/24/2024 ??1:31 PM General Information and Staff Patient location during procedure: OR Resident/POSTING MACHINE OPERATOR: Timoteo Dexter CRNA Performed: resident/POSTING MACHINE OPERATOR/CAA Performed by: Timoteo Dexter CRNA Authorized by: Sang Dee, DO ?? Intubation Additional Comments Atraumatic Intubation Airway not difficult Urgency: elective Final Airway Details Successful airway: ETT Cuffed: yes Successful intubation technique: direct laryngoscopy Facilitating devices/methods: intubating stylet Blade: Kellie Blade size: #3 ETT size (mm): 7.5 Cormack-Lehane Classification: grade I - full view of glottis Placement verified by: chest auscultation and capnometry Measured from: teeth ETT to teeth (cm): 22 Number of attempts at approach: 1Final airway type: endotracheal airway Indications and Patient Condition Indications for airway management: anesthesia and airway protection Spontaneous ventilation: present Sedation level: Yes Preoxygenated: yes Soft Tissue Damage: No Dentition Unchanged: Yes Patient position: sniffing MILS maintained throughout Mask difficulty assessment: 2 - vent by mask + OA or adjuvant +/- NMBA Start Time: 05/24/2024 12:36 PM Sang Dee DO ANESTHESIA ORDERABLE S * ECG 12 lead - Procedural (No Charge) (05/24/2024 10:53 AM EST) Ventricular Rate ECG 56 BPM GEMUSE Atrial Rate 56 BPM GEMUSE P-R Interval 196 ms GEMUSE QRS Duration 84 ms GEMUSE Q-T Interval 424 ms GEMUSE QTc 409 ms GEMUSE P Wave [place] 103 degrees GEMUSE R [place] 8 degrees GEMUSE T [place] 28 degrees GEMUSE ECG Interpretation Sinus bradycardia with occasional Premature atrial complexes Otherwise normal ECG When compared with ECG of 21-JUN-2021 15:57, No significant change was found Confirmed by MD Chava, Mk ([id number]) on 05/25/2024 6:59:55 AM GEMUSE 05/24/2024 10:5 3 AM EST 05/25/2024 6:59 AM EST Anel Markham MD ECG ORDERABLES GEMUSE from Last 3 Months Additional Health Concerns Infection Onset Date Last Indicated COVID-19 07/04/2024 07/04/2024 Advance Directives Documents on File Type Date 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 Do not modify or discontinue any currently active code status orders. * No CPR/Do Not Intubate Date Activated Date Inactivated Comments 06/10/2024 8:24 PM 06/25/2024 4:[address] atus was ascertained in the following way: Code status discussion: discussion with patient To update the patient's code status, place a code status order. Do not modify or discontinue any currently active code status orders. * Full Code - Default Date Activated Date Inactivated Comments 06/10/2024 6:19 PM 06/10/2024 8:24 PM This is or morgan is used when code status has not been discussed with the patient, or code status is otherwise unknown/unconfirmed To update the patient's code status, place a code status order. Do not modify or discontinue any currently active code status orders. * Full Code - Default Date Activated Date Inactivated Comments 05/30/2024 7:55 PM 06/01/2024 8:11 AM This is or morgan is used when code status has not been discussed with the patient, or code status is otherwise unknown/unconfirmed To update the patient's code status, place a code status order. Do not modify or discontinue any currently active code status orders. * Full Code - Default Date Activated Date Inactivated Comments 05/24/2024 4:44 PM 05/30/2024 6:54 PM This is or morgan is used when code status has not been discussed with the patient, or code status is otherwise unknown/unconfirmed To update the patient's code status, place a code status order. Do not modify or discontinue any currently active code status orders. Care Teams Patient Access Specialist Relationship Specialty Start Date End Date Solis Roman MD [address] [place] [address] PCP - General Internal Medicine 06/27/24
--- OUTSIDE RECORDS SUMMARY | 2024-07-24 07:42 | XMS_ITS | Encounter Summary ---
Author Organization [facility] Address [address] [place] [address] Care Team Providers Care Hoof And Shoe Inspector Name Role Phone Solis Roman MD Primary Care Provider [phone] Encounter Details Date Type Department Care Team (Late st Contact Info) Description 07/22/2024 Lab Requisition [facility] - Main Lab [address] [facility] [place] [address] [place] [id number] [address] Shortness of breath; Other fatigue Social History Tobacco Use Types Packs/Day Years [...] 1:00 PM EST Office Visit Neurosurgery - [address] [place] [id number] Ramirez Hall MD [address] [place], [place] [id number] documented as of this encounter Procedures Procedure Name Priority Date/Time Associated Diagnosis Comments COMPLETE BLOOD COUNT Routine 07/22/2024 5:14 AM EST Shortness of breath Other fatigue COMPREHENSIVE METABOLIC PANEL Routine 07/22/2024 5:14 AM EST Shortness of breath Other fatigue documented in this encounter Results * (ABNORMAL) Comprehensive metabolic panel (07/22/2024 5:14 AM EST) Sodium 130(L) 133 - 145 mmol/L LAB CHEMISTRY METHOD 07/22/2024 9:48 AM [facility] Potassium 5.3 3.5 - 5.5 mmol/L LAB CHEMISTRY METHOD 07/22/2024 9:48 AM EST [facility] Chloride 92(L) 96 - 110 mmol/L LAB CHEMISTRY METHOD 07/22/2024 9:48 AM [facility] CO2 28 21 - 32 mmol/L LAB CHEMISTRY METHOD 07/22/2024 9:48 AM [facility] Anion Gap 10 3 - 11 LAB CHEMISTRY METHOD 07/22/2024 9:48 AM [facility] Glucose 93 70 - 100 mg/dL LAB CHEMISTRY METHOD 07/22/2024 9:48 AM [facility] BUN 55(H) 5 - 25 mg/dL LAB CHEMISTRY METHOD 07/22/2024 9:48 AM [facility] Comment:Results verified by repeat testing Creatinine 1.45(H) 0.50 - 1.10 mg/dL LAB CHEMISTRY METHOD 07/22/2024 9:48 AM [facility] Comment:Results verified by repeat testing eGFR 40(L) >=60 mL/min/1. 73m2 LAB CHEMISTRY METHOD 07/22/2024 9:48 AM [facility] Comment:Calculation based on the??Chronic Kidney Disease Epidemiology Collaboration (CKD-EPI) equation refit??without adjustment for race. BUN/Creatinine Ratio 37.9 LAB CHEMISTRY METHOD 07/22/2024 9:48 AM [facility] Calcium 9.9 8.5 - 10.5 mg/dL LAB CHEMISTRY METHOD 07/22/2024 9:48 AM [facility] AST (SGOT) 461(H) 10 - 42 unit/L LAB CHEMISTRY METHOD 07/22/2024 9:48 AM [facility] Comment:Results verified by repeat testing ALT (SGPT) 510(H) 10 - 60 unit/L LAB CHEMISTRY METHOD 07/22/2024 9:48 AM [facility] Comment:Results verified by repeat testing Alkaline Phosphatase 217(H) 42 - 121 unit/L LAB CHEMISTRY METHOD 07/22/2024 9:48 AM [facility] Total Protein 5.3(L) 6.0 - 8.0 g/dL LAB CHEMISTRY METHOD 07/22/2024 9:48 AM [facility] Albumin 2.5(L) 3.2 - 5.0 g/dL LAB CHEMISTRY METHOD 07/22/2024 9:48 AM [facility] Total Bilirubin 0.8 0.0 - 1.4 mg/dL LAB CHEMISTRY METHOD 07/22/2024 9:48 AM [facility] Blood Venous blood specimen / Unknown Venipuncture / Unknown 07/22/2024 5:14 AM EST 07/22/2024 8:51 AM EST Luis Rivas RN LAB BLOOD ORDERABLES [facility] [address] [place] [address], * (ABNORMAL) Complete blood count (07/22/2024 5:14 AM EST) WBC 15.7(H) 4.8 - 10.8 K/mcL LAB HEMETOLOGY METHOD 07/22/2024 9:05 AM [facility] RBC 4.00 3.80 - 4.80 M/mcL LAB HEMETOLOGY METHOD 07/22/2024 9:05 AM [facility] Hemoglobin 11.8 11.5 - 16.0 g/dL LAB HEMETOLOGY METHOD 07/22/2024 9:05 AM [facility] Hematocrit 35.9 35.0 - 47.0 % LAB HEMETOLOGY METHOD 07/22/2024 9:05 AM [facility] MCV 90.0 79.0 - 98.0 FL LAB HEMETOLOGY METHOD 07/22/2024 9:05 AM [facility] MCH 29.6 27.0 - 32.0 pcg LAB HEMETOLOGY METHOD 07/22/2024 9:05 AM [facility] MCHC 32.9 32.0 - 37.0 g/dL LAB HEMETOLOGY METHOD 07/22/2024 9:05 AM [facility] RDW 15.9(H) 11.0 - 15.0 % LAB HEMETOLOGY METHOD 07/22/2024 9:05 AM [facility] Platelets 364 130 - 400 K/mcL LAB HEMETOLOGY METHOD 07/22/2024 9:05 AM EST [facility] MPV 11.2(H) 7.0 - 11.0 FL LAB HEMETOLOGY METHOD 07/22/2024 9:05 AM EST [facility] NRBC 0.2 <1.0 % LAB HEMETOLOGY METHOD 07/22/2024 9:05 AM EST [facility] NRBC Absolute 0.03 <0.10 K/mcL LAB HEMETOLOGY METHOD 07/22/2024 9:05 AM EST [facility] Blood Venous blood specimen / Unknown Venipuncture / Unknown 07/22/2024 5:14 AM EST 07/22/2024 8:51 AM EST Luis Rivas RN LAB BLOOD ORDERABLES [facility] [address] [place], [place] [address] [phone] documented in this encounter Visit Diagnoses Diagnosis Shortness of breath Other fatigue documented in this encounter Additional Health Concerns Infection Onset Date Last Indicated Resolved Time COVID-19 07/04/2024 07/04/2024 Assessment Noted Time PHQ-9 Depression Total Score: 1 07/17/19 2:05 PM EST documented as of this encounter Care Teams Hoof And Shoe Inspector Relationship Specialty Start Date End Date Solis Roman MD [address] [place] [address] PCP - General Internal Medicine 06/27/24 documented as of this encounter
--- OUTSIDE RECORDS SUMMARY | 2024-07-24 07:42 | XMS_ITS | Encounter Summary ---
Author Organization [facility] Address [address] [place] [address] Care Team Providers Care Anodic Operator Name Role Phone Soils Roman MD Primary Care Provider [phone] Reason for Visit * Auth/Cert (Routine) Specialty Diagnoses / Procedures Referred By Contac t Referred To Contact Diagnoses Thoracic spinal stenosis Thoracic Spinal Stenosis Procedures . Ramirez Hall MD [facility] [address] [address] [facility] Spine Or [address] [place] [phone] Referral ID Status Reason Start Date Expiration Date Visits Re quested Visits Authorized [id number] 1 1 Encounter Details Date Type Department Care Team (Latest Contact Info) Description 06/10/2024 5:57 PM EST - 06/25/2024 4:53 PM EST Hospital Encounter [facility] General 7-[address]E [address] [place] [phone] Bridgett Renner MD [address] [place] [phone] Alida Valladares MD [address] [place] [phone] Miguel Gustafson MD [address] [place] [address] Rochelle Arreola MD [address] [place] [phone] Ramirez Hall MD [address] [facility] [address] [place], [place] [id number] Thoracic myelopathy (Primary Dx); Chronic bilateral thoracic back pain; Hypotension after procedure Discharge Disposition: [facility] Facility Social History Tobacco Use Types Packs/Day [...] Sign Reading Time Taken Comments Blood Pressure 120/67 06/25/2024 9:15 AM EST Pulse 60 06/25/2024 9:15 AM EST Temperature 36.7 ??C (98.1 ??F) 06/25/2024 9:15 AM ES T Respiratory Rate 18 06/25/2024 9:15 AM EST Oxygen Saturation 97% 06/25/2024 9:15 AM EST Inhaled Oxygen Concentration - - Weight 82 kg (180 lb 12.4 oz) 06/12/2024 8:00 AM EST Height 157.5 cm (5' 2 ) 06/11/2024 12:56 PM EST Body Mass Index 33.06 06/11/2024 12:56 PM EST documented in this encounter Discharge Summaries * THEODORA Fung - 06/22/2024 7:59 AM EST PRIMARY ADMISSION DIAGNOSIS: Thoracic spinal stenosis [M48.04] DISCHARGE DIAGNOSIS: Thoracic spinal stenosis [M48.04] T5-7 decompression, T5-8 Fusion PROCEDURE: ADMISSION DATE: 06/10/2024 HISTORY OF PRESENT ILLNESS: 68 y.o. 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 Patient wastransferred to [place] for further management with Dr. Hall. HOSPITAL COURSE: The patient underwent No admission procedures for hospital encounter. under general anesthesia and tolerated it well. For details regarding the procedure and indications for surgery please seen the operative note by Ramirez Hall MD. The patient received perioperative antibiotics for infection control and was placed on pneumatic foot pumps postoperatively for (DVT) deep vein thrombosis prophylaxis. Chemical anticoagulation was started postoperatively due to immobility. The patient was started on pain control and post op orders for urinary retention/Varma management, physical therapy and mobility, Infection prophylaxis, VTE prophylaxis as per Ramirez Hall MD. The patient was transferred to the ICU for neuro checks and hemodynamic monitoring. They had a short stay in ICU and were transferred to the floor once stable. Patient continued with right lower extremity paralysis and left leg weakness essentially unchanged from preoperative exam. Patient became quite anxious due to ongoing condition. Psychiatry was consulted for help in management. Medications were added to regimen and patients symptoms improved. Medical team consulted for assist in high blood pressure management, and adjustments made to medical regimen. Plan is for discharge to rehab in stable condition on POD#10. Past Medical History: Diagnosis Date Adverse effect [...] Yarbrough February 2012, subsequent L4-S1 fusion in [place] with Dr. Cagle. CARPAL TUNNEL RELEASE Right TONSILLECTOMY ADENOIDECTOMY, BILATERAL MYRINGOTOMY AND TUBES TOTAL HIP ARTHROPLASTY Left 2022 TOTAL KNEE ARTHROPLASTY Bilateral No Known Allergies Social History Socioeconomic History Marital status: Single Spouse name: Not on file Number of children: Not on file Years of education: Not on file Highest education level: Not on file Occupational History Not on file Tobacco Use Smoking status: Every Day Current packs/day: 0.50 Types: Cigarettes Passive exposure: Never Smokeless tobacco: Never Substance and Sexual Activity Alcohol use: Not Currently Comment: occasionally Drug use: Yes Types: Marijuana/Cannabis Comment: occasionally Sexual activity: Not Currently Other Topics Concern Not on file Social History Narrative Not on file Vitals: 06/21/24 0414 BP: 110/64 Pulse: 62 Resp: 18 Temp: 36.7 ??C (98.1 ??F) SpO2: 95% CONSULTS: Psychiatry/AIMs DISPOSITION: Short term Rehab Facility SPINE PLAN: Activity: Out of Bed as tolerated. DVT prophylaxis: Heparin SQ Please see the attached spine discharge instructions for details regarding the resumption of activities, diet, wound care. Discharge medications: Please see W 10/medication reconciliation. Follow-up: With Ramirez Hall MD as scheduled. Call the office with any change in symptoms, questions or concerns. Continue varma for neurogenic bladder/retention. Recommend Urology evaluation in rehab setting Addendum 06/22/2024: Patient stayed until postoperative day #11 awaiting rehab placement. Chris Chowdhury PA-C [facility] : [facility] patients : Gen Ortho patients : Ortho Spine patients Addendum 06/23/2024: Patient stayed until postoperative day #12 awaiting rehab placement. She remained hemodynamically stable. She had no dramatic changes to her neurologic exam. Of note, patient will be discharged with her Varma. She has already completed a 5-day course of prophylactic Macrobid. I have discussed this with Dr. Hall. At this time, we will defer the decision to continue prophylactic antibiotics to the urologic provider that she will be assessed by in the rehab setting. Morro Spear PA-C Department of Orthopedics [phone] [facility] [phone] General Pager Patient was eventually discharged on 06/25/2024 in order to facilitate rehab authorization/placement.Her neurologic exam remained stable throughout the remainder of her hospital stay. She was eventually discharged to rehab on postoperative day 14. documented in this encounter Discharge Instructions * Attachments The following attachments cannot be sent through Care Everywhere. * Surgery Post-op (Tanzanian) * Back Surgery for Spinal Stenosis: Returning Home: Video (Tanzanian) documented in this encounter Medications at Time [...] Amount: 10 mg 15 tablet 07/17/2024 07/23/2024 acetaminophen (TYLENOL) 325 mg tablet Take 2 tablets (650 mg total) by mouth every 6 (six) hours if needed for mild pain, moderate pain or headaches for up to 10 days. 06/21/2024 07/17/2024 famotidine (PEPCID) 20 mg tablet Take 1 tablet (20 mg total) by mouth 1 (one) time each day. 30 each 11 05/31/2024 07/17/2024 gabapentin (NEURONTIN) 800 mg tablet Take 1 tablet (800 mg total) by mouth 2 (two) times a day. 07/17/2024 heparin sodium,porcine (heparin, UFH,) 5,000 unit/mL injectionIndications:P rophylaxis of Venous Thromboembolism Inject 1 mL (5,000 Units total) under the skin every 8 (eight) hours for 20 days. 06/21/2024 07/17/2024 hydrALAZINE (APRESOLINE) 50 mg tablet Take 1.5 tablets (75 mg total) by mouth 2 (two) times a day. 06/23/2024 07/17/2024 methylPREDNISolone (MEDROL DOSPAK) 4 mg tablet Take 1 tablet (4 mg total) by mouth See administration instructions for 6 days. Use as directed by package instructions 06/23/2024 07/17/2024 metoprolol tartrate (LOPRESSOR) 25 mg tablet Take 1 tablet (25 mg total) by mouth 1 (one) time each day. 11/13/2013 07/17/2024 oxyCODONE (ROXICODONE) 5 mg immediate release tabletIndications:Thor acic myelopathy Take 1 tablet (5 mg total) by mouth every 6 (six) hours if needed for moderate pain. Max Daily Amount: 20 mg 06/21/2024 07/17/2024 senna-docusate (PERICOLACE) 8.6-50 mg per tablet Take 1 tablet by mouth at bedtime. 30 each 05/25/2024 07/17/2024 tiZANidine (ZANAFLEX) 2 mg tablet Take 1 tablet (2 mg total) by mouth 1 (one) time each day. 07/17/2024 triamterene-hydroCHLOR Othiazide (DYAZIDE) 37.5-25 mg per capsule Take 1 capsule by mouth 1 (one) time each day. 07/17/2024 valsartan (DIOVAN) 320 mg tablet Take 1 tablet (320 mg total) by mouth 1 (one) time each day. 03/22/2024 07/17/2024 documented as of this encounter Ordered Prescriptions Prescription Sig Dispensed Refills Start Date End Da te methylPREDNISolone (MEDROL DOSPAK) 4 mg tablet Take 1 tablet (4 mg total) by mouth See administration instructions for 6 days. Use as directed by package instructions 06/23/2024 07/17/2024 hydrALAZINE (APRESOLINE) 50 mg tablet Take 1.5 tablets (75 mg total) by mouth 2 (two) times a day. 06/23/2024 07/17/2024 nitrofurantoin, macrocrystal-monohydrat e, (MACROBID) 100 mg capsule Take 1 capsule (100 mg total) by mouth 1 (one) time each day for 5 days. Macrobid daily until varma discontinued for voiding trial 06/23/2024 06/23/2024 acetaminophen (TYLENOL) 325 mg tablet Take 2 tablets (650 mg total) by mouth every 6 (six) hours if needed for mild pain, moderate pain or headaches for up to 10 days. 06/21/2024 07/17/2024 ALPRAZolam (XANAX) 0.5 mg tablet Take 1 tablet (0.5 mg total) by mouth at bedtime as needed for anxiety. Max Daily Amount: 0.5 mg 06/21/2024 07/21/2024 oxyCODONE (ROXICODONE) 5 mg immediate release tabletIndications:Thora cic myelopathy Take 1 tablet (5 mg total) by mouth every 6 (six) hours if needed for moderate pain. Max Daily Amount: 20 mg 06/21/2024 07/17/2024 heparin sodium,porcine (heparin, UFH,) 5,000 unit/mL injectionIndications:Pr ophylaxis of Venous Thromboembolism Inject 1 mL (5,000 Units total) under the skin every 8 (eight) hours for 20 days. 06/21/2024 07/17/2024 documented in this encounter Discharge Disposition Disposition Code Departure Means Destination Comment s Correction Facility Ambulance Ski lled Nursing, Intermediate Care, or Assisted Living Facility documented in this encounter Progress Notes * Mari Murcia LPN - 06/25/2024 3:45 PM EST Patient A&OX4 has completed all treatment per order today tolerated well and [facility], Report given to nurse Mcgarry, and Copies of AVS and Transfer Form printed and sent with patient. Patient in possession of all personal item, IV line removed, Chronic Varma is intact and draining clear yellow urine. Patient left unit at 1548 on stretcher with 2 EMT personnel for transportation to facility via ambulance. * Balbina Hill RN - 06/25/2024 3:04 PM EST Problem: Self-Care: IPR IPOC Goal: Patient/caregiver collaborates in the IPR process in person or with business team leader Outcome: Adequate for Discharge Problem: Falls: Fall Risk (Adult IP BH) Goal: Patient will not fall or injure themselves during hospitalization. Outcome: Adequate for Discharge Problem: Physical Regulation:Physical Mobility Impairment Goal: Ability to avoid complications of mobility impairment will improve Outcome: Adequate for Discharge Problem: Cognitive:Transitional Care Goal: Barriers related to transition Outcome: Adequate for Discharge Problem: Sensory:Periop Procedure - Major Goal: Demonstrates/reports adequate pain control Outcome: Adequate for Discharge Problem: Skin Integrity: Periop Procedure - Major Goal: Patient will remain free of injury and skin integrity maintained Outcome: Adequate for Discharge Problem: Sensory: Acute Pain Goal: Ability to develop a pain control plan will improve Outcome: Adequate for Discharge Problem: Physical Regulation:Infection Risk Of Goal: Will remain free from infection Outcome: Adequate for Discharge Problem: Cognitive: Acute Anxiety Goal: Ability to identify strategies to decrease anxiety will improve Outcome: Adequate for Discharge Problem: Self-Concept: Acute Anxiety Goal: Level of anxiety will decrease Outcome: Adequate for Discharge DC AVS review completed and communicated to bedside nurse. * Balbina Hill RN - 06/25/2024 12:36 PM EST 06/25/24 1236 Safe Environment Arm Bands On ID The Patient's Environment is Safe Yes Side Rails/Bed Safety 08/21 vRN Rounding: Patient awake, alert, in NAD. Pt denies pain, denies N/V. Pt eating lunch. Requestinginformation related to discharge, secure message sent to CM. Reviewed plan of care and safety checkperformed. Call light within reach and pt educated on use of call light to ring for staff/vRN assistance. Virtual rounding ongoing. * Pia Cornejo, OTR/L - 06/25/2024 10:52 AM EST Images from the original note were not included. OCCUPATIONAL THERAPY TREATMENT NOTE [address] [place] [address] Occupational Therapy Summary and Impressions OT Treatment Note 06/25/2024: Pt seen today for OT treatment session: admitted 06/10/2024 adm with paraplegia. Pt with h/o thoracic spine stenosis, s/p thoracic spinal decompression surgery x 2, T6-7 lami for for presumed thoracic disc-postop unable to ambulate. A week later underwent extension of laminectomy- postop lost sensation in right leg. Transferred from rehab to [facility], unable to ambulate. 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 OR 06/11 for T5-T8 fusion, T5-7 decompression, T6-7 facetectomy, removal large ventral extradural calcified mass. Pt met in bed. A&Ox4.Pt seen with PT 2' medical complexity. Pt completed bed mobility of supine > sit with MaxAx2 andsit > supine with MaxAx2. Pt required ModA for bed mobility of rolling. Pt engaged in sitting atEOB for dynamic and static sitting balance. Pt required MaxA for dynamic balance and Dg/CGA for static sitting balance utilizing b/l UE for support on knees. Pt completed lateral weight shifting onto b/l elbows with Mod/Max for facilitation. Pt engaged in UB grooming while sitting at EOB of brushing hair with MaxA for support. Pt incontinent of stool, required total A for pericare. Pt LB ADLs TotalA , UB ADLs, Dg. Overall Pt continues to present with decreased endurance, activity tolerance,mobility, and ADL status. Progressing toward goals, continue OT during acute stay. Anticipate OT needs 5x/week upon DC. Recommend discharge as per interdisciplinary team. Pia Cornejo OTD, OTR/L Additional Individuals Present for Session: Otilio PT, and ANTONIA Simmons OT Frequency at Discharge: 5x per wk OT Discharge Recommendation: As per disciplinary team [facility]: AM-PAC?? Daily Activity Inpatient Short Form (6-Clicks) How much HELP from another person do you currently need??? (If the patient hasn???t done an activity recently, how much help from another person do you think he/she would need if he/she tried?) 1=Total assist (dependent, cannot do at all, 2 person assist) 2=A lot (maximum to moderate assist) 3=A little (minimal, contact guard, stand by, supervision) 4=None (does not require help, independent, mod I) 1. Putting on and taking off regular lower body clothing? 1 - Total 2. Bathing (including washing, rinsing, drying)? 2 - A Lot 3. Toileting, which includes using toilet, bedpan or urinal? 1 - Total 4. Putting on and taking off regular upper body clothing? 3 - A Little 5. Taking care of personal grooming such as brushing teeth? 3 - A Little 6. Eating meals? 3 - A Little AM-PAC?? RAW SCORE 13E/24 Patient Behaviors Cooperative , Motivated, and Receptive 06/25/24 1052 OT Last Visit OT Received On 06/25/24 Precautions Medical Precautions Fall Risk Safety Interventions Call [place] within reach;Bed alarm RUE Weight Bearing Status Full LUE Weight Bearing Status Full RLE Weight Bearing Status Full LLE Weight Bearing Status Full Orthopedic Precautions Back Precautions Pain Assessment Pain Assessment No/denies pain ADLs/IADLs Self Care/Home Management (ADLs) Time Entry 15 Static Sitting Balance Static Sitting-Level of Assistance Minimum assistance;Contact guard Static Sitting-Balance Support Feet supported;No upper extremity supported Dynamic Sitting Balance Dynamic Sitting-Level of Assistance Moderate assistance;Maximum assistance Dynamic Sitting-Balance Forward lean;Lateral lean Dynamic Sitting-Balance Support Feet supported;Unilateral upper extremity supported Cognition Overall Cognitive Status WFL Orientation Level Oriented X4 Perseveration Not present Perception Inattention/Neglect Appears intact Initiation Appears intact Motor Planning Appears intact Balance/Neuromuscular Re-Education Neuromuscular Re-Education Time Entry 15 Therapeutic Activity Therapeutic Activity Time Entry 15 OT Assessment Prognosis Good Plan OT Plan Skilled OT OT Frequency 3 days per week Education Chart reviewed, RN cleared pt for therapy. Pt left in bed, alarm engaged, nursing aware, all lines in tact, call [place] in reach, in no acute distress. Progressing towards goals 06/25/2024 Pia Cornejo, OTD, OTR/L * Octaviano Islas, PT - 06/25/2024 10:50 AM EST Images from the original note were not included. PHYSICAL THERAPY TREATMENT [address] [place] [address] Payor: Payor: UNICARE / Plan: UNICARE PPO / Product Type: *No Product type* / Admitting Diagnosis: Thoracic spinal stenosis [M48.04] Past Medical History Past Surgical History Past Medical History: Diagnosis Date Adverse [...] Yarbrough February 2012, subsequent L4-S1 fusion in [place] with Dr. Cagle. CARPAL TUNNEL RELEASE Right TONSILLECTOMY ADENOIDECTOMY, BILATERAL MYRINGOTOMY AND TUBES TOTAL HIP ARTHROPLASTY Left 2022 TOTAL KNEE ARTHROPLASTY Bilateral Social History Family History Social History Socioeconomic History Marital status: Single Spouse name: Not on file Number of children: Not on file Years of education: Not on file Highest education level: Not on file Occupational History Not on file Tobacco Use Smoking status: Every Day Current packs/day: 0.50 Types: Cigarettes Passive exposure: Never Smokeless tobacco: Never Substance and Sexual Activity Alcohol use: Not Currently Comment: occasionally Drug use: Yes Types: Marijuana/Cannabis Comment: occasionally Sexual activity: Not Currently Other Topics Concern Not on file Social History Narrative Not on file Family History Problem Relation Name Age of Onset Other (HTN) Mother Uterine cancer Mother Prostate cancer Father Prostate cancer Brother Physical Therapy Summary and Impressions Yuly Montoya is a 68 y.o. female admitted with paraplegia. Pt with h/o thoracic spine stenosis, s/p thoracic spinal decompression surgery x 2, T6-7 lami for for presumed thoracic disc-postop unable to ambulate. A week later underwent extension of laminectomy-postop lost sensation in right leg. Tr ansferred from rehab to [facility], unable to ambulate. Imaging showed large T6/7 intracanal mass (disc vsmeningioma). OR 06/11 for T5-T8 fusion, T5-7 decompression, T6-7 facetectomy, removal large ventralextradural calcified mass. Pt with B LE impaired strength R worse than L. Pt with R foot drop. Instructed on calf stretches with sheet to maintain DF ROM. Pt found to be incontinent of stool. Pt rolled B moderate assistance x1 for cleaning/linen change. Supine to sit performed with maximal assistance x2. Sitting edge of bed pt required contact guard assist to moderate assistance x1 for sitting balance. Pt primarily with losses of balance posterior and R. Pt performed B weight shifting edge of bed and performed reaching activities. Pt also performed sitting trunk flexion exercises to improve core strength holding onto hands of OT. ADLs performed with OT. See OT note for details. 06/25/2024 General Additional Individuals Present for Session PT Student Iris Morrison and OT Pia Cates PT Frequency at Discharge 5x/week PT Recommendation As per disciplinary team [facility] Basic Mobility 6 E Precautions Safety Interventions Call [place] Within Reach and Bed Alarm Activated RUE Weight Bearing Status As Tolerated LUE Weight Bearing Status As Tolerated RLE Weight Bearing Status WBAT LLE Weight Bearing Status WBAT Other Precautions Surgical Spine Precautions Pain Assessment Pain Assessment 0-10 Pain Score 4 Pain Type Surgical pain Pain Location Thoracic Pain Interventions Repositioned Cognition Overall Cognitive Status WFL Arousal/Alertness Appropriate responses to stimuli Following Commands Intact Proprioception Proprioception No apparent deficits Perception Initiation Intact Motor Planning Intact Coordination Coordination Impaired B LEs Postural Control Head Control WFL Trunk Control Fair Poor Balance Static Sitting-Level of Assistance Fair and Poor Dynamic Sitting-Level of Assistance Fair and Poor Static Standing-Level of Assistance Not Assessed Dynamic Standing-Level of Assistance Not Assessed Bed Mobility Supine to Sit Assistance Maximal Assist and Assist x 2 Sit to Supine Assistance Maximal Assist and Assist x 2 Curb Training Comments Therex R calf stretch, L ankle pumps, quad sets, glute sets. PT Assessment PT Assessment Results Decreased Strength, Decreased Range of Motion, Decreased Endurance, Impaired Balance, Impaired Gait, Impaired Stair Training, and Pain Prognosis Fair Plan Treatment/Intervention Functional Transfer Training, LE Strengthening/ROM, Endurance Training, Bed Mobility, and Balance Training PT Frequency in Hospital 4x/week Equipment Recommended No equipment needed secondary to discharge to rehab Education Chart reviewed and nursing consulted prior to mobility. Pt left in no acute distress. Octaviano Islas PT * Kusum Harrell RN - 06/25/2024 8:51 AM EST Problem: Self-Care: IPR IPOC Goal: Patient/caregiver collaborates in the IPR process in person or with business team leader Outcome: Progressing Problem: Falls: Fall Risk (Adult IP BH) Goal: Patient will not fall or injure themselves during hospitalization. Outcome: Progressing Problem: Physical Regulation:Physical Mobility Impairment Goal: Ability to avoid complications of mobility impairment will improve Outcome: Progressing Problem: Cognitive:Transitional Care Goal: Barriers related to transition Outcome: Progressing Problem: Sensory:Periop Procedure - Major Goal: Demonstrates/reports adequate pain control Outcome: Progressing Problem: Skin Integrity: Periop Procedure - Major Goal: Patient will remain free of injury and skin integrity maintained Outcome: Progressing Problem: Sensory: Acute Pain Goal: Ability to develop a pain control plan will improve Outcome: Progressing Problem: Physical Regulation:Infection Risk Of Goal: Will remain free from infection Outcome: Progressing Problem: Cognitive: Acute Anxiety Goal: Ability to identify strategies to decrease anxiety will improve Outcome: Progressing Problem: Self-Concept: Acute Anxiety Goal: Level of anxiety will decrease Outcome: Progressing * THEODORA Lai - 06/25/2024 7:57 AM EST Ortho Thoracic/Lumbar Spine PA-C Note Subjective: No acute overnight issues. Pt reports minimal back pain. She has ongoing severe weakness in her R LE that is unchanged. She thinks the strength in her Left leg continues to slowly improve. No CP/SOB/difficulty swallowing/MELGAR/Ab pain/vomiting. Awaiting authorization and placement Objective: Vitals: 06/25/24 0514 BP: 104/69 Pulse: 56 Resp: 18 Temp: 36.4 ??C (97.5 ??F) SpO2: 97% @[id number](wbc,hematocrit,hemoglobin,pltcount,inr,bmp,typeandscreen,esr,crea ctiveprotein)@ Gen: NAD BACK: Dressing clean, dry and intact LOWER EXTREMITY: L2: Psoas L3: Quadriceps L4: Tibialis Anterior L5: Extensor Hallucis Longus S1: Gastrocnemius, Soleus S1: Hamstring RIGHT 0 0 0 0 0 0 LEFT 0/5 2/5 4+/5 5/5 5/5 3/5 Deep peroneal, Superficial peroneal, and Tibial nerves intact LLE No sensation RLE Calf soft and NT + Dorsalis Pedis pulse , feet are warm and well perfused I/O last 3 completed shifts: In: - (0 mL/kg) Out: 5350 (65.2 mL/kg) [Urine:5350 (1.8 mL/kg/hr)] Weight: 82 kg Assessment: POD #14 s/p T by Dr. Ramirez Hall MD Plan: Activity: Out of bed as tolerated DVT prophylaxis: Heparin sq Physical therapy to mobilize Pain control Am CBC pending to re evaluate leukocytosis. Currently thought to be related to steroids. Decadron- dose decreased yesterday to start taper. Diet: diet as tolerated Dispo: Discharge to rehab once placement and authorization are done Patricio Eason PA-C Orthopedic Surgery General Ortho/Ortho Trauma pager [facility]/Spine pager * Ines Garcia RN - 06/24/2024 10:15 PM EST Patient appears to be sleeping in bed without any observable signs of discomfort or distress. Respirations even and unlabored. Will continue virtual rounds overnight for routine safety checks. Will not announce nurse presence during rounds to ensure minimal disruption to patient's rest. VRN is unable to assess if bed is locked or in lowest position. * Marisol Mcdonnell RN - 06/24/2024 5:55 PM EST Problem: Self-Care: IPR IPOC Goal: Patient/caregiver collaborates in the IPR process in person or with business team leader Outcome: Progressing Problem: Falls: Fall Risk (Adult IP BH) Goal: Patient will not fall or injure themselves during hospitalization. Outcome: Progressing Problem: Physical Regulation:Physical Mobility Impairment Goal: Ability to avoid complications of mobility impairment will improve Outcome: Progressing Problem: Cognitive:Transitional Care Goal: Barriers related to transition Outcome: Progressing Patient appears to be alert and oriented x4. Patient oriented to call [place] and phone. Call washington andpersonal belongings within reach of the patient. Bed locked and in the lowest position. Patient continued on fall precautions. Tolerating diet well. Patients surgical dressings are clean, dry and intact with no signs of infection. Patient has varma in place that is draining well. Communicating wellwith staff. Updated on plan of care. * Ramirez Hall MD - 06/24/2024 11:04 AM EST Neurosurgery Doing well No change in exam Visit Vitals BP 131/62 Pulse 73 Temp 36.6 ??C (97.9 ??F) (Oral) Resp 18 Ht 1.575 m (62 ) Wt 82 kg (180 lb 12.4 oz) SpO2 99% BMI 33.06 kg/m?? OB Status Postmenopausal Smoking Status Every Day BSA 1.83 m?? cevimeline, 30 mg, oral, TID dexAMETHasone, 4 mg, intravenous, q8h EDEN docusate sodium, 100 mg, oral, BID doxepin, 100 mg, oral, Nightly DULoxetine, 60 mg, oral, Daily famotidine, 20 mg, oral, Daily gabapentin, 500 mg, oral, q8h heparin (porcine), 5,000 Units, subcutaneous, q8h EDEN hydrALAZINE, 75 mg, oral, BID insulin lispro, 1-6 Units, subcutaneous, TID AC polyetheylene glycol, 17 g, oral, Daily senna, 2 tablet, oral, BID sodium chloride, 10 mL, intravenous, BID tiZANidine, 2 mg, oral, Daily traZODone, 100 mg, oral, Nightly triamterene-hydroCHLOROthiazide, 1 capsule, oral, Daily valsartan, 320 mg, oral, Daily PRN medications: acetaminophen, ALPRAZolam, bisacodyL, dextrose 50%, dextrose 50%, dextrose, dextrose, glucagon injection, hydrALAZINE, oxyCODONE, oxyCODONE, Insert peripheral IV AND Maintain IV access AND Saline lock IV AND sodium chloride AND sodium chloride D/c to rehab Remove ronald 2 weeks after surgery * Fady Barakat - 06/24/2024 9:20 AM EST Spiritual Care Visit Sacramental Note [employer] Fr. Fady Barakat provided Sacrament of Eucharist at the request of the patient. The patient was able to participate in the sacrament. No other interventions or assessments were provided at this visit. * THEODORA Vivas - 06/24/2024 7:24 AM EST Physician [employer] Member Thoraco/Lumbar Spine Progress Note Subjective: Pt doing well.No overnight issues. Pain controlled. No SOB/CP/MELGAR/Ab pain/vomiting. No change in RLE exam Objective: Vitals: 06/24/24 0515 BP: (!) 154/80 Pulse: 58 Resp: 18 Temp: 36.4 ??C (97.5 ??F) SpO2: @[id number](wbc,hematocrit,hemoglobin,pltcount,inr,bmp,typeandscreen,esr,crea ctiveprotein)@ I/O last 3 completed shifts: In: 10 (0.1 mL/kg) [I.V.:10 (0.1 mL/kg)] Out: 5100 (62.2 mL/kg) [Urine:5100 (1.7 mL/kg/hr)] Weight: 82 kg Wound:Dressing clean and dry Muscle strength: LOWER EXTREMITY: Lower Extremity Iliopsoas Femoral L 1/2/3 Quad Femoral L2/3/4 Tibialis Anterior Peroneal L 4/5 EHL Deep Peroneal L 4/5 Peroneal Superficial Peroneal L5 S1/2 FHL Tibial S1 Gastroc/Soleus Tibial S1/2 Hamstring Tibial L5/S1/2 Right 0 0 0 0 0 0 Left 0/5 2/5 4/5 4+/5 5/5 3/5 Nerves (sensation) : Deep peroneal, Superficial peroneal, and Tibial nerves intact to the left lower extremity. she has no sensation to the distal right lower extremity at all. Vascular: 2+ DP/PT Problem List: Patient Active Problem List Diagnosis Lumbar spondylosis Onychomycosis Pain in toe Sacroiliitis (CMS/HCC) Spondylolisthesis Cervical spondylosis Spinal stenosis of thoracic region Thoracic spinal stenosis Age-related macular degeneration Anxiety Atrial flutter (CMS/HCC) Obstructive sleep apnea syndrome Deep vein thrombosis (DVT) of lower extremity (CMS/HCC) History of artificial joint Hypertension Osteoarthritis of hip Peripheral venous insufficiency S/P tonsillectomy and adenoidectomy Bradycardia Thoracic myelopathy Assessment: POD #13 s/p T5-[address] Ramirez Hall MD Plan: Activity: Out of bed as tolerated DVT prophylaxis: Subcutaneous heparin Physical therapy to mobilize Pain control Diet: Regular diet as tolerated Medicine and psychiatry have consulted on this patient. Awaiting placement D/C with [facility] Department of Orthopedic Surgery [facility] [place] [phone] General Pager [phone] [place] Pager * Sobeida Carver RN - 06/24/2024 6:03 AM EST 06/24/24 0602 Safe Environment Arm Bands On ID The Patient's Environment is Safe Yes Side Rails/Bed Safety 09/21 Telemetry Details Conditioning Coach On No Fall Risk Interventions Hourly Visual Checks Awake;In bed Sobeida Carver RN Virtual RN Virtual Monitoring Unit * Sherrie Phoenix RN - 06/24/2024 3:40 AM EST Pt positioned for comfort, bed alarm activated. Problem: Falls: Fall Risk (Adult IP BH) Goal: Patient will not fall or injure themselves during hospitalization. Outcome: Progressing Note: Pt educated on use of call [place] for needs. Verbalized understanding. Problem: Cognitive: Acute Anxiety Goal: Ability to identify strategies to decrease anxiety will improve Outcome: Progressing Note: Pt reports anxiety due to surgery and inability to ambulate at this time. Pt verbalized feeling, therapeutic listening provided, pt appreciative, prn xanax given with good effect. * Sobeida Carver RN - 06/23/2024 10:54 PM EST Pt is awake sitting in bed with out any observable S/S of distress or discomfort. Respiration are even and unlabored. Pt is agreeable to have virtual rounds continue over night for routine safety checks. Pt is aware that VRN will not announce presence during rounds if they are sleeping to ensure minimal disruption to Patients rest. Call [place] is within reach, bedside table is within reach. VRN rounds will continue over night. 06/23/24 2253 Safe Environment Arm Bands On ID The Patient's Environment is Safe Yes Side Rails/Bed Safety 09/21 Telemetry Details Conditioning Coach On No Fall Risk Interventions Hourly Visual Checks Awake;In bed Sobeida Carver RN Virtual RN Virtual Monitoring Unit * Marisol Mcdonnell RN - 06/23/2024 3:50 PM EST Problem: Self-Care: IPR IPOC Goal: Patient/caregiver collaborates in the IPR process in person or with business team leader Outcome: Progressing Problem: Falls: Fall Risk (Adult IP BH) Goal: Patient will not fall or injure themselves during hospitalization. Outcome: Progressing Problem: Physical Regulation:Physical Mobility Impairment Goal: Ability to avoid complications of mobility impairment will improve Outcome: Progressing Problem: Skin Integrity: Periop Procedure - Major Goal: Patient will remain free of injury and skin integrity maintained Outcome: Progressing Patient appears to be alert and oriented x4. Patient oriented to call [place] and phone. Call washing[place] andpersonal belongings within reach of the patient. Bed locked and in the lowest position. Patient continued on fall precautions. Tolerating diet well. Surgical dressings are clean, dry and intact with no signs of infection. Patient has indwelling varma catheter in place; CHG bath provided today. VSS.Communicating well with staff. Updated on plan of care. * THEODORA Fung - 06/23/2024 3:03 PM EST I discussed this patient's leukocytosis with Dr. Hall. The patient has been asymptomatic, has hadno fevers or chills, chest pain or shortness of breath. Her vital signs have remained within normallimits. The likely cause of this patient's leukocytosis is due to her IV steroid use that she has been on through her hospital stay. Should the patient find placement today she will be discharged on a Medrol Dosepak for weaning purposes. Otherwise, she is appropriate for discharge. Morro Spear PA-C Department of Orthopedics [phone] [facility] [phone] General Pager * Ramirez Hall MD - 06/23/2024 12:46 PM EST Neurosurgery No sig change in motor exam LE's Minimal RLE mvmt Left side 4/5 distally, 2-3/5 prox Visit Vitals BP 118/64 (BP Location: Left arm, Patient Position: Lying) Pulse 62 Temp 36.6 ??C (97.9 ??F) (Oral) Resp 18 Ht 1.575 m (62 ) Wt 82 kg (180 lb 12.4 oz) SpO2 97% BMI 33.06 kg/m?? OB Status Postmenopausal Smoking Status Every Day BSA 1.83 m?? cevimeline, 30 mg, oral, TID dexAMETHasone, 4 mg, intravenous, q6h EDEN docusate sodium, 100 mg, oral, BID doxepin, 100 mg, oral, Nightly DULoxetine, 60 mg, oral, Daily famotidine, 20 mg, oral, Daily gabapentin, 500 mg, oral, q8h heparin (porcine), 5,000 Units, subcutaneous, q8h EDEN hydrALAZINE, 75 mg, oral, BID insulin lispro, 1-6 Units, subcutaneous, TID AC polyetheylene glycol, 17 g, oral, Daily senna, 2 tablet, oral, BID sodium chloride, 10 mL, intravenous, BID tiZANidine, 2 mg, oral, Daily traZODone, 100 mg, oral, Nightly triamterene-hydroCHLOROthiazide, 1 capsule, oral, Daily valsartan, 320 mg, oral, Daily PRN medications: acetaminophen, ALPRAZolam, bisacodyL, dextrose 50%, dextrose 50%, dextrose, dextrose, glucagon injection, hydrALAZINE, oxyCODONE, oxyCODONE, Insert peripheral IV AND Maintain IV access AND Saline lock IV AND sodium chloride AND sodium chloride D/c planning * THEODORA Fung - 06/23/2024 8:28 AM EST Ortho Thoracic/Lumbar Spine PA-C Note Subjective: Pt doing well. No overnight issues. Pain controlled Tolerating diet. No CP/SOB/difficulty swallowing/MELGAR/Ab pain/vomiting. Unfortunately, patient has had no progression in muscle strength or sensation to the right lower extremity. Objective: Vitals: 06/23/24 0438 BP: 134/68 Pulse: 63 Resp: 18 Temp: 36.2 ??C (97.2 ??F) SpO2: Gen: NAD BACK: Dressing clean, dry and intact LOWER EXTREMITY: L2: Psoas L3: Quadriceps L4: Tibialis Anterior L5: Extensor Hallucis Longus S1: Gastrocnemius, Soleus S1: Hamstring RIGHT 0 0 0 0 0 0 LEFT 0/5 1/5 4/5 4/5 5/5 4/5 Deep peroneal, Superficial peroneal, and Tibial nerves intact to the left lower extremity. However,she has no sensation to the distal right lower extremity at all. Calf soft and NT + Dorsalis Pedis pulse I/O last 3 completed shifts: In: 10 (0.1 mL/kg) [I.V.:10 (0.1 mL/kg)] Out: 4600 (56.1 mL/kg) [Urine:4600 (1.6 mL/kg/hr)] Weight: 82 kg Assessment: POD #12 s/p T5-[address] Ramirez Hall MD Plan: Activity: Out of bed as tolerated DVT prophylaxis: Subcutaneous heparin Physical therapy to mobilize Pain control Diet: Regular diet as tolerated Medicine and psychiatry have consulted on this patient. Additionally, physiatry has consulted for potential discharge to [place] rehab facility. Discharge to rehab once available. Of note, patient will be discharged with her Varma. I have discussed with Dr. Hall in terms of antibiotic prophylaxis. She has completed her 5-day course of Macrobid. At this time we will defer thedecision for continued antibiotic prophylaxis to the urologic provider that she will be assessed byat her rehab facility. Morro Spear PA-C Department of Orthopedics [phone] [facility] [phone] General Pager * Sobeida Carver RN - 06/23/2024 5:02 AM EST 06/23/24 0459 Safe Environment Arm Bands On ID The Patient's Environment is Safe Yes Side Rails/Bed Safety 09/21 Telemetry Details Conditioning Coach On No Fall Risk Interventions Hourly Visual Checks Awake;In bed Sobeida Carver RN Virtual RN Virtual Monitoring Unit * Sobeida Carver RN - 06/23/2024 1:50 AM EST Problem: Self-Care: IPR IPOC Goal: Patient/caregiver collaborates in the IPR process in person or with business team leader Outcome: Progressing Problem: Cognitive:Transitional Care Goal: Barriers related to transition Outcome: Progressing Problem: Self-Concept: Acute Anxiety Goal: Level of anxiety will decrease Outcome: Progressing Identify possible barriers to meeting goals/advancing plan of care: Anxiety, depression. Stability of the patient: Moderately Stable - Low risk of patient condition declining or worsening.End of Shift Summary: Plan of care reviewed with patient and understanding was verbalized. Pt is very anxious and tearful at time of VRN safety rounds, she is concerned that she is unable to move herBLE and believes that by this time she should have had movement to her legs. Pt expressed thoughts about going to [facility] so she can work on getting stronger. Sobeida Carver RN Virtual RN Virtual Monitoring Unit * Sobeida Carver RN - 06/22/2024 10:35 PM EST Pt is awake sitting in bed with out any observable S/S of distress or discomfort. Respiration are even and unlabored. Pt is agreeable to have virtual rounds continue over night for routine safety checks. Pt is aware that VRN will not announce presence during rounds if they are sleeping to ensure minimal disruption to Patients rest. Call [place] is within reach, bedside table is within reach. VRN rounds will continue over night. Pt scared and worried about not beng able to move her BLE's yet and wants to go to a rehab facility soon to start her Physical Therapy. She wants to go to a Rehab facility close to her home so family and friends can visit. 06/22/242226 Safe Environment Arm Bands On ID The Patient's Environment is Safe Yes Side Rails/Bed Safety 09/21 Telemetry Details Conditioning Coach On No Fall Risk Interventions Hourly Visual Checks Awake;In bed Sobeida Carver RN Virtual RN Virtual Monitoring Unit * Janay Enriquez MD - 06/22/2024 4:33 PM EST Attending Provider: Ramirez Hall MD PCP: Solis Roman MD Hospital Day: 13 CC:Yuly Montoya is a 68 y.o. female who presents with No chief complaint on file. Subjective Patient was seen and examined the morning. Patient is more calm today and terms of anxiety, denies any symptom. Vitals remained stable. Current Facility-Administered Medications Medication Dose Route Frequency Provider Last Rate Last Admin acetaminophen (TYLENOL) tablet 650 mg 650 mg oral q6h PRN THEODORA Pettit 650 mg at 06/22/24 0352 ALPRAZolam (XANAX) tablet 0.5 mg 0.5 mg oral Nightly PRN Janay Enriquez MD 0.5 mg at 06/21/24 2154 bisacodyL (DULCOLAX) suppository 10 mg 10 mg rectal Daily PRN Ekta Nieto MD 10 mg at 06/15/24 1512 cevimeline (EVOXAC) capsule 30 mg 30 mg oral TID Laisha Robert MD 30 mg at 06/22/24 0845 dexAMETHasone (DECADRON) injection 4 mg 4 mg intravenous q6h [facility] THEODORA Anaya 4 mg at 06/22/24 1625 dextrose (D50W) 50% injection 12.5 g 12.5 g intravenous q15 min PRN THEODORA Anaya dextrose (D50W) 50% injection 25 g 25 g intravenous q15 min PRN THEODORA Anaya dextrose 15 gram/60 mL oral solution 15 g 15 g oral q15 min PRN THEODORA Anaya dextrose 15 gram/60 mL oral solution 30 g 30 g oral q15 min PRN THEODORA Anaya docusate sodium (COLACE) capsule 100 mg 100 mg oral BID THEODORA Jimenez 100 mg at 06/17/24 0925 doxepin (SINEquan) capsule 100 mg 100 mg oral Nightly THEODORA Massey 100 mg at 06/21/24 215 DULoxetine (CYMBALTA) DR capsule 60 mg 60 mg oral Daily Laisha Robert MD 60 mg at 06/22/24 0844 famotidine (PEPCID) tablet 20 mg 20 mg oral Daily Laisha Robert MD 20 mg at 06/22/24 0844 gabapentin (NEURONTIN) capsule 500 mg 500 mg oral q8h Edgar Valencia DO 500 mg at 625 Glucagon HCl (rDNA) injection 1 mg 1 mg intramuscular Once PRN THEODORA Anaya heparin (UFH) injection 5,000 Units 5,000 Units subcutaneous q8h [facility] THEODORA Fung 5,000Units at 06/22/24 1625 hydrALAZINE (APRESOLINE) injection 10 mg 10 mg intravenous q4h PRN THEODORA Ortiz 10 mg at 06/17/24 0624 hydrALAZINE (APRESOLINE) tablet 75 mg 75 mg oral BID THEODORA Pettit 75 mg at 06/22/24 0844 insulin lispro injection 1-6 Units 1-6 Units subcutaneous TID THEODORA Anaya oxyCODONE (ROXICODONE) immediate release tablet 10 mg 10 mg oral q6h PRN THEODORA Jimenez 10 mg at 06/22/24 1625 oxyCODONE (ROXICODONE) immediate release tablet 5 mg 5 mg oral q6h PRN THEODORA Jimenez 5 mg at 06/17/24 2226 polyethylene glycol (MIRALAX) packet 17 g 17 g oral Daily Laisha Robert MD 17 g at 06/14/24 0839 senna (SENOKOT) tablet 17.2 mg 2 tablet oral BID THEODORA Jimenez 17.2 mg at 06/17/24 0924 sodium chloride 0.9 % flush 10 mL 10 mL intravenous BID Bridgett Renner MD 10 mL at 06/22/24 0950 And sodium chloride 0.9 % flush 10 mL 10 mL intravenous PRN Bridgett Renner MD tiZANidine (ZANAFLEX) tablet 2 mg 2 mg oral Daily Laisha Robert MD 2 mg at 06/22/24 0844 traZODone (DESYREL) tablet 100 mg 100 mg oral Nightly THEODORA Massey 100 mg at 06/21/24 2154 triamterene-hydroCHLOROthiazide (DYAZIDE) 37.5-25 mg per capsule 1 capsule 1 capsule oral Daily THEODORA Ortiz 1 capsule at 06/22/24 0843 valsartan (DIOVAN) tablet 320 mg 320 mg oral Daily THEODORA Fung 320 mg at 06/22/24 0844 Past Medical History: Diagnosis Date Adverse effect of anesthesia several hrs after sx pt had Panic attack Anxiety Arthritis Hypertension Irregular heart beat Joint pain Lymphedema Macular degeneration Home Medications cevimeline (EVOXAC) 30 mg capsule Take 1 capsule (30 mg total) by mouth 3 (three) times a day. doxepin (SINEquan) 100 mg capsule Take 1 [...] by mouth 2 (two) times a day. hydrALAZINE (APRESOLINE) 50 mg tablet Take 1 tablet (50 mg total) by mouth 2 (two) times a day. metoprolol tartrate (LOPRESSOR) 25 mg tablet Take 1 tablet (25 mg total) by mouth 1 (one) time eachday. senna-docusate (PERICOLACE) 8.6-50 mg per tablet Take [...] by mouth 1 (one) time each day. Social History Socioeconomic History Marital status: Single Spouse name: Not on file Number of children: Not on file Years of education: Not on file Highest education level: Not on file Occupational History Not on file Tobacco Use Smoking status: Every Day Current packs/day: 0.50 Types: Cigarettes Passive exposure: Never Smokeless tobacco: Never Substance and Sexual Activity Alcohol use: Not Currently Comment: occasionally Drug use: Yes Types: Marijuana/Cannabis Comment: occasionally Sexual activity: Not Currently Other Topics Concern Not on file Social History Narrative Not on file Objective BP: 154/80 (06/22 454) Heart Rate: 53 (06/22 454) Heart Rate Source: Monitor (06/21 1415) Temp: 36.4 ??C (97.5 ??F) (06/22 454) Temp Source: Oral (06/22 454) SpO2: 98 % (06/22 454) Weight: 82 kg (180 lb 12.4 oz) Intake/Output Summary (Last 24 hours) at 06/22/2024 1633 Last data filed at 06/22/2024 1600 Gross per 24 hour Intake -- Output 3050 ml Net -3050 ml PHYSICAL EXAM: Physical Exam Constitutional: Appearance: Normal appearance. HENT: Head: Normocephalic. Mouth/Throat: Mouth: Mucous membranes are moist. Eyes: Pupils: Pupils are equal, round, and reactive to light. Cardiovascular: Rate and Rhythm: Normal rate and regular rhythm. Pulmonary: Effort: Pulmonary effort is normal. Breath sounds: Normal breath sounds. Abdominal: General: Bowel sounds are normal. Palpations: Abdomen is soft. Musculoskeletal: Cervical back: Normal range of motion and neck supple. Right lower leg: No edema. Left lower leg: No edema. Skin: General: Skin is warm and dry. Neurological: General: No focal deficit present. Mental Status: She is alert. RESULTS: Labs: Labs: Lab Results Component Value Date WBC 13.9 (H) 06/21/2024 HGB 12.4 (L) 06/21/2024 HCT 36.9 (L) 06/21/2024 PLT 359 06/21/2024 ALT 20 06/08/2024 AST 10 06/08/2024 NA 134 (L) 06/15/2024 K 4.2 06/15/2024 CL 99 06/15/2024 CREATININE 0.60 06/15/2024 BUN 16 06/15/2024 CO2 30 06/15/2024 I personally reviewed. Microbiology: No results found for this or any previous visit (from the past 168 hour(s)). Imaging: CT Thoracic Spine wo Contrast Narrative: [...] on 06/14/2024 6:04 PM. Workstation Name - [id number] -------- FINAL REPORT -------- Dictated By: Chetan Barclay Dictated Date: 06/14/2024 17:59 ET Assigned Physician: Chetan Barclay Reviewed and Electronically Signed By: Chetan Barclay Signed Date: 06/14/2024 18:04 ET Workstation ID: [id number] Transcribed By: Self Edit Transcribed Date: 06/14/2024 17:59 ET I personally reviewed and interpreted this imaging. Assessment/Plan Patient Active Problem List Diagnosis Lumbar spondylosis Onychomycosis Pain in toe Sacroiliitis (CMS/HCC) Spondylolisthesis Cervical spondylosis Spinal stenosis of thoracic region Thoracic spinal stenosis Age-related macular degeneration Anxiety Atrial flutter (CMS/HCC) Obstructive sleep apnea syndrome Deep vein thrombosis (DVT) of lower extremity (CMS/HCC) History of artificial joint Hypertension Osteoarthritis of hip Peripheral venous insufficiency S/P tonsillectomy and adenoidectomy Bradycardia Thoracic myelopathy #Assessment and Plan 68-year-old lady who is currently status post decompression thoracic T6-7 facetectomy, with past medical history of hypertension, paroxysmal atrial flutter with secondary hypercoagulable state, spinal stenosis. # Hypertension: -Patient has been having elevated blood pressures. -Patient is on valsartan 320 mg daily, triamterene-hydrochlorothiazide 37.5-25 mg daily, hydralazine 50 mg twice daily. -During this hospitalization her hydralazine dose was increased to 75 mg twice daily. -Blood pressure is much improved. -Aims will sign off. # Anxiety: -Psych involved. -Follow-up their recommendations. -On doxepin, Cymbalta. -I recommended Xanax yesterday which helped the patient. Patient does not want to take Ativan as itworsened her condition. # Thoracic spinal stenosis: -S/p T5-T8 fusion, T5-7 decompression, T6/7 facetectomy. -Primary team managing. -On dexamethasone, tizanidine. #DVT Prophylaxis: Heparin #Code Status: No CPR/Do Not Intubate * Roly Subramanian RN - 06/22/2024 4:16 PM EST Goals: Problem: Self-Care: IPR IPOC Goal: Patient/caregiver collaborates in the IPR process in person or with business team leader Outcome: Progressing Problem: Falls: Fall Risk (Adult IP BH) Goal: Patient will not fall or injure themselves during hospitalization. Outcome: Progressing Problem: Physical Regulation:Physical Mobility Impairment Goal: Ability to avoid complications of mobility impairment will improve Outcome: Progressing Problem: Cognitive:Transitional Care Goal: Barriers related to transition Outcome: Progressing Problem: Sensory:Periop Procedure - Major Goal: Demonstrates/reports adequate pain control Outcome: Progressing Problem: Skin Integrity: Periop Procedure - Major Goal: Patient will remain free of injury and skin integrity maintained Outcome: Progressing Problem: Sensory: Acute Pain Goal: Ability to develop a pain control plan will improve Outcome: Progressing Problem: Physical Regulation:Infection Risk Of Goal: Will remain free from infection Outcome: Progressing * Aliza Enamorado RN - 06/22/2024 10:21 AM EST Patient is alert and oriented times 4, pleasant and cooperative. I completed the required admissioninformation with patient's input. * THEODORA Boo - 06/22/2024 7:55 AM EST Ortho Thoracic/Lumbar Spine PA-C Note Subjective: Pt doing well. No overnight issues. Pain controlled Tolerating diet. No CP/SOB/difficulty swallowing/MELGAR/Ab pain/vomiting. Awaiting rehab placement Objective: Vitals: 06/22/24 0455 BP: (!) 154/80 Pulse: 53 Resp: 18 Temp: 36.4 ??C (97.5 ??F) SpO2: 98% BACK: Dressing clean, dry and intact LOWER EXTREMITY: L2: Psoas L3: Quadriceps L4: Tibialis Anterior L5: Extensor Hallucis Longus S1: Gastrocnemius, Soleus RIGHT 0/5 0/5 0/5 0/5 0/5 LEFT 0/5 0/5 4/5 4/5 4/5 *Exam consistent with previously documented. No acute changes. LLE: Deep peroneal, Superficial peroneal, and Tibial nerves intact RLE: Diffusely diminished sensation throughout the right lower extremity I/O last 3 completed shifts: In: 720 (8.8 mL/kg) [P.O.:720] Out: 2900 (35.4 mL/kg) [Urine:2900 (1 mL/kg/hr)] Weight: 82 kg Assessment: POD #11 s/p T5-[address] Ramirez Hall MD Plan: Activity: Out of bed as tolerated DVT prophylaxis: HSQ Physical therapy to mobilize Pain control Diet: Regular diet as tolerated Consults: Aims/psychiatry Discharge to rehab facility once available Chris Chowdhury PA-C [facility] : [facility] patients : Gen Ortho patients : Ortho Spine patients * Araceli Gardner RN - 06/22/2024 4:21 AM EST Patient appears to be sleeping in bed without any observable signs of discomfort or distress. Respirations even and unlabored. Will continue virtual rounds overnight for routine safety checks. Will not announce nurse presence during rounds to ensure minimal disruption to patient's rest. 06/22/24 0421 Safe Environment Arm Bands On ID The Patient's Environment is Safe Yes (CLAY; wheels locked and bed in low position) Side Rails/Bed Safety 3/ * Araceli Gardner RN - 06/22/2024 12:01 AM EST Patient appears comfortable; no s/s of discomfort or distress noted * Janay Enriquez MD - 06/21/2024 5:21 PM EST Attending Provider: Ramirez Hall MD PCP: Solis Roman MD Hospital Day: 12 CC:Yuly Montoya is a 68 y.o. female who presents with No chief complaint on file. Subjective Patient was seen and examined the morning. Patient feels better today in terms of anxiety, denies any symptom. Vitals remained stable with blood pressure in better range. Current Facility-Administered Medications Medication Dose Route Frequency Provider Last Rate Last Admin acetaminophen (TYLENOL) tablet 650 mg 650 mg oral q6h PRN THEODORA Pettit 650 mg at 06/20/24 1230 ALPRAZolam (XANAX) tablet 0.5 mg 0.5 mg oral Nightly PRN Janay Enriquez MD 0.5 mg at 06/21/24 0017 bisacodyL (DULCOLAX) suppository 10 mg 10 mg rectal Daily PRN Ekta Nieto MD 10 mg at 06/15/24 1512 cevimeline (EVOXAC) capsule 30 mg 30 mg oral TID Laisha Robert MD 30 mg at 06/21/24 1540 dexAMETHasone (DECADRON) injection 4 mg 4 mg intravenous q6h EDEN THEODORA Anaya 4 mg at 06/21/24 1544 dextrose (D50W) 50% injection 12.5 g 12.5 g intravenous q15 min PRN THEODORA Anaya dextrose (D50W) 50% injection 25 g 25 g intravenous q15 min PRN THEODORA Anaya dextrose 15 gram/60 mL oral solution 15 g 15 g oral q15 min PRN THEODORA Anaya dextrose 15 gram/60 mL oral solution 30 g 30 g oral q15 min PRN THEODORA Anaya docusate sodium (COLACE) capsule 100 mg 100 mg oral BID THEODORA Jimenez 100 mg at 06/17/24 0925 doxepin (SINEquan) capsule 100 mg 100 mg oral Nightly THEODORA Massey 100 mg at 06/20/24 2207 DULoxetine (CYMBALTA) DR capsule 60 mg 60 mg oral Daily Laisha Robert MD 60 mg at 06/21/24 0847 famotidine (PEPCID) tablet 20 mg 20 mg oral Daily Laisha Robert MD 20 mg at 06/21/24 0847 gabapentin (NEURONTIN) capsule 500 mg 500 mg oral q8h Edgar Valencia, DO 500 mg at 845 Glucagon HCl (rDNA) injection 1 mg 1 mg intramuscular Once PRN THEODORA Anaya heparin (UFH) injection 5,000 Units 5,000 Units subcutaneous q8h THEODORA Perales 5,000Units at 06/21/24 0845 hydrALAZINE (APRESOLINE) injection 10 mg 10 mg intravenous q4h PRN THEODORA Ortiz 10 mg at 06/17/24 0624 hydrALAZINE (APRESOLINE) tablet 75 mg 75 mg oral BID THEODORA Pettit 75 mg at 06/21/24 0847 insulin lispro injection 1-6 Units 1-6 Units subcutaneous TID AC THEODORA Anaya oxyCODONE (ROXICODONE) immediate release tablet 10 mg 10 mg oral q6h PRN THEODORA Jimenez 10 mg at 06/21/24 1336 oxyCODONE (ROXICODONE) immediate release tablet 5 mg 5 mg oral q6h PRN THEODORA Jimenez 5 mg at 06/17/24 2226 polyethylene glycol (MIRALAX) packet 17 g 17 g oral Daily Laisha Robert MD 17 g at 06/14/24 0839 senna (SENOKOT) tablet 17.2 mg 2 tablet oral BID THEODORA Jimenez 17.2 mg at 06/17/24 0924 sodium chloride 0.9 % flush 10 mL 10 mL intravenous BID Bridgett Renner MD 10 mL at 06/21/24 0847 And sodium chloride 0.9 % flush 10 mL 10 mL intravenous PRN Bridgett Renner MD tiZANidine (ZANAFLEX) tablet 2 mg 2 mg oral Daily Laisha Robert MD 2 mg at 06/21/24 0846 traZODone (DESYREL) tablet 100 mg 100 mg oral Nightly THEODORA Massey 100 mg at 06/20/24 2209 triamterene-hydroCHLOROthiazide (DYAZIDE) 37.5-25 mg per capsule 1 capsule 1 capsule oral Daily THEODORA Ortiz 1 capsule at 06/21/24 0846 valsartan (DIOVAN) tablet 320 mg 320 mg oral Daily THEODORA Fung 320 mg at 06/21/24 0846 Past Medical History: Diagnosis Date Adverse effect of anesthesia several hrs after sx pt had Panic attack Anxiety Arthritis Hypertension Irregular heart beat Joint pain Lymphedema Macular degeneration Home Medications cevimeline (EVOXAC) 30 mg capsule Take 1 capsule (30 mg total) by mouth 3 (three) times a day. doxepin (SINEquan) 100 mg capsule Take 1 [...] by mouth 2 (two) times a day. hydrALAZINE (APRESOLINE) 50 mg tablet Take 1 tablet (50 mg total) by mouth 2 (two) times a day. metoprolol tartrate (LOPRESSOR) 25 mg tablet Take 1 tablet (25 mg total) by mouth 1 (one) time eachday. senna-docusate (PERICOLACE) 8.6-50 mg per tablet Take [...] by mouth 1 (one) time each day. Social History Socioeconomic History Marital status: Single Spouse name: Not on file Number of children: Not on file Years of education: Not on file Highest education level: Not on file Occupational History Not on file Tobacco Use Smoking status: Every Day Current packs/day: 0.50 Types: Cigarettes Passive exposure: Never Smokeless tobacco: Never Substance and Sexual Activity Alcohol use: Not Currently Comment: occasionally Drug use: Yes Types: Marijuana/Cannabis Comment: occasionally Sexual activity: Not Currently Other Topics Concern Not on file Social History Narrative Not on file Objective BP: 110/69 (06/21 1415) Heart Rate: 60 (06/21 1415) Heart Rate Source: Monitor (06/21 1415) Temp: 36.9 ??C (98.4 ??F) (06/21 1415) Temp Source: Oral (06/21 1415) SpO2: 96 % (06/21 1415) Weight: 82 kg (180 lb 12.4 oz) Intake/Output Summary (Last 24 hours) at 06/21/2024 1721 Last data filed at 06/21/2024 1416 Gross per 24 hour Intake 720 ml Output 1300 ml Net -580 ml PHYSICAL EXAM: Physical Exam Constitutional: Appearance: Normal appearance. HENT: Head: Normocephalic. Mouth/Throat: Mouth: Mucous membranes are moist. Eyes: Pupils: Pupils are equal, round, and reactive to light. Cardiovascular: Rate and Rhythm: Normal rate and regular rhythm. Pulmonary: Effort: Pulmonary effort is normal. Breath sounds: Normal breath sounds. Abdominal: General: Bowel sounds are normal. Palpations: Abdomen is soft. Musculoskeletal: Cervical back: Normal range of motion and neck supple. Right lower leg: No edema. Left lower leg: No edema. Skin: General: Skin is warm and dry. Neurological: General: No focal deficit present. Mental Status: She is alert. RESULTS: Labs: Labs: Lab Results Component Value Date WBC 13.9 (H) 06/21/2024 HGB 12.4 (L) 06/21/2024 HCT 36.9 (L) 06/21/2024 PLT 359 06/21/2024 ALT 20 06/08/2024 AST 10 06/08/2024 NA 134 (L) 06/15/2024 K 4.2 06/15/2024 CL 99 06/15/2024 CREATININE 0.60 06/15/2024 BUN 16 06/15/2024 CO2 30 06/15/2024 I personally reviewed. Microbiology: No results found for this or any previous visit (from the past 168 hour(s)). Imaging: CT Thoracic Spine wo Contrast Narrative: [...] on 06/14/2024 6:04 PM. Workstation Name - [id number] -------- FINAL REPORT -------- Dictated By: Chetan Barclay Dictated Date: 06/14/2024 17:59 ET Assigned Physician: Chetan Barclay Reviewed and Electronically Signed By: Chetan Barclay Signed Date: 06/14/2024 18:04 ET Workstation ID: [id number] Transcribed By: Self Edit Transcribed Date: 06/14/2024 17:59 ET I personally reviewed and interpreted this imaging. Assessment/Plan Patient Active Problem List Diagnosis Lumbar spondylosis Onychomycosis Pain in toe Sacroiliitis (CMS/HCC) Spondylolisthesis Cervical spondylosis Spinal stenosis of thoracic region Thoracic spinal stenosis Age-related macular degeneration Anxiety Atrial flutter (CMS/HCC) Obstructive sleep apnea syndrome Deep vein thrombosis (DVT) of lower extremity (CMS/HCC) History of artificial joint Hypertension Osteoarthritis of hip Peripheral venous insufficiency S/P tonsillectomy and adenoidectomy Bradycardia Thoracic myelopathy #Assessment and Plan 68-year-old lady who is currently status post decompression thoracic T6-7 facetectomy, with past medical history of hypertension, paroxysmal atrial flutter with secondary hypercoagulable state, spinal stenosis. # Hypertension: -Patient has been having elevated blood pressures. -Patient is on valsartan 320 mg daily, triamterene-hydrochlorothiazide 37.5-25 mg daily, hydralazine 50 mg twice daily. -During this hospitalization her hydralazine dose was increased to 75 mg twice daily. -Blood pressure is much improved. -Continue to monitor blood pressure. # Anxiety: -Psych involved. -Follow-up their recommendations. -On doxepin, Cymbalta. -I recommended Xanax yesterday which helped the patient. Patient does not want to take Ativan as itworsened her condition. # Thoracic spinal stenosis: -S/p T5-T8 fusion, T5-7 decompression, T6/7 facetectomy. -Primary team managing. -On dexamethasone, tizanidine. #DVT Prophylaxis: Heparin #Code Status: No CPR/Do Not Intubate * Shari Ye RN - 06/21/2024 3:50 PM EST Case Management Discharge Planning Current Discharge Plan: [facility] Barriers: Today's Updates Pt aware that [facility] has offered a bed; Pt awaiting [facility] as it would be closer to home. [facility] reviewing pt for possible bed offer Current Unplanned Readmission Risk Level: Patient Preference for Discharge: History of this admission Pt is 68 y.o. and is admitted for Thoracic spinal stenosis [M48.04]. Previous Daily Updates: Home Environment & Baseline Functional Status Type of residence: Baseline level of independence with ADL's: At baseline, is assistance required for reading or filling out forms: Friends/family who are able to provide support in the home: Current home care/community resources: Transportation: DME: DME Company: Outpatient Providers PCP: Specialists: Financial info Primary insurance: Monthly income source (if info needed for placement): Medicaid screening needed?: Is pt a ?: Pharmacy Home Pharmacy: Meds to go preferred?: Medical Durable Power of [employer]/Guardianship Does pt have an activated DPOA or guardian: DPOA/Guardian info: Has pt ever completed adv directives?: * Shari Ye RN - 06/21/2024 10:07 AM EST Case Management Discharge Planning Current Discharge Plan: [facility] Barriers: [facility] referrals are pending; physiatry consult needed Today's Updates RNJAISON spoke with pt this am to discusss D/c plan. Pt informed that [facility] is reviewing pt for possiblebed offer . Pt in agreement with referral but would like to get a rehab facility closer to home in [facility] In rehab indicated that pt needs a physiatry consult to asst with bed offer. in formed of the request. Current Unplanned Readmission Risk Level: Patient Preference for Discharge: History of this admission Pt is 68 y.o. and is admitted for Thoracic spinal stenosis [M48.04]. Previous Daily Updates: Home Environment & Baseline Functional Status Type of residence: Baseline level of independence with ADL's: At baseline, is assistance required for reading or filling out forms: Friends/family who are able to provide support in the home: Current home care/community resources: Transportation: DME: DME Company: Outpatient Providers PCP: F/u appt preference if applicable: Specialists: Financial info Primary insurance: Monthly income source (if info needed for placement): Medicaid screening needed?: Is pt a ?: Pharmacy Home Pharmacy: Meds to go preferred?: Medical Durable Power of [employer]/Guardianship Does pt have an activated DPOA or guardian: DPOA/Guardian info: Has pt ever completed adv directives?: * MIGUEL ANGEL Aragon/Analy - 06/21/2024 9:58 AM EST Images from the original note were not included. OCCUPATIONAL THERAPY TREATMENT NOTE [address] [id number] Occupational Therapy Summary and Impressions OT Treatment Note 06/21/2024: Pt seen today for OT treatment session: admitted 06/10/2024 adm with paraplegia. Pt with h/o thoracic spine stenosis, s/p thoracic spinal decompression surgery x 2, T6-7 lami for for presumed thoracic disc-postop unable to ambulate. A week later underwent extension of laminectomy- postop lost sensation in right leg. Transferred from rehab to [facility], unable to ambulate. 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 OR 06/11 for T5-T8 fusion, T5-7 decompression, T6-7 facetectomy, removal large ventral extradural calcified mass. Pt met in bed. A&Ox4.Reports 3/10 pain in back. Pt seen with PT 2' medical complexity. Pt completed bed mobility of supine > sit with MaxAx2 and sit > supine with MaxA. Pt required ModA for bed mobility of rolling.Pt engaged in sitting at EOB for dynamic and static sitting balance. Pt required MaxA for dynamic balance and Dg for static sitting balance utilizing b/l UE for support. Pt completed lateral weightshifting onto b/l elbows with Mod/Max for facilitation. Pt engaged in long sitting in bed with MinAx2 for facilitation of scapular retractions. Pt engaged in UB grooming while sitting at EOB of washing face with MaxA for support. Pt participated in UB bathing with Dg while supine, and LB bathing with MaxA. Pt LB ADLs TotalA , UB ADLs, Dg. Overall Pt continues to present with decreased endurance, activity tolerance, trunk control, mobility, and ADL status. Progressing toward goals, continue OT during acute stay. Anticipate OT needs 5x/week upon DC. Recommend discharge as per interdisciplinary team. Pia Cornejo OTLalo, OTR/L Additional Individuals Present for Session: THOMAS Naidu OT Frequency at Discharge: 5x per wk OT Discharge Recommendation: As per disciplinary team [facility]: AM-PAC?? Daily Activity Inpatient Short Form (6-Clicks) How much HELP from another person do you currently need??? (If the patient hasn???t done an activity recently, how much help from another person do you think he/she would need if he/she tried?) 1=Total assist (dependent, cannot do at all, 2 person assist) 2=A lot (maximum to moderate assist) 3=A little (minimal, contact guard, stand by, supervision) 4=None (does not require help, independent, mod I) 1. Putting on and taking off regular lower body clothing? 1 - Total 2. Bathing (including washing, rinsing, drying)? 2 - A Lot 3. Toileting, which includes using toilet, bedpan or urinal? 1 - Total 4. Putting on and taking off regular upper body clothing? 3 - A Little 5. Taking care of personal grooming such as brushing teeth? 3 - A Little 6. Eating meals? 3 - A Little AM-PAC?? RAW SCORE 13E/24 Patient Behaviors Cooperative , Pleasant, and Motivated 06/21/24 0958 OT Last Visit OT Received On 06/21/24 Precautions Medical Precautions Fall Risk Safety Interventions Call [place] within reach;Bed alarm;ID band on RUE Weight Bearing Status Full LUE Weight Bearing Status Full RLE Weight Bearing Status Full LLE Weight Bearing Status Full Orthopedic Precautions Back Precautions Pain Assessment Pain Assessment 0-10 Pain Score 3 Pain Type Surgical pain Pain Location Back Pain Orientation Mid Pain Descriptors Discomfort Pain Frequency Constant/continuous Patient's Pain Goal No pain Pain Interventions Repositioned;Rest ADLs/IADLs Self Care/Home Management (ADLs) Time Entry 15 Static Sitting Balance Static Sitting-Level of Assistance Minimum assistance Static Sitting-Balance Support Feet supported;Left upper extremity supported;Right upper extremity supported Dynamic Sitting Balance Dynamic Sitting-Level of Assistance Moderate assistance;Maximum assistance Dynamic Sitting-Balance Forward lean;Lateral lean;Outside base of support;During completion of ADLs Dynamic Sitting-Balance Support Feet supported;Left upper extremity supported;Right upper extremitysupported Cognition Overall Cognitive Status WFL Arousal/Alertness Appropriate responses to stimuli Orientation Level Oriented X4 Perseveration Not present Perception Inattention/Neglect Appears intact Initiation Appears intact Motor Planning Appears intact Balance/Neuromuscular Re-Education Neuromuscular Re-Education Time Entry 15 Therapeutic Activity Therapeutic Activity Time Entry 15 OT Assessment Prognosis Good Plan OT Plan Skilled OT OT Frequency 4 days per week Education Chart reviewed, RN cleared pt for therapy. Pt left in bed, alarm engaged nursing aware, all lines in tact, call [place] in reach, in no acute distress. Progressing towards goals 06/21/2024 BUSTER Aragon, OTR/L * Elysia Peralta, PT - 06/21/2024 9:57 AM EST Images from the original note were not included. PHYSICAL THERAPY TREATMENT NOTE [address] [id number] Physical Therapy Summary and Impressions Per Neurosurgery consult on 06/11: Yuly Montoya is a 68 y.o. female adm with paraplegia. Pt withh/o thoracic spine stenosis, s/p thoracic spinal decompression surgery x 2, T6-7 lami for for presumed thoracic disc-postop unable to ambulate. A week later underwent extension of laminectomy-postop lost sensation in right leg. Transferred from rehab to [facility], unable to ambulate. Imaging showed largeT6/7 intracanal mass (disc vs meningioma). OR 06/11 for T5- T8 fusion, T5-7 decompression, T6-7 facetectomy, removal large ventral extradural calcified mass. Pt rolls with mod A & use of bed rail. Supine to sit with max A x 2. Sat EOB with max A; + loss of balance all directions. Improved to min-mod A with cues for midline, upright posture. Pt participated in dynamic sitting balance activities with mod-max A; R & L lateral lean to elbow on double-folded pillow x 10 gentle mini-bounces on elbow with return to midline. L>R UE reaching activities; pt preferred to use R hand psychiatric nurse on bed rail for stability. 5 reps pull to long-sit from supine HOB 40 deg with emphasis on upright posture & slow eccentric control BTB. Sitting activity limited by fatigue. Sit to supine with max A x 1 RLE Sensation: pt reports numbness t/o LLE, no localization on R side until ~ T1 dermatome on R abdomen. RLE Motor: 0/5, flaccid. Encouraged mental practice of RLE movement when actively moving L distal LE. LLE Sensation: intact LT & localization. LLE Motor: aDF & aPF 2/5, o/w 0/5, hypotonic. Encouraged active AP therex. Provided PROM BLEs all planes, static Achilles' & HS stretching. Recommend: PM&R / Physiatry consult Pt presents with multiple functional impairments (see assessment & tx details below). Pt is notcurrently at baseline level of functional mobility. Continue with skilled PT as below during hospital stay to maximize mobility & independence. Additional Individuals Present for Session: Pia OMALLEY PT Frequency at Discharge: 5x per wk PT Discharge Recommendation: As per disciplinary team [facility]: Basic Mobility: 7E>D 06/21/24 0957 PT Last Visit PT Received On 06/21/24 Precautions Medical Precautions Fall Risk Safety Interventions Call [place] within reach;Bed alarm;ID band on RUE Weight Bearing Status Full LUE Weight Bearing Status Full RLE Weight Bearing Status Full LLE Weight Bearing Status Full Pain Assessment Pain Assessment 0-10 Pain Score 3 Pain Type Surgical pain Pain Location Back Pain Orientation Mid Pain Interventions Repositioned;Rest Cognition Overall Cognitive Status WFL Orientation Level Oriented X4 Cognition Comments Pt followed 100% instructions during session within her physical ability. PT Assessment PT Assessment Results Decreased mobility;Impaired gait;Impaired balance;Decreased endurance;Decreased strength;Pain;Impaired sensation;Decreased coordination Prognosis Good Plan Treatment/Interventions Functional transfer training;LE strengthening/ROM;Endurance training;Patient/family training;Equipment eval/education;Bed mobility;Gait training;Compensatory technique educatio n;Continued evaluation;Balance training PT Plan Skilled PT PT Frequency 4 days per week Education Pt cleared for PT tx per provider orders. Met pt in bed, reviewed role of PT, pt was agreeable to PT tx. Tx as above. Reviewed use of CB, PT POC in hospital. Left pt in NAD, bed alarm on, lines intact, CB in reach. RNaware of pt's functional status. MDT updated on PT recommendations per protocol. 06/21/2024 Elysia Peralta PT * Fidel Hollingsworth LPN - 06/21/2024 9:53 AM EST Problem: Self-Care: IPR IPOC Goal: Patient/caregiver collaborates in the IPR process in person or with business team leader Outcome: Progressing Problem: Falls: Fall Risk (Adult IP BH) Goal: Patient will not fall or injure themselves during hospitalization. Outcome: Progressing Problem: Physical Regulation:Physical Mobility Impairment Goal: Ability to avoid complications of mobility impairment will improve Outcome: Progressing Problem: Cognitive:Transitional Care Goal: Barriers related to transition Outcome: Progressing Problem: Sensory:Periop Procedure - Major Goal: Demonstrates/reports adequate pain control Outcome: Progressing Problem: Skin Integrity: Periop Procedure - Major Goal: Patient will remain free of injury and skin integrity maintained Outcome: Progressing Problem: Sensory: Acute Pain Goal: Ability to develop a pain control plan will improve Outcome: Progressing Problem: Physical Regulation:Infection Risk Of Goal: Will remain free from infection Outcome: Progressing A@Ox4. No further concerns as of present. Patient resting in bed. Respirations even and unlabored no distress noted on exam. Plan of care ongoing. Call [place], table and personal items within reach. Bed in lowest position. Patients needs met by staff. Fidel Hollingsworth LPN * THEODORA Moncada - 06/21/2024 7:21 AM EST Ortho Thoracic/Lumbar Spine [facility] Note Subjective: Fair spirits this am. Does note becoming sweaty at night, although not last night. No fevers. Otherwise feeling well when she is awake. Denies cp,sob. Looking forward to rehab placement Objective: Vitals: 06/21/24 0414 BP: 110/64 Pulse: 62 Resp: 18 Temp: 36.7 ??C (98.1 ??F) SpO2: 95% BACK: Dressing clean, dry and intact LOWER EXTREMITY: L2: Psoas L3: Quadriceps L4: Tibialis Anterior L5: Extensor Hallucis Longus S1: Gastrocnemius, Soleus RIGHT 0/5 0/5 0/5 0/5 0/5 LEFT 0/5 0/5 4/5 4/5 4/5 *Exam consistent with previously documented. No acute changes. LLE: Deep peroneal, Superficial peroneal, and Tibial nerves intact RLE: Diffusely diminished sensation throughout the right lower extremity. I/O last 3 completed shifts: In: 10 (0.1 mL/kg) [I.V.:10 (0.1 mL/kg)] Out: 3300 (40.2 mL/kg) [Urine:3300 (1.1 mL/kg/hr)] Weight: 82 kg Assessment: POD #10 s/p T5-[address] Ramirez Hall MD Plan: Activity: Out of bed as tolerated DVT prophylaxis: HSQ Physical therapy to mobilize Diet: Regular diet as tolerated Consults: [facility]IM[facility] and Psychiatry Discharge to rehab facility once available. Jorgito Butt PA-C Orthopedic Surgery General Ortho [phone] [facility] Pager [phone] * Ruma Brooks RN - 06/21/2024 5:55 AM EST VRN: pt awake and alert, reports having a good overnight, feels much better today, took xanax last night w/ good effect, and verbalized her appreciation for all staff taking care of her. 06/21/24 0555 Safe Environment Arm Bands On ID The Patient's Environment is Safe Yes Side Rails/Bed Safety 3/4 * Ruma Brooks RN - 06/21/2024 2:37 AM EST Problem: Self-Care: IPR IPOC Goal: Patient/caregiver collaborates in the IPR process in person or with business team leader Outcome: Progressing Problem: Cognitive:Transitional Care Goal: Barriers related to transition Outcome: Progressing Note: Anticipated rehab placement upon discharge Problem: Skin Integrity: Periop Procedure - Major Goal: Patient will remain free of injury and skin integrity maintained Outcome: Progressing Note: Three Post op back surgeries ,most recent 06/11, pt has a varma catheter in place d/t neurogenic bladder, catheter w/ clear yellow urine. Problem: Sensory: Acute Pain Goal: Ability to develop a pain control plan will improve Outcome: Progressing Note: Adequate pain control this shift, currently pt is sleeping in bed, resps @ ease on room air, compression boots on, no acute distress noted. Goals: increased mobility/sensation post op Identify possible barriers to meeting goals/advancing plan of care: anxiety Stability of the patient: Moderately Stable - Low risk of patient condition declining or worsening * Ruma Brooks RN - 06/20/2024 9:38 PM EST Patient resting in bed without any observable signs of discomfort or distress. Respirations even and unlabored. Will continue virtual rounds overnight for routine safety checks. Will not announce nurse presence during rounds to ensure minimal disruption to patient's rest. 06/20/24 2137 Safe Environment Arm Bands On ID The Patient's Environment is Safe Yes Side Rails/Bed Safety 34 * Shabana Buckley RN - 06/20/2024 6:16 PM EST Goals: Identify possible barriers to meeting goals/advancing plan of care: Stability of the patient: Moderately Stable - Low risk of patient condition declining or worsening End of Shift Summary: Discussed side effects of decadron with pt. Pt having feeling of visceral discomfort. Resolved with ativan Team made aware. Pt in good spirits. Cooperative with care. * Dona Dougherty RN - 06/20/2024 3:02 PM EST 06/20/24 1500 Safe Environment Arm Bands On ID The Patient's Environment is Safe Other (Comment) (call [place] within reach, overbed table within reach, CLAY bed wheels/position, CLAY non-skid footwear) Side Rails/Bed Safety 2/4 vRN rounding. Pt denies pain. Pt denies n/v/d. Pt on phone call with friend. Safety check completed. * Ramirez Hall MD - 06/20/2024 11:20 AM EST Neurosurgery S/p thoracic decompression/fusion Was in ICU to keep MAP's > 85 mmHg, she had no joão hypotension Right leg remains weak Visit Vitals BP (!) 159/89 (BP Location: Left arm, Patient Position: Lying) Pulse 59 Temp 37.2 ??C (99 ??F) (Oral) Resp 18 Ht 1.575 m (62 ) Wt 82 kg (180 lb 12.4 oz) SpO2 96% BMI 33.06 kg/m?? OB Status Postmenopausal Smoking Status Every Day BSA 1.83 m?? cevimeline, 30 mg, oral, TID dexAMETHasone, 4 mg, intravenous, q6h EDEN docusate sodium, 100 mg, oral, BID doxepin, 100 mg, oral, Nightly DULoxetine, 60 mg, oral, Daily famotidine, 20 mg, oral, Daily gabapentin, 500 mg, oral, q8h heparin (porcine), 5,000 Units, subcutaneous, q8h EDEN hydrALAZINE, 75 mg, oral, BID insulin lispro, 1-6 Units, subcutaneous, TID AC nitrofurantoin (macrocrystal-monohydrate), 100 mg, oral, q24h polyetheylene glycol, 17 g, oral, Daily senna, 2 tablet, oral, BID sodium chloride, 10 mL, intravenous, BID tiZANidine, 2 mg, oral, Daily traZODone, 100 mg, oral, Nightly triamterene-hydroCHLOROthiazide, 1 capsule, oral, Daily valsartan, 320 mg, oral, Daily PRN medications: acetaminophen, bisacodyL, dextrose 50%, dextrose 50%, dextrose, dextrose, glucagoninjection, hydrALAZINE, LORazepam, oxyCODONE, oxyCODONE, Insert peripheral IV AND Maintain IV access AND Saline lock IV AND sodium chloride AND sodium chloride Plan: D/c planning * Janay Enriquez MD - 06/20/2024 9:13 AM EST Attending Provider: Ramirez Hall MD PCP: Solis Roman MD Hospital Day: 11 CC:Yuly Montoya is a 68 y.o. female who presents with No chief complaint on file. Subjective Patient was seen and examined the morning. Patient complains of anxiety, she mentioned she got Ativan yesterday but that did not help her. Current Facility-Administered Medications Medication Dose Route Frequency Provider Last Rate Last Admin acetaminophen (TYLENOL) tablet 650 mg 650 mg oral q6h PRN THEODORA Pettit 650 mg at 06/19/242044 bisacodyL (DULCOLAX) suppository 10 mg 10 mg rectal Daily PRN Ekta Nieto MD 10 mg at 06/15/241511 cevimeline (EVOXAC) capsule 30 mg 30 mg oral TID Laisha Robert MD 30 mg at 06/19/242052 dexAMETHasone (DECADRON) injection 4 mg 4 mg intravenous q6h [facility] THEODORA Anaya 4 mg at 06/20/24 0534 dextrose (D50W) 50% injection 12.5 g 12.5 g intravenous q15 min PRN THEODORA Anaya dextrose (D50W) 50% injection 25 g 25 g intravenous q15 min PRN THEODORA Anaya dextrose 15 gram/60 mL oral solution 15 g 15 g oral q15 min PRN THEODORA Anaya dextrose 15 gram/60 mL oral solution 30 g 30 g oral q15 min PRN THEODORA Anaya docusate sodium (COLACE) capsule 100 mg 100 mg oral BID THEODORA Jimenez 100 mg at 06/17/24 09 doxepin (SINEquan) capsule 100 mg 100 mg oral Nightly THEODORA Massey 100 mg at 06/19/24 204 DULoxetine (CYMBALTA) DR capsule 60 mg 60 mg oral Daily Laisha Robert MD 60 mg at 06/20/24 0837 famotidine (PEPCID) tablet 20 mg 20 mg oral Daily Laisha Robert MD 20 mg at 06/20/24 0839 gabapentin (NEURONTIN) capsule 500 mg 500 mg oral q8h Edgar Valencia DO 500 mg at 544 Glucagon HCl (rDNA) injection 1 mg 1 mg intramuscular Once PRN THEODORA Anaya heparin (UFH) injection 5,000 Units 5,000 Units subcutaneous q8h [facility] THEODORA Fung 5,000Units at 06/20/24 0544 hydrALAZINE (APRESOLINE) injection 10 mg 10 mg intravenous q4h PRN THEODORA Ortiz 10 mg at 06/17/24 0624 hydrALAZINE (APRESOLINE) tablet 75 mg 75 mg oral BID THEODORA Pettit 75 mg at 06/20/24 0835 insulin lispro injection 1-6 Units 1-6 Units subcutaneous TID THEODORA Anaya LORazepam (ATIVAN) tablet 0.5 mg 0.5 mg oral Daily PRN THEODORA Massey 0.5 mg at 06/19/24 2317 nitrofurantoin (macrocrystal-monohydrate) (MACROBID) capsule 100 mg 100 mg oral q24h THEODORA Fung 100 mg at 06/19/24 1149 oxyCODONE (ROXICODONE) immediate release tablet 10 mg 10 mg oral q6h PRN THEODORA Jimenez 10 mg at 06/20/24 0840 oxyCODONE (ROXICODONE) immediate release tablet 5 mg 5 mg oral q6h PRN THEODORA Jimenez 5 mg at 06/17/24 2226 polyethylene glycol (MIRALAX) packet 17 g 17 g oral Daily Laisha Robert MD 17 g at 06/14/24 0839 senna (SENOKOT) tablet 17.2 mg 2 tablet oral BID THEODORA Jimenez 17.2 mg at 06/17/24 0924 sodium chloride 0.9 % flush 10 mL 10 mL intravenous BID Bridgett Renner MD 10 mL at 06/19/242054 And sodium chloride 0.9 % flush 10 mL 10 mL intravenous PRN Bridgett Renner MD tiZANidine (ZANAFLEX) tablet 2 mg 2 mg oral Daily Laisha Robert MD 2 mg at 06/20/24 0854 traZODone (DESYREL) tablet 100 mg 100 mg oral Nightly THEODORA Massey 100 mg at 06/19/24 2045 triamterene-hydroCHLOROthiazide (DYAZIDE) 37.5-25 mg per capsule 1 capsule 1 capsule oral Daily THEODORA Ortiz 1 capsule at 06/20/24 0854 valsartan (DIOVAN) tablet 320 mg 320 mg oral Daily THEODORA Fung 320 mg at 06/20/24 0838 Past Medical History: Diagnosis Date Adverse effect of anesthesia several hrs after sx pt had Panic attack Anxiety Arthritis Hypertension Irregular heart beat Joint pain Lymphedema Macular degeneration Home Medications cevimeline (EVOXAC) 30 mg capsule Take 1 capsule (30 mg total) by mouth 3 (three) times a day. doxepin (SINEquan) 100 mg capsule Take 1 [...] by mouth 2 (two) times a day. hydrALAZINE (APRESOLINE) 50 mg tablet Take 1 tablet (50 mg total) by mouth 2 (two) times a day. metoprolol tartrate (LOPRESSOR) 25 mg tablet Take 1 tablet (25 mg total) by mouth 1 (one) time eachday. senna-docusate (PERICOLACE) 8.6-50 mg per tablet Take [...] by mouth 1 (one) time each day. Social History Socioeconomic History Marital status: Single Spouse name: Not on file Number of children: Not on file Years of education: Not on file Highest education level: Not on file Occupational History Not on file Tobacco Use Smoking status: Every Day Current packs/day: 0.50 Types: Cigarettes Passive exposure: Never Smokeless tobacco: Never Substance and Sexual Activity Alcohol use: Not Currently Comment: occasionally Drug use: Yes Types: Marijuana/Cannabis Comment: occasionally Sexual activity: Not Currently Other Topics Concern Not on file Social History Narrative Not on file Objective BP: 159/89 (06/20 843) Heart Rate: 59 (06/20 843) Temp: 37.2 ??C (99 ??F) (06/20 843) Temp Source: Oral (06/20 843) SpO2: 96 % (06/20 545) Weight: 82 kg (180 lb 12.4 oz) Intake/Output Summary (Last 24 hours) at 06/20/2024 0913 Last data filed at 06/20/2024 0608 Gross per 24 hour Intake 510 ml Output 3500 ml Net -2990 ml PHYSICAL EXAM: Physical Exam Constitutional: Appearance: Normal appearance. HENT: Head: Normocephalic. Mouth/Throat: Mouth: Mucous membranes are moist. Eyes: Pupils: Pupils are equal, round, and reactive to light. Cardiovascular: Rate and Rhythm: Normal rate and regular rhythm. Pulmonary: Effort: Pulmonary effort is normal. Breath sounds: Normal breath sounds. Abdominal: General: Bowel sounds are normal. Palpations: Abdomen is soft. Musculoskeletal: Cervical back: Normal range of motion and neck supple. Right lower leg: No edema. Left lower leg: No edema. Skin: General: Skin is warm and dry. Neurological: General: No focal deficit present. Mental Status: She is alert. RESULTS: Labs: Labs: Lab Results Component Value Date WBC 12.5 (H) 06/18/2024 HGB 12.1 (L) 06/18/2024 HCT 35.5 (L) 06/18/2024 PLT 341 06/18/2024 ALT 20 06/08/2024 AST 10 06/08/2024 NA 134 (L) 06/15/2024 K 4.2 06/15/2024 CL 99 06/15/2024 CREATININE 0.60 06/15/2024 BUN 16 06/15/2024 CO2 30 06/15/2024 I personally reviewed. Microbiology: No results found for this or any previous visit (from the past 168 hour(s)). Imaging: CT Thoracic Spine wo Contrast Narrative: [...] Report reviewed and signed by : Dr. hCetan Barclay on 06/14/2024 6:04 PM. Workstation Name - [id number] -------- FINAL REPORT -------- Dictated By: Chetan Barclay Dictated Date: 06/14/2024 17:59 ET Assigned Physician: Chetan Barclay Reviewed and Electronically Signed By: Chetan Barclay Signed Date: 06/14/2024 18:04 ET Workstation ID: [id number] Transcribed By: Self Edit Transcribed Date: 06/14/2024 17:59 ET I personally reviewed and interpreted this imaging. Assessment/Plan Patient Active Problem List Diagnosis Lumbar spondylosis Onychomycosis Pain in toe Sacroiliitis (CMS/HCC) Spondylolisthesis Cervical spondylosis Spinal stenosis of thoracic region Thoracic spinal stenosis Age-related macular degeneration Anxiety Atrial flutter (CMS/HCC) Obstructive sleep apnea syndrome Deep vein thrombosis (DVT) of lower extremity (CMS/HCC) History of artificial joint Hypertension Osteoarthritis of hip Peripheral venous insufficiency S/P tonsillectomy and adenoidectomy Bradycardia Thoracic myelopathy #Assessment and Plan 68-year-old lady who is currently status post decompression thoracic T6-7 facetectomy, with past medical history of hypertension, paroxysmal atrial flutter with secondary hypercoagulable state, spinal stenosis. # Hypertension: -Patient has been having elevated blood pressures. -Patient is on valsartan 320 mg daily, triamterene-hydrochlorothiazide 37.5-25 mg daily, hydralazine 50 mg twice daily. -During this hospitalization her hydralazine dose was increased to 75 mg twice daily. -Blood pressure is improved to 136/80 today -Continue to monitor blood pressure. # Anxiety: -Psych involved. -Follow-up their recommendations. -On doxepin, Cymbalta. -I will order Xanax instead of Ativan. # Thoracic spinal stenosis: -S/p T5-T8 fusion, T5-7 decompression, T6/7 facetectomy. -Primary team managing. -On dexamethasone, tizanidine. #DVT Prophylaxis: Heparin #Code Status: No CPR/Do Not Intubate * THEODORA Mota - 06/20/2024 6:08 AM EST Ortho Thoracic/Lumbar Spine PAOphelia Note Subjective: This morning patient reports that she is feeling better than before. She states that she had a morgan sleep. Pain controlled Tolerating diet. No CP/SOB/difficulty swallowing/MELGAR/Ab pain/vomiting. She is anticipating discharge to rehab pending placement Objective: Vitals: 06/20/24 0546 BP: (!) 152/82 Pulse: 60 Resp: 18 Temp: 36.5 ??C (97.7 ??F) SpO2: 96% BACK: Dressing clean, dry and intact LOWER EXTREMITY: L2: Psoas L3: Quadriceps L4: Tibialis Anterior L5: Extensor Hallucis Longus S1: Gastrocnemius, Soleus RIGHT 0/5 0/5 0/5 0/5 0/5 LEFT 0/5 0/5 4/5 4/5 4/5 *Exam consistent with previously documented. No acute changes. LLE: Deep peroneal, Superficial peroneal, and Tibial nerves intact RLE: Diffusely diminished sensation throughout the right lower extremity. I/O last 3 completed shifts: In: 1000 (12.2 mL/kg) [P.O.:1000] Out: 6725 (82 mL/kg) [Urine:6725 (2.3 mL/kg/hr)] Weight: 82 kg Assessment: POD #9 s/p T5-[address] Ramirez Hlal MD Plan: Activity: Out of bed as tolerated DVT prophylaxis: HSQ Physical therapy to mobilize Pain control Diet: Regular diet as tolerated Consults: [facility] and Psychiatry Discharge to rehab facility once available. Likely tomorrow given today is a holiday * Ruma Brooks RN - 06/20/2024 4:24 AM EST Patient appears to be sleeping in bed without any observable signs of discomfort or distress. Respirations even and unlabored on r/a, compression boots on. Will continue virtual rounds overnight for routine safety checks. Will not announce nurse presence during rounds to ensure minimal disruption to patient's rest. 06/20/24 0424 Safe Environment Arm Bands On ID The Patient's Environment is Safe Yes Side Rails/Bed Safety 08/21 * Ruma Brooks RN - 06/19/2024 11:25 PM EST VRN: pt is alert/awake, reports feeling anxious, has received ativan, instructed pt to use spirometer and demonstrated well, deep breaths helping with calming pt as well, emotional support provided. 06/19/24 2325 Safe Environment Arm Bands On ID The Patient's Environment is Safe Yes Side Rails/Bed Safety 08/21 * Araceli Morillo RN - 06/19/2024 6:00 PM EST Problem: Physical Regulation:Physical Mobility Impairment Goal: Ability to avoid complications of mobility impairment will improve Outcome: Progressing Problem: Skin Integrity: Periop Procedure - Major Goal: Patient will remain free of injury and skin integrity maintained Outcome: Progressing Goals: Identify possible barriers to meeting goals/advancing plan of care: Pt working with PT daily and feeling encouraged to continue Stability of the patient: Moderately Stable - Low risk of patient condition declining or worsening End of Shift Summary: Pt awaiting discharge order and looking forward to her rehabilitation. * MIGUEL ANGEL Cam/Analy - 06/19/2024 2:40 PM EST OCCUPATIONAL THERAPY TREATMENT NOTE [address] [id number] Occupational Therapy Summary and Impressions OT Treatment completed on 06/19/2024. Pt received lying supine in bed upon therapist's arrival. Pt eager and motivated for therapy. Pt participated in functional transfer training in order to complete ADLS. Pt performed supine to sit with HOB elevated at MAX A X 2 level. Pt sat at EOB with poor sitting balance/ trunk control. Pt participated in static and dynamic sitting balance act with B UE support as well as unilateral support while reaching and challenging base of support including anterior<-> posterior weight shifting in prep to complete ADLS. Pt participated in grooming task of combing hair while seated at EOB at MAX A for balance with unilateral UE support. Pt tolerated ~ 12 min of sitting at EOB. Pt performed sit to supine at DEP A X 2 level. Pt was found to be incontinent of stool after sitting at EOB. Pt performed rolling in bed to R/L sides at MOD A level with use of BUE on bed rails to pull self into rolling. Pt required DEP A for perineal care. Pt continues to present with decreased trunk control, LE AROM, strength, sensation, endurance, act irma, balance, functional transfers, functional mobility, and function with ADLS. Cont with OT POC. Discharge Recommendations: As per interdisciplinary team. - MIGUEL ANGEL Cam/Analy Additional Individuals Present for Session: Cathi PT OT Frequency at Discharge: 5x/wk OT Discharge Recommendation: As per disciplinary team [facility]: Daily Activity: 10DE 06/19/24 1440 OT Last Visit OT Received On 06/19/24 Precautions Medical Precautions Fall Risk Safety Interventions Call [place] within reach;ID band on;Bed alarm;Side rails up x2 RUE Weight Bearing Status Full LUE Weight Bearing Status Full RLE Weight Bearing Status Full LLE Weight Bearing Status Full Orthopedic Precautions Back Precautions Pain Assessment Pain Assessment No/denies pain Cognition Overall Cognitive Status WFL Arousal/Alertness Appropriate responses to stimuli Following Commands Follows all commands and directions without difficulty Perception Inattention/Neglect Cues to maintain midline in sitting Initiation Cues to initiate tasks Motor Planning Cues to use objects appropriately Sensation Light Touch Severe deficits in the LLE Sensation Comments Intact B UE OT Assessment Prognosis Good Evaluation/Treatment Tolerance Patient tolerated treatment well Plan Treatment Interventions ADL retraining;Functional transfer training;UE strengthening/ROM;Endurance training;Patient/family training;Equipment evaluation/education;Compensatory technique education;Neuromuscular reeducation OT Plan Skilled OT OT Frequency 4 days per week Education Pt educated on the role of OT, OT plan of care, transfer tech, discharge recommendations, and call [place] system. Pt demonstrated good understanding of education learned. Will continue to educate and reinforce. 06/19/2024 MIGUEL ANGEL Cam/L * Cathi Brown, PT - 06/19/2024 2:37 PM EST Images from the original note were not included. PHYSICAL THERAPY TREATMENT NOTE [address] [place] [address] Physical Therapy Summary and Impressions Yuly Montoya is a 68 y.o. female met s/p adm for h/o thoracic spine stenosis s/p thoracic spinaldecompression surgery x 2 then BLE weakness postop 05/24, another surgery 06/01 then worsening neurological deficits requiring OR again on 06/11 for T5-7 decompression, T6-7 facetectomy and removal ofmass. Pt met willing/able/eager to participate in session. Max assist of 2 for supine<>sit hob elev and stability work / trunk strengthening eob sitting with BUE and unilateral arm support. Modassist for rolling R<>L for dependent clean up. Pt presents with no intact sensation to LT orpressure to RLE and only minimally felt noxious stim to R quad but reported it being on L thigh. LLE intact to sensation. RLE only noted very minor toe wiggle and GS, no QS contraction noted this date. Patient cleared for therapy: yes Precautions: surgical spine Patient willing/able to participate in session: yes Pain: mod at mid back radiating to R flank VS: stable Pt would benefit from continued skilled PT services during hospital stay to maximize fxnl mob and independence. REC: daily oobtc via mechanical lift with nursing staff. Additional Individuals Present for Session: Leonardo Doyle OT PT Frequency at Discharge: 5x/wk PT Discharge Recommendation: As per disciplinary team [facility]: Basic Mobility: 6E 06/19/24 1437 PT Last Visit PT Received On 06/19/24 Precautions Safety Interventions Call [place] within reach;ID band on;Bed alarm RUE Weight Bearing Status Full LUE Weight Bearing Status Full RLE Weight Bearing Status Full LLE Weight Bearing Status Full Orthopedic Precautions Back Precautions Pain Assessment Pain Assessment 0-10 Pain Score 6 Pain Type Surgical pain Pain Location Back Pain Orientation Mid Pain Radiating Towards R flank Pain Descriptors Aching;Discomfort Pain Frequency Constant/continuous Pain Onset Ongoing Patient's Pain Goal No pain Pain Interventions Repositioned;Elevated;Rest Cognition Overall Cognitive Status WFL Arousal/Alertness Appropriate responses to stimuli Orientation Level Oriented X4 Following Commands Follows multistep commands without difficulty Activity Tolerance Endurance Tolerates 10 - 20 min exercise with multiple rests Static Sitting Balance Static Sitting-Level of Assistance Moderate assistance Dynamic Sitting Balance Dynamic Sitting-Level of Assistance Maximum assistance Bed Mobility Rolling Right Assistance Moderate assistance Rolling Left Assistance Moderate assistance Sitting to Lying Assistance Maximum assistance;Assist x2 Lying to Sitting Assistance Maximum assistance;Assist x2 Bed Mobility Comments hob elev, bed rail use. dependent clean up and linen change in bed with rolling Balance/Neuromuscular Re-Education Neuromuscular Re-Education Time Entry 30 Therapeutic Activity Therapeutic Activity Time Entry 15 Therapeutic Exercise Therapeutic Exercise Activity 1 supine active assisted LLE x 5 reps knee flex/ext. x 5 reps 3 sec hold b/l GS and QS. passive RLE knee flex/ext x 10reps Other Activity Other Activity 1 sitting static and dynamic balance activities eob with assist of 2, b/l knee blocks and trunk stability, almost 15 min total Other Activity 2 static sitting with BUE support on bed working on stationing at midline Other Activity 3 dynamic sitting with unilateral arm support and raising contralateral arm x 5 repseach side. anterior trunk lean with forehead taps to hand x 5 reps with working on slowed controlled return to midline and upright sitting PT Assessment PT Assessment Results Decreased strength;Decreased endurance;Impaired balance;Impaired gait;Decreased mobility;Decreased coordination Prognosis Fair Plan Treatment/Interventions ADL retraining;Functional transfer training;UE strengthening/ROM;LE strengthening/ROM;Endurance training;Patient/family training;Equipment eval/education;Bed mobility;Compensatory technique education;Continued evaluation;Balance training;Gait training PT Plan Skilled PT PT Frequency 4 days per week Education Call don't fall and PT role/POC reviewed with pt with understanding. Chart reviewed, spoke with RN ok to treat, pt agrees to therapy. Pt left supine with call [place] and phone in reach, bed alarm on and activated and in NAD. RN notified of session, fxnl mob. 06/19/2024 Cathi Brown, PT * Balbina Hill RN - 06/19/2024 12:59 PM EST 06/19/24 1259 Safe Environment Arm Bands On ID The Patient's Environment is Safe Yes Side Rails/Bed Safety 07/24 vRN Rounding: Patient awake, alert, in NAD. Pt eating lunch. Reviewed plan of care and safety checkperformed. Call light within reach and pt educated on use of call light to ring for staff/vRN assistance. Virtual rounding ongoing. * Shari Ye RN - 06/19/2024 12:57 PM EST Case Management Discharge Planning Current Discharge Plan: [facility] Barriers: Today's Updates Introduced self as RNCM. D/c recommendations discussed including acute rehab. Pt is not opposed to [facility]. Initially requesting to return to [facility] in [place]. Referral submitted to [facility] and other [facility] in [place] and [place]. Bed offers are pending Current Unplanned Readmission Risk Level: Patient Preference for Discharge: History of this admission Pt is 68 y.o. and is admitted for Thoracic spinal stenosis [M48.04]. Previous Daily Updates: Home Environment & Baseline Functional Status Type of residence: [facility] Baseline level of independence with ADL's: assist At baseline, is assistance required for reading or filling out forms: assist Friends/family who are able to provide support in the home: yes Current home care/community resources: n/a Transportation: DME: DME Company: Outpatient Providers PCP: F/u appt preference if applicable: Specialists: Financial info Primary insurance: Monthly income source (if info needed for placement): Medicaid screening needed?: Is pt a ?: Pharmacy Home Pharmacy: Meds to go preferred?: Medical Durable Power of [employer]/Guardianship Does pt have an activated DPOA or guardian: DPOA/Guardian info: Has pt ever completed adv directives?: * THEODORA Pettit - 06/19/2024 12:20 PM EST Admit Date: 06/10/2024 LOS: 9 days [facility] Consult Service Progress Note SUBJECTIVE: Patient is a 68 y.o. female seen in follow-up for assistance with management of hypertension. On evaluation patient resting comfortably in bed. She reports that she is feeling much much better today. She finally was able to sleep last night after her medications were adjusted. She reports that prior to that she had not really slept in 3 days and so she attributes most of her anxiety to poor sleep. She reports that today she is able to cope normally. She does remain understandably stressed about her weakness but overall mood is bright. She complains of diarrhea following aggressivebowel regimen. She had concerns about becoming dependent on urinary catheter, advised her that for now it seems that she does need to continue with the catheter due to issues with urinary retention. She is worried about her blood pressure being elevated as she reports a family history of stroke andshe does not want to have stroke herself. She complains of very mild headache which she feels is due to straining her eyes and asked for Tylenol. She confirmed hydralazine was home medication. Remainder of a 14 point review of systems was negative. BP 140s-160s/90s, HR 50s-60s, afebrile, SpO2 high 90s room air Vitals: Intake / Output: Vitals: 06/19/24 1105 BP: (!) 160/78 Pulse: 60 Resp: Temp: 36.7 ??C (98.1 ??F) SpO2: 98% Weight: 82 kg (180 lb 12.4 oz) Last 24 hours: Intake/Output Summary (Last 24 hours) at 06/19/2024 1220 Last data filed at 06/19/2024 0304 Gross per 24 hour Intake -- Output 3875 ml Net -3875 ml Current Medications: cevimeline, 30 mg, oral, TID dexAMETHasone, 4 mg, intravenous, q6h EDEN docusate sodium, 100 mg, oral, BID doxepin, 100 mg, oral, Nightly DULoxetine, 60 mg, oral, Daily famotidine, 20 mg, oral, Daily gabapentin, 500 mg, oral, q8h heparin (porcine), 5,000 Units, subcutaneous, q8h EDEN hydrALAZINE, 75 mg, oral, BID insulin lispro, 1-6 Units, subcutaneous, TID AC nitrofurantoin (macrocrystal-monohydrate), 100 mg, oral, q24h polyetheylene glycol, 17 g, oral, Daily senna, 2 tablet, oral, BID sodium chloride, 10 mL, intravenous, BID tiZANidine, 2 mg, oral, Daily traZODone, 100 mg, oral, Nightly triamterene-hydroCHLOROthiazide, 1 capsule, oral, Daily valsartan, 320 mg, oral, Daily PRN medications: acetaminophen, bisacodyL, dextrose 50%, dextrose 50%, dextrose, dextrose, glucagoninjection, hydrALAZINE, LORazepam, oxyCODONE, oxyCODONE, Insert peripheral IV AND Maintain IV access AND Saline lock IV AND sodium chloride AND sodium chloride Physical Exam: Physical Exam Vitals and nursing note reviewed. Constitutional: General: She is not in acute distress. Comments: Sitting up in bed in no acute distress, very pleasant and answering questions appropriately. BMI 33.06 HENT: Head: Normocephalic. Nose: Nose normal. Mouth/Throat: Mouth: Mucous membranes are moist. Pharynx: Oropharynx is clear. Eyes: Extraocular Movements: Extraocular movements intact. Conjunctiva/sclera: Conjunctivae normal. Pupils: Pupils are equal, round, and reactive to light. Cardiovascular: Rate and Rhythm: Normal rate and regular rhythm. Pulses: Normal pulses. Heart sounds: No murmur heard. Pulmonary: Effort: Pulmonary effort is normal. No respiratory distress. Breath sounds: Normal breath sounds. No wheezing, rhonchi or rales. Abdominal: General: Bowel sounds are normal. There is no distension. Palpations: Abdomen is soft. Tenderness: There is no abdominal tenderness. Genitourinary: Comments: Varma catheter in place draining clear yellow urine Musculoskeletal: Cervical back: No rigidity. Right lower leg: No edema. Left lower leg: No edema. Skin: General: Skin is warm and dry. Neurological: General: No focal deficit present. Mental Status: She is alert and oriented to person, place, and time. Cranial Nerves: No cranial nerve deficit or dysarthria. Motor: Weakness present. Comments: Decreased but present strength distal left leg, strength 0/5 the left leg proximally, 0/5right leg. Decree sensation throughout the right lower extremity. Psychiatric: Mood and Affect: Mood normal. Labs: Recent Results (from the past 24 hour(s)) POCT Glucose, blood Collection Time: 06/18/24 5:18 PM Result Value Ref Range Glucose POCT 122 70 - 199 mg/dL POCT Glucose, blood Collection Time: 06/18/24 9:50 PM Result Value Ref Range Glucose POCT 134 70 - 199 mg/dL POCT Glucose, blood Collection Time: 06/19/24 7:59 AM Result Value Ref Range Glucose POCT 110 70 - 199 mg/dL POCT Glucose, blood Collection Time: 06/19/24 11:58 AM Result Value Ref Range Glucose POCT 119 70 - 199 mg/dL Imaging: CT Thoracic Spine wo Contrast Result Date: 06/14/2024 Narrative: PROCEDURE: CT THORACIC SPINE WO CONTRAST [...] No obvious hardware complications. No fluid collection is seen, drain is present terminating along the posterior thecal sac at T5-T6.Posterior skin ronald are noted. Osteophyte at T6-T7 causes moderate spinal canal stenosis. Severe degenerative change lower cervical spine.Multilevel spondylolisthesis in the cervical spine. Left thyroid [...] on 06/14/2024 6:04 PM. Workstation Name - [id number] -------- FINAL REPORT -------- Dictated By: Chetan Barclay Dictated Date: 06/14/2024 17:59 ET Assigned Physician: Chetan Barclay Reviewed and Electronically Signed By: Chetan Barclay Signed Date: 06/14/2024 18:04 ET Workstation ID: [id number] Transcribed By: Self Edit Transcribed Date: 06/14/2024 17:59 ET XR Abdomen 1 View Result Date: 06/08/2024 Narrative: HISTORY: The patient is a 68-year-old female with abdominal distention. FINDINGS: Supineradiographs of the abdomen, without previous for comparison, demonstrate that the patient has undergone previous posterior spinal fusion at L4-S1. The patient is seen to have undergone previous totalleft hip replacement surgery. A catheter is noted [...] No mass or radiopaque calculus is seen. Impression: Nonspecific nonobstructive bowel gas pattern. There are gas-filled nondilated loops of small bowel as well as moderate gaseous distention of the stomach. Code 32260 -------- FINAL REPORT -------- Dictated By: Ryan Schroeder Dictated Date: 06/08/2024 07:51 ET Assigned Physician: Ryan Schroeder Reviewed and Electronically Signed By: Ryan Schroeder Signed Date: 06/08/2024 07:53 ET Workstation ID: [id number] Transcribed By: Self Edit Transcribed Date: 06/08/2024 07:51 ET XR Spine 1 View Result Date: 06/01/2024 Narrative: Fluoroscopic spot radiographs obtained during thoracic spine surgery are submitted. No radiologist consultation was requested or provided during this procedure and there is no radiologist professional charge. This report is generated for documentation purposes only. The dose-area productfor this procedure was 0.72026 mGy*m2. PQRI CPT II G9500 -------- FINAL REPORT -------- Dictated By: Ryan Schroeder Dictated Date: 06/01/2024 10:11 ET Assigned Physician: Ryan Schroeder Reviewed and Electronically Signed By: Ryan Schroeder Signed Date: 06/01/2024 10:12 ET Workstation ID: [id number] By: Self Edit Transcribed Date: 06/01/2024 10:11 ET MR Thoracic Spine wo and w Contrast Result Date: 05/31/2024 Narrative: Exam: MRI of the thoracic spine with [...] with AP dimension of 3 mm seen onseries 10, image 10. Spinal cord immediately distal [...] through T10-11. No acute thoracic spine fractures. Impression: Impression: 1. Extra-axial lesion seen in the [...] or developing syrinx. No enhancement of the spinalcord. No intrinsic cord lesions. 2. Status post recent T6 and T7 laminectomies. Dorsal fluid collection within the laminectomy defect abuts the thecal sac ventrally and extends dorsally into the paraspinous soft tissues measuring 2.5 x 1.8 x 4.3 cm and may represent postoperative seroma, hematoma, abscess or pseudomeningocele. Additional fluid collection in the subcutaneous fat of the back in themidline measuring 1.3 x 2.4 x 6.9 cm may represent postoperative soft tissue seroma, hematoma or abscess. 3. 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 This document has been electronically signed by: Mishel Boo MD on 05/31/2024 19:27:41 XR Spine 1 View Result Date: 05/26/2024 Narrative: Findings: Digital spot images of the thoracic spine are submitted from the OR, used intraoperatively by Dr. Markham during a spine procedure. No radiologist was in attendance. Fluoroscopy was provided in the OR by a engineering technologist. Cumulative Air Kerma: 44.67 mGy Impression: Impression: 1. Intraoperative images of the thoracic spine. 2. Fluoroscopy provided in the OR. NC -------- FINAL REPORT -------- Dictated By: Michelle Thompson Dictated Date: 05/26/2024 10:34 ET Assigned Physician: Michelle Thompson Reviewed and Electronically Signed By: Michelle Thompson Signed Date: 05/26/2024 10:35 ET Workstation ID: [id number] Transcribed By: Self Edit TranscribedDate: 05/26/2024 10:[address] Thoracic Spine wo Contrast Result Date: 05/24/2024 Narrative: CT thoracic spine without contrast Comparison: None Findings: Recent postsurgical changes. Surgical drain with the tip at the level of T6 posteriorly. Right laminectomy at T6 and T7. Partially ossified density in the spinal canal of the level of T6 measuring 1.4 x 1.2 x 1.4 cm. Scatteredair throughout paraspinal soft tissues. Vertebral alignment is within normal limits. No listhesis. Multilevel degenerative disc disease. Bilateral lower lobe opacities favoring atelectasis. Left upper pole cysts. Adrenal adenomas. Impression: Postsurgical changes of right laminectomies at T6 and T7 with surgical drain tip at thelevel of T6 posteriorly. Scattered air throughout the paraspinal soft tissues. Partially ossified density in the spinal canal of the level of T6 measuring 1.4 x 1.2 x 1.4 cm. This document has been electronically signed by: Amilcar Daugherty MD on 05/24/2024 21:00:40 Other Studies: No results found for this or any previous visit (from the past 168 hour(s)). ASSESSMENT/PLAN: 78-year-old female with history of essential hypertension, paroxysmal atrial flutter and thoracic spinal stenosis status post T5-T8 fusion, underwent T6-7 decompression for partial excision of presumed calcified meningioma on 05/24 with worsening myelopathy postoperatively, s/p reexploration with T6/7 decompression 06/01, [place] [facility] [place] s/p T5-7 decompression thoracic/T6-7 facetectomy surgery on 06/11/2024 by neurosurgery here. Her postop course wascomplicated with hypotension requiring pressors and ICU admission. She has been since weaned off pressors and transferred out of the ICU. Her blood pressures have been trending up for which medicine service have been consulted. Assessment: Essential hypertension, uncontrolled History of paroxysmal atrial flutter with secondary hypercoagulable state. Not on anticoagulation. No issues here. Has been in sinus rhythm to sinus bradycardia since her initial surgery requiring home metoprolol to be discontinued. Thoracic spinal stenosis status post T5-T8 fusion, T5-7 decompression thoracic/T6-7 facetectomy surgery on 06/11/2024 by neurosurgery Neurogenic bladder due to the above Anxiety/insomnia - improved as of 06/19 Recommendations: Appreciate psychiatry input. Medications were adjusted on 06/18 and patient reports dramatic improvement. Secondary causes of BP elevation being addressed, anxiety as above improved but BP still elevated 160s, Varma in place for urinary retention, initially had constipation now having diarrhea after aggressive bowel regimen, pain is well-controlled Continue valsartan 320 mg daily, continue triamterene-hydrochlorothiazide Continue home medication hydralazine twice a day, will increase dose from 50 mg to 75 mg. Holding parameters added for BP less than 110. If patient is requiring additional medication despite increasing hydralazine would consider adding amlodipine. Code Status:No CPR/Do Not Intubate Discharge: Discussed with Dr. Wilde. Felisa Castro PA-C [facility] Consult Service Available 7a-3p 12:20 PM EST 06/19/2024 Associated attestation - Brooke Wilde MD - 06/19/2024 1:23 PM EST I was physically present for the Evaluation and Management service provided. I agree with the Nurse practitioner's/Physician accounting assistant's note and plan by THEODORA Pettit dated 06/19/24 which I have reviewed and edited where appropriate. I have confirmed the physical exam findings and made appropriate changes. I was physically present for the ulloa portions of the history, physical and service provided. The patient is feeling much better today. Her mood is better . She was able to get a good night sleep yesterday after adjusting her chronic medication dose. Lab, vitals, imagine was reviewed by me. Noted her Bp is still on the higher side. LE weakness is unchanged. A/P: Uncontrolled essential hypertension: Elevated blood pressure can be contributed by anxiety and agitation however BP still on the higher side, continue valsartan 320 mg daily, continue triamterene andhydrochlorothiazide. Will increase hydralazine from 50 to 75 mg twice daily. Appreciate psych input. Medication was adjusted on 06/18, patient had good response. Continue with same. - Further assessment of thoracic spine decompression surgery is as per primary team. Brooke Wilde MD [facility] Consult , 7am-3pm Nursery txt Call cross cover pager after 3pm * Lulu Herron, RD - 06/19/2024 12:06 PM EST Initial Nutrition Assessment and Recommendations (length of stay) Patient: Yuly Montoya Sex: female : 1955 68 year old female with history of T6-7 stenosis, cord compression and extra- axial mass initially presents to [facility] and underwent T6/T7 decompression on 05/24/24. Ultimately discharged to [facility] on 05/30, however, was brought back to OR on 06/01 for reexploration and thoracic decompression given progressively worsening leg weakness. Transferred back to rehab post-op. Ongoing lower extremity weakness with decision made to transfer to [facility] on 06/10 for further neurosurgical intervention with Dr. Hall. Brought to OR on 06/11, status post T5-8 fusion and decompression. Currently ordered for a regular diet. Fair/good appetite, consuming 75-100% of most meals. ASSESSMENT: Past Medical History: Diagnosis Date Adverse effect [...] [place]rough February 2012, subsequent L4-S1 fusion in [place] with Dr. Cagle. CARPAL TUNNEL RELEASE Right TONSILLECTOMY ADENOIDECTOMY, BILATERAL MYRINGOTOMY AND TUBES TOTAL HIP ARTHROPLASTY Left 2022 TOTAL KNEE ARTHROPLASTY Bilateral Labs: Lab Results Component Value Date BUN 16 06/15/2024 CREATININE 0.60 06/15/2024 NA 134 (L) 06/15/2024 K 4.2 06/15/2024 CL 99 06/15/2024 CO2 30 06/15/2024 CALCIUM 8.3 (L) 06/15/2024 ALKPHOS 82 06/08/2024 PHOS 2.7 06/15/2024 MG 1.7 06/15/2024 EGFR 99 06/15/2024 Lab Results Component Value Date AST 10 06/08/2024 ALT 20 06/08/2024 No results found for: AMYLASE , LIPASE No results found for: CHOL , HDL , LDLCALC , VLDL , TRIG No results found for: HGBA1C Medications: cevimeline, 30 mg, oral, TID dexAMETHasone, 4 mg, intravenous, q6h EDEN docusate sodium, 100 mg, oral, BID doxepin, 100 mg, oral, Nightly DULoxetine, 60 mg, oral, Daily famotidine, 20 mg, oral, Daily gabapentin, 500 mg, oral, q8h heparin (porcine), 5,000 Units, subcutaneous, q8h EDEN hydrALAZINE, 50 mg, oral, BID insulin lispro, 1-6 Units, subcutaneous, TID AC nitrofurantoin (macrocrystal-monohydrate), 100 mg, oral, q24h polyetheylene glycol, 17 g, oral, Daily senna, 2 tablet, oral, BID sodium chloride, 10 mL, intravenous, BID tiZANidine, 2 mg, oral, Daily traZODone, 100 mg, oral, Nightly triamterene-hydroCHLOROthiazide, 1 capsule, oral, Daily valsartan, 320 mg, oral, Daily Anthropometrics: Height: 1.575 m (62 ) Admit Weight: 81.6 kg (180 lb) Most Recent Weight:82 kg (180 lb 12.4 oz) Current Calculated Body mass index is 33.06 kg/m??. Weight History: Wt Readings from Last 10 Encounters: 06/12/24 82 kg (180 lb 12.4 oz) 06/09/24 81.8 kg (180 lb 6.4 oz) 06/01/24 82.6 kg (182 lb) 05/26/24 82.6 kg (182 lb 1.6 oz) 05/21/24 90.3 kg (199 lb) - ? Accuracy, unlikely to have lost 17 lb x 5 days Current Diet Order: Dietary Orders (From admission, onward) Start Ordered 06/12/24 09 Adult diet [facility]; General; Regular Diet effective now Question Answer Comment Location [facility] Diet Type (req) General General Diet Regular 06/12/24 09 Allergies: Patient has no known allergies. Nutrition Focused Physical Exam: Appearance: unable to assess (remote) Edema: +1 generalized, non-pitting bilateral lower extremities Skin: incision to upper medial back GI: last BM 06/18 (loose); soft abdomen - current bowel regimen: colace, miralax, senna; dulcolax suppository PRN DIAGNOSIS: No nutrition-related diagnosis at this time. Nutrition Goal: PO intake > 75% of meals Goal Status: Initial assessment - unable to assess INTERVENTION/RECOMMENDATIONS: Continue Regular diet as ordered. Hold/discontinue bowel regimen if loose stool ongoing. MONITORING/EVALUATION: Monitor intake, Monitor appetite, Monitor pertinent lab values, and Monitor stool output Lulu Herron RD, CD-N * Ramirez Hall MD - 06/19/2024 8:24 AM EST Ortho Thoracic/Lumbar Spine PA-C Note Subjective: Reports her anxiety is much better controlled today. She was able to get good rest overnight and feels much better today. Pain controlled with Tolerating diet. No CP/SOB/difficulty swallowing/MELGAR/Ab pain/vomiting. She is anticipating discharge to rehab pending placement Objective: Vitals: 12/31/24 0548 BP: (!) 160/98 Pulse: 56 Resp: Temp: 36.5 ??C (97.7 ??F) SpO2: 99% BACK: Dressing clean, dry and intact LOWER EXTREMITY: L2: Psoas L3: Quadriceps L4: Tibialis Anterior L5: Extensor Hallucis Longus S1: Gastrocnemius, Soleus RIGHT 0/5 0/5 0/5 0/5 0/5 LEFT 0/5 0/5 4/5 4/5 4/5 *Exam consistent with previously documented. No acute changes. LLE: Deep peroneal, Superficial peroneal, and Tibial nerves intact RLE: Diffusely diminished sensation throughout the right lower extremity. I/O last 3 completed shifts: In: 800 (9.8 mL/kg) [P.O.:800] Out: 6825 (83.2 mL/kg) [Urine:6825 (2.3 mL/kg/hr)] Weight: 82 kg Assessment: POD #8 s/p T5-[address] Ramirez Hall MD Plan: Activity: Out of bed as tolerated DVT prophylaxis: HSQ Physical therapy to mobilize Pain control Diet: Regular diet as tolerated Consults: [facility] and Psych-appreciate recommendations Awaiting rehab placement. Chris Chowdhury PA-C [facility] : [facility] patients : Gen Ortho patients : Ortho Spine patients Attending note: Pt was seen and examined today, I agree with the above assessment and plan outlined by the midlevelprovider Minimal flicker distally in RLE LLE strength seems better distally compared to preop Needs d/c to rehab or SNF Ramirez Hall MD, PhD Neurosurgery [facility] [phone] (W) [phone] (F) * Sobeida Carver RN - 06/19/2024 5:47 AM EST 06/19/24 0546 Safe Environment Arm Bands On ID The Patient's Environment is Safe Yes Side Rails/Bed Safety 09/21 Telemetry Details Conditioning Coach On No Fall Risk Interventions Hourly Visual Checks Awake;In bed Sobeida Carver RN Virtual RN Virtual Monitoring Unit * Sobeida Carver RN - 06/19/2024 12:31 AM EST Pt is awake sitting in bed with out any observable S/S of distress or discomfort. Respiration are even and unlabored. Pt is agreeable to have virtual rounds continue over night for routine safety checks. Pt is aware that VRN will not announce presence during rounds if they are sleeping to ensure minimal disruption to Patients rest. Call [place] is within reach, bedside table is within reach. VRN rounds will continue over night. 06/19/24 0023 Safe Environment Arm Bands On ID The Patient's Environment is Safe Yes Side Rails/Bed Safety 09/21 Telemetry Details Conditioning Coach On No Fall Risk Interventions Hourly Visual Checks Awake;In bed Sobeida Carver RN Virtual RN Virtual Monitoring Unit * Sobeida Carver RN - 06/18/2024 10:18 PM EST Patient appears to be sleeping in bed without any observable signs of discomfort or distress. Respirations even and unlabored. Will continue virtual rounds overnight for routine safety checks. Will not announce nurse presence during rounds to ensure minimal disruption to patient's rest. Call [place] is within reach, bedside table is within reach. VRN rounds will continue over night. 06/18/24 2216 Safe Environment Arm Bands On ID The Patient's Environment is Safe Yes Side Rails/Bed Safety 08/21 Telemetry Details Conditioning Coach On No Fall Risk Interventions Hourly Visual Checks Sleeping;Eyes closed;In bed Sobeida Carver RN Virtual RN Virtual Monitoring Unit * Aliza Enamorado RN - 06/18/2024 5:17 PM EST Patient is alert and oriented times 4. B/P elevated today. Dr. Pauig aware addressing B/P meds. Patient appears to be resting comfortably in bed. Patient would like to speak to Md's tomorrow about why she is still in the hospital and what her barriers to discharge are. WCPC. * Radha Alamo MD - 06/18/2024 5:13 PM EST Admit Date: 06/10/2024 LOS: 8 days [facility] Progress Note SUBJECTIVE: Patient seen and examined at bedside. She is very anxious. She was complaining of diarrhea that started yesterday. Otherwise she denied any complaints. Vitals: Intake / Output: Visit Vitals BP (!) 151/93 (BP Location: Left arm, Patient Position: Sitting) Pulse 59 Temp 36.6 ??C (97.9 ??F) (Oral) Resp 18 Ht 1.575 m (62 ) Wt 82 kg (180 lb 12.4 oz) SpO2 96% BMI 33.06 kg/m?? OB Status Postmenopausal Smoking Status Every Day BSA 1.83 m?? Last 24 hours: Intake/Output Summary (Last 24 hours) at 06/18/2024 1713 Last data filed at 06/18/2024 0500 Gross per 24 hour Intake 1040 ml Output 2100 ml Net -1060 ml Physical Exam: General: awake, alert, oriented x3, not in distress HEENT: [place] conjuctivae, anicteric sclerae, moist mucus membranes Lungs: Clear lungs bilaterally, no wheezes, no crackles CV: S1, S2 normal, RRR Abd: Soft, non-tender, non-distended, bowel sounds heard Pulses: 2 + pulses Ext: warm ext, no edema Neuro: no gross focal deficits Skin: normal examination findings Behavioral / Psychiatric: No evidence of mood disorder, anxiety, or psychosis. Labs: WBC Date Value Ref Range Status 06/18/2024 12.5 (H) 4.0 - 10.5 K/mcL Final Hemoglobin Date Value Ref Range Status 06/18/2024 12.1 (L) 12.5 - 16.0 g/dL Final Hematocrit Date Value Ref Range Status 06/18/2024 35.5 (L) 37.0 - 47.0 % Final Platelets Date Value Ref Range Status 06/18/2024 341 150 - 450 K/mcL Final ALT (SGPT) Date Value Ref Range Status 06/08/2024 20 10 - 60 unit/L Final AST (SGOT) Date Value Ref Range Status 06/08/2024 10 10 - 42 unit/L Final Sodium Date Value Ref Range Status 06/15/2024 134 (L) 135 - 145 mmol/L Final Potassium Date Value Ref Range Status 06/15/2024 4.2 3.5 - 5.1 mmol/L Final Chloride Date Value Ref Range Status 06/15/2024 99 98 - 107 mmol/L Final Creatinine Date Value Ref Range Status 06/15/2024 0.60 0.50 - 1.00 mg/dL Final BUN Date Value Ref Range Status 06/15/2024 16 7 - 17 mg/dL Final CO2 Date Value Ref Range Status 06/15/2024 30 24 - 32 mmol/L Final Lab data personally reviewed by me. Imaging: Imaging personally reviewed by me. Other Studies: ASSESSMENT/PLAN: 78-year-old female with history of essential hypertension, atrial flutter and thoracic spinal stenosis status post T5-T8 fusion, T5-7 decompression thoracic/T6-7 facetectomy surgery on 06/11/2024 by neurosurgery . Her postop course was complicated with hypotension requiring pressors and ICU admission. She has been since weaned off pressors and transferred out of the ICU. Her blood pressures have been trending up for which medicine service have been consulted. Essential hypertension, uncontrolled History of atrial flutter with secondary hypercoagulable state. Not on anticoagulation Thoracic spinal stenosis status post T5-T8 fusion, T5-7 decompression thoracic/T6-7 facetectomy surgery on 06/11/2024 by neurosurgery Anxiety Continue current dose of valsartan 320 mg daily. This is an increase from her home dose of 160 mg Continue home dose of triamterene-hydrochlorothiazide Resume hydralazine 50 mg twice daily Metoprolol on hold due to bradycardia Psych on board for her anxiety Code Status:No CPR/Do Not Intubate Radha Alamo MD 06/18/2024 [facility] Hospitalist, 7am-7pm Available thru Secure Chat After 7pm, please text [facility] cross coverage on Secure Chat * Sukh Barba - 06/18/2024 3:54 PM EST SPIRITUAL CARE Date/Time:06/18/24 at 3:54 PM EST Type of Visit:Follow-up Reason for Visit: Spiritual/Emotional Support Time Spent: (P) 10 Minutes Location: [address] [place] [address] Sacramental Encounters: Sacrament of Sick-Anointing: Patient requested anointing Spiritual Distress Assessment: Spiritual Distress Assessment at beginning of visit Meaning - Overall Life Balance: (P) Some evidence of unmet spiritual need Transcendence: (P) Substantial evidence of unmet spiritual need Values - Acknowledgement: (P) Some evidence of unmet spiritual need Values - Control: (P) Substantial evidence of unmet spiritual need Psycho-Social Identity: (P) Some evidence of unmet spiritual need SDAT Beginning of Visit Average Score: (P) 1.4 Spiritual Distress Assessment at end of visit Meaning - Overall Life Balance: (P) Some evidence of unmet spiritual need Transcendence: (P) Some evidence of unmet spiritual need Values - Acknowledgement: (P) Some evidence of unmet spiritual need Values - Control: (P) Substantial evidence of unmet spiritual need Psycho-Social Identity: (P) Some evidence of unmet spiritual need SDAT End of Visit Average Score: (P) 1.2 Spiritual Assessment/Distress Spiritual Care Assessment: Assessment: Rouge Mixer follow-up with patient who was experiencing high anxiety and spiritual distress during this morning's Spiritual Consult. Patient was much less anxious when visited this afternoon. She was coping much more effectively. Patient did share the news that she learned today that a friend's son had unexpectedly while hiking. Patient asked supervisor riveting to offer prayers. Intervention: Compassionate care, prayer for departed and surviving family. Outcomes: Patient expressing hope for healing. Plan of Care: No Follow up required. Please re-consult if new need comes up. *Reference: Spiritual Distress Assessment Tool: The SDAT is a clinical tool used by chaplains to identify unmet spiritual and emotional needs that can impact Goals of Care in the following categories: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 Pt will perform bed mobility with mod assist x 2. 06/17/2024 Saadia Menendez PT 2. Pt will perform sit <> stand and bed <> chair transfers with mod assist x 2 with LRAD. 06/17/2024 Saadia Menendez PT 3. Pt will be able to perform dynamic sitting tasks EOB with supervision. Saadia Menendez PT 06/17/2024 4. Pt will be able to perform dynamic standing tasks with mod A. Saadia Menendez PT 06/17/2024 Saadia Menendez PT * THEODORA Fung - 06/17/2024 10:22 AM EST Drain Removal Note I was instructed to remove this patients drain by Dr. Hall after output had slowed to 25 cc yesterday over the entire day. Drain dressing and drain suture was removed. Suction was released and the drain was removed in its entirety using gentle inline traction. No resistance was felt and the tip was intact. Gentle compression was applied. No excess bleeding was noted from drain site. A clean sterile dressing was reapplied. Please call for continued drainage or saturation of dressing. Morro Spear PA-C Department of Orthopedics [phone] [facility] [phone] General Pager * THEODORA Fung - 06/17/2024 8:40 AM EST Ortho Spine PA Note Subjective: This morning, patient is rather tearful and feeling overwhelmed by her current medical/surgical situation. She feels that things are hitting her all at once. She states that the dose of Ativan thatshe had yesterday evening helped her dramatically and calming down. She denies any return of function to her right lower extremity. She denies any chest pain, shortness of breath, nausea, vomiting, fevers, chills. She denies any headaches at this time. Objective: Vitals: 06/17/24 0821 BP: 134/82 Pulse: 62 Resp: 18 Temp: 36.7 ??C (98.1 ??F) SpO2: Back: dressing clean, dry and intact. Hemovac drain in place. Despite our directions to leave the drain to gravity, again, the drain was placed to suction overnight after previous emptying at 2100. At that time the drain output was 25 cc over the entire day on 06/16/2024. LOWER EXTREMITY: L2: Psoas L3: Quadriceps L4: Tibialis Anterior L5: Extensor Hallucis Longus S1: Gastrocnemius, Soleus RIGHT 0 0 0 0 0 LEFT 1/5 1/5 4/5 4/5 4/5 Deep peroneal, Superficial peroneal, and Tibial nerves intact to her left lower extremity. She has no sensation to the right lower extremity. I/O last 3 completed shifts: In: 960 (11.7 mL/kg) [P.O.:960] Out: 5095 (62.1 mL/kg) [Urine:4950 (1.7 mL/kg/hr); Drains:145] Weight: 82 kg Assessment: POD #6 s/p T5-[address] Ramirez Hall MD Plan: Activity: WBAT Physical therapy to mobilize Pain control HV Drain in place. Do not place drain to suction. Will discuss with Dr. Hall in regards to drain removal today. Elevate HOB Diet: Regular diet as tolerated Consults: I have reconsulted medical service at this time in order to help in managing this patient's hypertension. DVT prophylaxis: Patient with compression past teds stockings at this time. Will discuss with Dr. Hall in regards to chemical anticoagulation. Morro Spear PA-C Department of Orthopedics [phone] [facility] [phone] General Pager * Jaqui Vazquez RN - 06/17/2024 6:30 AM EST Pt. [place] a bit overwhelmed during early part of shift. Pt. Was medicated with PRN pain med as requested with good results noted. Pt. Expressed feeling frustrated, team updated and ordered one time dose os Ativan which was effective. Proper safety measures maintained. Will continue to monitor. * Sobeida Carver RN - 06/17/2024 2:25 AM EST 06/17/24 0225 Safe Environment Arm Bands On ID The Patient's Environment is Safe Yes Side Rails/Bed Safety 09/21 Telemetry Details Conditioning Coach On No Fall Risk Interventions Hourly Visual Checks Sleeping;Eyes closed;In bed Sobeida Carver RN Virtual RN Virtual Monitoring Unit * Sobeida Carver RN - 06/16/2024 11:28 PM EST Pt is awake laying in bed with out any observable S/S of distress or discomfort. Respiration are even and unlabored. Pt is agreeable to have virtual rounds continue over night for routine safety checks. Pt is aware that VRN will not announce presence during rounds if they are sleeping to ensure minimal disruption to Patients rest. Call [place] is within reach, bedside table is within reach. VRN rounds will continue over night. Pt very teary eyed, anxious and stressed out this VRN reached out to her MD for assistance. THEODORA Chowdhury paged and spoke with this VRN he will order a one time dose of Ativan for tonight and the primary nurse can follow up with the next shift to see if something can be ordered PRN. 06/16/24 8757 Safe Environment Arm Bands On ID The Patient's Environment is Safe Yes Side Rails/Bed Safety 09/21 Telemetry Details Conditioning Coach On No Fall Risk Interventions Hourly Visual Checks Awake;In bed Sobeida Carver RN Virtual RN Virtual Monitoring Unit * Mari Murcia LPN - 06/16/2024 6:33 PM EST Patient remain safe in bed, incision dressing site intact, with Hemovac drain in place to gravity, small serosanguinous output noted, varma catheter in place and draining clear yellow urine. Patient tolerating all PO intake with no complaint of nausea. Patient given PRN oxycodone 10mg per request and scheduled pain medications for pain control is resting comfortable, all precaution in place and maintained, call [place] within reach for needs. * THEODORA Boo - 06/16/2024 12:25 PM EST Ortho Thoracic/Lumbar Spine PAOphelia Note Subjective: Patient doing okay his morning. She is bit tearful and states that she feels emotional. No issues overnight Denies any significant improvement in her lower extremities Pain controlled Tolerating diet. No CP/SOB/difficulty swallowing/MELGAR/Ab pain/vomiting. Objective: Vitals: 06/16/24 0822 BP: (!) 190/93 Pulse: 54 Resp: 20 Temp: 36.9 ??C (98.4 ??F) SpO2: 100% BACK: Dressing clean, dry and intact Drain output : 120 cc overnight LOWER EXTREMITY: L2: Psoas L3: Quadriceps L4: Tibialis Anterior L5: Extensor Hallucis Longus S1: Gastrocnemius, Soleus RIGHT 0/5 0/5 0/5 0/5 0/5 LEFT 1/5 0/5 4/5 4/5 4/5 *Exam consistent with previous. Slight improvement in left foot strength. LLE : Deep peroneal, Superficial peroneal, and Tibial nerves intact RLE: No sensation right lower extremity + Dorsalis Pedis pulse I/O last 3 completed shifts: In: 1090 (13.3 mL/kg) [P.O.:1080; I.V.:10 (0.1 mL/kg)] Out: 5086 (62 mL/kg) [Urine:4775 (1.6 mL/kg/hr); Drains:310; Stool:1] Weight: 82 kg Assessment: POD #5 s/p T5-[address] Ramirez Hall MD Plan: Activity: Out of bed as tolerated DVT prophylaxis: Mechanical (PAS/OOB)- no chemical anticoagulation due to risk of post op bleeding Physical therapy to mobilize Pain control Drain - Continue to monitor output . Leave hemovac to gravity. Diet: Regular diet as tolerated Consults: ARCADIO Chowdhury PA-C [facility] : [facility] patients : Gen Ortho patients : Ortho Spine patients * Aliza Enamorado RN - 06/15/2024 5:40 PM EST Patient refused N visit @ this time. She is open to visit from N later this evening. [facility]PC. * THEODORA Fung - 06/15/2024 9:18 AM EST I reevaluated this patient's drain. I took the drain off of suction and left the drain in place to gravity. As stated in my previous progress note, please allow the drain to be left to gravity without suction. If the drain needs to be emptied please empty and then reattach the drain but do not apply suction to the drain. We will monitor the patient's drain output by gravity from this point forward as directed by Dr. Hall. Morro Spear PA-C Department of Orthopedics [phone] [facility] [phone] General Pager * THEODORA Fung - 06/15/2024 8:39 AM EST Ortho Thoracic/Lumbar Spine CALVIN Note Subjective: Pt doing well. She is of high spirits. No overnight issues. Pain controlled Tolerating diet. No CP/SOB/difficulty swallowing/MELGAR/Ab pain/vomiting. Unfortunately, patient has not had any return of function of her right lower extremity. She has had an improvement in her headaches over the course of the last 12 hours. Objective: Vitals: 06/15/24 0753 BP: (!) 146/94 Pulse: 59 Resp: 16 Temp: 36.7 ??C (98.1 ??F) SpO2: 99% Gen: NAD BACK: wound with good approximation, no erythema/drainage/dehiscence. Drain output: 200 cc overnight. This output appears to be mostly bloody in nature. This drain should be left off of suction which will I will ensure this morning. LOWER EXTREMITY: L2: Psoas L3: Quadriceps L4: Tibialis Anterior L5: Extensor Hallucis Longus S1: Gastrocnemius, Soleus S1: Hamstring RIGHT 0 0 0 0 0 0 LEFT 1 2 2 2 2 1 Deep peroneal, Superficial peroneal, and Tibial nerves intact to the left lower extremity. No sensation to right lower extremity distally. Calf soft and NT + Dorsalis Pedis pulse I/O last 3 completed shifts: In: 1800 (22 mL/kg) [P.O.:1800] Out: 3245 (39.6 mL/kg) [Urine:2555 (0.9 mL/kg/hr); Drains:690] Weight: 82 kg Assessment: POD #4 s/p T5-[address] Ramirez Hall MD Plan: Activity: Out of bed as tolerated DVT prophylaxis: Mechanical (PAS/OOB)- no chemical anticoagulation due to risk of post op bleeding Physical therapy to mobilize Pain control Drain. To be left in. Drain should be on gravity only. When the drain reservoir is emptied it should be hooked up just to gravity and not to any suction at this time. Diet: Regular diet as tolerated Leave Hemovac to gravity. Monitor output. Morro Spear PA-C Department of Orthopedics [phone] [facility] [phone] General Pager * Jaqui Vazquez RN - 06/15/2024 6:00 AM EST Pt. Ar[facility] overnight. She is alert, oriented and appropriate. She has been medicated with PRN Oxy w/good results. Proper safety measurements maintained. Will continue to monitor. * Ruma Brooks RN - 06/14/2024 9:47 PM EST Patient made aware of the Virtual Nurse role, all questions were answered to satisfaction. Patient agreeable to virtual monitoring and are aware she may request to have virtual monitoring turned off at any time for privacy. Pt demonstrated proper use of call [place] for both bedside and VRN. 06/14/242146 Safe Environment Arm Bands On ID The Patient's Environment is Safe Yes Side Rails/Bed Safety 3/4 Telemetry Details Conditioning Coach On No * THEODROA Ortiz - 06/14/2024 6:32 PM EST Surgical ICU Team Transfer Note Yuly Montoya presented to the ICU s/p T5-T8 fusion, T5-7 decompression and T6-7 facetectomy and removal of mass. She was transferred to SICU for resuscitation, close neuro monitoring, and MAP pushes. She has not required vasopressor support to reach MAP goal since 06/13 300 and has now responded to our therapies with resolution all critical care needs. Case discussed on rounds with Dr. Harp determined to be appropriate for transfer out of SICU level of care. As such, Patient will be transferred to 7-7, tele 2. There is a detailed daily Critical Care progress note in EPIC written by Christal SIMPSON that delineates the plan of care for today. In summary, the following changes were made today: half of her home dose Valsartan (160 mg) were started with hydralazine 10mg for SBP > 160. Her Dyazide is scheduled to start tomorrow. Upon transfer out of the Critical Care Unit, the following items were communicated to the primary team for follow-up: BP, PT/OT, discharge planning, timing of DVT prophylaxis. Care for the patient was handed over to Ortho Spine. The patient's active problem list is: Patient Active Problem List Diagnosis Lumbar spondylosis Onychomycosis Pain in toe Sacroiliitis (CMS/HCC) Spondylolisthesis Cervical spondylosis Spinal stenosis of thoracic region Thoracic spinal stenosis Age-related macular degeneration Anxiety Atrial flutter (CMS/HCC) Obstructive sleep apnea syndrome Deep vein thrombosis (DVT) of lower extremity (CMS/HCC) History of artificial joint Hypertension Osteoarthritis of hip Peripheral venous insufficiency S/P tonsillectomy and adenoidectomy Bradycardia Thoracic myelopathy Please do not hesitate to call with any questions or concerns. THEODORA Ortiz Surgical ICU Team [phone] (SICU Mobile Phone) * THEODORA Jimenez - 06/14/2024 5:57 AM EST Surgical ICU Progress Note: Admit Date: 06/10/2024 LOS: 4 days ICU/ICA LOS: 2d 11h POD #: 3 Subjective / ICU Course: 68 yo female with Pmhx of a-flutter (s/p ablation), anxiety, arthritis, HTN, Lymphedema and multiple spine decompressions since April. 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 On 05/23/24 T6-7 thoracic laminectomy with tumor resection at [facility]. Post- op bradycardia, right leg weakness with difficulty ambulating, urinary retention. Discharged on to inpatient rehab on prednisone taper. 05/31 leg weakness worse. Repeat MRI with continued cord compression. On 06/01 re-op for decompression. Returned to inpatient rehab on 06/02 at discharge 0/5 RLE and LLE able to wiggle toes minimal sensation from umbilicus distally. 06/11 she was transferred to [facility] and underwent T5-T8 fusion and T5-7 decompression T6-7 facetectomy and removal of mass. Post-op transfer toSICU for resuscitation, close neuro monitoring, and MAP pushes. Last 24 hours: - maintain MAP > 85. Off phenylephrine since 06/13 at 0300 - LLE sensation intact. Unable to lift against gravity. 3/5 strength. - RLE no sensation or movement to approx. T10. - No BM since 06/09. Bowel regimen increased. Physical Exam: Vitals: Temp: 36.6 ??C (97.9 ??F) (06/14 0400) Heart Rate: 52 (06/14 0500) Resp: 13 (06/14 0500) BP: 192/90 (06/14 0500) Height: 157.5 cm (62 ) Weight: 82 kg (180 lb 12.4 oz) MAP (Device/Manual Entry): 118 mmHg Physical Exam: GENERAL Resting in bed with an iPad. No acute distress. HEAD/FACE Atraumatic. No abnormalities. EYES Pupils- PERRL CVS Normal rate, regular rhythm. LUNGS Clear to auscultation. ABD Soft, non-tender, non-distended. Indwelling urinary catheter in place for chronic urinary retention. NEURO Awake and alert. 5/5 strength to bilateral upper extremities. 3/5 strength to LLE, 0/5 strength to RLE. Decreased sensation to LLE, no sensation to RLE. SKIN Warm and dry. Hemovac in place with sanguinous output. THEODORA Diaz Surgical ICU Team * THEODORA Franklin - 06/13/2024 8:08 AM EST Ortho Spine THEODORA Note Subjective: Pt doing well. No acute overnight issues. Pain controlled She states that she is beginning to regain some sensation to the plantar aspect of the left foot aswell as subjective increase strength in the left lower extremity. She continues to state that she has weakness in the right lower extremity as well as decreased sensation on the right side. No SOB/difficulty swallowing/CP/MELGAR/Ab pain/vomiting. Pre op symptoms: Bilateral lower extremity weakness and numbness Objective: Vitals: 06/13/24 0700 BP: (!) 148/75 Pulse: 51 Resp: 20 Temp: SpO2: 100% @[id number](wbc,hematocrit,hemoglobin,pltcount,inr,bmp,typeandscreen,esr,crea ctiveprotein)@ Gen: NAD, resting comfortably upright in bed HVx1 drain: 120/250 cc over the past to 12-hour shifts. UPPER EXTREMITY: C5: Deltoid, Biceps C6: Wrist Extension C7: Tricep, Wrist Flexion C8: Finger Flexion T1: Hand Intrinsics RIGHT 5/5 5/5 5/5 5/5 5/5 LEFT 5/5 5/5 5/5 5/5 5/5 Deltoid/Radial/Median/Ulnar nerves intact LOWER EXTREMITY: L2: Psoas L3: Quadriceps L4: Tibialis Anterior L5: Extensor Hallucis Longus S1: Gastrocnemius, Soleus RIGHT 0/5 0/5 0/5 0/5 0/5 LEFT 0/5 2/5 4/5 4/5 3+/5 Decreased sensation on the left lower extremity, however improving. No sensation to the right lower extremity. 2+ distal pulses Dressing clean and dry, wound healing well without erythema or drainage I/O: I/O last 3 completed shifts: In: 8609.6 (105 mL/kg) [P.O.:1320; I.V.:3249.6 (39.6 mL/kg); IV Piggyback:4040] Out: 4110 (50.1 mL/kg) [Urine:3600 (1.2 mL/kg/hr); Drains:510] Weight: 82 kg LABS: Lab Results Component Value Date WBC 12.9 (H) 06/13/2024 HGB 9.7 (L) 06/13/2024 HCT 28.4 (L) 06/13/2024 PLT 181 06/13/2024 ALT 20 06/08/2024 AST 10 06/08/2024 NA 133 (L) 06/13/2024 K 4.2 06/13/2024 CL 103 06/13/2024 CREATININE 0.50 06/13/2024 BUN 15 06/13/2024 CO2 25 06/13/2024 Assessment: POD #2 s/p T5-8 posterior fusion and decompression by Dr. Ramirez Hall MD Plan: Activity: Out of bed as tolerated DVT prophylaxis: Mechanical (PAS/OOB)- no chemical anticoagulation due to risk of post op bleeding Pain control Drain. Monitor output. If output decreases over the next 24 hours, may plan to remove tomorrow. Diet: Regular diet as tolerated Continue to monitor neurostatus. Keep MAP greater than 85 for cord perfusion Continue care per ICU Fidel Mendoza PA-C Orthopedic Surgery [facility] Pager: [phone] Ortho Trauma Pager: [phone] * Edgar Valencia DO - 06/13/2024 6:19 AM EST SURGICAL INTENSIVE CARE UNIT PROGRESS NOTE Code Status: No CPR/Do Not Intubate LOS: LOS: 3 days ICU Day: 2 POD: 2 SUBJECTIVE HPI: 68 yo female with Pmhx of a-flutter (s/p ablation), anxiety, arthritis, HTN, Lymphedema and C4-5 spondylolisthesis, previous L2-3 decompression, L3-4, L4-5 decompression and L4-S1 fusion, She was seen in neurosurgery office in mid April for difficulty in holding up her head, worse balance and left leg weakness. 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 On 05/23/24 she underwent T6-7 thoracic laminectomy with tumor resection at [facility]. Post-op bradycardia, right leg weakness with difficulty ambulating, urinary retention discharged on 05/29 with varma to inpatient rehab on prednisone taper at that time 0/5 Right hip flexion, 1/5 hip flexion, 4/5ankle dorsi/plantar flex. 05/31 leg weakness worse repeat MRI on 05/31 with continued cord compression with fluid collection requiring reop on 06/01 for decompression. Returned to inpatient rehab on 06/02 at discharge she had 0/5 RLE and LLE able to wiggle toes minimal sensation from umbilicus dista lly. 06/11 she was transferred to [facility] and underwent T5-T8 fusion and T5-7 decompression T6-7 facetectomy and removal of mass. Post-op transfer to SICU for resuscitation and close neuro monitoring. Overnight Events: -Continues to have no RLE movement or sensation to approx. T10 region -Increased sensation on the plantar surface of the left foot. OBJECTIVE FLUID BALANCE VITAL SIGNS Intake/Output Summary (Last 24 hours) at 06/13/2024 06 Last data filed at 06/13/2024 0600 Gross per 24 hour Intake 2671.45 ml Output 2960 ml Net -288.55 ml Weight change: 0.353 kg (12.4 oz) Visit Vitals BP 124/87 Pulse 56 Temp 36.9 ??C (98.4 ??F) (Oral) Resp 15 OXYGENATION AND VENTILATION Last ABG: PHYSICAL EXAMINATION GENERAL Alert and oriented. Generally well appearing. Bright affect. HEAD/FACE Non traumatic. Normocephalic. EYES 3mm bilaterally. PERRL. EOMI intact. ENT Mucus membranes moist. CVS Regular rate and rhythm. No murmurs or rubs noted. LUNGS Clear to auscultation bilaterally. ABD Mild tenderness int he LLQ. Soft. Varma in place. NEURO UE 5/5 strength bilaterally. LLE 3/5 strength. Senstation intact. RLE 0/5. No sensation. EXTREMITIES Pulses intact in all extremities. No movement in the RLE. Minimal movement LLE. SKIN Warm and dry. CURRENT MEDICATIONS acetaminophen, 650 mg, oral, q6h EDEN cevimeline, 30 mg, oral, TID dexAMETHasone, 4 mg, intravenous, q6h EDEN doxepin, 50 mg, oral, Nightly DULoxetine, 60 mg, oral, Daily famotidine, 20 mg, oral, Daily gabapentin, 500 mg, oral, q8h insulin lispro, 1-6 Units, subcutaneous, TID AC polyetheylene glycol, 17 g, oral, Daily senna, 2 tablet, oral, Nightly sodium chloride, 10 mL, intravenous, BID tiZANidine, 2 mg, oral, Daily phenylephrine, 0.5-5 mcg/kg/min, Last Rate: Stopped (06/13/24 0317) PRN medications: bisacodyL, dextrose 50%, dextrose 50%, dextrose, dextrose, glucagon injection, HYDROmorphone, Insert peripheral IV AND Maintain IV access AND Saline lock IV AND sodium chloride AND sodium chloride, traZODone LINES & DRAINS Peripheral IV 06/11/24 Anterior;Left;Lateral Forearm (Active) Site Assessment Clean;Dry;Intact 06/12/24 08 Dressing Type Transparent 06/12/24 08 Line Status Flushed 06/12/24 08 Phlebitis Scale 0 06/11/24 1259 Dressing Status Clean;Dry;Intact 06/11/241999 Dressing Intervention Dressing reinforced 06/11/241999 Peripheral IV 06/11/24 Right Hand (Active) Site Assessment Clean;Dry;Intact 06/12/24 08 Dressing Type Transparent 06/12/24799 Line Status Flushed 06/12/24 08 Dressing Status Clean;Dry;Intact 06/12/24 08 Dressing Intervention Dressing reinforced 06/11/241999 Closed/Suction Drain Right;Other (Comment) Back Other (Comment) 10 Fr. (Active) Site Description Clean;Dry;Intact 06/12/24 08 Dressing Status Clean;Dry;Intact 06/12/24 08 Drainage Appearance Bloody 06/12/24 08 Status Other (Comment) 06/12/24 08 Output (mL) 120 mL 06/12/24 09 Urethral Catheter Straight-tip 16 Fr. (Active) Site Assessment Clean 06/12/24 0800 Collection Container Standard drainage bag 06/12/24 08 Securement Method Securing device (Describe) 06/12/24 08 Reason for Continuing Urinary Catheterization Critically ill and need for accurate measurements of I&O (e.g., hourly monitoring) 06/12/24 0800 Urinary Catheter Output (mL) 30 mL 06/12/24 0900 NUTRITION Diet Order: Dietary Orders (From admission, onward) Start Ordered 06/12/24 09 Adult diet [facility]; General; Regular Diet effective now Question Answer Comment Location [facility] Diet Type (req) General General Diet Regular 06/12/24905 LAB RESULTS Lab Results Component Value Date WBC 12.9 (H) 06/13/2024 HGB 9.7 (L) 06/13/2024 HCT 28.4 (L) 06/13/2024 PLT 181 06/13/2024 Lab Results Component Value Date NA 133 (L) 06/13/2024 K 4.2 06/13/2024 CL 103 06/13/2024 CO2 25 06/13/2024 BUN 15 06/13/2024 CREATININE 0.50 06/13/2024 Lab Results Component Value Date LACTATE 3.2 (H) 06/11/2024 RADIOLOGY XR Abdomen 1 View Narrative: HISTORY: The patient is a 68-year-old female [...] No mass or radiopaque calculus is seen. Impression: Nonspecific nonobstructive bowel gas pattern. There are gas-filled nondilated loops of small bowel as well as moderate gaseous distention of the stomach. Code 17675 -------- FINAL REPORT -------- Dictated By: Ryan Schroeder Dictated Date: 06/08/2024 07:51 ET Assigned Physician: Ryan Schroeder Reviewed and Electronically Signed By: Ryan Schroeder Signed Date: 06/08/2024 07:53 ET Workstation ID: [id number] Transcribed By: Self Edit Transcribed Date: 06/08/2024 07:51 ET MICROBIOLOGY I have reviewed the relevant microbiology ASSESSMENT & PLAN Diagnosis Plan Neuro: - Neurogenic bowel and bladder -S/p T5-7 decompression T6-7 facetectomy and removal of mass - bilateral LE paralysis - acute pain due to surgery - Tylenol 100 q6, neurontin 500 TID Zanaflex 2mg daily - PRN Fentanyl - Decadron 4mg Q6 - Maintain MAP > 85 mmHG Cardiovascular/Hematologic: -Post op hypotension - acute blood loss anemia 600ml EBL - hypercoagulable state due to surgery - POCUS performed - IVC complete collapse - Start peripheral jaxon synephrine goal MAP > 85 mmHG - IVF bolus 2 liters on 06/11 - Check CBC - transfuse for Hgb <7 or if there is evidence of continued bleeding - place tiff for close BP monitoring Pulmonary: - post op atelectasis -IS Q1 hours while awake GI/Nutrition: - on steroids - opiate induced constipation - multiple recent surgeries with minimal PO intact - moderate protein malnutrition -Bowel Regimen -Cleared for normal diet. - Protein supplementation /Renal/Lytes: -Neurogenic bladder -Varma placement and care. -Removal of varma with bladder scans Endocrine: -Steroid induced hyperglycemia -GUADALUPE to maintain blood glucose 1101-180 ID: S/P surgery Ancef x2 doses Musculoskeletal: Bilateral LE paralysis -Aggressive PT/OT Skin/Wound: Back incision Local wound care Restraints: None DVT Prophylaxis: SCD Family Updated: Several minutes of critical care time was spent in direct patient care at the bedside or in the immediate area with this patient. They are acutely ill with system failure. They are at high risk for decompensation. This time was spent assessing and managing the patient, interpreting labs and imaging, coordinating care with other medical providers, and gathering history and discussing management and prognosis with family. Edgar Valencia DO Surgical ICU Team Associated attestation - Lulu More MD - 06/15/2024 4:13 PM EST Surgical Critical Care Attending Attestation I have examined the patient and reviewed the history, physical, assessment and plan, and I am in agreement with the above note with the following additions: - interval events as above - She has been off jaxon gtt for past 5 hours. She is since maintaining appropriate MAP on her own. - no complaints this morning, in good spirits and pleasant. - Afebrile, non-tachycardic. LLE with 3/5 strength and she also reports feeling increased sensationon her plantar surface. Right leg remains 0/5 without sensation. - Surgical drain SS and has put out 370 cc - UOP 100-200 cc/hr Critical Care Diagnoses: Spinal cord compression T6 Extradural mass Hypophosphatemia Hypomagnesemia Hyponatremia Hx of atrial flutter Hx of HTN Plan - continue MM pain control - continue decadron - continue neurochecks - follow up NSGY recs - goal MAP >85. Off vasopressors - continue home cymbalta and trazodone and doxepin. Holding home anti-hypertensives - IS, RT - diet + supplements - bowel regimen - replete lytes PRN - discontinue varma - SSI, monitor glucoses while steroids on-board - no indication for transfusion - ancef jigar-operatively - PT/OT - SCDs, hold DVT chemoppx until cleared by NSGY - continue ICU while MAP goal and Critical Care Attestation: I personally spent approximately 40 minutes of critical care time, exclusive of time spent on separately billable procedures. Patient has a high probability of imminent or life-threatening deterioration due to the above conditions, which require direct attention, intervention, and management. Time includes review of laboratory data, radiology results, discussion with consultants and review of their recommendations, and monitoring for potential decompensation. Lulu More MD Trauma, Critical Care, Acute Care Surgery Service * Nusrat Solomon RN - 06/13/2024 1:16 AM EST Problem: Self-Care: IPR IPOC Goal: Patient/caregiver collaborates in the IPR process in person or with business team leader Outcome: Progressing Problem: Falls: Fall Risk (Adult IP BH) Goal: Patient will not fall or injure themselves during hospitalization. Outcome: Progressing Problem: Physical Regulation:Physical Mobility Impairment Goal: Ability to avoid complications of mobility impairment will improve Outcome: Progressing Problem: Cognitive:Transitional Care Goal: Barriers related to transition Outcome: Progressing Problem: Sensory:Periop Procedure - Major Goal: Demonstrates/reports adequate pain control Outcome: Progressing Problem: Skin Integrity: Periop Procedure - Major Goal: Patient will remain free of injury and skin integrity maintained Outcome: Progressing Goals: Identify possible barriers to meeting goals/advancing plan of care: Stability of the patient: Moderately Stable - Low risk of patient condition declining or worsening End of Shift Summary: Patient is alert and oriented, able to clearly communicate and well aware of what her condition is. She is eager to improve strength in her RLE. Appropriate pain control. Minimal fall risk- pt does not attempt to get out of bed or move without assistance. * Rafiq Parks - 06/12/2024 10:15 AM EST SPIRITUAL CARE Date/Time:06/12/24 at 10:15 AM EST Type of Visit: Initial Visit and Follow-up Reason for Visit: Spiritual/Emotional Support Time Spent: 15 Minutes Location: [address] [place] [address] Sacramental Encounters: Spiritual Distress Assessment: Spiritual Distress Assessment at beginning of visit Meaning - Overall Life Balance: No evidence of unmet spiritual need Transcendence: No evidence of unmet spiritual need Values - Acknowledgement: No evidence of unmet spiritual need Values - Control: No evidence of unmet spiritual need Psycho-Social Identity: No evidence of unmet spiritual need SDAT Beginning of Visit Average Score: 0 Spiritual Distress Assessment at end of visit Meaning - Overall Life Balance: No evidence of unmet spiritual need Transcendence: No evidence of unmet spiritual need Values - Acknowledgement: No evidence of unmet spiritual need Values - Control: No evidence of unmet spiritual need Psycho-Social Identity: No evidence of unmet spiritual need SDAT End of Visit Average Score: 0 Spiritual Assessment/Distress Spiritual Care Assessment: Assessment: Rouge Mixer visited with this patient as consult. Patient in good spirits, said she has been blessed with patience. Rouge Mixer provided calming and spiritual presence, using active and compassionate listening to help assuage any fears and anxieties of patient. Informed patient of 10/01 spiritual care services. Conveyed blessing and left. Intervention: NE Spiritual Care Interventions : focus on the present, normalized experience of patient/family, provided anxiety containment, provided support, explored emotional needs and resources, explored hope,listened empathically, provided hospitality, and provided silent and supportive presence Outcomes: catharsis, debriefed/defused experience, distress reduced, and unknown outcome Plan of Care: Visit as needed *Reference: Spiritual Distress Assessment Tool: The SDAT is a clinical tool used by chaplains to identify unmet spiritual and emotional needs that can impact Goals of Care in the following categories: Spiritual Distress Assessment Legend Spiritual Needs Related Questions Meaning Are you having difficulties coping with what is happening to your now? Does your hospitalization have any repercussions on the way you live usually? Transcendence Do you have a particular shinto, kalpesh, or spirituality? Is your shinto/spirituality/kalpesh challenged by what is happening to you now? Values Do you think that the health professionals caring for you know you well enough? Do you feel that you are participating in the decisions made about your care? Psycho-Social Identity Do you have any worries or difficulties regarding your family or other persons close to you? Do you feel lonely? Do you have links to your kalpesh community? SCALE 0= no evidence of unmet spiritual needs 1= some evidence of unmet spiritual needs 2= substantial evidence of unmet spiritual needs 3= evidence of severe unmet spiritual needs * Ramirez Hall MD - 06/12/2024 7:13 AM EST Ortho Thoracic/Lumbar Spine PA-C Note Subjective: No major issues overnight. [place] [facility] [place] outside center. On presentation, she had profound bilateral lower extremity weakness. She underwent a multilevel thoracic fusion yesterday. She continues to have bilateral lower extremity weakness. She was admitted to the ICU for blood pressure monitoring (mapgreater than 85) as well as neuro monitoring. Continues to complain of bilateral lower extremity weakness and numbness. She does feel that her left ankle strength has improved slightly. Objective: Vitals: 06/12/24 0700 BP: 108/58 Pulse: 56 Resp: 17 Temp: SpO2: 99% @[id number](wbc,hematocrit,hemoglobin,pltcount,inr,bmp,typeandscreen,esr,crea ctiveprotein)@ Gen: NAD. ANO x 3. Drain output HV drain holding suction LOWER EXTREMITY: L2: Psoas L3: Quadriceps L4: Tibialis Anterior L5: Extensor Hallucis Longus S1: Gastrocnemius, Soleus S1: Hamstring RIGHT 0 0 0 0 0 0 LEFT 0 1 4 4 3 0 Decreased sensation through LLE. No sensation to RLE Calf soft and NT + Dorsalis Pedis pulse I/O last 3 completed shifts: In: 6938.1 (85 mL/kg) [I.V.:2938.1 (36 mL/kg); IV Piggyback:4000] Out: 3605 (44.2 mL/kg) [Urine:3365 (1.1 mL/kg/hr); Drains:140; Blood:100] Weight: 81.6 kg Assessment: POD #1 s/p T5-8 posterior fusion and decompression by Dr. Ramirez Hlal MD Plan: Activity: Out of bed as tolerated DVT prophylaxis: Mechanical (PAS/OOB)- no chemical anticoagulation due to risk of post op bleeding Pain control Drain. Monitor output Diet: Regular diet as tolerated Continue to monitor neurostatus. Hopefully, this improves over the ensuing days/weeks. Keep MAP greater than 85 for cord perfusion Care per ICU Rafael Givens PA-C Department of Orthopedics [phone] [facility] [phone] General Pager Attending note: Pt was seen and examined today, I agree with the above assessment and plan outlined by the midlevelprovider Proprioception in left LE and DF/PF seem slightly improved Will need MAP's >85 mm Hg Lovely Hall MD, PhD Neurosurgery [facility] [phone] (W) [phone] (F) * THEODORA Anaya - 06/12/2024 5:48 AM EST Surgical ICU Progress Note: Admit Date: 06/10/2024 Hospital LOS LOS: 2 days ICU LOS: 11h POD #: 2 Subjective / ICU Course: 68 yo female with Pmhx of a-flutter (s/p ablation), anxiety, arthritis, HTN, Lymphedema and C4-5 spondylolisthesis, previous L2-3 decompression, L3-4, L4-5 decompression and L4-S1 fusion, She was seen in neurosurgery office in mid April for difficulty in holding up her head, worse balance and left leg weakness. 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 On 05/23/24 she underwent T6-7 thoracic laminectomy with tumor resection at [facility]. Post-op bradycardia, right leg weakness with difficulty ambulating, urinary retention discharged on 05/29 with varma to inpatient rehab on prednisone taper at that time 0/5 Right hip flexion, 1/5 hip flexion, 4/5 ankle dorsi/plantar flex. 05/31 leg weakness worse repeat MRI on 05/31 with continued cord compression with fluid collection requiring reop on 06/01 for decompression. Returned toinpatient rehab on 06/02 at discharge she had 0/5 RLE and LLE able to wiggle toes minimal sensationfrom umbilicus distally. 06/11 she was transferred to [facility] and underwent T5-T8 fusion and T5-7 decompression T6-7 facetectomy and removal of mass. Post-op transfer to SICU for resuscitation and close neuro monitoring. Last 24 hours: - maintain MAP > 85 mmHG - Jaxon synephrine 0.4 mcg/kg/hr - NS jorjeuis x3 - best neuro: AAOx3, UE 5-/5 bilaterally,, LLE dorsi/plantar flex 3/5 and knee flex/ext 3/5, RLE 0/5 LINES: PV DRAINS: hemovac, varma cath DRIPS: neosynephrine 0.4 mcg/hr IVF: LR 125 ml//hr NUTRITION: NPO DVT: PAS MEDS: Tylenol 1000mg Q6, Evoxac 30mg TID, Decadron 4mg Q6, Doxepin 50mg Qhs, Cymblta 60mg daily, Pepcid, Neurontin 800mg Q12, GUADALUPE, Miralax daily, Senokot Qhs, Zanaflex 2mg daily, PRNs: Dulcolax, dextrose, Dilaudid 0.5 mg q2, Trazodone 75 Qhs ABX: ancef x2 CULTURES: none VENT/O2: none CONSULT: none Vitals: Temp: 36.6 ??C (97.9 ??F) (06/12 0000) Heart Rate: 58 (06/12 0500) Resp: 11 (06/12 0500) BP: 128/69 (06/12 0500) Intake/Output Summary (Last 24 hours) at 06/12/2024 0548 Last data filed at 06/12/2024 0500 Gross per 24 hour Intake 6761.07 ml Output 3435 ml Net 3326.07 ml Wt Readings from Last 3 Encounters: 06/11/24 81.6 kg (180 lb) 06/09/24 81.8 kg (180 lb 6.4 oz) 06/01/24 82.6 kg (182 lb) Visit Vitals BP 128/69 Pulse 58 Temp 36.6 ??C (97.9 ??F) (Oral) Resp 11 Ht 1.575 m (62 ) Wt 81.6 kg (180 lb) SpO2 95% BMI 32.92 kg/m?? OB Status Postmenopausal Smoking Status Every Day BSA 1.83 m?? Constitutional: Well nourished, calm and cooperative, HOB 30 degrees HEENT: NC AT Neck: trachea midline. No JVD Neuro: AAOx3, PERRL, EOMI, facial expression symmetrical, bilateral UE -5/5, LLE dorsi/plantar flex 3/5 and knee flex/ext 3/5, RLE 0/5 BACK: dressing CDI, hemovac with bloody drainage - hemovac 100ml/hr CV: RRR S1S2 no MRG Resp: CTA bilaterally Abd/GI: Soft NTND : varma in place Ext: Warm, dry no edema Rafiq Chiu MBA PA-C [facility] Surgical Critical Care available via Secure Chat * THEODORA Anaya - 06/11/2024 9:07 PM EST SURGICAL INTENSIVE CARE UNIT PROGRESS NOTE Code Status: No CPR/Do Not Intubate LOS: LOS: 1 day ICU Day: 1 POD: DOS SUBJECTIVE HPI: 68 yo female with Pmhx of a-flutter (s/p ablation), anxiety, arthritis, HTN, Lymphedema and C4-5 spondylolisthesis, previous L2-3 decompression, L3-4, L4-5 decompression and L4-S1 fusion, She was seen in neurosurgery office in mid April for difficulty in holding up her head, worse balance and left leg weakness. 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 On 05/23/24 she underwent T6-7 thoracic laminectomy with tumor resection at [facility]. Post-op bradycardia, right leg weakness with difficulty ambulating, urinary retention discharged on 05/29 with varma to inpatient rehab on prednisone taper at that time 0/5 Right hip flexion, 1/5 hip flexion, 4/5ankle dorsi/plantar flex. 05/31 leg weakness worse repeat MRI on 05/31 with continued cord compression with fluid collection requiring reop on 06/01 for decompression. Returned to inpatient rehab on 06/02 at discharge she had 0/5 RLE and LLE able to wiggle toes minimal sensation from umbilicus dista lly. 06/11 she was transferred to [facility] and underwent T5-T8 fusion and T5-7 decompression T6-7 facetectomy and removal of mass. Post-op transfer to SICU for resuscitation and close neuro monitoring. Onarrival RLE 1/5 dorsi/plantar flex Overnight Events: LINES: PV DRAINS: hemovac, varma cath DRIPS: neosynephrine 0.1 mcg/hr IVF: LR 125 ml//hr NUTRITION: NPO DVT: PAS MEDS: Tylenol 1000mg Q6, Evoxac 30mg TID, Decadron 4mg Q6, Doxepin 50mg Qhs, Cymblta 60mg daily, Pepcid, Neurontin 800mg Q12, GUADALUPE, Miralax daily, Senokot Qhs, Zanaflex 2mg daily, PRNs: Dulcolax, Fentanyl 50 Q1, Trazodone 75 Qhs ABX: ancef x2 CULTURES: none VENT/O2: none CONSULT: none OBJECTIVE FLUID BALANCE VITAL SIGNS Intake/Output Summary (Last 24 hours) at 06/11/20242106 Last data filed at 06/11/2024 1906 Gross per 24 hour Intake 1000 ml Output 2805 ml Net -1805 ml Weight change: Visit Vitals BP (!) 143/83 Pulse 56 Temp 36.6 ??C (97.8 ??F) (Oral) Resp 15 OXYGENATION AND VENTILATION Last ABG: Visit Vitals BP (!) 143/83 Pulse 56 Temp 36.6 ??C (97.8 ??F) (Oral) Resp 15 Ht 1.575 m (62 ) Wt 81.6 kg (180 lb) SpO2 100% BMI 32.92 kg/m?? OB Status Postmenopausal Smoking Status Every Day BSA 1.83 m?? Constitutional: Well nourished, calm and cooperative, HOB 30 degrees HEENT: NC AT Neck: trachea midline. No JVD Neuro: sleepy, PERRL, EOMI, facial expression symmetrical, bilateral UE -5/5, LLE 0/5, RLE 1/5 footdorsi/plantar flex BACK: dressing CDI, hemovac with bloody drainage CV: RRR S1S2 no MRG Resp: CTA bilaterally Abd/GI: Soft NTND : varma in place Ext: Warm, dry no edema CURRENT MEDICATIONS acetaminophen, 1,000 mg, oral, q6h EDEN [START ON 06/12/2024] ceFAZolin, 2 g, intravenous, q8h cevimeline, 30 mg, oral, TID dexAMETHasone, 4 mg, intravenous, q6h EDEN doxepin, 50 mg, oral, Nightly DULoxetine, 60 mg, oral, Daily famotidine, 20 mg, oral, Daily gabapentin, 800 mg, oral, q12h EDEN [START ON 06/12/2024] insulin lispro, 1-6 Units, subcutaneous, TID AC phenylephrine, , , polyetheylene glycol, 17 g, oral, Daily senna, 2 tablet, oral, Nightly sodium chloride, 10 mL, intravenous, BID tiZANidine, 2 mg, oral, Daily phenylephrine, 0.5-5 mcg/kg/min, Last Rate: 0.1 mcg/kg/min (06/11/242014) sodium chloride, 125 mL/hr, Last Rate: 125 mL/hr (06/11/241949) PRN medications: bisacodyL, dextrose 50%, dextrose 50%, dextrose, dextrose, fentaNYL, glucagon injection, phenylephrine, Insert peripheral IV AND Maintain IV access AND Saline lock IV ANDsodium chloride AND sodium chloride, traZODone LINES & DRAINS Peripheral IV 06/11/24 Anterior;Left;Lateral Forearm (Active) Site Assessment Clean;Dry;Intact 06/11/24 1259 Dressing Type Transparent 06/11/24 1259 Line Status Flushed 06/11/24 1259 Phlebitis Scale 0 06/11/24 1259 Dressing Status Clean;Dry;Intact 06/11/24 1259 Peripheral IV 06/11/24 Right Hand (Active) Urethral Catheter Straight-tip 16 Fr. (Active) Site Assessment Clean;Skin intact 06/11/24 1335 Collection Container Standard drainage bag 06/11/24 1335 Securement Method Securing device (Describe) 06/11/24 1335 Reason for Continuing Urinary Catheterization Prolonged immobilization (potentially unstable thoracic or lumbar spine, multiple traumatic injuries such as pelvic fractures) 06/11/24 1335 ETT 7 mm (Active) NUTRITION Diet Order: Dietary Orders (From admission, onward) Start Ordered 06/11/24 0001 Adult NPO diet Location: [facility]; Diet: NPO- Except for Medications Diet effective midnight Question Answer Comment Location [facility] Diet NPO- Except for Medications 06/10/24 1819 LAB RESULTS Lab Results Component Value Date WBC 13.6 (H) 06/11/2024 HGB 11.5 (L) 06/11/2024 HCT 34.2 (L) 06/11/2024 PLT 234 06/11/2024 No results found for: NA , K , CL , CO2 , BUN , CREATININE Lab Results Component Value Date LACTATE 3.2 (H) 06/11/2024 RADIOLOGY XR Abdomen 1 View Narrative: HISTORY: The patient is a 68-year-old female [...] No mass or radiopaque calculus is seen. Impression: Nonspecific nonobstructive bowel gas pattern. There are gas-filled nondilated loops of small bowel as well as moderate gaseous distention of the stomach. Code 49343 -------- FINAL REPORT -------- Dictated By: Ryan Schroeder Dictated Date: 06/08/2024 07:51 ET Assigned Physician: Ryan Schroeder Reviewed and Electronically Signed By: Ryan Schroeder Signed Date: 06/08/2024 07:53 ET Workstation ID: [id number] Transcribed By: Self Edit Transcribed Date: 06/08/2024 07:51 ET MICROBIOLOGY I have reviewed the relevant microbiology ASSESSMENT & PLAN Diagnosis Plan Neuro: - S/p T5-7 decompression T6-7 facetectomy and removal of mass - bilateral LE paralysis - acute pain due to surgery - Tylenol 100 q6, neurontin 800 BID, Zanaflex 2mg daily - PRN Fentanyl - Decadron 4mg Q6 - maintain MAP > 85 mmHG Cardiovascular/Hematologic: -post op hypotension - acute blood loss anemia 600ml EBL - hypercoagulable state due to surgery - POCUS performed - IVC complete collapse - start peripheral jaxon synephrine goal MAP > 85 mmHG - IVF bolus 2 liters - check CBC - transfuse for Hgb <7 or if there is evidence of continued bleeding - place tiff for close BP monitoring Pulmonary: - post op atelectasis IS Q1 hours while awake GI/Nutrition: - multiple recent surgeries with minimal PO intact - moderate protein malnutrition - on steroids - opiate induced constipation - encourage PO when more awake - protein supplements - stress ulcer prophylaxis while on steroids with Pepcid - Miralax and Senokot PRN colace /Renal/Lytes: - Urinary retention since first spinal surgery May 24 - continue varma during immediate post op period and then remove with bladder scans Endocrine: - steroids induced hyperglycemia GUADALUPE to maintain blood glucose 1101-180 ID: Ancef x2 doses Musculoskeletal: Bilateral LE paralysis Aggressive PT/OT Skin/Wound: Back incision Keep dressing CDI Restraints: none DVT Prophylaxis: SCD Family Updated: By Dr Hall 56 minutes of critical care time was spent in direct patient care at the bedside or in the immediate area with this patient. They are acutely ill with system failure. They are at high risk for decompensation. This time was spent assessing and managing the patient, interpreting labs and imaging, coordinating care with other medical providers, and gathering history and discussing management and prognosis with family. THEODORA Anaya Surgical ICU Team * THEODORA Fung - 06/11/2024 7:30 PM EST Ortho Thoracic/Lumbar Spine CALVIN Note Subjective: Pt doing well. Pain controlled No CP/SOB/difficulty swallowing/MELGAR/Ab pain/vomiting. Objective: Vitals: 06/11/24 1256 BP: 127/70 Pulse: 56 Resp: 14 Temp: 36.3 ??C (97.3 ??F) SpO2: 97% @[id number](wbc,hematocrit,hemoglobin,pltcount,inr,bmp,typeandscreen,esr,crea ctiveprotein)@ Gen: NAD ABD: Soft, Mild TTP jigar incisional area. Dressing Dressing clean, dry and intact BACK: Dressing clean, dry and intact Drain output HV drain holding suction LOWER EXTREMITY: L2: Psoas L3: Quadriceps L4: Tibialis Anterior L5: Extensor Hallucis Longus S1: Gastrocnemius, Soleus S1: Hamstring RIGHT 0 0 0 0 0 0 LEFT 1 2 2 2 2 0 Scattered sensation through LLE. No sensation to RLE Calf soft and NT + Dorsalis Pedis pulse I/O last 3 completed shifts: In: 1000 (12.2 mL/kg) [I.V.:1000 (12.2 mL/kg)] Out: 2455 (30.1 mL/kg) [Urine:2355 (0.8 mL/kg/hr); Blood:100] Weight: 81.6 kg Assessment: POD #0 s/p T5-8 posterior fusion and decompression by Dr. Ramirez Hall MD Plan: Activity: Out of bed as tolerated DVT prophylaxis: Mechanical (PAS/OOB)- no chemical anticoagulation due to risk of post op bleeding Physical therapy Pain control Drain. Monitor output Diet: Regular diet as tolerated Care per ICU Morro Spear PA-C Department of Orthopedics [phone] [facility] [phone] General Pager * Ambrose Edwards III, RN - 06/11/2024 7:06 PM EST ICU Nursing Admission Note Patient arrives from OR via Anesthesia and TRANSCRIPTION SPECIALIST. Patient placed on bedside monitor. Vitals and belongings as documented in flowsheets. Surgical ICU Team at bedside. Education provided to patient on plan of care, safety, and use of call [place]; patient able to verbalize understanding at this time. All safety and comfort interventions initiated. Ambrose Edwards Iii, RN * Sly Karimi MD - 06/11/2024 6:37 PM EST Updated the patient's friend on the patients evolving clinical course and anticipated next steps. We discussed her ongoing surgery Questions invited, concerns addressed. Sly Karimi MD PGY-1, Internal Medicine [address] [phone] * Alessandra Wong RN - 06/11/2024 3:40 PM EST Problem: Sensory:Periop Procedure - Major Goal: Demonstrates/reports adequate pain control Outcome: Progressing Problem: Skin Integrity: Periop Procedure - Major Goal: Patient will remain free of injury and skin integrity maintained Outcome: Progressing * Sly Karimi MD - 06/11/2024 9:30 AM EST INTERNAL MEDICINE DAILY PROGRESS NOTE Bed: 46834/85980-9 Code Status: No CPR/Do Not Intubate SUBJECTIVE 24 hour interval changes: Patient is a direct admission from [facility] for complications post resection of spinal mass. Remained hemodynamically stable overnight AM: Patient appeared very anxious, tearful at her current health status and inability to move her lowerextremities. Spiritual care consult placed ASSESSMENT AND PLAN Assessment: 68 y.o. year-old female with PMH significant for a flutter s/p ablation 2017, hypertension, thoracic spine stenosis, spinal mass s/p thoracic spinal decompression surgery x2, presenting with postsurgical complications (05/24, 06/01) including lower extremity weakness, bowel and bladder dysfunction and absence of sensation on the right side from T5-T6 and below. 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 Will have her neurosurgery today. -NPO leading to procedure, holding DVT prophylaxis -Neurosurgery following, appreciate recommendations. Follow-up postsurgical -Continue gabapentin 800 mg twice daily -Continue Decadron 4 mg every 6 hours, prednisone taper - Continue Tizanidine 2 mg daily - Continue varma catheter - Continue bowel regimen -Inpatient consult to spiritual care -Duloxetine 60 mg daily Atrial flutter Hypertension Bradycardia Patient has hx of A flutter s/p ablation in 2018. She has been having HR 40-50s resolved after her beta-katty decreased probably in the setting of spinal injury. Her BP home meds include Valsartan 320 daily, Toprol XL 50 mg, Triamterene/hydrocholothiazide 37.5/25, hydralazine 50 BID . Blood pressure stable during hospital stay - Continue valsartan 320 mg daily but switch to metoprolol tartrate 12.5 mg BID -Continue triamterene-hydrochlorothiazide 37.5-25 mg daily Generalized anxiety Home meds include doxepin 100 mg, Trazodone 75 mg. At [facility], patient was drowsy so Doxepin dose wasdecreased to 50 mg nightly with improvement in drowsiness - Continue doxepin 50 mg nightly - Continue trazodone 75 mg nightly as needed Code Status: No CPR/Do Not Intubate Disposition: Acute level care, possible ICU postprocedure DVT ppx: None Diet: Dietary Orders (From admission, onward) Orders from this encounter Start Ordered 06/11/24 0001 Adult NPO diet Location: [facility]; Diet: NPO- Except for Medications Diet effective midnight Question Answer Comment Location [facility] Diet NPO- Except for Medications 06/10/241818 Orders from suspended admission ([facility] - Darline Lara DO) Start Ordered 06/01/241938 [Order Hold - Suspended Admission] Adult diet [facility]; Cardiac; Cardiac Diet effective now (On hold at [facility] since 06/10/24 1700) Question Answer Comment Location [facility] Diet Type (req) Cardiac Diet Type (cardiac) Cardiac 06/01/241941 Plan to be discussed with attending, Dr. Arreola OBJECTIVE Vitals: I&O Last 24 hours: Visit Vitals BP 138/80 (BP Location: Left arm, Patient Position: Lying) Pulse 59 Temp 36.8 ??C (98.2 ??F) (Oral) Resp 18 SpO2 96% OB Status Postmenopausal Smoking Status Every Day Intake/Output Summary (Last 24 hours) at 06/11/2024 0930 Last data filed at 06/10/2024 1424 Gross per 24 hour Intake -- Output 1200 ml Net -1200 ml Physical Exam: Physical Exam Constitutional: General: She is not in acute distress. Cardiovascular: Rate and Rhythm: Bradycardia present. Heart sounds: Normal heart sounds. Abdominal: Palpations: Abdomen is soft. Tenderness: There is no abdominal tenderness. There is no guarding or rebound. Musculoskeletal: Right lower le+ Pitting Edema present. Left lower le+ Pitting Edema present. Comments: Patient unable to move bilateral lower extremities, has sensation to pressure on left lower extremity however unable to feel pressure on right lower extremity. Unable to move right ankle and toes. Able to do dorsiflexion of the left toes Neurological: Mental Status: She is alert and oriented to person, place, and time. Labs: No results found for this or any previous visit (from the past 24 hour(s)). Microbiology: No results found for this or any previous visit (from the past 168 hour(s)). Radiology: CT Thoracic Spine w Contrast (Results Pending) IR Myelogram Thoracic Spine (Results Pending) Medications: Scheduled Meds:acetaminophen, 1,000 mg, oral, q6h EDEN dexAMETHasone, 4 mg, oral, q6h EDEN doxepin, 50 mg, oral, Nightly DULoxetine, 60 mg, oral, Daily famotidine, 20 mg, oral, Daily gabapentin, 800 mg, oral, q12h EDEN hydrALAZINE, 50 mg, oral, BID methylPREDNISolone, 4 mg, oral, TID with meals Followed by [START ON 06/13/2024] methylPREDNISolone, 4 mg, oral, BID with meals Followed by [START ON 06/14/2024] methylPREDNISolone, 4 mg, oral, Daily with breakfast metoprolol tartrate, 12.5 mg, oral, BID NON FORMULARY, 30 mg, oral, TID polyetheylene glycol, 17 g, oral, Daily senna, 2 tablet, oral, Nightly sodium chloride, 10 mL, intravenous, BID tiZANidine, 2 mg, oral, Daily triamterene-hydroCHLOROthiazide, 1 capsule, oral, Daily valsartan, 320 mg, oral, Daily Continuous Infusions: sodium chloride, 75 mL/hr, Last Rate: 75 mL/hr (06/11/24 0330) PRN Meds:.PRN medications: bisacodyL, oxyCODONE, Insert peripheral IV AND Maintain IV access AND Saline lock IV AND sodium chloride AND sodium chloride, traZODone Sly Karimi MD PGY-1, Internal Medicine [address] [phone] Associated attestation - Rochelle Arreola MD - 06/17/2024 5:06 PM EST I was physically present for the evaluation and management service provided. I personally saw and examined the patient on rounds with my team today. Management was discussed with resident and I supervised the plan of care. I have reviewed and agree with the ulloa parts of the resident evaluation including: Subjective Information Objective findings on physical exam Impression and plan The patient is being seen by Neurosurgery, requires a CT myelogram prior to the OR later today. We have reached out to IR to coordinate this. Rochelle Arreola MD [facility] * Roberto Connor RN - 06/11/2024 4:31 AM EST Goals: pain, NPO for sx, safety Identify possible barriers to meeting goals/advancing plan of care: increased pain, change in neuroassessment Stability of the patient: Moderately Stable - Low risk of patient condition declining or worsening End of Shift Summary: Pt admitted to -7. NySx consult. NPO at midnight for possible sx intervention Postop day #9 status post redo thoracic decompression for partial resection of a spinal mass. This will be revised or redone. Possible mylogram as well. Pt medicated per AUG. Safety measures maintained and call [place] within reach. * Beatriz Schwarz RN - 06/11/2024 1:38 AM EST 06/11/24 0136 Precautions Precautions Fall risk Safe Environment Arm Bands On ID The Patient's Environment is Safe Yes Side Rails/Bed Safety 09/21 Fall Risk Interventions Hourly Visual Checks Eyes closed;Sleeping;In bed Mobility Repositioned Supine Virtual rounds: Patient appears to be sleeping in bed without any observable signs of discomfort ordistress. Respirations appears regular /unlabored. No safety concerns noted. Will continue virtual rounds overnight for routine safety checks. Will not announce nurse presence during rounds to ensureminimal disruption to patient's rest. Beatriz BUTTERFIELDN,RN. Virtual RN Virtual Monitoring Unit * Sukh Altamirano RN - 06/10/2024 7:55 PM EST Patient is alert, oriented x4. Denies any pain however has no sensation in RLE. Patient was a direct transfer from [facility]. Admission assessment completed, 2RN skin assessment completed. Patient connected to pulse-ox per orders. Patient is in bed, call [place] within reach. documented in this encounter H&P Notes * Laisha Robert MD - 06/10/2024 8:18 PM EST INTERNAL MEDICINE Admission History & Physical Note PCP: Solis Roman MD Date of Admission: 06/10/2024 SUBJECTIVE Chief Complaint: No chief complaint on file. History of Presenting Illness & ED Course: Ms. Montoya is a 68-year-old woman with PMHx of HTN, atrial flutter s/p ablation 2018, thoracic spinal stenosis who is a direct transfer from [facility] after having two thoracic decompression spinal surgeries for partial resection of spinal mass and is being admitted for further treatment by Dr. Hall from neurosurgery The patient reported that she had knee surgery about 4 years ago and after that she has been using a cane to ambulate and has been having imbalance that has been getting worse. She mentioned that chineduntly presented to neurosurgery clinic in the setting of neck pain where she had imaging that showed a spinal mass which was considered an urgent finding and the plan by Dr. Markham was to take her to the OR early for mass resection. Patient had surgery on 05/24/2024 where she had bilateral lower extremity weakness right more than left after the surgery and this was deemed to be due to ongoing cord compression from the mass so Dr. Markham took her back to the OR on 06/01. After the surgery, patient was still having worsening neurological deficits so the plan was to do a myelogram and transferred the patient [place] [facility] [place] by Dr. Hall. On note, She has a history of prior L2-3 decompression in [place] [address] Markham she is also had a prior lumbar discectomy L3-4 and L4-[address] Beebe in 2011 and subsequent L4 and S1 fusion in [place] with Dr. Cagle. On admission, BP 125/79, HR 51, RR 18, SO2 95% on RA, labs were significant for leukocytosis 12 Review of Systems: Review of Systems Respiratory: Negative for shortness of breath. Cardiovascular: Negative for chest pain. Gastrointestinal: Negative for abdominal distention and abdominal pain. Genitourinary: Positive for difficulty urinating. Musculoskeletal: Positive for neck pain. Neurological: Positive for weakness and numbness. Past Medical History: Past Medical History: Diagnosis Date Adverse effect of anesthesia several hrs after sx pt had Panic attack Anxiety Arthritis Hypertension Irregular heart beat Joint pain Lymphedema Macular degeneration Past Surgical History: Past Surgical History: Procedure Laterality Date ABLATION OF DYSRHYTHMIC FOCUS BACK SURGERY N/A s/p L2-3 decompression 09/13/[address] Markham, s/p lumbar discectomy Dr. Bales, L3-4, L4-[address] Yarbrough February 2012, subsequent L4-S1 fusion in [place] with Dr. Cagle. CARPAL TUNNEL RELEASE Right TONSILLECTOMY ADENOIDECTOMY, BILATERAL MYRINGOTOMY AND TUBES TOTAL HIP ARTHROPLASTY Left 2022 TOTAL KNEE ARTHROPLASTY Bilateral Family / Social History: Family History Problem Relation Name Age of Onset Other (HTN) Mother Uterine cancer Mother Prostate cancer Father Prostate cancer Brother Social History Socioeconomic History Marital status: Single Spouse name: Not on file Number of children: Not on file Years of education: Not on file Highest education level: Not on file Occupational History Not on file Tobacco Use Smoking status: Every Day Current packs/day: 0.50 Types: Cigarettes Passive exposure: Never Smokeless tobacco: Never Substance and Sexual Activity Alcohol use: Not Currently Comment: occasionally Drug use: Yes Types: Marijuana/Cannabis Comment: occasionally Sexual activity: Not Currently Other Topics Concern Not on file Social History Narrative Not on file Allergies: No Known Allergies Prior to Admission Medications: @HOMEMEDSNAMESONLY@ OBJECTIVE Vitals: Vitals: 06/10/24 1837 BP: 125/79 Pulse: 51 Resp: 18 Temp: 36.9 ??C (98.4 ??F) SpO2: 98% Physical Exam: Physical Exam Constitutional: General: She is not in acute distress. Appearance: She is not ill-appearing. HENT: Head: Atraumatic. Eyes: General: No scleral icterus. Cardiovascular: Rate and Rhythm: Bradycardia present. Pulses: Normal pulses. Pulmonary: Effort: No respiratory distress. Breath sounds: No wheezing or rhonchi. Abdominal: General: There is no distension. Palpations: There is no mass. Tenderness: There is no abdominal tenderness. Musculoskeletal: General: Swelling present. No tenderness. Skin: Coloration: Skin is not jaundiced. Neurological: Mental Status: She is alert and oriented to person, place, and time. Motor: Weakness present. Deep Tendon Reflexes: Reflexes abnormal. Comments: Motor exam: 0/5 strength in the RLE and LLE, ankle dorsiflexion was 5/5 but plantar flexion was 0/5 on the left leg Sensory: Complete loss of touch and vibration under the nipple on the right side (corresponding to T6 spinal level). Partial loss of touch on the left side Reflexes: +ve Babinski sign in bilateral lower extremities and absent reflexes in bilateral LL on my assessment Labs: @[id number](WBC,RBC,H,HCT,hemoglobin,hematocrit,MCV,MCH,MCHC,RDW,platelet,dennis trophils,lymphocytes ,monocytes,eosinophils,basophils,BUN,creatinine,na,k,cl,aux8pcqdspuu,glucrandom, calcium,phoshporus,mg,ptt,pt,inr,co2,troponin,bnp,ck,mb)@ @LASTLABHIDENODATAMSG([id number],FOLATE,TSH,TSHUR,TSHULTRASEN,RPRRAPIDPL,LYMEIGG IGM)@ @[facility]BGPRINTGROUP@ Microbiology: @[id number](SPECIMENTYP,URINECOLOR,CLARITYU,URINEGLUCOSE,URINEKETONES, SPECIFICGRAV,OCCULTB LOOD,URINEPH,PROTEINFL,NITRITE,LEUKOCYTEEST,URINEWBC,URINERBC,EPITHCELLS,BACTERI A,URINECOMMENT)@ @COULTURE@ Radiology: XR Abdomen 1 View Result Date: 06/08/2024 Narrative: HISTORY: The patient is a 68-year-old female with abdominal distention. FINDINGS: Supineradiographs of the abdomen, without previous for comparison, demonstrate that the patient has undergone previous posterior spinal fusion at L4-S1. The patient is seen to have undergone previous totalleft hip replacement surgery. A catheter is noted [...] No mass or radiopaque calculus is seen. Impression: Nonspecific nonobstructive bowel gas pattern. There are gas-filled nondilated loops of small bowel as well as moderate gaseous distention of the stomach. Code 62263 -------- FINAL REPORT -------- Dictated By: Ryan Schroeder Dictated Date: 06/08/2024 07:51 ET Assigned Physician: Ryan Schroeder Reviewed and Electronically Signed By: Ryan Schroeder Signed Date: 06/08/2024 07:53 ET Workstation ID: [id number] Transcribed By: Self Edit Transcribed Date: 06/08/2024 07:51 ET XR Spine 1 View Result Date: 06/01/2024 Narrative: Fluoroscopic spot radiographs obtained during thoracic spine surgery are submitted. No radiologist consultation was requested or provided during this procedure and there is no radiologist professional charge. This report is generated for documentation purposes only. The dose-area productfor this procedure was [id number] mGy*m2. PQRI CPT II G9500 -------- FINAL REPORT -------- Dictated By: Ryan Schroeder Dictated Date: 06/01/2024 10:11 ET Assigned Physician: Ryan Schroeder Reviewed and Electronically Signed By: Ryan Schroeder Signed Date: 06/01/2024 10:12 ET Workstation ID: [id number] By: Self Edit Transcribed Date: 06/01/2024 10:11 ET MR Thoracic Spine wo and w Contrast Result Date: 05/31/2024 Narrative: Exam: MRI of the thoracic spine with [...] with AP dimension of 3 mm seen onseries 10, image 10. Spinal cord immediately distal [...] through T10-11. No acute thoracic spine fractures. Impression: Impression: 1. Extra-axial lesion seen in the [...] or developing syrinx. No enhancement of the spinalcord. No intrinsic cord lesions. 2. Status post recent T6 and T7 laminectomies. Dorsal fluid collection within the laminectomy defect abuts the thecal sac ventrally and extends dorsally into the paraspinous soft tissues measuring 2.5 x 1.8 x 4.3 cm and may represent postoperative seroma, hematoma, abscess or pseudomeningocele. Additional fluid collection in the subcutaneous fat of the back in themidline measuring 1.3 x 2.4 x 6.9 cm may represent postoperative soft tissue seroma, hematoma or abscess. 3. 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 This document has been electronically signed by: Mishel Boo MD on 05/31/2024 19:27:41 XR Spine 1 View Result Date: 05/26/2024 Narrative: Findings: Digital spot images of the thoracic spine are submitted from the OR, used intraoperatively by Dr. Markham during a spine procedure. No radiologist was in attendance. Fluoroscopy was provided in the OR by a engineering technologist. Cumulative Air Kerma: 44.67 mGy Impression: Impression: 1. Intraoperative images of the thoracic spine. 2. Fluoroscopy provided in the OR. NC -------- FINAL REPORT -------- Dictated By: Michelle Thompson Dictated Date: 05/26/2024 10:34 ET Assigned Physician: Michelle Thompson Reviewed and Electronically Signed By: Michelle Thompson Signed Date: 05/26/2024 10:35 ET Workstation ID: [id number] Transcribed By: Self Edit TranscribedDate: 05/26/2024 10:[address] Thoracic Spine wo Contrast Result Date: 05/24/2024 Narrative: CT thoracic spine without contrast Comparison: None Findings: Recent postsurgical changes. Surgical drain with the tip at the level of T6 posteriorly. Right laminectomy at T6 and T7. Partially ossified density in the spinal canal of the level of T6 measuring 1.4 x 1.2 x 1.4 cm. Scatteredair throughout paraspinal soft tissues. Vertebral alignment is within normal limits. No listhesis. Multilevel degenerative disc disease. Bilateral lower lobe opacities favoring atelectasis. Left upper pole cysts. Adrenal adenomas. Impression: Postsurgical changes of right laminectomies at T6 and T7 with surgical drain tip at thelevel of T6 posteriorly. Scattered air throughout the paraspinal soft tissues. Partially ossified density in the spinal canal of the level of T6 measuring 1.4 x 1.2 x 1.4 cm. This document has been electronically signed by: Amilcar Daugherty MD on 05/24/2024 21:00:40 EKG & Most Recent Echo: @[facility] H[facility]ITALNTEKG(150W)@ @[facility]@ Medications: Scheduled Meds:acetaminophen, 1,000 mg, oral, q6h EDEN [START ON 06/11/2024] acetaminophen, 1,000 mg, oral, q6h EDEN dexAMETHasone, 4 mg, oral, q6h EDEN doxepin, 50 mg, oral, Nightly [START ON 06/11/2024] DULoxetine, 60 mg, oral, Daily [START ON 06/11/2024] famotidine, 20 mg, oral, Daily gabapentin, 800 mg, oral, q12h EDEN hydrALAZINE, 50 mg, oral, BID methylPREDNISolone, 4 mg, oral, With meals & nightly Followed by [START ON 06/11/2024] methylPREDNISolone, 4 mg, oral, TID with meals Followed by [START ON 06/13/2024] methylPREDNISolone, 4 mg, oral, BID with meals Followed by [START ON 06/14/2024] methylPREDNISolone, 4 mg, oral, Daily with breakfast metoprolol succinate, 25 mg, oral, Daily [START ON 06/11/2024] metoprolol tartrate, 25 mg, oral, Daily polyetheylene glycol, 17 g, oral, Daily senna, 2 tablet, oral, Nightly sodium chloride, 10 mL, intravenous, BID [START ON 06/11/2024] tiZANidine, 2 mg, oral, Daily [START ON 06/11/2024] triamterene-hydroCHLOROthiazide, 1 capsule, oral, Daily [START ON 06/11/2024] valsartan, 320 mg, oral, Daily Continuous Infusions:sodium chloride, 75 mL/hr PRN Meds:.PRN medications: oxyCODONE, saliva substitute, Insert peripheral IV AND Maintain IV access AND Saline lock IV AND sodium chloride AND sodium chloride, traZODone ASSESSMENT & PLAN Assessment: Ms. Montoya is a 68-year-old woman with PMHx of HTN, atrial flutter, thoracic spinal stenosis who is a direct transfer from [facility] after having two thoracic decompression spinal surgeries forpartial resection of spinal mass and is being admitted for further treatment by Dr. Hall from neurosurgery Thoracic spinal stenosis Spinal mass S/p two thoracic decompression surgeries Neurogenic bowel and bladder in the setting of spinal injury Patient is a direct transfer from [facility] after having two thoracic decompression spinal surgeries by Dr. Markham for partial resection of spinal mass that led to worsening bilateral (R > L) lower extremities neurological deficits. Biopsy from the mass showed bone, cartilage and fibroelastic tissue with degenerative changes. It's unclear if this was an adequate sample. Patient was transferred to [facility] because the plan was to get a myelogram prior to surgical exploration by Dr. Hall given that the patient has continued worsening BLL neurological deficits - NPO after midnight for possible surgery tomorrow - Holding pharmacological DVT prophylaxis for possible surgery - Neurosurgery following, appreciate recs - Continue Cymbalta 60 mg daily - Continue Gabapentin 800 mg twice daily - Continue Decadron 4 mg every 6 hours - Continue Tizanidine 2 mg daily - Continue varma catheter - Continue bowel regimen Lumbar spondylosis Cervical spondylolisthesis with central canal stenosis She has a history of prior L2-3 decompression [place] [address] Markham she is also had a prior lumbar discectomy L3-4 and L4-[address] Beebe in 2011 and [place] with Dr. Cagle per chart history. She's currently denying any back pain. For her cervical spondylolisthesis, plan is for ACDF in the future. Currently she doesn't have any upper extremitiesweakness or numbness and no neck pain Atrial flutter Hypertension Bradycardia Patient has hx of A flutter s/p ablation in 2018. She has been having HR 40-50s resolved after her beta-katty decreased probably in the setting of spinal injury. Her BP home meds include Valsartan 320 daily, Toprol XL 50 mg, Triamterene/hydrocholothiazide 37.5/25, hydralazine 50 BID . Per [facility] note, BP has been difficult to manage - Continue home meds but switch to metoprolol tartrate 12.5 mg BID - Can increase hydralazine to 75 mg BID if BP is not well controlled Anxiety Home meds include doxepin 100 mg, Trazodone 75 mg. At [facility], patient was drowsy so Doxepin dose wasdecreased to 50 mg nightly with improvement in drowsiness - Continue doxepin 50 mg nightly - Continue trazodone 75 mg nightly as needed Disposition: Acute level of care Code Status: No CPR/Do Not Intubate Emergency Contact: Primary Emergency Contact: CLARE SULLIVAN MD Department of Medicine PGY-[address] [phone] Pager: Tigertext preferred Associated attestation - Miguel Gustafson MD - 06/11/2024 12:37 AM EST I was physically present for the evaluation and management service provided. I personally saw and examined the patient. Management was discussed with resident Laisha Robert MD and I supervised the plan of care. I have reviewed and agree with the ulloa parts of the resident evaluation including: Subjective Information Objective findings on physical exam Impression and plan Yuly Montoya is a 68 y.o. female who presented for further care by neurosurgery. Past medical history is significant for hypertension, atrial flutter s/p ablation 2018, thoracic spine stenosis s/pthoracic spinal decompression surgery x 2. She had bilateral lower extremity weakness after surgeryon 05/24/2024, and had another surgery on 06/01/2024. Her neurological deficits have not been worsening, for which she needs myelogram. On examination, she is able to move her left toes slightly, and has significant motor weakness with inability to move the rest of her bilateral lower extremities, and has absence of sensation on the right side from T5-6 region and below. Problems Thoracic spinal stenosis, spinal mass, s/p 2 thoracic decompression surgeries Bilateral lower extremity weakness Neurogenic bladder in the setting of spinal injury Cervical spondylolisthesis with central canal stenosis Atrial flutter s/p ablation Hypertension Anxiety Plan CT thoracic spine with contrast Continue Cymbalta, gabapentin, tizanidine Dexamethasone 4 mg every 6 hours Varma catheter, bowel regimen N.p.o. after midnight for possible surgery tomorrow Monitor for tachycardia Metoprolol tartrate 12.5 mg twice daily Pharmacological DVT prophylaxis on hold for possible surgery Continue doxepin, trazodone Rest of the plan as outlined by housestaff documented in this encounter Procedure Notes * THEODORA Mendoza - 06/11/2024 8:42 PM ESTAssociated Order(s): Insert arterial line Post-Procedure Diagnose(s): Thoracic myelopathy; Hypotension after procedure Insert arterial line Date/Time: 06/11/2024 8:43 PM Performed by: THEODORA Mendoza Authorized by: THEODORA Mendoza Consent: Consent obtained: Verbal Consent given by: Patient Risks discussed: Bleeding, repeat procedure and pain [place] protocol: Imaging studies available: yes (bedside US) Site/side marked: yes (right) Immediately prior to procedure, a time out was called: yes (bedside timeout perfromed with CRISTIANA Guo) Patient identity confirmed: Arm band and verbally with patient (timeout identified patient and ) Indications: Indications: hemodynamic monitoring Pre-procedure details: Skin preparation: Chlorhexidine Sedation: Sedation type: None Anesthesia: Anesthesia method: Local infiltration Local anesthetic: Lidocaine 1% w/o epi (1cc) Procedure details: Location: R radial Needle gauge: 20 G Placement technique: Seldinger and ultrasound guided Number of attempts: 2 Post-procedure details: Procedure completion: Procedure terminated electively by provider Comments: Patient prepped and draped in usual sterile fashion. Right radial arterial line placement attemptedx2 with US guidance and Seldinger technique. Pulsatile [...] each failed attempt to ensure hemostasis. Signed: THEODORA Choi-Elisabet 06/11/24 8:50 PM EST * Ramirez Hall MD - 06/11/2024 2:25 PM EST T5-T8 fusion, T5-7 DECOMPRESSION THORACIC/T6-7 FACETECTOMY OPERATIVE NOTE Date: 06/10/2024 - 06/11/2024 Location: [facility] OR Name: Yuly Montoya, : 1955, Diagnosis Pre-op Diagnosis * Chronic bilateral thoracic back pain [M54.6, G89.29]T6/7 stenosis by large ventral extradural calcified mass Post-op Diagnosis * Chronic bilateral thoracic back pain [M54.6, G89.29]T6/7 stenosis by large ventral extradural calcified mass Procedures T5-8 pedicle screws with image guidance T5-8 posterolateral fusion T5-7 laminectomy T6/7 bilateral facetectomy with removal ventral calcified mass Allograft/autograft/image guidance/microscope/image guidance Surgeon(s) & [employer] Member(s) * Ramirez Hall MD - Primary Anesthesia: Anesthesia type not filed in the log. ASA: III Estimated Blood Loss: 300 mL Drains: Closed/Suction Drain Right;Other (Comment) Back Other (Comment) 10 Fr. (Active) Urethral Catheter Straight-tip 16 Fr. (Active) Site Assessment Clean;Skin intact 06/11/24 1335 Collection Container Standard drainage bag 06/11/24 1335 Securement Method Securing device (Describe) 06/11/24 1335 Reason for Continuing Urinary Catheterization Prolonged immobilization (potentially unstable thoracic or lumbar spine, multiple traumatic injuries such as pelvic fractures) 06/11/24 1335 Specimen: calcified mass Specimens ID Source Type Tests Collected By Collected At Frozen? Priority Lab ID 1 Spine, Thoracic Tissue TISSUE EXAM Ramirez Hall MD 06/11/24 4:37 PM No Description: EPIDURAL CALCIFICATION Procedure Details: Procedure in detail: Indications: Yuly Montoya is a 68 y.o. with T6/7 stenosis by large ventral extradural calcified mass, 2 prior laminectomies, profound weakness in LE's After informed consent was obtained, the patient was brought to the operating room. The patient underwent successful intubation. After adequate analgesia, the patient had application of neural monitoring leads, preop medications including abx and steroids were administered. Instruction was given toanesthesia to maintain MAPs above 85 mm Hg, The pt was positioned in the prone position, arms were supported on arm rest holders and positioned in the ???superman?? position without excessive abduction of the shoulders and flexion at the elbows, axillary rolls were placed, all bony prominences were padded, eyes and genitalia were checked to ensure they were not under pressure, thoracolumbar areawas prepped broadly with rub-on betadine and rub- on alcohol, planned incision extended a level above and below the level of the stenosis seen on sagittal MR images, formal chlorhexidine prep was performed twice, operative area was draped. Incision line was infiltrated with local anesthetic. Formaltime-out was performed. Prior midline incision was opened and extended rostrally to T5 and caudally to T10.? Dissection wasextended through the subcutaneous tissue to the fascia. The fascia was?incised in line with the incision. The paraspinal muscles were?dissected exposing the laminae/facets and transverse processes ofT5-10. Reference frame was attached to the T10 spinous process, AIRO spin was done, accuracy was verified, using image guidance to define the ideal trajectory and entry point pedicle screws were inserted at T5-8 bilatarally. Once? the pedicle screws were in place, the microscope was draped and brought into the sterile field, under the microscope residual T6 and T7 laminectomies as well as caudal T 5 laminectomies were done, bone was harvested for local morselized autograft. A complete facetectomy was performed of?the T6/7 facets bilaterally. The T6 nerve roots were identified bilaterally and clipped, on the left there was a small dural tear which was covered with Duragen/Teseel.?Large ventral extra-dural mass was removed in piecemeal fashion using down curets as best possible. After adequate decompression, final rods of appropriate length and size? were placed bilaterally. Set screws? were placed and torque tightened appropriately. The?wound was thoroughly irrigated. All bony surfaces were? decorticated.?? Facetectomies were performed. A combination of demineralized ?bone matrix, mors elized autograft bone and crushed cancellous bone graft were placed into? posterior lateral guttersextending from T5-8 to complete the posterolateral fusion. The fascia ?was closed. A subcutaneous drain was placed, cut to length and tunneled out. The? subcutaneous tissue was closed with interrupted Vicryl and the skin was closed with ronald. Sterile dressing was applied. The ?patient was then turned supine and transferred to the recovery? room in stable condition.? Findings: T6/7 stenosis by large ventral extradural calcified mass Complications: dural tear Disposition: ICU - extubated and stable. Reason for ICU tfer is to keep MAP's >85 mmHg, although she does not have joão hypotension Condition: stable * Ramirez Hall MD - 06/11/2024 2:25 PM EST Date: 06/10/2024 - 06/11/2024 Location: [facility] OR Name: Yuly Montoya, : 1955, Diagnosis Pre-op Diagnosis * Chronic bilateral thoracic back pain [M54.6, G89.29] T6/7 stenosis by large ventral extradural calcified mass Post-op Diagnosis * Chronic bilateral thoracic back pain [M54.6, G89.29]T6/7 stenosis by large ventral extradural calcified mass Procedures * T5-T8 fusion * T5-7 DECOMPRESSION THORACIC/T6-7 FACETECTOMY Removal large ventral extradural calcified mass Additional Procedures 44877 - NM VERT CORPECTOMY LATERAL EXTRACAVITARY APPR W DECMPR THOR SGL SEG 51225 - NM INSTRUMENTATION POSTERIOR SEGMENTAL 3 TO 6 VERTEBRAL SEGMENTS 16241 - NM MICROSURGICAL TECHNIQUES REQUIRING USE OF OPERATING MICROSCOPE 32066 - NM STEREOTACTIC COMPUTER ASSISTED PROCEDURE SPINAL 38193 - NM ALLOGRAFT MORSELIZED/PLACEMENT OSTEOPROMOTIVE MAT SPINE SURGERY ONLY Indications: Yuly Montoya is a 68 y.o. female with T6/7 stenosis by large ventral extradural calcified mass, 2 prior laminectomies, profound LE weakness Surgeon(s) & [employer] Member(s) * Ramirez Hall MD - Primary No surgical staff documented. Staff Etiquette Coach: Laura Edge, CRISTIANA; Alessandra Wong RN Geodesist: Matias Li Scrub: Yue Durham Scrub Person: Efrem Varela Anesthesia: general ASA: III Estimated Blood Loss: 300 mL Drains: Closed/Suction Drain Right;Other (Comment) Back Other (Comment) 10 Fr. (Active) Urethral Catheter Straight-tip 16 Fr. (Active) Site Assessment Clean;Skin intact 06/11/24 1335 Collection Container Standard drainage bag 06/11/241334 Securement Method Securing device (Describe) 06/11/241334 Reason for Continuing Urinary Catheterization Prolonged immobilization (potentially unstable thoracic or lumbar spine, multiple traumatic injuries such as pelvic fractures) 06/11/241334 Specimen: calcified mass Specimens ID Source Type Tests Collected By Collected At Frozen? Priority Lab ID 1 Spine, Thoracic Tissue TISSUE EXAM Ramirez Hall MD 06/11/24 4:37 PM No Description: EPIDURAL CALCIFICATION Findings: T6/7 stenosis by large ventral extradural calcified mass Complications: dural tear Disposition: ICU - extubated and stable. Condition: stable documented in this encounter Consult Notes * Sameer Davenport MD - 06/22/2024 2:00 PM ESTAssociated Order(s): IP CONSULT TO PHYSICAL MEDICINE REHAB PM&R Consult Date: June 22, 2024 Reason for Consult: SCI Referring physician: Ramirez Hall MD Chief Complaint: Weakness in the lower extremities History: Yuly is 68-year-old female past medical history including hypertension, atrial flutter status post ablation in 2018, thoracic spinal stenosis who was admitted from [facility] after having 2 thoracic decompression spine surgeries for partial resection of spinal mass and was admitted to neurosurgical evaluation of persistent weakness in the lower extremity gait disturbance. The patient ultimately underwent T5-T7 decompression, T6-T7 facetectomy and T5-T8 fusion by neurosurgery on 06/11/2024. Postoperatively required a short stay in ICU, hospital course notable for neurogenic bladder for which patient has a indwelling Varma catheter. Patient also has been seen by psychiatry formedication management for depressive disorder and anxiety has been placed on trazodone and doxepin which patient has shown progress. Physical medicine and rehabilitation is consulted for evaluation of rehabilitation needs. I saw evaluated patient at bedside. She reports to me that she is eager to return to rehab and aggressively improve from a functional standpoint. She still continues to endorse weakness in the lower extremities unable to move most of the lower extremity except for the left foot. She endorses loss of sensation from the chest down. She endorses no sensation around the perianal region. She has had indwelling dwelling Varma she denies any chest pain or shortness of breath at this time. Hospital course: Social/Functional history: Lives alone in a 3 level condo premorbidly was independent for mobility. Current Functional Status: Moderate to maximal assistance for sitting balance, maximal assistance for lower body dressing Family History Problem Relation Name Age of Onset Other (HTN) Mother Uterine cancer Mother Prostate cancer Father Prostate cancer Brother Social History Tobacco Use Smoking status: Every Day Current packs/day: 0.50 Types: Cigarettes Passive exposure: Never Smokeless tobacco: Never Substance Use Topics Alcohol use: Not Currently Comment: occasionally Drug use: Yes Types: Marijuana/Cannabis Comment: occasionally Past Medical History: Diagnosis Date Adverse effect [...] Yarbrough February 2012, subsequent L4-S1 fusion in [place] with Dr. Cagle. CARPAL TUNNEL RELEASE Right TONSILLECTOMY ADENOIDECTOMY, BILATERAL MYRINGOTOMY AND TUBES TOTAL HIP ARTHROPLASTY Left 2022 TOTAL KNEE ARTHROPLASTY Bilateral Outpatient Medications Marked as Taking for the 06/10/24 encounter (Hospital Encounter) Medication Sig Dispense Refill acetaminophen (TYLENOL) 325 mg tablet Take 2 tablets (650 mg total) by mouth every 6 (six) hours ifneeded for mild pain, moderate pain or headaches for up to 10 days. ALPRAZolam (XANAX) 0.5 mg tablet Take 1 tablet (0.5 mg total) by mouth at bedtime as needed for anxiety. Max Daily Amount: 0.5 mg cevimeline (EVOXAC) 30 mg capsule Take 1 capsule (30 mg total) by mouth 3 (three) times a day. 60 capsule 0 doxepin (SINEquan) 100 mg capsule Take 1 [...] days. hydrALAZINE (APRESOLINE) 50 mg tablet Take 1 tablet (50 mg total) by mouth 2 (two) times a day. metoprolol tartrate (LOPRESSOR) 25 mg tablet Take [...] mg, 650 mg, oral, q6h PRN, THEODORA Pettit, 650 mg at 06/22/24 0352 ALPRAZolam (XANAX) tablet 0.5 mg, 0.5 mg, oral, Nightly PRN, Janay Enriquez MD, 0.5 mg at 06/21/242153 bisacodyL (DULCOLAX) suppository 10 mg, 10 mg, rectal, Daily PRN, Ekta Nieto MD, 10 mg at 06/15/24 151 cevimeline (EVOXAC) capsule 30 mg, 30 mg, oral, TID, Laisha Robert MD, 30 mg at 06/22/24 0845 dexAMETHasone (DECADRON) injection 4 mg, 4 mg, intravenous, q6h EDEN, THEODORA Anaya, 4 mg at 06/22/24843 dextrose (D50W) 50% injection 12.5 g, 12.5 g, intravenous, q15 min PRN, THEODORA Anaya dextrose (D50W) 50% injection 25 g, 25 g, intravenous, q15 min PRN, THEODORA Anaya dextrose 15 gram/60 mL oral solution 15 g, 15 g, oral, q15 min PRN, THEODORA Anaya dextrose 15 gram/60 mL oral solution 30 g, 30 g, oral, q15 min PRN, THEODORA Anaya docusate sodium (COLACE) capsule 100 mg, 100 mg, oral, BID, THEODORA Jimenez, 100 mg at 06/17/24 0925 doxepin (SINEquan) capsule 100 mg, 100 mg, oral, Nightly, THEODORA Massey, 100 mg at 06/21/242153 DULoxetine (CYMBALTA) DR capsule 60 mg, 60 mg, oral, Daily, Laisha Robert MD, 60 mg at 06/22/24843 famotidine (PEPCID) tablet 20 mg, 20 mg, oral, Daily, Laisha Robert MD, 20 mg at 06/22/24843 gabapentin (NEURONTIN) capsule 500 mg, 500 mg, oral, q8h, Edgar Valencia DO, 500 mg at 06/22/24843 Glucagon HCl (rDNA) injection 1 mg, 1 mg, intramuscular, Once PRN, THEODORA Anaya heparin (UFH) injection 5,000 Units, 5,000 Units, subcutaneous, q8h EDEN, THEODORA Fung, 5,000 Units at 06/22/24 0844 hydrALAZINE (APRESOLINE) injection 10 mg, 10 mg, intravenous, q4h PRN, THEODORA Ortiz, 10 mg at 06/17/24 0624 hydrALAZINE (APRESOLINE) tablet 75 mg, 75 mg, oral, BID, THEODORA Pettit, 75 mg at 06/22/24 0844 insulin lispro injection 1-6 Units, 1-6 Units, subcutaneous, TID AC, THEODORA Anaya oxyCODONE (ROXICODONE) immediate release tablet 10 mg, 10 mg, oral, q6h PRN, THEODORA Jimenez, 10 mg at 06/21/24 1336 oxyCODONE (ROXICODONE) immediate release tablet 5 mg, 5 mg, oral, q6h PRN, THEODORA Jimenez, 5 mg at 06/17/24 2226 polyethylene glycol (MIRALAX) packet 17 g, 17 g, oral, Daily, Laisha Robert MD, 17 g at 839 senna (SENOKOT) tablet 17.2 mg, 2 tablet, oral, BID, THEODORA Jimenez, 17.2 mg at 06/17/24 0924 Insert peripheral IV, , , Once AND Maintain IV access, , , Until discontinued AND Saline lock IV, , , Once AND sodium chloride 0.9 % flush 10 mL, 10 mL, intravenous, BID, 10 mL at 06/22/24 0950 AND sodium chloride 0.9 % flush 10 mL, 10 mL, intravenous, PRN, Bridgett Renner MD tiZANidine (ZANAFLEX) tablet 2 mg, 2 mg, oral, Daily, Laisha Robert MD, 2 mg at 06/22/24 0844 traZODone (DESYREL) tablet 100 mg, 100 mg, oral, Nightly, THEODORA Massey, 100 mg at 06/21/24 215 triamterene-hydroCHLOROthiazide (DYAZIDE) 37.5-25 mg per capsule 1 capsule, 1 capsule, oral, Daily,THEODORA Ortiz, 1 capsule at 06/22/24 0843 valsartan (DIOVAN) tablet 320 mg, 320 mg, oral, Daily, THEODORA Fung, 320 mg at 844 ROS: 14 point system review is as per history of present illness otherwise negative. PE Vitals: 06/21/24 1416 06/21/24 1734 06/21/24 2154 06/22/24 0455 BP: 110/69 120/73 133/74 (!) 154/80 BP Location: Right arm Patient Position: Sitting Pulse: 60 61 53 Resp: 16 18 18 Temp: 36.9 ??C (98.4 ??F) 37.7 ??C (99.9 ??F) 36.4 ??C (97.5 ??F) TempSrc: Oral Oral Oral SpO2: 96% 97% 98% Weight: Height: General: NAD, pleasant Eyes : Gross visual acuity is intact. HENT: Symmetric facies, good dentition. Hearing is intact. Cardiovascular: S1-S2, good capillary refill time, distal pulses are palpable Pulm: Respirations even unlabored no accessory muscle use, No wheezing GI: Positive bowel sounds, soft abdomen and nontender MSK: No muscle atrophy, range of motion is full Neuro: Alert oriented to place, time and purpose. . Speech is fluent and intelligible. Attention and concentration are intact. CN: 2 through 12 is grossly intact MMT: Bilateral upper extremity 5/5, right hip flexion 0-1/5, right ankle dorsiflexion 0/5, left hipflexion 0/5, left ankle dorsiflexion to minus/5. Sensation to light touch is absent from the chest. : Varma in place Psych:Appropriate affect and insight Skin: No active rashes Hem -Onc: No overt bleeding Lab Results Component Value Date GLUCOSE 148 06/22/2024 CALCIUM 8.3 (L) 06/15/2024 NA 134 (L) 06/15/2024 K 4.2 06/15/2024 CO2 30 06/15/2024 CL 99 06/15/2024 BUN 16 06/15/2024 CREATININE 0.60 06/15/2024 Lab Results Component Value Date WBC 13.9 (H) 06/21/2024 HGB 12.4 (L) 06/21/2024 HCT 36.9 (L) 06/21/2024 MCV 89.6 06/21/2024 PLT 359 06/21/2024 CT thoracic spine without contrast 06/14/2024 personally reviewed images and report IMPRESSION: Posterior decompression and fusion with drain present. No fluid collection. If further evaluation is indicated consider MRI. Left thyroid lobe nodule can be followed up with ultrasound. Bilateral pleural effusions. Impression: Yuly is 68-year-old female past medical history including hypertension, atrial flutter status post ablation in 2018, thoracic spinal stenosis who was admitted from [facility] afterhaving 2 thoracic decompression spine surgeries for partial resection of spinal mass and was admitted to neurosurgical evaluation of persistent weakness in the lower extremity gait disturbance. The patient ultimately underwent T5-T7 decompression, T6-T7 facetectomy and T5-T8 fusion by neurosurgery on 06/11/2024. Postoperatively required a short stay in ICU, hospital course notable for neurogenic bladder for which patient has a indwelling Varma catheter. 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 She needs physiatry follow-up to address neurogenic bladderand bowel. Aggressive bowel regiment DC Varma for trial void when able, catheterization program with bladder surveillance as appropriate. DVT prophylaxis. Neurosurgery Thank you for allowing us participate in this patient's care. * Gretel Ríos NP - 06/21/2024 10:28 AM EST 68 year old single, retired female with a reported pmhx that includes HTN, a- flutter, thoracic spinal stenosis who was initially admitted on 06/10/2024 as a direct transfer from [facility] after having thoracic decompression spinal surgery for partial resection of spinal mass and presented withworsening neurological deficit (underwent T5-T8 fusion, T5-7 decompression thoracic/T6-7 facetectomy surgery on 06/11/2024 by neurosurgery). Patient was in the surgical ICU. Postop, the patient required pressor support for 3 days and eventually came off on 06/13/2024. The pt is seen for follow up. She is observed awake and resting in bed. She is oriented to person, place, time and situation. Speech is clear, eye contact is appropriate. She states I'm doing so much better and I'm ready to work hard (at rehab). She states she would like to be closer to [place] but will go wherever she is sent. She states she has been sleeping better and her mood is much better than previously. Mood and affect are wnl, pleasant, appropriate. Insight and judgment are fair. MENTAL STATUS EXAM: Appearance: age appropriate Behavior: normal Speech: clear, normal rate and rhythm Mood: normal Affect: congruent with mood, pleasant Thought Process: goal directed Thought Content: denies suicidal/homicidal thoughts, denies intent/plan. Denies AVH. Cognition: oriented to person, place, time and circumstances Impulse control: fair Insight: fair Judgment: fair Assessment and Plan: Depressive disorder Anxiety disorder Disposition: Recommend continue doxepin 100 mg po qhs for depression/anxiety. Recommend continue trazodone 100 mg po qhs to target insomnia. Pt states she normally takes her medications at 8pm along with her nightly dose of hctz. She is requesting she receive her nightly medications at 8pm. Pt may benefit from a prn daily dose of ativan 0.5mg for severe anxiety. No further medication recommendations at this time. The pt is not deemed to be an imminent danger to self or others at this time and is psychiatricallycleared. Please re-consult if needed. Gretel Ríos APRN Psychiatry Consultation-[employer] [facility] [employer] Weekend and after-hours, call button machine operator for On-Call clinician. Time spent on this encounter 55 minutes, with more than 50% time spent in coordinating care and counseling. * Gretel Ríos NP - 06/18/2024 10:04 AM ESTAssociated Order(s): IP CONSULT TO PSYCHIATRY Attending Provider: Ramirez Hall MD PCP: Solis Roman MD REQUESTED BY: THEODORA Correa REASON FOR CONSULT: Patient struggling with feelings of anxiety with her current clinical situation. Was started on Atarax per medicine team, but would appreciate further input. HPI: This is a 68 year old single, retired female with a reported pmhx that includes HTN, a-flutter, thoracic spinal stenosis who was initially admitted on 06/10/2024 as a direct transfer from [facility] after having thoracic decompression spinal surgery for partial resection of spinal mass and presented with worsening neurological deficit (underwent T5-T8 fusion, T5-7 decompression thoracic/T6-7 facetectomy surgery on 06/11/2024 by neurosurgery). Patient was in the surgical ICU. Postop, the patient required pressor support for 3 days and eventually came off on 06/13/2024. Upon assessment today the pt is observed resting in bed awake, alert and oriented. She is somewhat tearful and states she has not slept in three nights. She states she was given atarax but feels the medication makes her shaky inside . She states last night I was unable to sleep at all. She states she is single and lives in [place], [place] with her dog. She states she has a sister who lives nearbyand is supportive. She states she has decreased sensation in her leg and difficulty moving/walking and feels I've lost myself. I'm not a whole person anymore . She does endorse some passive suicidalthoughts but denies intent and/or means to attempt self-harm. She denies any history of suicide atte mpts or any history of psychiatric inpatient admissions. She is able to contract for safety. She states that years ago while she was being treated for chronic pain she did have a psychiatrist but sheis not currently followed by a mental health provider. The pt states she has had three back surgeries and has not seen any improvement and relates this toher current mood. She does state that she is going to go to rehab once medically cleared and she ishopeful and looking forward to rehab. She states she smokes approximately five cigarettes daily usually in the morning and occasionally vapes marijuana. She denies any other substance use. She states she was previously taking doxepin 300 mg at night along with trazodone 75 mg at night and did very well with that medication regimen. She states she was doing well so she and her provider began to decrease the doxepin. She states she would prefer to go up on the doxepin as she was doing well withthe medication and does not feel well taking atarax. REVIEW OF SYSTEMS: Behav / Psychiatric: Some chronic, passive suicidal thoughts, denies intent, plan or means. Negative for aggressive behavior, hallucinations, homicidal thoughts or paranoia. PAST PSYCHIATRIC MEDICAL AND SURGICAL HISTORY: Past Medical History: Diagnosis Date Adverse [...] Yarbrough February 2012, subsequent L4-S1 fusion in [place] with Dr. Cagle. CARPAL TUNNEL RELEASE Right TONSILLECTOMY ADENOIDECTOMY, BILATERAL MYRINGOTOMY AND TUBES TOTAL HIP ARTHROPLASTY Left 2022 TOTAL KNEE ARTHROPLASTY Bilateral Prior to Admission medications Medication Sig Start Date End Date Taking? Authorizing Provider cevimeline (EVOXAC) 30 mg capsule Take 1 capsule (30 mg total) by mouth 3 (three) times a day. 05/30/24 Yes THEODORA Inman doxepin (SINEquan) 100 mg capsule Take 1 capsule (100 mg total) by mouth at bedtime. at bedtime 05/03/24 Yes Historical Provider, DULoxetine (CYMBALTA) [address] capsule Take 1 capsule (60 mg total) by mouth 1 (one) time each day.02/11/24 Yes Historical Provider, famotidine (PEPCID) 20 mg tablet Take 1 tablet (20 mg total) by mouth 1 (one) time each day. 05/31/24 05/31/25 Yes THEODORA Inman gabapentin (NEURONTIN) 800 mg tablet Take 1 tablet (800 mg total) by mouth 2 (two) times a day. YesHistorical Provider, hydrALAZINE (APRESOLINE) 50 mg tablet Take 1 tablet (50 mg total) by mouth 2 (two) times a day. 05/31/24 Yes Historical Provider, metoprolol tartrate (LOPRESSOR) 25 mg tablet Take 1 tablet (25 mg total) by mouth 1 (one) time eachday. 11/13/13 Yes Historical Provider, senna-docusate (PERICOLACE) 8.6-50 mg per tablet Take 1 tablet by mouth at bedtime. 05/25/24 05/25/25Yes THEODORA King tiZANidine (ZANAFLEX) 2 mg tablet Take 1 tablet (2 mg total) by mouth 1 (one) time each day. Yes Historical Provider, traZODone (DESYREL) 50 mg tablet Take 1.5 tablets (75 mg total) by mouth at bedtime. 04/26/24 Yes Historical Provider, triamterene-hydroCHLOROthiazide (DYAZIDE) 37.5-25 mg per capsule Take 1 capsule by mouth 1 (one) time each day. Yes Historical Provider, valsartan (DIOVAN) 320 mg tablet Take 1 tablet (320 mg total) by mouth 1 (one) time each day. 03/22/24 Yes Historical Provider, No Known Allergies Immunization History Administered Date(s) Administered Influenza, Unspecified 04/19/2021, 04/08/2022, 03/16/2023 Moderna SARS-CoV-2 COVID-19, mRNA, LNP-S, preservative free 08/22/2020, 09/19/2020, 04/08/2022 Pfizer SARS-CoV-2 COVID-19, mRNA, LNP-S, preservative free 04/19/2021, 04/11/2023 Zoster Live 06/23/2020, 11/18/2021 Social History Socioeconomic History Marital status: Single Spouse name: Not on file Number of children: Not on file Years of education: Not on file Highest education level: Not on file Occupational History Not on file Tobacco Use Smoking status: Every Day Current packs/day: 0.50 Types: Cigarettes Passive exposure: Never Smokeless tobacco: Never Substance and Sexual Activity Alcohol use: Not Currently Comment: occasionally Drug use: Yes Types: Marijuana/Cannabis Comment: occasionally Sexual activity: Not Currently Other Topics Concern Not on file Social History Narrative Not on file Family History Problem Relation Name Age of Onset Other (HTN) Mother Uterine cancer Mother Prostate cancer Father Prostate cancer Brother BP: 155/82 (06/18 443) Heart Rate: 63 (06/18 443) Temp: 36.6 ??C (97.9 ??F) (06/18 443) Temp Source: Oral (06/18 443) SpO2: 96 % (06/18 443) MENTAL STATUS EXAM: Appearance: age appropriate Behavior: Tearful at times Speech: clear, normal rate and rhythm Mood: depressed, anxious Affect: congruent with mood Thought Process: goal directed Thought Content: some chronic, passive suicidal thoughts, denies intent/plan/means. Denies AVH. Cognition: oriented to person, place, time and circumstances Impulse control: fair Insight: fair Judgment: fair RESULTS: Labs: Lab Results Component Value Date WBC 10.0 06/15/2024 HGB 10.7 (L) 06/15/2024 HCT 31.4 (L) 06/15/2024 PLT 224 06/15/2024 ALT 20 06/08/2024 AST 10 06/08/2024 NA 134 (L) 06/15/2024 K 4.2 06/15/2024 CL 99 06/15/2024 CREATININE 0.60 06/15/2024 BUN 16 06/15/2024 CO2 30 06/15/2024 ASSESSMENT/PLAN: Current problem list Patient Active Problem List Diagnosis Lumbar spondylosis Onychomycosis Pain in toe Sacroiliitis (CMS/HCC) Spondylolisthesis Cervical spondylosis Spinal stenosis of thoracic region Thoracic spinal stenosis Age-related macular degeneration Anxiety Atrial flutter (CMS/HCC) Obstructive sleep apnea syndrome Deep vein thrombosis (DVT) of lower extremity (CMS/HCC) History of artificial joint Hypertension Osteoarthritis of hip Peripheral venous insufficiency S/P tonsillectomy and adenoidectomy Bradycardia Thoracic myelopathy Assessment and Plan: Depressive disorder Anxiety disorder DVT Prophylaxis: Per medical team Code Status: No CPR/Do Not Intubate Disposition: Recommend discontinue atarax as the pt states it makes her feel shaky inside. Recommend increasing doxepin back up to 100 mg po qhs for depression/anxiety. Pt may need further tapering up and states she previously did well with a higher dose of doxepin. Also recommend increasing trazodone to 100 mg po qhs to target symptoms. Pt states she normally takes her medications at 8pm along with her nightly dose of hctz. She is requesting she receive her nightly medications at 8pm. Pt may benefit from a prn daily dose of ativan 0.5mg for severe anxiety. We discussed the potentialfor abuse with this medication and the pt verbalized understanding of the same. No further medication recommendations at this time. Psychiatry to follow. 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 Time spent on this encounter 55 minutes, with more than 50% time spent in coordinating care and counseling. * Sukh Barba - 06/18/2024 9:46 AM EST SPIRITUAL CONSULT Date/Time:06/18/24 at 9:47 AM EST Type of Visit:Referral Reason for Visit: Spiritual/Emotional Support. PA ordered Spiritual Consult. Time Spent: 40 Minutes Location: 7729/7729-1 Sacramental Encounters: Sacrament of Sick-Anointing: Patient requested anointing Spiritual Distress Assessment: Spiritual Distress Assessment at beginning of visit Meaning - Overall Life Balance: Evidence of severe unmet spiritual need Transcendence: Evidence of severe unmet spiritual need Values - Acknowledgement: Evidence of severe unmet spiritual need Values - Control: Evidence of severe unmet spiritual need Psycho-Social Identity: Evidence of severe unmet spiritual need SDAT Beginning of Visit Average Score: 3 Spiritual Distress Assessment at end of visit Meaning - Overall Life Balance: Substantial evidence of unmet spiritual need Transcendence: Evidence of severe unmet spiritual need Values - Acknowledgement: Evidence of severe unmet spiritual need Values - Control: Evidence of severe unmet spiritual need Psycho-Social Identity: Substantial evidence of unmet spiritual need SDAT End of Visit Average Score: 2.6 Spiritual Assessment/Distress Spiritual Care Assessment: Assessment: PA ordered Spiritual Consult. Patient in emotional and spiritual distress Patient's debbi has been in decline since May 24, and she does not feel that she is progressing towards healing. Patient is despairing and admittedly without much reason to live for. She uses words like useless, lost, and a car crash to describe her current mental state. She added that is doubting how much more resilience she has. All this has caused patient's mood to change in interaction with others. Shedoes not like who she is becoming. Contributing to patient's emotions is a lack of sleep. She notedthat she has not slept for three days now. Patient appears to be physically exhausted. Patient is losing her will to live. She asked supervisor riveting to check her code status. She is no CPR & DNI. She iscomfortable with her code status. 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 She uses words succinctly and with power to share her feelings. Underlying what patient is currently experiencing emotionally, is a caring and sensitive person. She is supported by her sister (visiting later today) and many friends. She repotted that she belongs to a large social group. Intervention: NE Spiritual Care Interventions : focus on the present, encouraged self-care, provided anxiety containment, provided support, explored emotional needs and resources, explored hope, facilitate life review, cultivated a relationship of care and support, listened empathically, and provided prayer. [place] Mixer makes referral to [facility] to bring sacraments of the faith to patient. Outcomes: By the end of visit, patient was less tearful. She was uses self-deprecating humor to gain control of her feelings. She was deeply appreciative for supervisor riveting's visit and interventions. Plan of Care: [facility] to bring patient Holy Communion & Sacrament of the Sick to patient. *Reference: Spiritual Distress Assessment Tool: The SD AT is a clinical tool used by chaplains to identify unmet spiritual and emotional needs thatcan impact Goals of Care in the following categories: s Assessment Legend Spiritual Needs Related Questions Meaning Are you having difficulties coping with what is happening to your now? Does your hospitalization have any repercussions on the way you live usually? Transcendence Do you have a particular shinto, kalpesh, or spirituality? Is your shinto/spirituality/kalpesh challenged by what is happening to you now? Values Do you think that the health professionals caring for you know you well enough? Do you feel that you are participating in the decisions made about your care? Psycho-Social Identity Do you have any worries or difficulties regarding your family or other persons close to you? Do you feel lonely? Do you have links to your kalpesh community? SCALE 0= no evidence of unmet spiritual needs 1= some evidence of unmet spiritual needs 2= substantial evidence of unmet spiritual needs 3= evidence of severe unmet spiritual needs * Shira Riley MD - 06/17/2024 8:36 AM ESTAssociated Order(s): IP CONSULT TO HOSPITALIST Admitting MD: Shira Riley MD PCP: Solis Roman MD Name: Yuly Montoya No chief complaint on file. HPI: Ms. Yuly Montoya is a 68 y.o.female with past medical history of hypertension, history of aflutter, thoracic spinal stenosis who initially admitted on 06/10/2024 as a direct transfer from [facility] after having to thoracic decompression spinal surgery for partial resection of spinal mass presented with worsening neurological deficit and underwent T5-T8 fusion, T5-7 decompression thoracic/T6-7 facetectomy surgery on 06/11/2024 by neurosurgery. Patient was in the surgical ICU. Postop, the patient required pressor support for 3 days and eventually came off on 06/13/2024. And she was started on her home antihypertensive medication and the reduced doses. Hospitalist team was consulted for management of hypertension. On my evaluation, she was hemodynamically stable with blood pressure of 134/82, heart rate of 62, respiratory rate of 18. She reported that she still have reduced sensation on the left leg and difficulty in moving her legs but however it is slowly progressing. She was very tearful on my evaluation due to overall situation. Review of system otherwise unremarkable. She reports smoking cigarette in the morning with coffee at home and occasionally drinks alcohol once a week. Denies any other recreational drugs. Past medical/Past surgical history: Past Medical History: Diagnosis Date Adverse effect [...] [place] February 2012, subsequent L4-S1 fusion in [place] with Dr. Cagle. CARPAL TUNNEL RELEASE Right TONSILLECTOMY ADENOIDECTOMY, BILATERAL MYRINGOTOMY AND TUBES TOTAL HIP ARTHROPLASTY Left 2022 TOTAL KNEE ARTHROPLASTY Bilateral ROS: 14 point review of systems otherwise negative except as stated in the HPI. Medications: No current facility-administered medications on file prior to encounter. Current Outpatient Medications on File Prior to Encounter Medication Sig Dispense Refill cevimeline (EVOXAC) 30 mg capsule Take 1 capsule (30 mg total) by mouth 3 (three) times a day. 60 capsule 0 doxepin (SINEquan) 100 mg capsule Take 1 [...] by mouth 2 (two) times a day. hydrALAZINE (APRESOLINE) 50 mg tablet Take 1 tablet (50 mg total) by mouth 2 (two) times a day. metoprolol tartrate (LOPRESSOR) 25 mg tablet Take 1 tablet (25 mg total) by mouth 1 (one) time eachday. senna-docusate (PERICOLACE) 8.6-50 mg per tablet Take [...] tablet 650 mg, 650 mg, oral, q6h EDEN, Alice Rice, TAMMI, 650 mg at 06/16/242114 bisacodyL (DULCOLAX) suppository 10 mg, 10 mg, rectal, Daily PRN, Ekta Nieto MD, 10 mg at 06/15/24 151 cevimeline (EVOXAC) capsule 30 mg, 30 mg, oral, TID, Laisha Robert MD, 30 mg at 06/16/24 2100 dexAMETHasone (DECADRON) injection 4 mg, 4 mg, intravenous, q6h EDEN, THEODORA Anaya, 4 mg at 06/17/24 0614 dextrose (D50W) 50% injection 12.5 g, 12.5 g, intravenous, q15 min PRN, THEODORA Anaya dextrose (D50W) 50% injection 25 g, 25 g, intravenous, q15 min PRN, THEODORA Anaya dextrose 15 gram/60 mL oral solution 15 g, 15 g, oral, q15 min PRN, THEODORA Anaya dextrose 15 gram/60 mL oral solution 30 g, 30 g, oral, q15 min PRN, THEODORA Anaya docusate sodium (COLACE) capsule 100 mg, 100 mg, oral, BID, THEODORA Jimenez, 100 mg at 06/16/242114 doxepin (SINEquan) capsule 50 mg, 50 mg, oral, Nightly, Laisha Robert MD, 50 mg at 06/16/242114 DULoxetine (CYMBALTA) DR capsule 60 mg, 60 mg, oral, Daily, Laisha Robert MD, 60 mg at 06/16/24919 famotidine (PEPCID) tablet 20 mg, 20 mg, oral, Daily, Laisha Robert MD, 20 mg at 06/16/24920 gabapentin (NEURONTIN) capsule 500 mg, 500 mg, oral, q8h, Edgar Valencia DO, 500 mg at 06/17/24 0623 Glucagon HCl (rDNA) injection 1 mg, 1 mg, intramuscular, Once PRN, THEODORA Anaya hydrALAZINE (APRESOLINE) injection 10 mg, 10 mg, intravenous, q4h PRN, THEODORA Ortiz, 10 mg at 06/17/24 0624 insulin lispro injection 1-6 Units, 1-6 Units, subcutaneous, TID AC, THEODORA Anaya LORazepam (ATIVAN) tablet 0.5 mg, 0.5 mg, oral, q8h PRN, THEODORA Fung oxyCODONE (ROXICODONE) immediate release tablet 10 mg, 10 mg, oral, q6h PRN, THEODORA Jimenez, 10 mg at 06/17/24 0614 oxyCODONE (ROXICODONE) immediate release tablet 5 mg, 5 mg, oral, q6h PRN, THEODORA Jimenez polyethylene glycol (MIRALAX) packet 17 g, 17 g, oral, Daily, Laisha Robert MD, 17 g at senna (SENOKOT) tablet 17.2 mg, 2 tablet, oral, BID, THEODORA Jimenez, 17.2 mg at 06/16/242113 Insert peripheral IV, , , Once AND Maintain IV access, , , Until discontinued AND Saline lock IV, , , Once AND sodium chloride 0.9 % flush 10 mL, 10 mL, intravenous, BID, 10 mL at 06/16/242133 AND sodium chloride 0.9 % flush 10 mL, 10 mL, intravenous, PRN, Bridgett Renner MD tiZANidine (ZANAFLEX) tablet 2 mg, 2 mg, oral, Daily, Laisha Robert MD, 2 mg at 06/16/24 09 traZODone (DESYREL) tablet 75 mg, 75 mg, oral, Nightly PRN, Laisha Robert MD, 75 mg at 06/16/242124 triamterene-hydroCHLOROthiazide (DYAZIDE) 37.5-25 mg per capsule 1 capsule, 1 capsule, oral, Daily,THEODORA Ortiz, 1 capsule at 06/16/24 0918 valsartan (DIOVAN) tablet 160 mg, 160 mg, oral, Daily, Alice Rice NP, 160 mg at 06/16/24 0920 Allergies: Patient has no known allergies. Social/Family histories: Social History Tobacco Use Smoking status: Every Day Current packs/day: 0.50 Types: Cigarettes Passive exposure: Never Smokeless tobacco: Never Substance Use Topics Alcohol use: Not Currently Comment: occasionally Family History Problem Relation Name Age of Onset Other (HTN) Mother Uterine cancer Mother Prostate cancer Father Prostate cancer Brother Physical exam: Vitals: 06/17/24 0821 BP: 134/82 Pulse: 62 Resp: 18 Temp: 36.7 ??C (98.1 ??F) SpO2: Constitutional: AOx3. Appears well-developed and well-nourished. No distress. Pleasant but tearful and anxious lady Head / Face: Atraumatic. No abnormalities.Mucous membranes are moist, neck is supple. No lymphadenopathy. No thyromegaly. Atraumatic. No abnormalities. Eyes: Conjunctivae are normal. EOM's - Intact. Pupils - PERRLA. Heart: Normal rate, regular rhythm. No murmurs, rubs, or gallops. Lungs: CTA. No wheezes. No rhonchi. No rales.No use of accessory muscle. GI: Bowel sounds are present. Soft and depressable, non-tender. No distention. Extremities: Decreased sensation to the left extremity, 1 out of 5 strength in both lower extremities Skin: Skin is warm and dry. No rash noted. No diaphoresis. No pallor. Psychiatric: Has a normal mood and affect. Neurologic: Alert and fully oriented , cranial nerves grossly intact, 5/5 muscle strength bilaterally. Labs Admission on 06/10/2024 Component Date Value Ref Range Status Color, Urine 06/11/2024 Yellow Yellow, Colorless Final Clarity, Urine 06/11/2024 Clear Clear Final Specific [place] Urine 06/11/2024 1.015 1.005 - 1.030 Final pH, Urine 06/11/2024 8.0 (A) 5.0 - 8.0 pH Final Leukocytes, Urine 06/11/2024 Moderate (A) Negative WBCs/mcL Final Nitrite, Urine 06/11/2024 Positive (A) Negative Final Protein, Urine 06/11/2024 Negative Negative, Trace mg/dL Final Glucose, Urine 06/11/2024 Negative Negative mg/dL Final Ketones, Urine 06/11/2024 Negative Negative mg/dL Final Blood, Urine 06/11/2024 Trace Negative, Trace mg/dL Final RBC, Urine 06/11/2024 8 (H) 0 - 3 /HPF Final WBC, Urine 06/11/2024 170 (H) 0 - 5 /HPF Final Bacteria, Urine 06/11/2024 Present (A) Not Present /HPF Final Squamous Epithelial, Urine 06/11/2024 0 0 - 5 /HPF Final Mucus, Urine 06/11/2024 Present (A) Not Present /HPF Final Sodium Venous POCT 06/11/2024 131 (L) 135 - 145 mmol/L Final Potassium Venous POCT 06/11/2024 4.0 3.5 - 5.1 mmol/L Final Hemoglobin Venous POCT 06/11/2024 12.6 12.5 - 16.0 g/dL Final Hematocrit Venous POCT 06/11/2024 37 37 - 47 % Final Sodium 06/11/2024 135 135 - 145 mmol/L Final Potassium 06/11/2024 4.6 3.5 - 5.1 mmol/L Final Chloride 06/11/2024 101 98 - 107 mmol/L Final CO2 06/11/2024 27 24 - 32 mmol/L Final Anion Gap 06/11/2024 7 5 - 14 Final Glucose 06/11/2024 166 70 - 199 mg/dL Final BUN 06/11/2024 14 7 - 17 mg/dL Final Creatinine 06/11/2024 0.60 0.50 - 1.00 mg/dL Final eGFR 06/11/2024 99 >=60 mL/min/1.73m2 Final Calculation based on the Chronic Kidney Disease Epidemiology Collaboration (CKD- EPI) equation refitwithout adjustment for race. BUN/Creatinine Ratio 06/11/2024 23.3 (H) 12.0 - 20.0 Final Calcium 06/11/2024 8.5 8.4 - 10.2 mg/dL Final Calcium Ionized 06/11/2024 1.21 1.19 - 1.35 mg/dL Final WBC 06/11/2024 13.6 (H) 4.0 - 10.5 K/mcL Final RBC 06/11/2024 3.81 (L) 4.20 - 5.40 M/mcL Final Hemoglobin 06/11/2024 11.5 (L) 12.5 - 16.0 g/dL Final Hematocrit 06/11/2024 34.2 (L) 37.0 - 47.0 % Final MCV 06/11/2024 89.7 78.0 - 100.0 FL Final MCH 06/11/2024 30.2 25.0 - 33.0 pcg Final MCHC 06/11/2024 33.7 32.0 - 36.0 g/dL Final RDW 06/11/2024 14.7 12.1 - 16.2 % Final Platelets 06/11/2024 234 150 - 450 K/mcL Final MPV 06/11/2024 7.6 7.4 - 11.4 FL Final Phosphorus 06/11/2024 2.4 (L) 2.5 - 4.5 mg/dL Final Magnesium 06/11/2024 1.4 (L) 1.7 - 2.8 mg/dL Final LACTIC ACID 06/11/2024 3.2 (H) 0.5 - 2.2 mmol/L Final Glucose POCT 06/11/2024 139 70 - 199 mg/dL Final Fasting Reference Range: 70-99 mg/dL Non-Fasting Reference Range: 70-199 mg/dL Sodium 06/12/2024 131 (L) 135 - 145 mmol/L Final Potassium 06/12/2024 3.9 3.5 - 5.1 mmol/L Final Chloride 06/12/2024 103 98 - 107 mmol/L Final CO2 06/12/2024 23 (L) 24 - 32 mmol/L Final Anion Gap 06/12/2024 5 5 - 14 Final Glucose 06/12/2024 138 (H) 70 - 99 mg/dL Final BUN 06/12/2024 13 7 - 17 mg/dL Final Creatinine 06/12/2024 0.60 0.50 - 1.00 mg/dL Final eGFR 06/12/2024 99 >=60 mL/min/1.73m2 Final Calculation based on the Chronic Kidney Disease Epidemiology Collaboration (CKD- EPI) equation refitwithout adjustment for race. BUN/Creatinine Ratio 06/12/2024 21.7 (H) 12.0 - 20.0 Final Calcium 06/12/2024 8.5 8.4 - 10.2 mg/dL Final Calcium Ionized 06/12/2024 1.10 (L) 1.19 - 1.35 mg/dL Final Magnesium 06/12/2024 1.5 (L) 1.7 - 2.8 mg/dL Final Phosphorus 06/12/2024 3.1 2.5 - 4.5 mg/dL Final WBC 06/12/2024 16.3 (H) 4.0 - 10.5 K/mcL Final RBC 06/12/2024 4.26 4.20 - 5.40 M/mcL Final Hemoglobin 06/12/2024 12.7 12.5 - 16.0 g/dL Final Hematocrit 06/12/2024 38.6 37.0 - 47.0 % Final MCV 06/12/2024 90.4 78.0 - 100.0 FL Final MCH 06/12/2024 29.9 25.0 - 33.0 pcg Final MCHC 06/12/2024 33.1 32.0 - 36.0 g/dL Final RDW 06/12/2024 15.5 12.1 - 16.2 % Final Platelets 06/12/2024 266 150 - 450 K/mcL Final MPV 06/12/2024 8.3 7.4 - 11.4 FL Final Neutrophils Relative 06/12/2024 93.9 (H) 44.0 - 74.0 % Final Lymphocytes Relative 06/12/2024 3.2 (L) 20.0 - 48.0 % Final Monocytes Relative 06/12/2024 2.8 2.0 - 12.0 % Final Eosinophils Relative 06/12/2024 0.0 0.0 - 6.0 % Final Basophils Relative 06/12/2024 0.1 0.0 - 2.0 % Final Neutrophils Absolute 06/12/2024 15.30 (H) 1.80 - 7.80 K/mcL Final Lymphocytes Absolute 06/12/2024 0.50 (L) 1.00 - 3.20 K/mcL Final Monocytes Absolute 06/12/2024 0.50 0.00 - 0.80 K/mcL Final Eosinophils Absolute 06/12/2024 0.00 0.00 - 0.50 K/mcL Final Basophils Absolute 06/12/2024 0.00 0.00 - 0.20 K/mcL Final Glucose POCT 06/12/2024 117 70 - 199 mg/dL Final Fasting Reference Range: 70-99 mg/dL Non-Fasting Reference Range: 70-199 mg/dL Glucose POCT 06/12/2024 113 70 - 199 mg/dL Final Fasting Reference Range: 70-99 mg/dL Non-Fasting Reference Range: 70-199 mg/dL Glucose POCT 06/12/2024 142 70 - 199 mg/dL Final Fasting Reference Range: 70-99 mg/dL Non-Fasting Reference Range: 70-199 mg/dL Glucose POCT 06/12/2024 119 70 - 199 mg/dL Final Fasting Reference Range: 70-99 mg/dL Non-Fasting Reference Range: 70-199 mg/dL Magnesium 06/13/2024 1.7 1.7 - 2.8 mg/dL Final Phosphorus 06/13/2024 2.0 (L) 2.5 - 4.5 mg/dL Final Sodium 06/13/2024 133 (L) 135 - 145 mmol/L Final Potassium 06/13/2024 4.2 3.5 - 5.1 mmol/L Final Chloride 06/13/2024 103 98 - 107 mmol/L Final CO2 06/13/2024 25 24 - 32 mmol/L Final Anion Gap 06/13/2024 5 5 - 14 Final Glucose 06/13/2024 136 70 - 199 mg/dL Final BUN 06/13/2024 15 7 - 17 mg/dL Final Creatinine 06/13/2024 0.50 0.50 - 1.00 mg/dL Final eGFR 06/13/2024 103 >=60 mL/min/1.73m2 Final Calculation based on the Chronic Kidney Disease Epidemiology Collaboration (CKD- EPI) equation refitwithout adjustment for race. BUN/Creatinine Ratio 06/13/2024 30.0 (H) 12.0 - 20.0 Final Calcium 06/13/2024 8.2 (L) 8.4 - 10.2 mg/dL Final WBC 06/13/2024 12.9 (H) 4.0 - 10.5 K/mcL Final RBC 06/13/2024 3.22 (L) 4.20 - 5.40 M/mcL Final Hemoglobin 06/13/2024 9.7 (L) 12.5 - 16.0 g/dL Final Verified by repeat analysis Hematocrit 06/13/2024 28.4 (L) 37.0 - 47.0 % Final Verified by repeat analysis MCV 06/13/2024 88.2 78.0 - 100.0 FL Final MCH 06/13/2024 30.2 25.0 - 33.0 pcg Final MCHC 06/13/2024 34.3 32.0 - 36.0 g/dL Final RDW 06/13/2024 14.8 12.1 - 16.2 % Final Platelets 06/13/2024 181 150 - 450 K/mcL Final Verified by repeat analysis MPV 06/13/2024 8.1 7.4 - 11.4 FL Final Neutrophils Relative 06/13/2024 88.1 (H) 44.0 - 74.0 % Final Lymphocytes Relative 06/13/2024 4.7 (L) 20.0 - 48.0 % Final Monocytes Relative 06/13/2024 7.0 2.0 - 12.0 % Final Eosinophils Relative 06/13/2024 0.0 0.0 - 6.0 % Final Basophils Relative 06/13/2024 0.2 0.0 - 2.0 % Final Neutrophils Absolute 06/13/2024 11.60 (H) 1.80 - 7.80 K/mcL Final Lymphocytes Absolute 06/13/2024 0.60 (L) 1.00 - 3.20 K/mcL Final Monocytes Absolute 06/13/2024 0.90 (H) 0.00 - 0.80 K/mcL Final Eosinophils Absolute 06/13/2024 0.00 0.00 - 0.50 K/mcL Final Basophils Absolute 06/13/2024 0.00 0.00 - 0.20 K/mcL Final Glucose POCT 06/13/2024 102 70 - 199 mg/dL Final Fasting Reference Range: 70-99 mg/dL Non-Fasting Reference Range: 70-199 mg/dL Glucose POCT 06/13/2024 102 70 - 199 mg/dL Final Fasting Reference Range: 70-99 mg/dL Non-Fasting Reference Range: 70-199 mg/dL Glucose POCT 06/13/2024 142 70 - 199 mg/dL Final Fasting Reference Range: 70-99 mg/dL Non-Fasting Reference Range: 70-199 mg/dL Glucose POCT 06/13/2024 167 70 - 199 mg/dL Final Fasting Reference Range: 70-99 mg/dL Non-Fasting Reference Range: 70-199 mg/dL WBC 06/14/2024 9.4 4.0 - 10.5 K/mcL Final RBC 06/14/2024 3.24 (L) 4.20 - 5.40 M/mcL Final Hemoglobin 06/14/2024 9.7 (L) 12.5 - 16.0 g/dL Final Hematocrit 06/14/2024 28.6 (L) 37.0 - 47.0 % Final MCV 06/14/2024 88.3 78.0 - 100.0 FL Final MCH 06/14/2024 30.0 25.0 - 33.0 pcg Final MCHC 06/14/2024 34.0 32.0 - 36.0 g/dL Final RDW 06/14/2024 14.8 12.1 - 16.2 % Final Platelets 06/14/2024 197 150 - 450 K/mcL Final MPV 06/14/2024 8.2 7.4 - 11.4 FL Final Sodium 06/14/2024 133 (L) 135 - 145 mmol/L Final Potassium 06/14/2024 4.4 3.5 - 5.1 mmol/L Final Chloride 06/14/2024 100 98 - 107 mmol/L Final CO2 06/14/2024 31 24 - 32 mmol/L Final Anion Gap 06/14/2024 2 (L) 5 - 14 Final Glucose 06/14/2024 124 (H) 70 - 99 mg/dL Final BUN 06/14/2024 18 (H) 7 - 17 mg/dL Final Creatinine 06/14/2024 0.50 0.50 - 1.00 mg/dL Final eGFR 06/14/2024 103 >=60 mL/min/1.73m2 Final Calculation based on the Chronic Kidney Disease Epidemiology Collaboration (CKD- EPI) equation refitwithout adjustment for race. BUN/Creatinine Ratio 06/14/2024 36.0 (H) 12.0 - 20.0 Final Calcium 06/14/2024 8.1 (L) 8.4 - 10.2 mg/dL Final Magnesium 06/14/2024 1.9 1.7 - 2.8 mg/dL Final Phosphorus 06/14/2024 2.5 2.5 - 4.5 mg/dL Final Glucose POCT 06/14/2024 133 70 - 199 mg/dL Final Fasting Reference Range: 70-99 mg/dL Non-Fasting Reference Range: 70-199 mg/dL WBC 06/15/2024 10.0 4.0 - 10.5 K/mcL Final RBC 06/15/2024 3.56 (L) 4.20 - 5.40 M/mcL Final Hemoglobin 06/15/2024 10.7 (L) 12.5 - 16.0 g/dL Final Hematocrit 06/15/2024 31.4 (L) 37.0 - 47.0 % Final MCV 06/15/2024 88.3 78.0 - 100.0 FL Final MCH 06/15/2024 30.1 25.0 - 33.0 pcg Final MCHC 06/15/2024 34.1 32.0 - 36.0 g/dL Final RDW 06/15/2024 15.0 12.1 - 16.2 % Final Platelets 06/15/2024 224 150 - 450 K/mcL Final MPV 06/15/2024 8.2 7.4 - 11.4 FL Final Sodium 06/15/2024 134 (L) 135 - 145 mmol/L Final Potassium 06/15/2024 4.2 3.5 - 5.1 mmol/L Final Chloride 06/15/2024 99 98 - 107 mmol/L Final CO2 06/15/2024 30 24 - 32 mmol/L Final Anion Gap 06/15/2024 5 5 - 14 Final Glucose 06/15/2024 103 70 - 199 mg/dL Final BUN 06/15/2024 16 7 - 17 mg/dL Final Creatinine 06/15/2024 0.60 0.50 - 1.00 mg/dL Final eGFR 06/15/2024 99 >=60 mL/min/1.73m2 Final Calculation based on the Chronic Kidney Disease Epidemiology Collaboration (CKD- EPI) equation refitwithout adjustment for race. BUN/Creatinine Ratio 06/15/2024 26.7 (H) 12.0 - 20.0 Final Calcium 06/15/2024 8.3 (L) 8.4 - 10.2 mg/dL Final Phosphorus 06/15/2024 2.7 2.5 - 4.5 mg/dL Final Magnesium 06/15/2024 1.7 1.7 - 2.8 mg/dL Final Glucose POCT 06/15/2024 93 70 - 199 mg/dL Final Fasting Reference Range: 70-99 mg/dL Non-Fasting Reference Range: 70-199 mg/dL Glucose POCT 06/15/2024 127 70 - 199 mg/dL Final Fasting Reference Range: 70-99 mg/dL Non-Fasting Reference Range: 70-199 mg/dL Glucose POCT 06/15/2024 123 70 - 199 mg/dL Final Fasting Reference Range: 70-99 mg/dL Non-Fasting Reference Range: 70-199 mg/dL Glucose POCT 06/15/2024 125 70 - 199 mg/dL Final Fasting Reference Range: 70-99 mg/dL Non-Fasting Reference Range: 70-199 mg/dL Glucose POCT 06/16/2024 91 70 - 199 mg/dL Final Fasting Reference Range: 70-99 mg/dL Non-Fasting Reference Range: 70-199 mg/dL Glucose POCT 06/16/2024 93 70 - 199 mg/dL Final Fasting Reference Range: 70-99 mg/dL Non-Fasting Reference Range: 70-199 mg/dL Glucose POCT 06/16/2024 119 70 - 199 mg/dL Final Fasting Reference Range: 70-99 mg/dL Non-Fasting Reference Range: 70-199 mg/dL Glucose POCT 06/16/2024 128 70 - 199 mg/dL Final Fasting Reference Range: 70-99 mg/dL Non-Fasting Reference Range: 70-199 mg/dL Glucose POCT 06/17/2024 96 70 - 199 mg/dL Final Fasting Reference Range: 70-99 mg/dL Non-Fasting Reference Range: 70-199 mg/dL Lab data personally reviewed by me. Imaging: CT Thoracic Spine wo Contrast Narrative: [...] on 06/14/2024 6:04 PM. Workstation Name - [id number] -------- FINAL REPORT -------- Dictated By: Chetan Barclay Dictated Date: 06/14/2024 17:59 ET Assigned Physician: Chetan Barclay Reviewed and Electronically Signed By: Chetan Barclay Signed Date: 06/14/2024 18:04 ET Workstation ID: [id number] Transcribed By: Self Edit Transcribed Date: 06/14/2024 17:59 ET Imaging personally reviewed by me. EKG: No results found for this or any previous visit (from the past 4464 hour(s)). EKG - as reviewed by me, Problem List: Patient Active Problem List Diagnosis Lumbar spondylosis Onychomycosis Pain in toe Sacroiliitis (CMS/HCC) Spondylolisthesis Cervical spondylosis Spinal stenosis of thoracic region Thoracic spinal stenosis Age-related macular degeneration Anxiety Atrial flutter (CMS/HCC) Obstructive sleep apnea syndrome Deep vein thrombosis (DVT) of lower extremity (CMS/HCC) History of artificial joint Hypertension Osteoarthritis of hip Peripheral venous insufficiency S/P tonsillectomy and adenoidectomy Bradycardia Thoracic myelopathy Assessment and plan: 68 y.o.female with past medical history of hypertension, history of a flutter, thoracic spinal stenosis status post spinal decompressive surgery x 2 on 05/24 and 06/01 who initially admitted on 06/10/2024 as a direct transfer from [facility] for worsening neurological deficit and underwent T5-T8 fusion and T5-7 decompression thoracic with T6-7 facetectomy with removal of large ventral extradural calcified mass. During the course of hospitalization, she was admitted in the ICU for hemodynamic instability and require vasopressor support which has been off since 06/13/2024. Hospitalist team was consulted for management of hypertension. Her home medications includes valsartan 320 mg daily, metoprolol XL 50 mg, triamterene-hydrochlorothiazide 37.5-25 mg and hydralazine 50 mg twice daily. Recommendation -Will increase the dose of valsartan 160 mg to home dose of 320 mg -Continue to hold metoprolol XL due to bradycardia -Continue triamterene hydrochlorothiazide 37.5-25 mg daily -Hold hydralazine for now. If become hypertensive, can resume it -Consider Atarax 10 mg every 8 as needed for anxiety -AIMS team will continue to follow -Other management as per neurosurgery team -Extensively counseled on smoking cessation Shira Riley MD [facility] Block Hospitalist 8:36 AM EST 06/17/2024 7a-7p: Nursery Text Note : The above dictation was done using a voice recognition software. Word substitution may have occurred, may have gone uncorrected. More than 75 minutes were spent in reviewing chart, labs, imaging, coordination of the care, medical management, more than 50% time spent [id number] with the patient and educating and counseling clinical diagnosis and medical management * Ramirez Hall MD - 06/11/2024 9:30 AM EST Neurosurgical Consult Note No chief complaint on file. Admitting MD: Alida Valladares MD PCP: Solis Roman MD History of Present Illness: Patient is a 68 y.o. female who presents with paraplegia: 05/24/2024 underwent T6/7 laminectomy for presumed thoracic disc-postop unable to ambulate A week later underwent extension of laminectomy-postop lost sensation in right leg Transferred from rehab to [facility] Currently unable to ambulate due to b/l leg weakness Imaging shows large T6/7 intracanal mass (disc vs meningioma) Has had varma since first surgery Unable to have BM, needs suppository Past Medical History: Past Surgical History: Past Medical History: Diagnosis Date Adverse effect [...] [place] February 2012, subsequent L4-S1 fusion in [place] with Dr. Cagle. CARPAL TUNNEL RELEASE Right TONSILLECTOMY ADENOIDECTOMY, BILATERAL MYRINGOTOMY AND TUBES TOTAL HIP ARTHROPLASTY Left 2022 TOTAL KNEE ARTHROPLASTY Bilateral Family / Social History: Family History Problem Relation Name Age of Onset Other (HTN) Mother Uterine cancer Mother Prostate cancer Father Prostate cancer Brother Social History Socioeconomic History Marital status: Single Spouse name: Not on file Number of children: Not on file Years of education: Not on file Highest education level: Not on file Occupational History Not on file Tobacco Use Smoking status: Every Day Current packs/day: 0.50 Types: Cigarettes Passive exposure: Never Smokeless tobacco: Never Substance and Sexual Activity Alcohol use: Not Currently Comment: occasionally Drug use: Yes Types: Marijuana/Cannabis Comment: occasionally Sexual activity: Not Currently Other Topics Concern Not on file Social History Narrative Not on file Allergies: No Known Allergies Scheduled Medications: acetaminophen, 1,000 mg, oral, q6h EDEN dexAMETHasone, 4 mg, oral, q6h EDEN doxepin, 50 mg, oral, Nightly DULoxetine, 60 mg, oral, Daily famotidine, 20 mg, oral, Daily gabapentin, 800 mg, oral, q12h EDEN hydrALAZINE, 50 mg, oral, BID methylPREDNISolone, 4 mg, oral, TID with meals Followed by [START ON 06/13/2024] methylPREDNISolone, 4 mg, oral, BID with meals Followed by [START ON 06/14/2024] methylPREDNISolone, 4 mg, oral, Daily with breakfast metoprolol tartrate, 12.5 mg, oral, BID NON FORMULARY, 30 mg, oral, TID polyetheylene glycol, 17 g, oral, Daily senna, 2 tablet, oral, Nightly sodium chloride, 10 mL, intravenous, BID tiZANidine, 2 mg, oral, Daily triamterene-hydroCHLOROthiazide, 1 capsule, oral, Daily valsartan, 320 mg, oral, Daily Review of Systems: General: No change in appetite or weight Constitutional: No fevers chills or night sweats Skin: No new rashes or lesions Head: No dizziness no headache Eyes ears nose and throat: No change in vision hearing or problems controlling oral secretions Respiratory: No shortness of breath or cough Cardiac: no chest pain or palpitations Gastroenterology: No nausea, vomiting. diarrhea or constipation Genitourinary: No burning or pain with urination, no hematuria Endocrine: No heat intolerance or cold intolerance Hematology: No easy bruising or prolonged bleeding Musculoskeletal: No back pain or muscle spasms Neurology: leg weakness, numbness Psych: No change in affect or mood Vitals: Vitals: 06/11/24 0734 BP: 138/80 Pulse: 59 Resp: 18 Temp: 36.8 ??C (98.2 ??F) SpO2: 96% Physical Exam: LOWER EXTREMITY: Lower Extremity Iliopsoas Femoral L 1/2/3 Quad Femoral L2/3/4 Tibialis Anterior Peroneal L 4/5 EHL Deep Peroneal L 4/5 Gastroc/Soleus Tibial S1/2 Hamstring Tibial L5/S1/2 Right 0 0 0 0 0 0 Left 1 1 2-3 2-3 1-2 0 Right leg no sensation, clonus Left leg dullness, poor proprioception Imaging: Large intracanal (extradural vs intradural) calcified mass eccentric to right T6/7, s/p laminectomy, severe cord compression with edema Impression: T6/7 cord compression, paraplegia Recommendations: I discussed technique/risks/benefits/alternatives of T4-9 fusion and possible bilateral costotransversectomy/decompression, possible intradural decompression (after review of myelogram) to decompresscord in great detail, risks discussed: , bleeding, infection, stroke, paralysis, heart attack, damage to nearby structures, spinal fluid leak, deep vein thrombosis, pulmonary embolus, dysphagia, nerve damage/scarring, instrumentationfailure, pseudoarthrosis, reoperation, failure to improve, getting worse Wishes to proceed Understands weakness may not improve Needs preop myelogram documented in this encounter Plan of Treatment Upcoming Encounters Date Type Department Care Team (Late st Contact Info) Description 08/06/2024 1:00 PM EST Office Visit Neurosurgery - [address] [place] [id number] Ramirez Hall MD [address] [facility] [address] [place] [address] documented as of this encounter Procedures Procedure Name Priority Date/Time Associated Diagnosis Comments POCT GLUCOSE BLOOD Routine 06/25/2024 12 :11 PM EST CBC WITH AUTO DIFFERENTIAL STAT 06/25/2024 8:58 AM EST CBC AND DIFFERENTIAL STAT 06/25/2024 8:58 AM EST POCT GLUCOSE BLOOD Routine 06/25/2024 8: 30 AM EST POCT GLUCOSE BLOOD Routine 06/24/2024 4: 52 PM EST POCT GLUCOSE BLOOD Routine 06/24/2024 12 :08 PM EST POCT GLUCOSE BLOOD Routine 06/24/2024 8: 33 AM EST COMPLETE BLOOD COUNT Timed 06/24/2024 7:12 AM EST POCT GLUCOSE BLOOD Routine 06/23/2024 8: 51 PM EST POCT GLUCOSE BLOOD Routine 06/23/2024 5: 37 PM EST CBC WITH AUTO DIFFERENTIAL STAT 06/23/2024 1:30 PM EST CBC AND DIFFERENTIAL STAT 06/23/2024 1:30 PM EST POCT GLUCOSE BLOOD Routine 06/23/2024 12 :49 PM EST POCT GLUCOSE BLOOD Routine 06/23/2024 8: 58 AM EST POCT GLUCOSE BLOOD Routine 06/22/2024 9: 34 PM EST POCT GLUCOSE BLOOD Routine 06/22/2024 5: 30 PM EST POCT GLUCOSE BLOOD Routine 06/22/2024 11 :55 AM EST POCT GLUCOSE BLOOD Routine 06/22/2024 8: 38 AM EST POCT GLUCOSE BLOOD Routine 06/21/2024 10 :23 PM EST POCT GLUCOSE BLOOD Routine 06/21/2024 5: 24 PM EST POCT GLUCOSE BLOOD Routine 06/21/2024 12 :40 PM EST COMPLETE BLOOD COUNT Timed 06/21/2024 [...] PM EST POCT GLUCOSE BLOOD Routine 06/19/2024 11 :58 AM EST POCT GLUCOSE BLOOD Routine 06/19/2024 7: 59 AM EST POCT GLUCOSE BLOOD Routine 06/18/2024 9: 50 PM EST POCT GLUCOSE BLOOD Routine 06/18/2024 5: 18 PM EST POCT GLUCOSE BLOOD Routine 06/18/2024 12 :14 PM EST COMPLETE BLOOD COUNT Timed 06/18/2024 9:23 AM EST POCT GLUCOSE BLOOD Routine 06/18/2024 8: 20 AM EST POCT GLUCOSE BLOOD Routine 06/17/2024 9: 19 PM EST POCT GLUCOSE BLOOD Routine 06/17/2024 4: 48 PM EST POCT GLUCOSE BLOOD Routine 06/17/2024 12 :06 PM EST POCT GLUCOSE BLOOD Routine 06/17/2024 8: 19 AM EST POCT GLUCOSE BLOOD Routine 06/16/2024 11 :37 PM EST POCT GLUCOSE BLOOD Routine 06/16/2024 4: 47 PM EST POCT GLUCOSE BLOOD Routine 06/16/2024 11 :47 AM EST POCT GLUCOSE BLOOD Routine 06/16/2024 8: 05 AM EST POCT GLUCOSE BLOOD Routine 06/15/2024 10 :34 PM EST POCT GLUCOSE BLOOD Routine 06/15/2024 4: 50 PM EST POCT GLUCOSE BLOOD Routine 06/15/2024 12 :01 PM EST POCT GLUCOSE BLOOD Routine 06/15/2024 7: 59 AM EST COMPLETE BLOOD COUNT Timed 06/15/2024 5:27 AM EST PHOSPHORUS Timed 06/15/2024 5:27 AM EST MAGNESIUM Timed 06/15/2024 5:27 AM EST BASIC METABOLIC PANEL Timed 06/15/2024 5:27 AM EST POCT GLUCOSE BLOOD Routine 06/14/2024 11 :[address] THORACIC SPINE WO CONTRAST Routine 06/14/2024 5:26 PM EST COMPLETE BLOOD COUNT Timed 06/14/2024 4:35 AM EST PHOSPHORUS Timed 06/14/2024 4:35 AM EST MAGNESIUM Timed 06/14/2024 4:35 AM EST BASIC METABOLIC PANEL Timed 06/14/2024 4:35 AM EST POCT GLUCOSE BLOOD Routine 06/13/2024 10 :32 PM EST POCT GLUCOSE BLOOD Routine 06/13/2024 5: 43 PM EST POCT GLUCOSE BLOOD Routine 06/13/2024 12 :26 PM EST POCT GLUCOSE BLOOD Routine 06/13/2024 8: 38 AM EST CBC WITH AUTO DIFFERENTIAL Timed 06/13/2024 5:07 AM EST CBC AND DIFFERENTIAL Timed 06/13/2024 5:07 AM EST PHOSPHORUS Timed 06/13/2024 5:07 AM EST MAGNESIUM Timed 06/13/2024 5:07 AM EST BASIC METABOLIC PANEL Timed 06/13/2024 5:07 AM EST POCT GLUCOSE BLOOD Routine 06/12/2024 10 :11 PM EST POCT GLUCOSE BLOOD Routine 06/12/2024 5: 08 PM EST POCT GLUCOSE BLOOD Routine 06/12/2024 1: 23 PM EST POCT GLUCOSE BLOOD Routine 06/12/2024 9: 38 AM EST CBC WITH AUTO DIFFERENTIAL Timed 06/12/2024 3:48 AM EST CBC AND DIFFERENTIAL Timed 06/12/2024 3:48 AM EST PHOSPHORUS Timed 06/12/2024 3:48 AM EST MAGNESIUM Timed 06/12/2024 3:48 AM EST CALCIUM, IONIZED Timed 06/12/2024 3:48 AM EST BASIC METABOLIC PANEL Timed 06/12/2024 3:48 AM EST LACTATE, WITH REFLEX STAT 06/11/2024 8:52 PM EST COMPLETE BLOOD COUNT STAT 06/11/2024 8:52 PM EST PHOSPHORUS STAT 06/11/2024 8:52 PM EST MAGNESIUM STAT 06/11/2024 8:52 PM EST CALCIUM, IONIZED STAT 06/11/2024 8:52 PM EST BASIC METABOLIC PANEL STAT 06/11/2024 8:52 PM EST NM CATHETERIZATION/JANNET ULATION ARTERIAL SAMPLE/MONITORING/TR ANSFUSION PERC Routine 06/11/2024 8:43 PM EST Thoracic myelopathy Hypotension after procedure POCT GLUCOSE BLOOD Routine 06/11/2024 7: [address] SURG PLAN THORACIC SPINE WO CONTRAST(STATISTICS) Routine 06/11/2024 7:00 PM EST POCT VENOUS NA, K, HH Routine 06/11/2024 5:18 PM EST TISSUE EXAM Routine 06/11/2024 4:37 PM EST Chronic bilateral thoracic back pain DECOMPRESSION THORACIC 06/11/2024 1:25 PM EST Chronic bilateral thoracic back pain Case Notes NeuromonitoringMicroscopeAiro+C-arm FUSION THORACIC POSTERIOR 06/11/2024 1:25 PM EST Chronic bilateral thoracic back pain Case Notes NeuromonitoringMicroscopeAiro+C-arm URINALYSIS WITH MICROSCOPIC STAT 06/11/2024 1:21 PM EST URINALYSIS WITH MICROSCOPIC STAT 06/11/2024 1:21 PM EST documented in this encounter Results * POCT Glucose, blood (06/25/2024 12:11 PM EST) [facility] Glucose POCT 108 70 - 199 mg/dL 06/25/2024 12:11 PM EST [facility] Comment: Fasting Reference Range: ? 70-99 mg/dL Non-Fasting Reference Range: 70-199 mg/dL Blood Capillary blood specimen / Unknown 06/25/2024 12:11 PM EST 06/25/2024 12:12 PM EST Ramirez Hall MD LAB POINT OF CARE TE ST DOCKED DEVICE UNSOLICITED RESULTS [facility] [address] [place] [id number], * (ABNORMAL) CBC auto differential (06/25/2024 8:58 AM EST) [facility] WBC 14.9(H) 4.0 - 10.5 K/mcL LAB HEMETOLOGY METHOD 06/25/2024 9:13 AM EST [facility] RBC 4.04(L) 4.20 - 5.40 M/[facility] LAB HEMETOLOGY METHOD 06/25/2024 9:13 AM EST [facility] Hemoglobin 12.4(L) 12.5 - 16.0 g/dL LAB HEMETOLOGY METHOD 06/25/2024 9:13 AM EST [facility] Hematocrit 36.1(L) 37.0 - 47.0 % LAB HEMETOLOGY METHOD 06/25/2024 9:13 AM [facility] MCV 89.4 78.0 - 100.0 FL LAB HEMETOLOGY METHOD 06/25/2024 9:13 AM [facility] MCH 30.8 25.0 - 33.0 pcg LAB HEMETOLOGY METHOD 06/25/2024 9:13 AM [facility] MCHC 34.4 32.0 - 36.0 g/dL LAB HEMETOLOGY METHOD 06/25/2024 9:13 AM [facility] RDW 15.2 12.1 - 16.2 % LAB HEMETOLOGY METHOD 06/25/2024 9:13 AM [facility] Platelets 255 150 - 450 K/mcL LAB HEMETOLOGY METHOD 06/25/2024 9:13 AM [facility] MPV 7.3(L) 7.4 - 11.4 FL LAB HEMETOLOGY METHOD 06/25/2024 9:13 AM [facility] Neutrophils Relative 85.9(H) 44.0 - 74.0 % LAB HEMETOLOGY METHOD 06/25/2024 9:13 AM [facility] Lymphocytes Relative 3.4(L) 20.0 - 48.0 % LAB HEMETOLOGY METHOD 06/25/2024 9:13 AM [facility] Monocytes Relative 10.2 2.0 - 12.0 % LAB HEMETOLOGY METHOD 06/25/2024 9:13 AM [facility] Eosinophils Relative 0.2 0.0 - 6.0 % LAB HEMETOLOGY METHOD 06/25/2024 9:13 AM [facility] Basophils Relative 0.3 0.0 - 2.0 % LAB HEMETOLOGY METHOD 06/25/2024 9:13 AM [facility] Neutrophils Absolute 12.80(H) 1.80 - 7.80 K/mcL LAB HEMETOLOGY METHOD 06/25/2024 9:13 AM EST [facility] Lymphocytes Absolute 0.50(L) 1.00 - 3.20 K/mcL LAB HEMETOLOGY METHOD 06/25/2024 9:13 AM EST [facility] Monocytes Absolute 1.50(H) 0.00 - 0.80 K/mcL LAB HEMETOLOGY METHOD 06/25/2024 9:13 AM EST [facility] Eosinophils Absolute 0.00 0.00 - 0.50 K/mcL LAB HEMETOLOGY METHOD 06/25/2024 9:13 AM EST [facility] Basophils Absolute 0.00 0.00 - 0.20 K/mcL LAB HEMETOLOGY METHOD 06/25/2024 9:13 AM EST [facility] Blood Venous blood specimen / Unknown Venipuncture / Unknown 06/25/2024 8:58 AM EST 06/25/2024 9:04 AM EST Efrem YIP LAB BLOOD ORDERABLES [facility] [address] [place] [address], * POCT Glucose, blood (06/25/2024 8:30 AM EST) [facility] Glucose POCT 159 70 - 199 mg/dL 06/25/2024 8:30 AM EST [facility] Comment: Fasting Reference Range: ? 70-99 mg/dL Non-Fasting Reference Range: 70-199 mg/dL Blood Capillary blood specimen / Unknown 06/25/2024 8:30 AM EST 06/25/2024 8:31 AM EST Ramirez Hall MD LAB POINT OF CARE TE ST DOCKED DEVICE UNSOLICITED RESULTS [facility] [address] [place] [address], [place] [phone] * POCT Glucose, blood (06/24/2024 4:52 PM EST) Glucose POCT 111 70 - 199 mg/dL 06/24/2024 4:53 PM EST [facility] Comment: Fasting Reference Range: ? 70-99 mg/dL Non-Fasting Reference Range: 70-199 mg/dL Blood Capillary blood specimen / Unknown 06/24/2024 4:52 PM EST 06/24/2024 4:54 PM EST Ramirez Hall MD LAB POINT OF CARE TE ST DOCKED DEVICE UNSOLICITED RESULTS [facility] [address] [place] [address], * POCT Glucose, blood (06/24/2024 12:08 PM EST) Glucose POCT 102 70 - 199 mg/dL 06/24/2024 12:09 PM EST [facility] Comment: Fasting Reference Range: ? 70-99 mg/dL Non-Fasting Reference Range: 70-199 mg/dL Blood Capillary blood specimen / Unknown 06/24/2024 12:08 PM EST 06/24/2024 12:10 PM EST Ramirez Hall MD LAB POINT OF CARE TE ST DOCKED DEVICE UNSOLICITED RESULTS [facility] [address] [place] [address], [place] [phone] * POCT Glucose, blood (06/24/2024 8:33 AM EST) Glucose POCT 116 70 - 199 mg/dL 06/24/2024 8:34 AM EST [facility] Comment: Fasting Reference Range: ? 70-99 mg/dL Non-Fasting Reference Range: 70-199 mg/dL Blood Capillary blood specimen / Unknown 06/24/2024 8:33 AM EST 06/24/2024 8:35 AM EST Ramirez Hall MD LAB POINT OF CARE TE ST DOCKED DEVICE UNSOLICITED RESULTS [facility] [address] [place] [address], * (ABNORMAL) CBC - Every 3 Days (06/24/2024 7:12 AM EST) WBC 15.7(H) 4.0 - 10.5 K/mcL LAB HEMETOLOGY METHOD 06/24/2024 7:30 AM [facility] RBC 3.95(L) 4.20 - 5.40 M/mcL LAB HEMETOLOGY METHOD 06/24/2024 7:30 AM [facility] Hemoglobin 12.1(L) 12.5 - 16.0 g/dL LAB HEMETOLOGY METHOD 06/24/2024 7:30 AM [facility] Hematocrit 35.0(L) 37.0 - 47.0 % LAB HEMETOLOGY METHOD 06/24/2024 7:30 AM [facility] MCV 88.6 78.0 - 100.0 FL LAB HEMETOLOGY METHOD 06/24/2024 7:30 AM EST [facility] MCH 30.6 25.0 - 33.0 pcg LAB HEMETOLOGY METHOD 06/24/2024 7:30 AM [facility] MCHC 34.6 32.0 - 36.0 g/dL LAB HEMETOLOGY METHOD 06/24/2024 7:30 AM [facility] RDW 15.7 12.1 - 16.2 % LAB HEMETOLOGY METHOD 06/24/2024 7:30 AM [facility] Platelets 251 150 - 450 K/mcL LAB HEMETOLOGY METHOD 06/24/2024 7:30 AM EST [facility] MPV 7.2(L) 7.4 - 11.4 FL LAB HEMETOLOGY METHOD 06/24/2024 7:30 AM EST [facility] Blood Venous blood specimen / Unknown Venipuncture / Unknown 06/24/2024 7:12 AM EST 06/24/2024 7:21 AM EST Marcell YIP LAB BLOOD ORDERA BLES [facility] [address] [place] [address], * POCT Glucose, blood (06/23/2024 8:51 PM EST) Glucose POCT 122 70 - 199 mg/dL 06/23/2024 8:51 PM EST [facility] Comment: Fasting Reference Range: ? 70-99 mg/dL Non-Fasting Reference Range: 70-199 mg/dL Blood Capillary blood specimen / Unknown 06/23/2024 8:51 PM EST 06/23/2024 8:52 PM EST Ramirez Hall MD LAB POINT OF CARE TE ST DOCKED DEVICE UNSOLICITED RESULTS [facility] [address] [place] [address], * POCT Glucose, blood (06/23/2024 5:37 PM EST) Glucose POCT 117 70 - 199 mg/dL 06/23/2024 5:37 PM EST [facility] Comment: Fasting Reference Range: ? 70-99 mg/dL Non-Fasting Reference Range: 70-199 mg/dL Blood Capillary blood specimen / Unknown 06/23/2024 5:37 PM EST 06/23/2024 5:38 PM EST Ramirez Hall MD LAB POINT OF CARE TE ST DOCKED DEVICE UNSOLICITED RESULTS [facility] [address] [place] [address], * (ABNORMAL) CBC auto differential (06/23/2024 1:30 PM EST) WBC 16.3(H) 4.0 - 10.5 K/mcL LAB HEMETOLOGY METHOD 06/23/2024 2:47 PM [facility] RBC 4.07(L) 4.20 - 5.40 M/mcL LAB HEMETOLOGY METHOD 06/23/2024 2:47 PM [facility] Hemoglobin 12.3(L) 12.5 - 16.0 g/dL LAB HEMETOLOGY METHOD 06/23/2024 2:47 PM [facility] Hematocrit 36.3(L) 37.0 - 47.0 % LAB HEMETOLOGY METHOD 06/23/2024 2:47 PM [facility] MCV 89.3 78.0 - 100.0 FL LAB HEMETOLOGY METHOD 06/23/2024 2:47 PM [facility] MCH 30.2 25.0 - 33.0 pcg LAB HEMETOLOGY METHOD 06/23/2024 2:47 PM [facility] MCHC 33.8 32.0 - 36.0 g/dL LAB HEMETOLOGY METHOD 06/23/2024 2:47 PM [facility] RDW 15.1 12.1 - 16.2 % LAB HEMETOLOGY METHOD 06/23/2024 2:47 PM [facility] Platelets 294 150 - 450 K/mcL LAB HEMETOLOGY METHOD 06/23/2024 2:47 PM [facility] MPV 7.3(L) 7.4 - 11.4 FL LAB HEMETOLOGY METHOD 06/23/2024 2:47 PM [facility] Neutrophils Relative 92.2(H) 44.0 - 74.0 % LAB HEMETOLOGY METHOD 06/23/2024 2:47 PM [facility] Lymphocytes Relative 2.2(L) 20.0 - 48.0 % LAB HEMETOLOGY METHOD 06/23/2024 2:47 PM [facility] Monocytes Relative 5.5 2.0 - 12.0 % LAB HEMETOLOGY METHOD 06/23/2024 2:47 PM [facility] Eosinophils Relative 0.0 0.0 - 6.0 % LAB HEMETOLOGY METHOD 06/23/2024 2:47 PM [facility] LAB Basophils Relative 0.1 0.0 - 2.0 % LAB HEMETOLOGY METHOD 06/23/2024 2:47 PM [facility] LAB Neutrophils Absolute 15.00(H) 1.80 - 7.80 K/mcL LAB HEMETOLOGY METHOD 06/23/2024 2:47 PM [facility] LAB Lymphocytes Absolute 0.40(L) 1.00 - 3.20 K/mcL LAB HEMETOLOGY METHOD 06/23/2024 2:47 PM [facility] LAB Monocytes Absolute 0.90(H) 0.00 - 0.80 K/mcL LAB HEMETOLOGY METHOD 06/23/2024 2:47 PM [facility] LAB Eosinophils Absolute 0.00 0.00 - 0.50 K/mcL LAB HEMETOLOGY METHOD 06/23/2024 2:47 PM [facility] LAB Basophils Absolute 0.00 0.00 - 0.20 K/mcL LAB HEMETOLOGY METHOD 06/23/2024 2:47 PM [facility] LAB Blood Venous blood specimen / Unknown Venipuncture / Unknown 06/23/2024 1:30 PM EST 06/23/2024 1:42 PM EST Marcell YIP LAB BLOOD ORDERA BLES [facility] [address] [place] [address], * POCT Glucose, blood (06/23/2024 12:49 PM EST) Glucose POCT 124 70 - 199 mg/dL 06/23/2024 12:50 PM EST [facility] Comment: Fasting Reference Range: ? 70-99 mg/dL Non-Fasting Reference Range: 70-199 mg/dL Blood Capillary blood specimen / Unknown 06/23/2024 12:49 PM EST 06/23/2024 12:51 PM EST Ramirez Hall MD LAB POINT OF CARE TE ST DOCKED DEVICE UNSOLICITED RESULTS Performing Organization Address City/[facility]/ZIP Co de Phone Number [facility] [address] [place] [address], [place] [phone] * POCT Glucose, blood (06/23/2024 8:58 AM EST) Glucose POCT 121 70 - 199 mg/dL 06/23/2024 8:59 AM EST [facility] Comment: Fasting Reference Range: ? 70-99 mg/dL Non-Fasting Reference Range: 70-199 mg/dL Blood Capillary blood specimen / Unknown 06/23/2024 8:58 AM EST 06/23/2024 9:00 AM EST Ramirez Hall MD LAB POINT OF CARE TE ST DOCKED DEVICE UNSOLICITED RESULTS [facility] [address] [place] [address], [place] [phone] * POCT Glucose, blood (06/22/2024 9:34 PM EST) Glucose POCT 137 70 - 199 mg/dL 06/22/2024 9:34 PM EST [facility] Comment: Fasting Reference Range: ? 70-99 mg/dL Non-Fasting Reference Range: 70-199 mg/dL Blood Capillary blood specimen / Unknown 06/22/2024 9:34 PM EST 06/22/2024 9:35 PM EST Ramirez Hall MD LAB POINT OF CARE TE ST DOCKED DEVICE UNSOLICITED RESULTS [facility] [address] [place] [address], * POCT Glucose, blood (06/22/2024 5:30 PM EST) Glucose POCT 119 70 - 199 mg/dL 06/22/2024 5:30 PM EST [facility] Comment: Fasting Reference Range: ? 70-99 mg/dL Non-Fasting Reference Range: 70-199 mg/dL Blood Capillary blood specimen / Unknown 06/22/2024 5:30 PM EST 06/22/2024 5:31 PM EST Ramirez Hall MD LAB POINT OF CARE TE ST DOCKED DEVICE UNSOLICITED RESULTS [facility] [address] [place] [address], * POCT Glucose, blood (06/22/2024 11:55 AM EST) Glucose POCT 148 70 - 199 mg/dL 06/22/2024 11:55 AM EST [facility] Comment: Fasting Reference Range: ? 70-99 mg/dL Non-Fasting Reference Range: 70-199 mg/dL Blood Capillary blood specimen / Unknown 06/22/2024 11:55 AM EST 06/22/2024 11:56 AM EST Ramirez Hall MD LAB POINT OF CARE TE ST DOCKED DEVICE UNSOLICITED RESULTS [facility] [address] [place] [address], [place] [phone] * POCT Glucose, blood (06/22/2024 8:38 AM EST) Glucose POCT 126 70 - 199 mg/dL 06/22/2024 8:38 AM EST [facility] Comment: Fasting Reference Range: ? 70-99 mg/dL Non-Fasting Reference Range: 70-199 mg/dL Blood Capillary blood specimen / Unknown 06/22/2024 8:38 AM EST 06/22/2024 8:39 AM EST Ramirez Hall MD LAB POINT OF CARE TE ST DOCKED DEVICE UNSOLICITED RESULTS [facility] [address] [place] [address], [place] [phone] * POCT Glucose, blood (06/21/2024 10:23 PM EST) Glucose POCT 121 70 - 199 mg/dL 06/21/2024 10:23 PM EST [facility] Comment: Fasting Reference Range: ? 70-99 mg/dL Non-Fasting Reference Range: 70-199 mg/dL Blood Capillary blood specimen / Unknown 06/21/2024 10:23 PM EST 06/21/2024 10:25 PM EST Ramirez Hall MD LAB POINT OF CARE TE ST DOCKED DEVICE UNSOLICITED RESULTS [facility] [address] [place] [address], [place] [phone] * POCT Glucose, blood (06/21/2024 5:24 PM EST) Glucose POCT 115 70 - 199 mg/dL 06/21/2024 5:24 PM EST [facility] Comment: Fasting Reference Range: ? 70-99 mg/dL Non-Fasting Reference Range: 70-199 mg/dL Blood Capillary blood specimen / Unknown 06/21/2024 5:24 PM EST 06/21/2024 5:25 PM EST Ramirez Hall MD LAB POINT OF CARE TE ST DOCKED DEVICE UNSOLICITED RESULTS [facility] [address] [place] [phone], * POCT Glucose, blood (06/21/2024 12:40 PM EST) Glucose POCT 99 70 - 199 mg/dL 06/21/2024 12:42 PM EST [facility] Comment: Fasting Reference Range: ? 70-99 mg/dL Non-Fasting Reference Range: 70-199 mg/dL Blood Capillary blood specimen / Unknown 06/21/2024 12:40 PM EST 06/21/2024 12:43 PM EST Ramirez Hall MD LAB POINT OF CARE TE ST DOCKED DEVICE UNSOLICITED RESULTS [facility] [address] [place] [address], [place] [phone] * (ABNORMAL) CBC - Every 3 Days (06/21/2024 10:13 AM EST) WBC 13.9(H) 4.0 - 10.5 K/[facility] LAB HEMETOLOGY METHOD 06/21/2024 11:44 AM EST [facility] RBC 4.12(L) 4.20 - 5.40 M/[facility] LAB HEMETOLOGY METHOD 06/21/2024 11:44 AM EST [facility] Hemoglobin 12.4(L) 12.5 - 16.0 g/dL LAB HEMETOLOGY METHOD 06/21/2024 11:44 AM EST [facility] Hematocrit 36.9(L) 37.0 - 47.0 % LAB HEMETOLOGY METHOD 06/21/2024 11:44 AM EST [facility] MCV 89.6 78.0 - 100.0 FL LAB HEMETOLOGY METHOD 06/21/2024 11:44 AM EST [facility] MCH 30.2 25.0 - 33.0 pcg LAB HEMETOLOGY METHOD 06/21/2024 11:44 AM EST [facility] MCHC 33.7 32.0 - 36.0 g/dL LAB HEMETOLOGY METHOD 06/21/2024 11:44 AM EST [facility] RDW 15.3 12.1 - 16.2 % LAB HEMETOLOGY METHOD 06/21/2024 11:44 AM EST [facility] Platelets 359 150 - 450 K/mcL LAB HEMETOLOGY METHOD 06/21/2024 11:44 AM EST [facility] MPV 7.5 7.4 - 11.4 FL LAB HEMETOLOGY METHOD 06/21/2024 11:44 AM EST [facility] Blood Venous blood specimen / Unknown Venipuncture / Unknown 06/21/2024 10:13 AM EST 06/21/2024 11:03 AM EST Marcell YIP LAB BLOOD ORDERA BLES [facility] [address] [place] [address], * POCT Glucose, blood (06/21/2024 8:33 AM EST) [facility] Signature Glucose POCT 93 70 - 199 mg/dL 06/21/2024 8:44 AM EST [facility] Comment: Fasting Reference Range: ? 70-99 mg/dL Non-Fasting Reference Range: 70-199 mg/dL Blood Capillary blood specimen / Unknown 06/21/2024 8:33 AM EST 06/21/2024 8:45 AM EST Ramirez Hall MD LAB POINT OF CARE TE ST DOCKED DEVICE UNSOLICITED RESULTS [facility] [address] [place] [address], * POCT Glucose, blood (06/20/2024 9:54 PM EST) Glucose POCT 120 70 - 199 mg/dL 06/20/2024 9:55 PM EST [facility] Comment: Fasting Reference Range: ? 70-99 mg/dL Non-Fasting Reference Range: 70-199 mg/dL Blood Capillary blood specimen / Unknown 06/20/2024 9:54 PM EST 06/20/2024 9:56 PM EST Ramirez Hall MD LAB POINT OF CARE TE ST DOCKED DEVICE UNSOLICITED RESULTS Performing Organization Address City/[facility]/ZIP Co de Phone Number [facility] [address] [place] [address], * POCT Glucose, blood (06/20/2024 4:58 PM EST) Glucose POCT 123 70 - 199 mg/dL 06/20/2024 4:58 PM EST [facility] Comment: Fasting Reference Range: ? 70-99 mg/dL Non-Fasting Reference Range: 70-199 mg/dL Blood Capillary blood specimen / Unknown 06/20/2024 4:58 PM EST 06/20/2024 4:59 PM EST Ramirez Hall MD LAB POINT OF CARE TE ST DOCKED DEVICE UNSOLICITED RESULTS [facility] [address] [place] [address], [place] [phone] * POCT Glucose, blood (06/20/2024 2:22 PM EST) Glucose POCT 159 70 - 199 mg/dL 06/20/2024 2:22 PM EST [facility] Comment: Fasting Reference Range: ? 70-99 mg/dL Non-Fasting Reference Range: 70-199 mg/dL Blood Capillary blood specimen / Unknown 06/20/2024 2:22 PM EST 06/20/2024 2:23 PM EST Ramirez Hall MD LAB POINT OF CARE TE ST DOCKED DEVICE UNSOLICITED RESULTS Performing Organization Address City/[facility]/ZIP Co de Phone Number [facility] [address] [place] [address], [place] [phone] * POCT Glucose, blood (06/20/2024 8:15 AM EST) Glucose POCT 101 70 - 199 mg/dL 06/20/2024 8:16 AM EST [facility] Comment: Fasting Reference Range: ? 70-99 mg/dL Non-Fasting Reference Range: 70-199 mg/dL Blood Capillary blood specimen / Unknown 06/20/2024 8:15 AM EST 06/20/2024 8:17 AM EST Ramirez Hall MD LAB POINT OF CARE TE ST DOCKED DEVICE UNSOLICITED RESULTS [facility] [address] [place] [address], [place] [phone] * POCT Glucose, blood (06/19/2024 9:22 PM EST) Glucose POCT 135 70 - 199 mg/dL 06/19/2024 9:23 PM EST [facility] Comment: Fasting Reference Range: ? 70-99 mg/dL Non-Fasting Reference Range: 70-199 mg/dL Blood Capillary blood specimen / Unknown 06/19/2024 9:22 PM EST 06/19/2024 9:24 PM EST Ramirez Hall MD LAB POINT OF CARE TE ST DOCKED DEVICE UNSOLICITED RESULTS [facility] [address] [place] [address], * POCT Glucose, blood (06/19/2024 5:13 PM EST) Glucose POCT 140 70 - 199 mg/dL 06/19/2024 5:13 PM EST [facility] Comment: Fasting Reference Range: ? 70-99 mg/dL Non-Fasting Reference Range: 70-199 mg/dL Blood Capillary blood specimen / Unknown 06/19/2024 5:13 PM EST 06/19/2024 5:15 PM EST Ramirez Hall MD LAB POINT OF CARE TE ST DOCKED DEVICE UNSOLICITED RESULTS [facility] [address] [place] [address], * POCT Glucose, blood (06/19/2024 11:58 AM EST) Glucose POCT 119 70 - 199 mg/dL 06/19/2024 11:58 AM EST [facility] Comment: Fasting Reference Range: ? 70-99 mg/dL Non-Fasting Reference Range: 70-199 mg/dL Blood Capillary blood specimen / Unknown 06/19/2024 11:58 AM EST 06/19/2024 11:59 AM EST Ramirez Hall MD LAB POINT OF CARE TE ST DOCKED DEVICE UNSOLICITED RESULTS [facility] [address] [place] [address], * POCT Glucose, blood (06/19/2024 7:59 AM EST) Glucose POCT 110 70 - 199 mg/dL 06/19/2024 7:59 AM EST [facility] Comment: Fasting Reference Range: ? 70-99 mg/dL Non-Fasting Reference Range: 70-199 mg/dL Blood Capillary blood specimen / Unknown 06/19/2024 7:59 AM EST 06/19/2024 8:00 AM EST Ramirez Hall MD LAB POINT OF CARE TE ST DOCKED DEVICE UNSOLICITED RESULTS Performing Organization Address City/[facility]/ZIP Co de Phone Number [facility] [address] [place] [address], [place] [phone] * POCT Glucose, blood (06/18/2024 9:50 PM EST) Glucose POCT 134 70 - 199 mg/dL 06/18/2024 9:51 PM EST [facility] Comment: Fasting Reference Range: ? 70-99 mg/dL Non-Fasting Reference Range: 70-199 mg/dL Blood Capillary blood specimen / Unknown 06/18/2024 9:50 PM EST 06/18/2024 9:52 PM EST Ramirez Hall MD LAB POINT OF CARE TE ST DOCKED DEVICE UNSOLICITED RESULTS [facility] [address] [place] [address], [place] [phone] * POCT Glucose, blood (06/18/2024 5:18 PM EST) Glucose POCT 122 70 - 199 mg/dL 06/18/2024 5:18 PM EST [facility] Comment: Fasting Reference Range: ? 70-99 mg/dL Non-Fasting Reference Range: 70-199 mg/dL Blood Capillary blood specimen / Unknown 06/18/2024 5:18 PM EST 06/18/2024 5:19 PM EST Ramirez Hall MD LAB POINT OF CARE TE ST DOCKED DEVICE UNSOLICITED RESULTS [facility] [address] [place] [address], * POCT Glucose, blood (06/18/2024 12:14 PM EST) [facility] Glucose POCT 116 70 - 199 mg/dL 06/18/2024 12:15 PM EST [facility] Comment: Fasting Reference Range: ? 70-99 mg/dL Non-Fasting Reference Range: 70-199 mg/dL Blood Capillary blood specimen / Unknown 06/18/2024 12:14 PM EST 06/18/2024 12:16 PM EST Ramirez Hall MD LAB POINT OF CARE TE ST DOCKED DEVICE UNSOLICITED RESULTS [facility] [address] [place] [address], * (ABNORMAL) CBC - Every 3 Days (06/18/2024 9:23 AM EST) WBC 12.5(H) 4.0 - 10.5 K/[facility] LAB HEMETOLOGY METHOD 06/18/2024 10:27 AM EST [facility] RBC 4.01(L) 4.20 - 5.40 M/[facility] LAB HEMETOLOGY METHOD 06/18/2024 10:27 AM EST [facility] Hemoglobin 12.1(L) 12.5 - 16.0 g/dL LAB HEMETOLOGY METHOD 06/18/2024 10:27 AM EST [facility] Hematocrit 35.5(L) 37.0 - 47.0 % LAB HEMETOLOGY METHOD 06/18/2024 10:27 AM EST [facility] MCV 88.6 78.0 - 100.0 FL LAB HEMETOLOGY METHOD 06/18/2024 10:27 AM EST [facility] MCH 30.3 25.0 - 33.0 pcg LAB HEMETOLOGY METHOD 06/18/2024 10:27 AM EST [facility] MCHC 34.2 32.0 - 36.0 g/dL LAB HEMETOLOGY METHOD 06/18/2024 10:27 AM [facility] RDW 15.0 12.1 - 16.2 % LAB HEMETOLOGY METHOD 06/18/2024 10:27 AM EST [facility] Platelets 341 150 - 450 K/mcL LAB HEMETOLOGY METHOD 06/18/2024 10:27 AM EST [facility] MPV 7.5 7.4 - 11.4 FL LAB HEMETOLOGY METHOD 06/18/2024 10:27 AM [facility] Blood Venous blood specimen / Unknown Venipuncture / Unknown 06/18/2024 9:23 AM EST 06/18/2024 9:49 AM EST Marcell YIP LAB BLOOD ORDERA BLES [facility] [address] [place] [address], * POCT Glucose, blood (06/18/2024 8:20 AM EST) [facility] Signature Glucose POCT 140 70 - 199 mg/dL 06/18/2024 8:20 AM EST [facility] Comment: Fasting Reference Range: ? 70-99 mg/dL Non-Fasting Reference Range: 70-199 mg/dL Blood Capillary blood specimen / Unknown 06/18/2024 8:20 AM EST 06/18/2024 8:22 AM EST Ramirez Hall MD LAB POINT OF CARE TE ST DOCKED DEVICE UNSOLICITED RESULTS [facility] [address] [place] [phone], * POCT Glucose, blood (06/17/2024 9:19 PM EST) Glucose POCT 137 70 - 199 mg/dL 06/17/2024 9:20 PM EST [facility] Comment: Fasting Reference Range: ? 70-99 mg/dL Non-Fasting Reference Range: 70-199 mg/dL Blood Capillary blood specimen / Unknown 06/17/2024 9:19 PM EST 06/17/2024 9:21 PM EST Ramirez Hall MD LAB POINT OF CARE TE ST DOCKED DEVICE UNSOLICITED RESULTS Performing Organization Address City/[facility] Co de Phone Number [facility] [address] [place] [address], * POCT Glucose, blood (06/17/2024 4:48 PM EST) Glucose POCT 132 70 - 199 mg/dL 06/17/2024 4:49 PM EST [facility] Comment: Fasting Reference Range: ? 70-99 mg/dL Non-Fasting Reference Range: 70-199 mg/dL Blood Capillary blood specimen / Unknown 06/17/2024 4:48 PM EST 06/17/2024 4:50 PM EST Ramirez Hall MD LAB POINT OF CARE TE ST DOCKED DEVICE UNSOLICITED RESULTS [facility] [address] [place] [address], * POCT Glucose, blood (06/17/2024 12:06 PM EST) Glucose POCT 92 70 - 199 mg/dL 06/17/2024 12:06 PM EST [facility] Comment: Fasting Reference Range: ? 70-99 mg/dL Non-Fasting Reference Range: 70-199 mg/dL Blood Capillary blood specimen / Unknown 06/17/2024 12:06 PM EST 06/17/2024 12:07 PM EST Ramirez Hall MD LAB POINT OF CARE TE ST DOCKED DEVICE UNSOLICITED RESULTS Performing Organization Address City/[facility]/ZIP Co de Phone Number [facility] [address] [place] [address], * POCT Glucose, blood (06/17/2024 8:19 AM EST) Glucose POCT 96 70 - 199 mg/dL 06/17/2024 8:19 AM EST [facility] Comment: Fasting Reference Range: ? 70-99 mg/dL Non-Fasting Reference Range: 70-199 mg/dL Blood Capillary blood specimen / Unknown 06/17/2024 8:19 AM EST 06/17/2024 8:20 AM EST Ramirez Hall MD LAB POINT OF CARE TE ST DOCKED DEVICE UNSOLICITED RESULTS [facility] [address] [place] [address], [place] [phone] * POCT Glucose, blood (06/16/2024 11:37 PM EST) Glucose POCT 128 70 - 199 mg/dL 06/16/2024 11:38 PM EST [facility] Comment: Fasting Reference Range: ? 70-99 mg/dL Non-Fasting Reference Range: 70-199 mg/dL Blood Capillary blood specimen / Unknown 06/16/2024 11:37 PM EST 06/16/2024 11:39 PM EST Ramirez Hall MD LAB POINT OF CARE TE ST DOCKED DEVICE UNSOLICITED RESULTS [facility] [address] [place] [address], * POCT Glucose, blood (06/16/2024 4:47 PM EST) Glucose POCT 119 70 - 199 mg/dL 06/16/2024 4:48 PM EST [facility] Comment: Fasting Reference Range: ? 70-99 mg/dL Non-Fasting Reference Range: 70-199 mg/dL Blood Capillary blood specimen / Unknown 06/16/2024 4:47 PM EST 06/16/2024 4:49 PM EST Ramirez Hall MD LAB POINT OF CARE TE ST DOCKED DEVICE UNSOLICITED RESULTS Performing Organization Address City/[facility]/ZIP Co de Phone Number [facility] [address] [place] [address], * POCT Glucose, blood (06/16/2024 11:47 AM EST) Glucose POCT 93 70 - 199 mg/dL 06/16/2024 11:47 AM EST [facility] Comment: Fasting Reference Range: ? 70-99 mg/dL Non-Fasting Reference Range: 70-199 mg/dL Blood Capillary blood specimen / Unknown 06/16/2024 11:47 AM EST 06/16/2024 11:49 AM EST Ramirez Hall MD LAB POINT OF CARE TE ST DOCKED DEVICE UNSOLICITED RESULTS [facility] [address] [place] [address], [place] [phone] * POCT Glucose, blood (06/16/2024 8:05 AM EST) Glucose POCT 91 70 - 199 mg/dL 06/16/2024 8:06 AM EST [facility] Comment: Fasting Reference Range: ? 70-99 mg/dL Non-Fasting Reference Range: 70-199 mg/dL Blood Capillary blood specimen / Unknown 06/16/2024 8:05 AM EST 06/16/2024 8:07 AM EST Ramirez Hall MD LAB POINT OF CARE TE ST DOCKED DEVICE UNSOLICITED RESULTS Performing Organization Address City/[facility]/ZIP Co de Phone Number [facility] [address] [place] [address], [place] [phone] * POCT Glucose, blood (06/15/2024 10:34 PM EST) Glucose POCT 125 70 - 199 mg/dL 06/15/2024 10:35 PM EST [facility] Comment: Fasting Reference Range: ? 70-99 mg/dL Non-Fasting Reference Range: 70-199 mg/dL Blood Capillary blood specimen / Unknown 06/15/2024 10:34 PM EST 06/15/2024 10:36 PM EST Ramirez Hall MD LAB POINT OF CARE TE ST DOCKED DEVICE UNSOLICITED RESULTS [facility] [address] [place] [address], [place] [phone] * POCT Glucose, blood (06/15/2024 4:50 PM EST) Glucose POCT 123 70 - 199 mg/dL 06/15/2024 4:51 PM EST [facility] Comment: Fasting Reference Range: ? 70-99 mg/dL Non-Fasting Reference Range: 70-199 mg/dL Blood Capillary blood specimen / Unknown 06/15/2024 4:50 PM EST 06/15/2024 4:52 PM EST Ramirez Hall MD LAB POINT OF CARE TE ST DOCKED DEVICE UNSOLICITED RESULTS [facility] [address] [place] [address], * POCT Glucose, blood (06/15/2024 12:01 PM EST) Glucose POCT 127 70 - 199 mg/dL 06/15/2024 12:01 PM EST [facility] Comment: Fasting Reference Range: ? 70-99 mg/dL Non-Fasting Reference Range: 70-199 mg/dL Blood Capillary blood specimen / Unknown 06/15/2024 12:01 PM EST 06/15/2024 12:02 PM EST Ramirez Hall MD LAB POINT OF CARE TE ST DOCKED DEVICE UNSOLICITED RESULTS Performing Organization Address City/[facility]/ZIP Co de Phone Number [facility] [address] [place] [address], * POCT Glucose, blood (06/15/2024 7:59 AM EST) Glucose POCT 93 70 - 199 mg/dL 06/15/2024 7:59 AM EST [facility] Comment: Fasting Reference Range: ? 70-99 mg/dL Non-Fasting Reference Range: 70-199 mg/dL Blood Capillary blood specimen / Unknown 06/15/2024 7:59 AM EST 06/15/2024 8:00 AM EST Ramirez Hall MD LAB POINT OF CARE TE ST DOCKED DEVICE UNSOLICITED RESULTS Performing Organization Address City/[facility]/ZIP Co de Phone Number [facility] [address] [place] [address], * Magnesium (06/15/2024 5:27 AM EST) Magnesium 1.7 1.7 - 2.8 mg/dL LAB CHEMISTRY METHOD 06/15/2024 6:16 AM EST [facility] Blood Venous blood specimen / Unknown Venipuncture / Unknown 06/15/2024 5:27 AM EST 06/15/2024 5:42 AM EST Alice Rice NP LAB BLOOD ORDERABLES Performing Organization Address [facility]/ZIP Co de Phone Number [facility] [address] [place] [address], * Phosphorus (06/15/2024 5:27 AM EST) Phosphorus 2.7 2.5 - 4.5 mg/dL LAB CHEMISTRY METHOD 06/15/2024 6:16 AM EST [facility] Blood Venous blood specimen / Unknown Venipuncture / Unknown 06/15/2024 5:27 AM EST 06/15/2024 5:42 AM EST Alice Rice NP LAB BLOOD ORDERABLES Performing Organization Address City/[facility]/ZIP Co de Phone Number [facility] [address] [place] [address], [place] [phone] * (ABNORMAL) Basic metabolic panel (06/15/2024 5:27 AM EST) Sodium 134(L) 135 - 145 mmol/L LAB CHEMISTRY METHOD 06/15/2024 6:16 AM EST [facility] Potassium 4.2 3.5 - 5.1 mmol/L LAB CHEMISTRY METHOD 06/15/2024 6:16 AM EST [facility] Chloride 99 98 - 107 mmol/L LAB CHEMISTRY METHOD 06/15/2024 6:16 AM [facility] LAB CO2 30 24 - 32 mmol/L LAB CHEMISTRY METHOD 06/15/2024 6:16 AM EST [facility] Anion Gap 5 5 - 14 LAB CHEMISTRY METHOD 06/15/2024 6:16 AM EST [facility] Glucose 103 70 - 199 mg/dL LAB CHEMISTRY METHOD 06/15/2024 6:16 AM EST [facility] BUN 16 7 - 17 mg/dL LAB CHEMISTRY METHOD 06/15/2024 6:16 AM [facility] LAB Creatinine 0.60 0.50 - 1.00 mg/dL LAB CHEMISTRY METHOD 06/15/2024 6:16 AM EST [facility] eGFR 99 >=60 mL/min/1. 73m2 LAB CHEMISTRY METHOD 06/15/2024 6:16 AM EST [facility] Comment:Calculation based on the??Chronic Kidney Disease Epidemiology Collaboration (CKD-EPI) equation refit??without adjustment for race. BUN/Creatinine Ratio 26.7(H) 12.0 - 20.0 LAB CHEMISTRY METHOD 06/15/2024 6:16 AM EST [facility] Calcium 8.3(L) 8.4 - 10.2 mg/dL LAB CHEMISTRY METHOD 06/15/2024 6:16 AM EST [facility] Blood Venous blood specimen / Unknown Venipuncture / Unknown 06/15/2024 5:27 AM EST 06/15/2024 5:42 AM EST Alice Rice NP LAB BLOOD ORDERABLES [facility] [address] [place] [address], * (ABNORMAL) Complete blood count (06/15/2024 5:27 AM EST) WBC 10.0 4.0 - 10.5 K/mcL LAB HEMETOLOGY METHOD 06/15/2024 5:54 AM [facility] LAB RBC 3.56(L) 4.20 - 5.40 M/mcL LAB HEMETOLOGY METHOD 06/15/2024 5:54 AM [facility] LAB Hemoglobin 10.7(L) 12.5 - 16.0 g/dL LAB HEMETOLOGY METHOD 06/15/2024 5:54 AM [facility] LAB Hematocrit 31.4(L) 37.0 - 47.0 % LAB HEMETOLOGY METHOD 06/15/2024 5:54 AM [facility] LAB MCV 88.3 78.0 - 100.0 FL LAB HEMETOLOGY METHOD 06/15/2024 5:54 AM EST [facility] MCH 30.1 25.0 - 33.0 pcg LAB HEMETOLOGY METHOD 06/15/2024 5:54 AM EST [facility] MCHC 34.1 32.0 - 36.0 g/dL LAB HEMETOLOGY METHOD 06/15/2024 5:54 AM [facility] LAB RDW 15.0 12.1 - 16.2 % LAB HEMETOLOGY METHOD 06/15/2024 5:54 AM EST [facility] Platelets 224 150 - 450 K/mcL LAB HEMETOLOGY METHOD 06/15/2024 5:54 AM EST [facility] MPV 8.2 7.4 - 11.4 FL LAB HEMETOLOGY METHOD 06/15/2024 5:54 AM [facility] LAB Blood Venous blood specimen / Unknown Venipuncture / Unknown 06/15/2024 5:27 AM EST 06/15/2024 5:42 AM EST Alice O'Marquise [employer] LAB BLOOD ORDERABLES [facility] [address] [place] [address], * POCT Glucose, blood (06/14/2024 11:43 PM EST) Glucose POCT 133 70 - 199 mg/dL 06/14/2024 11:44 PM EST [facility] Comment: Fasting Reference Range: ? 70-99 mg/dL Non-Fasting Reference Range: 70-199 mg/dL Blood Capillary blood specimen / Unknown 06/14/2024 11:43 PM EST 06/14/2024 11:45 PM EST Ramirez Hall MD LAB POINT OF CARE TE ST DOCKED DEVICE UNSOLICITED RESULTS Performing Organization Address [facility] Co de Phone Number [facility] [address] [place] [phone], * CT Thoracic Spine wo Contrast (06/14/2024 5:26 PM EST) Anatomical Region Laterality Modality Spine, T-spine Computed [...] on 06/14/2024 6:04 PM. Workstation Name - [id number] -------- FINAL REPORT -------- Dictated By: Chetan Barclay Dictated Date: 06/14/2024 17:59 ET Assigned Physician: Chetan Barclay Reviewed and Electronically Signed By: Chetan Barclay Signed Date: 06/14/2024 18:04 ET Workstation ID: [id number] Transcribed By: Self Edit Transcribed Date: 06/14/2024 [...] Barclay on 06/14/2024 6:04 PM.Workstation Name - [id number] -------- FINAL REPORT -------- Dictated By: Chetan Barclay Dictated Date: 06/14/2024 17:59 ET Assigned Physician: Chetan Barclay Reviewed and Electronically Signed By: Chetan Barclay Signed Date: 06/14/2024 18:04 ET Workstation ID: [id number] Transcribed By: Self Edit Transcribed Date: 06/14/2024 17:59 ET [address] YIP IMG CT PROCEDURES * Phosphorus (06/14/2024 4:35 AM EST) Phosphorus 2.5 2.5 - 4.5 mg/dL LAB CHEMISTRY METHOD 06/14/2024 5:41 AM EST [facility] Blood Venous blood specimen / Unknown Venipuncture / Unknown 06/14/2024 4:35 AM EST 06/14/2024 5:06 AM EST [facility] LAB BLOOD ORDERABLES [facility] [address] [place] [phone], * Magnesium (06/14/2024 4:35 AM EST) [facility] Magnesium 1.9 1.7 - 2.8 mg/dL LAB CHEMISTRY METHOD 06/14/2024 5:41 AM EST [facility] Blood Venous blood specimen / Unknown Venipuncture / Unknown 06/14/2024 4:35 AM EST 06/14/2024 5:06 AM EST [facility] LAB BLOOD ORDERABLES [facility] [address] [place] [phone], [place] [phone] * (ABNORMAL) Basic metabolic panel (06/14/2024 4:35 AM EST) Sodium 133(L) 135 - 145 mmol/L LAB CHEMISTRY METHOD 06/14/2024 5:41 AM [facility] Potassium 4.4 3.5 - 5.1 mmol/L LAB CHEMISTRY METHOD 06/14/2024 5:41 AM [facility] Chloride 100 98 - 107 mmol/L LAB CHEMISTRY METHOD 06/14/2024 5:41 AM [facility] CO2 31 24 - 32 mmol/L LAB CHEMISTRY METHOD 06/14/2024 5:41 AM [facility] Anion Gap 2(L) 5 - 14 LAB CHEMISTRY METHOD 06/14/2024 5:41 AM [facility] Glucose 124(H) 70 - 99 mg/dL LAB CHEMISTRY METHOD 06/14/2024 5:41 AM [facility] BUN 18(H) 7 - 17 mg/dL LAB CHEMISTRY METHOD 06/14/2024 5:41 AM [facility] Creatinine 0.50 0.50 - 1.00 mg/dL LAB CHEMISTRY METHOD 06/14/2024 5:41 AM [facility] eGFR 103 >=60 mL/min/1. 73m2 LAB CHEMISTRY METHOD 06/14/2024 5:41 AM [facility] Comment:Calculation based on the??Chronic Kidney Disease Epidemiology Collaboration (CKD-EPI) equation refit??without adjustment for race. BUN/Creatinine Ratio 36.0(H) 12.0 - 20.0 LAB CHEMISTRY METHOD 06/14/2024 5:41 AM EST [facility] Calcium 8.1(L) 8.4 - 10.2 mg/dL LAB CHEMISTRY METHOD 06/14/2024 5:41 AM [facility] Blood Venous blood specimen / Unknown Venipuncture / Unknown 06/14/2024 4:35 AM EST 06/14/2024 5:06 AM EST [facility] LAB BLOOD ORDERABLES [facility] [address] [place] [address], [place] [phone] * (ABNORMAL) Complete blood count (06/14/2024 4:35 AM EST) [facility] WBC 9.4 4.0 - 10.5 K/mcL LAB HEMETOLOGY METHOD 06/14/2024 5:15 AM EST [facility] RBC 3.24(L) 4.20 - 5.40 M/mcL LAB HEMETOLOGY METHOD 06/14/2024 5:15 AM EST [facility] Hemoglobin 9.7(L) 12.5 - 16.0 g/dL LAB HEMETOLOGY METHOD 06/14/2024 5:15 AM EST [facility] Hematocrit 28.6(L) 37.0 - 47.0 % LAB HEMETOLOGY METHOD 06/14/2024 5:15 AM EST [facility] MCV 88.3 78.0 - 100.0 FL LAB HEMETOLOGY METHOD 06/14/2024 5:15 AM EST [facility] MCH 30.0 25.0 - 33.0 pcg LAB HEMETOLOGY METHOD 06/14/2024 5:15 AM EST [facility] MCHC 34.0 32.0 - 36.0 g/dL LAB HEMETOLOGY METHOD 06/14/2024 5:15 AM EST [facility] RDW 14.8 12.1 - 16.2 % LAB HEMETOLOGY METHOD 06/14/2024 5:15 AM EST [facility] Platelets 197 150 - 450 K/mcL LAB HEMETOLOGY METHOD 06/14/2024 5:15 AM EST [facility] MPV 8.2 7.4 - 11.4 FL LAB HEMETOLOGY METHOD 06/14/2024 5:15 AM EST [facility] Blood Venous blood specimen / Unknown Venipuncture / Unknown 06/14/2024 4:35 AM EST 06/14/2024 5:06 AM EST [facility] LAB BLOOD ORDERABLES [facility] [address] [place] [address], * POCT Glucose, blood (06/13/2024 10:32 PM EST) Glucose POCT 167 70 - 199 mg/dL 06/13/2024 10:34 PM EST [facility] Comment: Fasting Reference Range: ? 70-99 mg/dL Non-Fasting Reference Range: 70-199 mg/dL Blood Capillary blood specimen / Unknown 06/13/2024 10:32 PM EST 06/13/2024 10:35 PM EST Ramirez Hall MD LAB POINT OF CARE TE ST DOCKED DEVICE UNSOLICITED RESULTS [facility] [address] [place] [address], [place] [phone] * POCT Glucose, blood (06/13/2024 5:43 PM EST) Glucose POCT 142 70 - 199 mg/dL 06/13/2024 5:55 PM EST [facility] Comment: Fasting Reference Range: ? 70-99 mg/dL Non-Fasting Reference Range: 70-199 mg/dL Blood Capillary blood specimen / Unknown 06/13/2024 5:43 PM EST 06/13/2024 5:56 PM EST Ramirez Hall MD LAB POINT OF CARE TE ST DOCKED DEVICE UNSOLICITED RESULTS [facility] [address] [place] [address], * POCT Glucose, blood (06/13/2024 12:26 PM EST) Glucose POCT 102 70 - 199 mg/dL 06/13/2024 12:27 PM EST [facility] Comment: Fasting Reference Range: ? 70-99 mg/dL Non-Fasting Reference Range: 70-199 mg/dL Blood Capillary blood specimen / Unknown 06/13/2024 12:26 PM EST 06/13/2024 12:29 PM EST Ramirez Hall MD LAB POINT OF CARE TE ST DOCKED DEVICE UNSOLICITED RESULTS [facility] [address] [place] [phone], * POCT Glucose, blood (06/13/2024 8:38 AM EST) [facility] Glucose POCT 102 70 - 199 mg/dL 06/13/2024 8:39 AM EST [facility] Comment: Fasting Reference Range: ? 70-99 mg/dL Non-Fasting Reference Range: 70-199 mg/dL Blood Capillary blood specimen / Unknown 06/13/2024 8:38 AM EST 06/13/2024 8:40 AM EST Ramirez Hall MD LAB POINT OF CARE TE ST DOCKED DEVICE UNSOLICITED RESULTS [facility] [address] [place] [address], [place] [phone] * (ABNORMAL) CBC auto differential (06/13/2024 5:07 AM EST) WBC 12.9(H) 4.0 - 10.5 K/[facility] LAB HEMETOLOGY METHOD 06/13/2024 5:26 AM EST [facility] RBC 3.22(L) 4.20 - 5.40 M/[facility] LAB HEMETOLOGY METHOD 06/13/2024 5:26 AM [facility] Hemoglobin 9.7(L) 12.5 - 16.0 g/dL LAB HEMETOLOGY METHOD 06/13/2024 5:26 AM [facility] Comment:Verified by repeat a nalysis Hematocrit 28.4(L) 37.0 - 47.0 % LAB HEMETOLOGY METHOD 06/13/2024 5:26 AM [facility] Comment:Verified by repeat a nalysis MCV 88.2 78.0 - 100.0 FL LAB HEMETOLOGY METHOD 06/13/2024 5:26 AM [facility] MCH 30.2 25.0 - 33.0 pcg LAB HEMETOLOGY METHOD 06/13/2024 5:26 AM [facility] MCHC 34.3 32.0 - 36.0 g/dL LAB HEMETOLOGY METHOD 06/13/2024 5:26 AM [facility] RDW 14.8 12.1 - 16.2 % LAB HEMETOLOGY METHOD 06/13/2024 5:26 AM [facility] Platelets 181 150 - 450 K/mcL LAB HEMETOLOGY METHOD 06/13/2024 5:26 AM [facility] Comment:Verified by repeat a nalysis MPV 8.1 7.4 - 11.4 FL LAB HEMETOLOGY METHOD 06/13/2024 5:26 AM [facility] Neutrophils Relative 88.1(H) 44.0 - 74.0 % LAB HEMETOLOGY METHOD 06/13/2024 5:26 AM [facility] Lymphocytes Relative 4.7(L) 20.0 - 48.0 % LAB HEMETOLOGY METHOD 06/13/2024 5:26 AM [facility] Monocytes Relative 7.0 2.0 - 12.0 % LAB HEMETOLOGY METHOD 06/13/2024 5:26 AM [facility] Eosinophils Relative 0.0 0.0 - 6.0 % LAB HEMETOLOGY METHOD 06/13/2024 5:26 AM EST [facility] Basophils Relative 0.2 0.0 - 2.0 % LAB HEMETOLOGY METHOD 06/13/2024 5:26 AM EST [facility] Neutrophils Absolute 11.60(H) 1.80 - 7.80 K/mcL LAB HEMETOLOGY METHOD 06/13/2024 5:26 AM EST [facility] Lymphocytes Absolute 0.60(L) 1.00 - 3.20 K/mcL LAB HEMETOLOGY METHOD 06/13/2024 5:26 AM EST [facility] Monocytes Absolute 0.90(H) 0.00 - 0.80 K/mcL LAB HEMETOLOGY METHOD 06/13/2024 5:26 AM EST [facility] Eosinophils Absolute 0.00 0.00 - 0.50 K/mcL LAB HEMETOLOGY METHOD 06/13/2024 5:26 AM EST [facility] Basophils Absolute 0.00 0.00 - 0.20 K/mcL LAB HEMETOLOGY METHOD 06/13/2024 5:26 AM EST [facility] Blood Venous blood specimen / Unknown Venipuncture / Unknown 06/13/2024 5:07 AM EST 06/13/2024 5:16 AM EST Clyde [facility] LAB BLOOD ORDERABL ES [facility] [address] [place] [address], * (ABNORMAL) Basic metabolic panel (06/13/2024 5:07 AM EST) Sodium 133(L) 135 - 145 mmol/L LAB CHEMISTRY METHOD 06/13/2024 5:46 AM EST [facility] Potassium 4.2 3.5 - 5.1 mmol/L LAB CHEMISTRY METHOD 06/13/2024 5:46 AM [facility] Chloride 103 98 - 107 mmol/L LAB CHEMISTRY METHOD 06/13/2024 5:46 AM [facility] CO2 25 24 - 32 mmol/L LAB CHEMISTRY METHOD 06/13/2024 5:46 AM [facility] Anion Gap 5 5 - 14 LAB CHEMISTRY METHOD 06/13/2024 5:46 AM EST [facility] Glucose 136 70 - 199 mg/dL LAB CHEMISTRY METHOD 06/13/2024 5:46 AM [facility] BUN 15 7 - 17 mg/dL LAB CHEMISTRY METHOD 06/13/2024 5:46 AM [facility] Creatinine 0.50 0.50 - 1.00 mg/dL LAB CHEMISTRY METHOD 06/13/2024 5:46 AM EST [facility] eGFR 103 >=60 mL/min/1. 73m2 LAB CHEMISTRY METHOD 06/13/2024 5:46 AM EST [facility] Comment:Calculation based on the??Chronic Kidney Disease Epidemiology Collaboration (CKD-EPI) equation refit??without adjustment for race. BUN/Creatinine Ratio 30.0(H) 12.0 - 20.0 LAB CHEMISTRY METHOD 06/13/2024 5:46 AM EST [facility] Calcium 8.2(L) 8.4 - 10.2 mg/dL LAB CHEMISTRY METHOD 06/13/2024 5:46 AM EST [facility] Blood Venous blood specimen / Unknown Venipuncture / Unknown 06/13/2024 5:07 AM EST 06/13/2024 5:17 AM EST [facility]de [facility] LAB BLOOD ORDERABL ES [facility] [address] [place] [address], * (ABNORMAL) Phosphorus (06/13/2024 5:07 AM EST) Phosphorus 2.0(L) 2.5 - 4.5 mg/dL LAB CHEMISTRY METHOD 06/13/2024 5:46 AM EST [facility] Blood Venous blood specimen / Unknown Venipuncture / Unknown 06/13/2024 5:07 AM EST 06/13/2024 5:17 AM EST [facility] LAB BLOOD ORDERABL ES [facility] [address] [place] [address], * Magnesium (06/13/2024 5:07 AM EST) [facility] Magnesium 1.7 1.7 - 2.8 mg/dL LAB CHEMISTRY METHOD 06/13/2024 5:46 AM EST [facility] Blood Venous blood specimen / Unknown Venipuncture / Unknown 06/13/2024 5:07 AM EST 06/13/2024 5:17 AM EST [facility] LAB BLOOD ORDERABL ES Performing Organization Address City/[facility]/ZIP Co de Phone Number [facility] [address] [place] [phone], * POCT Glucose, blood (06/12/2024 10:11 PM EST) [facility] Glucose POCT 119 70 - 199 mg/dL 06/12/2024 10:19 PM EST [facility] Comment: Fasting Reference Range: ? 70-99 mg/dL Non-Fasting Reference Range: 70-199 mg/dL Blood Capillary blood specimen / Unknown 06/12/2024 10:11 PM EST 06/12/2024 10:20 PM EST Ramirez Hall MD LAB POINT OF CARE TE ST DOCKED DEVICE UNSOLICITED RESULTS [facility] [address] [place] [address], * POCT Glucose, blood (06/12/2024 5:08 PM EST) Glucose POCT 142 70 - 199 mg/dL 06/12/2024 6:41 PM EST [facility] Comment: Fasting Reference Range: ? 70-99 mg/dL Non-Fasting Reference Range: 70-199 mg/dL Blood Capillary blood specimen / Unknown 06/12/2024 5:08 PM EST 06/12/2024 6:42 PM EST Ramirez Hall MD LAB POINT OF CARE TE ST DOCKED DEVICE UNSOLICITED RESULTS Performing Organization Address [facility]/ZIP Co de Phone Number [facility] [address] [place] [phone], [place] [phone] * POCT Glucose, blood (06/12/2024 1:23 PM EST) Glucose POCT 113 70 - 199 mg/dL 06/12/2024 4:34 PM EST [facility] Comment: Fasting Reference Range: ? 70-99 mg/dL Non-Fasting Reference Range: 70-199 mg/dL Blood Capillary blood specimen / Unknown 06/12/2024 1:23 PM EST 06/12/2024 4:35 PM EST Ramirez Hall MD LAB POINT OF CARE TE ST DOCKED DEVICE UNSOLICITED RESULTS [facility] [address] [place] [address], [place] [phone] * POCT Glucose, blood (06/12/2024 9:38 AM EST) Glucose POCT 117 70 - 199 mg/dL 06/12/2024 1:21 PM EST [facility] Comment: Fasting Reference Range: ? 70-99 mg/dL Non-Fasting Reference Range: 70-199 mg/dL Blood Capillary blood specimen / Unknown 06/12/2024 9:38 AM EST 06/12/2024 1:22 PM EST Ramirez Hall MD LAB POINT OF CARE TE ST DOCKED DEVICE UNSOLICITED RESULTS [facility] [address] [place] [address], [place] [phone] * (ABNORMAL) CBC auto differential (06/12/2024 3:48 AM EST) WBC 16.3(H) 4.0 - 10.5 K/mcL LAB HEMETOLOGY METHOD 06/12/2024 4:26 AM [facility] RBC 4.26 4.20 - 5.40 M/mcL LAB HEMETOLOGY METHOD 06/12/2024 4:26 AM [facility] Hemoglobin 12.7 12.5 - 16.0 g/dL LAB HEMETOLOGY METHOD 06/12/2024 4:26 AM [facility] Hematocrit 38.6 37.0 - 47.0 % LAB HEMETOLOGY METHOD 06/12/2024 4:26 AM [facility] MCV 90.4 78.0 - 100.0 FL LAB HEMETOLOGY METHOD 06/12/2024 4:26 AM [facility] MCH 29.9 25.0 - 33.0 pcg LAB HEMETOLOGY METHOD 06/12/2024 4:26 AM [facility] MCHC 33.1 32.0 - 36.0 g/dL LAB HEMETOLOGY METHOD 06/12/2024 4:26 AM [facility] RDW 15.5 12.1 - 16.2 % LAB HEMETOLOGY METHOD 06/12/2024 4:26 AM [facility] Platelets 266 150 - 450 K/mcL LAB HEMETOLOGY METHOD 06/12/2024 4:26 AM [facility] MPV 8.3 7.4 - 11.4 FL LAB HEMETOLOGY METHOD 06/12/2024 4:26 AM [facility] Neutrophils Relative 93.9(H) 44.0 - 74.0 % LAB HEMETOLOGY METHOD 06/12/2024 4:26 AM [facility] Lymphocytes Relative 3.2(L) 20.0 - 48.0 % LAB HEMETOLOGY METHOD 06/12/2024 4:26 AM [facility] Monocytes Relative 2.8 2.0 - 12.0 % LAB HEMETOLOGY METHOD 06/12/2024 4:26 AM [facility] Eosinophils Relative 0.0 0.0 - 6.0 % LAB HEMETOLOGY METHOD 06/12/2024 4:26 AM [facility] Basophils Relative 0.1 0.0 - 2.0 % LAB HEMETOLOGY METHOD 06/12/2024 4:26 AM [facility] Neutrophils Absolute 15.30(H) 1.80 - 7.80 K/mcL LAB HEMETOLOGY METHOD 06/12/2024 4:26 AM [facility] Lymphocytes Absolute 0.50(L) 1.00 - 3.20 K/mcL LAB HEMETOLOGY METHOD 06/12/2024 4:26 AM [facility] Monocytes Absolute 0.50 0.00 - 0.80 K/mcL LAB HEMETOLOGY METHOD 06/12/2024 4:26 AM [facility] Eosinophils Absolute 0.00 0.00 - 0.50 K/mcL LAB HEMETOLOGY METHOD 06/12/2024 4:26 AM [facility] Basophils Absolute 0.00 0.00 - 0.20 K/mcL LAB HEMETOLOGY METHOD 06/12/2024 4:26 AM EST [facility] Blood Venous blood specimen / Unknown Venipuncture / Unknown 06/12/2024 3:48 AM EST 06/12/2024 4:17 AM EST Emilio Lazar PA LAB BLOOD ORDERA BLES [facility] [address] [place] [address], * Phosphorus (06/12/2024 3:48 AM EST) Phosphorus 3.1 2.5 - 4.5 mg/dL LAB CHEMISTRY METHOD 06/12/2024 4:51 AM EST [facility] Blood Venous blood specimen / Unknown Venipuncture / Unknown 06/12/2024 3:48 AM EST 06/12/2024 4:17 AM EST Emilio Lazar PA LAB BLOOD ORDERA BLES Performing Organization Address City/[facility]/ZIP Co de Phone Number [facility] [address] [place] [phone], * (ABNORMAL) Magnesium (06/12/2024 3:48 AM EST) Magnesium 1.5(L) 1.7 - 2.8 mg/dL LAB CHEMISTRY METHOD 06/12/2024 4:51 AM EST [facility] Blood Venous blood specimen / Unknown Venipuncture / Unknown 06/12/2024 3:48 AM EST 06/12/2024 4:17 AM EST Emilio Lazar PA LAB BLOOD ORDERA BLES [facility] [address] [place] [address], [place] [phone] * (ABNORMAL) Calcium, ionized (06/12/2024 3:48 AM EST) Calcium Ionized 1.10(L) 1.19 - 1.35 mg/dL LAB BLOOD GAS METHOD 06/12/2024 4:24 AM EST [facility] Blood Venous blood specimen / Unknown Venipuncture / Unknown 06/12/2024 3:48 AM EST 06/12/2024 4:17 AM EST Emilio YIP LAB BLOOD ORDERA BLES [facility] [address] [place] [address], * (ABNORMAL) Basic metabolic panel (06/12/2024 3:48 AM EST) Sodium 131(L) 135 - 145 mmol/L LAB CHEMISTRY METHOD 06/12/2024 4:51 AM [facility] Potassium 3.9 3.5 - 5.1 mmol/L LAB CHEMISTRY METHOD 06/12/2024 4:51 AM [facility] Chloride 103 98 - 107 mmol/L LAB CHEMISTRY METHOD 06/12/2024 4:51 AM [facility] CO2 23(L) 24 - 32 mmol/L LAB CHEMISTRY METHOD 06/12/2024 4:51 AM [facility] Anion Gap 5 5 - 14 LAB CHEMISTRY METHOD 06/12/2024 4:51 AM [facility] Glucose 138(H) 70 - 99 mg/dL LAB CHEMISTRY METHOD 06/12/2024 4:51 AM EST [facility] BUN 13 7 - 17 mg/dL LAB CHEMISTRY METHOD 06/12/2024 4:51 AM [facility] Creatinine 0.60 0.50 - 1.00 mg/dL LAB CHEMISTRY METHOD 06/12/2024 4:51 AM [facility] eGFR 99 >=60 mL/min/1. 73m2 LAB CHEMISTRY METHOD 06/12/2024 4:51 AM EST [facility] Comment:Calculation based on the??Chronic Kidney Disease Epidemiology Collaboration (CKD-EPI) equation refit??without adjustment for race. BUN/Creatinine Ratio 21.7(H) 12.0 - 20.0 LAB CHEMISTRY METHOD 06/12/2024 4:51 AM EST [facility] Calcium 8.5 8.4 - 10.2 mg/dL LAB CHEMISTRY METHOD 06/12/2024 4:51 AM EST [facility] Blood Venous blood specimen / Unknown Venipuncture / Unknown 06/12/2024 3:48 AM EST 06/12/2024 4:17 AM EST Emilio YIP LAB BLOOD ORDERA BLES [facility] [address] [place] [address], * (ABNORMAL) Lactate, with reflex (06/11/2024 8:52 PM EST) LACTIC ACID 3.2(H) 0.5 - 2.2 mmol/L LAB BLOOD GAS METHOD 06/11/2024 9:05 PM EST [facility] Blood Venous blood specimen / Unknown Venipuncture / Unknown 06/11/2024 8:52 PM EST 06/11/2024 9:00 PM EST Emilio YIP LAB BLOOD ORDERA BLES [facility] [address] [place] [address], [place] [phone] * (ABNORMAL) Magnesium (06/11/2024 8:52 PM EST) Magnesium 1.4(L) 1.7 - 2.8 mg/dL LAB CHEMISTRY METHOD 06/11/2024 9:26 PM EST [facility] Blood Venous blood specimen / Unknown Venipuncture / Unknown 06/11/2024 8:52 PM EST 06/11/2024 9:00 PM EST Emilio YIP LAB BLOOD ORDERA BLES [facility] [address] [place] [address], [place] [phone] * (ABNORMAL) Phosphorus (06/11/2024 8:52 PM EST) Phosphorus 2.4(L) 2.5 - 4.5 mg/dL LAB CHEMISTRY METHOD 06/11/2024 9:26 PM EST [facility] Blood Venous blood specimen / Unknown Venipuncture / Unknown 06/11/2024 8:52 PM EST 06/11/2024 9:00 PM EST Emilio YIP LAB BLOOD ORDERA BLES [facility] [address] [place] [address], [place] [phone] * (ABNORMAL) Complete blood count (06/11/2024 8:52 PM EST) WBC 13.6(H) 4.0 - 10.5 K/mcL LAB HEMETOLOGY METHOD 06/11/2024 9:06 PM EST [facility] RBC 3.81(L) 4.20 - 5.40 M/mcL LAB HEMETOLOGY METHOD 06/11/2024 9:06 PM EST [facility] Hemoglobin 11.5(L) 12.5 - 16.0 g/dL LAB HEMETOLOGY METHOD 06/11/2024 9:06 PM EST [facility] Hematocrit 34.2(L) 37.0 - 47.0 % LAB HEMETOLOGY METHOD 06/11/2024 9:06 PM EST [facility] MCV 89.7 78.0 - 100.0 FL LAB HEMETOLOGY METHOD 06/11/2024 9:06 PM EST [facility] MCH 30.2 25.0 - 33.0 pcg LAB HEMETOLOGY METHOD 06/11/2024 9:06 PM EST [facility] MCHC 33.7 32.0 - 36.0 g/dL LAB HEMETOLOGY METHOD 06/11/2024 9:06 PM EST [facility] RDW 14.7 12.1 - 16.2 % LAB HEMETOLOGY METHOD 06/11/2024 9:06 PM EST [facility] Platelets 234 150 - 450 K/mcL LAB HEMETOLOGY METHOD 06/11/2024 9:06 PM EST [facility] MPV 7.6 7.4 - 11.4 FL LAB HEMETOLOGY METHOD 06/11/2024 9:06 PM EST [facility] Blood Venous blood specimen / Unknown Venipuncture / Unknown 06/11/2024 8:52 PM EST 06/11/2024 9:00 PM EST Emilio YIP LAB BLOOD ORDERA BLES [facility] [address] [place] [address], * Calcium, ionized (06/11/2024 8:52 PM EST) Calcium Ionized 1.21 1.19 - 1.35 mg/dL LAB BLOOD GAS METHOD 06/11/2024 9:06 PM EST [facility] Blood Venous blood specimen / Unknown Venipuncture / Unknown 06/11/2024 8:52 PM EST 06/11/2024 9:00 PM EST Emilio YIP LAB BLOOD ORDERA BLES [facility] [address] [place] [address], * (ABNORMAL) Basic metabolic panel (06/11/2024 8:52 PM EST) Sodium 135 135 - 145 mmol/L LAB CHEMISTRY METHOD 06/11/2024 9:26 PM [facility] Potassium 4.6 3.5 - 5.1 mmol/L LAB CHEMISTRY METHOD 06/11/2024 9:26 PM [facility] Chloride 101 98 - 107 mmol/L LAB CHEMISTRY METHOD 06/11/2024 9:26 PM [facility] CO2 27 24 - 32 mmol/L LAB CHEMISTRY METHOD 06/11/2024 9:26 PM [facility] Anion Gap 7 5 - 14 LAB CHEMISTRY METHOD 06/11/2024 9:26 PM [facility] Glucose 166 70 - 199 mg/dL LAB CHEMISTRY METHOD 06/11/2024 9:26 PM [facility] BUN 14 7 - 17 mg/dL LAB CHEMISTRY METHOD 06/11/2024 9:26 PM [facility] Creatinine 0.60 0.50 - 1.00 mg/dL LAB CHEMISTRY METHOD 06/11/2024 9:26 PM [facility] eGFR 99 >=60 mL/min/1. 73m2 LAB CHEMISTRY METHOD 06/11/2024 9:26 PM [facility] Comment:Calculation based on the??Chronic Kidney Disease Epidemiology Collaboration (CKD-EPI) equation refit??without adjustment for race. BUN/Creatinine Ratio 23.3(H) 12.0 - 20.0 LAB CHEMISTRY METHOD 06/11/2024 9:26 PM [facility] Calcium 8.5 8.4 - 10.2 mg/dL LAB CHEMISTRY METHOD 06/11/2024 9:26 PM EST [facility] Blood Venous blood specimen / Unknown Venipuncture / Unknown 06/11/2024 8:52 PM EST 06/11/2024 9:00 PM EST Emilio YIP LAB BLOOD ORDERA BLES [facility] [address] [place] [address], * NM CATHETERIZATION/CANNULATION ARTERIAL SAMPLE/MONITORING/TRANSFUSION PERC (06/11/2024 8:43 PM EST) Narrative Emilio Lazar PA - 06/11/2024 8:43 PM EST THEODORA Mendoza ? 06/11/2024 ??8:51 PM Insert arterial line Date/Time: 06/11/2024 8:43 PM Performed by: THEODORA Mendoza Authorized by: THEODORA Mendoza ?? Consent: ??Consent obtained: ??Verbal ??Consent given by: ??Patient ??Risks discussed: ??Bleeding, repeat procedure and pain [place] protocol: ??Imaging studies available: yes (bedside US) [...] Emilio YIP IV THERAPY ORDER JOSIE * POCT Glucose, blood (06/11/2024 7:16 PM EST) Glucose POCT 139 70 - 199 mg/dL 06/11/2024 7:16 PM EST [facility] Comment: Fasting Reference Range: ? 70-99 mg/dL Non-Fasting Reference Range: 70-199 mg/dL Blood Capillary blood specimen / Unknown 06/11/2024 7:16 PM EST 06/11/2024 7:18 PM EST Ramirez Hall MD LAB POINT OF CARE TE ST DOCKED DEVICE UNSOLICITED RESULTS [facility] [address] [place] [address], [place] [phone] * CT Surg Plan Thoracic Spine wo Contrast(Statistics) (06/11/2024 7:00 PM EST) Narrative RIS PACS/VR - 07/11/2024 9:45 AM EST This order has been auto-finalized and does not contain a result. Ramirez Hall MD IMG CT PROCEDURES RIS PACS/VR * (ABNORMAL) POCT VENOUS NA, K, HH (06/11/2024 5:18 PM EST) Sodium Venous POCT 131(L) 135 - 145 mmol/L 06/11/2024 6:01 PM EST [facility] Potassium Venous POCT 4.0 3.5 - 5.1 mmol/L 06/11/2024 6:01 PM EST [facility] Hemoglobin Venous POCT 12.6 12.5 - 16.0 g/dL 06/11/2024 6:01 PM EST [facility] Hematocrit Venous POCT 37 37 - 47 % 06/11/2024 6:01 PM EST [facility] Blood Venous blood specimen / Unknown 06/11/2024 5:18 PM EST 06/11/2024 6:03 PM EST Ramirez Hall MD LAB POINT OF CARE TE ST DOCKED DEVICE UNSOLICITED RESULTS [facility] [address] [place] [address], * Tissue exam (06/11/2024 4:37 PM EST) Final Diagnosis Bone and soft tissue, thoracic spine, T5-T8 excision with decompression: Fragments of benign bone and cartilage with focus of necrotic bone. No malignancy identified. Note: History of previous spine surgeries and specimens at [facility] [id number] and [id number] noted. The current specimen shows disc material and bone with calcifications and small fragment of bone with bone necrosis. These findings can be related to previous history. No malignancy is identified. This case was sent for consultation to [facility], see consultation report below. The following report is issued, as from [facility], where the specimen(s) have been received [...] retropulsion. A complete report, as issued by [facility] has been scanned into the ? media? tab within this patient's electronic medical record (EPIC); please see full scanned report for additional data regarding testing methodology, reference ranges, and possible clinical significance. 06/21/2024 4:22 PM EST [facility] Gross Description A. Spine, Thoracic, EPIDURAL CALCIFICATION: Received in formalin labelled epidural calcification is a 1.3 x 1.2 x 0.4 cm aggregate of roberts-yellow gritty calcified fragments of tissues which are filtered and entirely submitted in A1, multiple pieces following decalcification. GE 06/12/2024 06/21/2024 4:22 PM EST [facility] Disclaimer The technical components of this case [id number] 06/21/2024 4:22 PM EST [facility] Tissue Thoracic spine structure / Unknown 06/11/2024 4:37 PM EST 06/12/2024 6:55 AM EST Ramirez Hall MD LAB PATHOLOGY ORDERTamiko LEO [facility] [address] [place] [address], * (ABNORMAL) Urinalysis with microscopic (06/11/2024 1:21 PM EST) Color, Urine Yellow Yellow, Colorless LAB URINALYSIS - AUTOMATED METHOD 06/11/2024 1:47 PM EST [facility] Clarity, Urine Clear Clear LAB URINALYSIS - AUTOMATED METHOD 06/11/2024 1:47 PM [facility] Specific [place] Urine 1.015 1.005 - 1.030 LAB URINALYSIS - AUTOMATED METHOD 06/11/2024 1:47 PM [facility] pH, Urine 8.0(A) 5.0 - 8.0 pH LAB URINALYSIS - AUTOMATED METHOD 06/11/2024 1:47 PM [facility] Leukocytes, Urine Moderate(A) Negative WBCs/mcL LAB URINALYSIS - AUTOMATED METHOD 06/11/2024 1:47 PM [facility] Nitrite, Urine Positive(A) Negative LAB URINALYSIS - AUTOMATED METHOD 06/11/2024 1:47 PM [facility] Protein, Urine Negative Negative, Trace mg/dL LAB URINALYSIS - AUTOMATED METHOD 06/11/2024 1:47 PM [facility] Glucose, Urine Negative Negative mg/dL LAB URINALYSIS - AUTOMATED METHOD 06/11/2024 1:47 PM [facility] Ketones, Urine Negative Negative mg/dL LAB URINALYSIS - AUTOMATED METHOD 06/11/2024 1:47 PM [facility] Blood, Urine Trace Negative, Trace mg/dL LAB URINALYSIS - AUTOMATED METHOD 06/11/2024 1:47 PM [facility] RBC, Urine 8(H) 0 - 3 /HPF LAB URINALYSIS - AUTOMATED METHOD 06/11/2024 1:47 PM [facility] WBC, Urine 170(H) 0 - 5 /HPF LAB URINALYSIS - AUTOMATED METHOD 06/11/2024 1:47 PM [facility] Bacteria, Urine Present(A) Not Present /HPF LAB URINALYSIS - AUTOMATED METHOD 06/11/2024 1:47 PM [facility] Squamous Epithelial, Urine 0 0 - 5 /HPF LAB URINALYSIS - AUTOMATED METHOD 06/11/2024 1:47 PM [facility] Mucus, Urine Present(A) Not Present /HPF LAB URINALYSIS - AUTOMATED METHOD 06/11/2024 1:47 PM EST [facility] Urine Urine specimen from urinary conduit / Unknown Non-blood Collection / Unknown 06/11/2024 1:21 PM EST 06/11/2024 1:27 PM EST Ramirez Hall MD LAB URINE ORDERABLES [facility] [address] [place] [address], documented in this encounter Visit Diagnoses Diagnosis Thoracic spinal stenosis- Primary Spinal stenosis of thoracic region Chronic bilateral thoracic back pain Thoracic myelopathy Hypotension after procedure documented in this encounter Admitting Diagnoses Diagnosis Thoracic spinal stenosis Spinal stenosis of thoracic region documented in this encounter Administered Medications Inactive Administered Medications - up to 3 most recent administrations Medication Order MAR Action Action Date Dose Rate Site acetaminophen (TYLENOL) tablet 1,000 mg 1,000 mg, oral, Every 6 hours scheduled, First dose on 06/11/24 at 0000 Given 06/12/2024 6:00 AM EST 1,000 mg Given 06/11/2024 11:51 PM EST 1,000 mg Given 06/11/2024 8:30 PM EST 1,000 mg acetaminophen (TYLENOL) tablet 650 mg 650 mg, oral, Every 6 hours scheduled, First dose (after last modification) on Tue06/12/24 at 1200 Given 06/14/2024 5:47 AM EST 650 mg Given 06/13/2024 11:59 PM EST 650 mg Given 06/13/2024 5:50 PM EST 650 mg acetaminophen (TYLENOL) tablet 650 mg 650 mg, oral, Every 6 hours scheduled, First dose (after last modification) on Soledad 06/14/24 at 1200, For 3 days Given 06/17/2024 9:24 AM EST 650 mg Given 06/16/2024 9:15 PM EST 650 mg Given 06/16/2024 3:43 PM EST 650 mg acetaminophen (TYLENOL) tablet 650 mg 650 mg, oral, Every 6 hours PRN, mild pain, moderate pain, headaches, Starting on Tue06/19/24 at 1028 Given 06/24/2024 8:36 AM EST 650 mg Given 06/22/2024 3:52 AM EST 650 mg Given 06/20/2024 12:30 PM EST 650 mg ALPRAZolam (XANAX) tablet 0.5 mg 0.5 mg, oral, Nightly PRN, anxiety, Starting on Tue06/20/24 at 1546 Given 06/23/2024 10:49 PM EST 0.5 mg Given 06/22/2024 10:40 PM EST 0.5 mg Given 06/21/2024 9:54 PM EST 0.5 mg bisacodyL (DULCOLAX) suppository 10 mg 10 mg, rectal, Daily PRN, constipation, Starting on Tue06/11/24 at 0851 Given 06/15/2024 3:12 PM EST 10 mg Given 06/14/2024 5:39 PM EST 10 mg Given 06/13/2024 5:52 PM EST 10 mg ceFAZolin (ANCEF) 2 g in sterile water 20 mL IV syringe 2 g, intravenous, Administer over 3 Minutes, Every 8 hours, First dose on Tue06/12/24 at 0145, For 2 doses, Indication: Surgical Site Given 06/12/2024 9:50 AM EST 2 g Given 06/12/2024 1:24 AM EST 2 g cevimeline (EVOXAC) capsule 30 mg 30 mg, oral, 3 times daily, First dose on Tue06/11/24 at 0900, Drug Name: Cevimeline, Form: capsule, Length of Therapy: Indefinite, How soon needed? (normally 72 hrs needed to procure): 0-24 hrs, Reason for Non-Formulary: Not presented in the hospital Given 06/25/2024 9:26 AM EST 30 mg Given 06/24/2024 11:09 PM EST 30 mg Given 06/24/2024 8:40 AM EST 30 mg dexAMETHasone (DECADRON) injection 4 mg 4 mg, intravenous, Every 6 hours scheduled, First dose on Tue06/11/24 at 1945 Given 06/24/2024 5:05 AM EST 4 mg Given 06/23/2024 10:33 PM EST 4 mg Given 06/23/2024 5:40 PM EST 4 mg dexAMETHasone (DECADRON) injection 4 mg 4 mg, intravenous, Every 8 hours scheduled, First dose (after last modification) on Tue06/24/24 at 1400 Given 06/25/2024 2:38 PM EST 4 mg Given 06/25/2024 7:02 AM EST 4 mg Given 06/24/2024 11:01 PM EST 4 mg dexAMETHasone (DECADRON) tablet 4 mg 4 mg, oral, Every 6 hours scheduled, First dose on Tue06/10/24 at 1930 Given 06/11/2024 5:16 AM EST 4 mg Given 06/11/2024 12:21 AM EST 4 mg Given 06/10/2024 9:00 PM EST 4 mg dextrose (D50W) 50% injection 12.5 g 12.5 g, intravenous, Every 15 min PRN, low blood sugar, moderate hypoglycemia *Patient is Unconscious, NPO, unable to swallow: BG 54 - 69 mg/dl*, Starting on Tue06/11/24 at 2106 dextrose (D50W) 50% injection 25 g 25 g, intravenous, Every 15 min PRN, low blood sugar, severe hypoglycemia *Patient is Unconscious, NPO, unable to swallow: BG LESS than 54 mg/dL*, Starting on Tue06/11/24 at 2106 dextrose 15 gram/60 mL oral solution 15 g 15 g, oral, Every 15 min PRN, low blood sugar, hypoglycemia *Patient conscious AND able to drink and swallow safely*, Starting on Tue06/11/24 at 2106 dextrose 15 gram/60 mL oral solution 30 g 30 g, oral, Every 15 min PRN, low blood sugar, hypoglycemia *Patient conscious AND able to drink and swallow safely*, Starting on Tue06/11/24 at 2106 docusate sodium (COLACE) capsule 100 mg 100 mg, oral, 2 times daily, First dose on Tue06/13/24 at 2130 Given 06/25/2024 9:20 AM EST 100 mg Given 06/24/2024 8:37 AM EST 100 mg Given 06/23/2024 10:33 PM EST 100 mg doxepin (SINEquan) capsule 100 mg 100 mg, oral, Nightly, First dose (after last modification) on Tue06/18/24 at 2000 Given 06/24/2024 11:[address] 100 mg Given 06/23/2024 10:28 PM EST 100 mg Given 06/22/2024 10:37 PM EST 100 mg doxepin (SINEquan) capsule 50 mg 50 mg, oral, Nightly, First dose on 06/10/24 at 2100 Given 06/17/2024 10:26 PM EST 50 mg Given 06/16/2024 9:15 PM EST 50 mg Given 06/15/2024 9:20 PM EST 50 mg DULoxetine (CYMBALTA) DR capsule 60 mg 60 mg, oral, Daily, First dose on Tue06/11/24 at 0900, Do not crush or chew. Given 06/25/2024 9:18 AM EST 60 mg Given 06/24/2024 8:36 AM EST 60 mg Given 06/23/2024 10:12 AM EST 60 mg famotidine (PEPCID) tablet 20 mg 20 mg, oral, Daily, First dose on Tue06/11/24 at 0900, For 355 days Given 06/25/2024 9:20 AM EST 20 mg Given 06/24/2024 8:35 AM EST 20 mg Given 06/23/2024 10:12 AM EST 20 mg fentaNYL (PF) (SUBLIMAZE) injection 50 mcg 50 mcg, intravenous, Every 1 hour PRN, severe pain, or CPOT >5, Starting on Tue06/11/24 at 1926 Given 06/11/2024 7:51 PM EST 50 mcg fentaNYL (PF) (SUBLIMAZE) injection 50 mcg 50 mcg, intravenous, Once, On Tue06/11/24 at 2045, For 1 dose Given 06/11/2024 8:15 PM EST 50 mcg gabapentin (NEURONTIN) capsule 500 mg 500 mg, oral, Every 8 hours, First dose (after last modification) on Tue06/12/24 at 1530 Given 06/25/2024 9:20 AM EST 500 mg Given 06/25/2024 1:25 AM EST 500 mg Given 06/24/2024 5:34 PM EST 500 mg gabapentin (NEURONTIN) capsule 800 mg 800 mg, oral, Every 12 hours scheduled, First dose on 06/10/24 at 2100 Given 06/12/2024 9:52 AM EST 800 mg Given 06/11/2024 8:28 PM EST 800 mg Given 06/11/2024 9:01 AM EST 800 mg Glucagon HCl (rDNA) injection 1 mg 1 mg, intramuscular, Once as needed, low blood sugar, severe hypoglycemia, Starting on Tue06/11/24 at 2106, For 1 dose heparin (UFH) injection 5,000 Units 5,000 Units, subcutaneous, Every 8 hours scheduled, First dose on Tue06/17/24 at 1400, Enter Indication for use of heparin (UFH) instead of enoxaparin (LOVENOX): (free text): Surgeon Preference in Post-op Phase, Indication: VTE Prophylaxis, Indications: Prophylaxis of Venous Thromboembolism Given 06/25/2024 9:21 AM EST 5,000 Units Left Outer Thigh Given 06/25/2024 1:26 AM EST 5,000 Units R ight Upper Arm (Back) Given 06/24/2024 5:34 PM EST 5,000 Units L eft Outer Thigh hydrALAZINE (APRESOLINE) injection 10 mg 10 mg, intravenous, Every 4 hours PRN, systolic BP greater than:, sbp > 160, Starting on Soledad 06/14/24 at 1753 Given 06/17/2024 6:24 AM EST 10 mg Given 06/16/2024 9:24 PM EST 10 mg Given 06/15/2024 6:11 AM EST 10 mg hydrALAZINE (APRESOLINE) tablet 50 mg 50 mg, oral, 2 times daily, First dose on Tue06/10/24 at 2100, Hold for SBP < 90 Given 06/11/2024 9:01 AM EST 50 mg Given 06/10/2024 10:21 PM EST 50 mg hydrALAZINE (APRESOLINE) tablet 50 mg 50 mg, oral, 2 times daily, First dose on Tue06/18/24 at 2100 Given 06/19/2024 11:05 AM EST 50 mg Given 06/18/2024 9:01 PM EST 50 mg hydrALAZINE (APRESOLINE) tablet 75 mg 75 mg, oral, 2 times daily, First dose (after last modification) on Tue06/19/24 at 2100, Hold for BP < 110 Given 06/25/2024 9:19 AM EST 75 mg Given 06/24/2024 11:01 PM EST 75 mg Given 06/24/2024 8:35 AM EST 75 mg HYDROmorphone (DILAUDID) injection 0.5 mg 0.5 mg, intravenous, Every 3 hours PRN, severe pain, or CPOT >5, Starting on Tue06/11/24 at 2137 Given 06/11/2024 9:40 PM EST 0.5 mg HYDROmorphone (DILAUDID) injection 0.5 mg 0.5 mg, intravenous, Every 2 hours PRN, severe pain, or CPOT >5, Starting on Tue06/11/24 at 2239 Given 06/13/2024 5:50 PM EST 0.5 mg Given 06/13/2024 2:18 PM EST 0.5 mg Given 06/13/2024 5:28 AM EST 0.5 mg hydrOXYzine HCL (ATARAX) tablet 10 mg 10 mg, oral, Every 8 hours PRN, itching, Starting on Tue06/17/24 at 0857 Given 06/18/2024 5:11 AM EST 10 mg Given 06/17/2024 10:27 PM EST 10 mg Given 06/17/2024 2:14 PM EST 10 mg insulin lispro injection 1-6 Units 1-6 Units, subcutaneous, 3 times daily before meals, First dose on Tue06/12/24 at 0730, Indication: Total Daily Dose (TDD) LESS than 40 units Correction Scale: Low Dose Administer with meal and/or mealtime dose of insulin to correct high blood glucose If mealtime insulin dose not given (e.g. patient NPO or not eating), still administer correction factor for high blood glucose lactated Ringer's bolus 1,000 mL 1,000 mL, intravenous, Once, On Tue06/11/24 at 1945, For 1 dose New Bag 06/11/2024 7:30 PM EST 1,000 mL lidocaine (PF) (XYLOCAINE-MPF) 1 % injection - ADS Override Pull Starting on Tue06/11/24 at 1933, For 1 dose, Created by cabinet override Given by Other 06/11/2024 7:45 PM EST 50 mg LORazepam (ATIVAN) tablet 0.5 mg 0.5 mg, oral, Once as needed, anxiety, Starting on Tue06/17/24 at 0013, For 1 dose Given 06/17/2024 12:34 AM EST 0.5 mg LORazepam (ATIVAN) tablet 0.5 mg 0.5 mg, oral, Daily PRN, anxiety, Starting on 06/18/24 at 1402 Given 06/20/2024 12:31 PM EST 0.5 mg Given 06/19/2024 11:17 PM EST 0.5 mg magnesium sulfate 2 gram/50 mL (4 %) IVPB 2 g 2 g, intravenous, at 25 mL/hr, Administer over 2 Hours, Once, On Tue06/12/24 at 1300, For 1 dose Rate/Dose Verify 06/12/2024 5:00 PM EST 25 mL/hr Rate/Dose Verify 06/12/2024 4:00 PM EST 25 mL/h r Rate/Dose Verify 06/12/2024 3:00 PM EST 25 mL/h r magnesium sulfate 2 gram/50 mL (4 %) IVPB 2 g 2 g, intravenous, at 25 mL/hr, Administer over 2 Hours, Once, On Tue06/13/24 at 0900, For 1 dose New Bag 06/13/2024 9:42 AM EST 2 g 25 mL/hr methylPREDNISolone (MEDROL) tablet 4 mg 4 mg, oral, 4 times daily with meals and nightly, First dose (after last reorder) on 06/10/24 at 2100, For 2 doses Given 06/11/2024 9:04 AM EST 4 mg Given 06/10/2024 10:22 PM EST 4 mg metoprolol tartrate (LOPRESSOR) tablet 12.5 mg 12.5 mg, oral, 2 times daily, First dose (after last modification) on 06/10/24 at 2115, Hold for HR < 50, BP < 90 Given 06/11/2024 9:04 AM EST 12.5 mg Given 06/10/2024 10:22 PM EST 12.5 mg nitrofurantoin (macrocrystal-monohydrate) (MACROBID) capsule 100 mg 100 mg, oral, Every 24 hours, First dose (after last reorder) on 06/17/24 at 1230, For 5 days, Indication: Urinary Tract/Genitourinary Given 06/21/2024 12:41 PM EST 100 mg Given 06/20/2024 12:30 PM EST 100 mg Given 06/19/2024 11:49 AM EST 100 mg oxyCODONE (ROXICODONE) immediate release tablet 10 mg 10 mg, oral, Every 6 hours PRN, severe pain, Starting on Tue06/13/24 at 2004 Given 06/25/2024 2:52 PM EST 10 mg Given 06/25/2024 12:31 AM EST 10 mg Given 06/23/2024 10:10 AM EST 10 mg oxyCODONE (ROXICODONE) immediate release tablet 5 mg 5 mg, oral, Every 4 hours PRN, moderate pain, severe pain, Starting on Tue06/10/24 at 1954, For 1 day Given 06/11/2024 5:16 AM EST 5 mg Given 06/10/2024 10:22 PM EST 5 mg oxyCODONE (ROXICODONE) immediate release tablet 5 mg 5 mg, oral, Every 6 hours PRN, moderate pain, Starting on Tue06/13/24 at 2004 Given 06/24/2024 2:13 PM EST 5 mg Given 06/17/2024 10:26 PM EST 5 mg phenylephrine (JAXON-SYNEPHRINE) 20 mg/250 mL (80 mcg/mL) infusion 0.5-5 mcg/kg/min ? 81.6 kg (30.6-306 mL/hr), intravenous, Continuous, Starting on Tue06/11/24 at 1945, GOAL EFFECT: MAP GREATER than 85 mmHg INITIAL RATE: 0.5 mcg/kg/min TITRATION DOSE: 0.1 mcg/kg/min TITRATION FREQUENCY: 5 mins CONTACT PRESCRIBER: -HR LESS than 60 BPM -HR GREATER than 120 BPM -SBP LESS than 80 mmHg *Individual cases may deviate from parameters and would REQUIRE an order from the provider documented in the patient record* Rate/Dose Verify 06/13/2024 3:00 AM EST 0.5 mcg/kg/min 30.6 mL/hr Rate/Dose Change 06/13/2024 2:12 AM EST 0.5 mcg/kg/min 30. 6 mL/hr Rate/Dose Verify 06/13/2024 2:00 AM EST 0.6 mcg/kg/min 36. 7 mL/hr polyethylene glycol (MIRALAX) packet 17 g 17 g, oral, Daily, First dose on Tue06/10/24 at 2045, Bowel Regimen - for prevention of constipation Given 06/14/2024 8:39 AM EST 17 g Given 06/13/2024 8:57 AM EST 17 g Given 06/12/2024 9:54 AM EST 17 g senna (SENOKOT) tablet 17.2 mg 17.2 mg (2 tablet), oral, Nightly, First dose on 06/10/24 at 2100, Bowel Regimen - for prevention of constipation Given 06/13/2024 9:58 PM EST 17.2 mg Given 06/12/2024 8:04 PM EST 17.2 mg Given 06/11/2024 8:29 PM EST 17.2 mg senna (SENOKOT) tablet 17.2 mg 17.2 mg (2 tablet), oral, 2 times daily, First dose (after last modification) on Soledad 06/14/24 at 0900, Bowel Regimen - for prevention of constipation Given 06/25/2024 9:19 AM EST 17.2 mg Given 06/23/2024 10:29 PM EST 17.2 mg Given 06/23/2024 10:10 AM EST 17.2 mg sodium chloride 0.9 % bolus 1,000 mL 1,000 mL, intravenous, Once, On Tue06/11/24 at 1930, For 1 dose New Bag 06/11/2024 8:30 PM EST 1,000 mL sodium chloride 0.9 % bolus 1,000 mL 1,000 mL, intravenous, Once, On Tue06/11/24 at 1945, For 1 dose New Bag 06/11/2024 7:59 PM EST 1,000 mL sodium chloride 0.9 % bolus 1,000 mL 1,000 mL, intravenous, Once, On Tue06/12/24 at 0200, For 1 dose New Bag 06/12/2024 1:46 AM EST 1,000 mL sodium chloride 0.9 % flush 10 mL 10 mL, intravenous, 2 times daily, First dose on 06/10/24 at 2100 Given 06/25/2024 9:25 AM EST 10 mL Given 06/24/2024 11:05 PM EST 10 mL Given 06/24/2024 8:43 AM EST 10 mL sodium chloride 0.9 % flush 10 mL 10 mL, intravenous, As needed, line care, Starting on 06/10/24 at 1817 sodium chloride 0.9 % infusion 125 mL/hr, intravenous, Continuous, Starting on Tue06/10/24 at 2015, May finish IVF bag from the OR before starting this IVF order. Please discontinue this IVFs order when pt is tolerating PO fluids well. Rate/Dose Verify 06/12/2024 9:00 AM EST 125 mL/hr 125 mL/hr Rate/Dose Verify 06/12/2024 8:00 AM EST 125 mL/hr 125 mL/ hr Rate/Dose Verify 06/12/2024 7:00 AM EST 125 mL/hr 125 mL/ hr sodium phosphates 30 mmol in sodium chloride 0.9 % 500 mL IVPB 30 mmol, intravenous, at 83.3 mL/hr, Administer over 6 Hours, Once, On Soledad 06/14/24 at 0615, For 1 dose New Bag 06/14/2024 10:40 AM EST 30 mmol 83.3 mL/hr sodium phosphates 45 mmol in sodium chloride 0.9 % 500 mL IVPB 45 mmol, intravenous, at 83.3 mL/hr, Administer over 6 Hours, Once, On Tue06/13/24 at 0900, For 1 dose New Bag 06/13/2024 9:41 AM EST 45 mmol 83.3 mL/hr tiZANidine (ZANAFLEX) tablet 2 mg 2 mg, oral, Daily, First dose on Tue06/11/24 at 0800 Given 06/25/2024 9:00 AM EST 2 mg Given 06/24/2024 8:36 AM EST 2 mg Given 06/23/2024 10:10 AM EST 2 mg traZODone (DESYREL) tablet 100 mg 100 mg, oral, Nightly, First dose (after last modification) on Tue06/18/24 at 2000 Given 06/24/2024 11:[address] 100 mg Given 06/23/2024 10:30 PM EST 100 mg Given 06/22/2024 10:41 PM EST 100 mg traZODone (DESYREL) tablet 75 mg 75 mg, oral, Nightly PRN, sleep, Starting on 06/10/24 at 2037 Given 06/17/2024 10:26 PM EST 75 mg Given 06/16/2024 9:25 PM EST 75 mg Given 06/15/2024 9:53 PM EST 75 mg triamterene-hydroCHLOROthiazide (DYAZIDE) 37.5-25 mg per capsule 1 capsule 1 capsule, oral, Daily, First dose on Tue06/11/24 at 0900, Hold for SBP < 90 Given 06/11/2024 9:03 AM EST 1 capsul e triamterene-hydroCHLOROthiazide (DYAZIDE) 37.5-25 mg per capsule 1 capsule 1 capsule, oral, Daily, First dose on 06/15/24 at 0900 Given 06/25/2024 9:20 AM EST 1 capsule Given 06/24/2024 8:36 AM EST 1 capsule Given 06/23/2024 10:11 AM EST 1 capsule valsartan (DIOVAN) tablet 160 mg 160 mg, oral, Daily, First dose on Soledad 06/14/24 at 1445 Given 06/16/2024 9:20 AM EST 160 mg Given 06/15/2024 8:01 AM EST 160 mg Given 06/14/2024 5:40 PM EST 160 mg valsartan (DIOVAN) tablet 320 mg 320 mg, oral, Daily, First dose on 06/11/24 at 0900, Hold for SBP < 90 Given 06/11/2024 9:03 AM EST 320 mg valsartan (DIOVAN) tablet 320 mg 320 mg, oral, Daily, First dose (after last modification) on 06/17/24 at 0915 Given 06/25/2024 9:18 AM EST 320 mg Given 06/24/2024 8:36 AM EST 320 mg Given 06/23/2024 10:11 AM EST 320 mg documented in this encounter Discontinued Medications Medication Sig Discontinue Reason Start Date End Da te hydrALAZINE (APRESOLINE) 50 mg tablet Take 1 tablet (50 mg total) by mouth 2 (two) times a day. 05/31/2024 06/23/2024 nitrofurantoin, macrocrystal-monohyd rate, (MACROBID) 100 mg capsule Take 1 capsule (100 mg total) by mouth 1 (one) time each day for 5 days. Macrobid daily until varma discontinued for voiding trial Stop Taking at Discharge 06/23/2024 06/23/2024 acetaminophen (TYLENOL) 500 mg tablet Take 2 tablets (1,000 mg total) by mouth every 6 (six) hours for 10 days. Stop Taking at Discharge 05/25/2024 06/25/2024 methylPREDNISolone (MEDROL) 4 mg tablet Take 1 [...] each day with breakfast for 1 day. Stop Taking at Discharge 05/31/2024 06/25/2024 documented as of this encounter Active and Recently Administered Medications Times are shown in EST. Scheduled Medication Order 06/23/2024 06/24/2024 06/25/2024 cevimeline (EVOXAC) capsule 30 mg 30 mg, oral, 3 times daily, First dose on Tue06/11/24 at 0900, Drug Name: Cevimeline, Form: capsule, Length of Therapy: Indefinite, How soon needed? (normally 72 hrs needed to procure): 0-24 hrs, Reason for Non-Formulary: Not presented in the hospital 0055 (Not Given - Provider: Danita Mccall LPN - Reason: Patient/Resident/Age nt refused - education provided )1016 (Given - Provider: Marisol Mcdonnell RN)1420 (Not Given - Provider: Marisol Mcdonnell RN - Reason: Patient/Resident/Age nt refused - education provided )2252 (Given - Provider: Sherrie Phoenix RN) 0840 (Given - Provider: Marisol Mcdonnell RN)1414 (Not Given - Provider: Marisol Mcdonnell RN - Reason: Patient/Resident/Age nt refused - education provided )2309 (Given - Provider: Shabana Zamora RN) 0926 (Given - Provider: Mari Murcia LPN)1439 (Not Given - Provider: Mari Murcia LPN - Reason: Other - Comment: not required at this time) dexAMETHasone (DECADRON) injection 4 mg (CANCELED) 4 mg, intravenous, Every 6 hours scheduled, First dose on Tue06/11/24 at 1945 0456 (Given - Provider: Shabana Zamora RN)1013 (Given - Provider: Marisol Starkel, RN)1740 (Given - Provider: Marisol Mcdonnell RN)2233 (Given - Provider: Sherrie Phoenix, CRISTIANA) 0505 (Given - Provider: Sherrie Phoenix RN) dexAMETHasone (DECADRON) injection 4 mg 4 mg, intravenous, Every 8 hours scheduled, First dose (after last modification) on Tue06/24/24 at 1400 1410 (Given - Provider: Marisol Mcdonnell RN)2301 (Given - Provider: Shabana Zamora, RN) 0702 (Given - Provider: Kusum Harrell RN)1438 (Given - Provider: Tl Trujillo RN) docusate sodium (COLACE) capsule 100 mg 100 mg, oral, 2 times daily, First dose on Tue06/13/24 at 2130 1010 (Given - Provider: Marisol Mcdonnell RN)2233 (Given - Provider: Sherrie Phoenix RN) 0837 (Given - Provider: Marisol Mcdonnell RN)2304 (Not Given - Provider: Shabana Zamora RN - Reason: Patient/Resident/Age nt refused - education provided ) 0920 (Given - Provider: Mari Murcia, SCORING MACHINE OPERATOR) doxepin (SINEquan) capsule 100 mg 100 mg, oral, Nightly, First dose (after last modification) on Tue06/18/24 at 2000 2228 (Given - Provider: Sherrie Phoenix RN) 2300 (Given - Provider: Shabana Zamora RN) DULoxetine (CYMBALTA) DR capsule 60 mg 60 mg, oral, Daily, First dose on Tue06/11/24 at 0900, Do not crush or chew. 1012 (Given - Provider: Marisol Mcdonnell RN) 0836 (Given - Provider: Marisol Mcdonnell RN) 0918 (Given - Provider: Mari Murcia, SCORING MACHINE OPERATOR) famotidine (PEPCID) tablet 20 mg 20 mg, oral, Daily, First dose on Tue06/11/24 at 0900, For 355 days 1012 (Given - Provider: Marisol Mcdonnell RN) 0835 (Given - Provider: Marisol Mcdonnell RN) 0920 (Given - Provider: Mari Murcia, SCORING MACHINE OPERATOR) gabapentin (NEURONTIN) capsule 500 mg 500 mg, oral, Every 8 hours, First dose (after last modification) on Tue06/12/24 at 1530 0010 (Given - Provider: Danita Mccall LPN)1012 (Given - Provider: Marisol Mcdonnell RN)1740 (Given - Provider: Marisol Mcdonnell RN) 0132 (Given - Provider: Fidel Hollingsworth LPN)0836 (Given - Provider: Marisol Mcdonnell RN)1734 (Given - Provider: Marisol Mcdonnell RN) 0125 (Given - Provider: Shabana Zamora, CRISTIANA)0920 (Given - Provider: Mari Murcia LPN) heparin (UFH) injection 5,000 Units 5,000 Units, subcutaneous, Every 8 hours scheduled, First dose on Tue06/17/24 at 1400, Enter Indication for use of heparin (UFH) instead of enoxaparin (LOVENOX): (free text): Surgeon Preference in Post-op Phase, Indication: VTE Prophylaxis, Indications: Prophylaxis of Venous Thromboembolism 0010 (Given - Provider: Danita Mccall LPN)1012 (Given - Provider: Marisol Mcdonnell RN)1740 (Given - Provider: Marisol Mcdonnell RN) 0132 (Given - Provider: Fidel Hollingsworth LPN)0836 (Given - Provider: Marisol Mcdonnell RN)1734 (Given - Provider: Marisol Mcdonnell RN) 0126 (Given - Provider: Shabana Zamora RN)0921 (Given - Provider: Mari Murcia LPN) hydrALAZINE (APRESOLINE) tablet 75 mg 75 mg, oral, 2 times daily, First dose (after last modification) on Tue06/19/24 at 2100, Hold for BP < 110 1011 (Given - Provider: Marisol Mcdonnell RN)2226 (Not Given - Provider: Sherrie [place] RN - Reason: Order parameters not met) 0835 (Given - Provider: Marisol Mcdonnell RN)2301 (Given - Provider: Shabana Zamora RN) 0919 (Given - Provider: Mari Murcia LPN) insulin lispro injection 1-6 Units 1-6 Units, subcutaneous, 3 times daily before meals, First dose on Tue06/12/24 at 0730, Indication: Total Daily Dose (TDD) LESS than 40 units Correction Scale: Low Dose Administer with meal and/or mealtime dose of insulin to correct high blood glucose If mealtime insulin dose not given (e.g. patient NPO or not eating), still administer correction factor for high blood glucose 0908 (Not Given - Provider: Marisol Mcdonnell RN - Reason: Order parameters not met - Comment: BS 121)1251 (Not Given - Provider: Marisol Mcdonnell RN - Reason: Order parameters not met - Comment: BS 124)1812 (Not Given - Provider: Marisol Mcdonnell RN - Reason: Order parameters not met - Comment: BS 117) 0840 (Not Given - Provider: Marisol Mcdonnell RN - Reason: Order parameters not met - Comment: BS 116)1217 (Not Given - Provider: Marisol Mcdonnell RN - Reason: Order parameters not met - Comment: BS 102)1728 (Not Given - Provider: Marisol Mcdonnell RN - Reason: Order parameters not met - Comment: Bs 111) 0927 (Not Given - Provider: Mari uMrcia LPN - Reason: Other - Comment: fsbs taken after patient ate meal)1237 (Not Given - Provider: Mari Murcia LPN - Reason: Order parameters not met)1630 (Due) polyethylene glycol (MIRALAX) packet 17 g 17 g, oral, Daily, First dose on Tue06/10/24 at 2045, Bowel Regimen - for prevention of constipation 1013 (Not Given - Provider: Marisol Mcdonnell RN - Reason: Patient/Resident/Age nt refused - education provided ) 0842 (Not Given - Provider: Marisol Mcdonnell RN - Reason: Patient/Resident/Age nt refused - education provided ) 0917 (Not Given - Provider: Mari Murcia LPN - Reason: Patient/Resident/Age nt refused - education provided ) senna (SENOKOT) tablet 17.2 mg 17.2 mg (2 tablet), oral, 2 times daily, First dose (after last modification) on Soledad 06/14/24 at 0900, Bowel Regimen - for prevention of constipation 1010 (Given - Provider: Marisol Mcdonnell RN)2229 (Given - Provider: Sherrie [place] RN) 0842 (Not Given - Provider: Marisol Mcdonnell RN - Reason: Patient/Resident/Age nt refused - education provided )2304 (Not Given - Provider: Shabana Zamora RN - Reason: Patient/Resident/Age nt refused - education provided ) 0919 (Given - Provider: Mari Murcia LPN) sodium chloride 0.9 % flush 10 mL(Linked Group 1) 10 mL, intravenous, 2 times daily, First dose on Tue06/10/24 at 2100 0014 (Not Given - Provider: Danita Mccall LPN - Reason: Patient/Resident/Age nt refused - education provided )1024 (Given - Provider: Marisol Mcdonnell RN)2244 (Given - Provider: Sherrie [place] RN) 0843 (Given - Provider: Marisol Mcdonnell RN)2305 (Given - Provider: Shabana Zamora RN) 0925 (Given - Provider: Mari Murcia, SCORING MACHINE OPERATOR) tiZANidine (ZANAFLEX) tablet 2 mg 2 mg, oral, Daily, First dose on Tue06/11/24 at 0800 1010 (Given - Provider: Marisol Mcdonnell RN) 0836 (Given - Provider: Marisol Mcdonnell RN) 0900 (Given - Provider: Mari Murcia, SCORING MACHINE OPERATOR) traZODone (DESYREL) tablet 100 mg 100 mg, oral, Nightly, First dose (after last modification) on Tue06/18/24 at 2000 2230 (Given - Provider: Sherrie [place] RN) 2301 (Given - Provider: Shabana Zamora RN) triamterene-hydroCHLOROth iazide (DYAZIDE) 37.5-25 mg per capsule 1 capsule 1 capsule, oral, Daily, First dose on Tue06/15/24 at 0900 1011 (Given - Provider: Marisol Mcdonnell RN) 0836 (Given - Provider: Marisol Mcdonnell RN) 0920 (Given - Provider: Mari Murcia LPN) valsartan (DIOVAN) tablet 320 mg 320 mg, oral, Daily, First dose (after last modification) on Tue06/17/24 at 0915 1011 (Given - Provider: Marisol Mcdonnell RN) 0836 (Given - Provider: Marisol Mcdonnell RN) 0918 (Given - Provider: Mari Murcia LPN) PRN Medication Order 06/23/2024 06/24/2024 06/25/2024 acetaminophen (TYLENOL) tablet 650 mg 650 mg, oral, Every 6 hours PRN, mild pain, moderate pain, headaches, Starting on Tue06/19/24 at 1028 0836 (Given - Provider: Marisol Mcdonnlel RN) ALPRAZolam (XANAX) tablet 0.5 mg 0.5 mg, oral, Nightly PRN, anxiety, Starting on Tue06/20/24 at 1546 2249 (Given - Provider: Sherrie [place] RN) bisacodyL (DULCOLAX) suppository 10 mg 10 mg, rectal, Daily PRN, constipation, Starting on Tue06/11/24 at 0851 dextrose (D50W) 50% injection 12.5 g 12.5 g, intravenous, Every 15 min PRN, low blood sugar, moderate hypoglycemia *Patient is Unconscious, NPO, unable to swallow: BG 54 - 69 mg/dl*, Starting on Tue06/11/24 at 2106 dextrose (D50W) 50% injection 25 g 25 g, intravenous, Every 15 min PRN, low blood sugar, severe hypoglycemia *Patient is Unconscious, NPO, unable to swallow: BG LESS than 54 mg/dL*, Starting on Tue06/11/24 at 2106 dextrose 15 gram/60 mL oral solution 15 g 15 g, oral, Every 15 min PRN, low blood sugar, hypoglycemia *Patient conscious AND able to drink and swallow safely*, Starting on Tue06/11/24 at 2106 dextrose 15 gram/60 mL oral solution 30 g 30 g, oral, Every 15 min PRN, low blood sugar, hypoglycemia *Patient conscious AND able to drink and swallow safely*, Starting on Tue06/11/24 at 2106 Glucagon HCl (rDNA) injection 1 mg 1 mg, intramuscular, Once as needed, low blood sugar, severe hypoglycemia, Starting on Tue06/11/24 at 2106, For 1 dose hydrALAZINE (APRESOLINE) injection 10 mg 10 mg, intravenous, Every 4 hours PRN, systolic BP greater than:, sbp > 160, Starting on Soledad 06/14/24 at 1753 oxyCODONE (ROXICODONE) immediate release tablet 10 mg 10 mg, oral, Every 6 hours PRN, severe pain, Starting on Tue06/13/24 at 2004 1010 (Given - Provider: Marisol Mcdonnell RN) 0031 (Given - Provider: Kusum Harrell RN)1452 (Given - Provider: Mari Murcia LPN) oxyCODONE (ROXICODONE) immediate release tablet 5 mg 5 mg, oral, Every 6 hours PRN, moderate pain, Starting on Tue06/13/24 at 2004 1413 (Given - Provider: Marisol Mcdonnell RN) sodium chloride 0.9 % flush 10 mL(Linked Group 1) 10 mL, intravenous, As needed, line care, Starting on 06/10/24 at 1817 Linked Groups Order Group 1: Insert peripheral IV (CANCELED) STAT, Once, On Tue06/10/24 at 181, For 1 occurrence And Maintain IV access (CANCELED) Until discontinued, Starting on 06/10/24 at 181, Until Specified And Saline lock IV (CANCELED) Routine, Once, On Tue06/10/24 at 181, For 1 occurrence And sodium chloride 0.9 % flush 10 mLJump to med 10 mL, intravenous, 2 times daily, First dose on 06/10/24 at 2100 And sodium chloride 0.9 % flush 10 mLJump to med 10 mL, intravenous, As needed, line care, Starting on Tue06/10/24 at 1817 documented in this encounter Orders Medications Ordered That Amor ht Not Have Been Administered Count Last Ordered Date First Ordered Date doxepin (SINEquan) capsule 50 mg 1 06/18/20 traZODone (DESYREL) tablet 75 mg 2 06/18/20 24 06/10/2024 LORazepam (ATIVAN) tablet 0.5 mg 1 06/17/20 nitrofurantoin (macrocrystal -monohydrate) (MACROBID) capsule 100 mg 1 06/17/2024 metoprolol tartrate (LOPRESS OR) injection 5 mg 1 06/14/2024 magnesium sulfate 2 gram/50 mL (4 %) IVPB - ADS Override Pull 1 06/13/2024 dextrose (D50W) 50% injection 12.5 g 1 05/21 dextrose (D50W) 50% injection 25 g 1 2023 dextrose 15 gram/60 mL oral solution 15 g 1 06/11/2024 dextrose 15 gram/60 mL oral solution 30 g 1 06/11/2024 Glucagon HCl (rDNA) injection 1 mg 1 2023 insulin lispro injection 1-6 Units 1 2023 lidocaine-EPINEPHrine (PF) ( XYLOCAINE W/EPI) 1 %-1:200,000 injection 1 06/11/2024 phenylephrine (JAXON-SYNEPHRIN E) 20 mg/250 mL (80 mcg/mL) infusion - ADS Override Pull 1 06/11/2024 thrombin (THROMBIN-JMI) topical solution 1 06/11/2024 acetaminophen (TYLENOL) tablet 1,000 mg 1 1 08/11/2023 acetaminophen (TYLENOL) tablet 975 mg 1 doxepin (SINEquan) capsule 75 mg 1 06/10/20 24 DULoxetine (CYMBALTA) DR capsule 60 mg 1 famotidine (PEPCID) tablet 20 mg 1 06/10/20 gabapentin (NEURONTIN) capsule 100 mg 1 hydrALAZINE (APRESOLINE) tablet 50 mg 1 methylPREDNISolone (MEDROL) tablet 4 mg 3 1 08/11/2023 metoprolol succinate (TOPROL -XL) 24 Hour tablet 25 mg 1 06/10/2024 metoprolol tartrate (LOPRESS OR) tablet 25 mg 1 06/10/2024 saliva substitute (BIOTENE D RY MOUTH) liquid 1 spray 2 06/10/2024 senna-docusate (PERICOLACE) 8.6-50 mg per tablet 1 tablet 1 06/10/2024 sodium chloride 0.9 % flush 10 mL 1 024 triamterene-hydroCHLOROthiaz sharifa (DYAZIDE) 37.5-25 mg per capsule 1 capsule 1 06/10/2024 valsartan (DIOVAN) tablet 320 mg 1 06/10/20 Lab Orders Without Results Count Last Ordered D ate First Ordered Date POCT GLUCOSE, BLOOD 42 06/25/2024 06/11/20 24 Consult Count Last Ordered Date First Orde red Date IP CONSULT TO PHYSICAL MEDICINE REHAB 1 07/2024 IP CONSULT TO SPIRITUAL CARE 2 06/18/2024 06/11/2024 IP CONSULT TO HOSPITALIST 1 06/17/2024 IP CONSULT TO PSYCHIATRY 1 06/17/2024 Admission Count Last Ordered Date First Orde red Date ADMIT TO INPATIENT 2 06/11/2024 Transfer Count Last Ordered Date First Orde red Date TRANSFER PATIENT TO NEW UNIT 1 06/14/2024 Discharge Count Last Ordered Date First Orde red Date DISCHARGE PATIENT 1 06/25/2024 documented in this encounter Additional Health Concerns Assessment Noted Time PHQ-9 Depression Total Score: 1 05/31/20 9:32 AM EST documented as of this encounter Care Teams Anodic Operator Relationship Specialty Start Date End Date Solis Roman MD [address] [place] [address] PCP - General Internal Medicine 05/10/24 06/26/24 documented as of this encounter
--- OUTSIDE RECORDS SUMMARY | 2024-07-24 07:42 | XMS_ITS | Encounter Summary ---
Author Organization [facility] Address [address] [place] [address] Care Team Providers Care Supervisor [employer] Name Role Phone Solis Roman MD Primary Care Provider Reason for Visit * Reason Onset Date Comments Follow up 06/27/2024 Encounter Details Date Type Department Care Team (Late st Contact Info) Description 06/27/2024 Telephone [facility] [place] [address] [place] [address] Geovanna Syed, RN Follow up Social History Tobacco Use Types Packs/Day Years [...] as of this encounter Progress Notes * Geovanna Syed RN - 06/27/2024 2:42 PM [facility]. [facility] patient's ronald removedat their facility due to the long drive. Dr. Hall okay with this. 6 week post op follow up scheduled in [place]. X-rays to be ordered to [facility]. documented in this encounter Plan of Treatment Upcoming Encounters Date Type Department Care Team (Late st Contact Info) Description 08/06/2024 1:00 PM EST Office Visit Neurosurgery [address] [place] [address] Ramirez Hall MD [address] [facility] [address] [place] [address] documented as of this encounter Visit Diagnoses Not on filedocumented in this encounter Additional Health Concerns Assessment Noted Time PHQ-9 Depression Total Score: 1 06/26/19 25 12:14 PM EST documented as of this encounter Care Teams Supervisor [employer] Relationship Specialty Start Date End Date Solis Roman MD [address] [place] [address] PCP - General Internal Medicine 06/27/24 documented as of this encounter
[2024-07-24 07:44] LABS: Appearance Urine Cloudy; Color Urine Dark Yellow; Glucose Urine UA Negative (Negative); Leukocyte Esterase Urine Trace (Negative); Nitrite Urine Negative (Negative); UMIC TRIGGER UACC YES; Urine Blood Negative (Negative); Urine Ketones Negative (Negative); Urine Protein 300 (3+) mg/dL (Neg-Trace)
[2024-07-24 07:48] LABS: Alkaline Phosphatase 188 U/L (39-117); Troponin-I High Sensitivity 102.4 ng/L (<3.5-17.0)
[2024-07-24 07:56] LABS: Amphetamine Screen Urine Not Detected (Not Detect); Barbiturates, Urine Not Detected (Not Detect); Benzodiazepines Screen Urine POSITIVE (Not Detect); Buprenorphine Scr Not Detected (Not Detect); Cannabinoid Screen Urine Not Detected (Not Detect); Cocaine Screen Urine Not Detected (Not Detect); Fentanyl, urine Not Detected (Not Detect); Methadone Screen, Urine Not Detected (Not Detect); Opiate Screen Urine POSITIVE (Not Detect); Oxycodone Screen Urine Positive (Not Detect); Phencyclidine Screen Urine Not Detected (Not Detect)
[2024-07-24 07:58] LABS: Bacteria Urine 2+ (None Seen); Squamous Epithelial Cell Urine 0-2 /HPF (0-2); WBC Urine 0-5 /HPF (0-5)
[2024-07-24 08:02] LABS: Influenza A PCR NEGATIVE (Negative); Influenza B PCR NEGATIVE (Negative); Resp Syncy Virus RNA Qual PCR NEGATIVE (Negative); SARS COV2 PCR INHOUSE NEGATIVE (Negative)
[2024-07-24 08:03] LABS: TSH reflex Free T4 1.75 uIU/mL (0.32-4.0)
--- NOTE | 2024-07-24 08:37 | PC.NURSE ---
Assumed care of patient at 0700. Patient difficult to obtain labs from. Provider called to bedside to place EJ. Labs / cultures obtained. Fluids infusing through 20g in right wrist. Rectal probe placed. Varma cath in place with 200mls dark yellow urine for output. Patient pale and hypotensive. Provider aware sating to have 2000mls of fluid infuse and then start nor epi if BP still low. Patient with decreasing BP despite fluids running. MD aware and at bedside to assess patient- stating to start nor epi. Nor epi started per protocol. Patient stating she was dizzy and had a headache with episode of bradycardia. Provider at bedside to place central line. Patient arrived from facility with [facility] stating DNR/ DNI. Patient unresponsive, faint femoral pulse felt. x 1 dose of epi given with no improvement. Patient bradycardic , no femoral pulse felt. [facility] form honored. Sister notified by
--- NOTE | 2024-07-24 08:41 | PC.NURSE ---
from facility: HCP #1 Isabel Streeter [phone] #2 Clare Leslie [phone]
[2024-07-24 08:52] LABS: Glucose, Whole Blood 97 mg/dL (60-115)
--- NOTE | 2024-07-24 09:03 | PC.NURSE ---
[facility] [employer] [facility] contacted regarding pt ; pt declined due to health history; this RN spoke with [facility] and case reference number is [id number]
[2024-07-24 09:16] LABS: Reflex Lactate? Lactic Acid Added
--- NOTE | 2024-07-24 09:17 | PHA.MEDREC ---
Pharmacy Consult ? Medication Reconciliation Pharmacy has completed the medication reconciliation. Received med list from [facility], notable changes from previous fills include: Gabapentin 800mg is now 200mg BID, Valsartan 320mg is now 40mg DAILY, Trazadone is now 75mg at bedtime, there was no record of the patient receiving Hydralazine, Metoprolol, Trimamterene-HCTZ, or Cevimeline at the facility so these were removed, as last fill date was >3months ago.
== END 2024-07-24 12:36 | disposition expired ==
PROVIDERS: Emergency Medicine; Emergency Provider Emergency Medicine; PCP Student in an Organized Health Care Education/Training Program
DX: I46.9 Cardiac arrest, cause unspecified (principal); R60.0 Localized edema; R41.0 Disorientation, unspecified; I95.9 Hypotension, unspecified; R00.1 Bradycardia, unspecified; R06.02 Shortness of breath; Z03.818 Encounter for observation for suspected exposure to other biological agents ruled out; Z79.899 Other long term (current) drug therapy; Z51.81 Encounter for therapeutic drug level monitoring
CPT/HCPCS: 0241U; 36415; 51701; 71045; 80048; 80076; 80307; 81001; 82803; 82947; 83605; 83735; 83880; 84443; 84484; 85025; 85610; 86140; 87040; 93005; 96365; 96367; 99284; 99285; J0171; J2543

== ENCOUNTER → 2024-07-24 06:21 | Outpatient (BNV) | payer OTHER, SELFPAY | PROVIDERS: Emergency Provider Emergency Medicine; Visit Provider Radiology Diagnostic Radiology | DX: R53.1 Weakness (principal) | CPT/HCPCS: 71045 ==